=== PATIENT | female | born 1960 | race Caucasian/White ===

== ENCOUNTER 2020-09-08 10:00 | Outpatient (REF) | payer OTHER, SELFPAY ==
[2020-09-08 11:00] LABS: MANUAL DIFF FLAG NO
[2020-09-08 11:03] LABS: Basophils Absolute Auto 0.1 X10*3/uL (0.0-0.2); Basophils Percent Auto 1.3 % (0-2); Eosinophils Absolute Auto 0.6 X10*3/uL (0.0-0.4); Eosinophils Percent Auto 11.8 % (0-4); Hematocrit 38.9 % (37-47); Hemoglobin 12.1 g/dl (12.0-16.0); Imm Gran Abs Auto 0.04 X10*3/uL (0.00-0.03); Imm Gran Pct Auto 0.7 % (0.0-0.4); Lymphocytes Absolute Auto 1.2 X10*3/uL (1.2-4.9); Lymphocytes Percent Auto 22.1 % (20-40); Mean Corpuscular HGB Conc 31.1 g/dl (31.0-35.0); Mean Corpuscular Hemoglobin 29.2 pg (27.0-33.0); Mean Corpuscular Volume 93.7 fL (80-98); Mean Platelet Volume 9.7 fL (9.4-12.3); Monocytes Absolute Auto 0.4 X10*3/uL (0.1-1.2); Monocytes Percent Auto 7.7 % (2-11); Neutrophils Absolute Auto 3.1 X10*3/uL (2.0-8.3); Neutrophils Percent Auto 56.4 % (45-73); Platelet Count 312 X10*3/uL (160-400); Red Blood Count 4.15 X10*6/uL (4.20-5.50); Red Cell Distribution Width 14.2 % (11.0-16.0); White Blood Count 5.4 X10*3/uL (4.8-10.8)
[2020-09-08 11:34] LABS: Alanine Aminotransferase 19 U/L (0-31); Albumin Level 3.9 g/dL (3.5-5.0); Alkaline Phosphatase 103 U/L (39-117); Anion Gap 14 (12-20); Aspartate Amino Transferase 22 U/L (5-31); Bilirubin Total 0.3 mg/dL (0.0-1.0); Blood Urea Nitrogen 9 mg/dL (9-16); Calcium 9.2 mg/dL (8.4-10.2); Carbon Dioxide 28 mmol/L (22-29); Chloride 104 mmol/L (96-108); Cholesterol 198 mg/dL; Estimated Glomerular Filt Rate > 60; Glucose Fasting 119 mg/dL (60-99); HDL Cholesterol 44 mg/dL; LDL Cholesterol Calculated 127 mg/dl; Potassium 4.6 mmol/l (3.3-5.1); Sodium 141 mmol/L (135-145); Total Protein 6.5 g/dL (6.5-8.0); Triglycerides 135 mg/dL
[2020-09-08 12:29] LABS: TSH reflex Free T4 0.95 mIU/mL (0.32-4.0)
== END 2020-09-08 10:01 | disposition home or self-care (01) ==
LOC: HO.LAB 10:00
PROVIDERS: PCP Internal Medicine; Visit Provider Internal Medicine
DX: J44.9 Chronic obstructive pulmonary disease, unspecified (principal); E03.9 Hypothyroidism, unspecified; E66.9 Obesity, unspecified
CPT/HCPCS: 36415; 80053; 80061; 84443; 85025

== ENCOUNTER 2020-09-17 10:27 | Emergency (ER) | payer OTHER, SELFPAY ==
--- NOTE | 2020-09-17 10:38 | XR_ITS ---
EXAMINATION: XR CHEST CLINICAL INFORMATION: Dyspnea COMPARISON: Chest radiographs from 07/13/2019 through 04/01/2020. TECHNIQUE: Frontal view of the chest was obtained. FINDINGS: Exam limited due to body habitus and technique. View of the chest is slightly lordotic. The heart is top normal in size. The cardiomediastinal and hilar contours are within normal limits. There is no lobar consolidation. No large pneumothorax or pleural effusion. There is is subtly increased bandlike opacity over the right midlung and a subtle opacity at the base of the left lower lobe, possibly infiltrate. XR/XR chest 1V IMPRESSION: Limited examination due to body habitus and technique. Subtle opacities involving the mid right lung and base of the left lobe could potentially represent infection or inflammation in the appropriate clinical setting. No large effusion or pneumothorax.
--- NOTE | 2020-09-17 10:39 | ED.SOB ---
HPI - SOB/Dyspnea General Chief Complaint: Dyspnea Stated Complaint: flu like symptoms Time Seen by Provider: 09/17/20 10:37 Source: patient, EMS and chiropractic doctor Mode of arrival: EMS Limitations: no limitations History of Present Illness MD elicited complaint: shortness of breath and cough Pertinent past history: COPD and asthma Onset (ago): day(s) (yesterday) Timing: constant Severity: moderate Exacerbating factors: exertion and coughing Relieving factors: rest and bronchodilators Known history of: COPD and asthma Associated symptoms: cough, wheezing and other (body aches) Treatment prior to arrival: oxygen Related Data Home oxygen amount: 2 liters Home Medications Medication Instructions Recorded Confirmed ipratropium 0.5 mg-albuterol 3 mg 3 ml INHALATION Q4-6H PRN 08/24/20 08/24/20 (2.5 mg base)/3 mL nebulization soln oxygen-air delivery systems #1 08/24/20 08/24/20 Previous Rx's Medication Instructions Recorded propylene glycol 0.6 % eye drops 1 drp OPHTHALMIC (EYE) BID PRN 30 08/24/20 Days #5 ml Synthroid 50 mcg tablet 50 mcg PO DAILY 90 Days #90 tab NS 08/25/20 albuterol sulfate 90 mcg/actuation 2 puff INHALATION Q4-6H PRN 30 08/25/20 aerosol inhaler Days #6.7 g amitriptyline 50 mg tablet 50 mg PO BID 90 Days #180 tab 08/25/20 budesonide 0.5 mg/2 mL suspension 0.5 mg INHALATION DAILY 30 Days 08/25/20 for nebulization #60 ml fluticasone furoate 200 1 inh INHALATION DAILY 30 Days #28 08/25/20 mcg-vilanterol 25 mcg/dose ea inhalation powder montelukast 10 mg tablet 10 mg PO DAILY 90 Days #90 tab 08/25/20 clonazepam 2 mg tablet 2 mg PO DAILY 30 Days #30 tab 08/26/20 lamotrigine 200 mg tablet 200 mg PO BID 30 Days #60 tab 08/26/20 pantoprazole 40 mg tablet,delayed 40 mg PO BID 90 Days #180 tab 08/26/20 release zolpidem 10 mg tablet 10 mg PO BEDTIME PRN 30 Days #30 08/26/20 tab cefuroxime axetil 500 mg PO BID 7 Days #14 tab 09/17/20 doxycycline hyclate 100 mg PO BID 7 Days #14 cap 09/17/20 prednisone 40 mg PO DAILY 5 Days #10 tab 09/17/20 Allergies Allergy/AdvReac Type Severity Reaction Status Date / Time No Known Allergies Allergy Unverified 07/16/20 19:43 [No Known Allergies*] unknown analgesia given Allergy Unknown rash Uncoded 08/24/20 15:25 antihi Review of Systems Review of Systems: Constitutional : No Fever, pos Chills ENT/Mouth : No sore throat, No Rhinorrhea, No Swallowing Difficulty Eyes: No Eye Pain, No Swelling, No Redness Cardiovascular : No Chest Pain, positive SOB, No Orthopnea, no Edema Respiratory : pos Cough, No Sputum, pos Wheezing, positive dyspnea Gastrointestinal : No Nausea, No Vomiting, No Diarrhea, No abdominal Pain, No Hematochezia, No Melena Genitourinary : No Dysuria, No Urinary Frequency, No Hematuria Musculoskeletal : No joint pain, No Myalgias Skin : No Skin Lesions, No rash Neuro : No Weakness, No Numbness, No Dizziness, No Headache Psych : No Anxiety/Panic, No Depression Heme/Lymph: No Bruising, No Lymphadenopathy Endocrine : No Polyuria, No Polydipsia All other systems reviewed and are negative PMFSH Past Medical History Attestation statement: The following information was validated with the patient. Medical History Bipolar 1 disorder COPD (chronic obstructive pulmonary disease) Depression with anxiety GERD (gastroesophageal reflux disease) Hemangioma Hypothyroidism Hypovitaminosis D Insomnia Lumbar degenerative disc disease Obesity Oxygen dependent Surgical History History of carpal tunnel release History of section History of colonoscopy History of cystocele History of hysterectomy History of shoulder surgery History of tonsillectomy Family History Family History (Updated 08/24/20 @ 09:32 by ADRIANA Sanches) Father No problems noted. Mother No problems noted. Sister Nasopharyngeal cancer Social History Social History Smoking Status: Former smoker Tobacco Type: Cigarette Advance Directives: No Advance Directives Information Provided: Yes Physical Exam Vital Signs: Vital Signs: Last Vital Signs Temp 98.6 F 09/17/20 10:41 Pulse 106 H 09/17/20 10:58 Resp 18 09/17/20 10:41 BP 111/71 09/17/20 10:41 Pulse Ox 100 09/17/20 10:41 Body Mass Index 46.6 Appearance: Alert. Oriented X3. No acute distress. Eyes: Pupils equal, round and reactive to light. ENT: Pharynx normal. Neck: Normal inspection. Neck supple. CVS: Normal heart rate and rhythm. Pulses normal. Respiratory: No respiratory distress. Breath sounds diminished Abdomen: Soft and nontender. Skin: Skin warm and dry. Normal skin color. Normal skin turgor. Extremities: No lower extremity edema. No calf ttp Neuro: Oriented X 3. No motor deficit. No sensory deficit. Course Course Course Narrative: no hypoxia, negative lactic acid, no resp distress, start on antibiotics and DC home with steroids MDM - SOB/Dyspnea MDM Narrative Medical decision making narrative: 60 yo female with hx of COPD on home O2 100% on baseline O2 - here with cough, body aches, not feeling well x 1 day at this time will need labs, steroids, neb, CXR, COVID swab, dispo per results and findings, no resp distress, no increaed O2 requirement. Lab Data Result diagrams: 09/17/20 11:49 09/17/20 11:49 Labs: Lab Results 09/17/20 09/17/20 09/17/20 Range/Units 11:40 11:48 11:48 WBC (4.8-10.8) X10*3/uL RBC (4.20-5.50) X10*6/uL Hgb (12.0-16.0) g/dl Hct (37-47) % MCV (80-98) fL MCH (27.0-33.0) pg MCHC (31.0-35.0) g/dl RDW (11.0-16.0) % Plt Count (160-400) X10*3/uL MPV (9.4-12.3) fL Immature Gran % (Auto) (0.0-0.4) % Neut % (Auto) (45-73) % Lymph % (Auto) (20-40) % [place] % (Auto) (2-11) % Eos % (Auto) (0-4) % Baso % (Auto) (0-2) % Lymph # (Auto) (1.2-4.9) X10*3/uL [place] # (Auto) (0.1-1.2) X10*3/uL Eos # (Auto) (0.0-0.4) X10*3/uL Baso # (Auto) (0.0-0.2) X10*3/uL Abs Immat Gran (auto) (0.00-0.03) X10*3/uL Absolute Neuts (auto) (2.0-8.3) X10*3/uL Absolute Nucleated RBC (0.0-0.012) X10*3/uL Nucleated RBC % (auto) (0.0-0.2) /100WBC Hold Blue Top SEE NOTE Sodium (135-145) mmol/L Potassium (3.3-5.1) mmol/l Chloride (96-108) mmol/L Carbon Dioxide (22-29) mmol/L Anion Gap (12-20) BUN (9-16) mg/dL Creatinine (0.5-1.4) mg/dL Estim Creat Clear Calc Estimated GFR Random Glucose (60-115) mg/dL Lactic Acid (0.5-2.0) mmol/L Calcium (8.4-10.2) mg/dL Magnesium 2.0 (1.6-2.6) mg/dL Total Bilirubin < 0.2 (0.0-1.0) mg/dL Direct Bilirubin < 0.2 (0.0-0.5) mg/dL AST 16 (5-31) U/L ALT 16 (0-31) U/L Alkaline Phosphatase 104 (39-117) U/L Troponin I High Sens (<3.5-17.0) ng/L Total Protein 6.5 (6.5-8.0) g/dL Albumin 3.9 (3.5-5.0) g/dL Lipase 25 (8-78) U/L Coronavirus (PCR) NEGATIVE (Negative) Influenza Type A (PCR) NEGATIVE (Negative) Influenza Type B (PCR) NEGATIVE (Negative) RSV RNA Qual (PCR) NEGATIVE (Negative) 09/17/20 09/17/20 09/17/20 Range/Units 11:48 11:48 11:49 WBC 6.1 (4.8-10.8) X10*3/uL RBC 4.20 (4.20-5.50) X10*6/uL Hgb 12.1 (12.0-16.0) g/dl Hct 39.8 (37-47) % MCV 94.8 (80-98) fL MCH 28.8 (27.0-33.0) pg MCHC 30.4 L (31.0-35.0) g/dl RDW 14.3 (11.0-16.0) % Plt Count 287 (160-400) X10*3/uL MPV 9.4 (9.4-12.3) fL Immature Gran % (Auto) 0.7 H (0.0-0.4) % Neut % (Auto) 58.4 (45-73) % Lymph % (Auto) 22.8 (20-40) % [place] % (Auto) 6.7 (2-11) % Eos % (Auto) 10.3 H (0-4) % Baso % (Auto) 1.1 (0-2) % Lymph # (Auto) 1.4 (1.2-4.9) X10*3/uL [place] # (Auto) 0.4 (0.1-1.2) X10*3/uL Eos # (Auto) 0.6 H (0.0-0.4) X10*3/uL Baso # (Auto) 0.1 (0.0-0.2) X10*3/uL Abs Immat Gran (auto) 0.04 H (0.00-0.03) X10*3/uL Absolute Neuts (auto) 3.6 (2.0-8.3) X10*3/uL Absolute Nucleated RBC 0.000 (0.0-0.012) X10*3/uL Nucleated RBC % (auto) 0.0 (0.0-0.2) /100WBC Hold Blue Top Sodium (135-145) mmol/L Potassium (3.3-5.1) mmol/l Chloride (96-108) mmol/L Carbon Dioxide (22-29) mmol/L Anion Gap (12-20) BUN (9-16) mg/dL Creatinine (0.5-1.4) mg/dL Estim Creat Clear Calc Estimated GFR Random Glucose (60-115) mg/dL Lactic Acid 2.0 (0.5-2.0) mmol/L Calcium (8.4-10.2) mg/dL Magnesium (1.6-2.6) mg/dL Total Bilirubin (0.0-1.0) mg/dL Direct Bilirubin (0.0-0.5) mg/dL AST (5-31) U/L ALT (0-31) U/L Alkaline Phosphatase (39-117) U/L Troponin I High Sens < 3.5 (<3.5-17.0) ng/L Total Protein (6.5-8.0) g/dL Albumin (3.5-5.0) g/dL Lipase (8-78) U/L Coronavirus (PCR) (Negative) Influenza Type A (PCR) (Negative) Influenza Type B (PCR) (Negative) RSV RNA Qual (PCR) (Negative) 09/17/20 Range/Units 11:49 WBC (4.8-10.8) X10*3/uL RBC (4.20-5.50) X10*6/uL Hgb (12.0-16.0) g/dl Hct (37-47) % MCV (80-98) fL MCH (27.0-33.0) pg MCHC (31.0-35.0) g/dl RDW (11.0-16.0) % Plt Count (160-400) X10*3/uL MPV (9.4-12.3) fL Immature Gran % (Auto) (0.0-0.4) % Neut % (Auto) (45-73) % Lymph % (Auto) (20-40) % [place] % (Auto) (2-11) % Eos % (Auto) (0-4) % Baso % (Auto) (0-2) % Lymph # (Auto) (1.2-4.9) X10*3/uL [place] # (Auto) (0.1-1.2) X10*3/uL Eos # (Auto) (0.0-0.4) X10*3/uL Baso # (Auto) (0.0-0.2) X10*3/uL Abs Immat Gran (auto) (0.00-0.03) X10*3/uL Absolute Neuts (auto) (2.0-8.3) X10*3/uL Absolute Nucleated RBC (0.0-0.012) X10*3/uL Nucleated RBC % (auto) (0.0-0.2) /100WBC Hold Blue Top Sodium 142 (135-145) mmol/L Potassium 4.5 (3.3-5.1) mmol/l Chloride 106 (96-108) mmol/L Carbon Dioxide 30 H (22-29) mmol/L Anion Gap 11 L (12-20) BUN 12 (9-16) mg/dL Creatinine 0.90 (0.5-1.4) mg/dL Estim Creat Clear Calc 75.1 Estimated GFR > 60 Random Glucose 120 H (60-115) mg/dL Lactic Acid (0.5-2.0) mmol/L Calcium 9.0 (8.4-10.2) mg/dL Magnesium (1.6-2.6) mg/dL Total Bilirubin (0.0-1.0) mg/dL Direct Bilirubin (0.0-0.5) mg/dL AST (5-31) U/L ALT (0-31) U/L Alkaline Phosphatase (39-117) U/L Troponin I High Sens (<3.5-17.0) ng/L Total Protein (6.5-8.0) g/dL Albumin (3.5-5.0) g/dL Lipase (8-78) U/L Coronavirus (PCR) (Negative) Influenza Type A (PCR) (Negative) Influenza Type B (PCR) (Negative) RSV RNA Qual (PCR) (Negative) Discharge Plan Discharge Clinical Impression: COPD (chronic obstructive pulmonary disease) Qualifiers: COPD type: COPD with acute exacerbation Qualified Code(s): J44.1 - Chronic obstructive pulmonary disease with (acute) exacerbation Pneumonia Qualifiers: Pneumonia type: due to unspecified organism Laterality: unspecified laterality Lung location: unspecified part of lung Qualified Code(s): J18.9 - Pneumonia, unspecified organism Patient Disposition: Home, Self-Care Instructions: COPD (Chronic Obstructive Pulmonary Disease) (ED), Bacterial Pneumonia (ED) Additional Instructions: return to ED for any worsening symptoms or concerns COVID test was NEGATIVE Prescriptions: New prednisone 20 mg tablet 40 mg PO DAILY 5 Days Qty: 10 RF: 0 doxycycline hyclate 100 mg capsule 100 mg PO BID 7 Days Qty: 14 RF: 0 cefuroxime axetil 500 mg tablet 500 mg PO BID 7 Days Qty: 14 RF: 0 No Action albuterol sulfate 90 mcg/actuation HFA aerosol inhaler 2 puff inhalation Q4-6H PRN (Reason: bronchospasm) 30 Days Qty: 6.7 RF: 11 amitriptyline 50 mg tablet 50 mg PO BID 90 Days Qty: 180 RF: 3 budesonide [Pulmicort] 0.5 mg/2 mL suspension for nebulization 0.5 mg inhalation DAILY 30 Days Qty: 60 RF: 11 Breo Ellipta 200-25 mcg/dose blister with device 1 inh inhalation DAILY 30 Days Qty: 28 RF: 11 montelukast [Singulair] 10 mg tablet 10 mg PO DAILY 90 Days Qty: 90 RF: 3 levothyroxine [Synthroid] 50 mcg tablet 50 mcg PO DAILY 90 Days Qty: 90 RF: 1 zolpidem [Ambien] 10 mg tablet 10 mg PO BEDTIME PRN (Reason: sleep) 30 Days Qty: 30 RF: 0 lamotrigine [Lamictal] 200 mg tablet 200 mg PO BID 30 Days Qty: 60 RF: 11 clonazepam 2 mg tablet 2 mg PO DAILY 30 Days Qty: 30 RF: 0 pantoprazole [Protonix] 40 mg tablet,delayed release (DR/EC) 40 mg PO BID 90 Days Qty: 180 RF: 3 (DME) oxygen-air delivery systems Device See Rx Instructions .ROUTE .MEDSUPPLY Qty: 1 RF: 0 ipratropium-albuterol 0.5 mg-3 mg(2.5 mg base)/3 mL solution for nebulization 3 ml inhalation Q4-6H PRNRF: 0 Systane Complete 0.6 % drops 1 drp ophthalmic (eye) BID PRN (Reason: dry eye(s)) 30 Days Qty: 5 RF: 11 Referrals: Physician,Unknown [Primary Care Provider] - 2 days (if not better) Print Language: Upper Sorbian
[2020-09-17 10:41] VITALS: BP 111/71; BP 122/80; PULSE 97; RESP 18; TEMP 37; O2SAT 100; O2SAT 98; BMI 46.6
[2020-09-17] MEDS: Albuterol Sulfate (0.083%) 2.5 MG/3 ML VIAL.NEB 5 MG INHALE (10:57)
[2020-09-17 10:58] VITALS: PULSE 106; O2SAT 100
[2020-09-17 11:57] LABS: MANUAL DIFF FLAG NO
[2020-09-17 12:00] LABS: Basophils Absolute Auto 0.1 X10*3/uL (0.0-0.2); Basophils Percent Auto 1.1 % (0-2); Eosinophils Absolute Auto 0.6 X10*3/uL (0.0-0.4); Eosinophils Percent Auto 10.3 % (0-4); Hematocrit 39.8 % (37-47); Hemoglobin 12.1 g/dl (12.0-16.0); Imm Gran Abs Auto 0.04 X10*3/uL (0.00-0.03); Imm Gran Pct Auto 0.7 % (0.0-0.4); Lymphocytes Absolute Auto 1.4 X10*3/uL (1.2-4.9); Lymphocytes Percent Auto 22.8 % (20-40); Mean Corpuscular HGB Conc 30.4 g/dl (31.0-35.0); Mean Corpuscular Hemoglobin 28.8 pg (27.0-33.0); Mean Corpuscular Volume 94.8 fL (80-98); Mean Platelet Volume 9.4 fL (9.4-12.3); Monocytes Absolute Auto 0.4 X10*3/uL (0.1-1.2); Monocytes Percent Auto 6.7 % (2-11); Neutrophils Absolute Auto 3.6 X10*3/uL (2.0-8.3); Neutrophils Percent Auto 58.4 % (45-73); Platelet Count 287 X10*3/uL (160-400); Red Cell Distribution Width 14.3 % (11.0-16.0); White Blood Count 6.1 X10*3/uL (4.8-10.8)
[2020-09-17 12:26] LABS: Anion Gap 11 (12-20); Blood Urea Nitrogen 12 mg/dL (9-16); Carbon Dioxide 30 mmol/L (22-29); Chloride 106 mmol/L (96-108); Creatinine Clr Calc Pharmacy 75.1; Estimated Glomerular Filt Rate > 60; Glucose Random 120 mg/dL (60-115); Potassium 4.5 mmol/l (3.3-5.1); Sodium 142 mmol/L (135-145)
[2020-09-17 12:29] LABS: Alanine Aminotransferase 16 U/L (0-31); Albumin Level 3.9 g/dL (3.5-5.0); Alkaline Phosphatase 104 U/L (39-117); Aspartate Amino Transferase 16 U/L (5-31); Bilirubin Direct < 0.2 mg/dL (0.0-0.5); Bilirubin Total < 0.2 mg/dL (0.0-1.0); Lipase 25 U/L (8-78); Total Protein 6.5 g/dL (6.5-8.0)
[2020-09-17 12:31] LABS: Troponin-I High Sensitivity < 3.5 ng/L (<3.5-17.0)
[2020-09-17 12:40] LABS: Influenza A PCR NEGATIVE (Negative); Influenza B PCR NEGATIVE (Negative); Resp Syncy Virus RNA Qual PCR NEGATIVE (Negative); SARS COV2 PCR INHOUSE NEGATIVE (Negative)
[2020-09-17 13:50] VITALS: BP 122/88; PULSE 99; RESP 18; TEMP 37
--- NOTE | 2020-09-17 13:50 | PC.NURSE ---
per md, ok to discharge patient without administering meds. no IV access, tough stick.
[2020-09-17 14:35] LABS: B Type Natriuretic Peptide < 10 pg/mL (<100)
== END 2020-09-17 13:52 | disposition home or self-care (01) ==
PROVIDERS: Emergency Provider Emergency Medicine
DX: J18.9 Pneumonia, unspecified organism (principal); J44.1 Chronic obstructive pulmonary disease with (acute) exacerbation; R06.00 Dyspnea, unspecified; Z79.899 Other long term (current) drug therapy; Z20.828 Contact with and (suspected) exposure to other viral communicable diseases; Z87.891 Personal history of nicotine dependence
CPT/HCPCS: 0241U; 36415; 71045; 80048; 80076; 83605; 83690; 83735; 83880; 84484; 85025; 87040; 94640; 96365; 96375; 99284

== ENCOUNTER 2020-09-29 09:51 | Outpatient (REF) | payer OTHER, SELFPAY ==
--- NOTE | 2020-09-29 10:32 | XR_ITS ---
EXAMINATION: XR CHEST CLINICAL INFORMATION: Pneumonia. COMPARISON: Chest 09/17/2020 TECHNIQUE: 2 views of the chest were obtained. FINDINGS: No significant abnormality is noted involving the heart, lungs, mediastinum, bony thorax or soft tissues. XR/XR chest 2V IMPRESSION: Unremarkable chest examination.
[2020-09-29 11:20] LABS: Alanine Aminotransferase 20 U/L (0-31); Albumin Level 3.9 g/dL (3.5-5.0); Alkaline Phosphatase 101 U/L (39-117); Anion Gap 12 (12-20); Aspartate Amino Transferase 20 U/L (5-31); Bilirubin Total 0.4 mg/dL (0.0-1.0); Blood Urea Nitrogen 8 mg/dL (9-16); Calcium 9.3 mg/dL (8.4-10.2); Carbon Dioxide 30 mmol/L (22-29); Chloride 103 mmol/L (96-108); Cholesterol 192 mg/dL; Estimated Glomerular Filt Rate 55; Glucose Fasting 85 mg/dL (60-99); HDL Cholesterol 51 mg/dL; LDL Cholesterol Calculated 111 mg/dl; Potassium 4.6 mmol/l (3.3-5.1); Sodium 140 mmol/L (135-145); Total Protein 6.5 g/dL (6.5-8.0); Triglycerides 154 mg/dL
[2020-09-29 11:40] LABS: TSH reflex Free T4 0.87 mIU/mL (0.32-4.0)
[2020-10-03 14:07] LABS: Vitamin D 25-OH, D2 <4 ng/mL; Vitamin D 25-OH, D3 22 ng/mL; Vitamin D 25-OH, Total 22 ng/mL (30-100)
== END 2020-09-29 09:52 | disposition home or self-care (01) ==
LOC: HO.LAB 09:51
PROVIDERS: PCP Internal Medicine; Visit Provider Internal Medicine
DX: E03.9 Hypothyroidism, unspecified (principal); E66.9 Obesity, unspecified; E55.9 Vitamin D deficiency, unspecified; J18.9 Pneumonia, unspecified organism
CPT/HCPCS: 71046; 80053; 80061; 82306; 84443

== ENCOUNTER → 2020-10-12 13:29 | Outpatient (BNVA) | payer OTHER, SELFPAY | PROVIDERS: PCP Internal Medicine; Visit Provider Hospitalist | DX: J44.9 Chronic obstructive pulmonary disease, unspecified (principal); J45.909 Unspecified asthma, uncomplicated; D72.19 Other eosinophilia; Z99.81 Dependence on supplemental oxygen | CPT/HCPCS: 99212 ==

== ENCOUNTER → 2020-10-21 14:36 | Outpatient (REF) | payer OTHER, SELFPAY ==
--- NOTE | 2020-10-21 14:05 | ECG_ITS ---
Hook-up date: 2020-10-21 14:53:00 Duration: 47:59:00 Test Indications: TACHYCARDIA Medications: [id number] QRS complexes * Ventricular ectopics which represent % of total QRS comp. 8 Supraventricular ectopics which represent <1 % of total QRS comp. * Paced QRS complexs which represent % of total QRS comp. VENTRICULAR ECTOPY * Isolated * Bigeminal Cycles * Couplets * Runs * Beats in Runs * Beats LONGEST at * BPM at :: -- * Beats FASTEST at * BPM at :: -- SUPRAVENTRICULAR ECTOPY 8 Isolated 0 Couplets 0 Runs 0 Beats in Runs * Beats LONGEST at * BPM at :: -- * Beats FASTEST at * BPM at :: -- HEART RATES 94 MIN at 09:02:13 2020-10-23 107 AVG 134 MAX at 16:54:21 2020-10-22 LONGEST RR 0.6400 secs at 11:37:14 2020-10-23 S-T LEVELS Channel 1 - 128 mm at 14:53:00 2020-10-21 - 128 mm at 14:53:00 2020-10-21 Channel 2 - 128 mm at 14:53:00 2020-10-21 - 128 mm at 14:53:00 2020-10-21 Channel 3 - 128 mm at 03:41:21 -- - 128 mm at 03:41:21 Underlying rhythm is sinus; Average ventricular rate 107/min; range 94-134/min; About 87% of the time, ventricular rate >100/min; No significant ectopy, tachy or roger arrhythmias; Patient did not report any symptoms in the diary Referred By: Farideh Marquez Overread By: MONIK JUAREZ
== END ==
LOC: HO.CARD 14:36
PROVIDERS: PCP Internal Medicine; Visit Provider Internal Medicine
DX: R00.0 Tachycardia, unspecified (principal)
CPT/HCPCS: 93225; 93226

== ENCOUNTER 2020-11-05 18:39 | Outpatient (REF) | payer OTHER, SELFPAY ==
[2020-11-05 18:54] LABS: Glucose Urine UA NEG (NEG); Leukocyte Esterase Urine 1+ (NEG); Nitrite Urine NEG (NEG); PH 5.5 (5.0-8.0); Urine Blood 1+ (NEG); Urine Ketones NEG (NEG); Urine Protein NEG (NEG-TRACE)
[2020-11-05 18:58] LABS: Appearance Urine CLEAR; Color Urine YELLOW
[2020-11-05 19:13] LABS: Bacteria Urine TRACE /LPF; RBC Urine 0 /HPF (0); Squamous Epithelial Cell Urine 1+ /LPF
== END 2020-11-05 18:40 | disposition home or self-care (01) ==
LOC: HO.LNP 18:39
PROVIDERS: Visit Provider Internal Medicine
DX: R30.0 Dysuria (principal)
CPT/HCPCS: 81001; 87086

== ENCOUNTER → 2020-11-13 10:19 | Outpatient (BNVA) | payer OTHER, SELFPAY | PROVIDERS: PCP Internal Medicine; Visit Provider Urology | DX: N39.0 Urinary tract infection, site not specified (principal) | CPT/HCPCS: 81002; Q3014 ==

== ENCOUNTER 2020-11-16 14:16 | Outpatient (REF) | payer OTHER, SELFPAY ==
--- NOTE | 2020-11-16 14:24 | XR_ITS ---
EXAMINATION: XR CHEST CLINICAL INFORMATION: Shortness of breath COMPARISON: Previous chest x-ray September 2020 TECHNIQUE: 2 views of the chest were obtained. FINDINGS: The cardiac and mediastinal contours are stable. There is linear scarring or chronic subsegmental atelectasis at the left lung base that is stable. The lungs are otherwise clear. There is no pleural effusion or pneumothorax. There are degenerative changes of the spine. There is soft tissue calcification adjacent to the right humeral greater tuberosity. There are postsurgical changes left shoulder. XR/XR chest 2V IMPRESSION: No evidence for acute disease in the chest. Linear scarring or chronic subsegmental atelectasis at the left lung base similar to previous exam.
--- NOTE | 2020-11-16 14:24 | US_ITS ---
EXAMINATION: ULTRASOUND SOFT TISSUE HEAD AND NECK CLINICAL INFORMATION: Localized swelling, mass or lump COMPARISON: None TECHNIQUE: Grayscale and color imaging of the soft tissues of the neck in the submental region using a linear transducer FINDINGS: No lymphadenopathy or solid or cystic mass is appreciated. US/US soft tiss head and/or neck IMPRESSION: No abnormality appreciated by ultrasound
== END 2020-11-16 14:17 | disposition home or self-care (01) ==
LOC: HO.US 14:16
PROVIDERS: Visit Provider Internal Medicine
DX: R22.1 Localized swelling, mass and lump, neck (principal); R06.02 Shortness of breath
CPT/HCPCS: 71046; 76536

== ENCOUNTER 2020-11-17 09:36 | Outpatient (REF) | payer OTHER, SELFPAY ==
--- NOTE | 2020-11-17 | MM_ITS ---
EXAMINATION: MM SCREENING DIGITAL MAMMOGRAPHY, BILATERAL CLINICAL INFORMATION: Screening. Asymptomatic. The lifetime risk of breast cancer based on the Tyrer-Cuzick Model is 5.1%. COMPARISON: Mammography: November 12, 2019 TECHNIQUE: Digital mammography is performed in craniocaudal and mediolateral oblique views along with computer-aided detection (CAD). FINDINGS: The breasts are almost entirely fatty (ACR BI-RADS breast composition Category a). There are no significant masses, abnormal calcifications, or other abnormalities. MM/MM screening mammo BI IMPRESSION: There are no significant changes from prior study. ASSESSMENT: BI-RADS 1: Negative RECOMMENDATION: Routine annual mammography screening. This patient's information was entered into a reminder system with a target due date for their next mammogram.
== END 2020-11-17 09:37 | disposition home or self-care (01) ==
LOC: HO.MAMMO 09:36
PROVIDERS: Visit Provider Hospitalist
DX: Z12.31 Encounter for screening mammogram for malignant neoplasm of breast (principal)
CPT/HCPCS: 77067

== ENCOUNTER 2020-11-20 11:07 | Outpatient (REF) | payer OTHER, SELFPAY | END 2020-11-20 11:08 | disposition home or self-care (01) | LOC: HO.MDS 11:07 | PROVIDERS: PCP Internal Medicine; Visit Provider Hospitalist | DX: J45.50 Severe persistent asthma, uncomplicated (principal) | CPT/HCPCS: 96372; J0517 ==

== ENCOUNTER → 2020-11-24 09:57 | Outpatient (BNVA) | payer OTHER, SELFPAY | PROVIDERS: PCP Internal Medicine; Visit Provider Orthopaedic Surgery | DX: R10.13 Epigastric pain (principal); K59.01 Slow transit constipation; M65.331 Trigger finger, right middle finger; R20.0 Anesthesia of skin; R20.2 Paresthesia of skin | CPT/HCPCS: 20550; 99202; J1100; Q3014 ==

== ENCOUNTER 2020-12-08 10:07 | Outpatient (REF) | payer OTHER, SELFPAY ==
--- NOTE | ~2020-12-08 | XR_ITS ---
EXAMINATION: BILATERAL KNEES STANDING. THE RIGHT KNEE. LEFT SHOULDER. CLINICAL INFORMATION: Pain right knee and left shoulder. COMPARISON: None TECHNIQUE: AP bilateral knee 1 view. Right knee 2 views. Left shoulder 3 views. FINDINGS: On AP bilateral knee exam there is mild reduction in the medial and lateral compartment joint space both knees. No bony erosive changes seen. There is mild periapical spurring in the medial compartments. There is a dense bone islands in right proximal fibula. 2 views of the right knee there is loss in both patellofemoral compartment joint space with periarticular spurring. There is dense calcification in the infrapatellar soft tissue bursa. No abnormal joint effusion seen. No visible fracture seen. Left shoulder: There is moderate loss of lateral joint space with inferior moderate periapical spurring. Mild spurring of the left AC joint is noted. There is mild acromial inferior spurring as well. Postsurgical changes are seen along the left head of the humerus. The soft tissues are normal. XR/XR shoulder LT min 2V IMPRESSION: Mild degenerative arthritic changes in medial and lateral compartments with moderate periapical spurring in medial compartment. No abnormal joint effusion. Mild degenerative changes in the patellofemoral compartment right knee without loose bodies or joint effusion. There is infrapatellar superficial calcification likely calcific bursitis. Moderate degenerative changes left glenohumeral joint space and mild degenerative spurring left AC joint. No visible acute fracture seen.
--- NOTE | ~2020-12-08 | XR_ITS ---
EXAMINATION: BILATERAL KNEES STANDING. THE RIGHT KNEE. LEFT SHOULDER. CLINICAL INFORMATION: Pain right knee and left shoulder. COMPARISON: None TECHNIQUE: AP bilateral knee 1 view. Right knee 2 views. Left shoulder 3 views. FINDINGS: On AP bilateral knee exam there is mild reduction in the medial and lateral compartment joint space both knees. No bony erosive changes seen. There is mild periapical spurring in the medial compartments. There is a dense bone islands in right proximal fibula. 2 views of the right knee there is loss in both patellofemoral compartment joint space with periarticular spurring. There is dense calcification in the infrapatellar soft tissue bursa. No abnormal joint effusion seen. No visible fracture seen. Left shoulder: There is moderate loss of lateral joint space with inferior moderate periapical spurring. Mild spurring of the left AC joint is noted. There is mild acromial inferior spurring as well. Postsurgical changes are seen along the left head of the humerus. The soft tissues are normal. XR/XR knee RT 2V IMPRESSION: Mild degenerative arthritic changes in medial and lateral compartments with moderate periapical spurring in medial compartment. No abnormal joint effusion. Mild degenerative changes in the patellofemoral compartment right knee without loose bodies or joint effusion. There is infrapatellar superficial calcification likely calcific bursitis. Moderate degenerative changes left glenohumeral joint space and mild degenerative spurring left AC joint. No visible acute fracture seen.
--- NOTE | ~2020-12-08 | XR_ITS ---
EXAMINATION: BILATERAL KNEES STANDING. THE RIGHT KNEE. LEFT SHOULDER. CLINICAL INFORMATION: Pain right knee and left shoulder. COMPARISON: None TECHNIQUE: AP bilateral knee 1 view. Right knee 2 views. Left shoulder 3 views. FINDINGS: On AP bilateral knee exam there is mild reduction in the medial and lateral compartment joint space both knees. No bony erosive changes seen. There is mild periapical spurring in the medial compartments. There is a dense bone islands in right proximal fibula. 2 views of the right knee there is loss in both patellofemoral compartment joint space with periarticular spurring. There is dense calcification in the infrapatellar soft tissue bursa. No abnormal joint effusion seen. No visible fracture seen. Left shoulder: There is moderate loss of lateral joint space with inferior moderate periapical spurring. Mild spurring of the left AC joint is noted. There is mild acromial inferior spurring as well. Postsurgical changes are seen along the left head of the humerus. The soft tissues are normal. XR/XR knee standing BI IMPRESSION: Mild degenerative arthritic changes in medial and lateral compartments with moderate periapical spurring in medial compartment. No abnormal joint effusion. Mild degenerative changes in the patellofemoral compartment right knee without loose bodies or joint effusion. There is infrapatellar superficial calcification likely calcific bursitis. Moderate degenerative changes left glenohumeral joint space and mild degenerative spurring left AC joint. No visible acute fracture seen.
== END 2020-12-08 10:08 | disposition home or self-care (01) ==
LOC: HO.HOSX 10:07
PROVIDERS: Visit Provider Orthopaedic Surgery
DX: M25.561 Pain in right knee (principal); M25.562 Pain in left knee; M25.512 Pain in left shoulder
CPT/HCPCS: 73030; 73560; 73565

== ENCOUNTER → 2020-12-09 10:45 | Outpatient (BNVA) | payer OTHER, SELFPAY | PROVIDERS: PCP Internal Medicine; Visit Provider Orthopaedic Surgery | DX: M17.11 Unilateral primary osteoarthritis, right knee (principal); M19.012 Primary osteoarthritis, left shoulder | CPT/HCPCS: 20610; 99202; J1040 ==

== ENCOUNTER → 2020-12-17 14:12 | Outpatient (BNVA) | payer OTHER, SELFPAY | PROVIDERS: PCP Internal Medicine; Visit Provider Hospitalist | DX: Z76.89 Persons encountering health services in other specified circumstances (principal) | CPT/HCPCS: Q3014 ==

== ENCOUNTER 2020-12-21 12:22 | Outpatient (REF) | payer OTHER, SELFPAY | END 2020-12-21 12:23 | disposition home or self-care (01) | LOC: HO.MDS 12:22 | PROVIDERS: PCP Internal Medicine; Visit Provider Hospitalist | DX: J45.50 Severe persistent asthma, uncomplicated (principal) | CPT/HCPCS: 96372; J0517 ==

== ENCOUNTER 2020-12-25 13:48 | Outpatient (REF) | payer OTHER, SELFPAY ==
--- NOTE | ~2020-12-25 | XR_ITS ---
EXAMINATION: XR CHEST CLINICAL INFORMATION: Shortness of breath with cough COMPARISON: November 16, 2020, September 29, 2020, and April 01, 2020. TECHNIQUE: 2 views of the chest were obtained. FINDINGS: There is linear scarring seen about the left base. No acute parenchymal disease, pneumothorax, or pleural effusion. Heart normal size. No evidence of pulmonary edema. Calcific tendinitis of the right shoulder is noted. Patient status post previous left shoulder pain with metallic anchor identified. XR/XR chest 2V IMPRESSION: No acute disease.
== END 2020-12-25 13:49 | disposition home or self-care (01) ==
LOC: HO.HMGCX 13:48
PROVIDERS: PCP Internal Medicine; Visit Provider Hospitalist
DX: R06.02 Shortness of breath (principal); R05 Cough
CPT/HCPCS: 71046

== ENCOUNTER → 2021-01-04 08:17 | Outpatient (REF) | payer OTHER, SELFPAY ==
--- NOTE | ~2021-01-04 | NM_ITS ---
PROCEDURE: [place] RADIONUCLIDE SOLID FOOD GASTRIC EMPTYING 4-HOUR STUDY CLINICAL INFORMATION: Early satiety. COMPARISON: None TECHNIQUE: A standard meal consisting of 4 oz of Egg Beaters brand tagged with 1 mCi Tc-99m Sulfur Colloid, 8 oz water and 2 slices of toast with jelly was administered orally to the patient. Images were obtained using a dual head gamma camera in the anterior and posterior projections over of the stomach immediately postingestion and at hourly intervals up to 4 hours post ingestion. The anterior and posterior counts at each time interval were averaged using the geometric mean and expressed as percentage of the immediate postingestion counts. FINDINGS: There is good visualization of activity in the stomach immediately postingestion. As the study progresses, there is good clearance of activity from the stomach and visualization of progressively increasing small bowel activity. By the end of the study, there is almost no retention noted in the stomach. Retention in the stomach at each time interval was: 1 hour 100% (normal 37%-90%) 2 hours 67% (normal 30%-60%) 3 hours 47% 4 hours 40% (normal 0%-10%) [place] gastric emptying study IMPRESSION: Abnormal solid food gastric emptying study.
== END ==
LOC: HO.NUCMED 08:17
PROVIDERS: Visit Provider Internal Medicine Gastroenterology
DX: R68.81 Early satiety (principal)
CPT/HCPCS: 78264; A9541

== ENCOUNTER 2021-01-07 17:01 | Emergency (ER) | payer OTHER, SELFPAY ==
--- NOTE | ~2021-01-07 | CT_ITS ---
EXAMINATION: CTA CHEST PE STUDY CLINICAL INFORMATION: covid + and tachy COMPARISON: No pertinent prior studies are available for comparison. TECHNIQUE: Prior to contrast administration, noncontrast localization images were obtained. After the administration of 70 mL of Omnipaque 350 IV contrast, contiguous thin slice helical images were obtained through the thorax. Reformatted MIP images in the coronal and sagittal planes were obtained at the acquisition workstation. This CT examination was performed using dose optimization techniques as appropriate, variously including the following: *Automated exposure control *Adjustment of mA and/or kV according to patient size (this includes techniques or standardized protocols for targeted exams where dose is matched to indication/reason for exam; i.e. extremities or head) *Use of iterative reconstruction technique DLP: 483 mGy-cm. FINDINGS: The bolus timing on this study was acceptable for visualization of the pulmonary arterial tree. There are no intraluminal pulmonary arterial filling defects present to suggest pulmonary embolism. Patchy bilateral airspace disease is seen consistent with underlying viral or atypical infectious etiology. Calcified granuloma noted at the right lung base.. No abnormal pulmonary nodules or masses are appreciated. No significant hilar or mediastinal adenopathy. There is no evidence of pleural effusion or pneumothorax. The heart is normal in size. No evidence of ventricular septal bowing or right heart strain. Great vessels are normal. Otherwise the mediastinum is unremarkable. There is no pericardial effusion or pericardial thickening. Limited evaluation of the upper abdominal viscera demonstrates fatty infiltration of the liver.. CT/CT angio chest PE protocol IMPRESSION: No evidence for pulmonary . Patchy bilateral airspace disease with groundglass peripheral predominance suggesting underlying viral or atypical infection. VTE: Negative
--- NOTE | ~2021-01-07 | XR_ITS ---
EXAMINATION: PORTABLE CHEST 1 VIEW CLINICAL INFORMATION: sob, cough . COMPARISON: 12/25/2020. TECHNIQUE: Portable frontal view of the chest was obtained. FINDINGS: Lungs mildly hypoexpanded with patchy bilateral airspace disease seen more so in the left upper lobe. Early infectious etiology would be suspected in the acute setting. No significant effusion, edema, or pneumothorax. Cardiac and mediastinal silhouettes within normal limits for size. Metallic hardware overlying the left humeral head again noted. XR/XR chest 1V IMPRESSION: Hypoexpanded lungs with patchy bilateral airspace disease seen more so in the left upper lobe. This is more than I would expect for atelectasis alone. Early infectious etiology would be suspected. Clinical correlation and follow-up chest x-ray may be helpful.
[2021-01-07 17:17] VITALS: BP 135/71; BP 136/75; PULSE 113; PULSE 120; RESP 20; TEMP 36.8; O2SAT 97; BMI 37.8
[2021-01-07 17:54] LABS: MANUAL DIFF FLAG NO
[2021-01-07 17:58] LABS: COVID-19 Test Positive (Negative)
[2021-01-07 18:17] LABS: Alanine Aminotransferase 20 U/L (0-31); Albumin Level 3.7 g/dL (3.5-5.0); Alkaline Phosphatase 100 U/L (39-117); Anion Gap 11 (12-20); Aspartate Amino Transferase 27 U/L (5-31); Bilirubin Total 0.3 mg/dL (0.0-1.0); Blood Urea Nitrogen 10 mg/dL (9-16); Carbon Dioxide 27 mmol/L (22-29); Chloride 104 mmol/L (96-108); Creatinine Clr Calc Pharmacy 73.8; Estimated Glomerular Filt Rate > 60; Glucose Random 113 mg/dL (60-115); Sodium 138 mmol/L (135-145); Total Protein 6.2 g/dL (6.5-8.0)
[2021-01-07 18:18] LABS: Basophils Percent Auto 0.2 % (0-2); Hematocrit 35.9 % (37-47); Hemoglobin 11.5 g/dl (12.0-16.0); Imm Gran Abs Auto 0.02 X10*3/uL (0.00-0.03); Imm Gran Pct Auto 0.3 % (0.0-0.4); Lymphocytes Absolute Auto 0.8 X10*3/uL (1.2-4.9); Mean Corpuscular Hemoglobin 29.2 pg (27.0-33.0); Mean Corpuscular Volume 91.1 fL (80-98); Mean Platelet Volume 9.5 fL (9.4-12.3); Monocytes Absolute Auto 0.3 X10*3/uL (0.1-1.2); Monocytes Percent Auto 4.2 % (2-11); Neutrophils Absolute Auto 5.3 X10*3/uL (2.0-8.3); Neutrophils Percent Auto 82.3 % (45-73); Platelet Count 238 X10*3/uL (160-400); Red Blood Count 3.94 X10*6/uL (4.20-5.50); Red Cell Distribution Width 14.6 % (11.0-16.0); White Blood Count 6.4 X10*3/uL (4.8-10.8)
[2021-01-07 18:44] VITALS: BP 145/109; PULSE 113; RESP 22; TEMP 37.8; O2SAT 100
--- NOTE | 2021-01-07 19:02 | ED.SOB ---
HPI - SOB/Dyspnea General Chief Complaint: Dyspnea Stated Complaint: COPD EXACERBATION Time Seen by Provider: 01/07/21 18:49 Source: patient Limitations: language barrier History of Present Illness HPI Narrative: Patient is a 60-year-old Nepali-speaking female with a past medical history of COPD on 2-3 L of oxygen at home, diabetes, lupus, tachycardia, obesity, GERD, hypothyroidism, depression, anxiety and that a degenerative disc disease presents with 2 weeks of shortness of breath and cough. Patient states 2 weeks ago she was diagnosed with bronchitis and given steroids and antibiotics. She states she took both medications in full but feels her shortness of breath is worsening. She denies fever, chills, nausea, vomiting, diarrhea, loss of sense of taste or loss of sense of smell. Patient states she checks her blood pressure and her oxygen and heart rate every day and when she has tachycardia, she takes metoprolol. Related Data Home Medications Medication Instructions Recorded Confirmed ipratropium 0.5 mg-albuterol 3 mg 3 ml INHALATION Q4-6H PRN 08/24/20 12/17/20 (2.5 mg base)/3 mL nebulization soln oxygen-air delivery systems #1 08/24/20 12/17/20 amitriptyline 100 mg tablet 100 mg PO BEDTIME 12/17/20 12/17/20 linaclotide 145 mcg capsule 145 mcg PO QAM 12/17/20 12/17/20 liraglutide 0.6 mg/0.1 mL (18 mg/3 mg SUBCUT 12/17/20 12/17/20 mL) subcutaneous pen injector doxycycline hyclate 100 mg tablet 100 mg PO BID 12/31/20 prednisone 20 mg tablet 20 mg PO BID 12/31/20 Previous Rx's Medication Instructions Recorded propylene glycol 0.6 % eye drops 1 drp OPHTHALMIC (EYE) BID PRN 30 08/24/20 Days #5 ml Synthroid 50 mcg tablet 50 mcg PO DAILY 90 Days #90 tab NS 08/25/20 amitriptyline 50 mg tablet 50 mg PO BID 90 Days #180 tab 08/25/20 budesonide 0.5 mg/2 mL suspension 0.5 mg INHALATION DAILY 30 Days 08/25/20 for nebulization #60 ml montelukast 10 mg tablet 10 mg PO DAILY 90 Days #90 tab 10/27/20 lamotrigine 200 mg tablet 200 mg PO BID 30 Days #60 tab 08/26/20 pantoprazole 40 mg tablet,delayed 40 mg PO BID 90 Days #180 tab 08/26/20 release blood-glucose meter #1 ea 09/22/20 bupropion HCl 300 mg 24 hr tablet, 300 mg PO QAM 90 Days #90 tab 09/22/20 extended release benralizumab 30 mg/mL subcutaneous See Rx Instructions SUBCUT 10/21/20 syringe .COMPLEX #1 syringe albuterol sulfate 90 mcg/actuation 2 puff INHALATION Q4-6H PRN 30 10/26/20 aerosol inhaler Days #6.7 g fluticasone furoate 200 1 inh INHALATION DAILY 30 Days #28 10/27/20 mcg-vilanterol 25 mcg/dose ea inhalation powder ciprofloxacin HCl 250 mg tablet 250 mg PO Q12H 7 Days #14 tab 11/05/20 ascorbic acid (vitamin C) 500 mg 0.5 g PO DAILY 90 Days #90 tab 11/13/20 tablet shower seat #1 ea 11/23/20 wheelchair #1 ea 11/23/20 cephalexin 750 mg capsule 750 mg PO BID 14 Days #28 cap 11/24/20 clonazepam 2 mg tablet 2 mg PO BEDTIME PRN 30 Days #30 tab 11/26/20 gabapentin 400 mg capsule 400 mg PO BID 30 Days #60 cap 11/26/20 zolpidem 10 mg tablet 10 mg PO BEDTIME PRN 30 Days #30 11/26/20 tab cephalexin 500 mg capsule 500 mg PO TID 14 Days #42 cap 11/27/20 miscellaneous medical supply #1 ea 12/22/20 acetaminophen 650 mg 650 mg PO Q12H PRN 10 Days #20 tab 12/31/20 tablet,extended release dextromethorphan-guaifenesin 30 1 tab PO Q12H PRN 10 Days #20 tab 12/31/20 mg-600 mg tablet extended [id number] hr lubiprostone 24 mcg capsule 24 mcg PO BID #60 cap 12/31/20 metaxalone 400 mg tablet 800 mg PO TID PRN 10 Days #30 tab 12/31/20 Allergies Allergy/AdvReac Type Severity Reaction Status Date / Time unknown analgesia given Allergy Severe rash Uncoded 12/17/20 14:18 antihi Review of Systems Review of Systems: Yes all other systems are reviewed and are negative [facility] Past Medical History Medical History Asthma-COPD overlap syndrome Bipolar 1 disorder COPD (chronic obstructive pulmonary disease) Depression with anxiety Diabetes Eosinophilia GERD (gastroesophageal reflux disease) Hemangioma Hypothyroidism Hypovitaminosis D Insomnia Lumbar degenerative disc disease Lupus Lupus (systemic lupus erythematosus) Neck mass Obesity Oxygen dependent Polyarthralgia Recurrent UTI Severe asthma Tachycardia Trigger finger of right hand Surgical History History of carpal tunnel release History of section History of colonoscopy History of cystocele History of hysterectomy History of shoulder surgery History of tonsillectomy Family History Family History Father No problems noted. Mother No problems noted. Sister Nasopharyngeal cancer Social History Social History Household Members: None Alcohol intake: never Smoking Status: Former smoker Tobacco Type: Cigarette Advance Directives: No Advance Directives Information Provided: Yes Current occupational status: disabled Current occupation: right and left handed--- HAS [employer] Physical Exam Vital Signs: Vital Signs: Last Vital Signs Temp 100.1 F 01/07/21 18:44 Pulse 113 H 01/07/21 18:44 Resp 22 H 01/07/21 18:44 BP 145/109 H 01/07/21 18:44 Pulse Ox 100 01/07/21 18:44 Body Mass Index 37.8 Const: General: cooperative, healthy appearing, comfortable, no acute distress and well developed Orientation/consciousness: patient oriented x3 Limitations: no limitations HENMT: Head: Yes normal to inspection Eyes: General: appearance normal, both eyes and all related structures Neck: Neck: Yes normal visual inspection and Yes full ROM Resp: Effort & Inspection: normal respiratory effort and able to speak in complete sentences Auscultation: clear to auscultation bilaterally Cardio: Rate: regular rate Rhythm: regular rhythm Heart sounds: normal S1 and S2 GI: Inspection: Yes normal to inspection Palpation (GI): Soft to palpation and nontender Skin: General skin exam: no rashes or lesions noted Neuro: General: patient oriented x3 Extrem: General: Yes normal to inspection Course Course Course Narrative: Patient is a 60-year-old Nepali-speaking female with a past medical history of COPD on 2-3 L of oxygen at home, diabetes, lupus, tachycardia, obesity, GERD, hypothyroidism, depression, anxiety and that a degenerative disc disease presents with 2 weeks of shortness of breath and cough. Patient is tachycardic at 01:13, is satting 100% on 2 L nasal cannula and has a slightly elevated respiratory rate at 22, blood pressure 145/109. Patient is nontoxic appearing and speaks easily with the advertising analyst and myself. Patient states her baseline is being slightly tachycardic between 101 20, despite this since she did test positive for COVID today I will do a CTA to rule out a PE. Patient has been eating and drinking and appears well hydrated, as long as everything is negative in the labs look good, are likely discharge home. Reevaluation(s) Reevaluation #1: CTA negative for PE. Labs at patients baseline, will discharge home. Pt needs ambulance ordered. Time: 20:47 MDM - SOB/Dyspnea Medical Records Attestation: I reviewed the patient's medical records. Lab Data Attestation: I reviewed the patient's lab results. Result diagrams: 01/07/21 17:48 01/07/21 17:48 Labs: Lab Results 01/07/21 01/07/21 01/07/21 Range/Units 17:31 17:48 17:48 WBC 6.4 (4.8-10.8) X10*3/uL RBC 3.94 L (4.20-5.50) X10*6/uL Hgb 11.5 L (12.0-16.0) g/dl Hct 35.9 L (37-47) % MCV 91.1 (80-98) fL MCH 29.2 (27.0-33.0) pg MCHC 32.0 (31.0-35.0) g/dl RDW 14.6 (11.0-16.0) % Plt Count 238 (160-400) X10*3/uL MPV 9.5 (9.4-12.3) fL Immature Gran % (Auto) 0.3 (0.0-0.4) % Neut % (Auto) 82.3 H (45-73) % Lymph % (Auto) 13.0 L (20-40) % [place] % (Auto) 4.2 (2-11) % Eos % (Auto) 0.0 (0-4) % Baso % (Auto) 0.2 (0-2) % Lymph # (Auto) 0.8 L (1.2-4.9) X10*3/uL [place] # (Auto) 0.3 (0.1-1.2) X10*3/uL Eos # (Auto) 0.0 (0.0-0.4) X10*3/uL Baso # (Auto) 0.0 (0.0-0.2) X10*3/uL Abs Immat Gran (auto) 0.02 (0.00-0.03) X10*3/uL Absolute Neuts (auto) 5.3 (2.0-8.3) X10*3/uL Absolute Nucleated RBC 0.000 (0.0-0.012) X10*3/uL Nucleated RBC % (auto) 0.0 (0.0-0.2) /100WBC Hold Purple Top SEE NOTE Hold Blue Top Sodium (135-145) mmol/L Potassium (3.3-5.1) mmol/L Chloride (96-108) mmol/L Carbon Dioxide (22-29) mmol/L Anion Gap (12-20) BUN (9-16) mg/dL Creatinine (0.5-1.4) mg/dL Estim Creat Clear Calc Estimated GFR Random Glucose (60-115) mg/dL Calcium (8.4-10.2) mg/dL Total Bilirubin (0.0-1.0) mg/dL AST (5-31) U/L ALT (0-31) U/L Alkaline Phosphatase (39-117) U/L Total Protein (6.5-8.0) g/dL Albumin (3.5-5.0) g/dL COVID-19 (ABBIE) Positive A (Negative) COVID-19 Clin Com See Note 01/07/21 01/07/21 Range/Units 17:48 17:48 WBC (4.8-10.8) X10*3/uL RBC (4.20-5.50) X10*6/uL Hgb (12.0-16.0) g/dl Hct (37-47) % MCV (80-98) fL MCH (27.0-33.0) pg MCHC (31.0-35.0) g/dl RDW (11.0-16.0) % Plt Count (160-400) X10*3/uL MPV (9.4-12.3) fL Immature Gran % (Auto) (0.0-0.4) % Neut % (Auto) (45-73) % Lymph % (Auto) (20-40) % [place] % (Auto) (2-11) % Eos % (Auto) (0-4) % Baso % (Auto) (0-2) % Lymph # (Auto) (1.2-4.9) X10*3/uL [place] # (Auto) (0.1-1.2) X10*3/uL Eos # (Auto) (0.0-0.4) X10*3/uL Baso # (Auto) (0.0-0.2) X10*3/uL Abs Immat Gran (auto) (0.00-0.03) X10*3/uL Absolute Neuts (auto) (2.0-8.3) X10*3/uL Absolute Nucleated RBC (0.0-0.012) X10*3/uL Nucleated RBC % (auto) (0.0-0.2) /100WBC Hold Purple Top Hold Blue Top SEE NOTE Sodium 138 (135-145) mmol/L Potassium 4.0 (3.3-5.1) mmol/L Chloride 104 (96-108) mmol/L Carbon Dioxide 27 (22-29) mmol/L Anion Gap 11 L (12-20) BUN 10 (9-16) mg/dL Creatinine 0.81 (0.5-1.4) mg/dL Estim Creat Clear Calc 73.8 Estimated GFR > 60 Random Glucose 113 (60-115) mg/dL Calcium 8.0 L D (8.4-10.2) mg/dL Total Bilirubin 0.3 (0.0-1.0) mg/dL AST 27 (5-31) U/L ALT 20 (0-31) U/L Alkaline Phosphatase 100 (39-117) U/L Total Protein 6.2 L (6.5-8.0) g/dL Albumin 3.7 (3.5-5.0) g/dL COVID-19 (ABBIE) (Negative) COVID-19 Clin Com Imaging Data CT scan - chest: Attestation: I personally reviewed and interpreted this imaging study as follows: My impression: no acute pathology no PE Radiologist's impression: [facility] [place] [id number] Scan ReportSigned Patient: Aston Silva#: [id number]: [id number]:[id number]/Sex: 60 / FADM Date: 01/07/21Loc: HO.EDAttending Dr: Ordering Physician: Zeinab Barr PA-C Date of Service: 01/07/21 Procedure(s): CT angio chest PE protocol Accession Number(s): [id number] cc: Zeinab Barr PA-C~ EXAMINATION: CTA CHEST PE STUDY CLINICAL INFORMATION: covid + and tachy COMPARISON: No pertinent prior studies are available for comparison. TECHNIQUE: Prior to contrast administration, noncontrast localization images were obtained. After the administration of 70 mL of Omnipaque 350 IV contrast, contiguous thin slice helical images were obtained through the thorax. Reformatted MIP images in the coronal and sagittal planes were obtained at the acquisition workstation. This CT examination was performed using dose optimization techniques as appropriate, variously including the following: *Automated exposure control *Adjustment of mA and/or kV according to patient size (this includes techniques or standardized protocols for targeted exams where dose is matched to indication/reason for exam; i.e. extremities or head) *Use of iterative reconstruction technique DLP: 483 mGy-cm. FINDINGS: The bolus timing on this study was acceptable for visualization of the pulmonary arterial tree. There are no intraluminal pulmonary arterial filling defects present to suggest pulmonary embolism. Patchy bilateral airspace disease is seen consistent with underlying viral or atypical infectious etiology. Calcified granuloma noted at the right lung base.. No abnormal pulmonary nodules or masses are appreciated. No significant hilar or mediastinal adenopathy. There is no evidence of pleural effusion or pneumothorax. The heart is normal in size. No evidence of ventricular septal bowing or right heart strain. Great vessels are normal. Otherwise the mediastinum is unremarkable. There is no pericardial effusion or pericardial thickening. Limited evaluation of the upper abdominal viscera demonstrates fatty infiltration of the liver.. CT/CT angio chest PE protocol IMPRESSION: No evidence for pulmonary . Patchy bilateral airspace disease with groundglass peripheral predominance suggesting underlying viral or atypical infection. 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: [place] Discharge Plan Discharge Prescriptions: No Action amitriptyline 50 mg tablet 50 mg PO BID 90 Days Qty: 180 RF: 3 budesonide [Pulmicort] 0.5 mg/2 mL suspension for nebulization 0.5 mg inhalation DAILY 30 Days Qty: 60 RF: 11 montelukast [Singulair] 10 mg tablet 10 mg PO DAILY 90 Days Qty: 90 RF: 3 levothyroxine [Synthroid] 50 mcg tablet 50 mcg PO DAILY 90 Days Qty: 90 RF: 1 lamotrigine [Lamictal] 200 mg tablet 200 mg PO BID 30 Days Qty: 60 RF: 11 pantoprazole [Protonix] 40 mg tablet,delayed release (DR/EC) 40 mg PO BID 90 Days Qty: 180 RF: 3 Fasenra 30 mg/mL syringe See Rx Instructions subcut .COMPLEX Qty: 1 RF: 12 albuterol sulfate 90 mcg/actuation HFA aerosol inhaler 2 puff inhalation Q4-6H PRN (Reason: bronchospasm) 30 Days Qty: 6.7 RF: 11 Breo Ellipta 200-25 mcg/dose blister with device 1 inh inhalation DAILY 30 Days Qty: 28 RF: 11 (DME) wheelchair See Rx Instructions .Route .MEDSUPPLY Qty: 1 RF: 0 (DME) shower seat See Rx Instructions .Route .MEDSUPPLY Qty: 1 RF: 0 clonazepam 2 mg tablet 2 mg PO BEDTIME PRN (Reason: anxiety) 30 Days Qty: 30 RF: 0 gabapentin 400 mg capsule 400 mg PO BID 30 Days Qty: 60 RF: 3 zolpidem 10 mg tablet 10 mg PO BEDTIME PRN (Reason: sleep) 30 Days Qty: 30 RF: 0 cephalexin 500 mg capsule 500 mg PO TID 14 Days Qty: 42 RF: 0 (DME) miscellaneous medical supply Misc See Rx Instructions .ROUTE .MEDSUPPLY Qty: 1 RF: 0 lubiprostone 24 mcg capsule 24 mcg PO BID Qty: 60 RF: 2 (DME) oxygen-air delivery systems Device See Rx Instructions .ROUTE .MEDSUPPLY Qty: 1 RF: 0 ipratropium-albuterol 0.5 mg-3 mg(2.5 mg base)/3 mL solution for nebulization 3 ml inhalation Q4-6H PRNRF: 0 Systane Complete 0.6 % drops 1 drp ophthalmic (eye) BID PRN (Reason: dry eye(s)) 30 Days Qty: 5 RF: 11 metaxalone 400 mg tablet 800 mg PO TID PRN (Reason: muscle pain) 10 Days Qty: 30 RF: 0 acetaminophen [Tylenol Arthritis Pain] 650 mg tablet extended release 650 mg PO Q12H PRN (Reason: pain) 10 Days Qty: 20 RF: 0 Mucinex DM 30-600 mg tablet extended release 12 hr 1 tab PO Q12H PRN (Reason: cough) 10 Days Qty: 20 RF: 0 (DME) blood-glucose meter [Footfall[employer]yle [place] Lite] Kit See Rx Instructions .ROUTE .MEDSUPPLY Qty: 1 RF: 0 bupropion HCl 300 mg tablet extended release 24 hr 300 mg PO QAM 90 Days Qty: 90 RF: 3 ciprofloxacin HCl [Cipro] 250 mg tablet 250 mg PO Q12H 7 Days Qty: 14 RF: 0 cephalexin 750 mg capsule 750 mg PO BID 14 Days Qty: 28 RF: 0 ascorbic acid (vitamin C) 500 mg tablet 0.5 g PO DAILY 90 Days Qty: 90 RF: 1 amitriptyline 100 mg tablet 100 mg PO BEDTIME RF: 0 Victoza 2-Scott 0.6 mg/0.1 mL (18 mg/3 mL) pen injector subcut RF: 0 Linzess 145 mcg capsule 145 mcg PO QAM RF: 0
[2021-01-07 20:00] VITALS: BP 148/102; PULSE 113; RESP 22; TEMP 37.8; O2SAT 100
[2021-01-07] MEDS: Acetaminophen 325 MG TABLET 650 MG PO (22:29)
== END 2021-01-07 22:29 | disposition home or self-care (01) ==
PROVIDERS: Emergency Provider Emergency Medicine
DX: U07.1 COVID-19 (principal); J44.9 Chronic obstructive pulmonary disease, unspecified; R00.0 Tachycardia, unspecified; Z87.891 Personal history of nicotine dependence; Z99.81 Dependence on supplemental oxygen; Z79.899 Other long term (current) drug therapy; Z79.51 Long term (current) use of inhaled steroids
CPT/HCPCS: 36415; 71045; 71275; 80053; 85025; 87635; 96360; 99284; Q9967

== ENCOUNTER 2021-01-08 12:01 | Emergency (ER) | payer OTHER, SELFPAY ==
[2021-01-08] VITALS (8 sets, daily range): BP systolic 95–123; BP diastolic 52–57; PULSE 88–104; RESP 16–26; TEMP 37.7–39; O2SAT 95–100; BMI 46.3
--- NOTE | ~2021-01-08 | XR_ITS ---
EXAMINATION: XR CHEST CLINICAL INFORMATION: Covid worsening shortness of breath COMPARISON: Prior chest x-ray January 07, 2021. The chest January 07, 2021 TECHNIQUE: Frontal AP portable upright view of the chest was obtained. FINDINGS: There is persistent patchy bilateral airspace disease greater on the left than right unchanged. Cardiac silhouette mediastinum pulmonary vascularity unremarkable. XR/XR chest 1V IMPRESSION: Bilateral airspace disease left greater than right unchanged consistent with bilateral pneumonia
--- NOTE | 2021-01-08 12:25 | ED.URI ---
HPI - URI/Sore Throat General Chief Complaint: Upper Respiratory Symptoms Stated Complaint: +covid Time Seen by Provider: 01/08/21 12:21 Source: patient Mode of arrival: EMS Limitations: no limitations Related Data Home Medications Medication Instructions Recorded Confirmed ipratropium 0.5 mg-albuterol 3 mg 3 ml INHALATION Q4-6H PRN 08/24/20 12/17/20 (2.5 mg base)/3 mL nebulization soln oxygen-air delivery systems #1 08/24/20 12/17/20 amitriptyline 100 mg tablet 100 mg PO BEDTIME 12/17/20 12/17/20 linaclotide 145 mcg capsule 145 mcg PO QAM 12/17/20 12/17/20 liraglutide 0.6 mg/0.1 mL (18 mg/3 mg SUBCUT 12/17/20 12/17/20 mL) subcutaneous pen injector doxycycline hyclate 100 mg tablet 100 mg PO BID 12/31/20 prednisone 20 mg tablet 20 mg PO BID 12/31/20 Previous Rx's Medication Instructions Recorded propylene glycol 0.6 % eye drops 1 drp OPHTHALMIC (EYE) BID PRN 30 08/24/20 Days #5 ml Synthroid 50 mcg tablet 50 mcg PO DAILY 90 Days #90 tab NS 08/25/20 amitriptyline 50 mg tablet 50 mg PO BID 90 Days #180 tab 08/25/20 budesonide 0.5 mg/2 mL suspension 0.5 mg INHALATION DAILY 30 Days 08/25/20 for nebulization #60 ml montelukast 10 mg tablet 10 mg PO DAILY 90 Days #90 tab 08/25/20 lamotrigine 200 mg tablet 200 mg PO BID 30 Days #60 tab 08/26/20 pantoprazole 40 mg tablet,delayed 40 mg PO BID 90 Days #180 tab 08/26/20 release blood-glucose meter #1 ea 09/22/20 bupropion HCl 300 mg 24 hr tablet, 300 mg PO QAM 90 Days #90 tab 09/22/20 extended release benralizumab 30 mg/mL subcutaneous See Rx Instructions SUBCUT 10/21/20 syringe .COMPLEX #1 syringe albuterol sulfate 90 mcg/actuation 2 puff INHALATION Q4-6H PRN 30 10/26/20 aerosol inhaler Days #6.7 g fluticasone furoate 200 1 inh INHALATION DAILY 30 Days #28 12/29/20 mcg-vilanterol 25 mcg/dose ea inhalation powder ciprofloxacin HCl 250 mg tablet 250 mg PO Q12H 7 Days #14 tab 11/05/20 ascorbic acid (vitamin C) 500 mg 0.5 g PO DAILY 90 Days #90 tab 11/13/20 tablet shower seat #1 ea 11/23/20 wheelchair #1 ea 11/23/20 cephalexin 750 mg capsule 750 mg PO BID 14 Days #28 cap 11/24/20 clonazepam 2 mg tablet 2 mg PO BEDTIME PRN 30 Days #30 tab 11/26/20 gabapentin 400 mg capsule 400 mg PO BID 30 Days #60 cap 11/26/20 zolpidem 10 mg tablet 10 mg PO BEDTIME PRN 30 Days #30 11/26/20 tab cephalexin 500 mg capsule 500 mg PO TID 14 Days #42 cap 11/27/20 miscellaneous medical supply #1 ea 12/22/20 acetaminophen 650 mg 650 mg PO Q12H PRN 10 Days #20 tab 12/31/20 tablet,extended release dextromethorphan-guaifenesin 30 1 tab PO Q12H PRN 10 Days #20 tab 12/31/20 mg-600 mg tablet extended hr lubiprostone 24 mcg capsule 24 mcg PO BID #60 cap 12/31/20 metaxalone 400 mg tablet 800 mg PO TID PRN 10 Days #30 tab 12/31/20 Allergies Allergy/AdvReac Type Severity Reaction Status Date / Time unknown analgesia given Allergy Severe rash Uncoded 12/17/20 14:18 antihi PMFSH Past Medical History Medical History Asthma-COPD overlap syndrome Bipolar 1 disorder COPD (chronic obstructive pulmonary disease) Depression with anxiety Diabetes Eosinophilia GERD (gastroesophageal reflux disease) Hemangioma Hypothyroidism Hypovitaminosis D Insomnia Lumbar degenerative disc disease Lupus Lupus (systemic lupus erythematosus) Neck mass Obesity Oxygen dependent Polyarthralgia Recurrent UTI Severe asthma Tachycardia Trigger finger of right hand Surgical History History of carpal tunnel release History of section History of colonoscopy History of cystocele History of hysterectomy History of shoulder surgery History of tonsillectomy Family History Family History Father No problems noted. Mother No problems noted. Sister Nasopharyngeal cancer Social History Social History Household Members: None Alcohol intake: never Smoking Status: Former smoker Tobacco Type: Cigarette Current occupational status: disabled Current occupation: right and left handed--- HAS [employer] Physical Exam Vital Signs: Vital Signs: Last Vital Signs Temp 102.2 F H 01/08/21 12:16 Pulse 100 01/08/21 12:16 Resp 26 H 01/08/21 12:16 BP 123/57 L 01/08/21 12:16 Pulse Ox 100 01/08/21 12:16 Body Mass Index 46.3 Discharge Plan Discharge Prescriptions: No Action amitriptyline 50 mg tablet 50 mg PO BID 90 Days Qty: 180 RF: 3 budesonide [Pulmicort] 0.5 mg/2 mL suspension for nebulization 0.5 mg inhalation DAILY 30 Days Qty: 60 RF: 11 montelukast [Singulair] 10 mg tablet 10 mg PO DAILY 90 Days Qty: 90 RF: 3 levothyroxine [Synthroid] 50 mcg tablet 50 mcg PO DAILY 90 Days Qty: 90 RF: 1 lamotrigine [Lamictal] 200 mg tablet 200 mg PO BID 30 Days Qty: 60 RF: 11 pantoprazole [Protonix] 40 mg tablet,delayed release (DR/EC) 40 mg PO BID 90 Days Qty: 180 RF: 3 Fasenra 30 mg/mL syringe See Rx Instructions subcut .COMPLEX Qty: 1 RF: 12 albuterol sulfate 90 mcg/actuation HFA aerosol inhaler 2 puff inhalation Q4-6H PRN (Reason: bronchospasm) 30 Days Qty: 6.7 RF: 11 Breo Ellipta 200-25 mcg/dose blister with device 1 inh inhalation DAILY 30 Days Qty: 28 RF: 11 (DME) wheelchair See Rx Instructions .Route .MEDSUPPLY Qty: 1 RF: 0 (DME) shower seat See Rx Instructions .Route .MEDSUPPLY Qty: 1 RF: 0 clonazepam 2 mg tablet 2 mg PO BEDTIME PRN (Reason: anxiety) 30 Days Qty: 30 RF: 0 gabapentin 400 mg capsule 400 mg PO BID 30 Days Qty: 60 RF: 3 zolpidem 10 mg tablet 10 mg PO BEDTIME PRN (Reason: sleep) 30 Days Qty: 30 RF: 0 cephalexin 500 mg capsule 500 mg PO TID 14 Days Qty: 42 RF: 0 (DME) miscellaneous medical supply Misc See Rx Instructions .ROUTE .MEDSUPPLY Qty: 1 RF: 0 lubiprostone 24 mcg capsule 24 mcg PO BID Qty: 60 RF: 2 (DME) oxygen-air delivery systems Device See Rx Instructions .ROUTE .MEDSUPPLY Qty: 1 RF: 0 ipratropium-albuterol 0.5 mg-3 mg(2.5 mg base)/3 mL solution for nebulization 3 ml inhalation Q4-6H PRNRF: 0 Systane Complete 0.6 % drops 1 drp ophthalmic (eye) BID PRN (Reason: dry eye(s)) 30 Days Qty: 5 RF: 11 metaxalone 400 mg tablet 800 mg PO TID PRN (Reason: muscle pain) 10 Days Qty: 30 RF: 0 acetaminophen [Tylenol Arthritis Pain] 650 mg tablet extended release 650 mg PO Q12H PRN (Reason: pain) 10 Days Qty: 20 RF: 0 Mucinex DM 30-600 mg tablet extended release 12 hr 1 tab PO Q12H PRN (Reason: cough) 10 Days Qty: 20 RF: 0 (DME) blood-glucose meter [FreeStyle [place] Lite] Kit See Rx Instructions .ROUTE .MEDSUPPLY Qty: 1 RF: 0 bupropion HCl 300 mg tablet extended release 24 hr 300 mg PO QAM 90 Days Qty: 90 RF: 3 ciprofloxacin HCl [Cipro] 250 mg tablet 250 mg PO Q12H 7 Days Qty: 14 RF: 0 cephalexin 750 mg capsule 750 mg PO BID 14 Days Qty: 28 RF: 0 ascorbic acid (vitamin C) 500 mg tablet 0.5 g PO DAILY 90 Days Qty: 90 RF: 1 amitriptyline 100 mg tablet 100 mg PO BEDTIME RF: 0 Victoza 2-Scott 0.6 mg/0.1 mL (18 mg/3 mL) pen injector subcut RF: 0 Linzess 145 mcg capsule 145 mcg PO QAM RF: 0
--- NOTE | 2021-01-08 12:38 | ED_ITS ---
HPI - URI/Sore Throat General Chief Complaint: Upper Respiratory Symptoms Stated Complaint: +covid Time Seen by Provider: 01/08/21 12:21 Source: patient Mode of arrival: EMS Limitations: no limitations History of Present Illness HPI Narrative: Patient is a 60-year-old [place]ian-speaking female with a past medical history of COPD on 2-3 L of oxygen at home, diabetes, lupus, tachycardia, obesity, GERD, hypothyroidism, depression, anxiety and that a degenerative disc disease presents with 2 weeks of shortness of breath and cough. Patient states 2 weeks ago she was diagnosed with bronchitis and given steroids and antibiotics. Last evening, I saw this patient in the emergency department, she tested positive for COVID. She states she went home where she lives alone but has a CASING WRINGER OPERATOR and when she was getting up to go to the bathroom, she fell and was on the floor for at least an hour. She was finally able to call someone to help her get up. Her CASING WRINGER OPERATOR reportedly told her to come to the ED. she reports worsening shortness of breath, fever and body aches. She denies chills, nausea vomiting diarrhea, loss of sense of taste or loss of sense of smell. She states she did not eat breakfast today but is able to keep down sips of marissa rale. Related Data Home Medications Medication Instructions Recorded Confirmed ipratropium 0.5 mg-albuterol 3 mg 3 ml INHALATION Q4-6H PRN 08/24/20 12/17/20 (2.5 mg base)/3 mL nebulization soln oxygen-air delivery systems #1 08/24/20 12/17/20 amitriptyline 100 mg tablet 100 mg PO BEDTIME 12/17/20 12/17/20 linaclotide 145 mcg capsule 145 mcg PO QAM 12/17/20 12/17/20 liraglutide 0.6 mg/0.1 mL (18 mg/3 mg SUBCUT 12/17/20 12/17/20 mL) subcutaneous pen injector doxycycline hyclate 100 mg tablet 100 mg PO BID 12/31/20 prednisone 20 mg tablet 20 mg PO BID 12/31/20 Previous Rx's Medication Instructions Recorded propylene glycol 0.6 % eye drops 1 drp OPHTHALMIC (EYE) BID PRN 30 08/24/20 Days #5 ml Synthroid 50 mcg tablet 50 mcg PO DAILY 90 Days #90 tab NS 08/25/20 amitriptyline 50 mg tablet 50 mg PO BID 90 Days #180 tab 08/25/20 budesonide 0.5 mg/2 mL suspension 0.5 mg INHALATION DAILY 30 Days 08/25/20 for nebulization #60 ml montelukast 10 mg tablet 10 mg PO DAILY 90 Days #90 tab 08/25/20 lamotrigine 200 mg tablet 200 mg PO BID 30 Days #60 tab 08/26/20 pantoprazole 40 mg tablet,delayed 40 mg PO BID 90 Days #180 tab 08/26/20 release blood-glucose meter #1 ea 09/22/20 bupropion HCl 300 mg 24 hr tablet, 300 mg PO QAM 90 Days #90 tab 09/22/20 extended release benralizumab 30 mg/mL subcutaneous See Rx Instructions SUBCUT 10/21/20 syringe .COMPLEX #1 syringe albuterol sulfate 90 mcg/actuation 2 puff INHALATION Q4-6H PRN 30 10/26/20 aerosol inhaler Days #6.7 g fluticasone furoate 200 1 inh INHALATION DAILY 30 Days #28 10/27/20 mcg-vilanterol 25 mcg/dose ea inhalation powder ciprofloxacin HCl 250 mg tablet 250 mg PO Q12H 7 Days #14 tab 11/05/20 ascorbic acid (vitamin C) 500 mg 0.5 g PO DAILY 90 Days #90 tab 11/13/20 tablet shower seat #1 ea 11/23/20 wheelchair #1 ea 11/23/20 cephalexin 750 mg capsule 750 mg PO BID 14 Days #28 cap 11/24/20 clonazepam 2 mg tablet 2 mg PO BEDTIME PRN 30 Days #30 tab 11/26/20 gabapentin 400 mg capsule 400 mg PO BID 30 Days #60 cap 11/26/20 zolpidem 10 mg tablet 10 mg PO BEDTIME PRN 30 Days #30 11/26/20 tab cephalexin 500 mg capsule 500 mg PO TID 14 Days #42 cap 11/27/20 miscellaneous medical supply #1 ea 12/22/20 acetaminophen 650 mg 650 mg PO Q12H PRN 10 Days #20 tab 12/31/20 tablet,extended release dextromethorphan-guaifenesin 30 1 tab PO Q12H PRN 10 Days #20 tab 12/31/20 mg-600 mg tablet extended [id number] hr lubiprostone 24 mcg capsule 24 mcg PO BID #60 cap 12/31/20 metaxalone 400 mg tablet 800 mg PO TID PRN 10 Days #30 tab 12/31/20 azithromycin See Rx Instructions .ROUTE 01/08/21 .COMPLEX #6 tab prednisone 40 mg PO DAILY #4 tab 01/08/21 Allergies Allergy/AdvReac Type Severity Reaction Status Date / Time unknown analgesia given Allergy Severe rash Uncoded 12/17/20 14:18 antihi Review of Systems Review of Systems: Yes all other systems are reviewed and are negative [facility] Past Medical History Medical History Asthma-COPD overlap syndrome Bipolar 1 disorder COPD (chronic obstructive pulmonary disease) Depression with anxiety Diabetes Eosinophilia GERD (gastroesophageal reflux disease) Hemangioma Hypothyroidism Hypovitaminosis D Insomnia Lumbar degenerative disc disease Lupus Lupus (systemic lupus erythematosus) Neck mass Obesity Oxygen dependent Polyarthralgia Recurrent UTI Severe asthma Tachycardia Trigger finger of right hand Surgical History History of carpal tunnel release History of section History of colonoscopy History of cystocele History of hysterectomy History of shoulder surgery History of tonsillectomy Family History Family History Father No problems noted. Mother No problems noted. Sister Nasopharyngeal cancer Social History Social History Household Members: None Alcohol intake: never Smoking Status: Former smoker Tobacco Type: Cigarette Advance Directives: No Advance Directives Information Provided: No Current occupational status: disabled Current occupation: right and left handed--- HAS [employer] Physical Exam Vital Signs: Vital Signs: Last Vital Signs Temp 100 F 01/08/21 16:17 Pulse 88 01/08/21 16:23 Resp 22 H 01/08/21 13:31 BP 123/57 L 01/08/21 12:16 Pulse Ox 99 01/08/21 16:17 Body Mass Index 46.3 Const: General: cooperative, healthy appearing, comfortable, no acute distress and well developed Orientation/consciousness: patient oriented x3 Limitations: no limitations HENMT: Head: Yes normal to inspection Eyes: General: appearance normal, both eyes and all related structures Neck: Neck: Yes normal visual inspection and Yes full ROM Resp: Effort & Inspection: normal respiratory effort and able to speak in complete sentences Auscultation: clear to auscultation bilaterally and wheezes scattered wheezes and throughout Cardio: Rate: regular rate Rhythm: regular rhythm Heart sounds: normal S1 and S2 GI: Inspection: Yes obesity Skin: Other: Slightly diaphoretic on forehead General skin exam: no rashes or lesions noted Neuro: General: patient oriented x3 Extrem: General: Yes normal to inspection Course Course Course Narrative: Patient is a 60-year-old [place]ian-speaking female with a past medical history of COPD on 2-3 L of oxygen at home, diabetes, lupus, tachycardia, obesity, GERD, hypothyroidism, depression, anxiety and that a degenerative disc disease presents with 2 weeks of shortness of breath and cough. Patient states 2 weeks ago she was diagnosed with bronchitis and given steroids and antibiotics. Last night, I saw this patient in the emergency department, she tested positive for COVID. Her presentation today is almost id entical to her presentation last evening the exception of her heart rate is lower at 100 BPM and her temp is higher at 102F and her lungs are slightly wheezing. Will repeat basic labs, get a D-dimer, CPK, give the patient a breathing treatment, Tylenol and reassess. CTA was negative last evening. Reevaluation(s) Reevaluation #1: CPK elevated at 177, will give 1 L LR. Remainder of chemistry WNL, trop negative, CBC not resulted yet, lab working on it. Time: 14:03 Reevaluation #2: Patient states she is feeling better, currently afebrile, IVF almost finished. We will attempt to walk patient to see if she desats. If she stays over 89%, will discharge home on Z-Scott and steroids. Time: 15:37 Reevaluation #3: Per RN, patient did not desat below 95% while ambulatory. Will discharge patient. Will also call CASING WRINGER OPERATOR to explain to the CASING WRINGER OPERATOR indications on when to have the patient return to the emergency department as she was clearly confused as to what happened last night in the ED and patient is COVID status. Time: 16:42 Additional Reevaluation(s): Patient's CASING WRINGER OPERATOR states she cannot care for the patient because her has cancer and she cannot be exposed to COVID, even though she already has been exposed to COVID from this patient. The family is not local and has known also can care for the patient's so we will try to locate SNF to transfer the patient to. MDM - URI/Sore Throat Medical Records Attestation: I reviewed the patient's medical records. Lab Data Attestation: I reviewed the patient's lab results. Result diagrams: 01/08/21 12:54 01/08/21 12:54 Labs: Lab Results 01/08/21 01/08/21 01/08/21 Range/Units 12:54 12:54 12:54 WBC 5.9 (4.8-10.8) X10*3/uL RBC 3.93 L (4.20-5.50) X10*6/uL Hgb 11.3 L (12.0-16.0) g/dl Hct 35.9 L (37-47) % MCV 91.3 (80-98) fL MCH 28.8 (27.0-33.0) pg MCHC 31.5 (31.0-35.0) g/dl RDW 14.6 (11.0-16.0) % Plt Count 237 (160-400) X10*3/uL MPV 9.5 (9.4-12.3) fL Immature Gran % (Auto) 0.7 H (0.0-0.4) % Neut % (Auto) 84.0 H (45-73) % Lymph % (Auto) 11.6 L (20-40) % Miller % (Auto) 3.7 (2-11) % Eos % (Auto) 0.0 (0-4) % Baso % (Auto) 0.0 (0-2) % Lymph # (Auto) 0.7 L (1.2-4.9) X10*3/uL Miller # (Auto) 0.2 (0.1-1.2) X10*3/uL Eos # (Auto) 0.0 (0.0-0.4) X10*3/uL Baso # (Auto) 0.0 (0.0-0.2) X10*3/uL Abs Immat Gran (auto) 0.04 H (0.00-0.03) X10*3/uL Absolute Neuts (auto) 5.0 (2.0-8.3) X10*3/uL Absolute Nucleated RBC 0.000 (0.0-0.012) X10*3/uL Nucleated RBC % (auto) 0.0 (0.0-0.2) /100WBC Smear Tech's Comments VERIFIED PT 13.7 H (10.8-13.0) SEC INR 1.2 H (0.9-1.1) APTT 31.2 (24.1-38.0) SEC D-Dimer 643 NG/ML Sodium 135 (135-145) mmol/L Potassium 4.2 (3.3-5.1) mmol/L Chloride 98 (96-108) mmol/L Carbon Dioxide 28 (22-29) mmol/L Anion Gap 13 (12-20) BUN 11 (9-16) mg/dL Creatinine 1.02 (0.5-1.4) mg/dL Estim Creat Clear Calc 66.0 Estimated GFR 55 POC Glucose (60-115) mg/dL Random Glucose 125 H (60-115) mg/dL Calcium 8.1 L (8.4-10.2) mg/dL Total Creatine Kinase 177 H (26-140) U/L Troponin I High Sens (<3.5-17.0) ng/L 01/08/21 01/08/21 Range/Units 12:54 14:12 WBC (4.8-10.8) X10*3/uL RBC (4.20-5.50) X10*6/uL Hgb (12.0-16.0) g/dl Hct (37-47) % MCV (80-98) fL MCH (27.0-33.0) pg MCHC (31.0-35.0) g/dl RDW (11.0-16.0) % Plt Count (160-400) X10*3/uL MPV (9.4-12.3) fL Immature Gran % (Auto) (0.0-0.4) % Neut % (Auto) (45-73) % Lymph % (Auto) (20-40) % Miller % (Auto) (2-11) % Eos % (Auto) (0-4) % Baso % (Auto) (0-2) % Lymph # (Auto) (1.2-4.9) X10*3/uL Miller # (Auto) (0.1-1.2) X10*3/uL Eos # (Auto) (0.0-0.4) X10*3/uL Baso # (Auto) (0.0-0.2) X10*3/uL Abs Immat Gran (auto) (0.00-0.03) X10*3/uL Absolute Neuts (auto) (2.0-8.3) X10*3/uL Absolute Nucleated RBC (0.0-0.012) X10*3/uL Nucleated RBC % (auto) (0.0-0.2) /100WBC Smear Tech's Comments PT (10.8-13.0) SEC INR (0.9-1.1) APTT (24.1-38.0) SEC D-Dimer NG/ML Sodium (135-145) mmol/L Potassium (3.3-5.1) mmol/L Chloride (96-108) mmol/L Carbon Dioxide (22-29) mmol/L Anion Gap (12-20) BUN (9-16) mg/dL Creatinine (0.5-1.4) mg/dL Estim Creat Clear Calc Estimated GFR POC Glucose 118 H (60-115) mg/dL Random Glucose (60-115) mg/dL Calcium (8.4-10.2) mg/dL Total Creatine Kinase (26-140) U/L Troponin I High Sens 5.0 (<3.5-17.0) ng/L Imaging Data Chest x-ray: Attestation: I personally reviewed and interpreted this imaging study as follows: My impression: bilateral pna Radiologist's impression: [address] [id number] ReportSigned Patient: Mundo SilvaR#: [id number]: 8Acct:[id number]/Sex: 60 / FADM Date: 01/08/21Loc: [address]: Ordering Physician: Zeinab Barr PA-C Date of Service: 01/08/21 Procedure(s): XR chest 1V Accession Number(s): [id number] cc: Zeinab Barr PA-C~ EXAMINATION: XR CHEST CLINICAL INFORMATION: Covid worsening shortness of breath COMPARISON: Prior chest x-ray January 07, 2021. The chest January 07, 2021 TECHNIQUE: Frontal AP portable upright view of the chest was obtained. FINDINGS: There is persistent patchy bilateral airspace disease greater on the left than right unchanged. Cardiac silhouette mediastinum pulmonary vascularity unremarkable. XR/XR chest 1V IMPRESSION: Bilateral airspace disease left greater than right unchanged consistent with bilateral pneumonia Dictated By:ROCIO MITCHELL MDSigned By:<Electronically signed by ROCIO MITCHELL MD in OV>01/08/21 1334 DD/ 1244TD/TT: Loin Puller: PREETI Discharge Plan Discharge Clinical Impression: Pneumonia due to COVID-19 virus Patient Disposition: Home, Self-Care Instructions: COVID-19 (Coronavirus Disease 2019) (ED) Prescriptions: New azithromycin 500 mg tablet See Rx Instructions .ROUTE .COMPLEX Qty: 6 RF: 0 prednisone 10 mg tablet 40 mg PO DAILY Qty: 4 RF: 0 No Action amitriptyline 50 mg tablet 50 mg PO BID 90 Days Qty: 180 RF: 3 budesonide [Pulmicort] 0.5 mg/2 mL suspension for nebulization 0.5 mg inhalation DAILY 30 Days Qty: 60 RF: 11 montelukast [Singulair] 10 mg tablet 10 mg PO DAILY 90 Days Qty: 90 RF: 3 levothyroxine [Synthroid] 50 mcg tablet 50 mcg PO DAILY 90 Days Qty: 90 RF: 1 lamotrigine [Lamictal] 200 mg tablet 200 mg PO BID 30 Days Qty: 60 RF: 11 pantoprazole [Protonix] 40 mg tablet,delayed release (DR/EC) 40 mg PO BID 90 Days Qty: 180 RF: 3 Fasenra 30 mg/mL syringe See Rx Instructions subcut .COMPLEX Qty: 1 RF: 12 albuterol sulfate 90 mcg/actuation HFA aerosol inhaler 2 puff inhalation Q4-6H PRN (Reason: bronchospasm) 30 Days Qty: 6.7 RF: 11 Breo Ellipta 200-25 mcg/dose blister with device 1 inh inhalation DAILY 30 Days Qty: 28 RF: 11 (DME) wheelchair See Rx Instructions .Route .MEDSUPPLY Qty: 1 RF: 0 (DME) shower seat See Rx Instructions .Route .MEDSUPPLY Qty: 1 RF: 0 clonazepam 2 mg tablet 2 mg PO BEDTIME PRN (Reason: anxiety) 30 Days Qty: 30 RF: 0 gabapentin 400 mg capsule 400 mg PO BID 30 Days Qty: 60 RF: 3 zolpidem 10 mg tablet 10 mg PO BEDTIME PRN (Reason: sleep) 30 Days Qty: 30 RF: 0 cephalexin 500 mg capsule 500 mg PO TID 14 Days Qty: 42 RF: 0 (DME) miscellaneous medical supply Misc See Rx Instructions .ROUTE .MEDSUPPLY Qty: 1 RF: 0 lubiprostone 24 mcg capsule 24 mcg PO BID Qty: 60 RF: 2 (DME) oxygen-air delivery systems Device See Rx Instructions .ROUTE .MEDSUPPLY Qty: 1 RF: 0 ipratropium-albuterol 0.5 mg-3 mg(2.5 mg base)/3 mL solution for nebulization 3 ml inhalation Q4-6H PRNRF: 0 Systane Complete 0.6 % drops 1 drp ophthalmic (eye) BID PRN (Reason: dry eye(s)) 30 Days Qty: 5 RF: 11 metaxalone 400 mg tablet 800 mg PO TID PRN (Reason: muscle pain) 10 Days Qty: 30 RF: 0 acetaminophen [Tylenol Arthritis Pain] 650 mg tablet extended release 650 mg PO Q12H PRN (Reason: pain) 10 Days Qty: 20 RF: 0 Mucinex DM 30-600 mg tablet extended release 12 hr 1 tab PO Q12H PRN (Reason: cough) 10 Days Qty: 20 RF: 0 (DME) blood-glucose meter [FreeStyle [place] Lite] Kit See Rx Instructions .ROUTE .MEDSUPPLY Qty: 1 RF: 0 bupropion HCl 300 mg tablet extended release 24 hr 300 mg PO QAM 90 Days Qty: 90 RF: 3 ciprofloxacin HCl [Cipro] 250 mg tablet 250 mg PO Q12H 7 Days Qty: 14 RF: 0 cephalexin 750 mg capsule 750 mg PO BID 14 Days Qty: 28 RF: 0 ascorbic acid (vitamin C) 500 mg tablet 0.5 g PO DAILY 90 Days Qty: 90 RF: 1 amitriptyline 100 mg tablet 100 mg PO BEDTIME RF: 0 Victoza 2-Scott 0.6 mg/0.1 mL (18 mg/3 mL) pen injector subcut RF: 0 Linzess 145 mcg capsule 145 mcg PO QAM RF: 0 Print Language: [place]itanian
[2021-01-08] MEDS: Acetaminophen 325 MG TABLET 650 MG PO (13:03)
[2021-01-08] MEDS: Ketorolac Tromethamine 15 MG/ML VIAL IVPUSH (13:03)
[2021-01-08 13:07] LABS: Hematocrit 35.9 % (37-47); Hemoglobin 11.3 g/dl (12.0-16.0); Imm Gran Abs Auto 0.04 X10*3/uL (0.00-0.03); Imm Gran Pct Auto 0.7 % (0.0-0.4); Lymphocytes Absolute Auto 0.7 X10*3/uL (1.2-4.9); Lymphocytes Percent Auto 11.6 % (20-40); MANUAL DIFF FLAG SCAN; Mean Corpuscular HGB Conc 31.5 g/dl (31.0-35.0); Mean Corpuscular Hemoglobin 28.8 pg (27.0-33.0); Mean Corpuscular Volume 91.3 fL (80-98); Mean Platelet Volume 9.5 fL (9.4-12.3); Monocytes Absolute Auto 0.2 X10*3/uL (0.1-1.2); Monocytes Percent Auto 3.7 % (2-11); Platelet Count 237 X10*3/uL (160-400); Red Blood Count 3.93 X10*6/uL (4.20-5.50); Red Cell Distribution Width 14.6 % (11.0-16.0); SCAN SMEAR FLAG 1; White Blood Count 5.9 X10*3/uL (4.8-10.8)
[2021-01-08 13:31] LABS: INTERNATIONAL NORM RATIO 1.2 (0.9-1.1); Prothrombin Time 13.7 SEC (10.8-13.0)
[2021-01-08 13:32] LABS: Anion Gap 13 (12-20); Blood Urea Nitrogen 11 mg/dL (9-16); Calcium 8.1 mg/dL (8.4-10.2); Carbon Dioxide 28 mmol/L (22-29); Chloride 98 mmol/L (96-108); Estimated Glomerular Filt Rate 55; Glucose Random 125 mg/dL (60-115); Potassium 4.2 mmol/L (3.3-5.1); Sodium 135 mmol/L (135-145)
[2021-01-08 13:34] LABS: D Dimer 643 NG/ML; Partial Thromboplastin Time 31.2 SEC (24.1-38.0)
--- NOTE | 2021-01-08 14:07 | ECG_ITS ---
Test Reason : SOB Blood Pressure : / mmHG Vent. Rate : 096 BPM Atrial Rate : 096 BPM P-R Int : 154 ms QRS Dur : 086 ms QT Int : 340 ms P-R-T Axes : 029 012 016 degrees QTc Int : 429 ms Normal sinus rhythm Normal ECG When compared to the previous EKG of No significant changes seen Referred By: Zeinab Barr Electronically Signed By:Grady Thakkar
[2021-01-08 14:09] LABS: SLIDE REVIEW VERIFIED
[2021-01-08 14:16] LABS: Glucose, Whole Blood 118 mg/dL (60-115)
[2021-01-08] MEDS: Lactated Ringers 500 ML 999 ML IV (14:37)
--- NOTE | 2021-01-08 16:21 | PC.NURSE ---
[facility] )
[2021-01-08] MEDS: Albuterol Sulfate (0.083%) 2.5 MG/3 ML VIAL.NEB INHALE (16:22)
--- NOTE | 2021-01-08 16:51 | PC.NURSE ---
spoke with health care proxy, family member, and case management. [facility] is unable to treat patient while they are covid +. Family unable to find [facility] in time for care tonight and tomorrow. Case management made aware. Provider aware.
[2021-01-08] MEDS: predniSONE 20 MG TABLET 40 MG PO (17:07)
--- NOTE | 2021-01-08 17:22 | PC.NURSE ---
case managment and amphibious operations officer at bedside. patient will be staying the night in the ER with PT eval in the morning for residential care at facility.
--- NOTE | 2021-01-08 17:45 | MHC.CM.ED ---
Cm met with patient via contractor buyer. Zimbabwean speaking only. Covid positive. PT evaluation pending in the am. Will stay overnight. Pt normally has NIGHT GUARD hired by family through [facility]. [facility] is interim agency ([phone]). Per Demetria Nagel, nephews ([phone]), NIGHT GUARD is now in quarantine secondary to Covid diagnosis of pt and cannot care for pt for 14 days. Demetria expects NIGHT GUARD to resume care and does not have another person to care for pt. Family is responsible to hire NIGHT GUARD and [facility] is the payor. PT evaluation is pending in the am. Will refer locally to SNF for STR vs [facility] care, although expect pt may need PT. Pt is agreeable and has no preference. Pt is aware that she will be informed of choices available and will choose when beds are offered. Would like a place locally. Fell today. O2 dependent at home. No HCP on file. Demetria Nagel states she is the HCP and it is on file at [facility]. [facility] is closed-open M-F 8-4:30. Spoke with pt and she is agreeable to complete a HCP. Requests Demetria Nagel to be HCP and her son, John Mar to be the alternate ([phone]). Demetria lives in [place] and John lives in [place].. CM will follow for d/c needs.
[2021-01-09 00:56] VITALS: O2SAT 99
[2021-01-09 07:15] LABS: B Type Natriuretic Peptide 14 pg/mL (<100)
--- NOTE | 2021-01-09 07:20 | PC.NURSE ---
PT SITTING ON THE EDGE OF HER STRETCHER, HAVING A DRY COUGHING SPELL, RESPIRATIONS EVEN AND UNLABORED, LS DIMINISHED ON THE BASES, SATING AT 96% ON 2L, PT REPORTS HAVING DIARRHEA, AND LEFT SIDED/ABD PAIN ABOUT 8/10. SINUS TACH ON THE MONITOR. PT SET UP WITH BREAKFAST LITZY, DOES NOT WANT TO EAT THE EGGS DUE TO HER DIARRHEA PLAN FOR PT TO SEE PT, AND SNIFF PLACEMENT DUE TO PCT NOT ABLE TO COME TO HOUSE BECAUSE PT HAS COVID
[2021-01-09 07:25] VITALS: BP 131/83; PULSE 100; RESP 20; TEMP 36.9; O2SAT 96
[2021-01-09] MEDS: Loperamide HCl 2 MG CAPSULE PO (09:31)
[2021-01-09 12:39] VITALS: BP 102/64; PULSE 121; RESP 18; TEMP 36.8; O2SAT 98
--- NOTE | 2021-01-09 12:40 | PC.NURSE ---
patient a&ox3, desk monitor sinus tach 115-120, vitals otherwise stable, pt requested water and is currently watching tv, pt states she has 6/10 chest discomfort, will continue to monitor.
--- NOTE | 2021-01-09 13:48 | MHC.CM.ED ---
Addendum entered by Nitza Gay 01/09/21 14:35: Patient has been accepted to [facility]. Transportation has been set up for 3;30 pm today via BLS transport Original Note: CM met with patient with a bilingual interpreter re: discharge plan since PT is recommending STR. Instructed patient there are only 3 rehab facilities that are taking COVID+ patients. patient agrees to referrals to [facility]. Referrals made via allscripts. CM will continue to follow patient for discharge needs.
--- NOTE | 2021-01-09 16:48 | PC.NURSE ---
obtained scripts and gave report to jess valero
--- NOTE | 2021-01-09 16:50 | PC.NURSE ---
ambulance at bedside
== END 2021-01-09 16:50 | disposition skilled nursing facility (03) ==
PROVIDERS: Physician Assistant; Emergency Provider Emergency Medicine Emergency Medical Services; PCP Internal Medicine
DX: U07.1 COVID-19 (principal); J12.82 Pneumonia due to coronavirus disease 2019; R50.9 Fever, unspecified; R00.0 Tachycardia, unspecified; J44.9 Chronic obstructive pulmonary disease, unspecified; Z99.81 Dependence on supplemental oxygen; E11.9 Type 2 diabetes mellitus without complications; M32.9 Systemic lupus erythematosus, unspecified; F41.9 Anxiety disorder, unspecified; Z87.891 Personal history of nicotine dependence; Z79.899 Other long term (current) drug therapy; Z87.440 Personal history of urinary (tract) infections
CPT/HCPCS: 11104; 36415; 71045; 80048; 82550; 82947; 83880; 84484; 85025; 85379; 85610; 85730; 93005; 94640; 96361; 96374; 97162; 99285; J1885

== ENCOUNTER 2021-01-14 16:34 | Inpatient (IN) | payer OTHER, SELFPAY ==
[2021-01-14] VITALS (7 sets, daily range): BP systolic 103–133; BP diastolic 55–83; PULSE 86–112; RESP 20–28; TEMP 36.6–37.2; O2SAT 91–98; BMI 47.7
--- NOTE | ~2021-01-14 | XR_ITS ---
EXAMINATION: XR CHEST CLINICAL INFORMATION: Shortness of breath COMPARISON: 01/08/2021 TECHNIQUE: Frontal view of the chest was obtained. FINDINGS: Worsening bilateral patchy airspace opacities. Normal heart size. Pulmonary venous congestion. No pleural effusion or pneumothorax. No acute or suspicious osseous abnormalities. XR/XR chest 1V IMPRESSION: Worsening bilateral patchy airspace opacities.
--- NOTE | 2021-01-14 17:13 | ECG_ITS ---
Test Reason : SOB Blood Pressure : / mmHG Vent. Rate : 100 BPM Atrial Rate : 100 BPM P-R Int : 150 ms QRS Dur : 092 ms QT Int : 346 ms P-R-T Axes : 048 015 017 degrees QTc Int : 446 ms Normal sinus rhythm Normal ECG When compared to the previous EKG of No significant changes seen Referred By: Zuleika Rausch Electronically Signed By:JOAQUIN RODRIGUEZ MD
--- NOTE | 2021-01-14 17:14 | ED.GENADULT ---
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 Patient found to have O2 sat of 77% with difficulty breathing, patient was put on non-rebreather and transported to the hospital on non-rebreather 12 L of oxygen patient was satting 90-91% then. Patient to the was started on high-flow oxygen of 4 L in the hospital patient is tolerating the high-flow oxygen and her O2 sat now is 99%. Patient declined any shoulder pain or wrist pain, no hip pain, no knee pain. Patient recently was diagnosed positive for COVID-19. Related Data Home Medications Medication Instructions Recorded Confirmed ipratropium 0.5 mg-albuterol 3 mg 3 ml INHALATION Q4-6H PRN 08/24/20 12/17/20 (2.5 mg base)/3 mL nebulization soln oxygen-air delivery systems #1 08/24/20 12/17/20 linaclotide 145 mcg capsule 145 mcg PO DAILY 12/17/20 01/14/21 liraglutide 0.6 mg/0.1 mL (18 mg/3 mg SUBCUT 12/17/20 12/17/20 mL) subcutaneous pen injector amitriptyline 1 tab PO BID 01/09/21 01/09/21 amitriptyline 100 mg PO BEDTIME 01/09/21 01/14/21 fluticasone furoate-vilanterol 1 puff INHALATION DAILY 01/09/21 01/14/21 [Breo Ellipta] lubiprostone [Amitiza] 24 mcg PO BID 01/09/21 01/14/21 albuterol sulfate 2 puff INHALATION Q4H PRN 01/14/21 01/14/21 ascorbic acid (vitamin C) 250 mg PO DAILY 01/14/21 01/14/21 azithromycin 250 mg PO DAILY 01/14/21 01/14/21 bisacodyl 10 mg AR DAILY PRN 01/14/21 01/14/21 bupropion HCl 300 mg PO DAILY 01/14/21 01/14/21 clonazepam 2 mg PO BEDTIME 01/14/21 01/14/21 levothyroxine 50 mcg PO DAILY@0630 01/14/21 01/14/21 magnesium hydroxide [Milk of 30 ml PO BEDTIME PRN 01/14/21 01/14/21 Magnesia] zolpidem 5 mg PO BEDTIME PRN 01/14/21 01/14/21 Previous Rx's Medication Instructions Recorded propylene glycol 0.6 % eye drops 1 drp OPHTHALMIC (EYE) BID PRN 30 08/24/20 Days #5 ml Synthroid 50 mcg tablet 50 mcg PO DAILY 90 Days #90 tab NS 08/25/20 budesonide 0.5 mg/2 mL suspension 0.5 mg INHALATION DAILY 30 Days 08/25/20 for nebulization #60 ml montelukast 10 mg tablet 10 mg PO DAILY 90 Days #90 tab 08/25/20 lamotrigine 200 mg tablet 200 mg PO BID 30 Days #60 tab 08/26/20 pantoprazole 40 mg tablet,delayed 40 mg PO BID 90 Days #180 tab 08/26/20 release blood-glucose meter #1 ea 09/22/20 benralizumab 30 mg/mL subcutaneous See Rx Instructions SUBCUT 10/21/20 syringe .COMPLEX #1 syringe shower seat #1 ea 11/23/20 wheelchair #1 ea 11/23/20 clonazepam 2 mg tablet 2 mg PO BEDTIME PRN 30 Days #30 tab 11/26/20 gabapentin 400 mg capsule 400 mg PO BID 30 Days #60 cap 11/26/20 zolpidem 10 mg tablet 10 mg PO BEDTIME PRN 30 Days #30 11/26/20 tab miscellaneous medical supply #1 ea 12/22/20 acetaminophen 650 mg 650 mg PO Q12H PRN 10 Days #20 tab 12/31/20 tablet,extended release dextromethorphan-guaifenesin 30 1 tab PO Q12H PRN 10 Days #20 tab 12/31/20 mg-600 mg tablet extended [id number] hr metaxalone 400 mg tablet 800 mg PO TID PRN 10 Days #30 tab 12/31/20 prednisone 40 mg PO DAILY #4 tab 01/08/21 zolpidem 10 mg PO BEDTIME PRN #30 tab 01/09/21 Allergies Allergy/AdvReac Type Severity Reaction Status Date / Time unknown analgesia given Allergy Severe rash Uncoded 12/17/20 14:18 antihi Review of Systems Review of Systems: All other systems are reviewed and are negative Constitutional: Reports as per HPI and Reports no additional constitutional complaints Eyes: Reports as per HPI and Reports no additional eye complaints Reports system reviewed and no additional complaints, except as documented Cardiovascular: Reports as per HPI and Reports no additional cardiovascular complaints Respiratory: Reports as per HPI and Reports no additional respiratory complaints Gastrointestinal: Reports as per HPI and Reports no additional gastrointestinal complaints Genitourinary: Reports no additional female genitourinary complaints Musculoskeletal: Reports no additional musculoskeletal complaints Skin/Breast: Reports system reviewed and no additional complaints, except as docu Psychiatric: Reports no additional psychiatric complaints Endocrine: Reports no additional endocrine complaints Hematologic/Lymphatic: Reports no additional hematologic/lymphatic complaints Allergic/Immunologic: Reports no additional allergic/immunologic complaints Reports system reviewed and no additional complaints, except as documented and Reports Abnormal speech present [facility] Past Medical History Medical History Asthma-COPD overlap syndrome Bipolar 1 disorder COPD (chronic obstructive pulmonary disease) Depression with anxiety Diabetes Eosinophilia GERD (gastroesophageal reflux disease) Hemangioma Hypothyroidism Hypovitaminosis D Insomnia Lumbar degenerative disc disease Lupus Lupus (systemic lupus erythematosus) Neck mass Obesity Oxygen dependent Polyarthralgia Recurrent UTI Severe asthma Tachycardia Trigger finger of right hand Surgical History History of carpal tunnel release History of section History of colonoscopy History of cystocele History of hysterectomy History of shoulder surgery History of tonsillectomy Family History Family History Father No problems noted. Mother No problems noted. Sister Nasopharyngeal cancer Social History Social History Household Members: None Alcohol intake: never Smoking Status: Former smoker Tobacco Type: Cigarette Use of substances other than those prescribed or required for medical reasons: No Advance Directives: No Advance Directives Information Provided: Yes Current occupational status: disabled Current occupation: right and left handed--- HAS [employer] Physical Exam Vital Signs: Vital Signs: Last Vital Signs Temp 97.8 F 01/14/21 16:50 Pulse 105 H 01/14/21 16:50 Resp 28 H 01/14/21 17:14 BP 122/83 01/14/21 16:50 Pulse Ox 97 01/14/21 16:50 Body Mass Index 47.7 Vital signs have been reviewed as appeared to be correct. Blood pressure normal. Heart rate: Tachycardic. Respiration rate normal. Temperature normal. Oxygen saturation normal. Appearance: Alert. Oriented X3. No acute distress. Head: Normal external exam. Normocephalic. Atraumatic. No Escobedo signs noted. No raccoon eyes noted Eyes: PERRLA. EOMI. Conjunctiva and sclera normal. Eyelids normal. ENT: TM's Normal. Pharynx normal. Uvula midline. Moist mucous membranes. No trismus noted. No drooling noted. No muffled voice noted. Neck: Normal inspection. Neck supple. FROM. No adenopathy. Thyroid Normal. No meningeal signs. No neck mass noted. CVS: Normal heart rate and rhythm. Heart sound normal. No murmurs noted. Pulses normal throughout. Respiratory: No respiratory distress. Painless inspiration. Breath sounds normal. No wheezes/rales/rhonchi noted. Chest nontender. No accessory muscle usage noted or decreased air movement noted. Abdomen: Soft and nontender. Bowel sounds normal in all 4 quadrants. No distention noted. No organomegaly noted. No visible injury noted. Back: No CVA tenderness. Full range of motion noted. Skin: Skin warm and dry. Normal skin color. Normal skin turgor. No rashes/lesions/lacerations noted. Extremities: No lower extremity edema. Extremities exhibit normal range of motion. Extremities nontender. Neuro: Oriented X 3. No motor deficit. No sensory deficit. Reflexes normal. Course Course Course Narrative: Assessment and plan. 60-year-old female history of COPD and former smoker recently diagnosed with COVID-19, patient came to the emergency department for hypoxia at the skilled nursing patient is improving with high-flow oxygen in the emergency department. Otherwise labs and chest x-ray are unremarkable. Medical Decision Making Lab Data Lab results reviewed: Yes I reviewed the patient's lab results. Result diagrams: 01/14/21 17:27 01/14/21 17:27 Labs: Lab Results 01/14/21 01/14/21 01/14/21 Range/Units 17:27 17:27 17:27 WBC 7.4 (4.8-10.8) X10*3/uL RBC 3.93 L (4.20-5.50) X10*6/uL Hgb 11.2 L (12.0-16.0) g/dl Hct 35.6 L (37-47) % MCV 90.6 (80-98) fL MCH 28.5 (27.0-33.0) pg MCHC 31.5 (31.0-35.0) g/dl RDW 14.7 (11.0-16.0) % Plt Count 349 D (160-400) X10*3/uL MPV 10.0 (9.4-12.3) fL Immature Gran % (Auto) Cancelled Neut % (Auto) Cancelled Lymph % (Auto) Cancelled [place] % (Auto) Cancelled Eos % (Auto) Cancelled Baso % (Auto) Cancelled Lymph # (Auto) Cancelled [place] # (Auto) Cancelled Eos # (Auto) Cancelled Baso # (Auto) Cancelled Abs Immat Gran (auto) Cancelled Absolute Neuts (auto) Cancelled Absolute Nucleated RBC 0.020 H (0.0-0.012) X10*3/uL Nucleated RBC % (auto) 0.3 H (0.0-0.2) /100WBC Neutrophils % (Manual) 90 H (45-73) % Lymphocytes % (Manual) 7 L (20-40) % Monocytes % (Manual) 3 (2-11) % Abs Neuts (Manual) 6.7 (2.2-7.9) X10*3/uL Lymphocytes # (Manual) 0.5 L (0.6-4.8) X10*3/uL Monocytes # (Manual) 0.2 (0.0-1.2) X10*3/uL Platelet Estimate NORMAL (NORMAL) Plt Morphology Comment NORMAL RBC Morphology NORMAL Hold Blue Top Sodium 138 (135-145) mmol/L Potassium 4.3 (3.3-5.1) mmol/L Chloride 99 (96-108) mmol/L Carbon Dioxide 30 H (22-29) mmol/L Anion Gap 13 (12-20) BUN 25 H D (9-16) mg/dL Creatinine 1.05 (0.5-1.4) mg/dL Estim Creat Clear Calc 65.3 Estimated GFR 53 Random Glucose 125 H (60-115) mg/dL Lactic Acid 1.4 (0.5-2.0) mmol/L Calcium 8.5 (8.4-10.2) mg/dL Total Bilirubin 0.6 (0.0-1.0) mg/dL Direct Bilirubin 0.3 (0.0-0.5) mg/dL AST 118 H (5-31) U/L ALT 74 H (0-31) U/L Alkaline Phosphatase 76 D (39-117) U/L B-Natriuretic Peptide (<100) pg/mL Total Protein 6.2 L (6.5-8.0) g/dL Albumin 3.5 (3.5-5.0) g/dL Lipase 8 (8-78) U/L Hold Yellow Top 01/14/21 01/14/21 01/14/21 Range/Units 17:27 17:29 17:29 WBC (4.8-10.8) X10*3/uL RBC (4.20-5.50) X10*6/uL Hgb (12.0-16.0) g/dl Hct (37-47) % MCV (80-98) fL MCH (27.0-33.0) pg MCHC (31.0-35.0) g/dl RDW (11.0-16.0) % Plt Count (160-400) X10*3/uL MPV (9.4-12.3) fL Immature Gran % (Auto) Neut % (Auto) Lymph % (Auto) [place] % (Auto) Eos % (Auto) Baso % (Auto) Lymph # (Auto) [place] # (Auto) Eos # (Auto) Baso # (Auto) Abs Immat Gran (auto) Absolute Neuts (auto) Absolute Nucleated RBC (0.0-0.012) X10*3/uL Nucleated RBC % (auto) (0.0-0.2) /100WBC Neutrophils % (Manual) (45-73) % Lymphocytes % (Manual) (20-40) % Monocytes % (Manual) (2-11) % Abs Neuts (Manual) (2.2-7.9) X10*3/uL Lymphocytes # (Manual) (0.6-4.8) X10*3/uL Monocytes # (Manual) (0.0-1.2) X10*3/uL Platelet Estimate (NORMAL) Plt Morphology Comment RBC Morphology Hold Blue Top SEE NOTE Sodium (135-145) mmol/L Potassium (3.3-5.1) mmol/L Chloride (96-108) mmol/L Carbon Dioxide (22-29) mmol/L Anion Gap (12-20) BUN (9-16) mg/dL Creatinine (0.5-1.4) mg/dL Estim Creat Clear Calc Estimated GFR Random Glucose (60-115) mg/dL Lactic Acid (0.5-2.0) mmol/L Calcium (8.4-10.2) mg/dL Total Bilirubin (0.0-1.0) mg/dL Direct Bilirubin (0.0-0.5) mg/dL AST (5-31) U/L ALT (0-31) U/L Alkaline Phosphatase (39-117) U/L B-Natriuretic Peptide 31 (<100) pg/mL Total Protein (6.5-8.0) g/dL Albumin (3.5-5.0) g/dL Lipase (8-78) U/L Hold Yellow Top See Note Imaging Data Chest x-ray: Radiologist's impression: Worsening bilateral patchy airspace opacities. Normal heart size. Pulmonary venous congestion. No pleural effusion or pneumothorax. No acute or suspicious osseous abnormalities. ECG Data Interpretation: Normal sinus rhythm at 100 beats per minutes, normal intervals, no ST-T changes. Discharge Plan Discharge Clinical Impression: COPD (chronic obstructive pulmonary disease), Pneumonia due to COVID-19 virus Patient Disposition: Admitted As Inpatient Prescriptions: No Action budesonide [Pulmicort] 0.5 mg/2 mL suspension for nebulization 0.5 mg inhalation DAILY 30 Days Qty: 60 RF: 11 montelukast [Singulair] 10 mg tablet 10 mg PO DAILY 90 Days Qty: 90 RF: 3 levothyroxine [Synthroid] 50 mcg tablet 50 mcg PO DAILY 90 Days Qty: 90 RF: 1 lamotrigine [Lamictal] 200 mg tablet 200 mg PO BID 30 Days Qty: 60 RF: 11 pantoprazole [Protonix] 40 mg tablet,delayed release (DR/EC) 40 mg PO BID 90 Days Qty: 180 RF: 3 Fasenra 30 mg/mL syringe See Rx Instructions subcut .COMPLEX Qty: 1 RF: 12 (DME) wheelchair See Rx Instructions .Route .MEDSUPPLY Qty: 1 RF: 0 (DME) shower seat See Rx Instructions .Route .MEDSUPPLY Qty: 1 RF: 0 clonazepam 2 mg tablet 2 mg PO BEDTIME PRN (Reason: anxiety) 30 Days Qty: 30 RF: 0 gabapentin 400 mg capsule 400 mg PO BID 30 Days Qty: 60 RF: 3 zolpidem 10 mg tablet 10 mg PO BEDTIME PRN (Reason: sleep) 30 Days Qty: 30 RF: 0 (DME) miscellaneous medical supply Misc See Rx Instructions .ROUTE .MEDSUPPLY Qty: 1 RF: 0 albuterol sulfate 90 mcg/actuation HFA aerosol inhaler 2 puff inhalation Q4H PRN (Reason: bronchospasm) RF: 0 zolpidem 5 mg Tablet 5 mg PO BEDTIME PRN (Reason: Sleep) RF: 0 ascorbic acid (vitamin C) 250 mg Tablet 250 mg PO DAILY RF: 0 azithromycin 250 mg Tablet 250 mg PO DAILY RF: 0 bisacodyl 10 mg Suppository 10 mg AR DAILY PRN (Reason: Constipation) RF: 0 bupropion HCl 300 mg tablet extended release 24 hr 300 mg PO DAILY RF: 0 clonazepam 2 mg tablet 2 mg PO BEDTIME RF: 0 levothyroxine 50 mcg Tablet 50 mcg PO DAILY@0630 RF: 0 magnesium hydroxide [Milk of Magnesia] 400 mg/5 mL Suspension 30 ml PO BEDTIME PRN (Reason: Constipation) RF: 0 prednisone 10 mg tablet 40 mg PO DAILY Qty: 4 RF: 0 amitriptyline 100 mg tablet 100 mg PO BEDTIME RF: 0 amitriptyline 50 mg tablet 1 tab PO BID RF: 0 lubiprostone [Amitiza] 24 mcg capsule 24 mcg PO BID RF: 0 Breo Ellipta 200-25 mcg/dose blister with device 1 puff inhalation DAILY RF: 0 zolpidem 10 mg tablet 10 mg PO BEDTIME PRN (Reason: insomnia) Qty: 30 RF: 0 (DME) oxygen-air delivery systems Device See Rx Instructions .ROUTE .MEDSUPPLY Qty: 1 RF: 0 ipratropium-albuterol 0.5 mg-3 mg(2.5 mg base)/3 mL solution for nebulization 3 ml inhalation Q4-6H PRNRF: 0 Systane Complete 0.6 % drops 1 drp ophthalmic (eye) BID PRN (Reason: dry eye(s)) 30 Days Qty: 5 RF: 11 metaxalone 400 mg tablet 800 mg PO TID PRN (Reason: muscle pain) 10 Days Qty: 30 RF: 0 acetaminophen [Tylenol Arthritis Pain] 650 mg tablet extended release 650 mg PO Q12H PRN (Reason: pain) 10 Days Qty: 20 RF: 0 Mucinex DM 30-600 mg tablet extended release 12 hr 1 tab PO Q12H PRN (Reason: cough) 10 Days Qty: 20 RF: 0 (DME) blood-glucose meter [FreeStyle [place] Lite] Kit See Rx Instructions .ROUTE .MEDSUPPLY Qty: 1 RF: 0 Victoza 2-Scott 0.6 mg/0.1 mL (18 mg/3 mL) pen injector subcut RF: 0 Linzess 145 mcg capsule 145 mcg PO DAILY RF: 0
--- NOTE | 2021-01-14 17:22 | PC.NURSE ---
Upon arrival pt sat 91% on NRB, placed on High flow by RT with settings of 40L at 90% initially which has since been titrated down to 85%fi02, pt tolerating well, sat up to 97%. work of breathing appears non labored. Resp rate 20-22 at this time.
[2021-01-14 17:35] LABS: Hematocrit 35.6 % (37-47); Hemoglobin 11.2 g/dl (12.0-16.0); Mean Corpuscular HGB Conc 31.5 g/dl (31.0-35.0); Mean Corpuscular Hemoglobin 28.5 pg (27.0-33.0); Mean Corpuscular Volume 90.6 fL (80-98); NRBC Pct Auto 0.3 /100WBC (0.0-0.2); Platelet Count 349 X10*3/uL (160-400); Red Blood Count 3.93 X10*6/uL (4.20-5.50); Red Cell Distribution Width 14.7 % (11.0-16.0); White Blood Count 7.4 X10*3/uL (4.8-10.8)
[2021-01-14 17:53] LABS: Lactic Acid 1.4 mmol/L (0.5-2.0)
[2021-01-14 17:58] LABS: Lymphocytes Absolute Manual 0.5 X10*3/uL (0.6-4.8); Lymphocytes Percent Manual 7 % (20-40); Monocytes Absolute Manual 0.2 X10*3/uL (0.0-1.2); Monocytes Percent Manual 3 % (2-11); Neutrophils Percent Manual 90 % (45-73); Platelet Estimate NORMAL (NORMAL); Platelet Morphology Comment NORMAL; RBC Morphology NORMAL
[2021-01-14 18:00] LABS: Neutrophils Absolute Manual 6.7 X10*3/uL (2.2-7.9)
[2021-01-14 18:03] LABS: Alanine Aminotransferase 74 U/L (0-31); Albumin Level 3.5 g/dL (3.5-5.0); Alkaline Phosphatase 76 U/L (39-117); Anion Gap 13 (12-20); Aspartate Amino Transferase 118 U/L (5-31); B Type Natriuretic Peptide 31 pg/mL (<100); Bilirubin Direct 0.3 mg/dL (0.0-0.5); Bilirubin Total 0.6 mg/dL (0.0-1.0); Blood Urea Nitrogen 25 mg/dL (9-16); Calcium 8.5 mg/dL (8.4-10.2); Carbon Dioxide 30 mmol/L (22-29); Chloride 99 mmol/L (96-108); Creatinine Clr Calc Pharmacy 65.3; Estimated Glomerular Filt Rate 53; Glucose Random 125 mg/dL (60-115); Lipase 8 U/L (8-78); Potassium 4.3 mmol/L (3.3-5.1); Sodium 138 mmol/L (135-145); Total Protein 6.2 g/dL (6.5-8.0)
--- NOTE | 2021-01-14 18:38 | PM.IMHP ---
History of Present Illness Date of Service: 01/14/21 Chief Complaint: fall, hypoxia 60-year-old female was sent in from care home facility for acute on chronic respiratory failure with hypoxia. On 01/08/2021 patient was in the ED and tested positive with COVID, , at that time she was not hypoxic and was discharged to care home facility. On day of admission patient was at care home facility and had a mechanical fall. Staff there noted that patient was hypoxic to 77%. She was therefore brought to the ED. patient states that she is here because of her mechanical fall and back pain associated with it. She denies shortness of breath. She states that she feels like she is better from her COVID. However, patient is poor historian. She also mentioned that the care home facility staff had to increase her chronic home O2 from 3 L to 7 L recently. And that her back pain was present before her fall. Patient denies any chest pain, fevers. In ED noted to be hypoxic to 89% while on 100% non-rebreather. Therefore she was started on high-flow oxygen. At this time patient is in no acute distress and saturating 100% on 80% high-flow at 40 liters/minute. Chest x-ray showed bilateral opacities consistent with COVID. Review of Systems Review of Systems: Constitutional: Denies fever, denies Chills Eyes: denies blurry vision ENT: denies sore throat CVS: denies chest pain Respiratory: dyspnea GI: no abdominal pain : denies dysuria MSK: neck pain Skin: denies rash Neuro: denies specific motor weakness Psych: denies suicidal ideation Endocrine: denies heat/cold intoleratnce Hematologic: denies easy bleeding Allergy: denies hives [facility] Medical History Asthma-COPD overlap syndrome Bipolar 1 disorder COPD (chronic obstructive pulmonary disease) Depression with anxiety Diabetes Eosinophilia GERD (gastroesophageal reflux disease) Hemangioma Hypothyroidism Hypovitaminosis D Insomnia Lumbar degenerative disc disease Lupus Lupus (systemic lupus erythematosus) Neck mass Obesity Oxygen dependent Polyarthralgia Recurrent UTI Severe asthma Tachycardia Trigger finger of right hand Family History Father No problems noted. Mother No problems noted. Sister Nasopharyngeal cancer Family history: reviewed and not pertinent Surgical History History of carpal tunnel release History of section History of colonoscopy History of cystocele History of hysterectomy History of shoulder surgery History of tonsillectomy Social History Household Members: None Alcohol intake: never Smoking Status: Former smoker Tobacco Type: Cigarette Use of substances other than those prescribed or required for medical reasons: No Advance Directives: No Advance Directives Information Provided: Yes Current occupational status: disabled Current occupation: right and left handed--- HAS [employer] Meds Allergies Allergy/AdvReac Type Severity Reaction Status Date / Time unknown analgesia given Allergy Severe rash Uncoded 12/17/20 14:18 antihi Active Medications: Current Medications Generic Name Dose Route Start Last Admin Trade Name Freq PRN Reason Stop Dose Admin Pharmacy Consult 1 each 01/14/21 17:12 Consult Rx Perform Med Rec MISCELLANE ONCE PRN Consult order Home Medications Medication Instructions Recorded Confirmed Last Taken Type ipratropium 0.5 mg-albuterol 3 mg 3 ml INHALATION Q4-6H PRN 08/24/20 12/17/20 Unknown History (2.5 mg base)/3 mL nebulization soln oxygen-air delivery systems #1 08/24/20 12/17/20 Unknown History linaclotide 145 mcg capsule 145 mcg PO DAILY 12/17/20 01/14/21 Unknown History liraglutide 0.6 mg/0.1 mL (18 mg/3 0.6 mg SUBCUT DAILY 12/17/20 01/14/21 Unknown History mL) subcutaneous pen injector amitriptyline 1 tab PO BID 01/09/21 01/09/21 Unknown History amitriptyline 100 mg PO BEDTIME 01/09/21 01/14/21 Unknown History fluticasone furoate-vilanterol 1 puff INHALATION DAILY 01/09/21 01/14/21 Unknown History [Breo Ellipta] lubiprostone [Amitiza] 24 mcg PO BID 01/09/21 01/14/21 Unknown History albuterol sulfate 2 puff INHALATION Q4H PRN 01/14/21 01/14/21 Unknown History ascorbic acid (vitamin C) 250 mg PO DAILY 01/14/21 01/14/21 Unknown History azithromycin 250 mg PO DAILY 01/14/21 01/14/21 Unknown History bisacodyl 10 mg [place] DAILY PRN 01/14/21 01/14/21 Unknown History bupropion HCl 300 mg PO DAILY 01/14/21 01/14/21 Unknown History cholecalciferol (vitamin D3) 25 mcg PO DAILY 01/14/21 01/14/21 Unknown History [Vitamin D3] clonazepam 2 mg PO BEDTIME 01/14/21 01/14/21 Unknown History dextromethorphan-guaifenesin 1 tab PO Q12H 01/14/21 01/14/21 Unknown History [Mucinex DM] levothyroxine 50 mcg PO DAILY@0630 01/14/21 01/14/21 Unknown History magnesium hydroxide [Milk of 30 ml PO BEDTIME PRN 01/14/21 01/14/21 Unknown History Magnesia] montelukast [Singulair] 10 mg PO BEDTIME 01/14/21 01/14/21 Unknown History naloxone 4 mg INTRANASAL Q3M PRN 01/14/21 01/14/21 Unknown History tramadol 25 mg PO Q2D PRN 01/14/21 01/14/21 Unknown History tramadol 50 mg PO Q2D PRN 01/14/21 01/14/21 Unknown History zolpidem 5 mg PO BEDTIME PRN 01/14/21 01/14/21 Unknown History Physical Exam Vital Signs and Narrative: Vital Signs: Last Vital Signs Temp 99.0 F 01/14/21 18:18 Pulse 105 H 01/14/21 16:50 Resp 28 H 01/14/21 17:14 BP 122/83 01/14/21 16:50 Pulse Ox 97 01/14/21 16:50 Body Mass Index 47.7 General: no acute distress HEENT: atraumatic Neck: normal to visual inspection CVS: S1, S2, RRR Resp: diminished Chest: non tender GI: soft, non tender, non distended : no CVA tenderness Skin: no rashes Extremities: no edema Neuro: Oriented X3, grossly intact Psych: cooperative Results Labs CBC and Chem 7: 01/14/21 17:27 01/14/21 17:27 Labs: Laboratory Results - last 24 hr 01/14/21 01/14/21 01/14/21 17:27 17:27 17:27 MCV 90.6 MCH 28.5 MCHC 31.5 RDW 14.7 Plt Count 349 D MPV 10.0 Immature Gran % (Auto) Cancelled Neut % (Auto) Cancelled Lymph % (Auto) Cancelled [place] % (Auto) Cancelled Eos % (Auto) Cancelled Baso % (Auto) Cancelled Lymph # (Auto) Cancelled [place] # (Auto) Cancelled Eos # (Auto) Cancelled Baso # (Auto) Cancelled Abs Immat Gran (auto) Cancelled Absolute Neuts (auto) Cancelled Absolute Nucleated RBC 0.020 H Nucleated RBC % (auto) 0.3 H Neutrophils % (Manual) 90 H Lymphocytes % (Manual) 7 L Monocytes % (Manual) 3 Abs Neuts (Manual) 6.7 Lymphocytes # (Manual) 0.5 L Monocytes # (Manual) 0.2 Platelet Estimate NORMAL Plt Morphology Comment NORMAL RBC Morphology NORMAL Hold Blue Top Anion Gap 13 Estim Creat Clear Calc 65.3 Estimated GFR 53 Random Glucose 125 H Lactic Acid 1.4 Calcium 8.5 Total Bilirubin 0.6 Direct Bilirubin 0.3 AST 118 H ALT 74 H Alkaline Phosphatase 76 D B-Natriuretic Peptide Total Protein 6.2 L Albumin 3.5 Lipase 8 Hold Yellow Top 01/14/21 01/14/21 01/14/21 17:27 17:29 17:29 MCV MCH MCHC RDW Plt Count MPV Immature Gran % (Auto) Neut % (Auto) Lymph % (Auto) [place] % (Auto) Eos % (Auto) Baso % (Auto) Lymph # (Auto) [place] # (Auto) Eos # (Auto) Baso # (Auto) Abs Immat Gran (auto) Absolute Neuts (auto) Absolute Nucleated RBC Nucleated RBC % (auto) Neutrophils % (Manual) Lymphocytes % (Manual) Monocytes % (Manual) Abs Neuts (Manual) Lymphocytes # (Manual) Monocytes # (Manual) Platelet Estimate Plt Morphology Comment RBC Morphology Hold Blue Top SEE NOTE Anion Gap Estim Creat Clear Calc Estimated GFR Random Glucose Lactic Acid Calcium Total Bilirubin Direct Bilirubin AST ALT Alkaline Phosphatase B-Natriuretic Peptide 31 Total Protein Albumin Lipase Hold Yellow Top See Note Imaging Radiologist's Impressions: Impressions Chest X-Ray 01/14/21 17:30 IMPRESSION: Worsening bilateral patchy airspace opacities. Assessment and Plan (1) COVID-19: Status: Acute 60-year-old female presented with hypoxia Acute on chronic hypoxic respiratory failure secondary to COVID pneumonia and asthma/COPD exacerbation Decadron Pulmonary eval High risk due to morbid obesity Weight loss encouraged Bipolar Continue mood stabilizers Diabetes Insulin hypothyroid synthroid
--- NOTE | 2021-01-14 18:45 | PC.NURSE ---
Seen by Dr Flores for admission. Plan to titrate pt off high flow on cannula. Plan for admission. Pt sleepy but awakes easily. Sinus tach on tele, rate 100. Po fluids given and tolerated well.
--- NOTE | 2021-01-14 19:15 | PC.NURSE ---
PT RESTING IN STRETCHER AWAITING ROOM ASSIGNMENT. PT ALERT, RESPIRATIONS EASY, N/L. SKIN W/D. WILL CONTINUE TO MONITOR.
--- NOTE | 2021-01-14 20:30 | PC.NURSE ---
PT RESTING IN STRETCHER, RESPIRATIONS N/L. PT AWAITING FOR ROOM ASSIGNMENT.,
--- NOTE | 2021-01-14 23:05 | PC.NURSE ---
PT RESTING IN STRETCHER, PT WAS DESATING TO 77% PT PLACED ON NRB WITH PO 95%. RESPIRATORY IN ROOM FOR RE-EVAL. PT DENIES ANY COMPLAINTS AT THIS TIME. PT AWAITING FOR ROOM ASSIGNMENT
[2021-01-15] VITALS (9 sets, daily range): BP systolic 108–126; BP diastolic 63–78; PULSE 89–101; RESP 16–30; TEMP 36.2–36.6; O2SAT 85–99
--- NOTE | 2021-01-15 02:15 | PC.NURSE ---
PT DENIES ANY COMPLAINTS. PT WAKES TO VOICE. PT AWAITING FOR ROOM ASSIGNMENT. VS OBTAINED. PT AWAITING FOR ROOM ASSIGNMENT.
--- NOTE | 2021-01-15 03:40 | PC.NURSE ---
VS OBTAINED. PT AWAITING FOR ROOM ASSIGNMENT. PT HAS ROOM ASSIGNMENT AT 0700. UNABLE TO GIVE REPORT AT THIS TIME.
--- NOTE | 2021-01-15 05:48 | PC.NURSE ---
REPLACED PT WITH A VENTI-MASK AND PT DESATS TO 77%. PT PUT BACK ON NRB WITH A PO OF 96%. PT AWAKES TO VERBAL STIMULI, RESPIRATIONS N/L. SKIN WARM, DRY. PT DENIES ANY PAIN AT THIS TIME. PT BOOSTED UP IN BED FOR BETTER BREATHING. PT REMAINS ON MONITOR WITH HR 97. VS OBTAINED.
--- NOTE | 2021-01-15 07:00 | PC.NURSE ---
REPORT TAKEN FROM WENDY PRADO. PATIENT HAS BED ASSIGNMENT, 475, CALLED FOR REPORT, WAITING FOR FLOOR RN TO CALL BACK AND TKE REPORT.
--- NOTE | 2021-01-15 07:04 | PC.NURSE ---
PATIENT RESTING/SLEEPING ON STRETCHER. NO DISTRESS. VITALS UPDATED.
[2021-01-15 08:10] LABS: Glucose, Whole Blood 84 mg/dL (60-115)
--- NOTE | 2021-01-15 08:24 | MHC.CM.PN ---
pt is from [facility]. , ma plan is to return there when medically stable. ref. to this facility has been made. hcp is christine drake, ph: [phone]. cm to cont. to follow.
[2021-01-15] MEDS: lamoTRIgine 100 MG TABLET 200 MG PO ×2 (09:00→20:34)
[2021-01-15] MEDS: Gabapentin 400 MG CAPSULE PO ×2 (09:00→20:34)
[2021-01-15] MEDS: buPROPion HCl XL 300 MG TAB.ER.24H PO (09:00)
[2021-01-15] MEDS: Levothyroxine Sodium 50 MCG TABLET PO (09:01)
[2021-01-15] MEDS: 0.9 % Sodium Chloride Flush 3 ML SYRINGE IVFLUSH ×3 (09:02→20:35)
[2021-01-15] MEDS: Enoxaparin Sodium 40 MG/0.4 ML SYRINGE SUBCUT (09:02)
[2021-01-15] MEDS: dexAMETHasone sod phosphate 4 MG/ML VIAL 6 MG IVPUSH (09:03)
[2021-01-15] MEDS: Omeprazole 20 MG CAPSULE.DR PO ×2 (09:03→20:34)
[2021-01-15 11:19] LABS: Glucose, Whole Blood 108 mg/dL (60-115)
--- NOTE | 2021-01-15 11:54 | P.PNIM_ITS ---
Subjective Subjective Date of Service: 01/15/21 Interval History: body aches Cardiovascular Cardiovascular: Reports no additional cardiovascular complaints Gastrointestinal Gastrointestinal: Reports no additional gastrointestinal complaints Physical Exam Vital Signs: Vital Signs: Last Vital Signs Temp 97.8 F 01/15/21 11:21 Pulse 101 H 01/15/21 11:21 Resp 30 H 01/15/21 11:21 BP 126/63 01/15/21 11:21 Pulse Ox 92 01/15/21 11:21 Body Mass Index 47.7 General: AO X 3, no acute distress Resp: diminished CVS: S1,S2,RRR GI: soft, non tender, non distended Neuro: motor grossly intact Psych: appropriate affect Objective Data Current Medications Generic Name Dose Route Start Last Admin Trade Name Freq PRN Reason Stop Dose Admin Amitriptyline HCl 100 mg 01/15/21 07:30 01/15/21 09:02 Amitriptyline Hcl 50 Mg Tablet PO Not Given BEDTIME YOBANI Bupropion HCl 300 mg 01/15/21 09:00 01/15/21 09:00 Bupropion Hcl Xl 300 Mg Tab.Er.24h PO 300 mg DAILY YOBANI Administration Clonazepam 2 mg 01/15/21 21:00 Clonazepam 1 Mg Tablet PO BEDTIME [facility] Dexamethasone Sodium Phosphate 6 mg 01/15/21 07:30 01/15/21 09:06 Dexamethasone Sod Phosphate 4 Mg/Ml Vial IVPUSH Not Given DAILY [facility] Enoxaparin Sodium 40 mg 01/15/21 08:00 01/15/21 09:02 Enoxaparin Sodium 40 Mg/0.4 Ml Syringe SUBCUT 40 mg Q24H YOBANI Administration Fluticasone/Vilanterol 1 puff 01/15/21 09:00 01/15/21 11:27 Fluticasone/Vilanterol 200/25 Blst.W.Dev INHALE Not Given DAILY [facility] Gabapentin 400 mg 01/15/21 07:30 01/15/21 09:05 Gabapentin 400 Mg Capsule PO Not Given BID [facility] Insulin Human Lispro 0 unit 01/15/21 07:30 01/15/21 11:45 Insulin Lispro 100 Unit/Ml 3 Ml Vial SUBCUT Not Given QIDACHS [facility] Protocol Lamotrigine 200 mg 01/15/21 07:30 01/15/21 09:06 Lamotrigine 100 Mg Tablet PO Not Given BID [facility] Levothyroxine Sodium 50 mcg 01/15/21 07:30 01/15/21 09:01 Levothyroxine Sodium 50 Mcg Tablet PO 50 mcg DAILY@0630 [facility] Administration Montelukast Sodium 10 mg 01/15/21 07:30 01/15/21 09:01 Montelukast Sodium 10 Mg Tablet PO Not Given BEDTIME YOBANI Omeprazole 20 mg 01/15/21 09:00 01/15/21 09:03 Omeprazole 20 Mg Capsule. PO 20 mg BID [facility] Administration Pharmacy Consult 1 each 01/14/21 17:12 Consult Rx Perform Med Rec MISCELLANE ONCE PRN Consult order Sodium Chloride 3 ml 01/15/21 07:30 01/15/21 09:05 0.9 % Sodium Chloride Flush 3 Ml Syringe IVFLUSH Not Given QSHIFT [facility] Labs CBC & Chem 7: 01/14/21 17:27 01/14/21 17:27 Assessment and Plan (1) COVID-19: Status: Acute Assessment and Plan: 60-year-old female presented with hypoxia Acute on chronic hypoxic respiratory failure secondary to COVID pneumonia and asthma/COPD exacerbation Decadron day 12/09 High risk due to morbid obesity Weight loss encouraged goal sao2 91-94% Bipolar Continue mood stabilizers Diabetes Insulin hypothyroid synthroid
[2021-01-15 16:41] LABS: Glucose, Whole Blood 145 mg/dL (60-115)
[2021-01-15 17:12] LABS: Glucose Urine UA NEG (NEG); Leukocyte Esterase Urine NEG (NEG); Nitrite Urine NEG (NEG); Urine Blood NEG (NEG); Urine Ketones NEG (NEG); Urine Protein NEG (NEG-TRACE)
[2021-01-15 17:13] LABS: Appearance Urine HAZY; Color Urine YELLOW
[2021-01-15 20:05] LABS: Glucose, Whole Blood 158 mg/dL (60-115)
[2021-01-15] MEDS: Montelukast Sodium 10 MG TABLET PO (20:34)
[2021-01-15] MEDS: clonazePAM 1 MG TABLET 2 MG PO (20:34)
[2021-01-15] MEDS: Amitriptyline HCl 50 MG TABLET 100 MG PO (20:35)
[2021-01-15] MEDS: Insulin Lispro 100 UNIT/ML 3 ML VIAL SUBCUT (20:35)
[2021-01-16] VITALS (7 sets, daily range): BP systolic 102–130; BP diastolic 53–82; PULSE 67–98; RESP 18–20; TEMP 36–36.7; O2SAT 92–99
[2021-01-16 00:06] LABS: Glucose, Whole Blood 109 mg/dL (60-115)
[2021-01-16] MEDS: Levothyroxine Sodium 50 MCG TABLET PO (05:57)
--- NOTE | 2021-01-16 06:41 | PC.NURSE ---
patient was bladder scanned at midnight for 249ml up to commode 6am no void, bladder scanned for 228ml .
[2021-01-16 06:58] LABS: Hematocrit 34.9 % (37-47); Hemoglobin 10.7 g/dl (12.0-16.0); Mean Corpuscular HGB Conc 30.7 g/dl (31.0-35.0); Mean Corpuscular Hemoglobin 28.5 pg (27.0-33.0); Mean Corpuscular Volume 92.8 fL (80-98); Mean Platelet Volume 10.2 fL (9.4-12.3); NRBC Pct Auto 0.4 /100WBC (0.0-0.2); Platelet Count 381 X10*3/uL (160-400); Red Blood Count 3.76 X10*6/uL (4.20-5.50); Red Cell Distribution Width 15.1 % (11.0-16.0); White Blood Count 7.1 X10*3/uL (4.8-10.8)
[2021-01-16 07:18] LABS: Anion Gap 13 (12-20); Blood Urea Nitrogen 21 mg/dL (9-16); Calcium 8.4 mg/dL (8.4-10.2); Carbon Dioxide 33 mmol/L (22-29); Chloride 101 mmol/L (96-108); Creatinine Clr Calc Pharmacy 84.7; Estimated Glomerular Filt Rate > 60; Glucose Random 86 mg/dL (60-115); Potassium 4.3 mmol/L (3.3-5.1); Sodium 143 mmol/L (135-145)
[2021-01-16 07:32] LABS: Band Neutrophils Percent 7 % (3-5); Lymphocytes Absolute Manual 0.6 X10*3/uL (0.6-4.8); Lymphocytes Percent Manual 9 % (20-40); Metamyelocytes Absolute 0.4 X10*3/uL; Metamyelocytes Percent 5 %; Monocytes Absolute Manual 0.1 X10*3/uL (0.0-1.2); Monocytes Percent Manual 2 % (2-11); Myelocytes Absolute 0.1 X10*/uL; Myelocytes Percent 1 %; Neutrophils Absolute Manual 5.9 X10*3/uL (2.2-7.9); Neutrophils Percent Manual 76 % (45-73)
[2021-01-16 07:33] LABS: Large Platelet PRESENT; Platelet Estimate NORMAL (NORMAL); Platelet Morphology Comment NOTED
[2021-01-16 07:35] LABS: Macrocytosis 1+ (5-14) /OIF; RBC Morphology NOTED
[2021-01-16 07:36] LABS: Polychromasia 1+ (0-2) /OIF
[2021-01-16 07:58] LABS: Glucose, Whole Blood 70 mg/dL (60-115)
[2021-01-16] MEDS: Fluticasone/Vilanterol 200/25 BLST.W.DEV 1 PUFF INHALE ×2 (08:25→08:30)
[2021-01-16] MEDS: Omeprazole 20 MG CAPSULE.DR PO ×2 (09:09→20:54)
[2021-01-16] MEDS: dexAMETHasone sod phosphate 4 MG/ML VIAL 6 MG IVPUSH (09:09)
[2021-01-16] MEDS: lamoTRIgine 100 MG TABLET 200 MG PO ×2 (09:09→20:54)
[2021-01-16] MEDS: buPROPion HCl XL 300 MG TAB.ER.24H PO (09:09)
[2021-01-16] MEDS: 0.9 % Sodium Chloride Flush 3 ML SYRINGE IVFLUSH ×2 (09:09→16:51)
[2021-01-16] MEDS: Gabapentin 400 MG CAPSULE PO ×2 (09:09→20:54)
[2021-01-16] MEDS: Enoxaparin Sodium 40 MG/0.4 ML SYRINGE SUBCUT (09:09)
[2021-01-16 10:41] LABS: VBG Base Excess 8.5 mmol/L; VBG HCO3 34 mmol/L (22-26); VBG pCO2 51 mmHg; VBG pH 7.43 (7.32-7.43); VBG pO2 29 mmHg
[2021-01-16 11:03] LABS: Venous Blood Gas Refer to POC result
[2021-01-16 11:16] LABS: Glucose, Whole Blood 66 mg/dL (60-115)
--- NOTE | 2021-01-16 11:17 | HO.PM.IMPN ---
Subjective Subjective Date of Service: 01/16/21 Interval History: body aches Cardiovascular Cardiovascular: Reports no additional cardiovascular complaints Gastrointestinal Gastrointestinal: Reports no additional gastrointestinal complaints Physical Exam Vital Signs: Vital Signs: Last Vital Signs Temp 97.3 F 01/16/21 07:34 Pulse 94 01/16/21 07:34 Resp 20 01/16/21 07:34 BP 126/79 01/16/21 07:34 Pulse Ox 95 01/16/21 07:34 Body Mass Index 47.7 General: AO X 3, no acute distress Resp: CTA bilateral CVS: S1,S2,RRR GI: soft, non tender, non distended Neuro: motor grossly intact Psych: appropriate affect Objective Data Current Medications Generic Name Dose Route Start Last Admin Trade Name Freq PRN Reason Stop Dose Admin Amitriptyline HCl 100 mg 01/15/21 07:30 01/15/21 20:35 Amitriptyline Hcl 50 Mg Tablet PO 100 mg BEDTIME YOBANI Administration Bupropion HCl 300 mg 01/15/21 09:00 01/16/21 09:09 Bupropion Hcl Xl 300 Mg Tab.Er.24h PO 300 mg DAILY [facility] Administration Clonazepam 2 mg 01/15/21 21:00 01/15/21 20:34 Clonazepam 1 Mg Tablet PO 2 mg BEDTIME [facility] Administration Dexamethasone Sodium Phosphate 6 mg 01/15/21 07:30 01/16/21 09:09 Dexamethasone Sod Phosphate 4 Mg/Ml Vial IVPUSH 6 mg DAILY [facility] Administration Enoxaparin Sodium 40 mg 01/15/21 08:00 01/16/21 09:09 Enoxaparin Sodium 40 Mg/0.4 Ml Syringe SUBCUT 40 mg Q24H [facility] Administration Fluticasone/Vilanterol 1 puff 01/15/21 09:00 01/16/21 08:30 Fluticasone/Vilanterol 200/25 Blst.W.Dev INHALE 1 puff DAILY [facility] Administration Gabapentin 400 mg 01/15/21 07:30 01/16/21 09:09 Gabapentin 400 Mg Capsule PO 400 mg BID [facility] Administration Insulin Human Lispro 0 unit 01/15/21 07:30 01/16/21 07:30 Insulin Lispro 100 Unit/Ml 3 Ml Vial SUBCUT Not Given QIDACHS [facility] Protocol Lamotrigine 200 mg 01/15/21 07:30 01/16/21 09:09 Lamotrigine 100 Mg Tablet PO 200 mg BID [facility] Administration Levothyroxine Sodium 50 mcg 01/15/21 07:30 01/16/21 05:57 Levothyroxine Sodium 50 Mcg Tablet PO 50 mcg DAILY@0630 [facility] Administration Montelukast Sodium 10 mg 01/15/21 07:30 01/15/21 20:34 Montelukast Sodium 10 Mg Tablet PO 10 mg BEDTIME [facility] Administration Omeprazole 20 mg 01/15/21 09:00 01/16/21 09:09 Omeprazole 20 Mg Capsule. PO 20 mg BID YOBANI Administration Pharmacy Consult 1 each 01/14/21 17:12 Consult Rx Perform Med Rec MISCELLANE ONCE PRN Consult order Sodium Chloride 3 ml 01/15/21 07:30 01/16/21 09:09 0.9 % Sodium Chloride Flush 3 Ml Syringe IVFLUSH 3 ml QSHIFT [facility]OBANI Administration Labs CBC & Chem 7: 01/16/21 05:57 01/16/21 05:57 Microbiology Microbiology Results: Microbiology 01/14/21 17:27 Blood - Venous Blood Culture - Preliminary No growth after 24 hours. 01/14/21 17:20 Blood - Venous Blood Culture - Preliminary No growth after 24 hours. Assessment and Plan (1) COVID-19: Status: Acute Assessment and Plan: 60-year-old female presented with hypoxia Acute on chronic hypoxic respiratory failure secondary to COVID pneumonia and asthma/COPD exacerbation Decadron day 01/06 High risk due to morbid obesity Weight loss encouraged goal sao2 91-94% Bipolar Continue mood stabilizers Diabetes Insulin hypothyroid synthroid
[2021-01-16 16:02] LABS: Glucose, Whole Blood 180 mg/dL (60-115)
--- NOTE | 2021-01-16 16:15 | PC.NURSE ---
patient not able to void.bladder scanned for 413 ml.st cath for 600,Dr Flores notified via [employer].
[2021-01-16] MEDS: Insulin Lispro 100 UNIT/ML 3 ML VIAL SUBCUT (16:51)
[2021-01-16 20:15] LABS: Glucose, Whole Blood 121 mg/dL (60-115)
[2021-01-16] MEDS: clonazePAM 1 MG TABLET 2 MG PO (20:53)
[2021-01-16] MEDS: Amitriptyline HCl 50 MG TABLET 100 MG PO (20:54)
[2021-01-16] MEDS: Montelukast Sodium 10 MG TABLET PO (20:54)
[2021-01-17] VITALS (7 sets, daily range): BP systolic 104–125; BP diastolic 61–71; PULSE 85–98; RESP 17–20; TEMP 36.1–37.2; O2SAT 92–97
[2021-01-17] MEDS: 0.9 % Sodium Chloride Flush 3 ML SYRINGE IVFLUSH ×3 (00:17→15:03)
--- NOTE | 2021-01-17 05:30 | MHC.PIE ---
P - no void I - Patient unable to void, pt scanned for 558ml, Doctor Jonathan notified, states ok to straight cath. Patient straight cathed for 1000cc wilver urine. Patient tolerated procedure well. E - MD states will update am team.
--- NOTE | 2021-01-17 06:07 | PM.EVENT ---
Event Note Date of Service: 01/17/21 Event Note: Urinary retention: Patient had retention of 2000 cc. Placed a [place] catheter. Urology consulted.
[2021-01-17] MEDS: Levothyroxine Sodium 50 MCG TABLET PO (06:12)
[2021-01-17 07:19] LABS: Glucose, Whole Blood 87 mg/dL (60-115)
[2021-01-17] MEDS: Fluticasone/Vilanterol 200/25 BLST.W.DEV 1 PUFF INHALE (08:28)
[2021-01-17] MEDS: Enoxaparin Sodium 40 MG/0.4 ML SYRINGE SUBCUT (09:09)
[2021-01-17] MEDS: Gabapentin 400 MG CAPSULE PO ×2 (09:10→20:14)
[2021-01-17] MEDS: buPROPion HCl XL 300 MG TAB.ER.24H PO (09:10)
[2021-01-17] MEDS: Omeprazole 20 MG CAPSULE.DR PO ×2 (09:10→20:14)
[2021-01-17] MEDS: dexAMETHasone sod phosphate 4 MG/ML VIAL 6 MG IVPUSH (09:10)
[2021-01-17] MEDS: lamoTRIgine 100 MG TABLET 200 MG PO ×2 (09:10→20:14)
--- NOTE | 2021-01-17 10:01 | P.PNIM_ITS ---
Subjective Subjective Date of Service: 01/17/21 Interval History: feeling better, urinary retentnion Cardiovascular Cardiovascular: Reports no additional cardiovascular complaints Respiratory Respiratory: Reports no additional respiratory complaints Physical Exam Vital Signs: Vital Signs: Last Vital Signs Temp 97 F 01/17/21 07:34 Pulse 85 01/17/21 07:34 Resp 17 01/17/21 07:34 BP 125/69 01/17/21 07:34 Pulse Ox 95 01/17/21 07:34 Body Mass Index 47.7 General: AO X 3, no acute distress Resp: CTA bilateral CVS: S1,S2,RRR GI: soft, non tender, non distended Neuro: motor grossly intact Psych: appropriate affect Objective Data Current Medications Generic Name Dose Route Start Last Admin Trade Name Freq PRN Reason Stop Dose Admin Amitriptyline HCl 100 mg 01/15/21 07:30 01/16/21 20:54 Amitriptyline Hcl 50 Mg Tablet PO 100 mg BEDTIME YOBANI Administration Bupropion HCl 300 mg 01/15/21 09:00 01/17/21 09:10 Bupropion Hcl Xl 300 Mg Tab.Er.24h PO 300 mg DAILY [facility]ANI Administration Clonazepam 2 mg 01/15/21 21:00 01/16/21 20:53 Clonazepam 1 Mg Tablet PO 2 mg BEDTIME Y[facility] Administration Dexamethasone Sodium Phosphate 6 mg 01/15/21 07:30 01/17/21 09:10 Dexamethasone Sod Phosphate 4 Mg/Ml Vial IVPUSH 6 mg DAILY [facility]ANI Administration Enoxaparin Sodium 40 mg 01/15/21 08:00 01/17/21 09:09 Enoxaparin Sodium 40 Mg/0.4 Ml Syringe SUBCUT 40 mg Q24H YOBANI Administration Fluticasone/Vilanterol 1 puff 01/15/21 09:00 01/17/21 08:28 Fluticasone/Vilanterol 200/25 Blst.W.Dev INHALE 1 puff DAILY [facility]ANI Administration Gabapentin 400 mg 01/15/21 07:30 01/17/21 09:10 Gabapentin 400 Mg Capsule PO 400 mg BID YOBANI Administration Insulin Human Lispro 0 unit 01/15/21 07:30 01/17/21 07:29 Insulin Lispro 100 Unit/Ml 3 Ml Vial SUBCUT Not Given QIDACHS [facility] Protocol Lamotrigine 200 mg 01/15/21 07:30 01/17/21 09:10 Lamotrigine 100 Mg Tablet PO 200 mg BID YOBANI Administration Levothyroxine Sodium 50 mcg 01/15/21 07:30 01/17/21 06:12 Levothyroxine Sodium 50 Mcg Tablet PO 50 mcg DAILY@0630 [facility] Administration Montelukast Sodium 10 mg 01/15/21 07:30 01/16/21 20:54 Montelukast Sodium 10 Mg Tablet PO 10 mg BEDTIME [facility] Administration Omeprazole 20 mg 01/15/21 09:00 01/17/21 09:10 Omeprazole 20 Mg Capsule. PO 20 mg BID YOBANI Administration Pharmacy Consult 1 each 01/14/21 17:12 Consult Rx Perform Med Rec MISCELLANE ONCE PRN Consult order Sodium Chloride 3 ml 01/15/21 07:30 01/17/21 09:10 0.9 % Sodium Chloride Flush 3 Ml Syringe IVFLUSH 3 ml QSHIFT [facility] Administration Labs CBC & Chem 7: 01/16/21 05:57 01/16/21 05:57 Microbiology Microbiology Results: Microbiology 01/14/21 17:27 Blood - Venous Blood Culture - Preliminary No growth after 48 hours. 01/14/21 17:20 Blood - Venous Blood Culture - Preliminary No growth after 48 hours. Assessment and Plan (1) COVID-19: Status: Acute Assessment and Plan: 60-year-old female presented with hypoxia Acute on chronic hypoxic respiratory failure secondary to COVID pneumonia and asthma/COPD exacerbation Decadron day 02/06 High risk due to morbid obesity Weight loss encouraged goal sao2 91-94% continue to wean, once down to about 5L will dc back to SNF urinary retention needed ru[facility], outpaitent voiding trial once ambulating better Bipolar Continue mood stabilizers Diabetes Insulin hypothyroid synthroid
[2021-01-17 11:22] LABS: Glucose, Whole Blood 100 mg/dL (60-115)
[2021-01-17 16:20] LABS: Glucose, Whole Blood 134 mg/dL (60-115)
[2021-01-17] MEDS: Amitriptyline HCl 50 MG TABLET 100 MG PO (20:13)
[2021-01-17] MEDS: clonazePAM 1 MG TABLET 2 MG PO (20:14)
[2021-01-17] MEDS: Montelukast Sodium 10 MG TABLET PO (20:14)
[2021-01-17 20:36] LABS: Glucose, Whole Blood 166 mg/dL (60-115)
[2021-01-17] MEDS: Insulin Lispro 100 UNIT/ML 3 ML VIAL SUBCUT (21:00)
[2021-01-18] VITALS (7 sets, daily range): BP systolic 100–123; BP diastolic 56–76; PULSE 87–94; RESP 18–22; TEMP 36.1–36.8; O2SAT 91–96; BMI 47.7
[2021-01-18] MEDS: 0.9 % Sodium Chloride Flush 3 ML SYRINGE IVFLUSH ×4 (00:04→21:01)
[2021-01-18] MEDS: Levothyroxine Sodium 50 MCG TABLET PO (06:19)
[2021-01-18 07:57] LABS: Glucose, Whole Blood 96 mg/dL (60-115)
[2021-01-18] MEDS: Fluticasone/Vilanterol 200/25 BLST.W.DEV 1 PUFF INHALE (08:18)
[2021-01-18] MEDS: dexAMETHasone sod phosphate 4 MG/ML VIAL 6 MG IVPUSH (09:22)
[2021-01-18] MEDS: Enoxaparin Sodium 40 MG/0.4 ML SYRINGE SUBCUT (09:22)
[2021-01-18] MEDS: lamoTRIgine 100 MG TABLET 200 MG PO ×2 (09:23→20:56)
[2021-01-18] MEDS: Gabapentin 400 MG CAPSULE PO ×2 (09:23→20:56)
[2021-01-18] MEDS: buPROPion HCl XL 300 MG TAB.ER.24H PO (09:23)
[2021-01-18] MEDS: Omeprazole 20 MG CAPSULE.DR PO ×2 (09:23→20:56)
--- NOTE | 2021-01-18 09:50 | HO.PM.IMPN ---
Subjective Subjective Date of Service: 01/18/21 Interval History: feeling better Cardiovascular Cardiovascular: Reports no additional cardiovascular complaints Gastrointestinal Gastrointestinal: Reports no additional gastrointestinal complaints Physical Exam Vital Signs: Vital Signs: Last Vital Signs Temp 97.0 F 01/18/21 08:00 Pulse 90 01/18/21 08:00 Resp 22 H 01/18/21 08:00 BP 108/68 01/18/21 08:00 Pulse Ox 91 L 01/18/21 08:00 Body Mass Index 47.7 General: AO X 3, no acute distress Resp: CTA bilateral CVS: S1,S2,RRR GI: soft, non tender, non distended Neuro: motor grossly intact Psych: appropriate affect Objective Data Current Medications Generic Name Dose Route Start Last Admin Trade Name Freq PRN Reason Stop Dose Admin Albuterol Sulfate 4 puff 01/17/21 19:36 Albuterol Sulfate 90 Mcg 8 Gm Inhaler INHALE Q2H PRN Shortness of Breath/Wheezing Amitriptyline HCl 100 mg 01/15/21 07:30 01/17/21 20:13 Amitriptyline Hcl 50 Mg Tablet PO 100 mg BEDTIME YOBANI Administration Bupropion HCl 300 mg 01/15/21 09:00 01/18/21 09:23 Bupropion Hcl Xl 300 Mg Tab.Er.24h PO 300 mg DAILY YOBANI Administration Clonazepam 2 mg 01/15/21 21:00 01/17/21 20:14 Clonazepam 1 Mg Tablet PO 2 mg BEDTIME YOBANI Administration Dexamethasone Sodium Phosphate 6 mg 01/15/21 07:30 01/18/21 09:22 Dexamethasone Sod Phosphate 4 Mg/Ml Vial IVPUSH 6 mg DAILY YOBANI Administration Enoxaparin Sodium 40 mg 01/15/21 08:00 01/18/21 09:22 Enoxaparin Sodium 40 Mg/0.4 Ml Syringe SUBCUT 40 mg Q24H YOBANI Administration Fluticasone/Vilanterol 1 puff 01/15/21 09:00 01/18/21 08:18 Fluticasone/Vilanterol 200/25 Blst.W.Dev INHALE 1 puff DAILY YOBANI Administration Gabapentin 400 mg 01/15/21 07:30 01/18/21 09:23 Gabapentin 400 Mg Capsule PO 400 mg BID YOBANI Administration Insulin Human Lispro 0 unit 01/15/21 07:30 01/18/21 08:49 Insulin Lispro 100 Unit/Ml 3 Ml Vial SUBCUT Not Given QIDACHS [facility] Protocol Lamotrigine 200 mg 01/15/21 07:30 01/18/21 09:23 Lamotrigine 100 Mg Tablet PO 200 mg BID YBOANI Administration Levothyroxine Sodium 50 mcg 01/15/21 07:30 01/18/21 06:19 Levothyroxine Sodium 50 Mcg Tablet PO 50 mcg DAILY@0630 YOBANI Administration Montelukast Sodium 10 mg 01/15/21 07:30 01/17/21 20:14 Montelukast Sodium 10 Mg Tablet PO 10 mg BEDTIME YOBANI Administration Omeprazole 20 mg 01/15/21 09:00 01/18/21 09:23 Omeprazole 20 Mg Capsule. PO 20 mg BID [facility] Administration Pharmacy Consult 1 each 01/14/21 17:12 Consult Rx Perform Med Rec MISCELLANE ONCE PRN Consult order Sodium Chloride 3 ml 01/15/21 07:30 01/18/21 09:23 0.9 % Sodium Chloride Flush 3 Ml Syringe IVFLUSH 3 ml QSHIFT [facility] Administration Labs CBC & Chem 7: 01/16/21 05:57 01/16/21 05:57 Microbiology Microbiology Results: Microbiology 01/14/21 17:27 Blood - Venous Blood Culture - Preliminary No growth after 48 hours. 01/14/21 17:20 Blood - Venous Blood Culture - Preliminary No growth after 48 hours. Assessment and Plan (1) COVID-19: Status: Acute Assessment and Plan: 60-year-old female presented with hypoxia Acute on chronic hypoxic respiratory failure secondary to COVID pneumonia and asthma/COPD exacerbation Decadron day 03/08 High risk due to morbid obesity Weight loss encouraged goal sao2 91-94% continue to wean, once down to about 5L will dc back to SNF, was still hypoxic on 5L today in the mid 80s urinary retention needed ruiz place, outpatient voiding trial once ambulating better Bipolar Continue mood stabilizers Diabetes Insulin hypothyroid synthroid
--- NOTE | 2021-01-18 10:55 | MHC.CM.PN ---
Patient is on 5 liters O2 via NC and day 02/06 of IV Dexamethasone for COVID+ on 01/08. Patient also need urology cons for urinary retention. Discharge plan is to return to [facility], will need S transport. CM will continue to follow for discharge plan.
[2021-01-18 11:50] LABS: Glucose, Whole Blood 79 mg/dL (60-115)
[2021-01-18 16:19] LABS: Glucose, Whole Blood 143 mg/dL (60-115)
[2021-01-18] MEDS: polyethylene glycoL 3350 17 GM POWD.PACK PO (16:51)
--- NOTE | 2021-01-18 18:42 | PC.NURSE ---
Patient OOB to recliner for a brief period of time. Patient weaned from 5 L to 4 L of O2 , maintaining O2 SAT in the low 90s. Patient slightly confused today, keeps saying that she needs to fast for a procedure, which is not why she is here. F/C draining wilver urine, Urology consult pending for urinary retention. One time dose of Miralax ordered for difficulty having BM.
[2021-01-18 20:10] LABS: Glucose, Whole Blood 154 mg/dL (60-115)
[2021-01-18] MEDS: Insulin Lispro 100 UNIT/ML 3 ML VIAL SUBCUT (20:55)
[2021-01-18] MEDS: clonazePAM 1 MG TABLET 2 MG PO (20:55)
[2021-01-18] MEDS: Amitriptyline HCl 50 MG TABLET 100 MG PO (20:56)
[2021-01-18] MEDS: Montelukast Sodium 10 MG TABLET PO (20:56)
[2021-01-19 03:53] VITALS: BP 113/70; PULSE 90; RESP 18; TEMP 36.9; O2SAT 93
[2021-01-19] MEDS: Levothyroxine Sodium 50 MCG TABLET PO (05:42)
[2021-01-19 06:45] LABS: Hematocrit 35.3 % (37-47); Hemoglobin 10.9 g/dl (12.0-16.0); Mean Corpuscular HGB Conc 30.9 g/dl (31.0-35.0); Mean Corpuscular Hemoglobin 28.7 pg (27.0-33.0); Mean Corpuscular Volume 92.9 fL (80-98); Mean Platelet Volume 10.1 fL (9.4-12.3); Platelet Count 436 X10*3/uL (160-400); Red Cell Distribution Width 15.5 % (11.0-16.0); White Blood Count 7.3 X10*3/uL (4.8-10.8)
[2021-01-19 06:55] LABS: Anion Gap 15 (12-20); Blood Urea Nitrogen 19 mg/dL (9-16); Calcium 8.5 mg/dL (8.4-10.2); Carbon Dioxide 30 mmol/L (22-29); Chloride 103 mmol/L (96-108); Creatinine Clr Calc Pharmacy 83.6; Estimated Glomerular Filt Rate > 60; Glucose Fasting 123 mg/dL (60-99); Potassium 4.5 mmol/L (3.3-5.1); Sodium 143 mmol/L (135-145)
[2021-01-19 07:14] LABS: Glucose, Whole Blood 105 mg/dL (60-115)
[2021-01-19 07:37] LABS: Band Neutrophils Percent 9 % (3-5); Lymphocytes Absolute Manual 0.9 X10*3/uL (0.6-4.8); Lymphocytes Percent Manual 12 % (20-40); Metamyelocytes Absolute 0.2 X10*3/uL; Metamyelocytes Percent 3 %; Monocytes Absolute Manual 0.1 X10*3/uL (0.0-1.2); Monocytes Percent Manual 2 % (2-11); Neutrophils Absolute Manual 6.1 X10*3/uL (2.2-7.9); Neutrophils Percent Manual 74 % (45-73)
[2021-01-19 07:38] LABS: Platelet Estimate INCREASED (NORMAL); Platelet Morphology Comment NORMAL
[2021-01-19 07:40] LABS: Acanthocytes 1+ (0-2) /OIF; Ovalocytes 1+ (5-14) /OIF; Polychromasia 1+ (0-2) /OIF; RBC Morphology NOTED
[2021-01-19 07:42] VITALS: BP 112/70; PULSE 88; RESP 19; TEMP 36.4; O2SAT 97
[2021-01-19] MEDS: 0.9 % Sodium Chloride Flush 3 ML SYRINGE IVFLUSH (08:59)
[2021-01-19] MEDS: lamoTRIgine 100 MG TABLET 200 MG PO (08:59)
[2021-01-19] MEDS: Enoxaparin Sodium 40 MG/0.4 ML SYRINGE SUBCUT (08:59)
[2021-01-19] MEDS: dexAMETHasone sod phosphate 4 MG/ML VIAL 6 MG IVPUSH (08:59)
[2021-01-19] MEDS: buPROPion HCl XL 300 MG TAB.ER.24H PO (09:00)
[2021-01-19] MEDS: Gabapentin 400 MG CAPSULE PO (09:00)
[2021-01-19] MEDS: Omeprazole 20 MG CAPSULE.DR PO (09:00)
[2021-01-19 11:09] LABS: Glucose, Whole Blood 137 mg/dL (60-115)
[2021-01-19 11:35] VITALS: BP 117/72; PULSE 76; RESP 18; TEMP 36.6; O2SAT 95
--- NOTE | 2021-01-19 14:16 | MHC.CM.PN ---
Patient is being discharged back to [facility] today at 4pm via BLS transport. Nurse and patient made aware.
--- NOTE | 2021-01-19 14:25 | PM.DS ---
DS: Providers Provider Date of Service: 01/19/21 Date of admission: 01/14/21 18:51 Primary care physician: Farideh Marquez MD Consults: 01/17/21 06:06 Consult to Urology Routine Consulting Provider: Ben Wright Reason for consultation: urinary retension DS: Diagnosis Discharge Diagnosis (1) COVID-19: Status: Acute (2) Asthma-COPD overlap syndrome: Status: Acute (3) Acute and chronic respiratory failure with hypoxia: Status: Acute (4) Urinary retention: Status: Acute DS: Medications Discharge Medications Home Medications: Home Medications Medication Instructions Recorded Confirmed oxygen-air delivery systems #1 08/24/20 01/16/21 linaclotide 145 mcg capsule 145 mcg PO DAILY 12/17/20 01/14/21 liraglutide 0.6 mg/0.1 mL (18 mg/3 0.6 mg SUBCUT DAILY 12/17/20 01/14/21 mL) subcutaneous pen injector Breo Ellipta 1 puff INHALATION DAILY 01/09/21 01/14/21 amitriptyline 100 mg PO BEDTIME 01/09/21 01/14/21 lubiprostone [Amitiza] 24 mcg PO BID 01/09/21 01/14/21 Mucinex DM 1 tab PO Q12H 01/14/21 01/14/21 albuterol sulfate 2 puff INHALATION Q4H PRN 01/14/21 01/14/21 ascorbic acid (vitamin C) 250 mg PO DAILY 01/14/21 01/14/21 bisacodyl 10 mg MD DAILY PRN 01/14/21 01/14/21 bupropion HCl 300 mg PO DAILY 01/14/21 01/14/21 cholecalciferol (vitamin D3) 25 mcg PO DAILY 01/14/21 01/14/21 [Vitamin D3] clonazepam 2 mg PO BEDTIME 01/14/21 01/14/21 levothyroxine 50 mcg PO DAILY@0630 01/14/21 01/14/21 magnesium hydroxide [Milk of 30 ml PO BEDTIME PRN 01/14/21 01/14/21 Magnesia] montelukast [Singulair] 10 mg PO BEDTIME 01/14/21 01/14/21 naloxone 4 mg INTRANASAL Q3M PRN 01/14/21 01/14/21 ondansetron 4 mg PO Q6H PRN 01/14/21 01/14/21 tramadol 25 mg PO Q6H PRN 01/14/21 01/14/21 zolpidem 5 mg PO BEDTIME PRN 01/14/21 01/14/21 Previous Rx's Medication Instructions Recorded propylene glycol 0.6 % eye drops 1 drp OPHTHALMIC (EYE) BID PRN 30 08/24/20 Days #5 ml budesonide 0.5 mg/2 mL suspension 0.5 mg INHALATION DAILY 30 Days 08/25/20 for nebulization #60 ml lamotrigine 200 mg tablet 200 mg PO BID 30 Days #60 tab 08/26/20 pantoprazole 40 mg tablet,delayed 40 mg PO BID 90 Days #180 tab 08/26/20 release blood-glucose meter #1 ea 09/22/20 shower seat #1 ea 11/23/20 wheelchair #1 ea 11/23/20 gabapentin 400 mg capsule 400 mg PO BID 30 Days #60 cap 11/26/20 miscellaneous medical supply #1 ea 12/22/20 metaxalone 400 mg tablet 800 mg PO TID PRN 10 Days #30 tab 12/31/20 dexamethasone [Decadron] 6 mg PO DAILY #5 tab 01/19/21 DS: Summary Hospital Course Hospital Course: Patient was admitted for acute on chronic hypoxic respiratory failure secondary to COVID pneumonia. She was treated with IV Decadron. Her symptoms slowly improved and she was able to be weaned down to lower oxygen. At baseline she is on 2-3 L, and now she is saturating okay with minimal symptoms on a 4-5 L. occasionally she needs 5-7 L at night. Patient subjectively is feeling much better since she will be discharged back to her intermediate facility. Course was also complicated by urinary retention. Patient had a Valencia catheter placed. Trial of voiding should be performed as soon as patient is more ambulatory. Patient will have 5 more days of p.o. Decadron on discharge. Time Spent with Patient Time attestation: Total time spent providing and/or coordinating discharge services: Discharge coordination time: Greater than 30 minutes Physical Exam Vital Signs: Vital Signs: Last Vital Signs Temp 97.8 F 01/19/21 11:35 Pulse 76 01/19/21 11:35 Resp 18 01/19/21 11:35 BP 117/72 01/19/21 11:35 Pulse Ox 95 01/19/21 11:35 Body Mass Index 47.7 General: AO X 3, no acute distress Resp: CTA bilateral CVS: S1,S2,RRR GI: soft, non tender, non distended Neuro: motor grossly intact Psych: appropriate affect DS: Data Data Completed and Pending Labs on day of discharge: Laboratory Results - last 24 hr 01/18/21 01/18/21 01/19/21 16:10 20:05 05:34 WBC 7.3 RBC 3.80 L Hgb 10.9 L Hct 35.3 L MCV 92.9 MCH 28.7 MCHC 30.9 L RDW 15.5 Plt Count 436 H MPV 10.1 Immature Gran % (Auto) Cancelled Neut % (Auto) Cancelled Lymph % (Auto) Cancelled [facility] % (Auto) Cancelled Eos % (Auto) Cancelled Baso % (Auto) Cancelled Lymph # (Auto) Cancelled [facility] # (Auto) Cancelled Eos # (Auto) Cancelled Baso # (Auto) Cancelled Abs Immat Gran (auto) Cancelled Absolute Neuts (auto) Cancelled Absolute Nucleated RBC 0.000 Nucleated RBC % (auto) 0.0 Neutrophils % (Manual) 74 H Band Neutrophils % 9 H Lymphocytes % (Manual) 12 L Monocytes % (Manual) 2 Metamyelocytes % 3 Abs Neuts (Manual) 6.1 Lymphocytes # (Manual) 0.9 Monocytes # (Manual) 0.1 Metamyelocytes # 0.2 Platelet Estimate INCREASED Plt Morphology Comment NORMAL RBC Morphology NOTED Polychromasia 1+ (0-2) Ovalocytes 1+ (5-14) Acanthocytes (Spur) 1+ (0-2) Sodium Potassium Chloride Carbon Dioxide Anion Gap BUN Creatinine Estim Creat Clear Calc Estimated GFR POC Glucose 143 H 154 H Fasting Glucose Calcium 01/19/21 01/19/21 01/19/21 05:34 07:10 11:02 WBC RBC Hgb Hct MCV MCH MCHC RDW Plt Count MPV Immature Gran % (Auto) Neut % (Auto) Lymph % (Auto) [facility] % (Auto) Eos % (Auto) Baso % (Auto) Lymph # (Auto) [facility] # (Auto) Eos # (Auto) Baso # (Auto) Abs Immat Gran (auto) Absolute Neuts (auto) Absolute Nucleated RBC Nucleated RBC % (auto) Neutrophils % (Manual) Band Neutrophils % Lymphocytes % (Manual) Monocytes % (Manual) Metamyelocytes % Abs Neuts (Manual) Lymphocytes # (Manual) Monocytes # (Manual) Metamyelocytes # Platelet Estimate Plt Morphology Comment RBC Morphology Polychromasia Ovalocytes Acanthocytes (Spur) Sodium 143 Potassium 4.5 Chloride 103 Carbon Dioxide 30 H Anion Gap 15 BUN 19 H Creatinine 0.82 Estim Creat Clear Calc 83.6 Estimated GFR > 60 POC Glucose 105 137 H Fasting Glucose 123 H D Calcium 8.5 Preliminary micro results at discharge 01/14/21 17:27 Blood Culture - Preliminary Blood - Venous No growth after 48 hours. 01/14/21 17:20 Blood Culture - Preliminary Blood - Venous No growth after 48 hours. Discharge Plan Discharge Patient Disposition: [facility] [place] [facility]] Farideh Starr MD [Primary Care Provider] - Discharge Medications: New dexamethasone [Decadron] 6 mg tablet 6 mg PO DAILY Qty: 5 RF: 0 Continued budesonide [Pulmicort] 0.5 mg/2 mL suspension for nebulization 0.5 mg inhalation DAILY 30 Days Qty: 60 RF: 11 lamotrigine [Lamictal] 200 mg tablet 200 mg PO BID 30 Days Qty: 60 RF: 11 pantoprazole [Protonix] 40 mg tablet,delayed release (DR/EC) 40 mg PO BID 90 Days Qty: 180 RF: 3 (DME) wheelchair See Rx Instructions .Route .MEDSUPPLY Qty: 1 RF: 0 (DME) shower seat See Rx Instructions .Route .MEDSUPPLY Qty: 1 RF: 0 gabapentin 400 mg capsule 400 mg PO BID 30 Days Qty: 60 RF: 3 (DME) miscellaneous medical supply Misc See Rx Instructions .ROUTE .MEDSUPPLY Qty: 1 RF: 0 albuterol sulfate 90 mcg/actuation HFA aerosol inhaler 2 puff inhalation Q4H PRN (Reason: bronchospasm) RF: 0 zolpidem 5 mg Tablet 5 mg PO BEDTIME PRN (Reason: Sleep) RF: 0 ascorbic acid (vitamin C) 250 mg Tablet 250 mg PO DAILY RF: 0 bisacodyl 10 mg Suppository 10 mg MD DAILY PRN (Reason: Constipation) RF: 0 bupropion HCl 300 mg tablet extended release 24 hr 300 mg PO DAILY RF: 0 clonazepam 2 mg tablet 2 mg PO BEDTIME RF: 0 levothyroxine 50 mcg Tablet 50 mcg PO DAILY@0630 RF: 0 magnesium hydroxide [Milk of Magnesia] 400 mg/5 mL Suspension 30 ml PO BEDTIME PRN (Reason: Constipation) RF: 0 Mucinex DM 30-600 mg tablet extended release 12 hr 1 tab PO Q12H RF: 0 naloxone 4 mg/actuation [place],Non-Aerosol 4 mg INTRANASAL Q3M PRN (Reason: UNRESPONSIVE) RF: 0 montelukast [Singulair] 10 mg tablet 10 mg PO BEDTIME RF: 0 tramadol 50 mg Tablet 25 mg PO Q6H PRN (Reason: Pain (Scale Score 1-3)) RF: 0 cholecalciferol (vitamin D3) [Vitamin D3] 25 mcg (1,000 unit) Capsule 25 mcg PO DAILY RF: 0 ondansetron 4 mg Tablet,Disintegrating 4 mg PO Q6H PRN (Reason: Nausea And Vomiting) RF: 0 amitriptyline 100 mg tablet 100 mg PO BEDTIME RF: 0 lubiprostone [Amitiza] 24 mcg capsule 24 mcg PO BID RF: 0 Breo Ellipta 200-25 mcg/dose blister with device 1 puff inhalation DAILY RF: 0 (DME) oxygen-air delivery systems Device See Rx Instructions .ROUTE .MEDSUPPLY Qty: 1 RF: 0 Systane Complete 0.6 % drops 1 drp ophthalmic (eye) BID PRN (Reason: dry eye(s)) 30 Days Qty: 5 RF: 11 metaxalone 400 mg tablet 800 mg PO TID PRN (Reason: muscle pain) 10 Days Qty: 30 RF: 0 (DME) blood-glucose meter [FreeStyle [place] Lite] Kit See Rx Instructions .ROUTE .MEDSUPPLY Qty: 1 RF: 0 liraglutide 0.6 mg/0.1 mL (18 mg/3 mL) pen injector 0.6 mg subcut DAILY RF: 0 linaclotide 145 mcg capsule 145 mcg PO DAILY RF: 0 Discontinued azithromycin 250 mg Tablet 250 mg PO DAILY RF: 0 prednisone 10 mg tablet 40 mg PO DAILY Qty: 4 RF: 0 Discharge Orders: Discharge Order (Routine); Ordered 01/19/21 Ordered By: Lee Flores Activity on Discharge: As tolerated Stand Alone Forms: Patient Portal Discharge page Care Plan Goals: Recovery Health Concerns: Recent COVID Plan of Treatment: finish deacdron course, can uptitrate o2 at night as needed, goal sao2 91-94%
== END 2021-01-19 16:10 | disposition skilled nursing facility (03) | DRG 177 ==
LOC: HO.ED 18:12 → HO.EDOVER 22:41 → HO.IMC 01-15 06:47
PROVIDERS: Admitting Provider Internal Medicine; Emergency Provider Emergency Medicine; PCP Internal Medicine; Visit Provider Internal Medicine
DX: U07.1 COVID-19 (principal); J12.82 Pneumonia due to coronavirus disease 2019; J96.21 Acute and chronic respiratory failure with hypoxia; J44.1 Chronic obstructive pulmonary disease with (acute) exacerbation; Z68.42 Body mass index [BMI] 45.0-49.9, adult; E11.9 Type 2 diabetes mellitus without complications; R33.9 Retention of urine, unspecified; F31.9 Bipolar disorder, unspecified; E66.01 Morbid (severe) obesity due to excess calories; Z79.890 Hormone replacement therapy; Z79.899 Other long term (current) drug therapy
CPT/HCPCS: 36415; 71045; 80048; 80076; 81003; 82947; 83605; 83690; 83880; 85007; 85025; 85027; 87040; 93005; 99285; C1758; J1100; J1650

== ENCOUNTER 2021-01-21 09:38 | Inpatient (IN) | payer OTHER, SELFPAY ==
[2021-01-21] VITALS (8 sets, daily range): BP systolic 93–108; BP diastolic 56–70; PULSE 87–104; RESP 14–18; TEMP 36.6–37.5; O2SAT 91–97; BMI 46.8
--- NOTE | ~2021-01-21 | XR_ITS ---
EXAMINATION: XR CHEST CLINICAL INFORMATION: Altered mental status COMPARISON: None TECHNIQUE: Frontal view of the chest was obtained. FINDINGS: The lungs are well-expanded with diffuse patchy airspace opacities in both lungs most predominant in the left lower lobe and left midlung consistent with infiltrates. Heart size and pulmonary vascularity is normal. No gross bony abnormality seen. XR/XR chest 1V IMPRESSION: Diffuse bilateral infiltrates. The left lung infiltrate appears slightly worse from 01/14/2021.
--- NOTE | ~2021-01-21 | CT_ITS ---
EXAMINATION: CT HEAD WITHOUT CONTRAST CLINICAL INFORMATION: Altered mental status COMPARISON: None TECHNIQUE: Contiguous axial imaging was performed from the skull base to vertex without intravenous administration of contrast. This CT examination was performed using dose optimization techniques as appropriate, variously including the following: *Automated exposure control *Adjustment of mA and/or kV according to patient size (this includes techniques or standardized protocols for targeted exams where dose is matched to indication/reason for exam; i.e. extremities or head) *Use of iterative reconstruction technique DLP: 799 mGy-cm FINDINGS: There is no evidence of acute intracranial hemorrhage or territorial infarction. No abnormal mass effect or midline shift is seen. [place] to white matter differentiation is well preserved. No extra-axial fluid collections are identified. The ventricles are normal in size. There is no abnormal attenuation within the brain parenchyma. The osseous structures and soft tissues are normal. There is minimal mucoperiosteal thickening bilateral maxillary sinuses. Rest of the paranasal sinuses are well-aerated and clear. The mastoid sinuses are clear. CT/CT head/brain wo con IMPRESSION: No acute intracranial process seen. Minimal inflammatory changes bilateral maxillary sinuses aerated
--- NOTE | 2021-01-21 10:01 | ECG_ITS ---
Test Reason : AMS Blood Pressure : / mmHG Vent. Rate : 095 BPM Atrial Rate : 095 BPM P-R Int : 156 ms QRS Dur : 090 ms QT Int : 352 ms P-R-T Axes : 014 015 012 degrees QTc Int : 442 ms Normal sinus rhythm Nonspecific ST and T wave abnormality Borderline ECG When compared with ECG of 14-JAN-2021 17:49, No significant change was found Referred By: Zuleika Rausch Electronically Signed By:MONIK JUAREZ
--- NOTE | 2021-01-21 10:05 | ED_ITS ---
HPI - Altered Mental Status General Chief Complaint: Altered Mental Status Stated Complaint: ams,falls Time Seen by Provider: 01/21/21 09:47 Source: patient, EMS and general worker Mode of arrival: EMS Limitations: altered mental status History of Present Illness HPI narrative: 60-year-old female came in by EMS from [facility] for change mental status and recurrent falls, patient had multiple ED visit in the last week for COPD exacerbation and falls, patient presented today for evaluation of mental status change. Patient normally with history of COPD normally on 2-3 L of oxygen via nasal cannula (known history of chronic respiratory failure with hypoxia), patient also reportedly had multiple falls, patient during the exam is awake but sleepy, able to answer question in regard examiner having hard time opening her eyes and keeps talking. [employer] was used during the interview as reportedly from the general worker patient is not giving meaningful conversation. Related Data Home Medications Medication Instructions Recorded Confirmed oxygen-air delivery systems #1 08/24/20 01/16/21 linaclotide 145 mcg capsule 145 mcg PO DAILY 12/17/20 01/21/21 liraglutide 0.6 mg/0.1 mL (18 mg/3 0.6 mg SUBCUT DAILY 12/17/20 01/21/21 mL) subcutaneous pen injector Breo Ellipta 1 puff INHALATION DAILY 01/09/21 01/21/21 amitriptyline 100 mg PO BEDTIME 01/09/21 01/21/21 lubiprostone [Amitiza] 24 mcg PO BID 01/09/21 01/21/21 albuterol sulfate 2 puff INHALATION Q4H PRN 01/14/21 01/21/21 ascorbic acid (vitamin C) 250 mg PO DAILY 01/14/21 01/21/21 bisacodyl 10 mg TX DAILY PRN 01/14/21 01/21/21 bupropion HCl 300 mg PO DAILY 01/14/21 01/21/21 cholecalciferol (vitamin D3) 25 mcg PO DAILY 01/14/21 01/21/21 [Vitamin D3] clonazepam 2 mg PO BEDTIME 01/14/21 01/21/21 levothyroxine 50 mcg PO DAILY@0630 01/14/21 01/21/21 montelukast [Singulair] 10 mg PO BEDTIME 01/14/21 01/21/21 naloxone 4 mg INTRANASAL Q3M PRN 01/14/21 01/21/21 ondansetron 4 mg PO Q6H PRN 01/14/21 01/21/21 tramadol 25 mg PO Q6H PRN 01/14/21 01/21/21 zolpidem 5 mg PO BEDTIME PRN 01/14/21 01/21/21 Systane Complete 1 drp OPHTHALMIC (EYE) Q4H PRN 01/21/21 01/21/21 amitriptyline 1 tab PO BID 01/21/21 01/21/21 dextromethorphan-guaifenesin 1 tab PO Q12H 01/21/21 01/21/21 [Mucinex DM] metaxalone 800 mg PO TID PRN 01/21/21 01/21/21 Previous Rx's Medication Instructions Recorded budesonide 0.5 mg/2 mL suspension 0.5 mg INHALATION DAILY 30 Days 08/25/20 for nebulization #60 ml lamotrigine 200 mg tablet 200 mg PO BID 30 Days #60 tab 08/26/20 pantoprazole 40 mg tablet,delayed 40 mg PO BID 90 Days #180 tab 08/26/20 release blood-glucose meter #1 ea 09/22/20 shower seat #1 ea 11/23/20 wheelchair #1 ea 11/23/20 gabapentin 400 mg capsule 400 mg PO BID 30 Days #60 cap 11/26/20 miscellaneous medical supply #1 ea 12/22/20 dexamethasone [Decadron] 6 mg PO DAILY #5 tab 01/19/21 Allergies Allergy/AdvReac Type Severity Reaction Status Date / Time unknown analgesia given Allergy Severe rash Uncoded 12/17/20 14:18 antihi Review of Systems Review of Systems: Yes Unobtainable due to mental condition PMFSH Past Medical History Medical History Acute and chronic respiratory failure with hypoxia Asthma-COPD overlap syndrome Bipolar 1 disorder COPD (chronic obstructive pulmonary disease) Depression with anxiety Diabetes Eosinophilia GERD (gastroesophageal reflux disease) Hemangioma Hypothyroidism Hypovitaminosis D Insomnia Lumbar degenerative disc disease Lupus Lupus (systemic lupus erythematosus) Neck mass Obesity Oxygen dependent Polyarthralgia Recurrent UTI Severe asthma Tachycardia Trigger finger of right hand Urinary retention Surgical History History of carpal tunnel release History of section History of colonoscopy History of cystocele History of hysterectomy History of shoulder surgery History of tonsillectomy Family History Family History Father No problems noted. Mother No problems noted. Sister Nasopharyngeal cancer Social History Social History Household Members: None Housing: Apartment Alcohol intake: never Smoking Status: Never smoker Tobacco Type: Cigarette Use of substances other than those prescribed or required for medical reasons: No Advance Directives: Yes Advance Directives on File: Yes Advance Directives Date on File: 01/08/21 service: No Current occupational status: disabled Current occupation: right and left handed--- [employer] Physical Exam Vital Signs: Vital Signs: Last Vital Signs Temp 97.9 F 01/21/21 09:51 Pulse 87 01/21/21 15:06 Resp 18 01/21/21 15:06 BP 106/58 L 01/21/21 15:06 Pulse Ox 97 01/21/21 15:06 Body Mass Index 46.8 Vital signs have been reviewed as appeared to be correct. Blood pressure normal. Heart rate normal. Respiration rate normal. Temperature normal. Oxygen saturation normal. Appearance: Alert. And awake, disoriented to time and person No acute distress. Head: Normal external exam. Normocephalic. Atraumatic. No Escobedo signs noted. No raccoon eyes noted Eyes: PERRLA. EOMI. Conjunctiva and sclera normal. Eyelids normal. ENT: TM's Normal. Pharynx normal. Uvula midline. Moist mucous membranes. No trismus noted. No drooling noted. No muffled voice noted. Neck: Normal inspection. Neck supple. FROM. No adenopathy. Thyroid Normal. No meningeal signs. No neck mass noted. CVS: Normal heart rate and rhythm. Heart sound normal. No murmurs noted. Pulses normal throughout. Respiratory: No respiratory distress. Painless inspiration. Breath sounds normal. No wheezes/rales/rhonchi noted. Chest nontender. No accessory muscle usage noted or decreased air movement noted. Abdomen: Soft and nontender. Bowel sounds normal in all 4 quadrants. No distention noted. No organomegaly noted. No visible injury noted. Back: No CVA tenderness. Full range of motion noted. Skin: Skin warm and dry. Normal skin color. Normal skin turgor. No rashes/lesions/lacerations noted. Extremities: No lower extremity edema. Extremities exhibit normal range of motion. Extremities nontender. Neuro: No motor deficit. No sensory deficit. Reflexes normal. Course Course Course Narrative: 60-year-old female came in from [facility] for evaluation of delirium and confusion. Patient is acting delirious in the emergency department could be secondary to the UTI or medication related. CVA is not likely in this situation patient is able to move all 4 extremities no weakness or loss of sensation. Patient is known to have COPD with respiratory failure and hypoxia ABG/patient has been monitored for hours in the emergency room not showing hypoxia or hypercarbia. Chest x-ray/head CT/labs are unremarkable except for UTI patient do not meet criteria for SIRS, will cover with Rocephin IV fluids will admit the patient. MDM - Altered Mental Status Lab Data Attestation: I reviewed the patient's lab results. Result diagrams: 01/21/21 10:44 01/21/21 10:44 Labs: Lab Results 01/21/21 01/21/21 01/21/21 Range/Units 10:44 10:44 10:44 WBC 10.6 (4.8-10.8) X10*3/uL RBC 4.25 (4.20-5.50) X10*6/uL Hgb 11.8 L (12.0-16.0) g/dl Hct 39.7 (37-47) % MCV 93.4 (80-98) fL MCH 27.8 (27.0-33.0) pg MCHC 29.7 L (31.0-35.0) g/dl RDW 15.9 (11.0-16.0) % Plt Count 471 H (160-400) X10*3/uL MPV 9.7 (9.4-12.3) fL Immature Gran % (Auto) Cancelled Neut % (Auto) Cancelled Lymph % (Auto) Cancelled [place] % (Auto) Cancelled Eos % (Auto) Cancelled Baso % (Auto) Cancelled Lymph # (Auto) Cancelled [place] # (Auto) Cancelled Eos # (Auto) Cancelled Baso # (Auto) Cancelled Abs Immat Gran (auto) Cancelled Absolute Neuts (auto) Cancelled Absolute Nucleated RBC 0.000 (0.0-0.012) X10*3/uL Nucleated RBC % (auto) 0.0 (0.0-0.2) /100WBC Neutrophils % (Manual) 82 H (45-73) % Band Neutrophils % 7 H (3-5) % Lymphocytes % (Manual) 5 L (20-40) % Monocytes % (Manual) 2 (2-11) % Metamyelocytes % 2 % Myelocytes % 2 % Abs Neuts (Manual) 9.4 H (2.2-7.9) X10*3/uL Lymphocytes # (Manual) 0.5 L (0.6-4.8) X10*3/uL Monocytes # (Manual) 0.2 (0.0-1.2) X10*3/uL Metamyelocytes # 0.2 X10*3/uL Myelocytes # 0.2 X10*/uL Platelet Estimate INCREASED (NORMAL) Plt Morphology Comment NORMAL RBC Morphology NOTED Hypochromasia 1+ (5-14) /OIF O2 Saturation % ABG pH at Pt Temp (7.35-7.45) ABG pH (Temp Correct) (7.35-7.45) ABG pCO2 at Pt Temp (32-45) mmHg ABG pCO2 (Temp Corrct (32-45) mmHg ABG pO2 at Pt Temp (83-108) mmHg ABG pO2 (Temp Correct (83-108) ABG HCO3 (22-26) mmol/L ABG Base Excess (Actual) mmol/L Sodium 141 (135-145) mmol/L Potassium 4.1 (3.3-5.1) mmol/L Chloride 101 (96-108) mmol/L Carbon Dioxide 27 (22-29) mmol/L Anion Gap 17 (12-20) BUN 21 H (9-16) mg/dL Creatinine 0.97 (0.5-1.4) mg/dL Estim Creat Clear Calc 69.9 Estimated GFR 58 Random Glucose 73 (60-115) mg/dL Lactic Acid 1.7 (0.5-2.0) mmol/L Calcium 8.9 (8.4-10.2) mg/dL Total Bilirubin 0.4 (0.0-1.0) mg/dL Direct Bilirubin 0.2 (0.0-0.5) mg/dL AST 38 H D (5-31) U/L ALT 47 H (0-31) U/L Alkaline Phosphatase 83 (39-117) U/L Troponin I High Sens (<3.5-17.0) ng/L B-Natriuretic Peptide (<100) pg/mL Total Protein 7.0 (6.5-8.0) g/dL Albumin 3.9 (3.5-5.0) g/dL Lipase 19 (8-78) U/L Urine Color Urine Appearance Urine pH (5.0-8.0) Ur Specific [place] (1.005-1.025) Urine Protein (NEG-TRACE) MG/DL Urine Glucose (UA) (NEG) MG/DL Urine Ketones (NEG) MG/DL Urine Blood (NEG) Urine Nitrite (NEG) Ur Leukocyte Esterase (NEG) Urine RBC (0) /HPF Urine WBC (0-4) /HPF Ur Squamous Epith Cells /LPF Urine Bacteria /LPF Urine Mucus /LPF 01/21/21 01/21/21 01/21/21 Range/Units 10:44 10:44 10:51 WBC (4.8-10.8) X10*3/uL RBC (4.20-5.50) X10*6/uL Hgb (12.0-16.0) g/dl Hct (37-47) % MCV (80-98) fL MCH (27.0-33.0) pg MCHC (31.0-35.0) g/dl RDW (11.0-16.0) % Plt Count (160-400) X10*3/uL MPV (9.4-12.3) fL Immature Gran % (Auto) Neut % (Auto) Lymph % (Auto) [place] % (Auto) Eos % (Auto) Baso % (Auto) Lymph # (Auto) [place] # (Auto) Eos # (Auto) Baso # (Auto) Abs Immat Gran (auto) Absolute Neuts (auto) Absolute Nucleated RBC (0.0-0.012) X10*3/uL Nucleated RBC % (auto) (0.0-0.2) /100WBC Neutrophils % (Manual) (45-73) % Band Neutrophils % (3-5) % Lymphocytes % (Manual) (20-40) % Monocytes % (Manual) (2-11) % Metamyelocytes % % Myelocytes % % Abs Neuts (Manual) (2.2-7.9) X10*3/uL Lymphocytes # (Manual) (0.6-4.8) X10*3/uL Monocytes # (Manual) (0.0-1.2) X10*3/uL Metamyelocytes # X10*3/uL Myelocytes # X10*/uL Platelet Estimate (NORMAL) Plt Morphology Comment RBC Morphology Hypochromasia /OIF O2 Saturation 96.0 % ABG pH at Pt Temp 7.43 (7.35-7.45) ABG pH (Temp Correct) 7.44 (7.35-7.45) ABG pCO2 at Pt Temp 46 H (32-45) mmHg ABG pCO2 (Temp Corrct 45 (32-45) mmHg ABG pO2 at Pt Temp 88 (83-108) mmHg ABG pO2 (Temp Correct 87 (83-108) ABG HCO3 31 H (22-26) mmol/L ABG Base Excess (Actual) 6.3 mmol/L Sodium (135-145) mmol/L Potassium (3.3-5.1) mmol/L Chloride (96-108) mmol/L Carbon Dioxide (22-29) mmol/L Anion Gap (12-20) BUN (9-16) mg/dL Creatinine (0.5-1.4) mg/dL Estim Creat Clear Calc Estimated GFR Random Glucose (60-115) mg/dL Lactic Acid (0.5-2.0) mmol/L Calcium (8.4-10.2) mg/dL Total Bilirubin (0.0-1.0) mg/dL Direct Bilirubin (0.0-0.5) mg/dL AST (5-31) U/L ALT (0-31) U/L Alkaline Phosphatase (39-117) U/L Troponin I High Sens < 3.5 (<3.5-17.0) ng/L B-Natriuretic Peptide < 10 (<100) pg/mL Total Protein (6.5-8.0) g/dL Albumin (3.5-5.0) g/dL Lipase (8-78) U/L Urine Color YELLOW Urine Appearance CLOUDY Urine pH 6.0 (5.0-8.0) Ur Specific [place] >= 1.030 H (1.005-1.025) Urine Protein TRACE (NEG-TRACE) MG/DL Urine Glucose (UA) NEG (NEG) MG/DL Urine Ketones NEG (NEG) MG/DL Urine Blood 2+ H (NEG) Urine Nitrite POS H (NEG) Ur Leukocyte Esterase 1+ H (NEG) Urine RBC 15-29 H (0) /HPF Urine WBC 15-29 H (0-4) /HPF Ur Squamous Epith Cells TRACE /LPF Urine Bacteria 3+ /LPF Urine Mucus 2+ /LPF Imaging Data Chest x-ray: Radiologist's impression: Diffuse bilateral infiltrates. The left lung infiltrate appears slightly worse from 01/14/2021. CT scan - head: Radiologist's impression: No acute intracranial process seen. Minimal inflammatory changes bilateral maxillary sinuses aerated Discharge Plan Discharge Clinical Impression: Acute alteration in mental status, Delirium due to general medical condition, UTI (urinary tract infection) Patient Disposition: Admitted As Inpatient Prescriptions: No Action budesonide [Pulmicort] 0.5 mg/2 mL suspension for nebulization 0.5 mg inhalation DAILY 30 Days Qty: 60 RF: 11 lamotrigine [Lamictal] 200 mg tablet 200 mg PO BID 30 Days Qty: 60 RF: 11 pantoprazole [Protonix] 40 mg tablet,delayed release (DR/EC) 40 mg PO BID 90 Days Qty: 180 RF: 3 (DME) wheelchair See Rx Instructions .Route .MEDSUPPLY Qty: 1 RF: 0 (DME) shower seat See Rx Instructions .Route .MEDSUPPLY Qty: 1 RF: 0 gabapentin 400 mg capsule 400 mg PO BID 30 Days Qty: 60 RF: 3 (DME) miscellaneous medical supply Misc See Rx Instructions .ROUTE .MEDSUPPLY Qty: 1 RF: 0 albuterol sulfate 90 mcg/actuation HFA aerosol inhaler 2 puff inhalation Q4H PRN (Reason: Wheezing) RF: 0 zolpidem 5 mg Tablet 5 mg PO BEDTIME PRN (Reason: Sleep) RF: 0 ascorbic acid (vitamin C) 250 mg Tablet 250 mg PO DAILY RF: 0 bisacodyl 10 mg Suppository 10 mg TX DAILY PRN (Reason: Constipation) RF: 0 bupropion HCl 300 mg tablet extended release 24 hr 300 mg PO DAILY RF: 0 clonazepam 2 mg tablet 2 mg PO BEDTIME RF: 0 levothyroxine 50 mcg Tablet 50 mcg PO DAILY@0630 RF: 0 naloxone 4 mg/actuation [place],Non-Aerosol 4 mg INTRANASAL Q3M PRN (Reason: UNRESPONSIVE) RF: 0 montelukast [Singulair] 10 mg tablet 10 mg PO BEDTIME RF: 0 tramadol 50 mg Tablet 25 mg PO Q6H PRN (Reason: Moderate Pain (Scale Score 5-6)) RF: 0 cholecalciferol (vitamin D3) [Vitamin D3] 25 mcg (1,000 unit) Capsule 25 mcg PO DAILY RF: 0 ondansetron 4 mg Tablet,Disintegrating 4 mg PO Q6H PRN (Reason: Nausea And Vomiting) RF: 0 dexamethasone [Decadron] 6 mg tablet 6 mg PO DAILY Qty: 5 RF: 0 amitriptyline 100 mg tablet 100 mg PO BEDTIME RF: 0 lubiprostone [Amitiza] 24 mcg capsule 24 mcg PO BID RF: 0 Breo Ellipta 200-25 mcg/dose blister with device 1 puff inhalation DAILY RF: 0 amitriptyline 50 mg tablet 1 tab PO BID RF: 0 Mucinex DM 30-600 mg Tablet Extended Release 12 Hr 1 tab PO Q12H RF: 0 metaxalone 800 mg Tablet 800 mg PO TID PRN (Reason: Muscle Pain) RF: 0 Systane Complete 0.6 % drops 1 drp ophthalmic (eye) Q4H PRN (Reason: dry eye(s)) RF: 0 (DME) oxygen-air delivery systems Device See Rx Instructions .ROUTE .MEDSUPPLY Qty: 1 RF: 0 (DME) blood-glucose meter [FreeStyle [place] Lite] Kit See Rx Instructions .ROUTE .MEDSUPPLY Qty: 1 RF: 0 liraglutide 0.6 mg/0.1 mL (18 mg/3 mL) pen injector 0.6 mg subcut DAILY RF: 0 linaclotide 145 mcg capsule 145 mcg PO DAILY RF: 0
[2021-01-21] MEDS: 0.9 % Sodium Chloride 1,000 ML 999 ML IVCONT ×2 (10:44→15:39)
[2021-01-21 10:53] LABS: Hematocrit 39.7 % (37-47); Hemoglobin 11.8 g/dl (12.0-16.0); Mean Corpuscular HGB Conc 29.7 g/dl (31.0-35.0); Mean Corpuscular Hemoglobin 27.8 pg (27.0-33.0); Mean Corpuscular Volume 93.4 fL (80-98); Mean Platelet Volume 9.7 fL (9.4-12.3); Platelet Count 471 X10*3/uL (160-400); Red Blood Count 4.25 X10*6/uL (4.20-5.50); Red Cell Distribution Width 15.9 % (11.0-16.0); White Blood Count 10.6 X10*3/uL (4.8-10.8)
[2021-01-21 10:58] LABS: ABG Refer to POC result
[2021-01-21 10:59] LABS: ABG Base Excess 6.3 mmol/L; ABG HCO3 31 mmol/L (22-26); ABG pCO2 46 mmHg (32-45); ABG pCO2 TC 45 mmHg (32-45); ABG pH 7.43 (7.35-7.45); ABG pH TC 7.44 (7.35-7.45); ABG pO2 88 mmHg (83-108); ABG pO2 TC 87 (83-108)
[2021-01-21 11:10] LABS: Lactic Acid 1.7 mmol/L (0.5-2.0)
[2021-01-21 11:11] LABS: Glucose Urine UA NEG (NEG); Leukocyte Esterase Urine 1+ (NEG); Nitrite Urine POS (NEG); Specific Gravity - Urine >= 1.030 (1.005-1.025); UACC Culture Trigger YES; Urine Blood 2+ (NEG); Urine Ketones NEG (NEG); Urine Protein TRACE MG/DL (NEG-TRACE)
[2021-01-21 11:14] LABS: Appearance Urine CLOUDY; Color Urine YELLOW
[2021-01-21 11:16] LABS: Alanine Aminotransferase 47 U/L (0-31); Albumin Level 3.9 g/dL (3.5-5.0); Alkaline Phosphatase 83 U/L (39-117); Anion Gap 17 (12-20); Aspartate Amino Transferase 38 U/L (5-31); Bilirubin Direct 0.2 mg/dL (0.0-0.5); Bilirubin Total 0.4 mg/dL (0.0-1.0); Blood Urea Nitrogen 21 mg/dL (9-16); Calcium 8.9 mg/dL (8.4-10.2); Carbon Dioxide 27 mmol/L (22-29); Chloride 101 mmol/L (96-108); Creatinine Clr Calc Pharmacy 69.9; Estimated Glomerular Filt Rate 58; Glucose Random 73 mg/dL (60-115); Lipase 19 U/L (8-78); Potassium 4.1 mmol/L (3.3-5.1); Sodium 141 mmol/L (135-145)
[2021-01-21 11:19] LABS: B Type Natriuretic Peptide < 10 pg/mL (<100); Troponin-I High Sensitivity < 3.5 ng/L (<3.5-17.0)
[2021-01-21 11:23] LABS: Bacteria Urine 3+ /LPF; Mucus Urine 2+ /LPF; Squamous Epithelial Cell Urine TRACE /LPF
[2021-01-21 11:28] LABS: Band Neutrophils Percent 7 % (3-5); Lymphocytes Absolute Manual 0.5 X10*3/uL (0.6-4.8); Lymphocytes Percent Manual 5 % (20-40); Metamyelocytes Absolute 0.2 X10*3/uL; Metamyelocytes Percent 2 %; Monocytes Absolute Manual 0.2 X10*3/uL (0.0-1.2); Monocytes Percent Manual 2 % (2-11); Myelocytes Absolute 0.2 X10*/uL; Myelocytes Percent 2 %; Neutrophils Absolute Manual 9.4 X10*3/uL (2.2-7.9); Neutrophils Percent Manual 82 % (45-73)
[2021-01-21 11:29] LABS: Hypochromasia 1+ (5-14) /OIF; Platelet Estimate INCREASED (NORMAL); Platelet Morphology Comment NORMAL; RBC Morphology NOTED
[2021-01-21] MEDS: cefTRIAXone sodium 1 GM in 0.9 % Sodium Chloride 50 ML IV (11:44)
--- NOTE | 2021-01-21 15:07 | PC.NURSE ---
PT REEVALLED BY AND INTERPRETTER. PT HAVING CONVERSATION W PROVIDER, MUCH MORE ALERT AND PARTICIPATORY AT THIS TIME.
--- NOTE | 2021-01-21 20:44 | PC.NURSE ---
REPORT TAKEN FROM JAVIER RN, FIRST CONTACT WITH PT. SITTING UP IN BED EATING SNACK AND DRINKING PO FLUIDS, HOLDING CONVERSATION WITH THIS RN IN [place],PLEASANTLY CONFUSED AT TIMES. SEEN BY HOSPITALIST, AWAITING BED ASSIGNMENT FOR ADMISSION. AWARE OF PLAN OF CARE.
[2021-01-21 23:10] LABS: COVID-19 Test Negative (Negative); IDNOW Serial# 9DD0AD1C
[2021-01-22] VITALS (7 sets, daily range): BP systolic 80–130; BP diastolic 52–71; PULSE 94–107; RESP 18–20; TEMP 36–37.2; O2SAT 94–98
--- NOTE | 2021-01-22 00:02 | PC.NURSE ---
REPORT GIVEN TO FLOOR, PT AWAITING TRANSPORT.
[2021-01-22 01:38] LABS: Glucose, Whole Blood 386 mg/dL (60-115)
[2021-01-22] MEDS: lamoTRIgine 100 MG TABLET 200 MG PO ×3 (02:30→20:55)
[2021-01-22] MEDS: Amitriptyline HCl 50 MG TABLET PO (02:30)
[2021-01-22] MEDS: Gabapentin 400 MG CAPSULE PO ×3 (02:30→20:55)
[2021-01-22] MEDS: guaiFENesin DM 600/30 1 TAB TAB.ER.12H PO ×3 (02:30→23:35)
[2021-01-22] MEDS: Heparin Sodium,Porcine 5,000 UNIT/ML VIAL 5000 UNIT SUBCUT ×3 (02:30→20:55)
[2021-01-22] MEDS: Amitriptyline HCl 50 MG TABLET 100 MG PO ×2 (02:30→20:55)
[2021-01-22] MEDS: 0.9 % Sodium Chloride Flush 3 ML SYRINGE IVFLUSH ×4 (02:31→23:33)
[2021-01-22] MEDS: Insulin Lispro 100 UNIT/ML 3 ML VIAL SUBCUT (02:33)
--- NOTE | 2021-01-22 04:42 | PM.IMHP ---
History of Present Illness Date of Service: 01/21/21 Chief Complaint: Altered mental status 60-year-old female with past medical history of acute on chronic respiratory failure with a baseline of 3 L of oxygen, asthma/COPD, bipolar, depression, diabetes, hypothyroidism, lupus, who was recently discharged from the hospital on 01/19 to halfway after being managed for acute on chronic hypoxic respiratory failure secondary to COVID-19 pneumonia. She was treated with IV Decadron. With improvement of symptoms. She was able to be weaned down oxygen, to 4-5 L of O2 with minimal symptoms. At that hospital admission patient had urinary retention and was discharged with Valencia catheter. With a plan for a void trial as soon as patient more ambulatory. She is sent back from halfway today for change in mental status and recurrent falls. Patient herself is alert and oriented, but at times confused, she reports shortness of breath and cough, but tells me that she uses about 3 L of oxygen at home. She has no fever or chills, she denies any abdominal pain nausea or vomiting, denies falling, keeps talking about her sister, and wanting to see her sister otherwise she will leave, keeps asking for coffee. She otherwise denies any urinary symptoms since he has a Valencia catheter in place, no lower extremity edema. On arrival to the ED patient has a temp of 97.9?, heart rate of 95, respiratory rate of 15, blood pressure 98/59, satting 94% on 4 L Labs are significant for WBC count of 10.6, hemoglobin of 11.8, ABG that showed pH of 7.43, CO2 of 46, sodium 141, potassium 4.1, BUN of 21, creatinine of 0.97, AST 38, ALT 47, UA that is positive for nitrites, leukocyte Estrace, WBC, bacteria, Head CT shows no acute intracranial process, minimal inflammatory changes Past medical history as below Review of Systems Review of Systems: Yes all other systems are reviewed and are negative [facility] Medical History Acute and chronic respiratory failure with hypoxia Asthma-COPD overlap syndrome Bipolar 1 disorder COPD (chronic obstructive pulmonary disease) Depression with anxiety Diabetes Eosinophilia GERD (gastroesophageal reflux disease) Hemangioma Hypothyroidism Hypovitaminosis D Insomnia Lumbar degenerative disc disease Lupus Lupus (systemic lupus erythematosus) Neck mass Obesity Oxygen dependent Polyarthralgia Recurrent UTI Severe asthma Tachycardia Trigger finger of right hand Urinary retention Family History Father No problems noted. Mother No problems noted. Sister Nasopharyngeal cancer Surgical History History of carpal tunnel release History of section History of colonoscopy History of cystocele History of hysterectomy History of shoulder surgery History of tonsillectomy Social History Household Members: None Household Members Other:: per patient, from home but was at SNF for rehab Housing: Custodial Do you presently have visiting nurse or other home services: Yes ([employer] at home) Alcohol intake: never Smoking Status: Never smoker Tobacco Type: Cigarette Use of substances other than those prescribed or required for medical reasons: No Have you been hit, kicked, punched, or otherwise hurt by someone within the past year? If so, by whom?: No Do you feel safe in your current relationship?: No Current Relationship Is there a partner from a previous relationship who is making you feel unsafe now?: No Are you made to feel afraid or neglected: No Advance Directives: Yes Advance Directives on File: Yes Advance Directives Date on File: 01/08/21 Do you have thoughts of harming others: None Do you have a plan to hurt others: No Plan Recently lost weight without trying: Unsure service: No Current occupational status: disabled Current occupation: right and left handed--- HAS [employer] Meds Allergies Allergy/AdvReac Type Severity Reaction Status Date / Time unknown analgesia given Allergy Severe rash Uncoded 12/17/20 14:18 antihi Active Medications: Current Medications Generic Name Dose Route Start Last Admin Trade Name Freq PRN Reason Stop Dose Admin Acetaminophen 650 mg 01/22/21 00:22 Acetaminophen 325 Mg Tablet PO Q6H PRN Pain, Mild (Pain Scale 1-3) Amitriptyline HCl 50 mg 01/22/21 00:22 01/22/21 02:30 Amitriptyline Hcl 50 Mg Tablet PO 50 mg BID YOBANI Administration Amitriptyline HCl 100 mg 01/22/21 00:22 01/22/21 02:30 Amitriptyline Hcl 50 Mg Tablet PO 100 mg BEDTIME YOBANI Administration Ascorbic Acid 250 mg 01/22/21 09:00 Ascorbic Acid 250 Mg Tablet PO DAILY YOBANI Bisacodyl 10 mg 01/22/21 00:22 Bisacodyl 10 Mg Supp.Rect MA DAILY PRN Constipation Bupropion HCl 300 mg 01/22/21 09:00 Bupropion Hcl Xl 300 Mg Tab.Er.24h PO DAILY [facility] Docusate Sodium 100 mg 01/22/21 00:22 Docusate Sodium 100 Mg Capsule PO DAILY PRN Constipation Gabapentin 400 mg 01/22/21 00:22 01/22/21 02:30 Gabapentin 400 Mg Capsule PO 400 mg BID [facility] Administration Guaifenesin/Dextromethorphan 1 tab 01/22/21 00:22 01/22/21 02:30 Guaifenesin Dm 600/30 1 Tab Tab.Er.12h PO 1 tab Q12H YOBANI Administration Heparin Sodium (Porcine) 5,000 unit 01/22/21 00:22 01/22/21 02:30 Heparin Sodium,Porcine 5,000 Unit/Ml Vial SUBCUT 5,000 unit BID [facility] Administration Ceftriaxone Sodium 1 gm/ 50 mls @ 100 mls/hr 01/22/21 11:00 Sodium Chloride IV Q24H [facility] Insulin Human Lispro 0 unit 01/22/21 02:20 01/22/21 02:33 Insulin Lispro 100 Unit/Ml 3 Ml Vial SUBCUT 10 unit QIDACHS [facility] Administration Protocol Lamotrigine 200 mg 01/22/21 00:22 01/22/21 02:30 Lamotrigine 100 Mg Tablet PO 200 mg BID [facility] Administration Levothyroxine Sodium 50 mcg 01/22/21 06:30 Levothyroxine Sodium 50 Mcg Tablet PO DAILY@0630 [facility] Montelukast Sodium 10 mg 01/22/21 21:00 Montelukast Sodium 10 Mg Tablet PO BEDTIME [facility] Naloxone HCl 4 mg 01/22/21 00:22 Naloxone Hcl Nasal 4 Mg [place] NOSTRILALT Q3M PRN UNRESPONSIVE Non-Formulary Medication 145 mcg 01/22/21 09:00 Linaclotide PO DAILY [facility] Non-Formulary Medication 1 drop 01/22/21 00:22 Propylene Glycol [Systane Complete] EYE-BOTH Q4H PRN dry eye(s) Omeprazole 20 mg 01/22/21 00:22 01/22/21 02:32 Omeprazole 20 Mg Capsule. PO Not Given BID@0601,3095 [facility] Ondansetron HCl 4 mg 01/22/21 00:22 Ondansetron Hcl 4 Mg/2 Ml Vial IVPUSH Q8H PRN Nausea and Vomiting Pharmacy Consult 1 each 01/21/21 09:59 Consult Rx Perform Med Rec MISCELLANE ONCE PRN Consult order Sodium Chloride 3 ml 01/22/21 00:22 01/22/21 02:31 0.9 % Sodium Chloride Flush 3 Ml Syringe IVFLUSH 3 ml QSHIFT [facility] Administration Tramadol HCl 25 mg 01/22/21 00:22 Tramadol Hcl 50 Mg Tablet PO Q6H PRN Moderate Pain (Scale Score 5-6) Vitamin D 25 mcg 01/22/21 09:00 Cholecalciferol (Vitamin D3) 25 Mcg Tablet PO DAILY [facility] Zolpidem Tartrate 5 mg 01/22/21 00:22 Zolpidem Tartrate 5 Mg Tablet PO BEDTIME PRN Sleep Home Medications Medication Instructions Recorded Confirmed Last Taken Type oxygen-air delivery systems #1 08/24/20 01/16/21 Unknown History linaclotide 145 mcg capsule 145 mcg PO DAILY 12/17/20 01/21/21 Unknown History liraglutide 0.6 mg/0.1 mL (18 mg/3 0.6 mg SUBCUT DAILY 12/17/20 01/21/21 Unknown History mL) subcutaneous pen injector Saba Kruegerta 1 puff INHALATION DAILY 01/09/21 01/21/21 Unknown History amitriptyline 100 mg PO BEDTIME 01/09/21 01/21/21 Unknown History lubiprostone [Amitiza] 24 mcg PO BID 01/09/21 01/21/21 Unknown History albuterol sulfate 2 puff INHALATION Q4H PRN 01/14/21 01/21/21 Unknown History ascorbic acid (vitamin C) 250 mg PO DAILY 01/14/21 01/21/21 Unknown History bisacodyl 10 mg MA DAILY PRN 01/14/21 01/21/21 Unknown History bupropion HCl 300 mg PO DAILY 01/14/21 01/21/21 Unknown History cholecalciferol (vitamin D3) 25 mcg PO DAILY 01/14/21 01/21/21 Unknown History [Vitamin D3] clonazepam 2 mg PO BEDTIME 01/14/21 01/21/21 Unknown History levothyroxine 50 mcg PO DAILY@0630 01/14/21 01/21/21 Unknown History montelukast [Singulair] 10 mg PO BEDTIME 01/14/21 01/21/21 Unknown History naloxone 4 mg INTRANASAL Q3M PRN 01/14/21 01/21/21 Unknown History ondansetron 4 mg PO Q6H PRN 01/14/21 01/21/21 Unknown History tramadol 25 mg PO Q6H PRN 01/14/21 01/21/21 Unknown History zolpidem 5 mg PO BEDTIME PRN 01/14/21 01/21/21 Unknown History Systane Complete 1 drp OPHTHALMIC (EYE) Q4H PRN 01/21/21 01/21/21 Unknown History amitriptyline 1 tab PO BID 01/21/21 01/21/21 Unknown History dextromethorphan-guaifenesin 1 tab PO Q12H 01/21/21 01/21/21 Unknown History [Mucinex DM] metaxalone 800 mg PO TID PRN 01/21/21 01/21/21 Unknown History Physical Exam Vital Signs and Narrative: Vital Signs: Last Vital Signs Temp 97.0 F 01/22/21 03:27 Pulse 101 H 01/22/21 03:27 Resp 18 01/22/21 03:27 BP 104/71 01/22/21 03:27 Pulse Ox 95 01/22/21 03:27 Body Mass Index 46.8 Const: Other: Although she is A&O x3 she does get confused sometimes and veers off topic General: cooperative and no acute distress Orientation/consciousness: patient oriented x3 Eyes: General: appearance normal, both eyes and all related structures Resp: Effort & Inspection: normal respiratory effort and able to speak in complete sentences Cardio: Rate: regular rate Rhythm: regular rhythm GI: Palpation (GI): Soft to palpation Auscultation: normal bowel sounds Skin: General skin exam: no rashes or lesions noted Neuro: General: patient oriented x3 Cognition (Neuro): normal cognition Extrem: General: Yes normal to inspection and Yes no pedal edema Results Labs CBC and Chem 7: 01/21/21 10:44 01/21/21 10:44 Labs: Laboratory Results - last 24 hr 01/21/21 01/21/21 01/21/21 10:44 10:44 10:44 MCV 93.4 MCH 27.8 MCHC 29.7 L RDW 15.9 Plt Count 471 H MPV 9.7 Immature Gran % (Auto) Cancelled Neut % (Auto) Cancelled Lymph % (Auto) Cancelled Woodruff % (Auto) Cancelled Eos % (Auto) Cancelled Baso % (Auto) Cancelled Lymph # (Auto) Cancelled Woodruff # (Auto) Cancelled Eos # (Auto) Cancelled Baso # (Auto) Cancelled Abs Immat Gran (auto) Cancelled Absolute Neuts (auto) Cancelled Absolute Nucleated RBC 0.000 Nucleated RBC % (auto) 0.0 Neutrophils % (Manual) 82 H Band Neutrophils % 7 H Lymphocytes % (Manual) 5 L Monocytes % (Manual) 2 Metamyelocytes % 2 Myelocytes % 2 Abs Neuts (Manual) 9.4 H Lymphocytes # (Manual) 0.5 L Monocytes # (Manual) 0.2 Metamyelocytes # 0.2 Myelocytes # 0.2 Platelet Estimate INCREASED Plt Morphology Comment NORMAL RBC Morphology NOTED Hypochromasia 1+ (5-14) O2 Saturation ABG pH at Pt Temp ABG pH (Temp Correct) ABG pCO2 at Pt Temp ABG pCO2 (Temp Corrct ABG pO2 at Pt Temp ABG pO2 (Temp Correct ABG HCO3 ABG Base Excess (Actual) Anion Gap 17 Estim Creat Clear Calc 69.9 Estimated GFR 58 POC Glucose Random Glucose 73 Lactic Acid 1.7 Calcium 8.9 Total Bilirubin 0.4 Direct Bilirubin 0.2 AST 38 H D ALT 47 H Alkaline Phosphatase 83 Troponin I High Sens B-Natriuretic Peptide Total Protein 7.0 Albumin 3.9 Lipase 19 Urine Color Urine Appearance Urine pH Ur Specific [place] Urine Protein Urine Glucose (UA) Urine Ketones Urine Blood Urine Nitrite Ur Leukocyte Esterase Urine RBC Urine WBC Ur Squamous Epith Cells Urine Bacteria Urine Mucus COVID-19 (ABBIE) COVID-19 Clin Com 01/21/21 01/21/21 01/21/21 10:44 10:44 10:51 MCV MCH MCHC RDW Plt Count MPV Immature Gran % (Auto) Neut % (Auto) Lymph % (Auto) Woodruff % (Auto) Eos % (Auto) Baso % (Auto) Lymph # (Auto) Woodruff # (Auto) Eos # (Auto) Baso # (Auto) Abs Immat Gran (auto) Absolute Neuts (auto) Absolute Nucleated RBC Nucleated RBC % (auto) Neutrophils % (Manual) Band Neutrophils % Lymphocytes % (Manual) Monocytes % (Manual) Metamyelocytes % Myelocytes % Abs Neuts (Manual) Lymphocytes # (Manual) Monocytes # (Manual) Metamyelocytes # Myelocytes # Platelet Estimate Plt Morphology Comment RBC Morphology Hypochromasia O2 Saturation 96.0 ABG pH at Pt Temp 7.43 ABG pH (Temp Correct) 7.44 ABG pCO2 at Pt Temp 46 H ABG pCO2 (Temp Corrct 45 ABG pO2 at Pt Temp 88 ABG pO2 (Temp Correct 87 ABG HCO3 31 H ABG Base Excess (Actual) 6.3 Anion Gap Estim Creat Clear Calc Estimated GFR POC Glucose Random Glucose Lactic Acid Calcium Total Bilirubin Direct Bilirubin AST ALT Alkaline Phosphatase Troponin I High Sens < 3.5 B-Natriuretic Peptide < 10 Total Protein Albumin Lipase Urine Color YELLOW Urine Appearance CLOUDY Urine pH 6.0 Ur Specific [place] >= 1.030 H Urine Protein TRACE Urine Glucose (UA) NEG Urine Ketones NEG Urine Blood 2+ H Urine Nitrite POS H Ur Leukocyte Esterase 1+ H Urine RBC 15-29 H Urine WBC 15-29 H Ur Squamous Epith Cells TRACE Urine Bacteria 3+ Urine Mucus 2+ COVID-19 (ABBIE) COVID-19 Clin Com 01/21/21 01/22/21 22:48 01:33 MCV MCH MCHC RDW Plt Count MPV Immature Gran % (Auto) Neut % (Auto) Lymph % (Auto) Woodruff % (Auto) Eos % (Auto) Baso % (Auto) Lymph # (Auto) [place] # (Auto) Eos # (Auto) Baso # (Auto) Abs Immat Gran (auto) Absolute Neuts (auto) Absolute Nucleated RBC Nucleated RBC % (auto) Neutrophils % (Manual) Band Neutrophils % Lymphocytes % (Manual) Monocytes % (Manual) Metamyelocytes % Myelocytes % Abs Neuts (Manual) Lymphocytes # (Manual) Monocytes # (Manual) Metamyelocytes # Myelocytes # Platelet Estimate Plt Morphology Comment RBC Morphology Hypochromasia O2 Saturation ABG pH at Pt Temp ABG pH (Temp Correct) ABG pCO2 at Pt Temp ABG pCO2 (Temp Corrct ABG pO2 at Pt Temp ABG pO2 (Temp Correct ABG HCO3 ABG Base Excess (Actual) Anion Gap Estim Creat Clear Calc Estimated GFR POC Glucose 386 H* Random Glucose Lactic Acid Calcium Total Bilirubin Direct Bilirubin AST ALT Alkaline Phosphatase Troponin I High Sens B-Natriuretic Peptide Total Protein Albumin Lipase Urine Color Urine Appearance Urine pH Ur Specific [place] Urine Protein Urine Glucose (UA) Urine Ketones Urine Blood Urine Nitrite Ur Leukocyte Esterase Urine RBC Urine WBC Ur Squamous Epith Cells Urine Bacteria Urine Mucus COVID-19 (ABBIE) Negative COVID-19 Clin Com See Note Imaging Radiologist's Impressions: Impressions Chest X-Ray 01/21/21 09:59 IMPRESSION: Diffuse bilateral infiltrates. The left lung infiltrate appears slightly worse from 01/14/2021. Head CT 01/21/21 10:04 IMPRESSION: No acute intracranial process seen. Minimal inflammatory changes bilateral maxillary sinuses aerated Assessment and Plan (1) Delirium due to general medical condition: Status: Acute (2) UTI (urinary tract infection): Status: Acute (3) Encephalopathy: Status: Acute (4) Urinary retention: Status: Acute (5) Acute and chronic respiratory failure with hypoxia: Status: Acute (6) COVID-19: Status: Acute This is a 60-year-old female with recently diagnosed COVID-19, admitted and managed and discharged on the , after being managed for hypoxic respiratory failure secondary to COVID-19 pneumonia, returns today with increased altered mental status. # encephalopathy/delirium - possibly multifactorial secondary to acute UTI as well as polypharmacy - patient on multiple sedating medications including benzos, antidepressants, muscle relaxant - UA is positive for infection Plan: - will start on IV antibiotics - Hold some of her sedative meds including benzo - follow cultures # UTI - most likely secondary to Valencia catheter - Valencia catheter was placed on previous admission due to urinary retention - at this time will start patient on antibiotics - follow cultures # urinary retention - possibly due to acute do the hospitalization - will need voiding trial once ambulatory # acute on chronic respiratory failure with hypoxia - no acute changes to her respiratory status - currently on 4 L that she was discharged with - completed Decadron - monitor respiratory status - continue oxygen (on baseline 2-3 L daily) # bipolar disorder - continue mood stabilizers # diabetes mellitus - will hold oral antihyperglycemics - start low-dose sliding scale - diabetic diet DVT prophylaxis:heparin
[2021-01-22 05:09] LABS: Hematocrit 32.6 % (37-47); Hemoglobin 9.9 g/dl (12.0-16.0); Mean Corpuscular HGB Conc 30.4 g/dl (31.0-35.0); Mean Corpuscular Hemoglobin 28.1 pg (27.0-33.0); Mean Corpuscular Volume 92.6 fL (80-98); Mean Platelet Volume 9.6 fL (9.4-12.3); Platelet Count 381 X10*3/uL (160-400); Red Blood Count 3.52 X10*6/uL (4.20-5.50); Red Cell Distribution Width 15.6 % (11.0-16.0); White Blood Count 8.1 X10*3/uL (4.8-10.8)
[2021-01-22 05:36] LABS: Anion Gap 12 (12-20); Blood Urea Nitrogen 17 mg/dL (9-16); Calcium 7.9 mg/dL (8.4-10.2); Carbon Dioxide 26 mmol/L (22-29); Chloride 106 mmol/L (96-108); Creatinine Clr Calc Pharmacy 84.7; Estimated Glomerular Filt Rate > 60; Glucose Random 76 mg/dL (60-115); Potassium 4.2 mmol/L (3.3-5.1); Sodium 140 mmol/L (135-145)
[2021-01-22] MEDS: Omeprazole 20 MG CAPSULE.DR PO ×2 (05:36→16:38)
[2021-01-22] MEDS: Levothyroxine Sodium 50 MCG TABLET PO (05:36)
[2021-01-22 05:40] LABS: Band Neutrophils Percent 2 % (3-5); Lymphocytes Absolute Manual 0.6 X10*3/uL (0.6-4.8); Lymphocytes Percent Manual 7 % (20-40); Metamyelocytes Absolute 0.1 X10*3/uL; Metamyelocytes Percent 1 %; Monocytes Absolute Manual 0.6 X10*3/uL (0.0-1.2); Monocytes Percent Manual 7 % (2-11); Myelocytes Absolute 0.1 X10*/uL; Myelocytes Percent 1 %; Neutrophils Absolute Manual 6.8 X10*3/uL (2.2-7.9); Neutrophils Percent Manual 82 % (45-73); Nucleated Red Blood Cells 1 /100WBC (0-0); RBC Morphology NOTED
[2021-01-22 05:41] LABS: Platelet Estimate NORMAL (NORMAL); Platelet Morphology Comment NORMAL
[2021-01-22 05:42] LABS: Polychromasia 1+ (0-2) /OIF
[2021-01-22 05:43] LABS: Ovalocytes 1+ (5-14) /OIF
--- NOTE | 2021-01-22 05:54 | PC.NURSE ---
0133; New admission, patient is a diabetic, blood sugar checked, poc 386. No sliding scale ordered. Dr. Joya notified via [employer], sliding scale ordered, per sliding scale 10 units humalog administered.
[2021-01-22 07:44] LABS: Glucose, Whole Blood 89 mg/dL (60-115)
[2021-01-22] MEDS: 0.9 % Sodium Chloride 500 ML IVCONT (07:50)
--- NOTE | 2021-01-22 09:08 | MHC.CM.PN ---
Patient is here with AMS; CM spoke with both HCPs- Demetria @ [phone] and Son/John in [place] @ [phone]. [place] [facility] [facility], where she was receiving STR after having Covid (and therefor could not return home to resume her [employer] services).Patient lives alone in an apartment and has [employer]/47 hours/week and home O2. The goal for dc is to return home and resume services VS return to STR at [facility], pending PT eval. CM has initiated and will follow for dc planning. IMM addressed with Demetria and original will be mailed out certified letter and a copy has been placed on the chart. PCP is Dr. Farideh Blackburn and HCP is on file.
[2021-01-22] MEDS: buPROPion HCl XL 300 MG TAB.ER.24H PO (09:25)
[2021-01-22] MEDS: Ascorbic Acid 250 MG TABLET PO (09:25)
[2021-01-22] MEDS: Cholecalciferol (Vitamin D3) 25 MCG TABLET PO (09:25)
--- NOTE | 2021-01-22 10:20 | P.CDIC_ITS ---
CDI Concurrent Query Service Date: 01/22/21 Documentation Clarification: Please clarify if you are treating a proba ble/suspected/likely or confirmed: Specifics: Toxic/metabolic encephalopathy Please specify if known or other Provider Response: Other Other Diagnosis: see note PLEASE DO NOT DELETE/MODIFY EXISTING CONTENT Additional information is needed in order to code to the highest accuracy and ap propriate Severity of Illness (SOI). Please clarify the information noted below in your progress notes and discharge summary. Risk Factors/Clinical Indicators/Treatments H&P: encephalopathy/delirium multifactorial 2nd to UTI as well as polypharmacy multiple sedation meds, benzo, antidepressants, muscle relaxants. hold some sedative meds for now. CDS: Ellie Flores CCS, CDIS Contact Number: [phone]. [phone] Please Review the information above and exercise your independent professional judgment in responding to the query. If you concur, pleas document in the PROGRESS NOTES and DISCHARGE SUMMARY. If you do not agree with the query, please document in the query above. THIS QUERY IS PART OF THE PERMANENT MEDICAL RECORD
--- NOTE | 2021-01-22 10:27 | PC.NURSE ---
AT 0730 BP 80/52 VERIFIED BY RN MANUALLY NS 500ML BOLUS UP PER DR WINSLOW. REPEAT BP WAS 94/52. BOLUS ORDER ENTERED BY DR IYER. UNABLE TO SIGN OUT DUE TO PHARMACY GLITCH.
[2021-01-22 11:18] LABS: Glucose, Whole Blood 116 mg/dL (60-115)
[2021-01-22] MEDS: cefTRIAXone sodium 1 GM in 0.9 % Sodium Chloride 50 ML IV (12:44)
--- NOTE | 2021-01-22 16:09 | P.PNIM_ITS ---
Subjective Subjective Date of Service: 01/22/21 Interval History: patient somnolent this morning, arousable but unable to provide meaningful full history despite use of historic interpreter, patient was sent from rehab facility due to change in mental status and recurrent falls in the ED complain of shortness of breath and cough and admitted that she is on 3 L of home oxygen, patient denies urinary symptoms of urgency frequency. ROS Unable to obtain review of system due to somnolence and confusion Physical Exam Vital Signs: Vital Signs: Last Vital Signs Temp 96.8 F 01/22/21 16:00 Pulse 96 01/22/21 16:00 Resp 18 01/22/21 16:00 BP 86/59 L 01/22/21 16:00 Pulse Ox 98 01/22/21 16:00 Body Mass Index 46.8 General somnolent easily arousable, no acute distress. Neck supple, no JVD. CVS regular rate rhythm, Respiratory lungs clear to auscultation, no respiratory distress, no wheeze, no rhonchi. Gastrointestinal abdomen soft, nontender, bowel sounds audible, no guarding , no rigidity. Extremities no clubbing cyanosis or edema. Neuro nonfocal , moving all 4 extremity. Skin no rash Objective Data Current Medications Generic Name Dose Route Start Last Admin Trade Name Freq PRN Reason Stop Dose Admin Acetaminophen 650 mg 01/22/21 00:22 Acetaminophen 325 Mg Tablet PO Q6H PRN Pain, Mild (Pain Scale 1-3) Albuterol Sulfate 2 puff 01/22/21 05:06 Albuterol Sulfate 90 Mcg 8 Gm Inhaler INHALE Q4H PRN Wheezing Amitriptyline HCl 100 mg 01/22/21 00:22 01/22/21 02:30 Amitriptyline Hcl 50 Mg Tablet PO 100 mg BEDTIME YOBANI Administration Ascorbic Acid 250 mg 01/22/21 09:00 01/22/21 09:25 Ascorbic Acid 250 Mg Tablet PO 250 mg DAILY [facility] Administration Bisacodyl 10 mg 01/22/21 00:22 Bisacodyl 10 Mg Supp.Rect [place] DAILY PRN Constipation Bupropion HCl 300 mg 01/22/21 09:00 01/22/21 09:25 Bupropion Hcl Xl 300 Mg Tab.Er.24h PO 300 mg DAILY [facility] Administration Docusate Sodium 100 mg 01/22/21 00:22 Docusate Sodium 100 Mg Capsule PO DAILY PRN Constipation Gabapentin 400 mg 01/22/21 00:22 01/22/21 09:25 Gabapentin 400 Mg Capsule PO 400 mg BID [facility] Administration Guaifenesin/Dextromethorphan 1 tab 01/22/21 00:22 01/22/21 12:44 Guaifenesin Dm 600/30 1 Tab Tab.Er.12h PO 1 tab Q12H [facility] Administration Heparin Sodium (Porcine) 5,000 unit 01/22/21 00:22 01/22/21 09:25 Heparin Sodium,Porcine 5,000 Unit/Ml Vial SUBCUT 5,000 unit BID [facility] Administration Ceftriaxone Sodium 1 gm/ 50 mls @ 100 mls/hr 01/22/21 11:00 01/22/21 13:36 Sodium Chloride IV Infused Q24H [facility] Infusion Insulin Human Lispro 0 unit 01/22/21 02:20 01/22/21 11:23 Insulin Lispro 100 Unit/Ml 3 Ml Vial SUBCUT Not Given QIDACHS [facility] Protocol Lamotrigine 200 mg 01/22/21 00:22 01/22/21 09:25 Lamotrigine 100 Mg Tablet PO 200 mg BID [facility] Administration Levothyroxine Sodium 50 mcg 01/22/21 06:30 01/22/21 05:36 Levothyroxine Sodium 50 Mcg Tablet PO 50 mcg DAILY@0630 [facility] Administration Montelukast Sodium 10 mg 01/22/21 21:00 Montelukast Sodium 10 Mg Tablet PO BEDTIME [facility] Naloxone HCl 4 mg 01/22/21 00:22 Naloxone Hcl Nasal 4 Mg [place] NOSTRILALT Q3M PRN UNRESPONSIVE Non-Formulary Medication 145 mcg 01/22/21 09:00 Linaclotide PO DAILY [facility] Non-Formulary Medication 1 drop 01/22/21 00:22 Propylene Glycol [Systane Complete] EYE-BOTH Q4H PRN dry eye(s) Non-Formulary Medication 0.5 mg 01/22/21 09:00 Budesonide [Pulmicort] INHALE DAILY [facility] Omeprazole 20 mg 01/22/21 00:22 01/22/21 05:36 Omeprazole 20 Mg Capsule. PO 20 mg BID@0630,1630 [facility] Administration Ondansetron HCl 4 mg 01/22/21 00:22 Ondansetron Hcl 4 Mg/2 Ml Vial IVPUSH Q8H PRN Nausea and Vomiting Pharmacy Consult 1 each 01/21/21 09:59 Consult Rx Perform Med Rec MISCELLANE ONCE PRN Consult order Sodium Chloride 3 ml 01/22/21 00:22 01/22/21 09:23 0.9 % Sodium Chloride Flush 3 Ml Syringe IVFLUSH 3 ml QSHIFT [facility] Administration Tramadol HCl 25 mg 01/22/21 00:22 Tramadol Hcl 50 Mg Tablet PO Q6H PRN Moderate Pain (Scale Score 5-6) Vitamin D 25 mcg 01/22/21 09:00 01/22/21 09:25 Cholecalciferol (Vitamin D3) 25 Mcg Tablet PO 25 mcg DAILY [facility] Administration Zolpidem Tartrate 5 mg 01/22/21 00:22 Zolpidem Tartrate 5 Mg Tablet PO BEDTIME PRN Sleep Labs CBC & Chem 7: 01/22/21 04:59 01/22/21 04:59 Microbiology Microbiology Results: Microbiology 01/21/21 10:51 Blood - Venous Blood Culture - Preliminary No growth after 24 hours. 01/21/21 10:43 Blood - Venous Blood Culture - Preliminary No growth after 24 hours. 01/21/21 10:04 Urine clean catch - Clean Catch Midstream Urine Culture - Preliminary Gram negative camilo Assessment and Plan (1) Encephalopathy: Status: Acute (2) UTI (urinary tract infection): Status: Acute (3) Urinary retention: Status: Acute (4) Acute and chronic respiratory failure with hypoxia: Status: Acute (5) Diabetes: Status: Acute Assessment and Plan: 60-year-old female with recently diagnosed COVID-19, admitted and managed and discharged on the , after being managed for hypoxic respiratory failure secondary to COVID-19 pneumonia, returns today with increased altered mental status. # toxic/metabolic encephalopathy - possibly multifactorial secondary to acute UTI as well as polypharmacy - patient on multiple sedating medications including benzos, antidepressants, on gabapentin - UA is positive for infection, urine culture growing Gram-negative rods Will continue IV ceftriaxone day 2 follow final urine culture report, hold be nzo, will place patient on IV fluid due to decreased by mouth intake Will add TSH to morning labs # UTI most likely secondary to [place] catheter, placed recently during previous hospitalization due to urinary retention Continue IV antibiotic as above and follow urine cultures and blood culture # urinary retention diagnosed during recent hospitalization with COVID-19 infection, will need voiding trial once more awake and ambulatory # acute on chronic respiratory failure with hypoxia no acute changes to her respiratory status, currently on 3 L of oxygen with stable finger oximetry , patient recently diagnosed to have COVID-19 as finished a course of Decadron on baseline 2-3 L of oxygen # bipolar disorder continue mood stabilizers, hold benzo # diabetes mellitus blood sugars stable continue insulin sliding scale and diabetic diet DVT prophylaxis:heparin bid
[2021-01-22 16:24] LABS: Glucose, Whole Blood 106 mg/dL (60-115)
[2021-01-22] MEDS: 0.9 % Sodium Chloride 1,000 ML 80 ML IVCONT (18:20)
[2021-01-22 20:23] LABS: Glucose, Whole Blood 145 mg/dL (60-115)
[2021-01-22] MEDS: Montelukast Sodium 10 MG TABLET PO (20:55)
[2021-01-22] MEDS: Zolpidem Tartrate 5 MG TABLET PO (20:55)
[2021-01-23 00:10] VITALS: BP 106/63; PULSE 105; RESP 18; TEMP 37; O2SAT 92
[2021-01-23 04:00] VITALS: BP 112/62; PULSE 94; RESP 20; TEMP 37; O2SAT 95
[2021-01-23] MEDS: 0.9 % Sodium Chloride 1,000 ML 80 ML IVCONT ×2 (05:18→21:17)
[2021-01-23] MEDS: Levothyroxine Sodium 50 MCG TABLET PO (05:18)
[2021-01-23] MEDS: Omeprazole 20 MG CAPSULE.DR PO ×2 (05:18→16:11)
[2021-01-23 06:29] LABS: MANUAL DIFF FLAG NO
[2021-01-23 06:53] LABS: Basophils Percent Auto 0.1 % (0-2); Hematocrit 31.8 % (37-47); Hemoglobin 9.5 g/dl (12.0-16.0); Imm Gran Abs Auto 0.34 X10*3/uL (0.00-0.03); Imm Gran Pct Auto 4.8 % (0.0-0.4); Lymphocytes Absolute Auto 0.7 X10*3/uL (1.2-4.9); Lymphocytes Percent Auto 10.4 % (20-40); Mean Corpuscular HGB Conc 29.9 g/dl (31.0-35.0); Mean Corpuscular Hemoglobin 28.3 pg (27.0-33.0); Mean Corpuscular Volume 94.6 fL (80-98); Mean Platelet Volume 10.2 fL (9.4-12.3); Monocytes Absolute Auto 0.5 X10*3/uL (0.1-1.2); Monocytes Percent Auto 7.3 % (2-11); Neutrophils Absolute Auto 5.4 X10*3/uL (2.0-8.3); Neutrophils Percent Auto 77.4 % (45-73); Platelet Count 368 X10*3/uL (160-400); Red Blood Count 3.36 X10*6/uL (4.20-5.50); Red Cell Distribution Width 15.7 % (11.0-16.0)
[2021-01-23 06:55] LABS: Anion Gap 12 (12-20); Blood Urea Nitrogen 12 mg/dL (9-16); Calcium 8.2 mg/dL (8.4-10.2); Carbon Dioxide 24 mmol/L (22-29); Chloride 109 mmol/L (96-108); Estimated Glomerular Filt Rate > 60; Glucose Random 140 mg/dL (60-115); Potassium 4.5 mmol/L (3.3-5.1); Sodium 140 mmol/L (135-145)
[2021-01-23 07:18] LABS: Thyroid Stimulating Hormone 0.97 uIU/mL (0.32-4.0)
[2021-01-23 07:38] LABS: Glucose, Whole Blood 125 mg/dL (60-115)
[2021-01-23 08:00] VITALS: BP 91/46; PULSE 95; RESP 20; TEMP 36.7; O2SAT 97
[2021-01-23] MEDS: buPROPion HCl XL 300 MG TAB.ER.24H PO (08:32)
[2021-01-23] MEDS: Cholecalciferol (Vitamin D3) 25 MCG TABLET PO (08:32)
[2021-01-23] MEDS: lamoTRIgine 100 MG TABLET 200 MG PO ×2 (08:32→21:17)
[2021-01-23] MEDS: Heparin Sodium,Porcine 5,000 UNIT/ML VIAL 5000 UNIT SUBCUT ×2 (08:33→21:18)
[2021-01-23] MEDS: Ascorbic Acid 250 MG TABLET PO (08:33)
[2021-01-23] MEDS: Gabapentin 400 MG CAPSULE PO ×2 (08:33→21:18)
[2021-01-23] MEDS: Docusate Sodium 100 MG CAPSULE PO (08:36)
--- NOTE | 2021-01-23 08:53 | HO.PM.IMPN ---
Subjective Subjective Date of Service: 01/23/21 Interval History: Patient seen and examined at bedside, sitting in chair, appears comfortable, she is fully alert and awake. she is oriented to self and place but not to time. She still has flight of ideas, she speaks about different topics when asked about 1 question, complain constipation for the past 15 days. no abdominal pain, no nausea or vomiting. She is complaining of shortness of breath that is the same with no increase symptoms. No headache, no chest pain, no abdominal pain. Physical Exam Vital Signs: Vital Signs: Last Vital Signs Temp 98.6 F 01/23/21 04:00 Pulse 94 01/23/21 04:00 Resp 20 01/23/21 04:00 BP 112/62 01/23/21 04:00 Pulse Ox 95 01/23/21 04:00 Body Mass Index 46.8 Const: Other: Oriented to self and place General: cooperative and no acute distress Eyes: General: appearance normal, both eyes and all related structures Resp: Other: On 3 L of O2 satting 95% Effort & Inspection: normal respiratory effort and able to speak in complete sentences Cardio: Rate: regular rate Rhythm: regular rhythm GI: Palpation (GI): Soft to palpation Auscultation: normal bowel sounds Skin: General skin exam: no rashes or lesions noted Neuro: Cognition (Neuro): normal cognition Extrem: General: Yes normal to inspection and Yes no pedal edema Objective Data Current Medications Generic Name Dose Route Start Last Admin Trade Name Freq PRN Reason Stop Dose Admin Acetaminophen 650 mg 01/22/21 00:22 Acetaminophen 325 Mg Tablet PO Q6H PRN Pain, Mild (Pain Scale 1-3) Albuterol Sulfate 2 puff 01/22/21 05:06 Albuterol Sulfate 90 Mcg 8 Gm Inhaler INHALE Q4H PRN Wheezing Amitriptyline HCl 100 mg 01/22/21 00:22 01/22/21 20:55 Amitriptyline Hcl 50 Mg Tablet PO 100 mg BEDTIME YOBANI Administration Ascorbic Acid 250 mg 01/22/21 09:00 01/22/21 09:25 Ascorbic Acid 250 Mg Tablet PO 250 mg DAILY [facility] Administration Bisacodyl 10 mg 01/22/21 00:22 Bisacodyl 10 Mg Supp.Rect [place] DAILY PRN Constipation Bupropion HCl 300 mg 01/22/21 09:00 01/22/21 09:25 Bupropion Hcl Xl 300 Mg Tab.Er.24h PO 300 mg DAILY [facility] Administration Docusate Sodium 100 mg 01/22/21 00:22 Docusate Sodium 100 Mg Capsule PO DAILY PRN Constipation Gabapentin 400 mg 01/22/21 00:22 01/22/21 20:55 Gabapentin 400 Mg Capsule PO 400 mg BID [facility] Administration Guaifenesin/Dextromethorphan 1 tab 01/22/21 00:22 01/22/21 23:35 Guaifenesin Dm 600/30 1 Tab Tab.Er.12h PO 1 tab Q12H [facility] Administration Heparin Sodium (Porcine) 5,000 unit 01/22/21 00:22 01/22/21 20:55 Heparin Sodium,Porcine 5,000 Unit/Ml Vial SUBCUT 5,000 unit BID [facility] Administration Ceftriaxone Sodium 1 gm/ 50 mls @ 100 mls/hr 01/22/21 11:00 01/22/21 13:36 Sodium Chloride IV Infused Q24H [facility] Infusion Sodium Chloride 1,000 mls @ 80 mls/hr 01/22/21 17:15 01/23/21 05:18 Ns IVCONT 80 mls/hr .[id number] YOBANI Administration Insulin Human Lispro 0 unit 01/22/21 02:20 01/23/21 08:04 Insulin Lispro 100 Unit/Ml 3 Ml Vial SUBCUT Not Given QIDACHS [facility] Protocol Lamotrigine 200 mg 01/22/21 00:22 01/22/21 20:55 Lamotrigine 100 Mg Tablet PO 200 mg BID [facility] Administration Levothyroxine Sodium 50 mcg 01/22/21 06:30 01/23/21 05:18 Levothyroxine Sodium 50 Mcg Tablet PO 50 mcg DAILY@0630 [facility] Administration Montelukast Sodium 10 mg 01/22/21 21:00 01/22/21 20:55 Montelukast Sodium 10 Mg Tablet PO 10 mg BEDTIME [facility] Administration Naloxone HCl 4 mg 01/22/21 00:22 Naloxone Hcl Nasal 4 Mg [place] NOSTRILALT Q3M PRN UNRESPONSIVE Non-Formulary Medication 145 mcg 01/22/21 09:00 Linaclotide PO DAILY [facility] Non-Formulary Medication 1 drop 01/22/21 00:22 Propylene Glycol [Systane Complete] EYE-BOTH Q4H PRN dry eye(s) Non-Formulary Medication 0.5 mg 01/22/21 09:00 Budesonide [Pulmicort] INHALE DAILY [facility] Omeprazole 20 mg 01/22/21 00:22 01/23/21 05:18 Omeprazole 20 Mg Capsule. PO 20 mg BID@0630,3960 [facility] Administration Ondansetron HCl 4 mg 01/22/21 00:22 Ondansetron Hcl 4 Mg/2 Ml Vial IVPUSH Q8H PRN Nausea and Vomiting Pharmacy Consult 1 each 01/21/21 09:59 Consult Rx Perform Med Rec MISCELLANE ONCE PRN Consult order Sodium Chloride 3 ml 01/22/21 00:22 01/23/21 08:05 0.9 % Sodium Chloride Flush 3 Ml Syringe IVFLUSH Not Given QSHIFT [facility] Tramadol HCl 25 mg 01/22/21 00:22 Tramadol Hcl 50 Mg Tablet PO Q6H PRN Moderate Pain (Scale Score 5-6) Vitamin D 25 mcg 01/22/21 09:00 01/22/21 09:25 Cholecalciferol (Vitamin D3) 25 Mcg Tablet PO 25 mcg DAILY [facility] Administration Zolpidem Tartrate 5 mg 01/22/21 00:22 01/22/21 20:55 Zolpidem Tartrate 5 Mg Tablet PO 5 mg BEDTIME PRN Administration Sleep Labs CBC & Chem 7: 01/23/21 06:03 01/23/21 06:03 Microbiology Microbiology Results: Microbiology 01/21/21 10:04 Urine clean catch - Clean Catch Midstream Urine Culture - Preliminary Klebsiella pneumoniae 01/21/21 10:51 Blood - Venous Blood Culture - Preliminary No growth after 24 hours. 01/21/21 10:43 Blood - Venous Blood Culture - Preliminary No growth after 24 hours. Assessment and Plan (1) Encephalopathy: Status: Acute (2) Delirium due to general medical condition: Status: Acute (3) UTI (urinary tract infection): Status: Acute (4) Urinary retention: Status: Acute Assessment and Plan: 60-year-old female with recently admitted and discharged on the , after being managed for hypoxic respiratory failure secondary to COVID-19 pneumonia, returns on this admission with increased altered mental status. # toxic/metabolic encephalopathy - possibly multifactorial secondary to acute UTI as well as polypharmacy with underlying bipolar disease - patient on multiple sedating medications including benzos, antidepressants, and gabapentin - UA is positive for infection, urine culture growing Klebsiella pneumoniae - still encephalopathic but mildly improving - Will continue IV ceftriaxone day 3 follow final urine culture report, hold benzo, - patient is alert, oriented to self and place, will stop IV fluids as she now is eating and drinking well - TSH within normal range of 0.97 # UTI - most likely secondary to [place] catheter, placed recently during previous hospitalization due to urinary retention - Continue IV antibiotic as above - culture growing Klebsiella pneumoniae - once mentation improves we can discharge on p.o. antibiotics back to half-way # urinary retention - diagnosed during recent hospitalization with COVID-19 infection, will need voiding trial once more awake and ambulatory # constipation - will add MiraLax daily # acute on chronic respiratory failure with hypoxia - no acute changes to her respiratory status, - currently on 3 L of oxygen with stable finger oximetry , - patient recently diagnosed to have COVID-19 as finished a course of Decadron - currently on baseline 2-3 L of oxygen # bipolar disorder - continue mood stabilizers, hold benzo # diabetes mellitus blood sugars stable continue insulin sliding scale and diabetic diet DVT prophylaxis:heparin bid Disposition: Discharge possibly 01/24 back to half-way
[2021-01-23] MEDS: polyethylene glycoL 3350 17 GM POWD.PACK PO (09:06)
[2021-01-23 11:20] LABS: Glucose, Whole Blood 146 mg/dL (60-115)
[2021-01-23 11:42] VITALS: BP 112/55; PULSE 105; RESP 21; TEMP 37; O2SAT 96
[2021-01-23] MEDS: cefTRIAXone sodium 1 GM in 0.9 % Sodium Chloride 50 ML IV (12:11)
[2021-01-23] MEDS: guaiFENesin DM 600/30 1 TAB TAB.ER.12H PO ×2 (12:12→23:39)
[2021-01-23 15:48] VITALS: BP 120/70; PULSE 100; RESP 16; TEMP 36.9; O2SAT 95
[2021-01-23 16:44] LABS: Glucose, Whole Blood 84 mg/dL (60-115)
[2021-01-23 19:20] VITALS: BP 106/68; PULSE 100; RESP 16; TEMP 36.7; O2SAT 97
[2021-01-23 19:58] LABS: Glucose, Whole Blood 74 mg/dL (60-115)
[2021-01-23] MEDS: Montelukast Sodium 10 MG TABLET PO (21:17)
[2021-01-23] MEDS: Amitriptyline HCl 50 MG TABLET 100 MG PO (21:17)
[2021-01-23] MEDS: Zolpidem Tartrate 5 MG TABLET PO (21:27)
[2021-01-23] MEDS: 0.9 % Sodium Chloride Flush 3 ML SYRINGE IVFLUSH (23:39)
[2021-01-24] VITALS (7 sets, daily range): BP systolic 93–120; BP diastolic 51–73; PULSE 91–110; RESP 14–20; TEMP 36.2–36.9; O2SAT 93–100
[2021-01-24] MEDS: 0.9 % Sodium Chloride 1,000 ML 80 ML IVCONT (05:36)
[2021-01-24] MEDS: Omeprazole 20 MG CAPSULE.DR PO ×2 (05:38→16:34)
[2021-01-24] MEDS: Levothyroxine Sodium 50 MCG TABLET PO (05:38)
[2021-01-24 07:32] LABS: Glucose, Whole Blood 114 mg/dL (60-115)
[2021-01-24] MEDS: Heparin Sodium,Porcine 5,000 UNIT/ML VIAL 5000 UNIT SUBCUT ×2 (08:36→20:15)
[2021-01-24] MEDS: buPROPion HCl XL 300 MG TAB.ER.24H PO (08:36)
[2021-01-24] MEDS: Ascorbic Acid 250 MG TABLET PO (08:36)
[2021-01-24] MEDS: Gabapentin 400 MG CAPSULE PO ×2 (08:36→20:15)
[2021-01-24] MEDS: Cholecalciferol (Vitamin D3) 25 MCG TABLET PO (08:36)
[2021-01-24] MEDS: lamoTRIgine 100 MG TABLET 200 MG PO ×2 (08:36→20:15)
[2021-01-24] MEDS: polyethylene glycoL 3350 17 GM POWD.PACK PO (08:37)
[2021-01-24 11:30] LABS: Glucose, Whole Blood 129 mg/dL (60-115)
[2021-01-24] MEDS: guaiFENesin DM 600/30 1 TAB TAB.ER.12H PO (12:40)
[2021-01-24] MEDS: cefTRIAXone sodium 1 GM in 0.9 % Sodium Chloride 50 ML IV (12:41)
--- NOTE | 2021-01-24 13:22 | HO.PM.IMPN ---
Subjective Subjective Date of Service: 01/24/21 Interval History: Patient more awake alert, history obtained via interpreter but she remains pleasantly confused, unable to provide any meaningful history, able to recall some events from last admission. Unable to obtain review of system due to confusion Physical Exam Vital Signs: Vital Signs: Last Vital Signs Temp 98.5 F 01/24/21 12:00 Pulse 92 01/24/21 12:00 Resp 20 01/24/21 12:00 BP 116/59 L 01/24/21 12:00 Pulse Ox 97 01/24/21 12:00 Body Mass Index 46.8 General awake,alert remains pleasantly confused, no acute distress. Neck supple, no JVD. CVS regular rate rhythm, Respiratory lungs clear to auscultation, no respiratory distress, no wheeze, no rhonchi. Gastrointestinal abdomen soft, nontender, bowel sounds audible, no guarding , no rigidity. Extremities no edema. Neuro nonfocal , moving all 4 extremity. Skin no rash Objective Data Current Medications Generic Name Dose Route Start Last Admin Trade Name Freq PRN Reason Stop Dose Admin Acetaminophen 650 mg 01/22/21 00:22 Acetaminophen 325 Mg Tablet PO Q6H PRN Pain, Mild (Pain Scale 1-3) Albuterol Sulfate 2 puff 01/22/21 05:06 Albuterol Sulfate 90 Mcg 8 Gm Inhaler INHALE Q4H PRN Wheezing Amitriptyline HCl 100 mg 01/22/21 00:22 01/23/21 21:17 Amitriptyline Hcl 50 Mg Tablet PO 100 mg BEDTIME YOBANI Administration Ascorbic Acid 250 mg 01/22/21 09:00 01/24/21 08:36 Ascorbic Acid 250 Mg Tablet PO 250 mg DAILY YOB[facility] Administration Bisacodyl 10 mg 01/22/21 00:22 Bisacodyl 10 Mg Supp.Rect [place] DAILY PRN Constipation Bupropion HCl 300 mg 01/22/21 09:00 01/24/21 08:36 Bupropion Hcl Xl 300 Mg Tab.Er.24h PO 300 mg DAILY [facility] Administration Docusate Sodium 100 mg 01/22/21 00:22 01/23/21 08:36 Docusate Sodium 100 Mg Capsule PO 100 mg DAILY PRN Administration Constipation Gabapentin 400 mg 01/22/21 00:22 01/24/21 08:36 Gabapentin 400 Mg Capsule PO 400 mg BID [facility] Administration Guaifenesin/Dextromethorphan 1 tab 01/22/21 00:22 01/24/21 12:40 Guaifenesin Dm 600/30 1 Tab Tab.Er.12h PO 1 tab Q12H [facility] Administration Heparin Sodium (Porcine) 5,000 unit 01/22/21 00:22 01/24/21 08:36 Heparin Sodium,Porcine 5,000 Unit/Ml Vial SUBCUT 5,000 unit BID [facility] Administration Ertapenem 1 gm/ Sodium 50 mls @ 100 mls/hr 01/24/21 13:12 Chloride IV 01/24/21 13:41 ONCE ONE Insulin Human Lispro 0 unit 01/22/21 02:20 01/24/21 12:27 Insulin Lispro 100 Unit/Ml 3 Ml Vial SUBCUT Not Given QIDACHS [facility] Protocol Lactulose 15 gm 01/24/21 13:10 Lactulose 20 Gm/30 Ml Solution PO DAILY PRN constipation Lamotrigine 200 mg 01/22/21 00:22 01/24/21 08:36 Lamotrigine 100 Mg Tablet PO 200 mg BID [facility] Administration Levothyroxine Sodium 50 mcg 01/22/21 06:30 01/24/21 05:38 Levothyroxine Sodium 50 Mcg Tablet PO 50 mcg DAILY@0630 [facility] Administration Montelukast Sodium 10 mg 01/22/21 21:00 01/23/21 21:17 Montelukast Sodium 10 Mg Tablet PO 10 mg BEDTIME [facility] Administration Naloxone HCl 4 mg 01/22/21 00:22 Naloxone Hcl Nasal 4 Mg [place] NOSTRILALT Q3M PRN UNRESPONSIVE Non-Formulary Medication 145 mcg 01/22/21 09:00 Linaclotide PO DAILY [facility] Non-Formulary Medication 1 drop 01/22/21 00:22 Propylene Glycol [Systane Complete] EYE-BOTH Q4H PRN dry eye(s) Non-Formulary Medication 0.5 mg 01/22/21 09:00 Budesonide [Pulmicort] INHALE DAILY [facility] Omeprazole 20 mg 01/22/21 00:22 01/24/21 05:38 Omeprazole 20 Mg Capsule. PO 20 mg BID@0630,1630 [facility] Administration Ondansetron HCl 4 mg 01/22/21 00:22 Ondansetron Hcl 4 Mg/2 Ml Vial IVPUSH Q8H PRN Nausea and Vomiting Pharmacy Consult 1 each 01/21/21 09:59 Consult Rx Perform Med Rec MISCELLANE ONCE PRN Consult order Polyethylene Glycol 17 gm 01/23/21 08:55 01/24/21 08:37 Polyethylene Glycol 3350 17 Gm Powd.Pack PO 17 gm DAILY [facility] Administration Sodium Chloride 3 ml 01/22/21 00:22 01/24/21 08:37 0.9 % Sodium Chloride Flush 3 Ml Syringe IVFLUSH Not Given QSHIFT [facility] Tramadol HCl 25 mg 01/22/21 00:22 Tramadol Hcl 50 Mg Tablet PO Q6H PRN Moderate Pain (Scale Score 5-6) Vitamin D 25 mcg 01/22/21 09:00 01/24/21 08:36 Cholecalciferol (Vitamin D3) 25 Mcg Tablet PO 25 mcg DAILY [facility] Administration Zolpidem Tartrate 5 mg 01/22/21 00:22 01/23/21 21:27 Zolpidem Tartrate 5 Mg Tablet PO 5 mg BEDTIME PRN Administration Sleep Labs CBC & Chem 7: 01/23/21 06:03 01/23/21 06:03 Microbiology Microbiology Results: Microbiology 01/21/21 10:04 Urine clean catch - Clean Catch Midstream Urine Culture - Final Klebsiella pneumoniae 01/21/21 10:51 Blood - Venous Blood Culture - Preliminary No growth after 48 hours. 01/21/21 10:43 Blood - Venous Blood Culture - Preliminary No growth after 48 hours. Assessment and Plan (1) Encephalopathy: Status: Acute (2) UTI (urinary tract infection): Status: Acute (3) Urinary retention: Status: Acute (4) Diabetes: Status: Acute Assessment and Plan: 60-year-old female with recently admitted and discharged on the , after being managed for hypoxic respiratory failure secondary to COVID-19 pneumonia, returns on this admission with increased altered mental status. # toxic/metabolic encephalopathy - possibly multifactorial secondary to acute UTI as well as polypharmacy with underlying bipolar disease - patient on multiple sedating medications including benzos, antidepressants, and gabapentin, TSH 0.97 - UA is positive for infection, urine culture growing Klebsiella pneumoniae esbl pos. sens only to ertapenem - still encephalopathic but improving - Will dc IV ceftriaxone day 3 and start iv ertapenem will consult ID , hold benzo, # UTI - most likely secondary to [place] catheter, placed recently during previous hospitalization due to urinary retention, urine culture grew Klebsiella pneumonia ESBL positive Antibiotic changed to IV ertapenem as above , id consult obtained # urinary retention - diagnosed during recent hospitalization with COVID-19 infection, will need voiding trial once more awake and ambulatory # constipation - on MiraLax daily, with no resolved will place patient on as needed lactulose # acute on chronic respiratory failure with hypoxia - no acute changes to her respiratory status, - currently on 3 L of oxygen with stable finger oximetry , - patient recently diagnosed to have COVID-19 as finished a course of Decadron, currently on baseline 2-3 L of oxygen # bipolar disorder - continue mood stabilizers, hold benzo # diabetes mellitus blood sugars stable continue insulin sliding scale and diabetic diet DVT prophylaxis:heparin bid Disposition: Discharge possibly back to custodial once medically stable
[2021-01-24] MEDS: Ertapenem Sodium 1 GM in 0.9 % Sodium Chloride 50 ML IV (14:37)
[2021-01-24 16:31] LABS: Glucose, Whole Blood 67 mg/dL (60-115)
[2021-01-24] MEDS: 0.9 % Sodium Chloride Flush 3 ML SYRINGE IVFLUSH ×2 (16:34→23:23)
[2021-01-24] MEDS: Lactulose 20 GM/30 ML SOLUTION 15 GM PO (19:52)
[2021-01-24 20:14] LABS: Glucose, Whole Blood 104 mg/dL (60-115)
[2021-01-24] MEDS: Montelukast Sodium 10 MG TABLET PO (20:15)
[2021-01-24] MEDS: Amitriptyline HCl 50 MG TABLET 100 MG PO (20:15)
[2021-01-24] MEDS: Zolpidem Tartrate 5 MG TABLET PO (20:20)
[2021-01-25 03:14] VITALS: BP 110/58; PULSE 108; RESP 20; TEMP 36.1; O2SAT 93
[2021-01-25] MEDS: Levothyroxine Sodium 50 MCG TABLET PO (05:58)
[2021-01-25] MEDS: Omeprazole 20 MG CAPSULE.DR PO ×2 (05:58→16:58)
[2021-01-25 07:11] VITALS: BP 105/61; PULSE 97; RESP 18; TEMP 36.2; O2SAT 93
[2021-01-25 07:22] LABS: Glucose, Whole Blood 103 mg/dL (60-115)
[2021-01-25] MEDS: 0.9 % Sodium Chloride Flush 3 ML SYRINGE IVFLUSH ×2 (08:57→17:02)
[2021-01-25] MEDS: Ascorbic Acid 250 MG TABLET PO (08:58)
[2021-01-25] MEDS: buPROPion HCl XL 300 MG TAB.ER.24H PO (08:58)
[2021-01-25] MEDS: polyethylene glycoL 3350 17 GM POWD.PACK PO (08:58)
[2021-01-25] MEDS: Gabapentin 400 MG CAPSULE PO ×2 (08:58→21:30)
[2021-01-25] MEDS: Cholecalciferol (Vitamin D3) 25 MCG TABLET PO (08:58)
[2021-01-25] MEDS: Heparin Sodium,Porcine 5,000 UNIT/ML VIAL 5000 UNIT SUBCUT ×2 (08:58→21:29)
[2021-01-25] MEDS: lamoTRIgine 100 MG TABLET 200 MG PO ×2 (08:59→21:30)
[2021-01-25 11:24] VITALS: BP 116/71; PULSE 89; RESP 20; TEMP 36.5; O2SAT 93
[2021-01-25 11:25] LABS: Glucose, Whole Blood 78 mg/dL (60-115)
--- NOTE | 2021-01-25 12:31 | MHC.CM.PN ---
per rounds pt expected dc tomorrow jess galan hadely notified of dc
[2021-01-25] MEDS: guaiFENesin DM 600/30 1 TAB TAB.ER.12H PO (13:19)
[2021-01-25] MEDS: Lactulose 20 GM/30 ML SOLUTION 15 GM PO (13:20)
[2021-01-25 15:23] VITALS: BP 122/59; PULSE 97; RESP 20; TEMP 36.6; O2SAT 98
[2021-01-25 16:21] LABS: Glucose, Whole Blood 66 mg/dL (60-115)
--- NOTE | 2021-01-25 16:48 | HO.PM.IMPN ---
Subjective Subjective Date of Service: 01/25/21 Interval History: Patient complaining of constipation and mild abdominal discomfort, complaining of cough mostly dry denies urinary symptoms but requesting for Valencia catheter to be removed, denies nausea vomiting no fever chills no other acute issues overnight. ROS General no headache, no dizziness, no fever chills. CVS no chest pain, no palpitation. Respiratory no cough, no sob Gastrointestinal no nausea, no vomiting, abdominal discomfort, constipation Physical Exam Vital Signs: Vital Signs: Last Vital Signs Temp 97.8 F 01/25/21 15:23 Pulse 97 01/25/21 15:23 Resp 20 01/25/21 15:23 BP 122/59 L 01/25/21 15:23 Pulse Ox 98 01/25/21 15:23 Body Mass Index 46.8 General awake,alert, no acute distress, no confusion. Neck supple, no JVD. CVS regular rate rhythm, Respiratory lungs clear to auscultation, no respiratory distress, no wheeze, no rhonchi. Gastrointestinal abdomen soft, nontender, bowel sounds audible, no guarding , no rigidity. Extremities no edema. Valencia draining clear urine Neuro nonfocal , moving all 4 extremity. Skin no rash Objective Data Current Medications Generic Name Dose Route Start Last Admin Trade Name Freq PRN Reason Stop Dose Admin Acetaminophen 650 mg 01/22/21 00:22 Acetaminophen 325 Mg Tablet PO Q6H PRN Pain, Mild (Pain Scale 1-3) Albuterol Sulfate 2 puff 01/22/21 05:06 Albuterol Sulfate 90 Mcg 8 Gm Inhaler INHALE Q4H PRN Wheezing Amitriptyline HCl 100 mg 01/22/21 00:22 01/24/21 20:15 Amitriptyline Hcl 50 Mg Tablet PO 100 mg BEDTIME YOBANI Administration Ascorbic Acid 250 mg 01/22/21 09:00 01/25/21 08:58 Ascorbic Acid 250 Mg Tablet PO 250 mg DAILY YOBANI Administration Bisacodyl 10 mg 01/22/21 00:22 Bisacodyl 10 Mg Supp.Rect [place] DAILY PRN Constipation Bupropion HCl 300 mg 01/22/21 09:00 01/25/21 08:58 Bupropion Hcl Xl 300 Mg Tab.Er.24h PO 300 mg DAILY YOBANI Administration Docusate Sodium 100 mg 01/22/21 00:22 01/23/21 08:36 Docusate Sodium 100 Mg Capsule PO 100 mg DAILY PRN Administration Constipation Gabapentin 400 mg 01/22/21 00:22 01/25/21 08:58 Gabapentin 400 Mg Capsule PO 400 mg BID YOBANI Administration Guaifenesin/Dextromethorphan 1 tab 01/22/21 00:22 01/25/21 13:19 Guaifenesin Dm 600/30 1 Tab Tab.Er.12h PO 1 tab Q12H YOBANI Administration Heparin Sodium (Porcine) 5,000 unit 01/22/21 00:22 01/25/21 08:58 Heparin Sodium,Porcine 5,000 Unit/Ml Vial SUBCUT 5,000 unit BID YOBANI Administration Ertapenem 1 gm/ Sodium 50 mls @ 100 mls/hr 01/25/21 16:45 Chloride IV DAILY [facility] Insulin Human Lispro 0 unit 01/22/21 02:20 01/25/21 12:35 Insulin Lispro 100 Unit/Ml 3 Ml Vial SUBCUT Not Given QIDACHS [facility] Protocol Lactulose 15 gm 01/24/21 13:10 01/25/21 13:20 Lactulose 20 Gm/30 Ml Solution PO 15 gm DAILY PRN Administration constipation Lamotrigine 200 mg 01/22/21 00:22 01/25/21 08:59 Lamotrigine 100 Mg Tablet PO 200 mg BID [facility] Administration Levothyroxine Sodium 50 mcg 01/22/21 06:30 01/25/21 05:58 Levothyroxine Sodium 50 Mcg Tablet PO 50 mcg DAILY@0630 YOBANI Administration Montelukast Sodium 10 mg 01/22/21 21:00 01/24/21 20:15 Montelukast Sodium 10 Mg Tablet PO 10 mg BEDTIME YOBANI Administration Naloxone HCl 4 mg 01/22/21 00:22 Naloxone Hcl Nasal 4 Mg [place] NOSTRILALT Q3M PRN UNRESPONSIVE Non-Formulary Medication 145 mcg 01/22/21 09:00 Linaclotide PO DAILY [facility] Non-Formulary Medication 1 drop 01/22/21 00:22 Propylene Glycol [Systane Complete] EYE-BOTH Q4H PRN dry eye(s) Non-Formulary Medication 0.5 mg 01/22/21 09:00 Budesonide [Pulmicort] INHALE DAILY [facility] Omeprazole 20 mg 01/22/21 00:22 01/25/21 05:58 Omeprazole 20 Mg Capsule.Dr PO 20 mg BID@6978,2000 YOBANI Administration Ondansetron HCl 4 mg 01/22/21 00:22 Ondansetron Hcl 4 Mg/2 Ml Vial IVPUSH Q8H PRN Nausea and Vomiting Pharmacy Consult 1 each 01/21/21 09:59 Consult Rx Perform Med Rec MISCELLANE ONCE PRN Consult order Polyethylene Glycol 17 gm 01/23/21 08:55 01/25/21 08:58 Polyethylene Glycol 3350 17 Gm Powd.Pack PO 17 gm DAILY YOBANI Administration Sodium Chloride 3 ml 01/22/21 00:22 01/25/21 08:57 0.9 % Sodium Chloride Flush 3 Ml Syringe IVFLUSH 3 ml QSHIFT YOBANI Administration Tramadol HCl 25 mg 01/22/21 00:22 Tramadol Hcl 50 Mg Tablet PO Q6H PRN Moderate Pain (Scale Score 5-6) Vitamin D 25 mcg 01/22/21 09:00 01/25/21 08:58 Cholecalciferol (Vitamin D3) 25 Mcg Tablet PO 25 mcg DAILY YOBANI Administration Zolpidem Tartrate 5 mg 01/22/21 00:22 01/24/21 20:20 Zolpidem Tartrate 5 Mg Tablet PO 5 mg BEDTIME PRN Administration Sleep Labs CBC & Chem 7: 01/23/21 06:03 01/23/21 06:03 Microbiology Microbiology Results: Microbiology 01/21/21 10:04 Urine clean catch - Clean Catch Midstream Urine Culture - Final Klebsiella pneumoniae 01/21/21 10:51 Blood - Venous Blood Culture - Preliminary No growth after 48 hours. 01/21/21 10:43 Blood - Venous Blood Culture - Preliminary No growth after 48 hours. Assessment and Plan (1) Encephalopathy: Status: Acute (2) Acute alteration in mental status: Status: Acute (3) UTI (urinary tract infection): Status: Acute (4) Urinary retention: Status: Acute (5) Constipation: Status: Acute Assessment and Plan: 60-year-old female with recently admitted and discharged on the , after being managed for hypoxic respiratory failure secondary to COVID-19 pneumonia, returns on this admission with increased altered mental status. # toxic/metabolic encephalopathy - resolved was possibly multifactorial secondary to acute UTI as well as polypharmacy with underlying bipolar disease - patient on multiple sedating medications including benzos, antidepressants, and gabapentin, TSH 0.97 - UA is positive for infection, urine culture growing Klebsiella pneumoniae esbl pos. sens only to ertapenem Will continue iv ertapenem day 2 / hold benzo, await ID eval # UTI - most likely secondary to Valencia catheter, placed recently during previous hospitalization due to urinary retention, urine culture grew Klebsiella pneumonia ESBL positive Antibiotic changed to IV ertapenem as above , id consult pending, will remove Valencia and give voiding trial # urinary retention - diagnosed during recent hospitalization with COVID-19 infection, will give voiding trial # constipation - persistent constipation will give lactulose and continue on MiraLax daily # acute on chronic respiratory failure with hypoxia - resolved, patient recently diagnosed to have COVID-19 and finished a course of Decadron, currently on baseline 2-3 L of oxygen # bipolar disorder - continue mood stabilizers, hold benzo # diabetes mellitus blood sugars stable continue insulin sliding scale and diabetic diet DVT prophylaxis:heparin bid. Disposition: Discharge possibly back to residential once medically stable
--- NOTE | 2021-01-25 16:50 | PC.NURSE ---
At 1650 responded to this patient's room at [employer] request for assistance. Pt sitting on the floor. Had attempted to transfer to commode independently. [employer]SM[employer] TE[employer] unable o support patient, so she sat on the floor. No injuries. 4 max assist back to bed. Chair alarm was in place and call salvador was in reach. Assisted back to bed, bed alarm activated and [facility] monitor continues to be in use. Dr. Salomon notified.
[2021-01-25 19:35] VITALS: BP 115/61; PULSE 102; RESP 20; TEMP 37.1; O2SAT 97
[2021-01-25 20:21] LABS: Glucose, Whole Blood 73 mg/dL (60-115)
[2021-01-25 20:34] LABS: Glucose, Whole Blood 151 mg/dL (60-115)
--- NOTE | 2021-01-25 21:23 | P.CNID_ITS ---
History of Present Illness Data of Consult Service Date: 01/25/21 Requesting physician: Radha Salomon Primary Care Provider: Farideh Marquez MD HPI Reason for consult: urinary infection She presents to hospital with confusion and mental status changes She has no dysuria She has ESBL UTI Klebsiella pneumonia Review of Systems Review of Systems: Yes all other systems are reviewed and are negative PMFSH Past Medical History Medical History Acute and chronic respiratory failure with hypoxia Asthma-COPD overlap syndrome Bipolar 1 disorder COPD (chronic obstructive pulmonary disease) Depression with anxiety Diabetes Eosinophilia GERD (gastroesophageal reflux disease) Hemangioma Hypothyroidism Hypovitaminosis D Insomnia Lumbar degenerative disc disease Lupus Lupus (systemic lupus erythematosus) Neck mass Obesity Oxygen dependent Polyarthralgia Recurrent UTI Severe asthma Tachycardia Trigger finger of right hand Urinary retention Family History Family History Father No problems noted. Mother No problems noted. Sister Nasopharyngeal cancer Family history: reviewed and not pertinent Surgical History Surgical History History of carpal tunnel release History of section History of colonoscopy History of cystocele History of hysterectomy History of shoulder surgery History of tonsillectomy Social History Social History Household Members: None Household Members Other:: per patient, from home but was at SNF for rehab Housing: Half-Way Do you presently have visiting nurse or other home services: Yes ([employer] at home) Alcohol intake: never Smoking Status: Never smoker Tobacco Type: Cigarette Use of substances other than those prescribed or required for medical reasons: No Currently Displaying Signs/Symptoms of Drug Intoxication Withdrawal: No Have you been hit, kicked, punched, or otherwise hurt by someone within the past year? If so, by whom?: No Do you feel safe in your current relationship?: No Current Relationship Is there a partner from a previous relationship who is making you feel unsafe now?: No Are you made to feel afraid or neglected: No Advance Directives: Yes Advance Directives on File: Yes Advance Directives Date on File: 01/08/21 Do you have thoughts of harming others: None Do you have a plan to hurt others: No Plan Recently lost weight without trying: Unsure service: No Current occupational status: disabled Current occupation: right and left handed--- HAS [employer] SERVICES Meds Allergies Allergy/AdvReac Type Severity Reaction Status Date / Time unknown analgesia given Allergy Severe rash Uncoded 12/17/20 14:18 antihi Active Medications: Current Medications Generic Name Dose Route Start Last Admin Trade Name Freq PRN Reason Stop Dose Admin Acetaminophen 650 mg 01/22/21 00:22 Acetaminophen 325 Mg Tablet PO Q6H PRN Pain, Mild (Pain Scale 1-3) Albuterol Sulfate 2 puff 01/22/21 05:06 Albuterol Sulfate 90 Mcg 8 Gm Inhaler INHALE Q4H PRN Wheezing Amitriptyline HCl 100 mg 01/22/21 00:22 01/24/21 20:15 Amitriptyline Hcl 50 Mg Tablet PO 100 mg BEDTIME YOBANI Administration Ascorbic Acid 250 mg 01/22/21 09:00 01/25/21 08:58 Ascorbic Acid 250 Mg Tablet PO 250 mg DAILY YOBANI Administration Bisacodyl 10 mg 01/22/21 00:22 Bisacodyl 10 Mg Supp.Rect [place] DAILY PRN Constipation Bupropion HCl 300 mg 01/22/21 09:00 01/25/21 08:58 Bupropion Hcl Xl 300 Mg Tab.Er.24h PO 300 mg DAILY YOBANI Administration Docusate Sodium 100 mg 01/22/21 00:22 01/23/21 08:36 Docusate Sodium 100 Mg Capsule PO 100 mg DAILY PRN Administration Constipation Docusate Sodium 100 mg 01/25/21 21:00 Docusate Sodium 100 Mg Capsule PO BID YOBANI Gabapentin 400 mg 01/22/21 00:22 01/25/21 08:58 Gabapentin 400 Mg Capsule PO 400 mg BID YOBANI Administration Guaifenesin/Dextromethorphan 10 ml 01/25/21 17:00 01/25/21 21:14 Guaifenesin Dm 200/20/10 Ml 10 Ml Syrup PO Not Given Q6H [facility] Heparin Sodium (Porcine) 5,000 unit 01/22/21 00:22 01/25/21 08:58 Heparin Sodium,Porcine 5,000 Unit/Ml Vial SUBCUT 5,000 unit BID YOBANI Administration Meropenem 1 gm/ Sodium 100 mls @ 100 mls/hr 01/25/21 18:00 Chloride IV Q8H [facility] Insulin Human Lispro 0 unit 01/22/21 02:20 01/25/21 21:15 Insulin Lispro 100 Unit/Ml 3 Ml Vial SUBCUT Not Given QIDACHS [facility] Protocol Lactulose 15 gm 01/24/21 13:10 01/25/21 13:20 Lactulose 20 Gm/30 Ml Solution PO 15 gm DAILY PRN Administration constipation Lamotrigine 200 mg 01/22/21 00:22 01/25/21 08:59 Lamotrigine 100 Mg Tablet PO 200 mg BID YOBANI Administration Levothyroxine Sodium 50 mcg 01/22/21 06:30 01/25/21 05:58 Levothyroxine Sodium 50 Mcg Tablet PO 50 mcg DAILY@0630 [facility] Administration Montelukast Sodium 10 mg 01/22/21 21:00 01/24/21 20:15 Montelukast Sodium 10 Mg Tablet PO 10 mg BEDTIME [facility] Administration Naloxone HCl 4 mg 01/22/21 00:22 Naloxone Hcl Nasal 4 Mg [place] NOSTRILALT Q3M PRN UNRESPONSIVE Non-Formulary Medication 145 mcg 01/22/21 09:00 Linaclotide PO DAILY [facility] Non-Formulary Medication 1 drop 01/22/21 00:22 Propylene Glycol [Systane Complete] EYE-BOTH Q4H PRN dry eye(s) Non-Formulary Medication 0.5 mg 01/22/21 09:00 Budesonide [Pulmicort] INHALE DAILY [facility] Omeprazole 20 mg 01/22/21 00:22 01/25/21 16:58 Omeprazole 20 Mg Capsule. PO 20 mg BID@0630,1630 [facility] Administration Ondansetron HCl 4 mg 01/22/21 00:22 Ondansetron Hcl 4 Mg/2 Ml Vial IVPUSH Q8H PRN Nausea and Vomiting Pharmacy Consult 1 each 01/21/21 09:59 Consult Rx Perform Med Rec MISCELLANE ONCE PRN Consult order Polyethylene Glycol 17 gm 01/23/21 08:55 01/25/21 08:58 Polyethylene Glycol 3350 17 Gm Powd.Pack PO 17 gm DAILY [facility] Administration Sodium Chloride 3 ml 01/22/21 00:22 01/25/21 17:02 0.9 % Sodium Chloride Flush 3 Ml Syringe IVFLUSH 3 ml QSHIFT [facility] Administration Tramadol HCl 25 mg 03/26/21 00:22 Tramadol Hcl 50 Mg Tablet PO Q6H PRN Moderate Pain (Scale Score 5-6) Vitamin D 25 mcg 01/22/21 09:00 01/25/21 08:58 Cholecalciferol (Vitamin D3) 25 Mcg Tablet PO 25 mcg DAILY YOBANI Administration Zolpidem Tartrate 5 mg 01/22/21 00:22 01/24/21 20:20 Zolpidem Tartrate 5 Mg Tablet PO 5 mg BEDTIME PRN Administration Sleep Home Medications Medication Instructions Recorded Confirmed Last Taken Type oxygen-air delivery systems #1 08/24/20 01/16/21 Unknown History linaclotide 145 mcg capsule 145 mcg PO DAILY 12/17/20 01/21/21 Unknown History liraglutide 0.6 mg/0.1 mL (18 mg/3 0.6 mg SUBCUT DAILY 12/17/20 01/21/21 Unknown History mL) subcutaneous pen injector Breo Ellipta 1 puff INHALATION DAILY 01/09/21 01/21/21 Unknown History amitriptyline 100 mg PO BEDTIME 01/09/21 01/21/21 Unknown History lubiprostone [Amitiza] 24 mcg PO BID 01/09/21 01/21/21 Unknown History albuterol sulfate 2 puff INHALATION Q4H PRN 01/14/21 01/21/21 Unknown History ascorbic acid (vitamin C) 250 mg PO DAILY 01/14/21 01/21/21 Unknown History bisacodyl 10 mg [place] DAILY PRN 01/14/21 01/21/21 Unknown History bupropion HCl 300 mg PO DAILY 01/14/21 01/21/21 Unknown History cholecalciferol (vitamin D3) 25 mcg PO DAILY 01/14/21 01/21/21 Unknown History [Vitamin D3] clonazepam 2 mg PO BEDTIME 01/14/21 01/21/21 Unknown History levothyroxine 50 mcg PO DAILY@0630 01/14/21 01/21/21 Unknown History montelukast [Singulair] 10 mg PO BEDTIME 01/14/21 01/21/21 Unknown History naloxone 4 mg INTRANASAL Q3M PRN 01/14/21 01/21/21 Unknown History ondansetron 4 mg PO Q6H PRN 01/14/21 01/21/21 Unknown History tramadol 25 mg PO Q6H PRN 01/14/21 01/21/21 Unknown History zolpidem 5 mg PO BEDTIME PRN 01/14/21 01/21/21 Unknown History Systane Complete 1 drp OPHTHALMIC (EYE) Q4H PRN 01/21/21 01/21/21 Unknown History dextromethorphan-guaifenesin 1 tab PO Q12H 01/21/21 01/21/21 Unknown History [Mucinex DM] metaxalone 800 mg PO TID PRN 01/21/21 01/21/21 Unknown History Physical Exam Vital Signs: Vital Signs: Last Vital Signs Temp 98.7 F 01/25/21 19:35 Pulse 102 H 01/25/21 19:35 Resp 20 01/25/21 19:35 BP 115/61 01/25/21 19:35 Pulse Ox 97 01/25/21 19:35 Body Mass Index 46.8 Const: General: cooperative HENMT: Head: Yes normal to inspection Mouth: Normal oral and palatal mucosa present Resp: Effort & Inspection: normal respiratory effort Cardio: Rate: regular rate Rhythm: regular rhythm GI: Palpation (GI): Soft to palpation and nontender : General: Yes no CVA tenderness Back/Spine/Pelvis: Back: no CVA tenderness Skin: General skin exam: no rashes or lesions noted Results Labs CBC & Chem 7: 01/23/21 06:03 01/23/21 06:03 Microbiology Microbiology Results: Microbiology 01/21/21 10:04 Urine clean catch - Clean Catch Midstream Urine Culture - F inal Klebsiella pneumoniae 01/21/21 10:51 Blood - Venous Blood Culture - Preliminary No growth after 48 hours. 01/21/21 10:43 Blood - Venous Blood Culture - Preliminary No growth after 48 hours. Assessment and Plan (1) Encephalopathy: Problem details: This is likely related to ESBL urinary infection There are no other infections seen Status: Acute Would give Merem Would switch to IV Ertapenem for 14 d total antibiotics on discharge (2) Acute alteration in mental status: Status: Acute
[2021-01-25] MEDS: Montelukast Sodium 10 MG TABLET PO (21:30)
[2021-01-25] MEDS: Docusate Sodium 100 MG CAPSULE PO (21:30)
[2021-01-25] MEDS: Amitriptyline HCl 50 MG TABLET 100 MG PO (21:30)
[2021-01-25] MEDS: Zolpidem Tartrate 5 MG TABLET PO (21:36)
[2021-01-25] MEDS: guaiFENesin DM 200/20/10 ML 10 ML SYRUP PO (22:54)
[2021-01-25 23:44] VITALS: BP 101/56; PULSE 104; RESP 18; TEMP 36.7; O2SAT 94
[2021-01-26] MEDS: 0.9 % Sodium Chloride Flush 3 ML SYRINGE IVFLUSH ×4 (01:32→21:57)
[2021-01-26 03:50] VITALS: BP 100/55; PULSE 101; RESP 18; TEMP 36.9; O2SAT 98
[2021-01-26] MEDS: Omeprazole 20 MG CAPSULE.DR PO ×2 (06:35→17:25)
[2021-01-26] MEDS: Levothyroxine Sodium 50 MCG TABLET PO (06:35)
[2021-01-26] MEDS: guaiFENesin DM 200/20/10 ML 10 ML SYRUP PO ×4 (06:35→21:53)
[2021-01-26 07:56] LABS: Glucose, Whole Blood 103 mg/dL (60-115)
[2021-01-26 08:00] VITALS: BP 108/59; PULSE 97; RESP 18; TEMP 36.6; O2SAT 97
[2021-01-26] MEDS: lamoTRIgine 100 MG TABLET 200 MG PO ×2 (08:33→21:53)
[2021-01-26] MEDS: Cholecalciferol (Vitamin D3) 25 MCG TABLET PO (08:33)
[2021-01-26] MEDS: Ascorbic Acid 250 MG TABLET PO (08:34)
[2021-01-26] MEDS: polyethylene glycoL 3350 17 GM POWD.PACK PO (08:34)
[2021-01-26] MEDS: Gabapentin 400 MG CAPSULE PO ×2 (08:34→21:53)
[2021-01-26] MEDS: buPROPion HCl XL 300 MG TAB.ER.24H PO (08:34)
[2021-01-26] MEDS: Docusate Sodium 100 MG CAPSULE PO (08:34)
[2021-01-26] MEDS: Heparin Sodium,Porcine 5,000 UNIT/ML VIAL 5000 UNIT SUBCUT ×2 (08:38→21:55)
[2021-01-26 11:36] VITALS: BP 122/73; PULSE 94; RESP 18; TEMP 36.3; O2SAT 97
[2021-01-26 11:53] LABS: Glucose, Whole Blood 100 mg/dL (60-115)
--- NOTE | 2021-01-26 15:24 | P.PNIM_ITS ---
Subjective Subjective Date of Service: 01/26/21 Interval History: History obtained via patient's niece at bedside, she noted patient to remain confused this a.m., Valencia catheter removed yesterday patient voided, had a bowel movement. Patient offers no acute complaints. ROS General no headache, no dizziness, no fever chills. CVS no chest pain, no palpitation. Respiratory no cough, no sob Gastrointestinal no nausea, no vomiting, abdominal discomfort Physical Exam Vital Signs: Vital Signs: Last Vital Signs Temp 97.3 F 01/26/21 11:36 Pulse 94 01/26/21 11:36 Resp 18 01/26/21 11:36 BP 122/73 01/26/21 11:36 Pulse Ox 97 01/26/21 11:36 Body Mass Index 46.8 General awake, alert, no acute distress, speaking in full sentences,making some sense. Neck supple, no JVD. CVS regular rate rhythm, Respiratory lungs clear to auscultation, no respiratory distress, no wheeze, no rhonchi. Gastrointestinal abdomen soft, nontender, bowel sounds audible, no guarding , no rigidity. Extremities no edema. Neuro nonfocal , moving all 4 extremity. Skin no rash Objective Data Current Medications Generic Name Dose Route Start Last Admin Trade Name Freq PRN Reason Stop Dose Admin Acetaminophen 650 mg 01/22/21 00:22 Acetaminophen 325 Mg Tablet PO Q6H PRN Pain, Mild (Pain Scale 1-3) Albuterol Sulfate 2 puff 01/22/21 05:06 Albuterol Sulfate 90 Mcg 8 Gm Inhaler INHALE Q4H PRN Wheezing Amitriptyline HCl 100 mg 01/22/21 00:22 01/25/21 21:30 Amitriptyline Hcl 50 Mg Tablet PO 100 mg BEDTIME YOBANI Administration Ascorbic Acid 250 mg 01/22/21 09:00 01/26/21 08:34 Ascorbic Acid 250 Mg Tablet PO 250 mg DAILY YOBANI Administration Bisacodyl 10 mg 01/22/21 00:22 Bisacodyl 10 Mg Supp.Rect [place] DAILY PRN Constipation Bupropion HCl 300 mg 01/22/21 09:00 01/26/21 08:34 Bupropion Hcl Xl 300 Mg Tab.Er.24h PO 300 mg DAILY YOBANI Administration Docusate Sodium 100 mg 01/22/21 00:22 01/23/21 08:36 Docusate Sodium 100 Mg Capsule PO 100 mg DAILY PRN Administration Constipation Docusate Sodium 100 mg 01/25/21 21:00 01/26/21 08:34 Docusate Sodium 100 Mg Capsule PO 100 mg BID YOBANI Administration Gabapentin 400 mg 01/22/21 00:22 01/26/21 08:34 Gabapentin 400 Mg Capsule PO 400 mg BID YOBANI Administration Guaifenesin/Dextromethorphan 10 ml 01/25/21 17:00 01/26/21 11:30 Guaifenesin Dm 200/20/10 Ml 10 Ml Syrup PO 10 ml Q6H YOBANI Administration Heparin Sodium (Porcine) 5,000 unit 01/22/21 00:22 01/26/21 08:38 Heparin Sodium,Porcine 5,000 Unit/Ml Vial SUBCUT 5,000 unit BID [facility] Administration Meropenem 1 gm/ Sodium 100 mls @ 100 mls/hr 01/25/21 18:00 01/26/21 13:49 Chloride IV Infused Q8H [facility] Infusion Insulin Human Lispro 0 unit 01/22/21 02:20 01/26/21 11:36 Insulin Lispro 100 Unit/Ml 3 Ml Vial SUBCUT Not Given QIDACHS [facility] Protocol Lactulose 15 gm 01/24/21 13:10 01/25/21 13:20 Lactulose 20 Gm/30 Ml Solution PO 15 gm DAILY PRN Administration constipation Lamotrigine 200 mg 01/22/21 00:22 01/26/21 08:33 Lamotrigine 100 Mg Tablet PO 200 mg BID YOBANI Administration Levothyroxine Sodium 50 mcg 01/22/21 06:30 01/26/21 06:35 Levothyroxine Sodium 50 Mcg Tablet PO 50 mcg DAILY@0630 YOBANI Administration Montelukast Sodium 10 mg 01/22/21 21:00 01/25/21 21:30 Montelukast Sodium 10 Mg Tablet PO 10 mg BEDTIME YOBANI Administration Naloxone HCl 4 mg 01/22/21 00:22 Naloxone Hcl Nasal 4 Mg [place] NOSTRILALT Q3M PRN UNRESPONSIVE Non-Formulary Medication 145 mcg 01/22/21 09:00 Linaclotide PO DAILY YOBANI Non-Formulary Medication 1 drop 01/22/21 00:22 Propylene Glycol [Systane Complete] EYE-BOTH Q4H PRN dry eye(s) Non-Formulary Medication 0.5 mg 01/22/21 09:00 Budesonide [Pulmicort] INHALE DAILY [facility] Omeprazole 20 mg 01/22/21 00:22 01/26/21 06:35 Omeprazole 20 Mg Capsule. PO 20 mg BID@9080,1643 YOBANI Administration Ondansetron HCl 4 mg 01/22/21 00:22 Ondansetron Hcl 4 Mg/2 Ml Vial IVPUSH Q8H PRN Nausea and Vomiting Pharmacy Consult 1 each 01/21/21 09:59 Consult Rx Perform Med Rec MISCELLANE ONCE PRN Consult order Polyethylene Glycol 17 gm 01/23/21 08:55 01/26/21 08:34 Polyethylene Glycol 3350 17 Gm Powd.Pack PO 17 gm DAILY YOBANI Administration Sodium Chloride 3 ml 01/22/21 00:22 01/26/21 08:33 0.9 % Sodium Chloride Flush 3 Ml Syringe IVFLUSH 3 ml QSHIFT YOBANI Administration Tramadol HCl 25 mg 01/22/21 00:22 Tramadol Hcl 50 Mg Tablet PO Q6H PRN Moderate Pain (Scale Score 5-6) Vitamin D 25 mcg 01/22/21 09:00 01/26/21 08:33 Cholecalciferol (Vitamin D3) 25 Mcg Tablet PO 25 mcg DAILY YOBANI Administration Zolpidem Tartrate 5 mg 01/22/21 00:22 01/25/21 21:36 Zolpidem Tartrate 5 Mg Tablet PO 5 mg BEDTIME PRN Administration Sleep Labs CBC & Chem 7: 01/23/21 06:03 01/23/21 06:03 Microbiology Microbiology Results: Microbiology 01/21/21 10:51 Blood - Venous Blood Culture - Final No growth after 5 days. 01/21/21 10:43 Blood - Venous Blood Culture - Final No growth after 5 days. 01/21/21 10:04 Urine clean catch - Clean Catch Midstream Urine Culture - Final Klebsiella pneumoniae Assessment and Plan (1) Encephalopathy: Problem details: This is likely related to ESBL urinary infection There are no other infections seen Status: Acute (2) Acute alteration in mental status: Status: Acute (3) UTI (urinary tract infection): Status: Acute (4) Urinary retention: Status: Acute (5) Acute and chronic respiratory failure with hypoxia: Status: Acute (6) Bipolar 1 disorder: Status: Acute (7) Diabetes: Status: Acute Assessment and Plan: 60-year-old female with recently admitted and discharged on the , after being managed for hypoxic respiratory failure secondary to COVID-19 pneumonia, returns on this admission with increased altered mental status. # toxic/metabolic encephalopathy - patient noted to be mildly confused this a.m., question baseline likely due to UTI as well as polypharmacy with underlying bipolar disease - patient on multiple sedating medications including benzos, antidepressants, and gabapentin, TSH 0.97 - UA is positive for infection, urine culture growing Klebsiella pneumoniae esbl pos. sens only to ertapenem, continue IV meropenem day 3, case discussed with ID she recommend total 14 days of IV antibiotic, will place midline and discharge patient to rehab on IV ertapenem Verified medications with pharmacy patient was taking all current medications at rehab. # UTI - most likely secondary to Valencia catheter, placed recently during previous hospitalization due to urinary retention, urine culture grew Klebsiella pneumonia ESBL positive Antibiotic changed to IV ertapenem as above , Valencia removed patient voiding with no difficulty # urinary retention - diagnosed during recent hospitalization with COVID-19 infection, Valencia removed # constipation - resolved continue stool softener. # acute on chronic respiratory failure with hypoxia - resolved, patient recently diagnosed to have COVID-19 and finished a course of Decadron, currently on baseline 2-3 L of oxygen # bipolar disorder - continue mood stabilizers, hold benzo # diabetes mellitus blood sugars stable continue insulin sliding scale and diabetic diet DVT prophylaxis:heparin bid. Disposition: Discharge possibly back to shelter once medically stable
[2021-01-26 15:54] LABS: Glucose, Whole Blood 78 mg/dL (60-115)
[2021-01-26 16:00] VITALS: BP 117/59; PULSE 101; RESP 20; TEMP 35.7; O2SAT 96
[2021-01-26 19:31] VITALS: BP 106/60; PULSE 98; RESP 20; TEMP 36.3; O2SAT 97
[2021-01-26 20:06] LABS: Glucose, Whole Blood 60 mg/dL (60-115)
[2021-01-26] MEDS: Amitriptyline HCl 50 MG TABLET 100 MG PO (21:52)
[2021-01-26] MEDS: Montelukast Sodium 10 MG TABLET PO (21:53)
[2021-01-26] MEDS: Zolpidem Tartrate 5 MG TABLET PO (22:00)
[2021-01-26 23:58] VITALS: BP 104/61; PULSE 97; RESP 18; TEMP 36.6; O2SAT 98
[2021-01-27 04:00] VITALS: PULSE 94; RESP 14
[2021-01-27] MEDS: Omeprazole 20 MG CAPSULE.DR PO ×2 (05:02→17:43)
[2021-01-27] MEDS: Levothyroxine Sodium 50 MCG TABLET PO (05:03)
[2021-01-27] MEDS: guaiFENesin DM 200/20/10 ML 10 ML SYRUP PO ×4 (05:03→22:36)
[2021-01-27 07:53] LABS: Glucose, Whole Blood 113 mg/dL (60-115)
[2021-01-27 08:00] VITALS: TEMP 36.1
[2021-01-27] MEDS: 0.9 % Sodium Chloride Flush 3 ML SYRINGE IVFLUSH ×2 (09:14→15:54)
[2021-01-27] MEDS: Docusate Sodium 100 MG CAPSULE PO ×2 (09:14→22:37)
[2021-01-27] MEDS: lamoTRIgine 100 MG TABLET 200 MG PO ×2 (09:14→22:36)
[2021-01-27] MEDS: Ascorbic Acid 250 MG TABLET PO (09:14)
[2021-01-27] MEDS: Heparin Sodium,Porcine 5,000 UNIT/ML VIAL 5000 UNIT SUBCUT ×2 (09:14→22:36)
[2021-01-27] MEDS: Gabapentin 400 MG CAPSULE PO ×2 (09:16→22:37)
[2021-01-27] MEDS: Cholecalciferol (Vitamin D3) 25 MCG TABLET PO (09:16)
[2021-01-27] MEDS: polyethylene glycoL 3350 17 GM POWD.PACK PO (09:16)
[2021-01-27] MEDS: buPROPion HCl XL 300 MG TAB.ER.24H PO (09:16)
[2021-01-27 10:51] VITALS: BP 92/55; PULSE 97; RESP 20; TEMP 36; O2SAT 100
[2021-01-27 11:10] LABS: Glucose, Whole Blood 134 mg/dL (60-115)
--- NOTE | 2021-01-27 13:26 | PM.DS ---
DS: Providers Provider Date of Service: 01/27/21 Date of admission: 01/21/21 22:36 Primary care physician: Farideh Marquez MD Consults: 01/24/21 13:12 Consult to Infectious Diseases Routine Consulting Provider: Desire Salinas Reason for consultation: esbl pos uti 01/24/21 13:13 Consult to Infectious Diseases Routine Consulting Provider: Desire Salinas Reason for consultation: uti 01/25/21 16:43 Consult to Infectious Diseases Routine Consulting Provider: Desire Salinas Reason for consultation: uti DS: Diagnosis Discharge Diagnosis (1) Encephalopathy: Status: Acute (2) Acute alteration in mental status: Status: Acute DS: Medications Discharge Medications Home Medications: Home Medications Medication Instructions Recorded Confirmed oxygen-air delivery systems #1 08/24/20 01/16/21 linaclotide 145 mcg capsule 145 mcg PO DAILY 12/17/20 01/21/21 liraglutide 0.6 mg/0.1 mL (18 mg/3 0.6 mg SUBCUT DAILY 12/17/20 01/21/21 mL) subcutaneous pen injector Saba Kruegerta 1 puff INHALATION DAILY 01/09/21 01/21/21 amitriptyline 100 mg PO BEDTIME 01/09/21 01/21/21 lubiprostone [Amitiza] 24 mcg PO BID 01/09/21 01/21/21 albuterol sulfate 2 puff INHALATION Q4H PRN 01/14/21 01/21/21 ascorbic acid (vitamin C) 250 mg PO DAILY 01/14/21 01/21/21 bisacodyl 10 mg OR DAILY PRN 01/14/21 01/21/21 bupropion HCl 300 mg PO DAILY 01/14/21 01/21/21 cholecalciferol (vitamin D3) 25 mcg PO DAILY 01/14/21 01/21/21 [Vitamin D3] levothyroxine 50 mcg PO DAILY@0630 01/14/21 01/21/21 montelukast [Singulair] 10 mg PO BEDTIME 01/14/21 01/21/21 naloxone 4 mg INTRANASAL Q3M PRN 01/14/21 01/21/21 ondansetron 4 mg PO Q6H PRN 01/14/21 01/21/21 tramadol 25 mg PO Q6H PRN 01/14/21 01/21/21 zolpidem 5 mg PO BEDTIME PRN 01/14/21 01/21/21 Systane Complete 1 drp OPHTHALMIC (EYE) Q4H PRN 01/21/21 01/21/21 metaxalone 800 mg PO TID PRN 01/21/21 01/21/21 Previous Rx's Medication Instructions Recorded budesonide 0.5 mg/2 mL suspension 0.5 mg INHALATION DAILY 30 Days 08/25/20 for nebulization #60 ml lamotrigine 200 mg tablet 200 mg PO BID 30 Days #60 tab 08/26/20 pantoprazole 40 mg tablet,delayed 40 mg PO BID 90 Days #180 tab 08/26/20 release blood-glucose meter #1 ea 09/22/20 shower seat #1 ea 11/23/20 wheelchair #1 ea 11/23/20 gabapentin 400 mg capsule 400 mg PO BID 30 Days #60 cap 11/26/20 miscellaneous medical supply #1 ea 12/22/20 dextromethorphan-guaifenesin 10 ml PO Q6H #237 ml 01/27/21 ertapenem 1 g IV DAILY #10 ea 01/27/21 DS: Summary Hospital Course Hospital Course: History of presenting illness Chief Complaint: Altered mental status 60-year-old female with past medical history of acute on chronic respiratory failure with a baseline of 3 L of oxygen, asthma/COPD, bipolar, depression, diabetes, hypothyroidism, lupus, who was recently discharged from the [facility] on [facility]/19 to [facility] after being managed for acute on chronic hypoxic respiratory failure secondary to COVID-19 pneumonia. She was treated with IV Decadron. With improvement of symptoms. She was able to be weaned down oxygen, to 4-5 L of O2 with minimal symptoms. At that hospital admission patient had urinary retention and was discharged with East catheter. With a plan for a void trial as soon as patient more ambulatory. She is sent back from [facility] today for change in mental status and recurrent falls. Patient herself is alert and oriented, but at times confused, she reports shortness of breath and cough, but tells me that she uses about 3 L of oxygen at home. She has no fever or chills, she denies any abdominal pain nausea or vomiting, denies falling, keeps talking about her sister, and wanting to see her sister otherwise she will leave, keeps asking for coffee. She otherwise denies any urinary symptoms since he has a East catheter in place, no lower extremity edema. On arrival to the ED patient has a temp of 97.9?, heart rate of 95, respiratory rate of 15, blood pressure 98/59, satting 94% on 4 L Labs are significant for WBC count of 10.6, hemoglobin of 11.8, ABG that showed pH of 7.43, CO2 of 46, sodium 141, potassium 4.1, BUN of 21, creatinine of 0.97, AST 38, ALT 47, UA that is positive for nitrites, leukocyte Estrace, WBC, bacteria, Head CT shows no acute intracranial process, minimal inflammatory changes Hospital course 60-year-old female with recently admitted and discharged on the , after being managed for hypoxic respiratory failure secondary to COVID-19 pneumonia, returns on this admission with increased altered mental status. # toxic/metabolic encephalopathy patient diagnosed to have Klebsiella pneumonia UTI ESBL positive therefore patient placed on IV ertapenem and is being discharged to rehab facility To finish the course of antibiotic will need 10 more days of IV ertapenem ending on 02/06/21, since patient was on multiple psychiatric medication Klonopin has also been discontinued Since it was also felt to be contributing to confusion. # urinary retention, diagnosed during recent hospitalization with COVID-19 infection, East removed and patient voiding with no difficulty. # constipation resolved continue stool softener. # acute on chronic respiratory failure with hypoxia, resolved, patient recently diagnosed to have COVID-19 and finished a course of Decadron, chest x-rays shows persistent bilateral infiltrate, Likely related to recent COVID-19 infection, continue cough medication, currently on baseline 2-3 L of oxygen, recommend out of bed to chair and incentive spirometery # bipolar disorder continue mood stabilizers, hold benzo # diabetes mellitus blood sugars stable continue home medication and diabetic diet # patient being discharged to rehab for less than 30 days. Time Spent with Patient Time attestation: Total time spent providing and/or coordinating discharge services: Discharge coordination time: Greater than 30 minutes Physical Exam Vital Signs: Vital Signs: Last Vital Signs Temp 96.8 F 01/27/21 10:51 Pulse 97 01/27/21 10:51 Resp 20 01/27/21 10:51 BP 92/55 L 01/27/21 10:51 Pulse Ox 100 01/27/21 10:51 Body Mass Index 46.8 General awake, alert, no acute distress, speaking in full sentences,making sense. Neck supple, no JVD. CVS regular rate rhythm, Respiratory lungs coarse breath sounds, no respiratory distress, no wheeze, no rhonchi. Gastrointestinal abdomen soft, nontender, bowel sounds audible, no guarding , no rigidity. Extremities no edema. Neuro nonfocal , moving all 4 extremity. Skin no rash DS: Data Data Completed and Pending Labs on day of discharge: Laboratory Results - last 24 hr 01/26/21 01/26/21 01/27/21 15:45 20:02 07:50 POC Glucose 78 60 113 COVID-19 (ABBIE) COVID-19 Clin Com 01/27/21 01/27/21 10:53 11:45 POC Glucose 134 H COVID-19 (ABBIE) Cancelled COVID-19 Clin Com Cancelled Discharge Plan Discharge Patient Disposition: Xfer SNF [facility] [Outside] Farideh Starr MD [Primary Care Provider] - (SNF-) Discharge Medications: New ertapenem 1 gram recon soln 1 g IV DAILY Qty: 10 RF: 0 dextromethorphan-guaifenesin 10-100 mg/5 mL Syrup 10 ml PO Q6H Qty: 237 RF: 0 Continued budesonide [Pulmicort] 0.5 mg/2 mL suspension for nebulization 0.5 mg inhalation DAILY 30 Days Qty: 60 RF: 11 lamotrigine [Lamictal] 200 mg tablet 200 mg PO BID 30 Days Qty: 60 RF: 11 pantoprazole [Protonix] 40 mg tablet,delayed release (DR/EC) 40 mg PO BID 90 Days Qty: 180 RF: 3 gabapentin 400 mg capsule 400 mg PO BID 30 Days Qty: 60 RF: 3 albuterol sulfate 90 mcg/actuation HFA aerosol inhaler 2 puff inhalation Q4H PRN (Reason: Wheezing) RF: 0 zolpidem 5 mg Tablet 5 mg PO BEDTIME PRN (Reason: Sleep) RF: 0 ascorbic acid (vitamin C) 250 mg Tablet 250 mg PO DAILY RF: 0 bisacodyl 10 mg Suppository 10 mg OR DAILY PRN (Reason: Constipation) RF: 0 bupropion HCl 300 mg tablet extended release 24 hr 300 mg PO DAILY RF: 0 levothyroxine 50 mcg Tablet 50 mcg PO DAILY@0630 RF: 0 naloxone 4 mg/actuation [place],Non-Aerosol 4 mg INTRANASAL Q3M PRN (Reason: UNRESPONSIVE) RF: 0 montelukast [Singulair] 10 mg tablet 10 mg PO BEDTIME RF: 0 tramadol 50 mg Tablet 25 mg PO Q6H PRN (Reason: Moderate Pain (Scale Score 5-6)) RF: 0 cholecalciferol (vitamin D3) [Vitamin D3] 25 mcg (1,000 unit) Capsule 25 mcg PO DAILY RF: 0 ondansetron 4 mg Tablet,Disintegrating 4 mg PO Q6H PRN (Reason: Nausea And Vomiting) RF: 0 amitriptyline 100 mg tablet 100 mg PO BEDTIME RF: 0 lubiprostone [Amitiza] 24 mcg capsule 24 mcg PO BID RF: 0 Breo Ellipta 200-25 mcg/dose blister with device 1 puff inhalation DAILY RF: 0 metaxalone 800 mg Tablet 800 mg PO TID PRN (Reason: Muscle Pain) RF: 0 Systane Complete 0.6 % drops 1 drp ophthalmic (eye) Q4H PRN (Reason: dry eye(s)) RF: 0 liraglutide 0.6 mg/0.1 mL (18 mg/3 mL) pen injector 0.6 mg subcut DAILY RF: 0 linaclotide 145 mcg capsule 145 mcg PO DAILY RF: 0 Discontinued clonazepam 2 mg tablet 2 mg PO BEDTIME RF: 0 dexamethasone [Decadron] 6 mg tablet 6 mg PO DAILY Qty: 5 RF: 0 Mucinex DM 30-600 mg Tablet Extended Release 12 Hr 1 tab PO Q12H RF: 0 No Action (DME) wheelchair See Rx Instructions .Route .MEDSUPPLY Qty: 1 RF: 0 (DME) shower seat See Rx Instructions .Route .MEDSUPPLY Qty: 1 RF: 0 (DME) miscellaneous medical supply Misc See Rx Instructions .ROUTE .MEDSUPPLY Qty: 1 RF: 0 (DME) oxygen-air delivery systems Device See Rx Instructions .ROUTE .MEDSUPPLY Qty: 1 RF: 0 (DME) blood-glucose meter [[employer] [place] Lite] Kit See Rx Instructions .ROUTE .MEDSUPPLY Qty: 1 RF: 0 Discharge Orders: Discharge Order (Routine); Ordered 01/27/21 Ordered By: Radha Salomon Diet: diabetic diet Activity on Discharge: As tolerated Stand Alone Forms: Patient Portal Discharge page Care Plan Goals: KLONOPIN DISCONTINUED PATIENT NOTED TO HAVE NO ANXIETY. Health Concerns: ENCEPHALOPATHY/UTI, CONFUSION RESOLVED, EAST CATHETER REMOVED PATIENT VOIDING WITH NO DIFFICULTY Plan of Treatment: PATIENT FOLLOW-UP WITH PRIMARY CARE PHYSICIAN
[2021-01-27 13:46] LABS: COVID-19 Test Negative (Negative); IDNOW Serial# 9DD0AD1C
--- NOTE | 2021-01-27 14:01 | MHC.CM.PN ---
Patient has been medically cleared for dc to SNF today. Patient will return to [facility] today at 6 PM, [facility]. Patient is aware of and in agreement with the dc plan and CM addressed second IMM with her today(original to her and a copy on the chart). Per Patient's request, CM has informed Patient's Sister/Gloria @ [phone] of the dc plan.
--- NOTE | 2021-01-27 15:24 | P.PNIM_ITS ---
Subjective Subjective Date of Service: 01/28/21 Interval History: pt awake alert complaining of cough, much more awake alert answering questions appropriately, voiding since Valencia catheter removed. ROS General no headache, no dizziness, no fever chills. CVS no chest pain, no palpitation. Respiratory cough mostly dry, no sob Gastrointestinal no nausea, no vomiting, abdominal discomfort Physical Exam Vital Signs: Vital Signs: Last Vital Signs Temp 96.8 F 01/27/21 10:51 Pulse 97 01/27/21 10:51 Resp 20 01/27/21 10:51 BP 92/55 L 01/27/21 10:51 Pulse Ox 100 01/27/21 10:51 Body Mass Index 46.8 General awake, alert, no acute distress, speaking in full sentences,making sense. Neck supple, no JVD. CVS regular rate rhythm, Respiratory lungs clear to auscultation, no respiratory distress, no wheeze, no rhonchi. Gastrointestinal abdomen soft, nontender, bowel sounds audible, no guarding , no rigidity. Extremities no edema. Neuro nonfocal , moving all 4 extremity, no confusion, alert oriented times 3. Skin no rash Objective Data Current Medications Generic Name Dose Route Start Last Admin Trade Name Freq PRN Reason Stop Dose Admin Acetaminophen 650 mg 01/22/21 00:22 Acetaminophen 325 Mg Tablet PO Q6H PRN Pain, Mild (Pain Scale 1-3) Albuterol Sulfate 2 puff 01/22/21 05:06 Albuterol Sulfate 90 Mcg 8 Gm Inhaler INHALE Q4H PRN Wheezing Amitriptyline HCl 100 mg 01/22/21 00:22 01/26/21 21:52 Amitriptyline Hcl 50 Mg Tablet PO 100 mg BEDTIME YOBANI Administration Ascorbic Acid 250 mg 01/22/21 09:00 01/27/21 09:14 Ascorbic Acid 250 Mg Tablet PO 250 mg DAILY YOBANI Administration Bisacodyl 10 mg 01/22/21 00:22 Bisacodyl 10 Mg Supp.Rect ID DAILY PRN Constipation Bupropion HCl 300 mg 01/22/21 09:00 01/27/21 09:16 Bupropion Hcl Xl 300 Mg Tab.Er.24h PO 300 mg DAILY YOBANI Administration Docusate Sodium 100 mg 01/22/21 00:22 01/23/21 08:36 Docusate Sodium 100 Mg Capsule PO 100 mg DAILY PRN Administration Constipation Docusate Sodium 100 mg 01/25/21 21:00 01/27/21 09:14 Docusate Sodium 100 Mg Capsule PO 100 mg BID [facility] Administration Gabapentin 400 mg 01/22/21 00:22 01/27/21 09:16 Gabapentin 400 Mg Capsule PO 400 mg BID [facility] Administration Guaifenesin/Dextromethorphan 10 ml 01/25/21 17:00 01/27/21 10:17 Guaifenesin Dm 200/20/10 Ml 10 Ml Syrup PO 10 ml Q6H [facility] Administration Heparin Sodium (Porcine) 5,000 unit 01/22/21 00:22 01/27/21 09:14 Heparin Sodium,Porcine 5,000 Unit/Ml Vial SUBCUT 5,000 unit BID [facility] Administration Meropenem 1 gm/ Sodium 100 mls @ 100 mls/hr 01/25/21 18:00 01/27/21 11:22 Chloride IV Infused Q8H [facility] Infusion Insulin Human Lispro 0 unit 01/22/21 02:20 01/27/21 11:21 Insulin Lispro 100 Unit/Ml 3 Ml Vial SUBCUT Not Given QIDACHS [facility] Protocol Lactulose 15 gm 01/24/21 13:10 01/25/21 13:20 Lactulose 20 Gm/30 Ml Solution PO 15 gm DAILY PRN Administration constipation Lamotrigine 200 mg 01/22/21 00:22 01/27/21 09:14 Lamotrigine 100 Mg Tablet PO 200 mg BID [facility] Administration Levothyroxine Sodium 50 mcg 01/22/21 06:30 01/27/21 05:03 Levothyroxine Sodium 50 Mcg Tablet PO 50 mcg DAILY@0630 [facility] Administration Montelukast Sodium 10 mg 01/22/21 21:00 01/26/21 21:53 Montelukast Sodium 10 Mg Tablet PO 10 mg BEDTIME [facility] Administration Naloxone HCl 4 mg 01/22/21 00:22 Naloxone Hcl Nasal 4 Mg [place] NOSTRILALT Q3M PRN UNRESPONSIVE Non-Formulary Medication 145 mcg 01/22/21 09:00 Linaclotide PO DAILY YOBANI Non-Formulary Medication 1 drop 01/22/21 00:22 Propylene Glycol [Systane Complete] EYE-BOTH Q4H PRN dry eye(s) Non-Formulary Medication 0.5 mg 01/22/21 09:00 Budesonide [Pulmicort] INHALE DAILY YOBANI Omeprazole 20 mg 01/22/21 00:22 01/27/21 05:02 Omeprazole 20 Mg Capsule. PO 20 mg BID@0622,9496 YOBANI Administration Ondansetron HCl 4 mg 01/22/21 00:22 Ondansetron Hcl 4 Mg/2 Ml Vial IVPUSH Q8H PRN Nausea and Vomiting Pharmacy Consult 1 each 01/21/21 09:59 Consult Rx Perform Med Rec MISCELLANE ONCE PRN Consult order Polyethylene Glycol 17 gm 01/23/21 08:55 01/27/21 09:16 Polyethylene Glycol 3350 17 Gm Powd.Pack PO 17 gm DAILY YOBANI Administration Sodium Chloride 3 ml 01/22/21 00:22 01/27/21 09:14 0.9 % Sodium Chloride Flush 3 Ml Syringe IVFLUSH 3 ml QSHIFT YOBANI Administration Vitamin D 25 mcg 01/22/21 09:00 01/27/21 09:16 Cholecalciferol (Vitamin D3) 25 Mcg Tablet PO 25 mcg DAILY YOBANI Administration Labs CBC & Chem 7: 01/23/21 06:03 01/23/21 06:03 Microbiology Microbiology Results: Microbiology 01/21/21 10:51 Blood - Venous Blood Culture - Final No growth after 5 days. 01/21/21 10:43 Blood - Venous Blood Culture - Final No growth after 5 days. 01/21/21 10:04 Urine clean catch - Clean Catch Midstream Urine Culture - Final Klebsiella pneumoniae Assessment and Plan (1) Encephalopathy: Status: Acute (2) UTI (urinary tract infection): Status: Acute (3) Urinary retention: Status: Acute (4) Acute and chronic respiratory failure with hypoxia: Status: Acute (5) Diabetes: Status: Acute (6) Bipolar 1 disorder: Status: Acute Assessment and Plan: 60-year-old female with recently admitted and discharged on the , after being managed for hypoxic respiratory failure secondary to COVID-19 pneumonia, returns on this admission with increased altered mental status. # toxic/metabolic encephalopathy patient diagnosed to have Klebsiella pneumonia UTI ESBL positive on IV meropenem will be discharged to rehab facility on IV ertapenem to finish the course of antibiotic for 10 more days ending on 02/06/21, since patient was on multiple psychiatric medication it was felt that confusion is contributed by polypharmacy Klonopin has also been discontinued, may resume Klonopin low-dose if noted to have anxiety or restlessness # urinary retention, diagnosed during recent hospitalization with COVID-19 infection, Valencia removed and patient voiding with no difficulty. # constipation resolved continue stool softener. # acute on chronic respiratory failure with hypoxia, resolved, patient recently diagnosed to have COVID-19 and finished a course of Decadron, chest x-rays shows persistent bilateral infiltrate, Likely related to recent COVID-19 infection, continue cough medication, currently on baseline 2-3 L of oxygen, recommend out of bed to chair and incentive spirometery, continue home inhalers # bipolar disorder continue mood stabilizers, hold benzo # diabetes mellitus blood sugars stable continue home medication and diabetic diet # disposition to rehab after mid line placed for IV antibiotic.
--- NOTE | 2021-01-27 15:27 | MHC.CM.PN ---
Scheduled dc for today will be delayed until tomorrow; Patient has not yet gotten her midline (needed for LTC IV ABT at SNF). CM will follow up tomorrow.
[2021-01-27 15:49] VITALS: BP 107/67; PULSE 98; RESP 16; TEMP 36; O2SAT 99
[2021-01-27 16:25] LABS: Glucose, Whole Blood 81 mg/dL (60-115)
[2021-01-27 19:52] VITALS: BP 120/70; PULSE 100; RESP 16; TEMP 36.3; O2SAT 95
[2021-01-27 21:19] LABS: Glucose, Whole Blood 78 mg/dL (60-115)
[2021-01-27] MEDS: Amitriptyline HCl 50 MG TABLET 100 MG PO (22:36)
[2021-01-27] MEDS: Montelukast Sodium 10 MG TABLET PO (22:36)
[2021-01-28] VITALS: BP 110/63; PULSE 96; RESP 18; TEMP 36.8; O2SAT 96
[2021-01-28 03:48] VITALS: BP 110/52; PULSE 76; RESP 18; TEMP 36.6; O2SAT 96
[2021-01-28] MEDS: guaiFENesin DM 200/20/10 ML 10 ML SYRUP PO ×2 (06:23→09:57)
[2021-01-28] MEDS: Levothyroxine Sodium 50 MCG TABLET PO (06:23)
[2021-01-28] MEDS: Omeprazole 20 MG CAPSULE.DR PO (06:23)
[2021-01-28 07:04] VITALS: BP 103/63; PULSE 95; RESP 18; TEMP 36; O2SAT 94
[2021-01-28 07:18] LABS: Glucose, Whole Blood 119 mg/dL (60-115)
[2021-01-28] MEDS: lamoTRIgine 100 MG TABLET 200 MG PO (08:34)
[2021-01-28] MEDS: polyethylene glycoL 3350 17 GM POWD.PACK PO (08:34)
[2021-01-28] MEDS: Gabapentin 400 MG CAPSULE PO (08:34)
[2021-01-28] MEDS: Heparin Sodium,Porcine 5,000 UNIT/ML VIAL 5000 UNIT SUBCUT (08:34)
[2021-01-28] MEDS: Cholecalciferol (Vitamin D3) 25 MCG TABLET PO (08:35)
[2021-01-28] MEDS: Docusate Sodium 100 MG CAPSULE PO (08:35)
[2021-01-28] MEDS: Ascorbic Acid 250 MG TABLET PO (08:35)
[2021-01-28] MEDS: buPROPion HCl XL 300 MG TAB.ER.24H PO (08:35)
[2021-01-28] MEDS: 0.9 % Sodium Chloride Flush 3 ML SYRINGE IVFLUSH (08:35)
--- NOTE | 2021-01-28 09:23 | MHC.CM.PN ---
Patient is receiving her midline.Patient will dc to [facility] today at 2 PM, [facility].Patient aware and in agreement with the dc plan.
--- NOTE | 2021-01-28 10:11 | HO.MIDLINE_ITS ---
PICC Line Insertion MIDLINE INSERTION Diagnosis: UTI Indication: PHOTO TECHNOLOGIST IV ANTIBIOTICS Pertinent Labs: REVIEWED Technique: Using sterile technique including cap and mask, sterile gown, glove and drape, the RIGHT arm was prepped and draped in the usual sterile fashion of full barrier technique with CHG. Using ultrasound guidance, CEPHALIC vein access was obtained IN SINGLE ATTEMPT BY THIS RN; PRIOR TO INSERTION THERE WAS SMALL AREA OF BRUISING TO RUE FROM PRIOR IV ACCESS ATTEMPTS PER PT. A SINGLE LUMEN, NON-PASV, (20G x 8 CM) MIDLINE was positioned. The procedure was performed in 272. Ultrasound was used to document vein patency and for needle entry. A formal ultrasound picture was recorded. Vascular Orthopedic Technician has released the line for use and it is currently dressed with a StatLock, Tegaderm, and CHG disc. Verification has been performed for blood return and line patency. Arm Circumference: 47 CM Equipment: [employer] POWERGLIDE PRO MIDLINE Catheter Type: SINGLE LUMEN, NON-PASV, [id number] Lot #: [id number]
[2021-01-28 10:56] VITALS: BP 104/60; PULSE 101; RESP 20; TEMP 36; O2SAT 97
[2021-01-28 11:05] LABS: Glucose, Whole Blood 144 mg/dL (60-115)
--- NOTE | 2021-01-28 11:45 | P.DS_ITS ---
DS: Providers Provider Date of Service: 01/28/21 Date of admission: 01/21/21 22:36 Primary care physician: Farideh Marquez MD Consults: 01/24/21 13:12 Consult to Infectious Diseases Routine Consulting Provider: Desire Salinas Reason for consultation: esbl pos uti 01/24/21 13:13 Consult to Infectious Diseases Routine Consulting Provider: Desire Salinas Reason for consultation: uti 01/25/21 16:43 Consult to Infectious Diseases Routine Consulting Provider: Desire Salinas Reason for consultation: uti DS: Diagnosis Discharge Diagnosis (1) Encephalopathy: Status: Acute (2) UTI (urinary tract infection): Status: Acute (3) Urinary retention: Status: Acute (4) Acute and chronic respiratory failure with hypoxia: Status: Acute (5) Diabetes: Status: Acute (6) Bipolar 1 disorder: Status: Acute DS: Medications Discharge Medications Home Medications: Home Medications Medication Instructions Recorded Confirmed oxygen-air delivery systems #1 08/24/20 01/16/21 linaclotide 145 mcg capsule 145 mcg PO DAILY 12/17/20 01/21/21 liraglutide 0.6 mg/0.1 mL (18 mg/3 0.6 mg SUBCUT DAILY 12/17/20 01/21/21 mL) subcutaneous pen injector Breo Ellipta 1 puff INHALATION DAILY 01/09/21 01/21/21 amitriptyline 100 mg PO BEDTIME 01/09/21 01/21/21 lubiprostone [Amitiza] 24 mcg PO BID 01/09/21 01/21/21 albuterol sulfate 2 puff INHALATION Q4H PRN 01/14/21 01/21/21 ascorbic acid (vitamin C) 250 mg PO DAILY 01/14/21 01/21/21 bisacodyl 10 mg LA DAILY PRN 01/14/21 01/21/21 bupropion HCl 300 mg PO DAILY 01/14/21 01/21/21 cholecalciferol (vitamin D3) 25 mcg PO DAILY 01/14/21 01/21/21 [Vitamin D3] levothyroxine 50 mcg PO DAILY@0630 01/14/21 01/21/21 montelukast [Singulair] 10 mg PO BEDTIME 01/14/21 01/21/21 naloxone 4 mg INTRANASAL Q3M PRN 01/14/21 01/21/21 ondansetron 4 mg PO Q6H PRN 01/14/21 01/21/21 tramadol 25 mg PO Q6H PRN 01/14/21 01/21/21 zolpidem 5 mg PO BEDTIME PRN 01/14/21 01/21/21 Systane Complete 1 drp OPHTHALMIC (EYE) Q4H PRN 01/21/21 01/21/21 metaxalone 800 mg PO TID PRN 01/21/21 01/21/21 Previous Rx's Medication Instructions Recorded budesonide 0.5 mg/2 mL suspension 0.5 mg INHALATION DAILY 30 Days 08/25/20 for nebulization #60 ml lamotrigine 200 mg tablet 200 mg PO BID 30 Days #60 tab 08/26/20 pantoprazole 40 mg tablet,delayed 40 mg PO BID 90 Days #180 tab 08/26/20 release blood-glucose meter #1 ea 09/22/20 shower seat #1 ea 11/23/20 wheelchair #1 ea 11/23/20 gabapentin 400 mg capsule 400 mg PO BID 30 Days #60 cap 11/26/20 miscellaneous medical supply #1 ea 12/22/20 dextromethorphan-guaifenesin 10 ml PO Q6H #237 ml 01/27/21 ertapenem 1 g IV DAILY #10 ea 01/27/21 clonazepam [Klonopin] 1 mg PO BEDTIME #10 tab 01/28/21 DS: Summary Hospital Course Hospital Course: History of presenting illness Chief Complaint: Altered mental status 60-year-old female with past medical history of acute on chronic respiratory failure with a baseline of 3 L of oxygen, asthma/COPD, bipolar, depression, diabetes, hypothyroidism, lupus, who was recently discharged from the hospital on 01/19 to [facility] after being managed for acute on chronic hypoxic respiratory failure secondary to COVID-19 pneumonia. She was treated with IV Decadron. With improvement of symptoms. She was able to be weaned down oxygen, to 4-5 L of O2 with minimal symptoms. At that hospital admission patient had urinary retention and was discharged with East catheter. With a plan for a void trial as soon as patient more ambulatory. She is sent back from [facility] today for change in mental status and recurrent falls. Patient herself is alert and oriented, but at times confused, she reports shortness of breath and cough, but tells me that she uses about 3 L of oxygen at home. She has no fever or chills, she denies any abdominal pain nausea or vomiting, denies falling, keeps talking about her sister, and wanting to see her sister otherwise she will leave, keeps asking for coffee. She otherwise denies any urinary symptoms since he has a East catheter in place, no lower extremity edema. On arrival to the ED patient has a temp of 97.9?, heart rate of 95, respiratory rate of 15, blood pressure 98/59, satting 94% on 4 L Labs are significant for WBC count of 10.6, hemoglobin of 11.8, ABG that showed pH of 7.43, CO2 of 46, sodium 141, potassium 4.1, BUN of 21, creatinine of 0.97, AST 38, ALT 47, UA that is positive for nitrites, leukocyte Estrace, WBC, bacteria, Head CT shows no acute intracranial process, minimal inflammatory changes Hospital course 60-year-old female with recently admitted and discharged on the , after being managed for hypoxic respiratory failure secondary to COVID-19 pneumonia, returns on this admission with increased altered mental status. # toxic/metabolic encephalopathy patient diagnosed to have Klebsiella pneumonia UTI ESBL positive therefore patient placed on IV ertapenem and is being discharged to rehab facility To finish the course of antibiotic will need 10 more days of IV ertapenem ending on 02/06/21, since patient was on multiple psychiatric medication Klonopin was discontinued Since it was also felt to be contributing to confusion, now patient has been started on low-dose Klonopin 1 mg by mouth daily at bedtime, previously was on Klonopin 2 mg at bedtime. # urinary retention, diagnosed during recent hospitalization with COVID-19 infection, East removed and patient voiding with no difficulty. # constipation resolved continue stool softener. # acute on chronic respiratory failure with hypoxia, resolved, patient recently diagnosed to have COVID-19 and finished a course of Decadron, chest x-rays shows persistent bilateral infiltrate, Likely related to recent COVID-19 infection, continue cough medication, currently on baseline 2-3 L of oxygen, recommend out of bed to chair and incentive spirometery # bipolar disorder continue mood stabilizers, initially Klonopin was discontinued due to confusion and lethargy but upon discharge placed on low-dose klonopin 1 mg at bedtime. # diabetes mellitus blood sugars stable continue home medication and diabetic diet. # patient being discharged to rehab for less than 30 days. Time Spent with Patient Time attestation: Total time spent providing and/or coordinating discharge services: Discharge coordination time: Greater than 30 minutes Physical Exam Vital Signs: Vital Signs: Last Vital Signs Temp 96.8 F 01/28/21 10:56 Pulse 101 H 01/28/21 10:56 Resp 20 01/28/21 10:56 BP 104/60 01/28/21 10:56 Pulse Ox 97 01/28/21 10:56 Body Mass Index 46.8 DS: Data Data Completed and Pending Labs on day of discharge: Laboratory Results - last 24 hr 01/27/21 01/27/21 01/27/21 11:45 13:00 16:21 POC Glucose 81 COVID-19 ([facility]) Cancelled Negative COVID-19 Clin Com Cancelled See Note 01/27/21 01/28/21 01/28/21 20:58 07:03 10:56 POC Glucose 78 119 H 144 H COVID-19 ([facility]) COVID-19 Clin Com Discharge Plan Discharge Patient Disposition: Xfer SNF Referrals: [facility] [Outside] Farideh Starr MD [Primary Care Provider] - (SNF-) Discharge Medications: New ertapenem 1 gram recon soln 1 g IV DAILY Qty: 10 RF: 0 dextromethorphan-guaifenesin 10-100 mg/5 mL Syrup 10 ml PO Q6H Qty: 237 RF: 0 clonazepam [Klonopin] 1 mg tablet 1 mg PO BEDTIME Qty: 10 RF: 0 Continued budesonide [Pulmicort] 0.5 mg/2 mL suspension for nebulization 0.5 mg inhalation DAILY 30 Days Qty: 60 RF: 11 lamotrigine [Lamictal] 200 mg tablet 200 mg PO BID 30 Days Qty: 60 RF: 11 pantoprazole [Protonix] 40 mg tablet,delayed release (DR/EC) 40 mg PO BID 90 Days Qty: 180 RF: 3 gabapentin 400 mg capsule 400 mg PO BID 30 Days Qty: 60 RF: 3 albuterol sulfate 90 mcg/actuation HFA aerosol inhaler 2 puff inhalation Q4H PRN (Reason: Wheezing) RF: 0 zolpidem 5 mg Tablet 5 mg PO BEDTIME PRN (Reason: Sleep) RF: 0 ascorbic acid (vitamin C) 250 mg Tablet 250 mg PO DAILY RF: 0 bisacodyl 10 mg Suppository 10 mg LA DAILY PRN (Reason: Constipation) RF: 0 bupropion HCl 300 mg tablet extended release 24 hr 300 mg PO DAILY RF: 0 levothyroxine 50 mcg Tablet 50 mcg PO DAILY@0630 RF: 0 naloxone 4 mg/actuation [facility],Non-Aerosol 4 mg INTRANASAL Q3M PRN (Reason: UNRESPONSIVE) RF: 0 montelukast [Singulair] 10 mg tablet 10 mg PO BEDTIME RF: 0 tramadol 50 mg Tablet 25 mg PO Q6H PRN (Reason: Moderate Pain (Scale Score 5-6)) RF: 0 cholecalciferol (vitamin D3) [Vitamin D3] 25 mcg (1,000 unit) Capsule 25 mcg PO DAILY RF: 0 ondansetron 4 mg Tablet,Disintegrating 4 mg PO Q6H PRN (Reason: Nausea And Vomiting) RF: 0 amitriptyline 100 mg tablet 100 mg PO BEDTIME RF: 0 lubiprostone [Amitiza] 24 mcg capsule 24 mcg PO BID RF: 0 Breo Ellipta 200-25 mcg/dose blister with device 1 puff inhalation DAILY RF: 0 metaxalone 800 mg Tablet 800 mg PO TID PRN (Reason: Muscle Pain) RF: 0 Systane Complete 0.6 % drops 1 drp ophthalmic (eye) Q4H PRN (Reason: dry eye(s)) RF: 0 liraglutide 0.6 mg/0.1 mL (18 mg/3 mL) pen injector 0.6 mg subcut DAILY RF: 0 linaclotide 145 mcg capsule 145 mcg PO DAILY RF: 0 Discontinued clonazepam 2 mg tablet 2 mg PO BEDTIME RF: 0 dexamethasone [Decadron] 6 mg tablet 6 mg PO DAILY Qty: 5 RF: 0 Mucinex DM 30-600 mg Tablet Extended Release 12 Hr 1 tab PO Q12H RF: 0 No Action (DME) wheelchair See Rx Instructions .Route .MEDSUPPLY Qty: 1 RF: 0 (DME) shower seat See Rx Instructions .Route .MEDSUPPLY Qty: 1 RF: 0 (DME) miscellaneous medical supply Misc See Rx Instructions .ROUTE .MEDSUPPLY Qty: 1 RF: 0 (DME) oxygen-air delivery systems Device See Rx Instructions .ROUTE .MEDSUPPLY Qty: 1 RF: 0 (DME) blood-glucose meter [FreeStyle [place] Lite] Kit See Rx Instructions .ROUTE .MEDSUPPLY Qty: 1 RF: 0 Discharge Orders: Discharge Order (Routine); Ordered 01/27/21 Ordered By: Radha Salomon Diet: diabetic diet Activity on Discharge: As tolerated Stand Alone Forms: Patient Portal Discharge page Care Plan Goals: KLONOPIN initially DISCONTINUED PATIENT NOTED TO HAVE NO ANXIETY, being discharged on Klonopin 1 mg by mouth daily to avoid withdrawal symptoms Patient has a midline will require heparin flushes as per protocol. Health Concerns: ENCEPHALOPATHY/UTI, CONFUSION RESOLVED, EAST CATHETER REMOVED PATIENT VOIDING WITH NO DIFFICULTY Plan of Treatment: PATIENT FOLLOW-UP WITH PRIMARY CARE PHYSICIAN
== END 2021-01-28 14:21 | disposition skilled nursing facility (03) | DRG 698 ==
LOC: HO.ED 20:11 → HO.EDOVER 22:41 → HO.IMC 23:43
PROVIDERS: Admitting Provider Internal Medicine; Emergency Provider Emergency Medicine; PCP Internal Medicine; Visit Provider Hospitalist
DX: T83.511A Infection and inflammatory reaction due to indwelling urethral catheter, initial encounter (principal); G92 Toxic encephalopathy; J96.21 Acute and chronic respiratory failure with hypoxia; F05 Delirium due to known physiological condition; Z16.12 Extended spectrum beta lactamase (ESBL) resistance; N39.0 Urinary tract infection, site not specified; K59.00 Constipation, unspecified; Z20.822 Contact with and (suspected) exposure to COVID-19; Z99.81 Dependence on supplemental oxygen; B96.1 Klebsiella pneumoniae [K. pneumoniae] as the cause of diseases classified elsewhere; F31.9 Bipolar disorder, unspecified; R33.9 Retention of urine, unspecified; E03.9 Hypothyroidism, unspecified; E11.9 Type 2 diabetes mellitus without complications; Z86.16 Personal history of COVID-19; Z79.891 Long term (current) use of opiate analgesic; Z79.899 Other long term (current) drug therapy
CPT/HCPCS: 36410; 36415; 70450; 71045; 80048; 80076; 81001; 81003; 82947; 83605; 83690; 83880; 84443; 84484; 85007; 85025; 85027; 87040; 87086; 87088; 87186; 87635; 93005; 96365; 96367; 97162; 99285; J0696; J1335; J2185

== ENCOUNTER 2021-02-08 20:52 | Emergency (ER) | payer OTHER, SELFPAY ==
--- NOTE | ~2021-02-08 | CT_ITS ---
EXAMINATION: CT HEAD WITHOUT CONTRAST CLINICAL INFORMATION: Headache status post fall. Rule out intracranial abnormality. COMPARISON: 01/21/[address] scan. TECHNIQUE: Contiguous axial imaging was performed from the skull base to vertex without intravenous administration of contrast. Coronal and sagittal reformatted images were obtained. This CT examination was performed using dose optimization techniques as appropriate, variously including the following: *Automated exposure control *Adjustment of mA and/or kV according to patient size (this includes techniques or standardized protocols for targeted exams where dose is matched to indication/reason for exam; i.e. extremities or head) *Use of iterative reconstruction technique DLP: 836 mGy-cm FINDINGS: There is no evidence of acute intracranial hemorrhage or territorial infarction. No abnormal mass effect or midline shift is seen. Romero to white matter differentiation is well preserved. No extra-axial fluid collections are identified. The ventricles are normal in size. There is no abnormal attenuation within the brain parenchyma. The osseous structures and soft tissues are normal. The mastoid air cells and visualized portions of the paranasal sinuses are well aerated. CT/CT head/brain wo con IMPRESSION: No acute intracranial pathology.
--- NOTE | ~2021-02-08 | XR_ITS ---
EXAMINATION: XR HIP, LEFT CLINICAL INFORMATION: Fall COMPARISON: 05/07/2020 TECHNIQUE: Frontal view of the pelvis with coned frontal and frog-leg lateral views of the left hip. FINDINGS: Both femoral heads are well-seated within their respected acetabula. I do not appreciate any cortical disruption or trabecular irregularity to suggest acute fracture or dislocation. Mild degenerative changes in the hips and pubic symphysis. Degenerative changes in the visualized lower lumbar spine. Bowel gas pattern unremarkable. XR/XR hip LT w PEL1V IMPRESSION: No acute fracture or dislocation seen. Degenerative changes noted.
--- NOTE | ~2021-02-08 | XR_ITS ---
EXAMINATION: PORTABLE CHEST 1 VIEW CLINICAL INFORMATION: Cough . COMPARISON: 01/21/2021. TECHNIQUE: Portable frontal view of the chest was obtained. FINDINGS: Lungs well-expanded with persistent patchy bilateral airspace disease seen left more so than right. This has shown some improvement from the prior study. No significant effusion, edema, or pneumothorax. Cardiothymic silhouette within normal limits for this degree of hypoexpansion. Degenerative changes in the spine and shoulders. XR/XR chest 1V IMPRESSION: Persistent but improving patchy bilateral left greater than right airspace disease again noted.
[2021-02-08 21:03] VITALS: BP 133/88; PULSE 100; O2SAT 98
[2021-02-08 21:04] VITALS: BP 111/75; PULSE 97; RESP 18; TEMP 36.4; O2SAT 99
[2021-02-08 21:50] VITALS: BMI 45.3
--- NOTE | 2021-02-08 22:18 | ED_ITS ---
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 The patient is alert to person and place as well as situation but states that the date is 1959. Although she has multiple complaints which spanned arm pain, abdominal discomfort, pelvis pain the details of these complaints change on asking a question in a different way. A mexican food maker was utilized in an attempt to evaluate the patient. As per collateral information provided by that family member there are concerns that the patient has been having memory problems for over the past month. Related Data Home Medications Medication Instructions Recorded Confirmed oxygen-air delivery systems #1 08/24/20 01/16/21 linaclotide 145 mcg capsule 145 mcg PO DAILY 12/17/20 01/21/21 liraglutide 0.6 mg/0.1 mL (18 mg/3 0.6 mg SUBCUT DAILY 12/17/20 01/21/21 mL) subcutaneous pen injector Breo Ellipta 1 puff INHALATION DAILY 01/09/21 01/21/21 amitriptyline 100 mg PO BEDTIME 01/09/21 01/21/21 lubiprostone [Amitiza] 24 mcg PO BID 01/09/21 01/21/21 albuterol sulfate 2 puff INHALATION Q4H PRN 01/14/21 01/21/21 ascorbic acid (vitamin C) 250 mg PO DAILY 01/14/21 01/21/21 bisacodyl 10 mg MT DAILY PRN 01/14/21 01/21/21 bupropion HCl 300 mg PO DAILY 01/14/21 01/21/21 cholecalciferol (vitamin D3) 25 mcg PO DAILY 01/14/21 01/21/21 [Vitamin D3] levothyroxine 50 mcg PO DAILY@0630 01/14/21 01/21/21 montelukast [Singulair] 10 mg PO BEDTIME 01/14/21 01/21/21 naloxone 4 mg INTRANASAL Q3M PRN 01/14/21 01/21/21 ondansetron 4 mg PO Q6H PRN 01/14/21 01/21/21 tramadol 25 mg PO Q6H PRN 01/14/21 01/21/21 zolpidem 5 mg PO BEDTIME PRN 01/14/21 01/21/21 Systane Complete 1 drp OPHTHALMIC (EYE) Q4H PRN 01/21/21 01/21/21 metaxalone 800 mg PO TID PRN 01/21/21 01/21/21 Previous Rx's Medication Instructions Recorded budesonide 0.5 mg/2 mL suspension 0.5 mg INHALATION DAILY 30 Days 08/25/20 for nebulization #60 ml lamotrigine 200 mg tablet 200 mg PO BID 30 Days #60 tab 08/26/20 pantoprazole 40 mg tablet,delayed 40 mg PO BID 90 Days #180 tab 08/26/20 release blood-glucose meter #1 ea 09/22/20 shower seat #1 ea 11/23/20 wheelchair #1 ea 11/23/20 gabapentin 400 mg capsule 400 mg PO BID 30 Days #60 cap 11/26/20 miscellaneous medical supply #1 ea 12/22/20 dextromethorphan-guaifenesin 10 ml PO Q6H #237 ml 01/27/21 ertapenem 1 g IV DAILY #10 ea 01/27/21 clonazepam [Klonopin] 1 mg PO BEDTIME #10 tab 01/28/21 Allergies Allergy/AdvReac Type Severity Reaction Status Date / Time unknown analgesia given Allergy Severe rash Uncoded 12/17/20 14:18 antihi Review of Systems Review of Systems: Pertinent positives and negatives as stated in HPI 10 point review of systems otherwise negative. [facility] Past Medical History Source: nursing notes reviewed Medical History Acute and chronic respiratory failure with hypoxia Asthma-COPD overlap syndrome Bipolar 1 disorder COPD (chronic obstructive pulmonary disease) COVID-19 Depression with anxiety Diabetes Eosinophilia GERD (gastroesophageal reflux disease) Hemangioma Hypothyroidism Hypovitaminosis D Insomnia Lumbar degenerative disc disease Lupus Lupus (systemic lupus erythematosus) Neck mass Obesity Oxygen dependent Polyarthralgia Recurrent UTI Severe asthma Tachycardia Trigger finger of right hand Urinary retention Surgical History History of carpal tunnel release History of section History of colonoscopy History of cystocele History of hysterectomy History of shoulder surgery History of tonsillectomy Family History Family History Father No problems noted. Mother No problems noted. 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 GENERAL: Well developed, well nourished, in no acute distress. HEAD: Normocephalic/atraumatic, EYES: PERRLA, EOMI OROPHARYNX: no oral lesions noted, posterior pharynx clear NECK: Supple, no adenopathy LUNGS: Normal breath sounds. SpO2<99> CARDIOVASCULAR: Regular rate and rhythm without noted murmurs ABDOMEN: Soft, non-tender, non-distended with bowel sounds. NEUROLOGIC: Alert and oriented x 2. Strength and sensation to light touch were grossly intact x 4. Course Course Course Narrative: 60-year-old female with history and clinical presentation suspicious for progressive dementia but will rule out delirium although patient is noted to be AVSS. Review of all investigations is negative for any acute findings to suggest infection, anemia, arrhythmia, hypercapnia that would further explain patient's forgetfulness. This all points towards likely dementia as patient thinks that the year is 1960 which is the year that she was born. Patient is otherwise medically stable for further evaluation of her dementia as there have been no underlying causes of a delirium noted. There are no focal deficits and CT of the head is without acute findings. Medical Decision Making Lab Data Result diagrams: 02/08/21 22:34 02/08/21 22:34 Labs: Lab Results 04/10/1902/08/21 02/08/21 Range/Units 22:34 22:34 22:34 WBC 5.4 (4.8-10.8) X10*3/uL RBC 4.12 L D (4.20-5.50) X10*6/uL Hgb 11.8 L D (12.0-16.0) g/dl Hct 38.8 D (37-47) % MCV 94.2 (80-98) fL MCH 28.6 (27.0-33.0) pg MCHC 30.4 L (31.0-35.0) g/dl RDW 16.9 H (11.0-16.0) % Plt Count 421 H (160-400) X10*3/uL MPV 9.3 L (9.4-12.3) fL Immature Gran % (Auto) 1.7 H (0.0-0.4) % Neut % (Auto) 65.0 (45-73) % Lymph % (Auto) 22.1 (20-40) % [place] % (Auto) 11.0 (2-11) % Eos % (Auto) 0.0 (0-4) % Baso % (Auto) 0.2 (0-2) % Lymph # (Auto) 1.2 (1.2-4.9) X10*3/uL [place] # (Auto) 0.6 (0.1-1.2) X10*3/uL Eos # (Auto) 0.0 (0.0-0.4) X10*3/uL Baso # (Auto) 0.0 (0.0-0.2) X10*3/uL Abs Immat Gran (auto) 0.09 H (0.00-0.03) X10*3/uL Absolute Neuts (auto) 3.5 (2.0-8.3) X10*3/uL Absolute Nucleated RBC 0.000 (0.0-0.012) X10*3/uL Nucleated RBC % (auto) 0.0 (0.0-0.2) /100WBC VBG pH (7.32-7.43) VBG pCO2 mmHg VBG pO2 mmHg VBG HCO3 (22-26) mmol/L VBG O2 Saturation % VBG Base Excess mmol/L Sodium Cancelled Potassium Cancelled Chloride Cancelled Carbon Dioxide Cancelled Anion Gap Cancelled BUN Cancelled Creatinine Cancelled Estim Creat Clear Calc Cancelled Estimated GFR Cancelled Random Glucose Cancelled Calcium Cancelled Magnesium (1.6-2.6) mg/dL Total Bilirubin Cancelled AST Cancelled ALT Cancelled Alkaline Phosphatase Cancelled B-Natriuretic Peptide (<100) pg/mL Total Protein Cancelled Albumin Cancelled TSH Cancelled Urine Color Urine Appearance Urine pH (5.0-8.0) Ur Specific [place] (1.005-1.025) Urine Protein (NEG-TRACE) MG/DL Urine Glucose (UA) (NEG) MG/DL Urine Ketones (NEG) MG/DL Urine Blood (NEG) Urine Nitrite (NEG) Ur Leukocyte Esterase (NEG) Urine RBC (0) /HPF Urine WBC (0-4) /HPF Ur Squamous Epith Cells /LPF Ur Renal Epithelial Cell /LPF Urine Bacteria /LPF Urine Mucus /LPF Urine Yeast /HPF COVID-19 (ABBIE) Negative (Negative) COVID-19 Clin Com See Note 02/08/21 02/08/21 02/08/21 Range/Units 22:34 22:34 22:40 WBC (4.8-10.8) X10*3/uL RBC (4.20-5.50) X10*6/uL Hgb (12.0-16.0) g/dl Hct (37-47) % MCV (80-98) fL MCH (27.0-33.0) pg MCHC (31.0-35.0) g/dl RDW (11.0-16.0) % Plt Count (160-400) X10*3/uL MPV (9.4-12.3) fL Immature Gran % (Auto) (0.0-0.4) % Neut % (Auto) (45-73) % Lymph % (Auto) (20-40) % [place] % (Auto) (2-11) % Eos % (Auto) (0-4) % Baso % (Auto) (0-2) % Lymph # (Auto) (1.2-4.9) X10*3/uL [place] # (Auto) (0.1-1.2) X10*3/uL Eos # (Auto) (0.0-0.4) X10*3/uL Baso # (Auto) (0.0-0.2) X10*3/uL Abs Immat Gran (auto) (0.00-0.03) X10*3/uL Absolute Neuts (auto) (2.0-8.3) X10*3/uL Absolute Nucleated RBC (0.0-0.012) X10*3/uL Nucleated RBC % (auto) (0.0-0.2) /100WBC VBG pH 7.46 H (7.32-7.43) VBG pCO2 37 mmHg VBG pO2 89 mmHg VBG HCO3 26 (22-26) mmol/L VBG O2 Saturation 98.0 % VBG Base Excess 3.1 mmol/L Sodium 140 Potassium 4.4 Chloride 104 Carbon Dioxide 22 Anion Gap 18 BUN 6 L Creatinine 0.87 Estim Creat Clear Calc 76.4 Estimated GFR > 60 Random Glucose 93 Calcium 9.1 D Magnesium 2.1 (1.6-2.6) mg/dL Total Bilirubin 0.3 AST 36 H ALT 21 Alkaline Phosphatase 100 D B-Natriuretic Peptide < 10 (<100) pg/mL Total Protein 7.3 Albumin 3.6 TSH Urine Color Urine Appearance Urine pH (5.0-8.0) Ur Specific [place] (1.005-1.025) Urine Protein (NEG-TRACE) MG/DL Urine Glucose (UA) (NEG) MG/DL Urine Ketones (NEG) MG/DL Urine Blood (NEG) Urine Nitrite (NEG) Ur Leukocyte Esterase (NEG) Urine RBC (0) /HPF Urine WBC (0-4) /HPF Ur Squamous Epith Cells /LPF Ur Renal Epithelial Cell /LPF Urine Bacteria /LPF Urine Mucus /LPF Urine Yeast /HPF COVID-19 (ABBIE) (Negative) COVID-19 Clin Com 02/09/21 Range/Units 00:29 WBC (4.8-10.8) X10*3/uL RBC (4.20-5.50) X10*6/uL Hgb (12.0-16.0) g/dl Hct (37-47) % MCV (80-98) fL MCH (27.0-33.0) pg MCHC (31.0-35.0) g/dl RDW (11.0-16.0) % Plt Count (160-400) X10*3/uL MPV (9.4-12.3) fL Immature Gran % (Auto) (0.0-0.4) % Neut % (Auto) (45-73) % Lymph % (Auto) (20-40) % [place] % (Auto) (2-11) % Eos % (Auto) (0-4) % Baso % (Auto) (0-2) % Lymph # (Auto) (1.2-4.9) X10*3/uL [place] # (Auto) (0.1-1.2) X10*3/uL Eos # (Auto) (0.0-0.4) X10*3/uL Baso # (Auto) (0.0-0.2) X10*3/uL Abs Immat Gran (auto) (0.00-0.03) X10*3/uL Absolute Neuts (auto) (2.0-8.3) X10*3/uL Absolute Nucleated RBC (0.0-0.012) X10*3/uL Nucleated RBC % (auto) (0.0-0.2) /100WBC VBG pH (7.32-7.43) VBG pCO2 mmHg VBG pO2 mmHg VBG HCO3 (22-26) mmol/L VBG O2 Saturation % VBG Base Excess mmol/L Sodium Potassium Chloride Carbon Dioxide Anion Gap BUN Creatinine Estim Creat Clear Calc Estimated GFR Random Glucose Calcium Magnesium (1.6-2.6) mg/dL Total Bilirubin AST ALT Alkaline Phosphatase B-Natriuretic Peptide (<100) pg/mL Total Protein Albumin TSH Urine Color YELLOW Urine Appearance HAZY Urine pH 6.5 (5.0-8.0) Ur Specific [place] 1.010 (1.005-1.025) Urine Protein NEG (NEG-TRACE) MG/DL Urine Glucose (UA) NEG (NEG) MG/DL Urine Ketones NEG (NEG) MG/DL Urine Blood NEG (NEG) Urine Nitrite NEG (NEG) Ur Leukocyte Esterase 2+ H (NEG) Urine RBC 1-4 (0) /HPF Urine WBC 15-29 H (0-4) /HPF Ur Squamous Epith Cells 3+ /LPF Ur Renal Epithelial Cell TRACE /LPF Urine Bacteria 1+ /LPF Urine Mucus TRACE /LPF Urine Yeast TRACE /HPF COVID-19 (ABBIE) (Negative) COVID-19 Clin Com ECG Data Attestation: I personally reviewed and interpreted this ECG as follows: Prior ECG tracings: available for review (01/21/21 no acute changes on comparison) Interpretation: Sinus tachycardia, HR -101, no evidence of acute ischemia, MT/QRS/QTC are within normal limits. Discharge Plan Discharge Clinical Impression: Dementia Qualifiers: Dementia type: unspecified type Dementia behavioral disturbance: with behavioral disturbance Qualified Code(s): F03.91 - Unspecified dementia with behavioral disturbance Patient Disposition: Xfer SNF Instructions: Dementia (ED) Additional Instructions: 1. Resume all home medications as prescribed. 2. Patient will likely need further evaluation for dementia as an outpatient. Do not hesitate to return to the emergency department should you experience any acute worsening of symptoms. Prescriptions: No Action budesonide [Pulmicort] 0.5 mg/2 mL suspension for nebulization 0.5 mg inhalation DAILY 30 Days Qty: 60 RF: 11 lamotrigine [Lamictal] 200 mg tablet 200 mg PO BID 30 Days Qty: 60 RF: 11 pantoprazole [Protonix] 40 mg tablet,delayed release (DR/EC) 40 mg PO BID 90 Days Qty: 180 RF: 3 (DME) wheelchair See Rx Instructions .Route .MEDSUPPLY Qty: 1 RF: 0 (DME) shower seat See Rx Instructions .Route .MEDSUPPLY Qty: 1 RF: 0 gabapentin 400 mg capsule 400 mg PO BID 30 Days Qty: 60 RF: 3 (DME) miscellaneous medical supply Misc See Rx Instructions .ROUTE .MEDSUPPLY Qty: 1 RF: 0 albuterol sulfate 90 mcg/actuation HFA aerosol inhaler 2 puff inhalation Q4H PRN (Reason: Wheezing) RF: 0 zolpidem 5 mg Tablet 5 mg PO BEDTIME PRN (Reason: Sleep) RF: 0 ascorbic acid (vitamin C) 250 mg Tablet 250 mg PO DAILY RF: 0 bisacodyl 10 mg Suppository 10 mg MT DAILY PRN (Reason: Constipation) RF: 0 bupropion HCl 300 mg tablet extended release 24 hr 300 mg PO DAILY RF: 0 levothyroxine 50 mcg Tablet 50 mcg PO DAILY@0630 RF: 0 naloxone 4 mg/actuation [place],Non-Aerosol 4 mg INTRANASAL Q3M PRN (Reason: UNRESPONSIVE) RF: 0 montelukast [Singulair] 10 mg tablet 10 mg PO BEDTIME RF: 0 tramadol 50 mg Tablet 25 mg PO Q6H PRN (Reason: Moderate Pain (Scale Score 5-6)) RF: 0 cholecalciferol (vitamin D3) [Vitamin D3] 25 mcg (1,000 unit) Capsule 25 mcg PO DAILY RF: 0 ondansetron 4 mg Tablet,Disintegrating 4 mg PO Q6H PRN (Reason: Nausea And Vomiting) RF: 0 amitriptyline 100 mg tablet 100 mg PO BEDTIME RF: 0 lubiprostone [Amitiza] 24 mcg capsule 24 mcg PO BID RF: 0 Breo Ellipta 200-25 mcg/dose blister with device 1 puff inhalation DAILY RF: 0 metaxalone 800 mg Tablet 800 mg PO TID PRN (Reason: Muscle Pain) RF: 0 Systane Complete 0.6 % drops 1 drp ophthalmic (eye) Q4H PRN (Reason: dry eye(s)) RF: 0 ertapenem 1 gram recon soln 1 g IV DAILY Qty: 10 RF: 0 dextromethorphan-guaifenesin 10-100 mg/5 mL Syrup 10 ml PO Q6H Qty: 237 RF: 0 clonazepam [Klonopin] 1 mg tablet 1 mg PO BEDTIME Qty: 10 RF: 0 (DME) oxygen-air delivery systems Device See Rx Instructions .ROUTE .MEDSUPPLY Qty: 1 RF: 0 (DME) blood-glucose meter [FreeStyle [place] Lite] Kit See Rx Instructions .ROUTE .MEDSUPPLY Qty: 1 RF: 0 liraglutide 0.6 mg/0.1 mL (18 mg/3 mL) pen injector 0.6 mg subcut DAILY RF: 0 linaclotide 145 mcg capsule 145 mcg PO DAILY RF: 0 Referrals: Physician,Unknown [Primary Care Provider] - 2 days Print Language: Romanian
--- NOTE | 2021-02-08 22:19 | ECG_ITS ---
Test Reason : AMS Blood Pressure : / mmHG Vent. Rate : 101 BPM Atrial Rate : 101 BPM P-R Int : 168 ms QRS Dur : 096 ms QT Int : 370 ms P-R-T Axes : 032 010 023 degrees QTc Int : 479 ms Sinus tachycardia Incomplete right bundle branch block Abnormal EKG No significant changes when compared with the previous EKG of 21 january 2021 Referred By: Kadie Marks Electronically Signed By:MONIK JUAREZ
[2021-02-08 22:43] LABS: MANUAL DIFF FLAG NO
[2021-02-08 22:44] LABS: Basophils Percent Auto 0.2 % (0-2); Hematocrit 38.8 % (37-47); Hemoglobin 11.8 g/dl (12.0-16.0); Imm Gran Abs Auto 0.09 X10*3/uL (0.00-0.03); Imm Gran Pct Auto 1.7 % (0.0-0.4); Lymphocytes Absolute Auto 1.2 X10*3/uL (1.2-4.9); Lymphocytes Percent Auto 22.1 % (20-40); Mean Corpuscular HGB Conc 30.4 g/dl (31.0-35.0); Mean Corpuscular Hemoglobin 28.6 pg (27.0-33.0); Mean Corpuscular Volume 94.2 fL (80-98); Mean Platelet Volume 9.3 fL (9.4-12.3); Monocytes Absolute Auto 0.6 X10*3/uL (0.1-1.2); Neutrophils Absolute Auto 3.5 X10*3/uL (2.0-8.3); Platelet Count 421 X10*3/uL (160-400); Red Blood Count 4.12 X10*6/uL (4.20-5.50); Red Cell Distribution Width 16.9 % (11.0-16.0); White Blood Count 5.4 X10*3/uL (4.8-10.8)
[2021-02-08 22:47] LABS: VBG Base Excess 3.1 mmol/L; VBG HCO3 26 mmol/L (22-26); VBG pCO2 37 mmHg; VBG pH 7.46 (7.32-7.43); VBG pO2 89 mmHg
[2021-02-08 22:48] LABS: Venous Blood Gas Refer to POC result
[2021-02-08 23:09] VITALS: BP 113/75; PULSE 100; RESP 18; TEMP 36.4; O2SAT 99
[2021-02-08 23:32] LABS: COVID-19 Test Negative (Negative)
[2021-02-08 23:56] LABS: Magnesium 2.1 mg/dL (1.6-2.6)
[2021-02-08 23:59] LABS: B Type Natriuretic Peptide < 10 pg/mL (<100)
[2021-02-09 00:14] LABS: Alanine Aminotransferase 21 U/L (0-31); Albumin Level 3.6 g/dL (3.5-5.0); Alkaline Phosphatase 100 U/L (39-117); Anion Gap 18 (12-20); Aspartate Amino Transferase 36 U/L (5-31); Bilirubin Total 0.3 mg/dL (0.0-1.0); Blood Urea Nitrogen 6 mg/dL (9-16); Calcium 9.1 mg/dL (8.4-10.2); Carbon Dioxide 22 mmol/L (22-29); Chloride 104 mmol/L (96-108); Creatinine Clr Calc Pharmacy 76.4; Estimated Glomerular Filt Rate > 60; Glucose Random 93 mg/dL (60-115); Potassium 4.4 mmol/L (3.3-5.1); Sodium 140 mmol/L (135-145); Total Protein 7.3 g/dL (6.5-8.0)
[2021-02-09 00:36] LABS: Glucose Urine UA NEG (NEG); Leukocyte Esterase Urine 2+ (NEG); Nitrite Urine NEG (NEG); PH 6.5 (5.0-8.0); UACC Culture Trigger YES; Urine Blood NEG (NEG); Urine Ketones NEG (NEG); Urine Protein NEG (NEG-TRACE)
[2021-02-09 00:37] LABS: Appearance Urine HAZY; Color Urine YELLOW
[2021-02-09 00:50] LABS: Squamous Epithelial Cell Urine 3+ /LPF
[2021-02-09 00:51] LABS: Bacteria Urine 1+ /LPF; Mucus Urine TRACE /LPF; Renal Epithelial Cells Urine TRACE /LPF
[2021-02-09 02:00] VITALS: BP 114/72; PULSE 95; RESP 15; O2SAT 98
--- NOTE | 2021-02-09 03:00 | PC.NURSE ---
[facility] was called, report was given, awaiting EMS to transport home
== END 2021-02-09 03:56 | disposition skilled nursing facility (03) ==
PROVIDERS: Emergency Provider Student in an Organized Health Care Education/Training Program
DX: F03.91 Unspecified dementia, unspecified severity, with behavioral disturbance (principal); R00.0 Tachycardia, unspecified; Z20.822 Contact with and (suspected) exposure to COVID-19; E11.9 Type 2 diabetes mellitus without complications; K21.9 Gastro-esophageal reflux disease without esophagitis; J44.9 Chronic obstructive pulmonary disease, unspecified; L93.0 Discoid lupus erythematosus; Z99.81 Dependence on supplemental oxygen; Z87.440 Personal history of urinary (tract) infections; F17.210 Nicotine dependence, cigarettes, uncomplicated
CPT/HCPCS: 36415; 51701; 70450; 71045; 73502; 80053; 81001; 81003; 83735; 83880; 84443; 85025; 87086; 87635; 93005; 99284

== ENCOUNTER 2021-02-09 18:08 | Emergency (ER) | payer OTHER, SELFPAY ==
--- NOTE | ~2021-02-09 | XR_ITS ---
EXAMINATION: XR KNEE, RIGHT CLINICAL INFORMATION: Injury, pain COMPARISON: None TECHNIQUE: Four views of the right knee. FINDINGS: No fracture or dislocation seen. Moderate medial compartment joint space narrowing. There is tibial spine hypertrophy. No joint effusion. Nonspecific dermal calcifications. XR/XR knee RT 3V IMPRESSION: No acute osseous abnormality of the right knee. Degenerative changes.
--- NOTE | ~2021-02-09 | MR_ITS ---
MRI OF THE BRAIN WITHOUT IV CONTRAST INDICATION: Agitation/AMS/confusion COMPARISON: None. TECHNIQUE: Multiplanar multisequence MR imaging of the brain was obtained without IV contrast. FINDINGS: Study is limited by artifact from the patient's dental hardware. There is no hydrocephalus, extra-axial surface collection, or herniation. There is mild chronic microangiopathy. The major flow voids at the skull base are preserved. There is no acute infarct on diffusion-weighted imaging. There is no intracranial hemorrhage on the gradient recalled echo acquisition. The midline structures are normal. The cerebellar tonsils are normally positioned. The cerebellum and brainstem are normal. The craniocervical junction is normal. Osseous marrow signal intensity is homogenous. The visualized soft tissues are unremarkable. MR/MR head/brain wo con IMPRESSION: - No acute intracranial findings. Study is degraded by artifact from the patient's dental hardware. - There is mild chronic microangiopathy.
--- NOTE | ~2021-02-09 | CT_ITS ---
EXAMINATION: CT HEAD WITHOUT CONTRAST CLINICAL INFORMATION: Fall COMPARISON: MRI 02/16/2021. Head CT 02/08/2021. TECHNIQUE: Contiguous axial imaging was performed from the skull base to vertex without intravenous contrast. This CT examination was performed using dose optimization techniques as appropriate, variously including the following: * Automated exposure control * Adjustment of mA and/or kV according to patient size (this includes techniques or standardized protocols for targeted exams where dose is matched to indication/reason for exam; i.e. extremities or head) Use of iterative reconstruction technique DLP: 701 mGy-cm. FINDINGS: There is no evidence of acute intracranial hemorrhage or territorial infarction. No abnormal mass effect or midline shift is seen. Romero to white matter differentiation is well preserved. No extra-axial fluid collections are identified. No hydrocephalus. Proportional prominence of the ventricles and sulcal spaces is consistent with mild volume loss. Patchy periventricular and deep white matter hypoattenuation is consistent with mild small vessel ischemic changes. The osseous structures and soft tissues are normal. The mastoid air cells and visualized portions of the paranasal sinuses are well aerated. CT/CT head/brain wo con IMPRESSION: No acute intracranial pathology.
--- NOTE | 2021-02-09 18:40 | PC.NURSE ---
per rn, akhil states that patient is combative, using wc to strike patients, high falls risk, striking at staff. makes no sense . is there for rehab after covid and a uti.
[2021-02-09 18:41] VITALS: BP 103/68; BP 125/80; PULSE 105; PULSE 111; RESP 18; TEMP 37; O2SAT 95; BMI 27.3
--- NOTE | 2021-02-09 19:31 | PC.NURSE ---
pt aTTEMPTINT TO GET OUTOF BED. COMBATIVE AND SWATTING AT STAFF. REDIRECTED. CALMING
--- NOTE | 2021-02-09 19:33 | PC.NURSE ---
PT IS ORIENTED TO PERSON AND TIME ONLY.
[2021-02-09 20:17] LABS: Appearance Urine CLEAR; Color Urine YELLOW; Glucose Urine UA NEG (NEG); Leukocyte Esterase Urine 1+ (NEG); Nitrite Urine NEG (NEG); Specific Gravity - Urine <= 1.005 (1.005-1.025); UACC Culture Trigger YES; Urine Blood NEG (NEG); Urine Ketones NEG (NEG); Urine Protein NEG (NEG-TRACE)
[2021-02-09 20:23] LABS: Bacteria Urine 2+ /LPF; RBC Urine 0 /HPF (0); WBC Urine 0-2 /HPF (0-4)
--- NOTE | 2021-02-09 22:39 | PC.NURSE ---
resting quietly in last few hours. no need for redirection.
--- NOTE | 2021-02-09 22:56 | ED_ITS ---
HPI - Altered Mental Status General Chief Complaint: Altered Mental Status Stated Complaint: AMS,COMBATIVE Time Seen by Provider: 02/09/21 20:29 Source: EMS Mode of arrival: EMS Limitations: altered mental status History of Present Illness HPI narrative: Patient is brought to the emergency room by EMS. Patient is c alissa from a short-term rehab ([facility]). Initially, patient was diagnosed with COVID-19, was sent to short-term rehab. For short-term rehab staff, the patient was recently diagnosed with a UTI, she was given antibiotic, finished a course of antibiotic. The staff has noted that over the last couple of days, the patient seems more confused, increasingly combative, trying to run over people with her wheelchair, staff reports that the patient has poor muscle coordination . Patient is unable to give any history, states that she feels well and goint to get in her car and drive herself home. Related Data Home Medications Medication Instructions Recorded Confirmed oxygen-air delivery systems #1 08/24/20 01/16/21 linaclotide 145 mcg capsule 145 mcg PO DAILY 12/17/20 01/21/21 liraglutide 0.6 mg/0.1 mL (18 mg/3 0.6 mg SUBCUT DAILY 12/17/20 01/21/21 mL) subcutaneous pen injector Breo Ellipta 1 puff INHALATION DAILY 01/09/21 01/21/21 amitriptyline 100 mg PO BEDTIME 01/09/21 01/21/21 lubiprostone [Amitiza] 24 mcg PO BID 01/09/21 01/21/21 albuterol sulfate 2 puff INHALATION Q4H PRN 01/14/21 01/21/21 ascorbic acid (vitamin C) 250 mg PO DAILY 01/14/21 01/21/21 bisacodyl 10 mg PA DAILY PRN 01/14/21 01/21/21 bupropion HCl 300 mg PO DAILY 01/14/21 01/21/21 cholecalciferol (vitamin D3) 25 mcg PO DAILY 01/14/21 01/21/21 [Vitamin D3] levothyroxine 50 mcg PO DAILY@0630 01/14/21 01/21/21 montelukast [Singulair] 10 mg PO BEDTIME 01/14/21 01/21/21 naloxone 4 mg INTRANASAL Q3M PRN 01/14/21 01/21/21 ondansetron 4 mg PO Q6H PRN 01/14/21 01/21/21 tramadol 25 mg PO Q6H PRN 01/14/21 01/21/21 zolpidem 5 mg PO BEDTIME PRN 01/14/21 01/21/21 Systane Complete 1 drp OPHTHALMIC (EYE) Q4H PRN 01/21/21 01/21/21 metaxalone 800 mg PO TID PRN 01/21/21 01/21/21 Previous Rx's Medication Instructions Recorded budesonide 0.5 mg/2 mL suspension 0.5 mg INHALATION DAILY 30 Days 08/25/20 for nebulization #60 ml lamotrigine 200 mg tablet 200 mg PO BID 30 Days #60 tab 08/26/20 pantoprazole 40 mg tablet,delayed 40 mg PO BID 90 Days #180 tab 08/26/20 release blood-glucose meter #1 ea 09/22/20 shower seat #1 ea 11/23/20 wheelchair #1 ea 11/23/20 gabapentin 400 mg capsule 400 mg PO BID 30 Days #60 cap 11/26/20 miscellaneous medical supply #1 ea 12/22/20 dextromethorphan-guaifenesin 10 ml PO Q6H #237 ml 01/27/21 ertapenem 1 g IV DAILY #10 ea 01/27/21 clonazepam [Klonopin] 1 mg PO BEDTIME #10 tab 01/28/21 Allergies Allergy/AdvReac Type Severity Reaction Status Date / Time unknown analgesia given Allergy Severe rash Uncoded 12/17/20 14:18 antihi Review of Systems Review of Systems: Unreliable history, patient states she feels well and is ready to go home Yes Unobtainable due to mental status PMFSH Past Medical History Medical History Acute and chronic respiratory failure with hypoxia Asthma-COPD overlap syndrome Bipolar 1 disorder COPD (chronic obstructive pulmonary disease) COVID-19 Depression with anxiety Diabetes Eosinophilia GERD (gastroesophageal reflux disease) Hemangioma Hypothyroidism Hypovitaminosis D Insomnia Lumbar degenerative disc disease Lupus Lupus (systemic lupus erythematosus) Neck mass Obesity Oxygen dependent Polyarthralgia Recurrent UTI Severe asthma Tachycardia Trigger finger of right hand Urinary retention Surgical History History of carpal tunnel release History of section History of colonoscopy History of cystocele History of hysterectomy History of shoulder surgery History of tonsillectomy Family History Family History Father No problems noted. Mother No problems noted. 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 Oriented X1. No acute distress. Angry, wants to be discharged Eyes: Pupils equal, round and reactive to light. ENT: Pharynx normal. Neck: Normal inspection. Neck supple. No lymph nodes noted. No crepitus CVS: Normal heart rate and rhythm. Pulses normal. Normal S1 and S2 Respiratory: No respiratory distress. Breath sounds normal. No Wheezing. No rales Abdomen: Soft and nontender. No rigidity. No distention. good BS x4 Skin: Skin warm and dry. Normal skin color. Normal skin turgor. Extremities: No lower extremity edema. Moving all extremities Neuro: No motor deficit. No sensory deficit. Moving all extermities. No slurred speech. Course Course Course Narrative: First urine obtained at 20:00 on February 09, was not a clean catch, the urine was collected from the hat. That urinalysis was borderline positive. A 2nd urinalysis was obtained, this time straight cath, this time negative. [facility] consult pending. Patient may also need physical therapy evaluation. Sepsis not suspected. While patient has been in the emergency room, she keeps trying to get out of bed, occasionally trying to punch our staff, redirectable. Physician of sedation was started at 01:45, patient is awake, alert x1, redirectable, vitals stable, waiting to be seen by [facility] and physical therapy in the morning. [facility] and PT consult pending. It is likely that the patient will return to [facility]. This time, patient is on physician observation. Sign-out given to Dr. Marks [facility] - Altered Mental Status Lab Data Result diagrams: 02/10/21 00:54 02/10/21 00:54 Labs: Lab Results 02/09/21 02/10/21 02/10/21 Range/Units 20:10 00:54 00:54 WBC 4.3 L (4.8-10.8) X10*3/uL RBC 4.23 (4.20-5.50) X10*6/uL Hgb 12.0 (12.0-16.0) g/dl Hct 39.6 (37-47) % MCV 93.6 (80-98) fL MCH 28.4 (27.0-33.0) pg MCHC 30.3 L (31.0-35.0) g/dl RDW 17.0 H (11.0-16.0) % Plt Count 453 H (160-400) X10*3/uL MPV 9.1 L (9.4-12.3) fL Immature Gran % (Auto) 1.6 H (0.0-0.4) % Neut % (Auto) 56.8 (45-73) % Lymph % (Auto) 28.3 (20-40) % Riley % (Auto) 13.1 H (2-11) % Eos % (Auto) 0.0 (0-4) % Baso % (Auto) 0.2 (0-2) % Lymph # (Auto) 1.2 (1.2-4.9) X10*3/uL Riley # (Auto) 0.6 (0.1-1.2) X10*3/uL Eos # (Auto) 0.0 (0.0-0.4) X10*3/uL Baso # (Auto) 0.0 (0.0-0.2) X10*3/uL Abs Immat Gran (auto) 0.07 H (0.00-0.03) X10*3/uL Absolute Neuts (auto) 2.4 (2.0-8.3) X10*3/uL Absolute Nucleated RBC 0.000 (0.0-0.012) X10*3/uL Nucleated RBC % (auto) 0.0 (0.0-0.2) /100WBC Sodium 142 (135-145) mmol/L Potassium 4.0 (3.3-5.1) mmol/L Chloride 106 (96-108) mmol/L Carbon Dioxide 28 (22-29) mmol/L Anion Gap 12 (12-20) BUN 6 L (9-16) mg/dL Creatinine 0.84 (0.5-1.4) mg/dL Estim Creat Clear Calc 57.7 Estimated GFR > 60 Random Glucose 83 (60-115) mg/dL Lactic Acid (0.5-2.0) mmol/L Calcium 9.8 D (8.4-10.2) mg/dL Urine Color YELLOW Urine Appearance CLEAR Urine pH 6.0 (5.0-8.0) Ur Specific Woodworth <= 1.005 (1.005-1.025) Urine Protein NEG (NEG-TRACE) MG/DL Urine Glucose (UA) NEG (NEG) MG/DL Urine Ketones NEG (NEG) MG/DL Urine Blood NEG (NEG) Urine Nitrite NEG (NEG) Ur Leukocyte Esterase 1+ H (NEG) Urine RBC 0 (0) /HPF Urine WBC 0-2 (0-4) /HPF Ur Squamous Epith Cells NONE /LPF Urine Bacteria 2+ /LPF 02/10/21 02/10/21 Range/Units 00:54 01:15 WBC (4.8-10.8) X10*3/uL RBC (4.20-5.50) X10*6/uL Hgb (12.0-16.0) g/dl Hct (37-47) % MCV (80-98) fL MCH (27.0-33.0) pg MCHC (31.0-35.0) g/dl RDW (11.0-16.0) % Plt Count (160-400) X10*3/uL MPV (9.4-12.3) fL Immature Gran % (Auto) (0.0-0.4) % Neut % (Auto) (45-73) % Lymph % (Auto) (20-40) % Riley % (Auto) (2-11) % Eos % (Auto) (0-4) % Baso % (Auto) (0-2) % Lymph # (Auto) (1.2-4.9) X10*3/uL Riley # (Auto) (0.1-1.2) X10*3/uL Eos # (Auto) (0.0-0.4) X10*3/uL Baso # (Auto) (0.0-0.2) X10*3/uL Abs Immat Gran (auto) (0.00-0.03) X10*3/uL Absolute Neuts (auto) (2.0-8.3) X10*3/uL Absolute Nucleated RBC (0.0-0.012) X10*3/uL Nucleated RBC % (auto) (0.0-0.2) /100WBC Sodium (135-145) mmol/L Potassium (3.3-5.1) mmol/L Chloride (96-108) mmol/L Carbon Dioxide (22-29) mmol/L Anion Gap (12-20) BUN (9-16) mg/dL Creatinine (0.5-1.4) mg/dL Estim Creat Clear Calc Estimated GFR Random Glucose (60-115) mg/dL Lactic Acid 1.1 (0.5-2.0) mmol/L Calcium (8.4-10.2) mg/dL Urine Color YELLOW Urine Appearance CLEAR Urine pH 7.0 (5.0-8.0) Ur Specific Woodworth 1.015 (1.005-1.025) Urine Protein NEG (NEG-TRACE) MG/DL Urine Glucose (UA) NEG (NEG) MG/DL Urine Ketones NEG (NEG) MG/DL Urine Blood NEG (NEG) Urine Nitrite NEG (NEG) Ur Leukocyte Esterase NEG (NEG) Urine RBC 0-2 (0) /HPF Urine WBC 0-2 (0-4) /HPF Ur Squamous Epith Cells 1+ /LPF Urine Bacteria 3+ /LPF Discharge Plan Discharge Clinical Impression: Altered mental status Qualifiers: Altered mental status type: unspecified Qualified Code(s): R41.82 - Altered mental status, unspecified Prescriptions: No Action budesonide [Pulmicort] 0.5 mg/2 mL suspension for nebulization 0.5 mg inhalation DAILY 30 Days Qty: 60 RF: 11 lamotrigine [Lamictal] 200 mg tablet 200 mg PO BID 30 Days Qty: 60 RF: 11 pantoprazole [Protonix] 40 mg tablet,delayed release (DR/EC) 40 mg PO BID 90 Days Qty: 180 RF: 3 (DME) wheelchair See Rx Instructions .Route .MEDSUPPLY Qty: 1 RF: 0 (DME) shower seat See Rx Instructions .Route .MEDSUPPLY Qty: 1 RF: 0 gabapentin 400 mg capsule 400 mg PO BID 30 Days Qty: 60 RF: 3 (DME) miscellaneous medical supply Misc See Rx Instructions .ROUTE .MEDSUPPLY Qty: 1 RF: 0 albuterol sulfate 90 mcg/actuation HFA aerosol inhaler 2 puff inhalation Q4H PRN (Reason: Wheezing) RF: 0 zolpidem 5 mg Tablet 5 mg PO BEDTIME PRN (Reason: Sleep) RF: 0 ascorbic acid (vitamin C) 250 mg Tablet 250 mg PO DAILY RF: 0 bisacodyl 10 mg Suppository 10 mg PA DAILY PRN (Reason: Constipation) RF: 0 bupropion HCl 300 mg tablet extended release 24 hr 300 mg PO DAILY RF: 0 levothyroxine 50 mcg Tablet 50 mcg PO DAILY@0630 RF: 0 naloxone 4 mg/actuation [place],Non-Aerosol 4 mg INTRANASAL Q3M PRN (Reason: UNRESPONSIVE) RF: 0 montelukast [Singulair] 10 mg tablet 10 mg PO BEDTIME RF: 0 tramadol 50 mg Tablet 25 mg PO Q6H PRN (Reason: Moderate Pain (Scale Score 5-6)) RF: 0 cholecalciferol (vitamin D3) [Vitamin D3] 25 mcg (1,000 unit) Capsule 25 mcg PO DAILY RF: 0 ondansetron 4 mg Tablet,Disintegrating 4 mg PO Q6H PRN (Reason: Nausea And Vomiting) RF: 0 amitriptyline 100 mg tablet 100 mg PO BEDTIME RF: 0 lubiprostone [Amitiza] 24 mcg capsule 24 mcg PO BID RF: 0 Breo Ellipta 200-25 mcg/dose blister with device 1 puff inhalation DAILY RF: 0 metaxalone 800 mg Tablet 800 mg PO TID PRN (Reason: Muscle Pain) RF: 0 Systane Complete 0.6 % drops 1 drp ophthalmic (eye) Q4H PRN (Reason: dry eye(s)) RF: 0 ertapenem 1 gram recon soln 1 g IV DAILY Qty: 10 RF: 0 dextromethorphan-guaifenesin 10-100 mg/5 mL Syrup 10 ml PO Q6H Qty: 237 RF: 0 clonazepam [Klonopin] 1 mg tablet 1 mg PO BEDTIME Qty: 10 RF: 0 (DME) oxygen-air delivery systems Device See Rx Instructions .ROUTE .MEDSUPPLY Qty: 1 RF: 0 (DME) blood-glucose meter [FreeStyle Morganza Lite] Kit See Rx Instructions .ROUTE .MEDSUPPLY Qty: 1 RF: 0 liraglutide 0.6 mg/0.1 mL (18 mg/3 mL) pen injector 0.6 mg subcut DAILY RF: 0 linaclotide 145 mcg capsule 145 mcg PO DAILY RF: 0
--- NOTE | 2021-02-09 23:16 | PC.NURSE ---
PT REFUSING VS, REMAINS DISORIENTED TO TIME HERE, STATING THAT SHE'S B EEN HERE SINCE 4AM. SWATTING AND PINCHING STAFF WE TRY TO REPOSITION HER AND AVOID HAVING HER SLID FROM END OF BED.
--- NOTE | 2021-02-09 23:17 | PC.NURSE ---
PT HAS BEEN OFFERED FOOD AND DRINK BUT NO RESPONSE.
[2021-02-10] VITALS (14 sets, daily range): BP systolic 98–114; BP diastolic 52–62; PULSE 113–118; RESP 16–24; TEMP 36.8–37.1; O2SAT 91–93
--- NOTE | 2021-02-10 00:43 | PC.NURSE ---
0030 REPORT TO ERIN PRADO
[2021-02-10 01:02] LABS: MANUAL DIFF FLAG NO
[2021-02-10 01:11] LABS: Basophils Percent Auto 0.2 % (0-2); Hematocrit 39.6 % (37-47); Imm Gran Abs Auto 0.07 X10*3/uL (0.00-0.03); Imm Gran Pct Auto 1.6 % (0.0-0.4); Lymphocytes Absolute Auto 1.2 X10*3/uL (1.2-4.9); Lymphocytes Percent Auto 28.3 % (20-40); Mean Corpuscular HGB Conc 30.3 g/dl (31.0-35.0); Mean Corpuscular Hemoglobin 28.4 pg (27.0-33.0); Mean Corpuscular Volume 93.6 fL (80-98); Mean Platelet Volume 9.1 fL (9.4-12.3); Monocytes Absolute Auto 0.6 X10*3/uL (0.1-1.2); Monocytes Percent Auto 13.1 % (2-11); Neutrophils Absolute Auto 2.4 X10*3/uL (2.0-8.3); Neutrophils Percent Auto 56.8 % (45-73); Platelet Count 453 X10*3/uL (160-400); Red Blood Count 4.23 X10*6/uL (4.20-5.50); White Blood Count 4.3 X10*3/uL (4.8-10.8)
[2021-02-10 01:21] LABS: Glucose Urine UA NEG (NEG); Leukocyte Esterase Urine NEG (NEG); Nitrite Urine NEG (NEG); Specific Gravity - Urine 1.015 (1.005-1.025); Urine Blood NEG (NEG); Urine Ketones NEG (NEG); Urine Protein NEG (NEG-TRACE)
[2021-02-10 01:22] LABS: Appearance Urine CLEAR; Color Urine YELLOW
[2021-02-10 01:29] LABS: WBC Urine 0-2 /HPF (0-4)
[2021-02-10 01:30] LABS: Bacteria Urine 3+ /LPF; RBC Urine 0-2 /HPF (0); Squamous Epithelial Cell Urine 1+ /LPF
[2021-02-10 01:31] LABS: Lactic Acid 1.1 mmol/L (0.5-2.0)
[2021-02-10 01:34] LABS: Anion Gap 12 (12-20); Blood Urea Nitrogen 6 mg/dL (9-16); Calcium 9.8 mg/dL (8.4-10.2); Carbon Dioxide 28 mmol/L (22-29); Chloride 106 mmol/L (96-108); Creatinine Clr Calc Pharmacy 57.7; Estimated Glomerular Filt Rate > 60; Glucose Random 83 mg/dL (60-115); Sodium 142 mmol/L (135-145)
--- NOTE | 2021-02-10 02:45 | PC.NURSE ---
pt is now hallucinating that she is seeing a person named Saurabh. dr nielson made aware and medication is being ordered. pt tried to leave by exiting the bottom of the bed with both side rales up and locked. no injury, provider present. pt has done this in the past she gets oob and then takes her blanket and lays on the floor in her angry state of mind.
[2021-02-10] MEDS: OLANZapine 10 MG VIAL 5 MG IM ×2 (03:02→15:10)
--- NOTE | 2021-02-10 03:40 | PC.NURSE ---
pt resting comfortably, visable to staff. in hospital bed for comfort. pt no longer yelling out.
[2021-02-10] MEDS: diphenhydrAMINE HCL 50 MG/ML VIAL 25 MG IM (05:14)
[2021-02-10] MEDS: LORazepam 2 MG/ML VIAL 1 MG IM (05:14)
--- NOTE | 2021-02-10 09:03 | PC.NURSE ---
called the care team to see if they can come down and see the pt, spoke with Carlos
--- NOTE | 2021-02-10 10:02 | PC.NURSE ---
pt is calmer not moving around the bed every few seconds, pt eating breakfast at this time
--- NOTE | 2021-02-10 12:00 | PC.NURSE ---
pt sleeping at this time
--- NOTE | 2021-02-10 12:46 | PC.NURSE ---
venkata dan would like to speak with case mgmt, - will notify them as well
--- NOTE | 2021-02-10 14:03 | PC.NURSE ---
patient currently eating lunch
--- NOTE | 2021-02-10 15:33 | PC.NURSE ---
patrick from [facility] is her to evaluate patient.
--- NOTE | 2021-02-10 15:34 | PC.NURSE ---
patient incontinent of large amount of stool, complete bed change performed
[2021-02-10] MEDS: OLANZapine 10 MG VIAL IM (17:37)
--- NOTE | 2021-02-10 17:38 | PC.NURSE ---
security and provider at bedside, pt medicated per order, unable to obtain vitals signs at this time, pt combative, kicking, punching at attempted to bite this nurse as medication was administered
--- NOTE | 2021-02-10 18:07 | PC.NURSE ---
patient continues to be combative and agitated, rr 24, provider notified, will continue to monitor.
--- NOTE | 2021-02-10 19:05 | PC.NURSE ---
patient continues to be combative, provider aware, pt re-adjusted in bed, still unable to obtain vitals, rr has been documented.
[2021-02-11] VITALS (10 sets, daily range): BP systolic 104; BP diastolic 64; PULSE 118; RESP 16–20; TEMP 37.1; O2SAT 92
--- NOTE | 2021-02-11 00:42 | PC.NURSE ---
pt refusing all food and oral fluids. when asked if she would like to be repositioned or boosted up in bed she adamantly refuses. she punches and grabs staff at times when trying to assess her and take vitals. pt speaking out as if having a conversation with people who are not there. pt also yells out and thrashes around in bed as if trying to get out of bed. md aware of poor PO intake and non-compliance with care.
[2021-02-11] MEDS: LORazepam 2 MG/ML VIAL IM ×3 (01:44→21:08)
--- NOTE | 2021-02-11 01:47 | PC.NURSE ---
Pt medicated with Ativan IM per MD order as IV access was unavailable at this time. Pt medicated with Ativan to facilitate compliance and cooperation with care. Pt repositioned in bed into POC, provided with warm blankets. Refusing VS at this time, continue to monitor.
--- NOTE | 2021-02-11 07:58 | PC.NURSE ---
Call to TRINO. Pt an inpt bedsearch
--- NOTE | 2021-02-11 11:46 | PC.NURSE ---
patient awake/alert/confused, rolling around in bed, pt refusing to allow vitals- attempted to hit this nurse, rr 18, will continue to monitor.
--- NOTE | 2021-02-11 13:07 | PC.NURSE ---
patient boosted in bed/sat up to eat lunch.
--- NOTE | 2021-02-11 13:17 | PM.PSYCN ---
History of Present Illness Date of Service: 02/11/21 Chief Complaint: AMS,COMBATIVE Reason for Consult: medication recommendation for agitation Requesting physician: Mitzi Faulkner Discussed with referring provider: Yes Sources of Information: chart reviewed HPI Narrative: pt writhing on bed upon as approached and not interviewed [facility] Medical History Acute and chronic respiratory failure with hypoxia Asthma-COPD overlap syndrome Bipolar 1 disorder COPD (chronic obstructive pulmonary disease) COVID-19 Depression with anxiety Diabetes Eosinophilia GERD (gastroesophageal reflux disease) Hemangioma Hypothyroidism Hypovitaminosis D Insomnia Lumbar degenerative disc disease Lupus Lupus (systemic lupus erythematosus) Neck mass Obesity Oxygen dependent Polyarthralgia Recurrent UTI Severe asthma Tachycardia Trigger finger of right hand Urinary retention Surgical History History of carpal tunnel release History of section History of colonoscopy History of cystocele History of hysterectomy History of shoulder surgery History of tonsillectomy Diagnostics Vital Signs (24Hr): Vital Signs - 24 hr 02/10/21 14:31 02/10/21 16:23 02/10/21 17:37 Temperature 98.2 F Pulse Rate 113 H Respiratory Rate 18 20 22 H Blood Pressure 114/62 Pulse Oximetry 93 02/10/21 17:52 02/10/21 18:07 02/10/21 18:08 Temperature Pulse Rate Respiratory Rate 24 H 24 H 24 H Blood Pressure Pulse Oximetry 02/10/21 18:22 02/10/21 18:37 02/10/21 18:52 Temperature Pulse Rate Respiratory Rate 22 H 22 H 22 H Blood Pressure Pulse Oximetry 02/10/21 19:07 02/10/21 22:05 02/11/21 01:47 Temperature 98.7 F Pulse Rate 118 H Respiratory Rate 22 H 18 20 Blood Pressure 98/52 L Pulse Oximetry 91 L 02/11/21 02:35 02/11/21 03:48 02/11/21 06:00 Temperature Pulse Rate Respiratory Rate 16 16 16 Blood Pressure Pulse Oximetry 02/11/21 11:46 Temperature Pulse Rate Respiratory Rate 18 Blood Pressure Pulse Oximetry Body Mass Index 27.3 Labs Results: 02/10/21 00:54 02/10/21 00:54 Labs: Laboratory Results - last 48 hr 02/09/21 02/10/21 02/10/21 20:10 00:54 00:54 WBC 4.3 L RBC 4.23 Hgb 12.0 Hct 39.6 MCV 93.6 MCH 28.4 MCHC 30.3 L RDW 17.0 H Plt Count 453 H MPV 9.1 L Immature Gran % (Auto) 1.6 H Neut % (Auto) 56.8 Lymph % (Auto) 28.3 [place] % (Auto) 13.1 H Eos % (Auto) 0.0 Baso % (Auto) 0.2 Lymph # (Auto) 1.2 [place] # (Auto) 0.6 Eos # (Auto) 0.0 Baso # (Auto) 0.0 Abs Immat Gran (auto) 0.07 H Absolute Neuts (auto) 2.4 Absolute Nucleated RBC 0.000 Nucleated RBC % (auto) 0.0 Sodium 142 Potassium 4.0 Chloride 106 Carbon Dioxide 28 Anion Gap 12 BUN 6 L Creatinine 0.84 Estim Creat Clear Calc 57.7 Estimated GFR > 60 Random Glucose 83 Lactic Acid Calcium 9.8 D Urine Color YELLOW Urine Appearance CLEAR Urine pH 6.0 Ur Specific [place] <= 1.005 Urine Protein NEG Urine Glucose (UA) NEG Urine Ketones NEG Urine Blood NEG Urine Nitrite NEG Ur Leukocyte Esterase 1+ H Urine RBC 0 Urine WBC 0-2 Ur Squamous Epith Cells NONE Urine Bacteria 2+ 02/10/21 02/10/21 00:54 01:15 WBC RBC Hgb Hct MCV MCH MCHC RDW Plt Count MPV Immature Gran % (Auto) Neut % (Auto) Lymph % (Auto) [place] % (Auto) Eos % (Auto) Baso % (Auto) Lymph # (Auto) [place] # (Auto) Eos # (Auto) Baso # (Auto) Abs Immat Gran (auto) Absolute Neuts (auto) Absolute Nucleated RBC Nucleated RBC % (auto) Sodium Potassium Chloride Carbon Dioxide Anion Gap BUN Creatinine Estim Creat Clear Calc Estimated GFR Random Glucose Lactic Acid 1.1 Calcium Urine Color YELLOW Urine Appearance CLEAR Urine pH 7.0 Ur Specific [place] 1.015 Urine Protein NEG Urine Glucose (UA) NEG Urine Ketones NEG Urine Blood NEG Urine Nitrite NEG Ur Leukocyte Esterase NEG Urine RBC 0-2 Urine WBC 0-2 Ur Squamous Epith Cells 1+ Urine Bacteria 3+ Medications Allergies Allergies Allergy/AdvReac Type Severity Reaction Status Date / Time unknown analgesia given Allergy Severe rash Uncoded 12/17/20 14:18 antihi Assessment & Plan IMPRESSION: Pt currently delirious. Recent hx not fully clear. It seems that pt came to ED about 2+ weeks ago, dx with covid, encephalopathy, pneumonia and UTI; pt was treated and then discharged to Rehab facility. After a few days there, she reportedly became aggressive, trying to assault staff and was sent to ED for workup. Current cause of delirium not clear. However, given patients recent bout with covid, encephalopathy, and hx of spending time in Rehab facility while immunocomprimised (recovering from covid and other infectious processes), recommend a Neurology consult for full work up and to r/o post-covid encephalopathy. Regarding dealing with patients current agitation, recommend discontinue using Zyprexa and benzo's since both are sedating and risk worsening delirium. Instead, recommend using Haldol IV instead (see below for details) which is less sedating. Therapist Physical is not sure if plan is to discharge/transfer to [facility], but strongly recommend that transfer be held until cleared by neurology workup and cause of delirium identified. Pt does not seem to meet criteria for SIRS but recommend full set of vitals be obtained more regularly to ensure. Of note, respiratory rate may have been lowered post zyprexa/ativan administration otherwise: Head CT: neg UA unremarkable EKG: qtc WNL labs grossly WNL but will order tsh and ammonia DX: Delirium charted hx of bipolar disorder Hypothyroid RECOMMENDATION: For agitation: -Currently, pt not able to take PO (otherwise, would consider Risperdal). -Thus recommend Haldol 2mg IV (IV has a lower risk of EPS than IM; conversely, IM has lower risk of QTc prolongation but patients Qtc is WNL and antipsychotic induced arrhythmias are rare). -If she's not more calm in ~ 20-30 minutes, give another Haldol 2mg IV and wait another 30minutes; may give another 2mg IV for continued agitation, -however if still not calm after 8mg of Haldol, it's likely that this med is not effective and will need to reconsider meds for agitation For AMS recommend Neurology consult (pt is post-Covid with recent history of encephalopathy) consider MRI consider LP get ammonia level (low concern given AST/ALT wnl, however since pt was on Naltrexone worth ruling out) get TSH with reflex T4 since pt has hx of hypothyroid consider Lamictal level: pt has been off Lamictal for 2 days so unlikely that Lamcital level will be revealing, but Lamictal toxicity is a differential consider getting full set of vitals q1hs for next 24 hours Greater than 50% of the session was spent on counseling and/or coordination of care
--- NOTE | 2021-02-11 13:55 | PC.NURSE ---
patient currently calm, eating lunch, attempted vitals-pt wouldnt allow, rr documented, will attempt lab draw after patient finishes eating
[2021-02-11 15:26] LABS: Ammonia 40 umol/L (13-55)
[2021-02-11 15:54] LABS: TSH reflex Free T4 2.65 uIU/mL (0.32-4.0)
--- NOTE | 2021-02-11 16:37 | PC.NURSE ---
patient currently calm in room, will continue to monitor.
--- NOTE | 2021-02-11 19:28 | PC.NURSE ---
patient repositioned with 4 assist in bed to sit up for dinner, pt refused vitals and was combative with staff assisting, pt currently eating dinner
--- NOTE | 2021-02-11 20:27 | PC.NURSE ---
patient awake/alert- pt continues to refuse vitals, pt currently restless, rolling around in bed, when staff attempts to situate patient she kicks and punches, rr currently 18, will have tech attempt vitals again shortly and continue to monitor.
--- NOTE | 2021-02-11 20:59 | PC.NURSE ---
patient medicated with IM ativan to enable patient to better participate in their care, pt previously rolling around in bed with inability to follow direction.
--- NOTE | 2021-02-11 22:00 | PC.NURSE ---
patient awake/alert, patient no longer rolling around in bed and is allowing this nurse to cover her with a blanket, patient currently following some direction although continues to not allow vitals signs, rr 18 at this time, will continue to monitor
[2021-02-12 06:44] VITALS: BP 112/83; PULSE 97; RESP 18; TEMP 36.6; O2SAT 95
[2021-02-12] MEDS: Haloperidol Lactate 5 MG/ML VIAL 2 MG IM (09:28)
--- NOTE | 2021-02-12 10:05 | PC.NURSE ---
pt has been restless and agitated despite medication for symptoms. She has made multiple attempts to throw her legs over the rails of bed and put herself on floor, has been intercepted by staff and repositioned in bed. Pt continues to throw legs over rails. margin clerk aware, provider aware, rigging supervisor aware. No sitter to bedside at this time. Will continue to monitor and reposition for safety
--- NOTE | 2021-02-12 11:20 | PC.NURSE ---
PT SLEEPING IN HOSPITAL BED AT THIS TIME. RESP EVEN, NONLABOURED. RECEIVED REPORT FROM JUANY PRADO, PT CURRENTLY [facility]
[2021-02-12 11:22] VITALS: BP 103/63; PULSE 115; RESP 16; O2SAT 96
--- NOTE | 2021-02-12 13:33 | PC.NURSE ---
PT IS AWAKE, ALERT. SMILING, CONVERSING INCOMPREHENSIBLY AT TIMES. GIVEN DIET ABDIRAHMAN BENJA TO RELIEF C/O DRY, SORE THROAT.
--- NOTE | 2021-02-12 14:06 | PC.NURSE ---
REC'D CALL FROM MARIELA JAMESON, [facility] NEEDED, ORDER ENTERED. NOTES AND LAB RESULTS TO BE FAXED TO [facility] [phone] ONCE COVID TEST RESULTED.
[2021-02-12 15:21] LABS: COVID-19 Test Negative (Negative); IDNOW Serial# 9DD0AD1C
[2021-02-12 16:00] VITALS: BP 119/95; PULSE 118; RESP 16; TEMP 36.4; O2SAT 94
[2021-02-12] MEDS: Cholecalciferol (Vitamin D3) 25 MCG TABLET PO (16:17)
[2021-02-12] MEDS: Nystatin Powder 15 GM BOTTLE 1 APPL TOPICAL ×2 (16:17→22:14)
[2021-02-12] MEDS: Gabapentin 400 MG CAPSULE PO ×2 (16:17→22:12)
--- NOTE | 2021-02-12 16:17 | PC.NURSE ---
EVE KEATING IS AWARE OF PATIENT HIGH HEART RATE .
[2021-02-12] MEDS: buPROPion HCl XL 300 MG TAB.ER.24H PO (16:18)
[2021-02-12] MEDS: Omeprazole 40 MG CAPSULE.DR PO (16:18)
--- NOTE | 2021-02-12 16:18 | PC.NURSE ---
MY SELF AND RN ZURI GIVE PATIENT A BED BATH ,PATIENT WAS HAPPY ,LAUGHING ,AND COOPERATIVE WITH CARE .
[2021-02-12] MEDS: Enoxaparin Sodium 40 MG/0.4 ML SYRINGE SUBCUT (16:19)
[2021-02-12] MEDS: Budesonide 180 MCG AER.POW.BA 2 PUFF INHALE ×2 (16:20→22:15)
[2021-02-12] MEDS: lamoTRIgine 100 MG TABLET 200 MG PO ×2 (16:20→22:14)
[2021-02-12] MEDS: Fluticasone/Vilanterol 200/25 BLST.W.DEV 1 PUFF INHALE (16:20)
[2021-02-12] MEDS: guaiFENesin DM 100/10/5 ML 5 ML SYRUP 10 ML PO ×2 (16:21→22:13)
[2021-02-12] MEDS: Levothyroxine Sodium 50 MCG TABLET PO (18:25)
[2021-02-12] MEDS: Ascorbic Acid 250 MG TABLET PO (18:25)
[2021-02-12 19:33] VITALS: BP 122/84; PULSE 109; RESP 16; TEMP 36.4; O2SAT 95
[2021-02-12 22:09] VITALS: BP 116/46; PULSE 113; RESP 14; TEMP 36.5; O2SAT 95
[2021-02-12] MEDS: Amitriptyline HCl 50 MG TABLET 100 MG PO (22:12)
[2021-02-12] MEDS: Montelukast Sodium 10 MG TABLET PO (22:13)
--- NOTE | 2021-02-12 23:49 | PC.NURSE ---
pt is sleeping, not restless, bp on the low side but stable. Will continue to monitor. provider aware.
[2021-02-13] VITALS (13 sets, daily range): BP systolic 100–130; BP diastolic 51–85; PULSE 95–119; RESP 15–223; TEMP 36.3–36.6; O2SAT 89–100
--- NOTE | 2021-02-13 00:08 | PC.NURSE ---
THIS PCT REPORT TO EVE ASHFORD OF PATIENT LOW 02 SAT ,EVE ASHFORD SAID TO PUT PATIENT ON 2 L 02
--- NOTE | 2021-02-13 00:10 | PC.NURSE ---
PATIENT WAS INCONT OF URINE ,SYLVIE CARE WAS DONE BY THIS PCT AND PCT ANILA ,PATIENT WAS ALSO REPOSITION AT THIS TIME
[2021-02-13] MEDS: 0.9 % Sodium Chloride 1,000 ML 999 ML IVCONT (00:36)
--- NOTE | 2021-02-13 05:52 | PC.NURSE ---
patient medicated with im lina per naga josé. patient waking up and unable to verbalize her needs or participate in her care. medicated to better enable patient to participate in her care here in the ed. staff reporting that when she is medicated she is not acting ot and can sit and have a conversation with staff that is appropriate. patient repositionined in bed.
--- NOTE | 2021-02-13 06:59 | PC.NURSE ---
patient still wiggling to the end of the bed, no longer combative crying at times talking about her son. more calm and able to verbalized needs better.
[2021-02-13] MEDS: Haloperidol Lactate 5 MG/ML VIAL 2 MG IM ×2 (07:20→13:45)
--- NOTE | 2021-02-13 07:40 | PC.NURSE ---
patient aggitated, combative, trying to hit this nurse and sitter. patient not redirecting at this time. provided water, dim lights.
[2021-02-13] MEDS: guaiFENesin DM 100/10/5 ML 5 ML SYRUP 10 ML PO ×2 (08:26→22:36)
[2021-02-13] MEDS: Fluticasone/Vilanterol 200/25 BLST.W.DEV 1 PUFF INHALE (08:26)
[2021-02-13] MEDS: lamoTRIgine 100 MG TABLET 200 MG PO ×2 (08:26→22:36)
[2021-02-13] MEDS: Cholecalciferol (Vitamin D3) 25 MCG TABLET PO (08:26)
[2021-02-13] MEDS: Budesonide 180 MCG AER.POW.BA 2 PUFF INHALE ×2 (08:26→22:37)
[2021-02-13] MEDS: Nystatin Powder 15 GM BOTTLE 1 APPL TOPICAL ×2 (08:26→22:36)
[2021-02-13] MEDS: buPROPion HCl XL 300 MG TAB.ER.24H PO (08:26)
--- NOTE | 2021-02-13 14:10 | PC.NURSE ---
LATE ENTRY 1345 MEDICATED WITH HALDOL 2MG. ORDER IS ONE TIME DOSE RECCOMMENDED BY PSYCHIATRIST. PROVDER STATES THAT THERE ARE STEP UP ORDERS FOR INCREASED HALDOL IM IF THIS DOSE IS INEFFECTIVE. PT WAS AGGITATED AND HIGH RISK FOR FALLS AT TIME MED GIVEN.
--- NOTE | 2021-02-13 18:20 | PC.NURSE ---
patient started the day combatitive. given medication per per emar. through the day patient started to be alert and oriented to place and time. patient given food to eat. sitter at bedside. will continue to monitor.
[2021-02-13] MEDS: Gabapentin 400 MG CAPSULE PO (22:35)
[2021-02-13] MEDS: Amitriptyline HCl 50 MG TABLET 100 MG PO (22:36)
[2021-02-13] MEDS: Montelukast Sodium 10 MG TABLET PO (22:36)
[2021-02-14 08:00] VITALS: PULSE 90; RESP 16; O2SAT 98
--- NOTE | 2021-02-14 09:40 | PC.NURSE ---
Pt sleeping at this time unlabored breathing. attempted to give meds earlier and pt refused
[2021-02-14 09:45] VITALS: BP 133/76; PULSE 105; RESP 15; O2SAT 97
[2021-02-14] MEDS: Ascorbic Acid 250 MG TABLET PO (11:34)
[2021-02-14] MEDS: Nystatin Powder 15 GM BOTTLE 1 APPL TOPICAL ×2 (11:35→21:40)
[2021-02-14] MEDS: Omeprazole 40 MG CAPSULE.DR PO (17:33)
[2021-02-14] MEDS: guaiFENesin DM 100/10/5 ML 5 ML SYRUP 10 ML PO ×2 (17:33→21:40)
--- NOTE | 2021-02-14 19:02 | PC.NURSE ---
Pt is calm,cooperative, and pleasant with this rn and language interpreter. Pt requested and given clean clothing, MHA to assist in changing. Pt denies complaints or needs at this time.
[2021-02-14 19:29] VITALS: BP 105/57; PULSE 112; RESP 18; O2SAT 92
[2021-02-14] MEDS: Amitriptyline HCl 50 MG TABLET 100 MG PO (21:40)
[2021-02-14] MEDS: Montelukast Sodium 10 MG TABLET PO (21:40)
[2021-02-14] MEDS: Gabapentin 400 MG CAPSULE PO (21:40)
[2021-02-14] MEDS: lamoTRIgine 100 MG TABLET 200 MG PO (21:40)
[2021-02-14] MEDS: Budesonide 180 MCG AER.POW.BA 2 PUFF INHALE (21:41)
[2021-02-14 22:50] VITALS: BP 134/89; PULSE 87; RESP 15; TEMP 37.2; O2SAT 98
--- NOTE | 2021-02-15 02:00 | PC.NURSE ---
patient is sleeping at this time, respirations even, non labored.
--- NOTE | 2021-02-15 07:32 | PC.NURSE ---
Pt is sleeping at this time, appears comfortable. Will defer meds until awake. Pt observer at bedside for safety
--- NOTE | 2021-02-15 09:26 | PC.NURSE ---
Mitzi GILL aware of 0630 meds held/ pt remains asleep at this time
[2021-02-15] MEDS: Cholecalciferol (Vitamin D3) 25 MCG TABLET PO (11:13)
[2021-02-15] MEDS: Gabapentin 400 MG CAPSULE PO ×2 (11:13→21:26)
[2021-02-15] MEDS: buPROPion HCl XL 300 MG TAB.ER.24H PO (11:14)
[2021-02-15] MEDS: lamoTRIgine 100 MG TABLET 200 MG PO ×2 (11:14→21:25)
[2021-02-15] MEDS: Enoxaparin Sodium 40 MG/0.4 ML SYRINGE SUBCUT (11:15)
--- NOTE | 2021-02-15 11:15 | P.CNNE_ITS ---
History of Present Illness Data of Consult Service Date: 02/15/21 Primary Care Provider: Unknown Physician 60 years old woman with complicated underlying history of asthma/COPD, bipolar disorder anxiety and depression who suffered from probably COVID related pneumonia in December resulting in hypoxemia. Now that was better but her mental status was fluctuating. At time she was angry and agitated and required treatment with Haldol. This consultation was requested to comment on possibili ty of COVID related encephalopathy. There was no indication of any seizure disorder or any focal weakness suggestive of stroke. Review of Systems Review of Systems: No recent cold or flu-like illness during last few days. No fall or convulsion or focal weakness. [facility] Past Medical History Medical History Acute and chronic respiratory failure with hypoxia Asthma-COPD overlap syndrome Bipolar 1 disorder COPD (chronic obstructive pulmonary disease) COVID-19 Depression with anxiety Diabetes Eosinophilia GERD (gastroesophageal reflux disease) Hemangioma Hypothyroidism Hypovitaminosis D Insomnia Lumbar degenerative disc disease Lupus Lupus (systemic lupus erythematosus) Neck mass Obesity Oxygen dependent Polyarthralgia Recurrent UTI Severe asthma Tachycardia Trigger finger of right hand Urinary retention Family History Family History Father No problems noted. Mother No problems noted. Sister Nasopharyngeal cancer Surgical History Surgical History History of carpal tunnel release History of section History of colonoscopy History of cystocele History of hysterectomy History of shoulder surgery History of tonsillectomy Social History Social History Household Members: None Housing: Longterm Alcohol intake: never Smoking Status: Never smoker Tobacco Type: Cigarette Advance Directives: Yes Advance Directives on File: Yes Advance Directives Date on File: 01/08/21 service: No Current occupational status: disabled Current occupation: right and left handed--- HAS [employer] Meds Allergies Allergy/AdvReac Type Severity Reaction Status Date / Time unknown analgesia given Allergy Severe rash Uncoded 12/17/20 14:18 antihi Active Medications: Current Medications Generic Name Dose Route Start Last Admin Trade Name Freq PRN Reason Stop Dose Admin Acetaminophen 650 mg 02/12/21 14:11 Acetaminophen 325 Mg Tablet PO Q4H PRN Pain Albuterol Sulfate 2 puff 02/12/21 14:11 Albuterol Sulfate 90 Mcg 8 Gm Inhaler INHALE Q4H PRN Wheezing Amitriptyline HCl 100 mg 02/12/21 21:00 02/14/21 21:40 Amitriptyline Hcl 50 Mg Tablet PO 100 mg BEDTIME YOBANI Administration Ascorbic Acid 250 mg 02/12/21 14:15 02/14/21 11:34 Ascorbic Acid 250 Mg Tablet PO 250 mg DAILY YOBANI Administration Budesonide 2 puff 02/12/21 14:15 02/14/21 21:41 Budesonide 180 Mcg Aer.Pow.Ba INHALE 2 puff BID [facility] Administration Bupropion HCl 300 mg 02/12/21 14:15 02/14/21 09:38 Bupropion Hcl Xl 300 Mg Tab.Er.24h PO Not Given DAILY [facility] Diphenhydramine HCl 25 mg 02/12/21 14:11 Diphenhydramine Hcl 25 Mg Tablet PO TID PRN Rash Enoxaparin Sodium 40 mg 02/12/21 14:15 02/14/21 09:38 Enoxaparin Sodium 40 Mg/0.4 Ml Syringe SUBCUT Not Given DAILY [facility] Fluticasone/Vilanterol 1 puff 02/12/21 14:15 02/14/21 09:38 Fluticasone/Vilanterol 200/25 Blst.W.Dev INHALE Not Given DAILY [facility] Gabapentin 400 mg 02/12/21 14:15 02/14/21 21:40 Gabapentin 400 Mg Capsule PO 400 mg BID [facility] Administration Guaifenesin/Dextromethorphan 10 ml 02/12/21 15:00 02/15/21 04:28 Guaifenesin Dm 100/10/5 Ml 5 Ml Syrup PO Not Given Q6H [facility] Lamotrigine 200 mg 02/12/21 14:15 02/14/21 21:40 Lamotrigine 100 Mg Tablet PO 200 mg BID [facility] Administration Levothyroxine Sodium 50 mcg 02/12/21 14:15 02/14/21 09:39 Levothyroxine Sodium 50 Mcg Tablet PO Not Given DAILY@0630 YOBANI Magnesium Hydroxide 30 ml 02/12/21 14:11 Milk Of Magnesia 30 Ml Oral.Susp PO Q8H PRN Constipation Montelukast Sodium 10 mg 02/12/21 21:00 02/14/21 21:40 Montelukast Sodium 10 Mg Tablet PO 10 mg BEDTIME YOBANI Administration Non-Formulary Medication 145 mcg 02/12/21 14:15 Linaclotide PO DAILY YOBANI Non-Formulary Medication 0.6 mg 02/12/21 14:15 Liraglutide SUBCUT DAILY YOABNI Non-Formulary Medication 24 mcg 02/12/21 14:15 Lubiprostone [Amitiza] PO BID YOBANI Non-Formulary Medication 800 mg 02/12/21 14:11 Metaxalone PO TID PRN Muscle Pain Non-Formulary Medication 1 drop 02/12/21 14:11 Propylene Glycol [Systane Complete] EYE-BOTH Q4H PRN dry eye(s) Nystatin 1 appl 02/12/21 14:15 02/14/21 21:40 Nystatin Powder 15 Gm Bottle TOPICAL 1 appl BID YOBANI Administration Protocol Omeprazole 40 mg 02/12/21 16:30 02/14/21 17:33 Omeprazole 40 Mg Capsule.Dr PO 40 mg BID@0630,1630 [facility] Administration Ondansetron HCl 4 mg 02/12/21 14:11 Ondansetron Odt 4 Mg Tab.Rapdis TRANSLINGU Q6H PRN Nausea And Vomiting Pharmacy Consult 1 each 02/11/21 14:09 Consult Rx Perform Med Rec MISCELLANE ONCE PRN Consult order Sodium Chloride 2 spray 02/12/21 14:11 Sodium Chloride 0.65 % Nasal 44 Ml Sprbtl NOSTRIL-B Q4H PRN Nasal Congestion Tramadol HCl 25 mg 02/12/21 14:11 Tramadol Hcl 50 Mg Tablet PO Q6H PRN Moderate Pain (Scale Score 5-6) Vitamin D 25 mcg 02/12/21 14:15 02/14/21 09:38 Cholecalciferol (Vitamin D3) 25 Mcg Tablet PO Not Given DAILY [facility] Home Medications Medication Instructions Recorded Confirmed Last Taken Type oxygen-air delivery systems #1 08/24/20 01/16/21 Unknown History linaclotide 145 mcg capsule 145 mcg PO DAILY 12/17/20 02/11/21 Unknown History liraglutide 0.6 mg/0.1 mL (18 mg/3 0.6 mg SUBCUT DAILY 12/17/20 02/11/21 Unknown History mL) subcutaneous pen injector Saba Craft 1 puff INHALATION DAILY 01/09/21 02/11/21 Unknown History amitriptyline 100 mg PO BEDTIME 01/09/21 02/11/21 Unknown History lubiprostone [Amitiza] 24 mcg PO BID 01/09/21 02/11/21 Unknown History albuterol sulfate 2 puff INHALATION Q4H PRN 01/14/21 02/11/21 Unknown History bupropion HCl 300 mg PO DAILY 01/14/21 02/11/21 Unknown History cholecalciferol (vitamin D3) 25 mcg PO DAILY 01/14/21 02/11/21 Unknown History [Vitamin D3] levothyroxine 50 mcg PO DAILY@0630 01/14/21 02/11/21 Unknown History montelukast [Singulair] 10 mg PO BEDTIME 01/14/21 02/11/21 Unknown History naloxone 4 mg INTRANASAL Q3M PRN 01/14/21 02/11/21 Unknown History ondansetron 4 mg PO Q6H PRN 01/14/21 02/11/21 Unknown History tramadol 25 mg PO Q6H PRN 01/14/21 02/11/21 Unknown History Systane Complete 1 drp OPHTHALMIC (EYE) Q4H PRN 01/21/21 02/11/21 Unknown History metaxalone 800 mg PO TID PRN 01/21/21 02/11/21 Unknown History acetaminophen 650 mg PO Q4H PRN 02/11/21 02/11/21 Unknown History ascorbic acid (vitamin C) 250 mg PO DAILY 02/11/21 02/11/21 Unknown History budesonide [Pulmicort Flexhaler] 2 inh INHALATION BID 02/11/21 02/11/21 Unknown History diphenhydramine HCl 25 mg PO TID PRN 02/11/21 02/11/21 Unknown History enoxaparin 40 mg SUBCUT DAILY 02/11/21 02/11/21 Unknown History magnesium hydroxide [Milk of 30 ml PO Q8H PRN 02/11/21 02/11/21 Unknown History Magnesia] nystatin [Nyamyc] 1 appl TOPICAL BID 02/11/21 02/11/21 Unknown History sodium chloride [Saline Nasal] 2 spray INTRANASAL Q4H PRN 02/11/21 02/11/21 Unknown History Physical Exam Vital Signs: Vital Signs: Last Vital Signs Temp 98.9 F 02/14/21 22:50 Pulse 87 02/14/21 22:50 Resp 15 02/14/21 22:50 BP 134/89 02/14/21 22:50 Pulse Ox 98 02/14/21 22:50 Body Mass Index 27.3 She was alert and awake and her into was performed with the help of an vice president planning. Spontaneity and fluency of speech were intact. She was able to provide her history stating that she changed and became depressed after her child diet. She was following simple commands. She knew where she was. Pupils were equal and reactive to light and extraocular muscles were intact. Visual miller are full to confrontation. Face was symmetrical. She was significantly obese. Deep tendon reflexes were absent with flexor plantars. Results Labs CBC & Chem 7: 02/10/21 00:54 02/10/21 00:54 Microbiology Microbiology Results: Microbiology 02/10/21 00:54 Blood - Venous Blood Culture - Final No growth after 5 days. 02/10/21 00:54 Blood - Venous Blood Culture - Final No growth after 5 days. Her noncontrast head CT revealed minimal atrophy and mild microvascular ischemic type of changes. Chest x-ray still revealed recovering airway disease bilaterally. Assessment and Plan (1) Encephalopathy: Problem details: 60 years old woman with multifactorial encephalopathy. Main risk factors included underlying history of psychiatric illness, lupus, and then COVID disease resulting in pneumonia and hypoxemia. At this time she had fluctuating mental status. There is a possibility that COVID related microvascular ischemic disease might be contributing to her illness. This type of illness has no known treatment. Treatment is symptomatic. Further testing including MRI may provide some findings suggesting either COVID related microvascular disease or lupus related. I do not see any obvious indication for lumbar puncture. As she continues to require p.r.n. psychotropic medications, I would recommend obtaining an MRI of brain to see if we could find more clues about her illness. Status: Acute
[2021-02-15] MEDS: Ascorbic Acid 250 MG TABLET PO (11:27)
[2021-02-15] MEDS: Levothyroxine Sodium 50 MCG TABLET PO (11:28)
[2021-02-15] MEDS: Fluticasone/Vilanterol 200/25 BLST.W.DEV 1 PUFF INHALE (11:28)
[2021-02-15] MEDS: Nystatin Powder 15 GM BOTTLE 1 APPL TOPICAL ×2 (11:28→21:26)
[2021-02-15] MEDS: Budesonide 180 MCG AER.POW.BA 2 PUFF INHALE ×2 (11:28→21:26)
[2021-02-15 11:29] VITALS: BP 121/55; PULSE 100; RESP 18; O2SAT 95
--- NOTE | 2021-02-15 11:31 | PC.NURSE ---
Neuro to bedside for evaluation, pt awoke. At this time pt is alert/oriented x 3. Able to follow commands, speech is clear. accepted AM meds. Stand/pivot to bedside commode to void and have small stool. Am care provided and nystatin applied per order. Drinking coffee and awaiting lunch. VSS No new orders at this time from neuro
--- NOTE | 2021-02-15 11:43 | PC.NURSE ---
New order for routine MRI
--- NOTE | 2021-02-15 12:12 | PC.NURSE ---
mri screening form completed by this rn w/ help from specialist field engineer, and faxed.
--- NOTE | 2021-02-15 13:22 | PC.NURSE ---
Pt eating lunch independently. Awaiting MRI, Continues to be alert/oriented. Able to make needs known, danish speaking.
[2021-02-15] MEDS: Omeprazole 40 MG CAPSULE.DR PO (15:37)
--- NOTE | 2021-02-15 15:48 | PC.NURSE ---
ANTHONYN seen pt for MSU, states pt continues to be a [facility]. BHN made aware of pts mental status today while in ED. Pt able to make needs known, follows all commands oriented x 3. No behaviors, med compliant. VSS.
--- NOTE | 2021-02-15 17:51 | PC.NURSE ---
pt on cell phone, NAD. Awaiting dinner
[2021-02-15 19:38] VITALS: BP 114/88; PULSE 107; RESP 20; TEMP 37.1; O2SAT 97
--- NOTE | 2021-02-15 19:54 | PC.NURSE ---
With the help of the interpreter for the deaf this RN went in to assess the patients neurological function and to see if the patient was able to answer questions appropriately. Upon assessment the patient is alert and oriented X4, able to answer questions appropriately and ask questions appropriately. Patient does complain of some midsternal chest pain from coughing but denies being able to cough anything up. Pain stated was 9/10.
[2021-02-15] MEDS: Amitriptyline HCl 50 MG TABLET 100 MG PO (21:25)
[2021-02-15] MEDS: Montelukast Sodium 10 MG TABLET PO (21:26)
[2021-02-15] MEDS: guaiFENesin DM 100/10/5 ML 5 ML SYRUP 10 ML PO (21:26)
[2021-02-15 21:48] VITALS: BP 118/74; PULSE 107; RESP 20; TEMP 36.4; O2SAT 93
--- NOTE | 2021-02-16 01:16 | PC.NURSE ---
Pt resting on HB in NAD, breathing with ease on RA. Pt offers no complaints of pain/discomfort. Pt mentating appropriately, calm cooperative with pt care. Pt bed is in lowest locked position, rails raised, call salvador within reach.
[2021-02-16 03:11] VITALS: BP 117/74; PULSE 104; RESP 18; TEMP 36.4; O2SAT 94
[2021-02-16] MEDS: diphenhydrAMINE HCL 25 MG TABLET PO (03:14)
[2021-02-16] MEDS: guaiFENesin DM 100/10/5 ML 5 ML SYRUP 10 ML PO ×4 (03:14→22:05)
--- NOTE | 2021-02-16 03:16 | PC.NURSE ---
Pt requesting benadryl for itching. Pt medicated per DEC. Pt remains calm and cooperative with pt care. bed in lowest locked position, rails raised, call salvador within reach, bed alarm active and audible.
[2021-02-16] MEDS: Levothyroxine Sodium 50 MCG TABLET PO (06:01)
[2021-02-16] MEDS: Omeprazole 40 MG CAPSULE.DR PO ×2 (06:01→15:38)
[2021-02-16 09:54] VITALS: BP 130/67; PULSE 104; RESP 17; TEMP 36.6; O2SAT 94
[2021-02-16] MEDS: Enoxaparin Sodium 40 MG/0.4 ML SYRINGE SUBCUT (09:57)
[2021-02-16] MEDS: Gabapentin 400 MG CAPSULE PO ×2 (09:57→22:05)
[2021-02-16] MEDS: Cholecalciferol (Vitamin D3) 25 MCG TABLET PO (09:57)
[2021-02-16] MEDS: buPROPion HCl XL 300 MG TAB.ER.24H PO (09:57)
[2021-02-16] MEDS: lamoTRIgine 100 MG TABLET 200 MG PO ×2 (09:57→22:05)
[2021-02-16] MEDS: Fluticasone/Vilanterol 200/25 BLST.W.DEV 1 PUFF INHALE (09:58)
[2021-02-16] MEDS: Nystatin Powder 15 GM BOTTLE 1 APPL TOPICAL ×2 (10:04→22:07)
[2021-02-16] MEDS: Ascorbic Acid 250 MG TABLET PO (10:27)
[2021-02-16] MEDS: Budesonide 180 MCG AER.POW.BA 2 PUFF INHALE ×2 (10:28→22:07)
[2021-02-16 13:48] VITALS: BP 108/60; PULSE 104; RESP 17; TEMP 36.9; O2SAT 93
--- NOTE | 2021-02-16 17:54 | PC.NURSE ---
Pt tolieted with bedside commode affect is good. pt animatedly talking and signing to this loan underwriter. Pt consumed all of luch.
--- NOTE | 2021-02-16 21:00 | PC.NURSE ---
pt ate 75% of dinner. pt observed using cell phone and ipad. eye contact and verbal response is appropriate at this time, pt was calm and cooperative and took meds without issue. respirations are even and unlabored. no signs of distress at this time. call salvador in reach.
[2021-02-16] MEDS: Amitriptyline HCl 50 MG TABLET 100 MG PO (22:05)
[2021-02-16] MEDS: Montelukast Sodium 10 MG TABLET PO (22:05)
[2021-02-17 03:24] VITALS: RESP 16
[2021-02-17 07:09] VITALS: BP 114/65; PULSE 107; RESP 18; O2SAT 93
[2021-02-17] MEDS: guaiFENesin DM 100/10/5 ML 5 ML SYRUP 10 ML PO ×2 (07:27→22:17)
[2021-02-17] MEDS: lamoTRIgine 100 MG TABLET 200 MG PO ×2 (07:27→22:17)
[2021-02-17] MEDS: Enoxaparin Sodium 40 MG/0.4 ML SYRINGE SUBCUT (07:27)
[2021-02-17] MEDS: Levothyroxine Sodium 50 MCG TABLET PO (07:27)
[2021-02-17] MEDS: Nystatin Powder 15 GM BOTTLE 1 APPL TOPICAL ×2 (07:28→22:20)
[2021-02-17] MEDS: Ascorbic Acid 250 MG TABLET PO (07:28)
[2021-02-17] MEDS: Fluticasone/Vilanterol 200/25 BLST.W.DEV 1 PUFF INHALE (07:28)
[2021-02-17] MEDS: Cholecalciferol (Vitamin D3) 25 MCG TABLET PO (07:28)
[2021-02-17] MEDS: Gabapentin 400 MG CAPSULE PO ×2 (07:28→22:17)
[2021-02-17] MEDS: Omeprazole 40 MG CAPSULE.DR PO (07:28)
[2021-02-17] MEDS: buPROPion HCl XL 300 MG TAB.ER.24H PO (07:59)
[2021-02-17] MEDS: Budesonide 180 MCG AER.POW.BA 2 PUFF INHALE ×2 (08:01→22:20)
[2021-02-17 09:21] VITALS: BP 105/56; RESP 18; O2SAT 94
[2021-02-17 11:46] VITALS: BP 97/58; PULSE 99; RESP 16; O2SAT 96
--- NOTE | 2021-02-17 11:57 | PC.NURSE ---
PT IS CALM COOPERATIVE, INTERACTIVE WITH STAFF. SMILING EATING MEALS AND TAKING MEDICATIONS. PT NEEDS BEING MET.
[2021-02-17 14:20] VITALS: BP 100/57; PULSE 18; RESP 108; O2SAT 92
[2021-02-17 16:27] VITALS: BP 106/60; PULSE 104; RESP 16; TEMP 36.7; O2SAT 94
--- NOTE | 2021-02-17 19:29 | PC.NURSE ---
Report received. PT is resting quietly in bed, Calm and cooperative. PT is waiting to find placement.
[2021-02-17] MEDS: Montelukast Sodium 10 MG TABLET PO (22:17)
[2021-02-17] MEDS: diphenhydrAMINE HCL 25 MG TABLET PO (22:17)
[2021-02-17] MEDS: Amitriptyline HCl 50 MG TABLET 100 MG PO (22:17)
[2021-02-18 00:25] VITALS: RESP 16
[2021-02-18 05:05] VITALS: BP 110/70; PULSE 99; RESP 16; TEMP 36.8; O2SAT 96
--- NOTE | 2021-02-18 08:01 | PC.NURSE ---
[facility] called asking for transfer documents, sent via fax to [facility]
[2021-02-18] MEDS: Enoxaparin Sodium 40 MG/0.4 ML SYRINGE SUBCUT (09:26)
[2021-02-18] MEDS: Nystatin Powder 15 GM BOTTLE 1 APPL TOPICAL ×2 (09:26→23:47)
[2021-02-18] MEDS: Gabapentin 400 MG CAPSULE PO ×2 (09:26→23:46)
[2021-02-18] MEDS: Omeprazole 40 MG CAPSULE.DR PO ×2 (09:27→18:39)
[2021-02-18] MEDS: Cholecalciferol (Vitamin D3) 25 MCG TABLET PO (09:27)
[2021-02-18] MEDS: buPROPion HCl XL 300 MG TAB.ER.24H PO (09:27)
[2021-02-18] MEDS: lamoTRIgine 100 MG TABLET 200 MG PO ×2 (09:27→23:46)
[2021-02-18] MEDS: Fluticasone/Vilanterol 200/25 BLST.W.DEV 1 PUFF INHALE (09:27)
[2021-02-18] MEDS: Budesonide 180 MCG AER.POW.BA 2 PUFF INHALE ×2 (09:48→23:47)
[2021-02-18] MEDS: Ascorbic Acid 250 MG TABLET PO (09:48)
[2021-02-18] MEDS: Levothyroxine Sodium 50 MCG TABLET PO (10:52)
[2021-02-18 11:16] VITALS: BP 107/65; PULSE 105; RESP 18; O2SAT 92
[2021-02-18 14:23] VITALS: BP 110/60; PULSE 100; RESP 16; O2SAT 98
[2021-02-18 17:21] LABS: Glucose, Whole Blood 117 mg/dL (60-115)
--- NOTE | 2021-02-18 17:22 | PC.NURSE ---
pt states she feels shakey, checked blood sugar, normal value obtained. Pt awaits dinner
--- NOTE | 2021-02-18 21:06 | PC.NURSE ---
PT OOB to bedside commode. In good mood speaking in maori. Ate sandwich and fluids at side of bed tonight. Currently resting comfortably in bed.
[2021-02-18] MEDS: Montelukast Sodium 10 MG TABLET PO (23:46)
[2021-02-18] MEDS: Amitriptyline HCl 50 MG TABLET 100 MG PO (23:46)
[2021-02-18] MEDS: guaiFENesin DM 100/10/5 ML 5 ML SYRUP 10 ML PO (23:47)
[2021-02-19 00:04] VITALS: BP 135/84; PULSE 101; RESP 17; TEMP 37.1; O2SAT 95
[2021-02-19 05:10] VITALS: BP 103/57; PULSE 100; RESP 18; O2SAT 92
[2021-02-19 09:00] VITALS: RESP 18
[2021-02-19] MEDS: Gabapentin 400 MG CAPSULE PO ×2 (09:56→21:08)
[2021-02-19] MEDS: Omeprazole 40 MG CAPSULE.DR PO ×3 (09:56→17:31)
[2021-02-19] MEDS: Ascorbic Acid 250 MG TABLET PO (09:56)
[2021-02-19] MEDS: Cholecalciferol (Vitamin D3) 25 MCG TABLET PO (09:56)
[2021-02-19] MEDS: buPROPion HCl XL 300 MG TAB.ER.24H PO (09:56)
[2021-02-19] MEDS: lamoTRIgine 100 MG TABLET 200 MG PO ×2 (09:56→21:08)
[2021-02-19] MEDS: Levothyroxine Sodium 50 MCG TABLET PO (09:57)
[2021-02-19] MEDS: Fluticasone/Vilanterol 200/25 BLST.W.DEV 1 PUFF INHALE (09:57)
[2021-02-19] MEDS: Budesonide 180 MCG AER.POW.BA 2 PUFF INHALE ×2 (09:57→21:08)
[2021-02-19] MEDS: Enoxaparin Sodium 40 MG/0.4 ML SYRINGE SUBCUT (09:57)
[2021-02-19] MEDS: Nystatin Powder 15 GM BOTTLE 1 APPL TOPICAL ×2 (09:57→21:08)
--- NOTE | 2021-02-19 11:49 | PC.NURSE ---
Pt denies complaints, requested and given coffee, lunch tray ordered. Pt resting in bed, bed alarm for pt safety.
--- NOTE | 2021-02-19 15:38 | PC.NURSE ---
Pt sleeping on and off throughout the shift, easily awakes to verbal stimuli.
--- NOTE | 2021-02-19 17:04 | PC.NURSE ---
Pt asssited to commode, washed self w/ wash clothes, given new gown, sheets changed. Medicated. per dec. Pleasant, calm and cooperative.
[2021-02-19] MEDS: guaiFENesin DM 100/10/5 ML 5 ML SYRUP 10 ML PO (17:31)
[2021-02-19 21:07] VITALS: BP 106/70; PULSE 98; RESP 16; TEMP 36.6; O2SAT 98
[2021-02-19] MEDS: Montelukast Sodium 10 MG TABLET PO (21:07)
[2021-02-19] MEDS: Amitriptyline HCl 50 MG TABLET 100 MG PO (21:08)
--- NOTE | 2021-02-19 21:17 | PC.NURSE ---
Pt had large loose BM. Requested and given water pitcher. Medicated per emar.
--- NOTE | 2021-02-20 01:46 | PC.NURSE ---
THIS RN CALLED TO BEDSIDE BY STUCCO MASON AND WITNESSED PT TO BE SUPINE ON THE FLOOR AFTER HAVING AN UNWITNESSED FALL. PT A/O X3, ANSWERING QUESTIONS, FOLLOWING COMMANDS. NO INJURY TO BE NOTED. PT ASSISTED TO SITTING POSITION, ASSISTED TO STANDING, AND TRANSFERED TO BED BY THIS RN, PCT, AND SECURITY. MD AT BEDSIDE. NURSING FOOD PRODUCTION MACHINE OPERATOR MADE AWARE, INCIDENT REPORT COMPLETED.
--- NOTE | 2021-02-20 01:55 | PC.NURSE ---
pt of to CT ADEN, pt is alert and oriented, pt follows commands and able to move all extremities voluntarily. pt speaking in full sentences, no slurred speech noted. pt complaining of headache, pt to be medicated with Tylenol
[2021-02-20] MEDS: Acetaminophen 325 MG TABLET 650 MG PO ×2 (02:26→22:17)
[2021-02-20 05:34] VITALS: RESP 16
[2021-02-20] MEDS: Levothyroxine Sodium 50 MCG TABLET PO (07:43)
[2021-02-20] MEDS: Omeprazole 40 MG CAPSULE.DR PO ×2 (07:43→17:48)
[2021-02-20] MEDS: guaiFENesin DM 100/10/5 ML 5 ML SYRUP 10 ML PO ×3 (07:43→17:48)
[2021-02-20] MEDS: Enoxaparin Sodium 40 MG/0.4 ML SYRINGE SUBCUT (08:02)
[2021-02-20] MEDS: Cholecalciferol (Vitamin D3) 25 MCG TABLET PO (08:02)
[2021-02-20] MEDS: buPROPion HCl XL 300 MG TAB.ER.24H PO (08:02)
[2021-02-20] MEDS: Gabapentin 400 MG CAPSULE PO ×2 (08:02→22:15)
[2021-02-20] MEDS: lamoTRIgine 100 MG TABLET 200 MG PO ×2 (08:02→22:16)
[2021-02-20] MEDS: Budesonide 180 MCG AER.POW.BA 2 PUFF INHALE (08:03)
[2021-02-20] MEDS: Nystatin Powder 15 GM BOTTLE 1 APPL TOPICAL ×2 (08:03→22:16)
[2021-02-20] MEDS: Fluticasone/Vilanterol 200/25 BLST.W.DEV 1 PUFF INHALE (08:03)
[2021-02-20] MEDS: Ascorbic Acid 250 MG TABLET PO (08:40)
--- NOTE | 2021-02-20 15:12 | PC.NURSE ---
PT SLEEPING IN HOSPITAL BED AT THIS TIME, RESP EVEN, NONLABOURED.
[2021-02-20 16:32] VITALS: BP 94/56; PULSE 104; RESP 15; O2SAT 94
[2021-02-20] MEDS: Amitriptyline HCl 50 MG TABLET 100 MG PO (22:16)
[2021-02-20] MEDS: Montelukast Sodium 10 MG TABLET PO (22:16)
--- NOTE | 2021-02-20 23:06 | PC.NURSE ---
Report taken from María, this RN resuming care. Pt remains a mohinder-psych bed search at this time. ED techs at bedside providing juan care and a complete bed change. Continue to monitor.
--- NOTE | 2021-02-20 23:11 | PC.NURSE ---
PATIENT GOT UP TO USE THE BED SIDE COMMODE WITH 2 ASSIST ,PATIENT IS IN GOOD SPIRITS VOID LARGE AMOUNT ON COMMODE .
[2021-02-20 23:12] VITALS: BP 92/69; PULSE 95; RESP 17; TEMP 36.6; O2SAT 96
[2021-02-21 01:00] VITALS: RESP 16
[2021-02-21 02:00] VITALS: RESP 16
[2021-02-21] MEDS: Omeprazole 40 MG CAPSULE.DR PO ×2 (05:59→17:04)
[2021-02-21] MEDS: guaiFENesin DM 100/10/5 ML 5 ML SYRUP 10 ML PO (05:59)
[2021-02-21] MEDS: Levothyroxine Sodium 50 MCG TABLET PO (05:59)
[2021-02-21 06:02] VITALS: BP 112/63; PULSE 95; RESP 20
--- NOTE | 2021-02-21 06:03 | PC.NURSE ---
Pt sleeping throughout the night without difficulty. Pt medicated with morning meds. VSS. Awaiting breakfast.
--- NOTE | 2021-02-21 06:52 | PC.NURSE ---
REPORT TAKEN FROM GIOVANY PRADO. PATIENT SLEEPING AT THIS TIME, WILL ALLOW TO SLEEP. BREAKFAST AT BEDSIDE. STAFF ABLE TO TO VIEW PATIENT AT ALL TIMES.
[2021-02-21 08:46] VITALS: BP 94/53; PULSE 94; RESP 18; O2SAT 95
[2021-02-21] MEDS: buPROPion HCl XL 300 MG TAB.ER.24H PO (08:50)
[2021-02-21] MEDS: Cholecalciferol (Vitamin D3) 25 MCG TABLET PO (08:50)
[2021-02-21] MEDS: Enoxaparin Sodium 40 MG/0.4 ML SYRINGE SUBCUT (08:50)
[2021-02-21] MEDS: lamoTRIgine 100 MG TABLET 200 MG PO ×2 (08:50→21:18)
[2021-02-21] MEDS: Gabapentin 400 MG CAPSULE PO ×2 (08:50→21:18)
[2021-02-21] MEDS: Ascorbic Acid 250 MG TABLET PO (08:50)
[2021-02-21] MEDS: Nystatin Powder 15 GM BOTTLE 1 APPL TOPICAL (08:51)
[2021-02-21 16:00] VITALS: BP 91/51; PULSE 99; RESP 15; TEMP 36.6
--- NOTE | 2021-02-21 16:17 | PC.NURSE ---
PATIENT WAS IN GOOD SPRITS ,PATIENT WAS ASSISTED WITH A BATH ,PATIENT DID MOST OF HER CARE .
[2021-02-21 21:00] VITALS: BP 110/70; PULSE 80; RESP 15; O2SAT 96
[2021-02-21] MEDS: Acetaminophen 325 MG TABLET 650 MG PO (21:18)
[2021-02-21] MEDS: Amitriptyline HCl 50 MG TABLET 100 MG PO (21:19)
[2021-02-21] MEDS: Montelukast Sodium 10 MG TABLET PO (21:19)
--- NOTE | 2021-02-22 08:33 | MHC.CM.ED ---
Patient remains in ER. Has been cleared by [facility]. T/W is attempting to obtain a copy of [facility] evemmett. Patient is from [facility]. Clinical updates sent via [employer]. Continue to monitor for d/c needs.
[2021-02-22] MEDS: Ascorbic Acid 250 MG TABLET PO (08:46)
[2021-02-22] MEDS: Enoxaparin Sodium 40 MG/0.4 ML SYRINGE SUBCUT (08:46)
[2021-02-22] MEDS: Levothyroxine Sodium 50 MCG TABLET PO (08:46)
[2021-02-22] MEDS: buPROPion HCl XL 300 MG TAB.ER.24H PO (08:46)
[2021-02-22] MEDS: lamoTRIgine 100 MG TABLET 200 MG PO ×2 (08:46→20:53)
[2021-02-22] MEDS: Cholecalciferol (Vitamin D3) 25 MCG TABLET PO (08:46)
[2021-02-22] MEDS: Gabapentin 400 MG CAPSULE PO ×2 (08:46→20:53)
[2021-02-22] MEDS: Omeprazole 40 MG CAPSULE.DR PO (08:46)
[2021-02-22] MEDS: guaiFENesin DM 100/10/5 ML 5 ML SYRUP 10 ML PO ×3 (08:47→20:54)
--- NOTE | 2021-02-22 10:08 | PC.NURSE ---
pt sitting up in bed, eating. awaiting transfer to [facility].
[2021-02-22 11:41] VITALS: PULSE 111; O2SAT 95
[2021-02-22] MEDS: Fluticasone/Vilanterol 200/25 BLST.W.DEV 1 PUFF INHALE (11:41)
[2021-02-22] MEDS: Budesonide 180 MCG AER.POW.BA 2 PUFF INHALE (11:41)
--- NOTE | 2021-02-22 12:42 | MHC.CM.ED ---
Copy of [facility] hyman obtained. Clinical updates sent to Gina garcía [facility] via [employer]. They are willing to accept patient once insurance auth has been obtained from [facility]. Continue to monitor for d/c needs.
[2021-02-22 13:15] VITALS: BP 120/77; PULSE 104; RESP 18; O2SAT 98
--- NOTE | 2021-02-22 15:38 | MHC.CM.ED ---
Gina garcía [facility] has obtained insurance auth. Patient can leave at 430pm. [facility] booked. Med nec with chart. Patient, son John, Dr Craven and Hannah PRADO aware. Continue to monitor for d/c needs.
--- NOTE | 2021-02-22 17:05 | PC.NURSE ---
pt loaded on to ems stretcher. pt go to exit and was trying to get off stretcher. pt brought back to room. pt refusing to leave stating she wants to shower. staff attempting to assist pt to feel more comfortable.
--- NOTE | 2021-02-22 17:22 | PC.NURSE ---
DINNER ORDERED. PT CLEANING UP WITH PCT. WILL ATTEMPT TRANSFER LATER.
--- NOTE | 2021-02-22 17:23 | PC.NURSE ---
LATE ENTRY ATTEMPT TO DOCUMENT REFUSAL OF COUGH MEDICATION AT 1200 UNABLE TO DOCUMENT
--- NOTE | 2021-02-22 18:02 | MHC.CM.ED ---
At 1700, ambulance here to transport pt to [facility], pt refusing to go now. States she wants a shower and needs to eat. States she has been waiting all day. Many staff tried to convince her to go, but pt refused. Pt brought back to her bed. CM spoke with pt via asl interpreter. Pt states she has been waiting all day and she will go tomorrow. States she needs to shower. Explained that we do not have a shower in the ED. Pt will to wash in the bathroom with a sink. SULEMAN Varner assisted pt with bathing at sink. Pt returned and was very happy and stated she is clean and does not smell. Pt continues to tell CM that she will leave in the morning, but not tonight. Requesting dinner. Dinner ordered. Pay Agent remains at bedside. Pt is calm and cooperative. Pt states she was supposed to get an X-ray of her R knee, s/p fall from yesterday. CM spoke with Devora GILL to facilitate this. Pt very pleased and assures CM that she will leave in the am. GREG spoke with nathaly Ramirez at [facility]. Updated on need for x-ray and pt request to eat and go in the am. Liaison agreeable to plan. Will book ambulance for 9am at [facility] request for staff convenience at [facility]. Charge nurse and RN aware. Devora GILL aware.
--- NOTE | 2021-02-22 18:33 | MHC.CM.ED ---
CM booked [facility] for transportation to [facility] of tomorrow @9am. Pt aware and willing to go to [facility] then. CM will continue to follow for d/c needs
[2021-02-22 18:57] VITALS: RESP 20; O2SAT 95
[2021-02-22] MEDS: Montelukast Sodium 10 MG TABLET PO (20:53)
[2021-02-22] MEDS: Amitriptyline HCl 50 MG TABLET 100 MG PO (20:54)
[2021-02-22 21:00] VITALS: BP 111/69; PULSE 110; RESP 18; TEMP 36.6; O2SAT 92
--- NOTE | 2021-02-22 21:20 | MHC.CM.ED ---
Addendum entered by Ellie Babb 02/22/21 21:22: Knee x-ray with degenerative changes only. No fx or dislocation. Original Note: Pt is very pleasant and cooperative. Ate 100% of dinner. Agreeable to plan of discharge tomorrow at 9am to [facility] . CM to follow for d/c needs.
[2021-02-23] MEDS: diphenhydrAMINE HCL 25 MG TABLET PO (00:36)
[2021-02-23] MEDS: guaiFENesin DM 100/10/5 ML 5 ML SYRUP 10 ML PO ×2 (00:36→06:24)
[2021-02-23 03:50] VITALS: PULSE 79; RESP 18
--- NOTE | 2021-02-23 03:57 | PC.NURSE ---
pt has periods of calmness and then abrupty gets aggressive and pulls all equiptment off of her. pt is having visual hallucinations, she thinks she is petting a cat that is not in the room. pt calling the cat with cat calls.
--- NOTE | 2021-02-23 04:28 | PC.NURSE ---
pt has been pleasant thur the night resting comfortably, taking meds with no difficutly. pt visable to staff and has been calm and cooperative.
[2021-02-23] MEDS: Omeprazole 40 MG CAPSULE.DR PO (06:24)
[2021-02-23] MEDS: Levothyroxine Sodium 50 MCG TABLET PO (06:24)
[2021-02-23 06:28] VITALS: BP 103/79; PULSE 108; RESP 18; O2SAT 95
[2021-02-23 06:34] VITALS: RESP 18
--- NOTE | 2021-02-23 06:36 | PC.NURSE ---
nystatin powder was not doc by prev shift. if not documented it was not given.
--- NOTE | 2021-02-23 09:11 | MHC.CM.ED ---
[facility] arrived to transport patient to [facility]. Patient discharged.
== END 2021-02-23 10:20 | disposition skilled nursing facility (03) ==
PROVIDERS: Physician Assistant; Psychiatry & Neurology Psychiatry; Emergency Provider Emergency Medicine
DX: R41.82 Altered mental status, unspecified (principal); G93.40 Encephalopathy, unspecified; R44.1 Visual hallucinations; R45.1 Restlessness and agitation; R00.0 Tachycardia, unspecified; M25.561 Pain in right knee; L29.9 Pruritus, unspecified; R29.6 Repeated falls; E11.9 Type 2 diabetes mellitus without complications; J44.9 Chronic obstructive pulmonary disease, unspecified; K21.9 Gastro-esophageal reflux disease without esophagitis; M32.9 Systemic lupus erythematosus, unspecified; Z86.16 Personal history of COVID-19; Z99.81 Dependence on supplemental oxygen; Z79.899 Other long term (current) drug therapy
CPT/HCPCS: 36415; 51701; 70450; 70551; 73562; 80048; 80175; 81001; 81003; 82140; 82947; 83605; 84443; 85025; 87040; 87635; 94640; 96360; 96372; 97162; 99285; J1200; J1650; J2060; Q0163

== ENCOUNTER 2021-08-06 11:03 | Emergency (ER) | payer OTHER, SELFPAY ==
--- NOTE | ~2021-08-06 | XR_ITS ---
EXAMINATION: XR CHEST CLINICAL INFORMATION: Chest pain COMPARISON: Chest radiographs 02/08/2021, 01/21/2021, 01/14/2021, 01/08/2021 TECHNIQUE: Portable upright AP view of the chest was obtained. FINDINGS: There is no pneumothorax or pneumomediastinum. No pleural reaction or effusion. The heart is normal in size and the hilar and mediastinal contours are stable. Scattered airspace opacities are improved from most recent exam 02/08/2021. There is some residual coarsening of the bronchovascular markings right infrahilar region and right lateral base, and left infrahilar region and left base. Linear scarring versus disc atelectasis again noted lower left lung field. There are no air bronchograms. No acute bony abnormality. Orthopedic anchors again seen overlying left humerus and bulky calcific tendinosis overlying right humerus. XR/XR chest 1V IMPRESSION: 1. Patchy bilateral airspace opacities decreased since prior exam 02/08/2021. 2. No pneumothorax, pneumomediastinum, or effusion.
[2021-08-06 11:19] VITALS: BP 110/60; BP 155/86; PULSE 98; RESP 18; TEMP 36.9; O2SAT 100; O2SAT 98; BMI 42.5
--- NOTE | 2021-08-06 11:28 | ED.GENADULT ---
HPI - General Adult General Chief complaint: General Medical Stated complaint: cp Time Seen by Provider: 08/06/21 11:26 Source: patient Limitations: language barrier (Battery Tester And Repairer used) History of Present Illness HPI narrative: This is a 61-year-old female with history of COPD, encephalopathy, UTI, COVID, systemic lupus erythematosus, polyarthralgia tachycardia, obesity, GERD, depression anxiety, and hypothyroidism, who became dizzy this morning. The patient felt like she needed to urinate and she tried to go the bathroom but felt like her heart was going fast and that she was lightheaded. She also developed a burning feeling in her chest and some shortness of breath. The chest pain and burning feeling mostly resolved now. She denies any abdominal pain, nausea or vomiting. She has noted a strong odor to her urine for about a month as well as urinary dysuria, and notes that she has been on 4 different antibiotics. She has not used any nebulizer or inhaler this morning. She denies any swelling in her extremities. She denies any usual nausea or sweats. Related Data Home Medications Medication Instructions Recorded Confirmed oxygen-air delivery systems #1 08/24/20 07/06/21 amitriptyline 100 mg tablet 100 mg PO BEDTIME 01/09/21 08/06/21 fluticasone furoate 200 1 puff INHALATION DAILY 01/09/21 08/06/21 mcg-vilanterol 25 mcg/dose inhalation powder (Breo Ellipta) albuterol sulfate 90 mcg/actuation 2 puff INHALATION Q4H PRN 01/14/21 08/06/21 aerosol inhaler bupropion HCl 300 mg 24 hr tablet, 300 mg PO DAILY 01/14/21 08/06/21 extended release cholecalciferol (vitamin D3) 25 25 mcg PO DAILY 01/14/21 08/06/21 mcg (1,000 unit) capsule (Vitamin D3) levothyroxine 50 mcg tablet 50 mcg PO DAILY@0630 01/14/21 08/06/21 montelukast 10 mg tablet 10 mg PO BEDTIME 01/14/21 08/06/21 (Singulair) naloxone 4 mg/actuation nasal spray 4 mg INTRANASAL Q3M PRN 01/14/21 08/06/21 metaxalone 800 mg tablet 800 mg PO Q8H PRN 01/21/21 08/06/21 budesonide 180 mcg/actuation 2 inh INHALATION BID 02/11/21 08/06/21 breath activated powder inhaler (Pulmicort Flexhaler) sodium chloride 0.65 % nasal spray 2 spray INTRANASAL Q4H PRN 02/11/21 08/06/21 aerosol (Saline Nasal) acetaminophen 325 mg tablet 650 mg PO Q4H PRN 07/06/21 08/06/21 gabapentin 300 mg capsule 600 mg PO BID 08/06/21 08/06/21 ketorolac 0.5 % eye drops 1 drp OPHTHALMIC (EYE) Q6H PRN 08/06/21 08/06/21 liraglutide 0.6 mg/0.1 mL (18 mg/3 0.6 mg SUBCUT DAILY 08/06/21 08/06/21 mL) subcutaneous pen injector (Victoza 2-Scott) loratadine 10 mg tablet 10 mg PO DAILY 08/06/21 08/06/21 sumatriptan succinate 25 mg tablet 25 mg PO Q8H PRN 08/06/21 08/06/21 trazodone 50 mg tablet 1 tab PO BEDTIME 08/06/21 08/06/21 Previous Rx's Medication Instructions Recorded pantoprazole 40 mg tablet,delayed 40 mg PO BID 90 Days #180 tab 08/26/20 release (Protonix) shower seat #1 ea 11/23/20 wheelchair #1 ea 11/23/20 miscellaneous medical supply #1 ea 12/22/20 lubiprostone 24 mcg capsule 24 mcg PO BID 90 Days #180 cap 07/06/21 (Amitiza) lamotrigine 200 mg tablet 200 mg PO BID 30 Days #60 tab 07/08/21 (Lamictal) levofloxacin 500 mg tablet 500 mg PO DAILY #6 tab 08/06/21 phenazopyridine 200 mg tablet 200 mg PO TID #6 tab 08/06/21 (Pyridium) Allergies Allergy/AdvReac Type Severity Reaction Status Date / Time unknown analgesia given Allergy Severe rash Uncoded 07/06/21 08:30 antihi Review of Systems Review of Systems: Yes all other systems are reviewed and are negative Constitutional: Constitutional: Reports as per HPI and Denies fever(s) Eyes: Eyes: Reports as per HPI and Reports no additional eye complaints ENT: Reports system reviewed and no additional complaints, except as documented, Reports as per HPI, Reports dizziness, Denies nasal congestion, Denies nasal discharge and Denies sore throat Cardiovascular: Cardiovascular: Reports as per HPI, Reports chest pain and Reports dyspnea Respiratory: Respiratory: Reports as per HPI, Denies cough and Reports dyspnea Gastrointestinal: Gastrointestinal: Reports as per HPI, Denies abdominal pain, Denies diarrhea and Denies vomiting Genitourinary: Genitourinary: Reports as per HPI, Denies hematuria, Denies urinary frequency and Reports dysuria Musculoskeletal: Musculoskeletal: Reports no additional musculoskeletal complaints and Denies numbness Integumentary/Breasts: Skin/Breast: Reports as per HPI and Denies rash Neurologic: Reports as per HPI, Reports dizziness, Denies focal weakness, Denies numbness and Denies Sensory deficit (Neuro) Psychiatric: Psychiatric: Reports no additional psychiatric complaints and Reports as per HPI Endocrine: Endocrine: Reports no additional endocrine complaints and Reports as per HPI Hematologic/Lymphatic: Hematologic/Lymphatic: Reports no additional hematologic/lymphatic complaints, Reports as per HPI and Reports other (No peripheral edema) [facility] Past Medical History Medical History (Updated 08/06/21 @ 13:50 by Richard Draper MD) Acute and chronic respiratory failure with hypoxia Asthma-COPD overlap syndrome Bipolar 1 disorder COPD (chronic obstructive pulmonary disease) COVID-19 Depression with anxiety Diabetes Eosinophilia GERD (gastroesophageal reflux disease) Hemangioma Hypothyroidism Hypovitaminosis D Insomnia Lumbar degenerative disc disease Lupus Lupus (systemic lupus erythematosus) Moderate recurrent major depression Morbid obesity with BMI of 40.0-44.9, adult Neck mass Obesity Oxygen dependent Polyarthralgia Recurrent UTI Severe asthma Tachycardia Trigger finger Trigger finger of right hand Urinary retention Surgical History History of carpal tunnel release History of section History of colonoscopy History of cystocele History of hysterectomy History of shoulder surgery History of tonsillectomy Family History Family History Father No problems noted. Mother No problems noted. Sister Nasopharyngeal cancer Social History Social History Household Members: None Household Members Other:: per patient, from home but was at SNF for rehab Housing: Longterm Do you presently have visiting nurse or other home services: Yes (COMMERCIAL SALES CONSULTANT at home) Alcohol intake: never Patient Tobacco Use Status: Former Tobacco user Tobacco use type: Cigarette e-Cigarette/Vaping Use: Never Used Second Hand Smoke Exposure: No Use of substances other than those prescribed or required for medical reasons: No Advance Directives: Yes Advance Directives on File: Yes Advance Directives Date on File: 01/08/21 service: No Current occupational status: disabled Current occupation: right and left handed--- 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 Physical Exam Vital Signs: Vital Signs: Last Vital Signs Temp 97.9 F 08/06/21 14:41 Pulse 96 08/06/21 14:41 Resp 12 08/06/21 14:41 BP 127/75 08/06/21 14:41 Pulse Ox 100 08/06/21 14:41 Oxygen Flow Rate 2 08/06/21 11:19 Body Mass Index 42.5 Const: Other: Patient is somewhat depressed and anxious appearing General: cooperative, no acute distress and alert Orientation/consciousness: patient oriented x3 HENMT: Head: Yes normal to inspection Eyes: General: appearance normal, both eyes and all related structures Eyelids: Yes eyelids normal Conjunctivae: conjunctivae normal Pupils: Equal, round and reactive pupils present Neck: Neck: Yes normal visual inspection and Yes supple Chest: Chest palpation & inspection: normal inspection of the chest Resp: Effort & Inspection: normal respiratory effort Auscultation: clear to auscultation bilaterally Cardio: Rate: regular rate Rhythm: regular rhythm Heart sounds: S1 normal heart sound present, S2 normal heart sound present, no gallops, no murmurs and no rubs GI: Other: Moderately obese Palpation (GI): Soft to palpation, Tenderness to palpation present (GI) (Mild diffuse) and Other GI palpation findings present (Non-distended) Auscultation: normal bowel sounds Skin: General skin exam: no rashes or lesions noted Neuro: General: patient oriented x3, no focal motor deficits and CN's II-XI intact bilaterally Cranial nerves: Yes Equal, round and reactive pupils present Cognition (Neuro): normal cognition Motor exam (neuro): 5/5 motor strength present throughout Sensory Exam: No Sensory deficit (Neuro) Extrem: General: Yes normal to inspection and Yes no pedal edema Psych: Appearance: grossly normal Affect: normal affect Medical Decision Making MDM Narrative Medical decision making narrative: Upon re-evaluation at 13:48, the patient is asleep. Heart rate is improved. Urinalysis does show evidence of UTI. Will start the patient on Levaquin, urine culture sent. She chest x-ray, EKG, labs otherwise unremarkable. Patient is safe for outpatient follow-up. Patient has had tachycardia in the past. No clinical suspicion for pulmonary embolism. Patient not anemic. Lab Data Lab results reviewed: Yes I reviewed the patient's lab results. Result diagrams: 08/06/21 11:35 08/06/21 11:35 Labs: Lab Results 08/06/21 08/06/21 08/06/21 Range/Units 11:35 11:35 11:35 WBC 6.4 (4.8-10.8) X10*3/uL RBC 3.99 L (4.20-5.50) X10*6/uL Hgb 11.7 L (12.0-16.0) g/dl Hct 37.3 (37-47) % MCV 93.5 (80-98) fL MCH 29.3 (27.0-33.0) pg MCHC 31.4 (31.0-35.0) g/dl RDW 14.3 (11.0-16.0) % Plt Count 300 D (160-400) X10*3/uL MPV 9.3 L (9.4-12.3) fL Immature Gran % (Auto) 0.5 H (0.0-0.4) % Neut % (Auto) 63.4 (45-73) % Lymph % (Auto) 18.8 L (20-40) % [place] % (Auto) 7.5 (2-11) % Eos % (Auto) 9.2 H (0-4) % Baso % (Auto) 0.6 (0-2) % Lymph # (Auto) 1.2 (1.2-4.9) X10*3/uL [place] # (Auto) 0.5 (0.1-1.2) X10*3/uL Eos # (Auto) 0.6 H (0.0-0.4) X10*3/uL Baso # (Auto) 0.0 (0.0-0.2) X10*3/uL Abs Immat Gran (auto) 0.03 (0.00-0.03) X10*3/uL Absolute Neuts (auto) 4.1 (2.0-8.3) X10*3/uL Absolute Nucleated RBC 0.000 (0.0-0.012) X10*3/uL Nucleated RBC % (auto) 0.0 (0.0-0.2) /100WBC Sodium 144 (135-145) mmol/L Potassium 4.7 (3.3-5.1) mmol/L Chloride 109 H (96-108) mmol/L Carbon Dioxide 29 (22-29) mmol/L Anion Gap 11 L (12-20) BUN 9 (9-16) mg/dL Creatinine 0.89 (0.5-1.4) mg/dL Estim Creat Clear Calc 79.4 Estimated GFR > 60 Random Glucose 101 (60-115) mg/dL Calcium 9.2 D (8.4-10.2) mg/dL Total Bilirubin 0.2 (0.0-1.0) mg/dL AST 16 D (5-31) U/L ALT 11 (0-31) U/L Alkaline Phosphatase 102 (39-117) U/L Troponin I High Sens < 3.5 (<3.5-17.0) ng/L Total Protein 6.2 L (6.5-8.0) g/dL Albumin 3.8 (3.5-5.0) g/dL Urine Color Urine Appearance Urine pH (5.0-8.0) Ur Specific [place] (1.005-1.025) Urine Protein (NEG-TRACE) MG/DL Urine Glucose (UA) (NEG) MG/DL Urine Ketones (NEG) MG/DL Urine Blood (NEG) Urine Nitrite (NEG) Ur Leukocyte Esterase (NEG) Urine RBC (0) /HPF Urine WBC (0-4) /HPF Ur Squamous Epith Cells /LPF Urine Bacteria /LPF Urine Mucus /LPF 08/06/21 Range/Units 12:42 WBC (4.8-10.8) X10*3/uL RBC (4.20-5.50) X10*6/uL Hgb (12.0-16.0) g/dl Hct (37-47) % MCV (80-98) fL MCH (27.0-33.0) pg MCHC (31.0-35.0) g/dl RDW (11.0-16.0) % Plt Count (160-400) X10*3/uL MPV (9.4-12.3) fL Immature Gran % (Auto) (0.0-0.4) % Neut % (Auto) (45-73) % Lymph % (Auto) (20-40) % [place] % (Auto) (2-11) % Eos % (Auto) (0-4) % Baso % (Auto) (0-2) % Lymph # (Auto) (1.2-4.9) X10*3/uL [place] # (Auto) (0.1-1.2) X10*3/uL Eos # (Auto) (0.0-0.4) X10*3/uL Baso # (Auto) (0.0-0.2) X10*3/uL Abs Immat Gran (auto) (0.00-0.03) X10*3/uL Absolute Neuts (auto) (2.0-8.3) X10*3/uL Absolute Nucleated RBC (0.0-0.012) X10*3/uL Nucleated RBC % (auto) (0.0-0.2) /100WBC Sodium (135-145) mmol/L Potassium (3.3-5.1) mmol/L Chloride (96-108) mmol/L Carbon Dioxide (22-29) mmol/L Anion Gap (12-20) BUN (9-16) mg/dL Creatinine (0.5-1.4) mg/dL Estim Creat Clear Calc Estimated GFR Random Glucose (60-115) mg/dL Calcium (8.4-10.2) mg/dL Total Bilirubin (0.0-1.0) mg/dL AST (5-31) U/L ALT (0-31) U/L Alkaline Phosphatase (39-117) U/L Troponin I High Sens (<3.5-17.0) ng/L Total Protein (6.5-8.0) g/dL Albumin (3.5-5.0) g/dL Urine Color YELLOW Urine Appearance HAZY Urine pH 7.5 (5.0-8.0) Ur Specific [place] 1.010 (1.005-1.025) Urine Protein NEG (NEG-TRACE) MG/DL Urine Glucose (UA) NEG (NEG) MG/DL Urine Ketones NEG (NEG) MG/DL Urine Blood NEG (NEG) Urine Nitrite POS H (NEG) Ur Leukocyte Esterase 3+ H (NEG) Urine RBC 1-4 (0) /HPF Urine WBC 30-49 H (0-4) /HPF Ur Squamous Epith Cells 1+ /LPF Urine Bacteria 2+ /LPF Urine Mucus 1+ /LPF Imaging Data Chest x-ray: Radiologist's impression: IMPRESSION: ? 1. Patchy bilateral airspace opacities decreased since prior exam 02/08/2021. 2. No pneumothorax, pneumomediastinum, or effusion. ECG Data Attestation: I personally reviewed and interpreted this ECG as follows: Interpretation: Sinus rhythm with a rate of 98. RSR pattern in lead V1 and V2. Otherwise normal EKG Discharge Plan Discharge Clinical Impression: Recurrent UTI, Dizziness Patient Disposition: Home, Self-Care Instructions: Lightheadedness (ED), Urinary Tract Infection in Older Adults (ED) Additional Instructions: Drink plenty of water. Use the Levaquin and Pyridium as prescribed. Follow up with her primary care physician. Return for any new or worsened symptoms, such as fever, vomiting Prescriptions: New levofloxacin 500 mg tablet 500 mg PO DAILY Qty: 6 RF: 0 phenazopyridine [Pyridium] 200 mg tablet 200 mg PO TID Qty: 6 RF: 0 No Action pantoprazole [Protonix] 40 mg tablet,delayed release (DR/EC) 40 mg PO BID 90 Days Qty: 180 RF: 3 (DME) wheelchair See Rx Instructions .Route .MEDSUPPLY Qty: 1 RF: 0 (DME) shower seat See Rx Instructions .Route .MEDSUPPLY Qty: 1 RF: 0 (DME) miscellaneous medical supply Misc See Rx Instructions .ROUTE .MEDSUPPLY Qty: 1 RF: 0 lamotrigine [Lamictal] 200 mg tablet 200 mg PO BID 30 Days Qty: 60 RF: 11 albuterol sulfate 90 mcg/actuation HFA aerosol inhaler 2 puff inhalation Q4H PRN (Reason: Wheezing) RF: 0 bupropion HCl 300 mg tablet extended release 24 hr 300 mg PO DAILY RF: 0 levothyroxine 50 mcg Tablet 50 mcg PO DAILY@0630 RF: 0 naloxone 4 mg/actuation [place],Non-Aerosol 4 mg INTRANASAL Q3M PRN (Reason: UNRESPONSIVE) RF: 0 montelukast [Singulair] 10 mg tablet 10 mg PO BEDTIME RF: 0 cholecalciferol (vitamin D3) [Vitamin D3] 25 mcg (1,000 unit) Capsule 25 mcg PO DAILY RF: 0 amitriptyline 100 mg tablet 100 mg PO BEDTIME RF: 0 Breo Ellipta 200-25 mcg/dose blister with device 1 puff inhalation DAILY RF: 0 metaxalone 800 mg Tablet 800 mg PO Q8H PRN (Reason: Muscle Pain) RF: 0 sodium chloride [Saline Nasal] 0.65 % Aerosol,[place] 2 spray INTRANASAL Q4H PRN (Reason: Nasal Congestion) RF: 0 Pulmicort Flexhaler 180 mcg/actuation Aerosol Powdr Breath Activated 2 inh INHALATION BID RF: 0 trazodone 50 mg tablet 1 tab PO BEDTIME RF: 0 ketorolac 0.5 % drops 1 drp ophthalmic (eye) Q6H PRN (Reason: ITCHY EYES) RF: 0 sumatriptan succinate 25 mg tablet 25 mg PO Q8H PRN (Reason: Migraine Headache) RF: 0 gabapentin 300 mg capsule 600 mg PO BID RF: 0 Victoza 2-Scott 0.6 mg/0.1 mL (18 mg/3 mL) pen injector 0.6 mg subcut DAILY RF: 0 loratadine 10 mg Tablet 10 mg PO DAILY RF: 0 (DME) oxygen-air delivery systems Device See Rx Instructions .ROUTE .MEDSUPPLY Qty: 1 RF: 0 acetaminophen 325 mg tablet 650 mg PO Q4H PRN (Reason: PAIN/FEVER) RF: 0 lubiprostone [Amitiza] 24 mcg capsule 24 mcg PO BID 90 Days Qty: 180 RF: 3
[2021-08-06 11:40] LABS: MANUAL DIFF FLAG NO
[2021-08-06 11:41] LABS: Basophils Percent Auto 0.6 % (0-2); Eosinophils Absolute Auto 0.6 X10*3/uL (0.0-0.4); Eosinophils Percent Auto 9.2 % (0-4); Hematocrit 37.3 % (37-47); Hemoglobin 11.7 g/dl (12.0-16.0); Imm Gran Abs Auto 0.03 X10*3/uL (0.00-0.03); Imm Gran Pct Auto 0.5 % (0.0-0.4); Lymphocytes Absolute Auto 1.2 X10*3/uL (1.2-4.9); Lymphocytes Percent Auto 18.8 % (20-40); Mean Corpuscular HGB Conc 31.4 g/dl (31.0-35.0); Mean Corpuscular Hemoglobin 29.3 pg (27.0-33.0); Mean Corpuscular Volume 93.5 fL (80-98); Mean Platelet Volume 9.3 fL (9.4-12.3); Monocytes Absolute Auto 0.5 X10*3/uL (0.1-1.2); Monocytes Percent Auto 7.5 % (2-11); Neutrophils Absolute Auto 4.1 X10*3/uL (2.0-8.3); Neutrophils Percent Auto 63.4 % (45-73); Platelet Count 300 X10*3/uL (160-400); Red Blood Count 3.99 X10*6/uL (4.20-5.50); Red Cell Distribution Width 14.3 % (11.0-16.0); White Blood Count 6.4 X10*3/uL (4.8-10.8)
--- NOTE | 2021-08-06 11:44 | ECG_ITS ---
Test Reason : CHEST PAIN Blood Pressure : / mmHG Vent. Rate : 098 BPM Atrial Rate : 098 BPM P-R Int : 174 ms QRS Dur : 090 ms QT Int : 344 ms P-R-T Axes : 023 012 023 degrees QTc Int : 439 ms Normal sinus rhythm RSR' or QR pattern in V1 suggests right ventricular conduction delay No significant changes seen Referred By: Richard Draper Electronically Signed By:RENATA DURAN MD
[2021-08-06 11:57] LABS: Alanine Aminotransferase 11 U/L (0-31); Albumin Level 3.8 g/dL (3.5-5.0); Alkaline Phosphatase 102 U/L (39-117); Anion Gap 11 (12-20); Aspartate Amino Transferase 16 U/L (5-31); Bilirubin Total 0.2 mg/dL (0.0-1.0); Blood Urea Nitrogen 9 mg/dL (9-16); Calcium 9.2 mg/dL (8.4-10.2); Carbon Dioxide 29 mmol/L (22-29); Chloride 109 mmol/L (96-108); Creatinine Clr Calc Pharmacy 79.4; Estimated Glomerular Filt Rate > 60; Glucose Random 101 mg/dL (60-115); Potassium 4.7 mmol/L (3.3-5.1); Sodium 144 mmol/L (135-145); Total Protein 6.2 g/dL (6.5-8.0)
[2021-08-06 11:59] LABS: Troponin-I High Sensitivity < 3.5 ng/L (<3.5-17.0)
[2021-08-06 12:24] VITALS: BP 134/86; PULSE 95; RESP 13; TEMP 36.7; O2SAT 100
[2021-08-06 12:51] LABS: Appearance Urine HAZY; Color Urine YELLOW; Glucose Urine UA NEG (NEG); Leukocyte Esterase Urine 3+ (NEG); Nitrite Urine POS (NEG); PH 7.5 (5.0-8.0); UACC Culture Trigger YES; Urine Blood NEG (NEG); Urine Ketones NEG (NEG); Urine Protein NEG (NEG-TRACE)
[2021-08-06 12:59] LABS: WBC Urine 30-49 /HPF (0-4)
[2021-08-06 13:00] LABS: Bacteria Urine 2+ /LPF; Mucus Urine 1+ /LPF; Squamous Epithelial Cell Urine 1+ /LPF
--- NOTE | 2021-08-06 13:08 | PHA.MEDREC ---
Pharmacy Consult ? Medication Reconciliation Pharmacy has completed the medication reconciliation. There are no remarkable issues for provider's attention. Patient came from [facility] with a medication list. Roxane Taylor, KekeD
[2021-08-06] MEDS: LORazepam 2 MG/ML VIAL 1 MG IVPUSH (13:20)
[2021-08-06 14:41] VITALS: BP 127/75; PULSE 96; RESP 12; TEMP 36.6; O2SAT 100
[2021-08-06] MEDS: levoFLOXacin 500 MG TABLET PO (14:43)
--- NOTE | 2021-08-06 15:26 | PC.NURSE ---
nurse to nurse given to oz grimm (rn) at [facility] ([phone]). pt aware of plan of care for transfer to facility
== END 2021-08-06 17:22 | disposition home or self-care (01) ==
PROVIDERS: Emergency Provider Emergency Medicine
DX: N39.0 Urinary tract infection, site not specified (principal); E11.9 Type 2 diabetes mellitus without complications; F41.9 Anxiety disorder, unspecified; F32.9 Major depressive disorder, single episode, unspecified; M32.9 Systemic lupus erythematosus, unspecified; J44.9 Chronic obstructive pulmonary disease, unspecified; Z99.81 Dependence on supplemental oxygen
CPT/HCPCS: 36415; 71045; 80053; 81001; 84484; 85025; 87086; 87088; 87186; 93005; 99284; J2060

== ENCOUNTER → 2021-08-17 10:34 | Outpatient (BNVA) | payer OTHER, SELFPAY | PROVIDERS: Visit Provider Orthopaedic Surgery | DX: M65.331 Trigger finger, right middle finger (principal); R20.0 Anesthesia of skin; R20.2 Paresthesia of skin | CPT/HCPCS: 99212 ==

== ENCOUNTER 2021-08-27 09:51 | Emergency (ER) | payer OTHER, SELFPAY ==
--- NOTE | ~2021-08-27 | CT_ITS ---
EXAMINATION: CT HEAD WITHOUT CONTRAST CLINICAL INFORMATION: Fall, trauma COMPARISON: Noncontrast CT head 02/20/2021 TECHNIQUE: Contiguous axial imaging was performed from the skull base to vertex without intravenous administration of contrast. Additional 2-D coronal and sagittal reformatted images are generated on the CT workstation and uploaded to PACS. This CT examination was performed using dose optimization techniques as appropriate, variously including the following: *Automated exposure control *Adjustment of mA and/or kV according to patient size (this includes techniques or standardized protocols for targeted exams where dose is matched to indication/reason for exam; i.e. extremities or head) *Use of iterative reconstruction technique DLP: 777 mGy-cm FINDINGS: There is no intracranial hemorrhage, hematoma, or extra-axial fluid collection. The ventricles are normal in size. There is no hydrocephalus, edema, or mass effect. The yuan-white matter differentiation is similar to prior study. There is no visible acute territorial infarct or mass lesion. The calvarium appears intact. There is no pneumocephalus or orbital emphysema. The visualized sinuses and middle ears and mastoid air cells show no significant mucosal thickening. There are no air-fluid levels. CT/CT head/brain wo con IMPRESSION: No acute intracranial abnormality.
--- NOTE | ~2021-08-27 | XR_ITS ---
EXAMINATION: XR KNEE, RIGHT CLINICAL INFORMATION: Fall with pain COMPARISON: February 22, 2021 and December 09, 2020 TECHNIQUE: Four views of the right knee. FINDINGS: There is no evidence of acute fracture or dislocation of the right knee. There is moderate narrowing of the medial joint space compartment with some increased sclerosis and mild spurring. The lateral joint space compartment and patellofemoral joint appear unremarkable. No effusion is seen. Dermal calcifications are present. XR/XR knee RT 4V IMPRESSION: No acute fracture or dislocation of the right knee. Moderate medial joint space compartment degenerative change.
--- NOTE | ~2021-08-27 | CT_ITS ---
EXAMINATION: CT CERVICAL SPINE WITHOUT CONTRAST CLINICAL INFORMATION: Fall COMPARISON: None TECHNIQUE: Axial images through the cervical spine without contrast. Sagittal and coronal instructions on the technologist workstation were performed. This CT examination was performed using dose optimization techniques as appropriate, variously including the following: *Automated exposure control *Adjustment of mA and/or kV according to patient size (this includes techniques or standardized protocols for targeted exams where dose is matched to indication/reason for exam; i.e. extremities or head) *Use of iterative reconstruction technique DLP: 777 mGy-cm FINDINGS: Bone alignment is normal. No fracture or dislocation is seen. There is degenerative spondylosis and degenerative disc disease at C4-C5 C5-C6 and C6-C7. Prevertebral soft tissues are normal. Visualized lung apices are clear. CT/CT cervical spine wo con IMPRESSION: Degenerative changes. No fracture or dislocation seen.
[2021-08-27 10:02] VITALS: BP 102/54; BP 114/70; PULSE 90; PULSE 94; RESP 16; TEMP 37.2; O2SAT 98; O2SAT 99; BMI 41.5
--- NOTE | 2021-08-27 10:12 | PC.NURSE ---
Pt reports fall last night while attempting to get sandal and lost balance. C/O of all body discomfort but mostly to right knee and soreness to b/l shoulders. Collar intact. Speech clear, intact neruos. Plan for imaging
--- NOTE | 2021-08-27 10:25 | ED.FALL ---
HPI - Fall General Chief Complaint: Fall Stated Complaint: fall from standing Time Seen by Provider: 08/27/21 10:02 Source: patient and EMS Mode of arrival: EMS Limitations: no limitations History of Present Illness HPI Narrative: Patient is coming from [facility]. Per EMS, the staff reported that yesterday the patient had a fall from standing position. Patient states that last night she really had to go use the restroom, she stood up and was looking for her flip-flops, confined, tripped and fell backwards from standing position. Afterwards patient was doing well, went to bed. This morning patient started complaining of neck pain and right knee pain. Patient denies chest pain, no shortness of breath. Today, patient is complaining of Related Data Home Medications Medication Instructions Recorded Confirmed oxygen-air delivery systems #1 08/24/20 07/06/21 amitriptyline 100 mg tablet 100 mg PO BEDTIME 01/09/21 08/06/21 fluticasone furoate 200 1 puff INHALATION DAILY 01/09/21 08/06/21 mcg-vilanterol 25 mcg/dose inhalation powder (Breo Ellipta) albuterol sulfate 90 mcg/actuation 2 puff INHALATION Q4H PRN 01/14/21 08/06/21 aerosol inhaler bupropion HCl 300 mg 24 hr tablet, 300 mg PO DAILY 01/14/21 08/06/21 extended release cholecalciferol (vitamin D3) 25 25 mcg PO DAILY 01/14/21 08/06/21 mcg (1,000 unit) capsule (Vitamin D3) levothyroxine 50 mcg tablet 50 mcg PO DAILY@0630 01/14/21 08/06/21 montelukast 10 mg tablet 10 mg PO BEDTIME 01/14/21 08/06/21 (Singulair) naloxone 4 mg/actuation nasal spray 4 mg INTRANASAL Q3M PRN 01/14/21 08/06/21 metaxalone 800 mg tablet 800 mg PO Q8H PRN 01/21/21 08/06/21 budesonide 180 mcg/actuation 2 inh INHALATION BID 02/11/21 08/06/21 breath activated powder inhaler (Pulmicort Flexhaler) sodium chloride 0.65 % nasal spray 2 spray INTRANASAL Q4H PRN 02/11/21 08/06/21 aerosol (Saline Nasal) acetaminophen 325 mg tablet 650 mg PO Q4H PRN 07/06/21 08/06/21 gabapentin 300 mg capsule 600 mg PO BID 08/06/21 08/06/21 ketorolac 0.5 % eye drops 1 drp OPHTHALMIC (EYE) Q6H PRN 08/06/21 08/06/21 liraglutide 0.6 mg/0.1 mL (18 mg/3 0.6 mg SUBCUT DAILY 08/06/21 08/06/21 mL) subcutaneous pen injector (Victoza 2-Scott) loratadine 10 mg tablet 10 mg PO DAILY 08/06/21 08/06/21 sumatriptan succinate 25 mg tablet 25 mg PO Q8H PRN 08/06/21 08/06/21 trazodone 50 mg tablet 1 tab PO BEDTIME 08/06/21 08/06/21 Previous Rx's Medication Instructions Recorded pantoprazole 40 mg tablet,delayed 40 mg PO BID 90 Days #180 tab 08/26/20 release (Protonix) shower seat #1 ea 11/23/20 wheelchair #1 ea 11/23/20 miscellaneous medical supply #1 ea 12/22/20 lubiprostone 24 mcg capsule 24 mcg PO BID 90 Days #180 cap 07/06/21 (Amitiza) lamotrigine 200 mg tablet 200 mg PO BID 30 Days #60 tab 07/08/21 (Lamictal) levofloxacin 500 mg tablet 500 mg PO DAILY #6 tab 08/06/21 phenazopyridine 200 mg tablet 200 mg PO TID #6 tab 08/06/21 (Pyridium) Allergies Allergy/AdvReac Type Severity Reaction Status Date / Time unknown analgesia given Allergy Severe rash Uncoded 07/06/21 08:30 antihi PMFSH Past Medical History Medical History (Updated 08/27/21 @ 12:00 by Soledad Hong MD) Acute and chronic respiratory failure with hypoxia Asthma-COPD overlap syndrome Bipolar 1 disorder COPD (chronic obstructive pulmonary disease) COVID-19 Depression with anxiety Diabetes Eosinophilia GERD (gastroesophageal reflux disease) Hemangioma Hypothyroidism Hypovitaminosis D Insomnia Lumbar degenerative disc disease Lupus Lupus (systemic lupus erythematosus) Moderate recurrent major depression Morbid obesity with BMI of 40.0-44.9, adult Neck mass Obesity Oxygen dependent Polyarthralgia Recurrent UTI Severe asthma Tachycardia Trigger finger Trigger finger of right hand Urinary retention Surgical History History of carpal tunnel release History of section History of colonoscopy History of cystocele History of hysterectomy History of shoulder surgery History of tonsillectomy Family History Family History Father No problems noted. Mother No problems noted. 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) Alcohol intake: never Patient Tobacco Use Status: Former Tobacco user Tobacco use type: Cigarette e-Cigarette/Vaping Use: Never Used Second Hand Smoke Exposure: No Use of substances other than those prescribed or required for medical reasons: No Advance Directives: Yes Advance Directives on File: Yes Advance Directives Date on File: 01/08/21 Patient : No service: No Current occupational status: disabled 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 Patient ready to be discharge MDM - Fall Imaging Data Knee x-ray: Radiologist's impression: There is no evidence of acute fracture or dislocation of the right knee. There is moderate narrowing of the medial joint space compartment with some increased sclerosis and mild spurring. The lateral joint space compartment and patellofemoral joint appear unremarkable. No effusion is seen. Dermal calcifications are present.? XR/XR knee RT 4V IMPRESSION: No acute fracture or dislocation of the right knee. ? Moderate medial joint space compartment degenerative change. ? CT scan - head: Radiologist's impression: FINDINGS: There is no intracranial hemorrhage, hematoma, or extra-axial fluid collection.? The ventricles are normal in size. There is no hydrocephalus, edema, or mass effect.? The yuan-white matter differentiation is similar to prior study.? There is no visible acute territorial infarct or mass lesion. The calvarium appears intact. There is no pneumocephalus or orbital emphysema.? The visualized sinuses and middle ears and mastoid air cells show no significant mucosal thickening. There are no air-fluid levels. Cervical spines CT: Radiologist's impression: Bone alignment is normal. No fracture or dislocation is seen. There is degenerative spondylosis and degenerative disc disease at C4-C5 C5-C6 and C6-C7. Prevertebral soft tissues are normal. Visualized lung apices are clear. Discharge Plan Discharge Clinical Impression: Fall, Contusion Patient Disposition: Home, Self-Care Instructions: Fall Prevention for Older Adults (ED) Additional Instructions: Please follow-up with your primary care physician tomorrow. If you have any worsening or new symptoms, please return to the emergency room or call 911 Prescriptions: No Action pantoprazole [Protonix] 40 mg tablet,delayed release (DR/EC) 40 mg PO BID 90 Days Qty: 180 RF: 3 (DME) wheelchair See Rx Instructions .Route .MEDSUPPLY Qty: 1 RF: 0 (DME) shower seat See Rx Instructions .Route .MEDSUPPLY Qty: 1 RF: 0 (DME) miscellaneous medical supply Misc See Rx Instructions .ROUTE .MEDSUPPLY Qty: 1 RF: 0 lamotrigine [Lamictal] 200 mg tablet 200 mg PO BID 30 Days Qty: 60 RF: 11 albuterol sulfate 90 mcg/actuation HFA aerosol inhaler 2 puff inhalation Q4H PRN (Reason: Wheezing) RF: 0 bupropion HCl 300 mg tablet extended release 24 hr 300 mg PO DAILY RF: 0 levothyroxine 50 mcg Tablet 50 mcg PO DAILY@0630 RF: 0 naloxone 4 mg/actuation [place],Non-Aerosol 4 mg INTRANASAL Q3M PRN (Reason: UNRESPONSIVE) RF: 0 montelukast [Singulair] 10 mg tablet 10 mg PO BEDTIME RF: 0 cholecalciferol (vitamin D3) [Vitamin D3] 25 mcg (1,000 unit) Capsule 25 mcg PO DAILY RF: 0 amitriptyline 100 mg tablet 100 mg PO BEDTIME RF: 0 Breo Ellipta 200-25 mcg/dose blister with device 1 puff inhalation DAILY RF: 0 metaxalone 800 mg Tablet 800 mg PO Q8H PRN (Reason: Muscle Pain) RF: 0 sodium chloride [Saline Nasal] 0.65 % Aerosol,[place] 2 spray INTRANASAL Q4H PRN (Reason: Nasal Congestion) RF: 0 Pulmicort Flexhaler 180 mcg/actuation Aerosol Powdr Breath Activated 2 inh INHALATION BID RF: 0 trazodone 50 mg tablet 1 tab PO BEDTIME RF: 0 ketorolac 0.5 % drops 1 drp ophthalmic (eye) Q6H PRN (Reason: ITCHY EYES) RF: 0 sumatriptan succinate 25 mg tablet 25 mg PO Q8H PRN (Reason: Migraine Headache) RF: 0 gabapentin 300 mg capsule 600 mg PO BID RF: 0 Victoza 2-Scott 0.6 mg/0.1 mL (18 mg/3 mL) pen injector 0.6 mg subcut DAILY RF: 0 loratadine 10 mg Tablet 10 mg PO DAILY RF: 0 levofloxacin 500 mg tablet 500 mg PO DAILY Qty: 6 RF: 0 phenazopyridine [Pyridium] 200 mg tablet 200 mg PO TID Qty: 6 RF: 0 (DME) oxygen-air delivery systems Device See Rx Instructions .ROUTE .MEDSUPPLY Qty: 1 RF: 0 acetaminophen 325 mg tablet 650 mg PO Q4H PRN (Reason: PAIN/FEVER) RF: 0 lubiprostone [Amitiza] 24 mcg capsule 24 mcg PO BID 90 Days Qty: 180 RF: 3
[2021-08-27 12:31] VITALS: BP 109/54; BP 109/65; PULSE 94; RESP 18; O2SAT 99
[2021-08-27 12:32] VITALS: BP 93/47; PULSE 99
[2021-08-27 12:33] VITALS: BP 93/33; PULSE 102
--- NOTE | 2021-08-27 13:45 | PC.NURSE ---
Attempted to call report to Gina Obando, on hold x 4 min with no answer after speaking with medical assistant secretary
== END 2021-08-27 13:46 | disposition home or self-care (01) ==
PROVIDERS: Emergency Provider Emergency Medicine; PCP Internal Medicine
DX: T14.8XXA Other injury of unspecified body region, initial encounter (principal); M54.2 Cervicalgia; M25.561 Pain in right knee; E11.9 Type 2 diabetes mellitus without complications; J44.9 Chronic obstructive pulmonary disease, unspecified; M32.9 Systemic lupus erythematosus, unspecified; W01.0XXA Fall on same level from slipping, tripping and stumbling without subsequent striking against object, initial encounter; Y93.9 Activity, unspecified; Y92.009 Unspecified place in unspecified non-institutional (private) residence as the place of occurrence of the external cause; Y99.9 Unspecified external cause status; Z99.81 Dependence on supplemental oxygen
CPT/HCPCS: 70450; 72125; 73564; 99284

== ENCOUNTER → 2021-09-08 11:29 | Outpatient (BNVA) | payer OTHER, SELFPAY | PROVIDERS: PCP Internal Medicine; Visit Provider Hospitalist | DX: J44.9 Chronic obstructive pulmonary disease, unspecified (principal); J45.50 Severe persistent asthma, uncomplicated; D72.19 Other eosinophilia; K21.9 Gastro-esophageal reflux disease without esophagitis; Z99.81 Dependence on supplemental oxygen | CPT/HCPCS: 99212 ==

== ENCOUNTER 2021-10-11 08:24 | Outpatient (REF) | payer OTHER, SELFPAY ==
--- NOTE | ~2021-10-11 | FL_ITS ---
EXAMINATION: FL BARIUM SWALLOW CLINICAL INFORMATION: Gastroesophageal reflux disease without esophagitis. COMPARISON: None TECHNIQUE: Barium swallow examination is performed using fluoroscopic evaluation in addition to multiple fluoroscopic spot views. The patient is imaged both upright and prone and using both thick and thin sulfate along with effervescent granules. Fluoroscopy time: 1.8 minutes DAP: 20.718 Gy-cm2 Images: 63 FINDINGS: Following oral administration of thick barium and barium-coated turkey, there is normal propagation of bolus from the oral cavity through the pharynx, esophagus into stomach without any evidence of obstruction, narrowing or stricture. On administration of turkey, there is diminished peristalsis with significant secondary and tertiary peristalsis. There is no obstruction whatsoever. On placing patient prone and supine lying, there is slow propagation of barium through the esophagus. No intrinsic or extrinsic filling defects seen. The soft tissues are normal. FL/FL barium swallow IMPRESSION: There is diminished peristalsis with the presence of secondary and tertiary peristalsis likely age-related. No intraluminal filling defect, narrowing or stricture. No gastroesophageal reflux or hiatal hernia seen.
== END 2021-10-11 08:25 | disposition home or self-care (01) ==
LOC: HO.XRAY 08:24
PROVIDERS: PCP Internal Medicine; Visit Provider Hospitalist
DX: K21.9 Gastro-esophageal reflux disease without esophagitis (principal)
CPT/HCPCS: 74220

== ENCOUNTER 2021-10-27 09:24 | Outpatient (REF) | payer OTHER, SELFPAY ==
--- NOTE | 2021-10-27 09:27 | EMG_ITS ---
This is a 61-year-old woman with history of bilateral hand numbness. She has had carpal tunnel released in the left side, has trigger finger release on the right and also has some trigger finger symptoms on the left. PHYSICAL EXAMINATION: On examination, she is alert, oriented with normal intellectual functions. No Tinel or Phalen sign. IMPRESSION: Rule out carpal tunnel syndrome. Nerve conduction EMG study: Normal electrodiagnostic study of both upper extremity with no evidence of carpal tunnel syndrome or nerve entrapment. Normal EMG of the left C5-T1 innervated muscles. MD SUKHJINDER Daugherty/RACHEL / [id number]
== END 2021-10-27 09:25 | disposition home or self-care (01) ==
LOC: HO.NEURO 09:24
PROVIDERS: Visit Provider Orthopaedic Surgery
DX: R20.0 Anesthesia of skin (principal); R20.2 Paresthesia of skin
CPT/HCPCS: 95885; 95913

== ENCOUNTER → 2021-11-10 09:31 | Outpatient (BNVA) | payer OTHER, SELFPAY | PROVIDERS: PCP Internal Medicine; Visit Provider Orthopaedic Surgery | DX: M65.342 Trigger finger, left ring finger (principal); M65.331 Trigger finger, right middle finger; R20.0 Anesthesia of skin; R20.2 Paresthesia of skin; E11.9 Type 2 diabetes mellitus without complications; J44.9 Chronic obstructive pulmonary disease, unspecified; Z99.81 Dependence on supplemental oxygen | CPT/HCPCS: 99212 ==

== ENCOUNTER 2021-11-18 10:41 | Outpatient (REF) | payer OTHER, SELFPAY ==
--- NOTE | ~2021-11-18 | XR_ITS ---
EXAMINATION: XR knee RT 1V, XR knee standing BI, XR knee LT 2V CLINICAL INFORMATION: Reason for Exam pain in unspecified knee COMPARISON: None. TECHNIQUE: Weightbearing AP view of both knees lateral and sunrise views of each knee FINDINGS: No acute fracture or dislocation. Mild right medial tibiofemoral compartment joint space narrowing. Small moderate marginal osteophytes present along the medial tibiofemoral compartments bilaterally. Tiny marginal osteophytes present lateral tibiofemoral and patellofemoral compartments bilaterally. No joint effusion. No erosive changes. Soft tissues unremarkable. XR/XR knee RT 1V IMPRESSION: No acute findings. Degenerative changes as described
--- NOTE | ~2021-11-18 | XR_ITS ---
EXAMINATION: XR knee RT 1V, XR knee standing BI, XR knee LT 2V CLINICAL INFORMATION: Reason for Exam pain in unspecified knee COMPARISON: None. TECHNIQUE: Weightbearing AP view of both knees lateral and sunrise views of each knee FINDINGS: No acute fracture or dislocation. Mild right medial tibiofemoral compartment joint space narrowing. Small moderate marginal osteophytes present along the medial tibiofemoral compartments bilaterally. Tiny marginal osteophytes present lateral tibiofemoral and patellofemoral compartments bilaterally. No joint effusion. No erosive changes. Soft tissues unremarkable. XR/XR knee LT 2V IMPRESSION: No acute findings. Degenerative changes as described
--- NOTE | ~2021-11-18 | XR_ITS ---
EXAMINATION: XR knee RT 1V, XR knee standing BI, XR knee LT 2V CLINICAL INFORMATION: Reason for Exam pain in unspecified knee COMPARISON: None. TECHNIQUE: Weightbearing AP view of both knees lateral and sunrise views of each knee FINDINGS: No acute fracture or dislocation. Mild right medial tibiofemoral compartment joint space narrowing. Small moderate marginal osteophytes present along the medial tibiofemoral compartments bilaterally. Tiny marginal osteophytes present lateral tibiofemoral and patellofemoral compartments bilaterally. No joint effusion. No erosive changes. Soft tissues unremarkable. XR/XR knee standing BI IMPRESSION: No acute findings. Degenerative changes as described
== END 2021-11-18 10:42 | disposition home or self-care (01) ==
LOC: HO.HOSX 10:41
PROVIDERS: Visit Provider Physician Assistant
DX: M17.0 Bilateral primary osteoarthritis of knee (principal); M79.7 Fibromyalgia; E66.01 Morbid (severe) obesity due to excess calories; Z68.41 Body mass index [BMI] 40.0-44.9, adult
CPT/HCPCS: 20610; 73560; 73565; 99212; J1020

== ENCOUNTER 2021-12-06 13:12 | Outpatient (REF) | payer OTHER, SELFPAY ==
[2021-12-06 15:25] LABS: Syphilis Screen Nonreactive (Nonreactive)
[2021-12-07 09:05] LABS: BV Int Neg Control Negative (Negative); BV Int Pos Control Positive (Positive)
[2021-12-07 09:31] LABS: HIV AB/AG Nonreactive (Nonreactive); HIV Num 1 0.08 S/CO (0.00-0.99)
[2021-12-07 09:36] LABS: HBsAGNum1 0.19 S/CO (0.00-0.99); Hepatitis B Surface Antigen Negative (Negative); ~HepC Num1 0.09 S/CO (0.00-0.79); ~Hepatitis C Antibody Nonreactive (Nonreactive)
== END 2021-12-06 13:13 | disposition home or self-care (01) ==
LOC: HO.LAB 13:12
PROVIDERS: PCP Internal Medicine; Visit Provider Obstetrics & Gynecology
DX: Z01.411 Encounter for gynecological examination (general) (routine) with abnormal findings (principal); Z11.4 Encounter for screening for human immunodeficiency virus [HIV]; B96.89 Other specified bacterial agents as the cause of diseases classified elsewhere; N76.0 Acute vaginitis
CPT/HCPCS: 36415; 86780; 86803; 87340; 87389; 87480; 87510; 87660

== ENCOUNTER → 2021-12-09 11:00 | Outpatient (BNVA) | payer OTHER, SELFPAY | PROVIDERS: PCP Internal Medicine; Visit Provider Hospitalist | DX: J44.9 Chronic obstructive pulmonary disease, unspecified (principal); K21.9 Gastro-esophageal reflux disease without esophagitis; J45.50 Severe persistent asthma, uncomplicated; D72.19 Other eosinophilia; Z99.81 Dependence on supplemental oxygen | CPT/HCPCS: 99212 ==

== ENCOUNTER 2022-01-10 10:47 | Outpatient (REF) | payer OTHER, SELFPAY ==
--- NOTE | 2022-01-10 | PFT_ITS ---
INDICATION: COPD. SPIROMETRY: FEV1 to FVC 92% with an FEV1 of 1.81 L, which is 82% predicted and FVC of 1.96 L, which is 70% predicted. No significant response to bronchodilators noted. Maximum voluntary ventilation 38% predicted. LUNG VOLUMES: Total lung capacity 71% predicted with an expiratory reserve volume of only 5% predicted. DIFFUSION CAPACITY: DLCO 54% predicted. COMPARISONS: PFTs from 2020. INTERPRETATION: No obstructive ventilatory defect and no significant response to bronchodilators noted. There is a severe decrease in maximum voluntary ventilation, which could be due to deconditioning, although cannot rule out neuromuscular disease. The patient does have a restrictive ventilatory defect consistent with mild restrictive lung disease. In addition to that, there is a severely decreased expiratory reserve volume secondary to an elevated BMI. There is a moderate diffusion impairment. When compared to 2019, there is a trend increase of the FVC, trend increase in the FEV1, but no significant change in the total lung capacity and a significant decrease in the diffusion capacity. Clinical correlation warranted. MD IVETT Rodrigez/RACHEL / [id number]
== END 2022-01-10 10:48 | disposition home or self-care (01) ==
LOC: HO.RESP 10:47
PROVIDERS: PCP Internal Medicine; Visit Provider Hospitalist
DX: J44.9 Chronic obstructive pulmonary disease, unspecified (principal)
CPT/HCPCS: 94060; 94727; 94729

== ENCOUNTER 2022-01-29 14:27 | Inpatient (IN) | payer OTHER, SELFPAY ==
--- NOTE | ~2022-01-29 | XR_ITS ---
EXAMINATION: XR CHEST CLINICAL INFORMATION: Palpitations COMPARISON: Chest x-ray 08/06/2021 TECHNIQUE: 2 views of the chest were obtained. FINDINGS: Cardiac silhouette is normal in size. The lungs are well aerated. There is no lobar consolidation. No pleural effusion or pneumothorax. Mild degenerative changes of the spine. Postsurgical changes of the left shoulder. XR/XR chest 2V IMPRESSION: No acute pulmonary pathology.
--- NOTE | ~2022-01-29 | CT_ITS ---
EXAMINATION: CT HEAD WITHOUT CONTRAST CLINICAL INFORMATION: Weakness COMPARISON: CT brain 08/27/2021 TECHNIQUE: Contiguous axial imaging was performed from the skull base to vertex without intravenous administration of contrast. This CT examination was performed using dose optimization techniques as appropriate, variously including the following: *Automated exposure control *Adjustment of mA and/or kV according to patient size (this includes techniques or standardized protocols for targeted exams where dose is matched to indication/reason for exam; i.e. extremities or head) *Use of iterative reconstruction technique DLP: 676 mGy-cm FINDINGS: There is no evidence of acute intracranial hemorrhage or territorial infarction. No abnormal mass effect or midline shift is seen. Romero to white matter differentiation is well preserved. No extra-axial fluid collections are identified. The ventricles are normal in size. There is no abnormal attenuation within the brain parenchyma. The osseous structures and soft tissues are normal. There is air-fluid level seen in bilateral maxillary sinuses. Rest of the paranasal sinuses and mastoid air cells are well-aerated. CT/CT head/brain wo con IMPRESSION: No acute intracranial process seen. Bilateral acute maxillary sinusitis.
[2022-01-29 14:38] VITALS: BP 126/76; BP 149/92; PULSE 100; RESP 15; TEMP 36.9; O2SAT 97; O2SAT 98; BMI 44.5
--- NOTE | 2022-01-29 14:41 | ED.GENADULT ---
HPI - General Adult General Chief complaint: Arrhythmia/Palpitations Stated complaint: palpitations Time Seen by Provider: 01/29/22 14:41 Source: patient, old records reviewed and interpreter and translator Mode of arrival: EMS Limitations: other (very vague historian) Related Data Home Medications Medication Instructions Recorded Confirmed oxygen-air delivery systems #1 08/24/20 12/09/21 benralizumab 30 mg/mL subcutaneous 30 mg SUBCUT Q8W 12/25/20 12/09/21 syringe lamotrigine 200 mg tablet 200 mg PO BID 12/25/20 12/09/21 cholecalciferol (vitamin D3) 25 25 mcg PO DAILY 01/14/21 12/09/21 mcg (1,000 unit) capsule (Vitamin D3) naloxone 4 mg/actuation nasal spray 4 mg INTRANASAL Q3M PRN 01/14/21 12/09/21 sodium chloride 0.65 % nasal spray 2 spray INTRANASAL Q4H PRN 02/11/21 12/09/21 aerosol (Saline Nasal) acetaminophen 325 mg tablet 650 mg PO Q4H PRN 07/06/21 12/09/21 sumatriptan succinate 25 mg tablet 25 mg PO Q8H PRN 08/06/21 12/09/21 trazodone 50 mg tablet 1 tab PO BEDTIME 08/06/21 12/09/21 liraglutide 0.6 mg/0.1 mL (18 mg/3 0.6 mg SUBCUT DAILY 09/08/21 12/09/21 mL) subcutaneous pen injector (Victoza 2-Scott) bisacodyl 10 mg rectal suppository 10 mg MA DAILY PRN 10/13/21 12/09/21 gabapentin 300 mg capsule 300 mg PO BID cap 10/13/21 12/09/21 metaxalone 800 mg tablet 800 mg PO TID-QID PRN 10/13/21 12/09/21 clonazepam 1 mg tablet 1 mg PO DAILY tab 12/09/21 12/09/21 zolpidem 10 mg tablet 10 mg PO BEDTIME PRN 12/09/21 12/09/21 Previous Rx's Medication Instructions Recorded shower seat #1 ea 11/23/20 wheelchair #1 ea 11/23/20 miscellaneous medical supply #1 ea 12/22/20 lubiprostone 24 mcg capsule 24 mcg PO BID 90 Days #180 cap 07/06/21 (Amitiza) linaclotide 145 mcg capsule 145 mcg PO DAILY #30 cap 10/13/21 (Linzess) naproxen 500 mg tablet 500 mg PO BID PRN #20 tab 10/13/21 amitriptyline 100 mg tablet 100 mg PO BEDTIME 90 Days #90 tab 10/21/21 bupropion HCl 300 mg 24 hr tablet, 300 mg PO DAILY 90 Days #90 tab 10/21/21 extended release lamotrigine 200 mg tablet 200 mg PO BID 30 Days #60 tab 10/21/21 (Lamictal) pantoprazole 40 mg tablet,delayed 40 mg PO BID 90 Days #180 tab 10/21/21 release (Protonix) metronidazole 500 mg tablet 500 mg PO BID 7 Days #14 tab 12/06/21 albuterol sulfate 90 mcg/actuation 2 puff INHALATION Q4H PRN #8.5 g 12/09/21 aerosol inhaler diphenhydramine HCl 25 mg tablet 25 mg PO BEDTIME PRN #30 tab 12/09/21 (Benadryl Allergy) fluticasone fur. 200 mcg-umeclid 1 inh INHALATION DAILY 30 Days #60 12/09/21 62.5 mcg-vilant 25 mcg ea inhalat.powder (Trelegy Ellipta) ketorolac 0.5 % eye drops 1 drp OPHTHALMIC (EYE) Q6H PRN #5 12/09/21 ml levothyroxine 50 mcg tablet 50 mcg PO DAILY@0630 #90 tab 12/09/21 loratadine 10 mg tablet 10 mg PO DAILY 30 Days #30 tab 12/09/21 montelukast 10 mg tablet 10 mg PO BEDTIME 30 Days #30 tab 12/09/21 (Singulair) diphenhydramine HCl 25 mg capsule 25 mg PO DAILY PRN #30 cap 01/10/22 (Benadryl) Allergies Allergy/AdvReac Type Severity Reaction Status Date / Time unknown analgesia given Allergy Severe rash Uncoded 12/09/21 13:37 antihi Review of Systems Review of Systems: Constitutional : No Weight loss, No Fever, No Chills, No Fatigue, pos Malaise ENT/Mouth : No sore throat, No Rhinorrhea Eyes: No Eye Pain, No Swelling, No Redness Cardiovascular : No Chest Pain, No SOB, No Dyspnea on Exertion, No Orthopnea, No Edema, pos Palpitations Respiratory : No Cough, No Sputum, No Wheezing Gastrointestinal : pos Nausea, No Vomiting, No Diarrhea, No Constipation, No abdominal Pain, No Hematochezia, No Melena Genitourinary : No Dysuria, No Urinary Frequency, No Hematuria, Musculoskeletal : No joint pain, No Myalgias, No Joint Swelling Skin : No Skin Lesions, No rash Neuro : No Weakness, No Numbness, No Dizziness, No Headache Psych : No Anxiety/Panic, No Depression Heme/Lymph: No Bruising, No Bleeding,No Lymphadenopathy Endocrine : No Polyuria, No Polydipsia All other systems reviewed and are negative [facility] Past Medical History Attestation statement: The following information was validated with the patient. Source: old records reviewed Medical History Acute and chronic respiratory failure with hypoxia Asthma-COPD overlap syndrome Bipolar 1 disorder COPD (chronic obstructive pulmonary disease) COVID-19 Depression with anxiety Diabetes Eosinophilia GERD (gastroesophageal reflux disease) Hemangioma Hypothyroidism Hypovitaminosis D Insomnia Lumbar degenerative disc disease Lupus (systemic lupus erythematosus) Moderate recurrent major depression Morbid obesity with BMI of 40.0-44.9, adult Neck mass Obesity Obstructive sleep apnea Oxygen dependent Polyarthralgia Recurrent UTI Severe asthma Tachycardia Trigger finger Trigger finger of right hand Urinary retention Surgical History History of carpal tunnel release History of section History of colonoscopy History of cystocele History of hysterectomy History of shoulder surgery History of tonsillectomy Family History Family History Father No problems noted. Mother No problems noted. 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) Alcohol intake: never Patient Tobacco Use Status: Former Tobacco user Tobacco use type: Cigarette e-Cigarette/Vaping Use: Never Used Second Hand Smoke Exposure: No Advance Directives: Yes Advance Directives on File: Yes Advance Directives Date on File: 01/08/21 Patient : No service: No Current occupational status: disabled Current occupation: right and left handed--- 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 Oriented X3. No acute distress. Initially awake and pleasant during interview and as the interview progressed her eyes closed more and more and she just stated I don't feel well Eyes: Pupils equal, round and reactive to light. ENT: Pharynx normal. Neck: Normal inspection. Neck supple. CVS: Normal heart rate and rhythm. Pulses normal. Respiratory: No respiratory distress. Breath sounds normal. 2L home O2 Abdomen: Soft and non-tender. Skin: Skin warm and dry. Normal skin color. Normal skin turgor. Extremities: No lower extremity edema. No calf ttp Neuro: Oriented X 3. No motor deficit. No sensory deficit. gait normal, no drift Medical Decision Making MDM Narrative Medical decision making narrative: 61 yo female with hx of lupus, COPD on 2L [place] home O2, tachycardia, hypothyroidism, UTI currently dx with UTI started first dose of amoxicillin today. Notes she has felt nauseated x 2 days. Today ? a few hours prior to arrival c/o feeling palpitations and hot/cold she noted her watch showed a HR of 136 and her BP was 120s/70s. At this time she states she just feels sick. Her symptoms are very vague initially she walked off EMS stretcher and was animated. Now as the interview progresses she closes her eyes more. Her BS is stable, she has a nonfocal neuro exam. Will obtain labs, CT head, UA, venous blood gas. Dispo per results and findings. HR 100 and below here will keep on tele has no CP/SOB. Lab Data Labs: Lab Results 01/29/22 Range/Units 14:44 POC Glucose 93 (60-115) mg/dL ECG Data Attestation: I personally reviewed and interpreted this ECG as follows: Interpretation: Rate: 100 Rhythm: NSR [place]: left Normal P waves. Normal KVNG. Normal QRS complex. ST T wave : normal no MARIO qTC: normal prior studies: no change Jul 2021 The study has been interpreted contemporaneously by me. . Discharge Plan Discharge Prescriptions: No Action (DME) wheelchair See Rx Instructions .Route .MEDSUPPLY Qty: 1 0RF Rx Instructions: As directed (DME) shower seat See Rx Instructions .Route .MEDSUPPLY Qty: 1 0RF Rx Instructions: As directed (DME) miscellaneous medical supply Misc See Rx Instructions .ROUTE .MEDSUPPLY Qty: 1 0RF Rx Instructions: OVERBED TABLE amitriptyline 100 mg tablet 100 mg PO BEDTIME 90 Days Qty: 90 1RF bupropion HCl 300 mg tablet extended release 24 hr 300 mg PO DAILY 90 Days Qty: 90 1RF lamotrigine [Lamictal] 200 mg tablet 200 mg PO BID 30 Days Qty: 60 11RF pantoprazole [Protonix] 40 mg tablet,delayed release (DR/EC) 40 mg PO BID 90 Days Qty: 180 3RF diphenhydramine HCl [Benadryl] 25 mg capsule 25 mg PO DAILY PRN (Reason: itching) Qty: 30 5RF naloxone 4 mg/actuation [place],Non-Aerosol 4 mg INTRANASAL Q3M PRN (Reason: UNRESPONSIVE) 0RF cholecalciferol (vitamin D3) [Vitamin D3] 25 mcg (1,000 unit) Capsule 25 mcg PO DAILY 0RF sodium chloride [Saline Nasal] 0.65 % Aerosol,[place] 2 spray INTRANASAL Q4H PRN (Reason: Nasal Congestion) 0RF trazodone 50 mg tablet 1 tab PO BEDTIME 0RF sumatriptan succinate 25 mg tablet 25 mg PO Q8H PRN (Reason: Migraine Headache) 0RF Victoza 2-Scott 0.6 mg/0.1 mL (18 mg/3 mL) pen injector 0.6 mg subcut DAILY 0RF (DME) oxygen-air delivery systems Device See Rx Instructions .ROUTE .MEDSUPPLY Qty: 1 0RF Rx Instructions: As directed benralizumab 30 mg/mL syringe 30 mg subcut Q8W 0RF lamotrigine 200 mg tablet 200 mg PO BID 0RF acetaminophen 325 mg tablet 650 mg PO Q4H PRN (Reason: PAIN/FEVER) 0RF lubiprostone [Amitiza] 24 mcg capsule 24 mcg PO BID 90 Days Qty: 180 3RF diphenhydramine HCl [Benadryl Allergy] 25 mg tablet 25 mg PO BEDTIME PRN (Reason: sleep) Qty: 30 0RF ketorolac 0.5 % drops 1 drp ophthalmic (eye) Q6H PRN (Reason: ITCHY EYES) Qty: 5 0RF levothyroxine 50 mcg tablet 50 mcg PO DAILY@0630 Qty: 90 0RF bisacodyl 10 mg suppository 10 mg MA DAILY PRN0RF gabapentin 300 mg capsule 300 mg PO BID 0RF Label Comments: pt was previously on 600 mg BID metaxalone 800 mg tablet 800 mg PO TID-QID PRN0RF Label Comments: from another provider ([facility]) Linzess 145 mcg capsule 145 mcg PO DAILY Qty: 30 0RF naproxen 500 mg tablet 500 mg PO BID PRN (Reason: pain) Qty: 20 0RF zolpidem 10 mg tablet 10 mg PO BEDTIME PRN0RF clonazepam 1 mg tablet 1 mg PO DAILY 0RF albuterol sulfate 90 mcg/actuation HFA aerosol inhaler 2 puff inhalation Q4H PRN (Reason: Wheezing) Qty: 8.5 11RF Trelegy Ellipta 200-62.5-25 mcg blister with device 1 inh inhalation DAILY 30 Days Qty: 60 12RF loratadine 10 mg tablet 10 mg PO DAILY 30 Days Qty: 30 11RF montelukast [Singulair] 10 mg tablet 10 mg PO BEDTIME 30 Days Qty: 30 11RF metronidazole 500 mg tablet 500 mg PO BID 7 Days Qty: 14 0RF
--- NOTE | 2022-01-29 14:42 | ECG_ITS ---
Test Reason : PALPITATIONS Blood Pressure : / mmHG Vent. Rate : 100 BPM Atrial Rate : 100 BPM P-R Int : 158 ms QRS Dur : 088 ms QT Int : 336 ms P-R-T Axes : 041 011 026 degrees QTc Int : 433 ms Normal sinus rhythm RSR' or QR pattern in V1 suggests right ventricular conduction delay Otherwise normal EKG When compared with ECG of 06-AUG-2021 11:21, No significant change was found Referred By: Radha Corcoran Electronically Signed By:MONIK JUAREZ
[2022-01-29 14:48] LABS: Glucose, Whole Blood 93 mg/dL (60-115)
--- NOTE | 2022-01-29 15:10 | ED_ITS ---
HPI - Arrhythmia/Palpitations General Chief Complaint: Arrhythmia/Palpitations Stated Complaint: palpitations Time Seen by Provider: 01/29/22 14:41 Source: patient, EMS, old records reviewed and pollution control technician Mode of arrival: EMS Limitations: other (vague historian ) History of Present Illness HPI narrative: 61 yo female with hx of COPD on 2L [place], lupus, UTI ESBL +, pneumonia, resipratory failure, bipolar disorder - noted she was sitting down doing paperwork she she felt hot and cold and noted her wristwatch showed a HR of 117, she checked her BP and it was 120/70s, she also ate some peanut butter. She notes she was dx with a UTI and someone put her on amoxicillin she took the first dose today. Review of records show 01/2021 admission for encephalopathy related to Klebsiella UTI ESBL+. 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 the pollution control technician notes more than once that the patient wasn't answering questions correctly and she had to repeat them. The patient giggled at one point as well, nothing funny was happening. MD complaint: palpitations ( I don't feel well. ) Onset (ago): hour(s) (? few hours ago patient unsure) Duration: intermittent Severity: moderate Context: occurred during rest Arrhythmia history: other (tachycardia) Associated symptoms: nausea Related Data Home Medications Medication Instructions Recorded Confirmed oxygen-air delivery systems #1 08/24/20 12/09/21 benralizumab 30 mg/mL subcutaneous 30 mg SUBCUT Q8W 12/25/20 12/09/21 syringe lamotrigine 200 mg tablet 200 mg PO BID 12/25/20 12/09/21 cholecalciferol (vitamin D3) 25 25 mcg PO DAILY 01/14/21 12/09/21 mcg (1,000 unit) capsule (Vitamin D3) naloxone 4 mg/actuation nasal spray 4 mg INTRANASAL Q3M PRN 01/14/21 12/09/21 sodium chloride 0.65 % nasal spray 2 spray INTRANASAL Q4H PRN 02/11/21 12/09/21 aerosol (Saline Nasal) acetaminophen 325 mg tablet 650 mg PO Q4H PRN 07/06/21 12/09/21 sumatriptan succinate 25 mg tablet 25 mg PO Q8H PRN 08/06/21 12/09/21 trazodone 50 mg tablet 1 tab PO BEDTIME 08/06/21 12/09/21 liraglutide 0.6 mg/0.1 mL (18 mg/3 0.6 mg SUBCUT DAILY 09/08/21 12/09/21 mL) subcutaneous pen injector (Victoza 2-Scott) bisacodyl 10 mg rectal suppository 10 mg AR DAILY PRN 10/13/21 12/09/21 gabapentin 300 mg capsule 300 mg PO BID cap 10/13/21 12/09/21 metaxalone 800 mg tablet 800 mg PO TID-QID PRN 10/13/21 12/09/21 clonazepam 1 mg tablet 1 mg PO DAILY tab 12/09/21 12/09/21 zolpidem 10 mg tablet 10 mg PO BEDTIME PRN 12/09/21 12/09/21 Previous Rx's Medication Instructions Recorded shower seat #1 ea 11/23/20 wheelchair #1 ea 11/23/20 miscellaneous medical supply #1 ea 12/22/20 lubiprostone 24 mcg capsule 24 mcg PO BID 90 Days #180 cap 07/06/21 (Amitiza) linaclotide 145 mcg capsule 145 mcg PO DAILY #30 cap 10/13/21 (Linzess) naproxen 500 mg tablet 500 mg PO BID PRN #20 tab 10/13/21 amitriptyline 100 mg tablet 100 mg PO BEDTIME 90 Days #90 tab 10/21/21 bupropion HCl 300 mg 24 hr tablet, 300 mg PO DAILY 90 Days #90 tab 10/21/21 extended release lamotrigine 200 mg tablet 200 mg PO BID 30 Days #60 tab 10/21/21 (Lamictal) pantoprazole 40 mg tablet,delayed 40 mg PO BID 90 Days #180 tab 10/21/21 release (Protonix) metronidazole 500 mg tablet 500 mg PO BID 7 Days #14 tab 12/06/21 albuterol sulfate 90 mcg/actuation 2 puff INHALATION Q4H PRN #8.5 g 12/09/21 aerosol inhaler diphenhydramine HCl 25 mg tablet 25 mg PO BEDTIME PRN #30 tab 12/09/21 (Benadryl Allergy) fluticasone fur. 200 mcg-umeclid 1 inh INHALATION DAILY 30 Days #60 12/09/21 62.5 mcg-vilant 25 mcg ea inhalat.powder (Trelegy Ellipta) ketorolac 0.5 % eye drops 1 drp OPHTHALMIC (EYE) Q6H PRN #5 12/09/21 ml levothyroxine 50 mcg tablet 50 mcg PO DAILY@0630 #90 tab 12/09/21 loratadine 10 mg tablet 10 mg PO DAILY 30 Days #30 tab 12/09/21 montelukast 10 mg tablet 10 mg PO BEDTIME 30 Days #30 tab 12/09/21 (Singulair) diphenhydramine HCl 25 mg capsule 25 mg PO DAILY PRN #30 cap 01/10/22 (Benadryl) Allergies Allergy/AdvReac Type Severity Reaction Status Date / Time unknown analgesia given Allergy Severe rash Uncoded 12/09/21 13:37 antihi Review of Systems Review of Systems: Constitutional : No Weight loss, No Fever, pos Chills, pos Fatigue, pos Malaise ENT/Mouth : No sore throat, No Rhinorrhea Eyes: No Eye Pain, No Swelling, No Redness Cardiovascular : No Chest Pain, No SOB, No Dyspnea on Exertion, No Orthopnea, No Edema, pos Palpitations Respiratory : No Cough, No Sputum, No Wheezing Gastrointestinal : No Nausea, No Vomiting, No Diarrhea, No Constipation, No abdominal Pain, No Hematochezia, No Melena Genitourinary : No Dysuria, No Urinary Frequency, No Hematuria, Musculoskeletal : No joint pain, No Myalgias, No Joint Swelling Skin : No Skin Lesions, No rash Neuro : pos Weakness, No Numbness, No Dizziness, No Headache Psych : No Anxiety/Panic, No Depression Heme/Lymph: No Bruising, No Bleeding,No Lymphadenopathy Endocrine : No Polyuria, No Polydipsia All other systems reviewed and are negative [facility] Past Medical History Attestation statement: The following information was validated with the patient. Medical History Acute and chronic respiratory failure with hypoxia Asthma-COPD overlap syndrome Bipolar 1 disorder COPD (chronic obstructive pulmonary disease) COVID-19 Depression with anxiety Diabetes Eosinophilia GERD (gastroesophageal reflux disease) Hemangioma Hypothyroidism Hypovitaminosis D Insomnia Lumbar degenerative disc disease Lupus (systemic lupus erythematosus) Moderate recurrent major depression Morbid obesity with BMI of 40.0-44.9, adult Neck mass Obesity Obstructive sleep apnea Oxygen dependent Polyarthralgia Recurrent UTI Severe asthma Tachycardia Trigger finger Trigger finger of right hand Urinary retention Surgical History History of carpal tunnel release History of section History of colonoscopy History of cystocele History of hysterectomy History of shoulder surgery History of tonsillectomy Family History Family History Father No problems noted. Mother No problems noted. 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 Oriented X2. No acute distress. Waxing and waning at times - giggles when she couldn't. Development Spec notes she starts trailing off at times and needs frequent direction Eyes: Pupils equal, round and reactive to light. ENT: Pharynx normal. Neck: Normal inspection. Neck supple. CVS: Normal heart rate and rhythm. Pulses normal. Respiratory: No respiratory distress. Breath sounds normal. Abdomen: Soft and non-tender. Skin: Skin warm and dry. Normal skin color. Extremities: No lower extremity edema. No calf ttp Neuro: Oriented X 2 (thinks Phillip is still president). No motor deficit. No sensory deficit. Course Course Course Narrative: patient signed out to [employer] pending workup plan will be to check urine start on meropenem given prior UTIs MDM - Arrhythmia/Palpitations MDM Narrative Medical decision making narrative: 61 yo female with hx of COPD on 2L NC, lupus, UTI ESBL +, pneumonia, resipratory failure, bipolar disorder here with reports of feeling hot and cold, palpitations, she is confused - will need CT head for ICH, labs, cultures, venous blood gas, UA - she notes she was started on amoxicillin and had a first dose today. If she is in fact infected she will need meropenem given her history of ESBL+ Klebsiella. She has similar presentation back in January 2021. Dispo per results and findings. Lab Data Labs: Lab Results 01/29/22 Range/Units 14:44 POC Glucose 93 (60-115) mg/dL Discharge Plan Discharge Clinical Impression: Encephalopathy acute Patient Disposition: Still a Patient Prescriptions: No Action (DME) wheelchair See Rx Instructions .Route .MEDSUPPLY Qty: 1 0RF Rx Instructions: As directed (DME) shower seat See Rx Instructions .Route .MEDSUPPLY Qty: 1 0RF Rx Instructions: As directed (DME) miscellaneous medical supply Misc See Rx Instructions .ROUTE .MEDSUPPLY Qty: 1 0RF Rx Instructions: OVERBED TABLE amitriptyline 100 mg tablet 100 mg PO BEDTIME 90 Days Qty: 90 1RF bupropion HCl 300 mg tablet extended release 24 hr 300 mg PO DAILY 90 Days Qty: 90 1RF lamotrigine [Lamictal] 200 mg tablet 200 mg PO BID 30 Days Qty: 60 11RF pantoprazole [Protonix] 40 mg tablet,delayed release (DR/EC) 40 mg PO BID 90 Days Qty: 180 3RF diphenhydramine HCl [Benadryl] 25 mg capsule 25 mg PO DAILY PRN (Reason: itching) Qty: 30 5RF naloxone 4 mg/actuation [place],Non-Aerosol 4 mg INTRANASAL Q3M PRN (Reason: UNRESPONSIVE) 0RF cholecalciferol (vitamin D3) [Vitamin D3] 25 mcg (1,000 unit) Capsule 25 mcg PO DAILY 0RF sodium chloride [Saline Nasal] 0.65 % Aerosol,[place] 2 spray INTRANASAL Q4H PRN (Reason: Nasal Congestion) 0RF trazodone 50 mg tablet 1 tab PO BEDTIME 0RF sumatriptan succinate 25 mg tablet 25 mg PO Q8H PRN (Reason: Migraine Headache) 0RF Victoza 2-Scott 0.6 mg/0.1 mL (18 mg/3 mL) pen injector 0.6 mg subcut DAILY 0RF (DME) oxygen-air delivery systems Device See Rx Instructions .ROUTE .MEDSUPPLY Qty: 1 0RF Rx Instructions: As directed benralizumab 30 mg/mL syringe 30 mg subcut Q8W 0RF lamotrigine 200 mg tablet 200 mg PO BID 0RF acetaminophen 325 mg tablet 650 mg PO Q4H PRN (Reason: PAIN/FEVER) 0RF lubiprostone [Amitiza] 24 mcg capsule 24 mcg PO BID 90 Days Qty: 180 3RF diphenhydramine HCl [Benadryl Allergy] 25 mg tablet 25 mg PO BEDTIME PRN (Reason: sleep) Qty: 30 0RF ketorolac 0.5 % drops 1 drp ophthalmic (eye) Q6H PRN (Reason: ITCHY EYES) Qty: 5 0RF levothyroxine 50 mcg tablet 50 mcg PO DAILY@0630 Qty: 90 0RF bisacodyl 10 mg suppository 10 mg AR DAILY PRN0RF gabapentin 300 mg capsule 300 mg PO BID 0RF Label Comments: pt was previously on 600 mg BID metaxalone 800 mg tablet 800 mg PO TID-QID PRN0RF Label Comments: from another provider ([facility]) Linzess 145 mcg capsule 145 mcg PO DAILY Qty: 30 0RF naproxen 500 mg tablet 500 mg PO BID PRN (Reason: pain) Qty: 20 0RF zolpidem 10 mg tablet 10 mg PO BEDTIME PRN0RF clonazepam 1 mg tablet 1 mg PO DAILY 0RF albuterol sulfate 90 mcg/actuation HFA aerosol inhaler 2 puff inhalation Q4H PRN (Reason: Wheezing) Qty: 8.5 11RF Trelegy Ellipta 200-62.5-25 mcg blister with device 1 inh inhalation DAILY 30 Days Qty: 60 12RF loratadine 10 mg tablet 10 mg PO DAILY 30 Days Qty: 30 11RF montelukast [Singulair] 10 mg tablet 10 mg PO BEDTIME 30 Days Qty: 30 11RF metronidazole 500 mg tablet 500 mg PO BID 7 Days Qty: 14 0RF
[2022-01-29 16:04] LABS: MANUAL DIFF FLAG NO
[2022-01-29 16:08] LABS: Basophils Absolute Auto 0.1 X10*3/uL (0.0-0.2); Basophils Percent Auto 0.9 % (0-2); Eosinophils Absolute Auto 0.5 X10*3/uL (0.0-0.4); Eosinophils Percent Auto 4.9 % (0-4); Hematocrit 39.2 % (37.0-47.0); Hemoglobin 12.2 g/dl (12.0-16.0); Imm Gran Abs Auto 0.08 X10*3/uL (0.00-0.03); Imm Gran Pct Auto 0.8 % (0.0-0.4); Lymphocytes Absolute Auto 1.8 X10*3/uL (1.2-4.9); Lymphocytes Percent Auto 17.4 % (20-40); Mean Corpuscular HGB Conc 31.1 g/dl (31.0-35.0); Mean Corpuscular Hemoglobin 28.2 pg (27.0-33.0); Mean Corpuscular Volume 90.7 fL (80.0-98.0); Monocytes Absolute Auto 0.5 X10*3/uL (0.1-1.2); Monocytes Percent Auto 5.2 % (2-11); Neutrophils Absolute Auto 7.1 x10*3/uL (2.0-8.3); Neutrophils Percent Auto 70.8 % (45-73); Platelet Count 421 X10*3/uL (160-400); Red Blood Count 4.32 X10*6/uL (4.20-5.50); Red Cell Distribution Width 14.6 % (11.0-16.0); White Blood Count 10.1 X10*3/uL (4.8-10.8)
[2022-01-29 16:12] LABS: Venous Blood Gas Refer to POC result
[2022-01-29 16:12] LABS: VBG Base Excess 2.8 mmol/L; VBG HCO3 28 mmol/L (22-26); VBG pCO2 46 mmHg; VBG pH 7.39 (7.32-7.43); VBG pO2 53 mmHg
[2022-01-29 16:17] LABS: Lactic Acid 0.9 mmol/L (0.5-2.0)
[2022-01-29 16:19] LABS: D Dimer High Sensitivity 352 NG/ML
[2022-01-29 16:24] LABS: Appearance Urine HAZY; Color Urine YELLOW; Glucose Urine UA NEG (NEG); Leukocyte Esterase Urine 3+ (NEG); Nitrite Urine NEG (NEG); Specific Gravity - Urine <= 1.005 (1.005-1.025); UACC Culture Trigger YES; Urine Blood TRACE (NEG); Urine Ketones NEG (NEG); Urine Protein NEG (NEG-TRACE)
[2022-01-29 16:26] LABS: Troponin-I High Sensitivity < 3.5 ng/L (<3.5-17.0)
[2022-01-29 16:28] VITALS: BP 129/97; PULSE 94; RESP 20; TEMP 36.8; O2SAT 100
[2022-01-29 16:35] LABS: Mucus Urine TRACE /LPF; RBC Urine 0-2 /HPF (0); Squamous Epithelial Cell Urine TRACE /LPF
[2022-01-29 16:35] LABS: Alanine Aminotransferase 15 U/L (0-31); Albumin Level 4.2 g/dL (3.5-5.0); Alkaline Phosphatase 115 U/L (39-117); Anion Gap 13 (12-20); Aspartate Amino Transferase 20 U/L (5-31); Bilirubin Total 0.2 mg/dL (0.0-1.0); Blood Urea Nitrogen 12 mg/dL (9-16); Calcium 9.7 mg/dL (8.4-10.2); Carbon Dioxide 27 mmol/L (22-29); Chloride 105 mmol/L (96-108); Creatinine Clr Calc Pharmacy 71.4; Estimated Glomerular Filt Rate > 60; Glucose Random 86 mg/dL (60-115); Magnesium 2.4 mg/dL (1.6-2.6); Potassium 4.3 mmol/L (3.3-5.1); Sodium 141 mmol/L (135-145); Total Protein 7.2 g/dL (6.5-8.0)
[2022-01-29 16:43] LABS: TSH reflex Free T4 1.15 uIU/mL (0.32-4.0)
--- NOTE | 2022-01-29 17:04 | PM.IMHP ---
History of Present Illness Date of Service: 01/29/22 <Emiliana Faria NP - Last Filed: 01/31/22 09:29> Chief Complaint: Fever and chills <Emiliana Faria NP - Last Filed: 01/31/22 09:29> 61-year-old [place]-speaking woman presenting to the ER with hot and cold flashes. She has a history of tachycardia noticed her heart rate was 117. She reported that she had felt unwell over the last several days and her Her voice felt rough like she couldnt talk, she thought she had bronchitis. She does have a history of chronic urinary tract infections with most recent being Klebsiella ESBL positive. She denied recent illness, recent travel, chest pain, shortness breath, nausea, vomiting, diarrhea. She does live alone but is fairly independent. Urinalysis shows 3+ leukocytes, no nitrates or bacteria. No fever leukocytosis noted. Blood pressure She was given 1 dose of meropenem in the ER. She will be admitted for further management and treatment of possible ESBL UTI. <Emiliana Faria NP - Last Filed: 01/31/22 09:29> Review of Systems Review of Systems: Denies any recent fever chills or decrease in appetite respiratory denies any shortness of breath coverage production cardiovascular Denied chest pain gastrointestinal denies any dysphagia abdominal pain nausea vomiting or diarrhea genitourinary denies any dysuria frequency or hematuria musculoskeletal denies any joint pain or swelling neuropsych denies any weakness or seizures all other systems reviewed are negative <Emiliana Faria NP - Last Filed: 01/31/22 09:29> [facility] Medical History: Medical History (Updated 01/30/22 @ 11:35 by Nabila Meng MD) Acute and chronic respiratory failure with hypoxia Asthma-COPD overlap syndrome Bipolar 1 disorder COPD (chronic obstructive pulmonary disease) COVID-19 Depression with anxiety Diabetes Eosinophilia GERD (gastroesophageal reflux disease) Hemangioma Hypothyroidism Hypovitaminosis D Insomnia Lumbar degenerative disc disease Lupus (systemic lupus erythematosus) Moderate recurrent major depression Morbid obesity with BMI of 40.0-44.9, adult Neck mass Obesity Obstructive sleep apnea Oxygen dependent Polyarthralgia Recurrent UTI Severe asthma Tachycardia Trigger finger of right hand Urinary retention <Emiliana Faria NP - Last Filed: 01/31/22 09:29> Family History: Family History Father No problems noted. Mother No problems noted. Sister Nasopharyngeal cancer <Emiliana Faria NP - Last Filed: 01/31/22 09:29> Surgical History: Surgical History History of carpal tunnel release History of section History of colonoscopy History of cystocele History of hysterectomy History of shoulder surgery History of tonsillectomy <Emiliana Faria NP - Last Filed: 01/31/22 09:29> Social History: Social History Household Members: None Household Members Other:: 1 Housing: Apartment Do you presently have visiting nurse or other home services: Yes (Has DUMP ATTENDANT) Alcohol intake: never Patient Tobacco Use Status: Former Tobacco user Tobacco use type: Cigarette e-Cigarette/Vaping Use: Never Used Second Hand Smoke Exposure: No Advance Directives Date on File: 01/08/21 service: No Current occupational status: disabled Current occupation: right and left handed--- HAS DUMP ATTENDANT SERVICES <Emiliana Faria NP - Last Filed: 01/31/22 09:29> Meds Allergies/Adverse reactions: Allergies Allergy/AdvReac Type Severity Reaction Status Date / Time unknown analgesia given Allergy Severe rash Uncoded 12/09/21 13:37 antihi <Emiliana Faria NP - Last Filed: 01/31/22 09:29> Active Medications: Current Medications Pharmacy Consult (Consult Rx Perform Med Rec) 1 each MISCELLANE ONCE STA Stop: 01/29/22 16:56 <Emiliana Faria NP - Last Filed: 01/31/22 09:29> Home medications: Home Medications Medication Instructions Recorded Confirmed Last Taken Type oxygen-air delivery systems #1 08/24/20 01/29/22 Unknown History benralizumab 30 mg/mL subcutaneous 30 mg SUBCUT Q8W 12/25/20 12/09/21 Unknown History syringe cholecalciferol (vitamin D3) 25 25 mcg PO DAILY 01/14/21 01/29/22 Unknown History mcg (1,000 unit) capsule (Vitamin D3) sumatriptan succinate 25 mg tablet 25 mg PO Q8H PRN 08/06/21 01/29/22 Unknown History trazodone 50 mg tablet 1 tab PO BEDTIME 08/06/21 01/29/22 Unknown History liraglutide 0.6 mg/0.1 mL (18 mg/3 0.6 mg SUBCUT DAILY 09/08/21 12/09/21 Unknown History mL) subcutaneous pen injector (Victoza 2-Scott) gabapentin 300 mg capsule 300 mg PO BID cap 10/13/21 01/29/22 Unknown History metaxalone 800 mg tablet 800 mg PO TID-QID PRN 10/13/21 01/29/22 Unknown History clonazepam 1 mg tablet 1 mg PO DAILY PRN tab 12/09/21 01/29/22 Unknown History zolpidem 10 mg tablet 10 mg PO BEDTIME PRN 12/09/21 01/29/22 Unknown History methenamine hippurate 1 gram tablet 1 tab PO BID 01/29/22 01/29/22 Unknown History <Eimliana Faria NP - Last Filed: 01/31/22 09:29> Physical Exam Vital Signs and Narrative: Vital Signs: Last Vital Signs Temp 98.2 F 01/29/22 16:28 Pulse 94 01/29/22 16:28 Resp 20 01/29/22 16:28 BP 129/97 H 01/29/22 16:28 Pulse Ox 100 01/29/22 16:28 Oxygen Flow Rate 2 01/29/22 14:38 BMI result Body Mass Index 44.5 <Emiliana Faria NP - Last Filed: 01/31/22 09:29> Appearing in no acute distress head is normocephalic atraumatic eyes pupils are PERRLA sclera is anicteric mouth throat mucous membranes are intact and moist neck is supple no lymphadenopathy, no JVD noted lung sounds are clear to auscultation heart regular rate rhythm, clear S1, S2 positive bowel sounds, abdomen is soft, nontender neuro patient is alert x3, no focal deficits <Emiliana Faria NP - Last Filed: 01/31/22 09:29> Results Labs CBC and Chem 7: : 01/30/22 06:58 01/31/22 05:27 <Emiliana Faria NP - Last Filed: 01/31/22 09:29> Labs: Laboratory Results - last 24 hr 01/29/22 01/29/22 01/29/22 14:44 15:57 15:59 MCV 90.7 MCH 28.2 MCHC 31.1 RDW 14.6 Plt Count 421 H MPV 9.0 L Immature Gran % (Auto) 0.8 H Neut % (Auto) 70.8 Lymph % (Auto) 17.4 L [place] % (Auto) 5.2 Eos % (Auto) 4.9 H Baso % (Auto) 0.9 Lymph # (Auto) 1.8 [place] # (Auto) 0.5 Eos # (Auto) 0.5 H Baso # (Auto) 0.1 Abs Immat Gran (auto) 0.08 H Absolute Neuts (auto) 7.1 Absolute Nucleated RBC 0.000 Nucleated RBC % (auto) 0.0 D-Dimer High Sensitivty VBG pH VBG pCO2 VBG pO2 VBG HCO3 VBG O2 Saturation VBG Base Excess Anion Gap Estim Creat Clear Calc Estimated GFR POC Glucose 93 Random Glucose Lactic Acid 0.9 Calcium Magnesium Total Bilirubin AST ALT Alkaline Phosphatase Troponin I High Sens Total Protein Albumin TSH Urine Color Urine Appearance Urine pH Ur Specific [place] Urine Protein Urine Glucose (UA) Urine Ketones Urine Blood Urine Nitrite Ur Leukocyte Esterase Urine RBC Urine WBC Ur Squamous Epith Cells Urine Bacteria Urine Mucus 01/29/22 01/29/22 01/29/22 15:59 15:59 15:59 MCV MCH MCHC RDW Plt Count MPV Immature Gran % (Auto) Neut % (Auto) Lymph % (Auto) [place] % (Auto) Eos % (Auto) Baso % (Auto) Lymph # (Auto) [place] # (Auto) Eos # (Auto) Baso # (Auto) Abs Immat Gran (auto) Absolute Neuts (auto) Absolute Nucleated RBC Nucleated RBC % (auto) D-Dimer High Sensitivty 352 VBG pH VBG pCO2 VBG pO2 VBG HCO3 VBG O2 Saturation VBG Base Excess Anion Gap 13 Estim Creat Clear Calc 71.4 Estimated GFR > 60 POC Glucose Random Glucose 86 Lactic Acid Calcium 9.7 Magnesium 2.4 Total Bilirubin 0.2 AST 20 ALT 15 Alkaline Phosphatase 115 Troponin I High Sens < 3.5 Total Protein 7.2 Albumin 4.2 TSH Urine Color Urine Appearance Urine pH Ur Specific [place] Urine Protein Urine Glucose (UA) Urine Ketones Urine Blood Urine Nitrite Ur Leukocyte Esterase Urine RBC Urine WBC Ur Squamous Epith Cells Urine Bacteria Urine Mucus 01/29/22 01/29/22 01/29/22 15:59 16:01 16:16 MCV MCH MCHC RDW Plt Count MPV Immature Gran % (Auto) Neut % (Auto) Lymph % (Auto) [place] % (Auto) Eos % (Auto) Baso % (Auto) Lymph # (Auto) [place] # (Auto) Eos # (Auto) Baso # (Auto) Abs Immat Gran (auto) Absolute Neuts (auto) Absolute Nucleated RBC Nucleated RBC % (auto) D-Dimer High Sensitivty VBG pH 7.39 VBG pCO2 46 VBG pO2 53 VBG HCO3 28 H VBG O2 Saturation 81.0 VBG Base Excess 2.8 Anion Gap Estim Creat Clear Calc Estimated GFR POC Glucose Random Glucose Lactic Acid Calcium Magnesium Total Bilirubin AST ALT Alkaline Phosphatase Troponin I High Sens Total Protein Albumin TSH 1.15 Urine Color YELLOW Urine Appearance HAZY Urine pH 6.0 Ur Specific [place] <= 1.005 Urine Protein NEG Urine Glucose (UA) NEG Urine Ketones NEG Urine Blood TRACE Urine Nitrite NEG Ur Leukocyte Esterase 3+ H Urine RBC 0-2 Urine WBC 10-14 H Ur Squamous Epith Cells TRACE Urine Bacteria NONE Urine Mucus TRACE <Emiliana Faria NP - Last Filed: 01/31/22 09:29> Imaging Radiologist's Impressions: Impressions Chest X-Ray 01/29/22 15:45 IMPRESSION: No acute pulmonary pathology. Head CT 01/29/22 15:47 IMPRESSION: No acute intracranial process seen. Bilateral acute maxillary sinusitis. <Emiliana Faria NP - Last Filed: 01/31/22 09:29> Assessment and Plan (1) Urinary tract infection: Status: Acute <Emiliana Faria NP - Last Filed: 01/31/22 09:29> Plan 61-year-old woman admitted with UTI, possible ESBL positive as she has had history of this in the past. UTI . History of Klebsiella ESBL positive UTI. Will start meropenem Id consult Follow urine culture COPD. No exacerbation Albuterol as needed Mental health Continue home medications hypothyroidism Continue levothyroxine Elevated blood sugar readings in the past Will check sliding scale Morbid obesity. BMI 44.6 Discussed the importance of weight reduction as this may be contributing to worsening of other comorbidities DVT prophylaxis with Lovenox Attending Dr. Yusra WHEELER Patient likely requires 2 midnights in the hospital due to Following blood cultures for possible ESBL UTI which can take up to 48 hours, in the meantime patient will be treated with meropenem and ID consult is pending <Emiliana Faria NP - Last Filed: 01/31/22 09:29> 61-year-old woman admitted with UTI, possible ESBL positive as she has had history of this in the past. UTI . History of Klebsiella ESBL positive UTI. Will start meropenem Id consult Follow urine culture COPD. No exacerbation Albuterol as needed Mental health Continue home medications hypothyroidism Continue levothyroxine Elevated blood sugar readings in the past Will check sliding scale Morbid obesity. BMI 44.6 Discussed the importance of weight reduction as this may be contributing to worsening of other comorbidities DVT prophylaxis with Lovenox Attending Dr. Meng DNI Patient likely requires 2 midnights in the hospital due to Following blood cultures for possible ESBL UTI which can take up to 48 hours, in the meantime patient will be treated with meropenem and ID consult is pending 61-year-old [place]-speaking woman presenting to the ER with hot and cold flashes. She has a history of tachycardia noticed her heart rate was 117. She reported that she had felt unwell over the last several days and her Her voice felt rough like she couldnt talk, she thought she had bronchitis. She does have a history of chronic urinary tract infections with most recent being Klebsiella ESBL positive. She denied recent illness, recent travel, chest pain, shortness breath, nausea, vomiting, diarrhea. She does live alone but is fairly independent. Urinalysis shows 3+ leukocytes, no nitrates or bacteria. No fever leukocytosis noted. Blood pressure She was given 1 dose of meropenem in the ER. She will be admitted for further management and treatment of possible ESBL UTI. Addendum to history and physical by mid-level provider MADELINE Faria I interviewed and examined the patient. I discussed their presentation and management with the mid-level provider. I reviewed the history and physical and agree with the documentation, with the following additions and corrections: 61yo F with hx of chronic/recurrent UTI, most recently ESBL Klebsiella, presenting with flank pain and dysuria and noted to have pyuria. On exam, somewhat inappropriate/grandiose though has a hx of bipolar disorder. Plan admission to [facility] for ESBL UTI with IV meropenem and ID consult. <Nabila Meng MD - Last Filed: 01/30/22 11:36> Quality Stroke Does the patient have a stroke diagnosis?: No <Nabila Meng MD - Last Filed: 01/30/22 11:36> VTE Prior VTE?: No <Nabila Meng MD - Last Filed: 01/30/22 11:36> VTE Risk Level:: Medical - moderate - high <Nabila Meng MD - Last Filed: 01/30/22 11:36> VTE Device Contraindication: N/A - Device Ordered <Nabila Meng MD - Last Filed: 01/30/22 11:36> VTE Drug Contraindication: N/A - Med Ordered <Nabila Meng MD - Last Filed: 01/30/22 11:36>
[2022-01-29] MEDS: Enoxaparin Sodium 40 MG/0.4 ML SYRINGE SUBCUT (18:27)
[2022-01-29] MEDS: SUMAtriptan succinate 25 MG TABLET PO (18:48)
[2022-01-29 19:35] VITALS: BP 147/92; PULSE 92; RESP 17; O2SAT 100
[2022-01-29] MEDS: Gabapentin 300 MG CAPSULE PO (21:28)
[2022-01-29] MEDS: lamoTRIgine 100 MG TABLET 200 MG PO (21:29)
[2022-01-29] MEDS: Montelukast Sodium 10 MG TABLET PO (21:29)
[2022-01-29] MEDS: traZODone HCL 50 MG TABLET PO (21:34)
[2022-01-29] MEDS: Amitriptyline HCl 50 MG TABLET 100 MG PO (22:23)
[2022-01-29 22:26] VITALS: BP 121/77; PULSE 92; RESP 14; O2SAT 100
[2022-01-29 23:37] VITALS: BP 113/73; PULSE 86; RESP 14; O2SAT 99
[2022-01-30] VITALS (8 sets, daily range): BP systolic 95–136; BP diastolic 56–94; PULSE 85–96; RESP 13–18; TEMP 36.1–37.1; O2SAT 96–100
[2022-01-30 00:14] LABS: COVID-19 Test Negative (Negative)
[2022-01-30] MEDS: 0.9 % Sodium Chloride Flush 3 ML SYRINGE IVFLUSH ×2 (00:22→19:54)
[2022-01-30] MEDS: Omeprazole 20 MG CAPSULE.DR PO ×2 (06:35→19:51)
[2022-01-30] MEDS: Levothyroxine Sodium 50 MCG TABLET PO (06:35)
[2022-01-30 07:19] LABS: MANUAL DIFF FLAG NO
[2022-01-30 07:26] LABS: Basophils Absolute Auto 0.1 X10*3/uL (0.0-0.2); Basophils Percent Auto 0.8 % (0-2); Eosinophils Absolute Auto 0.5 X10*3/uL (0.0-0.4); Eosinophils Percent Auto 7.8 % (0-4); Hematocrit 37.2 % (37.0-47.0); Hemoglobin 11.4 g/dl (12.0-16.0); Imm Gran Abs Auto 0.05 X10*3/uL (0.00-0.03); Imm Gran Pct Auto 0.8 % (0.0-0.4); Lymphocytes Absolute Auto 1.4 X10*3/uL (1.2-4.9); Lymphocytes Percent Auto 23.6 % (20-40); Mean Corpuscular HGB Conc 30.6 g/dl (31.0-35.0); Mean Corpuscular Hemoglobin 28.5 pg (27.0-33.0); Mean Platelet Volume 9.1 fL (9.4-12.3); Monocytes Absolute Auto 0.5 X10*3/uL (0.1-1.2); Monocytes Percent Auto 7.6 % (2-11); Neutrophils Absolute Auto 3.6 x10*3/uL (2.0-8.3); Neutrophils Percent Auto 59.4 % (45-73); Platelet Count 357 X10*3/uL (160-400); Red Cell Distribution Width 14.6 % (11.0-16.0)
[2022-01-30 07:43] LABS: Anion Gap 11 (12-20); Blood Urea Nitrogen 12 mg/dL (9-16); Calcium 9.5 mg/dL (8.4-10.2); Carbon Dioxide 30 mmol/L (22-29); Chloride 106 mmol/L (96-108); Creatinine Clr Calc Pharmacy 73.8; Estimated Glomerular Filt Rate > 60; Glucose Random 104 mg/dL (60-115); Potassium 4.5 mmol/L (3.3-5.1); Sodium 142 mmol/L (135-145)
[2022-01-30] MEDS: buPROPion HCl XL 300 MG TAB.ER.24H PO (08:54)
[2022-01-30] MEDS: Cholecalciferol (Vitamin D3) 25 MCG TABLET PO (08:54)
[2022-01-30] MEDS: Gabapentin 300 MG CAPSULE PO ×2 (08:54→21:44)
[2022-01-30] MEDS: Loratadine 10 MG TABLET PO (08:54)
[2022-01-30] MEDS: lamoTRIgine 100 MG TABLET 200 MG PO ×2 (08:54→21:46)
--- NOTE | 2022-01-30 11:43 | P.PNIM_ITS ---
Subjective Subjective Date of Service: 01/30/22 Review of Systems Follow up UTI feeling fine but having headache Physical Exam Vital Signs: Vital Signs: Last Vital Signs Temp 98.2 F 01/29/22 16:28 Pulse 90 01/30/22 09:02 Resp 13 01/30/22 09:02 BP 114/70 01/30/22 09:02 Pulse Ox 98 01/30/22 09:02 Oxygen Flow Rate 2 01/29/22 14:38 BMI result Body Mass Index 44.5 Appearing in no acute distress lung sounds are clear to auscultation heart regular rate rhythm, clear S1, S2 positive bowel sounds, abdomen is soft, nontender neuro patient is alert x3, no focal deficits Objective Data Active Medications Acetaminophen (Acetaminophen 325 Mg Tablet) 650 mg PO Q6H PRN PRN Reason: Pain, Mild (Pain Scale 1-3) Albuterol Sulfate (Albuterol Sulfate 90 Mcg 8 Gm Inhaler) 2 puff INHALE Q4H PRN PRN Reason: Wheezing Amitriptyline HCl (Amitriptyline Hcl 50 Mg Tablet) 100 mg PO BEDTIME [facility] Last Admin: 01/29/22 22:23 Dose: 100 mg Documented by: BAKARI Bupropion HCl (Bupropion Hcl Xl 300 Mg Tab.Er.24h) 300 mg PO DAILY [facility] Last Admin: 01/30/22 08:54 Dose: 300 mg Documented by: MCKAY Clonazepam (Clonazepam 1 Mg Tablet) 1 mg PO DAILY PRN PRN Reason: Anxiety Enoxaparin Sodium (Enoxaparin Sodium 40 Mg/0.4 Ml Syringe) 40 mg SUBCUT Q24H [facility] Last Admin: 01/29/22 18:27 Dose: 40 mg Documented by: RM Gabapentin (Gabapentin 300 Mg Capsule) 300 mg PO BID [facility] Last Admin: 01/30/22 08:54 Dose: 300 mg Documented by: MCKAY Meropenem 1 gm/ Sodium (Chloride) 100 mls @ 200 mls/hr IV Q8H [facility] Last Infusion: 01/30/22 10:13 Dose: 0 mls/hr Documented by: MCKAY Lamotrigine (Lamotrigine 100 Mg Tablet) 200 mg PO BID [facility] Last Admin: 01/30/22 08:54 Dose: 200 mg Documented by: MCKAY Levothyroxine Sodium (Levothyroxine Sodium 50 Mcg Tablet) 50 mcg PO DAILY@0630 [facility] Last Admin: 01/30/22 06:35 Dose: 50 mcg Documented by: BAKARI Loratadine (Loratadine 10 Mg Tablet) 10 mg PO DAILY [facility] Last Admin: 01/30/22 08:54 Dose: 10 mg Documented by: MCKAY Montelukast Sodium (Montelukast Sodium 10 Mg Tablet) 10 mg PO BEDTIME [facility] Last Admin: 01/29/22 21:29 Dose: 10 mg Documented by: BAKARI Non-Formulary Medication (Abvftjtwnew-Sgpxeqepk-Ztyrgwwc [Trelegy Ellipta]) 1 inhalation INHALE DAILY [facility] Non-Formulary Medication (Linaclotide [Linzess]) 145 mcg PO DAILY [facility] Non-Formulary Medication (Lubiprostone [Amitiza]) 24 mcg PO BID [facility] Non-Formulary Medication (Methenamine Hippurate) 1 tab PO BID [facility] Omeprazole (Omeprazole 20 Mg Capsule.Dr) 20 mg PO BID@0630,1630 [facility] Last Admin: 01/30/22 06:35 Dose: 20 mg Documented by: BAKARI Ondansetron HCl (Ondansetron Hcl 4 Mg/2 Ml Vial) 4 mg IVPUSH Q8H PRN PRN Reason: Nausea and Vomiting Sodium Chloride (0.9 % Sodium Chloride Flush 3 Ml Syringe) 3 ml IVFLUSH QSHIFT [facility] Last Admin: 01/30/22 07:24 Dose: Not Given Documented by: MCKAY Non-Admin Reason: IV Running Sumatriptan Succinate (Sumatriptan Succinate 25 Mg Tablet) 25 mg PO Q8H PRN PRN Reason: Migraine Headache Last Admin: 01/29/22 18:48 Dose: 25 mg Documented by: RM Trazodone HCl (Trazodone Hcl 50 Mg Tablet) 50 mg PO BEDTIME [facility] Last Admin: 01/29/22 21:34 Dose: 50 mg Documented by: BAKARI Vitamin D (Cholecalciferol (Vitamin D3) 25 Mcg Tablet) 25 mcg PO DAILY [facility] Last Admin: 01/30/22 08:54 Dose: 25 mcg Documented by: MCKAY Zolpidem Tartrate (Zolpidem Tartrate 5 Mg Tablet) 5 mg PO BEDTIME PRN PRN Reason: Insomnia Labs CBC & Chem 7: 01/30/22 06:58 01/30/22 06:58 Labs: Laboratory Results - last 24 hr 01/29/22 01/29/22 01/29/22 14:44 15:57 15:59 MCV 90.7 MCH 28.2 MCHC 31.1 RDW 14.6 Plt Count 421 H MPV 9.0 L Immature Gran % (Auto) 0.8 H Neut % (Auto) 70.8 Lymph % (Auto) 17.4 L [place] % (Auto) 5.2 Eos % (Auto) 4.9 H Baso % (Auto) 0.9 Lymph # (Auto) 1.8 [place] # (Auto) 0.5 Eos # (Auto) 0.5 H Baso # (Auto) 0.1 Abs Immat Gran (auto) 0.08 H Absolute Neuts (auto) 7.1 Absolute Nucleated RBC 0.000 Nucleated RBC % (auto) 0.0 D-Dimer High Sensitivty VBG pH VBG pCO2 VBG pO2 VBG HCO3 VBG O2 Saturation VBG Base Excess Anion Gap Estim Creat Clear Calc Estimated GFR POC Glucose 93 Random Glucose Lactic Acid 0.9 Calcium Magnesium Total Bilirubin AST ALT Alkaline Phosphatase Troponin I High Sens Total Protein Albumin TSH Urine Color Urine Appearance Urine pH Ur Specific [place] Urine Protein Urine Glucose (UA) Urine Ketones Urine Blood Urine Nitrite Ur Leukocyte Esterase Urine RBC Urine WBC Ur Squamous Epith Cells Urine Bacteria Urine Mucus COVID-19 (ABBIE) COVID-19 Clin Com 01/29/22 01/29/22 01/29/22 15:59 15:59 15:59 MCV MCH MCHC RDW Plt Count MPV Immature Gran % (Auto) Neut % (Auto) Lymph % (Auto) [place] % (Auto) Eos % (Auto) Baso % (Auto) Lymph # (Auto) [place] # (Auto) Eos # (Auto) Baso # (Auto) Abs Immat Gran (auto) Absolute Neuts (auto) Absolute Nucleated RBC Nucleated RBC % (auto) D-Dimer High Sensitivty 352 VBG pH VBG pCO2 VBG pO2 VBG HCO3 VBG O2 Saturation VBG Base Excess Anion Gap 13 Estim Creat Clear Calc 71.4 Estimated GFR > 60 POC Glucose Random Glucose 86 Lactic Acid Calcium 9.7 Magnesium 2.4 Total Bilirubin 0.2 AST 20 ALT 15 Alkaline Phosphatase 115 Troponin I High Sens < 3.5 Total Protein 7.2 Albumin 4.2 TSH Urine Color Urine Appearance Urine pH Ur Specific [place] Urine Protein Urine Glucose (UA) Urine Ketones Urine Blood Urine Nitrite Ur Leukocyte Esterase Urine RBC Urine WBC Ur Squamous Epith Cells Urine Bacteria Urine Mucus COVID-19 (ABBIE) COVID-19 Clin Com 01/29/22 01/29/22 01/29/22 15:59 16:01 16:16 MCV MCH MCHC RDW Plt Count MPV Immature Gran % (Auto) Neut % (Auto) Lymph % (Auto) [place] % (Auto) Eos % (Auto) Baso % (Auto) Lymph # (Auto) [place] # (Auto) Eos # (Auto) Baso # (Auto) Abs Immat Gran (auto) Absolute Neuts (auto) Absolute Nucleated RBC Nucleated RBC % (auto) D-Dimer High Sensitivty VBG pH 7.39 VBG pCO2 46 VBG pO2 53 VBG HCO3 28 H VBG O2 Saturation 81.0 VBG Base Excess 2.8 Anion Gap Estim Creat Clear Calc Estimated GFR POC Glucose Random Glucose Lactic Acid Calcium Magnesium Total Bilirubin AST ALT Alkaline Phosphatase Troponin I High Sens Total Protein Albumin TSH 1.15 Urine Color YELLOW Urine Appearance HAZY Urine pH 6.0 Ur Specific [place] <= 1.005 Urine Protein NEG Urine Glucose (UA) NEG Urine Ketones NEG Urine Blood TRACE Urine Nitrite NEG Ur Leukocyte Esterase 3+ H Urine RBC 0-2 Urine WBC 10-14 H Ur Squamous Epith Cells TRACE Urine Bacteria NONE Urine Mucus TRACE COVID-19 (ABBIE) COVID-19 [employer] Com 01/29/22 01/30/22 01/30/22 23:47 06:58 06:58 MCV 93.0 MCH 28.5 MCHC 30.6 L RDW 14.6 Plt Count 357 MPV 9.1 L Immature Gran % (Auto) 0.8 H Neut % (Auto) 59.4 Lymph % (Auto) 23.6 [place] % (Auto) 7.6 Eos % (Auto) 7.8 H Baso % (Auto) 0.8 Lymph # (Auto) 1.4 [place] # (Auto) 0.5 Eos # (Auto) 0.5 H Baso # (Auto) 0.1 Abs Immat Gran (auto) 0.05 H Absolute Neuts (auto) 3.6 Absolute Nucleated RBC 0.000 Nucleated RBC % (auto) 0.0 D-Dimer High Sensitivty VBG pH VBG pCO2 VBG pO2 VBG HCO3 VBG O2 Saturation VBG Base Excess Anion Gap 11 L Estim Creat Clear Calc 73.8 Estimated GFR > 60 POC Glucose Random Glucose 104 Lactic Acid Calcium 9.5 Magnesium Total Bilirubin AST ALT Alkaline Phosphatase Troponin I High Sens Total Protein Albumin TSH Urine Color Urine Appearance Urine pH Ur Specific [place] Urine Protein Urine Glucose (UA) Urine Ketones Urine Blood Urine Nitrite Ur Leukocyte Esterase Urine RBC Urine WBC Ur Squamous Epith Cells Urine Bacteria Urine Mucus COVID-19 (ABBIE) Negative COVID-19 Clin Com See Note Microbiology Microbiology Results: Microbiology 01/29/22 16:25 Urine Culture - Preliminary Urine clean catch - Clean Catch Midstream No growth to date. Assessment and Plan (1) Urinary tract infection: Status: Acute Plan 61-year-old woman admitted with UTI, possible ESBL positive as she has had history of this in the past. UTI .? History of Klebsiella ESBL positive UTI. Will start meropenem Id consult Follow urine culture COPD.? No exacerbation Albuterol as needed Mental health Continue home medications hypothyroidism Continue levothyroxine Elevated blood sugar readings in the past Will check sliding scale Morbid obesity. BMI 44.6 Discussed the importance of weight reduction as this may be contributing to worsening of other comorbidities DVT prophylaxis with Lovenox Attending Dr. Yusra WHEELER Patient requires continued hospitalization for treatment of ESBL UTI, final cx are still pending to assess Appropriate antibiotics for further treatment. Quality Stroke Does the patient have a stroke diagnosis?: No VTE Prior VTE?: No VTE Risk Level:: Medical - moderate - high VTE Device Contraindication: N/A - Device Ordered VTE Drug Contraindication: N/A - Med Ordered
[2022-01-30] MEDS: SUMAtriptan succinate 25 MG TABLET PO (13:02)
--- NOTE | 2022-01-30 14:49 | MHC.CM.PN ---
Met with patient and park interpreter. Patient lives alone, ambulates with a walker and has LARYNGOLOGIST hours through [facility]. PCP verified. Patient received 2 Vaccines but isn't boosted. Patient had Covid in December 2020. Copy of HCP verified to be on file. IMM explained and signed. Patient will need transportation arranged when medically stable but feels she can safely return home. Continue to monitor for d/c needs.
[2022-01-30] MEDS: Enoxaparin Sodium 40 MG/0.4 ML SYRINGE SUBCUT (19:51)
[2022-01-30] MEDS: Montelukast Sodium 10 MG TABLET PO (21:44)
[2022-01-30] MEDS: Amitriptyline HCl 50 MG TABLET 100 MG PO (21:44)
[2022-01-30] MEDS: traZODone HCL 50 MG TABLET PO (21:44)
[2022-01-31] MEDS: 0.9 % Sodium Chloride Flush 3 ML SYRINGE IVFLUSH ×2 (00:24→09:18)
[2022-01-31 03:15] VITALS: BP 99/63; PULSE 87; RESP 20; TEMP 36.4; O2SAT 96
[2022-01-31] MEDS: Acetaminophen 325 MG TABLET 650 MG PO (03:40)
[2022-01-31] MEDS: Omeprazole 20 MG CAPSULE.DR PO (05:41)
[2022-01-31] MEDS: Levothyroxine Sodium 50 MCG TABLET PO (05:41)
[2022-01-31 06:17] LABS: Anion Gap 12 (12-20); Blood Urea Nitrogen 14 mg/dL (9-16); Calcium 9.9 mg/dL (8.4-10.2); Carbon Dioxide 29 mmol/L (22-29); Chloride 104 mmol/L (96-108); Creatinine Clr Calc Pharmacy 79.2; Estimated Glomerular Filt Rate > 60; Glucose Random 107 mg/dL (60-115); Potassium 4.3 mmol/L (3.3-5.1); Sodium 141 mmol/L (135-145)
[2022-01-31 07:37] VITALS: BP 117/60; PULSE 78; RESP 20; TEMP 37.4; O2SAT 99
[2022-01-31] MEDS: Cholecalciferol (Vitamin D3) 25 MCG TABLET PO (09:17)
[2022-01-31] MEDS: Butalb/Acetamin/Caff 50/325/40 TABLET 1 TAB PO (09:17)
[2022-01-31] MEDS: buPROPion HCl XL 300 MG TAB.ER.24H PO (09:17)
[2022-01-31] MEDS: Loratadine 10 MG TABLET PO (09:18)
[2022-01-31] MEDS: lamoTRIgine 100 MG TABLET 200 MG PO (09:18)
[2022-01-31] MEDS: Gabapentin 300 MG CAPSULE PO (09:18)
--- NOTE | 2022-01-31 09:29 | PM.DS ---
DS: Providers Provider Date of Service: 01/31/22 Date of admission: 01/29/22 17:23 Primary care physician: Farideh Marquez MD Consults: 01/29/22 17:05 Consult to Infectious Diseases Routine Consulting Provider: Desire Salinas Reason for consultation: esbl hx Attending physician on discharge: Arnie Lunsford Discharging clinician: Emiliana Faria DS: Diagnosis Discharge Diagnosis (1) Urinary tract infection: Status: Acute DS: Summary Hospital Course Hospital Course: 61-year-old Dutch-speaking woman presenting to the ER with hot and cold flashes.? She has a history of tachycardia noticed her heart rate was 117.? She reported that she had felt unwell over the last several days and her Her voice felt rough like she couldnt talk, she thought she had bronchitis.? She does have a history of chronic urinary tract infections with most recent being Klebsiella ESBL positive.? She denied recent illness, recent travel, chest pain, shortness breath, nausea, vomiting, diarrhea.? She does live alone but is fairly independent.? Urinalysis shows 3+ leukocytes, no nitrates or bacteria.? No fever leukocytosis noted.? Blood pressure? She was given 1 dose of meropenem in the ER.? She will be admitted for further management and treatment of possible ESBL UTI. UTI .? History of Klebsiella ESBL positive UTI. Started meropenem, urine cx neg, Will continue 3 more days of ceftin. COPD.? No exacerbation Albuterol as needed Mental health Continue home medications hypothyroidism Continue levothyroxine Elevated blood sugar readings in the past normal range for blood sugars while inpatient Morbid obesity. BMI 44.6 Discussed the importance of weight reduction as this may be contributing to worsening of other comorbidities Time Spent with Patient Time attestation: Total time spent providing and/or coordinating discharge services: Discharge coordination time: Greater than 30 minutes Quality: Safe Use of Opioids Does Pt have an Active Cancer Diagnosis on the Problem List?: No Quality: Stroke Does the patient have a stroke diagnosis?: No Physical Exam Vital Signs: Vital Signs: Last Vital Signs Temp 99.4 F 01/31/22 07:37 Pulse 78 01/31/22 07:37 Resp 20 01/31/22 07:37 BP 117/60 01/31/22 07:37 Pulse Ox 99 01/31/22 07:37 Oxygen Flow Rate 2 01/29/22 14:38 BMI result Body Mass Index 44.5 Appearing in no acute distress head is normocephalic atraumatic eyes pupils are PERRLA sclera is anicteric mouth throat mucous membranes are intact and moist neck is supple no lymphadenopathy, no JVD noted lung sounds are clear to auscultation heart regular rate rhythm, clear S1, S2 positive bowel sounds, abdomen is soft, nontender neuro patient is alert x3, no focal deficits DS: Data Data Completed and Pending Completed studies during hospitalization [Text1]: Procedures Insertion of Infusion Device into Right Cephalic Vein, Percutaneous Approach (01/21/21) Labs on day of discharge: Laboratory Results - last 24 hr 01/31/22 05:27 Sodium 141 Potassium 4.3 Chloride 104 Carbon Dioxide 29 Anion Gap 12 BUN 14 Creatinine 0.82 Estim Creat Clear Calc 79.2 Estimated GFR > 60 Random Glucose 107 Calcium 9.9 Preliminary micro results at discharge 01/29/22 15:57 Blood Culture - Preliminary Blood - Venous No growth after 24 hours. 01/29/22 15:58 Blood Culture - Preliminary Blood - Venous No growth after 24 hours. 01/29/22 16:25 Urine Culture - Preliminary Urine clean catch - Clean Catch Midstream No growth to date. Discharge Plan Discharge Anticipated Discharge Date/Time: 01/31/22 09:23 Patient Disposition: Home, Self-Care Discharge Diagnosis: UTI Referrals: Farideh Starr MD [Primary Care Provider] - 1 Week Discharge Medications: New cefuroxime axetil 250 mg tablet 250 mg PO BID Qty: 6 0RF Continued (DME) wheelchair See Rx Instructions .Route .MEDSUPPLY Qty: 1 0RF Rx Instructions: As directed (DME) shower seat See Rx Instructions .Route .MEDSUPPLY Qty: 1 0RF Rx Instructions: As directed (DME) miscellaneous medical supply Misc See Rx Instructions .ROUTE .MEDSUPPLY Qty: 1 0RF Rx Instructions: OVERBED TABLE amitriptyline 100 mg tablet 100 mg PO BEDTIME 90 Days Qty: 90 1RF bupropion HCl 300 mg tablet extended release 24 hr 300 mg PO DAILY 90 Days Qty: 90 1RF lamotrigine [Lamictal] 200 mg tablet 200 mg PO BID 30 Days Qty: 60 11RF pantoprazole [Protonix] 40 mg tablet,delayed release (DR/EC) 40 mg PO BID 90 Days Qty: 180 3RF cholecalciferol (vitamin D3) [Vitamin D3] 25 mcg (1,000 unit) Capsule 25 mcg PO DAILY 0RF methenamine hippurate 1 gram tablet 1 tab PO BID 0RF trazodone 50 mg tablet 1 tab PO BEDTIME 0RF sumatriptan succinate 25 mg tablet 25 mg PO Q8H PRN (Reason: Migraine Headache) 0RF Victoza 2-Scott 0.6 mg/0.1 mL (18 mg/3 mL) pen injector 0.6 mg subcut DAILY 0RF (DME) oxygen-air delivery systems Device See Rx Instructions .ROUTE .MEDSUPPLY Qty: 1 0RF Rx Instructions: As directed benralizumab 30 mg/mL syringe 30 mg subcut Q8W 0RF lubiprostone [Amitiza] 24 mcg capsule 24 mcg PO BID 90 Days Qty: 180 3RF levothyroxine 50 mcg tablet 50 mcg PO DAILY@0630 Qty: 90 0RF gabapentin 300 mg capsule 300 mg PO BID 0RF Label Comments: pt was previously on 600 mg BID metaxalone 800 mg tablet 800 mg PO TID-QID PRN (Reason: Spasms) 0RF Label Comments: from another provider ([facility]) Linzess 145 mcg capsule 145 mcg PO DAILY Qty: 30 0RF zolpidem 10 mg tablet 10 mg PO BEDTIME PRN (Reason: Insomnia) 0RF clonazepam 1 mg tablet 1 mg PO DAILY PRN (Reason: Anxiety) 0RF albuterol sulfate 90 mcg/actuation HFA aerosol inhaler 2 puff inhalation Q4H PRN (Reason: Wheezing) Qty: 8.5 11RF Trelegy Ellipta 200-62.5-25 mcg blister with device 1 inh inhalation DAILY 30 Days Qty: 60 12RF loratadine 10 mg tablet 10 mg PO DAILY 30 Days Qty: 30 11RF montelukast [Singulair] 10 mg tablet 10 mg PO BEDTIME 30 Days Qty: 30 11RF Discontinued amoxicillin-pot clavulanate 875-125 mg tablet 1 tab PO BID 0RF Discharge Orders: Discharge Order (Routine); Ordered 01/31/22 Ordered By: Emiliana Faria Diet: advance to usual diet Activity on Discharge: As tolerated Stand Alone Forms: Patient Portal Discharge page Care Plan Goals: resolution of symptoms Health Concerns: UTI Plan of Treatment: Follow-up your primary care provider as needed Take all medications as prescribed Assessment: See discharge summary
--- NOTE | 2022-01-31 09:42 | MHC.CM.PN ---
Addendum entered by Mary Ross 01/31/22 14:39: PT WILL DC HOME VIA [facility] Original Note: DC HOME, [employer]
[2022-01-31 11:58] VITALS: BP 116/64; PULSE 75; RESP 20; TEMP 36.3; O2SAT 97
--- NOTE | 2022-01-31 14:09 | W.PM.IDCN ---
History of Present Illness Data of Consult Service Date: 01/31/22 Requesting physician: Emiliana Faria Primary Care Provider: Farideh Marquez MD HPI Reason for consult: encephalopathy,possible ESBL UTI She presented with confusion and fatigue. She had no specific urinary symptoms She had ESBL Klebsiella on 02/17. She has unremarkable urine and blood cultures and is afebrile. Review of Systems Review of Systems: Yes all other systems are reviewed and are negative PMFSH Past Medical History Medical History Acute and chronic respiratory failure with hypoxia Asthma-COPD overlap syndrome Bipolar 1 disorder COPD (chronic obstructive pulmonary disease) COVID-19 Depression with anxiety Diabetes Eosinophilia GERD (gastroesophageal reflux disease) Hemangioma Hypothyroidism Hypovitaminosis D Insomnia Lumbar degenerative disc disease Lupus (systemic lupus erythematosus) Moderate recurrent major depression Morbid obesity with BMI of 40.0-44.9, adult Neck mass Obesity Obstructive sleep apnea Oxygen dependent Polyarthralgia Recurrent UTI Severe asthma Tachycardia Trigger finger of right hand Urinary retention Family History Family History Father No problems noted. Mother No problems noted. Sister Nasopharyngeal cancer Family history: reviewed and not pertinent Surgical History Surgical History History of carpal tunnel release History of section History of colonoscopy History of cystocele History of hysterectomy History of shoulder surgery History of tonsillectomy Social History Social History Household Members: None Household Members Other:: 1 Housing: Apartment Do you presently have visiting nurse or other home services: Yes (Has [employer]) Alcohol intake: never Patient Tobacco Use Status: Former Tobacco user Tobacco use type: Cigarette e-Cigarette/Vaping Use: Never Used Second Hand Smoke Exposure: No Advance Directives Date on File: 01/08/21 service: No Current occupational status: disabled Current occupation: right and left handed--- HAS [employer]ATION[employer] SERVICES Meds Allergies Allergy/AdvReac Type Severity Reaction Status Date / Time unknown analgesia given Allergy Severe rash Uncoded 12/09/21 13:37 antihi Active Medications: Current Medications Acetaminophen (Acetaminophen 325 Mg Tablet) 650 mg PO Q6H PRN PRN Reason: Pain, Mild (Pain Scale 1-3) Last Admin: 01/31/22 03:40 Dose: 650 mg Documented by: Albuterol Sulfate (Albuterol Sulfate 90 Mcg 8 Gm Inhaler) 2 puff INHALE Q4H PRN PRN Reason: Wheezing Amitriptyline HCl (Amitriptyline Hcl 50 Mg Tablet) 100 mg PO BEDTIME [facility] Last Admin: 01/30/22 21:44 Dose: 100 mg Documented by: Bupropion HCl (Bupropion Hcl Xl 300 Mg Tab.Er.24h) 300 mg PO DAILY [facility] Last Admin: 01/31/22 09:17 Dose: 300 mg Documented by: Clonazepam (Clonazepam 1 Mg Tablet) 1 mg PO DAILY PRN PRN Reason: Anxiety Enoxaparin Sodium (Enoxaparin Sodium 40 Mg/0.4 Ml Syringe) 40 mg SUBCUT Q24H [facility] Last Admin: 01/30/22 19:51 Dose: 40 mg Documented by: Gabapentin (Gabapentin 300 Mg Capsule) 300 mg PO BID [facility] Last Admin: 01/31/22 09:18 Dose: 300 mg Documented by: Meropenem 1 gm/ Sodium (Chloride) 100 mls @ 200 mls/hr IV Q8H [facility] Last Admin: 01/31/22 09:53 Dose: Not Given Documented by: Lamotrigine (Lamotrigine 100 Mg Tablet) 200 mg PO BID [facility] Last Admin: 01/31/22 09:18 Dose: 200 mg Documented by: Levothyroxine Sodium (Levothyroxine Sodium 50 Mcg Tablet) 50 mcg PO DAILY@0630 [facility] Last Admin: 01/31/22 05:41 Dose: 50 mcg Documented by: Loratadine (Loratadine 10 Mg Tablet) 10 mg PO DAILY [facility] Last Admin: 01/31/22 09:18 Dose: 10 mg Documented by: Montelukast Sodium (Montelukast Sodium 10 Mg Tablet) 10 mg PO BEDTIME [facility] Last Admin: 01/30/22 21:44 Dose: 10 mg Documented by: Patient Own Medication (Trelegy Ellipta) 1 each INHALE DAILY [facility] Last Admin: 01/31/22 07:30 Dose: Not Given Documented by: Non-Formulary Medication (Linaclotide [Linzess]) 145 mcg PO DAILY [facility] Non-Formulary Medication (Lubiprostone [Amitiza]) 24 mcg PO BID [facility] Non-Formulary Medication (Methenamine Hippurate) 1 tab PO BID [facility] Omeprazole (Omeprazole 20 Mg Capsule.Dr) 20 mg PO BID@0630,1630 [facility] Last Admin: 01/31/22 05:41 Dose: 20 mg Documented by: Ondansetron HCl (Ondansetron Hcl 4 Mg/2 Ml Vial) 4 mg IVPUSH Q8H PRN PRN Reason: Nausea and Vomiting Sodium Chloride (0.9 % Sodium Chloride Flush 3 Ml Syringe) 3 ml IVFLUSH QSHIFT [facility] Last Admin: 01/31/22 09:18 Dose: 3 ml Documented by: Sumatriptan Succinate (Sumatriptan Succinate 25 Mg Tablet) 25 mg PO Q8H PRN PRN Reason: Migraine Headache Last Admin: 01/30/22 13:02 Dose: 25 mg Documented by: Trazodone HCl (Trazodone Hcl 50 Mg Tablet) 50 mg PO BEDTIME [facility] Last Admin: 01/30/22 21:44 Dose: 50 mg Documented by: Vitamin D (Cholecalciferol (Vitamin D3) 25 Mcg Tablet) 25 mcg PO DAILY [facility] Last Admin: 01/31/22 09:17 Dose: 25 mcg Documented by: Zolpidem Tartrate (Zolpidem Tartrate 5 Mg Tablet) 5 mg PO BEDTIME PRN PRN Reason: Insomnia Home Medications Medication Instructions Recorded Confirmed Last Taken Type oxygen-air delivery systems #1 08/24/20 01/29/22 Unknown History benralizumab 30 mg/mL subcutaneous 30 mg SUBCUT Q8W 12/25/20 12/09/21 Unknown History syringe cholecalciferol (vitamin D3) 25 25 mcg PO DAILY 01/14/21 01/29/22 Unknown History mcg (1,000 unit) capsule (Vitamin D3) sumatriptan succinate 25 mg tablet 25 mg PO Q8H PRN 08/06/21 01/29/22 Unknown History trazodone 50 mg tablet 1 tab PO BEDTIME 08/06/21 01/29/22 Unknown History liraglutide 0.6 mg/0.1 mL (18 mg/3 0.6 mg SUBCUT DAILY 09/08/21 12/09/21 Unknown History mL) subcutaneous pen injector (Victoza 2-Scott) gabapentin 300 mg capsule 300 mg PO BID cap 10/13/21 01/29/22 Unknown History metaxalone 800 mg tablet 800 mg PO TID-QID PRN 10/13/21 01/29/22 Unknown History clonazepam 1 mg tablet 1 mg PO DAILY PRN tab 12/09/21 01/29/22 Unknown History zolpidem 10 mg tablet 10 mg PO BEDTIME PRN 12/09/21 01/29/22 Unknown History methenamine hippurate 1 gram tablet 1 tab PO BID 01/29/22 01/29/22 Unknown History Physical Exam Vital Signs: Vital Signs: Last Vital Signs Temp 97.3 F 01/31/22 11:58 Pulse 75 01/31/22 11:58 Resp 20 01/31/22 11:58 BP 116/64 01/31/22 11:58 Pulse Ox 97 01/31/22 11:58 Oxygen Flow Rate 2 01/29/22 14:38 BMI result Body Mass Index 44.5 Const: General: cooperative HEENT: Head: Yes normal to inspection Mouth: Normal oral and palatal mucosa present Resp: Effort & Inspection: normal respiratory effort Cardio: Rate: regular rate Rhythm: regular rhythm GI: Palpation (GI): Soft to palpation and nontender Skin: General skin exam: no rashes or lesions noted Results Labs CBC & Chem 7: 01/30/22 06:58 01/31/22 05:27 Labs: BMP 01/31/22 05:27 Sodium 141 Potassium 4.3 Chloride 104 Carbon Dioxide 29 BUN 14 Creatinine 0.82 Calcium 9.9 Microbiology Microbiology Results: Microbiology 01/29/22 16:25 Urine clean catch - Clean Catch Midstream Urine Culture - Final 01/29/22 15:57 Blood - Venous Blood Culture - Preliminary No growth after 24 hours. 01/29/22 15:58 Blood - Venous Blood Culture - Preliminary No growth after 24 hours. Assessment and Plan (1) Urinary tract infection: Status: Acute There is unremarkable urine and patient is afebrile and has no elevated WBC. She is feeling improved and may have some improving early UTI as cultures negative Plan May give po Ceftin as outpatient for 5-7 days
== END 2022-01-31 15:45 | disposition home or self-care (01) | DRG 690 ==
LOC: HO.ED 17:02 → HO.EDOVER 17:39 → HO.S3 01-30 16:25
PROVIDERS: Physician Assistant Medical; Student in an Organized Health Care Education/Training Program; Admitting Provider Nurse Practitioner Acute Care; Emergency Provider Emergency Medicine; PCP Internal Medicine; Visit Provider Nurse Practitioner Acute Care
DX: N39.0 Urinary tract infection, site not specified (principal); Z68.41 Body mass index [BMI] 40.0-44.9, adult; M32.9 Systemic lupus erythematosus, unspecified; J44.9 Chronic obstructive pulmonary disease, unspecified; F31.9 Bipolar disorder, unspecified; E03.9 Hypothyroidism, unspecified; E66.01 Morbid (severe) obesity due to excess calories; Z87.440 Personal history of urinary (tract) infections; Z87.891 Personal history of nicotine dependence; Z20.822 Contact with and (suspected) exposure to COVID-19; Z79.51 Long term (current) use of inhaled steroids; Z79.890 Hormone replacement therapy; Z79.899 Other long term (current) drug therapy
CPT/HCPCS: 36415; 70450; 71046; 80048; 80053; 81001; 82803; 82947; 83605; 83735; 84443; 84484; 85025; 85379; 87040; 87086; 87635; 93005; 99218; 99285; J1650; J2185

== ENCOUNTER 2022-02-04 00:33 | Emergency (ER) | payer OTHER, SELFPAY ==
[2022-02-04] VITALS (7 sets, daily range): BP systolic 95–130; BP diastolic 43–82; PULSE 63–91; RESP 12–22; TEMP 37.2; O2SAT 97–100; BMI 42.0
--- NOTE | ~2022-02-04 | US_ITS ---
EXAMINATION: US VENOUS ULTRASOUND WITH DOPPLER LOWER EXTREMITY, LEFT CLINICAL INFORMATION: Swelling behind knee COMPARISON: 12/06/2019 TECHNIQUE: Ultrasound of the deep veins is performed from the hip to the calf with compression sonography and color and pulse Doppler assessment. Spectral analysis with color-flow imaging is performed. FINDINGS: There is normal venous compression and respiratory variation and augmented flow. The visualized common femoral vein, superficial femoral vein, profunda femoral vein, popliteal vein, and the trifurcation region shows no evidence of deep venous thrombosis. There is no significant popliteal fossa cyst. If the patient's symptoms persist, followup ultrasound in 5 days 7 days might be of value to exclude proximal propagation from a non-visualized calf vein. US/US venous duplex LE LT IMPRESSION: No DVT demonstrated in the left lower extremity.
--- NOTE | ~2022-02-04 | CT_ITS ---
EXAMINATION: CT ABDOMEN AND PELVIS WITHOUT CONTRAST CLINICAL INFORMATION: Lower abdominal pain at the injection sites COMPARISON: 06/04/2019 TECHNIQUE: Multidetector volumetric imaging was performed from the superior aspect of the liver through the pubic symphysis. Sagittal and coronal reformatted images were obtained on the technologist's workstation. This CT examination was performed using dose optimization techniques as appropriate, variously including the following: *Automated exposure control *Adjustment of mA and/or kV according to patient size (this includes techniques or standardized protocols for targeted exams where dose is matched to indication/reason for exam; i.e. extremities or head) *Use of iterative reconstruction technique DLP: 952 mGy-cm FINDINGS: LUNG BASES: Bibasilar atelectasis noted. LIVER, GALLBLADDER, AND BILIARY TREE: The liver is normal in size, shape, and attenuation. No focal hepatic lesion or biliary ductal dilatation is present. The gallbladder is unremarkable with no evidence of radiopaque gallstones, gallbladder wall thickening, or obvious pericholecystic inflammatory changes. PANCREAS: Unremarkable. SPLEEN: Unremarkable. ADRENAL GLANDS: Unremarkable. KIDNEYS AND URETERS: The kidneys are normal in size, shape, and attenuation. No hydronephrosis, hydroureter, or calculi seen. BLADDER: Unremarkable. GASTROINTESTINAL TRACT: No evidence of bowel obstruction. No significant bowel wall thickening seen. There is moderate stool throughout the colon. The appendix is unremarkable. No free fluid or free air is seen. ABDOMINAL WALL: No significant hernia is appreciated. LYMPH NODES: Normal. VASCULAR: Scattered atherosclerotic calcifications are noted. PELVIC VISCERA: Patient appears to be status post hysterectomy. OSSEOUS STRUCTURES: Degenerative changes are noted in the spine. CT/CT abdomen pelvis wo con IMPRESSION: No acute findings identified in the abdomen/pelvis. Moderate stool throughout the colon. Fleischner guidelines were followed.
--- NOTE | 2022-02-04 00:48 | ECG_ITS ---
Test Reason : SOB Blood Pressure : / mmHG Vent. Rate : 079 BPM Atrial Rate : 079 BPM P-R Int : 166 ms QRS Dur : 088 ms QT Int : 378 ms P-R-T Axes : 021 014 024 degrees QTc Int : 433 ms Normal sinus rhythm Normal ECG When compared with ECG of 29-JAN-2022 14:49, No significant change was found Referred By: Generic ED Physician Electronically Signed By:JOAQUIN RODRIGUEZ MD
--- NOTE | 2022-02-04 02:42 | ED.WEAKNESS ---
HPI - Weakness General Chief complaint: Dizziness Stated complaint: DIZZINESS AND WEAKNESS Time Seen by Provider: 02/04/22 02:14 Source: patient and old records reviewed Mode of arrival: EMS Limitations: no limitations History of Present Illness HPI Narrative: just DC from inpatient 01/31 for UTI on ceftin cultures negative admitted for encephalopathy MD Complaint: generalized weakness (feels dizzy, knot behind L knee, had hot flashes, chest pain) Onset (ago): hour(s) (started yesterday 02/03 at 4pm) Duration: constant Location: generalized Migration: none Severity: moderate Quality: aching Relieving factors: none Exacerbating factors: none Context: recent illness Associated symptoms: chest pain, loss of appetite and myalgias Related Data Home Medications Medication Instructions Recorded Confirmed oxygen-air delivery systems #1 08/24/20 01/29/22 benralizumab 30 mg/mL subcutaneous 30 mg SUBCUT Q8W 12/25/20 12/09/21 syringe cholecalciferol (vitamin D3) 25 25 mcg PO DAILY 01/14/21 01/29/22 mcg (1,000 unit) capsule (Vitamin D3) sumatriptan succinate 25 mg tablet 25 mg PO Q8H PRN 08/06/21 01/29/22 trazodone 50 mg tablet 1 tab PO BEDTIME 08/06/21 01/29/22 liraglutide 0.6 mg/0.1 mL (18 mg/3 0.6 mg SUBCUT DAILY 09/08/21 12/09/21 mL) subcutaneous pen injector (Victoza 2-Scott) gabapentin 300 mg capsule 300 mg PO BID cap 10/13/21 01/29/22 metaxalone 800 mg tablet 800 mg PO TID-QID PRN 10/13/21 01/29/22 clonazepam 1 mg tablet 1 mg PO DAILY PRN tab 12/09/21 01/29/22 zolpidem 10 mg tablet 10 mg PO BEDTIME PRN 12/09/21 01/29/22 methenamine hippurate 1 gram tablet 1 tab PO BID 01/29/22 01/29/22 Previous Rx's Medication Instructions Recorded shower seat #1 ea 11/23/20 wheelchair #1 ea 11/23/20 miscellaneous medical supply #1 ea 12/22/20 lubiprostone 24 mcg capsule 24 mcg PO BID 90 Days #180 cap 07/06/21 (Amitiza) linaclotide 145 mcg capsule 145 mcg PO DAILY #30 cap 10/13/21 (Linzess) amitriptyline 100 mg tablet 100 mg PO BEDTIME 90 Days #90 tab 10/21/21 bupropion HCl 300 mg 24 hr tablet, 300 mg PO DAILY 90 Days #90 tab 10/21/21 extended release lamotrigine 200 mg tablet 200 mg PO BID 30 Days #60 tab 10/21/21 (Lamictal) pantoprazole 40 mg tablet,delayed 40 mg PO BID 90 Days #180 tab 10/21/21 release (Protonix) albuterol sulfate 90 mcg/actuation 2 puff INHALATION Q4H PRN #8.5 g 12/09/21 aerosol inhaler fluticasone fur. 200 mcg-umeclid 1 inh INHALATION DAILY 30 Days #60 12/09/21 62.5 mcg-vilant 25 mcg ea inhalat.powder (Trelegy Ellipta) levothyroxine 50 mcg tablet 50 mcg PO DAILY@0630 #90 tab 12/09/21 loratadine 10 mg tablet 10 mg PO DAILY 30 Days #30 tab 12/09/21 montelukast 10 mg tablet 10 mg PO BEDTIME 30 Days #30 tab 12/09/21 (Singulair) qlfsmlqjfj-ljbivtpofafdb-wealcyzk 1 cap PO Q8H PRN #24 cap 01/31/22 50 mg-300 mg-40 mg capsule (Fioricet) cefuroxime axetil 250 mg tablet 250 mg PO BID #6 tab 01/31/22 Allergies Allergy/AdvReac Type Severity Reaction Status Date / Time unknown analgesia given Allergy Severe rash Uncoded 12/09/21 13:37 antihi Review of Systems Review of Systems: Constitutional : No Weight loss, No Fever, No Chills ENT/Mouth : No sore throat, No Rhinorrhea Eyes: No Swelling, No Redness Cardiovascular : pos Chest Pain, No SOB, NoEdema, pos calf pain Respiratory : No Cough, No Sputum, No Wheezing Gastrointestinal :no Nausea, Positive Vomiting, no Diarrhea, positive abdominal Pain at injection sites, No Hematochezia, No Melena Genitourinary : No Dysuria, No Urinary Frequency, No Hematuria, No Urgency Musculoskeletal : No joint pain, No Myalgias, No Joint Swelling Skin : No Skin Lesions, No rash Neuro : pos Weakness, No Numbness, pos Dizziness, No Headache Psych : No Anxiety/Panic, No Depression Heme/Lymph: No Bruising, No Lymphadenopathy Endocrine : No Polyuria, No Polydipsia All other systems reviewed and are negative. [facility] Past Medical History Attestation statement: The following information was validated with the patient. Medical History Acute and chronic respiratory failure with hypoxia Asthma-COPD overlap syndrome Bipolar 1 disorder COPD (chronic obstructive pulmonary disease) COVID-19 Depression with anxiety Diabetes Eosinophilia GERD (gastroesophageal reflux disease) Hemangioma Hypothyroidism Hypovitaminosis D Insomnia Lumbar degenerative disc disease Lupus (systemic lupus erythematosus) Moderate recurrent major depression Morbid obesity with BMI of 40.0-44.9, adult Neck mass Obesity Obstructive sleep apnea Oxygen dependent Polyarthralgia Recurrent UTI Severe asthma Tachycardia Trigger finger of right hand Urinary retention Surgical History History of carpal tunnel release History of section History of colonoscopy History of cystocele History of hysterectomy History of shoulder surgery History of tonsillectomy Family History Family History Father No problems noted. Mother No problems noted. Sister Nasopharyngeal cancer Social History Social History Household Members: None Household Members Other:: 1 Housing: Apartment Do you presently have visiting nurse or other home services: Yes (Has [employer]) Alcohol intake: never Patient Tobacco Use Status: Former Tobacco user Tobacco use type: Cigarette e-Cigarette/Vaping Use: Never Used Second Hand Smoke Exposure: No Advance Directives: Yes Advance Directives on File: Yes Advance Directives Date on File: 01/08/21 service: No Current occupational status: disabled Current occupation: right and left handed--- HAS [employer] SERVICES Physical Exam Vital Signs: Vital Signs: Last Vital Signs Temp 99 F 02/04/22 00:46 Pulse 87 02/04/22 04:55 Resp 20 02/04/22 04:55 BP 130/69 02/04/22 04:55 Pulse Ox 99 02/04/22 02:42 BMI result Body Mass Index 42.0 Appearance: Alert. Oriented X3. No acute distress. Eyes: Pupils equal, round and reactive to light. ENT: Pharynx normal. Neck: Normal inspection. Neck supple. CVS: Normal heart rate and rhythm. Pulses normal. Respiratory: No respiratory distress. Breath sounds normal. Abdomen: Soft and mild ttp in RLQ and near umbliicus at ?SQ injection site no large hematoma noted on exam. Skin: Skin warm and dry. Normal skin color. Normal skin turgor. Extremities: No lower extremity edema. No calf ttp reports pain behind l knee in pop fossa Neuro: Oriented X 3. No motor deficit. No sensory deficit. Course Course Course Narrative: patient laying on side so not accurate asked to recheck BP - 1L of IVF ordered readjusted cuff - was not fitting correctly the BP is no longer hypotensive - suspect error negative workup when speaking to her she notes her biggest concern was her insurance company called her to check on her and she told them about the cramp behind her L knee and they told her to get tested for a DVT so that's really why she came in. At this time she is stable for DC MDM - Weakness MDM Narrative Medical decision making narrative: 61 yo female with multiple medical problems just DC on 01/31 for encephalopathy and presumed UTI though culture negative sent home on ceftin - here with multiple complaints - dizziness, vague chest pain, felt dizzy, felt hot, pain at injection sites, pain behind left knee - at this time will obtain basic labs, hydrate, DVT study of L knee, observe patient - chest pain present since yesterday EKG and one troponin ordered very atypical. Lab Data Result diagrams: 02/04/22 04:46 02/04/22 04:46 Labs: Lab Results 02/04/22 02/04/22 02/04/22 Range/Units 04:46 04:46 04:46 WBC 7.6 (4.8-10.8) X10*3/uL RBC 4.03 L (4.20-5.50) X10*6/uL Hgb 11.5 L (12.0-16.0) g/dl Hct 36.8 L (37.0-47.0) % MCV 91.3 (80.0-98.0) fL MCH 28.5 (27.0-33.0) pg MCHC 31.3 (31.0-35.0) g/dl RDW 14.8 (11.0-16.0) % Plt Count 355 (160-400) X10*3/uL MPV 9.1 L (9.4-12.3) fL Immature Gran % (Auto) 0.7 H (0.0-0.4) % Neut % (Auto) 58.9 (45-73) % Lymph % (Auto) 25.6 (20-40) % [place] % (Auto) 5.5 (2-11) % Eos % (Auto) 8.5 H (0-4) % Baso % (Auto) 0.8 (0-2) % Lymph # (Auto) 1.9 (1.2-4.9) X10*3/uL [place] # (Auto) 0.4 (0.1-1.2) X10*3/uL Eos # (Auto) 0.6 H (0.0-0.4) X10*3/uL Baso # (Auto) 0.1 (0.0-0.2) X10*3/uL Abs Immat Gran (auto) 0.05 H (0.00-0.03) X10*3/uL Absolute Neuts (auto) 4.5 (2.0-8.3) x10*3/uL Absolute Nucleated RBC 0.000 (0.0-0.012) X10*3/uL Nucleated RBC % (auto) 0.0 (0.0-0.2) /100WBC PT 11.3 (9.9-13.0) SEC INR 1.0 (0.9-1.1) APTT 35.0 (24.1-38.0) SEC Sodium 139 (135-145) mmol/L Potassium 4.3 (3.3-5.1) mmol/L Chloride 105 (96-108) mmol/L Carbon Dioxide 27 (22-29) mmol/L Anion Gap 11 L (12-20) BUN 13 (9-16) mg/dL Creatinine 0.83 (0.5-1.4) mg/dL Estim Creat Clear Calc 78.6 Estimated GFR > 60 Random Glucose 105 (60-115) mg/dL Calcium 9.5 (8.4-10.2) mg/dL Magnesium 2.2 (1.6-2.6) mg/dL Total Bilirubin 0.3 (0.0-1.0) mg/dL Direct Bilirubin < 0.2 (0.0-0.5) mg/dL AST 23 (5-31) U/L ALT 16 (0-31) U/L Alkaline Phosphatase 99 (39-117) U/L Troponin I High Sens (<3.5-17.0) ng/L Total Protein 6.6 (6.5-8.0) g/dL Albumin 3.9 (3.5-5.0) g/dL Lipase 24 (8-78) U/L 02/04/22 Range/Units 04:46 WBC (4.8-10.8) X10*3/uL RBC (4.20-5.50) X10*6/uL Hgb (12.0-16.0) g/dl Hct (37.0-47.0) % MCV (80.0-98.0) fL MCH (27.0-33.0) pg MCHC (31.0-35.0) g/dl RDW (11.0-16.0) % Plt Count (160-400) X10*3/uL MPV (9.4-12.3) fL Immature Gran % (Auto) (0.0-0.4) % Neut % (Auto) (45-73) % Lymph % (Auto) (20-40) % [place] % (Auto) (2-11) % Eos % (Auto) (0-4) % Baso % (Auto) (0-2) % Lymph # (Auto) (1.2-4.9) X10*3/uL [place] # (Auto) (0.1-1.2) X10*3/uL Eos # (Auto) (0.0-0.4) X10*3/uL Baso # (Auto) (0.0-0.2) X10*3/uL Abs Immat Gran (auto) (0.00-0.03) X10*3/uL Absolute Neuts (auto) (2.0-8.3) x10*3/uL Absolute Nucleated RBC (0.0-0.012) X10*3/uL Nucleated RBC % (auto) (0.0-0.2) /100WBC PT (9.9-13.0) SEC INR (0.9-1.1) APTT (24.1-38.0) SEC Sodium (135-145) mmol/L Potassium (3.3-5.1) mmol/L Chloride (96-108) mmol/L Carbon Dioxide (22-29) mmol/L Anion Gap (12-20) BUN (9-16) mg/dL Creatinine (0.5-1.4) mg/dL Estim Creat Clear Calc Estimated GFR Random Glucose (60-115) mg/dL Calcium (8.4-10.2) mg/dL Magnesium (1.6-2.6) mg/dL Total Bilirubin (0.0-1.0) mg/dL Direct Bilirubin (0.0-0.5) mg/dL AST (5-31) U/L ALT (0-31) U/L Alkaline Phosphatase (39-117) U/L Troponin I High Sens < 3.5 (<3.5-17.0) ng/L Total Protein (6.5-8.0) g/dL Albumin (3.5-5.0) g/dL Lipase (8-78) U/L ECG Data Attestation: I personally reviewed and interpreted this ECG as follows: ECG interpretation date: 02/04/22 ECG interpretation time: 03:30 Interpretation: Rate: 79 Rhythm: NSR Sully: normal Normal P waves. Normal KVNG. Normal QRS complex. ST T wave : normal, no MARIO qTC: normal prior studies: no acute ischemia The study has been interpreted contemporaneously by me. Discharge Plan Discharge Clinical Impression: Weakness Acute leg pain Qualifiers: Laterality: left Qualified Code(s): M79.605 - Pain in left leg Patient Disposition: Home, Self-Care Instructions: Leg Pain (ED), Weakness (ED) Additional Instructions: return to ED for any worsening symptoms or concerns CT scan negative, DVT study of leg is negative Prescriptions: No Action (DME) wheelchair See Rx Instructions .Route .MEDSUPPLY Qty: 1 0RF Rx Instructions: As directed (DME) shower seat See Rx Instructions .Route .MEDSUPPLY Qty: 1 0RF Rx Instructions: As directed (DME) miscellaneous medical supply Misc See Rx Instructions .ROUTE .MEDSUPPLY Qty: 1 0RF Rx Instructions: OVERBED TABLE amitriptyline 100 mg tablet 100 mg PO BEDTIME 90 Days Qty: 90 1RF bupropion HCl 300 mg tablet extended release 24 hr 300 mg PO DAILY 90 Days Qty: 90 1RF lamotrigine [Lamictal] 200 mg tablet 200 mg PO BID 30 Days Qty: 60 11RF pantoprazole [Protonix] 40 mg tablet,delayed release (DR/EC) 40 mg PO BID 90 Days Qty: 180 3RF cholecalciferol (vitamin D3) [Vitamin D3] 25 mcg (1,000 unit) Capsule 25 mcg PO DAILY 0RF methenamine hippurate 1 gram tablet 1 tab PO BID 0RF cefuroxime axetil 250 mg tablet 250 mg PO BID Qty: 6 0RF otuftwlyhf-gyfanqujczdtt-jkew [Fioricet] 50-300-40 mg capsule 1 cap PO Q8H PRN (Reason: pain) Qty: 24 0RF trazodone 50 mg tablet 1 tab PO BEDTIME 0RF sumatriptan succinate 25 mg tablet 25 mg PO Q8H PRN (Reason: Migraine Headache) 0RF Victoza 2-Scott 0.6 mg/0.1 mL (18 mg/3 mL) pen injector 0.6 mg subcut DAILY 0RF (DME) oxygen-air delivery systems Device See Rx Instructions .ROUTE .MEDSUPPLY Qty: 1 0RF Rx Instructions: As directed benralizumab 30 mg/mL syringe 30 mg subcut Q8W 0RF lubiprostone [Amitiza] 24 mcg capsule 24 mcg PO BID 90 Days Qty: 180 3RF levothyroxine 50 mcg tablet 50 mcg PO DAILY@0630 Qty: 90 0RF gabapentin 300 mg capsule 300 mg PO BID 0RF Label Comments: pt was previously on 600 mg BID metaxalone 800 mg tablet 800 mg PO TID-QID PRN (Reason: Spasms) 0RF Label Comments: from another provider ([facility]) Linzess 145 mcg capsule 145 mcg PO DAILY Qty: 30 0RF zolpidem 10 mg tablet 10 mg PO BEDTIME PRN (Reason: Insomnia) 0RF clonazepam 1 mg tablet 1 mg PO DAILY PRN (Reason: Anxiety) 0RF albuterol sulfate 90 mcg/actuation HFA aerosol inhaler 2 puff inhalation Q4H PRN (Reason: Wheezing) Qty: 8.5 11RF Trelegy Ellipta 200-62.5-25 mcg blister with device 1 inh inhalation DAILY 30 Days Qty: 60 12RF loratadine 10 mg tablet 10 mg PO DAILY 30 Days Qty: 30 11RF montelukast [Singulair] 10 mg tablet 10 mg PO BEDTIME 30 Days Qty: 30 11RF Referrals: Physician,Unknown J [Primary Care Provider] - 1 day (talk to your doctor today please be seen next week)
--- NOTE | 2022-02-04 03:02 | PC.NURSE ---
pt a&o, 22 placed in R hand. Will medicate per dec. Reported to RN.
[2022-02-04 04:52] LABS: Basophils Absolute Auto 0.1 X10*3/uL (0.0-0.2); Basophils Percent Auto 0.8 % (0-2); Eosinophils Absolute Auto 0.6 X10*3/uL (0.0-0.4); Eosinophils Percent Auto 8.5 % (0-4); Hematocrit 36.8 % (37.0-47.0); Hemoglobin 11.5 g/dl (12.0-16.0); Imm Gran Abs Auto 0.05 X10*3/uL (0.00-0.03); Imm Gran Pct Auto 0.7 % (0.0-0.4); Lymphocytes Absolute Auto 1.9 X10*3/uL (1.2-4.9); Lymphocytes Percent Auto 25.6 % (20-40); MANUAL DIFF FLAG NO; Mean Corpuscular HGB Conc 31.3 g/dl (31.0-35.0); Mean Corpuscular Hemoglobin 28.5 pg (27.0-33.0); Mean Corpuscular Volume 91.3 fL (80.0-98.0); Mean Platelet Volume 9.1 fL (9.4-12.3); Monocytes Absolute Auto 0.4 X10*3/uL (0.1-1.2); Monocytes Percent Auto 5.5 % (2-11); Neutrophils Absolute Auto 4.5 x10*3/uL (2.0-8.3); Neutrophils Percent Auto 58.9 % (45-73); Platelet Count 355 X10*3/uL (160-400); Red Blood Count 4.03 X10*6/uL (4.20-5.50); Red Cell Distribution Width 14.8 % (11.0-16.0); White Blood Count 7.6 X10*3/uL (4.8-10.8)
[2022-02-04] MEDS: 0.9 % Sodium Chloride 1,000 ML 999 ML IVCONT (04:52)
--- NOTE | 2022-02-04 04:54 | PC.NURSE ---
medicated per mar. delay due to replacement of IV
[2022-02-04 04:57] LABS: Prothrombin Time 11.3 SEC (9.9-13.0)
[2022-02-04 05:11] LABS: Alanine Aminotransferase 16 U/L (0-31); Albumin Level 3.9 g/dL (3.5-5.0); Alkaline Phosphatase 99 U/L (39-117); Anion Gap 11 (12-20); Aspartate Amino Transferase 23 U/L (5-31); Bilirubin Direct < 0.2 mg/dL (0.0-0.5); Bilirubin Total 0.3 mg/dL (0.0-1.0); Blood Urea Nitrogen 13 mg/dL (9-16); Calcium 9.5 mg/dL (8.4-10.2); Carbon Dioxide 27 mmol/L (22-29); Chloride 105 mmol/L (96-108); Creatinine Clr Calc Pharmacy 78.6; Estimated Glomerular Filt Rate > 60; Glucose Random 105 mg/dL (60-115); Lipase 24 U/L (8-78); Magnesium 2.2 mg/dL (1.6-2.6); Potassium 4.3 mmol/L (3.3-5.1); Sodium 139 mmol/L (135-145); Total Protein 6.6 g/dL (6.5-8.0)
[2022-02-04 05:15] LABS: Troponin-I High Sensitivity < 3.5 ng/L (<3.5-17.0)
--- NOTE | 2022-02-04 06:28 | PC.NURSE ---
Iv removed, reviewed discharge instructions with patient. Pt verbalized understanding. Discharged with EMS home.
== END 2022-02-04 06:27 | disposition home or self-care (01) ==
PROVIDERS: Emergency Provider Emergency Medicine
DX: R42 Dizziness and giddiness (principal); M79.605 Pain in left leg; R07.89 Other chest pain; Z79.899 Other long term (current) drug therapy; Z87.891 Personal history of nicotine dependence
CPT/HCPCS: 36415; 74176; 80048; 80076; 83690; 83735; 84484; 85025; 85610; 85730; 93005; 93971; 96360; 99284

== ENCOUNTER → 2022-03-08 13:28 | Outpatient (BNVA) | payer OTHER, SELFPAY | PROVIDERS: PCP Internal Medicine; Visit Provider Physician Assistant | DX: M17.0 Bilateral primary osteoarthritis of knee (principal) | CPT/HCPCS: 20610; 99212; J1020 ==

== ENCOUNTER → 2022-03-14 11:08 | Outpatient (BNVA) | payer OTHER, SELFPAY | PROVIDERS: PCP Internal Medicine; Visit Provider Internal Medicine Gastroenterology | DX: K59.01 Slow transit constipation (principal); K31.84 Gastroparesis | CPT/HCPCS: 99212 ==

== ENCOUNTER 2022-03-17 11:12 | Day surgery (SDC) | payer OTHER, SELFPAY ==
--- NOTE | 2022-03-17 08:57 | W.PM.OPN ---
Operative Note Operative Note Date of Service: 03/17/22 Narrative: Operative Note Preop diagnosis: 1. Right middle finger Trigger finger Postop diagnosis: 1. Right middle finger Trigger finger Procedure: 1. Right middle finger A1 sudhakar release Surgeon: Leyda Garcia MD Anesthesia: local block using 1% lidocaine with epinephrine Findings: No locking or catching after A1 sudhakar release EBL: Less than 5 mL Tourniquet time: None Specimens: None Complications: None Disposition: Brought to recovery room in stable condition Plan: Follow-up for 10-14 days for wound check and suture removal Indications: The patient is 62 years old, with a right middle finger trigger finger that has been unresponsive to nonoperative management. The risks and benefits of operative treatment including but not limited to risk of damage to blood vessels, nerves, tendons, infection, persistent pain, persistent symptoms, recurrence or possible need for additional surgery were discussed with the patient and the patient wishes to proceed with surgery. Procedure: Once consent was obtained a local block was performed in the preop area using a combination of 1% lidocaine with epinephrine. The patient was then brought back to the operating suite and placed on the operative table in supine position. A tourniquet was applied to the proximal aspect of the right upper extremity and the limb was prepped and draped in a standard surgical fashion. Once assured that we had a good block, a 1.5 cm oblique incision was made centered over the A1 sudhakar of the right middle finger . The incision was made through the skin to the subcutaneous tissues using a #15 blade. Careful dissection was made down to the level of the A1 sudhakar using tenotomy scissors, with care being taken to protect the nearby neurovascular structures. A longitudinal incision was made in the A1 sudhakar 1st using a #15 blade, then using tenotomy scissors under direct visualization. The A1 sudhakar was noted to be thickened. Following our A1 sudhakar release, we no longer saw any locking or catching of the digit with flexion and extension. Once satisfied with our A1 sudhakar release the wound was copiously irrigated with normal saline and hemostasis was obtained with a brief period of local pressure. The skin edges were reapproximated with some 5.0 nylon suture material and a sterile dressing was applied. The patient appears to have tolerated the procedure well and with no complications. All digits were well vascularized at the conclusion of the case.
[2022-03-17 11:39] VITALS: BP 133/85; PULSE 103; RESP 18; TEMP 36.3; O2SAT 98; BMI 41.9
[2022-03-17 15:50] VITALS: BP 120/78; PULSE 97; RESP 16; TEMP 36.3; O2SAT 99
== END 2022-03-17 16:12 | disposition home or self-care (01) ==
PROVIDERS: PCP Internal Medicine; Visit Provider Orthopaedic Surgery
PROC: (CPT 26055; principal; 2022-03-17 12:00)
DX: M65.331 Trigger finger, right middle finger (principal); R20.0 Anesthesia of skin; J96.21 Acute and chronic respiratory failure with hypoxia; J44.9 Chronic obstructive pulmonary disease, unspecified; Z99.81 Dependence on supplemental oxygen; E11.9 Type 2 diabetes mellitus without complications; G47.33 Obstructive sleep apnea (adult) (pediatric); M32.9 Systemic lupus erythematosus, unspecified; E66.01 Morbid (severe) obesity due to excess calories; Z68.41 Body mass index [BMI] 40.0-44.9, adult; F41.8 Other specified anxiety disorders; Z79.4 Long term (current) use of insulin; Z87.891 Personal history of nicotine dependence; Z86.16 Personal history of COVID-19
CPT/HCPCS: 26055; J0171

== ENCOUNTER → 2022-03-30 11:14 | Outpatient (BNVA) | payer OTHER, SELFPAY | PROVIDERS: PCP Internal Medicine; Referring Provider Internal Medicine; Visit Provider Internal Medicine Cardiovascular Disease | DX: Z47.89 Encounter for other orthopedic aftercare (principal); M65.342 Trigger finger, left ring finger; Z87.39 Personal history of other diseases of the musculoskeletal system and connective tissue; R00.2 Palpitations | CPT/HCPCS: 93005; 99212 ==

== ENCOUNTER 2022-04-01 07:16 | Outpatient (REF) | payer OTHER, SELFPAY | END 2022-04-01 07:17 | disposition home or self-care (01) | LOC: HO.HOSX 07:16 | PROVIDERS: Visit Provider Physician Assistant | DX: Z13.89 Encounter for screening for other disorder (principal) ==

== ENCOUNTER 2022-05-09 09:58 | Day surgery (SDC) | payer OTHER, SELFPAY ==
[2022-05-09 10:27] VITALS: BP 96/58; PULSE 97; RESP 16; TEMP 36.4; O2SAT 98
--- NOTE | 2022-05-09 13:02 | P.OP_ITS ---
Operative Note Operative Note Date of Service: 05/09/22 Narrative: Operative Note Preop diagnosis: 1. left ring finger Trigger finger Postop diagnosis: 1. left ring finger Trigger finger Procedure: 1. left ring finger A1 sudhakar release Surgeon: Leyda Garcia MD Anesthesia: local block using 1% lidocaine with epinephrine Findings: No locking or catching after A1 sudhakar release EBL: Less than 5 mL Tourniquet time: None Specimens: None Complications: None Disposition: Brought to recovery room in stable condition Plan: Follow-up for 10-14 days for wound check and suture removal Indications: The patient is 62 years old, with a left ring finger trigger finger that has been unresponsive to nonoperative management. The risks and benefits of operative treatment including but not limited to risk of damage to blood vessels, nerves, tendons, infection, persistent pain, persistent symptoms, recurrence or possible need for additional surgery were discussed with the patient and the patient wishes to proceed with surgery. Procedure: Once consent was obtained a local block was performed in the preop area using a combination of 1% lidocaine with epinephrine. The patient was then brought back to the operating suite and placed on the operative table in supine position. A tourniquet was applied to the proximal aspect of the left upper extremity and the limb was prepped and draped in a standard surgical fashion. Once assured that we had a good block, a 1.5 cm oblique incision was made centered over the A1 sudhakar of the left ring finger . The incision was made through the skin to the subcutaneous tissues using a #15 blade. Careful dissection was made down to the level of the A1 sudhakar using tenotomy scissors, with care being taken to protect the nearby neurovascular structures. A longitudinal incision was made in the A1 sudhakar 1st using a #15 blade, then using tenotomy scissors under direct visualization. The A1 sudhakar was noted to be thickened. Following our A1 sudhakar release, we no longer saw any locking or catching of the digit with flexion and extension. Once satisfied with our A1 sudhakar release the wound was copiously irrigated with normal saline and hemostasis was obtained with a brief period of local pressure. The skin edges were reapproximated with some 5.0 nylon suture material and a sterile dressing was applied. The patient appears to have tolerated the procedure well and with no complica tions. All digits were well vascularized at the conclusion of the case.
--- NOTE | 2022-05-09 13:02 | MHC.SHP ---
Pre-Procedural Eval Section A Date of Service: 05/09/22 The patient is an INPATIENT: No Changes since office visit: No Cold of Flu in the past 2 weeks, No New Medical Problems, No Changes in Medication and No Patient answered all questions The History & Physical has been completed within 30 days and I have reviewed it.: Yes Section B Chief Complaint: Trigger finger, left ring finger Allergies: Allergies Allergy/AdvReac Type Severity Reaction Status Date / Time No Known Allergies Allergy Verified 05/09/22 08:05 Plan I have reviewed the history and physical and performed a pertinent physical examination on my patient. No changes have occurred unless specified.
== END 2022-05-09 13:59 | disposition home or self-care (01) ==
PROVIDERS: PCP Internal Medicine; Visit Provider Orthopaedic Surgery
PROC: (CPT 26055; principal; 2022-05-09 11:10)
DX: M65.342 Trigger finger, left ring finger (principal); R20.0 Anesthesia of skin; J96.21 Acute and chronic respiratory failure with hypoxia; J44.9 Chronic obstructive pulmonary disease, unspecified; F31.9 Bipolar disorder, unspecified; M32.9 Systemic lupus erythematosus, unspecified; M79.7 Fibromyalgia; M17.0 Bilateral primary osteoarthritis of knee; M19.012 Primary osteoarthritis, left shoulder; M19.011 Primary osteoarthritis, right shoulder; M19.049 Primary osteoarthritis, unspecified hand; G47.33 Obstructive sleep apnea (adult) (pediatric); E11.9 Type 2 diabetes mellitus without complications; E66.01 Morbid (severe) obesity due to excess calories; Z68.41 Body mass index [BMI] 40.0-44.9, adult; Z99.81 Dependence on supplemental oxygen; Z79.51 Long term (current) use of inhaled steroids; Z79.899 Other long term (current) drug therapy; Z87.891 Personal history of nicotine dependence; Z86.16 Personal history of COVID-19
CPT/HCPCS: 26055; 99202; J0171

== ENCOUNTER → 2022-05-24 12:51 | Outpatient (BNVA) | payer OTHER, SELFPAY | PROVIDERS: PCP Internal Medicine; Visit Provider Orthopaedic Surgery | DX: M19.049 Primary osteoarthritis, unspecified hand (principal); M65.342 Trigger finger, left ring finger | CPT/HCPCS: 99212 ==

== ENCOUNTER → 2022-06-07 13:03 | Outpatient (REF) | payer OTHER, SELFPAY ==
--- NOTE | ~2022-06-07 | XR_ITS ---
EXAMINATION: XR SHOULDER, RIGHT XR SHOULDER, LEFT CLINICAL INFORMATION: Shoulder pain. Osteoarthritis. COMPARISON: Radiographs left shoulder 12/09/2020, radiographs right shoulder 07/29/2019. TECHNIQUE: Digital shoulder is imaged in 4 views. There are total of 8 views. FINDINGS: Right: No fracture, dislocation, destructive process. There are osteoarthritic changes glenohumeral joint with joint narrowing and spurring from the inferior medial humeral head. There is punctate calcific tendinosis adjacent to the greater tuberosity. Bulky calcification on prior study in region of infraspinatus not visible on current exam. The acromioclavicular alignment is normal. There is some widening of the acromioclavicular joint without erosion or subchondral sclerosis. Left: No fracture or dislocation or destructive process. There are osteoarthritic changes glenohumeral joint with joint narrowing and spurring from the inferomedial and superolateral humeral head. No erosive change. Orthopedic anchor overlies the humeral head. There is also electronic device overlying the upper left chest. There are degenerative changes acromioclavicular joint with superior and inferior spurring and inferior spurring acromium. No visible rotator cuff calcifications. No significant changes from prior radiographs 12/09/2020. XR/XR shoulder RT min 2V IMPRESSION: -Bilateral osteoarthritis glenohumeral joints. -Degenerative changes acromioclavicular joint, greater on left with inferior spurring acromium.
--- NOTE | ~2022-06-07 | XR_ITS ---
EXAMINATION: XR SHOULDER, RIGHT XR SHOULDER, LEFT CLINICAL INFORMATION: Shoulder pain. Osteoarthritis. COMPARISON: Radiographs left shoulder 12/09/2020, radiographs right shoulder 07/29/2019. TECHNIQUE: Digital shoulder is imaged in 4 views. There are total of 8 views. FINDINGS: Right: No fracture, dislocation, destructive process. There are osteoarthritic changes glenohumeral joint with joint narrowing and spurring from the inferior medial humeral head. There is punctate calcific tendinosis adjacent to the greater tuberosity. Bulky calcification on prior study in region of infraspinatus not visible on current exam. The acromioclavicular alignment is normal. There is some widening of the acromioclavicular joint without erosion or subchondral sclerosis. Left: No fracture or dislocation or destructive process. There are osteoarthritic changes glenohumeral joint with joint narrowing and spurring from the inferomedial and superolateral humeral head. No erosive change. Orthopedic anchor overlies the humeral head. There is also electronic device overlying the upper left chest. There are degenerative changes acromioclavicular joint with superior and inferior spurring and inferior spurring acromium. No visible rotator cuff calcifications. No significant changes from prior radiographs 12/09/2020. XR/XR shoulder LT min 2V IMPRESSION: -Bilateral osteoarthritis glenohumeral joints. -Degenerative changes acromioclavicular joint, greater on left with inferior spurring acromium.
--- NOTE | 2022-06-07 13:07 | CA_ITS ---
Transthoracic Echocardiogram Patient (Last, First, Middle): Gracy Silva, Gender: Female Date of : 1960 Age: 62 Procedure Date: 06/07/2022 Procedure Type: Transthoracic Echocardiogram Location: OP Height: 154.94 cm Weight: 100.25 kg BSA: 1.97 m2 Heart Rate: bpm BP: 115 / 75 mmHg Station Examiner: YANET Referring MD: Grady Thakkar MD Symptoms: R00.2 - Palpitations Study Quality: Technically Difficult/contrast ECG Rhythm: Sinus Conclusions: - The left ventricular systolic function is mildly decreased. The visually estimated ejection fraction is between 45-50%. - There is mild calcification of the aortic valve. - No obvious valvular pathology seen on this study. Findings Procedure Information Contrast agent, definity, is being given per protocol without apparent complications. Left Ventricle Normal left ventricular cavity size. The left ventricular systolic function is mildly decreased. The visually estimated ejection fraction is between 45 50%. There is no evidence of regional wall motion abnormalities. Diastolic function is normal for age. There is mild septal asymmetric hypertrophy. Right Ventricle Normal right ventricular cavity size and systolic function. Atria Both atria are normal in size. Aortic Valve The aortic valve was not well visualized. There is mild calcification of the aortic valve. There is no aortic valve stenosis. There is no aortic valve regurgitation. Mitral Valve The mitral valve appears normal. There is trace mitral valve regurgitation. There is no mitral valve stenosis. Pulmonic Valve The pulmonic valve is likely normal. Tricuspid Valve There is no tricuspid valve regurgitation. Tricuspid regurgitation envelope is inadequate for calculation of right ventricular systolic pressure. Great Vessels The asc aorta is normal in size. Venous The inferior vena cava is normal in size and collapses greater than 50% with inspiration. Pericardium/Pleural There is no evidence of pericardial effusion. Prior Study Comparison No significant change compared to prior study dated: 03/03/2020. Recommendations, Care & Conclusions No obvious valvular pathology seen on this study. Measurements 2D Linear Measurements IVSd: 1.07 0.6-0.9/0.6-1.0 cm LVIDd: 4.53 3.9-5.3/4.2-5.9 cm LVIDd Index: 2.30 2.4-3.2/2.2-3.1 cm/m2 LVIDs: 3.26 2.0-3.6 cm LVPWd: 0.82 0.7-1.1 cm LA Diam: 2.70 2.7-3.8/3.0-4.0 cm LAIDs Index: 1.37 1.5-2.3 cm/m2 LV Mass: 178.00 67-162/88-224 g LV Mass Index: 90.36 43-95/49-115 g/m2 LVOT Diam: 2.00 3.0+(-)1.3 cm 2D Systolic Function EF 4C: 55.80 >55% EF 2C: 50.00 >55% EF BiP: 55.50 >55% Mitral Valve MV Pk E: 0.41 MV PK A: 0.79 MV Decel Time: 181.00 E/A: 0.50 E'Lateral: 6.64 E'Medial: 4.46 E/E' Med: 9.20 E/E' Lat: 6.20 PHT: 53.00 MVA PHT: 4.15 Decel Cherry: 2.28 Aortic Valve AoV Pk Tommy: 1.44 AoV Mn Tommy: 0.97 AoV VTI: 0.27 AoV Pk Grad: 8.00 Aov Mn Grad: 4.00 MATT Cont.VTI: 1.93 LVOT LVOT Pk Tommy: 0.79 LVOT Mn Tommy: 0.52 LVOT VTI: 0.16 LVOT Pk Grad: 2.00 LVOT Mn Grad: 1.00 LVOT Diam: 2.00 LVOT Area: 3.14 Diastolic Function MV Pk E: 0.41 MV Pk A: 0.79 E/A: 0.50 E'Medial: 4.46 E/E' Med: 9.20 E' Laterial: 6.64 E/E' Lat: 6.20 Right Ventricle TAPSE (mm): 19.40 TVS' Tommy: 9.14 Tricuspid Valve RA Press: 3.00 Great Vessels Aorta Sinus of Valsalva: 2.89 2.0-3.[address] [place]: 2.29 1.7-3.4 cm Ao Asc: 2.90 2.1-3.4 cm Updated in Other Vendor System with Status of Final Bishop Garcia MD electronically signed on 06/08/2022 10:23:50 AM with status of Final
--- NOTE | 2022-06-07 13:07 | HM_ITS ---
* Total monitoring time 6 days and 17 hours. * Underlying rhythm is sinus. Average 103/Min. Range 86 to 145/Min. * About 63% the time, rate >100/min; sinus tachycardia. * No atrial fibrillation or flutter or AV blocks or pauses. * Very rare supraventricular ectopy with minimal burden. * No patient events. MTDD
== END ==
LOC: HO.CARD 13:03
PROVIDERS: Absent Provider Internal Medicine Rheumatology; PCP Internal Medicine; Visit Provider Internal Medicine Cardiovascular Disease
DX: R00.2 Palpitations (principal); M19.011 Primary osteoarthritis, right shoulder; M19.012 Primary osteoarthritis, left shoulder
CPT/HCPCS: 73030; 93242; 93306; Q9957

== ENCOUNTER 2022-06-09 11:42 | Outpatient (REF) | payer OTHER, SELFPAY ==
[2022-06-09 12:39] LABS: MANUAL DIFF FLAG NO
[2022-06-09 13:25] LABS: Basophils Absolute Auto 0.1 X10*3/uL (0.0-0.2); Eosinophils Absolute Auto 0.6 X10*3/uL (0.0-0.4); Eosinophils Percent Auto 8.1 % (0-4); Hematocrit 40.2 % (37.0-47.0); Hemoglobin 12.7 g/dl (12.0-16.0); Imm Gran Abs Auto 0.03 X10*3/uL (0.00-0.03); Imm Gran Pct Auto 0.4 % (0.0-0.4); Lymphocytes Absolute Auto 1.4 X10*3/uL (1.2-4.9); Lymphocytes Percent Auto 20.7 % (20-40); Mean Corpuscular HGB Conc 31.6 g/dl (31.0-35.0); Mean Corpuscular Hemoglobin 28.7 pg (27.0-33.0); Mean Platelet Volume 9.9 fL (9.4-12.3); Monocytes Absolute Auto 0.4 X10*3/uL (0.1-1.2); Monocytes Percent Auto 6.4 % (2-11); Neutrophils Absolute Auto 4.4 x10*3/uL (2.0-8.3); Neutrophils Percent Auto 63.4 % (45-73); Platelet Count 345 X10*3/uL (160-400); Red Blood Count 4.42 X10*6/uL (4.20-5.50); Red Cell Distribution Width 14.7 % (11.0-16.0); White Blood Count 6.9 X10*3/uL (4.8-10.8)
[2022-06-09 13:35] LABS: Appearance Urine CLEAR; Color Urine YELLOW; Glucose Urine UA NEG (NEG); Leukocyte Esterase Urine NEG (NEG); Nitrite Urine NEG (NEG); Specific Gravity - Urine <= 1.005 (1.005-1.025); Urine Blood NEG (NEG); Urine Ketones NEG (NEG); Urine Protein NEG (NEG-TRACE)
[2022-06-09 13:51] LABS: Cholesterol 213 mg/dL; HDL Cholesterol 46 mg/dL; LDL Cholesterol Calculated 140 mg/dl; Triglycerides 135 mg/dL
[2022-06-09 14:08] LABS: Creatinine Urine 27.64 mg/dL; Microalbumin Urine < 5.0 mg/L
[2022-06-09 14:11] LABS: Thyroid Stimulating Hormone 1.12 uIU/mL (0.32-4.0)
[2022-06-15 12:27] LABS: Vitamin D 25-OH, D2 <4 ng/mL; Vitamin D 25-OH, D3 22 ng/mL; Vitamin D 25-OH, Total 22 ng/mL (30-100)
== END 2022-06-09 11:43 | disposition home or self-care (01) ==
LOC: HO.LAB 11:42
PROVIDERS: PCP Internal Medicine; Visit Provider Internal Medicine
DX: J44.9 Chronic obstructive pulmonary disease, unspecified (principal); J45.50 Severe persistent asthma, uncomplicated; D64.9 Anemia, unspecified; K59.01 Slow transit constipation; E11.9 Type 2 diabetes mellitus without complications; R30.0 Dysuria; E78.5 Hyperlipidemia, unspecified; E55.9 Vitamin D deficiency, unspecified; E03.9 Hypothyroidism, unspecified; D72.19 Other eosinophilia; K21.9 Gastro-esophageal reflux disease without esophagitis; Z99.81 Dependence on supplemental oxygen
CPT/HCPCS: 36415; 80061; 81003; 82043; 82306; 84443; 85025; 99212

== ENCOUNTER → 2022-06-16 13:18 | Outpatient (BNVA) | payer OTHER, SELFPAY | PROVIDERS: PCP Internal Medicine; Visit Provider Orthopaedic Surgery | DX: M17.0 Bilateral primary osteoarthritis of knee (principal); E11.9 Type 2 diabetes mellitus without complications; J44.9 Chronic obstructive pulmonary disease, unspecified | CPT/HCPCS: 99202 ==

== ENCOUNTER 2022-06-27 12:56 | Outpatient (REF) | payer OTHER, SELFPAY | END 2022-06-27 12:57 | disposition home or self-care (01) | LOC: HO.MDS 12:56 | PROVIDERS: Visit Provider Hospitalist | DX: J45.50 Severe persistent asthma, uncomplicated (principal); J82.83 Eosinophilic asthma | CPT/HCPCS: 96372; J0517 ==

== ENCOUNTER 2022-07-09 15:14 | Emergency (ER) | payer OTHER, SELFPAY ==
--- NOTE | ~2022-07-09 | CT_ITS ---
EXAMINATION: NONCONTRAST HEAD CT NONCONTRAST CERVICAL SPINE CT INDICATION INFORMATION: Fall with head strike and neck pain COMPARISON: Head CT 01/29/2022, CT cervical spine 08/27/2021 TECHNIQUE: Separate noncontrast CT examinations of the head and cervical spine were performed. Coronal and sagittal images were created for each examination at the technologist workstation. This CT examination was performed using dose optimization techniques as appropriate, variously including the following: *Automated exposure control *Adjustment of mA and/or kV according to patient size (this includes techniques or standardized protocols for targeted exams where dose is matched to indication/reason for exam; i.e. extremities or head) *Use of iterative reconstruction technique DLP: 1453 mGy-cm FINDINGS: HEAD: No intra or extra-axial fluid collection, hemorrhage, or mass. No ventriculomegaly. No midline shift or herniation. Basal cisterns are patent. Romero-white matter differentiation is maintained. No territorial encephalomalacia. No significant volume loss. Small focus of hypoattenuation in the right bills radiata likely focus of chronic small vessel ischemic change, small lacunar infarct or dilated perivascular space. No calvarial fracture or soft tissue abnormality. The mastoid air cells and visualized portions of the paranasal sinuses are well aerated. CERVICAL SPINE: Alignment: Trace grade 1 anterolisthesis at C7-T1. No additional subluxation. Vertebra: No acute fracture. No prevertebral soft tissue swelling. Degenerative disc disease: Moderate cervical spondylosis at C4-C5, C5-C6, C6-C7, and C7-T1 with disc height loss, endplate sclerosis, and endplate proliferative change. Multilevel bilateral facet arthrosis and uncovertebral spurring. Facet arthrosis most advanced at C7-T1. Other findings: No cervical lymphadenopathy. Visualized major salivary glands and thyroid gland are unremarkable. Visualized lung apices are clear. CT/CT cervical spine wo IV con IMPRESSION: 1. No intracranial hemorrhage or calvarial fracture. 2. No traumatic subluxation or acute cervical spine fracture.
--- NOTE | ~2022-07-09 | CT_ITS ---
EXAMINATION: CT CHEST, ABDOMEN AND PELVIS WITHOUT CONTRAST CLINICAL INFORMATION: Right-sided the rib and lower abdominal pain status post fall COMPARISON: Chest CT 01/07/2021 TECHNIQUE: Multidetector volumetric imaging was performed from the thoracic inlet through the pubic symphysis. Sagittal and coronal reformatted images were obtained on the technologist's workstation. Axial MIP volume rendering provided. This CT examination was performed using dose optimization techniques as appropriate, variously including the following: *Automated exposure control *Adjustment of mA and/or kV according to patient size (this includes techniques or standardized protocols for targeted exams where dose is matched to indication/reason for exam; i.e. extremities or head) *Use of iterative reconstruction technique DLP: 1526 mGy-cm FINDINGS: CHEST: Lungs: Small calcified granulomas in the right lung and unchanged 2 mm left upper lobe pulmonary nodule compatible with benign etiology. Mild dependent bilateral atelectasis subsegmental atelectasis or scarring in the left upper lobe. No airspace consolidation. Central airways are clear. Mild bilateral lower lobe bronchiectasis. Mediastinum: No cardiomegaly or pericardial effusion. Normal caliber thoracic aorta and nondilated central pulmonary trunk. No mediastinal hematoma. No mediastinal or hilar lymphadenopathy. Pericardium/Pleura: No pleural effusion or pneumothorax Chest Wall/Axilla: Unremarkable. ABDOMEN/PELVIS: Liver, Gallbladder, Biliary Tree: Normal hepatic size. Couple of tiny calcified hepatic granulomas noted in the left liver lobe. No other liver lesion. No biliary ductal dilation. The gallbladder is unremarkable with no evidence of radiopaque gallstones, gallbladder wall thickening, or pericholecystic inflammatory changes. Pancreas: Unremarkable. Spleen: Unremarkable. Adrenal Glands: Unremarkable. Kidneys and Ureters: The kidneys are normal in size, shape, and attenuation. No hydronephrosis or hydroureter or calculi seen. No perinephric stranding. Bladder: Unremarkable. Gastrointestinal Tract: The small and large bowel are unremarkable. The appendix is unremarkable. No ascites or free air. Abdominal Wall: No hernia is demonstrated. Lymphovascular Structures: Lymph nodes: No lymphadenopathy. Vascular: Normal caliber abdominal aorta. Mild atherosclerotic vascular calcifications. No retroperitoneal hematoma. Pelvic Viscera: Status post hysterectomy. OSSEOUS STRUCTURES: No acute fracture or suspicious osseous lesion. No traumatic subluxation of the thoracolumbar spine. Multilevel degenerative disc disease with facet arthrosis. Changes characteristic of bilateral femoral head avascular necrosis without articular surface collapse or fragmentation. CT/CT abdomen pelvis wo IV con IMPRESSION: 1. No acute injury identified in the chest, abdomen, or pelvis. 2. No acute fracture. 3. Incidental finding of bilateral femoral head avascular necrosis. No articular surface collapse or fragmentation.
--- NOTE | ~2022-07-09 | XR_ITS ---
EXAMINATION: LEFT KNEE 4 VIEWS AND RIGHT KNEE 4 VIEWS CLINICAL INFORMATION: Pain COMPARISON: 11/18/2021 TECHNIQUE: As above nonweightbearing FINDINGS: Similar degree of osteoarthritis right greater than left. No acute findings. No radiopaque loose body. No effusion. Soft tissue along the distal patella tendon the right again noted. Less overlying soft tissue swelling noted on the current study. XR/XR knee LT 4V IMPRESSION: As above. Similar degree of osteoarthritis right greater than left.
--- NOTE | ~2022-07-09 | XR_ITS ---
EXAMINATION: LEFT KNEE 4 VIEWS AND RIGHT KNEE 4 VIEWS CLINICAL INFORMATION: Pain COMPARISON: 11/18/2021 TECHNIQUE: As above nonweightbearing FINDINGS: Similar degree of osteoarthritis right greater than left. No acute findings. No radiopaque loose body. No effusion. Soft tissue along the distal patella tendon the right again noted. Less overlying soft tissue swelling noted on the current study. XR/XR knee RT 4V IMPRESSION: As above. Similar degree of osteoarthritis right greater than left.
[2022-07-09 15:24] VITALS: BP 105/51; BP 170/110; PULSE 100; PULSE 97; O2SAT 97; O2SAT 99; BMI 40.8
--- NOTE | 2022-07-09 15:29 | ECG_ITS ---
Test Reason : fall Blood Pressure : / mmHG Vent. Rate : 099 BPM Atrial Rate : 099 BPM P-R Int : 166 ms QRS Dur : 088 ms QT Int : 344 ms P-R-T Axes : 032 015 025 degrees QTc Int : 441 ms Normal sinus rhythm Normal ECG When compared with ECG of 04-FEB-2022 03:20, No significant change was found Referred By: Mayda Arshad Electronically Signed By:MARTA INTERIANO
--- NOTE | 2022-07-09 15:33 | ED_ITS ---
HPI - Fall General Chief Complaint: Fall <JAIRO Cruz Last Filed: 07/09/22 21:11> Stated Complaint: FALL W/HEAD STRIKE PER EMS <JAIRO Cruz Last Filed: 07/09/22 21:11> Time Seen by Provider: 07/09/22 15:29 <JAIRO Cruz Last Filed: 07/09/22 21:11> Source: patient <JAIRO Cruz Last Filed: 07/09/22 21:11> Mode of arrival: ambulatory <JAIRO Cruz Last Filed: 07/09/22 21:11> Limitations: no limitations <JAIRO Cruz Last Filed: 07/09/22 21:11> History of Present Illness HPI Narrative: This is a 62-year-old female past medical history significant for diabetes, migraines, GERD, bipolar 1, fibromyalgia, depression, recurrent UTIs presenting to the emergency department with complaints of right-sided headache status post fall, right-sided elbow pain, bilateral knee pain, right-sided flank / abdominal pain, lower back pain . patient tells me she was walking and tripped on the corner of a couch and landed on the right side of her body, patient tells me she hit her head against the bed when she fell, no loss of consciousness, patient not on blood thinners. Patient tells me at the moment she is having palpitations. She reports that this was strictly a mechanical fall without any preceding symptoms. Patient denies chest pain, shortness of breath, nausea, vomiting, vision changes, dizziness, abdominal pain, neck pain, urinary/bowel Incontinence/retention.. Patient also tells me that she thinks she has a UTI right now complaining of dysuria, urinary frequency, urgency. <JAIRO Cruz Last Filed: 07/09/22 21:11> MD complaint: fall <JAIRO Cruz Last Filed: 07/09/22 21:11> Related Data Home Medications: Home Medications Medication Instructions Recorded Confirmed oxygen-air delivery systems ##1 08/24/20 03/02/22 Previous Rx's Medication Instructions Recorded shower seat #1 ea 11/23/20 miscellaneous medical supply #1 ea 12/22/20 lamotrigine 200 mg tablet 200 mg PO BID 30 days #60 tabs 10/21/21 (Lamictal) albuterol sulfate 90 mcg/actuation 2 puff inhalation Q4H PRN Wheezing 12/09/21 aerosol inhaler #8.5 grams levothyroxine 50 mcg tablet 50 mcg PO DAILY@0630 #90 tabs 12/09/21 loratadine 10 mg tablet 10 mg PO DAILY 30 days #30 tabs 12/09/21 montelukast 10 mg tablet 10 mg PO BEDTIME 30 days #30 tabs 12/09/21 (Singulair) Synthroid 50 mcg tablet 50 mcg PO DAILY 90 days #90 tabs 03/02/22 (levothyroxine) bupropion HCl 300 mg 24 hr tablet, 300 mg PO DAILY 90 days #90 tabs 03/02/22 extended release cromolyn 4 % eye drops 1 drp ophthalmic (eye) QID PRN 03/02/22 itching #10 mL gabapentin 300 mg capsule 300 mg PO BID 90 days #180 caps 03/02/22 pantoprazole 40 mg tablet,delayed 40 mg PO BID 90 days #180 tabs 03/18/22 release (Protonix) amitriptyline 100 mg tablet 100 mg PO BEDTIME 90 days #90 tabs 04/12/22 rdponxjukv-rlueauautzeij-aacuvjcg 1 cap PO Q8H PRN pain #24 caps 04/13/22 50 mg-300 mg-40 mg capsule (Fioricet) linaclotide 145 mcg capsule 145 mcg PO DAILY #30 caps 04/13/22 (Linzess) diphenhydramine HCl 25 mg capsule 25 mg PO BEDTIME 30 days #30 caps 04/29/22 (Banophen) electric wheelchair #1 ea 04/30/22 clonazepam 1 mg tablet 1 mg PO DAILY PRN Anxiety 30 days 06/01/22 #30 tabs zolpidem 10 mg tablet 10 mg PO BEDTIME PRN Insomnia 30 06/01/22 days #30 tabs lubiprostone 24 mcg capsule 24 mcg PO DAILY 90 days #90 caps 06/03/22 fluticasone fur. 200 mcg-umeclid 1 inh inhalation DAILY 30 days #60 06/09/22 62.5 mcg-vilant 25 mcg ea inhalat.powder (Trelegy Ellipta) prednisone 20 mg tablet See Rx Instructions PO DAILY 10 06/09/22 days #15 tabs sulfamethoxazole 800 1 tab PO BID 8 days #16 tabs 06/09/22 mg-trimethoprim 160 mg tablet (Bactrim DS) simethicone 125 mg chewable tablet 125 mg PO QID PRN abdominal 06/10/22 distention #60 tabs blood sugar diagnostic (FreeStyle #100 ea 06/11/22 Test strips) trazodone 100 mg tablet 100 mg PO BEDTIME PRN sleep 90 06/11/22 days #90 tabs benralizumab 30 mg/mL subcutaneous 30 mg subcut Q4W 12 weeks #3 mL 06/14/22 syringe (Extreme Enterprisesenra) benralizumab 30 mg/mL subcutaneous 30 mg subcut Q8W 12 months #7 mL 06/14/22 syringe (Fasenra) cholecalciferol (vitamin D3) 25 25 mcg PO DAILY #30 caps 06/30/22 mcg (1,000 unit) capsule (Vitamin D3) cyclobenzaprine 10 mg tablet 10 mg PO BEDTIME PRN muscle spasm 07/09/22 #7 tabs lidocaine 5 % topical patch 1 patch topical DAILY PRN pain #15 07/09/22 ea <JAIRO Cruz - Last Filed: 07/09/22 21:11> Allergies/Adverse Reactions: Allergies Allergy/AdvReac Type Severity Reaction Status Date / Time No Known Allergies Allergy Verified 06/16/22 13:32 <JAIRO Cruz - Last Filed: 07/09/22 21:11> Review of Systems Review of Systems: Constitutional : No Weight loss, No Fever, No Chills, No Fatigue, No Malaise ENT/Mouth : No sore throat, No Rhinorrhea Eyes: No Eye Pain, No Swelling, No Redness Cardiovascular : No Chest Pain, No SOB, No Dyspnea on Exertion, No Orthopnea, No Edema, + Palpitations Respiratory : No Cough, No Sputum, No Wheezing Gastrointestinal : No Nausea, No Vomiting, No Diarrhea, No Constipation, No abdominal Pain, No Hematochezia, No Melena Genitourinary : + Dysuria, + Urinary Frequency, No Hematuria, Musculoskeletal : + joint pain, No Myalgias, No Joint Swelling Skin : No Skin Lesions, No rash Neuro : No Weakness, No Numbness, No Dizziness, + Headache Psych : No Anxiety/Panic, No Depression All other systems reviewed and are negative <JAIRO Cruz - Last Filed: 07/09/22 21:11> Yes all other systems are reviewed and are negative <JAIRO Cruz - Last Filed: 07/09/22 21:11> [facility] Past Medical History Attestation statement: The following information was validated with the patient. <JAIRO Cruz - Last Filed: 07/09/22 21:11> Source: old records reviewed and nursing notes reviewed <JAIRO Cruz - Last Filed: 07/09/22 21:11> Medical History: Medical History Acute and chronic respiratory failure with hypoxia Asthma-COPD overlap syndrome Bipolar 1 disorder COPD (chronic obstructive pulmonary disease) COVID-19 Depression with anxiety Diabetes Eosinophilia GERD (gastroesophageal reflux disease) Hemangioma History of ESBL E. coli infection Hypothyroidism Hypovitaminosis D Insomnia Lumbar degenerative disc disease Lupus (systemic lupus erythematosus) Moderate recurrent major depression Morbid obesity with BMI of 40.0-44.9, adult Neck mass Obesity Obstructive sleep apnea Oxygen dependent Polyarthralgia Recurrent UTI Severe asthma Tachycardia Trigger finger of right hand Urinary retention <JAIRO Cruz - Last Filed: 07/09/22 21:11> Surgical History: Surgical History History of carpal tunnel release History of section History of colonoscopy History of cystocele History of hysterectomy History of shoulder surgery History of tonsillectomy <JAIRO Cruz - Last Filed: 07/09/22 21:11> Family History Family History: Family History Father No problems noted. Mother No problems noted. 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 Cognitive needs: Yes Hearing needs: No Vision needs: Yes <JAIRO Cruz - Last Filed: 07/09/22 21:11> Physical Exam Vital Signs: Vital Signs: Last Vital Signs Temp 97.8 F 07/09/22 21:59 Pulse 97 07/09/22 21:59 Resp 16 07/09/22 21:59 BP 127/70 07/09/22 21:59 Pulse Ox 98 07/09/22 21:59 O2 Del Method 07/09/22 21:59 BMI result Body Mass Index 40.8 vss <JAIRO Cruz - Last Filed: 07/09/22 21:11> Vital Signs: Last Vital Signs Temp 97.8 F 07/09/22 21:59 Pulse 97 07/09/22 21:59 Resp 16 07/09/22 21:59 BP 127/70 07/09/22 21:59 Pulse Ox 98 07/09/22 21:59 O2 Del Method 07/09/22 21:59 BMI result Body Mass Index 40.8 <JAIRO aGllagher - Last Filed: 07/09/22 23:34> Appearance: Alert.? Oriented X3.? No acute distress.? Head: Normocephalic, atraumatic, no step-offs or deformities Eyes: Pupils equal, round and reactive to light.? ENT: Pharynx normal.? Neck: Normal inspection.? Neck supple.? CVS: Normal heart rate and rhythm.? Pulses normal.? Respiratory: No respiratory distress.? Breath sounds normal.? Abdomen: Soft and nontender.? Skin: Skin warm and dry.? Normal skin color.? Normal skin turgor.? Extremities: No lower extremity edema.? No calf ttp. 5/5 strength to bilateral upper and lower extremities . Painful range of motion to bilateral knees however no gross abnormalities, no evidense of ligament or tendon injuries. Back: No midline tenderness, no C-spine tenderness, full range of motion, no CVA tenderness bilaterally Neuro: Oriented X 3.? No motor deficit.? No sensory deficit. CN 2-12 intact. No saddle paresthesias <JAIRO Cruz - Last Filed: 07/09/22 21:11> Course Reevaluation(s) Reevaluation #1: CBC within normal limits. Chemistry with no acute electrolyte abnormalities requiring intervention. Troponin negative, EKG nonischemic. Patient denies chest pain, shortness of breath, low suspicion for PE, or ACS. CT of the chest, abdomen, pelvis, head and cervical spine within normal limits. There is avascular necrosis of bilateral femoral necks, educated patient on this, advised her to follow-up with her PCP. X-ray of bilateral knees with no acute findings. Pending UA. <JAIRO Cruz - Last Filed: 07/09/22 21:11> Time: 19:29 <JAIRO Cruz Last Filed: 07/09/22 21:11> Reevaluation #2: Urine is still pending. As well as re-evaluation of the patient and ambulation. I suspect that if patient can ambulate she can be discharged home, if any other findings are abnormal on exam or if patient cannot ambulate she may require hospital admission or PT Case Management. Sign out to Rosio GILL <JAIRO Cruz - Last Filed: 07/09/22 21:11> Time: 21:11 <JAIRO Cruz - Last Filed: 07/09/22 21:11> Reevaluation #3: Urinalysis is negative for infection with only small LE, no bacteria and 0-5 WBC. She is still having some pain in her back and right lower extremity but she is wanting to get up and ambulate with her walker. She is determined to go home tonight. She does not want to go to an acute rehab. <JAIRO Gallagher Last Filed: 07/09/22 23:34> Time: 23:34 <JAIRO Gallagher Last Filed: 07/09/22 23:34> Additional Reevaluation(s): Patient did well with a walker. She would like to go home. She is stable for discharge. <JAIRO Gallagher - Last Filed: 07/09/22 23:34> MDM - Fall MDM Narrative Medical decision making narrative: 1530 62 year old female presents s/p fall w/ head strike compliang of pain to r. elbow, b/l knee pain Physical examination benign. No focal neuro deficits. Regular rate and rhythm, lungs clear, abdomen soft nontender nondistended. Plan at this time is to obtain a CT of head, cervical spine, will obtain a chest x-ray as patient fell. will obtain basic labs, urine to rule out infection, electrolyte abnormalities. Based off patient history and physical examination low suspicion for intracranial hemorrhage, subarachnoid hemorrhage, posterior stroke. <JAIRO Cruz - Last Filed: 07/09/22 21:11> Medical Records Attestation: I reviewed the patient's medical records. <JAIRO Cruz - Last Filed: 07/09/22 21:11> Lab Data Attestation: I reviewed the patient's lab results. <JAIRO Cruz - Last Filed: 07/09/22 21:11> Result diagrams: : 07/09/22 16:44 07/09/22 16:44 <JAIRO Cruz - Last Filed: 07/09/22 21:11> Labs: Lab Results 07/09/22 07/09/22 07/09/22 Range/Units 16:44 16:44 16:44 WBC 6.5 (4.8-10.8) X10*3/uL RBC 4.40 (4.20-5.50) X10*6/uL Hgb 12.7 (12.0-16.0) g/dl Hct 40.2 (37.0-47.0) % MCV 91.4 (80.0-98.0) fL MCH 28.9 (27.0-33.0) pg MCHC 31.6 (31.0-35.0) g/dl RDW 14.2 (11.0-16.0) % Plt Count 291 (160-400) X10*3/uL MPV 9.5 (9.4-12.3) fL Immature Gran % (Auto) 0.3 (0.0-0.4) % Neut % (Auto) 65.6 (45-73) % Lymph % (Auto) 24.8 (20-40) % [place] % (Auto) 9.1 (2-11) % Eos % (Auto) 0.0 (0-4) % Baso % (Auto) 0.2 (0-2) % Lymph # (Auto) 1.6 (1.2-4.9) X10*3/uL [place] # (Auto) 0.6 (0.1-1.2) X10*3/uL Eos # (Auto) 0.0 (0.0-0.4) X10*3/uL Baso # (Auto) 0.0 (0.0-0.2) X10*3/uL Abs Immat Gran (auto) 0.02 (0.00-0.03) X10*3/uL Absolute Neuts (auto) 4.3 (2.0-8.3) x10*3/uL Absolute Nucleated RBC 0.000 (0.0-0.012) X10*3/uL Nucleated RBC % (auto) 0.0 (0.0-0.2) /100WBC Sodium 141 (135-145) mmol/L Potassium 4.2 (3.3-5.1) mmol/L Chloride 111 H (96-108) mmol/L Carbon Dioxide 19 L (22-29) mmol/L Anion Gap 15 (12-20) BUN 6 L D (9-16) mg/dL Creatinine 0.82 (0.5-1.4) mg/dL Estim Creat Clear Calc 74.2 Estimated GFR > 60 Random Glucose 85 (60-115) mg/dL Calcium 9.0 (8.4-10.2) mg/dL Magnesium 1.9 (1.6-2.6) mg/dL Total Bilirubin 0.2 (0.0-1.0) mg/dL AST 20 (5-31) U/L ALT 15 (0-31) U/L Alkaline Phosphatase 92 (39-117) U/L Troponin I High Sens < 3.5 (<3.5-17.0) ng/L Total Protein 6.8 (6.5-8.0) g/dL Albumin 3.8 (3.5-5.0) g/dL Urine Color Urine Appearance Urine pH (5.0-9.0) Ur Specific [place] (1.005-1.025) Urine Protein (Neg-Trace) mg/dL Urine Glucose (UA) (Negative) mg/dL Urine Ketones (Negative) mg/dL Urine Blood (Negative) Urine Nitrite (Negative) Ur Leukocyte Esterase (Negative) Urine RBC (0-2) /HPF Urine WBC (0-5) /HPF Ur Squamous Epith Cells (0-2) /HPF Urine Bacteria (None Seen) Hyaline Casts (0-2) /LPF 07/09/22 Range/Units 21:23 WBC (4.8-10.8) X10*3/uL RBC (4.20-5.50) X10*6/uL Hgb (12.0-16.0) g/dl Hct (37.0-47.0) % MCV (80.0-98.0) fL MCH (27.0-33.0) pg MCHC (31.0-35.0) g/dl RDW (11.0-16.0) % Plt Count (160-400) X10*3/uL MPV (9.4-12.3) fL Immature Gran % (Auto) (0.0-0.4) % Neut % (Auto) (45-73) % Lymph % (Auto) (20-40) % [place] % (Auto) (2-11) % Eos % (Auto) (0-4) % Baso % (Auto) (0-2) % Lymph # (Auto) (1.2-4.9) X10*3/uL [place] # (Auto) (0.1-1.2) X10*3/uL Eos # (Auto) (0.0-0.4) X10*3/uL Baso # (Auto) (0.0-0.2) X10*3/uL Abs Immat Gran (auto) (0.00-0.03) X10*3/uL Absolute Neuts (auto) (2.0-8.3) x10*3/uL Absolute Nucleated RBC (0.0-0.012) X10*3/uL Nucleated RBC % (auto) (0.0-0.2) /100WBC Sodium (135-145) mmol/L Potassium (3.3-5.1) mmol/L Chloride (96-108) mmol/L Carbon Dioxide (22-29) mmol/L Anion Gap (12-20) BUN (9-16) mg/dL Creatinine (0.5-1.4) mg/dL Estim Creat Clear Calc Estimated GFR Random Glucose (60-115) mg/dL Calcium (8.4-10.2) mg/dL Magnesium (1.6-2.6) mg/dL Total Bilirubin (0.0-1.0) mg/dL AST (5-31) U/L ALT (0-31) U/L Alkaline Phosphatase (39-117) U/L Troponin I High Sens (<3.5-17.0) ng/L Total Protein (6.5-8.0) g/dL Albumin (3.5-5.0) g/dL Urine Color Yellow Urine Appearance Clear Urine pH 7.5 (5.0-9.0) Ur Specific Bowdle <= 1.005 (1.005-1.025) Urine Protein Negative (Neg-Trace) mg/dL Urine Glucose (UA) Negative (Negative) mg/dL Urine Ketones Negative (Negative) mg/dL Urine Blood Negative (Negative) Urine Nitrite Negative (Negative) Ur Leukocyte Esterase Small (1+) H (Negative) Urine RBC 0-2 (0-2) /HPF Urine WBC 0-5 (0-5) /HPF Ur Squamous Epith Cells 0-2 (0-2) /HPF Urine Bacteria None Seen (None Seen) Hyaline Casts 0-2 (0-2) /LPF <JAIRO Cruz - Last Filed: 07/09/22 21:11> Lab Results 07/09/22 07/09/22 07/09/22 Range/Units 16:44 16:44 16:44 WBC 6.5 (4.8-10.8) X10*3/uL RBC 4.40 (4.20-5.50) X10*6/uL Hgb 12.7 (12.0-16.0) g/dl Hct 40.2 (37.0-47.0) % MCV 91.4 (80.0-98.0) fL MCH 28.9 (27.0-33.0) pg MCHC 31.6 (31.0-35.0) g/dl RDW 14.2 (11.0-16.0) % Plt Count 291 (160-400) X10*3/uL MPV 9.5 (9.4-12.3) fL Immature Gran % (Auto) 0.3 (0.0-0.4) % Neut % (Auto) 65.6 (45-73) % Lymph % (Auto) 24.8 (20-40) % [place] % (Auto) 9.1 (2-11) % Eos % (Auto) 0.0 (0-4) % Baso % (Auto) 0.2 (0-2) % Lymph # (Auto) 1.6 (1.2-4.9) X10*3/uL [place] # (Auto) 0.6 (0.1-1.2) X10*3/uL Eos # (Auto) 0.0 (0.0-0.4) X10*3/uL Baso # (Auto) 0.0 (0.0-0.2) X10*3/uL Abs Immat Gran (auto) 0.02 (0.00-0.03) X10*3/uL Absolute Neuts (auto) 4.3 (2.0-8.3) x10*3/uL Absolute Nucleated RBC 0.000 (0.0-0.012) X10*3/uL Nucleated RBC % (auto) 0.0 (0.0-0.2) /100WBC Sodium 141 (135-145) mmol/L Potassium 4.2 (3.3-5.1) mmol/L Chloride 111 H (96-108) mmol/L Carbon Dioxide 19 L (22-29) mmol/L Anion Gap 15 (12-20) BUN 6 L D (9-16) mg/dL Creatinine 0.82 (0.5-1.4) mg/dL Estim Creat Clear Calc 74.2 Estimated GFR > 60 Random Glucose 85 (60-115) mg/dL Calcium 9.0 (8.4-10.2) mg/dL Magnesium 1.9 (1.6-2.6) mg/dL Total Bilirubin 0.2 (0.0-1.0) mg/dL AST 20 (5-31) U/L ALT 15 (0-31) U/L Alkaline Phosphatase 92 (39-117) U/L Troponin I High Sens < 3.5 (<3.5-17.0) ng/L Total Protein 6.8 (6.5-8.0) g/dL Albumin 3.8 (3.5-5.0) g/dL Urine Color Urine Appearance Urine pH (5.0-9.0) Ur Specific [place] (1.005-1.025) Urine Protein (Neg-Trace) mg/dL Urine Glucose (UA) (Negative) mg/dL Urine Ketones (Negative) mg/dL Urine Blood (Negative) Urine Nitrite (Negative) Ur Leukocyte Esterase (Negative) Urine RBC (0-2) /HPF Urine WBC (0-5) /HPF Ur Squamous Epith Cells (0-2) /HPF Urine Bacteria (None Seen) Hyaline Casts (0-2) /LPF 07/09/22 Range/Units 21:23 WBC (4.8-10.8) X10*3/uL RBC (4.20-5.50) X10*6/uL Hgb (12.0-16.0) g/dl Hct (37.0-47.0) % MCV (80.0-98.0) fL MCH (27.0-33.0) pg MCHC (31.0-35.0) g/dl RDW (11.0-16.0) % Plt Count (160-400) X10*3/uL MPV (9.4-12.3) fL Immature Gran % (Auto) (0.0-0.4) % Neut % (Auto) (45-73) % Lymph % (Auto) (20-40) % [place] % (Auto) (2-11) % Eos % (Auto) (0-4) % Baso % (Auto) (0-2) % Lymph # (Auto) (1.2-4.9) X10*3/uL [place] # (Auto) (0.1-1.2) X10*3/uL Eos # (Auto) (0.0-0.4) X10*3/uL Baso # (Auto) (0.0-0.2) X10*3/uL Abs Immat Gran (auto) (0.00-0.03) X10*3/uL Absolute Neuts (auto) (2.0-8.3) x10*3/uL Absolute Nucleated RBC (0.0-0.012) X10*3/uL Nucleated RBC % (auto) (0.0-0.2) /100WBC Sodium (135-145) mmol/L Potassium (3.3-5.1) mmol/L Chloride (96-108) mmol/L Carbon Dioxide (22-29) mmol/L Anion Gap (12-20) BUN (9-16) mg/dL Creatinine (0.5-1.4) mg/dL Estim Creat Clear Calc Estimated GFR Random Glucose (60-115) mg/dL Calcium (8.4-10.2) mg/dL Magnesium (1.6-2.6) mg/dL Total Bilirubin (0.0-1.0) mg/dL AST (5-31) U/L ALT (0-31) U/L Alkaline Phosphatase (39-117) U/L Troponin I High Sens (<3.5-17.0) ng/L Total Protein (6.5-8.0) g/dL Albumin (3.5-5.0) g/dL Urine Color Yellow Urine Appearance Clear Urine pH 7.5 (5.0-9.0) Ur Specific [place] <= 1.005 (1.005-1.025) Urine Protein Negative (Neg-Trace) mg/dL Urine Glucose (UA) Negative (Negative) mg/dL Urine Ketones Negative (Negative) mg/dL Urine Blood Negative (Negative) Urine Nitrite Negative (Negative) Ur Leukocyte Esterase Small (1+) H (Negative) Urine RBC 0-2 (0-2) /HPF Urine WBC 0-5 (0-5) /HPF Ur Squamous Epith Cells 0-2 (0-2) /HPF Urine Bacteria None Seen (None Seen) Hyaline Casts 0-2 (0-2) /LPF <JAIRO Gallagher - Last Filed: 07/09/22 23:34> Critical Care Time Critical Care Time Critical Care Time: No <JAIRO Cruz - Last Filed: 07/09/22 21:11> Discharge Plan Discharge Clinical Impression: Fall, Bilateral knee pain, Elbow pain, Back pain, Osteoarthritis, Avascular necrosis <JAIRO Cruz Last Filed: 07/09/22 21:11> Patient Disposition: Home, Self-Care <JAIRO Cruz Last Filed: 07/09/22 21:11> Instructions: Fall Prevention for Older Adults (ED), Knee Pain (ED), Back Pain (ED), Fall Prevention (ED) <JAIRO Cruz Last Filed: 07/09/22 21:11> Additional Instructions: Take your medications as prescribed. If you were prescribed antibiotics today, it is important that you take your medication to their entirety, do not skip any doses, do not finish them early. Follow-up with your primary care provider this week. Return to the emergency department with new or worsening symptoms. Such as fevers, chills, chest pain, shortness of breath, nausea, vomiting, dizziness, headache, vision changes, lethargy In case of emergency call 911 Cyclobenzaprine has been sent to pharmacy is a muscle relaxer, please do not take this while driving or operating machinery. It can make you drowsy. <JAIRO Cruz Last Filed: 07/09/22 21:11> Prescriptions: New cyclobenzaprine 10 mg tablet 10 mg PO BEDTIME PRN (Reason: muscle spasm) Qty: 7 0RF lidocaine 5 % adhesive patch,medicated 1 patch topical DAILY PRN (Reason: pain) Qty: 15 0RF Rx Instructions: leave on most painful area for up to 12 hrs No Action (DME) shower seat See Rx Instructions .Route .MEDSUPPLY Qty: 1 0RF Rx Instructions: As directed (DME) miscellaneous medical supply Misc See Rx Instructions .ROUTE .MEDSUPPLY Qty: 1 0RF Rx Instructions: OVERBED TABLE lamotrigine [Lamictal] 200 mg tablet 200 mg PO BID 30 Days Qty: 60 11RF pantoprazole [Protonix] 40 mg tablet,delayed release (DR/EC) 40 mg PO BID 90 Days Qty: 180 3RF amitriptyline 100 mg tablet 100 mg PO BEDTIME 90 Days Qty: 90 1RF iassdfeeou-ubqoomfdevnca-batv [Fioricet] 50-300-40 mg capsule 1 cap PO Q8H PRN (Reason: pain) Qty: 24 0RF Linzess 145 mcg capsule 145 mcg PO DAILY Qty: 30 3RF diphenhydramine HCl [Banophen] 25 mg capsule 25 mg PO BEDTIME 30 Days Qty: 30 0RF (DME) electric wheelchair See Rx Instructions .Route .MEDSUPPLY Qty: 1 0RF Rx Instructions: As directed zolpidem 10 mg tablet 10 mg PO BEDTIME PRN (Reason: Insomnia) 30 Days Qty: 30 0RF clonazepam 1 mg tablet 1 mg PO DAILY PRN (Reason: Anxiety) 30 Days Qty: 30 0RF lubiprostone 24 mcg capsule 24 mcg PO DAILY 90 Days Qty: 90 0RF simethicone 125 mg tablet,chewable 125 mg PO QID PRN (Reason: abdominal distention) Qty: 60 0RF trazodone 100 mg tablet 100 mg PO BEDTIME PRN (Reason: sleep) 90 Days Qty: 90 0RF (DME) FreeStyle Test Strip See Rx Instructions .Route Qty: 100 3RF Rx Instructions: Use 1 test strip once a day Fasenra 30 mg/mL syringe 30 mg subcut Q8W 360 Days Qty: 7 0RF Fasenra 30 mg/mL syringe 30 mg subcut Q4W 84 Days Qty: 3 0RF Rx Instructions: loading dose: 30mg SC Q4 weeks x 3 doses cholecalciferol (vitamin D3) [Vitamin D3] 25 mcg (1,000 unit) capsule 25 mcg PO DAILY Qty: 30 1RF (DME) oxygen-air delivery systems Device See Rx Instructions .ROUTE .MEDSUPPLY Qty: 1 Rx Instructions: As directed bupropion HCl 300 mg tablet extended release 24 hr 300 mg PO DAILY 90 Days Qty: 90 1RF gabapentin 300 mg capsule 300 mg PO BID 90 Days Qty: 180 0RF levothyroxine [Synthroid] 50 mcg tablet 50 mcg PO DAILY 90 Days Qty: 90 0RF cromolyn 4 % drops 1 drp ophthalmic (eye) QID PRN (Reason: itching) Qty: 10 0RF levothyroxine 50 mcg tablet 50 mcg PO DAILY@0630 Qty: 90 0RF albuterol sulfate 90 mcg/actuation HFA aerosol inhaler 2 puff inhalation Q4H PRN (Reason: Wheezing) Qty: 8.5 11RF loratadine 10 mg tablet 10 mg PO DAILY 30 Days Qty: 30 11RF montelukast [Singulair] 10 mg tablet 10 mg PO BEDTIME 30 Days Qty: 30 11RF Trelegy Ellipta 200-62.5-25 mcg blister with device 1 inh inhalation DAILY 30 Days Qty: 60 12RF sulfamethoxazole-trimethoprim [Bactrim DS] 800-160 mg tablet 1 tab PO BID 8 Days Qty: 16 0RF prednisone 20 mg tablet See Rx Instructions PO DAILY 10 Days Qty: 15 0RF Rx Instructions: PO daily; Take 2 tabs daily x 5 days, then 1 tablet daily x 5 days <JAIRO Cruz - Last Filed: 07/09/22 21:11> Referrals: Farideh Starr MD [Primary Care Provider] - 2 days <JAIRO Cruz - Last Filed: 07/09/22 21:11>
[2022-07-09 16:00] VITALS: BP 110/70; PULSE 64; RESP 16; TEMP 36.6; O2SAT 98
[2022-07-09 16:55] LABS: MANUAL DIFF FLAG NO
[2022-07-09 16:56] LABS: Basophils Percent Auto 0.2 % (0-2); Hematocrit 40.2 % (37.0-47.0); Hemoglobin 12.7 g/dl (12.0-16.0); Imm Gran Abs Auto 0.02 X10*3/uL (0.00-0.03); Imm Gran Pct Auto 0.3 % (0.0-0.4); Lymphocytes Absolute Auto 1.6 X10*3/uL (1.2-4.9); Lymphocytes Percent Auto 24.8 % (20-40); Mean Corpuscular HGB Conc 31.6 g/dl (31.0-35.0); Mean Corpuscular Hemoglobin 28.9 pg (27.0-33.0); Mean Corpuscular Volume 91.4 fL (80.0-98.0); Mean Platelet Volume 9.5 fL (9.4-12.3); Monocytes Absolute Auto 0.6 X10*3/uL (0.1-1.2); Monocytes Percent Auto 9.1 % (2-11); Neutrophils Absolute Auto 4.3 x10*3/uL (2.0-8.3); Neutrophils Percent Auto 65.6 % (45-73); Platelet Count 291 X10*3/uL (160-400); Red Cell Distribution Width 14.2 % (11.0-16.0); White Blood Count 6.5 X10*3/uL (4.8-10.8)
[2022-07-09 17:15] LABS: Alanine Aminotransferase 15 U/L (0-31); Albumin Level 3.8 g/dL (3.5-5.0); Alkaline Phosphatase 92 U/L (39-117); Anion Gap 15 (12-20); Aspartate Amino Transferase 20 U/L (5-31); Bilirubin Total 0.2 mg/dL (0.0-1.0); Blood Urea Nitrogen 6 mg/dL (9-16); Carbon Dioxide 19 mmol/L (22-29); Chloride 111 mmol/L (96-108); Creatinine Clr Calc Pharmacy 74.2; Estimated Glomerular Filt Rate > 60; Glucose Random 85 mg/dL (60-115); Magnesium 1.9 mg/dL (1.6-2.6); Potassium 4.2 mmol/L (3.3-5.1); Sodium 141 mmol/L (135-145); Total Protein 6.8 g/dL (6.5-8.0)
[2022-07-09 17:16] LABS: Troponin-I High Sensitivity < 3.5 ng/L (<3.5-17.0)
[2022-07-09 20:00] VITALS: BP 112/70; PULSE 74; RESP 16; TEMP 36.6; O2SAT 98
[2022-07-09 21:29] LABS: Appearance Urine Clear; Color Urine Yellow; Glucose Urine UA Negative (Negative); Leukocyte Esterase Urine Small (1+) (Negative); Nitrite Urine Negative (Negative); PH 7.5 (5.0-9.0); Specific Gravity - Urine <= 1.005 (1.005-1.025); Urine Blood Negative (Negative); Urine Ketones Negative (Negative); Urine Protein Negative (Neg-Trace)
--- NOTE | 2022-07-09 21:31 | PC.NURSE ---
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
[2022-07-09 21:37] LABS: Bacteria Urine None Seen (None Seen); Hyaline Casts Urine 0-2 /LPF (0-2); RBC Urine 0-2 /HPF (0-2); Squamous Epithelial Cell Urine 0-2 /HPF (0-2); UACC Culture Trigger YES; WBC Urine 0-5 /HPF (0-5)
[2022-07-09 21:59] VITALS: BP 127/70; PULSE 97; RESP 16; TEMP 36.6; O2SAT 98
[2022-07-10] VITALS: BP 123/71; PULSE 90; RESP 16; TEMP 36.4; O2SAT 98
--- NOTE | 2022-07-10 00:21 | PC.NURSE ---
Action called at 2348 for a BLS transfer home per Rosio GILL. ETA about an hour Rn aware.
== END 2022-07-10 00:51 | disposition home or self-care (01) ==
PROVIDERS: Physician Assistant; Emergency Provider Emergency Medicine; PCP Internal Medicine
DX: M25.562 Pain in left knee (principal); M25.561 Pain in right knee; M25.521 Pain in right elbow; M54.50 Low back pain, unspecified; M19.90 Unspecified osteoarthritis, unspecified site; M87.9 Osteonecrosis, unspecified; R00.2 Palpitations; E11.9 Type 2 diabetes mellitus without complications; E66.01 Morbid (severe) obesity due to excess calories; Z68.41 Body mass index [BMI] 40.0-44.9, adult; Z91.81 History of falling; Z79.899 Other long term (current) drug therapy
CPT/HCPCS: 36415; 70450; 71250; 72125; 73564; 74176; 80053; 81001; 83735; 84484; 85025; 87086; 93005; 99285

== ENCOUNTER 2022-07-13 13:45 | Outpatient (REF) | payer OTHER, SELFPAY ==
[2022-07-13 14:46] LABS: Prothrombin Time 11.1 SEC (10.0-13.1)
== END 2022-07-13 13:46 | disposition home or self-care (01) ==
LOC: HO.LAB 13:45
PROVIDERS: PCP Internal Medicine; Visit Provider Internal Medicine Cardiovascular Disease
DX: I42.9 Cardiomyopathy, unspecified (principal); Z79.899 Other long term (current) drug therapy
CPT/HCPCS: 36415; 85610; 99212

== ENCOUNTER → 2022-07-14 13:37 | Outpatient (BNVA) | payer OTHER, SELFPAY | PROVIDERS: PCP Internal Medicine; Visit Provider Orthopaedic Surgery | DX: M17.0 Bilateral primary osteoarthritis of knee (principal) | CPT/HCPCS: 20610; 99212; J7318 ==

== ENCOUNTER 2022-07-25 13:04 | Outpatient (REF) | payer OTHER, SELFPAY | END 2022-07-25 13:05 | disposition home or self-care (01) | LOC: HO.MDS 13:04 | PROVIDERS: Visit Provider Hospitalist | DX: J45.50 Severe persistent asthma, uncomplicated (principal); J82.83 Eosinophilic asthma | CPT/HCPCS: 96372; J0517 ==

== ENCOUNTER → 2022-08-01 11:27 | Outpatient (BNVA) | payer OTHER, SELFPAY | PROVIDERS: PCP Internal Medicine; Visit Provider Internal Medicine Gastroenterology | DX: K59.00 Constipation, unspecified (principal); K62.5 Hemorrhage of anus and rectum; R10.10 Upper abdominal pain, unspecified | CPT/HCPCS: 99212 ==

== ENCOUNTER 2022-08-24 10:44 | Outpatient (REF) | payer OTHER, SELFPAY | END 2022-08-24 10:45 | disposition home or self-care (01) | LOC: HO.MDS 10:44 | PROVIDERS: PCP Internal Medicine; Visit Provider Hospitalist | DX: J45.50 Severe persistent asthma, uncomplicated (principal); J82.83 Eosinophilic asthma | CPT/HCPCS: 96372; J0517 ==

== ENCOUNTER → 2022-08-29 13:54 | Outpatient (BNVA) | payer OTHER, SELFPAY | PROVIDERS: PCP Internal Medicine; Referring Provider Internal Medicine; Visit Provider Internal Medicine Cardiovascular Disease | DX: I95.9 Hypotension, unspecified (principal); I42.9 Cardiomyopathy, unspecified; I25.10 Atherosclerotic heart disease of native coronary artery without angina pectoris | CPT/HCPCS: 99212 ==

== ENCOUNTER 2022-09-07 09:57 | Outpatient (REF) | payer OTHER, SELFPAY ==
[2022-09-07 10:59] LABS: Appearance Urine Clear; Color Urine Yellow; Glucose Urine UA Negative (Negative); Leukocyte Esterase Urine Moderate (2+) (Negative); Nitrite Urine Negative (Negative); PH 7.5 (5.0-9.0); UMIC TRIGGER UACC YES; Urine Blood Negative (Negative); Urine Ketones Negative (Negative); Urine Protein Negative (Neg-Trace)
[2022-09-07 11:31] LABS: Anion Gap 15 (12-20); Blood Urea Nitrogen 12 mg/dL (9-16); Calcium 9.3 mg/dL (8.4-10.2); Carbon Dioxide 25 mmol/L (22-29); Chloride 106 mmol/L (96-108); Cholesterol 208 mg/dL; Estimated Glomerular Filt Rate > 60; Glucose Random 99 mg/dL (60-115); HDL Cholesterol 37 mg/dL; LDL Cholesterol Calculated 137 mg/dl; Potassium 4.5 mmol/L (3.3-5.1); Sodium 141 mmol/L (135-145); Triglycerides 172 mg/dL
[2022-09-07 11:43] LABS: Vitamin D 25-OH Total 27.5 ng/mL (>30)
[2022-09-07 11:49] LABS: Bacteria Urine None Seen (None Seen); Hyaline Casts Urine 0-2 /LPF (0-2); RBC Urine 0-2 /HPF (0-2); Squamous Epithelial Cell Urine 0-2 /HPF (0-2); WBC Urine 0-5 /HPF (0-5)
[2022-09-07 11:53] LABS: Cortisol Random 5.5 ug/dL
== END 2022-09-07 09:58 | disposition home or self-care (01) ==
LOC: HO.LAB 09:57
PROVIDERS: Absent Provider Hospitalist; PCP Internal Medicine; Visit Provider Internal Medicine Cardiovascular Disease
DX: J84.9 Interstitial pulmonary disease, unspecified (principal); J45.50 Severe persistent asthma, uncomplicated; J44.9 Chronic obstructive pulmonary disease, unspecified; I95.9 Hypotension, unspecified; I42.9 Cardiomyopathy, unspecified; E55.9 Vitamin D deficiency, unspecified; E78.5 Hyperlipidemia, unspecified; E03.9 Hypothyroidism, unspecified; K21.9 Gastro-esophageal reflux disease without esophagitis; D72.19 Other eosinophilia; I25.10 Atherosclerotic heart disease of native coronary artery without angina pectoris; G47.33 Obstructive sleep apnea (adult) (pediatric); Z99.89 Dependence on other enabling machines and devices; Z99.81 Dependence on supplemental oxygen; Z79.899 Other long term (current) drug therapy; N39.0 Urinary tract infection, site not specified
CPT/HCPCS: 36415; 80048; 80061; 81001; 81003; 82306; 82533; 84443; 99212

== ENCOUNTER → 2022-09-15 12:43 | Outpatient (BNVA) | payer OTHER, SELFPAY | PROVIDERS: PCP Internal Medicine; Visit Provider Hospitalist | DX: J45.50 Severe persistent asthma, uncomplicated (principal) | CPT/HCPCS: 94618; 99211 ==

== ENCOUNTER 2022-10-19 11:30 | Outpatient (REF) | payer OTHER, SELFPAY | END 2022-10-19 11:31 | disposition home or self-care (01) | LOC: HO.MDS 11:30 | PROVIDERS: Visit Provider Hospitalist | DX: J45.50 Severe persistent asthma, uncomplicated (principal); J82.83 Eosinophilic asthma | CPT/HCPCS: 96372 ==

== ENCOUNTER 2022-12-14 10:00 | Outpatient (REF) | payer OTHER, SELFPAY | END 2022-12-14 10:01 | disposition home or self-care (01) | LOC: HO.LNP 10:00 | PROVIDERS: PCP Internal Medicine; Visit Provider Obstetrics & Gynecology | DX: Z13.89 Encounter for screening for other disorder (principal) ==

== ENCOUNTER 2022-12-14 11:08 | Outpatient (REF) | payer OTHER, SELFPAY ==
[2022-12-15 11:14] LABS: BV Int Neg Control Negative (Negative); BV Int Pos Control Positive (Positive)
== END 2022-12-14 11:09 | disposition home or self-care (01) ==
LOC: HO.LAB 11:08
PROVIDERS: PCP Internal Medicine; Visit Provider Obstetrics & Gynecology
DX: Z01.419 Encounter for gynecological examination (general) (routine) without abnormal findings (principal)
CPT/HCPCS: 87480; 87510; 87660

== ENCOUNTER 2022-12-15 12:13 | Outpatient (REF) | payer OTHER, SELFPAY | END 2022-12-15 12:14 | disposition home or self-care (01) | LOC: HO.MDS 12:13 | PROVIDERS: Visit Provider Hospitalist | DX: J45.50 Severe persistent asthma, uncomplicated (principal); J82.83 Eosinophilic asthma; R41.3 Other amnesia; G47.33 Obstructive sleep apnea (adult) (pediatric); Z99.81 Dependence on supplemental oxygen | CPT/HCPCS: 96372; 99202; J0517 ==

== ENCOUNTER 2022-12-21 09:06 | Day surgery (SDC) | payer OTHER, SELFPAY ==
[2022-12-15 15:15] VITALS: BMI 41.7
[2022-12-21 09:38] VITALS: BMI 41.1
--- NOTE | 2022-12-21 09:54 | HO.ANESPROP2 ---
HPI - Anesthesia Eval Consult details Narrative: 62 yo female patient for EGD with dilatation. Seen last week for ?exacerbation of asthma/COPD. Cleared for procedure today by PCP. Breathing feels ok today. Sats 98% room air PMFSH Active Problems Active Problems: All Active Problems (Updated 12/15/22 @ 16:20 by Haley Beck MD) Hypersomnia (Acute) Snoring (Acute) Obstructive sleep apnea (Acute)- not using CPAP as needs machine to be set up Encounter for screening for malignant neoplasm of colon (Acute) Well woman exam (Acute) Physical exam (Acute) Morbid obesity (Acute) Lumbar pain (Acute) Urinary incontinence (Acute) Memory loss (Acute) ILD (interstitial lung disease) (Acute) ROB on CPAP (Acute) Coronary artery disease (Acute) Low blood pressure (Acute) Avascular necrosis (Acute) Allergic reaction (Acute) Cardiomyopathy (Acute)EF 45-50% UTI (urinary tract infection) (Acute) Trigger finger, left ring finger (Acute) Osteoarthritis of glenohumeral joints, bilateral (Acute) Osteoarthritis, hand (Acute) Multiple joint pain (Acute) Osteoarthritis of knees, bilateral (Acute) Palpitations (Acute) Gastroparesis (Acute) Low vitamin D level (Acute) Migraines (Acute) Epigastric abdominal pain (Acute) Slow transit constipation (Acute) Encephalopathy (Acute) GERD (gastroesophageal reflux disease) (Acute) Hypothyroid (Acute) Fibromyalgia (Acute) Bipolar 1 disorder (Acute) Morbid obesity with BMI of 40.0-44.9, adult (Acute) Moderate recurrent major depression (Acute) Polyarthralgia (Acute) Neck mass (Acute) Severe asthma (Acute) Asthma-COPD overlap syndrome (Acute)- seen 12/21/22 for cough/?exacerbation of asthma.?had antibiotics per pcp note- patient denies. States still awaiting prescription.? bronchitis. Started on course of steroids. Recurrent UTI (Acute) Lumbar degenerative disc disease (Acute) GERD (gastroesophageal reflux disease) (Acute) Hemangioma (Acute) Hypovitaminosis D (Acute) Oxygen dependent (Acute) - just stopped by Dr Faria at visit 12/21/22 Hypothyroidism (Acute) Past Medical History Medical History Acute and chronic respiratory failure with hypoxia Asthma-COPD overlap syndrome Bipolar 1 disorder COPD (chronic obstructive pulmonary disease) COVID-19 Depression with anxiety Eosinophilia GERD (gastroesophageal reflux disease) Hemangioma History of ESBL E. coli infection Hypersomnia Hypothyroidism Hypovitaminosis D ILD (interstitial lung disease) Insomnia Lumbar degenerative disc disease Lupus (systemic lupus erythematosus) Moderate recurrent major depression Morbid obesity with BMI of 40.0-44.9, adult Neck mass Obesity Obstructive sleep apnea ROB on CPAP Oxygen dependent Polyarthralgia Recurrent UTI Severe asthma Snoring Tachycardia Trigger finger of right hand Urinary retention Family History Family History Father No problems noted. Mother No problems noted. Sister Nasopharyngeal cancer Family history of problems with anesthesia: No Surgical History Surgical History History of carpal tunnel release History of section History of colonoscopy History of cystocele History of hysterectomy History of shoulder surgery History of tonsillectomy History of Problems with Anesthesia: No (but gets 'itchy sometimes' Took benadryl 50 mg before coming in today) Social History Social History Household Members: None Household Members Other:: 1 Housing: Apartment Do you presently have visiting nurse or other home services: Yes (Has DIPLOMATIC INTERPRETER/TRANSLATOR) Alcohol intake: never Patient Tobacco Use Status: Former Tobacco user Tobacco use type: Cigarette Cigarettes Per Day: 5 Years Smoked: 14 e-Cigarette/Vaping Use: Never Used Second Hand Smoke Exposure: No Use of substances other than those prescribed or required for medical reasons: No Are you DNR?: No Advance Directives: Yes Advance Directives on File: Yes Advance Directives Date on File: 01/08/21 service: No Current occupational status: disabled Current occupation: right and left handed--- HAS DIPLOMATIC INTERPRETER/TRANSLATOR SERVICES Cognitive needs: Yes Hearing needs: No Vision needs: Yes Meds Allergies Allergy/AdvReac Type Severity Reaction Status Date / Time No Known Allergies Allergy Verified 12/21/22 08:35 Home Medications Medication Instructions Recorded Confirmed Last Taken Type oxygen-air delivery systems ##1 08/24/20 12/13/22 Unknown History topiramate 100 mg tablet 100 mg PO BID 07/13/22 12/15/22 Unknown History benralizumab 30 mg/mL subcutaneous 30 mg subcut QWEEK 12/21/22 Unknown History syringe (Fasenra) Exam Exam Date and Time: December 21, 2022 0954 Height,Weight and Vital Signs: Height 5 ft 1 in Weight 98.883 kg Vital Signs Temp Pulse Resp BP Pulse Ox O2 Del Method 12/21/22 11:04 97.6 F 93 16 128/78 98 Room Air Airway Mallampati Class: II TM Dist: >3cm Neck ROM: Full Denture: Upper Partial: Lower Loose/Missing/Broken Teeth: No (Denies broken or loose teeth) Heart: RRR. Distant Lungs: CTAB. No wheeze. Diminished Assessment and Plan Assessment Anesthesia Assessment: Anesthesia Plan Discussed and Chart Reviewed Final Anesthetic Review Family History of Problems with Anesthesia: No History of Problems with Anesthesia: No (but gets 'itchy sometimes' Took benadryl 50 mg before coming in today) NPO: Yes ASA Class: IV Final Preanesthetic Review: No Changes in Pt Med Stat, Meds/Allgs Chart Reviewed, Consent Obtained/Reviewed and Anes Risks/Benef Reviewed Patient Risk: Intermediate Procedure Risk: Low Assessment/Block/Sedation in SS: Assess/Block/Sedation-SS Anesthetic Plan Anesthetic Plan: MAC: Disposition: Standard PACU
--- NOTE | 2022-12-21 10:32 | P.HPSUR_ITS ---
Pre-Procedural Eval Section A Date of Service: 12/21/22 Section B Chief Complaint: Nausea, Aphagia Relevant Family History (Specify if Yes): No Relevant Social History: None Present Medications: see Short Stay Collaborative assessment Medical History: Significant History (Acute and chronic respiratory failure with hypoxia Asthma-COPD overlap syndrome Bipolar 1 disorder COPD (chronic obstructive pulmonary disease) COVID-19 Depression with anxiety Eosinophilia GERD (gastroesophageal reflux disease) Hemangioma History of ESBL E. coli infection Hypothyroidism Hypovitamin) History of Previous Operations: Relevant previous surgery/procedure and date(s) (History of carpal tunnel release History of section History of colonoscopy History of cystocele History of hysterectomy History of shoulder surgery History of tonsillectomy) Allergies: Allergies Allergy/AdvReac Type Severity Reaction Status Date / Time No Known Allergies Allergy Verified 12/21/22 08:35 Review of Systems Sugical H&P ROS: Negative: Constitution, Cardiovascular, Respiratory, Ne urological, Psychiatric, Hem-Onc, Allergic/Immunologic, Gastrointestinal, Genitourinary, Musculoskeletal, Integumentary, Endocrine and Eyes/Ears/Nose/Throat Exam Surgical H&P Exam: Normal: HEENT, Normal: Heart, Normal: Lungs, Normal: Extremities, Normal: Abdomen, Normal: Skin and Normal: Neurological Plan Diagnosis/Plan: Unchanged I have reviewed the history and physical and performed a pertinent physical examination on my patient. No changes have occurred unless specified. Time Spent With Patient Time: Total time managing care of this patient today ____ minutes.
--- NOTE | 2022-12-21 10:34 | W.PM.OPN ---
Operative Note Operative Note Date of Service: 12/21/22 Narrative: Procedure Description: EGD Indication: nausea, dysphagia Anesthesia: MAC FLEXIBLE TRANSORAL UPPER GASTROINTESTINAL ENDOSCOPY UPPER ENDOSCOPY Consent: Indications for the procedure and potential complications of bleeding, perforation, reaction to medications and missed diagnosis were discussed with the patient and informed consent was obtained. Instrument: Olympus GIF H 190 J mid size upper endoscope Monitoring: Vital signs and clinical assessment, continuous EKG monitoring, Pulse oximetry, Carbon Dioxide monitoring and blood pressure monitoring were done throughout the procedure. Procedure: The patient was placed in the left lateral decubitis position and pre-procedure medications were administered and a bite block was placed. The endoscope was inserted into the mouth and advanced under direct vision to the third part of duodenum. A careful inspection was made as the upper endoscope was withdrawn including a retroflexed examination of the proximal stomach; Findings and interventions are described below. Findings: Larynx:normal Esophagus: GE junction at 38 cm, diaphragm hiatus at 38 cm, mild esophagitis with irregular Z line, bx taken. Adherent thick white patches noted giovanni in proximal esophagus consistent with candidiasis. balloon dialtion done at UES to 19 mm, no tear seen and LES to 20 mm with no tear seen Stomach: Patchy gastric erythema. Biopsies were obtained. Grade 2 flap valve on retroflexed examination of the cardia. The pylorus was tight and was stretched with 19 mm balloon with some heme noted around the edges. Duodenum: Normal bulb and descending duodenum, Intervention: Biopsies as noted above, ballon dilation Impression/Findings: esophageal candidiasis esophagitis gastritis pyloric outlet obstruction s/p dilation PLAN: cont with PO diet as tolerated 3 weeks of fluconazole 200 mg day#1 then 100 mg daily thereafter gargle after using her steroid inhaler
[2022-12-21 11:04] VITALS: BP 128/78; PULSE 93; RESP 16; TEMP 36.4; O2SAT 98
[2022-12-21 11:19] VITALS: BP 130/77; PULSE 95; RESP 14; TEMP 37.1; O2SAT 95
[2022-12-21 11:34] VITALS: BP 114/79; PULSE 92; RESP 18; TEMP 37.1; O2SAT 98
[2022-12-21 11:49] VITALS: BP 135/80; PULSE 88; RESP 18; TEMP 36.1; O2SAT 99
== END 2022-12-21 13:03 ==
LOC: HO.SSS 09:07
PROVIDERS: PCP Internal Medicine; Visit Provider Internal Medicine Gastroenterology
PROC: (CPT 43249; principal; 2022-12-21 10:10)
DX: R13.10 Dysphagia, unspecified (principal); B37.81 Candidal esophagitis; K31.1 Adult hypertrophic pyloric stenosis; K22.4 Dyskinesia of esophagus; K29.50 Unspecified chronic gastritis without bleeding; K44.9 Diaphragmatic hernia without obstruction or gangrene; J44.9 Chronic obstructive pulmonary disease, unspecified; G47.33 Obstructive sleep apnea (adult) (pediatric); Z99.81 Dependence on supplemental oxygen; F32.A Depression, unspecified; E66.01 Morbid (severe) obesity due to excess calories; Z68.41 Body mass index [BMI] 40.0-44.9, adult; Z87.891 Personal history of nicotine dependence; Z86.16 Personal history of COVID-19; Z79.899 Other long term (current) drug therapy
CPT/HCPCS: 43249; 43245; 43239; 88305; 88312; 88342; 94618; 99212; C1726

== ENCOUNTER 2023-01-09 09:52 | Outpatient (REF) | payer OTHER, SELFPAY ==
--- NOTE | 2023-01-09 11:00 | PFT_ITS ---
FLOWS: 1. FEV1 89% of predicted at 1.91 L. 2. FVC 81% of predicted at 2.24L. 3. FEV1 to FVC ration of 0.85. 4. No bronchodilator response. LUNG VOLUMES: 1. Total lung capacity 82% of predicted at 3.78 L. 2. Residual volume 69% of predicted at 1.36 L. 3. Slow vital capacity 90% of predicted at 2.42 L. 4. Expiratory reserve volume 25% of predicted at 0.17 L. 5. Diffusion capacity is mildly decreased, diffusion capacity corrects to normal after adjustment for alveolar ventilation. IMPRESSION: No obstructive or restrictive ventilatory defect. No bronchodilator response. Decreased expiratory residual volume suggests extrathoracic restriction, likely secondary to abdominal obesity. Jose Urbina MD AP/MODL / [id number]
== END 2023-01-09 09:53 | disposition home or self-care (01) ==
LOC: HO.RESP 09:52
PROVIDERS: PCP Internal Medicine; Visit Provider Hospitalist
DX: J45.50 Severe persistent asthma, uncomplicated (principal)
CPT/HCPCS: 94060; 94727; 94729

== ENCOUNTER → 2023-01-18 13:31 | Outpatient (BNVA) | payer OTHER, SELFPAY | PROVIDERS: PCP Internal Medicine; Referring Provider Internal Medicine; Visit Provider Internal Medicine Cardiovascular Disease | DX: I25.10 Atherosclerotic heart disease of native coronary artery without angina pectoris (principal); R00.2 Palpitations; J06.9 Acute upper respiratory infection, unspecified | CPT/HCPCS: 93005; 99212 ==

== ENCOUNTER 2023-01-18 14:40 | Outpatient (REF) | payer OTHER, SELFPAY ==
[2023-01-18 15:39] LABS: Influenza A PCR NEGATIVE (Negative); Influenza B PCR NEGATIVE (Negative); Resp Syncy Virus RNA Qual PCR NEGATIVE (Negative); SARS COV2 PCR INHOUSE POSITIVE (Negative)
== END 2023-01-18 14:41 | disposition home or self-care (01) ==
LOC: HO.LAB 14:40
PROVIDERS: Visit Provider Internal Medicine Cardiovascular Disease
DX: Z20.822 Contact with and (suspected) exposure to COVID-19 (principal); J06.9 Acute upper respiratory infection, unspecified; I25.10 Atherosclerotic heart disease of native coronary artery without angina pectoris; R00.2 Palpitations
CPT/HCPCS: 0241U

== ENCOUNTER 2023-02-03 12:28 | Outpatient (REF) | payer OTHER, SELFPAY ==
--- NOTE | ~2023-02-03 | MM_ITS ---
EXAMINATION: MM SCREENING DIGITAL BREAST TOMOSYNTHESIS, BILATERAL CLINICAL INFORMATION: Screening. Asymptomatic. The lifetime risk of breast cancer based on the Tyrer-Cuzick Model is 5%. COMPARISON: Mammography: 11/17/2020, 11/12/2019 (new baseline) TECHNIQUE: Digital breast tomosynthesis is performed in both the craniocaudal and mediolateral oblique views along with computer-aided detection (CAD). Synthesized 2D images are generated from the tomosynthesis. FINDINGS: The breasts are almost entirely fatty (ACR BI-RADS breast composition Category a). There are no significant masses, abnormal calcifications, or other abnormalities. Background stromal markings are stable. No developing density or architectural abnormality. The axilla are unremarkable. MM/MM tomosynthesis screening BI IMPRESSION: No mammographic evidence of malignancy. ASSESSMENT: BI-RADS 1: Negative RECOMMENDATION: Routine annual mammography screening. This patient's information was entered into a reminder system with a target due date for their next mammogram.
== END 2023-02-03 12:29 | disposition home or self-care (01) ==
LOC: HO.MAMMO 12:28
PROVIDERS: PCP Internal Medicine; Visit Provider Obstetrics & Gynecology
DX: Z12.31 Encounter for screening mammogram for malignant neoplasm of breast (principal)
CPT/HCPCS: 77063; 77067

== ENCOUNTER 2023-02-09 12:42 | Outpatient (REF) | payer OTHER, SELFPAY | END 2023-02-09 12:43 | disposition home or self-care (01) | LOC: HO.MDS 12:42 | PROVIDERS: Visit Provider Hospitalist | DX: J45.50 Severe persistent asthma, uncomplicated (principal); J82.83 Eosinophilic asthma | CPT/HCPCS: 96372 ==

== ENCOUNTER 2023-03-24 16:12 | Emergency (ER) | payer OTHER, SELFPAY ==
[2023-03-24] VITALS (9 sets, daily range): BP systolic 93–125; BP diastolic 59–79; PULSE 82–96; RESP 16–20; TEMP 35.6–36.7; O2SAT 95–100; BMI 41.6
--- NOTE | 2023-03-24 16:41 | ED_ITS ---
HPI - General Adult General Chief complaint: General Medical Stated complaint: HYPOTENSION, DIZZINESS Time Seen by Provider: 03/24/23 18:42 Source: patient Mode of arrival: ambulatory Limitations: no limitations History of Present Illness HPI narrative: Patient' with hx of sleep apnea not using CPAP machine , obese comes here as she is feeling weak and sleepy so the check blood pressure was 53/43 on arrival to the ER blood pressure is 111/69 no nausea no vomiting no chest pain or palpitation melena no vomiting no diarrhea patient feels sleepy and tired no urinary symptoms patient does have ESBL UTI in 08/19 Related Data Home Medications Medication Instructions Recorded Confirmed oxygen-air delivery systems ##1 08/24/20 01/18/23 topiramate 100 mg tablet 100 mg PO BID 07/13/22 01/18/23 benralizumab 30 mg/mL subcutaneous 30 mg subcut QWEEK 12/21/22 01/18/23 syringe (Fasenra) Previous Rx's Medication Instructions Recorded shower seat #1 ea 11/23/20 miscellaneous medical supply #1 ea 12/22/20 bupropion HCl 300 mg 24 hr tablet, 300 mg PO DAILY 90 days #90 tabs 03/02/22 extended release cromolyn 4 % eye drops 1 drp ophthalmic (eye) QID PRN 03/02/22 itching #10 mL pantoprazole 40 mg tablet,delayed 40 mg PO BID 90 days #180 tabs 03/18/22 release (Protonix) amitriptyline 100 mg tablet 100 mg PO BEDTIME 90 days #90 tabs 04/12/22 pipqnlgwvn-iqrwjxfzvbnvz-atpctzkg 1 cap PO Q8H PRN pain #24 caps 04/13/22 50 mg-300 mg-40 mg capsule (Fioricet) electric wheelchair #1 ea 04/30/22 trazodone 100 mg tablet 100 mg PO BEDTIME PRN sleep 90 06/11/22 days #90 tabs lidocaine 5 % topical patch 1 patch topical DAILY PRN pain #15 07/09/22 ea lubiprostone 24 mcg capsule 24 mcg PO BID #60 caps 08/02/22 diphenhydramine HCl 25 mg capsule 25 mg PO BEDTIME PRN sleep 30 days 08/16/22 (Banophen) #30 caps clonazepam 1 mg tablet 1 mg PO DAILY PRN Anxiety 30 days 08/26/22 #30 tabs blood pressure kit-extra large #1 ea 08/29/22 carboxymethylcellulose sodium 0.5 1 drp ophthalmic (eye) BID PRN dry 09/06/22 % eye drops in a dropperette eye(s) 30 days #30 ea loratadine 10 mg tablet 10 mg PO DAILY 30 days #30 tabs 09/26/22 zolpidem 10 mg tablet 10 mg PO BEDTIME PRN Insomnia 30 10/24/22 days #30 tabs albuterol sulfate 90 mcg/actuation 2 puff inhalation Q4H PRN Wheezing 10/25/22 aerosol inhaler #8.5 grams rosuvastatin 10 mg tablet (Crestor) 10 mg PO .q 48 #30 tabs 12/05/22 wheeled table with drawers #1 ea 12/05/22 prednisone 20 mg tablet See Rx Instructions PO DAILY 10 12/15/22 days #15 tabs Magic Mouthwash 10 ml PO QID #240 mL 12/21/22 Diphen/Lido/Antacid 1:1:1 240 mL suspension albuterol sulfate 2.5 mg/3 mL 2.5 mg (3 mL) inhalation Q6H PRN 12/23/22 (0.083 %) solution for nebulization shortness of breath or wheezing 30 days #180 mL gabapentin 300 mg capsule 300 mg PO BID 90 days #180 caps 12/25/22 levothyroxine 50 mcg tablet 50 mcg PO DAILY@0630 #90 tabs 12/25/22 fluticasone fur. 200 mcg-umeclid 1 inh inhalation DAILY 30 days #60 12/26/22 62.5 mcg-vilant 25 mcg ea inhalat.powder (Trelegy Ellipta) simethicone 125 mg chewable tablet 125 mg PO QID PRN abdominal 12/28/22 distention #60 tabs nirmatrelvir 300 mg (150 mg 3 ea PO PER PKG DIR 5 days #30 ea 01/23/23 x2)-ritonavir 100 mg tablet,dose pack(EUA) (Paxlovid) adult diapers pull-ups #240 ea 02/13/23 disposable gloves (Biobrane Gloves #200 ea 02/13/23 Large) flushable wipes #240 ea 02/13/23 underpads (Bed Underpads) #100 ea 02/13/23 lactulose 10 gram/15 mL oral 10 g (15 mL) PO BID #946 mL 03/02/23 solution cholecalciferol (vitamin D3) 25 25 mcg PO DAILY #30 caps 03/24/23 mcg (1,000 unit) capsule (Vitamin D3) Allergies Allergy/AdvReac Type Severity Reaction Status Date / Time No Known Allergies Allergy Verified 01/18/23 14:07 Review of Systems Review of Systems: Yes all other systems are reviewed and are negative [facility] Past Medical History Medical History Acute and chronic respiratory failure with hypoxia Asthma-COPD overlap syndrome Bipolar 1 disorder COPD (chronic obstructive pulmonary disease) COVID-19 Depression with anxiety Eosinophilia GERD (gastroesophageal reflux disease) Hemangioma History of ESBL E. coli infection Hypersomnia Hypothyroidism Hypovitaminosis D ILD (interstitial lung disease) Insomnia Lumbar degenerative disc disease Lupus (systemic lupus erythematosus) Moderate recurrent major depression Morbid obesity with BMI of 40.0-44.9, adult Neck mass Obesity Obstructive sleep apnea ROB on CPAP Oxygen dependent Polyarthralgia Recurrent UTI Severe asthma Snoring Tachycardia Trigger finger of right hand Urinary retention Surgical History History of carpal tunnel release History of section History of colonoscopy History of cystocele History of hysterectomy History of shoulder surgery History of tonsillectomy Family History Family History Father No problems noted. Mother No problems noted. Sister Nasopharyngeal cancer Social History Social History Household Members: None Household Members Other:: 1 Housing: Apartment Do you presently have visiting nurse or other home services: Yes (Has [employer]) Alcohol intake: never Patient Tobacco Use Status: Former Tobacco user Tobacco use type: Cigarette Cigarettes Per Day: 5 Years Smoked: 14 Smoked in Last 30 Days: No e-Cigarette/Vaping Use: Never Used Second Hand Smoke Exposure: No Use of substances other than those prescribed or required for medical reasons: No Advance Directives: Yes Advance Directives on File: Yes Advance Directives Date on File: 01/08/21 service: No Current occupational status: disabled Current occupation: right and left handed--- HAS [employer] Cognitive needs: Yes Hearing needs: No Vision needs: Yes Physical Exam ED Vital Signs: Vital Signs - 24 hr 03/24/23 16:40 03/24/23 18:52 03/24/23 19:16 Temperature 96.0 F L 98.0 F Pulse Rate 82 88 84 Respiratory Rate 20 16 18 Blood Pressure 111/69 125/75 119/66 Pulse Oximetry 99 98 100 Oxygen Delivery Method Room Air Room Air Room Air 03/24/23 19:24 03/24/23 19:26 03/24/23 19:28 Temperature Pulse Rate 92 94 93 Respiratory Rate Blood Pressure 107/65 122/59 L 93/59 L Pulse Oximetry Oxygen Delivery Method 03/24/23 23:33 03/24/23 23:35 03/24/23 23:38 Temperature Pulse Rate 85 90 88 Respiratory Rate 20 20 Blood Pressure 116/76 116/79 110/78 Pulse Oximetry 100 Oxygen Delivery Method Room Air Room Air Room Air BMI result Body Mass Index 41.6 Appearance: Alert. Oriented X3. No acute distress. Eyes: PERRLA, No Nystagmus ENT: Pharynx normal. Oral Mucosa moist Neck: Normal inspection. Neck supple. CVS: Normal heart rate and rhythm. Pulses normal. Respiratory: No respiratory distress. Equal air entry bilateral, no wheezing/rales/rhonchi Abdomen: Soft and nontender. Bowel sounds are present, no mass palpable, no CVA tenderness Skin: Skin warm and dry. Normal skin color. Normal skin turgor. Extremities: No lower extremity edema. No calf tenderness Neuro: Oriented X 3. No motor deficit. No sensory deficit.No cerebellar signs , cranial nerves II-XII intact Course Course Course Narrative: RME performed by Radha Corcoran PA-C. Patient is a 63 year old assigned female at presenting to the emergency department with low blood pressure. Labs ordered. Patient placed back in the waiting room pending room availability and results. Medications Administered Discontinued Medications Generic Name Dose Route Start Last Admin Trade Name Freq PRN Reason Stop Dose Admin Sodium Chloride 1,000 mls @ 999 mls/hr 03/24/23 20:33 03/24/23 23:32 Ns IV 03/24/23 21:33 Infused .Q1H1M ONE Infusion Medical Decision Making Medical Decision Making [facility] Narrative: Patient is stable labs no signs of infection on normal orthostatics had a transient hypertension episode at home for not feeling good at this time patient received 1 L of IV fluid and had p.o. fluids in the ER feeling much better discharge patient home.. Patient advised to follow-up as OP patient ambulated in the ER Lab Data MDM Lab Attestation statement: I reviewed the patient's lab results. 03/24/23 17:10 03/24/23 17:10 Labs: Lab Results 03/24/23 03/24/23 03/24/23 Range/Units 17:10 17:10 17:10 WBC 6.3 (4.8-10.8) X10*3/uL RBC 4.17 L (4.20-5.50) X10*6/uL Hgb 12.3 (12.0-16.0) g/dl Hct 39.4 (37.0-47.0) % MCV 94.5 (80.0-98.0) fL MCH 29.5 (27.0-33.0) pg MCHC 31.2 (31.0-35.0) g/dl RDW 14.2 (11.0-16.0) % Plt Count 319 (160-400) X10*3/uL MPV 8.9 L (9.4-12.3) fL Immature Gran % (Auto) 0.8 H (0.0-0.4) % Neut % (Auto) 68.0 (45-73) % Lymph % (Auto) 23.9 (20-40) % [place] % (Auto) 7.1 (2-11) % Eos % (Auto) 0.0 (0-4) % Baso % (Auto) 0.2 (0-2) % Lymph # (Auto) 1.5 (1.2-4.9) X10*3/uL [place] # (Auto) 0.5 (0.1-1.2) X10*3/uL Eos # (Auto) 0.0 (0.0-0.4) X10*3/uL Baso # (Auto) 0.0 (0.0-0.2) X10*3/uL Abs Immat Gran (auto) 0.05 H (0.00-0.03) X10*3/uL Absolute Neuts (auto) 4.3 (2.0-8.3) x10*3/uL Absolute Nucleated RBC 0.000 (0.0-0.012) X10*3/uL Nucleated RBC % (auto) 0.0 (0.0-0.2) /100WBC Sodium 142 (135-145) mmol/L Potassium 4.1 (3.3-5.1) mmol/L Chloride 108 (96-108) mmol/L Carbon Dioxide 28 (22-29) mmol/L Anion Gap 10 L (12-20) BUN 9 (9-16) mg/dL Creatinine 0.87 (0.5-1.4) mg/dL Estim Creat Clear Calc 69.8 Estimated GFR > 60 Random Glucose 95 (60-115) mg/dL Calcium 9.4 (8.4-10.2) mg/dL Magnesium 2.1 (1.6-2.6) mg/dL Total Bilirubin 0.2 (0.0-1.0) mg/dL AST 15 (5-31) U/L ALT 13 (0-31) U/L Alkaline Phosphatase 83 (39-117) U/L Troponin I High Sens < 2.7 (<3.5-17.0) ng/L Total Protein 6.3 L (6.5-8.0) g/dL Albumin 3.7 (3.5-5.0) g/dL Urine Color Urine Appearance Urine pH (5.0-9.0) Ur Specific [place] (1.005-1.025) Urine Protein (Neg-Trace) mg/dL Urine Glucose (UA) (Negative) mg/dL Urine Ketones (Negative) mg/dL Urine Blood (Negative) Urine Nitrite (Negative) Ur Leukocyte Esterase (Negative) COVID-19 (ABBIE) (Negative) COVID-19 Clin Com 03/24/23 03/24/23 Range/Units 17:10 18:55 WBC (4.8-10.8) X10*3/uL RBC (4.20-5.50) X10*6/uL Hgb (12.0-16.0) g/dl Hct (37.0-47.0) % MCV (80.0-98.0) fL MCH (27.0-33.0) pg MCHC (31.0-35.0) g/dl RDW (11.0-16.0) % Plt Count (160-400) X10*3/uL MPV (9.4-12.3) fL Immature Gran % (Auto) (0.0-0.4) % Neut % (Auto) (45-73) % Lymph % (Auto) (20-40) % [place] % (Auto) (2-11) % Eos % (Auto) (0-4) % Baso % (Auto) (0-2) % Lymph # (Auto) (1.2-4.9) X10*3/uL [place] # (Auto) (0.1-1.2) X10*3/uL Eos # (Auto) (0.0-0.4) X10*3/uL Baso # (Auto) (0.0-0.2) X10*3/uL Abs Immat Gran (auto) (0.00-0.03) X10*3/uL Absolute Neuts (auto) (2.0-8.3) x10*3/uL Absolute Nucleated RBC (0.0-0.012) X10*3/uL Nucleated RBC % (auto) (0.0-0.2) /100WBC Sodium (135-145) mmol/L Potassium (3.3-5.1) mmol/L Chloride (96-108) mmol/L Carbon Dioxide (22-29) mmol/L Anion Gap (12-20) BUN (9-16) mg/dL Creatinine (0.5-1.4) mg/dL Estim Creat Clear Calc Estimated GFR Random Glucose (60-115) mg/dL Calcium (8.4-10.2) mg/dL Magnesium (1.6-2.6) mg/dL Total Bilirubin (0.0-1.0) mg/dL AST (5-31) U/L ALT (0-31) U/L Alkaline Phosphatase (39-117) U/L Troponin I High Sens (<3.5-17.0) ng/L Total Protein (6.5-8.0) g/dL Albumin (3.5-5.0) g/dL Urine Color Yellow Urine Appearance Clear Urine pH 7.5 (5.0-9.0) Ur Specific [place] <= 1.005 (1.005-1.025) Urine Protein Negative (Neg-Trace) mg/dL Urine Glucose (UA) Negative (Negative) mg/dL Urine Ketones Negative (Negative) mg/dL Urine Blood Negative (Negative) Urine Nitrite Negative (Negative) Ur Leukocyte Esterase Negative (Negative) COVID-19 (ABBIE) Negative (Negative) COVID-19 Clin Com See Note Independent Interpretation I performed an independent interpretation of an: EKG Interpretation: Normal sinus rhythm heart rate 86 beats per minute normal interval normal axis no acute ST change no acute ischemic pressure normal EKG Discharge Plan Discharge Clinical Impression: Weakness Patient Disposition: Home, Self-Care Instructions: Weakness (ED) Additional Instructions: Drink plenty of fluids Continue medication and follow-up with PCP Report to ER if high fever/vomiting Prescriptions: No Action (DME) shower seat See Rx Instructions .Route .MEDSUPPLY Qty: 1 0RF Rx Instructions: As directed (DME) miscellaneous medical supply Misc See Rx Instructions .ROUTE .MEDSUPPLY Qty: 1 0RF Rx Instructions: OVERBED TABLE pantoprazole [Protonix] 40 mg tablet,delayed release (DR/EC) 40 mg PO BID 90 Days Qty: 180 3RF amitriptyline 100 mg tablet 100 mg PO BEDTIME 90 Days Qty: 90 1RF ekhfowrlvo-fuzwafnabgfvy-ggcb [Fioricet] 50-300-40 mg capsule 1 cap PO Q8H PRN (Reason: pain) Qty: 24 0RF (DME) electric wheelchair See Rx Instructions .Route .MEDSUPPLY Qty: 1 0RF Rx Instructions: As directed trazodone 100 mg tablet 100 mg PO BEDTIME PRN (Reason: sleep) 90 Days Qty: 90 0RF lubiprostone 24 mcg capsule 24 mcg PO BID Qty: 60 2RF diphenhydramine HCl [Banophen] 25 mg capsule 25 mg PO BEDTIME PRN (Reason: sleep) 30 Days Qty: 30 0RF clonazepam 1 mg tablet 1 mg PO DAILY PRN (Reason: Anxiety) 30 Days Qty: 30 0RF carboxymethylcellulose sodium 0.5 % dropperette 1 drp ophthalmic (eye) BID PRN (Reason: dry eye(s)) 30 Days Qty: 30 2RF loratadine 10 mg tablet 10 mg PO DAILY 30 Days Qty: 30 11RF zolpidem 10 mg tablet 10 mg PO BEDTIME PRN (Reason: Insomnia) 30 Days Qty: 30 0RF albuterol sulfate 90 mcg/actuation HFA aerosol inhaler 2 puff inhalation Q4H PRN (Reason: Wheezing) Qty: 8.5 11RF rosuvastatin [Crestor] 10 mg tablet 10 mg PO .q 48 Qty: 30 3RF (DME) wheeled table with drawers See Rx Instructions .Route .MEDSUPPLY Qty: 1 0RF Rx Instructions: As directed prednisone 20 mg tablet See Rx Instructions PO DAILY 10 Days Qty: 15 0RF Rx Instructions: PO daily; Take 2 tabs daily x 5 days, then 1 tablet daily x 5 days albuterol sulfate 2.5 mg /3 mL (0.083 %) solution for nebulization 2.5 mg inhalation Q6H PRN (Reason: shortness of breath or wheezing) 30 Days Qty: 180 11RF levothyroxine 50 mcg tablet 50 mcg PO DAILY@0630 Qty: 90 0RF gabapentin 300 mg capsule 300 mg PO BID 90 Days Qty: 180 0RF Trelegy Ellipta 200-62.5-25 mcg blister with device 1 inh inhalation DAILY 30 Days Qty: 60 12RF simethicone 125 mg tablet,chewable 125 mg PO QID PRN (Reason: abdominal distention) Qty: 60 0RF Paxlovid (EUA) 300 mg (150 mg x 2)-100 mg tablets,dose pack 3 ea PO PER PKG DIR 5 Days Qty: 30 0RF (DME) flushable wipes See Rx Instructions .Route .MEDSUPPLY Qty: 240 6RF Rx Instructions: As directed (DME) disposable gloves [Biobrane Gloves Large] Misc See Rx Instructions .Route Qty: 200 6RF Rx Instructions: As directed (DME) underpads [Bed Underpads] Pad See Rx Instructions .Route Qty: 100 6RF Rx Instructions: As directed (DME) adult diapers pull-ups 2Xlarge See Rx Instructions .Route .MEDSUPPLY Qty: 240 6RF Rx Instructions: As directed lactulose 10 gram/15 mL solution 10 g PO BID Qty: 946 3RF Rx Instructions: can take twice a day as needed cholecalciferol (vitamin D3) [Vitamin D3] 25 mcg (1,000 unit) capsule 25 mcg PO DAILY Qty: 30 1RF Magic Mouthwash Diphen/Lido/Antacid 1:1:1 240 mL suspension 10 ml PO QID Qty: 240 0RF Rx Instructions: Lidocaine Viscous 2 % 80mL; diphenhydramine 12.5 mg/5 mL 80mL; aluminum-mag hydrox-simeth [id number]/5mL 80mL lidocaine 5 % adhesive patch,medicated 1 patch topical DAILY PRN (Reason: pain) Qty: 15 0RF Rx Instructions: leave on most painful area for up to 12 hrs (DME) oxygen-air delivery systems Device See Rx Instructions .ROUTE .MEDSUPPLY Qty: 1 Rx Instructions: As directed bupropion HCl 300 mg tablet extended release 24 hr 300 mg PO DAILY 90 Days Qty: 90 1RF cromolyn 4 % drops 1 drp ophthalmic (eye) QID PRN (Reason: itching) Qty: 10 0RF topiramate 100 mg tablet 100 mg PO BID (DME) blood pressure kit-extra large Kit See Rx Instructions .Route Qty: 1 0RF Rx Instructions: As directed Fasenra 30 mg/mL syringe 30 mg subcut QWEEK Interventions: ED Discharge Assessment Last Done: 03/24/23 23:49
--- NOTE | 2023-03-24 16:43 | ECG_ITS ---
Test Reason : hypotension Blood Pressure : / mmHG Vent. Rate : 086 BPM Atrial Rate : 086 BPM P-R Int : 156 ms QRS Dur : 092 ms QT Int : 362 ms P-R-T Axes : 015 002 012 degrees QTc Int : 433 ms Normal sinus rhythm Normal ECG When compared with ECG of 09-JUL-2022 16:37, No significant change was found Referred By: Radha Corcoran Electronically Signed By:MONIK JUAREZ
[2023-03-24 17:14] LABS: MANUAL DIFF FLAG NO
[2023-03-24 17:17] LABS: Basophils Percent Auto 0.2 % (0-2); Hematocrit 39.4 % (37.0-47.0); Hemoglobin 12.3 g/dl (12.0-16.0); Imm Gran Abs Auto 0.05 X10*3/uL (0.00-0.03); Imm Gran Pct Auto 0.8 % (0.0-0.4); Lymphocytes Absolute Auto 1.5 X10*3/uL (1.2-4.9); Lymphocytes Percent Auto 23.9 % (20-40); Mean Corpuscular HGB Conc 31.2 g/dl (31.0-35.0); Mean Corpuscular Hemoglobin 29.5 pg (27.0-33.0); Mean Corpuscular Volume 94.5 fL (80.0-98.0); Mean Platelet Volume 8.9 fL (9.4-12.3); Monocytes Absolute Auto 0.5 X10*3/uL (0.1-1.2); Monocytes Percent Auto 7.1 % (2-11); Neutrophils Absolute Auto 4.3 x10*3/uL (2.0-8.3); Platelet Count 319 X10*3/uL (160-400); Red Blood Count 4.17 X10*6/uL (4.20-5.50); Red Cell Distribution Width 14.2 % (11.0-16.0); White Blood Count 6.3 X10*3/uL (4.8-10.8)
[2023-03-24 17:31] LABS: COVID-19 Test Negative (Negative); IDNOW Serial# 08D9AD1C
[2023-03-24 17:32] LABS: Alanine Aminotransferase 13 U/L (0-31); Albumin Level 3.7 g/dL (3.5-5.0); Alkaline Phosphatase 83 U/L (39-117); Anion Gap 10 (12-20); Aspartate Amino Transferase 15 U/L (5-31); Bilirubin Total 0.2 mg/dL (0.0-1.0); Blood Urea Nitrogen 9 mg/dL (9-16); Calcium 9.4 mg/dL (8.4-10.2); Carbon Dioxide 28 mmol/L (22-29); Chloride 108 mmol/L (96-108); Creatinine Clr Calc Pharmacy 69.8; Estimated Glomerular Filt Rate > 60; Glucose Random 95 mg/dL (60-115); Magnesium 2.1 mg/dL (1.6-2.6); Potassium 4.1 mmol/L (3.3-5.1); Sodium 142 mmol/L (135-145); Total Protein 6.3 g/dL (6.5-8.0)
[2023-03-24 17:43] LABS: Troponin-I High Sensitivity < 2.7 ng/L (<3.5-17.0)
[2023-03-24 19:24] LABS: Appearance Urine Clear; Color Urine Yellow; Glucose Urine UA Negative (Negative); Leukocyte Esterase Urine Negative (Negative); Nitrite Urine Negative (Negative); PH 7.5 (5.0-9.0); Specific Gravity - Urine <= 1.005 (1.005-1.025); Urine Blood Negative (Negative); Urine Ketones Negative (Negative); Urine Protein Negative (Neg-Trace)
[2023-03-24] MEDS: 0.9 % Sodium Chloride 1,000 ML 999 ML IV (20:35)
== END 2023-03-25 00:28 | disposition home or self-care (01) ==
PROVIDERS: Physician Assistant Medical; Emergency Provider Internal Medicine
DX: R53.1 Weakness (principal); Z20.822 Contact with and (suspected) exposure to COVID-19; E66.9 Obesity, unspecified; Z68.41 Body mass index [BMI] 40.0-44.9, adult; Z87.891 Personal history of nicotine dependence; Z87.440 Personal history of urinary (tract) infections; Z79.899 Other long term (current) drug therapy; Z99.81 Dependence on supplemental oxygen
CPT/HCPCS: 36415; 80053; 81003; 83735; 84484; 85025; 87635; 93005; 96360; 96361; 99285

== ENCOUNTER → 2023-03-29 10:49 | Outpatient (REF) | payer OTHER, SELFPAY | LOC: HO.SL 10:49 | PROVIDERS: PCP Internal Medicine; Visit Provider Psychiatry & Neurology Neurology | DX: G47.33 Obstructive sleep apnea (adult) (pediatric) (principal); G47.10 Hypersomnia, unspecified; R06.83 Snoring | CPT/HCPCS: 95806 ==

== ENCOUNTER → 2023-04-03 13:54 | Outpatient (BNVA) | payer OTHER, SELFPAY | PROVIDERS: Visit Provider Internal Medicine Gastroenterology | DX: K31.84 Gastroparesis (principal); K59.01 Slow transit constipation; R10.13 Epigastric pain | CPT/HCPCS: 99212 ==

== ENCOUNTER 2023-04-06 12:26 | Outpatient (REF) | payer OTHER, SELFPAY | END 2023-04-06 12:27 | disposition home or self-care (01) | LOC: HO.MDS 12:26 | PROVIDERS: Visit Provider Hospitalist | DX: J45.50 Severe persistent asthma, uncomplicated (principal); J82.83 Eosinophilic asthma | CPT/HCPCS: 96372 ==

== ENCOUNTER 2023-04-19 13:22 | Day surgery (SDC) | payer OTHER, SELFPAY ==
[2023-04-14 14:42] VITALS: BMI 41.8
--- NOTE | 2023-04-18 11:53 | HO.ANESPROP2 ---
Documented by User: Neeru Bishop NP 04/18/23 11:59 HPI - Anesthesia Eval Consult details Narrative: 63yo F for Upper Endoscopy with Salvary Dilitation PCP eval 04/12/23 - no CP/SOB. Asthma-COPD stable PMFSH Active Problems Active Problems: All Active Problems (Updated 04/14/23 @ 14:44 by Geri Boyd RN) Epigastric abdominal pain (Acute) Slow transit constipation (Acute) Encephalopathy (Acute) GERD (gastroesophageal reflux disease) (Acute) Hypothyroid (Acute) Fibromyalgia (Acute) Migraines (Acute) Low vitamin D level (Acute) Gastroparesis (Acute) Palpitations (Acute) Osteoarthritis of knees, bilateral (Acute) Multiple joint pain (Acute) Osteoarthritis, hand (Acute) Osteoarthritis of glenohumeral joints, bilateral (Acute) Trigger finger, left ring finger (Acute) UTI (urinary tract infection) (Acute) Cardiomyopathy (Acute) Allergic reaction (Acute) Avascular necrosis (Acute) Low blood pressure (Acute) Coronary artery disease (Acute) Memory loss (Acute) Urinary incontinence (Acute) Lumbar pain (Acute) Morbid obesity (Acute) Physical exam (Acute) Well woman exam (Acute) Encounter for screening for malignant neoplasm of colon (Acute) Obstructive sleep apnea (Acute) URI (upper respiratory infection) (Acute) Dyslipidemia (Acute) Hypersomnia (Acute) Snoring (Acute) ILD (interstitial lung disease) (Acute) ROB on CPAP (Acute) Bipolar 1 disorder (Acute) Morbid obesity with BMI of 40.0-44.9, adult (Acute) Moderate recurrent major depression (Acute) Polyarthralgia (Acute) Neck mass (Acute) Severe asthma (Acute) Asthma-COPD overlap syndrome (Acute) Recurrent UTI (Acute) Lumbar degenerative disc disease (Acute) GERD (gastroesophageal reflux disease) (Acute) Hemangioma (Acute) Hypovitaminosis D (Acute) Oxygen dependent (Acute) Hypothyroidism (Acute) Past Medical History Medical History Acute and chronic respiratory failure with hypoxia Asthma-COPD overlap syndrome Bipolar 1 disorder COPD (chronic obstructive pulmonary disease) COVID-19 Depression with anxiety Eosinophilia GERD (gastroesophageal reflux disease) Hemangioma History of ESBL E. coli infection Hypersomnia Hypothyroidism Hypovitaminosis D ILD (interstitial lung disease) Insomnia Lumbar degenerative disc disease Lupus (systemic lupus erythematosus) Moderate recurrent major depression Morbid obesity with BMI of 40.0-44.9, adult Neck mass Obesity Obstructive sleep apnea ROB on CPAP Oxygen dependent Polyarthralgia Recurrent UTI Severe asthma Snoring Tachycardia Trigger finger of right hand Urinary retention Family History Family History Father No problems noted. Mother No problems noted. Sister Nasopharyngeal cancer Family history of problems with anesthesia: No Surgical History Surgical History History of carpal tunnel release History of section History of colonoscopy History of cystocele History of esophagogastroduodenoscopy (EGD) History of hysterectomy History of shoulder surgery History of tonsillectomy Hx of cardiac catheterization Hx of hand surgery History of Problems with Anesthesia: No Social History Social History Household Members: None Household Members Other:: 1 Housing: Apartment Do you presently have visiting nurse or other home services: Yes (Has [employer]) Alcohol intake: never Patient Tobacco Use Status: Former Tobacco user Tobacco use type: Cigarette Cigarettes Per Day: 5 Years Smoked: 14 e-Cigarette/Vaping Use: Never Used Second Hand Smoke Exposure: No Advance Directives Date on File: 01/08/21 service: No Current occupational status: disabled Current occupation: right and left handed--- 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 [employer] Cognitive needs: Yes Hearing needs: No Vision needs: Yes Meds Allergies Allergy/AdvReac Type Severity Reaction Status Date / Time No Known Allergies Allergy Verified 04/12/23 16:01 Home Medications Medication Instructions Recorded Confirmed Last Taken Type oxygen-air delivery systems ##1 08/24/20 04/12/23 Unknown History topiramate 100 mg tablet 100 mg PO BID 07/13/22 04/14/23 Unknown History benralizumab 30 mg/mL subcutaneous 30 mg subcut QWEEK 12/21/22 04/14/23 Unknown History syringe (Fasenra) Exam Exam Date and Time: April 18, 2023 1153 Height,Weight and Vital Signs: Height 5 ft 1 in Weight 100.244 kg Pertinent Lab Results Pertinent Lab Results: Laboratory Tests 03/24/23 03/24/23 17:10 17:10 WBC 6.3 Hgb 12.3 Hct 39.4 Plt Count 319 Sodium 142 Potassium 4.1 Chloride 108 Carbon Dioxide 28 BUN 9 Creatinine 0.87 Narrative Narrative: EKG 02/2023 Vent. Rate : 086 BPM ? ? Atrial Rate : 086 BPM ?? P-R Int : 156 ms? QRS Dur : 092 ms ? ? QT Int : 362 ms ? ? ? P-R-T Axes : 015 002 012 degrees ?? QTc Int : 433 ms ? Normal sinus rhythm Normal ECG When compared with ECG of 09-JUL-2022 16:37, No significant change was found Cardiac cath 2021 EF 45%. 40% ostial diagonal stenosis and minimal irregularities and other blood vessels.? Her LVEDP was normal. ECHO 2021 Conclusions: - The left ventricular systolic function is mildly decreased.? ? The visually estimated ejection fraction is between 45-50%.? ? ? - There is mild calcification of the aortic valve. ? - No obvious valvular pathology seen on this study.? Assessment and Plan Assessment Anesthesia Assessment: Chart Reviewed Final Anesthetic Review Family History of Problems with Anesthesia: No History of Problems with Anesthesia: No Documented by User: Evelyn Cartagena MD 04/21/23 12:55 [facility] Past Medical History Medical History Acute and chronic respiratory failure with hypoxia Asthma-COPD overlap syndrome Bipolar 1 disorder COPD (chronic obstructive pulmonary disease) COVID-19 Depression with anxiety Eosinophilia GERD (gastroesophageal reflux disease) Hemangioma History of ESBL E. coli infection Hypersomnia Hypothyroidism Hypovitaminosis D ILD (interstitial lung disease) Insomnia Lumbar degenerative disc disease Lupus (systemic lupus erythematosus) Moderate recurrent major depression Morbid obesity with BMI of 40.0-44.9, adult Neck mass Obesity Obstructive sleep apnea ROB on CPAP Oxygen dependent Polyarthralgia Recurrent UTI Severe asthma Snoring Tachycardia Trigger finger of right hand Urinary retention Family History Family History Father No problems noted. Mother No problems noted. Sister Nasopharyngeal cancer Surgical History Surgical History History of carpal tunnel release History of section History of colonoscopy History of cystocele History of esophagogastroduodenoscopy (EGD) History of hysterectomy History of shoulder surgery History of tonsillectomy Hx of cardiac catheterization Hx of hand surgery Social History Social History Household Members: None Household Members Other:: 1 Housing: Apartment Do you presently have visiting nurse or other home services: Yes (Has [employer]) Alcohol intake: never Patient Tobacco Use Status: Former Tobacco user Tobacco use type: Cigarette Cigarettes Per Day: 5 Years Smoked: 14 e-Cigarette/Vaping Use: Never Used Second Hand Smoke Exposure: No Advance Directives Date on File: 01/08/21 service: No Current occupational status: disabled Current occupation: right and left handed--- HAS [employer] Cognitive needs: Yes Hearing needs: No Vision needs: Yes Meds Allergies Allergy/AdvReac Type Severity Reaction Status Date / Time No Known Allergies Allergy Verified 04/12/23 16:01 Home Medications Medication Instructions Recorded Confirmed Last Taken Type oxygen-air delivery systems ##1 08/24/20 04/12/23 Unknown History topiramate 100 mg tablet 100 mg PO BID 07/13/22 04/14/23 Unknown History benralizumab 30 mg/mL subcutaneous 30 mg subcut QWEEK 12/21/22 04/14/23 Unknown History syringe (Fasenra) Exam Airway Mallampati Class: III TM Dist: >3cm Neck ROM: Full Denture: Upper Partial: Lower Heart: rrr Lungs: cta Assessment and Plan Assessment Anesthesia Assessment: Anesthesia Plan Discussed Final Anesthetic Review NPO: Yes ASA Class: III Final Preanesthetic Review: No Changes in Pt Med Stat, Meds/Allgs Chart Reviewed and Consent Obtained/Reviewed Patient Risk: Intermediate Procedure Risk: Intermediate Anesthetic Plan Anesthetic Plan: MAC: Disposition: Standard PACU
[2023-04-19 14:08] VITALS: BMI 41.9
[2023-04-19 14:18] VITALS: BP 128/84; PULSE 90; RESP 20; TEMP 36.3; O2SAT 98
--- NOTE | 2023-04-19 14:19 | P.HPSUR_ITS ---
Pre-Procedural Eval Section A Date of Service: 04/19/23 Section B Chief Complaint: Upper abdominal pain,Gastroparesis, Relevant Family History (Specify if Yes): No Relevant Social History: None Present Medications: see Short Stay Collaborative assessment Medical History: Significant History (Acute and chronic respiratory failure with hypoxia Asthma-COPD overlap syndrome Bipolar 1 disorder COPD (chronic obstructive pulmonary disease) COVID-19 Depression with anxiety Eosinophilia GERD (gastroesophageal reflux disease) Hemangioma History of ESBL E. coli infection Hypersomnia Hypothyroidism) History of Previous Operations: Relevant previous surgery/procedure and date(s) (History of carpal tunnel release History of section History of colonoscopy History of cystocele History of esophagogastroduodenoscopy (EGD) History of hysterectomy History of shoulder surgery History of tonsillectomy Hx of cardiac catheterization Hx of hand surgery) Allergies: Allergies Allergy/AdvReac Type Severity Reaction Status Date / Time No Known Allergies Allergy Verified 04/12/23 16:01 Review of Systems Sugical H&P ROS: Negative: Constitution, Cardiovascular, Respiratory, Neurological, Psychiatric, Hem-Onc, Allergic/Immunologic, Gastrointestinal, Genitourinary, Musculoskeletal, Integumentary, Endocrine and Eyes/Ears/Nose/Throat Exam Surgical H&P Exam: Normal: HEENT, Normal: Heart, Normal: Lungs, Normal: Extr emities, Normal: Abdomen, Normal: Skin and Normal: Neurological Plan Diagnosis/Plan: Unchanged I have reviewed the history and physical and performed a pertinent physical examination on my patient. No changes have occurred unless specified. Time Spent With Patient Time: Total time managing care of this patient today ____ minutes.
[2023-04-19] MEDS: Lactated Ringers 1,000 ML 100 ML IVCONT (14:31)
--- NOTE | 2023-04-19 14:55 | W.PM.OPN ---
Operative Note Operative Note Date of Service: 04/19/23 Narrative: Procedure Description: EGD Indication: dysphagia Anesthesia: MAC FLEXIBLE TRANSORAL UPPER GASTROINTESTINAL ENDOSCOPY UPPER ENDOSCOPY Consent: Indications for the procedure and potential complications of bleeding, perforation, reaction to medications and missed diagnosis were discussed with the patient and informed consent was obtained. Instrument: Olympus GIF H 190 J mid size upper endoscope Monitoring: Vital signs and clinical assessment, continuous EKG monitoring, Pulse oximetry, Carbon Dioxide monitoring and blood pressure monitoring were done throughout the procedure. Procedure: The patient was placed in the left lateral decubitis position and pre-procedure medications were administered and a bite block was placed. The endoscope was inserted into the mouth and advanced under direct vision to the third part of duodenum. A careful inspection was made as the upper endoscope was withdrawn including a retroflexed examination of the proximal stomach; Findings and interventions are described below. Findings: Larynx:normal Esophagus: GE junction at 38? cm, diaphragm hiatus at 38 cm, savary wire passed and then 17 mm bougie passed followed by a 18 mm bougie over a savary wire. some heme noted at the GEJ Stomach: Mild patchy gastric erythema in fundus. . Grade 2 flap valve on retroflexed examination of the cardia. Duodenum: Normal bulb and descending duodenum, Intervention: Savary wire dilation Impression/Findings: esophageal dilation gastritis-mild PLAN: can take tylenol if needed with magic mouthwash, if sx persist then manometry
[2023-04-19 15:01] VITALS: BP 101/60; PULSE 86; RESP 16; TEMP 36.5; O2SAT 95
[2023-04-19 15:15] VITALS: BP 97/68; PULSE 86; RESP 16; O2SAT 96
[2023-04-19 15:30] VITALS: BP 103/70; PULSE 86; RESP 16; O2SAT 97
[2023-04-19 15:45] VITALS: BP 101/73; PULSE 86; RESP 16; TEMP 36.3; O2SAT 95
[2023-04-19 16:15] VITALS: BP 105/75; PULSE 87; RESP 16; TEMP 36.3; O2SAT 96
[2023-04-19] MEDS: Acetaminophen 325 MG TABLET 975 MG PO (16:21)
[2023-04-19] MEDS: Mag&Al/Sim/Diphenhyd/Lidocaine 10 ML ORAL.SUSP PO (16:33)
== END 2023-04-19 16:59 | disposition home or self-care (01) ==
PROVIDERS: PCP Internal Medicine; Visit Provider Internal Medicine Gastroenterology
PROC: (CPT 43248; principal; 2023-04-19 14:50)
DX: R13.10 Dysphagia, unspecified (principal); K31.84 Gastroparesis; K21.9 Gastro-esophageal reflux disease without esophagitis; K29.50 Unspecified chronic gastritis without bleeding; K44.9 Diaphragmatic hernia without obstruction or gangrene; R68.2 Dry mouth, unspecified; J44.9 Chronic obstructive pulmonary disease, unspecified; G47.33 Obstructive sleep apnea (adult) (pediatric); J96.21 Acute and chronic respiratory failure with hypoxia; Z99.81 Dependence on supplemental oxygen; M32.9 Systemic lupus erythematosus, unspecified; R00.0 Tachycardia, unspecified; F41.8 Other specified anxiety disorders; Z99.89 Dependence on other enabling machines and devices; Z79.899 Other long term (current) drug therapy; Z66 Do not resuscitate; Z87.891 Personal history of nicotine dependence; Z86.16 Personal history of COVID-19
CPT/HCPCS: 43248; C1769

== ENCOUNTER → 2023-04-24 13:08 | Outpatient (BNVA) | payer OTHER, SELFPAY | PROVIDERS: PCP Internal Medicine; Visit Provider Hospitalist | DX: J45.50 Severe persistent asthma, uncomplicated (principal); J84.9 Interstitial pulmonary disease, unspecified; K21.9 Gastro-esophageal reflux disease without esophagitis; G47.33 Obstructive sleep apnea (adult) (pediatric); I95.1 Orthostatic hypotension; Z99.81 Dependence on supplemental oxygen; Z99.89 Dependence on other enabling machines and devices | CPT/HCPCS: 99212 ==

== ENCOUNTER → 2023-04-26 06:49 | Outpatient (REF) | payer OTHER, SELFPAY ==
--- NOTE | ~2023-04-26 | NM_ITS ---
EXAMINATION: GA RADIONUCLIDE SOLID FOOD GASTRIC EMPTYING 4-HOUR STUDY CLINICAL INFORMATION: Early satiety. COMPARISON: Prior gastric emptying study done on 01/04/2021. TECHNIQUE: A standard meal consisting of 4 oz of Egg Beaters brand tagged with 970 microcuries Tc-99m Sulfur Colloid, 8 oz water and 2 slices of toast with jelly was administered orally to the patient. Images were obtained using a dual head gamma camera in the anterior and posterior projections over of the stomach immediately post ingestion and at hourly intervals up to 4 hours post ingestion. The anterior and posterior counts at each time interval were averaged using the geometric mean and expressed as percentage of the immediate post ingestion counts. FINDINGS: There is good visualization of activity in the stomach immediately post ingestion. As the study progresses, there is good clearance of activity from the stomach and visualization of progressively increasing small bowel activity. By the end of the study, there is almost no retention noted in the stomach. Retention in the stomach at each time interval was: 1 hour 65% (normal 37%-90%) previously 100%. 2 hours 35% (normal 30%-60%) previously 67%. 3 hours 6% previously 47%. 4 hours 5% (normal 0%-10%) previously 40%. NM/GA gastric emptying study IMPRESSION: Normal 4-hour solid food gastric emptying study. Previously documented delayed gastric emptying is no longer present.
[2023-04-26 08:09] LABS: Alanine Aminotransferase 10 U/L (0-31); Albumin Level 3.8 g/dL (3.5-5.0); Alkaline Phosphatase 77 U/L (39-117); Anion Gap 13 (12-20); Aspartate Amino Transferase 14 U/L (5-31); Bilirubin Total 0.3 mg/dL (0.0-1.0); Blood Urea Nitrogen 10 mg/dL (9-16); Calcium 9.8 mg/dL (8.4-10.2); Carbon Dioxide 21 mmol/L (22-29); Chloride 115 mmol/L (96-108); Cholesterol 143 mg/dL; Estimated Glomerular Filt Rate > 60; Glucose Fasting 123 mg/dL (60-99); HDL Cholesterol 44 mg/dL; LDL Cholesterol Calculated 76 mg/dl; Potassium 3.6 mmol/L (3.3-5.1); Sodium 145 mmol/L (135-145); Total Protein 6.8 g/dL (6.5-8.0); Triglycerides 119 mg/dL
[2023-04-26 08:25] LABS: Thyroid Stimulating Hormone 2.96 uIU/mL (0.32-4.0); Vitamin D 25-OH Total 37.5 ng/mL (>30)
[2023-04-26 08:31] LABS: Folate 11.1 ng/mL (> or = 4.0); Vitamin B12 194 pg/mL (200-900)
[2023-05-01 21:18] LABS: NT-proBNP 54 pg/mL (<125)
== END ==
LOC: HO.NUCMED 06:49
PROVIDERS: Absent Provider Internal Medicine; PCP Internal Medicine; Visit Provider Internal Medicine Gastroenterology
DX: R68.81 Early satiety (principal); E53.8 Deficiency of other specified B group vitamins; E78.5 Hyperlipidemia, unspecified; E03.9 Hypothyroidism, unspecified; I42.9 Cardiomyopathy, unspecified; E66.01 Morbid (severe) obesity due to excess calories; E55.9 Vitamin D deficiency, unspecified
CPT/HCPCS: 36415; 78264; 80053; 80061; 82306; 82607; 82746; 83880; 84443; 99212; A9541

== ENCOUNTER 2023-06-12 13:48 | Outpatient (REF) | payer OTHER, SELFPAY | END 2023-06-12 13:49 | disposition home or self-care (01) | LOC: HO.MDS 13:48 | PROVIDERS: Visit Provider Hospitalist | DX: J45.50 Severe persistent asthma, uncomplicated (principal) | CPT/HCPCS: 96372 ==

== ENCOUNTER → 2023-06-12 20:30 | Outpatient (BNV) | payer OTHER, SELFPAY | PROVIDERS: Visit Provider Psychiatry & Neurology Neurology | DX: G47.33 Obstructive sleep apnea (adult) (pediatric) (principal) | CPT/HCPCS: 95810 ==

== ENCOUNTER → 2023-06-12 20:34 | Outpatient (REF) | payer OTHER, SELFPAY | LOC: HO.SL 20:34 | PROVIDERS: Visit Provider Nurse Practitioner Family | DX: G47.33 Obstructive sleep apnea (adult) (pediatric) (principal); G47.10 Hypersomnia, unspecified; R06.83 Snoring; Z99.81 Dependence on supplemental oxygen | CPT/HCPCS: 95810 ==

== ENCOUNTER → 2023-06-13 12:50 | Outpatient (REF) | payer OTHER, SELFPAY ==
--- NOTE | 2023-06-13 12:53 | HM_ITS ---
Conclusion: 1. Patient was monitored for total period of 4 days and 12 hours 2. Baseline was normal sinus with average heart of 92 beats per minute 3. No significant pauses noted 4. Very rare ectopy noted 5. No patient reported events MTDD
== END ==
LOC: HO.CARD 12:50
PROVIDERS: PCP Internal Medicine; Visit Provider Internal Medicine Cardiovascular Disease
DX: R00.2 Palpitations (principal)
CPT/HCPCS: 93246

== ENCOUNTER → 2023-06-13 12:53 | Outpatient (BNV) | payer OTHER, SELFPAY | PROVIDERS: PCP Internal Medicine; Visit Provider Internal Medicine Cardiovascular Disease | DX: R00.2 Palpitations (principal) | CPT/HCPCS: 93248 ==

== ENCOUNTER 2023-07-04 01:10 | Emergency (ER) | payer OTHER, SELFPAY ==
--- NOTE | ~2023-07-04 | XR_ITS ---
EXAMINATION: XR KNEE, RIGHT CLINICAL INFORMATION: Pain and swelling. COMPARISON: None available. TECHNIQUE: Four views of the right knee. FINDINGS: The bone mineralization is normal. There is mild medial knee degenerative change with loss of joint space, mild subchondral sclerosis and mild osteophyte formation. There is no fracture. There is no joint effusion. Soft tissue calcifications are noted. XR/XR knee RT 3V IMPRESSION: 1. Mild medial knee degenerative change. 2. No acute osseous abnormality or joint effusion.
[2023-07-04 01:14] VITALS: BP 140/70; PULSE 98; O2SAT 92
[2023-07-04 01:16] VITALS: BP 102/63; PULSE 89; RESP 18; TEMP 36.9; O2SAT 98; BMI 41.2
--- NOTE | 2023-07-04 02:14 | ED.EXTPRO ---
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 Patient states that she had used her cane throughout the day as it was difficult to bend the knee. Related Data Home Medications Medication Instructions Recorded Confirmed oxygen-air delivery systems ##1 08/24/20 04/26/23 topiramate 100 mg tablet 100 mg PO BID 07/13/22 04/26/23 benralizumab 30 mg/mL subcutaneous 30 mg subcut QWEEK 12/21/22 04/26/23 syringe ([employer]) lidocaine HCl 2 % mucosal solution ml PO 04/24/23 04/26/23 (Lidocaine Viscous) estradiol 0.01% (0.1 mg/gram) 1 g vaginal 3XW 04/26/23 04/26/23 vaginal cream Previous Rx's Medication Instructions Recorded shower seat #1 ea 11/23/20 miscellaneous medical supply #1 ea 12/22/20 cromolyn 4 % eye drops 1 drp ophthalmic (eye) QID PRN 03/02/22 itching #10 mL electric wheelchair #1 ea 04/30/22 lidocaine 5 % topical patch 1 patch topical DAILY PRN pain #15 07/09/22 ea clonazepam 1 mg tablet 1 mg PO DAILY PRN Anxiety 30 days 08/26/22 #30 tabs blood pressure kit-extra large #1 ea 08/29/22 carboxymethylcellulose sodium 0.5 1 drp ophthalmic (eye) BID PRN dry 09/06/22 % eye drops in a dropperette eye(s) 30 days #30 ea loratadine 10 mg tablet 10 mg PO DAILY 30 days #30 tabs 09/26/22 zolpidem 10 mg tablet 10 mg PO BEDTIME PRN Insomnia 30 10/24/22 days #30 tabs wheeled table with drawers #1 ea 12/05/22 albuterol sulfate 2.5 mg/3 mL 2.5 mg (3 mL) inhalation Q6H PRN 12/23/22 (0.083 %) solution for nebulization shortness of breath or wheezing 30 days #180 mL simethicone 125 mg chewable tablet 125 mg PO QID PRN abdominal 12/28/22 distention #60 tabs adult diapers pull-ups #240 ea 02/13/23 disposable gloves (Biobrane Gloves #200 ea 02/13/23 Large) flushable wipes #240 ea 02/13/23 underpads (Bed Underpads) #100 ea 02/13/23 esomeprazole magnesium 40 mg 40 mg PO DAILY #90 caps 04/03/23 capsule,delayed release (Nexium) lubiprostone 24 mcg capsule 24 mcg PO BID #60 caps 04/03/23 cpunkrecvc-vuzzamvuksbhk-fyslddhm 1 cap PO Q8H PRN pain #24 caps 04/12/23 50 mg-300 mg-40 mg capsule (Fioricet) diphenhydramine HCl 25 mg capsule 25 mg PO BEDTIME PRN sleep #30 caps 04/14/23 (Banophen) Magic Mouthwash 10 ml PO QID #240 mL 04/19/23 Diphen/Lido/Antacid 1:1:1 240 mL suspension albuterol sulfate 90 mcg/actuation 2 puff inhalation Q4H PRN Wheezing 04/24/23 aerosol inhaler #8.5 grams fluticasone fur. 200 mcg-umeclid 1 inh inhalation DAILY 30 days #60 04/24/23 62.5 mcg-vilant 25 mcg ea inhalat.powder (Trelegy Ellipta) trazodone 100 mg tablet 100 mg PO BEDTIME PRN sleep 90 05/08/23 days #90 tabs amitriptyline 100 mg tablet 100 mg PO BEDTIME 90 days #90 tabs 05/09/23 bupropion HCl 300 mg 24 hr tablet, 300 mg PO DAILY 90 days #90 tabs 05/09/23 extended release cetirizine 10 mg tablet 10 mg PO DAILY PRN allergy 05/09/23 symptoms 90 days #90 tabs cholecalciferol (vitamin D3) 25 25 mcg PO DAILY #30 caps 05/09/23 mcg (1,000 unit) capsule (Vitamin D3) gabapentin 300 mg capsule 300 mg PO BID 90 days #180 caps 05/09/23 levothyroxine 50 mcg tablet 50 mcg PO DAILY@0630 #90 tabs 05/09/23 rosuvastatin 10 mg tablet (Crestor) 10 mg PO .q 48 #30 tabs 05/09/23 nebulizers (AeroEclipse II #1 ea 05/15/23 Nebulizer) cephalexin 500 mg capsule 500 mg PO BID 5 days #10 caps 07/04/23 Allergies Allergy/AdvReac Type Severity Reaction Status Date / Time No Known Allergies Allergy Verified 07/04/23 01:25 Review of Systems Review of Systems: Pertinent positives and negatives as stated in HPI. [facility] Past Medical History Source: nursing notes reviewed Medical History Acute and chronic respiratory failure with hypoxia Asthma-COPD overlap syndrome Bipolar 1 disorder COPD (chronic obstructive pulmonary disease) COVID-19 Depression with anxiety Eosinophilia GERD (gastroesophageal reflux disease) Hemangioma History of ESBL E. coli infection Hypersomnia Hypothyroidism Hypovitaminosis D ILD (interstitial lung disease) Insomnia Lumbar degenerative disc disease Lupus (systemic lupus erythematosus) Moderate recurrent major depression Morbid obesity with BMI of 40.0-44.9, adult Neck mass Obesity Obstructive sleep apnea ROB on CPAP Oxygen dependent Polyarthralgia Recurrent UTI Severe asthma Snoring Tachycardia Trigger finger of right hand Urinary retention Surgical History History of carpal tunnel release History of section History of colonoscopy History of cystocele History of esophagogastroduodenoscopy (EGD) History of hysterectomy History of shoulder surgery History of tonsillectomy Hx of cardiac catheterization Hx of hand surgery Family History Family History Father No problems noted. Mother No problems noted. 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 GENERAL: Elevated BMI Well developed, well nourished, in no acute distress. HEAD: Normocephalic/atraumatic EYES: PERRLA, EOMI intact without pain, no nystagmus/pallor/icterus noted EARS: Ext canals without abnormality LUNGS: Normal breath sounds. No adventitious sounds or accessory muscle use. SpO2<98> CARDIOVASCULAR: Regular rate and rhythm without noted murmurs ABDOMEN: Soft, non-tender, non-distended with bowel sounds. MUSCULOSKELETAL: No tenderness, deformities, or effusions noted on gross inspection. EXTREMITIES: No cyanosis, clubbing or edema. RIGHT KNEE: Very difficult to determine whether not there is swelling, but there is a small area of erythema without induration and appears to be tender to light touch. SKIN: Inspection of the skin reveals no rashes NEUROLOGIC: Alert and oriented x 4. Strength and sensation to light touch were grossly intact x 4. Medical Decision Making Medical Decision Making MDM Narrative: 63-year-old female with history and clinical presentation, DDX: superficial cellulitis, osteoarthritis. On review of all investigations x-ray is negative for fracture or dislocation instead shows chronic arthritis, there is a superficial cellulitis will be treated with a short course of antibiotics and 1st dose will be given here. Patient also provided with combination analgesics of Tylenol and ibuprofen. She was instructed to follow-up with her primary care doctor by calling the office 1st thing in the morning. Differential Diagnosis Differential Diagnoses: The differential diagnosis associated with the presentation includes Please see the discussion above Admission/Observation Consideration of admission/observation: Escalation of care including admission/observation considered Please see the discussion above Radiology Impression Discussion of test interpretation with radiology: I have reviewed the radiologist's reading. Radiologist Impression: Please see the discussion above Discharge Plan Discharge Clinical Impression: Osteoarthritis, Cellulitis Patient Disposition: Home, Self-Care Instructions: Cellulitis (ED), Osteoarthritis (ED) Additional Instructions: 1. Shanika verduzco medicamentos caseros seg?n lo recetado. 2. Complete el tratamiento con antibi?ticos seg?n lo indicado. 3. Recomiende Tylenol/ibuprofeno de venta bria seg?n sea necesario para controlar el dolor. 4. Comun?quese con mathias proveedor de atenci?n primaria esta ma?reji. Regrese a la hitesh de emergencias si los s?ntomas empeoran. 1. Resume all home medications as prescribed. 2. Please complete the course of antibiotics as ordered. 3. Recommend wvbd-nmv-wlynnii Tylenol/ibuprofen as needed for pain control. 4. Please contact your primary care provider this morning. Return to the ER for any worsening symptoms. Prescriptions: New cephalexin 500 mg capsule 500 mg PO BID 5 Days Qty: 10 0RF No Action (DME) shower seat See Rx Instructions .Route .MEDSUPPLY Qty: 1 0RF Rx Instructions: As directed (DME) miscellaneous medical supply Misc See Rx Instructions .ROUTE .MEDSUPPLY Qty: 1 0RF Rx Instructions: OVERBED TABLE (DME) electric wheelchair See Rx Instructions .Route .MEDSUPPLY Qty: 1 0RF Rx Instructions: As directed clonazepam 1 mg tablet 1 mg PO DAILY PRN (Reason: Anxiety) 30 Days Qty: 30 0RF carboxymethylcellulose sodium 0.5 % dropperette 1 drp ophthalmic (eye) BID PRN (Reason: dry eye(s)) 30 Days Qty: 30 2RF loratadine 10 mg tablet 10 mg PO DAILY 30 Days Qty: 30 11RF zolpidem 10 mg tablet 10 mg PO BEDTIME PRN (Reason: Insomnia) 30 Days Qty: 30 0RF (DME) wheeled table with drawers See Rx Instructions .Route .MEDSUPPLY Qty: 1 0RF Rx Instructions: As directed albuterol sulfate 2.5 mg /3 mL (0.083 %) solution for nebulization 2.5 mg inhalation Q6H PRN (Reason: shortness of breath or wheezing) 30 Days Qty: 180 11RF simethicone 125 mg tablet,chewable 125 mg PO QID PRN (Reason: abdominal distention) Qty: 60 0RF (DME) flushable wipes See Rx Instructions .Route .MEDSUPPLY Qty: 240 6RF Rx Instructions: As directed (DME) disposable gloves [Biobrane Gloves Large] Misc See Rx Instructions .Route Qty: 200 6RF Rx Instructions: As directed (DME) underpads [Bed Underpads] Pad See Rx Instructions .Route Qty: 100 6RF Rx Instructions: As directed (DME) adult diapers pull-ups 2Xlarge See Rx Instructions .Route .MEDSUPPLY Qty: 240 6RF Rx Instructions: As directed diphenhydramine HCl [Banophen] 25 mg capsule 25 mg PO BEDTIME PRN (Reason: sleep) Qty: 30 0RF trazodone 100 mg tablet 100 mg PO BEDTIME PRN (Reason: sleep) 90 Days Qty: 90 0RF amitriptyline 100 mg tablet 100 mg PO BEDTIME 90 Days Qty: 90 1RF bupropion HCl 300 mg tablet extended release 24 hr 300 mg PO DAILY 90 Days Qty: 90 1RF cetirizine 10 mg tablet 10 mg PO DAILY PRN (Reason: allergy symptoms) 90 Days Qty: 90 1RF cholecalciferol (vitamin D3) [Vitamin D3] 25 mcg (1,000 unit) capsule 25 mcg PO DAILY Qty: 30 1RF gabapentin 300 mg capsule 300 mg PO BID 90 Days Qty: 180 0RF levothyroxine 50 mcg tablet 50 mcg PO DAILY@0630 Qty: 90 0RF rosuvastatin [Crestor] 10 mg tablet 10 mg PO .q 48 Qty: 30 3RF (DME) nebulizers [AeroEclipse II Nebulizer] Misc See Rx Instructions .Route Qty: 1 0RF Rx Instructions: As directed lidocaine 5 % adhesive patch,medicated 1 patch topical DAILY PRN (Reason: pain) Qty: 15 0RF Rx Instructions: leave on most painful area for up to 12 hrs Magic Mouthwash Diphen/Lido/Antacid 1:1:1 240 mL suspension 10 ml PO QID Qty: 240 0RF Rx Instructions: Lidocaine Viscous 2 % 80mL; diphenhydramine 12.5 mg/5 mL 80mL; aluminum-mag hydrox-simeth [id number]/5mL 80mL (DME) oxygen-air delivery systems Device See Rx Instructions .ROUTE .MEDSUPPLY Qty: 1 Rx Instructions: As directed cromolyn 4 % drops 1 drp ophthalmic (eye) QID PRN (Reason: itching) Qty: 10 0RF nhhvieqtip-lxwzyydeclqhm-rwej [Fioricet] 50-300-40 mg capsule 1 cap PO Q8H PRN (Reason: pain) Qty: 24 0RF topiramate 100 mg tablet 100 mg PO BID (DME) blood pressure kit-extra large Kit See Rx Instructions .Route Qty: 1 0RF Rx Instructions: As directed Fasenra 30 mg/mL syringe 30 mg subcut QWEEK lubiprostone 24 mcg capsule 24 mcg PO BID Qty: 60 2RF esomeprazole magnesium [Nexium] 40 mg capsule,delayed release(DR/EC) 40 mg PO DAILY Qty: 90 2RF estradiol 0.01 % (0.1 mg/gram) cream 1 g vaginal 3XW lidocaine HCl [Lidocaine Viscous] 2 % solution PO albuterol sulfate 90 mcg/actuation HFA aerosol inhaler 2 puff inhalation Q4H PRN (Reason: Wheezing) Qty: 8.5 11RF Trelegy Ellipta 200-62.5-25 mcg blister with device 1 inh inhalation DAILY 30 Days Qty: 60 12RF Print Language: Monegasque
[2023-07-04 04:28] VITALS: BP 97/60; PULSE 90; RESP 14; TEMP 36.7; O2SAT 99
[2023-07-04] MEDS: Acetaminophen 325 MG TABLET 975 MG PO (04:50)
[2023-07-04] MEDS: Ibuprofen 400 MG TABLET PO (04:50)
[2023-07-04] MEDS: cephALEXin 500 MG CAPSULE PO (04:50)
--- NOTE | 2023-07-04 04:58 | MHC.EDTECH ---
Call out to [facility] @[phone] to book BLS transport back home
== END 2023-07-04 07:54 | disposition home or self-care (01) ==
PROVIDERS: Emergency Provider Student in an Organized Health Care Education/Training Program
DX: L03.115 Cellulitis of right lower limb (principal); M25.561 Pain in right knee; Z79.899 Other long term (current) drug therapy; Z87.891 Personal history of nicotine dependence
CPT/HCPCS: 73562; 99283; 99284

== ENCOUNTER 2023-07-15 11:21 | Outpatient (AMB) | payer OTHER, SELFPAY ==
[2023-07-15 11:34] VITALS: BP 100/64; PULSE 98; TEMP 37.1; O2SAT 96; BMI 41.6
--- NOTE | 2023-07-15 11:34 | MHC.OFFWIV ---
Intake Vital Signs 07/15/23 11:34 Height 5 ft 1 in Weight 220 lb BMI 41.6 BP 100/64 Blood Pressure Location Lt brachial Position Sitting Pulse 98 Pulse Source Pulse Oximeter Temp 98.8 F Temp Source Oral Pulse Oximetry (%) 96 Oxygen Delivery Method Room Air Intake Visit Reasons: EP RT knee ?cellulitis Intake Note: pt is here for RT knee swelling possible celluitis, was seen in ER round of antibiotics completed but still redness Patient Tobacco Use Status: Former Tobacco user Allergies No Known Allergies Allergy (Verified 07/15/23 11:34) Do you need a note to return to daycare/school/sports/work: No HPI HPI Comments History of Present Illness Details This is a 63-year-old female who presents to the office today for sick visit. Patient complaining of persistent erythema of the right knee and knee pain x 10 days. Patient was seen in the emergency room on 07/04/2023 and is diagnosed with cellulitis and osteoarthritis. She was sent home on a 5 day course of p.o. cephalexin. Patient completed this course of antibiotics but she continues to have erythema and pain of the right knee. She denies any fevers or chills. She denies any lymphangitic streaking but states that the erythema has slightly spread towards her thigh. Patient is otherwise feeling well. [facility] Medical History Acute and chronic respiratory failure with hypoxia Asthma-COPD overlap syndrome Bipolar 1 disorder COPD (chronic obstructive pulmonary disease) COVID-19 Depression with anxiety Eosinophilia GERD (gastroesophageal reflux disease) Hemangioma History of ESBL E. coli infection Hypersomnia Hypothyroidism Hypovitaminosis D ILD (interstitial lung disease) Insomnia Lumbar degenerative disc disease Lupus (systemic lupus erythematosus) Moderate recurrent major depression Morbid obesity with BMI of 40.0-44.9, adult Neck mass Obesity Obstructive sleep apnea ROB on CPAP Oxygen dependent Polyarthralgia Recurrent UTI Severe asthma Snoring Tachycardia Trigger finger of right hand Urinary retention Surgical History History of carpal tunnel release History of section History of colonoscopy History of cystocele History of esophagogastroduodenoscopy (EGD) History of hysterectomy History of shoulder surgery History of tonsillectomy Hx of cardiac catheterization Hx of hand surgery Family History Father No problems noted. Mother No problems noted. 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 Cognitive needs: Yes Hearing needs: No Vision needs: Yes Female Reproductive History Menstrual Age of Menarche: 12 Review of Systems Const All systems reviewed & are unremarkable except as noted in HPI and below Reports no additional complaints Eyes Reports no additional complaints ENT Reports no additional complaints Card Reports no additional complaints Resp Reports no additional complaints GI Reports no additional complaints Reports no additional complaints Musc Reports no additional complaints Skin/Breast Reports system reviewed and no additional complaints, except as documented Neuro Reports no additional complaints Psych Reports no additional complaints Endo Reports no additional complaints Jr/Lymph Reports no additional complaints Aller/Immun Reports no additional complaints Physical Exam Vital Signs: Last Vital Signs Temp 98.8 F 07/15/23 11:34 Pulse 98 07/15/23 11:34 BP 100/64 07/15/23 11:34 Pulse Ox 96 07/15/23 11:34 Oxygen Delivery Method Room Air 07/15/23 11:34 BMI result Body Mass Index 41.6 Const General: cooperative, healthy appearing, no acute distress and well developed Orientation/consciousness: patient oriented x3 HEENT Head: Yes normal to inspection Ears: hearing grossly normal bilaterally General nose exam: Normal external nose present Face and sinus: Yes normal facial exam Mouth: Normal oral and palatal mucosa present Eyes General: appearance normal, both eyes and all related structures Pupils: Equal, round and reactive pupils present EOM: EOMs intact bilaterally Resp Effort & Inspection: normal respiratory effort and no respiratory distress Auscultation: clear to auscultation bilaterally Cardio Rate: regular rate Rhythm: regular rhythm Heart sounds: no gallops, no murmurs and no rubs Peripheral pulses: Peripheral pulses 2+ throughout GI Inspection: No distended Palpation (GI): Soft to palpation and nontender Auscultation: normal bowel sounds Skin General skin exam: no rashes or lesions noted Neuro General: patient oriented x3 Cranial nerves: Yes CN's II-XII intact bilaterally and Yes Equal, round and reactive pupils present Gait exam (Neuro): Normal gait present Motor exam (neuro): 5/5 motor strength present throughout Extrem Other: Mild erythema of the right knee. No warmth, effusion, or swelling of the right knee. Mild tenderness to palpation of the anterior knee. No lymphangitic streaking. Fluctuance or induration. General: Yes full ROM and Yes no clubbing, cyanosis or edema Psych Appearance: grossly normal Mental Status: mental status grossly normal Assessment & Plan Assessment & Plan (1) Cellulitis of right knee: Code(s): L03.115 - Cellulitis of right lower limb Plan: This is a 63-year-old female who presents to the office complaining of persistent erythema and pain of the right knee despite a 5 day course of antibiotics. On physical examination, patient has mild erythema and tenderness to palpation of the anterior aspect of the right knee. No palpable effusion or significant warmth. Patient's vital signs are stable, her physical exam is otherwise benign, and she is overall nontoxic appearing. I have very low suspicion for septic arthritis. Patient likely has cellulitis of the right knee. X-ray of the right knee was obtained given persistent pain. Patient was sent home on p.o. trimethoprim sulfamethoxazole twice daily x7 days for treatment of cellulitis. Recommend rest/activity modification, ice to the area, lidocaine patches, and elevation of the extremity. Continue with acetaminophen/ibuprofen for pain management as long as patient has no medical contraindications. Patient was instructed to follow-up here or proceed directly to the emergency room if she were to develop worsening erythema, swelling, or fever/chills. Patient verbalized understanding and she is in agreement with the plan. Her daughter was available for translation and her daughter was also updated on plan of care. Medications: New sulfamethoxazole-trimethoprim 800-160 mg 1 tab PO BID 14 tabs 0RF lidocaine 5% leave on most painful area for up to 12 hrs 1 patch topical DAILY 15 ea 0RF Coding Level of Care Code Est Pt Level 3 (90848) Diagnoses Cellulitis of right knee L03.115
== END 2023-07-15 12:33 | disposition home or self-care (01) ==
PROVIDERS: PCP Internal Medicine; Visit Provider Physician Assistant Medical
DX: L03.115 Cellulitis of right lower limb (principal)
CPT/HCPCS: 99213

== ENCOUNTER 2023-07-15 12:11 | Outpatient (REF) | payer OTHER, SELFPAY ==
--- NOTE | ~2023-07-15 | XR_ITS ---
EXAMINATION: XR KNEE, RIGHT CLINICAL INFORMATION: Pain COMPARISON: 07/04/2023 TECHNIQUE: Four views of the right knee. FINDINGS: No significant joint effusion. Bones are normal anatomic alignment with no acute fracture or dislocation. Tricompartmental degenerative changes are again noted more so in the medial compartment where there is more significant joint space loss and osteophyte formation. XR/XR knee RT 4V IMPRESSION: Tricompartmental degenerative changes similar to the prior study.
== END 2023-07-15 12:12 | disposition home or self-care (01) ==
LOC: HO.HMGCX 12:11
PROVIDERS: PCP Internal Medicine; Visit Provider Physician Assistant Medical
DX: M25.561 Pain in right knee (principal)
CPT/HCPCS: 73564

== ENCOUNTER 2023-08-09 11:00 | Outpatient (REF) | payer OTHER, SELFPAY | END 2023-08-09 11:01 | disposition home or self-care (01) | LOC: HO.MDS 11:00 | PROVIDERS: Visit Provider Hospitalist | DX: J45.50 Severe persistent asthma, uncomplicated (principal) | CPT/HCPCS: 96372 ==

== ENCOUNTER 2023-08-09 12:33 | Outpatient (AMB) | payer OTHER, SELFPAY ==
[2023-08-09 12:32] VITALS: BP 102/68; PULSE 88; O2SAT 98; BMI 41.6
--- NOTE | 2023-08-09 12:32 | MHC.PC.OV ---
Vital Signs 08/09/23 12:32 Height 5 ft 1 in Weight 220 lb BMI 41.6 BP 102/68 Blood Pressure Location Lt brachial Position Sitting Pulse 88 Pulse Source Pulse Oximeter Temp Source Skin Pulse Oximetry (%) 98 Oxygen Delivery Method Room Air Intake Visit Reasons: bp Intake Note: pt states high blood pressure [employer] Consultant Required: No Allergies No Known Allergies Allergy (Verified 08/09/23 13:04) Medication List - Last Reconciled 08/09/23 by JANELLE Zhou [adult diapers pull-ups As directed] albuterol sulfate 2.5 mg (3 mL) inhalation Q6H PRN 30 days albuterol sulfate 90 mcg/actuation 2 puffs inhalation Q4H PRN amitriptyline 100 mg PO BEDTIME 90 days benralizumab (Fasenra) 30 mg subcut QWEEK benralizumab (Fasenra) 30 mg subcut Q8W 8 weeks blood pressure kit-extra large As directed bupropion HCl 300 mg PO DAILY 90 days vodyvasadr-asufpdnkycpez-uwvt 50-300-40 mg (Fioricet) 1 cap PO Q8H PRN carboxymethylcellulose sodium 0.5% 1 drp ophthalmic (eye) BID PRN 30 days cetirizine 10 mg PO DAILY PRN 90 days cholecalciferol (vitamin D3) (Vitamin D3) 25 mcg PO DAILY clonazepam 1 mg PO DAILY PRN 30 days cromolyn 4% 1 drp ophthalmic (eye) QID PRN diphenhydramine HCl (Banophen) 25 mg PO BEDTIME PRN disposable gloves (Biobrane Gloves Large) As directed [electric wheelchair As directed] esomeprazole magnesium (Nexium) 40 mg PO DAILY estradiol 0.01%(0.1mg/gram) 1 g vaginal 3XW [flushable wipes As directed] yfwysfzqkgv-jzuyvatmf-lvghrysw 200-62.5-25 mcg (Trelegy Ellipta) 1 inh inhalation DAILY 30 days gabapentin 300 mg PO BID 90 days levothyroxine 50 mcg PO DAILY@0630 lidocaine 5% 1 patch topical DAILY PRN lidocaine 5% 1 patch topical DAILY lidocaine HCl 2% (Lidocaine Viscous) mL PO loratadine 10 mg PO DAILY 30 days lubiprostone 24 mcg PO BID Magic Mouthwash Diphen/Lido/Antacid 1:1:1 10 mL PO QID miscellaneous medical supply OVERBED TABLE nebulizers (AeroEclipse II Nebulizer) As directed oxygen-air delivery systems As directed rosuvastatin (Crestor) 10 mg PO .q 48 [shower seat As directed] simethicone 125 mg PO QID PRN sulfamethoxazole-trimethoprim 800-160 mg 1 tab PO BID topiramate 100 mg PO BID trazodone 100 mg PO BEDTIME PRN 90 days underpads (Bed Underpads) As directed [wheeled table with drawers As directed] zolpidem 10 mg PO BEDTIME PRN 30 days Tobacco use date assessed: 08/09/23 Fall risk assessment: No Falls in past year Last assessed Fall Risk: 08/09/23 HPI bp HPI Details Patient is a 63-year-old female who presents today for the same day visit to follow-up on blood pressures. Patient of Dr. Lewis. Medical history significant for hypothyroidism, GERD, asthma-COPD overlap syndrome, depression obesity, low blood pressure-followed by Cardiology Dr. Thakkar next visit 08/23/2023. Patient denies shortness of breath or chest pain. She reports intermittent dizziness/lightheadedness, denies such symptoms in the office today. Patient reports that she did have high blood pressure for her at home 123/88. She thinks her blood pressure last night was 66/40. Patient denies acute symptoms in the office today. Blood pressure 102/68 in the office. Patient is a Georgian-speaking and her LABORATORY CUREMAN was helping with interpretation. [facility] Medical History Hypersomnia Snoring ILD (interstitial lung disease) ROB on CPAP History of ESBL E. coli infection Obstructive sleep apnea Morbid obesity with BMI of 40.0-44.9, adult Moderate recurrent major depression Urinary retention Acute and chronic respiratory failure with hypoxia COVID-19 Lupus (systemic lupus erythematosus) Polyarthralgia Neck mass Eosinophilia Severe asthma Asthma-COPD overlap syndrome Trigger finger of right hand Recurrent UTI Tachycardia Obesity Lumbar degenerative disc disease GERD (gastroesophageal reflux disease) Hemangioma Hypovitaminosis D Bipolar 1 disorder Depression with anxiety Insomnia Oxygen dependent COPD (chronic obstructive pulmonary disease) Hypothyroidism Surgical History Hx of hand surgery Hx of cardiac catheterization History of esophagogastroduodenoscopy (EGD) History of cystocele History of colonoscopy History of shoulder surgery History of carpal tunnel release History of hysterectomy History of section History of tonsillectomy Family History Father No problems noted. Mother No problems noted. 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 1. Little interest or pleasure in doing things: several days 2. Feeling down, depressed, or hopeless: several days 3. Trouble falling or staying asleep, or sleeping too much: several days 4. Feeling tired or having little energy: several days 5. Poor appetite or overeating: several days 6. Feeling bad about yourself - or that you are a failure or have let yourself or your family down: several days 7. Trouble concentrating on things, such as reading the newspaper or watching television: several days 8. Moving or speaking so slowly that other people could have noticed. Or the opposite - being so fidgety or restless that you have been moving around a lot more than usual: not at all 9. Thoughts that you would be better off or of hurting yourself in some way: not at all Total score: 7 Depression Screening Interpretation: Positive Depression Screening Follow-up: Existing condition Depression Screening Done: Yes 19995 - PHQ-9 Billing: Yes Source: Developed by Drs. Power Thornton, Melissa Peñaloza, Master Grijalva and colleagues, with an educational sudhir from [employer]. Thrive Questionnaire Date Thrive assessed: 12/13/22 AUDIT C Alcohol Use Questionnaire (AUDIT-C) 1. How often do you have a drink containing alcohol?: Never Total Score: 0 Score Reviewed/Action Taken: No DAO-7 AMB Questionnaire DAO-7 Date DAO - 7 assessed: 12/13/22 Source: Developed by Drs. Power Thornton, Melissa Peñaloza, Master Grijalva and colleagues, with an educational sudhir from [employer]. Review of Systems Const Denies body aches, Denies chills, Denies fever(s) and Denies headache(s) ENT Denies dizziness, Denies otalgia, Denies headache(s), Denies nasal discharge, Denies sinus pain and Denies sore throat Card Reports as per HPI, Denies chest pain, Denies edema, Denies lightheadedness and Denies dyspnea Resp Denies dyspnea and Denies wheezing GI Denies abdominal pain Denies dysuria Musc Denies myalgias Skin/Breast Denies rash Neuro Denies dizziness and Denies headache(s) Aller/Immun Denies wheezing Physical exam (Primary Care) Vital Signs: Last Vital Signs Pulse 88 08/09/23 12:32 BP 102/68 08/09/23 12:32 Pulse Ox 98 08/09/23 12:32 Oxygen Delivery Method Room Air 08/09/23 12:32 BMI result Body Mass Index 41.6 Tobacco/Smoking Status: Tobacco use Status Tobacco use date assessed 08/09/23 08/09/23 12:34 Patient Tobacco Use Status Former Tobacco user 08/09/23 12:34 Tobacco use type 07/15/23 11:19 e-Cigarette/Vaping Use Never Used 08/09/23 12:34 PHQ-9: PHQ-9 Score PHQ-9: Total score 7 08/09/23 13:07 Depression Screening Interpretation: Positive Depression Screening Follow-up: Existing condition Thrive Assessment: Date of Thrive Assessment Date Thrive assessed 12/13/22 08/09/23 12:34 Const Other: Ambulates with walker General: cooperative and no acute distress Orientation/consciousness: patient oriented x3 HENMT Head: Yes normocephalic and Yes atraumatic Eyes General: appearance normal, both eyes and all related structures Neck Neck: Yes normal visual inspection and Yes full ROM Resp Effort & Inspection: normal respiratory effort and able to speak in complete sentences Auscultation: clear to auscultation bilaterally, no crackles, no rales, no rhonchi and no wheezes Cardio Rate: regular rate Rhythm: regular rhythm Heart sounds: S1 normal heart sound present and S2 normal heart sound present GI Auscultation: normal bowel sounds Skin General skin exam: no rashes or lesions noted Neuro General: patient oriented x3 Extrem General: Yes full ROM and No edema Assessment and Plan Assessment & Plan (1) Low blood pressure: Code(s): I95.9 - Hypotension, unspecified Qualifiers: Hypotension type: orthostatic hypotension Qualified Code(s): I95.1 - Orthostatic hypotension Plan: Blood pressure acceptable in the office today. Patient denies dizziness, lightheadedness, shortness of breath or chest pain in the office. Patient was encouraged to monitor her blood pressures at home and keep blood pressure log, patient will follow-up with her ocean freight agent 08/23/2023, bring blood pressure readings for Cardiology for review. Patient was encouraged to increase fluid consumption and drink Gatorade. According to previous Cardiology note no need for midodrine at that time. Signs and symptoms reviewed when to notify provider or go to the emergency department. Patient agreed with the plan. Coding Level of Care Code Est Pt Level 3 (87855) Diagnoses Orthostatic hypotension I95.1 Hypotension type: orthostatic hypotension
== END 2023-08-09 13:21 | disposition home or self-care (01) ==
PROVIDERS: PCP Internal Medicine; Visit Provider Nurse Practitioner Family
DX: I95.1 Orthostatic hypotension (principal)
CPT/HCPCS: 99213

== ENCOUNTER 2023-08-23 09:52 | Outpatient (AMB) | payer OTHER, SELFPAY ==
[2023-08-23 09:56] VITALS: BP 84/64; PULSE 94; BMI 41.5
--- NOTE | 2023-08-23 09:56 | MHC.OFFVIS ---
Intake Vital Signs 08/23/23 09:56 Height 5 ft 1 in Weight 219 lb 9.286 oz BMI 41.5 BP 84/64 L Blood Pressure Location Lt brachial Position Sitting Pulse 94 Intake Visit Reasons: 4 mth f/up holter Intake Note: 4 month follow up Auto Cleaner Required: Yes Auto Cleaner Language: Kinyarwanda Accompanied by: Self / Same As Patient Allergies No Known Allergies Allergy (Verified 08/23/23 10:00) Medication List - Last Reconciled 08/23/23 by Grady Thakkra MD [adult diapers pull-ups As directed] albuterol sulfate 2.5 mg (3 mL) inhalation Q6H PRN 30 days albuterol sulfate 90 mcg/actuation 2 puffs inhalation Q4H PRN amitriptyline 100 mg PO BEDTIME benralizumab (Fasenra) 30 mg subcut QWEEK benralizumab (Fasenra) 30 mg subcut Q8W 8 weeks blood pressure kit-extra large As directed bupropion HCl 300 mg PO DAILY dkpnfdyrcf-lcuplocjquvja-hghm 50-300-40 mg (Fioricet) 1 cap PO Q8H PRN carboxymethylcellulose sodium 0.5% 1 drp ophthalmic (eye) BID PRN 30 days cetirizine 10 mg PO DAILY PRN 90 days cholecalciferol (vitamin D3) (Vitamin D3) 25 mcg PO DAILY clonazepam 1 mg PO DAILY PRN 30 days cromolyn 4% 1 drp ophthalmic (eye) QID PRN diphenhydramine HCl (Banophen) 25 mg PO BEDTIME PRN disposable gloves (Biobrane Gloves Large) As directed [electric wheelchair As directed] esomeprazole magnesium (Nexium) 40 mg PO DAILY estradiol 0.01%(0.1mg/gram) 1 g vaginal 3XW [flushable wipes As directed] ebvumhrsiwp-qyualrmmj-plfrevxl 200-62.5-25 mcg (Trelegy Ellipta) 1 inh inhalation DAILY 30 days gabapentin 300 mg PO BID 90 days levothyroxine 50 mcg PO DAILY@0630 lidocaine 5% 1 patch topical DAILY PRN lidocaine 5% 1 patch topical DAILY lidocaine HCl 2% (Lidocaine Viscous) mL PO loratadine 10 mg PO DAILY 30 days lubiprostone 24 mcg PO BID Magic Mouthwash Diphen/Lido/Antacid 1:1:1 10 mL PO QID miscellaneous medical supply OVERBED TABLE nebulizers (AeroEclipse II Nebulizer) As directed oxygen-air delivery systems As directed rosuvastatin 10 mg PO Q OTHER DAY 90 days [shower seat As directed] simethicone 125 mg PO QID PRN sulfamethoxazole-trimethoprim 800-160 mg 1 tab PO BID topiramate 100 mg PO BID trazodone 100 mg PO BEDTIME PRN 90 days underpads (Bed Underpads) As directed [wheeled table with drawers As directed] zolpidem 10 mg PO BEDTIME PRN 30 days HPI HPI Comments History of Present Illness Details 63-year-old female who is here for follow-up. She had background history of mild cardiomyopathy and chest discomfort for which she underwent cardiac catheterization showing no significant coronary disease. She was seen on last visit when she was having palpitations and viral illness and subsequently was found to have COVID-19 infection. She has been noticing some palpitations where she gets really sweaty and also gets some breathing problems. She has atypical chest pains. She definitely has anxiety issues and has been using clonazepam at nighttime and at times during the day too. She is accompanied by her MACHINE PRINTER HOSE who has concerns that her blood pressure at times is low in 90s. She drinks water and tries to hydrate herself. 08/23/23: She returns for follow-up. Her main complaint is low blood pressure readings at home. She has documented readings as low as 70s with heart rates in 1 100s. She is saying she gets tired and dizzy. She was advised last time to increase her salt intake and drink Gatorade and other electrolyte containing drinks but she has not done that. On home readings are clearly quite fluctuant and at times the blood pressure readings are low. She has not been on steroids long-term. [facility] Medical History Hypersomnia Snoring ILD (interstitial lung disease) ROB on CPAP History of ESBL E. coli infection Obstructive sleep apnea Morbid obesity with BMI of 40.0-44.9, adult Moderate recurrent major depression Urinary retention Acute and chronic respiratory failure with hypoxia COVID-19 Lupus (systemic lupus erythematosus) Polyarthralgia Neck mass Eosinophilia Severe asthma Asthma-COPD overlap syndrome Trigger finger of right hand Recurrent UTI Tachycardia Obesity Lumbar degenerative disc disease GERD (gastroesophageal reflux disease) Hemangioma Hypovitaminosis D Bipolar 1 disorder Depression with anxiety Insomnia Oxygen dependent COPD (chronic obstructive pulmonary disease) Hypothyroidism Surgical History Hx of hand surgery Hx of cardiac catheterization History of esophagogastroduodenoscopy (EGD) History of cystocele History of colonoscopy History of shoulder surgery History of carpal tunnel release History of hysterectomy History of section History of tonsillectomy Family History Father No problems noted. Mother No problems noted. Sister Nasopharyngeal cancer Social History Household Members: None Household Members Other:: 1 Housing: Apartment Do you presently have visiting nurse or other home services: Yes (Has MACHINE PRINTER HOSE) Alcohol intake: never Patient Tobacco Use Status: Former Tobacco user Years Smoked: 14 +/- e-Cigarette/Vaping Use: Never Used Second Hand Smoke Exposure: No Advance Directives Date on File: 01/08/21 service: No Current occupational status: disabled Current occupation: right and left handed--- HAS MACHINE PRINTER HOSE SERVICES Cognitive needs: Yes Hearing needs: No Vision needs: Yes Female Reproductive History Menstrual Age of Menarche: 12 Review of Systems Const Denies weakness ENT Denies dizziness Card Denies chest pain, Denies chest pain with activity, Denies syncope, Denies rapid heart rate, Denies pedal edema, Denies edema, Denies leg edema, Denies lightheadedness, Denies palpitations, Denies dyspnea, Denies dyspnea on exertion and Denies orthopnea Resp Denies cough, Denies dyspnea and Denies dyspnea on exertion GI Denies hematochezia and Denies change in stool character Musc Denies abnormal gait, Denies muscle cramps, Denies muscle weakness, Denies numbness, Denies radiating pain into limb and Denies tingling Neuro Denies abnormal gait, Denies dizziness, Denies syncope, Denies numbness, Denies tingling and Denies weakness Endo Denies palpitations Physical Exam Vital Signs: Last Vital Signs Pulse 94 08/23/23 09:56 BP 84/64 L 08/23/23 09:56 BMI result Body Mass Index 41.5 GENERAL APPEARANCE: in no acute distress, pleasant. NECK: no carotid bruit, no jugular venous distention. SKIN: no suspicious lesions, warm and dry. HEART: no murmurs, regular rate and rhythm. LUNGS: clear to auscultation bilaterally. ABDOMEN: soft, nontender. EXTREMITIES: no edema. PERIPHERAL PULSES: equal. NEUROLOGIC: No gross deficits, AAO X 3 Assessment & Plan Assessment & Plan (1) Low blood pressure: Code(s): I95.9 - Hypotension, unspecified Qualifiers: Hypotension type: orthostatic hypotension Qualified Code(s): I95.1 - Orthostatic hypotension Plan 63-year-old female who is here for follow-up. She does not have any significant LV dysfunction or coronary artery disease based on previous testing. Once again she is complaining of low blood pressure readings at home. She feels tired and sleepy when this happens. She also takes clonazepam and topiramate which can cause both these symptoms. I have advised her to increase her salt intake and sprinkle some salt on her food. I have also advised her to drink some Gatorade/power rate or Pedialyte. She will try this for 1 month and then report to us with blood pressure readings. If she continues to have low blood pressures then I think she should get further workup including workup for adrenal insufficiency. This can be done by primary care physician or by referred to endocrinology. We will see her back in few months. Thank you for allowing me to participate in the care of your patient. Please feel free to contact me if you have any questions. Medications: Changed From amitriptyline 100 mg PO BEDTIME 90 days 90 tabs 1RF To amitriptyline 100 mg PO BEDTIME From levothyroxine 50 mcg PO DAILY@0630 90 tabs 0RF To levothyroxine 50 mcg PO DAILY@0630 From bupropion HCl 300 mg PO DAILY 90 days 90 tabs 1RF E03.9 - Hypothyroidism, unspecified To bupropion HCl 300 mg PO DAILY E03.9 - Hypothyroidism, unspecified From aswmocidxc-zobzhkfspeyjz-umqw 50-300-40 mg (Fioricet) 1 cap PO Q8H PRN 24 caps 0RF pain G43.909 - Migraine, unspecified, not intractable, without status migrainosus To nusrbliyni-ktsqtlvymykng-gogo 50-300-40 mg (Fioricet) 1 cap PO Q8H PRN pain G43.909 - Migraine, unspecified, not intractable, without status migrainosus From diphenhydramine HCl (Banophen) 25 mg PO BEDTIME PRN 30 caps 0RF sleep To diphenhydramine HCl (Banophen) 25 mg PO BEDTIME PRN sleep Coding Level of Care Code Est Pt Level 4 (84565) Diagnoses Orthostatic hypotension I95.1 Hypotension type: orthostatic hypotension
== END 2023-08-23 10:31 | disposition home or self-care (01) ==
PROVIDERS: PCP Internal Medicine; Visit Provider Internal Medicine Cardiovascular Disease
DX: I95.1 Orthostatic hypotension (principal)
CPT/HCPCS: 99214

== ENCOUNTER → 2023-08-23 09:52 | Outpatient (BNVA) | payer OTHER, SELFPAY | PROVIDERS: PCP Internal Medicine; Visit Provider Internal Medicine Cardiovascular Disease | DX: I95.1 Orthostatic hypotension (principal) | CPT/HCPCS: 99212 ==

== ENCOUNTER 2023-10-04 12:53 | Outpatient (REF) | payer OTHER, SELFPAY | END 2023-10-04 12:54 | disposition home or self-care (01) | LOC: HO.MDS 12:53 | PROVIDERS: Visit Provider Hospitalist | DX: J45.50 Severe persistent asthma, uncomplicated (principal) | CPT/HCPCS: 96372 ==

== ENCOUNTER 2023-10-05 09:46 | Outpatient (AMB) | payer OTHER, SELFPAY ==
[2023-10-05 09:56] VITALS: BP 102/80; PULSE 93; O2SAT 97; BMI 41.2
--- NOTE | 2023-10-05 09:56 | A.OFFPC_ITS ---
Vital Signs 10/05/23 09:56 Height 5 ft 1 in Weight 218 lb BMI 41.2 BP 102/80 Blood Pressure Location Lt brachial Position Sitting Pulse 93 Pulse Source Pulse Oximeter Pulse Oximetry (%) 97 Oxygen Delivery Method Room Air Intake Visit Reasons: DM follow up Maintenance Pipefitter Required: No Maintenance Pipefitter Name: Sruthi Nagel Information Interpreted: clinical only Still Pump Operator: Present Accompanied by: DIRECTOR OF MARKET INTELLIGENCE Allergies No Known Allergies Allergy (Verified 10/05/23 09:56) Tobacco use date assessed: 08/09/23 Fall risk assessment: No Falls in past year Last assessed Fall Risk: 10/05/23 Dental Screening Dental Screen Date: 10/05/23 Did you have a dental visit in the last 12 months?: Yes Did you have a dental problem in the last 6 months where you did not have access to dental care?: No Was dental information given to patient?: Patient has dentist HPI HPI Comments History of Present Illness Details 63-year-old female past medical history significant for hypothyroidism, GERD, lumbar degenerative disc disease, asthma-COPD overlap, depression, ROB on CPAP, bipolar, CAD, cardiomyopathy. Patient presents today with DIRECTOR OF MARKET INTELLIGENCE who aids in interpretation. Patient uses CPAP for greater than 4 hours a night with good effect. Uses oxygen as needed. Continues to follow with pulmonology. Patient requesting handicap placard form be completed for history of bilateral knee osteoarthritis patient currently ambulates with a walker. Handicap placard for completed office, given to Steph OVALLE, to be copied and sent out. Patient reports ongoing dry eyes states she has spoken to manager game regarding this and they have agreed with current eyedrops patient is on. Refill sent on her eyedrops. Patient reports in July she developed red whole face rash extending down to her chest in July while she was in [place]. Patient denies sunburn. Requesting to see music store manager, red rash on face completely resolved. Patient does have lingering hyper pigmented spot to right upper chest for which she reports is very itchy. Send steroid cream to pharmacy and refer patient to Dermatology for further evaluation. Of note patient reports that she was diagnosed with lupus years ago in [place] however when she saw a evaporative cooler installer [place] the [place] she was told she does not have lupus. [facility] Medical History Hypersomnia Snoring ILD (interstitial lung disease) ROB on CPAP History of ESBL E. coli infection Obstructive sleep apnea Morbid obesity with BMI of 40.0-44.9, adult Moderate recurrent major depression Urinary retention Acute and chronic respiratory failure with hypoxia COVID-19 Lupus (systemic lupus erythematosus) Polyarthralgia Neck mass Eosinophilia Severe asthma Asthma-COPD overlap syndrome Trigger finger of right hand Recurrent UTI Tachycardia Obesity Lumbar degenerative disc disease GERD (gastroesophageal reflux disease) Hemangioma Hypovitaminosis D Bipolar 1 disorder Depression with anxiety Insomnia Oxygen dependent COPD (chronic obstructive pulmonary disease) Hypothyroidism Surgical History Hx of hand surgery Hx of cardiac catheterization History of esophagogastroduodenoscopy (EGD) History of cystocele History of colonoscopy History of shoulder surgery History of carpal tunnel release History of hysterectomy History of section History of tonsillectomy Family History Father No problems noted. Mother No problems noted. Sister Nasopharyngeal cancer Social History Household Members: None Household Members Other:: 1 Housing: Apartment Do you presently have visiting nurse or other home services: Yes (Has DIRECTOR OF MARKET INTELLIGENCE) Alcohol intake: never Comment: sleeping Patient Tobacco Use Status: Former Tobacco user Years Smoked: 14 +/- e-Cigarette/Vaping Use: Never Used Second Hand Smoke Exposure: No Advance Directives Date on File: 01/08/21 service: No Current occupational status: disabled Current occupation: right and left handed--- HAS DIRECTOR OF MARKET INTELLIGENCE SERVICES Cognitive needs: Yes Hearing needs: No Vision needs: Yes Female Reproductive History Menstrual Age of Menarche: 12 Questionnaire Thrive Questionnaire Date Thrive assessed: 12/13/22 DAO-7 AMB Questionnaire DAO-7 Date DAO - 7 assessed: 12/13/22 Source: Developed by Drs. Power Thornton, Melissa Peñaloza, Master Grijalva and colleagues, with an educational sudhir from [employer]. Review of Systems Const Denies chills, Denies fatigue, Denies fever(s) and Denies poor appetite Eyes Denies no additional complaints ENT Reports Normal hearing present Card Denies chest pain, Denies syncope, Denies rapid heart rate and Denies dyspnea Resp Denies cough and Denies dyspnea GI Denies change in stool character, Denies constipation, Denies diarrhea, Denies nausea and Denies vomiting Denies urinary frequency, Denies dysuria and Denies urinary urgency Skin/Breast Reports rash (chest rash ) Neuro Reports Normal hearing present, Denies confusion and Denies syncope Psych Denies confusion Endo Denies fatigue Physical exam (Primary Care) Vital Signs: Last Vital Signs Pulse 93 10/05/23 09:56 BP 102/80 10/05/23 09:56 Pulse Ox 97 10/05/23 09:56 Oxygen Delivery Method Room Air 10/05/23 09:56 BMI result Body Mass Index 41.2 Tobacco/Smoking Status: Tobacco use Status Tobacco use date assessed 08/09/23 10/05/23 10:04 Patient Tobacco Use Status Former Tobacco user 10/05/23 10:04 Tobacco use type 07/15/23 11:19 e-Cigarette/Vaping Use Never Used 10/05/23 10:04 Thrive Assessment: Date of Thrive Assessment Date Thrive assessed 12/13/22 10/05/23 10:04 Const General: No confusion Orientation/consciousness: No confusion HENMT Head: Yes normocephalic and Yes atraumatic Eyes Conjunctivae: conjunctivae normal Chest Chest palpation & inspection: normal inspection of the chest Resp Effort & Inspection: normal respiratory effort Auscultation: clear to auscultation bilaterally, no crackles, no rhonchi and no wheezes Cardio Rate: regular rate Rhythm: regular rhythm Heart sounds: S1 normal heart sound present and S2 normal heart sound present GI Inspection: Yes normal to inspection Neuro General: No confusion Cranial nerves: Yes Normal hearing present Extrem General: No edema Assessment and Plan Assessment & Plan (1) Dermatitis: Code(s): L30.9 - Dermatitis, unspecified Plan: Triamcinolone cream sent to patient's pharmacy. Referral entered to dermatology. (2) Hypothyroidism: Code(s): E03.9 - Hypothyroidism, unspecified Qualifiers: Hypothyroidism type: unspecified Qualified Code(s): E03.9 - Hypothyroidism, unspecified Plan: Continue on levothyroxine 50 mcg daily. TSH and free T4 level ordered to be completed prior to patient's physical exam. (3) ROB on CPAP: Code(s): G47.33 - Obstructive sleep apnea (adult) (pediatric); Z99.89 - Dependence on other enabling machines and devices Plan: Continue on CPAP for greater than 4 hours a night and benefits from this. (4) Osteoarthritis of knees, bilateral: Comment: R>L Code(s): M17.0 - Bilateral primary osteoarthritis of knee Plan: Handicap placard form completed for patient. Patient reports she will need knee surgery for this however she has learned 40 lb prior to having surgery completed. Plan Keep scheduled physical exam in November with PCP or follow-up sooner if needed. Orders: Orders Complete Blood Count Auto Diff Today Z13.0 - Encounter for screening for diseases of the blood and blood-forming organs and certain disorders involving the immune mechanism Comprehensive [place]. Panel Fast Today E78.5 - Hyperlipidemia, unspecified TSH reflex Free T4 Today Z13.29 - Encounter for screening for other suspected endocrine disorder Lipid Panel Today Z13.220 - Encounter for screening for lipoid disorders Medications: New diphenhydramine HCl (Banophen) 25 mg PO BEDTIME PRN 30 caps 0RF sleep triamcinolone acetonide 0.025% 1 appl topical DAILY 15 grams 0RF L30.9 - De rmatitis, unspecified Refilled carboxymethylcellulose sodium 0.5% 1 drp ophthalmic (eye) BID 30 days PRN 30 ea 2RF dry eye(s) cromolyn 4% 1 drp ophthalmic (eye) QID PRN 10 mL 0RF itching R68.89 - Other general symptoms and signs Coding Level of Care Code Est Pt Level 4 (80394) Diagnoses Dermatitis L30.9 Hypothyroidism, unspecified type E03.9 Hypothyroidism type: unspecified ROB on CPAP G47.33; Z99.89 Osteoarthritis of knees, bilateral M17.0
== END 2023-10-05 10:34 | disposition home or self-care (01) ==
PROVIDERS: PCP Internal Medicine; Visit Provider Nurse Practitioner Family
DX: L30.9 Dermatitis, unspecified (principal); E03.9 Hypothyroidism, unspecified; G47.33 Obstructive sleep apnea (adult) (pediatric); Z99.89 Dependence on other enabling machines and devices; M17.0 Bilateral primary osteoarthritis of knee
CPT/HCPCS: 99214

== ENCOUNTER 2023-10-13 12:17 | Outpatient (AMB) | payer OTHER, SELFPAY ==
--- NOTE | 2023-10-13 12:23 | A.OFFVIS_ITS ---
Intake Vital Signs 10/13/23 12:28 Height 5 ft 1 in Weight 218 lb BMI 41.2 BP 96/70 Blood Pressure Location Lt brachial Position Sitting Pulse 114 H Intake Visit Reasons: F/U GES Intake Note: Patient follow up for GES results. Patient cc: Constipation, acid reflex and gassy. Deniesa adela other GI issues. District Supervisor Required: No Accompanied by: Daughter Allergies No Known Allergies Allergy (Verified 10/13/23 12:22) HPI F/U GES HPI Details 63 yr old f here for f/u RECAP: index visit 06/2019 ? she had been having rectal bleeding for years, ? feels it is getting worse for last few months ? dripping bed, sometimes noted on bed as well ? bloating with worsening reflux sx recently, but no dysphagia, bad taste in mouth, feels like blood in mouth ? she also gets pressure in rectum ? she feels she has to oush hard for stool sometimes ? 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 she was commenced on linaclotide which she said was working well at follow up, it was increased to 290 mcg I did order a GES 01/04/21 due to ongoing sx which came back pos with 40% retention at 4 hrs EGD 11/2022 balloon dilation fluconazole given due to greg TESTS: ? colonoscopy- 5 yrs in [place] , incomplete due to prep ? virtual colonoscopy- 3 months ago had in [place] ? cbc- and bmp 05/2019--normal ? 05/2019- stool thruout colon, otherwise no acute concerns. ? EGD/ colon 08/2019: poor colon prep, gastritis, melanosis coli ? TSH normal 08/2019 ? rept COLON 10/2019- 2 polyps removed, flat and seesile lesions, -rept 1 yr recommended, flat was hyperplastic and other was adenoma ? ? I did a repeat EGD 03/2023 savary dilation with bougie 17 mm ? INTERIM: she still has choking at night but much less than before after the dilation she has not had her sleep study, she is waiting for appointment constipation controlled with amitiza she is taking nexium and works well, I stopped pantoprazole last time admits not compliant with gastroparesis diet EXAM: GENERAL: The patient is obese VITAL SIGNS:see workflow HEENT: Nonicteric sclerae, PERRLA, EOMI. Oropharynx clear. Moist mucous membranes. Conjunctivae appear well perfused. No thyroid mass. CHEST: Chest wall is nontender. HEART: Regular rate and rhythm without murmurs. LUNGS: Clear to auscultation bilaterally. ABDOMEN: Soft, positive bowel sounds, nontender, no organomegaly.no flank ten derness SKIN: No rash, no excessive bruising, petechiae, or purpura. NEUROLOGIC: Cranial nerves II-XII intact without motor/sensory deficit. ? Assessments ? 1. Constipation by delayed colonic trans it--controlled ?2. nausea, upper abdominal pain 2/2 gastroparesis, dysphagia, soem relief with dilation PLAN: 1/ cont nexium and stop pantoprazole 2/ repeat EGD with savary dilation 18 mm and plyoric dilation 3/ cont on amitiza, ? 4/ gastroparesis diet leaflet 5/ overdue on colo for hx of right sided large polyp--suprep PFSH Medical History Hypersomnia Snoring ILD (interstitial lung disease) ROB on CPAP History of ESBL E. coli infection Obstructive sleep apnea Morbid obesity with BMI of 40.0-44.9, adult Moderate recurrent major depression Urinary retention Acute and chronic respiratory failure with hypoxia COVID-19 Lupus (systemic lupus erythematosus) Polyarthralgia Neck mass Eosinophilia Severe asthma Asthma-COPD overlap syndrome Trigger finger of right hand Recurrent UTI Tachycardia Obesity Lumbar degenerative disc disease GERD (gastroesophageal reflux disease) Hemangioma Hypovitaminosis D Bipolar 1 disorder Depression with anxiety Insomnia Oxygen dependent COPD (chronic obstructive pulmonary disease) Hypothyroidism Surgical History Hx of hand surgery Hx of cardiac catheterization History of esophagogastroduodenoscopy (EGD) History of cystocele History of colonoscopy History of shoulder surgery History of carpal tunnel release History of hysterectomy History of section History of tonsillectomy Family History Father No problems noted. Mother No problems noted. Sister Nasopharyngeal cancer Social History Household Members: None Household Members Other:: 1 Housing: Apartment Do you presently have visiting nurse or other home services: Yes (Has [employer] OR LUNCHROOM CHECKER) Alcohol intake: never Comment: sleeping Patient Tobacco Use Status: Former Tobacco user Years Smoked: 14 +/- e-Cigarette/Vaping Use: Never Used Second Hand Smoke Exposure: No Advance Directives Date on File: 01/08/21 service: No Current occupational status: disabled Current occupation: right and left handed--- HAS [employer] LUNCHROOM CHECKER SERVICES Cognitive needs: Yes Hearing needs: No Vision needs: Yes Female Reproductive History Menstrual Age of Menarche: 12 Physical Exam Vital Signs: Last Vital Signs Pulse 114 H 10/13/23 12:28 BP 96/70 10/13/23 12:28 BMI result Body Mass Index 41.2 Assessment & Plan Assessment & Plan (1) Epigastric abdominal pain: Code(s): R10.13 - Epigastric pain Plan: 1. Constipation by delayed colonic transit--controlled ?2. nausea, upper abdominal pain 2/2 gastroparesis, dysphagia, soem relief with dilation PLAN: 1/ cont nexium and stop pantoprazole 2/ repeat EGD with savary dilation 18 mm and plyoric dilation 3/ cont on amitiza, ? 4/ gastroparesis diet leaflet (2) GERD (gastroesophageal reflux disease): Code(s): K21.9 - Gastro-esophageal reflux disease without esophagitis Plan: 1. Constipation by delayed colonic transit--controlled ?2. nausea, upper abdominal pain 2/2 gastroparesis, dysphagia, soem relief with dilation PLAN: 1/ cont nexium and stop pantoprazole 2/ repeat EGD with savary dilation 18 mm and plyoric dilation 3/ cont on amitiza, ? 4/ gastroparesis diet leaflet Medications: New sodium,potassium,mag sulfates 17.5-3.13-1.6 gram (Suprep Bowel Prep Kit) DILUTE; drink 1/2 at 6-8 pm and half at 11 PM- 1AM 354 mL 0RF Coding Level of Care Code Est Pt Level 3 (24655) Diagnoses Epigastric abdominal pain R10.13 GERD (gastroesophageal reflux disease) K21.9
[2023-10-13 12:28] VITALS: BP 96/70; PULSE 114; BMI 41.2
== END 2023-10-13 13:04 | disposition home or self-care (01) ==
PROVIDERS: Visit Provider Internal Medicine Gastroenterology
DX: R10.13 Epigastric pain (principal); K21.9 Gastro-esophageal reflux disease without esophagitis
CPT/HCPCS: 99213

== ENCOUNTER → 2023-10-13 12:17 | Outpatient (BNVA) | payer OTHER, SELFPAY | PROVIDERS: Visit Provider Internal Medicine Gastroenterology | DX: K21.9 Gastro-esophageal reflux disease without esophagitis (principal); R10.13 Epigastric pain | CPT/HCPCS: 99212 ==

== ENCOUNTER 2023-10-23 18:22 | Emergency (ER) | payer OTHER, SELFPAY ==
--- NOTE | ~2023-10-23 | XR_ITS ---
EXAMINATION: XR CHEST CLINICAL INFORMATION: SOB. COMPARISON: None available. TECHNIQUE: Frontal view of the chest was obtained. FINDINGS: No significant abnormality is noted involving the heart, lungs, mediastinum, bony thorax or soft tissues. XR/XR chest 1V IMPRESSION: Unremarkable chest examination.
[2023-10-23 18:31] VITALS: BP 106/76; BP 108/72; PULSE 92; PULSE 98; RESP 18; TEMP 37.1; O2SAT 98; O2SAT 99; BMI 43.6
--- NOTE | 2023-10-23 19:00 | ECG_ITS ---
Test Reason : DSYPNEA Blood Pressure : / mmHG Vent. Rate : 092 BPM Atrial Rate : 092 BPM P-R Int : 178 ms QRS Dur : 088 ms QT Int : 362 ms P-R-T Axes : 022 004 020 degrees QTc Int : 447 ms Normal sinus rhythm Normal ECG When compared with ECG of 24-MAR-2023 16:54, No significant change was found Referred By: Zuleika Rausch Electronically Signed By:MONIK JUAREZ
--- NOTE | 2023-10-23 19:19 | ED_ITS ---
HPI - SOB/Dyspnea General Chief Complaint: Dyspnea Stated Complaint: SOB, persistent cough Time Seen by Provider: 10/23/23 18:51 Source: patient, EMS and clerical office Mode of arrival: ambulatory Limitations: no limitations History of Present Illness HPI Narrative: 63-year-old female with known history of asthma using supplemental oxygen of 2 L if needed for shortness of breath at home, came in today for persistent coughing and difficulty breathing since yesterday, no fever, no chills, no sick contacts, no recent travel, patient was using albuterol at home with no relief of her symptoms. No lower extremities swelling or edema, no recent travel. Related Data Home Medications Medication Instructions Recorded Confirmed oxygen-air delivery systems ##1 08/24/20 08/23/23 topiramate 100 mg tablet 100 mg PO BID 07/13/22 08/23/23 benralizumab 30 mg/mL subcutaneous 30 mg subcut QWEEK 12/21/22 08/23/23 syringe (Fasenra) lidocaine HCl 2 % mucosal solution ml PO 04/24/23 08/23/23 (Lidocaine Viscous) estradiol 0.01% (0.1 mg/gram) 1 g vaginal 3XW 04/26/23 08/23/23 vaginal cream amitriptyline 100 mg tablet 100 mg PO BEDTIME 08/23/23 08/23/23 bupropion HCl 300 mg 24 hr tablet, 300 mg PO DAILY 08/23/23 08/23/23 extended release [id number] 1 cap PO Q8H PRN pain 08/23/23 08/23/23 50 mg-300 mg-40 mg capsule (Fioricet) levothyroxine 50 mcg tablet 50 mcg PO DAILY@0630 08/23/23 08/23/23 Previous Rx's Medication Instructions Recorded shower seat #1 ea 11/23/20 miscellaneous medical supply #1 ea 12/22/20 electric wheelchair #1 ea 04/30/22 lidocaine 5 % topical patch 1 patch topical DAILY PRN pain #15 07/09/22 ea clonazepam 1 mg tablet 1 mg PO DAILY PRN Anxiety 30 days 08/26/22 #30 tabs blood pressure kit-extra large #1 ea 08/29/22 loratadine 10 mg tablet 10 mg PO DAILY 30 days #30 tabs 09/26/22 zolpidem 10 mg tablet 10 mg PO BEDTIME PRN Insomnia 30 10/24/22 days #30 tabs wheeled table with drawers #1 ea 12/05/22 albuterol sulfate 2.5 mg/3 mL 2.5 mg (3 mL) inhalation Q6H PRN 12/23/22 (0.083 %) solution for nebulization shortness of breath or wheezing 30 days #180 mL simethicone 125 mg chewable tablet 125 mg PO QID PRN abdominal 12/28/22 distention #60 tabs adult diapers pull-ups #240 ea 02/13/23 disposable gloves (Biobrane Gloves #200 ea 02/13/23 Large) flushable wipes #240 ea 02/13/23 underpads (Bed Underpads) #100 ea 02/13/23 esomeprazole magnesium 40 mg 40 mg PO DAILY #90 caps 04/03/23 capsule,delayed release (Nexium) Magic Mouthwash 10 ml PO QID #240 mL 04/19/23 Diphen/Lido/Antacid 1:1:1 240 mL suspension albuterol sulfate 90 mcg/actuation 2 puff inhalation Q4H PRN Wheezing 04/24/23 aerosol inhaler #8.5 grams fluticasone fur. 200 mcg-umeclid 1 inh inhalation DAILY 30 days #60 04/24/23 62.5 mcg-vilant 25 mcg ea inhalat.powder (Trelegy Ellipta) trazodone 100 mg tablet 100 mg PO BEDTIME PRN sleep 90 05/08/23 days #90 tabs cetirizine 10 mg tablet 10 mg PO DAILY PRN allergy 05/09/23 symptoms 90 days #90 tabs cholecalciferol (vitamin D3) 25 25 mcg PO DAILY #30 caps 05/09/23 mcg (1,000 unit) capsule (Vitamin D3) gabapentin 300 mg capsule 300 mg PO BID 90 days #180 caps 05/09/23 nebulizers (AeroEclipse II #1 ea 05/15/23 Nebulizer) lubiprostone 24 mcg capsule 24 mcg PO BID #180 caps 07/04/23 benralizumab 30 mg/mL subcutaneous 30 mg subcut Q8W 8 weeks #1 mL 07/06/23 syringe (Demetris) lidocaine 5 % topical patch 1 patch topical DAILY #15 ea 07/15/23 sulfamethoxazole 800 1 tab PO BID #14 tabs 07/15/23 mg-trimethoprim 160 mg tablet rosuvastatin 10 mg tablet 10 mg PO Q OTHER DAY 90 days #45 08/21/23 tabs carboxymethylcellulose sodium 0.5 1 drp ophthalmic (eye) BID PRN dry 10/05/23 % eye drops in a dropperette eye(s) 30 days #30 ea cromolyn 4 % eye drops 1 drp ophthalmic (eye) QID PRN 10/05/23 itching #10 mL diphenhydramine HCl 25 mg capsule 25 mg PO BEDTIME PRN sleep #30 caps 10/05/23 (Banophen) triamcinolone acetonide 0.025 % 1 appl topical DAILY #15 grams 10/05/23 topical cream sodium,potassium,mag sulfates 17.5 See Rx Instructions PO .COMPLEX 10/13/23 gram-3.13 gram-1.6 gram oral soln #354 mL (Suprep Bowel Prep Kit) guaifenesin 200 mg/5 mL oral liquid 200 mg (5 mL) PO Q4H PRN cough 10/23/23 #473 mL prednisone 20 mg tablet 20 mg PO BID #10 tabs 10/23/23 Allergies Allergy/AdvReac Type Severity Reaction Status Date / Time No Known Allergies Allergy Verified 10/13/23 12:22 Review of Systems 2 Review of Systems: All other systems are reviewed and are negative Constitutional: Reports as per HPI and Reports no additional constitutional complaints Eyes: Reports as per HPI and Reports no additional eye complaints Reports system reviewed and no additional complaints, except as documented Cardiovascular: Reports as per HPI and Reports no additional cardiovascular complaints Respiratory: Reports as per HPI and Reports no additional respiratory complaints Gastrointestinal: Reports as per HPI and Reports no additional gastrointestinal complaints Genitourinary: Reports no additional female genitourinary complaints Musculoskeletal: Reports no additional musculoskeletal complaints Skin/Breast: Reports system reviewed and no additional complaints, except as docu Psychiatric: Reports no additional psychiatric complaints Endocrine: Reports no additional endocrine complaints Hematologic/Lymphatic: Reports no additional hematologic/lymphatic complaints Allergic/Immunologic: Reports no additional allergic/immunologic complaints Reports system reviewed and no additional complaints, except as documented and Reports Abnormal speech present PMFSH Past Medical History Medical History Hypersomnia Snoring ILD (interstitial lung disease) ROB on CPAP History of ESBL E. coli infection Obstructive sleep apnea Morbid obesity with BMI of 40.0-44.9, adult Moderate recurrent major depression Urinary retention Acute and chronic respiratory failure with hypoxia COVID-19 Lupus (systemic lupus erythematosus) Polyarthralgia Neck mass Eosinophilia Severe asthma Asthma-COPD overlap syndrome Trigger finger of right hand Recurrent UTI Tachycardia Obesity Lumbar degenerative disc disease GERD (gastroesophageal reflux disease) Hemangioma Hypovitaminosis D Bipolar 1 disorder Depression with anxiety Insomnia Oxygen dependent COPD (chronic obstructive pulmonary disease) Hypothyroidism Surgical History Hx of hand surgery Hx of cardiac catheterization History of esophagogastroduodenoscopy (EGD) History of cystocele History of colonoscopy History of shoulder surgery History of carpal tunnel release History of hysterectomy History of section History of tonsillectomy Family History Family History Father No problems noted. Mother No problems noted. 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[employer]) Alcohol intake: never Comment: sleeping Patient Tobacco Use Status: Former Tobacco user Years Smoked: 14 +/- Smoked in Last 30 Days: No e-Cigarette/Vaping Use: Never Used Second Hand Smoke Exposure: No Use of substances other than those prescribed or required for medical reasons: No Advance Directives: Yes Advance Directives on File: Yes Advance Directives Date on File: 01/08/21 service: No Current occupational status: disabled Current occupation: right and left handed--- 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 Blood pressure elevated. Heart rate normal. Respiratory rate normal. Temperature normal. Oxygen saturation normal. Appearance: Alert. Oriented X3. No acute distress. Head: Normal external exam. Normocephalic. Atraumatic. No Escobedo signs noted. No raccoon eyes noted Eyes: PERRLA. EOMI. Conjunctiva and sclera normal. Eyelids normal. ENT: TM's Normal. Pharynx normal. Uvula midline. Moist mucous membranes. No trismus noted. No drooling noted. No muffled voice noted. Neck: Normal inspection. Neck supple. FROM. No adenopathy. Thyroid Normal. No meningeal signs. No neck mass noted. CVS: Normal heart rate and rhythm. Heart sound normal. No murmurs noted. Pulses normal throughout. Respiratory: No respiratory distress. Painless inspiration. Mild diffuse expiratory wheezing with prolonged expiration, decreased air entry bilaterally, Chest nontender. No accessory muscle usage noted or decreased air movement noted. Abdomen: Soft and nontender. Bowel sounds normal in all 4 quadrants. No distention noted. No organomegaly noted. No visible injury noted. Back: No CVA tenderness. Full range of motion noted. Skin: Skin warm and dry. Normal skin color. Normal skin turgor. No rashes/lesions/lacerations noted. Extremities: No lower extremity edema. Extremities exhibit normal range of motion. Extremities nontender. Neuro: Oriented X 3. Cranial nerve exam: II-XII are grossly intact No motor deficit. No sensory deficit. Reflexes normal. Course Reevaluation(s) Reevaluation #1: 63-year-old female history of asthma came in for increase of difficulty breathing, patient is positive for RSV. Normal O2 sat in the emergency department x-ray is unremarkable, patient was instructed to use supplemental oxygen at home 24/ until symptoms resolved and to return to the ED if getting worse. Time: 21:32 Medications Administered Discontinued Medications Generic Name Dose Route Start Last Admin Trade Name Freq PRN Reason Stop Dose Admin Albuterol Sulfate 7.5 mg 10/23/23 18:59 10/23/23 19:30 Albuterol Sulfate (0.083%) 2.5 Mg/3 Ml Vial.Neb INHALE 10/23/23 19:00 7.5 mg ONCE ONE Administration Albuterol/Ipratropium 3 ml 10/23/23 18:59 10/23/23 19:30 Albuterol/Iprat 2.5/0.5mg 3 Ml Ampul.Neb INHALE 10/23/23 19:00 3 ml ONCE ONE Administration Magnesium Sulfate 2 gm in 50 mls @ 25 mls/hr 10/23/23 18:59 10/23/23 19:28 Magnesium Sulfate/H2o IV 10/23/23 20:58 25 mls/hr ONCE ONE Administration Methylprednisolone Sodium Succinate 125 mg 10/23/23 18:59 10/23/23 19:27 Methylprednisolone Sod Succ 125 Mg/2 Ml Vial IVPUSH 10/23/23 19:00 125 mg ONCE ONE Administration Medical Decision Making Differential Diagnosis Differential Diagnoses: The differential diagnosis associated with the presentation includes (pneumonia, pneumothorax, asthma exacerbation, viral bronchitis, pleural effusion, severe anemia, electrolyte abnormality.) Admission/Observation Consideration of admission/observation: Escalation of care including admission/observation considered Lab Data MDM Lab Attestation statement: I reviewed the patient's lab results. 10/23/23 19:21 10/23/23 19:21 Labs: Lab Results 10/23/23 Range/Units 19:21 WBC 4.6 L (4.8-10.8) X10*3/uL RBC 4.26 (4.20-5.50) X10*6/uL Hgb 12.8 (12.0-16.0) g/dl Hct 39.9 (37.0-47.0) % MCV 93.7 (80.0-98.0) fL MCH 30.0 (27.0-33.0) pg MCHC 32.1 (31.0-35.0) g/dl RDW 14.0 (11.0-16.0) % Plt Count 304 (160-400) X10*3/uL MPV 9.6 (9.4-12.3) fL Immature Gran % (Auto) 0.4 (0.0-0.4) % Neut % (Auto) 56.7 (45-73) % Lymph % (Auto) 33.5 (20-40) % [place] % (Auto) 9.2 (2-11) % Eos % (Auto) 0.0 (0-4) % Baso % (Auto) 0.2 (0-2) % Lymph # (Auto) 1.5 (1.2-4.9) X10*3/uL [place] # (Auto) 0.4 (0.1-1.2) X10*3/uL Eos # (Auto) 0.0 (0.0-0.4) X10*3/uL Baso # (Auto) 0.0 (0.0-0.2) X10*3/uL Abs Immat Gran (auto) 0.02 (0.00-0.03) X10*3/uL Absolute Neuts (auto) 2.6 (2.0-8.3) x10*3/uL Absolute Nucleated RBC 0.000 (0.0-0.012) X10*3/uL Nucleated RBC % (auto) 0.0 (0.0-0.2) /100WBC Sodium 145 (135-145) mmol/L Potassium 3.8 (3.3-5.1) mmol/L Chloride 112 H (96-108) mmol/L Carbon Dioxide 24 (22-29) mmol/L Anion Gap 13 (12-20) BUN 11 (9-16) mg/dL Creatinine 0.83 (0.5-1.4) mg/dL Estim Creat Clear Calc 75.2 Estimated GFR > 60 Random Glucose 86 (60-115) mg/dL Calcium 9.4 (8.4-10.2) mg/dL Magnesium 2.1 (1.6-2.6) mg/dL Total Bilirubin 0.2 (0.0-1.0) mg/dL Direct Bilirubin < 0.2 (0.0-0.5) mg/dL AST 20 (5-31) U/L ALT 12 (0-31) U/L Alkaline Phosphatase 86 (39-117) U/L Troponin I High Sens < 2.7 (<3.5-17.0) ng/L B-Natriuretic Peptide < 10 (<100) pg/mL Total Protein 7.0 (6.5-8.0) g/dL Albumin 3.9 (3.5-5.0) g/dL Lipase 12 (8-78) U/L Influenza Type A (PCR) NEGATIVE (Negative) Influenza Type B (PCR) NEGATIVE (Negative) RSV RNA Qual (PCR) POSITIVE A (Negative) SARS-CoV-2 RNA (RT-PCR) NEGATIVE (Negative) Independent Interpretation I performed an independent interpretation of an: Plain X-Ray (Chest: Unremarkable chest examination.) Radiology Impression Discussion of test interpretation with radiology: I have reviewed the radiologist's reading. Chronic Conditions Patient?s care impacted by: Other (Asthma) Discharge Plan Discharge Clinical Impression: Acute bronchitis due to respiratory syncytial virus (RSV) Patient Disposition: Home, Self-Care Instructions: Respiratory Syncytial Virus (ED) Additional Instructions: Wear your oxygen at 2 L continuously until symptoms resolved. Prescriptions: New prednisone 20 mg tablet 20 mg PO BID Qty: 10 0RF guaifenesin 200 mg/5 mL liquid 200 mg PO Q4H PRN (Reason: cough) Qty: 473 0RF No Action (DME) shower seat See Rx Instructions .Route .MEDSUPPLY Qty: 1 0RF Rx Instructions: As directed (DME) miscellaneous medical supply Misc See Rx Instructions .ROUTE .MEDSUPPLY Qty: 1 0RF Rx Instructions: OVERBED TABLE (DME) electric wheelchair See Rx Instructions .Route .MEDSUPPLY Qty: 1 0RF Rx Instructions: As directed clonazepam 1 mg tablet 1 mg PO DAILY PRN (Reason: Anxiety) 30 Days Qty: 30 0RF loratadine 10 mg tablet 10 mg PO DAILY 30 Days Qty: 30 11RF zolpidem 10 mg tablet 10 mg PO BEDTIME PRN (Reason: Insomnia) 30 Days Qty: 30 0RF (DME) wheeled table with drawers See Rx Instructions .Route .MEDSUPPLY Qty: 1 0RF Rx Instructions: As directed albuterol sulfate 2.5 mg /3 mL (0.083 %) solution for nebulization 2.5 mg inhalation Q6H PRN (Reason: shortness of breath or wheezing) 30 Days Qty: 180 11RF simethicone 125 mg tablet,chewable 125 mg PO QID PRN (Reason: abdominal distention) Qty: 60 0RF (DME) flushable wipes See Rx Instructions .Route .MEDSUPPLY Qty: 240 6RF Rx Instructions: As directed (DME) disposable gloves [Biobrane Gloves Large] Misc See Rx Instructions .Route Qty: 200 6RF Rx Instructions: As directed (DME) underpads [Bed Underpads] Pad See Rx Instructions .Route Qty: 100 6RF Rx Instructions: As directed (DME) adult diapers pull-ups 2Xlarge See Rx Instructions .Route .MEDSUPPLY Qty: 240 6RF Rx Instructions: As directed trazodone 100 mg tablet 100 mg PO BEDTIME PRN (Reason: sleep) 90 Days Qty: 90 0RF cetirizine 10 mg tablet 10 mg PO DAILY PRN (Reason: allergy symptoms) 90 Days Qty: 90 1RF cholecalciferol (vitamin D3) [Vitamin D3] 25 mcg (1,000 unit) capsule 25 mcg PO DAILY Qty: 30 1RF gabapentin 300 mg capsule 300 mg PO BID 90 Days Qty: 180 0RF (DME) nebulizers [AeroEclipse II Nebulizer] Misc See Rx Instructions .Route Qty: 1 0RF Rx Instructions: As directed lubiprostone 24 mcg capsule 24 mcg PO BID Qty: 180 3RF Fasenra 30 mg/mL syringe 30 mg subcut Q8W 56 Days Qty: 1 11RF rosuvastatin 10 mg tablet 10 mg PO Q OTHER DAY 90 Days Qty: 45 3RF lidocaine 5 % adhesive patch,medicated 1 patch topical DAILY PRN (Reason: pain) Qty: 15 0RF Rx Instructions: leave on most painful area for up to 12 hrs Magic Mouthwash Diphen/Lido/Antacid 1:1:1 240 mL suspension 10 ml PO QID Qty: 240 0RF Rx Instructions: Lidocaine Viscous 2 % 80mL; diphenhydramine 12.5 mg/5 mL 80mL; aluminum-mag hydrox-simeth [id number]/5mL 80mL (DME) oxygen-air delivery systems Device See Rx Instructions .ROUTE .MEDSUPPLY Qty: 1 Rx Instructions: As directed sulfamethoxazole-trimethoprim 800-160 mg tablet 1 tab PO BID Qty: 14 0RF lidocaine 5 % adhesive patch,medicated 1 patch topical DAILY Qty: 15 0RF Rx Instructions: leave on most painful area for up to 12 hrs carboxymethylcellulose sodium 0.5 % dropperette 1 drp ophthalmic (eye) BID PRN (Reason: dry eye(s)) 30 Days Qty: 30 2RF cromolyn 4 % drops 1 drp ophthalmic (eye) QID PRN (Reason: itching) Qty: 10 0RF diphenhydramine HCl [Banophen] 25 mg capsule 25 mg PO BEDTIME PRN (Reason: sleep) Qty: 30 0RF triamcinolone acetonide 0.025 % cream 1 appl topical DAILY Qty: 15 0RF topiramate 100 mg tablet 100 mg PO BID (DME) blood pressure kit-extra large Kit See Rx Instructions .Route Qty: 1 0RF Rx Instructions: As directed Fasenra 30 mg/mL syringe 30 mg subcut QWEEK esomeprazole magnesium [Nexium] 40 mg capsule,delayed release(DR/EC) 40 mg PO DAILY Qty: 90 2RF sodium,potassium,mag sulfates [Suprep Bowel Prep Kit] 17.5-3.13-1.6 gram recon soln See Rx Instructions PO .COMPLEX Qty: 354 0RF Rx Instructions: DILUTE; drink 1/2 at 6-8 pm and half at 11 PM- 1AM estradiol 0.01 % (0.1 mg/gram) cream 1 g vaginal 3XW amitriptyline 100 mg tablet 100 mg PO BEDTIME bupropion HCl 300 mg tablet extended release 24 hr 300 mg PO DAILY [id number] [Fioricet] 50-300-40 mg capsule 1 cap PO Q8H PRN (Reason: pain) levothyroxine 50 mcg tablet 50 mcg PO DAILY@0630 lidocaine HCl [Lidocaine Viscous] 2 % solution PO albuterol sulfate 90 mcg/actuation HFA aerosol inhaler 2 puff inhalation Q4H PRN (Reason: Wheezing) Qty: 8.5 11RF Trelegy Ellipta 200-62.5-25 mcg blister with device 1 inh inhalation DAILY 30 Days Qty: 60 12RF Referrals: Farideh Starr MD [Primary Care Provider] -
[2023-10-23 19:25] LABS: MANUAL DIFF FLAG NO
[2023-10-23 19:27] LABS: Basophils Percent Auto 0.2 % (0-2); Hematocrit 39.9 % (37.0-47.0); Hemoglobin 12.8 g/dl (12.0-16.0); Imm Gran Abs Auto 0.02 X10*3/uL (0.00-0.03); Imm Gran Pct Auto 0.4 % (0.0-0.4); Lymphocytes Absolute Auto 1.5 X10*3/uL (1.2-4.9); Lymphocytes Percent Auto 33.5 % (20-40); Mean Corpuscular HGB Conc 32.1 g/dl (31.0-35.0); Mean Corpuscular Volume 93.7 fL (80.0-98.0); Mean Platelet Volume 9.6 fL (9.4-12.3); Monocytes Absolute Auto 0.4 X10*3/uL (0.1-1.2); Monocytes Percent Auto 9.2 % (2-11); Neutrophils Absolute Auto 2.6 x10*3/uL (2.0-8.3); Neutrophils Percent Auto 56.7 % (45-73); Platelet Count 304 X10*3/uL (160-400); Red Blood Count 4.26 X10*6/uL (4.20-5.50); White Blood Count 4.6 X10*3/uL (4.8-10.8)
[2023-10-23] MEDS: methylPREDNISolone Sod Succ 125 MG/2 ML VIAL IVPUSH (19:27)
[2023-10-23] MEDS: Magnesium Sulfate/H2O 2 GM/50 ML PIGGYBACK IV (19:28)
[2023-10-23] MEDS: Albuterol Sulfate (0.083%) 2.5 MG/3 ML VIAL.NEB 7.5 MG INHALE (19:30)
[2023-10-23] MEDS: Albuterol/Iprat 2.5/0.5MG 3 ML AMPUL.NEB INHALE (19:30)
[2023-10-23 19:31] VITALS: PULSE 94; RESP 16; O2SAT 98
[2023-10-23 19:43] LABS: Alanine Aminotransferase 12 U/L (0-31); Albumin Level 3.9 g/dL (3.5-5.0); Alkaline Phosphatase 86 U/L (39-117); Anion Gap 13 (12-20); Aspartate Amino Transferase 20 U/L (5-31); Bilirubin Direct < 0.2 mg/dL (0.0-0.5); Bilirubin Total 0.2 mg/dL (0.0-1.0); Blood Urea Nitrogen 11 mg/dL (9-16); Calcium 9.4 mg/dL (8.4-10.2); Carbon Dioxide 24 mmol/L (22-29); Chloride 112 mmol/L (96-108); Creatinine Clr Calc Pharmacy 75.2; Estimated Glomerular Filt Rate > 60; Glucose Random 86 mg/dL (60-115); Lipase 12 U/L (8-78); Magnesium 2.1 mg/dL (1.6-2.6); Potassium 3.8 mmol/L (3.3-5.1); Sodium 145 mmol/L (135-145)
[2023-10-23 19:48] LABS: B Type Natriuretic Peptide < 10 pg/mL (<100)
[2023-10-23 19:51] LABS: Troponin-I High Sensitivity < 2.7 ng/L (<3.5-17.0)
[2023-10-23 20:05] LABS: Influenza A PCR NEGATIVE (Negative); Influenza B PCR NEGATIVE (Negative); Resp Syncy Virus RNA Qual PCR POSITIVE (Negative); SARS COV2 PCR INHOUSE NEGATIVE (Negative)
[2023-10-23 20:40] VITALS: BP 124/66; PULSE 99; RESP 18; TEMP 36.8; O2SAT 100
[2023-10-23 21:49] VITALS: O2SAT 96
== END 2023-10-23 22:07 | disposition home or self-care (01) ==
PROVIDERS: Emergency Provider Emergency Medicine; PCP Internal Medicine
DX: J20.5 Acute bronchitis due to respiratory syncytial virus (principal); J44.9 Chronic obstructive pulmonary disease, unspecified; Z20.822 Contact with and (suspected) exposure to COVID-19; Z20.828 Contact with and (suspected) exposure to other viral communicable diseases; Z99.81 Dependence on supplemental oxygen
CPT/HCPCS: 0241U; 36415; 71045; 80048; 80076; 83690; 83735; 83880; 84484; 85025; 93005; 94640; 96374; 96375; 99284; 99285; J2930; J3475

== ENCOUNTER → 2023-10-23 19:00 | Outpatient (BNV) | payer OTHER, SELFPAY | PROVIDERS: Emergency Provider Emergency Medicine; PCP Internal Medicine; Visit Provider Internal Medicine | DX: R06.00 Dyspnea, unspecified (principal) | CPT/HCPCS: 93010 ==

== ENCOUNTER 2023-10-24 13:08 | Outpatient (AMB) | payer OTHER, SELFPAY ==
--- NOTE | 2023-10-24 13:19 | MHC.OFFVIS ---
Intake Vital Signs 10/24/23 13:21 Height 5 ft 1 in Weight 221 lb BMI 41.8 Pulse 90 Pulse Source Pulse Oximeter Pulse Oximetry (%) 97 Oxygen Delivery Method Room Air Intake Visit Reasons: asthma [employer] Required: No Allergies No Known Allergies Allergy (Verified 10/24/23 13:23) HPI HPI Comments History of Present Illness Details The patient is a 63-year-old woman with a known history of Asthma COPD in addition to obstructive sleep apnea and respiratory failure oxygen, who recently moved to to the [facility] from [place]. Upon moving to [place], after few weeks she ended up with worsening respiratory status and she was admitted to [facility] with a COPD exacerbation and also possibility of pneumonia. She did undergo a CT scan of the chest demonstrating areas of atelectasis scarring also demonstrated hyperexpansion of the lungs. She has significant morbid obesity as well. The patient was treated and subsequently released. She has been using her rescue inhaler often. She typically uses Xopenex due to tachyarrhythmias. She responded well to Trelegy in the past. She also has a history of sleep apnea. However, since she moved to the [facility] he has not been able to use 1. She continues to have daytime drowsiness. Her Whiting score is elevated 12/24. The patient also has multiple complaints including significant rashes in the chin is the eyes. In the office we did take her for brief walking oximetry. She quickly desaturated to 87% heart rate increased to the 130s 40s-1 appears to be an SVT. The patient is pretty symptomatic a mario score 8/10. At 2 L the patient's oxygen improved to 97%. She will continue using oxygen with activity and also sleep. She still having issues with heart rate being elevated also is feeling tired and drowsy. We did review her sleep study demonstrating moderate sleep apnea. The patient does have significant issues with tachycardia and also hypoxia and sleep study. I did recommed she undergo a titration study at the hospital. In the meantime she can use the oxygen at home. Will set her up with an auto APAP at this time. Will also try to keep her on the oxygen and possible. When she situated with the CPAP will have to do an overnight oximetry to see if she is getting enough oxygenation. She continues use her respiratory therapy with good effect. She still waiting for echo. Currently on hold because of the circumstances. It appears that her white count is demonstrate significant eosinophilia suggesting eosinophilic induced asthma exacerbations and also the possibility of eosinophilic pneumonia. The patient at this point has been failing in aggressive respiratory regimen and she also has been on multiple courses of corticosteroid therapy. For this reason the patient will be a great candidate for L5 inhibitors,Fasenra in noted to improve her asthma control and also decrease the prednisone use. She continues use the oxygen with good effect. 12/21/2022 the patient is here for a pulmonary follow-up visit. The patient has been feeling a little bit better. She did require prednisone antibiotics recently. We did call it to the pharmacy. She has been noticing improvement in her shortness of breath. We did taken for 6 minute walk testing the patient does not qualify for oxygen any longer. However, she needs to be able to use her CPAP. She has not been getting supplies from [employer]. Because of the CCA issue that was switch the company. I did provide him with a mask today P 10 in order for her to continue using her CPAP while she has discontinued her oxygen. The patient also has been using the Fasenra injections. These have been affecting beneficial. Will plan to have her follow-up in 6-8 weeks with PFTs and chest x-ray. In the meantime I will send her an antibiotic to treat her bronchitis. 04/24/2023 the patient is here for a pulmonary follow-up visit. The patient not feeling well. She feels very dizzy lightheaded and weak. The patient did go to the ER because of low blood pressure sometime week ago or 2. During that visit the patient had blood work and also was given IV fluids. She does not take any blood pressure medications. Now she is scheduled to see Cardiology sometime in April. She the patient has been using her respiratory medications with good effect and she is also using the biologic injection with good effect. Asthma appears to be stable. In regards of his her sleep apnea. She is scheduled to get her new machine in the coming weeks. In addition to that she is going to get the nasal mask that she has been waiting for. If any issues with the mask she can always call for to see if we can assist her. In the meantime the patient's major issue is hypertension. Therefore we did check her blood pressure sitting down with systolic 100/60 and then when she stood up the systolic blood pressure 1 below 90. The patient was feeling dizzy. She is there with family and they are taking care of her. Will go ahead and request blood work and also chest x-ray that she can have at her own time. I also cor Cardiology to see if we can move up her appointment based on her symptomatic hypotension. The patient is aware that if she continues to get worse she may need to go back to the ER. Based on her symptoms we will hold off on 6MWT. 10/24/2023 the patient is here for sick visit. Apparently she started developing worsening chest tightness wheezing cough. She could not tolerate the symptoms any longer and she was brought to the ER. She tested positive for RSV just yesterday. The patient was given Solu-Medrol and then discharged on prednisone. Her cough is congested. Moderate severity with yellow sputum. Positive sick contacts in the family. She has been using her respiratory therapy with good effect initially but now does not seem to be helping as much. She does have a nebulizer available. I did look at her x-ray did not demonstrate any acute disease which is reassuring. Will go ahead and have her start prednisone although she only got prednisone for 5 days so I will give her a prescription on paper that therefore she can continue. She will also start a course of doxycycline to treat her for postviral bacterial infections. She will monitor closely her asthma symptoms. She also has oxygen at home. If she notices that her oxygen levels are dropping even further then she may need to go back to the ER. [facility] Medical History Hypersomnia Snoring ILD (interstitial lung disease) ROB on CPAP History of ESBL E. coli infection Obstructive sleep apnea Morbid obesity with BMI of 40.0-44.9, adult Moderate recurrent major depression Urinary retention Acute and chronic respiratory failure with hypoxia COVID-19 Lupus (systemic lupus erythematosus) Polyarthralgia Neck mass Eosinophilia Severe asthma Asthma-COPD overlap syndrome Trigger finger of right hand Recurrent UTI Tachycardia Obesity Lumbar degenerative disc disease GERD (gastroesophageal reflux disease) Hemangioma Hypovitaminosis D Bipolar 1 disorder Depression with anxiety Insomnia Oxygen dependent COPD (chronic obstructive pulmonary disease) Hypothyroidism Surgical History Hx of hand surgery Hx of cardiac catheterization History of esophagogastroduodenoscopy (EGD) History of cystocele History of colonoscopy History of shoulder surgery History of carpal tunnel release History of hysterectomy History of section History of tonsillectomy Family History Father No problems noted. Mother No problems noted. 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 Cognitive needs: Yes Hearing needs: No Vision needs: Yes Female Reproductive History Menstrual Age of Menarche: 12 Review of Systems Const Reports body aches, Reports fatigue, Reports lethargy and Reports malaise Eyes Reports no additional complaints, Denies change in vision, Reports itchy eyes and Denies other visual disturbances ENT Reports dysphagia and Reports dizziness Card Denies chest pain at rest, Denies chest pain with activity, Denies edema, Denies irregular heart rhythm, Denies claudication, Denies dyspnea, Reports dyspnea on exertion, Denies orthopnea, Denies paroxysmal nocturnal dyspnea and Denies slow heart rate Resp Reports change in phlegm color, Reports chest congestion, Reports cough, Denies dyspnea, Reports dyspnea on exertion and Reports wheezing GI Denies abdominal pain, Reports dysphagia, Denies excessive flatus, Reports dyspepsia, Reports heartburn, Denies nausea and Denies vomiting Denies urinary incontinence, Denies urinary hesitancy and Denies urinary urgency Musc Reports abnormal gait, Denies atrophy, Denies deformity, Reports arthralgias and Denies limited range of motion Neuro Reports abnormal gait, Denies confusion and Reports dizziness Psych Denies confusion Endo Reports fatigue Aller/Immun Reports itchy eyes and Reports wheezing Physical Exam Vital Signs: Last Vital Signs Pulse 90 10/24/23 13:21 Pulse Ox 97 10/24/23 13:21 Oxygen Delivery Method Room Air 10/24/23 13:21 BMI result Body Mass Index 41.8 Const General: No confusion Orientation/consciousness: No confusion HEENT General nose exam: Abnormal external nose present and Nasal discharge present Chest Chest palpation & inspection: normal inspection of the chest Resp Effort & Inspection: Actively coughing Quality: productive Auscultation: no rales, wheezes and diminished lung sounds Cardio Rate: regular rate Rhythm: regular rhythm Heart sounds: S1 normal heart sound present and S2 normal heart sound present GI Palpation (GI): Soft to palpation and nontender Auscultation: normal bowel sounds Skin General skin exam: rashes and/or lesions noted Neuro General: No confusion Assessment & Plan Assessment & Plan (1) Severe asthma: Comment: Eosinophilic asthma Code(s): J45.909 - Unspecified asthma, uncomplicated Qualifiers: Asthma complication type: with acute exacerbation Asthma persistence: persistent Qualified Code(s): J45.51 - Severe persistent asthma with (acute) exacerbation (2) RSV (acute bronchiolitis due to respiratory syncytial virus): Code(s): J21.0 - Acute bronchiolitis due to respiratory syncytial virus (3) Oxygen dependent: Comment: pulmonology note 12/21/22 states no longer qualifies for supplemental O2 Code(s): Z99.81 - Dependence on supplemental oxygen (4) GERD (gastroesophageal reflux disease): Code(s): K21.9 - Gastro-esophageal reflux disease without esophagitis Qualifiers: Esophagitis presence: without esophagitis Qualified Code(s): K21.9 - Gastro-esophageal reflux disease without esophagitis (5) ROB on CPAP: Code(s): G47.33 - Obstructive sleep apnea (adult) (pediatric); Z99.89 - Dependence on other enabling machines and devices (6) ILD (interstitial lung disease): Code(s): J84.9 - Interstitial pulmonary disease, unspecified (7) Low blood pressure: Code(s): I95.9 - Hypotension, unspecified Qualifiers: Hypotension type: orthostatic hypotension Qualified Code(s): I95.1 - Orthostatic hypotension Plan Start Doxycycline Predniaone taper continue Trelegy 200 1 inhalation daily FERMIN as needed continue APAP. provided p10 mask. Should bring it the CPAP to the next visit. continue Fasenra F/U 3-4 months Medications: New doxycycline hyclate 100 mg PO BID 10 days 20 caps 0RF prednisone PO daily; Take 2 tabs by mouth x 5 days, then 1 tab daily x5 10 days 15 tabs 0RF Coding Level of Care Code Est Pt Level 4 (90729) Diagnoses Severe persistent asthma with acute exacerbation J45.51 Asthma complication type: with acute exacerbation Asthma persistence: persistent RSV (acute bronchiolitis due to respiratory syncytial virus) J21.0 Oxygen dependent Z99.81 Gastroesophageal reflux disease without esophagitis K21.9 Esophagitis presence: without esophagitis ROB on CPAP G47.33; Z99.89 ILD (interstitial lung disease) J84.9 Orthostatic hypotension I95.1 Hypotension type: orthostatic hypotension Time Spent (min) 16
[2023-10-24 13:21] VITALS: PULSE 90; O2SAT 97; BMI 41.8
== END 2023-10-24 13:53 | disposition home or self-care (01) ==
PROVIDERS: PCP Internal Medicine; Visit Provider Hospitalist
DX: J45.51 Severe persistent asthma with (acute) exacerbation (principal); J21.0 Acute bronchiolitis due to respiratory syncytial virus; Z99.81 Dependence on supplemental oxygen; K21.9 Gastro-esophageal reflux disease without esophagitis; G47.33 Obstructive sleep apnea (adult) (pediatric); Z99.89 Dependence on other enabling machines and devices; J84.9 Interstitial pulmonary disease, unspecified; I95.1 Orthostatic hypotension
CPT/HCPCS: 99214

== ENCOUNTER → 2023-10-24 13:08 | Outpatient (BNVA) | payer OTHER, SELFPAY | PROVIDERS: PCP Internal Medicine; Visit Provider Hospitalist | DX: J45.51 Severe persistent asthma with (acute) exacerbation (principal); J21.0 Acute bronchiolitis due to respiratory syncytial virus; J84.9 Interstitial pulmonary disease, unspecified; K21.9 Gastro-esophageal reflux disease without esophagitis; I95.1 Orthostatic hypotension; G47.33 Obstructive sleep apnea (adult) (pediatric); Z99.81 Dependence on supplemental oxygen; Z99.89 Dependence on other enabling machines and devices | CPT/HCPCS: 99212 ==

== ENCOUNTER 2023-11-28 15:37 | Outpatient (REF) | payer OTHER, SELFPAY | END 2023-11-28 15:38 | disposition home or self-care (01) | LOC: HO.MDS 15:37 | PROVIDERS: Visit Provider Hospitalist | DX: J45.50 Severe persistent asthma, uncomplicated (principal) | CPT/HCPCS: 96372 ==

== ENCOUNTER 2023-12-07 10:28 | Outpatient (REF) | payer OTHER, SELFPAY ==
[2023-12-07 10:49] LABS: MANUAL DIFF FLAG NO
[2023-12-07 11:10] LABS: Basophils Percent Auto 0.2 % (0-2); Hematocrit 40.8 % (37.0-47.0); Hemoglobin 12.7 g/dl (12.0-16.0); Imm Gran Abs Auto 0.03 X10*3/uL (0.00-0.03); Imm Gran Pct Auto 0.5 % (0.0-0.4); Lymphocytes Absolute Auto 1.3 X10*3/uL (1.2-4.9); Lymphocytes Percent Auto 21.4 % (20-40); Mean Corpuscular HGB Conc 31.1 g/dl (31.0-35.0); Mean Corpuscular Hemoglobin 28.7 pg (27.0-33.0); Mean Corpuscular Volume 92.1 fL (80.0-98.0); Mean Platelet Volume 9.7 fL (9.4-12.3); Monocytes Absolute Auto 0.4 X10*3/uL (0.1-1.2); Neutrophils Absolute Auto 4.3 x10*3/uL (2.0-8.3); Neutrophils Percent Auto 71.9 % (45-73); Platelet Count 335 X10*3/uL (160-400); Red Blood Count 4.43 X10*6/uL (4.20-5.50); Red Cell Distribution Width 13.7 % (11.0-16.0)
[2023-12-07 12:21] LABS: Anion Gap 12 (12-20); Blood Urea Nitrogen 12 mg/dL (9-16); Carbon Dioxide 25 mmol/L (22-29); Chloride 109 mmol/L (96-108); Estimated Glomerular Filt Rate > 60; Glucose Fasting 121 mg/dL (60-99); Potassium 4.2 mmol/L (3.3-5.1); Sodium 142 mmol/L (135-145)
[2023-12-07 12:22] LABS: Alanine Aminotransferase 12 U/L (0-31); Albumin Level 3.9 g/dL (3.5-5.0); Alkaline Phosphatase 91 U/L (39-117); Aspartate Amino Transferase 17 U/L (5-31); Bilirubin Total 0.2 mg/dL (0.0-1.0); Calcium 9.3 mg/dL (8.4-10.2); Cholesterol 143 mg/dL (<200); HDL Cholesterol 45 mg/dL (>40); LDL Cholesterol Calculated 79 mg/dL (<100); Total Protein 6.7 g/dL (6.5-8.0); Triglycerides 98 mg/dL (<150)
[2023-12-07 12:41] LABS: TSH reflex Free T4 1.11 uIU/mL (0.32-4.0)
== END 2023-12-07 10:29 | disposition home or self-care (01) ==
LOC: HO.LAB 10:28
PROVIDERS: PCP Internal Medicine; Visit Provider Nurse Practitioner Family
DX: E78.5 Hyperlipidemia, unspecified (principal); Z13.0 Encounter for screening for diseases of the blood and blood-forming organs and certain disorders involving the immune mechanism; Z13.29 Encounter for screening for other suspected endocrine disorder; Z13.220 Encounter for screening for lipoid disorders
CPT/HCPCS: 36415; 80053; 80061; 84443; 85025

== ENCOUNTER 2023-12-15 11:08 | Outpatient (REF) | payer OTHER, SELFPAY ==
[2023-12-15 11:26] LABS: MANUAL DIFF FLAG NO
--- NOTE | 2023-12-15 11:27 | ECG_ITS ---
Test Reason : Z01.818 Blood Pressure : / mmHG Vent. Rate : 096 BPM Atrial Rate : 096 BPM P-R Int : 156 ms QRS Dur : 096 ms QT Int : 352 ms P-R-T Axes : 039 015 036 degrees QTc Int : 444 ms Normal sinus rhythm Incomplete right bundle branch block Borderline ECG When compared with ECG of 23-OCT-2023 19:24, No significant change was found Referred By: Farideh Marquez Electronically Signed By:Grady Thakkar
[2023-12-15 12:26] LABS: Basophils Percent Auto 0.1 % (0-2); Hematocrit 40.9 % (37.0-47.0); Hemoglobin 13.1 g/dl (12.0-16.0); Imm Gran Abs Auto 0.03 X10*3/uL (0.00-0.03); Imm Gran Pct Auto 0.4 % (0.0-0.4); Lymphocytes Absolute Auto 1.4 X10*3/uL (1.2-4.9); Mean Corpuscular Volume 90.5 fL (80.0-98.0); Mean Platelet Volume 10.1 fL (9.4-12.3); Monocytes Absolute Auto 0.4 X10*3/uL (0.1-1.2); Monocytes Percent Auto 6.1 % (2-11); Neutrophils Absolute Auto 4.9 x10*3/uL (2.0-8.3); Neutrophils Percent Auto 72.4 % (45-73); Platelet Count 355 X10*3/uL (160-400); Red Blood Count 4.52 X10*6/uL (4.20-5.50); Red Cell Distribution Width 13.9 % (11.0-16.0); White Blood Count 6.7 X10*3/uL (4.8-10.8)
[2023-12-15 12:39] LABS: Alanine Aminotransferase 13 U/L (0-31); Albumin Level 3.9 g/dL (3.5-5.0); Alkaline Phosphatase 98 U/L (39-117); Anion Gap 11 (12-20); Aspartate Amino Transferase 16 U/L (5-31); Bilirubin Total 0.3 mg/dL (0.0-1.0); Blood Urea Nitrogen 11 mg/dL (9-16); Calcium 9.2 mg/dL (8.4-10.2); Carbon Dioxide 23 mmol/L (22-29); Chloride 112 mmol/L (96-108); Cholesterol 135 mg/dL (<200); Estimated Glomerular Filt Rate > 60; Glucose Fasting 112 mg/dL (60-99); HDL Cholesterol 45 mg/dL (>40); LDL Cholesterol Calculated 71 mg/dL (<100); Potassium 3.9 mmol/L (3.3-5.1); Sodium 142 mmol/L (135-145); Total Protein 6.7 g/dL (6.5-8.0); Triglycerides 95 mg/dL (<150)
== END 2023-12-15 11:09 | disposition home or self-care (01) ==
LOC: HO.LAB 11:08
PROVIDERS: PCP Internal Medicine; Visit Provider Internal Medicine
DX: Z01.818 Encounter for other preprocedural examination (principal); R00.2 Palpitations
CPT/HCPCS: 36415; 80053; 80061; 85025; 93005

== ENCOUNTER → 2023-12-15 11:27 | Outpatient (BNV) | payer OTHER, SELFPAY | PROVIDERS: PCP Internal Medicine; Visit Provider Internal Medicine Cardiovascular Disease | DX: R00.2 Palpitations (principal) | CPT/HCPCS: 93010 ==

== ENCOUNTER 2023-12-20 15:31 | Outpatient (AMB) | payer OTHER, SELFPAY ==
--- NOTE | 2023-12-20 15:32 | A.OFFPC_ITS ---
Vital Signs 12/20/23 15:33 Height 5 ft 1 in Weight 228 lb BMI 43.1 BP 116/80 Blood Pressure Location Lt brachial Position Sitting Intake Visit Reasons: PE/preop Dr. 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 Allergies No Known Allergies Allergy (Verified 12/20/23 15:55) Medication List - Last Reconciled 12/20/23 by Farideh Marquez MD [adult diapers pull-ups As directed] albuterol sulfate 90 mcg/actuation 2 puffs inhalation Q4H PRN albuterol sulfate 2.5 mg (3 mL) inhalation Q6H PRN 30 days amitriptyline 100 mg PO BEDTIME blood pressure kit-extra large As directed bupropion HCl 300 mg PO DAILY nlyyocqkpz-fasqcgtavrzka-muzr 50-300-40 mg (Fioricet) 1 cap PO Q8H PRN carboxymethylcellulose sodium 0.5% 1 drp ophthalmic (eye) BID PRN 30 days cetirizine 10 mg PO DAILY PRN 90 days cholecalciferol (vitamin D3) (Vitamin D3) 25 mcg PO DAILY clonazepam 1 mg PO DAILY PRN 30 days cromolyn 4% 1 drp ophthalmic (eye) 6XD 30 days diphenhydramine HCl (Banophen) 25 mg PO BEDTIME PRN disposable gloves (Biobrane Gloves Large) As directed [electric wheelchair As directed] esomeprazole magnesium (Nexium) 40 mg PO DAILY estradiol 0.01%(0.1mg/gram) 1 g vaginal 3XW [flushable wipes As directed] ghczfdrnlni-mlbxbxumy-wyketyiz 200-62.5-25 mcg (Trelegy Ellipta) 1 inh inhalation DAILY 30 days gabapentin 300 mg PO TID levothyroxine 50 mcg PO DAILY@0630 loratadine 10 mg PO DAILY 30 days lubiprostone 24 mcg PO BID Magic Mouthwash Diphen/Lido/Antacid 1:1:1 10 mL PO QID miscellaneous medical supply OVERBED TABLE nebulizers (AeroEclipse II Nebulizer) As directed oxygen-air delivery systems As directed [recliner with power buttons As directed] rosuvastatin 10 mg PO Q OTHER DAY 90 days [shower seat As directed] topiramate 100 mg PO BID trazodone 100 mg PO BEDTIME PRN 90 days triamcinolone acetonide 0.025% 1 appl topical DAILY underpads (Bed Underpads) As directed [wheeled table with drawers As directed] zolpidem 10 mg PO BEDTIME PRN 30 days Tobacco use date assessed: 12/20/23 Dental Screening Dental Screen Date: 12/20/23 Did you have a dental visit in the last 12 months?: Yes Did you have a dental problem in the last 6 months where you did not have access to dental care?: No Was dental information given to patient?: Patient has dentist HPI HPI Comments History of Present Illness Details This is a 63-year-old female with GERD, dyslipidemia, morbid obesity, asthma-COPD overlap syndrome, bipolar disorder and moderate major depression that comes accompanied by [employer] for preop evaluation of left shoulder arthroplasty scheduled for 12/26/2023. She has 4 to 5 Mets of ADLs. Walks with a walker for gait stability due to knee osteoarthritis. GERD stable with PPIs. Cholesterol stable with statins. Bipolar disorder and major depression are stable with medications. Asthma-COPD overlap syndrome is follow by pulmonology and use rescue inhaler once a month. No chest pain or shortness of breath. EKG and labs were reviewed. There is no contraindication for surgery. By [facility] she has 1 risk factor with cardiac risk of 0.9% of complications. Patient is medically clear for surgery. [facility] Medical History Hypersomnia Snoring ILD (interstitial lung disease) ROB on CPAP History of ESBL E. coli infection Obstructive sleep apnea Morbid obesity with BMI of 40.0-44.9, adult Moderate recurrent major depression Urinary retention Acute and chronic respiratory failure with hypoxia COVID-19 Lupus (systemic lupus erythematosus) Polyarthralgia Neck mass Eosinophilia Severe asthma Asthma-COPD overlap syndrome Trigger finger of right hand Recurrent UTI Tachycardia Obesity Lumbar degenerative disc disease GERD (gastroesophageal reflux disease) Hemangioma Hypovitaminosis D Bipolar 1 disorder Depression with anxiety Insomnia Oxygen dependent COPD (chronic obstructive pulmonary disease) Hypothyroidism Surgical History Hx of hand surgery Hx of cardiac catheterization History of esophagogastroduodenoscopy (EGD) History of cystocele History of colonoscopy History of shoulder surgery History of carpal tunnel release History of hysterectomy History of section History of tonsillectomy Family History (Updated 12/20/23 @ 16:02 by Farideh Marquez MD) Father Prostate cancer Mother No problems noted. Sister Nasopharyngeal cancer Social History Household Members: None Household Members Other:: 1 Housing: Apartment Do you presently have visiting nurse or other home services: Yes (Has [employer]) Alcohol intake: never Comment: sleeping Patient Tobacco Use Status: Former Tobacco user Years Smoked: 14 +/- e-Cigarette/Vaping Use: Never Used Second Hand Smoke Exposure: No Advance Directives Date on File: 01/08/21 service: No Current occupational status: disabled Current occupation: right and left handed--- HAS [employer] SERVICES Cognitive needs: Yes Hearing needs: No Vision needs: Yes Female Reproductive History Menstrual Age of Menarche: 12 Questionnaire PHQ-9 Over the last 2 weeks, how often have you been bothered by any of the following problems? 1. Little interest or pleasure in doing things: several days 2. Feeling down, depressed, or hopeless: several days 3. Trouble falling or staying asleep, or sleeping too much: several days 4. Feeling tired or having little energy: several days 5. Poor appetite or overeating: several days 6. Feeling bad about yourself - or that you are a failure or have let yourself or your family down: not at all 7. Trouble concentrating on things, such as reading the newspaper or watching television: not at all 8. Moving or speaking so slowly that other people could have noticed. Or the opposite - being so fidgety or restless that you have been moving around a lot more than usual: not at all 9. Thoughts that you would be better off or of hurting yourself in some way: not at all Total score: 5 Depression Screening Interpretation: Positive Depression Screening Follow-up: Existing condition Depression Screening Done: Yes 06441 - PHQ-9 Billing: Yes Source: Developed by Drs. Power Thornton, Melissa Peñaloza, Master Grijalva and colleagues, with an educational sudhir from [employer]. Thrive Questionnaire Date Thrive assessed: 12/20/23 I am a: Patient What is your living situation today?: I have a steady place to live Within the past 12 months, did the food you bought not last and you didn't have the money to get more?: Never true Within the past 12 months, did you worry whether your food would run out before you got money to buy more?: Never true Do you have trouble paying for medicines?: No Do you have trouble getting transportation to medical appointments?: No Do you have trouble paying your heating and electricity bill?: No Do you have trouble taking care of your child, family member or friend?: No Do you have trouble with day-to-day activities such as bathing, preparing meals, shopping, managing finances, etc.?: Yes Are you currently unemployed and looking for a job?: No Are you interested in more education?: No Please select the resources that you would like help with: None Currently or been in a relationship where the following occur: no concerns reported THRIVE Score: 0 AUDIT C Alcohol Use Questionnaire (AUDIT-C) 1. How often do you have a drink containing alcohol?: Never Total Score: 0 DAO-7 AMB Questionnaire DAO-7 Date DAO - 7 assessed: 12/20/23 Feeling nervous, anxious, or on edge: 2 = More than half the days Not being able to stop or control worryin = Several days Worrying too much about different things: 2 = More than half the days Trouble relaxin = Several days Being so restless that it is hard to sit still: 0 = Not at all Becoming easily annoyed or irritable: 0 = Not at all Feeling afraid as if something awful might happen: 0 = Not at all Total DAO-7 score (0-4 normal; 5-9 mild; 10-14 moderate; 15-21 severe): 6 Source: Developed by Drs. Power Thornton, Melissa Peñaloza, Master Grijalva and colleagues, with an educational sudhir from [employer]. DAO-7 Assessment Billing DAO-7 Assessment Tool: DAO-7 Assessment 20822 Review of Systems Const All systems reviewed & are unremarkable except as noted in HPI and below Eyes Reports no additional complaints, Denies change in vision and Denies other visual disturbances Card Denies chest pain at rest, Denies chest pain with activity, Denies edema, Denies irregular heart rhythm, Denies claudication, Denies dyspnea, Denies dyspnea on exertion, Denies orthopnea, Denies paroxysmal nocturnal dyspnea and Denies slow heart rate Resp Denies cough, Denies dyspnea and Denies dyspnea on exertion GI Denies abdominal pain, Denies change in bowel habits, Denies excessive flatus, Denies nausea and Denies vomiting Denies urinary incontinence, Denies urinary hesitancy and Denies urinary urgency Musc Denies abnormal gait, Denies atrophy, Denies deformity and Denies limited range of motion Skin/Breast Denies bleeding lesions, Denies changing lesions and Denies rash Neuro Denies abnormal gait and Denies lack of coordination Physical exam (Primary Care) Vital Signs: Last Vital Signs BP 116/80 12/20/23 15:33 BMI result Body Mass Index 43.1 Tobacco/Smoking Status: Tobacco use Status Tobacco use date assessed 12/20/23 12/20/23 15:47 Patient Tobacco Use Status Former Tobacco user 12/20/23 15:47 Tobacco use type 07/15/23 11:19 e-Cigarette/Vaping Use Never Used 12/20/23 15:47 PHQ-9: PHQ-9 Score PHQ-9: Total score 5 12/20/23 15:47 Depression Screening Interpretation: Positive Depression Screening Follow-up: Existing condition Thrive Assessment: Date of Thrive Assessment Date Thrive assessed 12/20/23 12/20/23 15:47 Currently or been in a relationship where the following occur: no concerns reported Const Orientation/consciousness: patient oriented x3 Eyes General: appearance normal, both eyes and all related structures Eyelids: Yes eyelids normal Conjunctivae: conjunctivae normal Neck Neck: Yes normal visual inspection and Yes supple Resp Effort & Inspection: normal respiratory effort Auscultation: clear to auscultation bilaterally Cardio Jugular venous distension: no JVD Rate: regular rate Rhythm: regular rhythm Heart sounds: S1 normal heart sound present and S2 normal heart sound present Skin General skin exam: no rashes or lesions noted Neuro General: patient oriented x3 and no focal motor deficits Assessment and Plan Assessment & Plan (1) Pre-op evaluation: Code(s): Z01.818 - Encounter for other preprocedural examination Plan: Patient clear for surgery. (2) GERD (gastroesophageal reflux disease): Code(s): K21.9 - Gastro-esophageal reflux disease without esophagitis Plan: Continue PPIs. (3) Dyslipidemia: Code(s): E78.5 - Hyperlipidemia, unspecified Plan: Continue statins. (4) Bipolar 1 disorder: Code(s): F31.9 - Bipolar disorder, unspecified Plan: Continue amitriptyline. (5) Morbid obesity with BMI of 40.0-44.9, adult: Code(s): E66.01 - Morbid (severe) obesity due to excess calories; Z68.41 - Body mass index [BMI] 40.0-44.9, adult Plan: Start diet and exercise. BMI goal is less than 30. (6) Moderate recurrent major depression: Code(s): F33.1 - Major depressive disorder, recurrent, moderate Plan: Continue bupropion. (7) Asthma-COPD overlap syndrome: Comment: follows /[facility] [place] Pulmonology Code(s): J44.9 - Chronic obstructive pulmonary disease, unspecified Plan: Continue Trelegy. Follow-up with pulmonology. Use rescue inhaler as needed. Medications: Changed From gabapentin 300 mg PO BID 90 days 180 caps 0RF To gabapentin 300 mg PO TID Refilled albuterol sulfate 90 mcg/actuation 2 puffs inhalation Q4H PRN 8.5 grams 11RF Wheezing Magic Mouthwash Diphen/Lido/Antacid 1:1:1 Lidocaine Viscous 2 % 80mL; diphenhydramine 12.5 mg/5 mL 80mL; aluminum-mag hydrox-simeth [id number]/5mL 80mL 10 mL PO QID 240 mL 0RF Coding Level of Care Code Est Pt Level 4 (80377) Diagnoses Pre-op evaluation Z01.818 GERD (gastroesophageal reflux disease) K21.9 Dyslipidemia E78.5 Bipolar 1 disorder F31.9 Morbid obesity with BMI of 40.0-44.9, adult E66.01; Z68.41 Moderate recurrent major depression F33.1 Asthma-COPD overlap syndrome J44.9 Additional Codes DAO-7 Assessment Billing - DAO-7 Assessment Tool: DAO-7 Assessment 97800 ([id number]) Time Spent (min) 26
[2023-12-20 15:33] VITALS: BP 116/80; BMI 43.1
== END 2023-12-20 16:13 | disposition home or self-care (01) ==
PROVIDERS: Visit Provider Internal Medicine
DX: J44.9 Chronic obstructive pulmonary disease, unspecified (principal); F31.9 Bipolar disorder, unspecified; E66.01 Morbid (severe) obesity due to excess calories; Z68.41 Body mass index [BMI] 40.0-44.9, adult; F33.1 Major depressive disorder, recurrent, moderate; E78.5 Hyperlipidemia, unspecified; Z01.818 Encounter for other preprocedural examination; K21.9 Gastro-esophageal reflux disease without esophagitis
CPT/HCPCS: 99214

== ENCOUNTER 2024-01-27 13:57 | Inpatient (IN) | payer OTHER, SELFPAY ==
[2024-01-27] VITALS (8 sets, daily range): BP systolic 94–122; BP diastolic 55–77; PULSE 98–114; RESP 16–20; TEMP 36.2–36.9; O2SAT 96–98; BMI 34.5; BMI 39.5
--- NOTE | ~2024-01-27 | CT_ITS ---
EXAMINATION: CT HEAD WITHOUT CONTRAST CLINICAL INFORMATION: Headache COMPARISON: None available. TECHNIQUE: Contiguous axial imaging was performed from the skull base to vertex without intravenous administration of contrast. This CT examination was performed using dose optimization techniques as appropriate, variously including the following: *Automated exposure control *Adjustment of mA and/or kV according to patient size (this includes techniques or standardized protocols for targeted exams where dose is matched to indication/reason for exam; i.e. extremities or head) *Use of iterative reconstruction technique DLP: 907 mGy-cm FINDINGS: There is no acute intra-axial, extra-axial bleed, masses or midline shift. There is no acute infarction evolution. There is no edema. The yuan to white matter differentiation is maintained normal. The lateral ventricles are symmetrical in size and configuration but mildly prominent. Bone windows reveal no calvarial abnormality. There is no scalp soft tissue abnormality. Bilateral paranasal sinuses and mastoid air cells are well-aerated with a small polyp or retention cyst right maxillary sinus.. CT/CT head/brain wo IV con IMPRESSION: No acute intracranial process seen.
--- NOTE | 2024-01-27 15:04 | ED.GENADULT ---
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 Patient has been treated with valacyclovir for a painful rash on her left upper extremity and left chest that was noted to be shingles. She was admitted at [facility] from January 17 to January 23. She states she has been having ongoing pain in the left upper extremity and the back of her head on the left side. Her daughter is at the bedside who helps provide history. Her daughter states that she found her mom weak today. She was lethargic. Blood pressure taken at home was 80/40s per report. She has a home machine that goes around the wrist. Patient reports her blood pressure is ?high and then low. ? She denies being on any blood pressure medications. Daughter is concerned she has not taking her medications appropriately as her meds from the other day were not taken at all. She has been on tramadol and cyclobenzaprine for shingles pain. She completed her antiviral treatment. Patient states she has not been sleeping due to the pain in the back of her head. It is waking her up every 2 hours. EMS blood pressure was 110 systolic. MD complaint: Headache and weakness, possible low blood pressure Onset (ago): day(s) Location: head Radiation: neck and extremity Severity: severe Quality: burning Pain Consistency: constant Relieving factors: medication Exacerbating factors: none Associated symptoms: malaise, rash and weakness Treatments prior to arrival: none Related Data Home Medications Medication Instructions Recorded Confirmed oxygen-air delivery systems ##1 08/24/20 08/23/23 topiramate 100 mg tablet 100 mg PO BID 07/13/22 01/27/24 amitriptyline 100 mg tablet 100 mg PO BEDTIME 08/23/23 01/27/24 bupropion HCl 300 mg 24 hr tablet, 300 mg PO DAILY 08/23/23 01/27/24 extended release gabapentin 300 mg capsule 300 mg PO BID 12/20/23 01/27/24 acetaminophen 325 mg tablet 325 mg PO QID PRN Pain 01/27/24 01/27/24 benralizumab 30 mg/mL subcutaneous 30 mg subcut Q8W 01/27/24 01/27/24 syringe (Fasenra) clonazepam 1 mg tablet 1 mg PO DAILY Anxiety 01/27/24 01/27/24 cyclobenzaprine 10 mg tablet 10 mg PO TID PRN MUSCLE SPASMS 01/27/24 01/27/24 docusate sodium 100 mg tablet 100 mg PO BID 01/27/24 01/27/24 lamotrigine 200 mg tablet 200 mg PO DAILY 01/27/24 01/27/24 pantoprazole 40 mg tablet,delayed 40 mg PO BID 01/27/24 01/27/24 release quetiapine 50 mg tablet 50 - 100 mg PO BEDTIME 01/27/24 01/27/24 rosuvastatin 10 mg tablet 10 mg PO DAILY 01/27/24 01/27/24 simethicone 125 mg tablet 125 mg PO QID PRN GAS 01/27/24 01/27/24 tramadol 50 mg tablet 50 mg PO Q6H PRN Pain 01/27/24 01/27/24 valacyclovir 500 mg tablet 500 mg PO TID 01/27/24 01/27/24 Previous Rx's Medication Instructions Recorded shower seat #1 ea 11/23/20 miscellaneous medical supply #1 ea 12/22/20 electric wheelchair #1 ea 04/30/22 blood pressure kit-extra large #1 ea 08/29/22 wheeled table with drawers #1 ea 12/05/22 albuterol sulfate 2.5 mg/3 mL 2.5 mg (3 mL) inhalation Q6H PRN 12/23/22 (0.083 %) solution for nebulization shortness of breath or wheezing 30 days #180 mL adult diapers pull-ups #240 ea 02/13/23 disposable gloves (Biobrane Gloves #200 ea 02/13/23 Large) flushable wipes #240 ea 02/13/23 underpads (Bed Underpads) #100 ea 04/17/23 fluticasone fur. 200 mcg-umeclid 1 inh inhalation DAILY 30 days #60 04/24/23 62.5 mcg-vilant 25 mcg ea inhalat.powder (Trelegy Ellipta) trazodone 100 mg tablet 100 mg PO BEDTIME PRN sleep 90 05/08/23 days #90 tabs cetirizine 10 mg tablet 10 mg PO DAILY PRN allergy 05/09/23 symptoms 90 days #90 tabs cholecalciferol (vitamin D3) 25 25 mcg PO DAILY #30 caps 05/09/23 mcg (1,000 unit) capsule (Vitamin D3) nebulizers (AeroEclipse II #1 ea 05/15/23 Nebulizer) lubiprostone 24 mcg capsule 24 mcg PO BID #180 caps 07/04/23 carboxymethylcellulose sodium 0.5 1 drp ophthalmic (eye) BID PRN dry 10/05/23 % eye drops in a dropperette eye(s) 30 days #30 ea diphenhydramine HCl 25 mg capsule 25 mg PO BEDTIME PRN sleep #30 caps 10/05/23 (Banophen) levothyroxine 50 mcg tablet 50 mcg PO DAILY@0630 #90 tabs 11/24/23 recliner with power buttons #1 ea 12/02/23 cromolyn 4 % eye drops 1 drp ophthalmic (eye) 6XD 30 days 12/18/23 #10 mL albuterol sulfate 90 mcg/actuation 2 puff inhalation Q4H PRN Wheezing 12/20/23 aerosol inhaler #8.5 grams Allergies Allergy/AdvReac Type Severity Reaction Status Date / Time No Known Allergies Allergy Verified 12/20/23 15:55 Review of Systems Review of Systems: Yes all other systems are reviewed and are negative [facility] Past Medical History Medical History Pre-op evaluation RSV (acute bronchiolitis due to respiratory syncytial virus) Chest pain Palpitations URI (upper respiratory infection) Snoring Encounter for screening for malignant neoplasm of colon Well woman exam Physical exam Morbid obesity Lumbar pain Urinary incontinence Low blood pressure Allergic reaction UTI (urinary tract infection) Palpitations Morbid obesity with BMI of 40.0-44.9, adult Epigastric abdominal pain Oxygen dependent Hypothyroidism Hypersomnia ILD (interstitial lung disease) ROB on CPAP History of ESBL E. coli infection Obstructive sleep apnea Moderate recurrent major depression Urinary retention Acute and chronic respiratory failure with hypoxia COVID-19 Lupus (systemic lupus erythematosus) Polyarthralgia Neck mass Eosinophilia Severe asthma Asthma-COPD overlap syndrome Trigger finger of right hand Recurrent UTI Tachycardia Obesity Lumbar degenerative disc disease GERD (gastroesophageal reflux disease) Hemangioma Hypovitaminosis D Bipolar 1 disorder Depression with anxiety Insomnia COPD (chronic obstructive pulmonary disease) Surgical History Hx of hand surgery Hx of cardiac catheterization History of esophagogastroduodenoscopy (EGD) History of cystocele History of colonoscopy History of shoulder surgery History of carpal tunnel release History of hysterectomy History of section History of tonsillectomy Family History Family History Father Prostate cancer Mother No problems noted. Sister Nasopharyngeal cancer Social History Social History Household Members: None Household Members Other:: 1 Housing: Apartment Do you presently have visiting nurse or other home services: Yes (Has [employer]) Alcohol intake: never Comment: sleeping Patient Tobacco Use Status: Former Tobacco user Years Smoked: 14 +/- e-Cigarette/Vaping Use: Never Used Second Hand Smoke Exposure: No Advance Directives: Yes Advance Directives on File: Yes Advance Directives Date on File: 01/08/21 service: No Current occupational status: disabled Current occupation: right and left handed--- HAS [employer] SERVICES Cognitive needs: Yes Hearing needs: No Vision needs: Yes Physical Exam ED Vital Signs: Vital Signs - 24 hr 01/27/24 14:45 01/27/24 15:44 01/27/24 15:44 Temperature 98.4 F Pulse Rate 106 H 104 H 106 H Respiratory Rate 16 Blood Pressure 105/68 115/73 103/68 Pulse Oximetry 97 Oxygen Delivery Method Room Air 01/27/24 15:44 01/27/24 16:40 01/27/24 16:42 Temperature Pulse Rate 114 H 98 105 H Respiratory Rate Blood Pressure 94/63 107/55 L 112/72 Pulse Oximetry Oxygen Delivery Method 01/27/24 16:44 Temperature Pulse Rate 111 H Respiratory Rate Blood Pressure 122/72 Pulse Oximetry Oxygen Delivery Method BMI result Body Mass Index 34.5 Appearance: Alert. Oriented X3. No acute distress. Head: normocephalic, atraumatic. tenderness of the left occiput, no visible lesions on the scalp Eyes: Pupils equal, round and reactive to light. ENT: Pharynx normal. No tonsillar swelling or exudate. Neck: Normal inspection. Neck supple. CVS: Normal heart rate and rhythm. Pulses normal. Respiratory: No respiratory distress. Breath sounds normal. Abdomen: Soft and nontender. +BS x4 Skin: Skin warm and dry. Normal skin color. Normal skin turgor. crusting crash with multiple lesions on the anterior left shoulder, left chest and left upper extremity Extremities: No lower extremity edema. No joint swelling. Neuro/psych: Oriented X 3. No motor deficit. No sensory deficit. CN II-XII intact. Normal speech and cognition. Course Reevaluation(s) Reevaluation #1: Orthostatic vital signs are positive with a 21 point drop in her systolic blood pressure. EKG ordered. IVF ordered. will reassess Time: 15:44 Reevaluation #2: Patient continues to be orthostatic after IV fluids. Patient also has evidence of a UTI. Blood cultures + lactic ordered. Patient given IV ceftriaxone. Spoke to the hospitalist team who agreed to admission. Patient's clinical presentation is not consistent with sepsis (@1730) Time: 17:32 Medications Administered Generic Name Dose Route Start Last Admin Trade Name Freq PRN Reason Stop Dose Admin Amitriptyline HCl 100 mg 01/27/24 21:00 01/27/24 21:37 Amitriptyline Hcl 50 Mg Tablet PO 100 mg BEDTIME YOBANI Administration Docusate Sodium 100 mg 01/27/24 21:00 01/27/24 21:37 Docusate Sodium 100 Mg Capsule PO 100 mg BID YOBANI Administration Enoxaparin Sodium 40 mg 01/27/24 18:30 01/27/24 19:31 Enoxaparin Sodium 40 Mg/0.4 Ml Syringe SUBCUT Not Given Q24H YOBANI Gabapentin 300 mg 01/27/24 21:00 01/27/24 21:37 Gabapentin 300 Mg Capsule PO 300 mg BID YOBANI Administration Sodium Chloride 1,000 mls @ 100 mls/hr 01/27/24 18:30 01/28/24 05:18 Ns IVCONT 100 mls/hr .Q10H YOBANI Administration Levothyroxine Sodium 50 mcg 01/28/24 06:00 01/28/24 05:59 Levothyroxine Sodium 50 Mcg Tablet PO 50 mcg DAILY@0600 [facility] Administration Omeprazole 20 mg 01/28/24 06:30 01/28/24 05:59 Omeprazole 20 Mg Capsule. PO 20 mg BID@0630,1630 YOBANI Administration Quetiapine Fumarate 100 mg 01/27/24 21:00 01/27/24 21:37 Quetiapine Fumarate 100 Mg Tablet PO 100 mg BEDTIME YOBANI Administration Sodium Chloride 3 ml 01/28/24 00:00 01/27/24 21:37 0.9 % Sodium Chloride Flush 3 Ml Syringe IVFLUSH Not Given QSHIFT YOBANI Topiramate 100 mg 01/27/24 21:00 01/27/24 21:37 Topiramate 100 Mg Tablet PO 100 mg BID YOBANI Administration Valacyclovir HCl 500 mg 01/27/24 21:00 01/27/24 21:37 Valacyclovir Hcl 500 Mg Tablet PO 500 mg TID YOBANI Administration Discontinued Medications Generic Name Dose Route Start Last Admin Trade Name Imani PRN Reason Stop Dose Admin Acetaminophen/Butalbital/Caffeine 1 tab 01/27/24 18:31 01/27/24 19:03 Butalb/Acetamin/Caff 50/325/40 Tablet PO 01/27/24 18:32 1 tab ONCE ONE Administration Sodium Chloride 1,000 mls @ 999 mls/hr 01/27/24 15:45 01/27/24 17:35 Ns IV 01/27/24 16:45 Infused .Q1H1M YOBANI Infusion Ceftriaxone Sodium 1 gm/ 50 mls @ 100 mls/hr 01/27/24 17:13 01/27/24 19:31 Sodium Chloride IV 01/27/24 17:42 Infused ONCE ONE Infusion Medical Decision Making Medical Decision Making MDM Narrative: 63-year-old Mongolian-speaking female with a history of fibromyalgia, HTN, COPD, migraines, cardiomyopathy, UTI, osteoarthritis, gastroparesis, CAD, morbid obesity, bipolar disorder, ROB, hypothyroidism, recent surgery on her left shoulder and recent diagnosis of shingles on her left upper extremity on January 03 who presents to the ER from home via EMS for evaluation of generalized weakness and low blood pressure at home. BP for EMS 110. Here BP is 105/68 with HR 106, no fevers. Exam c/w shingles rash. The pain in her head is consistent with post herpetic neuralgia and is in the same dermatomal distribution as her shingles rash. No need for CT scan of her head at this time. Orthostatic vital signs are positive. IV fluids ordered. Will reassess. Differential Diagnosis Differential Diagnoses: The differential diagnosis associated with the presentation includes Failure to thrive, dehydration, orthostatic hypotension, accidental medication overdose, adverse reaction to medication, post herpetic neuralgia Admission/Observation Consideration of admission/observation: Escalation of care including admission/observation considered Lab Data MDM Lab Attestation statement: I reviewed the patient's lab results. 01/28/24 06:05 01/27/24 15:15 Labs: Lab Results 01/27/24 01/27/24 01/27/24 Range/Units 15:15 16:13 16:52 WBC 6.6 (4.8-10.8) X10*3/uL RBC 4.32 (4.20-5.50) X10*6/uL Hgb 12.2 (12.0-16.0) g/dl Hct 38.3 (37.0-47.0) % MCV 88.7 (80.0-98.0) fL MCH 28.2 (27.0-33.0) pg MCHC 31.9 (31.0-35.0) g/dl RDW 14.5 (11.0-16.0) % Plt Count 390 (160-400) X10*3/uL MPV 9.1 L (9.4-12.3) fL Immature Gran % (Auto) 0.8 H (0.0-0.4) % Neut % (Auto) 63.2 (45-73) % Lymph % (Auto) 29.0 (20-40) % [place] % (Auto) 6.8 (2-11) % Eos % (Auto) 0.0 (0-4) % Baso % (Auto) 0.2 (0-2) % Lymph # (Auto) 1.9 (1.2-4.9) X10*3/uL [place] # (Auto) 0.5 (0.1-1.2) X10*3/uL Eos # (Auto) 0.0 (0.0-0.4) X10*3/uL Baso # (Auto) 0.0 (0.0-0.2) X10*3/uL Abs Immat Gran (auto) 0.05 H (0.00-0.03) X10*3/uL Absolute Neuts (auto) 4.2 (2.0-8.3) x10*3/uL Absolute Nucleated RBC 0.000 (0.0-0.012) X10*3/uL Nucleated RBC % (auto) 0.0 (0.0-0.2) /100WBC Sodium 140 (135-145) mmol/L Potassium 3.9 (3.3-5.1) mmol/L Chloride 111 H (96-108) mmol/L Carbon Dioxide 23 (22-29) mmol/L Anion Gap 10 L (12-20) BUN 10 (9-16) mg/dL Creatinine 0.83 (0.5-1.4) mg/dL Estim Creat Clear Calc 71.2 Estimated GFR > 60 Random Glucose 127 H (60-115) mg/dL Lactic Acid (0.5-2.0) mmol/L Calcium 9.6 (8.4-10.2) mg/dL Magnesium 2.1 (1.6-2.6) mg/dL Total Bilirubin 0.2 (0.0-1.0) mg/dL Direct Bilirubin < 0.2 (0.0-0.5) mg/dL AST 18 (5-31) U/L ALT 14 (0-31) U/L Alkaline Phosphatase 116 (39-117) U/L Total Protein 7.2 (6.5-8.0) g/dL Albumin 3.8 (3.5-5.0) g/dL Urine Color Yellow Urine Appearance Turbid Urine pH 6.0 (5.0-9.0) Ur Specific [place] 1.015 (1.005-1.025) Urine Protein Negative (Neg-Trace) mg/dL Urine Glucose (UA) Negative (Negative) mg/dL Urine Ketones Negative (Negative) mg/dL Urine Blood Trace H (Negative) Urine Nitrite Positive H (Negative) Ur Leukocyte Esterase Large (3+) H (Negative) Urine RBC 0-2 (0-2) /HPF Urine WBC >50 H (0-5) /HPF Ur Squamous Epith Cells 0-2 (0-2) /HPF Urine Bacteria 4+ (None Seen) Hyaline Casts 0-2 (0-2) /LPF Influenza Type A (PCR) NEGATIVE (Negative) Influenza Type B (PCR) NEGATIVE (Negative) RSV RNA Qual (PCR) NEGATIVE (Negative) SARS-CoV-2 RNA (RT-PCR) NEGATIVE (Negative) 01/27/24 Range/Units 17:46 WBC (4.8-10.8) X10*3/uL RBC (4.20-5.50) X10*6/uL Hgb (12.0-16.0) g/dl Hct (37.0-47.0) % MCV (80.0-98.0) fL MCH (27.0-33.0) pg MCHC (31.0-35.0) g/dl RDW (11.0-16.0) % Plt Count (160-400) X10*3/uL MPV (9.4-12.3) fL Immature Gran % (Auto) (0.0-0.4) % Neut % (Auto) (45-73) % Lymph % (Auto) (20-40) % [place] % (Auto) (2-11) % Eos % (Auto) (0-4) % Baso % (Auto) (0-2) % Lymph # (Auto) (1.2-4.9) X10*3/uL [place] # (Auto) (0.1-1.2) X10*3/uL Eos # (Auto) (0.0-0.4) X10*3/uL Baso # (Auto) (0.0-0.2) X10*3/uL Abs Immat Gran (auto) (0.00-0.03) X10*3/uL Absolute Neuts (auto) (2.0-8.3) x10*3/uL Absolute Nucleated RBC (0.0-0.012) X10*3/uL Nucleated RBC % (auto) (0.0-0.2) /100WBC Sodium (135-145) mmol/L Potassium (3.3-5.1) mmol/L Chloride (96-108) mmol/L Carbon Dioxide (22-29) mmol/L Anion Gap (12-20) BUN (9-16) mg/dL Creatinine (0.5-1.4) mg/dL Estim Creat Clear Calc Estimated GFR Random Glucose (60-115) mg/dL Lactic Acid 1.8 (0.5-2.0) mmol/L Calcium (8.4-10.2) mg/dL Magnesium (1.6-2.6) mg/dL Total Bilirubin (0.0-1.0) mg/dL Direct Bilirubin (0.0-0.5) mg/dL AST (5-31) U/L ALT (0-31) U/L Alkaline Phosphatase (39-117) U/L Total Protein (6.5-8.0) g/dL Albumin (3.5-5.0) g/dL Urine Color Urine Appearance Urine pH (5.0-9.0) Ur Specific [place] (1.005-1.025) Urine Protein (Neg-Trace) mg/dL Urine Glucose (UA) (Negative) mg/dL Urine Ketones (Negative) mg/dL Urine Blood (Negative) Urine Nitrite (Negative) Ur Leukocyte Esterase (Negative) Urine RBC (0-2) /HPF Urine WBC (0-5) /HPF Ur Squamous Epith Cells (0-2) /HPF Urine Bacteria (None Seen) Hyaline Casts (0-2) /LPF Influenza Type A (PCR) (Negative) Influenza Type B (PCR) (Negative) RSV RNA Qual (PCR) (Negative) SARS-CoV-2 RNA (RT-PCR) (Negative) Independent Historian Clinical information obtained from an independent historian. History obtained from or confirmed by: EMS and Other (Adult daughter at the bedside) External Record Review External record reviewed: Inpatient record Prescription Management I considered prescription management with: Pain Medication and Antiviral Chronic Conditions Patient?s care impacted by: Hypertension Critical Care Time Critical Care Time Critical Care Time: Yes Total Critical Care Time: 48 Attestation: I have personally provided critical care time exclusive of time spent on separately billable procedures. Time includes review of lab data, radiology results, bedside re-evaluations and monitoring for potential decompensation. Intervention performed as documented. Discharge Plan Discharge Clinical Impression: Post herpetic neuralgia, Orthostatic hypotension, Acute UTI Patient Disposition: Admitted As Inpatient Interventions: Admission Worksheet (ED) Last Done: 01/27/24 19:27 Discharge Date/Time: 01/27/24 20:06
[2024-01-27 15:18] LABS: MANUAL DIFF FLAG NO
[2024-01-27 15:19] LABS: Basophils Percent Auto 0.2 % (0-2); Hematocrit 38.3 % (37.0-47.0); Hemoglobin 12.2 g/dl (12.0-16.0); Imm Gran Abs Auto 0.05 X10*3/uL (0.00-0.03); Imm Gran Pct Auto 0.8 % (0.0-0.4); Lymphocytes Absolute Auto 1.9 X10*3/uL (1.2-4.9); Mean Corpuscular HGB Conc 31.9 g/dl (31.0-35.0); Mean Corpuscular Hemoglobin 28.2 pg (27.0-33.0); Mean Corpuscular Volume 88.7 fL (80.0-98.0); Mean Platelet Volume 9.1 fL (9.4-12.3); Monocytes Absolute Auto 0.5 X10*3/uL (0.1-1.2); Monocytes Percent Auto 6.8 % (2-11); Neutrophils Absolute Auto 4.2 x10*3/uL (2.0-8.3); Neutrophils Percent Auto 63.2 % (45-73); Platelet Count 390 X10*3/uL (160-400); Red Blood Count 4.32 X10*6/uL (4.20-5.50); Red Cell Distribution Width 14.5 % (11.0-16.0); White Blood Count 6.6 X10*3/uL (4.8-10.8)
[2024-01-27 15:35] LABS: Alanine Aminotransferase 14 U/L (0-31); Albumin Level 3.8 g/dL (3.5-5.0); Alkaline Phosphatase 116 U/L (39-117); Anion Gap 10 (12-20); Aspartate Amino Transferase 18 U/L (5-31); Bilirubin Direct < 0.2 mg/dL (0.0-0.5); Bilirubin Total 0.2 mg/dL (0.0-1.0); Blood Urea Nitrogen 10 mg/dL (9-16); Calcium 9.6 mg/dL (8.4-10.2); Carbon Dioxide 23 mmol/L (22-29); Chloride 111 mmol/L (96-108); Creatinine Clr Calc Pharmacy 71.2; Estimated Glomerular Filt Rate > 60; Glucose Random 127 mg/dL (60-115); Magnesium 2.1 mg/dL (1.6-2.6); Potassium 3.9 mmol/L (3.3-5.1); Sodium 140 mmol/L (135-145); Total Protein 7.2 g/dL (6.5-8.0)
[2024-01-27] MEDS: 0.9 % Sodium Chloride 1,000 ML 999 ML IV (15:59)
--- NOTE | 2024-01-27 16:00 | PC.NURSE ---
orthostatics done. IV established, fluids infusing at this time
--- NOTE | 2024-01-27 16:01 | ECG_ITS ---
Test Reason : WEAKNESS Blood Pressure : / mmHG Vent. Rate : 103 BPM Atrial Rate : 103 BPM P-R Int : 152 ms QRS Dur : 094 ms QT Int : 346 ms P-R-T Axes : 026 000 020 degrees QTc Int : 453 ms Sinus tachycardia Incomplete right bundle branch block Borderline ECG When compared with ECG of 15-DEC-2023 11:35, No significant change was found Referred By: Rosio Interiano Electronically Signed By:Grady Thakkar
--- NOTE | 2024-01-27 16:53 | PC.NURSE ---
ambulated independently with steady gait to the bathroom to provide urine sample.
[2024-01-27 16:58] LABS: Influenza A PCR NEGATIVE (Negative); Influenza B PCR NEGATIVE (Negative); Resp Syncy Virus RNA Qual PCR NEGATIVE (Negative); SARS COV2 PCR INHOUSE NEGATIVE (Negative)
[2024-01-27 17:01] LABS: Appearance Urine Turbid; Color Urine Yellow; Glucose Urine UA Negative (Negative); Leukocyte Esterase Urine Large (3+) (Negative); Nitrite Urine Positive (Negative); Specific Gravity - Urine 1.015 (1.005-1.025); UMIC TRIGGER UACC YES; Urine Blood Trace (Negative); Urine Ketones Negative (Negative); Urine Protein Negative (Neg-Trace)
[2024-01-27 17:06] LABS: Bacteria Urine 4+ (None Seen); Hyaline Casts Urine 0-2 /LPF (0-2); RBC Urine 0-2 /HPF (0-2); Squamous Epithelial Cell Urine 0-2 /HPF (0-2); UACC Culture Trigger YES; WBC Urine >50 /HPF (0-5)
[2024-01-27] MEDS: cefTRIAXone sodium 1 GM in 0.9 % Sodium Chloride 50 ML IV (17:56)
[2024-01-27 18:04] LABS: Lactic Acid 1.8 mmol/L (0.5-2.0)
--- NOTE | 2024-01-27 18:44 | P.HPHOSP_ITS ---
History of Present Illness Date of Service: 01/27/24 Attending physician on admission: Lee Flores Chief Complaint: headache, shoulder pain 63-year-old female with history of hypothyroidism, interstitial lung disease, ROB not on CPAP, asthma/COPD overlap, mood disorder, coronary artery disease, fibromyalgia, lumbar degenerative disc disease, and recurrent UTIs presents to the ED earlier today for evaluation of an occipital headache with pain radiating into the left side of the face. The patient is a vague historian and is known to have chronic encephalopathy related to psychiatric conditions, lupus. Reports vision changes describes as a whoosh but unable to elaborate despite use of tajik interpretor. Denies blurred vision, double vision, vision loss. She also presented for evaluation of LUE pain. Had recent surgery on left shoulder 01/03 and subsequently developed shingles on right upper chest/upper back diagnosed 01/23 on valtrex. The rash is painful. She was found by daughter at home and was noted to be weak and blood pressure was reportedly 80s/40s. The daughter expresses concern that she has not taking her medications appropriately as medications from the other day were not taken at all. She denies focal weakness, paresthesias, slurred speech, facial droop, dysphagia, gait imbalance, lightheadedness, urinary symptoms, palpitations, sob, chest pain. In the ED, orthostatic vital signs reported as positive with limited improvement following 1L IVF. Hematology studies unremarkable. Renal function electrolyte levels normal. Lactic acid 1.8. Urinalysis significant for 3+ leukocytes, positive nitrites, trace blood, positive urinary sediment, 4+ bacteria. Negative for flu, COVID, RSV. EKG shows sinus tachycardia, rate 103 with incomplete right bundle branch block, no significant ST/T-wave abnormality. In the ED, given 1 g IV ceftriaxone and 1 L IV NS. Review of Systems 2 Review of Systems: General: No fevers, malaise, unintentional weight loss HEENT: No blurred vision, diplopia. No sore throat, nasal congestion, rhinorrhea, sinus pain, ear pain Cardiovascular: No chest pain, palpitations, or leg edema Respiratory: No shortness of breath, wheezing, cough GI: No abdominal pain, nausea, vomiting, diarrhea, constipation, melena, hematochezia : No dysuria, hematuria, increased urinary frequency, decreased urinary output MSK: No myalgia, back pain. +left shoulder pain, +left sided facial pain Neuro: +headache. No weakness, paresthesias Skin: +rash left shoulder/upper back [facility] Medical History Pre-op evaluation RSV (acute bronchiolitis due to respiratory syncytial virus) Chest pain Palpitations URI (upper respiratory infection) Snoring Encounter for screening for malignant neoplasm of colon Well woman exam Physical exam Morbid obesity Lumbar pain Urinary incontinence Low blood pressure Allergic reaction UTI (urinary tract infection) Palpitations Morbid obesity with BMI of 40.0-44.9, adult Epigastric abdominal pain Oxygen dependent Hypothyroidism Hypersomnia ILD (interstitial lung disease) ROB on CPAP History of ESBL E. coli infection Obstructive sleep apnea Moderate recurrent major depression Urinary retention Acute and chronic respiratory failure with hypoxia COVID-19 Lupus (systemic lupus erythematosus) Polyarthralgia Neck mass Eosinophilia Severe asthma Asthma-COPD overlap syndrome Trigger finger of right hand Recurrent UTI Tachycardia Obesity Lumbar degenerative disc disease GERD (gastroesophageal reflux disease) Hemangioma Hypovitaminosis D Bipolar 1 disorder Depression with anxiety Insomnia COPD (chronic obstructive pulmonary disease) Family History Father Prostate cancer Mother No problems noted. Sister Nasopharyngeal cancer Surgical History Hx of hand surgery Hx of cardiac catheterization History of esophagogastroduodenoscopy (EGD) History of cystocele History of colonoscopy History of shoulder surgery History of carpal tunnel release History of hysterectomy History of section History of tonsillectomy Social History Household Members: None Household Members Other:: 1 Housing: Apartment Do you presently have visiting nurse or other home services: Yes (Has [employer]) Alcohol intake: never Comment: sleeping Patient Tobacco Use Status: Former Tobacco user Years Smoked: 14 +/- e-Cigarette/Vaping Use: Never Used Second Hand Smoke Exposure: No Advance Directives: Yes Advance Directives on File: Yes Advance Directives Date on File: 01/08/21 service: No Current occupational status: disabled Current occupation: right and left handed--- HAS [employer] SERVICES Cognitive needs: Yes Hearing needs: No Vision needs: Yes Meds Allergies Allergy/AdvReac Type Severity Reaction Status Date / Time No Known Allergies Allergy Verified 12/20/23 15:55 Active Medications: Current Medications Acetaminophen (Acetaminophen 325 Mg Tablet) 650 mg PO Q6H PRN PRN Reason: Pain, Mild (Pain Scale 1-3) Enoxaparin Sodium (Enoxaparin Sodium 40 Mg/0.4 Ml Syringe) 40 mg SUBCUT Q24H YOBANI Sodium Chloride (Ns) 1,000 mls @ 100 mls/hr IVCONT .Q10H YOBANI Ceftriaxone Sodium 1 gm/ (Sodium Chloride) 50 mls @ 100 mls/hr IV Q24H YOBANI Ondansetron HCl (Ondansetron Hcl 4 Mg/2 Ml Vial) 4 mg IVPUSH Q8H PRN PRN Reason: Nausea and Vomiting Senna (Sennosides 8.6 Mg Tablet) 17.2 mg PO BEDTIME PRN PRN Reason: Constipation Sodium Chloride (0.9 % Sodium Chloride Flush 3 Ml Syringe) 3 ml IVFLUSH QSHIFT YOBANI Home Medications Medication Instructions Recorded Confirmed Last Taken Type oxygen-air delivery systems ##1 08/24/20 08/23/23 Unknown History topiramate 100 mg tablet 100 mg PO BID 07/13/22 01/27/24 Unknown History amitriptyline 100 mg tablet 100 mg PO BEDTIME 08/23/23 01/27/24 Unknown History bupropion HCl 300 mg 24 hr tablet, 300 mg PO DAILY 08/23/23 01/27/24 Unknown History extended release gabapentin 300 mg capsule 300 mg PO BID 12/20/23 01/27/24 Unknown History acetaminophen 325 mg tablet 325 mg PO QID PRN Pain 01/27/24 01/27/24 Unknown History benralizumab 30 mg/mL subcutaneous 30 mg subcut Q8W 01/27/24 01/27/24 12/05/23 History syringe (Fasenra) clonazepam 1 mg tablet 1 mg PO DAILY Anxiety 01/27/24 01/27/24 Unknown History cyclobenzaprine 10 mg tablet 10 mg PO TID PRN MUSCLE SPASMS 01/27/24 01/27/24 Unknown History docusate sodium 100 mg tablet 100 mg PO BID 01/27/24 01/27/24 Unknown History lamotrigine 200 mg tablet 200 mg PO DAILY 01/27/24 01/27/24 Unknown History pantoprazole 40 mg tablet,delayed 40 mg PO BID 01/27/24 01/27/24 Unknown History release quetiapine 50 mg tablet 50 - 100 mg PO BEDTIME 01/27/24 01/27/24 Unknown History rosuvastatin 10 mg tablet 10 mg PO DAILY 01/27/24 01/27/24 Unknown History simethicone 125 mg tablet 125 mg PO QID PRN GAS 01/27/24 01/27/24 Unknown History tramadol 50 mg tablet 50 mg PO Q6H PRN Pain 01/27/24 01/27/24 Unknown History valacyclovir 500 mg tablet 500 mg PO TID 01/27/24 01/27/24 Unknown History Physical Exam 2 Vital Signs and Narrative: Vital Signs: Last Vital Signs Temp 98.4 F 01/27/24 14:45 Pulse 111 H 01/27/24 16:44 Resp 16 01/27/24 14:45 BP 122/72 01/27/24 16:44 Pulse Ox 97 01/27/24 14:45 O2 Del Method Room Air 01/27/24 14:45 BMI result Body Mass Index 34.5 Constitutional - Awake and Alert, No apparent distress Eyes - PERRLA, EOMI Cardiovascular - S1S2, RRR, No edema Respiratory - Normal lung expansion, Normal respiratory effort, No respiratory distress, CTA bilaterally Gastrointestinal - NT / ND; +BS; No rebound or guarding Extremities - no calf tenderness bilaterally, no swelling Skin - Warm/Dry. Scabbed pustular lesions on the anterior left shoulder and left upper back confined to the C5 dermatome Neurological - Alert & oriented x3, ttp left side face (no rash/pustule noted) CN II-XII in tact, 5/5 strength BUE and BLE Psychological - Appropriate affect Results Labs 01/27/24 15:15 01/27/24 15:15 Labs: Laboratory Results - last 24 hr 01/27/24 01/27/24 01/27/24 15:15 16:13 16:52 MCV 88.7 MCH 28.2 MCHC 31.9 RDW 14.5 Plt Count 390 MPV 9.1 L Immature Gran % (Auto) 0.8 H Neut % (Auto) 63.2 Lymph % (Auto) 29.0 [place] % (Auto) 6.8 Eos % (Auto) 0.0 Baso % (Auto) 0.2 Lymph # (Auto) 1.9 [place] # (Auto) 0.5 Eos # (Auto) 0.0 Baso # (Auto) 0.0 Abs Immat Gran (auto) 0.05 H Absolute Neuts (auto) 4.2 Absolute Nucleated RBC 0.000 Nucleated RBC % (auto) 0.0 Anion Gap 10 L Estim Creat Clear Calc 71.2 Estimated GFR > 60 Random Glucose 127 H Lactic Acid Calcium 9.6 Magnesium 2.1 Total Bilirubin 0.2 Direct Bilirubin < 0.2 AST 18 ALT 14 Alkaline Phosphatase 116 Total Protein 7.2 Albumin 3.8 Urine Color Yellow Urine Appearance Turbid Urine pH 6.0 Ur Specific [place] 1.015 Urine Protein Negative Urine Glucose (UA) Negative Urine Ketones Negative Urine Blood Trace H Urine Nitrite Positive H Ur Leukocyte Esterase Large (3+) H Urine RBC 0-2 Urine WBC >50 H Ur Squamous Epith Cells 0-2 Urine Bacteria 4+ Hyaline Casts 0-2 Influenza Type A (PCR) NEGATIVE Influenza Type B (PCR) NEGATIVE RSV RNA Qual (PCR) NEGATIVE SARS-CoV-2 RNA (RT-PCR) NEGATIVE 01/27/24 17:46 MCV MCH MCHC RDW Plt Count MPV Immature Gran % (Auto) Neut % (Auto) Lymph % (Auto) [place] % (Auto) Eos % (Auto) Baso % (Auto) Lymph # (Auto) [place] # (Auto) Eos # (Auto) Baso # (Auto) Abs Immat Gran (auto) Absolute Neuts (auto) Absolute Nucleated RBC Nucleated RBC % (auto) Anion Gap Estim Creat Clear Calc Estimated GFR Random Glucose Lactic Acid 1.8 Calcium Magnesium Total Bilirubin Direct Bilirubin AST ALT Alkaline Phosphatase Total Protein Albumin Urine Color Urine Appearance Urine pH Ur Specific [place] Urine Protein Urine Glucose (UA) Urine Ketones Urine Blood Urine Nitrite Ur Leukocyte Esterase Urine RBC Urine WBC Ur Squamous Epith Cells Urine Bacteria Hyaline Casts Influenza Type A (PCR) Influenza Type B (PCR) RSV RNA Qual (PCR) SARS-CoV-2 RNA (RT-PCR) Assessment and Plan (1) Acute UTI: Status: Acute (2) Orthostatic hypotension: Status: Acute (3) Herpes zoster: Status: Acute (4) Migraines: Status: Acute Plan 63-year-old female with history of hypothyroidism, interstitial lung disease, ROB not on CPAP, asthma/COPD overlap, mood disorder, coronary artery disease, fibromyalgia, lumbar degenerative disc disease, and recurrent UTIs to be observed for orthostatic hypotension with UTI #Orthostatic hypotension -continue ivf -repeat orthostatic vs am #Acute uti -UA with 3+ leukocytes, positive nitrites, trace blood, positive urinary sediment, 4+ bacteria -IV ceftriaxone (initiated 01/26) -follow CBC, cultures # migraine headache -no pustular lesions, facial pain likely related to migraine headache rather than worsening herpes zoster -continue Fioricet p.r.n. -no focal neuro deficits # herpes zoster -confined to left C5 dermatome -continue Valtrex (initiated 01/23) x 7 days -no open pustules, contact precautions #Asthma/COPD, ILD -No exacerbation -continue maintenance inhalers Albuterol as needed # mood disorder -Continue home medications #hypothyroidism -Continue levothyroxine # ROB -not on CPAP DVT prophylaxis-Lovenox Full code Quality Stroke Does the patient have a stroke diagnosis?: No VTE Prior VTE?: No VTE Risk Level:: Medical - moderate - high VTE Device Contraindication: Treatment Not Indicated VTE Drug Contraindication: N/A - Med Ordered
--- NOTE | 2024-01-27 18:53 | PHA.MEDREC ---
Pharmacy Consult ? Medication Reconciliation Pharmacy has completed the medication reconciliation. Called [facility] WELDER to confirm medications (Criss [phone]) however she was not sure on doses and frequencies and said she used her discharge paperwork for her medication list. Patient had the discharge papers from [facility] so i used that for med rec. Used claim information for other medications such as eye drops, albuterol, vitamin D3, diphehydramine.
[2024-01-27] MEDS: 0.9 % Sodium Chloride 1,000 ML 100 ML IVCONT (18:59)
[2024-01-27] MEDS: Butalb/Acetamin/Caff 50/325/40 TABLET 1 TAB PO (19:03)
--- NOTE | 2024-01-27 19:36 | MHC.EDTECH ---
Patient wanted to stay in her own nightgown and not change
[2024-01-27] MEDS: Gabapentin 300 MG CAPSULE PO (21:37)
[2024-01-27] MEDS: Docusate Sodium 100 MG CAPSULE PO (21:37)
[2024-01-27] MEDS: QUEtiapine Fumarate 100 MG TABLET PO (21:37)
[2024-01-27] MEDS: valACYclovir HCL 500 MG TABLET PO (21:37)
[2024-01-27] MEDS: Topiramate 100 MG TABLET PO (21:37)
[2024-01-27] MEDS: Amitriptyline HCl 50 MG TABLET 100 MG PO (21:37)
[2024-01-28 03:31] VITALS: BP 131/78; PULSE 103; RESP 20; TEMP 36.3; O2SAT 98
[2024-01-28] MEDS: 0.9 % Sodium Chloride 1,000 ML 100 ML IVCONT ×2 (05:18→18:33)
[2024-01-28] MEDS: Omeprazole 20 MG CAPSULE.DR PO ×2 (05:59→15:11)
[2024-01-28] MEDS: Levothyroxine Sodium 50 MCG TABLET PO (05:59)
[2024-01-28 06:23] LABS: MANUAL DIFF FLAG NO
[2024-01-28 07:05] LABS: Basophils Percent Auto 0.3 % (0-2); Eosinophils Absolute Auto 0.1 X10*3/uL (0.0-0.4); Eosinophils Percent Auto 1.7 % (0-4); Hematocrit 35.5 % (37.0-47.0); Imm Gran Abs Auto 0.04 X10*3/uL (0.00-0.03); Imm Gran Pct Auto 0.7 % (0.0-0.4); Lymphocytes Absolute Auto 1.9 X10*3/uL (1.2-4.9); Lymphocytes Percent Auto 31.4 % (20-40); Mean Corpuscular Hemoglobin 28.6 pg (27.0-33.0); Mean Corpuscular Volume 92.2 fL (80.0-98.0); Mean Platelet Volume 9.6 fL (9.4-12.3); Monocytes Absolute Auto 0.5 X10*3/uL (0.1-1.2); Monocytes Percent Auto 8.1 % (2-11); Neutrophils Absolute Auto 3.4 x10*3/uL (2.0-8.3); Neutrophils Percent Auto 57.8 % (45-73); Platelet Count 357 X10*3/uL (160-400); Red Blood Count 3.85 X10*6/uL (4.20-5.50); Red Cell Distribution Width 14.6 % (11.0-16.0); White Blood Count 5.9 X10*3/uL (4.8-10.8)
[2024-01-28 07:21] VITALS: BP 114/71; PULSE 106; RESP 20; TEMP 37.1; O2SAT 99
[2024-01-28] MEDS: lamoTRIgine 100 MG TABLET 200 MG PO (08:57)
[2024-01-28] MEDS: clonazePAM 1 MG TABLET PO (08:57)
[2024-01-28] MEDS: Docusate Sodium 100 MG CAPSULE PO ×2 (08:57→20:38)
[2024-01-28] MEDS: Atorvastatin Calcium 40 MG TABLET PO (08:57)
[2024-01-28] MEDS: Gabapentin 300 MG CAPSULE PO ×2 (08:57→20:38)
[2024-01-28] MEDS: traMADoL HCL 50 MG TABLET PO ×2 (08:57→20:39)
[2024-01-28] MEDS: Cholecalciferol (Vitamin D3) 25 MCG TABLET PO (08:57)
[2024-01-28] MEDS: Topiramate 100 MG TABLET PO ×2 (08:57→20:38)
[2024-01-28] MEDS: valACYclovir HCL 500 MG TABLET PO ×3 (08:57→20:56)
[2024-01-28] MEDS: buPROPion HCl XL 300 MG TAB.ER.24H PO (09:01)
[2024-01-28] MEDS: 0.9 % Sodium Chloride Flush 3 ML SYRINGE IVFLUSH ×2 (09:04→20:55)
--- NOTE | 2024-01-28 09:19 | P.PNIM_ITS ---
Subjective Subjective Date of Service: 01/28/24 Interval History: shoulder pain, occiptial headache Physical Exam 2 Vital Signs: Vital Signs: Last Vital Signs Temp 98.8 F 01/28/24 07:21 Pulse 106 H 01/28/24 07:21 Resp 20 01/28/24 07:21 BP 114/71 01/28/24 07:21 Pulse Ox 99 01/28/24 07:21 O2 Del Method Room Air 01/28/24 07:21 BMI result Body Mass Index 39.5 General: AO X 3, no acute distress Resp: CTA bilateral, no accessory muscles used CVS: S1,S2,RRR GI: soft, non tender, non distended Neuro: motor grossly intact, alert Psych: appropriate affect, appropriate insight left shoulder crusted over shingles Objective Data Active Medications Acetaminophen (Acetaminophen 325 Mg Tablet) 650 mg PO Q6H PRN PRN Reason: Pain, Mild (Pain Scale 1-3) Albuterol Sulfate (Albuterol Sulfate (0.083%) 2.5 Mg/3 Ml Vial.Neb) 2.5 mg INHALE Q6H PRN PRN Reason: shortness of breath or wheezing Albuterol Sulfate (Albuterol Sulfate 90 Mcg 8 Gm Inhaler) 2 puff INHALE Q4H PRN PRN Reason: Wheezing Amitriptyline HCl (Amitriptyline Hcl 50 Mg Tablet) 100 mg PO BEDTIME [facility] Last Admin: 01/27/24 21:37 Dose: 100 mg Documented By: JENIFER Artificial Tears (Artificial Tears 15 Ml Drops) 1 drop EYE-BOTH BID PRN PRN Reason: dry eye(s) Atorvastatin Calcium (Atorvastatin Calcium 40 Mg Tablet) 40 mg PO DAILY [facility] Last Admin: 01/28/24 08:57 Dose: 40 mg Documented By: BEBE Bupropion HCl (Bupropion Hcl Xl 300 Mg Tab.Er.24h) 300 mg PO DAILY [facility] Last Admin: 01/28/24 09:01 Dose: 300 mg Documented By: BEBE Clonazepam (Clonazepam 1 Mg Tablet) 1 mg PO DAILY [facility] Last Admin: 01/28/24 08:57 Dose: 1 mg Documented By: BEBE Cyclobenzaprine HCl (Cyclobenzaprine Hcl 10 Mg Tablet) 10 mg PO TID PRN PRN Reason: MUSCLE SPASMS Diphenhydramine HCl (Diphenhydramine Hcl 25 Mg Capsule) 25 mg PO BEDTIME PRN PRN Reason: sleep Docusate Sodium (Docusate Sodium 100 Mg Capsule) 100 mg PO BID [facility] Last Admin: 01/28/24 08:57 Dose: 100 mg Documented By: BEBE Enoxaparin Sodium (Enoxaparin Sodium 40 Mg/0.4 Ml Syringe) 40 mg SUBCUT Q24H [facility] Last Admin: 01/27/24 19:31 Dose: Not Given Documented By: LAUREN Non-Admin Reason: Patient Refused Fluticasone/Umeclidinium/Vilanterol (Fluticasone/Umeclidinium/Vilanterol 200/62.5/25 Blst.W.Dev) 1 puff INHALE RDAILY [facility] Gabapentin (Gabapentin 300 Mg Capsule) 300 mg PO BID [facility] Last Admin: 01/28/24 08:57 Dose: 300 mg Documented By: BEBE Sodium Chloride (Ns) 1,000 mls @ 100 mls/hr IVCONT .Q10H [facility] Last Admin: 01/28/24 05:18 Dose: 100 mls/hr Documented By: GALEN Ceftriaxone Sodium 1 gm/ (Sodium Chloride) 50 mls @ 100 mls/hr IV Q24H [facility] Lamotrigine (Lamotrigine 100 Mg Tablet) 200 mg PO DAILY [facility] Last Admin: 01/28/24 08:57 Dose: 200 mg Documented By: BEBE Levothyroxine Sodium (Levothyroxine Sodium 50 Mcg Tablet) 50 mcg PO DAILY@0600 [facility] Last Admin: 01/28/24 05:59 Dose: 50 mcg Documented By: GALEN Loratadine (Loratadine 10 Mg Tablet) 10 mg PO DAILY PRN PRN Reason: allergy symptoms Non-Formulary Medication (Cromolyn) 1 drop EYE-BOTH 6XD [facility] Non-Formulary Medication (Lubiprostone) 24 mcg PO BID [facility] Omeprazole (Omeprazole 20 Mg Capsule.Dr) 20 mg PO BID@0630,1630 [facility] Last Admin: 01/28/24 05:59 Dose: 20 mg Documented By: GALEN Ondansetron HCl (Ondansetron Hcl 4 Mg/2 Ml Vial) 4 mg IVPUSH Q8H PRN PRN Reason: Nausea and Vomiting Quetiapine Fumarate (Quetiapine Fumarate 100 Mg Tablet) 100 mg PO BEDTIME [facility] Last Admin: 01/27/24 21:37 Dose: 100 mg Documented By: JENIFER Senna (Sennosides 8.6 Mg Tablet) 17.2 mg PO BEDTIME PRN PRN Reason: Constipation Simethicone (Simethicone 80 Mg Tab.Chew) 80 mg PO QID PRN PRN Reason: GAS Sodium Chloride (0.9 % Sodium Chloride Flush 3 Ml Syringe) 3 ml IVFLUSH QSHIFT [facility] Last Admin: 01/28/24 09:04 Dose: 3 ml Documented By: BEBE Topiramate (Topiramate 100 Mg Tablet) 100 mg PO BID [facility] Last Admin: 01/28/24 08:57 Dose: 100 mg Documented By: BEBE Tramadol HCl (Tramadol Hcl 50 Mg Tablet) 50 mg PO Q6H PRN PRN Reason: Pain, Moderate(Pain Scale 4-6) Last Admin: 01/28/24 08:57 Dose: 50 mg Documented By: BEBE Trazodone HCl (Trazodone Hcl 100 Mg Tablet) 100 mg PO BEDTIME PRN PRN Reason: sleep Valacyclovir HCl (Valacyclovir Hcl 500 Mg Tablet) 500 mg PO TID [facility] Last Admin: 01/28/24 08:57 Dose: 500 mg Documented By: BEBE Vitamin D (Cholecalciferol (Vitamin D3) 25 Mcg Tablet) 25 mcg PO DAILY [facility] Last Admin: 01/28/24 08:57 Dose: 25 mcg Documented By: BEBE Labs 01/28/24 06:05 01/27/24 15:15 Labs: Laboratory Results - last 24 hr 01/27/24 01/27/24 01/27/24 15:15 16:13 16:52 MCV 88.7 MCH 28.2 MCHC 31.9 RDW 14.5 Plt Count 390 MPV 9.1 L Immature Gran % (Auto) 0.8 H Neut % (Auto) 63.2 Lymph % (Auto) 29.0 [place] % (Auto) 6.8 Eos % (Auto) 0.0 Baso % (Auto) 0.2 Lymph # (Auto) 1.9 [place] # (Auto) 0.5 Eos # (Auto) 0.0 Baso # (Auto) 0.0 Abs Immat Gran (auto) 0.05 H Absolute Neuts (auto) 4.2 Absolute Nucleated RBC 0.000 Nucleated RBC % (auto) 0.0 Anion Gap 10 L Estim Creat Clear Calc 71.2 Estimated GFR > 60 Random Glucose 127 H Lactic Acid Calcium 9.6 Magnesium 2.1 Total Bilirubin 0.2 Direct Bilirubin < 0.2 AST 18 ALT 14 Alkaline Phosphatase 116 Total Protein 7.2 Albumin 3.8 Urine Color Yellow Urine Appearance Turbid Urine pH 6.0 Ur Specific [place] 1.015 Urine Protein Negative Urine Glucose (UA) Negative Urine Ketones Negative Urine Blood Trace H Urine Nitrite Positive H Ur Leukocyte Esterase Large (3+) H Urine RBC 0-2 Urine WBC >50 H Ur Squamous Epith Cells 0-2 Urine Bacteria 4+ Hyaline Casts 0-2 Influenza Type A (PCR) NEGATIVE Influenza Type B (PCR) NEGATIVE RSV RNA Qual (PCR) NEGATIVE SARS-CoV-2 RNA (RT-PCR) NEGATIVE 01/27/24 01/28/24 17:46 06:05 MCV 92.2 MCH 28.6 MCHC 31.0 RDW 14.6 Plt Count 357 MPV 9.6 Immature Gran % (Auto) 0.7 H Neut % (Auto) 57.8 Lymph % (Auto) 31.4 [place] % (Auto) 8.1 Eos % (Auto) 1.7 Baso % (Auto) 0.3 Lymph # (Auto) 1.9 [place] # (Auto) 0.5 Eos # (Auto) 0.1 Baso # (Auto) 0.0 Abs Immat Gran (auto) 0.04 H Absolute Neuts (auto) 3.4 Absolute Nucleated RBC 0.000 Nucleated RBC % (auto) 0.0 Anion Gap Estim Creat Clear Calc Estimated GFR Random Glucose Lactic Acid 1.8 Calcium Magnesium Total Bilirubin Direct Bilirubin AST ALT Alkaline Phosphatase Total Protein Albumin Urine Color Urine Appearance Urine pH Ur Specific [place] Urine Protein Urine Glucose (UA) Urine Ketones Urine Blood Urine Nitrite Ur Leukocyte Esterase Urine RBC Urine WBC Ur Squamous Epith Cells Urine Bacteria Hyaline Casts Influenza Type A (PCR) Influenza Type B (PCR) RSV RNA Qual (PCR) SARS-CoV-2 RNA (RT-PCR) Assessment and Plan (1) Herpes zoster: Status: Acute Plan 63F PMH hypothyroid, interstitial lung disease, ROB not on CPAP, COPD/asthma, mood disorder, coronary disease, fibromyalgia, lumbar degenerative disc disease presented with migraine headache, left shoulder pain, weakness. Found to have UTI. Orthostatic hypotension IV fluids, monitor Acute UTI Continue IV ceftriaxone, follow-up cultures, does have history of MDR organisms Migraine headache Continue Fioricet, Topamax Herpes zoster Continue Valtrex Topical Lidoderm Asthma/COPD/ILD Stable Hypothyroid Synthroid Obesity Weight loss recommended DVT prophylaxis with Lovenox Full Code reason for continued hospitalization: awaiting cultures Quality Stroke Does the patient have a stroke diagnosis?: No VTE Prior VTE?: No VTE Risk Level:: Medical - moderate - high VTE Device Contraindication: Treatment Not Indicated VTE Drug Contraindication: N/A - Med Ordered
--- NOTE | 2024-01-28 09:22 | MHC.CM.PN ---
Patient is documented to be a vague Historian known to have Chronic Encephalopathy; CM spoke with Primary Contact/ALTERNATE HCP/Sister/Gloria at [phone] and addressed RODRIGUEZ with her. Patient's Son/Demetria is from [place] and he is the Primary HCP Agent @ [phone]. Patient lives alone in an apartment and she receives 52 [employer] hours/week. Home/resume said services is the goal and CM has initiated and will follow for dc planning. PCP is Dr. Farideh Cabrera.
[2024-01-28] MEDS: Lidocaine 4 % Patch ADH..PATCH 1 PATCH TRANSDERMA (10:34)
[2024-01-28 11:09] VITALS: BP 132/82; PULSE 111; RESP 18; TEMP 36.3; O2SAT 100
[2024-01-28] MEDS: Fluticasone/Umeclidinium/Vilanterol 200/62.5/25 BLST.W.DEV 1 PUFF INHALE (11:15)
[2024-01-28 11:19] VITALS: PULSE 104; RESP 20; O2SAT 98
[2024-01-28] MEDS: oxyCODONE HCl Immed Release 5 MG TABLET PO (12:40)
[2024-01-28 12:41] LABS: Anion Gap 12 (12-20); Blood Urea Nitrogen 10 mg/dL (9-16); Calcium 8.9 mg/dL (8.4-10.2); Carbon Dioxide 20 mmol/L (22-29); Chloride 114 mmol/L (96-108); Creatinine Clr Calc Pharmacy 80.5; Estimated Glomerular Filt Rate > 60; Glucose Random 99 mg/dL (60-115); Sodium 142 mmol/L (135-145)
[2024-01-28 15:15] VITALS: BP 134/94; PULSE 115; RESP 20; TEMP 36.2; O2SAT 98
[2024-01-28] MEDS: cefTRIAXone sodium 1 GM in 0.9 % Sodium Chloride 50 ML IV (18:32)
[2024-01-28] MEDS: Enoxaparin Sodium 40 MG/0.4 ML SYRINGE SUBCUT (18:32)
[2024-01-28 19:09] VITALS: BP 116/63; PULSE 106; RESP 20; TEMP 36.3; O2SAT 100
[2024-01-28] MEDS: Amitriptyline HCl 50 MG TABLET 100 MG PO (20:38)
[2024-01-28] MEDS: Cyclobenzaprine HCl 10 MG TABLET PO (20:39)
[2024-01-28] MEDS: Acetaminophen 325 MG TABLET 650 MG PO (20:40)
[2024-01-28] MEDS: QUEtiapine Fumarate 100 MG TABLET PO (20:43)
[2024-01-29] VITALS (9 sets, daily range): BP systolic 92–126; BP diastolic 59–78; PULSE 55–109; RESP 18–22; TEMP 35.6–36.8; O2SAT 96–99
[2024-01-29] MEDS: 0.9 % Sodium Chloride 1,000 ML 100 ML IVCONT ×2 (02:53→10:20)
[2024-01-29] MEDS: traMADoL HCL 50 MG TABLET PO ×3 (05:11→22:50)
[2024-01-29] MEDS: Acetaminophen 325 MG TABLET 650 MG PO ×2 (05:11→15:02)
[2024-01-29] MEDS: Omeprazole 20 MG CAPSULE.DR PO ×2 (05:11→15:02)
[2024-01-29] MEDS: Levothyroxine Sodium 50 MCG TABLET PO (05:11)
[2024-01-29] MEDS: diphenhydrAMINE HCL 25 MG CAPSULE PO ×2 (05:12→22:50)
[2024-01-29] MEDS: valACYclovir HCL 500 MG TABLET PO ×3 (08:07→22:50)
[2024-01-29] MEDS: Atorvastatin Calcium 40 MG TABLET PO (08:07)
[2024-01-29] MEDS: Cyclobenzaprine HCl 10 MG TABLET PO ×2 (08:07→15:04)
[2024-01-29] MEDS: Fluticasone/Umeclidinium/Vilanterol 200/62.5/25 BLST.W.DEV 1 PUFF INHALE (08:07)
[2024-01-29] MEDS: buPROPion HCl XL 300 MG TAB.ER.24H PO (08:07)
[2024-01-29] MEDS: lamoTRIgine 100 MG TABLET 200 MG PO (08:07)
[2024-01-29] MEDS: Cholecalciferol (Vitamin D3) 25 MCG TABLET PO (08:07)
[2024-01-29] MEDS: Lidocaine 4 % Patch ADH..PATCH 1 PATCH TRANSDERMA (08:08)
[2024-01-29] MEDS: Gabapentin 300 MG CAPSULE PO ×2 (08:08→22:51)
[2024-01-29] MEDS: clonazePAM 1 MG TABLET PO (08:08)
[2024-01-29] MEDS: Topiramate 100 MG TABLET PO ×2 (08:08→22:51)
[2024-01-29] MEDS: 0.9 % Sodium Chloride Flush 3 ML SYRINGE IVFLUSH ×2 (08:08→15:04)
[2024-01-29] MEDS: Docusate Sodium 100 MG CAPSULE PO ×2 (08:08→22:51)
--- NOTE | 2024-01-29 09:20 | P.PNIM_ITS ---
Subjective Subjective Date of Service: 01/29/24 Interval History: headache present but improved Physical Exam 2 Vital Signs: Vital Signs: Last Vital Signs Temp 96.1 F L 01/29/24 07:20 Pulse 104 H 01/29/24 08:09 Resp 18 01/29/24 08:09 BP 108/73 01/29/24 07:20 Pulse Ox 98 01/29/24 07:20 O2 Del Method Room Air 01/29/24 07:20 BMI result Body Mass Index 39.5 General: AO X 3, no acute distress Resp: CTA bilateral, no accessory muscles used CVS: S1,S2,RRR GI: soft, non tender, non distended Neuro: motor grossly intact, alert Psych: appropriate affect, appropriate insight left shoulder crusted over shingles Objective Data Active Medications Acetaminophen (Acetaminophen 325 Mg Tablet) 650 mg PO Q6H PRN PRN Reason: Pain, Mild (Pain Scale 1-3) Last Admin: 01/29/24 05:11 Dose: 650 mg Documented By: JUAN Albuterol Sulfate (Albuterol Sulfate (0.083%) 2.5 Mg/3 Ml Vial.Neb) 2.5 mg INHALE Q6H PRN PRN Reason: shortness of breath or wheezing Albuterol Sulfate (Albuterol Sulfate 90 Mcg 8 Gm Inhaler) 2 puff INHALE Q4H PRN PRN Reason: Wheezing Amitriptyline HCl (Amitriptyline Hcl 50 Mg Tablet) 100 mg PO BEDTIME [facility] Last Admin: 01/28/24 20:38 Dose: 100 mg Documented By: JUAN Artificial Tears (Artificial Tears 15 Ml Drops) 1 drop EYE-BOTH BID PRN PRN Reason: dry eye(s) Atorvastatin Calcium (Atorvastatin Calcium 40 Mg Tablet) 40 mg PO DAILY [facility] Last Admin: 01/29/24 08:07 Dose: 40 mg Documented By: MATT Bupropion HCl (Bupropion Hcl Xl 300 Mg Tab.Er.24h) 300 mg PO DAILY [facility] Last Admin: 01/29/24 08:07 Dose: 300 mg Documented By: MATT Clonazepam (Clonazepam 1 Mg Tablet) 1 mg PO DAILY [facility] Last Admin: 01/29/24 08:08 Dose: 1 mg Documented By: MATT Cyclobenzaprine HCl (Cyclobenzaprine Hcl 10 Mg Tablet) 10 mg PO TID PRN PRN Reason: MUSCLE SPASMS Last Admin: 01/29/24 08:07 Dose: 10 mg Documented By: MATT Diphenhydramine HCl (Diphenhydramine Hcl 25 Mg Capsule) 25 mg PO BEDTIME PRN PRN Reason: sleep Last Admin: 01/29/24 05:12 Dose: 25 mg Documented By: JUAN Docusate Sodium (Docusate Sodium 100 Mg Capsule) 100 mg PO BID [facility] Last Admin: 01/29/24 08:08 Dose: 100 mg Documented By: MATT Enoxaparin Sodium (Enoxaparin Sodium 40 Mg/0.4 Ml Syringe) 40 mg SUBCUT Q24H [facility] Last Admin: 01/28/24 18:32 Dose: 40 mg Documented By: BEBE Fluticasone/Umeclidinium/Vilanterol (Fluticasone/Umeclidinium/Vilanterol 200/62.5/25 Blst.W.Dev) 1 puff INHALE RDAILY [facility] Last Admin: 01/29/24 08:07 Dose: 1 puff Documented By: CLOVER Gabapentin (Gabapentin 300 Mg Capsule) 300 mg PO BID [facility] Last Admin: 01/29/24 08:08 Dose: 300 mg Documented By: MATT Sodium Chloride (Ns) 1,000 mls @ 100 mls/hr IVCONT .Q10H [facility] Last Admin: 01/29/24 02:53 Dose: 100 mls/hr Documented By: JUAN Ceftriaxone Sodium 1 gm/ (Sodium Chloride) 50 mls @ 100 mls/hr IV Q24H [facility] Last Infusion: 01/28/24 19:15 Dose: Infused Documented By: BEBE Lamotrigine (Lamotrigine 100 Mg Tablet) 200 mg PO DAILY [facility] Last Admin: 01/29/24 08:07 Dose: 200 mg Documented By: MATT Levothyroxine Sodium (Levothyroxine Sodium 50 Mcg Tablet) 50 mcg PO DAILY@0600 [facility] Last Admin: 01/29/24 05:11 Dose: 50 mcg Documented By: JUAN Lidocaine (Lidocaine 4 % Patch Adh..Patch) 1 patch TRANSDERMA DAILY [facility]; Protocol Last Admin: 01/29/24 08:08 Dose: 1 patch Documented By: MATT Loratadine (Loratadine 10 Mg Tablet) 10 mg PO DAILY PRN PRN Reason: allergy symptoms Non-Formulary Medication (Cromolyn) 1 drop EYE-BOTH 6XD [facility] Non-Formulary Medication (Lubiprostone) 24 mcg PO BID [facility] Omeprazole (Omeprazole 20 Mg Capsule.Dr) 20 mg PO BID@0630,1630 [facility] Last Admin: 01/29/24 05:11 Dose: 20 mg Documented By: JUAN Ondansetron HCl (Ondansetron Hcl 4 Mg/2 Ml Vial) 4 mg IVPUSH Q8H PRN PRN Reason: Nausea and Vomiting Quetiapine Fumarate (Quetiapine Fumarate 100 Mg Tablet) 100 mg PO BEDTIME [facility] Last Admin: 01/28/24 20:43 Dose: 100 mg Documented By: JUAN Senna (Sennosides 8.6 Mg Tablet) 17.2 mg PO BEDTIME PRN PRN Reason: Constipation Simethicone (Simethicone 80 Mg Tab.Chew) 80 mg PO QID PRN PRN Reason: GAS Sodium Chloride (0.9 % Sodium Chloride Flush 3 Ml Syringe) 3 ml IVFLUSH QSHIFT [facility] Last Admin: 01/29/24 08:08 Dose: 3 ml Documented By: MATT Topiramate (Topiramate 100 Mg Tablet) 100 mg PO BID [facility] Last Admin: 01/29/24 08:08 Dose: 100 mg Documented By: MATT Tramadol HCl (Tramadol Hcl 50 Mg Tablet) 50 mg PO Q6H PRN PRN Reason: Pain, Moderate(Pain Scale 4-6) Last Admin: 01/29/24 05:11 Dose: 50 mg Documented By: JUAN Trazodone HCl (Trazodone Hcl 100 Mg Tablet) 100 mg PO BEDTIME PRN PRN Reason: sleep Valacyclovir HCl (Valacyclovir Hcl 500 Mg Tablet) 500 mg PO TID [facility] Last Admin: 01/29/24 08:07 Dose: 500 mg Documented By: MATT Vitamin D (Cholecalciferol (Vitamin D3) 25 Mcg Tablet) 25 mcg PO DAILY [facility] Last Admin: 01/29/24 08:07 Dose: 25 mcg Documented By: MATT Labs 01/28/24 06:05 01/28/24 06:05 Labs: Laboratory Results - last 24 hr 01/28/24 06:05 Anion Gap 12 Estim Creat Clear Calc 80.5 Estimated GFR > 60 Random Glucose 99 Calcium 8.9 D Microbiology Microbiology Results: Microbiology 01/27/24 16:52 Urine Culture - Final Urine clean catch - Urine yuan top Klebsiella pneumoniae 01/27/24 17:46 Blood Culture - Preliminary Blood - Venous No growth after 24 hours. 01/27/24 17:46 Blood Culture - Preliminary Blood - Venous No growth after 24 hours. Assessment and Plan (1) Herpes zoster: Status: Acute Plan 63F PMH hypothyroid, interstitial lung disease, ROB not on CPAP, COPD/asthma, mood disorder, coronary disease, fibromyalgia, lumbar degenerative disc disease presented with migraine headache, left shoulder pain, weakness. Found to have UTI. Orthostatic hypotension resolved Acute UTI due to esbl klebsiella change to meropenem, ID eval Migraine headache Continue Fioricet, Topamax Herpes zoster Continue Valtrex Topical Lidoderm Asthma/COPD/ILD Stable Hypothyroid Synthroid Obesity Weight loss recommended DVT prophylaxis with Lovenox Full Code reason for continued hospitalization: esbl uti Quality Stroke Does the patient have a stroke diagnosis?: No VTE Prior VTE?: No VTE Risk Level:: Medical - moderate - high VTE Device Contraindication: Treatment Not Indicated VTE Drug Contraindication: N/A - Med Ordered
[2024-01-29] MEDS: Sennosides 8.6 MG TABLET 17.2 MG PO ×2 (15:58→22:52)
--- NOTE | 2024-01-29 16:19 | MHC.CM.PN ---
EMR reviewed and per MD rounds, pt is not medically cleared for D/C due to management of UTI.
[2024-01-29] MEDS: Enoxaparin Sodium 40 MG/0.4 ML SYRINGE SUBCUT (18:24)
[2024-01-29] MEDS: QUEtiapine Fumarate 100 MG TABLET PO (22:50)
[2024-01-29] MEDS: Amitriptyline HCl 50 MG TABLET 100 MG PO (22:50)
--- NOTE | 2024-01-29 23:29 | P.CNID_ITS ---
History of Present Illness Data of Consult Service Date: 01/29/24 Requesting physician: Lee Flores Primary Care Provider: Farideh Marquez MD HPI Reason for consult: possible early sepsis,UTI Patient presents with weakness and found to have isolated blood pressure of 84/64. Her family is not sure she is taking medication correctly and have gabapentin and trazodone. She dosesnt mention any urinary symptoms such as hematuria. She has pyuria and ESBL Klebsiella in urine and is on Merem. I had seen her in similar circumstances two years ago where urinary infection could not be ruled out. Review of Systems 2 Review of Systems: Yes all other systems are reviewed and are negative PMFSH Past Medical History Medical History Pre-op evaluation RSV (acute bronchiolitis due to respiratory syncytial virus) Chest pain Palpitations URI (upper respiratory infection) Snoring Encounter for screening for malignant neoplasm of colon Well woman exam Physical exam Morbid obesity Lumbar pain Urinary incontinence Low blood pressure Allergic reaction UTI (urinary tract infection) Palpitations Morbid obesity with BMI of 40.0-44.9, adult Epigastric abdominal pain Oxygen dependent Hypothyroidism Hypersomnia ILD (interstitial lung disease) ROB on CPAP History of ESBL E. coli infection Obstructive sleep apnea Moderate recurrent major depression Urinary retention Acute and chronic respiratory failure with hypoxia COVID-19 Lupus (systemic lupus erythematosus) Polyarthralgia Neck mass Eosinophilia Severe asthma Asthma-COPD overlap syndrome Trigger finger of right hand Recurrent UTI Tachycardia Obesity Lumbar degenerative disc disease GERD (gastroesophageal reflux disease) Hemangioma Hypovitaminosis D Bipolar 1 disorder Depression with anxiety Insomnia COPD (chronic obstructive pulmonary disease) Family History Family History Father Prostate cancer Mother No problems noted. Sister Nasopharyngeal cancer Family history: reviewed and not pertinent Surgical History Surgical History Hx of hand surgery Hx of cardiac catheterization History of esophagogastroduodenoscopy (EGD) History of cystocele History of colonoscopy History of shoulder surgery History of carpal tunnel release History of hysterectomy History of section History of tonsillectomy Social History Social History Household Members: None Household Members Other:: 1 Housing: Apartment Do you presently have visiting nurse or other home services: Yes (Has [employer]MENT [employer]) Alcohol intake: never Comment: sleeping Patient Tobacco Use Status: Former Tobacco user Years Smoked: 14 +/- e-Cigarette/Vaping Use: Never Used Second Hand Smoke Exposure: No Advance Directives Date on File: 01/08/21 service: No Current occupational status: disabled Current occupation: right and left handed--- HAS [employer]MENT LE[employer] SERVICES Cognitive needs: Yes Hearing needs: No Vision needs: Yes Meds Allergies Allergy/AdvReac Type Severity Reaction Status Date / Time No Known Allergies Allergy Verified 12/20/23 15:55 Active Medications: Current Medications Acetaminophen (Acetaminophen 325 Mg Tablet) 650 mg PO Q6H PRN PRN Reason: Pain, Mild (Pain Scale 1-3) Last Admin: 01/29/24 15:02 Dose: 650 mg Albuterol Sulfate (Albuterol Sulfate (0.083%) 2.5 Mg/3 Ml Vial.Neb) 2.5 mg INHALE Q6H PRN PRN Reason: shortness of breath or wheezing Albuterol Sulfate (Albuterol Sulfate 90 Mcg 8 Gm Inhaler) 2 puff INHALE Q4H PRN PRN Reason: Wheezing Amitriptyline HCl (Amitriptyline Hcl 50 Mg Tablet) 100 mg PO BEDTIME [facility] Last Admin: 01/29/24 22:50 Dose: 100 mg Artificial Tears (Artificial Tears 15 Ml Drops) 1 drop EYE-BOTH BID PRN PRN Reason: dry eye(s) Atorvastatin Calcium (Atorvastatin Calcium 40 Mg Tablet) 40 mg PO DAILY [facility] Last Admin: 01/29/24 08:07 Dose: 40 mg Bupropion HCl (Bupropion Hcl Xl 300 Mg Tab.Er.24h) 300 mg PO DAILY [facility] Last Admin: 01/29/24 08:07 Dose: 300 mg Clonazepam (Clonazepam 1 Mg Tablet) 1 mg PO DAILY [facility] Last Admin: 01/29/24 08:08 Dose: 1 mg Cyclobenzaprine HCl (Cyclobenzaprine Hcl 10 Mg Tablet) 10 mg PO TID PRN PRN Reason: MUSCLE SPASMS Last Admin: 01/29/24 15:04 Dose: 10 mg Diphenhydramine HCl (Diphenhydramine Hcl 25 Mg Capsule) 25 mg PO BEDTIME PRN PRN Reason: sleep Last Admin: 01/29/24 22:50 Dose: 25 mg Docusate Sodium (Docusate Sodium 100 Mg Capsule) 100 mg PO BID [facility] Last Admin: 01/29/24 22:51 Dose: 100 mg Enoxaparin Sodium (Enoxaparin Sodium 40 Mg/0.4 Ml Syringe) 40 mg SUBCUT Q24H [facility] Last Admin: 01/29/24 18:24 Dose: 40 mg Fluticasone/Umeclidinium/Vilanterol (Fluticasone/Umeclidinium/Vilanterol 200/62.5/25 Blst.W.Dev) 1 puff INHALE RDAILY [facility] Last Admin: 01/29/24 08:07 Dose: 1 puff Gabapentin (Gabapentin 300 Mg Capsule) 300 mg PO BID [facility] Last Admin: 01/29/24 22:51 Dose: 300 mg Meropenem 1 gm/ Sodium (Chloride) 100 mls @ 200 mls/hr IV Q8H [facility] Last Infusion: 01/29/24 16:28 Dose: Infused Lamotrigine (Lamotrigine 100 Mg Tablet) 200 mg PO DAILY [facility] Last Admin: 01/29/24 08:07 Dose: 200 mg Levothyroxine Sodium (Levothyroxine Sodium 50 Mcg Tablet) 50 mcg PO DAILY@0600 [facility] Last Admin: 01/29/24 05:11 Dose: 50 mcg Lidocaine (Lidocaine 4 % Patch Adh..Patch) 1 patch TRANSDERMA DAILY [facility]; Protocol Last Admin: 01/29/24 08:08 Dose: 1 patch Loratadine (Loratadine 10 Mg Tablet) 10 mg PO DAILY PRN PRN Reason: allergy symptoms Non-Formulary Medication (Cromolyn) 1 drop EYE-BOTH 6XD [facility] Non-Formulary Medication (Lubiprostone) 24 mcg PO BID [facility] Omeprazole (Omeprazole 20 Mg Capsule.Dr) 20 mg PO BID@0630,1630 [facility] Last Admin: 01/29/24 15:02 Dose: 20 mg Ondansetron HCl (Ondansetron Hcl 4 Mg/2 Ml Vial) 4 mg IVPUSH Q8H PRN PRN Reason: Nausea and Vomiting Quetiapine Fumarate (Quetiapine Fumarate 100 Mg Tablet) 100 mg PO BEDTIME [facility] Last Admin: 01/29/24 22:50 Dose: 100 mg Senna (Sennosides 8.6 Mg Tablet) 17.2 mg PO BEDTIME PRN PRN Reason: Constipation Last Admin: 01/29/24 22:52 Dose: 17.2 mg Simethicone (Simethicone 80 Mg Tab.Chew) 80 mg PO QID PRN PRN Reason: GAS Sodium Chloride (0.9 % Sodium Chloride Flush 3 Ml Syringe) 3 ml IVFLUSH QSHIFT [facility] Last Admin: 01/29/24 15:04 Dose: 3 ml Topiramate (Topiramate 100 Mg Tablet) 100 mg PO BID [facility] Last Admin: 01/29/24 22:51 Dose: 100 mg Tramadol HCl (Tramadol Hcl 50 Mg Tablet) 50 mg PO Q6H PRN PRN Reason: Pain, Moderate(Pain Scale 4-6) Last Admin: 01/29/24 22:50 Dose: 50 mg Trazodone HCl (Trazodone Hcl 100 Mg Tablet) 100 mg PO BEDTIME PRN PRN Reason: sleep Valacyclovir HCl (Valacyclovir Hcl 500 Mg Tablet) 500 mg PO TID [facility] Last Admin: 01/29/24 22:50 Dose: 500 mg Vitamin D (Cholecalciferol (Vitamin D3) 25 Mcg Tablet) 25 mcg PO DAILY [facility] Last Admin: 01/29/24 08:07 Dose: 25 mcg Home Medications Medication Instructions Recorded Confirmed Last Taken Type oxygen-air delivery systems ##1 08/24/20 08/23/23 Unknown History topiramate 100 mg tablet 100 mg PO BID 07/13/22 01/27/24 Unknown History amitriptyline 100 mg tablet 100 mg PO BEDTIME 08/23/23 01/27/24 Unknown History bupropion HCl 300 mg 24 hr tablet, 300 mg PO DAILY 08/23/23 01/27/24 Unknown History extended release gabapentin 300 mg capsule 300 mg PO BID 12/20/23 01/27/24 Unknown History acetaminophen 325 mg tablet 325 mg PO QID PRN Pain 01/27/24 01/27/24 Unknown History benralizumab 30 mg/mL subcutaneous 30 mg subcut Q8W 01/27/24 01/27/24 12/05/23 History syringe (Fasenra) clonazepam 1 mg tablet 1 mg PO DAILY Anxiety 01/27/24 01/27/24 Unknown History cyclobenzaprine 10 mg tablet 10 mg PO TID PRN MUSCLE SPASMS 01/27/24 01/27/24 Unknown History docusate sodium 100 mg tablet 100 mg PO BID 01/27/24 01/27/24 Unknown History lamotrigine 200 mg tablet 200 mg PO DAILY 01/27/24 01/27/24 Unknown History pantoprazole 40 mg tablet,delayed 40 mg PO BID 01/27/24 01/27/24 Unknown History release quetiapine 50 mg tablet 50 - 100 mg PO BEDTIME 01/27/24 01/27/24 Unknown History rosuvastatin 10 mg tablet 10 mg PO DAILY 01/27/24 01/27/24 Unknown History simethicone 125 mg tablet 125 mg PO QID PRN GAS 01/27/24 01/27/24 Unknown History tramadol 50 mg tablet 50 mg PO Q6H PRN Pain 01/27/24 01/27/24 Unknown History valacyclovir 500 mg tablet 500 mg PO TID 01/27/24 01/27/24 Unknown History Physical Exam 2 Vital Signs: Vital Signs: Last Vital Signs Temp 97.1 F 01/29/24 19:26 Pulse 107 H 01/29/24 19:26 Resp 22 H 01/29/24 19:26 BP 126/74 01/29/24 19:26 Pulse Ox 99 01/29/24 19:26 O2 Del Method Room Air 01/29/24 19:26 BMI result Body Mass Index 39.5 Const: General: cooperative HEENT: Head: Yes normal to inspection Face and sinus: Yes normal facial exam Mouth: Normal oral and palatal mucosa present Teeth and gingiva: d entition normal Eyes: General: appearance normal, both eyes and all related structures P upils: Equal, round and reactive pupils present Resp: Effort & Inspection: normal respiratory effort Cardio: Rate: regular rate Rhythm: regular rhythm GI: Palpation (GI): Soft to palpation and nontender : General: Yes no CVA tenderness Back/Spine/Pelvis: Back: no CVA tenderness Skin: General skin exam: no rashes or lesions noted Neuro: General: moves all extremities Cranial nerves: Yes Equal, round and reactive pupils present Extrem: Other: left scabbed herpes zoster C5 Psych: Other: rather sleepy Results Labs 01/28/24 06:05 01/28/24 06:05 Microbiology Microbiology Results: Microbiology 01/27/24 17:46 Blood - Venous Blood Culture - Preliminary No growth after 48 hours. 01/27/24 17:46 Blood - Venous Blood Culture - Preliminary No growth after 48 hours. 01/27/24 16:52 Urine clean catch - Urine yuan top Urine Culture - Final Klebsiella pneumoniae Assessment and Plan (1) Herpes zoster: Status: Acute (2) Acute UTI: Status: Acute (3) Orthostatic hypotension: Status: Acute Plan She may have urinary infection leading to hypotension and early sepsis. She is on Merem Would give 7 days IV Ertapenem on discharge.
[2024-01-30] MEDS: 0.9 % Sodium Chloride Flush 3 ML SYRINGE IVFLUSH ×3 (02:29→16:05)
[2024-01-30 03:17] VITALS: BP 111/58; PULSE 104; RESP 20; TEMP 36.2; O2SAT 96
[2024-01-30] MEDS: Levothyroxine Sodium 50 MCG TABLET PO (05:46)
[2024-01-30] MEDS: traMADoL HCL 50 MG TABLET PO (05:46)
[2024-01-30] MEDS: Omeprazole 20 MG CAPSULE.DR PO ×2 (05:46→15:54)
[2024-01-30] MEDS: Cyclobenzaprine HCl 10 MG TABLET PO (05:47)
[2024-01-30] MEDS: Fluticasone/Umeclidinium/Vilanterol 200/62.5/25 BLST.W.DEV 1 PUFF INHALE (07:57)
[2024-01-30 07:58] VITALS: PULSE 103; RESP 18; O2SAT 98
[2024-01-30 08:00] VITALS: BP 118/75; PULSE 100; RESP 16; TEMP 36.5; O2SAT 99
[2024-01-30] MEDS: Cholecalciferol (Vitamin D3) 25 MCG TABLET PO (08:39)
[2024-01-30] MEDS: clonazePAM 1 MG TABLET PO (08:40)
[2024-01-30] MEDS: lamoTRIgine 100 MG TABLET 200 MG PO (08:40)
[2024-01-30] MEDS: Atorvastatin Calcium 40 MG TABLET PO (08:40)
[2024-01-30] MEDS: Topiramate 100 MG TABLET PO (08:40)
[2024-01-30] MEDS: Docusate Sodium 100 MG CAPSULE PO (08:40)
[2024-01-30] MEDS: valACYclovir HCL 500 MG TABLET PO ×2 (08:40→15:54)
[2024-01-30] MEDS: buPROPion HCl XL 300 MG TAB.ER.24H PO (08:40)
[2024-01-30] MEDS: Gabapentin 300 MG CAPSULE PO (08:40)
[2024-01-30] MEDS: Lidocaine 4 % Patch ADH..PATCH 1 PATCH TRANSDERMA (08:41)
[2024-01-30 11:25] VITALS: BP 124/79; PULSE 104; RESP 16; TEMP 37.6; O2SAT 98
--- NOTE | 2024-01-30 12:59 | P.F2F_ITS ---
Service Date Service Date: 01/30/24 Encounter Date of encounter: 01/30/24 Reasons for Services Signs and symptoms assessed: headaches Reason for group home: medication management, medication treatment and teach disease management Homebound: Leaving the home is medically contraindicated at this time without the asist of a device and/or another person due th the listed conditions above and below. Reason homebound: unsteady gait / fall risk Certification: Based on the above findings, I certify that this patient is confined to the home and needs intermittent group home care, physical therapy and/or speech therapy, or continues to need occupational therapy. The patient is under my care, and I have initiated the establishment of the plan of care. The patient will be followed by a physician who will periodically review the plan of care. Time Spent With Patient Time: Total time managing care of this patient today ____ minutes.
--- NOTE | 2024-01-30 13:00 | PM.DS ---
DS: Providers Provider Date of Service: 01/30/24 Date of admission: 01/30/24 09:08 Primary care physician: Farideh Marquez MD Consults: 01/29/24 09:19 Consult to Infectious Diseases Routine Consulting Provider: [facility] [place] Infectious Disease Reason for consultation: esbl uti DS: Diagnosis Discharge Diagnosis (1) Herpes zoster: Status: Acute (2) Acute UTI: Status: Acute (3) Orthostatic hypotension: Status: Acute DS: Summary Hospital Course Hospital Course: from initial hpi: 63-year-old female with history of hypothyroidism, interstitial lung disease, ROB not on CPAP, asthma/COPD overlap, mood disorder, coronary artery disease, fibromyalgia, lumbar degenerative disc disease, and recurrent UTIs presents to the ED earlier today for evaluation of an occipital headache with pain radiating into the left side of the face. The patient is a vague historian and is known to have chronic encephalopathy related to psychiatric conditions, lupus. Reports vision changes describes as a whoosh but unable to elaborate despite use of indonesian interpretor. Denies blurred vision, double vision, vision loss. She also presented for evaluation of LUE pain. Had recent surgery on left shoulder 01/03 and subsequently developed shingles on right upper chest/upper back diagnosed 01/23 on valtrex. The rash is painful. She was found by daughter at home and was noted to be weak and blood pressure was reportedly 80s/40s. The daughter expresses concern that she has not taking her medications appropriately as medications from the other day were not taken at all. She denies focal weakness, paresthesias, slurred speech, facial droop, dysphagia, gait imbalance, lightheadedness, urinary symptoms, palpitations, sob, chest pain. In the ED, orthostatic vital signs reported as positive with limited improvement following 1L IVF. Hematology studies unremarkable. Renal function electrolyte levels normal. Lactic acid 1.8. Urinalysis significant for 3+ leukocytes, positive nitrites, trace blood, positive urinary sediment, 4+ bacteria. Negative for flu, COVID, RSV. EKG shows sinus tachycardia, rate 103 with incomplete right bundle branch block, no significant ST/T-wave abnormality. In the ED, given 1 g IV ceftriaxone and 1 L IV NS. hospital course: Patient was admitted for orthostatic hypotension which resolved with IV fluids. She also noted to have acute UTI. Initially treated with ceftriaxone but culture grew ESBL Klebsiella. Was seen by infectious disease who recommended 1 week of ertapenem. Patient had midline placed and will complete treatment at home. For migraine headache was continued on Fioricet and Topamax with some improvement. CT head was unremarkable. If persists should follow up with Neurology. For herpes zoster was continued on Valtrex and had improvement with Lidoderm topical. For asthma/COPD/RLD she remained stable. For hypothyroidism was continued on Synthroid. For obesity weight loss recommended. Patient is feeling better will be discharged home. Time Attestation Discharge Coordination Time (in mins): 35 Quality: Safe Use of Opioids Does Pt have an Active Cancer Diagnosis on the Problem List?: No Quality: Stroke Does the patient have a stroke diagnosis?: No Physical Exam Vital Signs: Vital Signs: Last Vital Signs Temp 99.7 F 01/30/24 11:25 Pulse 104 H 01/30/24 11:25 Resp 16 01/30/24 11:25 BP 124/79 01/30/24 11:25 Pulse Ox 98 01/30/24 11:25 O2 Del Method Room Air 01/30/24 11:25 BMI result Body Mass Index 39.5 Const: General: cooperative HEENT: Head: Yes normal to inspection Face and sinus: Yes normal facial exam Mouth: Normal oral and palatal mucosa present Teeth and gingiva: dentition normal Eyes: General: appearance normal, both eyes and all related structures Pupils: Equal, round and reactive pupils present Resp: Effort & Inspection: normal respiratory effort Cardio: Rate: regular rate Rhythm: regular rhythm GI: Palpation (GI): Soft to palpation and nontender : General: Yes no CVA tenderness Back/Spine/Pelvis: Back: no CVA tenderness Skin: General skin exam: no rashes or lesions noted Neuro: General: moves all extremities Cranial nerves: Yes Equal, round and reactive pupils present Extrem: Other: left scabbed herpes zoster C5 Psych: Other: rather sleepy DS: Data Data Completed and Pending Completed studies during hospitalization [Text1]: Procedures Insertion of Infusion Device into Right Cephalic Vein, Percutaneous Approach (01/21/21) Labs on day of discharge: Preliminary micro results at discharge 01/27/24 17:46 Blood Culture - Preliminary Blood - Venous No growth after 48 hours. 01/27/24 17:46 Blood Culture - Preliminary Blood - Venous No growth after 48 hours. Discharge Plan Discharge Anticipated Discharge Date/Time: 01/30/24 12:46 Patient Disposition: Home Health Service Discharge Diagnosis: migraine, orthostatic, uti Referrals: Physician,Unknown J [Physician] - 1 Week Discharge Medications: New ertapenem 1 gram recon soln 1 g IV DAILY Qty: 6 0RF Continued (DME) shower seat See Rx Instructions .Route .MEDSUPPLY Qty: 1 0RF Rx Instructions: As directed (DME) miscellaneous medical supply [facility] See Rx Instructions .ROUTE .MEDSUPPLY Qty: 1 0RF Rx Instructions: OVERBED TABLE (DME) electric wheelchair See Rx Instructions .Route .MEDSUPPLY Qty: 1 0RF Rx Instructions: As directed (DME) wheeled table with drawers See Rx Instructions .Route .MEDSUPPLY Qty: 1 0RF Rx Instructions: As directed albuterol sulfate 2.5 mg /3 mL (0.083 %) solution for nebulization 2.5 mg inhalation Q6H PRN (Reason: shortness of breath or wheezing) 30 Days Qty: 180 11RF (DME) flushable wipes See Rx Instructions .Route .MEDSUPPLY Qty: 240 6RF Rx Instructions: As directed (DME) disposable gloves [Biobrane Gloves Large] Mis See Rx Instructions .Route Qty: 200 6RF Rx Instructions: As directed (DME) underpads [Bed Underpads] Pad See Rx Instructions .Route Qty: 100 6RF Rx Instructions: As directed (DME) adult diapers pull-ups 2Xlarge See Rx Instructions .Route .MEDSUPPLY Qty: 240 6RF Rx Instructions: As directed trazodone 100 mg tablet 100 mg PO BEDTIME PRN (Reason: sleep) 90 Days Qty: 90 0RF cetirizine 10 mg tablet 10 mg PO DAILY PRN (Reason: allergy symptoms) 90 Days Qty: 90 1RF cholecalciferol (vitamin D3) [Vitamin D3] 25 mcg (1,000 unit) capsule 25 mcg PO DAILY Qty: 30 1RF (DME) nebulizers [AeroEclipse II Nebulizer] [facility] See Rx Instructions .Route Qty: 1 0RF Rx Instructions: As directed lubiprostone 24 mcg capsule 24 mcg PO BID Qty: 180 3RF levothyroxine 50 mcg tablet 50 mcg PO DAILY@0630 Qty: 90 0RF (DME) recliner with power buttons See Rx Instructions .Route .MEDSUPPLY Qty: 1 0RF Rx Instructions: As directed cromolyn 4 % drops 1 drp ophthalmic (eye) 6XD 30 Days Qty: 10 1RF cyclobenzaprine 10 mg tablet 10 mg PO TID PRN (Reason: MUSCLE SPASMS) acetaminophen 325 mg tablet 325 mg PO QID PRN (Reason: Pain) lamotrigine 200 mg tablet 200 mg PO DAILY valacyclovir 500 mg tablet 500 mg PO TID tramadol 50 mg tablet 50 mg PO Q6H PRN (Reason: Pain) pantoprazole 40 mg Tablet,Delayed Release (Dr/Ec) 40 mg PO BID simethicone 125 mg Tablet 125 mg PO QID PRN (Reason: GAS) docusate sodium 100 mg Tablet 100 mg PO BID quetiapine 50 mg Tablet 50 - 100 mg PO BEDTIME Fasenra 30 mg/mL syringe 30 mg subcut Q8W clonazepam 1 mg tablet 1 mg PO DAILY rosuvastatin 10 mg tablet 10 mg PO DAILY (DME) oxygen-air delivery systems Device See Rx Instructions .ROUTE .MEDSUPPLY Qty: 1 Rx Instructions: As directed albuterol sulfate 90 mcg/actuation HFA aerosol inhaler 2 puff inhalation Q4H PRN (Reason: Wheezing) Qty: 8.5 11RF gabapentin 300 mg capsule 300 mg PO BID carboxymethylcellulose sodium 0.5 % dropperette 1 drp ophthalmic (eye) BID PRN (Reason: dry eye(s)) 30 Days Qty: 30 2RF diphenhydramine HCl [Banophen] 25 mg capsule 25 mg PO BEDTIME PRN (Reason: sleep) Qty: 30 0RF topiramate 100 mg tablet 100 mg PO BID (DME) blood pressure kit-extra large Kit See Rx Instructions .Route Qty: 1 0RF Rx Instructions: As directed amitriptyline 100 mg tablet 100 mg PO BEDTIME bupropion HCl 300 mg tablet extended release 24 hr 300 mg PO DAILY Trelegy Ellipta 200-62.5-25 mcg blister with device 1 inh inhalation DAILY 30 Days Qty: 60 12RF Discharge Orders: Discharge Order (Routine); Ordered 01/30/24 Ordered By: Lee Flores Diet: Advance to usual diet Activity on Discharge: As tolerated Stand Alone Forms: Patient Portal Discharge page Care Plan Goals: recovery Health Concerns: uti - esbl Plan of Treatment: 6 more days ertapenem Assessment: see above
[2024-01-30] MEDS: Ertapenem Sodium 1 GM in 0.9 % Sodium Chloride 50 ML IV (13:25)
--- NOTE | 2024-01-30 15:28 | MHC.CM.PN ---
IMM 01/30/24 Patient is discharged to home with IV Ertapenem x 7 days. [facility] and [facility] are providing home services. Patient did well with the Infusion education per [facility]. Patient will transport via BLS.
--- NOTE | 2024-01-30 15:33 | MHC.CM.PN ---
IMM 01/30/24, Pt has been medically cleared for DC, she will go home via ambulance, and have home care services from [facility] home infusion and [facility].
[2024-01-30 16:00] VITALS: BP 124/77; PULSE 101; RESP 16; TEMP 36.6; O2SAT 97
--- NOTE | 2024-01-30 16:03 | HO.MIDLINE_ITS ---
Midline Insertion MIDLINE INSERTION Diagnosis: UTI Indication: []1 wk of ABT Pertinent Labs: Reviewed Technique: Using sterile technique including cap and mask, glove and drape, the right arm was prepped and draped in the usual sterile fashion of full barrier technique with CHG. Using ultrasound guidance, right basilic vein access was obtained . 20G x8cm non PASV PowerGlide ST midlineline catheter was positioned. The procedure was performed in rm 272. Ultrasound was used to document vein patency and for needle entry. A formal ultrasound picture was recorded. Vascular Functional Support Analyst has released the line for use and it is currently dressed with a StatLock, Tegaderm, and CHG disc. Verification has been performed for blood return and line patency. Arm Circumference: 36cm Equipment: BARD PerGlide ST Midline Catheter Catheter Type: 20G x 8cm non PASV catheter Lot #: [id number]
== END 2024-01-30 16:39 | disposition home health service (06) | DRG 690 ==
LOC: HO.ED 17:32 → HO.EDOVER 18:57 → HO.IMC 19:21
PROVIDERS: Physician Assistant; Physician Assistant Medical; Admitting Provider Physician Assistant; Emergency Provider Student in an Organized Health Care Education/Training Program; PCP Internal Medicine; Visit Provider Internal Medicine
DX: N39.0 Urinary tract infection, site not specified (principal); Z16.12 Extended spectrum beta lactamase (ESBL) resistance; I95.1 Orthostatic hypotension; B02.9 Zoster without complications; G43.909 Migraine, unspecified, not intractable, without status migrainosus; F39 Unspecified mood [affective] disorder; G47.33 Obstructive sleep apnea (adult) (pediatric); B96.1 Klebsiella pneumoniae [K. pneumoniae] as the cause of diseases classified elsewhere; Z71.3 Dietary counseling and surveillance; E03.9 Hypothyroidism, unspecified; J44.9 Chronic obstructive pulmonary disease, unspecified; E66.9 Obesity, unspecified; Z68.39 Body mass index [BMI] 39.0-39.9, adult; Z20.822 Contact with and (suspected) exposure to COVID-19; Z87.440 Personal history of urinary (tract) infections; Z87.891 Personal history of nicotine dependence; Z79.51 Long term (current) use of inhaled steroids; Z79.890 Hormone replacement therapy; Z79.899 Other long term (current) drug therapy
CPT/HCPCS: 0241U; 36410; 36415; 70450; 80048; 80076; 81001; 81003; 83605; 83735; 85025; 87040; 87086; 87088; 87186; 93005; 94640; 99285; J0696; J1335; J1650; J2185

== ENCOUNTER → 2024-01-27 16:01 | Outpatient (BNV) | payer OTHER, SELFPAY | PROVIDERS: Admitting Provider Physician Assistant; Emergency Provider Student in an Organized Health Care Education/Training Program; Visit Provider Internal Medicine Cardiovascular Disease | DX: R53.1 Weakness (principal) | CPT/HCPCS: 93010 ==

== ENCOUNTER → 2024-01-27 18:25 | Outpatient (BNV) | payer OTHER, SELFPAY | PROVIDERS: Admitting Provider Physician Assistant; Emergency Provider Student in an Organized Health Care Education/Training Program; PCP Internal Medicine; Visit Provider Internal Medicine | DX: B02.9 Zoster without complications (principal); N39.0 Urinary tract infection, site not specified; I95.1 Orthostatic hypotension | CPT/HCPCS: 99222 ==

== ENCOUNTER → 2024-01-27 18:25 | Outpatient (BNV) | payer OTHER, SELFPAY | PROVIDERS: Admitting Provider Physician Assistant; Emergency Provider Student in an Organized Health Care Education/Training Program; Visit Provider Physician Assistant | DX: B02.9 Zoster without complications (principal); N39.0 Urinary tract infection, site not specified; I95.1 Orthostatic hypotension | CPT/HCPCS: 99223; 99232; 99239; G0180 ==

== ENCOUNTER 2024-01-31 14:25 | Outpatient (AMB) | payer OTHER, SELFPAY ==
[2024-01-31 14:27] VITALS: BP 132/70; PULSE 111; O2SAT 98; BMI 38.8
--- NOTE | 2024-01-31 14:27 | A.OFFPC_ITS ---
Vital Signs 01/31/24 14:27 Height 5 ft 3 in Weight 99.337 kg BMI 38.8 BP 132/70 Blood Pressure Location Lt brachial Position Sitting Pulse 111 H Pulse Source Pulse Oximeter Pulse Oximetry (%) 98 Oxygen Delivery Method Room Air Intake [place] [facility] [place] Weighmaster Required: Yes Internal Control Consultant: Present Accompanied by: Daughter Allergies No Known Allergies Allergy (Verified 01/31/24 14:28) Tobacco use date assessed: 12/20/23 Fall risk assessment: No Falls in past year Last assessed Fall Risk: 01/31/24 Dental Screening Dental Screen Date: 12/20/23 HPI HPI Comments History of Present Illness Details 63-year-old female with history of hypot hyroidism, interstitial lung disease, ROB not on CPAP, asthma/COPD overlap, mood disorder, coronary artery disease, fibromyalgia, lumbar degenerative disc disease, and recurrent UTIs presents to the office for hospital discharge follow-up accompanied by her BUSINESS SYSTEMS ANALYST, Tiny. Hospital discharge medications reviewed and reconciled. She was initially admitted from 01/17-01/23 to [facility] due to severe left shoulder pain with herpes zoster noted with positive varicella PCR. She was started on valacyclovir. Shingles lesions were crusted over on discharge. She was advised to continue on Valtrex and also given Flexeril, tramadol as needed. She was then admitted to [facility] from 01/26 01/29 for management UTI with orthostatic hypotension which responded well to IV fluids. Urine culture grew ESBL Klebsiella and she was seen by infectious disease recommending 1 week of ertapenem. She had midline placed and was advised to complete treatment at home. She was continued on Valtrex for herpes zoster and was also started on gabapentin. She also improved with Lidoderm topical. Medications reviewed for polypharmacy. Patient is on multiple sedating medications including Flexeril, tramadol, gabapentin, clonazepam. Discussed that Flexeril is not typically prescribed for herpes zoster pain. Would likely benefit from ongoing treatment with gabapentin and tramadol only as needed. She also states she has not been taking clonazepam twice daily and typically only uses this once daily as needed. We will also change trazodone to p.r.n. and decreased to 100 mg nightly. [facility] Medical History Pre-op evaluation RSV (acute bronchiolitis due to respiratory syncytial virus) Chest pain Palpitations URI (upper respiratory infection) Snoring Encounter for screening for malignant neoplasm of colon Well woman exam Physical exam Morbid obesity Lumbar pain Urinary incontinence Low blood pressure Allergic reaction UTI (urinary tract infection) Palpitations Morbid obesity with BMI of 40.0-44.9, adult Epigastric abdominal pain Oxygen dependent Hypothyroidism Hypersomnia ILD (interstitial lung disease) ROB on CPAP History of ESBL E. coli infection Obstructive sleep apnea Moderate recurrent major depression Urinary retention Acute and chronic respiratory failure with hypoxia COVID-19 Lupus (systemic lupus erythematosus) Polyarthralgia Neck mass Eosinophilia Severe asthma Asthma-COPD overlap syndrome Trigger finger of right hand Recurrent UTI Tachycardia Obesity Lumbar degenerative disc disease GERD (gastroesophageal reflux disease) Hemangioma Hypovitaminosis D Bipolar 1 disorder Depression with anxiety Insomnia COPD (chronic obstructive pulmonary disease) Surgical History Hx of hand surgery Hx of cardiac catheterization History of esophagogastroduodenoscopy (EGD) History of cystocele History of colonoscopy History of shoulder surgery History of carpal tunnel release History of hysterectomy History of section History of tonsillectomy Family History Father Prostate cancer Mother No problems noted. Sister Nasopharyngeal cancer Social History Household Members: None Household Members Other:: 1 Housing: Apartment Do you presently have visiting nurse or other home services: Yes (Has BUSINESS SYSTEMS ANALYST) Alcohol intake: never Comment: sleeping Patient Tobacco Use Status: Former Tobacco user Years Smoked: 14 +/- e-Cigarette/Vaping Use: Never Used Second Hand Smoke Exposure: No Advance Directives Date on File: 01/08/21 service: No Current occupational status: disabled Current occupation: right and left handed--- HAS BUSINESS SYSTEMS ANALYST SERVICES Cognitive needs: Yes (walker ) Hearing needs: No Vision needs: Yes Female Reproductive History Menstrual Age of Menarche: 12 Questionnaire Thrive Questionnaire Date Thrive assessed: 01/28/24 DAO-7 AMB Questionnaire DAO-7 Date DAO - 7 assessed: 12/20/23 Source: Developed by Drs. Power Thornton, Melissa Peñaloza, Master Grijalva and colleagues, with an educational sudhir from [employer]. Review of Systems Const All systems reviewed & are unremarkable except as noted in HPI and below Physical exam (Primary Care) Vital Signs: Last Vital Signs Pulse 111 H 01/31/24 14:27 BP 132/70 01/31/24 14:27 Pulse Ox 98 01/31/24 14:27 Oxygen Delivery Method Room Air 01/31/24 14:27 BMI result Body Mass Index 38.8 Tobacco/Smoking Status: Tobacco use Status Tobacco use date assessed 12/20/23 01/31/24 14:29 Patient Tobacco Use Status Former Tobacco user 01/31/24 14:29 Tobacco use type 07/15/23 11:19 e-Cigarette/Vaping Use Never Used 01/31/24 14:29 Thrive Assessment: Date of Thrive Assessment Date Thrive assessed 01/28/24 01/31/24 14:29 Const Other: Constitutional - Awake and Alert, No apparent distress Eyes - PERRLA, EOMI Cardiovascular - S1S2, RRR, No edema Respiratory - Normal lung expansion, Normal respiratory effort, No respiratory distress, CTA bilaterally Extremities - no calf tenderness bilaterally, no swelling Skin - Warm/Dry. Scabbed pustules L should, no open or weeping lesions. NO new pustules Neurological - Alert & oriented x3 Psychological - Appropriate affect Results Reviewed Results Reviewed: CBC, BMP, varicella PCR, [facility] [place] [facility], Infectious Disease consult, [facility] discharge summary, [facility] discharge summary Assessment and Plan Assessment & Plan (1) Herpes zoster: Code(s): B02.9 - Zoster without complications Plan: Completed course of Valtrex. Herpes zoster lesions are scabbed over without any new or weeping lesions. She does continue with neuropathic pain related to acute herpes zoster infection. Would not classify as post herpetic neuralgia at this time. Recommend discontinuing Flexeril as she is less likely to benefit from this and given combination of sedating medications will discontinue. She can continue gabapentin 300 mg twice daily and tramadol 50 mg only as needed. She is prescribed lidocaine ointment to use as needed throughout the day. (2) Acute UTI: Code(s): N39.0 - Urinary tract infection, site not specified Plan: Urine culture grew ESBL Klebsiella. Complete 7 day course meropenem and discontinue midline. Has VNA at home who will continue in the house to administer meropenem. (3) Polypharmacy: Code(s): Z79.899 - Other remote computer terminal operator (current) drug therapy Plan: Patient on multiple sedating medications as noted in HPI. Clonazepam decreased to 1 mg daily as needed. Continue gabapentin 300 mg twice daily. Use tramadol 50 mg every 6 hours only as needed for severe pain. Discontinue Flexeril. Decrease trazodone to 100 mg and use only as needed for insomnia if Seroquel 50- 100 mg is ineffective. Follow-up with Psychiatry Medications: New 2 lidocaine HCl 4% (AsperFlex (lidocaine HCl)) use 1-2 inch ointment and apply up to 3 times daily on L shoulder topically; 100 grams 0RF herpes zoster Coding Level of Care Code Tele Est Pt Level 5 (34184) Diagnoses Herpes zoster B02.9 Acute UTI N39.0 Polypharmacy Z79.899 Time Spent (min) 45 Comment time spent reviewing above, interview/exam, documentation time
== END 2024-01-31 15:14 | disposition home or self-care (01) ==
PROVIDERS: PCP Internal Medicine; Visit Provider Physician Assistant
DX: B02.9 Zoster without complications (principal); N39.0 Urinary tract infection, site not specified; Z79.899 Other long term (current) drug therapy
CPT/HCPCS: 99215

== ENCOUNTER 2024-02-14 15:09 | Outpatient (REF) | payer OTHER, SELFPAY | END 2024-02-14 15:10 | disposition home or self-care (01) | LOC: HO.MAMMO 15:09 | PROVIDERS: PCP Internal Medicine; Visit Provider Internal Medicine | DX: Z12.31 Encounter for screening mammogram for malignant neoplasm of breast (principal) | CPT/HCPCS: 77063; 77067 ==

== ENCOUNTER → 2024-02-14 15:15 | Outpatient (BNV) | payer OTHER, SELFPAY | PROVIDERS: PCP Internal Medicine; Visit Provider Radiology Diagnostic Radiology | DX: Z12.31 Encounter for screening mammogram for malignant neoplasm of breast (principal) | CPT/HCPCS: 77063; 77067 ==

== ENCOUNTER 2024-03-26 14:38 | Outpatient (AMB) | payer OTHER, SELFPAY ==
[2024-03-26 14:42] VITALS: PULSE 89; O2SAT 97; BMI 40.2
--- NOTE | 2024-03-26 14:42 | MHC.OFFVIS ---
Vital Signs 03/26/24 14:42 Height 5 ft 1 in Weight 213 lb BMI 40.2 Pulse 89 Pulse Source Pulse Oximeter Pulse Oximetry (%) 97 Oxygen Delivery Method Room Air Intake Visit Reasons: asthma Correspondence Coordinator Required: No Allergies No Known Allergies Allergy (Verified 03/26/24 14:45) HPI Comments Details: The patient is a 64-year-old woman with a known history of Asthma COPD in addition to obstructive sleep apnea and respiratory failure oxygen, who recently moved to to the [facility] from [place]. Upon moving to [place], after few weeks she ended up with worsening respiratory status and she was admitted to [facility] with a COPD exacerbation and also possibility of pneumonia. She did undergo a CT scan of the chest demonstrating areas of atelectasis scarring also demonstrated hyperexpansion of the lungs. She has significant morbid obesity as well. The patient was treated and subsequently released. She has been using her rescue inhaler often. She typically uses Xopenex due to tachyarrhythmias. She responded well to Trelegy in the past. She also has a history of sleep apnea. However, since [facility] has not been able to use 1. She continues to have daytime drowsiness. Her Alexandria score is elevated 12/24. The patient also has multiple complaints including significant rashes in the chin is the eyes. In the office we did take her for brief walking oximetry. She quickly desaturated to 87% heart rate increased to the 130s 40s-1 appears to be an SVT. The patient is pretty symptomatic a mario score 8/10. At 2 L the patient's oxygen improved to 97%. She will continue using oxygen with activity and also sleep. She still having issues with heart rate being elevated also is feeling tired and drowsy. We did review her sleep study demonstrating moderate sleep apnea. The patient does have significant issues with tachycardia and also hypoxia and sleep study. I did recommed she undergo a titration study at the hospital. In the meantime she can use the oxygen at home. Will set her up with an auto APAP at this time. Will also try to keep her on the oxygen and possible. When she situated with the CPAP will have to do an overnight oximetry to see if she is getting enough oxygenation. She continues use her respiratory therapy with good effect. She still waiting for echo. Currently on hold because of the circumstances. It appears that her white count is demonstrate significant eosinophilia suggesting eosinophilic induced asthma exacerbations and also the possibility of eosinophilic pneumonia. The patient at this point has been failing in aggressive respiratory regimen and she also has been on multiple courses of corticosteroid therapy. For this reason the patient will be a great candidate for L5 inhibitors,Fasenra in noted to improve her asthma control and also decrease the prednisone use. She continues use the oxygen with good effect. 10/24/2023 the patient is here for sick visit. Apparently she started developing worsening chest tightness wheezing cough. She could not tolerate the symptoms any longer and she was brought to the ER. She tested positive for RSV just yesterday. The patient was given Solu-Medrol and then discharged on prednisone. Her cough is congested. Moderate severity with yellow sputum. Positive sick contacts in the family. She has been using her respiratory therapy with good effect initially but now does not seem to be helping as much. She does have a nebulizer available. I did look at her x-ray did not demonstrate any acute disease which is reassuring. Will go ahead and have her start prednisone although she only got prednisone for 5 days so I will give her a prescription on paper that therefore she can continue. She will also start a course of doxycycline to treat her for postviral bacterial infections. She will monitor closely her asthma symptoms. She also has oxygen at home. If she notices that her oxygen levels are dropping even further then she may need to go back to the ER. 03/26/2024 the patient is here for pulmonary follow-up visit. Overall her breathing is better. The patient did have shoulder surgery after she is started developing shingles over the left shoulder area. She has been following closely with Infectious Disease. She has not significant post herpetic neuralgia. She will try using the Lidoderm patches over the chest area to try to minimize symptoms. In addition to that she continues use her respiratory medications with good effect. She has not had to use any rescue medicine or prednisone which is reassuring. The patient also has been having difficulty at nighttime because of this pain discomfort due to the post herpetic neuralgia. She does have oxygen available and she can use use the oxygen for now until she gets more comfortable. When she is more comfortable we can have her restart using the CPAP. [facility] Medical History Pre-op evaluation RSV (acute bronchiolitis due to respiratory syncytial virus) Chest pain Palpitations URI (upper respiratory infection) Snoring Encounter for screening for malignant neoplasm of colon Well woman exam Physical exam Morbid obesity Lumbar pain Urinary incontinence Low blood pressure Allergic reaction UTI (urinary tract infection) Palpitations Morbid obesity with BMI of 40.0-44.9, adult Epigastric abdominal pain Oxygen dependent Hypothyroidism Hypersomnia ILD (interstitial lung disease) ROB on CPAP History of ESBL E. coli infection Obstructive sleep apnea Moderate recurrent major depression Urinary retention Acute and chronic respiratory failure with hypoxia COVID-19 Lupus (systemic lupus erythematosus) Polyarthralgia Neck mass Eosinophilia Severe asthma Asthma-COPD overlap syndrome Trigger finger of right hand Recurrent UTI Tachycardia Obesity Lumbar degenerative disc disease GERD (gastroesophageal reflux disease) Hemangioma Hypovitaminosis D Bipolar 1 disorder Depression with anxiety Insomnia COPD (chronic obstructive pulmonary disease) Surgical History Hx of hand surgery Hx of cardiac catheterization History of esophagogastroduodenoscopy (EGD) History of cystocele History of colonoscopy History of shoulder surgery History of carpal tunnel release History of hysterectomy History of section History of tonsillectomy Family History Father Prostate cancer Mother No problems noted. Sister Nasopharyngeal cancer Social History Household Members: None Household Members Other:: 1 Housing: Apartment Do you presently have visiting nurse or other home services: Yes (Has [employer]) Alcohol intake: never Comment: sleeping Patient Tobacco Use Status: Former Tobacco user Years Smoked: 14 +/- e-Cigarette/Vaping Use: Never Used Second Hand Smoke Exposure: No Advance Directives Date on File: 01/08/21 service: No Current occupational status: disabled Current occupation: right and left handed--- HAS COMPLIANCE [employer] SERVICES Cognitive needs: Yes (walker ) Hearing needs: No Vision needs: Yes Female Reproductive History Menstrual Age of Menarche: 12 Review of Systems Const Reports body aches, Reports fatigue, Reports lethargy and Reports malaise Eyes Reports no additional complaints, Denies change in vision, Reports itchy eyes and Denies other visual disturbances ENT Reports dysphagia and Reports dizziness Card Denies chest pain at rest, Denies chest pain with activity, Denies edema, Denies irregular heart rhythm, Denies claudication, Denies dyspnea, Reports dyspnea on exertion, Denies orthopnea, Denies paroxysmal nocturnal dyspnea and Denies slow heart rate Resp Reports change in phlegm color, Reports chest congestion, Reports cough, Denies dyspnea, Reports dyspnea on exertion and Reports wheezing GI Denies abdominal pain, Reports dysphagia, Denies excessive flatus, Reports dyspepsia, Reports heartburn, Denies nausea and Denies vomiting Denies urinary incontinence, Denies urinary hesitancy and Denies urinary urgency Musc Reports abnormal gait, Denies atrophy, Denies deformity, Reports arthralgias and Denies limited range of motion Neuro Reports abnormal gait, Denies confusion and Reports dizziness Psych Denies confusion Endo Reports fatigue Aller/Immun Reports itchy eyes and Reports wheezing Physical Exam Vital Signs: Last Vital Signs Pulse 89 03/26/24 14:42 Pulse Ox 97 03/26/24 14:42 Oxygen Delivery Method Room Air 03/26/24 14:42 BMI result Body Mass Index 40.2 Const General: No confusion Orientation/consciousness: No confusion HEENT General nose exam: Abnormal external nose present and Nasal discharge present Chest Chest palpation & inspection: normal inspection of the chest Resp Effort & Inspection: Actively coughing Quality: productive Auscultation: no rales, wheezes and diminished lung sounds Cardio Rate: regular rate Rhythm: regular rhythm Heart sounds: S1 normal heart sound present and S2 normal heart sound present GI Palpation (GI): Soft to palpation and nontender Auscultation: normal bowel sounds Skin General skin exam: rashes and/or lesions noted Neuro General: No confusion Assessment & Plan Assessment & Plan (1) Severe asthma: Comment: Eosinophilic asthma Code(s): J45.909 - Unspecified asthma, uncomplicated Category: Medical Qualifiers: Asthma complication type: with acute exacerbation Asthma persistence: persistent Qualified Code(s): J45.51 - Severe persistent asthma with (acute) exacerbation (2) Oxygen dependent: Comment: pulmonology note 12/21/22 states no longer qualifies for supplemental O2 Code(s): Z99.81 - Dependence on supplemental oxygen Category: Medical (3) GERD (gastroesophageal reflux disease): Code(s): K21.9 - Gastro-esophageal reflux disease without esophagitis Category: Medical Qualifiers: Esophagitis presence: without esophagitis Qualified Code(s): K21.9 - Gastro-esophageal reflux disease without esophagitis (4) ROB on CPAP: Code(s): G47.33 - Obstructive sleep apnea (adult) (pediatric); Z99.89 - Dependence on other enabling machines and devices Category: Medical (5) ILD (interstitial lung disease): Code(s): J84.9 - Interstitial pulmonary disease, unspecified Category: Medical (6) Post herpetic neuralgia: Code(s): B02.29 - Other postherpetic nervous system involvement Category: Medical Plan continue Trelegy 200 1 inhalation daily FERMIN as needed continue oxygen with sleep 2 L/min and with activity APAP. provided p10 mask. Should bring it the CPAP to the next visit. continue Fasenra F/U 6 months Coding Level of Care Code Est Pt Level 4 (99440) Diagnoses Severe persistent asthma with acute exacerbation J45.51 Asthma complication type: with acute exacerbation Asthma persistence: persistent Oxygen dependent Z99.81 Gastroesophageal reflux disease without esophagitis K21.9 Esophagitis presence: without esophagitis ROB on CPAP G47.33; Z99.89 ILD (interstitial lung disease) J84.9 Post herpetic neuralgia B02.29 Time Spent (min) 18
== END 2024-03-26 15:02 | disposition home or self-care (01) ==
PROVIDERS: PCP Internal Medicine; Visit Provider Hospitalist
DX: J45.51 Severe persistent asthma with (acute) exacerbation (principal); Z99.81 Dependence on supplemental oxygen; K21.9 Gastro-esophageal reflux disease without esophagitis; G47.33 Obstructive sleep apnea (adult) (pediatric); Z99.89 Dependence on other enabling machines and devices; J84.9 Interstitial pulmonary disease, unspecified; B02.29 Other postherpetic nervous system involvement
CPT/HCPCS: 99214

== ENCOUNTER → 2024-03-26 14:38 | Outpatient (BNVA) | payer OTHER, SELFPAY | PROVIDERS: PCP Internal Medicine; Visit Provider Hospitalist | DX: J45.51 Severe persistent asthma with (acute) exacerbation (principal); J82.83 Eosinophilic asthma; J84.9 Interstitial pulmonary disease, unspecified; J44.9 Chronic obstructive pulmonary disease, unspecified; G47.33 Obstructive sleep apnea (adult) (pediatric); K21.9 Gastro-esophageal reflux disease without esophagitis; B02.29 Other postherpetic nervous system involvement; Z99.81 Dependence on supplemental oxygen | CPT/HCPCS: 99212 ==

== ENCOUNTER 2024-04-23 11:09 | Outpatient (AMB) | payer OTHER, SELFPAY ==
[2024-04-23 11:15] VITALS: BP 120/86; BMI 40.0
--- NOTE | 2024-04-23 11:15 | A.OFFVIS_ITS ---
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 No complaints. Last Pap/HPV was in 2012 was negative, the patient is status post hysterectomy 89 for benign disease with no history of abnormal Pap smears Last Mammogram was BI-RADS 1 in 02/20 Last Colonoscopy was in 05/19, the recommendation was to repeat in 5 years No previous DEXA scan [facility] Medical History (Updated 04/23/24 @ 11:55 by Parrish Radford MD) Well woman exam Pre-op evaluation RSV (acute bronchiolitis due to respiratory syncytial virus) Chest pain Palpitations URI (upper respiratory infection) Snoring Encounter for screening for malignant neoplasm of colon Physical exam Morbid obesity Lumbar pain Urinary incontinence Low blood pressure Allergic reaction UTI (urinary tract infection) Palpitations Morbid obesity with BMI of 40.0-44.9, adult Epigastric abdominal pain Oxygen dependent Hypothyroidism Hypersomnia ILD (interstitial lung disease) ROB on CPAP History of ESBL E. coli infection Obstructive sleep apnea Moderate recurrent major depression Urinary retention Acute and chronic respiratory failure with hypoxia COVID-19 Lupus (systemic lupus erythematosus) Polyarthralgia Neck mass Eosinophilia Severe asthma Asthma-COPD overlap syndrome Trigger finger of right hand Recurrent UTI Tachycardia Obesity Lumbar degenerative disc disease GERD (gastroesophageal reflux disease) Hemangioma Hypovitaminosis D Bipolar 1 disorder Depression with anxiety Insomnia COPD (chronic obstructive pulmonary disease) Surgical History Hx of hand surgery Hx of cardiac catheterization History of esophagogastroduodenoscopy (EGD) History of cystocele History of colonoscopy History of shoulder surgery History of carpal tunnel release History of hysterectomy History of section History of tonsillectomy Family History Father Prostate cancer Mother No problems noted. 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 Cognitive needs: Yes (walker ) Hearing needs: No Vision needs: Yes Female Reproductive History Menstrual Age of Menarche: 12 Menopause type: surgical Total pregnancies: 5 Full term: 3 Ab spontaneous: 2 Date of Mammogram: 02/14/24 Review of Systems Const All systems reviewed & are unremarkable except as noted in HPI and below Card Reports as per HPI and Reports no additional complaints Resp Reports as per HPI and Reports no additional complaints GI Reports as per HPI and Reports no additional complaints Reports as per HPI Physical Exam Vital Signs: BMI result Body Mass Index 40.0 Const General: cooperative, healthy appearing and comfortable General: Yes bladder normal to palpation External Female Exam: No lesion Speculum Exam - Vagina: normal appearance of the vagina, normal vaginal discharge and not erythematous Speculum Exam - Cervix: Cervix absent Bimanual exam- vagina & uterus: bladder normal to palpation and uterus absent Bimanual Exam- Adnexa, other: Other (No masses detected) Assessment & Plan Assessment & Plan (1) Well woman exam: Code(s): Z01.419 - Encounter for gynecological examination (general) (routine) without abnormal findings Category: Medical Plan: Co testing not indicated since the patient had a hysterectomy with no history of abnormal Pap smears last 25 years. Counseled the patient about the recommended dietary allowance of 1200 mg of Calcium & 800 IU of vitamin D. Instructions given the patient to schedule next screening Mammogram in 02/21. Will order DEXA scan . The patient was instructed to perform monthly self-breast exams and to schedule a 2 week DEXA scan follow-up appointment and an annual exam in a year; All questions answered and the patient verbalized understanding. Orders: Orders XR DEXA axial skeleton Today Z78.0 - Asymptomatic menopausal state Coding Level of Care Code New Pt Prev Care >65yr (22509) Diagnoses Well woman exam Z01.419
== END 2024-04-23 12:10 | disposition home or self-care (01) ==
PROVIDERS: PCP Internal Medicine; Visit Provider Obstetrics & Gynecology
DX: Z01.419 Encounter for gynecological examination (general) (routine) without abnormal findings (principal)
CPT/HCPCS: 99397

== ENCOUNTER 2024-04-23 11:09 | Outpatient (REF) | payer OTHER, SELFPAY ==
[2024-04-23 17:59] LABS: Bacterial Vaginosis PCR NEGATIVE (Negative); Candida Group PCR NOT DETECTED (Not Detect); Candida glab krusei PCR NOT DETECTED (Not Detect); Trichomonas vaginalis PCR NOT DETECTED (Not Detect)
== END 2024-04-23 11:10 | disposition home or self-care (01) ==
LOC: HO.LNP 11:09
PROVIDERS: PCP Internal Medicine; Visit Provider Obstetrics & Gynecology
DX: Z01.419 Encounter for gynecological examination (general) (routine) without abnormal findings (principal); N89.8 Other specified noninflammatory disorders of vagina
CPT/HCPCS: 0352U

== ENCOUNTER 2024-05-01 10:26 | Outpatient (REF) | payer OTHER, SELFPAY ==
--- NOTE | ~2024-05-01 | MM_ITS ---
EXAMINATION: BONE DENSITOMETRY CLINICAL INDICATION: Asymptomatic menopausal state. COMPARISON: This is the patient's baseline examination. TECHNIQUE: Using a [employer] DXA System (software version: 13.1) manufactured by [employer], dual-energy x-ray absorptiometry was performed of the lumbar spine and left hip. The images are of good technical quality. Summary results are attached. FINDINGS: LEFT FEMUR, NECK: BMD 0.814 g/cm2, Z-score -0.8, T-score -1.6, osteopenia. LEFT FEMUR, TOTAL: BMD 0.877 g/cm2, Z-score -0.5, T-score -1.0, normal. AP SPINE L1-L4 (excluding L2 and L3): The data of L1-L4 has been changed to exclude the L2 and L3 vertebral bodies, because degenerative sclerosis at these levels may cause overestimation of lumbar spine density. BMD 1.262 g/cm2, Z-score 1.4, T-score 0.8, normal. IDENTIFIED RISK FACTORS: Early menopause, secondary osteoporosis, hysterectomy, bilateral oophorectomy. HISTORY OF FRACTURE: None listed. MEDICATIONS: Calcium supplements or multivitamin, vitamin D. MM/XR DEXA axial skeleton IMPRESSION: 1. DIAGNOSIS: Osteopenia based on the lowest T-score value of -1.6 in the femoral neck applying World Health Organization criteria. 2. 10-YEAR FRACTURE RISK PREDICTION, FRAX: Major osteoporotic fracture (clinical spine, forearm, hip or shoulder) 4.8%. Hip fracture 0.5%. 3. Treatment Recommendations: NOF guidelines recommend consideration for treatment in postmenopausal women and men age 50 and older presenting with the following: -A hip or vertebral (clinical or morphometric) fracture. -T-score less than or equal to -2.5 at the femoral neck or spine after appropriate evaluation to exclude secondary causes. -Low bone mass at the hip or spine and a 10-year fracture probability by FRAX of greater than or equal to 3% for hip fracture or greater than or equal to 20% for major osteoporotic fracture based on the [place] adapted WHO algorithm. 4. Other Recommendations: All treatment decisions require clinical judgment and consideration of individual patient factors, including patient preferences, comorbidities, previous drug use, risk factors not captured in the FRAX model (e.g. frailty, falls, vitamin D deficiency, increased bone turnover, interval significant decline in bone density) and possible under or overestimation of fracture risk by FRAX. Additional medical evaluation for secondary cause of low bone mineral density may be appropriate. FUTURE SCAN RECOMMENDATION: People with diagnosed cases of osteoporosis or at high risk for fracture should have regular bone mineral density tests. For patients eligible for Medicare, routine testing is allowed once every 2 years. The testing frequency can be increased to one year for patients who have rapidly progressing disease, those who are receiving or discontinuing medical therapy to restore bone mass, or have additional risk factors.
== END 2024-05-01 10:27 | disposition home or self-care (01) ==
LOC: HO.MAMMO 10:26
PROVIDERS: PCP Internal Medicine; Visit Provider Obstetrics & Gynecology
DX: Z13.820 Encounter for screening for osteoporosis (principal); Z78.0 Asymptomatic menopausal state
CPT/HCPCS: 77080

== ENCOUNTER 2024-05-06 10:37 | Outpatient (AMB) | payer OTHER, SELFPAY ==
[2024-05-06 10:41] VITALS: BP 130/82; PULSE 91; O2SAT 96; BMI 40.4
--- NOTE | 2024-05-06 10:41 | A.OFFPC_ITS ---
Vital Signs 05/06/24 10:41 Height 5 ft 1 in Weight 214 lb BMI 40.4 BP 130/82 Blood Pressure Location Lt brachial Position Sitting Pulse 91 Pulse Source Pulse Oximeter Pulse Oximetry (%) 96 Oxygen Delivery Method Room Air Intake Visit Reasons: Annual Exam Intake Note: Patient is here today for a physical. 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 Required: No Accompanied by: Self / Same As Patient Allergies No Known Allergies Allergy (Verified 05/06/24 11:16) Medication List - Last Reconciled 05/06/24 by Farideh Marquez MD acetaminophen 325 mg PO QID PRN [adult diapers pull-ups As directed] albuterol sulfate 90 mcg/actuation 2 puffs inhalation Q4H PRN albuterol sulfate 2.5 mg (3 mL) inhalation Q6H PRN amitriptyline 100 mg PO BEDTIME benralizumab (Fasenra) 30 mg subcut Q8W blood pressure kit-extra large As directed bupropion HCl XL 300 mg PO DAILY carboxymethylcellulose sodium 0.5% 1 drp ophthalmic (eye) BID PRN 30 days cetirizine 10 mg PO DAILY PRN 90 days cholecalciferol (vitamin D3) (Vitamin D3) 25 mcg PO DAILY clonazepam 1 mg PO DAILY cromolyn 4% 1 drp ophthalmic (eye) 6XD 30 days diphenhydramine HCl (Banophen) 25 mg PO BEDTIME PRN disposable gloves (Biobrane Gloves Large) As directed docusate sodium 100 mg PO BID [electric wheelchair As directed] ertapenem 1 g IV DAILY [flushable wipes As directed] jlgnyqdxjeu-dmyylrwgq-ydmlccee 200-62.5-25 mcg (Trelegy Ellipta) 1 inh inhalation DAILY 30 days gabapentin 300 mg PO BID gabapentin 400 mg PO TID lamotrigine 200 mg PO DAILY levothyroxine 50 mcg PO DAILY@0630 lidocaine HCl 4% (AsperFlex (lidocaine HCl)) use 1-2 inch ointment and apply up to 3 times daily on L shoulder topically; lubiprostone 24 mcg PO BID miscellaneous medical supply OVERBED TABLE nebulizers (AeroEclipse II Nebulizer) As directed oxygen-air delivery systems As directed pantoprazole 40 mg PO BID quetiapine 50 - 100 mg PO BEDTIME [recliner with power buttons As directed] rosuvastatin 10 mg PO DAILY [shower seat As directed] simethicone 125 mg PO QID PRN topiramate 100 mg PO BID tramadol 50 mg PO Q6H PRN trazodone 100 mg PO BEDTIME PRN 90 days underpads (Bed Underpads) As directed valacyclovir 1,000 mg PO Q8H 7 days [wheeled table with drawers As directed] zolpidem 10 mg PO BEDTIME PRN Tobacco use date assessed: 12/20/23 Fall risk assessment: 1 Fall in past year Last assessed Fall Risk: 05/06/24 Dental Screening Dental Screen Date: 12/20/23 HPI HPI Comments History of Present Illness Details This is a 64-year-old female with bipolar disorder, moderate recurrent major depression, asthma-COPD overlap syndrome, interstitial lung disease and cardiomyopathy that comes today accompanied by family member for her physical exam. Mammogram done 2023 was normal. DEXA scan done 2023 shows osteopenia. Colonoscopy done 2018. No chest pain or shortness on breath. Complains of left shoulder pain and itchiness after having shingles recently in the area. C urrently on gabapentin. Walks with a walker for gait stability. Follows with pulmonology. Complains of memory loss and will be referred to Neurology. Bipolar disorder and depression are follow by Psychiatry and has been stable. She is morbidly obese with a BMI of 40.4 and was advised to do diet and exercise to reach BMI goal less than 30. She also has cardiomyopathy and an echocardiogram will be order to check how is her ejection fraction. [facility] Medical History (Updated 05/06/24 @ 15:35 by Farideh Marquez MD) Morbid obesity Avascular necrosis Physical exam Well woman exam Pre-op evaluation RSV (acute bronchiolitis due to respiratory syncytial virus) Chest pain Palpitations URI (upper respiratory infection) Snoring Encounter for screening for malignant neoplasm of colon Lumbar pain Urinary incontinence Low blood pressure Allergic reaction UTI (urinary tract infection) Palpitations Morbid obesity with BMI of 40.0-44.9, adult Epigastric abdominal pain Oxygen dependent Hypothyroidism Hypersomnia ILD (interstitial lung disease) ROB on CPAP History of ESBL E. coli infection Obstructive sleep apnea Moderate recurrent major depression Urinary retention Acute and chronic respiratory failure with hypoxia COVID-19 Lupus (systemic lupus erythematosus) Polyarthralgia Neck mass Eosinophilia Severe asthma Asthma-COPD overlap syndrome Trigger finger of right hand Recurrent UTI Tachycardia Obesity Lumbar degenerative disc disease GERD (gastroesophageal reflux disease) Hemangioma Hypovitaminosis D Bipolar 1 disorder Depression with anxiety Insomnia COPD (chronic obstructive pulmonary disease) Surgical History Hx of hand surgery Hx of cardiac catheterization History of esophagogastroduodenoscopy (EGD) History of cystocele History of colonoscopy History of shoulder surgery History of carpal tunnel release History of hysterectomy History of section History of tonsillectomy Family History Father Prostate cancer Mother No problems noted. Sister Nasopharyngeal cancer Social History Household Members: None Household Members Other:: 1 Housing: Apartment Do you presently have visiting nurse or other home services: Yes (Has RNP) Alcohol intake: never Comment: sleeping Patient Tobacco Use Status: Former Tobacco user Years Smoked: 14 +/- e-Cigarette/Vaping Use: Never Used Second Hand Smoke Exposure: No Advance Directives Date on File: 01/08/21 service: No Current occupational status: disabled Current occupation: right and left handed--- HAS RNP SERVICES Cognitive needs: Yes (walker ) Hearing needs: No Vision needs: Yes Female Reproductive History Menstrual Age of Menarche: 12 Questionnaire PHQ-9 Over the last 2 weeks, how often have you been bothered by any of the following problems? 1. Little interest or pleasure in doing things: several days 2. Feeling down, depressed, or hopeless: more than half the days 3. Trouble falling or staying asleep, or sleeping too much: more than half the days 4. Feeling tired or having little energy: more than half the days 5. Poor appetite or overeating: more than half the days 6. Feeling bad about yourself - or that you are a failure or have let yourself or your family down: several days 7. Trouble concentrating on things, such as reading the newspaper or watching television: several days 8. Moving or speaking so slowly that other people could have noticed. Or the opposite - being so fidgety or restless that you have been moving around a lot more than usual: several days 9. Thoughts that you would be better off or of hurting yourself in some way : not at all Total score: 12 Depression Screening Interpretation: Positive Depression Screening Follow-up: Existing condition, In treatment, Community Mental Health Worker F/U and Follow- up Visit Requested Depression Screening Done: Yes 91955 - PHQ-9 Billing: Patient declined-do not bill Source: Developed by Drs. Power Thornton, Melissa Peñaloza, Master Grijalva and colleagues, with an educational sudhir from [employer]. Thrive Questionnaire Date Thrive assessed: 01/28/24 I am a: Patient What is your living situation today?: I have a steady place to live Within the past 12 months, did the food you bought not last and you didn't have the money to get more?: Never true Within the past 12 months, did you worry whether your food would run out before you got money to buy more?: Never true Do you have trouble paying for medicines?: No Do you have trouble getting transportation to medical appointments?: No Do you have trouble paying your heating and electricity bill?: No Do you have trouble taking care of your child, family member or friend?: No Do you have trouble with day-to-day activities such as bathing, preparing meals, shopping, managing finances, etc.?: No Are you currently unemployed and looking for a job?: No Are you interested in more education?: No Please select the resources that you would like help with: None Currently or been in a relationship where the following occur: No concerns reported THRIVE Score: 0 AUDIT C Alcohol Use Questionnaire (AUDIT-C) 1. How often do you have a drink containing alcohol?: Never 3. How often do you have six or more drinks on one occasion?: Never Total Score: 0 Score Reviewed/Action Taken: No DAO-7 AMB Questionnaire DAO-7 Date DAO - 7 assessed: 12/20/23 Feeling nervous, anxious, or on edge: 1 = Several days Not being able to stop or control worryin = Not at all Worrying too much about different things: 0 = Not at all Trouble relaxin = Several days Being so restless that it is hard to sit still: 1 = Several days Becoming easily annoyed or irritable: 1 = Several days Feeling afraid as if something awful might happen: 0 = Not at all Total DAO-7 score (0-4 normal; 5-9 mild; 10-14 moderate; 15-21 severe): 4 Source: Developed by Drs. Power Thornton, Melissa Peñaloza, Master Grijalva and colleagues, with an educational sudhir from [employer]. DAO-7 Assessment Billing DAO-7 Assessment Tool: DAO-7 Assessment 24488 Review of Systems Const All systems reviewed & are unremarkable except as noted in HPI and below Card Denies chest pain at rest, Denies chest pain with activity, Denies edema, Denies irregular heart rhythm, Denies claudication, Denies dyspnea, Denies dyspnea on exertion, Denies orthopnea, Denies paroxysmal nocturnal dyspnea and Denies slow heart rate Resp Denies cough, Denies dyspnea and Denies dyspnea on exertion Musc Denies abnormal gait, Denies atrophy, Denies deformity and Denies limited range of motion Skin/Breast Denies bleeding lesions, Denies changing lesions and Denies rash Neuro Denies abnormal gait and Denies lack of coordination Physical exam (Primary Care) Vital Signs: Last Vital Signs Pulse 91 05/06/24 10:41 BP 130/82 05/06/24 10:41 Pulse Ox 96 05/06/24 10:41 Oxygen Delivery Method Room Air 05/06/24 10:41 BMI result Body Mass Index 40.4 BMI Assessment/Plan discussion: High BMI High, discussed plan: lifestyle, weight reduction, dietary and physical activity Tobacco/Smoking Status: Tobacco use Status Tobacco use date assessed 12/20/23 05/06/24 10:43 Patient Tobacco Use Status Former Tobacco user 05/06/24 10:43 Tobacco use type 07/15/23 11:19 e-Cigarette/Vaping Use Never Used 05/06/24 10:43 PHQ-9: PHQ-9 Score PHQ-9: Total score 12 05/06/24 15:29 Depression Screening Interpretation: Positive Depression Screening Follow-up: Existing condition, In treatment, Community Mental Health Worker F/U and Follow- up Visit Requested Thrive Assessment: Date of Thrive Assessment Date Thrive assessed 01/28/24 05/06/24 10:43 Currently or been in a relationship where the following occur: No concerns reported Const General: cooperative Limitations: ambulation with walker HENMT Head: Yes normal to inspection, Yes normocephalic and Yes atraumatic Ears: external ears normal Eyes General: appearance normal, both eyes and all related structures Eyelids: Yes eyelids normal Conjunctivae: conjunctivae normal Neck Neck: Yes normal visual inspection and Yes supple Resp Effort & Inspection: normal respiratory effort Auscultation: clear to auscultation bilaterally Cardio Jugular venous distension: no JVD Rate: regular rate Rhythm: regular rhythm Heart sounds: S1 normal heart sound present and S2 normal heart sound present GI Inspection: Yes normal to inspection Palpation (GI): Soft to palpation and nontender Auscultation: normal bowel sounds Skin General skin exam: no rashes or lesions noted Neuro General: no focal motor deficits Extrem General: Yes full ROM Psych Appearance: grossly normal Assessment and Plan Assessment & Plan (1) Physical exam: Code(s): Z00.00 - Encounter for general adult medical examination without abnormal findings Plan: Repeat in a year. (2) Memory loss: Code(s): R41.3 - Other amnesia Plan: Referred to neurology. (3) Bipolar 1 disorder: Code(s): F31.9 - Bipolar disorder, unspecified Plan: Continue lamotrigine. Follow-up with psychiatry (4) Moderate recurrent major depression: Code(s): F33.1 - Major depressive disorder, recurrent, moderate Plan: Continue bupropion and amitriptyline. Follow-up with psychiatry. (5) Asthma-COPD overlap syndrome: Comment: follows [facility] Pulmonology Code(s): J44.9 - Chronic obstructive pulmonary disease, unspecified Plan: Continue Trelegy. Use rescue inhaler as needed. Follow-up with pulmonology. (6) ILD (interstitial lung disease): Code(s): J84.9 - Interstitial pulmonary disease, unspecified Plan: Follow-up with pulmonology. (7) Morbid obesity: Code(s): E66.01 - Morbid (severe) obesity due to excess calories Plan: Start diet and exercise as tolerated. BMI goal is less than 30. (8) Cardiomyopathy: Code(s): I42.9 - Cardiomyopathy, unspecified Plan: Echocardiogram ordered. The goal is to not gain 5 lb in a week. Orders: Orders Vitamin D 25-OH Total Today E55.9 - Vitamin D deficiency, unspecified IRON PROFILE Today D64.9 - Anemia, unspecified Lipid Panel Today E78.5 - Hyperlipidemia, unspecified CA echo transthoracic complete Today I42.9 - Cardiomyopathy, unspecified Thyroid Stimulating Hormone Today E03.9 - Hypothyroidism, unspecified Complete Blood Count Auto Diff Today D64.9 - Anemia, unspecified Vitamin B12 and Folate Today E53.8 - Deficiency of other specified B group vitamins Comprehensive [place]. Panel Fast Today Z00.00 - Encounter for general adult medical examination without abnormal findings NT-proBNP Today I42.9 - Cardiomyopathy, unspecified Referrals Neurology Referral R41.3 - Other amnesia Coding Level of Care Code Est Pt Level 3 (54062) Est Pt Prev Care >65y(99372) Diagnoses Physical exam Z00.00 Memory loss R41.3 Bipolar 1 disorder F31.9 Moderate recurrent major depression F33.1 Asthma-COPD overlap syndrome J44.9 ILD (interstitial lung disease) J84.9 Morbid obesity E66.01 Cardiomyopathy I42.9 Additional Codes DAO-7 Assessment Billing - DAO-7 Assessment Tool: DAO-7 Assessment 24435 ([id number]) Time Spent (min) 34
== END 2024-05-06 11:45 | disposition home or self-care (01) ==
PROVIDERS: PCP Internal Medicine; Visit Provider Internal Medicine
DX: Z00.00 Encounter for general adult medical examination without abnormal findings (principal); F31.9 Bipolar disorder, unspecified; J44.9 Chronic obstructive pulmonary disease, unspecified; J84.9 Interstitial pulmonary disease, unspecified; E66.01 Morbid (severe) obesity due to excess calories; I42.9 Cardiomyopathy, unspecified; R41.3 Other amnesia
CPT/HCPCS: 99397

== ENCOUNTER 2024-05-14 12:00 | Outpatient (RCR) | payer OTHER, SELFPAY ==
--- NOTE | 2024-03-13 14:02 | MHC.PT.EP ---
[facility] [place] Office [place] Office [place] Office [address] [place] Torres [address] [phone] F: [phone] F: [phone] F: [phone] F: [phone] Physical Therapy Plan of Care Date of Evaluation: 03/13/24 Date of Surgery: 12/26/23 Diagnosis: left shoulder pain (RL) Assessment: pt is a 64 y/o female presenting to physical therapy w/ referring diagnosis of left shoulder pain. To the patient's knowledge she had a total shoulder replacement on 12/26/23 but no information from the surgeon has been provided. This therapist will try to obtain as much information as possible to promote optimal outcomes for her post-op rehab. Impairments include pain, decreased range of motion, decreased strength, impaired functional mobility, impaired postural awareness, and altered ambulation mechanics. pt is a fair candidate for skilled PT due to age, potential remediation of impairments, typical disease/condition progression and prognosis, comorbidities, and motivation. pt would benefit from skilled PT intervention to provide a tailored strengthening and stretching exercise program, functional training, gait training, postural re-training, neuromuscular re-education, modalities as needed for pain, equipment safety demonstration. Frequency and Duration: The patient will be seen 2x/wk for 8 wks Short Term Goals: pt will be I w/ HEP to promote self-management of condition. pt will improve L shoulder flexion by at least 15 degrees to promote ease in reaching for objects. Group Home Goals: pt will report a statistically significant improvement in self-reported outcome measure, SPADI, to promote return to PLOF. pt will demo at least 4/5 shoulder strength on MMT to promote ease in self-care activities. Treatment Plan: Modalities to reduce pain, spasms and effusion. Manual therapy to restore motion and function. Therapeutic exercise to improve strength and flexibility. Neuromuscular re-education for posture and balance. Therapeutic activities to return to functional activities of daily living. Electronically signed by: Evelyn Lee PT, DPT Please sign and return to therapist. Thank you for your referral.
--- NOTE | 2024-05-17 15:42 | MHC.PT.DC ---
[facility] [place] Office [place] Office [place] Office [address] Cortez Torres [address] [facility] [phone] F: [phone] F: [phone] F: [phone] F: [phone] Physical Therapy Discharge Report Diagnosis: left shoulder pain (RL) Date of Surgery: 12/26/23 Date of Evaluation: 03/13/24 Date of Discharge: 05/17/24 Treatments to Date: 13 Cancellations to Date: 2 No Shows to Date: 2 Discharge Status: Recommend MD Follow-up Discharge Summary: The patient overall made fair progress during this physical therapy plan of care. Barriers to progressing her was delayed access to outpatient physical therapy, experiencing an unwitnessed mechanical fall onto the operative side while at rehab, and multiple comorbidities. Given her prolonged plateau and increasing medical complexity I do not feel she is going to make anymore meaningful progress with physical therapy. At this time, she has a DRYWALL TAPER who essentially provides 24/ care. There is nothing in her day to day routine for which she is not receiving help. She is independent with her home exercise program. She is discharged from this physical therapy plan of care to her home exercise program. Electronically signed by: Evelyn Lee PT, DPT Please sign and return to therapist. Thank you for your referral.
== END 2024-05-17 15:42 | disposition home or self-care (01) ==
LOC: HO.PT 12:00
PROVIDERS: PCP Internal Medicine; Visit Provider Internal Medicine
DX: M25.512 Pain in left shoulder (principal)
CPT/HCPCS: 97110; 97140; 97163

== ENCOUNTER 2024-05-31 21:43 | Emergency (ER) | payer OTHER, SELFPAY ==
--- NOTE | 2024-05-31 | ECG_ITS ---
Test Reason : fall Blood Pressure : / mmHG Vent. Rate : 089 BPM Atrial Rate : 089 BPM P-R Int : 160 ms QRS Dur : 094 ms QT Int : 368 ms P-R-T Axes : 045 065 051 degrees QTc Int : 447 ms Normal sinus rhythm Incomplete right bundle branch block Borderline ECG When compared with ECG of 27-JAN-2024 16:22, Questionable change in QRS axis Referred By: Generic ED Physician Electronically Signed By:Grady Thakkar
--- NOTE | ~2024-05-31 | CT_ITS ---
EXAMINATION: NONCONTRAST HEAD CT NONCONTRAST CERVICAL SPINE CT INDICATION INFORMATION: Syncope, injury COMPARISON: 01/30/2024 TECHNIQUE: Separate noncontrast CT examinations of the head and cervical spine were performed. Coronal head CT images and coronal and sagittal cervical spine images were created at the technologist workstation. DLP: 1305 mGy-cm DOSE LOWERING TECHNIQUES: This CT examination was performed using dose optimization techniques as appropriate, variously including the following: - Automated exposure control - Adjustment of mA and/or kV according to patient size (this includes techniques or standardized protocols for targeted exams were dose is matched to indication/reason for exam; i.e. extremities or head) - Use of iterative reconstruction technique FINDINGS: Head: There is no evidence of acute intracranial hemorrhage or territorial infarction. No abnormal mass-effect or midline shift is seen. Romero to white matter differentiation is well preserved. No extra-axial fluid collections are identified. The ventricles are normal in size. There is mild periventricular white matter hypoattenuation consistent with chronic small vessel ischemic disease. The osseous structures and soft tissues are normal. The mastoid air cells are well-aerated. Trace mucosal thickening of the right maxillary sinus. Cervical spine: There is anatomic alignment of the vertebral bodies and posterior elements. Vertebral body heights are maintained. There is disc space narrowing and endplate osteophyte formation in the mid to lower cervical spine. Mild multilevel facet arthropathy. No evidence of acute fracture. No prevertebral soft tissue swelling. Visualized portions of the lung apices are unremarkable. The thyroid gland is unremarkable. CT/CT cervical spine wo IV con IMPRESSION: No acute findings identified in the head or cervical spine.
--- NOTE | ~2024-05-31 | CT_ITS ---
EXAMINATION: CT CHEST, ABDOMEN AND PELVIS WITHOUT CONTRAST CLINICAL INFORMATION: Reason for Exam fall, diffuse tenderness of all bony structures COMPARISON: 07/09/2022 TECHNIQUE: Multidetector volumetric imaging was performed from the thoracic inlet through the pubic symphysis. Sagittal and coronal reformatted images were obtained on the technologist's workstation. Axial MIP volume rendering provided. This CT examination was performed using dose optimization techniques as appropriate, variously including the following: *Automated exposure control *Adjustment of mA and/or kV according to patient size (this includes techniques or standardized protocols for targeted exams where dose is matched to indication/reason for exam; i.e. extremities or head) *Use of iterative reconstruction technique DLP: 1855 mGy-cm FINDINGS: CHEST: Lungs: Streaky bibasilar opacities favor subsegmental atelectasis. Limited detailed parenchymal evaluation in some regions due to motion artifact. Mediastinum: Visualized thyroid gland is grossly unremarkable. There are subcentimeter mediastinal lymph nodes within the range of normal variation. There is cardiomegaly without pericardial effusion. Coronary Artery Calcification: Present Pleura: No pneumothorax or pleural effusion. Chest Wall/Axilla: No axillary lymphadenopathy is present. ABDOMEN/PELVIS: Liver, Gallbladder, Biliary Tree: The liver is normal in size, shape, and attenuation. No focal hepatic lesion or biliary ductal dilatation is identified on this noncontrast exam. The gallbladder is grossly unremarkable though not well evaluated due to artifact. Pancreas: Grossly unremarkable. Spleen: Unremarkable. Adrenal Glands: Unremarkable. Kidneys and Ureters: No hydronephrosis or obstructing calculus bilaterally. Nonspecific mild bilateral perinephric stranding similar to prior. Bladder: Unremarkable. Gastrointestinal Tract: No evidence of bowel obstruction or significant wall thickening. The colon is moderately distended with gas and stool. The appendix is unremarkable. No free fluid or free air is seen. Abdominal Wall: No hernia is demonstrated. Lymphovascular Structures: Lymph nodes: Normal. Vascular: There is atherosclerotic calcification along the aorta. Pelvic Viscera: Patient appears to be status post hysterectomy. OSSEOUS STRUCTURES: Partially visualized left shoulder arthroplasty hardware. Degenerative change of the right shoulder. Multilevel degenerative changes throughout the thoracolumbar spine. No acute fracture is seen. Changes of avascular necrosis are suspected in the bilateral femoral heads. CT/CT abdomen pelvis wo IV con IMPRESSION: 1. No acute traumatic findings identified in the chest, abdomen, or pelvis. 2. Cardiomegaly. 3. Coronary artery calcifications. Correlation with cardiac risk factors is recommended. 4. Chronic appearing changes as noted above.
[2024-05-31 21:49] VITALS: BP 112/76; PULSE 90; O2SAT 94
[2024-05-31 21:52] VITALS: BMI 43.0
[2024-05-31 22:00] VITALS: BP 91/42; PULSE 90; RESP 16; TEMP 36.7; O2SAT 96
--- NOTE | 2024-05-31 22:19 | ED_ITS ---
HPI - General Adult General Chief complaint: Fall Stated complaint: fall after getting dizzy, collared, head strike Time Seen by Provider: 05/31/24 22:17 History of Present Illness ED Provider: Oneal BANG narrative: The patient is a 64-year-old female who says that she has been napping on the couch. She stood up and felt dizzy and turned and then lost her balance and fell backwards. She thinks that she may have struck a side table. She says that she hit her head when she fell. She does not know if she had any loss of consciousness. She does not know if she fainted. She says that she was on the ground for about half an hour before she was able to reach a phone and call her ORDER PROCESSING MANAGER who called an ambulance. She was then brought to the hospital. She was placed in a cervical collar. She is complaining of pain in her head, her neck, her shoulders, her back, both hips, and both knees. Related Data Home Medications ?Medication ?Instructions ?Recorded ?Confirmed oxygen-air delivery systems ##1 08/24/20 05/06/24 topiramate 100 mg tablet 100 mg PO BID 07/13/22 05/06/24 amitriptyline 100 mg tablet 100 mg PO BEDTIME 08/23/23 05/06/24 bupropion HCl 300 mg 24 hr tablet, 300 mg PO DAILY 08/23/23 05/06/24 extended release gabapentin 300 mg capsule 300 mg PO BID 12/20/23 05/06/24 acetaminophen 325 mg tablet 325 mg PO QID PRN Pain 01/27/24 05/06/24 benralizumab 30 mg/mL subcutaneous 30 mg subcut Q8W 01/27/24 05/06/24 syringe (Fasenra) clonazepam 1 mg tablet 1 mg PO DAILY Anxiety 01/27/24 05/06/24 docusate sodium 100 mg tablet 100 mg PO BID 01/27/24 05/06/24 lamotrigine 200 mg tablet 200 mg PO DAILY 01/27/24 05/06/24 pantoprazole 40 mg tablet,delayed 40 mg PO BID 01/27/24 05/06/24 release quetiapine 50 mg tablet 50 - 100 mg PO BEDTIME 01/27/24 05/06/24 rosuvastatin 10 mg tablet 10 mg PO DAILY 01/27/24 05/06/24 simethicone 125 mg tablet 125 mg PO QID PRN GAS 01/27/24 05/06/24 tramadol 50 mg tablet 50 mg PO Q6H PRN Pain 01/27/24 05/06/24 gabapentin 400 mg capsule 400 mg PO TID 03/26/24 05/06/24 zolpidem 10 mg tablet 10 mg PO BEDTIME PRN 03/26/24 05/06/24 Previous Rx's ?Medication ?Instructions ?Recorded shower seat #1 ea 11/23/20 miscellaneous medical supply #1 ea 12/22/20 electric wheelchair #1 ea 04/30/22 blood pressure kit-extra large #1 ea 08/29/22 wheeled table with drawers #1 ea 12/05/22 adult diapers pull-ups #240 ea 02/13/23 disposable gloves (Biobrane Gloves #200 ea 02/13/23 Large) flushable wipes #240 ea 02/13/23 underpads (Bed Underpads) #100 ea 02/13/23 trazodone 100 mg tablet 100 mg PO BEDTIME PRN sleep 90 05/08/23 days #90 tabs nebulizers (AeroEclipse II #1 ea 05/15/23 Nebulizer) lubiprostone 24 mcg capsule 24 mcg PO BID #180 caps 07/04/23 carboxymethylcellulose sodium 0.5 1 drp ophthalmic (eye) BID PRN dry 10/05/23 % eye drops in a dropperette eye(s) 30 days #30 ea diphenhydramine HCl 25 mg capsule 25 mg PO BEDTIME PRN sleep #30 caps 10/05/23 (Banophen) recliner with power buttons #1 ea 12/02/23 cromolyn 4 % eye drops 1 drp ophthalmic (eye) 6XD 30 days 12/18/23 #10 mL albuterol sulfate 90 mcg/actuation 2 puff inhalation Q4H PRN Wheezing 12/20/23 aerosol inhaler #8.5 grams ertapenem 1 gram solution for 1 g IV DAILY #6 ea 01/30/24 injection lidocaine HCl 4 % topical ointment See Rx Instructions topical 01/31/24 (AsperFlex (lidocaine HCl)) .COMPLEX herpes zoster #100 grams albuterol sulfate 2.5 mg/3 mL 2.5 mg (3 mL) inhalation Q6H PRN 02/14/24 (0.083 %) solution for nebulization for wheezing #150 mL cetirizine 10 mg tablet 10 mg PO DAILY PRN allergy 03/09/24 symptoms 90 days #90 tabs valacyclovir 1 gram tablet 1,000 mg PO Q8H 7 days #21 tabs 04/11/24 levothyroxine 50 mcg tablet 50 mcg PO DAILY@0630 #90 tabs 05/25/24 cholecalciferol (vitamin D3) 25 25 mcg PO DAILY #30 caps 05/27/24 mcg (1,000 unit) capsule (Vitamin D3) fluticasone fur. 200 mcg-umeclid 1 inh inhalation DAILY 30 days #60 05/27/24 62.5 mcg-vilant 25 mcg ea inhalat.powder (Trelegy Ellipta) Allergies Allergy/AdvReac Type Severity Reaction Status Date / Time No Known Allergies Allergy Verified 05/31/24 21:53 Review of Systems 2 Review of Systems: Yes all other systems are reviewed and are negative [facility] Past Medical History Medical History (Updated 06/01/24 @ 09:00 by Abel No MD) Morbid obesity Avascular necrosis Physical exam Well woman exam Pre-op evaluation RSV (acute bronchiolitis due to respiratory syncytial virus) Chest pain Palpitations URI (upper respiratory infection) Snoring Encounter for screening for malignant neoplasm of colon Lumbar pain Urinary incontinence Low blood pressure Allergic reaction UTI (urinary tract infection) Palpitations Morbid obesity with BMI of 40.0-44.9, adult Epigastric abdominal pain Oxygen dependent Hypothyroidism Hypersomnia ILD (interstitial lung disease) ROB on CPAP History of ESBL E. coli infection Obstructive sleep apnea Moderate recurrent major depression Urinary retention Acute and chronic respiratory failure with hypoxia COVID-19 Lupus (systemic lupus erythematosus) Polyarthralgia Neck mass Eosinophilia Severe asthma Asthma-COPD overlap syndrome Trigger finger of right hand Recurrent UTI Tachycardia Obesity Lumbar degenerative disc disease GERD (gastroesophageal reflux disease) Hemangioma Hypovitaminosis D Bipolar 1 disorder Depression with anxiety Insomnia COPD (chronic obstructive pulmonary disease) Surgical History Hx of hand surgery Hx of cardiac catheterization History of esophagogastroduodenoscopy (EGD) History of cystocele History of colonoscopy History of shoulder surgery History of carpal tunnel release History of hysterectomy History of section History of tonsillectomy Family History Family History Father Prostate cancer Mother No problems noted. Sister Nasopharyngeal cancer Social History Social History Household Members: None Household Members Other:: 1 Housing: Apartment Do you presently have visiting nurse or other home services: Yes (Has ORDER PROCESSING MANAGER) Alcohol intake: never Comment: sleeping Patient Tobacco Use Status: Former Tobacco user Years Smoked: 14 +/- Smoked in Last 30 Days: No e-Cigarette/Vaping Use: Never Used Second Hand Smoke Exposure: No Use of substances other than those prescribed or required for medical reasons: No Advance Directives: Yes Advance Directives on File: Yes Advance Directives Date on File: 01/08/21 service: No Current occupational status: disabled Current occupation: right and left handed--- HAS ORDER PROCESSING MANAGER SERVICES Cognitive needs: Yes (walker ) Hearing needs: No Vision needs: Yes Physical Exam ED Vital Signs: Vital Signs - 24 hr 05/31/24 22:00 06/01/24 01:50 06/01/24 04:40 Temperature 98.1 F 98.3 F 97.9 F Pulse Rate 90 82 90 Respiratory Rate 16 16 12 Blood Pressure 91/42 L 118/74 124/73 Pulse Oximetry 96 99 100 Oxygen Delivery Method Room Air Room Air Room Air 06/01/24 06:37 06/01/24 08:38 Temperature 97.7 F Pulse Rate 87 86 Respiratory Rate 9 L 12 Blood Pressure 125/84 107/72 Pulse Oximetry 98 98 Oxygen Delivery Method Room Air Room Air BMI result Body Mass Index 43.0 Const Other: The patient is a morbidly obese 64-year-old woman who was awake and alert. She was complaining of pain in much of her body but she does not seem in acute distress. HENMT Other: No obvious signs of trauma to the head or the face. Face is symmetrical. Mucous membranes moist. Eyes Other: Pupils are round equal, conjunctivae are clear, extraocular movements intact Neck Other: There was posterior cervical spine tenderness. No step-off. Chest Other: Bilateral diffuse chest wall tenderness without crepitus or subcutaneous emphysema. Resp Effort & Inspection: normal respiratory effort Auscultation: clear to auscultation bilaterally Cardio Rate: regular rate Rhythm: regular rhythm Heart sounds: S1 normal heart sound present and S2 normal heart sound present GI Other: The abdomen is soft and nontender Back/Spine/Pelvis Other: There is diffuse tenderness to the back in the midline of the upper back and the lower back. Skin Other: Skin is dry and unremarkable. No bruising. Neuro Other: The patient is awake and alert. Mental status seems appropriate. Cognition seems intact. Cranial nerves 2-12 seem intact. She states that moving her extremities is very painful and this limits her strength assessment but believe she has symmetrical strength and no focal findings. Extrem Other: The patient complained of a great deal of pain with any manipulation of her arms or legs. There were no gross deformities. Medications Administered Discontinued Medications Generic Name Dose Route Start Last Admin Trade Name Freq PRN Reason Stop Dose Admin Acetaminophen 975 mg 06/01/24 04:24 06/01/24 04:41 Acetaminophen 325 Mg Tablet PO 06/01/24 04:25 975 mg ONCE ONE Administration Ibuprofen 600 mg 06/01/24 04:25 06/01/24 04:42 Ibuprofen 600 Mg Tablet PO 06/01/24 04:26 600 mg ONCE ONE Administration Medical Decision Making Medical Decision Making MDM Narrative: The patient is a 64-year-old woman who fell in her apartment after she has been taking a nap on the couch. She says that she stood up and then started to walk and turned and then lost her balance. She fell backwards and says that she struck her head and then landed on her back. Her description of the episode suggests a possible orthostatic component. This does not sound like cardiac syncope. She may have simply lost her balance. She arrived in a cervical collar. She seemed to complain of pain in just about every part of her skeletal system. Head CT and cervical spine CT were negative. A CT without contrast of the chest, abdomen, and pelvis shows no acute injuries. My overall impression is that the patient does not have any acutely dangerous injuries and I suspect that her fall was likely secondary to an orthostatic phenomenon. The patient was given ibuprofen and acetaminophen. She will be given a trial of ambulation. If she is able to ambulate she may go home. She has had a ORDER PROCESSING MANAGER will be able give her a ride. If she fails a trial of ambulation she will likely need PT /case management. Lab Data 05/31/24 22:43 05/31/24 22:43 Labs: Lab Results 05/31/24 05/31/24 Range/Units 22:20 22:43 WBC 6.9 (4.8-10.8) X10*3/uL RBC 4.10 L (4.20-5.50) X10*6/uL Hgb 11.6 L (12.0-16.0) g/dl Hct 36.9 L (37.0-47.0) % MCV 90.0 (80.0-98.0) fL MCH 28.3 (27.0-33.0) pg MCHC 31.4 (31.0-35.0) g/dl RDW 16.1 H (11.0-16.0) % Plt Count 275 (160-400) X10*3/uL MPV 9.5 (9.4-12.3) fL Immature Gran % (Auto) 0.6 H (0.0-0.4) % Neut % (Auto) 73.9 H (45-73) % Lymph % (Auto) 18.8 L (20-40) % Douglas % (Auto) 6.7 (2-11) % Eos % (Auto) 0.0 (0-4) % Baso % (Auto) 0.0 (0-2) % Lymph # (Auto) 1.3 (1.2-4.9) X10*3/uL Douglas # (Auto) 0.5 (0.1-1.2) X10*3/uL Eos # (Auto) 0.0 (0.0-0.4) X10*3/uL Baso # (Auto) 0.0 (0.0-0.2) X10*3/uL Abs Immat Gran (auto) 0.04 H (0.00-0.03) X10*3/uL Absolute Neuts (auto) 5.1 (2.0-8.3) x10*3/uL Absolute Nucleated RBC 0.000 (0.0-0.012) X10*3/uL Nucleated RBC % (auto) 0.0 (0.0-0.2) /100WBC Sodium 144 (135-145) mmol/L Potassium 4.1 (3.3-5.1) mmol/L Chloride 110 H (96-108) mmol/L Carbon Dioxide 27 (22-29) mmol/L Anion Gap 11 L (12-20) BUN 12 (9-16) mg/dL Creatinine 0.89 (0.5-1.4) mg/dL Estim Creat Clear Calc 66.0 Estimated GFR > 60 POC Glucose 88 (60-115) mg/dL Random Glucose 106 (60-115) mg/dL Calcium 9.2 (8.4-10.2) mg/dL Total Bilirubin 0.2 (0.0-1.0) mg/dL AST 16 (5-31) U/L ALT 12 (0-31) U/L Alkaline Phosphatase 94 (39-117) U/L Troponin I High Sens < 2.7 (<3.5-17.0) ng/L Total Protein 6.5 (6.5-8.0) g/dL Albumin 3.8 (3.5-5.0) g/dL Discharge Plan Discharge Clinical Impression: Fall, Whole body pain Patient Disposition: Home, Self-Care Additional Instructions: Your testing in the emergency room does not show any significant injuries or any significant medical problem. Please be very careful with changing positions in the future. Be especially careful when you are standing up from sitting for awhile. Please continue all of your regular medications. You may use ibuprofen and/or acetaminophen as needed for pain. Please follow up with your regular doctor. Return to the emergency room if worse. Prescriptions: No Action (DME) shower seat See Rx Instructions .Route .MEDSUPPLY Qty: 1 0RF Rx Instructions: As directed (DME) miscellaneous medical supply Misc See Rx Instructions .ROUTE .MEDSUPPLY Qty: 1 0RF Rx Instructions: OVERBED TABLE (DME) electric wheelchair See Rx Instructions .Route .MEDSUPPLY Qty: 1 0RF Rx Instructions: As directed (DME) wheeled table with drawers See Rx Instructions .Route .MEDSUPPLY Qty: 1 0RF Rx Instructions: As directed (DME) flushable wipes See Rx Instructions .Route .MEDSUPPLY Qty: 240 6RF Rx Instructions: As directed (DME) disposable gloves [Biobrane Gloves Large] Misc See Rx Instructions .Route Qty: 200 6RF Rx Instructions: As directed (DME) underpads [Bed Underpads] Pad See Rx Instructions .Route Qty: 100 6RF Rx Instructions: As directed (DME) adult diapers pull-ups 2Xlarge See Rx Instructions .Route .MEDSUPPLY Qty: 240 6RF Rx Instructions: As directed trazodone 100 mg tablet 100 mg PO BEDTIME PRN (Reason: sleep) 90 Days Qty: 90 0RF (DME) nebulizers [AeroEclipse II Nebulizer] Misc See Rx Instructions .Route Qty: 1 0RF Rx Instructions: As directed lubiprostone 24 mcg capsule 24 mcg PO BID Qty: 180 3RF (DME) recliner with power buttons See Rx Instructions .Route .MEDSUPPLY Qty: 1 0RF Rx Instructions: As directed cromolyn 4 % drops 1 drp ophthalmic (eye) 6XD 30 Days Qty: 10 1RF albuterol sulfate 2.5 mg /3 mL (0.083 %) solution for nebulization 2.5 mg inhalation Q6H PRN (Reason: for wheezing) Qty: 150 11RF cetirizine 10 mg tablet 10 mg PO DAILY PRN (Reason: allergy symptoms) 90 Days Qty: 90 1RF valacyclovir 1 gram tablet 1,000 mg PO Q8H 7 Days Qty: 21 0RF levothyroxine 50 mcg tablet 50 mcg PO DAILY@0630 Qty: 90 0RF cholecalciferol (vitamin D3) [Vitamin D3] 25 mcg (1,000 unit) capsule 25 mcg PO DAILY Qty: 30 1RF Trelegy Ellipta 200-62.5-25 mcg blister with device 1 inh inhalation DAILY 30 Days Qty: 60 12RF acetaminophen 325 mg tablet 325 mg PO QID PRN (Reason: Pain) lamotrigine 200 mg tablet 200 mg PO DAILY tramadol 50 mg tablet 50 mg PO Q6H PRN (Reason: Pain) pantoprazole 40 mg Tablet,Delayed Release (Dr/Ec) 40 mg PO BID simethicone 125 mg Tablet 125 mg PO QID PRN (Reason: GAS) docusate sodium 100 mg Tablet 100 mg PO BID quetiapine 50 mg Tablet 50 - 100 mg PO BEDTIME Fasenra 30 mg/mL syringe 30 mg subcut Q8W clonazepam 1 mg tablet 1 mg PO DAILY rosuvastatin 10 mg tablet 10 mg PO DAILY ertapenem 1 gram recon soln 1 g IV DAILY Qty: 6 0RF (DME) oxygen-air delivery systems Device See Rx Instructions .ROUTE .MEDSUPPLY Qty: 1 Rx Instructions: As directed albuterol sulfate 90 mcg/actuation HFA aerosol inhaler 2 puff inhalation Q4H PRN (Reason: Wheezing) Qty: 8.5 11RF gabapentin 300 mg capsule 300 mg PO BID carboxymethylcellulose sodium 0.5 % dropperette 1 drp ophthalmic (eye) BID PRN (Reason: dry eye(s)) 30 Days Qty: 30 2RF diphenhydramine HCl [Banophen] 25 mg capsule 25 mg PO BEDTIME PRN (Reason: sleep) Qty: 30 0RF AsperFlex (lidocaine HCl) 4 % ointment See Rx Instructions topical .COMPLEX Qty: 100 0RF Rx Instructions: use 1-2 inch ointment and apply up to 3 times daily on L shoulder topically; topiramate 100 mg tablet 100 mg PO BID (DME) blood pressure kit-extra large Kit See Rx Instructions .Route Qty: 1 0RF Rx Instructions: As directed amitriptyline 100 mg tablet 100 mg PO BEDTIME bupropion HCl 300 mg tablet extended release 24 hr 300 mg PO DAILY zolpidem 10 mg tablet 10 mg PO BEDTIME PRN gabapentin 400 mg capsule 400 mg PO TID Referrals: Farideh Starr MD [Primary Care Provider] - (Fall, generalized body pains after fall) Print Language: Telugu
[2024-05-31 22:29] LABS: Glucose, Whole Blood 88 mg/dL (60-115)
[2024-05-31 22:47] LABS: MANUAL DIFF FLAG NO
[2024-05-31 22:49] LABS: Hematocrit 36.9 % (37.0-47.0); Hemoglobin 11.6 g/dl (12.0-16.0); Imm Gran Abs Auto 0.04 X10*3/uL (0.00-0.03); Imm Gran Pct Auto 0.6 % (0.0-0.4); Lymphocytes Absolute Auto 1.3 X10*3/uL (1.2-4.9); Lymphocytes Percent Auto 18.8 % (20-40); Mean Corpuscular HGB Conc 31.4 g/dl (31.0-35.0); Mean Corpuscular Hemoglobin 28.3 pg (27.0-33.0); Mean Platelet Volume 9.5 fL (9.4-12.3); Monocytes Absolute Auto 0.5 X10*3/uL (0.1-1.2); Monocytes Percent Auto 6.7 % (2-11); Neutrophils Absolute Auto 5.1 x10*3/uL (2.0-8.3); Neutrophils Percent Auto 73.9 % (45-73); Platelet Count 275 X10*3/uL (160-400); Red Cell Distribution Width 16.1 % (11.0-16.0); White Blood Count 6.9 X10*3/uL (4.8-10.8)
[2024-05-31 23:04] LABS: Alanine Aminotransferase 12 U/L (0-31); Albumin Level 3.8 g/dL (3.5-5.0); Alkaline Phosphatase 94 U/L (39-117); Anion Gap 11 (12-20); Aspartate Amino Transferase 16 U/L (5-31); Bilirubin Total 0.2 mg/dL (0.0-1.0); Blood Urea Nitrogen 12 mg/dL (9-16); Calcium 9.2 mg/dL (8.4-10.2); Carbon Dioxide 27 mmol/L (22-29); Chloride 110 mmol/L (96-108); Estimated Glomerular Filt Rate > 60; Glucose Random 106 mg/dL (60-115); Potassium 4.1 mmol/L (3.3-5.1); Sodium 144 mmol/L (135-145); Total Protein 6.5 g/dL (6.5-8.0)
[2024-05-31 23:14] LABS: Troponin-I High Sensitivity < 2.7 ng/L (<3.5-17.0)
[2024-06-01 01:50] VITALS: BP 118/74; PULSE 82; RESP 16; TEMP 36.8; O2SAT 99
[2024-06-01 04:40] VITALS: BP 124/73; PULSE 90; RESP 12; TEMP 36.6; O2SAT 100
[2024-06-01] MEDS: Acetaminophen 325 MG TABLET 975 MG PO (04:41)
[2024-06-01] MEDS: Ibuprofen 600 MG TABLET PO (04:42)
[2024-06-01 06:37] VITALS: BP 125/84; PULSE 87; RESP 9; TEMP 36.5; O2SAT 98
--- NOTE | 2024-06-01 06:47 | PC.NURSE ---
pt rested comfortably throughout the night, no needs at this time, call madeleine w/in reach
[2024-06-01 08:38] VITALS: BP 107/72; PULSE 86; RESP 12; O2SAT 98
--- NOTE | 2024-06-01 09:43 | PC.NURSE ---
patient ambulated with steady gait to the bathroom with walker
[2024-06-01 10:40] VITALS: BP 133/90; PULSE 87; RESP 20; TEMP 36.1; O2SAT 97
== END 2024-06-01 10:41 | disposition home or self-care (01) ==
PROVIDERS: Emergency Provider Emergency Medicine; PCP Internal Medicine
DX: M79.10 Myalgia, unspecified site (principal); Z91.81 History of falling; I45.19 Other right bundle-branch block; R42 Dizziness and giddiness; Z79.899 Other long term (current) drug therapy; E78.5 Hyperlipidemia, unspecified; Z87.440 Personal history of urinary (tract) infections
CPT/HCPCS: 36415; 70450; 71250; 72125; 74176; 80053; 82947; 84484; 85025; 93005; 99285

== ENCOUNTER → 2024-05-31 22:09 | Outpatient (BNV) | payer OTHER, SELFPAY | PROVIDERS: Emergency Provider Emergency Medicine; PCP Internal Medicine; Visit Provider Internal Medicine Cardiovascular Disease | DX: R94.31 Abnormal electrocardiogram [ECG] [EKG] (principal) | CPT/HCPCS: 93010 ==

== ENCOUNTER 2024-06-13 13:00 | Outpatient (AMB) | payer OTHER, SELFPAY ==
[2024-06-13 13:14] VITALS: BMI 39.9
--- NOTE | 2024-06-13 13:14 | MHC.OFFVIS ---
Vital Signs 06/13/24 13:14 Height 5 ft 1 in Weight 211 lb BMI 39.9 Intake Visit Reasons: DEXA follow up Aquarium Specialist Required: Yes Aquarium Specialist Language: Sales Manager [place] Services: Aquarium Specialist Present (in person) Aquarium Specialist Name: Kayla WRIGHT Information Interpreted: non-clinical & clinical Step Down Nurse: Step Down Nurse Present (Kayla WRIGHT) Accompanied by: Daughter Allergies No Known Allergies Allergy (Verified 06/13/24 13:15) HPI Comments Details: The patient is presenting for follow up regarding DEXA scan results. T score @ spine and femoral Neck respectively were=-0.8 /-1.6 and 10 year FRAX risk = 4.8/0.5% for severe osteoporosis and fracture. Complaining of vulvovaginal irritation and itching PFSH Medical History Morbid obesity Avascular necrosis Physical exam Well woman exam Pre-op evaluation RSV (acute bronchiolitis due to respiratory syncytial virus) Chest pain Palpitations URI (upper respiratory infection) Snoring Encounter for screening for malignant neoplasm of colon Lumbar pain Urinary incontinence Low blood pressure Allergic reaction UTI (urinary tract infection) Palpitations Morbid obesity with BMI of 40.0-44.9, adult Epigastric abdominal pain Oxygen dependent Hypothyroidism Hypersomnia ILD (interstitial lung disease) ROB on CPAP History of ESBL E. coli infection Obstructive sleep apnea Moderate recurrent major depression Urinary retention Acute and chronic respiratory failure with hypoxia COVID-19 Lupus (systemic lupus erythematosus) Polyarthralgia Neck mass Eosinophilia Severe asthma Asthma-COPD overlap syndrome Trigger finger of right hand Recurrent UTI Tachycardia Obesity Lumbar degenerative disc disease GERD (gastroesophageal reflux disease) Hemangioma Hypovitaminosis D Bipolar 1 disorder Depression with anxiety Insomnia COPD (chronic obstructive pulmonary disease) Surgical History Hx of hand surgery Hx of cardiac catheterization History of esophagogastroduodenoscopy (EGD) History of cystocele History of colonoscopy History of shoulder surgery History of carpal tunnel release History of hysterectomy History of section History of tonsillectomy Family History Father Prostate cancer Mother No problems noted. Sister Nasopharyngeal cancer Social History Household Members: None Household Members Other:: 1 Housing: Apartment Do you presently have visiting nurse or other home services: Yes (Has TURBINE ATTENDANT) Alcohol intake: never Comment: sleeping Patient Tobacco Use Status: Former Tobacco user Years Smoked: 14 +/- e-Cigarette/Vaping Use: Never Used Second Hand Smoke Exposure: No Advance Directives Date on File: 01/08/21 service: No Current occupational status: disabled Current occupation: right and left handed--- HAS TURBINE ATTENDANT SERVICES Cognitive needs: Yes (walker ) Hearing needs: No Vision needs: Yes Female Reproductive History Menstrual Age of Menarche: 12 Review of Systems Const All systems reviewed & are unremarkable except as noted in HPI and below Reports as per HPI and Reports no additional complaints GI Reports no additional complaints Reports no additional complaints Physical Exam Vital Signs: BMI result Body Mass Index 39.9 General: Yes no CVA tenderness External Female Exam: normal external appearance and normal appearance of the urethra Speculum Exam - Vagina: normal appearance of the vagina, normal palpation, no lesions and no masses Speculum Exam - Cervix: normal appearance of the cervix, normal palpation, no lesions, no masses and nontender Bimanual exam- vagina & uterus: normal bimanual exam, normal palpation, uterine size normal, normal palpation, uterine shape normal, No Cervical tenderness present and non-tender Bimanual Exam- Adnexa, other: normal adnexae Back/Spine/Pelvis Back: no CVA tenderness Assessment & Plan Assessment & Plan (1) Osteopenia: Code(s): M85.80 - Other specified disorders of bone density and structure, unspecified site Category: Medical Plan: Discussed with the patient the DEXA results and FRAX risk. FRAX risk and T score showed no evidence of osteoporosis. Discussed with the patient all the options for osteoporosis prevention including lifestyle modifications including Ca+D supplements 1200 mg po qd/800 MIU, Weight bearing exercises and proteine supplements. The patient verbalized understanding and agreed plan will repeat DEXA in 2 years. (2) Atrophic vaginitis: Code(s): N95.2 - Postmenopausal atrophic vaginitis Category: Medical Plan: Discussed with the patient the finding on physical exam the differential diagnosis including atrophic vaginitis versus allergic reaction to the pads. Instructed the patient try to avoid using past 1 at home if improvement occurs, to try to use different brands to avoid allergy. All questions answered, the patient verbalized understanding Coding Level of Care Code Est Pt Level 3 (84016) Diagnoses Osteopenia M85.80 Atrophic vaginitis N95.2
== END 2024-06-13 13:47 | disposition home or self-care (01) ==
PROVIDERS: PCP Internal Medicine; Visit Provider Obstetrics & Gynecology
DX: M85.80 Other specified disorders of bone density and structure, unspecified site (principal); N95.2 Postmenopausal atrophic vaginitis
CPT/HCPCS: 99213

== ENCOUNTER → 2024-06-13 13:00 | Outpatient (BNVA) | payer OTHER, SELFPAY | PROVIDERS: PCP Internal Medicine; Visit Provider Obstetrics & Gynecology | DX: N95.2 Postmenopausal atrophic vaginitis (principal); M85.80 Other specified disorders of bone density and structure, unspecified site; Z87.891 Personal history of nicotine dependence | CPT/HCPCS: 99212 ==

== ENCOUNTER → 2024-06-19 13:08 | Outpatient (REF) | payer OTHER, SELFPAY ==
--- NOTE | 2024-06-19 13:11 | CA_ITS ---
Transthoracic Echocardiogram Patient (Last, First, Middle): Gracy Silva, Gender: Female Date of : 1960 Age: 64 Procedure Date: 06/19/2024 Procedure Type: Transthoracic Echocardiogram Location: OP Height: 154.94 cm Weight: 97.07 kg BSA: 1.94 m2 Heart Rate: bpm BP: 112 / 80 mmHg Screw Remover: YANET Referring MD: Farideh Marquez MD Cardiac Catheterization Technologist: Demarcus Reeves MD Symptoms: I42.9 - Cardiomyopathy, unspecified Study Quality: Technically Difficult ECG Rhythm: Sinus Conclusions: - 1. [id number] LV systolic dysfunction with LV ejection fraction 40-45% with impaired relaxation filling pattern 2. Cardiac valvular Dopplers within normal limits Findings Procedure Information Contrast agent, definity, is being given per protocol without apparent complications. Left Ventricle Normal left ventricular cavity size. There is normal left ventricular wall thickness. The left ventricular systolic function is mild to moderately decreased. The visually estimated ejection fraction is between 40-45%. Spectral Doppler is indicative of an impaired relaxation filling pattern. E/E prime ratio is between 8 and 15 consistent with indeterminate filling pressures. Right Ventricle Normal right ventricular cavity size and systolic function. Atria The left atrium is normal in size. There is no evidence of interatrial shunt. Aortic Valve The aortic valve was not well visualized. There is no aortic valve stenosis. There is no aortic valve regurgitation. Mitral Valve Likely normal mitral valve structure and function. There is trace mitral valve regurgitation. There is no mitral valve stenosis. Pulmonic Valve The pulmonic valve was not well visualized. Tricuspid Valve The tricuspid valve was not well visualized. Tricuspid regurgitation envelope is inadequate for calculation of right ventricular systolic pressure. Normal right atrial pressure. Great Vessels The aorta was not well visualized. The pulmonary artery was not well visualized. Venous The inferior vena cava is normal in size. Pericardium/Pleural The pericardium was not well visualized. Prior Study Comparison Changes noted compared to prior study dated: 06/07/2022. Marginal reduction LV ejection fraction Measurements 2D Linear Measurements IVSd: 1.09 0.6-0.9/0.6-1.0 cm LVIDd: 4.27 3.9-5.3/4.2-5.9 cm LVIDd Index: 2.20 2.4-3.2/2.2-3.1 cm/m2 LVIDs: 3.11 2.0-3.6 cm LVPWd: 0.94 0.7-1.1 cm LA Diam: 2.80 2.7-3.8/3.0-4.0 cm LAIDs Index: 1.44 1.5-2.3 cm/m2 LV Mass: 178.46 67-162/88-224 g LV Mass Index: 91.99 43-95/49-115 g/m2 LVOT Diam: 2.00 3.0+(-)1.3 cm 2D Systolic Function EF 4C: 41.00 >55% EF 2C: 45.30 >55% EF BiP: 42.00 >55% Mitral Valve MV Pk E: 0.49 MV PK A: 0.67 MV Decel Time: 258.00 E/A: 0.70 E'Lateral: 6.42 E'Medial: 3.92 E/E' Med: 12.60 E/E' Lat: 7.70 PHT: 76.00 MVA PHT: 2.89 Decel [place]: 1.91 Aortic Valve AoV Pk Tommy: 1.31 AoV Mn Tommy: 0.96 AoV VTI: 0.25 AoV Pk Grad: 7.00 Aov Mn Grad: 4.00 MATT Cont.VTI: 1.87 LVOT LVOT Pk Tommy: 0.76 LVOT Mn Tommy: 0.52 LVOT VTI: 0.15 LVOT Pk Grad: 2.00 LVOT Mn Grad: 1.00 LVOT Diam: 2.00 LVOT Area: 3.14 Diastolic Function MV Pk E: 0.49 MV Pk A: 0.67 E/A: 0.70 E'Medial: 3.92 E/E' Med: 12.60 E' Laterial: 6.42 E/E' Lat: 7.70 Right Ventricle TAPSE (mm): 21.20 TVS' Tommy: 8.05 Tricuspid Valve RA Press: 3.00 Great Vessels Aorta Sinus of Valsalva: 2.73 2.0-3.5 cm Ao Asc: 3.10 2.1-3.4 cm Updated in Other Vendor System with Status of Final Demarcus Reeves MD electronically signed on 06/19/2024 2:55:38 PM with status of Final
== END ==
LOC: HO.CARD 13:08
PROVIDERS: PCP Internal Medicine; Visit Provider Internal Medicine
DX: I42.9 Cardiomyopathy, unspecified (principal)
CPT/HCPCS: 93306; Q9957

== ENCOUNTER → 2024-06-19 13:11 | Outpatient (BNV) | payer OTHER, SELFPAY | PROVIDERS: PCP Internal Medicine; Visit Provider Internal Medicine Cardiovascular Disease | DX: I42.9 Cardiomyopathy, unspecified (principal); R93.1 Abnormal findings on diagnostic imaging of heart and coronary circulation | CPT/HCPCS: 93306 ==

== ENCOUNTER 2024-07-12 14:26 | Outpatient (AMB) | payer OTHER, SELFPAY ==
[2024-07-12 14:37] VITALS: BP 128/60; PULSE 90; O2SAT 98; BMI 39.9
--- NOTE | 2024-07-12 14:37 | A.OFFVIS_ITS ---
Vital Signs 07/12/24 14:37 Height 5 ft 1 in Weight 210 lb 15.718 oz BMI 39.9 BP 128/60 Blood Pressure Location Lt brachial Position Sitting Pulse 90 Pulse Source Pulse Oximeter Pulse Oximetry (%) 98 Oxygen Delivery Method Room Air Intake Visit Reasons: Asthma Boss Dyer Required: No Allergies No Known Allergies Allergy (Verified 07/12/24 14:41) HPI Comments Details: The patient is a 64-year-old woman with a known history of Asthma COPD in addition to obstructive sleep apnea and respiratory failure oxygen, who recently moved to to the area from [place]. Upon moving to [place], after few weeks she ended up with worsening respiratory status and she was admitted to [facility] with a COPD exacerbation and also possibility of pneumonia. She did undergo a CT scan of the chest demonstrating areas of atelectasis scarring also demonstrated hyperexpansion of the lungs. She has significant morbid obesity as well. The patient was treated and subsequently released. She has been using her rescue inhaler often. She typically uses Xopenex due to tachyarrhythmias. She responded well to Trelegy in the past. She also has a history of sleep apnea. However, since she moved to the [facility] he has not been able to use 1. She continues to have daytime drowsiness. Her [place] score is el evated 10/22. The patient also has multiple complaints including significant rashes in the chin is the eyes. In the office we did take her for brief walking oximetry. She quickly desaturated to 87% heart rate increased to the 130s 40s-1 appears to be an SVT. The patient is pretty symptomatic a mario score 8/10. At 2 L the patient's oxygen improved to 97%. She will continue using oxygen with activity and also sleep. She still having issues with heart rate being elevated also is feeling tired and drowsy. We did review her sleep study demonstrating moderate sleep apnea. The patient does have significant issues with tachycardia and also hypoxia and sleep study. I did recommed she undergo a titration study at the hospital. In the meantime she can use the oxygen at home. Will set her up with an auto APAP at this time. Will also try to keep her on the oxygen and possible. When she situated with the CPAP will have to do an overnight oximetry to see if she is getting enough oxygenation. She continues use her respiratory therapy with good effect. She still waiting for echo. Currently on hold because of the circumstances. It appears that her white count is demonstrate significant eosinophilia suggesting eosinophilic induced asthma exacerbations and also the possibility of eosinophilic pneumonia. The patient at this point has been failing in aggressive respiratory regimen and she also has been on multiple courses of corticosteroid therapy. For this reason the patient will be a great candidate for L5 inhibitors,Fasenra in noted to improve her asthma control and also decrease the prednisone use. She continues use the oxygen with good effect. 10/24/2023 the patient is here for sick visit. Apparently she started developing worsening chest tightness wheezing cough. She could not tolerate the symptoms any longer and she was brought to the ER. She tested positive for RSV just yesterday. The patient was given Solu-Medrol and then discharged on prednisone. Her cough is congested. Moderate severity with yellow sputum. Positive sick contacts in the family. She has been using her respiratory therapy with good effect initially but now does not seem to be helping as much. She does have a nebulizer available. I did look at her x-ray did not demonstrate any acute disease which is reassuring. Will go ahead and have her start prednisone although she only got prednisone for 5 days so I will give her a prescription on paper that therefore she can continue. She will also start a course of doxycycline to treat her for postviral bacterial infections. She will monitor closely her asthma symptoms. She also has oxygen at home. If she notices that her oxygen levels are dropping even further then she may need to go back to the ER. 03/26/2024 the patient is here for pulmonary follow-up visit. Overall her breathing is better. The patient did have shoulder surgery after she is started developing shingles over the left shoulder area. She has been following closely with Infectious Disease. She has not significant post herpetic neuralgia. She will try using the Lidoderm patches over the chest area to try to minimize symptoms. In addition to that she continues use her respiratory medications with good effect. She has not had to use any rescue medicine or prednisone which is reassuring. The patient also has been having difficulty at nighttime because of this pain discomfort due to the post herpetic neuralgia. She does have oxygen available and she can use use the oxygen for now until she gets more comfortable. When she is more comfortable we can have her restart using the CPAP. 07/12/2024 the patient is here for a pulmonary follow-up visit. Since we last spoke she has had worsening cough. Chest congestion. Qjad-jh-dxreixiu severit y. She has been using all her respiratory therapy. Denies any sick contacts. She has been responding well to the Fasenra injection. That has controlled her asthma. In the meantime she appears to have a bout of bronchitis. Therefore go ahead treated with doxycycline. The patient also having issues with her post herpetic neuralgia pain. His primarily in the chest area effects of breathing. Therefore I will send her Lidoderm patches to see if this helps alleviate the discomfort that she can work on taking deep breaths. When she feels better she should restart using her CPAP regularly. She will bring her CPAP to the next visit. [facility] Medical History Morbid obesity Avascular necrosis Physical exam Well woman exam Pre-op evaluation RSV (acute bronchiolitis due to respiratory syncytial virus) Chest pain Palpitations URI (upper respiratory infection) Snoring Encounter for screening for malignant neoplasm of colon Lumbar pain Urinary incontinence Low blood pressure Allergic reaction UTI (urinary tract infection) Palpitations Morbid obesity with BMI of 40.0-44.9, adult Epigastric abdominal pain Oxygen dependent Hypothyroidism Hypersomnia ILD (interstitial lung disease) ROB on CPAP History of ESBL E. coli infection Obstructive sleep apnea Moderate recurrent major depression Urinary retention Acute and chronic respiratory failure with hypoxia COVID-19 Lupus (systemic lupus erythematosus) Polyarthralgia Neck mass Eosinophilia Severe asthma Asthma-COPD overlap syndrome Trigger finger of right hand Recurrent UTI Tachycardia Obesity Lumbar degenerative disc disease GERD (gastroesophageal reflux disease) Hemangioma Hypovitaminosis D Bipolar 1 disorder Depression with anxiety Insomnia COPD (chronic obstructive pulmonary disease) Surgical History Hx of hand surgery Hx of cardiac catheterization History of esophagogastroduodenoscopy (EGD) History of cystocele History of colonoscopy History of shoulder surgery History of carpal tunnel release History of hysterectomy History of section History of tonsillectomy Family History Father Prostate cancer Mother No problems noted. 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 FINANCIAL ADVISER SERVICES Cognitive needs: Yes (walker ) Hearing needs: No Vision needs: Yes Female Reproductive History Menstrual Age of Menarche: 12 Review of Systems Const Reports body aches, Reports fatigue, Reports lethargy and Reports malaise Eyes Reports no additional complaints, Denies change in vision, Reports itchy eyes and Denies other visual disturbances ENT Reports dysphagia and Reports dizziness Card Denies chest pain at rest, Denies chest pain with activity, Denies edema, Denies irregular heart rhythm, Denies claudication, Denies dyspnea, Reports dyspnea on exertion, Denies orthopnea, Denies paroxysmal nocturnal dyspnea and Denies slow heart rate Resp Reports change in phlegm color, Reports chest congestion, Reports cough, Denies dyspnea, Reports dyspnea on exertion and Reports wheezing GI Denies abdominal pain, Reports dysphagia, Denies excessive flatus, Reports dyspepsia, Reports heartburn, Denies nausea and Denies vomiting Denies urinary incontinence, Denies urinary hesitancy and Denies urinary urgency Musc Reports abnormal gait, Denies atrophy, Denies deformity, Reports arthralgias and Denies limited range of motion Neuro Reports abnormal gait, Denies confusion and Reports dizziness Psych Denies confusion Endo Reports fatigue Aller/Immun Reports itchy eyes and Reports wheezing Physical Exam Vital Signs: Last Vital Signs Pulse 90 07/12/24 14:37 BP 128/60 07/12/24 14:37 Pulse Ox 98 07/12/24 14:37 Oxygen Delivery Method Room Air 07/12/24 14:37 BMI result Body Mass Index 39.9 Const General: No confusion Orientation/consciousness: No confusion HEENT General nose exam: Abnormal external nose present and Nasal discharge present Neck Neck: Yes supple Chest Chest palpation & inspection: normal inspection of the chest Resp Effort & Inspection: Actively coughing Quality: productive Auscultation: no rales, wheezes and diminished lung sounds Cardio Rate: regular rate Rhythm: regular rhythm Heart sounds: S1 normal heart sound present and S2 normal heart sound present GI Palpation (GI): Soft to palpation and nontender Auscultation: normal bowel sounds Skin General skin exam: rashes and/or lesions noted Neuro General: No confusion Assessment & Plan Assessment & Plan (1) Severe asthma: Comment: Eosinophilic asthma Code(s): J45.909 - Unspecified asthma, uncomplicated Category: Medical Qualifiers: Asthma complication type: with acute exacerbation Asthma persistence: persistent Qualified Code(s): J45.51 - Severe persistent asthma with (acute) exacerbation (2) Oxygen dependent: Comment: pulmonology note 12/21/22 states no longer qualifies for supplemental O2 Code(s): Z99.81 - Dependence on supplemental oxygen Category: Medical (3) GERD (gastroesophageal reflux disease): Code(s): K21.9 - Gastro-esophageal reflux disease without esophagitis Category: Medical Qualifiers: Esophagitis presence: without esophagitis Qualified Code(s): K21.9 - Gastro-esophageal reflux disease without esophagitis (4) ROB on CPAP: Code(s): G47.33 - Obstructive sleep apnea (adult) (pediatric); Z99.89 - Dependence on other enabling machines and devices Category: Medical (5) ILD (interstitial lung disease): Code(s): J84.9 - Interstitial pulmonary disease, unspecified Category: Medical (6) Post herpetic neuralgia: Code(s): B02.29 - Other postherpetic nervous system involvement Category: Medical Plan continue Trelegy 200 1 inhalation daily FERMIN as needed continue oxygen with sleep 2 L/min and with activity Needs to start APAP. provided p10 mask. Should bring it the CPAP to the next visit. start Lidoderm patches doxycycline x 10 days continue Fasenra F/U 6 months Medications: New lidocaine 5% (Lidoderm) leave on most painful area for up to 12 hrs 1 patch topical DAILY 30 ea 4RF 30 days B02.29 - Other postherpetic nervous system involvement doxycycline hyclate 100 mg PO BID 20 caps 0RF 10 days Coding Level of Care Code Est Pt Level 4 (40785) Complex EM visit Add On G2211 Diagnoses Severe persistent asthma with acute exacerbation J45.51 Asthma complication type: with acute exacerbation Asthma persistence: persistent Oxygen dependent Z99.81 Gastroesophageal reflux disease without esophagitis K21.9 Esophagitis presence: without esophagitis ROB on CPAP G47.33; Z99.89 ILD (interstitial lung disease) J84.9 Post herpetic neuralgia B02.29 Time Spent (min) 17
== END 2024-07-12 15:14 | disposition home or self-care (01) ==
PROVIDERS: PCP Internal Medicine; Visit Provider Hospitalist
DX: J45.51 Severe persistent asthma with (acute) exacerbation (principal); Z99.81 Dependence on supplemental oxygen; K21.9 Gastro-esophageal reflux disease without esophagitis; G47.33 Obstructive sleep apnea (adult) (pediatric); Z99.89 Dependence on other enabling machines and devices; J84.9 Interstitial pulmonary disease, unspecified; B02.29 Other postherpetic nervous system involvement
CPT/HCPCS: 99214; G2211

== ENCOUNTER → 2024-07-12 14:26 | Outpatient (BNVA) | payer OTHER, SELFPAY | PROVIDERS: PCP Internal Medicine; Visit Provider Hospitalist | DX: J44.9 Chronic obstructive pulmonary disease, unspecified (principal); G47.33 Obstructive sleep apnea (adult) (pediatric); J45.51 Severe persistent asthma with (acute) exacerbation; J84.9 Interstitial pulmonary disease, unspecified; Z99.81 Dependence on supplemental oxygen; Z99.89 Dependence on other enabling machines and devices; Z87.891 Personal history of nicotine dependence | CPT/HCPCS: 99212 ==

== ENCOUNTER 2024-07-26 19:03 | Emergency (ER) | payer OTHER, SELFPAY ==
--- NOTE | ~2024-07-26 | US_ITS ---
EXAMINATION: US ABDOMEN LIMITED CLINICAL INFORMATION: Right upper quadrant gallbladder common bile duct. COMPARISON: None available. TECHNIQUE: Real-time imaging of the right upper quadrant abdominal viscera tailored to the gallbladder and common bile duct. GALLBLADDER: Normal. The gallbladder is physiologically distended without evidence of stones, sludge, polyps, wall thickening or pericholecystic fluid. COMMON BILE DUCT: Normal in caliber measuring 0.2 cm in diameter. US/US abdomen limited IMPRESSION: Normal right upper quadrant ultrasound tailored to the gallbladder and common bile duct only. Electronically signed by: Everton Orta MD 07/26/2024 08:57 PM EDT
--- NOTE | ~2024-07-26 | XR_ITS ---
EXAMINATION: XR ABDOMEN KUB CLINICAL INDICATION: Abdominal pain COMPARISON: None available. TECHNIQUE: AP view of the abdomen. FINDINGS: There is scattered stool and gas seen throughout the colon without significant distention. No radiopaque calculi or organomegaly seen. There is mild scoliosis of dorsal spine. XR/XR KUB IMPRESSION: Mild to moderate constipation. Electronically signed by: Latrell Steiner MD 07/26/2024 10:32 PM EDT
[2024-07-26 19:13] VITALS: BP 110/98; PULSE 96; O2SAT 98
[2024-07-26 19:20] VITALS: BP 111/63; PULSE 92; RESP 14; TEMP 36.8; O2SAT 98; BMI 42.9
[2024-07-26 19:45] LABS: MANUAL DIFF FLAG NO
[2024-07-26 19:47] LABS: Basophils Percent Auto 0.2 % (0-2); Hemoglobin 12.2 g/dl (12.0-16.0); Imm Gran Abs Auto 0.07 X10*3/uL (0.00-0.03); Imm Gran Pct Auto 1.1 % (0.0-0.4); Lymphocytes Absolute Auto 0.6 X10*3/uL (1.2-4.9); Lymphocytes Percent Auto 10.1 % (20-40); Mean Corpuscular HGB Conc 32.1 g/dl (31.0-35.0); Mean Corpuscular Hemoglobin 29.4 pg (27.0-33.0); Mean Corpuscular Volume 91.6 fL (80.0-98.0); Mean Platelet Volume 9.3 fL (9.4-12.3); Monocytes Absolute Auto 0.4 X10*3/uL (0.1-1.2); Monocytes Percent Auto 5.9 % (2-11); Neutrophils Absolute Auto 5.2 x10*3/uL (2.0-8.3); Neutrophils Percent Auto 82.7 % (45-73); Platelet Count 284 X10*3/uL (160-400); Red Blood Count 4.15 X10*6/uL (4.20-5.50); White Blood Count 6.2 X10*3/uL (4.8-10.8)
[2024-07-26 20:11] LABS: Alanine Aminotransferase 14 U/L (0-31); Albumin Level 3.8 g/dL (3.5-5.0); Alkaline Phosphatase 95 U/L (39-117); Anion Gap 11 (12-20); Aspartate Amino Transferase 17 U/L (5-31); Bilirubin Total 0.3 mg/dL (0.0-1.0); Blood Urea Nitrogen 12 mg/dL (9-16); Calcium 9.3 mg/dL (8.4-10.2); Carbon Dioxide 25 mmol/L (22-29); Chloride 108 mmol/L (96-108); Creatinine Clr Calc Pharmacy 70.1; Estimated Glomerular Filt Rate > 60; Glucose Random 114 mg/dL (60-115); Lipase 13 U/L (8-78); Magnesium 2.1 mg/dL (1.6-2.6); Potassium 4.1 mmol/L (3.3-5.1); Sodium 140 mmol/L (135-145); Total Protein 6.8 g/dL (6.5-8.0)
[2024-07-26 20:38] VITALS: BP 126/66; PULSE 98; RESP 18; TEMP 36.6; O2SAT 98
[2024-07-26 21:00] VITALS: RESP 14
[2024-07-26] MEDS: Morphine Sulfate 4 MG/ML CARTRIDGE IVPUSH (21:00)
[2024-07-26] MEDS: ondansetron HCL 4 MG/2 ML VIAL IVPUSH (21:01)
[2024-07-26] MEDS: 0.9 % Sodium Chloride 500 ML IV (21:01)
--- NOTE | 2024-07-26 21:13 | PC.NURSE ---
Pt hard stick. Pt medicated per mar Pt requested and light turned down. Plan of care ongoing.
--- NOTE | 2024-07-26 21:53 | PC.NURSE ---
Provider placing US guided IV Plan of care ongoing.
--- NOTE | 2024-07-26 22:16 | ED_ITS ---
HPI - Abdominal Pain General Chief Complaint: Abdominal Pain Stated Complaint: RUQ abdominal pain, nausea Time Seen by Provider: 07/26/24 19:09 Source: patient Limitations: language barrier History of Present Illness ED Provider: Geri Ross PA-C HPI narrative: 64-year-old female with a history of morbid obesity, chronic constipation, GERD, hypothyroidism, fibromyalgia, osteoarthritis, hyperlipidemia, bipolar disorder presents with abdominal pain x3 days. Patient states her pain originates in epigastric region, radiates to right upper quadrant and into her back. Pain worse with the eating, associated nausea but no vomiting. Denies fever or diarrhea. Related Data Home Medications ?Medication ?Instructions ?Recorded ?Confirmed oxygen-air delivery systems ##1 08/24/20 05/06/24 topiramate 100 mg tablet 100 mg PO BID 07/13/22 05/06/24 amitriptyline 100 mg tablet 100 mg PO BEDTIME 08/23/23 05/06/24 bupropion HCl 300 mg 24 hr tablet, 300 mg PO DAILY 08/23/23 05/06/24 extended release gabapentin 300 mg capsule 300 mg PO BID 12/20/23 05/06/24 acetaminophen 325 mg tablet 325 mg PO QID PRN Pain 01/27/24 05/06/24 benralizumab 30 mg/mL subcutaneous 30 mg subcut Q8W 01/27/24 05/06/24 syringe (Fasenra) clonazepam 1 mg tablet 1 mg PO DAILY Anxiety 01/27/24 05/06/24 docusate sodium 100 mg tablet 100 mg PO BID 01/27/24 05/06/24 lamotrigine 200 mg tablet 200 mg PO DAILY 01/27/24 05/06/24 pantoprazole 40 mg tablet,delayed 40 mg PO BID 01/27/24 05/06/24 release quetiapine 50 mg tablet 50 - 100 mg PO BEDTIME 01/27/24 05/06/24 rosuvastatin 10 mg tablet 10 mg PO DAILY 01/27/24 05/06/24 simethicone 125 mg tablet 125 mg PO QID PRN GAS 01/27/24 05/06/24 tramadol 50 mg tablet 50 mg PO Q6H PRN Pain 01/27/24 05/06/24 gabapentin 400 mg capsule 400 mg PO TID 03/26/24 05/06/24 zolpidem 10 mg tablet 10 mg PO BEDTIME PRN 03/26/24 05/06/24 esomeprazole magnesium 40 mg 40 mg PO DAILY 07/12/24 capsule,delayed release Previous Rx's ?Medication ?Instructions ?Recorded shower seat #1 ea 11/23/20 miscellaneous medical supply #1 ea 12/22/20 electric wheelchair #1 ea 04/30/22 blood pressure kit-extra large #1 ea 08/29/22 wheeled table with drawers #1 ea 12/05/22 adult diapers pull-ups #240 ea 02/13/23 trazodone 100 mg tablet 100 mg PO BEDTIME PRN sleep 90 05/08/23 days #90 tabs nebulizers (AeroEclipse II #1 ea 05/15/23 Nebulizer) lubiprostone 24 mcg capsule 24 mcg PO BID #180 caps 07/04/23 carboxymethylcellulose sodium 0.5 1 drp ophthalmic (eye) BID PRN dry 10/05/23 % eye drops in a dropperette eye(s) 30 days #30 ea diphenhydramine HCl 25 mg capsule 25 mg PO BEDTIME PRN sleep #30 caps 10/05/23 (Banophen) recliner with power buttons #1 ea 12/02/23 cromolyn 4 % eye drops 1 drp ophthalmic (eye) 6XD 30 days 12/18/23 #10 mL albuterol sulfate 90 mcg/actuation 2 puff inhalation Q4H PRN Wheezing 12/20/23 aerosol inhaler #8.5 grams ertapenem 1 gram solution for 1 g IV DAILY #6 ea 01/30/24 injection lidocaine HCl 4 % topical ointment See Rx Instructions topical 01/31/24 (AsperFlex (lidocaine HCl)) .COMPLEX herpes zoster #100 grams albuterol sulfate 2.5 mg/3 mL 2.5 mg (3 mL) inhalation Q6H PRN 02/14/24 (0.083 %) solution for nebulization for wheezing #150 mL cetirizine 10 mg tablet 10 mg PO DAILY PRN allergy 03/09/24 symptoms 90 days #90 tabs valacyclovir 1 gram tablet 1,000 mg PO Q8H 7 days #21 tabs 04/11/24 levothyroxine 50 mcg tablet 50 mcg PO DAILY@0630 #90 tabs 05/25/24 cholecalciferol (vitamin D3) 25 25 mcg PO DAILY #30 caps 05/27/24 mcg (1,000 unit) capsule (Vitamin D3) fluticasone fur. 200 mcg-umeclid 1 inh inhalation DAILY 30 days #60 05/27/24 62.5 mcg-vilant 25 mcg ea inhalat.powder (Trelegy Ellipta) disposable gloves #200 ea 06/06/24 flushable wipes #240 ea 06/06/24 doxycycline hyclate 100 mg capsule 100 mg PO BID 10 days #20 caps 07/12/24 lidocaine 5 % topical patch 1 patch topical DAILY 30 days #30 07/12/24 (Lidoderm) ea underpads (Bed Underpads) #100 ea 07/24/24 Allergies Allergy/AdvReac Type Severity Reaction Status Date / Time No Known Allergies Allergy Verified 07/26/24 19:27 Review of Systems Review of Systems Yes all other systems are reviewed and are negative Constitutional: Denies fatigue and Denies fever(s) Cardiovascular: Denies chest pain and Denies dyspnea Respiratory: Denies dyspnea Gastrointestinal: Reports abdominal pain, Denies diarrhea, Reports nausea and Denies vomiting Endocrine: Denies fatigue PMFSH Past Medical History Attestation statement: The following information was validated with the patient. Medical History Morbid obesity Avascular necrosis Physical exam Well woman exam Pre-op evaluation RSV (acute bronchiolitis due to respiratory syncytial virus) Chest pain Palpitations URI (upper respiratory infection) Snoring Encounter for screening for malignant neoplasm of colon Lumbar pain Urinary incontinence Low blood pressure Allergic reaction UTI (urinary tract infection) Palpitations Morbid obesity with BMI of 40.0-44.9, adult Epigastric abdominal pain Oxygen dependent Hypothyroidism Hypersomnia ILD (interstitial lung disease) ROB on CPAP History of ESBL E. coli infection Obstructive sleep apnea Moderate recurrent major depression Urinary retention Acute and chronic respiratory failure with hypoxia COVID-19 Lupus (systemic lupus erythematosus) Polyarthralgia Neck mass Eosinophilia Severe asthma Asthma-COPD overlap syndrome Trigger finger of right hand Recurrent UTI Tachycardia Obesity Lumbar degenerative disc disease GERD (gastroesophageal reflux disease) Hemangioma Hypovitaminosis D Bipolar 1 disorder Depression with anxiety Insomnia COPD (chronic obstructive pulmonary disease) Surgical History Hx of hand surgery Hx of cardiac catheterization History of esophagogastroduodenoscopy (EGD) History of cystocele History of colonoscopy History of shoulder surgery History of carpal tunnel release History of hysterectomy History of section History of tonsillectomy Family History Family History Father Prostate cancer Mother No problems noted. Sister Nasopharyngeal cancer Social History Social History Household Members: None Household Members Other:: 1 Housing: Apartment Do you presently have visiting nurse or other home services: Yes (Has PATIENT COORDINATOR) Alcohol intake: never Comment: sleeping Patient Tobacco Use Status: Former Tobacco user Years Smoked: 14 +/- e-Cigarette/Vaping Use: Never Used Second Hand Smoke Exposure: No Advance Directives: Yes Advance Directives on File: Yes Advance Directives Date on File: 01/08/21 service: No Current occupational status: disabled Current occupation: right and left handed--- HAS PATIENT COORDINATOR SERVICES Cognitive needs: Yes (walker ) Hearing needs: No Vision needs: Yes Physical Exam ED Vital Signs: Vital Signs - 24 hr 07/26/24 19:20 07/26/24 20:38 07/26/24 21:00 Temperature 98.2 F 97.9 F Pulse Rate 92 98 Respiratory Rate 14 18 14 Blood Pressure 111/63 126/66 Pulse Oximetry 98 98 Oxygen Delivery Method Room Air Room Air BMI result Body Mass Index 42.9 Const Other: Alert, overall well in appearance Orientation/consciousness: patient oriented x3 Resp Effort & Inspection: normal respiratory effort Cardio Other: Normal peripheral perfusion GI Other: Abdomen is soft, nondistended, obese, mild tenderness with deep palpation no guarding Skin Other: Warm dry no rash Neuro General: patient oriented x3, no focal motor deficits and CN's II-XI intact bilaterally Psych Other: Calm cooperative Procedures Procedure Narrative Procedure Narrative: Ultrasound-guided IV 18 gauge 3-1/4 inch IV placed in left upper extremity. Adequate blood return, line flushes well, secured with Tegaderm Medical Decision Making Medical Decision Making MDM Narrative: 64-year-old female with a history of morbid obesity, chronic constipation, GERD, hypothyroidism, fibromyalgia, osteoarthritis, hyperlipidemia, bipolar disorder presents with abdominal pain x3 days. Patient states her pain originates in epigastric region, radiates to right upper quadrant and into her back. Pain worse with the eating, associated nausea but no vomiting. Denies fever or diarrhea. Problem: Obesity, constipation, GERD History: Per patient I have considered the following differential diagnoses: Biliary colic, cholecystitis, gastritis, pancreatitis , constipation Plan: Screening labs are in process. Given distribution of discomfort in nature of symptoms, I am considering biliary versus gastric versus pancreatic etiology as cause for her symptoms. We will order an ultrasound of the right upper quadrant. Giving morphine, Zofran and fluid. To note she will require an ultrasound-guided IV I have independently reviewed the following tests: Labs: No leukocytosis, not anemic, no electrolyte abnormality Ultrasound right upper quadrant: US ABDOMEN LIMITED CLINICAL INFORMATION: Right upper quadrant gallbladder common bile duct. COMPARISON: None available. TECHNIQUE: Real-time imaging of the right upper quadrant abdominal viscera tailored to the gallbladder and common bile duct. GALLBLADDER: Normal. The gallbladder is physiologically distended without evidence of stones, sludge, polyps, wall thickening or pericholecystic fluid. COMMON BILE DUCT: Normal in caliber measuring 0.2 cm in diameter. US/US abdomen limited IMPRESSION: Normal right upper quadrant ultrasound tailored to the gallbladder and common bile duct only. Electronically signed by: Everton Orta MD 07/26/2024 08:57 PM EDT RP Dictated By: Everton Orta MD Signed By: <Electronically signed by Everton Orta MD in OV> 07/26/242056 We will add a KUB to assess her stool burden KUB:R ABDOMEN KUB CLINICAL INDICATION: Abdominal pain COMPARISON: None available. TECHNIQUE: AP view of the abdomen. FINDINGS: There is scattered stool and gas seen throughout the colon without significant distention. No radiopaque calculi or organomegaly seen. There is mild scoliosis of dorsal spine. XR/XR KUB IMPRESSION: Mild to moderate constipation. Electronically signed by: Latrell Steiner MD 07/26/2024 10:32 PM EDT RP KUB: Lab Data 07/26/24 19:38 07/26/24 19:38 Labs: Lab Results 07/26/24 Range/Units 19:38 WBC 6.2 (4.8-10.8) X10*3/uL RBC 4.15 L (4.20-5.50) X10*6/uL Hgb 12.2 (12.0-16.0) g/dl Hct 38.0 (37.0-47.0) % MCV 91.6 (80.0-98.0) fL MCH 29.4 (27.0-33.0) pg MCHC 32.1 (31.0-35.0) g/dl RDW 15.0 (11.0-16.0) % Plt Count 284 (160-400) X10*3/uL MPV 9.3 L (9.4-12.3) fL Immature Gran % (Auto) 1.1 H (0.0-0.4) % Neut % (Auto) 82.7 H (45-73) % Lymph % (Auto) 10.1 L (20-40) % [place] % (Auto) 5.9 (2-11) % Eos % (Auto) 0.0 (0-4) % Baso % (Auto) 0.2 (0-2) % Lymph # (Auto) 0.6 L (1.2-4.9) X10*3/uL [place] # (Auto) 0.4 (0.1-1.2) X10*3/uL Eos # (Auto) 0.0 (0.0-0.4) X10*3/uL Baso # (Auto) 0.0 (0.0-0.2) X10*3/uL Abs Immat Gran (auto) 0.07 H (0.00-0.03) X10*3/uL Absolute Neuts (auto) 5.2 (2.0-8.3) x10*3/uL Absolute Nucleated RBC 0.000 (0.0-0.012) X10*3/uL Nucleated RBC % (auto) 0.0 (0.0-0.2) /100WBC Sodium 140 (135-145) mmol/L Potassium 4.1 (3.3-5.1) mmol/L Chloride 108 (96-108) mmol/L Carbon Dioxide 25 (22-29) mmol/L Anion Gap 11 L (12-20) BUN 12 (9-16) mg/dL Creatinine 0.87 (0.5-1.4) mg/dL Estim Creat Clear Calc 70.1 Estimated GFR > 60 Random Glucose 114 (60-115) mg/dL Calcium 9.3 (8.4-10.2) mg/dL Magnesium 2.1 (1.6-2.6) mg/dL Total Bilirubin 0.3 (0.0-1.0) mg/dL AST 17 (5-31) U/L ALT 14 (0-31) U/L Alkaline Phosphatase 95 (39-117) U/L Total Protein 6.8 (6.5-8.0) g/dL Albumin 3.8 (3.5-5.0) g/dL Lipase 13 (8-78) U/L Medications Administered Discontinued Medications Generic Name Dose Route Start Last Admin Trade Name Freq PRN Reason Stop Dose Admin Diphenhydramine HCl 25 mg 07/26/24 22:15 07/26/24 22:48 Diphenhydramine Hcl 50 Mg/Ml Vial IVPUSH 07/26/24 22:16 25 mg ONCE ONE Administration Sodium Chloride 500 mls @ 500 mls/hr 07/26/24 19:45 07/26/24 22:30 Ns IV 07/26/24 20:44 Infused .Q1H ONE Infusion Ketorolac Tromethamine 15 mg 07/26/24 22:15 07/26/24 22:50 Ketorolac Tromethamine 15 Mg/Ml Vial IVPUSH 07/26/24 22:16 15 mg ONCE ONE Administration Morphine Sulfate 4 mg 07/26/24 19:45 07/26/24 21:00 Morphine Sulfate 4 Mg/Ml Cartridge IVPUSH 07/26/24 19:46 4 mg ONCE ONE Administration Protocol Ondansetron HCl 4 mg 07/26/24 19:45 07/26/24 21:01 Ondansetron Hcl 4 Mg/2 Ml Vial IVPUSH 07/26/24 19:46 4 mg ONCE ONE Administration Prochlorperazine Edisylate 10 mg 07/26/24 22:15 07/26/24 22:49 Prochlorperazine Edisylate 10 Mg/2 Ml Vial IVPUSH 07/26/24 22:16 10 mg ONCE ONE Administration Discharge Plan Discharge Clinical Impression: Constipation Patient Disposition: Home, Self-Care Instructions: Constipation (ED) Additional Instructions: All of your labs were normal, the ultrasound of your right upper abdomen was normal as well. On the x-ray, it was noted that you were significantly constipated. You need a more aggressive bowel regimen. You need to start using [id number] Colace, this is a stool softener twice daily. In addition, you need to use [id number] MiraLax, mixed the powder per package instructions, and drank it several times a day until you begin having multiple large volume bowel movements. When you clear your current stool burden, you should stay on stool softener daily, and use the MiraLax every other day to help prevent further episodes of constipation. Follow up with your primary care provider as needed. Prescriptions: No Action (DME) shower seat See Rx Instructions .Route .MEDSUPPLY Qty: 1 0RF Rx Instructions: As directed (DME) miscellaneous medical supply [facility] See Rx Instructions .ROUTE .MEDSUPPLY Qty: 1 0RF Rx Instructions: OVERBED TABLE (DME) electric wheelchair See Rx Instructions .Route .MEDSUPPLY Qty: 1 0RF Rx Instructions: As directed (DME) wheeled table with drawers See Rx Instructions .Route .MEDSUPPLY Qty: 1 0RF Rx Instructions: As directed (DME) adult diapers pull-ups 2Xlarge See Rx Instructions .Route .MEDSUPPLY Qty: 240 6RF Rx Instructions: As directed trazodone 100 mg tablet 100 mg PO BEDTIME PRN (Reason: sleep) 90 Days Qty: 90 0RF (DME) nebulizers [AeroEclipse II Nebulizer] [facility] See Rx Instructions .Route Qty: 1 0RF Rx Instructions: As directed lubiprostone 24 mcg capsule 24 mcg PO BID Qty: 180 3RF (DME) recliner with power buttons See Rx Instructions .Route .MEDSUPPLY Qty: 1 0RF Rx Instructions: As directed cromolyn 4 % drops 1 drp ophthalmic (eye) 6XD 30 Days Qty: 10 1RF albuterol sulfate 2.5 mg /3 mL (0.083 %) solution for nebulization 2.5 mg inhalation Q6H PRN (Reason: for wheezing) Qty: 150 11RF cetirizine 10 mg tablet 10 mg PO DAILY PRN (Reason: allergy symptoms) 90 Days Qty: 90 1RF valacyclovir 1 gram tablet 1,000 mg PO Q8H 7 Days Qty: 21 0RF levothyroxine 50 mcg tablet 50 mcg PO DAILY@0630 Qty: 90 0RF cholecalciferol (vitamin D3) [Vitamin D3] 25 mcg (1,000 unit) capsule 25 mcg PO DAILY Qty: 30 1RF Trelegy Ellipta 200-62.5-25 mcg blister with device 1 inh inhalation DAILY 30 Days Qty: 60 12RF (DME) flushable wipes See Rx Instructions .Route .MEDSUPPLY Qty: 240 6RF Rx Instructions: As directed (DME) disposable gloves Misc See Rx Instructions .Route Qty: 200 6RF Rx Instructions: As directed (DME) underpads [Bed Underpads] Pad See Rx Instructions .Route Qty: 100 6RF Rx Instructions: As directed acetaminophen 325 mg tablet 325 mg PO QID PRN (Reason: Pain) lamotrigine 200 mg tablet 200 mg PO DAILY tramadol 50 mg tablet 50 mg PO Q6H PRN (Reason: Pain) pantoprazole 40 mg Tablet,Delayed Release (Dr/Ec) 40 mg PO BID simethicone 125 mg Tablet 125 mg PO QID PRN (Reason: GAS) docusate sodium 100 mg Tablet 100 mg PO BID quetiapine 50 mg Tablet 50 - 100 mg PO BEDTIME Fasenra 30 mg/mL syringe 30 mg subcut Q8W clonazepam 1 mg tablet 1 mg PO DAILY rosuvastatin 10 mg tablet 10 mg PO DAILY ertapenem 1 gram recon soln 1 g IV DAILY Qty: 6 0RF (DME) oxygen-air delivery systems Device See Rx Instructions .ROUTE .MEDSUPPLY Qty: 1 Rx Instructions: As directed albuterol sulfate 90 mcg/actuation HFA aerosol inhaler 2 puff inhalation Q4H PRN (Reason: Wheezing) Qty: 8.5 11RF gabapentin 300 mg capsule 300 mg PO BID carboxymethylcellulose sodium 0.5 % dropperette 1 drp ophthalmic (eye) BID PRN (Reason: dry eye(s)) 30 Days Qty: 30 2RF diphenhydramine HCl [Banophen] 25 mg capsule 25 mg PO BEDTIME PRN (Reason: sleep) Qty: 30 0RF AsperFlex (lidocaine HCl) 4 % ointment See Rx Instructions topical .COMPLEX Qty: 100 0RF Rx Instructions: use 1-2 inch ointment and apply up to 3 times daily on L shoulder topically; topiramate 100 mg tablet 100 mg PO BID (DME) blood pressure kit-extra large Kit See Rx Instructions .Route Qty: 1 0RF Rx Instructions: As directed amitriptyline 100 mg tablet 100 mg PO BEDTIME bupropion HCl 300 mg tablet extended release 24 hr 300 mg PO DAILY zolpidem 10 mg tablet 10 mg PO BEDTIME PRN gabapentin 400 mg capsule 400 mg PO TID esomeprazole magnesium 40 mg capsule,delayed release(DR/EC) 40 mg PO DAILY lidocaine [Lidoderm] 5 % adhesive patch,medicated 1 patch topical DAILY 30 Days Qty: 30 4RF Rx Instructions: leave on most painful area for up to 12 hrs doxycycline hyclate 100 mg capsule 100 mg PO BID 10 Days Qty: 20 0RF Print Language: Hong Konger
[2024-07-26] MEDS: diphenhydrAMINE HCL 50 MG/ML VIAL 25 MG IVPUSH (22:48)
[2024-07-26] MEDS: Prochlorperazine Edisylate 10 MG/2 ML VIAL IVPUSH (22:49)
[2024-07-26] MEDS: Ketorolac Tromethamine 15 MG/ML VIAL IVPUSH (22:50)
[2024-07-27] VITALS: BP 107/57; PULSE 91; RESP 16; TEMP 37.2; O2SAT 96
[2024-07-27 02:00] VITALS: BP 109/63; PULSE 86; RESP 16; TEMP 37.2; O2SAT 95
[2024-07-27 06:00] VITALS: BP 100/67; PULSE 79; RESP 16; TEMP 36.7; O2SAT 95
[2024-07-27 06:27] VITALS: BP 100/67; PULSE 79; RESP 16; TEMP 36.7; O2SAT 95
== END 2024-07-27 07:02 | disposition home or self-care (01) ==
PROVIDERS: Physician Assistant Medical; Emergency Provider Internal Medicine; PCP Internal Medicine
DX: K59.00 Constipation, unspecified (principal); R10.13 Epigastric pain; Z87.891 Personal history of nicotine dependence; Z79.899 Other long term (current) drug therapy
CPT/HCPCS: 36410; 36415; 74018; 76705; 80053; 83690; 83735; 85025; 96361; 96374; 96375; 99285; J0737; J1200; J1885; J2270; J2405

== ENCOUNTER 2024-08-09 10:08 | Outpatient (REF) | payer OTHER, SELFPAY ==
[2024-08-09 10:29] LABS: MANUAL DIFF FLAG NO
[2024-08-09 10:46] LABS: Basophils Percent Auto 0.2 % (0-2); Hematocrit 40.6 % (37.0-47.0); Hemoglobin 12.7 g/dl (12.0-16.0); Imm Gran Abs Auto 0.03 X10*3/uL (0.00-0.03); Imm Gran Pct Auto 0.5 % (0.0-0.4); Lymphocytes Absolute Auto 1.2 X10*3/uL (1.2-4.9); Lymphocytes Percent Auto 19.4 % (20-40); Mean Corpuscular HGB Conc 31.3 g/dl (31.0-35.0); Mean Corpuscular Hemoglobin 28.6 pg (27.0-33.0); Mean Corpuscular Volume 91.4 fL (80.0-98.0); Mean Platelet Volume 9.3 fL (9.4-12.3); Monocytes Absolute Auto 0.4 X10*3/uL (0.1-1.2); Monocytes Percent Auto 6.9 % (2-11); Neutrophils Absolute Auto 4.5 x10*3/uL (2.0-8.3); Platelet Count 349 X10*3/uL (160-400); Red Blood Count 4.44 X10*6/uL (4.20-5.50); Red Cell Distribution Width 14.4 % (11.0-16.0); White Blood Count 6.2 X10*3/uL (4.8-10.8)
[2024-08-09 12:02] LABS: Alanine Aminotransferase 12 U/L (0-31); Alkaline Phosphatase 94 U/L (39-117); Anion Gap 9 (12-20); Aspartate Amino Transferase 17 U/L (5-31); Bilirubin Total 0.3 mg/dL (0.0-1.0); Blood Urea Nitrogen 18 mg/dL (9-16); Calcium 9.5 mg/dL (8.4-10.2); Carbon Dioxide 26 mmol/L (22-29); Chloride 113 mmol/L (96-108); Cholesterol 183 mg/dL (<200); Estimated Glomerular Filt Rate > 60; Glucose Fasting 95 mg/dL (60-99); HDL Cholesterol 48 mg/dL (>40); Iron 85 mcg/dL (30-160); LDL Cholesterol Calculated 117 mg/dL (<100); Percent Iron Saturation 28 % (15-50); Potassium 4.4 mmol/L (3.3-5.1); Sodium 144 mmol/L (135-145); Thyroid Stimulating Hormone 1.22 uIU/mL (0.32-4.0); Total Iron Binding Capacity 303 mcg/dL (228-428); Total Protein 7.1 g/dL (6.5-8.0); Triglycerides 92 mg/dL (<150); Unsaturated Iron Binding 218 ug/dL; Vitamin D 25-OH Total 38.6 ng/mL (>30)
[2024-08-09 12:23] LABS: Folate 10.8 ng/mL (> or = 4.0); Vitamin B12 230 pg/mL (200-900)
[2024-08-14 22:18] LABS: NT-proBNP 38 pg/mL (<125)
== END 2024-08-09 10:09 | disposition home or self-care (01) ==
LOC: HO.LAB 10:08
PROVIDERS: PCP Internal Medicine; Visit Provider Internal Medicine
DX: D64.9 Anemia, unspecified (principal); K21.9 Gastro-esophageal reflux disease without esophagitis; E78.5 Hyperlipidemia, unspecified; I42.9 Cardiomyopathy, unspecified; E03.9 Hypothyroidism, unspecified; E53.8 Deficiency of other specified B group vitamins; E55.9 Vitamin D deficiency, unspecified
CPT/HCPCS: 36415; 80053; 80061; 82306; 82607; 82746; 83540; 83880; 84443; 85025

== ENCOUNTER 2024-08-28 11:03 | Outpatient (AMB) | payer OTHER, SELFPAY ==
[2024-08-28 11:07] VITALS: PULSE 95; O2SAT 99; BMI 41.8
--- NOTE | 2024-08-28 11:07 | A.OFFPC_ITS ---
Vital Signs 08/28/24 11:07 Height 5 ft 1 in Weight 221 lb BMI 41.8 BP not taken reason Patient Refused Pulse 95 Pulse Source Pulse Oximeter Pulse Oximetry (%) 99 Oxygen Delivery Method Room Air Intake Visit Reasons: [facility] 07/27 Constipation Intake Note: Pt requesting refills on topiramate and hydrocortisone cream, possibly lidocaine patches. She stated the nurses suggested she get prescribed cranberry capsules. Ironworker Required: Yes Ironworker Language: Paraguayan Accompanied by: Daughter Allergies No Known Allergies Allergy (Verified 08/28/24 11:08) Tobacco use date assessed: 12/20/23 Fall risk assessment: No Falls in past year Last assessed Fall Risk: 08/28/24 Dental Screening Dental Screen Date: 12/20/23 HPI HPI Comments History of Present Illness Details 64 Y/O Female patient who presents to [facility] today for EDF. She was admitted at [facility] on 07/27/24 for Constipation issues and was discharged home the same day on mediations. She was started on Amitiza and Linzess for constipation by GI. Her next appointment with GI is in September. [facility] Medical History Morbid obesity Avascular necrosis Physical exam Well woman exam Pre-op evaluation RSV (acute bronchiolitis due to respiratory syncytial virus) Chest pain Palpitations URI (upper respiratory infection) Snoring Encounter for screening for malignant neoplasm of colon Lumbar pain Urinary incontinence Low blood pressure Allergic reaction UTI (urinary tract infection) Palpitations Morbid obesity with BMI of 40.0-44.9, adult Epigastric abdominal pain Oxygen dependent Hypothyroidism Hypersomnia ILD (interstitial lung disease) ROB on CPAP History of ESBL E. coli infection Obstructive sleep apnea Moderate recurrent major depression Urinary retention Acute and chronic respiratory failure with hypoxia COVID-19 Lupus (systemic lupus erythematosus) Polyarthralgia Neck mass Eosinophilia Severe asthma Asthma-COPD overlap syndrome Trigger finger of right hand Recurrent UTI Tachycardia Obesity Lumbar degenerative disc disease GERD (gastroesophageal reflux disease) Hemangioma Hypovitaminosis D Bipolar 1 disorder Depression with anxiety Insomnia COPD (chronic obstructive pulmonary disease) Surgical History Hx of hand surgery Hx of cardiac catheterization History of esophagogastroduodenoscopy (EGD) History of cystocele History of colonoscopy History of shoulder surgery History of carpal tunnel release History of hysterectomy History of section History of tonsillectomy Family History Father Prostate cancer Mother No problems noted. Sister Nasopharyngeal cancer Social History Household Members: None Household Members Other:: 1 Housing: Apartment Do you presently have visiting nurse or other home services: Yes (Has PROTOTYPE DEICER ASSEMBLER) Alcohol intake: never Comment: sleeping Patient Tobacco Use Status: Former Tobacco user Years Smoked: 14 +/- e-Cigarette/Vaping Use: Never Used Second Hand Smoke Exposure: No Advance Directives Date on File: 01/08/21 service: No Current occupational status: disabled Current occupation: right and left handed--- HAS PROTOTYPE DEICER ASSEMBLER SERVICES Cognitive needs: Yes (walker ) Hearing needs: No Vision needs: Yes Female Reproductive History Menstrual Age of Menarche: 12 Questionnaire Thrive Questionnaire Date Thrive assessed: 01/28/24 DAO-7 AMB Questionnaire DAO-7 Date DAO - 7 assessed: 12/20/23 Source: Developed by Drs. Power Thornton, Melissa Peñaloza, Master Grijalva and colleagues, with an educational sudhir from [employer]. Review of Systems Const All systems reviewed & are unremarkable except as noted in HPI and below Physical exam (Primary Care) Vital Signs: Last Vital Signs Pulse 95 08/28/24 11:07 Pulse Ox 99 08/28/24 11:07 Oxygen Delivery Method Room Air 08/28/24 11:07 BMI result Body Mass Index 41.8 Tobacco/Smoking Status: Tobacco use Status Tobacco use date assessed 12/20/23 08/28/24 11:21 Patient Tobacco Use Status Former Tobacco user 08/28/24 11:21 Tobacco use type 06/13/24 13:49 e-Cigarette/Vaping Use Never Used 08/28/24 11:21 Thrive Assessment: Date of Thrive Assessment Date Thrive assessed 01/28/24 08/28/24 11:21 Const General: no acute distress Nutritional Appearance: obese Orientation/consciousness: patient oriented x3 Limitations: ambulation with walker Resp Effort & Inspection: normal respiratory effort Auscultation: clear to auscultation bilaterally Cardio Heart sounds: S1 normal heart sound present and S2 normal heart sound present GI Inspection: Yes Abdominal panniculus present and Yes obesity Palpation (GI): Soft to palpation, not firm, nontender, no guarding and not rigid Auscultation: normal bowel sounds Neuro General: patient oriented x3 and moves all extremities Psych Speech and movement: Normal speech and movement present Coding Level of Care Code Est Pt Level 4 (01691) Diagnoses Slow transit constipation K59.01 Constipation type: slow transit constipation Time Spent (min) 20 Assessment & Plan Assessment & Plan (1) Constipation: Code(s): K59.00 - Constipation, unspecified Qualifiers: Constipation type: slow transit constipation Qualified Code(s): K59.01 - Slow transit constipation Plan: Managed by GI Continue on current regiment as prescribed.
== END 2024-08-28 16:05 | disposition home or self-care (01) ==
LOC: HO.HMCH 11:04
PROVIDERS: PCP Internal Medicine; Visit Provider Nurse Practitioner Family
DX: K59.01 Slow transit constipation (principal)

== ENCOUNTER → 2024-08-28 11:03 | Outpatient (BNVA) | payer OTHER, SELFPAY | PROVIDERS: PCP Internal Medicine; Visit Provider Nurse Practitioner Family | DX: K59.01 Slow transit constipation (principal) | CPT/HCPCS: 99212 ==

== ENCOUNTER 2024-09-22 13:09 | Emergency (ER) | payer OTHER, SELFPAY ==
--- NOTE | ~2024-09-22 | XR_ITS ---
EXAMINATION: XR LUMBOSACRAL SPINE CLINICAL INFORMATION: Lower back pain. COMPARISON: Most recent CT abdomen/pelvis dated 06/01/2024. TECHNIQUE: Three views of the lumbosacral spine. FINDINGS: The lumbar lordosis is maintained. No acute fracture or subluxation. No loss of vertebral body height. Multilevel loss of intervertebral disc height with degenerative endplate osteophytes, most prominent at L4-L5. Multilevel bilateral facet arthropathy. No concerning lytic or blastic osseous lesion. Suod-qj-ygtgrmra stool burden. XR/XR lumbar spine 2-3V IMPRESSION: Multilevel degenerative disc disease, most prominent at L4-L5. Multilevel bilateral facet arthropathy. Electronically signed by: Brock Gallegos MD 09/22/2024 04:03 PM [facility]
--- NOTE | ~2024-09-22 | CT_ITS ---
EXAMINATION: CT ABDOMEN AND PELVIS WITHOUT CONTRAST CLINICAL INFORMATION: Abdominal pain. COMPARISON: Multiple priors, most recent abdominal radiograph dated 07/26/2024, ultrasound dated 07/26/2024, and CT abdomen/pelvis dated 06/01/2024. TECHNIQUE: Multidetector volumetric imaging was performed from the superior aspect of the liver through the pubic symphysis. Sagittal and coronal reformatted images were obtained on the technologist's workstation. This CT examination was performed using dose optimization techniques as appropriate, variously including the following: *Automated exposure control *Adjustment of mA and/or kV according to patient size (this includes techniques or standardized protocols for targeted exams where dose is matched to indication/reason for exam; i.e. extremities or head) *Use of iterative reconstruction technique DLP: 986 mGy-cm. FINDINGS: LUNG BASES: The visualized lung bases are unremarkable. LIVER, GALLBLADDER, AND BILIARY TREE: The liver is normal in size, shape, and attenuation. No focal hepatic lesion or biliary ductal dilatation is present. The gallbladder is unremarkable with no evidence of radiopaque gallstones, gallbladder wall thickening, or obvious pericholecystic inflammatory changes. PANCREAS: Slightly atrophic. No associated inflammatory change. SPLEEN: Unremarkable. ADRENAL GLANDS: Unremarkable. KIDNEYS AND URETERS: The kidneys are normal in size, shape, and attenuation. No hydronephrosis, hydroureter, or calculi seen. No perinephric stranding. BLADDER: Unremarkable. GASTROINTESTINAL TRACT: No small or large bowel obstruction. Qmlb-hf-xmjgwvik stool burden. No bowel wall thickening or inflammatory change. Unremarkable appendix. PERITONEAL CAVITY: No intra-abdominal free air or free fluid. No intra-abdominal mass or organized fluid collection/abscess formation. ABDOMINAL WALL: No significant hernia is appreciated. LYMPH NODES: No lymphadenopathy. VASCULAR: Unremarkable. PELVIC VISCERA: Status post hysterectomy. OSSEOUS STRUCTURES: Findings consistent with chronic avascular necrosis within the femoral heads, not significantly changed. No associated cortical collapse. No acute osseous abnormality. CT/CT abdomen pelvis wo IV con IMPRESSION: 1. Prqh-td-ajqzchms stool burden. No small or large bowel obstruction. No bowel wall thickening or inflammatory change. Unremarkable appendix. 2. No intra-abdominal mass, lymphadenopathy, or ascites. Fleischner guidelines were followed. Electronically signed by: Brock Gallegos MD 09/22/2024 04:03 PM [facility]
--- NOTE | ~2024-09-22 | XR_ITS ---
EXAMINATION: XR HIP, RIGHT CLINICAL INFORMATION: Right hip pain. COMPARISON: Most recent CT abdomen/pelvis dated 06/02/2024. TECHNIQUE: AP view of the pelvis as well as AP and frog-leg lateral views of the right hip. FINDINGS: Faint sclerosis redemonstrated within the femoral heads bilaterally, consistent with previously seen chronic avascular necrosis. No cortical collapse or evidence of acute osseous injury. No fracture or dislocation. Mild bilateral hip joint space narrowing with tiny marginal osteophytes. Phleboliths within the pelvis. XR/XR hip RT w PEL1V IMPRESSION: Chronic avascular necrosis within the right and left femoral head, unchanged. No cortical collapse or evidence of acute osseous injury. Electronically signed by: Brock Gallegos MD 09/22/2024 04:03 PM [facility]
[2024-09-22 13:15] VITALS: BP 120/76; PULSE 85; O2SAT 100
[2024-09-22 13:18] VITALS: BP 106/72; PULSE 81; RESP 16; TEMP 36.9; O2SAT 98; BMI 41.0
--- NOTE | 2024-09-22 14:18 | ED_ITS ---
HPI - General Adult General Chief complaint: Extremity Injury, Lower Stated complaint: pain radiating down leg Time Seen by Provider: 09/22/24 14:17 Source: patient and EMS Mode of arrival: EMS Limitations: no limitations History of Present Illness ED Provider: Aline Babcock HPI narrative: 64 yo female hx of morbid obesity, chronic constipation, GERD, hypothyroidism, fibromyalgia, osteoarthritis, hyperlipidemia, bipolar disorder presents w/ abd pain ( diffuse X 1 day) and lower back pain w/ radiation down b/l LE to her feet X4 days. Appears to be worsening. Reports her back pain flared up after using the bathroom. She got a sharp pain in her back that went to her legs. No changes in urinary habits, cp, sob, nausea, vomiting, fevers, chills, headache, vision changes. Related Data Home Medications ?Medication ?Instructions ?Recorded ?Confirmed oxygen-air delivery systems ##1 08/24/20 05/06/24 topiramate 100 mg tablet 100 mg PO BID 07/13/22 05/06/24 amitriptyline 100 mg tablet 100 mg PO BEDTIME 08/23/23 05/06/24 bupropion HCl 300 mg 24 hr tablet, 300 mg PO DAILY 08/23/23 05/06/24 extended release gabapentin 300 mg capsule 300 mg PO BID 12/20/23 05/06/24 acetaminophen 325 mg tablet 325 mg PO QID PRN Pain 01/27/24 05/06/24 benralizumab 30 mg/mL subcutaneous 30 mg subcut Q8W 01/27/24 05/06/24 syringe (Fasenra) clonazepam 1 mg tablet 1 mg PO DAILY Anxiety 01/27/24 05/06/24 docusate sodium 100 mg tablet 100 mg PO BID 01/27/24 05/06/24 lamotrigine 200 mg tablet 200 mg PO DAILY 01/27/24 05/06/24 pantoprazole 40 mg tablet,delayed 40 mg PO BID 01/27/24 05/06/24 release quetiapine 50 mg tablet 50 - 100 mg PO BEDTIME 01/27/24 05/06/24 rosuvastatin 10 mg tablet 10 mg PO DAILY 01/27/24 05/06/24 simethicone 125 mg tablet 125 mg PO QID PRN GAS 01/27/24 05/06/24 tramadol 50 mg tablet 50 mg PO Q6H PRN Pain 01/27/24 05/06/24 gabapentin 400 mg capsule 400 mg PO TID 03/26/24 05/06/24 zolpidem 10 mg tablet 10 mg PO BEDTIME PRN 03/26/24 05/06/24 esomeprazole magnesium 40 mg 40 mg PO DAILY 07/12/24 capsule,delayed release cefpodoxime 200 mg tablet 200 mg PO Q12H 08/28/24 Previous Rx's ?Medication ?Instructions ?Recorded shower seat #1 ea 11/23/20 miscellaneous medical supply #1 ea 12/22/20 electric wheelchair #1 ea 04/30/22 blood pressure kit-extra large #1 ea 08/29/22 wheeled table with drawers #1 ea 12/05/22 adult diapers pull-ups #240 ea 02/13/23 trazodone 100 mg tablet 100 mg PO BEDTIME PRN sleep 90 05/08/23 days #90 tabs nebulizers (AeroEclipse II #1 ea 05/15/23 Nebulizer) lubiprostone 24 mcg capsule 24 mcg PO BID #180 caps 07/04/23 carboxymethylcellulose sodium 0.5 1 drp ophthalmic (eye) BID PRN dry 10/05/23 % eye drops in a dropperette eye(s) 30 days #30 ea diphenhydramine HCl 25 mg capsule 25 mg PO BEDTIME PRN sleep #30 caps 10/05/23 (Banophen) cromolyn 4 % eye drops 1 drp ophthalmic (eye) 6XD 30 days 12/18/23 #10 mL albuterol sulfate 90 mcg/actuation 2 puff inhalation Q4H PRN Wheezing 12/20/23 aerosol inhaler #8.5 grams ertapenem 1 gram solution for 1 g IV DAILY #6 ea 01/30/24 injection lidocaine HCl 4 % topical ointment See Rx Instructions topical 01/31/24 (AsperFlex (lidocaine HCl)) .COMPLEX herpes zoster #100 grams albuterol sulfate 2.5 mg/3 mL 2.5 mg (3 mL) inhalation Q6H PRN 02/14/24 (0.083 %) solution for nebulization for wheezing #150 mL cetirizine 10 mg tablet 10 mg PO DAILY PRN allergy 03/09/24 symptoms 90 days #90 tabs fluticasone fur. 200 mcg-umeclid 1 inh inhalation DAILY 30 days #60 05/27/24 62.5 mcg-vilant 25 mcg ea inhalat.powder (Trelegy Ellipta) disposable gloves #200 ea 06/06/24 flushable wipes #240 ea 06/06/24 lidocaine 5 % topical patch 1 patch topical DAILY 30 days #30 07/12/24 (Lidoderm) ea underpads (Bed Underpads) #100 ea 07/24/24 cholecalciferol (vitamin D3) 25 25 mcg PO DAILY #30 caps 07/28/24 mcg (1,000 unit) capsule (Vitamin D3) recliner with power buttons #1 ea 07/31/24 levothyroxine 50 mcg tablet 50 mcg PO DAILY@0630 #90 tabs 08/26/24 POWER LIFT RECLINER #1 ea 09/10/24 docusate sodium 100 mg capsule 100 mg PO BID #20 caps 09/22/24 (Colace) ketorolac 10 mg tablet 10 mg PO TID PRN pain 5 days #15 09/22/24 tabs polyethylene glycol 3350 17 17 g PO BID PRN constipation #238 09/22/24 gram/dose oral powder (Miralax) grams sennosides 8.6 mg tablet (senna) 8.6 mg PO BEDTIME #14 tabs 09/22/24 Allergies Allergy/AdvReac Type Severity Reaction Status Date / Time No Known Allergies Allergy Verified 09/22/24 13:19 Review of Systems Review of Systems: Yes all other systems are reviewed and are negative PMFSH Past Medical History Attestation statement: The following information was validated with the patient. Source: old records reviewed and nursing notes reviewed Medical History Morbid obesity Avascular necrosis Physical exam Well woman exam Pre-op evaluation RSV (acute bronchiolitis due to respiratory syncytial virus) Chest pain Palpitations URI (upper respiratory infection) Snoring Encounter for screening for malignant neoplasm of colon Lumbar pain Urinary incontinence Low blood pressure Allergic reaction UTI (urinary tract infection) Palpitations Morbid obesity with BMI of 40.0-44.9, adult Epigastric abdominal pain Oxygen dependent Hypothyroidism Hypersomnia ILD (interstitial lung disease) ROB on CPAP History of ESBL E. coli infection Obstructive sleep apnea Moderate recurrent major depression Urinary retention Acute and chronic respiratory failure with hypoxia COVID-19 Lupus (systemic lupus erythematosus) Polyarthralgia Neck mass Eosinophilia Severe asthma Asthma-COPD overlap syndrome Trigger finger of right hand Recurrent UTI Tachycardia Obesity Lumbar degenerative disc disease GERD (gastroesophageal reflux disease) Hemangioma Hypovitaminosis D Bipolar 1 disorder Depression with anxiety Insomnia COPD (chronic obstructive pulmonary disease) Surgical History Hx of hand surgery Hx of cardiac catheterization History of esophagogastroduodenoscopy (EGD) History of cystocele History of colonoscopy History of shoulder surgery History of carpal tunnel release History of hysterectomy History of section History of tonsillectomy Family History Family History Father Prostate cancer Mother No problems noted. Sister Nasopharyngeal cancer Social History Social History Household Members: None Household Members Other:: 1 Housing: Apartment Do you presently have visiting nurse or other home services: Yes (Has [employer]) Alcohol intake: never Comment: sleeping Patient Tobacco Use Status: Former Tobacco user Years Smoked: 14 +/- e-Cigarette/Vaping Use: Never Used Second Hand Smoke Exposure: No Advance Directives: Yes Advance Directives on File: Yes Advance Directives Date on File: 01/08/21 service: No Current occupational status: disabled Current occupation: right and left handed--- HAS [employer] SERVICES Cognitive needs: Yes (walker ) Hearing needs: No Vision needs: Yes Physical Exam ED Vital Signs: Vital Signs - 24 hr 09/22/24 13:18 09/22/24 18:00 Temperature 98.4 F 98.2 F Pulse Rate 81 80 Respiratory Rate 16 16 Blood Pressure 106/72 113/61 Pulse Oximetry 98 99 Oxygen Delivery Method Room Air Room Air BMI result Body Mass Index 41.0 vss Appearance: Alert.? Oriented X3.? No acute distress.? Head: Normocephalic, atraumatic, no step-offs or deformities Eyes: Pupils equal, round and reactive to light.? CVS: Normal heart rate and rhythm.? Pulses normal.? Respiratory: No respiratory distress.? Breath sounds normal.? Abdomen: Soft and mild diffuse tenderness .? Skin: Skin warm and dry.? Normal skin color.? Normal skin turgor.? Extremities: No lower extremity edema.? No calf ttp. Global weakness. TTP to left paraspinous lumbar muscles b/l. No midline pain. No saddle anesthesias. Neuro: Oriented X 3.? No motor deficit.? No sensory deficit. CN 2-12 intact Course Reevaluation(s) Reevaluation #1: CT/CT abdomen pelvis wo IV con IMPRESSION: 1. Deip-ui-ximqfdja stool burden. No small or large bowel obstruction. No bowel wall thickening or inflammatory change. Unremarkable appendix. 2. No intra-abdominal mass, lymphadenopathy, or ascites. Fleischner guidelines were followed. XR/XR hip RT w PEL1V IMPRESSION: Chronic avascular necrosis within the right and left femoral head, unchanged. No cortical collapse or evidence of acute osseous injury. XR/XR lumbar spine 2-3V IMPRESSION: Multilevel degenerative disc disease, most prominent at L4-L5. Multilevel bilateral facet arthropathy. Patient still hasnt given us a urine will bladder scan and straight cath ifneeded for urine. Time: 18:40 Reevaluation #2: bladder scan > 600 will obtain UA by straight cath. Sign out to Devora. [employer] Time: 18:44 Reevaluation #3: Received sign out from 1914 from Abby GILL pending a UA to r/o infection. At 194 UA is negative for infection. Patient is ambulating around the room with a walker which is her baseline. She has voided. Will discharge home. Medications Administered Discontinued Medications Generic Name Dose Route Start Last Admin Trade Name Freq PRN Reason Stop Dose Admin Ketorolac Tromethamine 30 mg 09/22/24 17:28 09/22/24 17:37 Ketorolac Tromethamine 30 Mg/Ml Vial IM 09/22/24 17:29 30 mg ONCE ONE Administration Morphine Sulfate 15 mg 09/22/24 15:33 09/22/24 15:43 Morphine Sulfate Immed Release 15 Mg Tablet PO 09/22/24 15:34 15 mg ONCE ONE Administration Medical Decision Making Medical Decision Making [facility] Narrative: 1419 64 year old female presents w/ lower back pain w/ radiation to b/l LE also diffuse abd pain. PE Global weakness. TTP to left paraspinous lumbar muscles b/l. No midline pain. No saddle anesthesias. Diffuse abd discomfort normo active bowel sounds Hx and pe concerning for sciatica vs lumbar radiculopathy. No signs of cauda equina, cord compression, epidural abscess. Abd mcintosh likely constipation unlikely obstruction, acute abdomen, SBO,LBO, appendicitis, cholecysitis. Plan- Differential Diagnosis Differential Diagnoses: The differential diagnosis associated with the presentation includes (Hx and pe concerning for sciatica vs lumbar radiculop athy. No signs of cauda equina, cord compression, epidural abscess. Abd mcintosh likely constipation unlikely obstruction, acute abdomen, SBO,LBO, appendicitis, cholecysitis. ) Admission/Observation Consideration of admission/observation: Escalation of care including admission/observation considered Lab Data Labs: Lab Results 09/22/24 Range/Units 19:01 Urine Color Yellow Urine Appearance Clear Urine pH 8.0 (5.0-9.0) Ur Specific [place] <= 1.005 (1.005-1.025) Urine Protein Negative (Neg-Trace) mg/dL Urine Glucose (UA) Negative (Negative) mg/dL Urine Ketones Negative (Negative) mg/dL Urine Blood Negative (Negative) Urine Nitrite Negative (Negative) Ur Leukocyte Esterase Negative (Negative) Independent Interpretation I performed an independent interpretation of an: Plain X-Ray (R/XR hip RT w PEL1V IMPRESSION: Chronic avascular necrosis within the right and left femoral head, unchanged. No cortical collapse or evidence of acute osseous injury.) and CT Scan Radiology Impression Discussion of test interpretation with radiology: I have reviewed the radiologist's reading. Chronic Conditions Patient?s care impacted by: Other (morbid obesity, chronic constipation, GERD, hypothyroidism, fibromyalgia, osteoarthritis, hyperlipidemia, bipolar disorder) Critical Care Time Critical Care Time Critical Care Time: No Discharge Plan Discharge Clinical Impression: Lower back pain, Lumbar radiculopathy, Constipation, Abdominal pain Patient Disposition: Home, Self-Care Instructions: Constipation (ED), Acute Abdominal Pain (DC), Lower Back Exercises (ED) Additional Instructions: Take your medications as prescribed. If you were prescribed antibiotics today, it is important that you take your medication to their entirety, do not skip any doses, do not finish them early. Follow-up with your primary care provider this week. Return to the emergency department with new or worsening symptoms. In case of emergency call 911 Toradol has been sent to your pharmacy, you tolerated this well in the department. Please take this as prescribed do not take this with ibuprofen, or other NSAIDs, do not mix this with alcohol. Side effects of this medication including increased risk for bleeding and possible kidney injury. CT/CT abdomen pelvis wo IV con IMPRESSION: 1. Pbwz-vg-ysdjvhgg stool burden. No small or large bowel obstruction. No bowel wall thickening or inflammatory change. Unremarkable appendix. 2. No intra-abdominal mass, lymphadenopathy, or ascites. Fleischner guidelines were followed. XR/XR lumbar spine 2-3V IMPRESSION: Multilevel degenerative disc disease, most prominent at L4-L5. Multilevel bilateral facet arthropathy. XR/XR hip RT w PEL1V IMPRESSION: Chronic avascular necrosis within the right and left femoral head, unchanged. No cortical collapse or evidence of acute osseous injury. Prescriptions: New sennosides [senna] 8.6 mg tablet 8.6 mg PO BEDTIME Qty: 14 0RF docusate sodium [Colace] 100 mg capsule 100 mg PO BID Qty: 20 0RF polyethylene glycol 3350 [Miralax] 17 gram/dose powder 17 g PO BID PRN (Reason: constipation) Qty: 238 0RF ketorolac 10 mg tablet 10 mg PO TID PRN (Reason: pain) 5 Days Qty: 15 0RF Rx Instructions: Tolerated IM or IV in department No Action (DME) shower seat See Rx Instructions .Route .MEDSUPPLY Qty: 1 0RF Rx Instructions: As directed (DME) miscellaneous medical supply [facility] [place] See Rx Instructions .ROUTE .MEDSUPPLY Qty: 1 0RF Rx Instructions: OVERBED TABLE (DME) electric wheelchair See Rx Instructions .Route .MEDSUPPLY Qty: 1 0RF Rx Instructions: As directed (DME) wheeled table with drawers See Rx Instructions .Route .MEDSUPPLY Qty: 1 0RF Rx Instructions: As directed (DME) adult diapers pull-ups 2Xlarge See Rx Instructions .Route .MEDSUPPLY Qty: 240 6RF Rx Instructions: As directed trazodone 100 mg tablet 100 mg PO BEDTIME PRN (Reason: sleep) 90 Days Qty: 90 0RF (DME) nebulizers [AeroEclipse II Nebulizer] [facility] See Rx Instructions .Route Qty: 1 0RF Rx Instructions: As directed lubiprostone 24 mcg capsule 24 mcg PO BID Qty: 180 3RF cromolyn 4 % drops 1 drp ophthalmic (eye) 6XD 30 Days Qty: 10 1RF albuterol sulfate 2.5 mg /3 mL (0.083 %) solution for nebulization 2.5 mg inhalation Q6H PRN (Reason: for wheezing) Qty: 150 11RF cetirizine 10 mg tablet 10 mg PO DAILY PRN (Reason: allergy symptoms) 90 Days Qty: 90 1RF Trelegy Ellipta 200-62.5-25 mcg blister with device 1 inh inhalation DAILY 30 Days Qty: 60 12RF (DME) flushable wipes See Rx Instructions .Route .MEDSUPPLY Qty: 240 6RF Rx Instructions: As directed (DME) disposable gloves Misc See Rx Instructions .Route Qty: 200 6RF Rx Instructions: As directed (DME) underpads [Bed Underpads] Pad See Rx Instructions .Route Qty: 100 6RF Rx Instructions: As directed cholecalciferol (vitamin D3) [Vitamin D3] 25 mcg (1,000 unit) capsule 25 mcg PO DAILY Qty: 30 1RF (DME) recliner with power buttons See Rx Instructions .Route .MEDSUPPLY Qty: 1 0RF Rx Instructions: As directed levothyroxine 50 mcg tablet 50 mcg PO DAILY@0630 Qty: 90 0RF (DME) POWER LIFT RECLINER See Rx Instructions .Route .MEDSUPPLY Qty: 1 0RF Rx Instructions: As directed acetaminophen 325 mg tablet 325 mg PO QID PRN (Reason: Pain) lamotrigine 200 mg tablet 200 mg PO DAILY tramadol 50 mg tablet 50 mg PO Q6H PRN (Reason: Pain) pantoprazole 40 mg Tablet,Delayed Release (Dr/Ec) 40 mg PO BID simethicone 125 mg Tablet 125 mg PO QID PRN (Reason: GAS) docusate sodium 100 mg Tablet 100 mg PO BID quetiapine 50 mg Tablet 50 - 100 mg PO BEDTIME Fasenra 30 mg/mL syringe 30 mg subcut Q8W clonazepam 1 mg tablet 1 mg PO DAILY rosuvastatin 10 mg tablet 10 mg PO DAILY ertapenem 1 gram recon soln 1 g IV DAILY Qty: 6 0RF (DME) oxygen-air delivery systems Device See Rx Instructions .ROUTE .MEDSUPPLY Qty: 1 Rx Instructions: As directed albuterol sulfate 90 mcg/actuation HFA aerosol inhaler 2 puff inhalation Q4H PRN (Reason: Wheezing) Qty: 8.5 11RF gabapentin 300 mg capsule 300 mg PO BID carboxymethylcellulose sodium 0.5 % dropperette 1 drp ophthalmic (eye) BID PRN (Reason: dry eye(s)) 30 Days Qty: 30 2RF diphenhydramine HCl [Banophen] 25 mg capsule 25 mg PO BEDTIME PRN (Reason: sleep) Qty: 30 0RF AsperFlex (lidocaine HCl) 4 % ointment See Rx Instructions topical .COMPLEX Qty: 100 0RF Rx Instructions: use 1-2 inch ointment and apply up to 3 times daily on L shoulder topically; topiramate 100 mg tablet 100 mg PO BID (DME) blood pressure kit-extra large Kit See Rx Instructions .Route Qty: 1 0RF Rx Instructions: As directed amitriptyline 100 mg tablet 100 mg PO BEDTIME bupropion HCl 300 mg tablet extended release 24 hr 300 mg PO DAILY zolpidem 10 mg tablet 10 mg PO BEDTIME PRN gabapentin 400 mg capsule 400 mg PO TID esomeprazole magnesium 40 mg capsule,delayed release(DR/EC) 40 mg PO DAILY lidocaine [Lidoderm] 5 % adhesive patch,medicated 1 patch topical DAILY 30 Days Qty: 30 4RF Rx Instructions: leave on most painful area for up to 12 hrs cefpodoxime 200 mg tablet 200 mg PO Q12H Rx Instructions: must administer with a meal/food Referrals: Farideh Starr MD [Primary Care Provider] - 2 days Print Language: Kyrgyz
[2024-09-22] MEDS: Morphine Sulfate Immed Release 15 MG TABLET PO (15:43)
[2024-09-22] MEDS: Ketorolac Tromethamine 30 MG/ML VIAL IM (17:37)
[2024-09-22 18:00] VITALS: BP 113/61; PULSE 80; RESP 16; TEMP 36.8; O2SAT 99
[2024-09-22 19:09] LABS: Appearance Urine Clear; Color Urine Yellow; Glucose Urine UA Negative (Negative); Leukocyte Esterase Urine Negative (Negative); Nitrite Urine Negative (Negative); Specific Gravity - Urine <= 1.005 (1.005-1.025); Urine Blood Negative (Negative); Urine Ketones Negative (Negative); Urine Protein Negative (Neg-Trace)
[2024-09-22 21:27] VITALS: BP 130/68; PULSE 100; RESP 16; TEMP 36.6; O2SAT 99
== END 2024-09-22 21:10 | disposition home or self-care (01) ==
PROVIDERS: Physician Assistant; Emergency Provider Emergency Medicine; PCP Internal Medicine
DX: M54.50 Low back pain, unspecified (principal); M54.16 Radiculopathy, lumbar region; K59.00 Constipation, unspecified; R10.2 Pelvic and perineal pain; M25.551 Pain in right hip
CPT/HCPCS: 72100; 73502; 74176; 81003; 96372; 99283; 99284; J1885

== ENCOUNTER 2024-10-03 09:42 | Outpatient (AMB) | payer OTHER, SELFPAY ==
--- NOTE | 2024-10-03 09:46 | A.OFFPC_ITS ---
Vital Signs 10/03/24 09:47 Height 5 ft 1 in Weight 222 lb 8 oz BMI 42.0 BP 110/68 Blood Pressure Location Lt brachial Position Sitting Pulse 84 Pulse Source Pulse Oximeter Pulse Oximetry (%) 94 Oxygen Delivery Method Room Air Intake [place] [facility] [place] pain radiating down leg Intake Note: Patient is here to follow-up after a visit the emergency department at [facility] [place] . Pt is requesting referral to Pain Management for chronic pain. Pt requesting for wheelchair due to difficulty walking. Thermal Intelligence Analyst Required: Yes Thermal Intelligence Analyst Language: Government Employee Name: Luann Schneider ([id number]) Information Interpreted: non-clinical & clinical Crab Fisher: Present Accompanied by: Sister Allergies senna Adverse Reaction (Intermediate, Verified 10/03/24 11:46) Dizziness Medication List - Last Reconciled 10/03/24 by Elizabeth Matt PA-C acetaminophen 325 mg PO QID PRN [adult diapers pull-ups As directed] albuterol sulfate 90 mcg/actuation 2 puffs inhalation Q4H PRN albuterol sulfate 2.5 mg (3 mL) inhalation Q6H PRN amitriptyline 100 mg PO BEDTIME benralizumab (Fasenra) 30 mg subcut Q8W blood pressure kit-extra large As directed bupropion HCl XL 300 mg PO DAILY carboxymethylcellulose sodium 0.5% 1 drp ophthalmic (eye) BID PRN 30 days cefpodoxime 200 mg PO Q12H cetirizine 10 mg PO DAILY PRN 90 days cholecalciferol (vitamin D3) (Vitamin D3) 25 mcg PO DAILY clonazepam 1 mg PO DAILY cromolyn 4% 1 drp ophthalmic (eye) 6XD 30 days diphenhydramine HCl (Banophen) 25 mg PO BEDTIME PRN disposable gloves As directed docusate sodium 100 mg PO BID docusate sodium (Colace) 100 mg PO BID [electric wheelchair As directed] ertapenem 1 g IV DAILY esomeprazole magnesium 40 mg PO DAILY [flushable wipes As directed] fgzqulmwnqh-yvueekwfy-lzaautqj 200-62.5-25 mcg (Trelegy Ellipta) 1 inh inhalation DAILY 30 days gabapentin 300 mg PO BID gabapentin 400 mg PO TID ketorolac 10 mg PO TID PRN 5 days lamotrigine 200 mg PO DAILY levothyroxine 50 mcg PO DAILY@0630 lidocaine 5% (Lidoderm) 1 patch topical DAILY 30 days lidocaine 5% (Lidoderm) 1 patch topical DAILY lidocaine HCl 4% (AsperFlex (lidocaine HCl)) use 1-2 inch ointment and apply up to 3 times daily on L shoulder topically; lubiprostone 24 mcg PO BID meloxicam 15 mg PO DAILY miscellaneous medical supply OVERBED TABLE nebulizers (AeroEBluwane II Nebulizer) As directed oxygen-air delivery systems As directed pantoprazole 40 mg PO BID polyethylene glycol 3350 (Miralax) 17 grams PO BID PRN [POWER LIFT RECLINER As directed] quetiapine 50 - 100 mg PO BEDTIME [recliner with power buttons As directed] rosuvastatin 10 mg PO DAILY [shower seat As directed] simethicone 125 mg PO QID PRN topiramate 100 mg PO BID tramadol 50 mg PO Q6H PRN trazodone 100 mg PO BEDTIME PRN 90 days underpads (Bed Underpads) As directed [wheeled table with drawers As directed] zolpidem 10 mg PO BEDTIME PRN Tobacco use date assessed: 10/03/24 Fall risk assessment: No Falls in past year Last assessed Fall Risk: 10/03/24 Dental Screening Dental Screen Date: 12/20/23 [facility] Medical History Morbid obesity Avascular necrosis Physical exam Well woman exam Pre-op evaluation RSV (acute bronchiolitis due to respiratory syncytial virus) Chest pain Palpitations URI (upper respiratory infection) Snoring Encounter for screening for malignant neoplasm of colon Lumbar pain Urinary incontinence Low blood pressure Allergic reaction UTI (urinary tract infection) Palpitations Morbid obesity with BMI of 40.0-44.9, adult Epigastric abdominal pain Oxygen dependent Hypothyroidism Hypersomnia ILD (interstitial lung disease) ROB on CPAP History of ESBL E. coli infection Obstructive sleep apnea Moderate recurrent major depression Urinary retention Acute and chronic respiratory failure with hypoxia COVID-19 Lupus (systemic lupus erythematosus) Polyarthralgia Neck mass Eosinophilia Severe asthma Asthma-COPD overlap syndrome Trigger finger of right hand Recurrent UTI Tachycardia Obesity Lumbar degenerative disc disease GERD (gastroesophageal reflux disease) Hemangioma Hypovitaminosis D Bipolar 1 disorder Depression with anxiety Insomnia COPD (chronic obstructive pulmonary disease) Surgical History Hx of hand surgery Hx of cardiac catheterization History of esophagogastroduodenoscopy (EGD) History of cystocele History of colonoscopy History of shoulder surgery History of carpal tunnel release History of hysterectomy History of section History of tonsillectomy Family History Father Prostate cancer Mother No problems noted. Sister Nasopharyngeal cancer Social History Household Members: None Household Members Other:: 1 Housing: Apartment Do you presently have visiting nurse or other home services: Yes (Has [employer]) Alcohol intake: never Comment: sleeping Patient Tobacco Use Status: Former Tobacco user Years Smoked: 14 +/- e-Cigarette/Vaping Use: Never Used Second Hand Smoke Exposure: No Advance Directives Date on File: 01/08/21 service: No Current occupational status: disabled Current occupation: right and left handed--- HAS [employer] Cognitive needs: Yes (walker ) Hearing needs: No Vision needs: Yes Female Reproductive History Menstrual Age of Menarche: 12 Questionnaire Thrive Questionnaire Date Thrive assessed: 01/28/24 DAO-7 AMB Questionnaire DAO-7 Date DAO - 7 assessed: 12/20/23 Source: Developed by Drs. Power Thornton, Melisas Peñaloza, Master Grijalva and colleagues, with an educational sudhir from [employer]. Physical exam (Primary Care) Vital Signs: Last Vital Signs Pulse 84 10/03/24 09:47 BP 110/68 10/03/24 09:47 Pulse Ox 94 10/03/24 09:47 Oxygen Delivery Method Room Air 10/03/24 09:47 BMI result Body Mass Index 42.0 Tobacco/Smoking Status: Tobacco use Status Tobacco use date assessed 10/03/24 10/03/24 10:09 Patient Tobacco Use Status Former Tobacco user 10/03/24 10:09 Tobacco use type 06/13/24 13:49 e-Cigarette/Vaping Use Never Used 10/03/24 10:09 Thrive Assessment: Date of Thrive Assessment Date Thrive assessed 01/28/24 10/03/24 10:09 Coding Level of Care Code Est Pt Level 4 (82720) Complex EM visit Add On G2211 Diagnoses Lumbar degenerative disc disease M51.36 Morbid obesity E66.01 Dysuria R30.0 Assessment & Plan Assessment & Plan (1) Lumbar degenerative disc disease: Code(s): M51.36 - Other intervertebral disc degeneration, lumbar region Category: Medical Plan: Patient had recent CT scan of lumbar spine. Currently taking Toradol and Flexeril without any relief. Patient will be prescribed meloxicam Lidoderm patches and Flexeril. Patient will be referred to pain management, physical therapy and orthopedic surgeon. (2) Morbid obesity: Code(s): E66.01 - Morbid (severe) obesity due to excess calories Category: Medical Plan: Patient instructed to continue watching her diet along with trying to perform as much exercise as she is able to. Will continue to monitor (3) Dysuria: Code(s): R30.0 - Dysuria Category: Medical Plan: Patient reports urinary frequency, urgency and dysuria. History of recurrent UTIs. Unable to give urine sample at this time. Lab order for UA placed. Patient understands she can go to outpatient lab to give a urine. Orders: Orders UA CC w/rflx Micro + Cult Today R30.0 - Dysuria Medications: New meloxicam 15 mg PO DAILY 30 tabs 1RF pain lidocaine 5% (Lidoderm) leave on most painful area for up to 12 hrs 1 patch topical DAILY 30 ea 0RF hip pain Scribe Plan - Not visible on output: History of Present Illness The patient is a 64-year-old female presenting with complaints of back pain and right hip pain. She also complaints of urinary symptoms. severe back pain and urinary symptoms. The right hip/back pain has been particularly acute, rated as 10 out of 10. The patient reports that these symptoms primarily exacerbated duri ng an episode while bathing, although there was no fall. She has experienced similar back/right hip pain previously but not to this intensity. She was seen in the emergency department on 09/22/2024 due to this pain to her right hip and back. She has CT scan of her abdomen and pelvis, lumbar spine and x-rays of her bilateral hips. CT scan of her abdomen and pelvis revealed constipation which they has prescribed her senna, MiraLax and Colace. She reports she is taking the MiraLax and Colace and has had bowel movements since then. She does not like the way the senna makes her feel therefore she is not taking this medication. Her lumbar spine x-ray revealed degenerative disc disease. Her bilateral hip x-rays revealed chronic avascular necrosis to bilateral hips no other acute processes were noted. She was discharged prescribed Toradol. The patient has tried Toradol and Flexeril for pain relief, but neither medication has proven effective. The patient also has significant urinary symptoms, including suspected urinary tract infection (UTI), characterized by a persistent unpleasant odor, frequent urination and increasing urination. She denies hematuria. She has a history of recurrent UTIs, though she is not currently on antibiotics. The patient indicates a pattern of frequent urinary infections, suggesting chronicity. In terms of her surgical history, she recently underwent shoulder surgery and has lingering postoperative issues. There are plans for further surgery for her knee's, but the patient has opted to postpone it to next year. The patient routinely uses mobility aids, such as a cane, and a wheeled walker with a seat on it, due to her reduced ability to perform daily activities comfortably without assistance. Patient is requesting a chair for her toilet. She is also requesting a wheelchair. She reports she has a [employer] that helps her with her bathing, cleaning and shopping. She has tried physical therapy in the past for her knees after a fall 6 years ago which provided no symptomatic relief. She is hesitant about trying physical therapy at this time although will try it to see if it helps. She is hesitant for any surgeries this year due to her lingering pain to her shoulder surgery. She is agreeable to seeing the orthopedic surgeon. She is requesting to be seen by pain management. She denies any other complaints or concerns at this time and was unable to give a urine today. Patient reported she had a mammogram this year. She also reports she has a colonoscopy scheduled this month. She recently received the flu vaccine. Social History - Resides in a single-level dwelling. - Receives help from a [employer] for bathing, cleaning, shopping. - History of knee surgery impacting daily function. - Limited mobility requiring the use of a cane. - Receives family support primarily from her sister. Review of Systems - General: Reports cold and hot sensations intermittently. - Musculoskeletal: Reports chronic pain status post knee surgery, chronic back pain. - Genitourinary: Reports persistent malodorous urine and hematuria. Physical Exam Appearance: Alert. Oriented X3. No acute distress. ? Head: Normal external exam. Normocephalic. Atraumatic.? Eyes: PERRLA. EOMI. Conjunctiva and sclera normal. Eyelids normal. ? ENT: Pharynx normal. Uvula midline. Moist mucous membranes. ? Neck: Normal inspection. Neck supple. FROM. No adenopathy. Thyroid Normal. No meningeal signs. No neck mass noted. CVS: Normal heart rate and rhythm. Heart sound normal. No murmurs noted. Pulses normal throughout. Respiratory: No respiratory distress. Painless inspiration. Breath sounds normal. No wheezes/rales/rhonchi noted. Chest nontender. ? No accessory muscle usage noted or decreased air movement noted. Abdomen: Soft and nontender. Bowel sounds normal in all 4 quadrants. No distention noted.? No organomegaly noted.? No visible injury noted. Back: ?No CVA tenderness.? Full range of motion noted. Skin: Skin warm and dry.? Normal skin color.? Normal skin turgor. No rashes/lesions/lacerations noted. Extremities: No lower extremity edema. ? Extremities exhibit normal range of motion.? Extremities nontender. Neuro: Oriented X 3.? No motor deficit.? No sensory deficit.? Reflexes normal. Normal steady gait with slight limp to right leg using walker. No focal deficits are noted. Results - Imaging: Recent CT scan performed; results unspecified in the conversation. Plan - Back Pain/Right Hip Pain: Patient will be prescribed meloxicam, Lidoderm patches and instructed to continue Flexeril as needed. Will also place a referral for physical therapy, pain management and orthopedic surgery. - Urinary Tract Infection: Obtain urinalysis to confirm infection, and commence appropriate antibiotic therapy once culture results are available. - Postoperative Pain: Advise physical therapy to aid recovery; consider modifying analgesics in consultation with the surgical team. - Intermittent Acute Knee Pain: Suggest orthopedic consultation for further evaluation given planned future surgeries. Patient was informed and verbally consented to the use of an ambient scribe for clinic note documentation during this visit. Discussion Notes I discussed with the patient the need for a comprehensive approach to managing her back pain, including a referral to a pain management clinic if the current regimen is ineffectual. We also reviewed the importance of conducting a urinalysis to examine the extent of the suspected urinary tract infection and plan for possible antibiotic therapy based on culture confirmation and sen sitivity. The need to manage postoperative and knee pain via physical therapy and possible pharmacological adjustments was emphasized. The patient seemed engaged in the management decisions and confirmed her understanding and agreement with the proposed plan. Patient Instructions - Continue prescribed medications and alert if symptoms worsen. - Use mobility aids to prevent falls and ensure safety at home. - Proceed with urinalysis as discussed and adhere to any new prescriptions for antibiotics. - Attend follow-up visits to monitor progress and adjust treatment plans as necessary. - Engage in recommend physical therapy sessions to improve postoperative recovery.
[2024-10-03 09:47] VITALS: BP 110/68; PULSE 84; O2SAT 94; BMI 42.0
== END 2024-10-03 11:30 | disposition home or self-care (01) ==
PROVIDERS: PCP Internal Medicine; Visit Provider Internal Medicine
DX: M51.369 Other intervertebral disc degeneration, lumbar region without mention of lumbar back pain or lower extremity pain (principal); E66.01 Morbid (severe) obesity due to excess calories; R30.0 Dysuria; Z68.41 Body mass index [BMI] 40.0-44.9, adult

== ENCOUNTER → 2024-10-03 09:42 | Outpatient (BNVA) | payer OTHER, SELFPAY | PROVIDERS: PCP Internal Medicine; Visit Provider Internal Medicine | DX: R30.0 Dysuria (principal); E66.01 Morbid (severe) obesity due to excess calories; M51.369 Other intervertebral disc degeneration, lumbar region without mention of lumbar back pain or lower extremity pain | CPT/HCPCS: 99212 ==

== ENCOUNTER 2024-10-09 10:44 | Outpatient (AMB) | payer OTHER, SELFPAY ==
--- NOTE | 2024-10-09 10:49 | A.OFFVIS_ITS ---
Vital Signs 10/09/24 11:02 Height 5 ft 1 in Weight 222 lb 10.67 oz BMI 42.1 BP 108/78 Blood Pressure Location Rt brachial Position Sitting Pulse 70 Pulse Source Pulse Oximeter Pulse Oximetry (%) 98 Oxygen Delivery Method Room Air Intake Visit Reasons: Pain in unspecified joint Intake Note: Patient presents for pain in unspecified joint. I feel pain all over my joints in my body. I been having pain for 10 years now. Tyleno only helps short term. Tramadol helps a little for the pain. Terminal Press Operator Required: Yes Terminal Press Operator Language: Sales Associate Services: Terminal Press Operator Present Terminal Press Operator Name: Griselda [id number] Information Interpreted: non-clinical & clinical Accompanied by: APPRENTICESHIP TRAINING REPRESENTATIVE Allergies senna Adverse Reaction (Intermediate, Verified 10/09/24 11:00) Dizziness Medication List - Last Reconciled 10/09/24 by Anh Barbour MD acetaminophen 325 mg PO QID PRN [adult diapers pull-ups As directed] albuterol sulfate 90 mcg/actuation 2 puffs inhalation Q4H PRN albuterol sulfate 2.5 mg (3 mL) inhalation Q6H PRN amitriptyline 100 mg PO BEDTIME benralizumab (Fasenra) 30 mg subcut Q8W blood pressure kit-extra large As directed bupropion HCl XL 300 mg PO DAILY carboxymethylcellulose sodium 0.5% 1 drp ophthalmic (eye) BID PRN 30 days cefpodoxime 200 mg PO Q12H cetirizine 10 mg PO DAILY PRN 90 days chair, wheel (Wheel chair) As directed cholecalciferol (vitamin D3) (Vitamin D3) 25 mcg PO DAILY clonazepam 1 mg PO DAILY commode (bedside commode) As directed cromolyn 4% 1 drp ophthalmic (eye) 6XD 30 days diphenhydramine HCl (Banophen) 25 mg PO BEDTIME PRN disposable gloves As directed docusate sodium 100 mg PO BID docusate sodium (Colace) 100 mg PO BID [electric wheelchair As directed] ertapenem 1 g IV DAILY esomeprazole magnesium 40 mg PO DAILY [flushable wipes As directed] [id number]-eqngahhzr-nlyvjdqj 200-62.5-25 mcg (Trelegy Ellipta) 1 inh inhalation DAILY 30 days gabapentin 300 mg PO BID gabapentin 400 mg PO TID ketorolac 10 mg PO TID PRN 5 days lamotrigine 200 mg PO DAILY levothyroxine 50 mcg PO DAILY@0630 lidocaine 5% (Lidoderm) 1 patch topical DAILY lidocaine HCl 4% (AsperFlex (lidocaine HCl)) use 1-2 inch ointment and apply up to 3 times daily on L shoulder topically; lubiprostone 24 mcg PO BID meloxicam 15 mg PO DAILY miscellaneous medical supply OVERBED TABLE nebulizers (AeroEclipse II Nebulizer) As directed oxygen-air delivery systems As directed pantoprazole 40 mg PO BID polyethylene glycol 3350 (Miralax) 17 grams PO BID PRN [POWER LIFT RECLINER As directed] quetiapine 50 - 100 mg PO BEDTIME [recliner with power buttons As directed] rosuvastatin 10 mg PO DAILY [shower seat As directed] simethicone 125 mg PO QID PRN topiramate 100 mg PO BID tramadol 50 mg PO Q6H PRN trazodone 100 mg PO BEDTIME PRN 90 days underpads (Bed Underpads) As directed [wheeled table with drawers As directed] zolpidem 10 mg PO BEDTIME PRN HPI Comments Details: Patient is a 64-year-old female with morbid obesity, GERD, hypothyroidism, severe persistent asthma, ROB on CPAP, ILD, polyarticular osteoarthritis and fibromyalgia here today for follow up Interval History: Last seen 05/09/[address] Hollingsworth. At that time she complained of whole body pain that was attributed to fibromyalgia and OA Today complains of whole body pain When pressed, the joints most affecting her are - knees uses a walker wakes up in the AM with pain Pain continues throughout the day and worse at night has known bilateral knee OA Previously saw ortho and was receiving durolane (last received 08/2022) but patient states that this wasn't helpful Was going to have knee replacement but the procedure was delayed due to shingles, which patient still has post herpetic neuralgia - shoulders has a hx of surgery to the left shoulder - hips right >left impedes walking known chronic AVN She also complains of new spots occuring on her hands that itch and she showed me a picture of her face with erythema when she wakes up. Happens almost every day. Last for 1-2 hours then resolves. Has concurrent hot flashes during that time. [facility] Medical History (Updated 10/09/24 @ 11:49 by Anh Barbour MD) Polyarticular osteoarthritis Avascular necrosis of bones of both hips Dysuria Morbid obesity Avascular necrosis Physical exam Well woman exam Pre-op evaluation RSV (acute bronchiolitis due to respiratory syncytial virus) Chest pain Palpitations URI (upper respiratory infection) Snoring Encounter for screening for malignant neoplasm of colon Lumbar pain Urinary incontinence Low blood pressure Allergic reaction UTI (urinary tract infection) Palpitations Morbid obesity with BMI of 40.0-44.9, adult Epigastric abdominal pain Oxygen dependent Hypothyroidism Hypersomnia ILD (interstitial lung disease) ROB on CPAP History of ESBL E. coli infection Obstructive sleep apnea Moderate recurrent major depression Urinary retention Acute and chronic respiratory failure with hypoxia COVID-19 Lupus (systemic lupus erythematosus) Polyarthralgia Neck mass Eosinophilia Severe asthma Asthma-COPD overlap syndrome Trigger finger of right hand Recurrent UTI Tachycardia Obesity Lumbar degenerative disc disease GERD (gastroesophageal reflux disease) Hemangioma Hypovitaminosis D Bipolar 1 disorder Depression with anxiety Insomnia COPD (chronic obstructive pulmonary disease) Surgical History Hx of hand surgery Hx of cardiac catheterization History of esophagogastroduodenoscopy (EGD) History of cystocele History of colonoscopy History of shoulder surgery History of carpal tunnel release History of hysterectomy History of section History of tonsillectomy Family History Father Prostate cancer Mother No problems noted. Sister Nasopharyngeal cancer Social History Household Members: None Household Members Other:: 1 Housing: Apartment Do you presently have visiting nurse or other home services: Yes (Has APPRENTICESHIP TRAINING REPRESENTATIVE) Alcohol intake: never Comment: sleeping Patient Tobacco Use Status: Former Tobacco user Years Smoked: 14 +/- e-Cigarette/Vaping Use: Never Used Second Hand Smoke Exposure: No Advance Directives Date on File: 01/08/21 service: No Current occupational status: disabled Current occupation: right and left handed--- HAS APPRENTICESHIP TRAINING REPRESENTATIVE SERVICES Cognitive needs: Yes (walker ) Hearing needs: No Vision needs: Yes Female Reproductive History Menstrual Age of Menarche: 12 Review of Systems Const Details: Review of Systems Constitutional: Denies fever, chills, weight loss ENT: Denies vision changes, eye pain or eye redness, dental caries, dry mouth GI: Denies nausea, vomiting, diarrhea, abdominal pain, change in BM Pulm: Denies SOB, BARRY, hemoptysis, wheezing Cards: Denies chest pain, palpitations Skin: Denies Raynaud's, rash, nail changes, photosensitivity, DRYING TUNNEL OPERATOR: Denies headaches, weakness, paresthesias, recurrent falls MSK: as per HPI All other systems reviewed and are unremarkable except noted above Physical Exam Vital Signs: BMI result Body Mass Index 42.1 Physical Examination CONSTITUITIONAL Patient alert and cooperative. Well appearing and in no apparent painful distress HEENT Conjunctiva and sclera clear. ?Pupils equal round and reactive to light. ?No lymphadenopathy. ? CHEST/RESPIRATORY SYSTEM Normal respiratory effort and able to speak in complete sentences. ?Clear to auscultation bilaterally. ?No crackles, rales, rhonchi, wheezes heard. CARDIAC SYSTEM Regular rate and rhythm. ?S1 and S2 heard no murmurs. ?Radial pulses intact bilaterally MSK Hands: ?Good plant operator helper strength bilaterally. Herbedens nodes Right 2nd DIP with ulnar deviation, left 2nd DIP. ?No synovitis noted to the MCPs, PIPs or DIPs. ?No tenderness to palpation of these joints. Positive CMC grind test bilaterally Wrists: ?Full range of motion at the wrists without pain. ?No tenderness to palpation or synovitis noted to the wrists. Elbows: Full range of motion without pain. No tenderness, weakness, swelling, increased warmth or erythema. Shoulders: Decreased active and passive ROM to bilateral shoulders. Passive better than active. Positive Hartman test bilaterally Hips: Right hip with decreased ROM 2/2 to pain. Left hip with decreased ROM but better than right. Hip bursa: Bilateral tenderness to palpation Knees: ?Full range of motion. ?No tenderness, swelling, increased warmth or erythema.?Crepitus noted bilaterally Tender points:? Tenderness to palpation of the neck, trapezius, anterior chest, elbows, lateral hips, buttocks & lateral knees. SKIN Skin intact without rashes. Results Reviewed Results Reviewed: Laboratory Tests 08/15/19 12/27/19 04/29/20 15:32 11:53 12:26 WBC RBC Hgb Hct Plt Count Sodium Potassium Chloride Carbon Dioxide BUN Creatinine Total Bilirubin AST ALT Alkaline Phosphatase 25-OH Vitamin D Total Rheumatoid Factor < 15.0 Cycl Citrul Peptide IgG <16 DICKSON Screen Negative Negative 05/31/24 07/26/24 08/09/24 22:43 19:38 10:28 WBC 6.9 6.2 6.2 RBC 4.10 L 4.15 L 4.44 Hgb 11.6 L 12.2 12.7 Hct 36.9 L 38.0 40.6 Plt Count 275 284 349 Sodium 144 140 144 Potassium 4.1 4.1 4.4 Chloride 110 H 108 113 H Carbon Dioxide 27 25 26 BUN 12 12 18 H Creatinine 0.89 0.87 0.90 Total Bilirubin 0.2 0.3 0.3 AST 16 17 17 ALT 12 14 12 Alkaline Phosphatase 94 95 94 25-OH Vitamin D Total 38.6 Rheumatoid Factor Cycl Citrul Peptide IgG DICKSON Screen XR Right Hip 09/22/24 FINDINGS: Faint sclerosis redemonstrated within the femoral heads bilaterally, consistent with previously seen chronic avascular necrosis. No cortical collapse or evidence of acute osseous injury. No fracture or dislocation. Mild bilateral hip joint space narrowing with tiny marginal osteophytes. Phleboliths within the pelvis. XR Lower Back 09/22/24 FINDINGS: The lumbar lordosis is maintained. No acute fracture or subluxation. No loss of vertebral body height. Multilevel loss of intervertebral disc height with degenerative endplate osteophytes, most prominent at L4-L5. Multilevel bilateral facet arthropathy. No concerning lytic or blastic osseous lesion. Kvxv-ir-czyckgfh stool burden. XR Right Knee FINDINGS: No significant joint effusion. Bones are normal anatomic alignment with no acute fracture or dislocation. Tricompartmental degenerative changes are again noted more so in the medial compartment where there is more significant joint space loss and osteophyte formation. DEXA 05/01/24 FINDINGS: LEFT FEMUR, NECK: BMD 0.814 g/cm2, Z-score -0.8, T-score -1.6, osteopenia. LEFT FEMUR, TOTAL: BMD 0.877 g/cm2, Z-score -0.5, T-score -1.0, normal. AP SPINE L1-L4 (excluding L2 and L3): The data of L1-L4 has been changed to exclude the L2 and L3 vertebral bodies, because degenerative sclerosis at these levels may cause overestimation of lumbar spine density. BMD 1.262 g/cm2, Z-score 1.4, T-score 0.8, normal. FRAX: Major osteoporotic fracture (clinical spine, forearm, hip or shoulder) 4.8%. Hip fracture 0.5%. Assessment & Plan Assessment & Plan (1) Fibromyalgia: Code(s): M79.7 - Fibromyalgia Category: Medical Plan: #Fibromyalgia Patient with fibromyalgia on gabapentin, tramadol, meloxicam and lidocaine patches Discussed the diagnosis with patient and APPRENTICESHIP TRAINING REPRESENTATIVE that it is an incurable disease involving central sensitization She is already on serveral medications and would not like to add to her polypharmacy I encouraged stretching and light exercise Needs to follow up with ortho for her hip and knees (2) Avascular necrosis of bones of both hips: Code(s): M87.051 - Idiopathic aseptic necrosis of right femur; M87.052 - Idiopathic aseptic necrosis of left femur Category: Medical Plan: Refer to ortho (3) Polyarticular osteoarthritis: Code(s): M15.9 - Polyosteoarthritis, unspecified Category: Medical Plan: #Polyarticular OA Topical diclofenac for bilateral hands and knees ORtho follow up for eval for knee replacement Plan I spent 45 minutes reviewing the record and labs, seeing the patient, discussing the treatment plan, answering questions and documenting in the medical record Orders: Referrals Orthopedics Referral M17.0 - Bilateral primary osteoarthritis of knee, M87.051 - Idiopathic aseptic necrosis of right femur, M87.052 - Idiopathic aseptic necrosis of left femur Dermatology Referral R21 - Rash and other nonspecific skin eruption Medications: New diclofenac sodium 1% apply to knees and hands 4 times a day 4 grams topical QID 100 grams 4RF Coding Level of Care Code Est Pt Level 5 (79068) Diagnoses Fibromyalgia M79.7 Avascular necrosis of bones of both hips M87.051; M87.052 Polyarticular osteoarthritis M15.9
[2024-10-09 11:02] VITALS: BP 108/78; PULSE 70; O2SAT 98; BMI 42.1
== END 2024-10-09 12:02 | disposition home or self-care (01) ==
PROVIDERS: PCP Internal Medicine; Visit Provider Student in an Organized Health Care Education/Training Program
DX: M79.7 Fibromyalgia (principal); M87.051 Idiopathic aseptic necrosis of right femur; M87.052 Idiopathic aseptic necrosis of left femur; M15.9 Polyosteoarthritis, unspecified
CPT/HCPCS: 99215

== ENCOUNTER → 2024-10-09 10:44 | Outpatient (BNVA) | payer OTHER, SELFPAY | PROVIDERS: PCP Internal Medicine; Visit Provider Student in an Organized Health Care Education/Training Program | DX: M17.0 Bilateral primary osteoarthritis of knee (principal); M79.7 Fibromyalgia; M87.051 Idiopathic aseptic necrosis of right femur; M87.052 Idiopathic aseptic necrosis of left femur; R21 Rash and other nonspecific skin eruption | CPT/HCPCS: 99212 ==

== ENCOUNTER 2024-11-12 13:28 | Outpatient (AMB) | payer OTHER, SELFPAY ==
--- NOTE | 2024-11-12 13:37 | MHC.PC.OV ---
Vital Signs 11/12/24 13:38 Height 5 ft 1 in Weight 224 lb BMI 42.3 BP 118/72 Blood Pressure Location Lt brachial Position Sitting Intake Visit Reasons: 6 mo f/u Nurse Reviewer Required: Yes Nurse Reviewer Language: It Director Name: Farideh Marquez MD Information Interpreted: non-clinical & clinical Accompanied by: RECRUITER ACCOUNT MANAGER Allergies senna Adverse Reaction (Intermediate, Verified 11/12/24 13:48) Dizziness Medication List - Last Reconciled 11/12/24 by Farideh Marquez MD acetaminophen 325 mg PO QID PRN [adult diapers pull-ups As directed] albuterol sulfate 90 mcg/actuation 2 puffs inhalation Q4H PRN albuterol sulfate 2.5 mg (3 mL) inhalation Q6H PRN amitriptyline 100 mg PO BEDTIME benralizumab (Fasenra) 30 mg subcut Q8W blood pressure kit-extra large As directed bupropion HCl XL 300 mg PO DAILY carboxymethylcellulose sodium 0.5% 1 drp ophthalmic (eye) BID PRN 30 days cefpodoxime 200 mg PO Q12H cetirizine 10 mg PO DAILY PRN 90 days chair, wheel (Wheel chair) As directed cholecalciferol (vitamin D3) (Vitamin D3) 25 mcg PO DAILY clonazepam 1 mg PO DAILY commode (bedside commode) As directed cromolyn 4% 1 drp ophthalmic (eye) 6XD 30 days diclofenac sodium 1% 4 grams topical QID diphenhydramine HCl (Banophen) 25 mg PO BEDTIME PRN disposable gloves As directed docusate sodium (Colace) 100 mg PO BID [electric wheelchair As directed] ertapenem 1 g IV DAILY esomeprazole magnesium 40 mg PO DAILY [flushable wipes As directed] bhpbmoqvjwj-myxjkxdqy-prcnjaxb 200-62.5-25 mcg (Trelegy Ellipta) 1 inh inhalation DAILY 30 days gabapentin 400 mg PO TID ketorolac 10 mg PO TID PRN 5 days lamotrigine 200 mg PO DAILY levothyroxine 50 mcg PO DAILY@0630 lidocaine 5% (Lidoderm) 1 patch topical DAILY lidocaine HCl 4% (AsperFlex (lidocaine HCl)) use 1-2 inch ointment and apply up to 3 times daily on L shoulder topically; lubiprostone 24 mcg PO BID meloxicam 15 mg PO DAILY miscellaneous medical supply OVERBED TABLE nebulizers (AeroEclipse II Nebulizer) As directed oxygen-air delivery systems As directed pantoprazole 40 mg PO BID polyethylene glycol 3350 (Miralax) 17 grams PO BID PRN [POWER LIFT RECLINER As directed] quetiapine 50 - 100 mg PO BEDTIME [recliner with power buttons As directed] rosuvastatin 10 mg PO DAILY [shower seat As directed] simethicone 125 mg PO QID PRN topiramate 100 mg PO BID tramadol 50 mg PO Q6H PRN trazodone 100 mg PO BEDTIME PRN 90 days underpads (Bed Underpads) As directed [wheelchair As directed] [wheeled table with drawers As directed] zolpidem 10 mg PO BEDTIME PRN Tobacco use date assessed: 11/12/24 Fall risk assessment: No Falls in past year Last assessed Fall Risk: 11/12/24 Dental Screening Dental Screen Date: 11/12/24 Did you have a dental visit in the last 12 months?: Yes Did you have a dental problem in the last 6 months where you did not have access to dental care?: No Was dental information given to patient?: Patient has dentist HPI HPI Comments History of Present Illness Details This is a 64-year-old female with moderate recurrent major depression, bipolar disorder, asthma-COPD overlap syndrome, hyperlipidemia, avascular necrosis of both hips by x-ray, cardiomyopathy, hyperlipidemia, morbid obesity, hypothyroid and interstitial lung disease that comes today accompanied by RECRUITER ACCOUNT MANAGER for follow-up on her conditions. Walks with a walker for gait stability. Depression and bipolar disorder stable with medications and this is follow by Psychiatry. Asthma-COPD overlap syndrome and interstitial lung disease are follow by pulmonology which has been well control. On statins for hyperlipidemia. I refer her to ortho for avascular necrosis of both hips but ortho said that lumbar spine is causing her more pain and is treating her. She is morbidly obese with a BMI of 42.3 and I will start her on GLP 1 agonist if insurance approved. Last TSH was normal. COUNT INCLUDES [facility] Medical History (Updated 11/12/24 @ 13:56 by Farideh Marquez MD) Polyarticular osteoarthritis Avascular necrosis of bones of both hips Dysuria Morbid obesity Avascular necrosis Physical exam Well woman exam Pre-op evaluation RSV (acute bronchiolitis due to respiratory syncytial virus) Chest pain Palpitations URI (upper respiratory infection) Snoring Encounter for screening for malignant neoplasm of colon Lumbar pain Urinary incontinence Low blood pressure Allergic reaction UTI (urinary tract infection) Palpitations Morbid obesity with BMI of 40.0-44.9, adult Epigastric abdominal pain Oxygen dependent Hypothyroidism Hypersomnia ILD (interstitial lung disease) ROB on CPAP History of ESBL E. coli infection Obstructive sleep apnea Moderate recurrent major depression Urinary retention Acute and chronic respiratory failure with hypoxia COVID-19 Lupus (systemic lupus erythematosus) Polyarthralgia Neck mass Eosinophilia Severe asthma Asthma-COPD overlap syndrome Trigger finger of right hand Recurrent UTI Tachycardia Obesity Lumbar degenerative disc disease GERD (gastroesophageal reflux disease) Hemangioma Hypovitaminosis D Bipolar 1 disorder Depression with anxiety Insomnia COPD (chronic obstructive pulmonary disease) Surgical History Hx of hand surgery Hx of cardiac catheterization History of esophagogastroduodenoscopy (EGD) History of cystocele History of colonoscopy History of shoulder surgery History of carpal tunnel release History of hysterectomy History of section History of tonsillectomy Family History Father Prostate cancer Mother No problems noted. Sister Nasopharyngeal cancer Social History Household Members: None Household Members Other:: 1 Housing: Apartment Do you presently have visiting nurse or other home services: Yes (Has RECRUITER ACCOUNT MANAGER) Alcohol intake: never Comment: sleeping Patient Tobacco Use Status: Former Tobacco user Years Smoked: 14 +/- e-Cigarette/Vaping Use: Never Used Second Hand Smoke Exposure: No Advance Directives Date on File: 01/08/21 service: No Current occupational status: disabled Current occupation: right and left handed--- HAS RECRUITER ACCOUNT MANAGER SERVICES Cognitive needs: Yes (walker ) Hearing needs: No Vision needs: Yes Female Reproductive History Menstrual Age of Menarche: 12 Questionnaire Thrive Questionnaire Date Thrive assessed: 01/28/24 DAO-7 AMB Questionnaire DAO-7 Date DAO - 7 assessed: 12/20/23 Source: Developed by Drs. Power Thornton, Melissa Peñaloza, Master Grijalva and colleagues, with an educational sudhir from [employer]. Review of Systems Const All systems reviewed & are unremarkable except as noted in HPI and below Card Denies chest pain at rest, Denies chest pain with activity, Denies edema, Denies irregular heart rhythm, Denies claudication, Denies dyspnea, Denies dyspnea on exertion, Denies orthopnea, Denies paroxysmal nocturnal dyspnea and Denies slow heart rate Resp Denies cough, Denies dyspnea and Denies dyspnea on exertion GI Denies abdominal pain, Denies change in bowel habits, Denies excessive flatus, Denies nausea and Denies vomiting Denies urinary incontinence, Denies urinary hesitancy and Denies urinary urgency Musc Denies atrophy, Denies deformity and Denies limited range of motion Skin/Breast Denies bleeding lesions, Denies changing lesions and Denies rash Physical exam (Primary Care) Vital Signs: Last Vital Signs BP 118/72 11/12/24 13:38 BMI result Body Mass Index 42.3 BMI Assessment/Plan discussion: High BMI High, discussed plan: lifestyle, weight reduction, dietary and physical activity Tobacco/Smoking Status: Tobacco use Status Tobacco use date assessed 11/12/24 11/12/24 13:43 Patient Tobacco Use Status Former Tobacco user 11/12/24 13:38 Tobacco use type 06/13/24 13:49 e-Cigarette/Vaping Use Never Used 11/12/24 13:38 Thrive Assessment: Date of Thrive Assessment Date Thrive assessed 01/28/24 11/12/24 13:38 Const Limitations: ambulation with walker Resp Effort & Inspection: normal respiratory effort Auscultation: clear to auscultation bilaterally Cardio Jugular venous distension: no JVD Rate: regular rate Rhythm: regular rhythm Heart sounds: S1 normal heart sound present and S2 normal heart sound present Extrem General: Yes full ROM Coding Level of Care Code Est Pt Level 4 (31321) Complex EM visit Add On G2211 Diagnoses Hyperlipidemia E78.5 Avascular necrosis of bones of both hips M87.051; M87.052 Morbid obesity E66.01 Hypothyroid E03.9 Cardiomyopathy I42.9 Asthma-COPD overlap syndrome J44.9 Moderate recurrent major depression F33.1 Bipolar 1 disorder F31.9 ILD (interstitial lung disease) J84.9 Time Spent (min) 23 Assessment & Plan Assessment & Plan (1) Hyperlipidemia: Code(s): E78.5 - Hyperlipidemia, unspecified Category: Medical (2) Avascular necrosis of bones of both hips: Code(s): M87.051 - Idiopathic aseptic necrosis of right femur; M87.052 - Idiopathic aseptic necrosis of left femur Category: Medical (3) Morbid obesity: Code(s): E66.01 - Morbid (severe) obesity due to excess calories Category: Medical (4) Hypothyroid: Code(s): E03.9 - Hypothyroidism, unspecified Category: Medical (5) Cardiomyopathy: Code(s): I42.9 - Cardiomyopathy, unspecified Category: Medical (6) Asthma-COPD overlap syndrome: Comment: follows [facility] Pulmonology Code(s): J44.9 - Chronic obstructive pulmonary disease, unspecified Category: Medical (7) Moderate recurrent major depression: Code(s): F33.1 - Major depressive disorder, recurrent, moderate Category: Medical (8) Bipolar 1 disorder: Code(s): F31.9 - Bipolar disorder, unspecified Category: Medical (9) ILD (interstitial lung disease): Code(s): J84.9 - Interstitial pulmonary disease, unspecified Category: Medical Plan Continue same medications. Weight patient daily. The goal is to not gain 5 lb in a week. Follow-up with pulmonology and Psychiatry. Start diet and exercise to reach BMI goal less than 30. Follow-up with ortho for avascular necrosis of both hips. Orders: Orders Lipid Panel 4 Months E78.5 - Hyperlipidemia, unspecified Vitamin D 25-OH Total 4 Months E55.9 - Vitamin D deficiency, unspecified Thyroid Stimulating Hormone 4 Months E03.9 - Hypothyroidism, unspecified Comprehensive [place]. Panel Fast 4 Months G43.909 - Migraine, unspecified, not intractable, without status migrainosus Medications: New lactulose 10 grams (15 mL) PO BEDTIME PRN 237 mL 2RF constipation 30 days tirzepatide (weight loss) (Zepbound) for 4 weeks 2.5 mg (0.5 mL) subcut QWEEK 2 mL 0RF 4 weeks E66.01 - Morbid (severe) obesity due to excess calories, E78.5 - Hyperlipidemia, unspecified Changed From acetaminophen 325 mg PO QID PRN Pain To acetaminophen 325 mg PO QID PRN 120 tabs 2RF Pain 30 days Refilled albuterol sulfate 90 mcg/actuation 2 puffs inhalation Q4H PRN 8.5 grams 11RF Wheezing
[2024-11-12 13:38] VITALS: BP 118/72; BMI 42.3
== END 2024-11-12 14:11 | disposition home or self-care (01) ==
PROVIDERS: PCP Internal Medicine; Visit Provider Internal Medicine
DX: E78.5 Hyperlipidemia, unspecified (principal); M87.051 Idiopathic aseptic necrosis of right femur; Z68.41 Body mass index [BMI] 40.0-44.9, adult; E66.01 Morbid (severe) obesity due to excess calories; M87.052 Idiopathic aseptic necrosis of left femur; I42.9 Cardiomyopathy, unspecified; J44.9 Chronic obstructive pulmonary disease, unspecified; F33.1 Major depressive disorder, recurrent, moderate; F31.9 Bipolar disorder, unspecified; J84.9 Interstitial pulmonary disease, unspecified; E03.9 Hypothyroidism, unspecified

== ENCOUNTER → 2024-11-12 13:28 | Outpatient (BNVA) | payer OTHER, SELFPAY | PROVIDERS: PCP Internal Medicine; Visit Provider Internal Medicine | DX: J44.89 Other specified chronic obstructive pulmonary disease (principal); E78.5 Hyperlipidemia, unspecified; I42.9 Cardiomyopathy, unspecified; E66.01 Morbid (severe) obesity due to excess calories; E03.9 Hypothyroidism, unspecified; M87.051 Idiopathic aseptic necrosis of right femur; M87.052 Idiopathic aseptic necrosis of left femur; Z79.899 Other long term (current) drug therapy; Z68.42 Body mass index [BMI] 45.0-49.9, adult | CPT/HCPCS: 99212 ==

== ENCOUNTER 2024-11-13 12:55 | Outpatient (REF) | payer OTHER, SELFPAY ==
[2024-11-13 13:53] LABS: Appearance Urine Clear; Color Urine Yellow; Glucose Urine UA Negative (Negative); Leukocyte Esterase Urine Trace (Negative); Nitrite Urine Negative (Negative); UMIC TRIGGER UACC YES; Urine Blood Negative (Negative); Urine Ketones Negative (Negative); Urine Protein Negative (Neg-Trace)
[2024-11-13 13:58] LABS: Bacteria Urine None Seen (None Seen); Hyaline Casts Urine 0-2 /LPF (0-2); RBC Urine 0-2 /HPF (0-2); Squamous Epithelial Cell Urine 0-2 /HPF (0-2); WBC Urine 0-5 /HPF (0-5)
== END 2024-11-13 12:56 | disposition home or self-care (01) ==
LOC: HO.LAB 12:55
PROVIDERS: PCP Internal Medicine; Visit Provider Physician Assistant Medical
DX: R30.0 Dysuria (principal)
CPT/HCPCS: 81001

== ENCOUNTER 2024-11-19 14:02 | Outpatient (AMB) | payer OTHER, SELFPAY ==
--- NOTE | 2024-11-19 14:14 | A.OFFVIS_ITS ---
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 Allergies senna Adverse Reaction (Intermediate, Verified 11/19/24 14:21) Dizziness HPI Comments Details: 64y/o female comes for evaluation of memory issues after 2 years The memory issues are mainly short term recall.She frequently misplaces things , repeats questions , trouble with names. she has trouble using the TV remote . she has sleep apnea, but has not used her CPAP and is using oxygen a sneeded . SHe has h/o depression, anxiety. she sees a pschiatrist and a psychologist [facility]. she denies any head injury.she is an exsmoker on ) 2 for COPD . 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 ON LICENSE OF [facility] Medical History Polyarticular osteoarthritis Avascular necrosis of bones of both hips Dysuria Morbid obesity Avascular necrosis Physical exam Well woman exam Pre-op evaluation RSV (acute bronchiolitis due to respiratory syncytial virus) Chest pain Palpitations URI (upper respiratory infection) Snoring Encounter for screening for malignant neoplasm of colon Lumbar pain Urinary incontinence Low blood pressure Allergic reaction UTI (urinary tract infection) Palpitations Morbid obesity with BMI of 40.0-44.9, adult Epigastric abdominal pain Oxygen dependent Hypothyroidism Hypersomnia ILD (interstitial lung disease) ROB on CPAP History of ESBL E. coli infection Obstructive sleep apnea Moderate recurrent major depression Urinary retention Acute and chronic respiratory failure with hypoxia COVID-19 Lupus (systemic lupus erythematosus) Polyarthralgia Neck mass Eosinophilia Severe asthma Asthma-COPD overlap syndrome Trigger finger of right hand Recurrent UTI Tachycardia Obesity Lumbar degenerative disc disease GERD (gastroesophageal reflux disease) Hemangioma Hypovitaminosis D Bipolar 1 disorder Depression with anxiety Insomnia COPD (chronic obstructive pulmonary disease) Surgical History Hx of hand surgery Hx of cardiac catheterization History of esophagogastroduodenoscopy (EGD) History of cystocele History of colonoscopy History of shoulder surgery History of carpal tunnel release History of hysterectomy History of section History of tonsillectomy Family History Father Prostate cancer Mother No problems noted. 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 SERVICES Cognitive needs: Yes (walker ) Hearing needs: No Vision needs: Yes Female Reproductive History Menstrual Age of Menarche: 12 Review of Systems Neuro Reports confusion Psych Reports confusion Physical Exam Vital Signs: BMI result Body Mass Index 42.3 Const General: cooperative, comfortable, no acute distress and confusion Nutritional Appearance: obese Orientation/consciousness: oriented to person, oriented to place and confusion Limitations: physical limitations HEENT Head: Yes normal to inspection and Yes normocephalic Eyes Pupils: Equal, round and reactive pupils present Neuro General: oriented to person, oriented to place and confusion Cranial nerves: Yes Facial sensation intact/muscles of mastication intact, Yes Equal, round and reactive pupils present, Yes Bilaterally intact EOM present, Yes Nystagmus not present, Yes Normal facial strength present, Yes Midline tongue present, Yes Symmetric palate elevation present and Yes Ability to bilaterally elevate shoulders present Cognition (Neuro): abnormal cognition Gait exam (Neuro): Antalgic gait present and Assisted gait required Motor exam (neuro): 5/5 motor strength present throughout and Normal motor muscle tone present throughout Orientation What is the (year) (season) (date) (day) (month)?: year, season, date, day and month Where are we (state) (county) (town or city) (hospital) (floor)?: state, county, town or city, hospital/clinic and floor Registration Name of 3 unrelated objects clearly and slowly, then ask patient to repeat all 3 of them. (1st repeat determines score. Make sure they can repeat all three): object 1, object 2 and object 3 Attention & Calculation (CHOOSE ONE) Spell WORLD backwards (DLROW): 3 letters Recall Ask patient to repeat the 3 items from question #3.: object 1, object 2 and object 3 Language Show patient a wristwatch & ask what it is. Repeat for pencil.: watch and pencil Ask the patient to repeat the phrase 'No ifs, ands, or buts' after you.: correct Ask the patient to 'take a piece of paper with their right hand' 'fold paper in half' 'place paper on floor': take paper in right hand and fold paper in half Print the sentence 'CLOSE YOUR EYES' on a piece. If patient actually closes eyes then score.: followed written direction Score Score: 25 Assessment & Plan Assessment & Plan (1) Memory loss: Comment: untreated ROB, poorly controlled mood disorder,polypharmacy ( amitriptyline, topiramate, clonazepam,zolpidem), vascular Code(s): R41.3 - Other amnesia Category: Medical Plan She did reasonable well on MMSE 25/30 with no change since her last visit 2 years ago. This is a multifactorial cognitive change - vascular , mood disorder, sleep apnea etc Encouraged her to restart CPAP. Lifetsyle modifications- weight management, vascular risk factors , Increase physicla activity consider tapering medications that affect her mentation like clonazepam, ambien , topiramate etc F/u psychiatry Coding Level of Care Code Est Pt Level 4 (14527) Complex EM visit Add On G2211 Diagnoses Memory loss R41.3
[2024-11-19 14:15] VITALS: BMI 42.3
--- OUTSIDE RECORDS SUMMARY | 2024-11-19 16:04 | XMS_ITS ---
Author Organization [facility] on Address Unknown Allergies, Adverse Reactions, Alerts Substance Reaction Status Noted Date Resolved Date unknown analgesia given antihistamin active 05/16/2020 Problems Problem Status Start Date End Date URINARY TRACT INFECTION, SIT E NOT SPECIFIED (Primary) (N39.0 - ICD-10-CM) ACTIVE 05/16/2020 CHRONIC OBSTRUCTIVE PULMONAR Y DISEASE, UNSPECIFIED (J44.9 - ICD-10-CM) ACTIVE 05/16/2020 TACHYCARDIA, UNSPECIFIED (R00.0 - ICD-10-CM) ACTIVE 05/16/2020 BILATERAL PRIMARY OSTEOARTHR ITIS OF KNEE (M17.0 - ICD-10-CM) ACTIVE 05/16/2020 OBSTRUCTIVE SLEEP APNEA (TEQUILA LT) (PEDIATRIC) (G47.33 - ICD-10-CM) ACTIVE 05/16/2020 OTHER INTERVERTEBRAL DISC DE GENERATION, LUMBAR REGION (M51.36 - ICD-10-CM) ACTIVE 05/16/2020 OBESITY, UNSPECIFIED (E66.9 - ICD-10-CM) ACTIVE 05/16/2020 PAIN IN UNSPECIFIED JOINT (M25.50 - ICD-10-CM) ACTIVE 05/16/2020 ACUTE RESPIRATORY FAILURE WI TH HYPOXIA (J96.01 - ICD-10-CM) ACTIVE 05/16/2020 OTHER BIPOLAR DISORDER (F31.89 - ICD-10-CM) ACTIVE 05/16/2020 MAJOR DEPRESSIVE DISORDER, R ECURRENT, UNSPECIFIED (F33.9 - ICD-10-CM) ACTIVE 05/16/2020 OTHER INSOMNIA (G47.09 - ICD-10-CM) ACTIVE 05/16 TYPE 1 DIABETES MELLITUS WIT HOUT COMPLICATIONS (E10.9 - ICD-10-CM) ACTIVE 05/16/2020 Results * KNEE AP OR LAT 1- 2V Performed by: [employer] Value Range Date KNEE AP OR LAT 1- 2V KNEE AP OR LAT 1- 2 VReason for Study: Z00.00 ENCOUNTER FOR GENERAL ADULT MEDICAL EXAMINATION WITHOUT ABNORMAL FINDINGSPrincipal Result Permanent Mold Supervisor: ROYCE STEVENS ([id number])Pipe Coremaker: HAJA KIM ([email or web address])Cafeteria Supervisor Pipe Coremaker: 07/18/2020 01:52 pm EDT * HIP UNI W OR W/O PELVIS 2-3 V Performed by: [employer] Component Value Range Date HIP UNI W OR W/O PELVIS 2-3 V HIP UNI W OR W/O PELVIS 2-3 VReason for Study: Z00.01 ENCOUNTER FOR GENERAL ADULT MEDICAL EXAMINATION WITH ABNORMAL FINDINGSPrincipal Result Permanent Mold Supervisor: ROYCE STEVENS ([phone])Pipe Coremaker: HAJA KIM ([email or web address])Cafeteria Supervisor Pipe Coremaker: 07/18/2020 01:52 pm EDT * KNEE AP OR LAT 1- 2V Performed by: [employer] Component Value Range Date KNEE AP OR LAT 1- 2V KNEE AP OR LAT 1- 2 VReason for Study: M25.561 PAIN IN RIGHT KNEEPrincipal Result Permanent Mold Supervisor: ROYCE STEVENS ([id number])Pipe Coremaker: HAJA KIM [email or web address])Cafeteria Supervisor Pipe Coremaker: 07/18/2020 01:52 pm EDT * HIP UNI W OR W/O PELVIS 2-3 V Performed by: [employer] Component Value Range Date HIP UNI W OR W/O PELVIS 2-3 V HIP UNI W OR W/O PELVIS 2-3 VKNEE AP OR LAT 1- 2V, LEFTResults: The knee joint is in alignment, but there is narrowing of the joint spacedue to mild degenerative changes. There is mild degenerative spurring involvingtibial spine and femoral condyles. No fracture or dislocation is seen. No jointeffusion is seen.Conclusion: Mild osteoarthritis of the left knee.Electronically signed by ROYCE STEVENS D.O. 07/18/2020 1:51:34 PM EDT. HIP UNI W OR W/O PELVIS 2-3 V, LEFTResults: The hip joint is in alignment, but there is narrowing of the joint space dueto modest degenerative changes. There is modest degenerative spurring involving theacetabular border and femoral head and neck junction. No fracture or dislocation isseen. Pubic rami are intact.Conclusion: Modest osteoarthritis of the left hip.Electronically signed by ROYCE STEVENS D.O. 07/18/2020 1:51:34 PM EDT. KNEE AP OR LAT 1- 2V, RIGHTResults: The knee joint is in alignment, but there is narrowing of the joint spacedue to modest degenerative changes. There is modest degenerative spurring involvingtibial spine and femoral condyles. No fracture or dislocation is seen. No jointeffusion is seen.Conclusion: Modest osteoarthritis of the right knee.Electronically signed by ROYCE STEVENS D.O. 07/18/2020 1:51:34 PM EDT. HIP UNI W OR W/O PELVIS 2-3 V, RIGHTResults: The right hip joint is in alignment, but there is narrowing of the jointspace due to modest degenerative changes. There is modest degenerative spurringinvolving the acetabular border and femoral head and neck junction. No fracture ordislocation is seen. Pubic rami are intact.Conclusion: Modest osteoarthritis of the right hip.Electronically signed by ROYCE STEVENS D.O. 07/18/2020 1:51:34 PM EDT.Reason for Study: M25.551 PAIN IN RIGHT HIPPrincipal Result Permanent Mold Supervisor: ROYCE STEVENS ([phone])Pipe Coremaker: HAJA KIM ([email or web address])Cafeteria Supervisor Pipe Coremaker: CRISTELA 07/18/2020 01:52 pm EDT * SHOULDER COMPLETE, MIN 2V Performed by: [employer] Component Value Range Date SHOULDER COMPLETE, MIN 2V SHOULDER COMPL ETE, MIN 2VReason for Study: R52 PAIN, UNSPECIFIEDPrincipal Result Permanent Mold Supervisor: JUS LORENZO ([id number])Pipe Coremaker: GOOD BARRY (DCONDON)Cafeteria Supervisor Pipe Coremaker: CRISTELA 06/22/2020 01:06 pm EDT * KNEE AP OR LAT 1- 2V Performed by: [employer] Component Value Range Date KNEE AP OR LAT 1- 2V KNEE AP OR LAT 1- 2 VSHOULDER COMPLETE, MIN 2V, LEFTResults: No acute fracture or dislocation. The osseous structures appear intact. Joint spaces are narrowed. Soft tissues are unremarkable.Conclusion: No acute osseous abnormality. Degenerative changes.Electronically signed by JUS LORENZO M.D. 06/22/2020 1:05:42 PM EDT. KNEE AP OR LAT 1- 2V, LEFTResults: No acute fracture or dislocation. The osseous structures appear intact. Joint spaces are narrowed. Soft tissues are unremarkable.Conclusion: No acute osseous abnormality. Degenerative changes.Electronically signed by JUS LORENZO M.D. 06/22/2020 1:05:42 PM EDT.Reason for Study: R52 PAIN, UNSPECIFIEDPrincipal Result Permanent Mold Supervisor: JUS LORENZO ([phone])Pipe Coremaker: GOOD BARRY (DCONDON)Cafeteria Supervisor Pipe Coremaker: CRISTELA 06/22/2020 01:06 pm EDT Encounters Encounter Performer Performer Role Encounter Diagnoses Location Date Discharge - Discharged to home or self care - Home. - Private home/apt. with no home health services [facility] 05/16/2020 01:18 pm EDT - 08/03/2020 04:41 pm EDT Immunizations Vaccine Date Influenza TB 2 Step Mantoux Skin Test TB 2 Step [facility]oux Skin Test 05/24/2020 0 5:00 pm EDT Social History
--- OUTSIDE RECORDS SUMMARY | 2024-11-19 16:04 | XMS_ITS | Data Portability ---
Author Organization [facility] [place] [facility] [email or web address] Address [address] [place] [address] Care Team Providers Care Private Equity Analyst Name Role Phone DICKSON SAEZ Primary Care Provider HIM CCA OTHER Assessment Encounter Date Assessment Date Assessment LastModified by Organization Details LastModified Time 03/10/2022 03/10/2022 62 YOF being see n for puritic rash. Pt given a dose of prednisone and put on prednisone burst for rash. Pt noted to have latex allergy and then noted that mattress she has is a latex matress, thus is possible cause of rash. [email or web address] Not available 03/11/2022 10:34:47 07/18/2022 07/18/2022 service called f or rash found 62 kayleigh in usual state of health except c/o new rash face and chest recently started regular ASA denies other environmental exposures rash red, itchy VS stable most likely drug-related rash 2/2 new standing ASA instructed pt d/c ASA provided IM benadryl pt ot seek law enforcement director and PCP f/up return ot primary team notify service if worsening rash or new SOB [email or web address] Not available 07/18/2022 22:12:53 08/26/2024 08/26/2024 As noted, we sravan e called to see this patient regarding concerns of dysuriaEvaluation in the field was performed by my can operator colleague, as noted above, I provided real-time direction and supervision for this visit. 64 F reporting 3 days lower abd discomfort, dysuria, pink urine. no fever. hx of uti in the past (i dont see any evidence of drug resistence. eating and drinking well, moving bowels. no med allergies. Impression: cystitis Plan: cefpodoxime 200 mg bid x 5 days Disposition: We discussed the diagnostic uncertainty of home visits and the risk associated with this. In this case, the patient and I felt this to be an acceptable and reasonable amount of risk given the benefit of avoiding an ED visit. We discussed the need to seek care urgently/emergently in the setting of any new or worsening serious symptoms, particularly flank pian, fever. [email or web address] Not available 08/26/2024 20:23:21 Plan of Treatment Reminders Order Date Submit Date Provider Last Modified By Organization Details Last Modified Time Details Appointments None recorded. Lab urinalysis, dipstick 2021 022 [email or web address] [facility], [address] [place] [address], [id number], 11:28:27 unlisted lab - urinalysis w/reflex culture 2021 MCCRACKEN [facility], [address] [place], [address], 19:05:47 culture, urine 2023 024 MCCRACKEN [facility], [address] [place], [address], 10:06:26 urinalysis, dipstick 2023 024 [email or web address] [facility], [address] [place] [address], [phone], 20:23:24 Referral None recorded. Procedures None recorded. Surgeries None recorded. Imaging None recorded. Medication Orders Macrobid 100 mg capsule 2021 [id number], [address] [place], [address], 11:32:24 Pyridium 100 mg tablet 2021 [id number], [address] [place], [address], 11:32:24 prednisone 50 mg tablet 2021 [id number], [address] [place], [address], 2 11:38:43 prednisone 20 mg tablet 2021 022 [email or web address] Not available 11:55:52 cefpodoxime 200 mg tablet 2023 024 [id number], [address] [place], [address], 4 18:25:11 Patient TargetsNo targets recorded. Patient InstructionsNo instructions recorded. Reason for Referral None Reported. Results Created Date Observation Date Name Description Value Unit Range Abnormal Flag Note LastModifiedBy Organization Detail LastModifiedTime 02/20/20 22 02/19/2022 UA W/REF MARIE CULTU RE appear/color LIGHT YELLO W CLEAR Not Available [facility] [address] [place], [address], 02/19/2022 19:05:46 02/20/20 22 02/19/2022 UA W/REF MARIE CULTU RE sp. gravity 1.009 (1.002 -1.030 ) Not Available [facility] [address] [place], [address], 02/19/2022 19:05:46 02/20/20 22 02/19/2022 UA W/REF MARIE CULTU RE urine pH 7.5 (5.0-8 .0) Not Available [facility] [address] [place], [address], 02/19/2022 19:05:46 02/20/20 22 02/19/2022 UA W/REF MARIE CULTU RE urine albumin NEGATI VE (neg) Not Available [facility] [address] [place], [address], 02/19/2022 19:05:46 02/20/20 22 02/19/2022 UA W/REF MARIE CULTU RE urine glucose NEGATI VE (neg) Not Available [facility] [address] [place], [address], 02/19/2022 19:05:46 02/20/20 22 02/19/2022 UA W/REF MARIE CULTU RE urine ketones NEGATI VE (neg) Not Available [facility] [address] [place], [address], 02/19/2022 19:05:46 02/20/20 22 02/19/2022 UA W/REF MARIE CULTU RE urine bilirubin NEGATI VE (neg) Not Available [facility] [address] [place], [address], 02/19/2022 19:05:46 02/20/20 22 02/19/2022 UA W/REF MARIE CULTU RE urine hemoglobin NEGATI VE (neg) Not Available [facility] [address] [place], [address], 02/19/2022 19:05:46 02/20/20 22 02/19/2022 UA W/REF MARIE CULTU RE urine nitrite NEGATI VE (neg) Not Available [facility] [address] [place], [address], 02/19/2022 19:05:46 02/20/20 22 02/19/2022 UA W/REF MARIE CULTU RE urine leukocyte 2+ (neg) abnormal Not Available [facility] [address] [place], [address], 02/19/2022 19:05:46 02/20/20 22 02/19/2022 UA W/REF MARIE CULTU RE urobilinogen NORMAL mg/dL (norm) Not Available [facility] [address] [place], [address], 02/19/2022 19:05:46 02/20/20 22 02/19/2022 UA W/REF MARIE CULTU RE urine WBCs 17 /hpf (0-5) high Not Available [facility] [address] [place], [address], 02/19/2022 19:05:46 02/20/20 22 02/19/2022 UA W/REF MARIE CULTU RE urine RBCs 1 /hpf (0-3) Not Available [facility] [address] [place], [address], 02/19/2022 19:05:46 02/20/20 22 02/19/2022 UA W/REF MARIE CULTU RE bacteria SLIGHT hpf (neg) abnormal Not Available [facility] [address] [place], [address], 02/19/2022 19:05:46 02/20/20 22 02/19/2022 UA W/REF MARIE CULTU RE mucus SLIGHT /lpf Not Available [facility] [address] [place], [address], 02/19/2022 19:05:46 02/20/20 22 02/19/2022 UA W/REF MARIE CULTU RE squamous epith 1 /hpf (0-8) Not Available [facility] [address] [place], [address], 02/19/2022 19:05:46 02/20/20 22 02/19/2022 UA W/REF MARIE CULTU RE transitional epith <1 /hpf Not Available [facility] [address] [place], [address], 02/19/2022 19:05:46 02/20/20 22 02/19/2022 UA W/REF MARIE CULTU RE renal epith <1 /hpf Not Available [facility] [address] [place], [address], 02/19/2022 19:05:46 02/20/20 22 02/19/2022 UA W/REF MARIE CULTU RE clarity CLEAR (clear ) Not Available [facility] [address] [place], [address], 02/19/2022 19:05:46 02/20/20 22 02/19/2022 UA W/REF MARIE CULTU RE culture indication CULTUR E INDICA MIGDALIA Not Available [facility] [address] [place], [address], 02/19/2022 19:05:46 02/20/20 22 02/19/2022 URINE CULTU RE special requests NONE Reflex ed from [id number] Not Available [facility] [address] [place], [address], 02/21/2022 09:59:20 02/20/20 22 02/20/2022 URINE CULTU RE specimen description URINE Not Available [facility] [address] [place], [address], 02/21/2022 09:59:20 02/20/20 22 02/21/2022 URINE CULTU RE culture Mixed bacter ial lizeth, indica tive of urogen ital contam inatio n. Not Available [facility] [address] [place], [address], 02/21/2022 09:59:20 02/20/20 22 02/21/2022 URINE CULTU RE report status FINAL 2021 Not Available [facility] [address] [place], [address], 02/21/2022 09:59:20 02/20/20 22 02/19/2022 urina lysis , dipst ick Leukocytes ++ Not Available [facility] [address] [place] [address], [phone], 02/19/2022 11:27:23 02/20/20 22 02/19/2022 urina lysis , dipst ick Nitrite positi ve Not Available [facility] [address] [place] [address], [id number], 02/19/2022 11:27:23 02/20/20 22 02/19/2022 urina lysis , dipst ick Ketone 1+ Not Available [facility] [address] [place] [address], [phone], 02/19/2022 11:27:23 10/08/29/2024 URINE CULTU RE,CO MPREH ENSIV E urine culture,comp rehensive Final report Not Available [facility] ([facility]) [address] [facility], [place], [address], 08/29/2024 10:06:37 08/26/2008/29/2024 URINE CULTU RE,CO MPREH ENSIV E result 1 COMMEN T No growt h in 36 - 48 hours . Not Available [facility] ([facility]) [address] [facility], [place], [address], 08/29/2024 10:06:37 Result Notes None recorded. Medical Equipment None Reported. Medications Name Sig Start Date Stop Date Status Note LastModified by Organization Details LastModified Time cyclobenzapri ne 10 mg tablet TAKE 1 TABLET BY MOUTH 3 TIMES A DAY NEEDED FOR SPASM FOR 7 DAYS active Not Available Not Available No t Available amoxicillin 500 mg capsule TAKE 1 CAPSULE BY MOUTH THREE TIMES A DAY UNTIL GONE active Not Available Not Available No t Available acetaminophen 325 mg tablet TAKE 2 TABLET BY MOUTH EVERY 8 HOURS NEEDED active Not Available Not Available No t Available prednisone 10 mg tablet TAKE 2 TABLETS BY MOUTH DAILY FOR 5 DAYS THEN 1 TABLET DAILY FOR 5 DAYS active Not Available Not Available No t Available gabapentin 600 mg tablet active Not Available Not Availabl e Not Available doxycycline hyclate 100 mg capsule TAKE 1 CAPSULE BY MOUTH TWICE A DAY FOR 10 DAYS active Not Available Not Available No t Available cefuroxime axetil 250 mg tablet TAKE 1 TABLET BY MOUTH TWICE A DAY active Not Available Not Available No t Available lamotrigine 200 mg tablet TAKE 1 TABLET BY MOUTH TWICE A DAY active Not Available Not Available No t Available albuterol sulfate 2.5 mg/3 mL (0.083 %) solution for nebulization 2.5 MG (3 ML) INHALED EVERY 6 HOURS NEEDED FOR FOR WHEEZING active Not Available Not Available No t Available trazodone 50 mg tablet TAKE 1 TABLET BY MOUTH EVERYDAY AT BEDTIME active Not Available Not Available N ot Available cetirizine 10 mg tablet TAKE 1 TABLET BY MOUTH EVERY DAY NEEDED FOR ALLERGIES active Not Available Not Available No t Available cefpodoxime 200 mg tablet TAKE 1 TABLET BY MOUTH EVERY 12 HOURS FOR 5 DAYS active Not Available Not Available No t Available fosfomycin tromethamine 3 gram oral packet active Not Available Not Available Not Available valacyclovir 1 gram tablet TAKE 1 TABLET BY MOUTH EVERY 8 HOURS FOR 7 DAYS active Not Available Not Available No t Available hydrocodone 5 mg-acetaminop hen 325 mg tablet 1 TAB ORALLY EVERY 4 TO 6 HOURS NEEDED FOR PAIN PARTIAL FILL UPON PATIENT REQUEST. active Not Available Not Available No t Available sumatriptan 25 mg tablet active Not Available Not Available Not Available prednisone 20 mg tablet TAKE 1 TABLET BY MOUTH TWICE A DAY active Not Available Not Available No t Available gabapentin 400 mg capsule TAKE 1 CAPSULE BY MOUTH THREE TIMES A DAY active Not Available Not Available No t Available clonazepam 1 mg tablet TAKE 1 TABLET BY MOUTH TWICE A DAY active Not Available Not Available No t Available cromolyn 4 % eye drops PLACE 1 DROP INTO THE EYE(S) 6 TIMES A DAY FOR 30 DAYS active Not Available Not Available No t Available metronidazole 500 mg tablet TAKE 1 TABLET BY MOUTH TWICE A DAY FOR 7 DAYS active Not Available Not Available No t Available valacyclovir 500 mg tablet TAKE 2 TABLETS BY MOUTH 3 TIMES A DAY WITH MEALS,X7 DAYS active Not Available Not Available No t Available tramadol 50 mg tablet TAKE 1 TABLET BY MOUTH EVERY 6 HOURS FOR 7 DAYS NEEDED FOR MODERATE PAIN active Not Available Not Available No t Available ketorolac 0.5 % eye drops INSTILL 1 DROP INTO THE AFFECTED EYE(S) EVERY 6 HOURS NEEDED FOR ITCHY EYES active Not Available Not Available N ot Available methenamine hippurate 1 gram tablet TAKE 1 TABLET BY MOUTH TWICE A DAY active Not Available Not Available No t Available trazodone 100 mg tablet TAKE 1 TABLET BY MOUTH EVERYDAY AT BEDTIME active Not Available Not Available N ot Available phenazopyridi ne 100 mg tablet TAKE 1 TABLET BY MOUTH THREE TIMES A DAY FOR 2 DAYS active Not Available Not Available No t Available levothyroxine 50 mcg tablet TAKE 1 TABLET BY MOUTH EVERY DAY AT 6:30 active Not Available Not Available No t Available pantoprazole 40 mg tablet,delaye d release TAKE 1 TABLET BY MOUTH TWICE A DAY active Not Available Not Available No t Available Banophen 25 mg tablet TAKE 1 TABLET BY MOUTH AT BEDTIME NEEDED FOR SLEEP active Not Available Not Available No t Available esomeprazole magnesium 40 mg capsule,delay ed release TAKE 1 CAPSULE BY MOUTH EVERY DAY active Not Available Not Available No t Available nitrofurantoi n macrocrystal 100 mg capsule TAKE 1 CAPSULE BY MOUTH TWICE A DAY WITH FOOD active Not Available Not Available No t Available prednisone 50 mg tablet TAKE 1 TABLET BY MOUTH EVERY DAY FOR 5 DAYS active Not Available Not Available N ot Available ibuprofen 400 mg tablet TAKE 1 TABLET BY MOUTH EVERY 6 TO 8 HOURS NEEDED FOR PAIN active Not Available Not Available No t Available gabapentin 300 mg capsule TAKE 1 CAPSULE BY MOUTH THREE TIMES A DAY active Not Available Not Available No t Available Banophen 25 mg capsule TAKE 1 CAPSULE ORALLY BEDTIME NEEDED FOR SLEEP active Not Available Not Available No t Available montelukast 10 mg tablet TAKE 1 TABLET BY MOUTH EVERYDAY AT BEDTIME active Not Available Not Available N ot Available levofloxacin 500 mg tablet active Not Available Not Availabl e Not Available estradiol 0.01% (0.1 mg/gram) vaginal cream PLACE 1 GRAM VAGINALLY 3 TIMES PER WEEK DIRECTED active Not Available Not Available No t Available zolpidem 10 mg tablet TAKE 1 TABLET BY MOUTH EVERY DAY AT BEDTIME NEEDED active Not Available Not Available No t Available albuterol sulfate HFA 90 mcg/actuation aerosol inhaler INHALE 2 PUFFS BY MOUTH EVERY 4 HOURS NEEDED FOR WHEEZE active Not Available Not Available No t Available topiramate 100 mg tablet TAKE 1 TABLET BY MOUTH TWICE A DAY active Not Available Not Available No t Available amitriptyline 100 mg tablet TAKE 1 TABLET BY MOUTH EVERYDAY AT BEDTIME active Not Available Not Available N ot Available loratadine 10 mg tablet TAKE 1 TABLET BY MOUTH EVERY DAY active Not Available Not Available No t Available naproxen 500 mg tablet TAKE 1 TABLET BY MOUTH TWICE A DAY NEEDED FOR PAIN active Not Available Not Available No t Available amoxicillin 875 mg-potassium clavulanate 125 mg tablet TAKE 1 TABLET TWICE A DAY FOR 10 DAYS active Not Available Not Available No t Available neomycin 3.5 mg/g-polymyxi n B 10,000 unit/g-dexame th 0.1 % eye oint APPLY INTO BOTH EYES AT BEDTIME active Not Available Not Available N ot Available ertapenem 1 gram solution for injection active Not Available Not Availabl e Not Available metaxalone 800 mg tablet active Not Available Not Availabl e Not Available Vitamin D3 25 mcg (1,000 unit) capsule TAKE 1 CAPSULE BY MOUTH EVERY DAY active Not Available Not Available No t Available rosuvastatin 10 mg tablet TAKE 1 TABLET ORALLY EVERY OTHER DAY FOR 90 DAYS active Not Available Not Available No t Available bupropion HCl XL 300 mg 24 hr tablet, extended release TAKE 1 TABLET BY MOUTH EVERY DAY IN THE MORNING active Not Available Not Available No t Available nitrofurantoi n monohydrate/m acrocrystals 100 mg capsule TAKE 1 CAPSULE BY MOUTH EVERY 12 HOURS FOR 5 DAYS active Not Available Not Available No t Available lubiprostone 24 mcg capsule TAKE 1 CAPSULE BY MOUTH TWICE A DAY active Not Available Not Available No t Available quetiapine 50 mg tablet active Not Available Not Available No t Available Pulmicort Flexhaler 180 mcg/actuation breath activated active Not Available Not Available No t Available Lubricant Eye Drops 0.5 % drops in a dropperette ISNTILL 1 DROP INTO THE EYE(S) 2 TIMES A DAY NEEDED FOR DRY EYE(S) FOR 30 DAYS active Not Available Not Available No t Available butalbital-ac etaminophen-c affeine 50 mg-300 mg-40 mg capsule TAKE 1 CAPSULE BY MOUTH EVERY 8 HOURS NEEDED FOR PAIN active Not Available Not Available No t Available Linzess 145 mcg capsule TAKE 1 CAPSULE BY MOUTH EVERY DAY active Not Available Not Available No t Available Victoza 2-Scott 0.6 mg/0.1 mL (18 mg/3 mL) subcutaneous pen injector active Not Available Not Available Not Available ProAir RespiClick 90 mcg/actuation breath activated active Not Available Not Available No t Available Breo Ellipta 200 mcg-25 mcg/dose powder for inhalation TAKE 1 PUFF BY MOUTH EVERY DAY active Not Available Not Available No t Available Fasenra 30 mg/mL subcutaneous syringe active Not Available Not Available Not Available Trelegy Ellipta 200 mcg-62.5 mcg-25 mcg powder for inhalation INHALE 1 PUFF BY MOUTH EVERY DAY active Not Available Not Available No t Available Vitals Date Recorded Heart rate Body temperature Oxygen saturation Oxygen saturation in Arterial blood by Pulse oximetry Respiratory rate Systolic blood pressure Diastolic blood pressure Provider Name and Address Organization Details Last Updated DateTime 4 91 /min 98.8 [degF] 100 % 100 % 16 /min 128 mm[Hg] 88 mm[Hg] Not Available [facility] 4 18:22:11 Date Recorded Heart rate Oxygen saturation Oxygen saturation in Arterial blood by Pulse oximetry Body temperature Body weight Body height Respiratory rate Body height Oxygen saturation Oxygen saturation in Arterial blood by Pulse oximetry Respiratory rate Heart rate Body temperature Body weight Systolic blood pressure Diastolic blood pressure Systolic blood pressure Diastolic blood pressure Provider Name and Address Organization Details Last Updated DateTime 2 90 /min 99 % 99 % 97.9 [degF] 12849.0 56 g 154.94 cm 20 /min 154.94 cm 99 % 99 % 20 /min 90 /min 97.9 [degF] 29625.0 56 g 118 mm[Hg] 78 mm[Hg] 118 mm[Hg] 78 mm[Hg] Not Available [facility] 2 18:28:00 Date Recorded Body temperature Heart rate Respiratory rate Oxygen saturation Oxygen saturation in Arterial blood by Pulse oximetry Systolic blood pressure Diastolic blood pressure Provider Name and Address Organization Details Last Updated DateTime 2 98.6 [degF] 95 /min 20 /min 97 % 97 % 120 mm[Hg] 70 mm[Hg] Eden Coronado MD [address] [place] [address],[address], [place], [address] [place] [address] [facility] 2 11:36:33 Date Recorded Respiratory rate Heart rate Oxygen saturation Oxygen saturation in Arterial blood by Pulse oximetry Body temperature Systolic blood pressure Diastolic blood pressure Provider Name and Address Organization Details Last Updated DateTime 2 16 /min 89 /min 99 % 99 % 98.5 [degF] 113 mm[Hg] 76 mm[Hg] Not Available [facility] 2 12:14:07 Social History None recorded. Functional Status None recorded. Mental Status None recorded. Family History Nothing Reported. Medical History No medical history recorded. Gynecological HistoryNo gynecological history recorded. Obstetrics History GPAL:G 0 P 0 0 0 0 Past Encounters Encounter ID Performer Location Encounter Start Date Encounter Closed Date Diagnosis/Indication Diagnosis SNOMED-CT Code Diagnosis ICD10 Code Diagnosis Note [id number] [facility] [address] [place] [phone] 02/18/2022 14:31:32 07/07/2022 13:35:00 Periorbital edema 80591842 H05.229 62yo woman evaluated for months of chronic itchy/swol lidya periorbita l region around the eyes. She has been treated with ketorolac eye drops without response (she feels maybe making it worse). I'm not sure if the cause is allergic. Nephrotic syndrome unlikely given no other edema. Given chronic nature of symptoms and unclear diagnosis I did not recommend ny changes ot therapy. [id number] Eden Coronado MD [facility] [address] [place] [id number] 02/19/2022 09:58:40 07/05/2022 15:20:25 Dysuria 58213662 R30.9 Pt with hx prior UTIs (though no cx available for review) p/w recurrent UTI sx without fever or flank pain to suggest pyelonephr itis or sepsis. UA c/w UTI. Given increasing evidence that Macrobid is effective in elderly iso normal renal function will treat empiricall y w/ Macrobid, recommende d PCP f/up to reveiw culture and confirm sensitive to this treatment. Also rx for pyridium. Red flag symptoms reviewed, pt instructed to call 911 if condition worsens or new symptoms develop, pt expressed understand ing. I have reviewed and agree with the assessment and plan as documented by the can operator. I provided real time medical direction for this encounter and was immediatel y available to provide additional phone based assistance as needed. Periorbital edema 781881 00 H05.229 Symptoms persist since last [facility] visit, continuing on allergy tx. urine dip today w/o protein to suggest nephrotic syndomre, recommend PCP f/up for allergy testing/tx . Urine dip also w/ trace ketones but no hx diabetes and normal PO intake, likely contaminat ion from adjacent test strip. F/up formal urinalysis [id number] Kenneth Castellon MD [facility] [address] [place] [phone] 03/10/2022 11:36:32 07/06/2022 14:33:02 Pruritic rash [id number] L28.2 [id number] Braydon Recio MD [facility] [address] [place] [phone] 07/18/2022 17:25:40 07/22/2022 13:31:39 Pruritic rash [id number] L28.2 [id number] Gerardo Lunsford MD [facility] [address] [place] [phone] 08/26/2024 18:22:09 08/26/2024 21:57:44 Acute urinary tract infection [id number] N39.0 Health Concerns Section Related Observation LastModified by Organization Detai ls LastModified Time None Recorded Concern Status LastModified by Organization Details LastModified Time None Recorded Advance Directives Directive None Recorded Payers Encounter Date Sequence Insurance Name Policy Number Policy Burnham Covered Member ID Burnham Member ID Guarantor Name 02/18/2022 1 [facility] - DOS PRIOR TO 2023 - DUAL ELIGIBLE (MEDICARE REPLACEMENT/ADV ANTAGE - HMO) Gracy Mar Mead [id number] Gracy Mar Mead 02/19/2022 1 [facility] - DOS PRIOR TO 2023 - DUAL ELIGIBLE (MEDICARE REPLACEMENT/ADV ANTAGE - HMO) Gracy Mar Mead [id number] Gracy Mar Mead 03/10/2022 1 [facility] - DOS PRIOR TO 2023 - DUAL ELIGIBLE (MEDICARE REPLACEMENT/ADV ANTAGE - HMO) Gracy Mar Mead [id number] Gracy Mar Mead 07/18/2022 1 [facility] - DOS PRIOR TO 2023 - DUAL ELIGIBLE (MEDICARE REPLACEMENT/ADV ANTAGE - HMO) Gracy Mar Mead [id number] Gracy Mar Mead 08/26/2024 1 [facility] - DOS ON OR AFTER 2023 - DUAL ELIGIBLE - [employer] AND ONE [employer] (MEDICARE REPLACEMENT/ADV ANTAGE - HMO) Gracy Mar Mead [id number] Gracy Mar Mead Notes Date Note Type Note Provider Name and Address Organization Details Recorded Time 02/18/2022 text/html Member c/o swollen/itchy eyes w congestion, unable to see and open eyes. Member was in the hospital for over a month and they adjusted eye drops during admission with no help with symptoms . Member was in the hospital for COVID and was d/c in SEP . Poker Room Manager Visit Summarydispatched to the above location for a patient with swelling of the eyes. upon arrival patient was located sitting in a recliner in her home. patient is alert and oriented skin is warm pink and dry. patient states she has had swelling on and off for approx 8 months. the area around patients eyes is red and swollen at this time. patient states she took Benadryl prior to my arrival and it reduced the itching and swelling of her eyes. patient states she was given eye drops from the hospital but they are not working and one of them makes her eyes burn and makes her itch her eyes. vitals were obtained and are as documented. picture sent to [facility]. [facility] contacted and states to keep using her prescribed eye drops and that she should follow up with her doctor for further treatment. at this time red flags explained to the patient, patient advised to seek treatment if any of the red flags arise. Surya Acevedo MD [address] [facility],[address], [place], [phone], [facility] 02/18/2022 14:35:29 02/19/2022 text/html Per request: Mem maricruz seen today 02/18 for itchy/swollen eyes, no other concerns were voiced during visit.Member called back in stating she needed another [facility] for tomorrow 02/19.Member was treated for a UTI 1.5 weeks ago with an ABX. About 4 days ago member states she started with urinary symptoms again. Has c/o pain and burning with urination, urine is dark and concentrated with an odor. Has chill but denies fever. Poker Room Manager documentation:Patient is a 62 year old female with UTI symptoms. Patient alert, oriented and ambulatory. Patient in no acute distress, airway patent, breathing normally, skin WPD. Patient states that she has an extensive history of UTI, she has been treated for UTI multiple times and was hospitalized last week for UTI. Patient was released home, 4 days ago her symptoms began again. Burning when urinating, malodor, concentrated, feeling as if she needs to urinate more often but is having some retention. Urine sample obtained and dipped, detected changes in Leukocytes, Nitrates, PH, KET. Urine brought to [facility] for culture. Vital signs obtained and all within normal limits. Red flags discussed. Consulted with Dr. Coronado. Patient is to follow up with PCP on Monday regarding her signs, symptoms and todays visit. Dr. Coronado prescribed the patient Macrobid and Pyridium, prescriptions sent to patients pharmacy for pickup. Patient to contact PCP regarding urine culture results. Contact [facility] for a re-visit if symptoms persist. Contact 911 for any discussed red flags or other emergencies. Eden Coronado MD [address] [facility] [address], [place], [address], [facility] 02/19/2022 16:34:18 03/10/2022 text/html HPI: mbr with complaints of wide spread/painful rash, states watery eyes, no open wounds, pustules reported. denies any SOB/N/V or difficulty swallowing. requesting [facility] vist. Protocol Used: Rash or Redness - Widespread Protocol-Based Disposition: Consider instED, [facility] Community Clinician, or PCP visit within 24 hours Positive Triage Question: * SEVERE itching (i.e., interferes with sleep, normal activities or school) Negative Triage Questions: * Bloody crusts on lips or sores in mouth * Face becomes swollen * Sore throat ...................... ...................... ...................... ...................... ...................... ...................... ......... Poker Room Manager Note: dispatched to the above location for a female patient with a rash and itchy eyes. upon arrival patient was located sitting in a chair in her home. patient is alert and oriented X4. patient is Venezuelan speaking with little Mongolian. family on scene to interpret. at this time patient states she has had a rash and itchy eyes since January and it came on all of a sudden. patient has what appears like it could be bed bug bites on her chest abdomen and face. patient has been treated with Benadryl Claritin and Benadryl cream with only mild relief. at this time patient states she may have bed bugs and has been spraying her mattress with alcohol and off deep aburto spray. patient also states she has a in the past had a mild reaction of rash and irritation to latex and that is what her bed is made of. at this time vitals obtained and are as documented. [facility] contacted and states to give 40 MG of prednisone for the itching and to a prescription will be sent to the patients pharmacy. at this time 40 MG of PO Prednisone given to the patient. patient advised she needs to get a new bed and disinfect her home in the event that it is bed bugs. at this time patient advised of red flags and advised to seek treatment if red flags arise. at this time i cleared without incident. ...................... ...................... ...................... ...................... ...................... ...................... ......... Disposition: Fulfilled Kenneth Castellon MD [address] [place] [address],[address], [place], [address], [employer] 03/11/2022 10:35:01 07/18/2022 text/html [facility] Nursing Assessment: Reason For Request: PMH: fibromyalgia Reasons: Redness all over her face and chest. Rash is warm to the touch. Patient's nephew describes it as mildy itchy. Allergic reaction to something? Patient was recently prescribed Aspirin07/14/22. Patient's nephew states reaction started yesterday (07/17/22) afternoon. Chief Complaints: Syncope/Dizziness/Ligh theadedness PMH: Heart Disease, COPD/Asthma Allergies: No Known Comments: Member had new flare up with rash on face and chest , family denies changes in food but did start ASA on Monday , rash started yesterday . spoke to PCP for allergy work up. Member has taken bonophin with no changes .Family denies sob/ Facial swelling / or swallow issues Family was reminded to call 911 if this changes . ...................... ...................... ...................... ...................... ...................... ...................... ......... Poker Room Manager Note: Sent to a call for a pt complaining of a rash on face and chest. SC8 arrives on scene, pt is alert and oriented. Airway is patent. Pt primarily speaks Venezuelan, family serves as corporate learning consultant. Pt was prescribed ASA daily on 07/14, and noticed itchy rash on face and chest starting yesterday. Pt's last dose of ASA was yesterday morning. Pt took Diphenhydramine 75mg yesterday and this morning which decreased the rash, but itching continues. Pt denies headache, dizziness, difficulty swallowing other than baseline, sob, n/v/d, abd pain, fever or loc. Pt tolerates PO food and fluid. Picture of rash uploaded to [employer]. BP:118/78, P:90, RR:18, SpO2:98% RA, T:97.9; Lung sounds: clear bilaterally, no stridor; Abdomen: soft, non-tender; Skin: pink, warm, dry with the exception of rash. [facility] orders Diphenhydramine 50mg IM. Diphenhydramine administered without incident. Red flags discussed. Pt/family has no further questions. ...................... ...................... ...................... ...................... ...................... ...................... ......... 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 Will place referral for UTI w/u.verified info: Susana PRADO Poker Room Manager Organization Information for [facility] [employer] Legal Name: [facility] Transportation Address: [address] [place] [address], Home Visits Nurse: Henry Monreal MD [place] No.: [id number] Poker Room Manager POC Test Results from [facility] - IS[facility]ELL Urine Dipstick (18:19:27) Urine leukocytes: 3+ MARCOS Urine nitrites: + NIT Urine urobilinogen: - URO Urine protein: 2+ PRO Urine pH: 6.0 pH Urine blood: trace BLO Urine specific gravity: 1.010 SG Urine ketones: - KET Urine bilirubin: - JOSI Urine glucose: - GLU ...................... ...................... ...................... ...................... ...................... ...................... ......... Poker Room Manager Note From [facility]: Miss Ulrich is a 64-year-old female with a history including but not limited to COPD, early dementia, heart disease and depression. She requested a visit today to address three days of dysuria and bilateral flank pain. Miss Ulrich tells me that she has approximately three to four urinary tract infections per year for most of her life, last was in February or March of this year. Miss Mar does not recall any previous antibiotics she is taken but denies any allergies to medicine. Miss Mar also denies any abdominal pain, vaginal discharge, fever, nausea, vomiting, diarrhea.Miss Ulrich presents awake and alert, and no acute distress. All vital signs are within normal limits and she is afebrile. Nonfocal Neuro exam. Normal gait. Lungs clear throughout auscultation. Benign abdominal exam. Right side CVA tenderness. No lower extremity edema. Her urine dip is notable for leukocytes, nitrates, protein and trace amounts of blood. The urine culture is sent to [facility]. I consultative the [facility] will send prescription to pharmacy. Patient's family states they will mixing picker tender the prescription today. I educated Mrs. Ulrich and her family about the prescription, the importance of oral hydration and regarding follow-up care with primary care and/or urology. Mr. Price is instructed to present to the emergency department for new or worsening severe symptoms such as chest pain, shortness of breath, high fever, altered mental status, fever, nausea, vomiting, diarrhea. Ms. Mar interfamily were given the opportunity to ask questions. [facility] Lab Orders: culture, urine: Performed ...................... ...................... ...................... ...................... ...................... ...................... ......... Disposition: Liban Lunsford MD [address] [facility],[address], [place], [address], [employer] 08/26/2024 20:23:43 OBGyn Episode No OBEpisode recorded.
== END 2024-11-19 14:13 | disposition home or self-care (01) ==
PROVIDERS: PCP Internal Medicine; Visit Provider Psychiatry & Neurology Neurology
DX: R41.3 Other amnesia (principal)
CPT/HCPCS: 99214; G2211

== ENCOUNTER → 2024-11-19 14:02 | Outpatient (BNVA) | payer OTHER, SELFPAY | PROVIDERS: PCP Internal Medicine; Visit Provider Psychiatry & Neurology Neurology | DX: J44.9 Chronic obstructive pulmonary disease, unspecified (principal); R30.0 Dysuria; R82.90 Unspecified abnormal findings in urine; R41.3 Other amnesia; G47.39 Other sleep apnea; Z99.81 Dependence on supplemental oxygen; Z87.891 Personal history of nicotine dependence | CPT/HCPCS: 96127; 99212 ==

== ENCOUNTER 2024-11-19 16:24 | Outpatient (AMB) | payer OTHER, SELFPAY ==
--- NOTE | 2024-11-19 16:25 | MHC.PC.OV ---
Intake Visit Reasons: lab results from 11/13 Tear Down Worker Required: Yes Tear Down Worker Language: Operating System Designer Name: Farideh Marquez MD Information Interpreted: non-clinical & clinical Accompanied by: Self / Same As Patient Allergies senna Adverse Reaction (Intermediate, Verified 11/19/24 16:37) Dizziness Medication List - Last Reconciled 11/19/24 by Farideh Marquez MD acetaminophen 325 mg PO QID PRN 30 days [adult diapers pull-ups As directed] albuterol sulfate 90 mcg/actuation 2 puffs inhalation Q4H PRN albuterol sulfate 2.5 mg (3 mL) inhalation Q6H PRN amitriptyline 100 mg PO BEDTIME benralizumab (Fasenra) 30 mg subcut Q8W blood pressure kit-extra large As directed bupropion HCl XL 300 mg PO DAILY carboxymethylcellulose sodium 0.5% 1 drp ophthalmic (eye) BID PRN 30 days cefpodoxime 200 mg PO Q12H cetirizine 10 mg PO DAILY PRN 90 days chair, wheel (Wheel chair) As directed cholecalciferol (vitamin D3) (Vitamin D3) 25 mcg PO DAILY clonazepam 1 mg PO DAILY commode (bedside commode) As directed cromolyn 4% 1 drp ophthalmic (eye) 6XD 30 days diclofenac sodium 1% 4 grams topical QID diphenhydramine HCl (Banophen) 25 mg PO BEDTIME PRN disposable gloves As directed docusate sodium (Colace) 100 mg PO BID [electric wheelchair As directed] ertapenem 1 g IV DAILY esomeprazole magnesium 40 mg PO DAILY [flushable wipes As directed] wpyqxhjdxjl-uldsjrjgt-fnzwjogx 200-62.5-25 mcg (Trelegy Ellipta) 1 inh inhalation DAILY 30 days gabapentin 400 mg PO TID ketorolac 10 mg PO TID PRN 5 days lactulose 10 grams (15 mL) PO BEDTIME PRN 30 days lamotrigine 200 mg PO DAILY levothyroxine 50 mcg PO DAILY@0630 lidocaine 5% (Lidoderm) 1 patch topical DAILY lidocaine HCl 4% (AsperFlex (lidocaine HCl)) use 1-2 inch ointment and apply up to 3 times daily on L shoulder topically; lubiprostone 24 mcg PO BID meloxicam 15 mg PO DAILY miscellaneous medical supply OVERBED TABLE nebulizers (AeroEclipse II Nebulizer) As directed oxygen-air delivery systems As directed pantoprazole 40 mg PO BID polyethylene glycol 3350 (Miralax) 17 grams PO BID PRN [POWER LIFT RECLINER As directed] quetiapine 50 - 100 mg PO BEDTIME [recliner with power buttons As directed] rosuvastatin 10 mg PO DAILY [shower seat As directed] simethicone 125 mg PO QID PRN tirzepatide (weight loss) (Zepbound) 2.5 mg (0.5 mL) subcut QWEEK 4 weeks topiramate 100 mg PO BID tramadol 50 mg PO Q6H PRN trazodone 100 mg PO BEDTIME PRN 90 days underpads (Bed Underpads) As directed [wheelchair As directed] [wheeled table with drawers As directed] zolpidem 10 mg PO BEDTIME PRN Tobacco use date assessed: 11/12/24 Fall risk assessment: No Falls in past year Last assessed Fall Risk: 11/19/24 Dental Screening Dental Screen Date: 11/12/24 HPI HPI Comments History of Present Illness Details Patient has tele health visit by phone complaining of urine color changing and urine smell. This started few days ago. Urinalysis was normal. No other acute complaint. I will repeat urinalysis. [facility] Medical History (Updated 11/19/24 @ 17:14 by Farideh Marquez MD) Polyarticular osteoarthritis Avascular necrosis of bones of both hips Dysuria Morbid obesity Avascular necrosis Physical exam Well woman exam Pre-op evaluation RSV (acute bronchiolitis due to respiratory syncytial virus) Chest pain Palpitations URI (upper respiratory infection) Snoring Encounter for screening for malignant neoplasm of colon Lumbar pain Urinary incontinence Low blood pressure Allergic reaction UTI (urinary tract infection) Palpitations Morbid obesity with BMI of 40.0-44.9, adult Epigastric abdominal pain Oxygen dependent Hypothyroidism Hypersomnia ILD (interstitial lung disease) ROB on CPAP History of ESBL E. coli infection Obstructive sleep apnea Moderate recurrent major depression Urinary retention Acute and chronic respiratory failure with hypoxia COVID-19 Lupus (systemic lupus erythematosus) Polyarthralgia Neck mass Eosinophilia Severe asthma Asthma-COPD overlap syndrome Trigger finger of right hand Recurrent UTI Tachycardia Obesity Lumbar degenerative disc disease GERD (gastroesophageal reflux disease) Hemangioma Hypovitaminosis D Bipolar 1 disorder Depression with anxiety Insomnia COPD (chronic obstructive pulmonary disease) Surgical History Hx of hand surgery Hx of cardiac catheterization History of esophagogastroduodenoscopy (EGD) History of cystocele History of colonoscopy History of shoulder surgery History of carpal tunnel release History of hysterectomy History of section History of tonsillectomy Family History Father Prostate cancer Mother No problems noted. Sister Nasopharyngeal cancer Social History Household Members: None Household Members Other:: 1 Housing: Apartment Do you presently have visiting nurse or other home services: Yes (Has MANAGER TRAINEE) Alcohol intake: never Comment: sleeping Patient Tobacco Use Status: Former Tobacco user Years Smoked: 14 +/- e-Cigarette/Vaping Use: Never Used Second Hand Smoke Exposure: No Advance Directives Date on File: 01/08/21 service: No Current occupational status: disabled Current occupation: right and left handed--- HAS MANAGER TRAINEE SERVICES Cognitive needs: Yes (walker ) Hearing needs: No Vision needs: Yes Female Reproductive History Menstrual Age of Menarche: 12 Questionnaire PHQ-9 Over the last 2 weeks, how often have you been bothered by any of the following problems? 1. Little interest or pleasure in doing things: several days 2. Feeling down, depressed, or hopeless: several days 3. Trouble falling or staying asleep, or sleeping too much: several days 4. Feeling tired or having little energy: several days 5. Poor appetite or overeating: not at all 6. Feeling bad about yourself - or that you are a failure or have let yourself or your family down: not at all 7. Trouble concentrating on things, such as reading the newspaper or watching television: not at all 8. Moving or speaking so slowly that other people could have noticed. Or the opposite - being so fidgety or restless that you have been moving around a lot more than usual: not at all 9. Thoughts that you would be better off or of hurting yourself in some way: not at all Total score: 4 Depression Screening Interpretation: Positive Depression Screening Follow-up: Existing condition and Follow-up Visit Requested Depression Screening Done: Yes 63970 - PHQ-9 Billing: Yes Source: Developed by Drs. Power Thornton, Master Munson and colleagues, with an educational sudhir from [employer]. Thrive Questionnaire Date Thrive assessed: 11/19/24 I am a: Patient What is your living situation today?: I have a steady place to live Within the past 12 months, did the food you bought not last and you didn't have the money to get more?: Never true Within the past 12 months, did you worry whether your food would run out before you got money to buy more?: Never true Do you have trouble paying for medicines?: No Do you have trouble getting transportation to medical appointments?: No Do you have trouble paying your heating and electricity bill?: No Do you have trouble taking care of your child, family member or friend?: No Do you have trouble with day-to-day activities such as bathing, preparing meals, shopping, managing finances, etc.?: No Are you currently unemployed and looking for a job?: No Are you interested in more education?: No Please select the resources that you would like help with: None Currently or been in a relationship where the following occur: No concerns reported THRIVE Score: 0 AUDIT C Alcohol Use Questionnaire (AUDIT-C) 1. How often do you have a drink containing alcohol?: Never Total Score: 0 DAO-7 AMB Questionnaire DAO-7 Date DOA - 7 assessed: 11/19/24 Feeling nervous, anxious, or on edge: 1 = Several days Not being able to stop or control worryin = Not at all Worrying too much about different things: 1 = Several days Trouble relaxin = Not at all Being so restless that it is hard to sit still: 0 = Not at all Becoming easily annoyed or irritable: 0 = Not at all Feeling afraid as if something awful might happen: 0 = Not at all Total DAO-7 score (0-4 normal; 5-9 mild; 10-14 moderate; 15-21 severe): 2 Source: Developed by Drs. Power Thornton, Master Munson and colleagues, with an educational sudhir from [employer]. DAO-7 Assessment Billing DAO-7 Assessment Tool: DAO-7 Assessment 35710 Review of Systems Const All systems reviewed & are unremarkable except as noted in HPI and below Card Denies chest pain at rest, Denies chest pain with activity, Denies edema, Denies irregular heart rhythm, Denies claudication, Denies dyspnea, Denies dyspnea on exertion, Denies orthopnea, Denies paroxysmal nocturnal dyspnea and Denies slow heart rate Resp Denies cough, Denies dyspnea and Denies dyspnea on exertion GI Denies abdominal pain, Denies change in bowel habits, Denies excessive flatus, Denies nausea and Denies vomiting Denies urinary incontinence, Denies urinary hesitancy and Reports urinary urgency Musc Denies abnormal gait, Denies atrophy, Denies deformity and Denies limited range of motion Skin/Breast Denies bleeding lesions, Denies changing lesions and Denies rash Neuro Denies abnormal gait, Denies behavioral changes and Denies lack of coordination Psych Denies behavioral changes Endo Denies cold intolerance Jr/Lymph Denies easy bleeding and Denies easy bruising Aller/Immun Denies urticaria Physical exam (Primary Care) Tobacco/Smoking Status: Tobacco use Status Tobacco use date assessed 11/12/24 11/19/24 16:29 Patient Tobacco Use Status Former Tobacco user 11/19/24 16:29 Tobacco use type 06/13/24 13:49 e-Cigarette/Vaping Use Never Used 11/19/24 16:29 PHQ-9: PHQ-9 Score PHQ-9: Total score 4 11/19/24 16:40 Depression Screening Interpretation: Positive Depression Screening Follow-up: Existing condition and Follow-up Visit Requested Thrive Assessment: Date of Thrive Assessment Date Thrive assessed 11/19/24 11/19/24 16:29 Currently or been in a relationship where the following occur: No concerns reported Resp Effort & Inspection: normal respiratory effort Auscultation: clear to auscultation bilaterally Cardio Jugular venous distension: no JVD Rate: regular rate Rhythm: regular rhythm Heart sounds: S1 normal heart sound present and S2 normal heart sound present Extrem General: Yes full ROM Telehealth Telehealth Telehealth Platform: Telephone Location of provider rendering services: practice address Location of patient: address on file Patient Identification confirmed using: Name, : Yes Telehealth method: voice only Patient verbally consented to treatment: Yes Patient verbally consented to billing insurance company: Yes Patient informed of any privacy concerns related to visit: Yes Minutes spent on Phone/Video with Pt.: 15 Coding Level of Care Code Tele Est Pt Level 3 (03268) Diagnoses Urine abnormality R82.90 Additional Codes DAO-7 Assessment Billing - DAO-7 Assessment Tool: DAO-7 Assessment 84925 ([id number]) PHQ-9 - 83710 - PHQ-9 Billing: Yes ([id number]) Time Spent (min) 15 Assessment & Plan Assessment & Plan (1) Urine abnormality: Code(s): R82.90 - Unspecified abnormal findings in urine Category: Medical Plan: Repeat urinalysis Orders: Orders UA CC w/rflx Micro + Cult Today R30.0 - Dysuria
== END 2024-11-19 17:57 | disposition home or self-care (01) ==
LOC: HO.HMCH 16:24
PROVIDERS: PCP Internal Medicine; Visit Provider Internal Medicine
DX: R82.90 Unspecified abnormal findings in urine (principal)

== ENCOUNTER → 2024-12-09 09:29 | Outpatient (BNVA) | payer OTHER, SELFPAY | PROVIDERS: PCP Internal Medicine; Visit Provider Internal Medicine Gastroenterology | DX: K31.84 Gastroparesis (principal); R82.90 Unspecified abnormal findings in urine | CPT/HCPCS: 99212 ==

== ENCOUNTER 2025-01-08 09:07 | Outpatient (REF) | payer OTHER, SELFPAY ==
--- NOTE | ~2025-01-08 | US_ITS ---
EXAMINATION: US ABDOMEN COMPLETE WITH LIVER ELASTOGRAPHY HISTORY: R82.90 - Unspecified abnormal findings in urine TECHNIQUE: Real-time grayscale ultrasound imaging of the abdomen was performed and images were reviewed. COMPARISON: Comparison is made with the prior examination dated 07/26/2024. FINDINGS: Liver: The right lobe of the liver measures 14.1 cm in size. The left lobe of the liver measures 12.4 cm in size. The liver demonstrates increased echotexture, consistent with steatosis. No focal mass or intrahepatic biliary ductal dilatation is identified. There is normal hepatopedal flow in the portal vein. Ultrasound elastography of the liver was performed with 10 separate measurements of the liver parenchyma with the patient in the supine position. Measurements were obtained approximately 2 cm below William's capsule and perpendicular to the capsule. Images are of satisfactory quality. The median shear wave velocity is 1.42 m/s. The interquartile range/median (IQR/median) is 0.07. Gallbladder and biliary tree: The gallbladder is unremarkable, without evidence of calculi, wall thickening, or pericholecystic fluid. There is no sonographic [place] sign. The common bile duct is normal in caliber measuring 3 mm. Kidneys: The right kidney measures 11.2 cm in length. The left kidney measures 12.4 cm in length. The kidneys are unremarkable, without evidence of masses, hydronephrosis, or calculi. Pancreas: The pancreatic head, neck, and body are unremarkable. The pancreatic tail is obscured by bowel gas. Spleen: The spleen is normal in size and contour, measuring 9.3 cm in length. Abdominal aorta and inferior vena cava: The visualized portions of the abdominal aorta and inferior vena cava are normal in caliber. There is no free fluid in the abdomen. US/US abdomen comp w elastography IMPRESSION: Hepatic steatosis. The median shear wave velocity in the liver is 1.42 m/s, corresponding to a median liver stiffness of 6.18 kPa. The IQR/median value is 0.07. This is indicative of a quality data set. Findings are indicative of a low elastography value which rules out advanced chronic liver disease in asymptomatic patients. REFERENCE: Society of Radiologists in Ultrasound Liver Stiffness Thresholds (2020): LIVER STIFFNESS THRESHOLDS: *Shear wave velocity less than 1.3 m/s (Liver Stiffness equal or less than 5 kPa): High probability of being normal. *Shear wave velocity less than 1.7 m/s (Liver Stiffness less than 9 kPa): In the absence of other known clinical signs, rules out compensated advanced chronic liver disease. *Shear wave velocity between 1.7-2.1 m/s (Liver Stiffness 9-13 kPa): Suggestive of compensated advanced chronic liver disease but need further test for confirmation. *Shear wave velocity between 2.1-2.4 m/s (Liver Stiffness 13-17 kPa): Rules in compensated advanced chronic liver disease. *Shear wave velocity greater than 2.4 m/s (Liver Stiffness over 17 kPa): Suggestive of clinically significant portal hypertension. QUALITY OF DATA SET: *IQR/Median value equal or less than 0.15 implies a quality data set. *IQR/Median value over 0.15 implies a poor quality data set. SIGNIFICANT CHANGE FROM PRIOR EXAM: Significant change if liver stiffness measurement is 10% or greater from prior exam. OTHER CONSIDERATIONS: The stage of liver fibrosis may be overestimated in the setting of acute hepatitis, liver inflammation, elevated liver function tests, hepatic vascular congestion, obstructive cholestasis, non-fasting state, and infiltrative diseases such as amyloidosis and lymphoma. In some patients with NAFLD, the liver stiffness thresholds for compensated advanced chronic liver disease may be lower. In causes other than viral hepatitis and NAFLD, liver stiffness thresholds are not well established. Electronically signed by: Power Nunez MD 01/08/2025 09:57 AM EDT
--- OUTSIDE RECORDS SUMMARY | 2025-01-08 09:44 | XMS_ITS ---
Author Organization [facility] Care Team Providers Care Permit Coordinator Name Role Phone Maryjo Castorena Unavailable Unavailable Rosio Mckeon Unavailable Unavailable María Perez Unavailable Unavailable Gris Allen Unavailable Unavailable Fartun Gamboa Unavailable Unavailable Bart CORREA, Shaunna Fajardo Unavailable Unavailable Tatyana Diaz Unavailable Unavailable Nneka De Unavailable Unavailable Maingi, Shadrack Unavailable Unavailable Allergies and adverse reactions No Known Allergies Care Team Name Role Address Phone Organization Dates María Perez PCP [address] [place] [address], [facility], [facility] (Office): : [facility] 02/23/2021 - 10/04/2021 Maryjo Castorena Attending Physician [address] [place] [address], [place], [address], [facility] (Office): : [phone] [facility] 02/23/2021 - 10/04/2021 Rosio [place], [address], [facility] (Office): : [facility] 02/23/2021 - 10/04/2021 Gris Allen Attending Physician [address] [place] [address], [place] [address], [facility] (Office): : [facility] 02/23/2021 - 10/04/2021 Fartun Gamboa Attending Physician [address] [facility] [address], [place], [address], [facility] (Office): : [phone] [facility] 02/23/2021 - 10/04/2021 Shaunna Arriaga NP Attending Physician [address] [place] [address] 1, [place] [address], [facility] (Office): [facility] 02/23/2021 - 10/04/2021 Tatyana Diaz Attending Physician [address] [place] [address], [place], [place], [id number] [place] [address] (Office): : [facility] 02/23/2021 - 10/04/2021 Nneka De Attending Physician [address] [place] [address] 1, [place], [address], [facility] (Office): : [phone] [facility] 02/23/2021 - 10/04/2021 Hong Shepherd Attending Physician [address] [place] [address], [place], [address], [facility] (Office): : [facility] 02/23/2021 - 10/04/2021 Goals Section Description Status Target Date Gracy will be free from dis comfort or adverse reactions related to antidepressant therapy through the review date. Active Gracy will be free from s/s x of hypothyroidism through the review date. Active 12/15/2021 Gracy will be free of sympt oms of dehydration and maintain moist mucous membranes, good skin turgor. Active 12/15/2021 Gracy will exhibit indicato rs of depression, anxiety or sad mood less than daily by review date. Active 12/15/2021 Gracy will have a normal nataliya wel movement at least every 3 days through the review date. Active 12/15/2021 Gracy will have no complica tions related to diabetes through the review date. Active 12/15/2021 Gracy will have no s/sx of poor oxygen absorption through the review date. Active 12/15/2021 Gracy will maintain current level of function through the review date. Active 12/15/2021 Gracy will maintain or deve lop clean and intact skin by the review date. Active 12/15/2021 Gracy will not have an inte rruption in normal activities due to pain through the review date. Active 12/15/2021 Gracy will not have falls through the review da te. Active 12/15/2021 Gracy will participate in d ischarge planning meetings prior to discharge Active 12/15/2021 Gracy's advanced directives will be honored & followed per her or her legal surrogates specifications Active 12/15/2021 My PASRR matches my SNF plac ement and staff will assist me accordingly Active 12/15/2021 My behaviors will not effect my safety or the safety of others through the next review period. Active 12/15/2021 Resident will be followed an d monitored by Psych services as needed. Active 12/15/2021 We will be able to communica te with each other during activities and 1:1 visits through speaking or other means through the next review date Active 12/15/2021 Immunizations Immunization Status Vaccine Details Vaccine Code CodeSystem Date Notes PPSV23 completed pneumococcal polysaccharide vaccine, 23 valent 33 CVX created date: 09/07/2021 administere d date: 08/05/2019 Covid-19 Moderna Vaccine dose #1 - CVX 207 completed SARS-COV-2 (COVID-19) vaccine, mRNA, spike protein, LNP, preservative free, 100 mcg/0.5mL dose or 50 mcg/0.25mL dose 207 CVX created date: 09/07/2021 administere d date: 01/07/2021 Covid-19 Vaccine (Pfizer CVX 208) dose #3 (BOOSTER) new SARS-COV-2 (COVID-19) vaccine, mRNA, spike protein, LNP, preservative free, 30 mcg/0.3mL dose 208 CVX created date: 09/30/2021 consent date: 09/30/2021 Mental Status Section Date Assessment Total Score Description 10/04/2021 BIMS 15 cognitively int act CAM 0 No delirium ind icated PHQ-9 01 minimal depress ion 09/01/2021 BIMS 13 cognitively int act CAM 0 No delirium ind icated PHQ-9 00 Problems Problem # Description Date of onset Resolved Date Code CodeSystem Concern Status 1 DYSPHAGIA, ORAL PHASE [address] active 2 DYSPHAGIA, PHARYNGOESOPHAGEAL PHASE [address] active 3 PERSONAL HISTORY OF COVID-[address] active 4 ACUTE PAIN DUE TO TRAUMA [address] active 5 ADJUSTMENT INSOMNIA [address] active 6 ANXIETY DISORDER, UNSPECIFIED [address] active 7 UNSPECIFIED ASTHMA, UNCOMPLICATED [address] active 8 ACUTE AND CHRONIC RESPIRATORY FAILURE WITH HYPOXIA [id number] active 9 BIPOLAR DISORDER, CURRENT EPISODE DEPRESSED, MILD OR MODERATE SEVERITY, UNSPECIFIED [address] active 10 CHRONIC OBSTRUCTIVE PULMONARY DISEASE WITH (ACUTE) EXACERBATION [address] active 11 COVID-19 021 05/31/[address] completed 12 DIABETES MELLITUS DUE TO UNDERLYING CONDITION WITH DIABETIC POLYNEUROPATHY [address] active 13 DISCOID LUPUS ERYTHEMATOSUS [address] active 14 GASTRO-ESOPHAGEAL REFLUX DISEASE WITHOUT ESOPHAGITIS [address] active 15 HYPOTHYROIDISM, UNSPECIFIED [address] active 16 MAJOR DEPRESSIVE DISORDER, RECURRENT, UNSPECIFIED [address] active 17 PNEUMONIA, UNSPECIFIED ORGANISM [address] active 18 MUSCLE WEAKNESS (GENERALIZED) [address] active 19 OTHER ABNORMALITIES OF GAIT AND MOBILITY [address] active 20 UNSTEADINESS ON FEET [address] active [address] WE[address] active Reason for Referral No Reasons for Referral Entered Social History Social History Observation Description Start Date End Date Code Code System Current Smoking Status Tobacco smoking consumption unknown 278290535 SNOMED CT Sex Assigned At Female 1960 [address]-9 [facility] Vital Signs Code Code System Vitals Name Values and Units Timing Information 9279-1 [facility] Respiratory Rate Value=20.0 Units=/m in 10/04/2021 8462-4 [facility] Blood Pressure-Diastolic Value=74 Un its=mmHg 10/04/2021 8480-6 [facility] Blood Pressure-Systolic Drvtn=046 Un its=mmHg 10/04/2021 8310-5 [facility] Body Temperature Value=97.4 Units=?? F 10/04/2021 8867-4 [facility] Heart rate Value=88.0 Units=/min 03/2021 80261-3 [facility] O2 % dC Oximetry Value=97.0 Units= % 10/04/2021 39141-5 [facility] Pain Level Value=0.0 10/04/2021 2339-0 [facility] Blood Sugar Value=90.0 Units=mg/dL 10/03/2021 61784-3 [facility] Weight Rvpag=912.0 Units=Lbs 12/2020 8302-2 [facility] Height Value=61.0 Units=Inches 01/09/2021
--- OUTSIDE RECORDS SUMMARY | 2025-01-08 09:44 | XMS_ITS ---
Author Organization [facility] Care Team Providers Care Certified Massage Therapist Name Role Phone Mahi Cartagena Unavailable Unavailable Anton Stoddard Unavailable Unavailable Aziza Zaldivar Unavailable Unavailable Alisia Louis Unavailable Unavailable Nela, Evangelina Unavailable Unavailable Griselda Mcclure Unavailable Unavailable Allergies and adverse reactions Code CodeSystem Substance Reaction Severity StartDate Concern Status unknown analgesi a given antihistamin Unknown 05/16/2020 active Care Team Name Role Address Phone Organization Dates Anton Stoddard PCP [address], [address], [place] (Office): : [facility] [place] [facility] 05/16/2020 - 08/03/2020 Mahi Cartagena Attending Physician [address], [place] (Office): [facility] [place] 05/16/2020 - 08/03/2020 Aziza Zaldivar Attending Physician [address] [place] [address], [address], [place] (Office): : [facility] [place] 05/16/2020 - 08/03/2020 Alisia Louis Attending Physician [facility] [address] [facility], [place], [address], [place] (Office): : [facility] [place] 05/16/2020 - 08/03/2020 Evangelina Rondon Attending Physician [address], [place], [address], [place] (Office): [facility] [place] [facility] 05/16/2020 - 08/03/2020 Griselda Mcclure Attending Physician [address] [facility] [address], [place], [address], [place] (Office): : [facility] [place] 05/16/2020 - 08/03/2020 Immunizations Immunization Status Vaccine Details Vaccine Code CodeSystem Date Notes Influenza new Influenza, split virus, trivalent, injectable, contains preservative 141 CVX created date: 07/13/2020 consent date: 07/13/2020 TB 2 Step Mantoux Skin Test new tuberculin skin test; unspecified formulation 98 CVX created date: 05/16/2020 consent date: 08/13/2021 Educated by Holly Cortes LVN on 05/16/2020 planted on R arm. circled and timed for 1728 on April TB 2 Step Mantoux Skin Test completed tuberculin skin test; unspecified formulation lotNumber: [id number] expiry: 04/08/2022 Mfg: [employer] Given 0.1 ml Right Forearm intradermally Step 2 of Multi-step with next step required 98 CVX created date: 05/25/2020 consent date: 05/24/2020 administer ed date: 05/24/2020 Mental Status Section Date Assessment Total Score Description 08/03/2020 BIMS 15 cognitively int act CAM 0 No delirium ind icated PHQ-9 00 05/23/2020 BIMS 12 moderate cognit edith impairment CAM 0 No delirium ind icated PHQ-9 00 Problems Problem # Description Date of onset Resolved Date Code CodeSystem Concern Status 1 ACUTE RESPIRATORY FAILURE WITH HYPOXIA 05/16/[address] active 2 BILATERAL PRIMARY OSTEOARTHRITIS OF KNEE 05/16/[address] active 3 CHRONIC OBSTRUCTIVE PULMONARY DISEASE, UNSPECIFIED 05/16/[address] active 4 MAJOR DEPRESSIVE DISORDER, RECURRENT, UNSPECIFIED 05/16/[address] active 5 OBESITY, UNSPECIFIED 05/16/[address] active 6 OBSTRUCTIVE SLEEP APNEA (ADULT) (PEDIATRIC) 05/16/[address] active 7 OTHER BIPOLAR DISORDER 05/16/[address] active 8 OTHER INSOMNIA 05/16/[address] ac tive 9 OTHER INTERVERTEBRAL DISC DEGENERATION, LUMBAR REGION 05/16/[address] active 10 PAIN IN UNSPECIFIED JOINT 05/16/[address] active 11 TACHYCARDIA, UNSPECIFIED 05/16/[address] active 12 TYPE 1 DIABETES MELLITUS WITHOUT COMPLICATIONS 05/16/[address] active 13 URINARY TRACT INFECTION, SITE NOT SPECIFIED 05/16/[address] active Reason for Referral No Reasons for Referral Entered Social History Social History Observation Description Start Date End Date Code Code System Current Smoking Status Tobacco smoking consumption unknown 483705041 SNOMED CT Sex Assigned At Female 1960 [address]-0 [facility] Vital Signs Code Code System Vitals Name Values and Units Timing Information 9279-1 [facility] Respiratory Rate Value=20.0 Units=/m in 08/03/2020 8462-4 [facility] Blood Pressure-Diastolic Value=74 Un its=mmHg 08/03/2020 8480-6 [facility] Blood Pressure-Systolic Wcjfo=236 Un its=mmHg 08/03/2020 8310-5 [facility] Body Temperature Value=97.9 Units=?? F 08/03/2020 8867-4 [facility] Heart rate Value=90.0 Units=/min 02/2020 42831-7 [facility] O2 % BldC Oximetry Value=98.0 Units= % 08/03/2020 61680-3 [facility] Pain Level Value=0.0 08/03/2020 82806-3 [facility] Weight Lwyxd=733.0 Units=Lbs 2339-0 [facility] Blood Sugar Hwpqh=104.0 Units=mg/dL 05/27/2020 8302-2 [facility] Height Value=61.0 Units=Inches 05/16/2020
--- OUTSIDE RECORDS SUMMARY | 2025-01-08 09:45 | XMS_ITS | Data Portability ---
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 [email or web address] Not available 08/26/2024 20:23:21 Plan of Treatment Reminders Order Date Submit Date Provider Last Modified By Organization Details Last Modified Time Details Appointments None recorded. Lab culture, urine 2023 MAGDY [facility] (Centralized Electronic Ordering - All Locations), Patient Can Go To The Location Of Their Choice, [facility][note 3] 10:06:26 urinalysis, dipstick 2023 [email or web address] [facility] [address] [place] [address], [phone], 20:23:24 urinalysis, dipstick 2021 022 [email or web address] [facility] [address] [place] [address], [phone], 11:28:27 unlisted lab - urinalysis w/reflex culture 2021 022 ELYSIAN [facility] (Centralized Electronic Ordering - All Locations), Patient Can Go To The Location Of Their Choice, [facility][note 3] 19:05:47 Referral None recorded. Procedures None recorded. Surgeries None recorded. Imaging None recorded. Medication Orders cefpodoxime 200 mg tablet 2023 024 [id number], [address] [facility] [place] [place], [address], 4 18:25:11 prednisone 50 mg tablet 2021 022 [id number], [address] [place], [address], 2 11:38:43 prednisone 20 mg tablet 2021 022 [email or web address] Not available 11:55:52 Macrobid 100 mg capsule 2021 [id number], [address] [place], [address], 11:32:24 Pyridium 100 mg tablet 2021 [id number], [address] [place], [address], 11:32:24 Patient TargetsNo targets recorded. Patient InstructionsNo instructions recorded. Reason for Referral None Reported. Results Created Date Observation Date Name Description Value Unit Range Abnormal Flag Note LastModifiedBy Organization Detail LastModifiedTime 02/20/2002/19/2022 UA W/REF MARIE CULTU RE appear/color LIGHT YELLO W CLEAR Not Available [facility] (Centralized Electronic Ordering - All Locations) Patient Can Go To The Location Of Their Choice, 02/19/2022 19:05:46 02/20/2002/19/2022 UA W/REF MARIE CULTU RE sp. gravity 1.009 (1.002 -1.030 ) Not Available [facility] (Centralized Electronic Ordering - All Locations) Patient Can Go To The Location Of Their Choice, 02/19/2022 19:05:46 02/20/2002/19/2022 UA W/REF MARIE CULTU RE urine pH 7.5 (5.0-8 .0) Not Available [facility] (Centralized Electronic Ordering - All Locations) Patient Can Go To The Location Of Their Choice, 02/19/2022 19:05:46 02/20/2002/19/2022 UA W/REF MARIE CULTU RE urine albumin NEGATI VE (neg) Not Available [facility] (Centralized Electronic Ordering - All Locations) Patient Can Go To The Location Of Their Choice, 02/19/2022 19:05:46 02/20/2002/19/2022 UA W/REF MARIE CULTU RE urine glucose NEGATI VE (neg) Not Available [facility] (Centralized Electronic Ordering - All Locations) Patient Can Go To The Location Of Their Choice, 02/19/2022 19:05:46 02/20/2002/19/2022 UA W/REF MARIE CULTU RE urine ketones NEGATI VE (neg) Not Available [facility] (Centralized Electronic Ordering - All Locations) Patient Can Go To The Location Of Their Choice, [id number] 02/19/2022 19:05:46 02/20/20 22 02/19/2022 UA W/REF MARIE CULTU RE urine bilirubin NEGATI VE (neg) Not Available [facility] (Centralized Electronic Ordering - All Locations) Patient Can Go To The Location Of Their Choice, [id number] 02/19/2022 19:05:46 02/20/20 22 02/19/2022 UA W/REF MARIE CULTU RE urine hemoglobin NEGATI VE (neg) Not Available [facility] (Centralized Electronic Ordering - All Locations) Patient Can Go To The Location Of Their Choice, [id number] 02/19/2022 19:05:46 02/20/2002/19/2022 UA W/REF MARIE CULTU RE urine nitrite NEGATI VE (neg) Not Available [facility] (Centralized Electronic Ordering - All Locations) Patient Can Go To The Location Of Their Choice, [id number] 02/19/2022 19:05:46 02/20/2002/19/2022 UA W/REF MARIE CULTU RE urine leukocyte 2+ (neg) abnormal Not Available [facility] ([facility] Ordering - All Locations) Patient Can Go To The Location Of Their Choice, [id number] 02/19/2022 19:05:46 02/20/2002/19/2022 UA W/REF MARIE CULTU RE urobilinogen NORMAL mg/dL (norm) Not Available [facility] ([facility] Ordering - All Locations) Patient Can Go To The Location Of Their Choice, [id number] 02/19/2022 19:05:46 02/20/2002/19/2022 UA W/REF MARIE CULTU RE urine WBCs 17 /hpf (0-5) high Not Available [facility] (Centralized Electronic Ordering - All Locations) Patient Can Go To The Location Of Their Choice, [id number] 02/19/2022 19:05:46 02/20/2002/19/2022 UA W/REF MARIE CULTU RE urine RBCs 1 /hpf (0-3) Not Available [facility] (Centralized Electronic Ordering - All Locations) Patient Can Go To The Location Of Their Choice, 02/19/2022 19:05:46 02/20/2002/19/2022 UA W/REF MARIE CULTU RE bacteria SLIGHT hpf (neg) abnormal Not Available [facility] (Centralized Electronic Ordering - All Locations) Patient Can Go To The Location Of Their Choice, 02/19/2022 19:05:46 02/20/2002/19/2022 UA W/REF MARIE CULTU RE mucus SLIGHT /lpf Not Available [facility] (Centralized Electronic Ordering - All Locations) Patient Can Go To The Location Of Their Choice, 02/19/2022 19:05:46 02/20/2002/19/2022 UA W/REF MARIE CULTU RE squamous epith 1 /hpf (0-8) Not Available [facility] ([facility] Ordering - All Locations) Patient Can Go To The Location Of Their Choice, 02/19/2022 19:05:46 02/20/2002/19/2022 UA W/REF MARIE CULTU RE transitional epith <1 /hpf Not Available [facility] (Central[facility] Ordering - All Locations) Patient Can Go To The Location Of Their Choice, 02/19/2022 19:05:46 02/20/2002/19/2022 UA W/REF MARIE CULTU RE renal epith <1 /hpf Not Available [facility] ([facility] Ordering - All Locations) Patient Can Go To The Location Of Their Choice, 02/19/2022 19:05:46 02/20/2002/19/2022 UA W/REF MARIE CULTU RE clarity CLEAR (clear ) Not Available [facility] (Centralized Electronic Ordering - All Locations) Patient Can Go To The Location Of Their Choice, 02/19/2022 19:05:46 02/20/2002/19/2022 UA W/REF MARIE CULTU RE culture indication CULTUR E INDICA MIGDALIA Not Available [facility] (Centralized Electronic Ordering - All Locations) Patient Can Go To The Location Of Their Choice, 02/19/2022 19:05:46 02/20/2002/19/2022 URINE CULTU RE special requests NONE Reflex ed from [id number] Not Available [facility] (Centralized Electronic Ordering - All Locations) Patient Can Go To The Location Of Their Choice, [id number] 02/21/2022 09:59:20 02/20/2002/20/2022 URINE CULTU RE specimen description URINE Not Available [facility] ([facility] Order[facility] - All Locations) Patient Can Go To The Location Of Their Choice, [id number] 02/21/2022 09:59:20 02/20/20 22 02/21/2022 URINE CULTU RE culture Mixed bacter ial lizeth, indica tive of urogen ital contam inatio n. Not Available [facility] (Centralized Electronic Ordering - All Locations) Patient Can Go To The Location Of Their Choice, [id number] 02/21/2022 09:59:20 02/20/2002/21/2022 URINE CULTU RE report status FINAL 2021 Not Available [facility] (Centralized Electronic Ordering - All Locations) Patient Can Go To The Location Of Their Choice, [id number] 02/21/2022 09:59:20 02/20/2002/19/2022 urina lysis , dipst ick Leukocytes ++ Not Available Main - [facility] [address] [place] [address], [phone], 02/19/2022 11:27:23 02/20/20 22 02/19/2022 urina lysis , dipst ick Nitrite positi ve Not Available Main - [facility] [address] [place] [address], [phone], 02/19/2022 11:27:23 02/20/20 22 02/19/2022 urina lysis , dipst ick Ketone 1+ Not Available Main - [facility] [address] [place] [address], [phone], 02/19/2022 11:27:23 08/26/2008/29/2024 URINE CULTU RE,CO MPREH ENSIV E urine culture,comp rehensive Final report Not Available [facility] ([facility]) [address], [place], [place], [address], 08/29/2024 10:06:37 08/26/2008/29/2024 URINE CULTU RE,CO MPREH ENSIV E result 1 COMMEN T No growt h in 36 - 48 hours . Not Available [facility] ([facility]) [address], [place], [address], 08/29/2024 10:06:37 Result Notes None recorded. Medical [...] /min 99 % 99 % 97.9 [degF] 54254.0 56 g 154.94 cm 20 /min 154.94 cm 99 % 99 % 20 /min 90 /min 97.9 [degF] 99062.0 56 g 118 mm[Hg] 78 mm[Hg] 118 mm[Hg] 78 mm[Hg] Not Available [facility] - [facility] 2 18:28:00 Date Recorded Body temperature Heart rate Respiratory rate Oxygen saturation Oxygen saturation in Arterial blood by Pulse oximetry Systolic blood pressure Diastolic blood pressure Provider Name and Address Organization Details Last Updated DateTime 2 98.6 [degF] 95 /min 20 /min 97 % 97 % 120 mm[Hg] 70 mm[Hg] Eden Coronado MD [address] [place] [address],[address], [place], [phone] [place] [address] [employer] [facility] 2 11:36:33 Date Recorded Respiratory rate Heart rate Oxygen saturation Oxygen saturation in Arterial blood by Pulse oximetry Body temperature Systolic blood pressure Diastolic blood pressure Provider Name and Address Organization Details Last Updated DateTime 2 16 /min 89 /min 99 % 99 % 98.5 [degF] 113 mm[Hg] 76 mm[Hg] Not Available [employer] [facility] [employer] [facility] [employer] 2 12:14:07 Social History None recorded. Functional Status None recorded. Mental Status None recorded. Family History Nothing Reported. Medical History No medical history recorded. Gynecological HistoryNo gynecological history recorded. Obstetrics History GPAL:G 0 P 0 0 0 0 Past Encounters Encounter ID Performer Location Encounter Start Date Encounter Closed Date Diagnosis/Indication Diagnosis SNOMED-CT Code Diagnosis ICD10 Code Diagnosis Note [id number] Surya Acevedo MD [address] [phone] 02/18/2022 14:31:32 07/07/2022 13:35:00 Periorbital edema 06505213 H05.229 62yo woman evaluated for months of [...] changes ot therapy. [id number] [facility] [address] [place] [phone] 02/19/2022 09:58:40 07/05/2022 15:20:25 Dysuria 42456174 R30.9 Pt with hx prior UTIs (though [...] assessment and plan as documented by the fashion coordinator. I provided real time medical direction for this encounter and was immediatel y available to provide additional phone based assistance as needed. Periorbital edema 574431 00 H05.229 Symptoms persist since last [facility] visit, continuing on allergy tx. urine dip today w/o protein to suggest nephrotic syndomre, recommend PCP f/up for allergy testing/tx . Urine dip also w/ trace ketones but no hx diabetes and normal PO intake, likely contaminat ion from adjacent test strip. F/up formal urinalysis [id number] Kenneth Castellon MD Main - [facility] [address] [place] [phone] 03/10/2022 11:36:32 07/06/2022 14:33:02 Pruritic rash [id number] L28.2 [id number] Braydon Recio MD Main - [facility] [address] [place] [phone] 07/18/2022 17:25:40 07/22/2022 13:31:39 Pruritic rash [id number] L28.2 [id number] Gerardo Lunsford MD Main - [facility] [address] [place] [phone] 08/26/2024 18:22:09 08/26/2024 21:57:44 Acute urinary tract infection [id number] N39.0 Health Concerns Section Related Observation LastModified by Organization Detai ls LastModified Time None Recorded Concern Status LastModified by Organization Details LastModified Time None Recorded Advance Directives Directive None Recorded Payers Encounter Date Sequence Insurance Name Policy Number Policy Burnham Covered Member ID Burnham Member ID Guarantor Name 02/18/[address] [facility] - DOS PRIOR TO 2023 - DUAL ELIGIBLE (MEDICARE REPLACEMENT/ADV ANTAGE - HMO) Gracy Mar Mead [id number] Gracy Mar Mead 02/19/[address] [facility] - DOS PRIOR TO 2023 - DUAL ELIGIBLE (MEDICARE REPLACEMENT/ADV ANTAGE - HMO) Gracy Mar Mead [id number] Gracy Mar Mead 03/10/[address] [facility] - DOS PRIOR TO 2023 - DUAL ELIGIBLE (MEDICARE REPLACEMENT/ADV ANTAGE - HMO) Gracy Mar Mead [id number] Gracy Mar Mead 07/18/[address] [facility] - DOS PRIOR TO 2023 - DUAL ELIGIBLE (MEDICARE REPLACEMENT/ADV ANTAGE - HMO) Gracy Mar Mead [id number] Gracy Mar Mead 08/26/[address] [facility] - DOS ON OR AFTER 2023 - DUAL ELIGIBLE - [employer] AND ONE CARE (MEDICARE REPLACEMENT/ADV ANTAGE - HMO) Gracy Mar Mead [id number] Gracy Mar Mead Notes Date Note Type Note Provider Name and Address Organization Details Recorded Time 02/18/2022 text/html Member c/o swollen/itchy eyes w congestion, unable to see and open eyes. Member was in the hospital for over a month and they adjusted eye drops during admission with no help with symptoms . Member was in the hospital for [facility] and was d/c in SEP . Dynamite Shooter Visit Summarydispatched to the above location for [...] and are as documented. picture sent to [facility]. [facility] contacted and states to keep using her prescribed eye drops and that she should follow up with her doctor for further treatment. at this time red flags explained to the patient, patient advised to seek treatment if any of the red flags arise. Surya Acevedo MD [address] [facility],[address], [place], [phone], [employer] 02/18/2022 14:35:29 02/19/2022 text/html Per request: Mem maricruz seen today 02/18 for itchy/swollen eyes, no other concerns were voiced during visit.Member called back in stating she needed another MIH for tomorrow 02/19.Member was treated for a UTI 1.5 weeks ago with an ABX. About 4 days ago member states she started with urinary symptoms again. Has c/o pain and burning with urination, urine is dark and concentrated with an odor. Has chill but denies fever. Dynamite Shooter documentation:Patient is a 62 year old female [...] Leukocytes, Nitrates, PH, KET. Urine brought to [facility] for culture. Vital signs obtained and all within normal limits. Red flags discussed. Consulted with Dr. Coronado. Patient is to follow up with PCP on Monday regarding her signs, symptoms and todays visit. Dr. Coronado prescribed the patient Macrobid and Pyridium, prescriptions sent to patients pharmacy for pickup. Patient to contact PCP regarding urine culture results. Contact [facility] for a re-visit if symptoms persist. Contact 911 for any discussed red flags or other emergencies. Eden Coronado MD [address] [facility],[address], [place], [address], [employer] 02/19/2022 16:34:18 03/10/2022 text/html HPI: mbr with complaints of wide spread/painful rash, states watery eyes, no open wounds, pustules reported. denies any SOB/N/V or difficulty swallowing. requesting [facility] vist. Protocol Used: Rash or Redness - Widespread Protocol-Based Disposition: Consider [facility], [facility] Community Clin[facility], or PCP visit within 24 hours Positive Triage Question: * SEVERE itching (i.e., interferes with sleep, normal activities or school) Negative Triage Questions: * Bloody crusts on lips or sores in mouth * Face becomes swollen * Sore throat ...................... ...................... ...................... ...................... ...................... ...................... ......... Dynamite Shooter Note: dispatched to the above location for a female patient with a rash and itchy eyes. upon arrival patient was located sitting in a chair in her home. patient is alert and oriented X4. patient is Tanzanian speaking with little Sudanese. family on scene to interpret. at this [...] time vitals obtained and are as documented. [facility] contacted and states to give 40 MG [...] ...................... ......... Disposition: Fulfilled Kenneth Castellon MD [address] [place] [address],[address], [place], [phone], [employer] [address] 03/11/2022 10:35:01 07/18/2022 text/html CRC Nursing Assessment: Reason For Request: PMH: fibromyalgia [...] ...................... ...................... ...................... ...................... ...................... ...................... ......... Dynamite Shooter Note: Sent to a call for a pt complaining of a rash on face and chest. SC8 arrives on scene, pt is alert and oriented. Airway is patent. 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 Pt was prescribed ASA daily on 07/14, [...] and fluid. Picture of rash uploaded to [employer]. BP:118/78, P:90, RR:18, SpO2:98% RA, T:97.9; Lung sounds: clear bilaterally, no stridor; Abdomen: soft, non-tender; Skin: pink, warm, dry with the exception of rash. [facility] orders Diphenhydramine 50mg IM. Diphenhydramine administered without incident. Red flags discussed. Pt/family has no further questions. ...................... ...................... ...................... ...................... ...................... ...................... ......... 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 Will place referral for UTI w/u.verified info: Susana PRADO Dynamite Shooter Organization Information for Pedro Ferrer Plumbr ISABELL Infer Legal Name: [facility] Address: [address] [place] [address], [place] [address], [employer] Beveler: Henry Monreal MD [facility] No.: [id number] Dynamite Shooter POC Test Results from Benijoselyn Pedro Linn ISABELL Urine Dipstick (18:19:27) Urine leukocytes: 3+ MARCOS Urine nitrites: + NIT Urine urobilinogen: - URO Urine protein: 2+ PRO Urine pH: 6.0 pH Urine blood: trace BLO Urine specific gravity: 1.010 SG Urine ketones: - KET Urine bilirubin: - JOSI Urine glucose: - GLU ...................... ...................... ...................... ...................... ...................... ...................... ......... Dynamite Shooter Note From Nabil Pedro: Miss Ulrich is a 64-year-old female with a history including but not limited to COPD, early dementia, heart disease and depression. She requested a visit today to address three days of dysuria and bilateral flank pain. Miss Ulrich tells me that she has approximately three to four urinary tract infections per year for most of her life, last was in February or Rajni of this year. Miss Mar does not [...] is sent to [facility]. I consultative the [facility] will send prescription to pharmacy. 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 I educated Mrs. Ulrich [...] were given the opportunity to ask questions. [facility] Lab Orders: culture, urine: Performed ...................... ...................... ...................... ...................... ...................... ...................... ......... Disposition: Fulfilled Gerardo Lunsford MD [address] [facility],[address], [place], [address], [address] 08/26/2024 20:23:43 OBGyn Episode No OBEpisode recorded.
== END 2025-01-08 09:08 | disposition home or self-care (01) ==
LOC: HO.US 09:07
PROVIDERS: PCP Internal Medicine; Visit Provider Internal Medicine Gastroenterology
DX: K31.84 Gastroparesis (principal); R82.90 Unspecified abnormal findings in urine
CPT/HCPCS: 76700; 76981

== ENCOUNTER → 2025-01-08 09:08 | Outpatient (BNV) | payer OTHER, SELFPAY | PROVIDERS: PCP Internal Medicine; Visit Provider Radiology Diagnostic Radiology | DX: K76.0 Fatty (change of) liver, not elsewhere classified (principal) | CPT/HCPCS: 76700 ==

== ENCOUNTER 2025-01-14 13:52 | Outpatient (AMB) | payer OTHER, SELFPAY ==
--- NOTE | 2025-01-14 13:56 | MHC.OFFVIS ---
Vital Signs 01/14/25 13:58 Height 5 ft 1 in Weight 228 lb 2.855 oz BMI 43.1 BP 124/88 Blood Pressure Location Rt brachial Position Sitting Pulse 112 H Pulse Source Pulse Oximeter Pulse Oximetry (%) 97 Oxygen Delivery Method Room Air Intake Visit Reasons: Asthma Allergies senna Adverse Reaction (Intermediate, Verified 12/09/24 09:42) Dizziness HPI Comments Details: The patient is a 64-year-old woman with a known history of Asthma COPD in addition to obstructive sleep apnea and respiratory failure oxygen, who recently moved to to the area from [place]. Upon moving to [place], after few weeks she ended up with worsening respiratory status and she was admitted to [facility] with a COPD exacerbation and also possibility of pneumonia. She did undergo a CT scan of the chest demonstrating areas of atelectasis scarring also demonstrated hyperexpansion of the lungs. She has significant morbid obesity as well. The patient was treated and subsequently released. She has been using her rescue inhaler often. She typically uses Xopenex due to tachyarrhythmias. She responded well to Trelegy in the past. She also has a history of sleep apnea. However, since she moved to the [facility] he has not been able to use 1. She continues to have daytime drowsiness. Her Shafer score is elevated 12/24. The patient also has multiple complaints including significant rashes in the chin is the eyes. In the office we did take her for brief walking oximetry. She quickly desaturated to 87% heart rate increased to the 130s 40s-1 appears to be an SVT. The patient is pretty symptomatic a mario score 8/10. At 2 L the patient's oxygen improved to 97%. She will continue using oxygen with activity and also sleep. She still having issues with heart rate being elevated also is feeling tired and drowsy. We did review her sleep study demonstrating moderate sleep apnea. The patient does have significant issues with tachycardia and also hypoxia and sleep study. I did recommed she undergo a titration study at the hospital. In the meantime she can use the oxygen at home. Will set her up with an auto APAP at this time. Will also try to keep her on the oxygen and possible. When she situated with the CPAP will have to do an overnight oximetry to see if she is getting enough oxygenation. She continues use her respiratory therapy with good effect. She still waiting for echo. Currently on hold because of the circumstances. It appears that her white count is demonstrate significant eosinophilia suggesting eosinophilic induced asthma exacerbations and also the possibility of eosinophilic pneumonia. The patient at this point has been failing in aggressive respiratory regimen and she also has been on multiple courses of corticosteroid therapy. For this reason the patient will be a great candidate for L5 inhibitors,Fasenra in noted to improve her asthma control and also decrease the prednisone use. She continues use the oxygen with good effect. 10/24/2023 the patient is here for sick visit. Apparently she started developing worsening chest tightness wheezing cough. She could not tolerate the symptoms any longer and she was brought to the ER. She tested positive for RSV just yesterday. The patient was given Solu-Medrol and then discharged on prednisone. Her cough is congested. Moderate severity with yellow sputum. Positive sick contacts in the family. She has been using her respiratory therapy with good effect initially but now does not seem to be helping as much. She does have a nebulizer available. I did look at her x-ray did not demonstrate any acute disease which is reassuring. Will go ahead and have her start prednisone although she only got prednisone for 5 days so I will give her a prescription on paper that therefore she can continue. She will also start a course of doxycycline to treat her for postviral bacterial infections. She will monitor closely her asthma symptoms. She also has oxygen at home. If she notices that her oxygen levels are dropping even further then she may need to go back to the ER. 03/26/2024 the patient is here for pulmonary follow-up visit. Overall her breathing is better. The patient did have shoulder surgery after she is started developing shingles over the left shoulder area. She has been following closely with Infectious Disease. She has not significant post herpetic neuralgia. She will try using the Lidoderm patches over the chest area to try to minimize symptoms. In addition to that she continues use her respiratory medications with good effect. She has not had to use any rescue medicine or prednisone which is reassuring. The patient also has been having difficulty at nighttime because of this pain discomfort due to the post herpetic neuralgia. She does have oxygen available and she can use use the oxygen for now until she gets more comfortable. When she is more comfortable we can have her restart using the CPAP. 07/12/2024 the patient is here for a pulmonary follow-up visit. Since we last spoke she has had worsening cough. Chest congestion. Ofhh-ao-eafjddez severity. She has been using all her respiratory therapy. Denies any sick contacts. She has been responding well to the Fasenra injection. That has controlled her asthma. In the meantime she appears to have a bout of bronchitis. Therefore go ahead treated with doxycycline. The patient also having issues with her post herpetic neuralgia pain. His primarily in the chest area effects of breathing. Therefore I will send her Lidoderm patches to see if this helps alleviate the discomfort that she can work on taking deep breaths. When she feels better she should restart using her CPAP regularly. She will bring her CPAP to the next visit. 01/14/2025 the patient is here for a pulmonary follow-up visit. Overall the patient has been doing okay from a respiratory status. Although she has had choking episodes. She has a hard time taking anything by mouth because it does not feel like it goes down right. She did undergo testing including a CT scan of the abdomen that I personally reviewed. In addition to a ultrasound of her liver. It appears that she is going to have an endoscopy with hopefully dilation of the esophagus to help her with her secretions. She may have a component of gastroparesis. At this point will go ahead and give her chlorhexidine that she can use daily to minimize aspiration pneumonia. And she can also try azithromycin 3 times a week as a promotility agent for 6-8 weeks to help her with her dysmotility issue prior to her procedure. She continues with respiratory therapy with good effect. She also continues uses CPAP at nighttime. CPAP therapy continues to be affecting beneficial. She knows that she needs use it 4 hours a night. [facility] Medical History Polyarticular osteoarthritis Avascular necrosis of bones of both hips Dysuria Morbid obesity Avascular necrosis Physical exam Well woman exam Pre-op evaluation RSV (acute bronchiolitis due to respiratory syncytial virus) Chest pain Palpitations URI (upper respiratory infection) Snoring Encounter for screening for malignant neoplasm of colon Lumbar pain Urinary incontinence Low blood pressure Allergic reaction UTI (urinary tract infection) Palpitations Morbid obesity with BMI of 40.0-44.9, adult Epigastric abdominal pain Oxygen dependent Hypothyroidism Hypersomnia ILD (interstitial lung disease) ROB on CPAP History of ESBL E. coli infection Obstructive sleep apnea Moderate recurrent major depression Urinary retention Acute and chronic respiratory failure with hypoxia COVID-19 Lupus (systemic lupus erythematosus) Polyarthralgia Neck mass Eosinophilia Severe asthma Asthma-COPD overlap syndrome Trigger finger of right hand Recurrent UTI Tachycardia Obesity Lumbar degenerative disc disease GERD (gastroesophageal reflux disease) Hemangioma Hypovitaminosis D Bipolar 1 disorder Depression with anxiety Insomnia COPD (chronic obstructive pulmonary disease) Surgical History Hx of hand surgery Hx of cardiac catheterization History of esophagogastroduodenoscopy (EGD) History of cystocele History of colonoscopy History of shoulder surgery History of carpal tunnel release History of hysterectomy History of section History of tonsillectomy Family History Father Prostate cancer Mother No problems noted. 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 Cognitive needs: Yes (walker ) Hearing needs: No Vision needs: Yes Female Reproductive History Menstrual Age of Menarche: 12 Review of Systems Const Reports body aches, Reports fatigue, Reports lethargy and Reports malaise Eyes Reports no additional complaints, Denies change in vision, Reports itchy eyes and Denies other visual disturbances ENT Reports dysphagia and Reports dizziness Card Denies chest pain at rest, Denies chest pain with activity, Denies edema, Denies irregular heart rhythm, Denies claudication, Denies dyspnea, Reports dyspnea on exertion, Denies orthopnea, Denies paroxysmal nocturnal dyspnea and Denies slow heart rate Resp Reports change in phlegm color, Reports chest congestion, Reports cough, Denies dyspnea, Reports dyspnea on exertion and Reports wheezing GI Denies abdominal pain, Reports dysphagia, Denies excessive flatus, Reports dyspepsia, Reports heartburn, Denies nausea and Denies vomiting Denies urinary incontinence, Denies urinary hesitancy and Denies urinary urgency Musc Reports abnormal gait, Denies atrophy, Denies deformity, Reports arthralgias and Denies limited range of motion Neuro Reports abnormal gait, Denies confusion and Reports dizziness Psych Denies confusion Endo Reports fatigue Aller/Immun Reports itchy eyes and Reports wheezing Physical Exam Vital Signs: Last Vital Signs Pulse 112 H 01/14/25 13:58 BP 124/88 01/14/25 13:58 Pulse Ox 97 01/14/25 13:58 Oxygen Delivery Method Room Air 01/14/25 13:58 BMI result Body Mass Index 43.1 Const General: No confusion Orientation/consciousness: No confusion HEENT General nose exam: Abnormal external nose present and Nasal discharge present Neck Neck: Yes supple Chest Chest palpation & inspection: normal inspection of the chest Resp Auscultation: no rales, no wheezes and diminished lung sounds Cardio Rate: regular rate Rhythm: regular rhythm Heart sounds: S1 normal heart sound present and S2 normal heart sound present GI Palpation (GI): Soft to palpation and nontender Auscultation: normal bowel sounds Skin General skin exam: rashes and/or lesions noted Neuro General: No confusion Assessment & Plan Assessment & Plan (1) Severe asthma: Comment: Eosinophilic asthma Code(s): J45.909 - Unspecified asthma, uncomplicated Category: Medical Qualifiers: Asthma complication type: uncomplicated Asthma persistence: persistent Qualified Code(s): J45.50 - Severe persistent asthma, uncomplicated (2) Oxygen dependent: Comment: pulmonology note 12/21/22 states no longer qualifies for supplemental O2 Code(s): Z99.81 - Dependence on supplemental oxygen Category: Medical (3) GERD (gastroesophageal reflux disease): Code(s): K21.9 - Gastro-esophageal reflux disease without esophagitis Category: Medical Qualifiers: Esophagitis presence: without esophagitis Qualified Code(s): K21.9 - Gastro-esophageal reflux disease without esophagitis (4) ROB on CPAP: Code(s): G47.33 - Obstructive sleep apnea (adult) (pediatric); Z99.89 - Dependence on other enabling machines and devices Category: Medical (5) ILD (interstitial lung disease): Code(s): J84.9 - Interstitial pulmonary disease, unspecified Category: Medical (6) Post herpetic neuralgia: Code(s): B02.29 - Other postherpetic nervous system involvement Category: Medical Plan continue Trelegy 200 1 inhalation daily FERMIN as needed continue oxygen with sleep 2 L/min and with activity APAP. provided p10 mask. Should bring it the CPAP to the next visit. Lidoderm patches start Azithromycin MWF x 6-8 weeks EGD pending continue Fasenra F/U 6 months Medications: New azithromycin Take 1 tablet on Monday/Monday/Monday 250 mg PO 3XW 12 tabs 1RF 28 days K21.9 - Gastro-esophageal reflux disease without esophagitis chlorhexidine gluconate 0.12% 15 mL buccal DAILY 450 mL 0RF 30 days Coding Level of Care Code Est Pt Level 4 (81079) Complex EM visit Add On G2211 Diagnoses Severe persistent asthma without complication J45.50 Asthma complication type: uncomplicated Asthma persistence: persistent Oxygen dependent Z99.81 Gastroesophageal reflux disease without esophagitis K21.9 Esophagitis presence: without esophagitis ROB on CPAP G47.33; Z99.89 ILD (interstitial lung disease) J84.9 Post herpetic neuralgia B02.29 Time Spent (min) 17
[2025-01-14 13:58] VITALS: BP 124/88; PULSE 112; O2SAT 97; BMI 43.1
--- OUTSIDE RECORDS SUMMARY | 2025-01-14 16:26 | XMS_ITS ---
Author Organization [facility] Care Team Providers Care Communications Assistant Name Role Phone Maryjo Castorena Unavailable Unavailable Rosio Mckeon Unavailable Unavailable María Perez Unavailable Unavailable Gris Allen Unavailable Unavailable Fartun Gamboa Unavailable Unavailable Bart CORREA, Shaunna Fajardo Unavailable Unavailable Tatyana Diaz Unavailable Unavailable Nneka De Unavailable Unavailable Maingi, Shadrack Unavailable Unavailable Allergies and adverse reactions No Known Allergies Care Team Name Role Address Phone Organization Dates María Perez PCP [address] [place] [address], Formerly [facility], [facility] (Office): : [facility] 02/23/2021 - 10/04/2021 Maryjo Castorena Attending Physician [address] [place] [address], [place], [address], [facility] (Office): : [phone] [facility] 02/23/2021 - 10/04/2021 Rosio Mckeon [place], [address], [facility] (Office): : [facility] 02/23/2021 - 10/04/2021 Gris Allen Attending Physician [address] [place] [address], [place] [address], [facility] (Office): : [facility] 02/23/2021 - 10/04/2021 Fartun Gamboa Attending Physician [address] [facility] [address], [place], [address], [facility] (Office): : [phone] [facility] 02/23/2021 - 10/04/2021 Shaunna Arriaga NP Attending Physician [address] [place] [address] 1, [place] [address], [facility] (Office): [facility] 02/23/2021 - 10/04/2021 Tatyana Diaz Attending Physician [address] [place] [address], [place], [place], [address] [place] [address] (Office): : [facility] 02/23/2021 - 10/04/2021 Nneka De Attending Physician [address] [place] [address] 1, [place], [address], [facility] (Office): : [phone] [facility] 02/23/2021 - 10/04/2021 Hong Shepherd Attending Physician [address] [place] [address], [place], [address], [facility] (Office): : [facility] 02/23/2021 - 10/04/2021 [...] Concern Status 1 DYSPHAGIA, ORAL PHASE [address] active 2 DYSPHAGIA, PHARYNGOESOPHAGEAL PHASE [address] active 3 PERSONAL HISTORY OF COVID-[address] active 4 ACUTE PAIN DUE TO TRAUMA [address] active 5 ADJUSTMENT INSOMNIA [address] active 6 ANXIETY DISORDER, UNSPECIFIED [address] active 7 UNSPECIFIED ASTHMA, UNCOMPLICATED [address] active 8 ACUTE AND CHRONIC RESPIRATORY FAILURE WITH HYPOXIA [id number] active 9 BIPOLAR DISORDER, CURRENT EPISODE DEPRESSED, MILD OR MODERATE SEVERITY, UNSPECIFIED [address] active 10 CHRONIC OBSTRUCTIVE PULMONARY DISEASE WITH (ACUTE) EXACERBATION [address] active 11 COVID-19 021 05/31/[address] completed 12 DIABETES MELLITUS DUE TO UNDERLYING CONDITION WITH DIABETIC POLYNEUROPATHY [address] active 13 DISCOID LUPUS ERYTHEMATOSUS [address] active 14 GASTRO-ESOPHAGEAL REFLUX DISEASE WITHOUT ESOPHAGITIS [address] active 15 HYPOTHYROIDISM, UNSPECIFIED [address] active 16 MAJOR DEPRESSIVE DISORDER, RECURRENT, UNSPECIFIED [address] active 17 PNEUMONIA, UNSPECIFIED ORGANISM [address] active 18 MUSCLE WEAKNESS (GENERALIZED) [address] active 19 OTHER ABNORMALITIES OF GAIT AND MOBILITY [address] active 20 UNSTEADINESS ON FEET [address] active 21 WE[address] active Reason for Referral No Reasons for Referral Entered Social History Social History Observation Description Start Date End Date Code Code System Current Smoking Status Tobacco smoking consumption unknown 392231695 SNOMED CT Sex Assigned At Female 1960 49334-9 [facility] Vital Signs Code Code System Vitals Name Values and Units Timing Information 9279-1 [facility] Respiratory Rate Value=20.0 Units=/m in 10/04/2021 8462-4 [facility] Blood Pressure-Diastolic Value=74 Un its=mmHg 10/04/2021 8480-6 [facility] Blood Pressure-Systolic Wtvji=176 Un its=mmHg 10/04/2021 8310-5 [facility] Body Temperature Value=97.4 Units=?? F 10/04/2021 8867-4 [facility] Heart rate Value=88.0 Units=/min 03/2021 99059-5 [facility] O2 % dC Oximetry Value=97.0 Units= % 10/04/2021 70049-1 [facility] Pain Level Value=0.0 10/04/2021 2339-0 [facility] Blood Sugar Value=90.0 Units=mg/dL 10/03/2021 12955-9 [facility] Weight Ecycn=931.0 Units=Lbs 12/2020 8302-2 [facility] Height Value=61.0 Units=Inches 01/09/2021
--- OUTSIDE RECORDS SUMMARY | 2025-01-14 16:26 | XMS_ITS ---
Author Organization [facility] on Care Team Providers Care Asbestos Shingle Inspector Name Role Phone Mahi Cartagena Unavailable Unavailable Anton Stoddard Unavailable Unavailable Aziza Zaldivar Unavailable Unavailable Alisia Louis Unavailable Unavailable Nela, Evangelina Unavailable Unavailable Griselda Mcclure Unavailable Unavailable Allergies and adverse reactions Code CodeSystem Substance Reaction Severity StartDate Concern Status unknown analgesi a given antihistamin Unknown 05/16/2020 active Care Team Name Role Address Phone Organization Dates Anton Stoddard PCP [address], [address], [place] (Office): : [facility] 05/16/2020 - 08/03/2020 Mahi Cartagena Attending Physician [address], [place] (Office): [facility] 05/16/2020 - 08/03/2020 Aziza Zaldivar Attending Physician [address] [place] [address], [address], [place] (Office): : [facility] 05/16/2020 - 08/03/2020 Alisia Louis Attending Physician [facility] [address] [facility], [place], [address], [place] (Office): : [facility] 05/16/2020 - 08/03/2020 Evangelina Rondon Attending Physician [address], [place], [address], [place] (Office): [facility] 05/16/2020 - 08/03/2020 Griselda Mcclure Attending Physician [address] [facility] [address], [place], [address], [place] (Office): : [facility] 05/16/2020 - 08/03/2020 Immunizations Immunization Status Vaccine [...] completed tuberculin skin test; unspecified formulation lotNumber: [id number] expiry: 04/08/2022 Mfg: [employer] Given [...] 1 ACUTE RESPIRATORY FAILURE WITH HYPOXIA 05/16/[address] active 2 BILATERAL PRIMARY OSTEOARTHRITIS OF KNEE 05/16/[address] active 3 CHRONIC OBSTRUCTIVE PULMONARY DISEASE, UNSPECIFIED 05/16/[address] active 4 MAJOR DEPRESSIVE DISORDER, RECURRENT, UNSPECIFIED 05/16/[address] active 5 OBESITY, UNSPECIFIED 05/16/[address] active 6 OBSTRUCTIVE SLEEP APNEA (ADULT) (PEDIATRIC) 05/16/[address] active 7 OTHER BIPOLAR DISORDER 05/16/[address] active 8 OTHER INSOMNIA 05/16/[address] ac tive 9 OTHER INTERVERTEBRAL DISC DEGENERATION, LUMBAR REGION 05/16/[address] active 10 PAIN IN UNSPECIFIED JOINT 05/16/[address] active 11 TACHYCARDIA, UNSPECIFIED 05/16/[address] active 12 TYPE 1 DIABETES MELLITUS WITHOUT COMPLICATIONS 05/16/[address] active 13 URINARY TRACT INFECTION, SITE NOT SPECIFIED 05/16/[address] active Reason for Referral No Reasons for Referral Entered Social History Social History Observation Description Start Date End Date Code Code System Current Smoking Status Tobacco smoking consumption unknown 096619797 SNOMED CT Sex Assigned At Female 1960 98485-4 [facility] Vital Signs Code Code System Vitals Name Values and Units Timing Information 9279-1 [facility] Respiratory Rate Value=20.0 Units=/m in 08/03/2020 8462-4 [facility] Blood Pressure-Diastolic Value=74 Un its=mmHg 08/03/2020 8480-6 [facility] Blood Pressure-Systolic Myumf=989 Un its=mmHg 08/03/2020 8310-5 [facility] Body Temperature Value=97.9 Units=?? F 08/03/2020 8867-4 [facility] Heart rate Value=90.0 Units=/min 02/2020 20526-7 [facility] O2 % BldC Oximetry Value=98.0 Units= % 08/03/2020 81235-1 [facility] Pain Level Value=0.0 08/03/2020 88846-9 [facility] Weight Ulwpm=086.0 Units=Lbs 2339-0 [facility] Blood Sugar Zywne=413.0 Units=mg/dL 05/27/2020 8302-2 [facility] Height Value=61.0 Units=Inches 05/16/2020
--- OUTSIDE RECORDS SUMMARY | 2025-01-14 16:27 | XMS_ITS | Data Portability ---
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 [email or web address] Not available 08/26/2024 20:23:21 Plan of Treatment Reminders Order Date Submit Date Provider Last Modified By Organization Details Last Modified Time Details Appointments None recorded. Lab culture, urine 2023 [place] [facility] (Centralized Electronic Ordering - All Locations), Patient Can Go To The Location Of Their Choice, [facility] 10:06:26 urinalysis, dipstick 2023 [email or web address] Main - [facility], [address] [place] [address], [phone], 20:23:24 urinalysis, dipstick 2021 022 [email or web address] [facility], [address] [place] [address], [phone], 11:28:27 unlisted lab - urinalysis w/reflex culture 2021 022 [place] [facility] (Centralized Electronic Ordering - All Locations), Patient Can Go To The Location Of Their Choice, [facility] 19:05:47 Referral None recorded. Procedures None recorded. Surgeries None recorded. Imaging None recorded. Medication Orders cefpodoxime 200 mg tablet 2023 024 [facility]/Pharmacy #[id number], [address] [facility] [facility], [place], [address], 4 18:25:11 prednisone 50 mg tablet 2021 022 [facility]/Pharmacy #[id number], [address] [place], [address], 2 11:38:43 prednisone 20 mg tablet 2021 022 [email or web address] Not available 11:55:52 Macrobid 100 mg capsule 2021 [facility]/Pharmacy #[id number], [address] [place], [address], 11:32:24 Pyridium 100 mg tablet 2021 [facility]/Pharmacy #[id number], [address] [place], [address], 11:32:24 Patient TargetsNo targets recorded. Patient InstructionsNo [...] Go To The Location Of Their Choice, [id number] 02/19/2022 19:05:46 02/20/20 22 02/19/2022 UA W/REF MARIE CULTU RE urine bilirubin NEGATI VE (neg) Not Available [facility] (Centralized Electronic Ordering - All Locations) Patient Can Go To The Location Of Their Choice, [id number] 02/19/2022 19:05:46 02/20/20 22 02/19/2022 UA W/REF MARIE CULTU RE urine hemoglobin NEGATI VE (neg) Not Available [facility] (Centralized Electronic Ordering - All Locations) Patient Can Go To The Location Of Their Choice, [id number] 02/19/2022 19:05:46 02/20/2002/19/2022 UA W/REF MARIE CULTU RE urine nitrite NEGATI VE (neg) Not Available [facility] (Centralized Electronic Ordering - All Locations) Patient Can Go To The Location Of Their Choice, [id number] 02/19/2022 19:05:46 02/20/2002/19/2022 UA W/REF MARIE CULTU RE urine leukocyte 2+ (neg) abnormal Not Available [facility] (Centralized [facility] Ordering - All Locations) Patient Can Go To The Location Of Their Choice, [id number] 02/19/2022 19:05:46 02/20/2002/19/2022 UA W/REF MARIE CULTU RE urobilinogen NORMAL mg/dL (norm) Not Available [facility] (Central[facility] Ordering - All Locations) Patient Can Go To The Location Of Their Choice, [id number] 02/19/2022 19:05:46 02/20/2002/19/2022 UA W/REF MARIE CULTU RE urine WBCs 17 /hpf (0-5) high Not Available [facility] (Centralized Electronic Ordering - All Locations) Patient Can Go To The Location Of Their Choice, [id number] 02/19/2022 19:05:46 02/20/2002/19/2022 UA W/REF MARIE CULTU [...] RE special requests NONE Reflex ed from [id number] Not Available [facility] (Centralized Electronic Ordering - All Locations) Patient Can Go To The Location Of Their Choice, [id number] 02/21/2022 09:59:20 02/20/2002/20/2022 URINE CULTU RE specimen description URINE Not Available [facility] ([facility] Ordering - All Locations) Patient Can Go To The Location Of Their Choice, [id number] 02/21/2022 09:59:20 02/20/20 22 02/21/2022 URINE CULTU RE culture Mixed bacter ial lizeth, indica tive of urogen ital contam inatio n. Not Available [facility] (Centralized Electronic Ordering - All Locations) Patient Can Go To The Location Of Their Choice, [id number] 02/21/2022 09:59:20 02/20/2002/21/2022 URINE CULTU RE report status FINAL 2021 Not Available [facility] (Centralized Electronic Ordering - All Locations) Patient Can Go To The Location Of Their Choice, [id number] 02/21/2022 09:59:20 02/20/2002/19/2022 urina lysis , dipst ick Leukocytes ++ Not Available Main - [facility] [address] [place] [address], [phone], 02/19/2022 11:27:23 02/20/20 22 02/19/2022 urina lysis , dipst ick Nitrite positi ve Not Available Main - [facility] [address] [place] [address], [phone], 02/19/2022 11:27:23 02/20/20 22 02/19/2022 urina lysis , dipst ick Ketone 1+ Not Available Main - [facility] [address] [place] [address], [phone], 02/19/2022 11:27:23 08/26/2008/29/2024 URINE CULTU RE,CO MPREH ENSIV E urine culture,comp rehensive Final report Not Available [facility] ([facility]) [address] [facility], [place], [address], 08/29/2024 10:06:37 08/26/2008/29/2024 URINE CULTU RE,CO MPREH ENSIV E result 1 COMMEN T No growt h in 36 - 48 hours . Not Available [facility] ([facility]) [address], [place], [address], 08/29/2024 10:06:37 Result Notes None recorded. Medical [...] /min 99 % 99 % 97.9 [degF] 10678.0 56 g 154.94 cm 20 /min 154.94 cm 99 % 99 % 20 /min 90 /min 97.9 [degF] 95053.0 56 g 118 mm[Hg] 78 mm[Hg] 118 [...] 120 mm[Hg] 70 mm[Hg] Eden Coronado MD [address] [place] [address],[address], [place], [phone] [place] [address] [employer] [facility] 2 11:36:33 Date Recorded Respiratory rate Heart rate Oxygen saturation Oxygen saturation in Arterial blood by Pulse oximetry Body temperature Systolic blood pressure Diastolic blood pressure Provider Name and Address Organization Details Last Updated DateTime 2 16 /min 89 /min 99 % 99 % 98.5 [degF] 113 mm[Hg] 76 mm[Hg] Not Available [employer] 2 12:14:07 Social History None recorded. Functional Status None recorded. Mental Status None recorded. Family History Nothing Reported. Medical History No medical history recorded. Gynecological HistoryNo gynecological history recorded. Obstetrics History GPAL:G 0 P 0 0 0 0 Past Encounters Encounter ID Performer Location Encounter Start Date Encounter Closed Date Diagnosis/Indication Diagnosis SNOMED-CT Code Diagnosis ICD10 Code Diagnosis Note [id number] Surya Acevedo MD [address] [phone] 02/18/2022 14:31:32 07/07/2022 13:35:00 Periorbital edema 05674710 H05.229 62yo woman evaluated for months of [...] changes ot therapy. [id number] [facility] [address] [place] [phone] 02/19/2022 09:58:40 07/05/2022 15:20:25 Dysuria 15928670 R30.9 Pt with hx prior UTIs (though [...] assessment and plan as documented by the applique sewer. I provided real time medical direction for this encounter and was immediatel y available to provide additional phone based assistance as needed. Periorbital edema 015294 00 H05.229 Symptoms persist since last [facility] visit, continuing on allergy tx. urine dip today w/o protein to suggest nephrotic syndomre, recommend PCP f/up for allergy testing/tx . Urine dip also w/ trace ketones but no hx diabetes and normal PO intake, likely contaminat ion from adjacent test strip. F/up formal urinalysis [id number] Kenneth Castellon MD Main - [facility] [address] [place] [phone] 03/10/2022 11:36:32 07/06/2022 14:33:02 Pruritic rash [id number] L28.2 [id number] Braydon Recio MD Main - [facility] [address] [place] [phone] 07/18/2022 17:25:40 07/22/2022 13:31:39 Pruritic rash 57538481 L28.2 [id number] Gerardo Lunsford MD Main - [facility] [address] [place] [phone] 08/26/2024 18:22:09 08/26/2024 21:57:44 Acute urinary tract infection 889395267 N39.0 Health Concerns Section Related Observation LastModified by Organization Detai ls LastModified Time None Recorded Concern Status LastModified by Organization Details LastModified Time None Recorded Advance Directives Directive None Recorded Payers Encounter Date Sequence Insurance Name Policy Number Policy Burnham Covered Member ID Burnham Member ID Guarantor Name 02/18/2022 1 [facility] - DOS PRIOR TO 2023 - DUAL ELIGIBLE (MEDICARE REPLACEMENT/ADV ANTAGE - HMO) Gracy Mar Mead [id number] Gracy Mar Mead 02/19/2022 1 [facility] - DOS PRIOR TO 2023 - DUAL ELIGIBLE (MEDICARE REPLACEMENT/ADV ANTAGE - HMO) Gracy Mar Mead [id number] Gracy Mar Mead 03/10/2022 1 [facility] - DOS PRIOR TO 2023 - DUAL ELIGIBLE (MEDICARE REPLACEMENT/ADV ANTAGE - HMO) Gracy Mar Mead [id number] Gracy Mar Mead 07/18/2022 1 [facility] - DOS PRIOR TO 2023 - DUAL ELIGIBLE (MEDICARE REPLACEMENT/ADV ANTAGE - HMO) Gracy Mar Mead [id number] Gracy Mar Mead 08/26/2024 1 [facility] - DOS ON OR AFTER 2023 - DUAL ELIGIBLE - [employer] AND ONE CARE (MEDICARE REPLACEMENT/ADV ANTAGE - HMO) Gracy Mar Mead [id number] Gracy Mar Mead Notes Date Note Type Note Provider Name and Address Organization Details Recorded Time 02/18/2022 text/html Member c/o swollen/itchy eyes w congestion, unable to see and open eyes. Member was in the hospital for over a month and they adjusted eye drops during admission with no help with symptoms . Member was in the hospital for [facility] and was d/c in SEP . Adjunct Instructor Of Women'S Studies Visit Summarydispatched to the above location for [...] and are as documented. picture sent to [facility]. [facility] contacted and states to keep using her prescribed eye drops and that she should follow up with her doctor for further treatment. at this time red flags explained to the patient, patient advised to seek treatment if any of the red flags arise. Surya Acevedo MD [address] [facility],[address], [place], [phone], [employer] 02/18/2022 14:35:29 02/19/2022 text/html Per request: Mem [...] an odor. Has chill but denies fever. Adjunct Instructor Of Women'S Studies documentation:Patient is a 62 year old female [...] Leukocytes, Nitrates, PH, KET. Urine brought to [facility] for culture. Vital signs obtained and all [...] or other emergencies. Eden Coronado MD [address] [facility],[address], [place], [address], [employer] 02/19/2022 16:34:18 03/10/2022 text/html HPI: mbr with complaints of wide spread/painful rash, states watery eyes, no open wounds, pustules reported. denies any SOB/N/V or difficulty swallowing. requesting [facility] vist. Protocol Used: Rash or Redness - Widespread Protocol-Based Disposition: Consider [facility], [facility] Community Clinician, or PCP visit within 24 hours Positive Triage Question: * SEVERE itching (i.e., interferes with sleep, normal activities or school) Negative Triage Questions: * Bloody crusts on lips or sores in mouth * Face becomes swollen * Sore throat ...................... ...................... ...................... ...................... ...................... ...................... ......... Adjunct Instructor Of Women'S Studies Note: dispatched to the above location for a female patient with a rash and itchy eyes. upon arrival patient was located sitting in a chair in her home. patient is alert and oriented X4. patient is Citizen Of [place] speaking with little American. family on scene to interpret. at this [...] time vitals obtained and are as documented. [facility] contacted and states to give 40 MG [...] ...................... ......... Disposition: Fulfilled Kenneth Castellon MD [address] [place] [address],[address], [place], [phone], [facility] 03/11/2022 10:35:01 07/18/2022 text/html CRC Nursing Assessment: [...] ...................... ...................... ...................... ...................... ...................... ...................... ......... Adjunct Instructor Of Women'S Studies Note: Sent to a call for a pt complaining of a rash on face and chest. [facility] arrives on scene, pt is alert and oriented. Airway is patent. 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 Pt was prescribed ASA daily on 07/14, [...] and fluid. Picture of rash uploaded to [employer]. BP:118/78, P:90, RR:18, SpO2:98% RA, T:97.9; Lung sounds: clear bilaterally, no stridor; Abdomen: soft, non-tender; Skin: pink, warm, dry with the exception of rash. [facility] orders Diphenhydramine 50mg IM. Diphenhydramine administered without incident. Red flags discussed. Pt/family has no further questions. ...................... ...................... ...................... ...................... ...................... ...................... ......... Disposition: Fulfilled Braydon Recio MD [address] [facility],[address], [place], [address], 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 Will place referral for UTI w/u.verified info: Susana PRADO Adjunct Instructor Of Women'S Studies Organization Information for [place] ISABELL [employer] Name: [facility] Address: [address] [place] [address], [place] [address], Manager Career: Henry Monreal MD [facility] No.: [id number] Adjunct Instructor Of Women'S Studies POC Test Results from Benijoselyn Pedro Linn ISABELL Urine Dipstick (18:19:27) Urine leukocytes: 3+ MARCOS Urine nitrites: + NIT Urine urobilinogen: - URO Urine protein: 2+ PRO Urine pH: 6.0 pH Urine blood: trace BLO Urine specific gravity: 1.010 SG Urine ketones: - KET Urine bilirubin: - JOSI Urine glucose: - GLU ...................... ...................... ...................... ...................... ...................... ...................... ......... Adjunct Instructor Of Women'S Studies Note From Nabil Pedro: Miss Ulrich is [...] is sent to [facility]. I consultative the [facility] will send prescription to pharmacy. Patient's family states they will tile picker the prescription today. I educated Mrs. Ulrich [...] were given the opportunity to ask questions. [facility] Lab Orders: culture, urine: Performed ...................... ...................... ...................... ...................... ...................... ...................... ......... Disposition: Fulfilled Gerardo Lunsofrd MD [address] [facility],[address], [place], [address], [facility] 08/26/2024 20:23:43 OBGyn Episode No OBEpisode recorded.
== END 2025-01-14 14:21 | disposition home or self-care (01) ==
LOC: HO.HPS 13:52
PROVIDERS: PCP Internal Medicine; Visit Provider Hospitalist
DX: J45.50 Severe persistent asthma, uncomplicated (principal); Z99.81 Dependence on supplemental oxygen; K21.9 Gastro-esophageal reflux disease without esophagitis; G47.33 Obstructive sleep apnea (adult) (pediatric); Z99.89 Dependence on other enabling machines and devices; J84.9 Interstitial pulmonary disease, unspecified; B02.29 Other postherpetic nervous system involvement
CPT/HCPCS: 99214; G2211

== ENCOUNTER → 2025-01-14 13:52 | Outpatient (BNVA) | payer OTHER, SELFPAY | PROVIDERS: PCP Internal Medicine; Visit Provider Hospitalist | DX: J44.9 Chronic obstructive pulmonary disease, unspecified (principal); J84.9 Interstitial pulmonary disease, unspecified; J45.50 Severe persistent asthma, uncomplicated; G47.33 Obstructive sleep apnea (adult) (pediatric); B02.29 Other postherpetic nervous system involvement; K21.9 Gastro-esophageal reflux disease without esophagitis; Z99.81 Dependence on supplemental oxygen; Z87.891 Personal history of nicotine dependence; Z99.89 Dependence on other enabling machines and devices | CPT/HCPCS: 99212 ==

== ENCOUNTER 2025-02-11 11:00 | Outpatient (RCR) | payer OTHER, SELFPAY ==
--- NOTE | 2025-03-07 15:33 | MHC.PT.DC ---
[facility] [place] Office [place] Office [place] Office [address] Cortez Torres [address] [facility] [phone] F: [phone] F: [phone] F: [phone] F: [phone] Physical Therapy Discharge Report Diagnosis: lumbar spondylosis (RL) Date of Surgery: N/A Date of Evaluation: 12/24/24 Date of Discharge: 03/07/25 Treatments to Date: 10 Cancellations to Date: 0 No Shows to Date: 0 Discharge Status: Improved Function Patient Elected to Stop Discharge Summary: The patient overall was reporting improvement in her back pain. She no showed her last scheduled appointment and did not follow-up with any additional visits. She is discharged from this physical therapy plan of care. Electronically signed by: Evelyn Lee PT, DPT Please sign and return to therapist. Thank you for your referral.
== END 2025-03-07 15:33 | disposition home or self-care (01) ==
LOC: HO.PT 11:00
PROVIDERS: PCP Internal Medicine; Visit Provider Physician Assistant Surgical
DX: M47.816 Spondylosis without myelopathy or radiculopathy, lumbar region (principal)
CPT/HCPCS: 97110; 97163

== ENCOUNTER 2025-02-17 09:21 | Outpatient (AMB) | payer OTHER, SELFPAY ==
--- OUTSIDE RECORDS SUMMARY | 2025-02-17 09:24 | XMS_ITS | Data Portability ---
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 [email or web address] Not available 08/26/2024 20:23:21 Plan of Treatment Reminders Order Date Submit Date Provider Last Modified By Organization Details Last Modified Time Details Appointments None recorded. Lab culture, urine 2023 MAGDY [facility] (Centralized Electronic Ordering - All Locations), Patient Can Go To The Location Of Their Choice, [id number] 10:06:26 urinalysis, dipstick 2023 [email or web address] [facility], [address] [place] [address], [phone] 20:23:24 urinalysis, dipstick 2021 022 [email or web address] [facility], [address] [place] [address], [phone] 11:28:27 unlisted lab - urinalysis w/reflex culture 2021 022 PIE TOWN [facility] (Centralized Electronic Ordering - All Locations), Patient Can Go To The Location Of Their Choice, [facility] 19:05:47 Referral None recorded. Procedures None recorded. Surgeries None recorded. Imaging None recorded. Medication Orders cefpodoxime 200 mg tablet 2023 024 [facility][id number], [address] [place], [address], 18:25:11 prednisone 50 mg tablet 2021 022 [facility][id number], [address] [place], [address], 11:38:43 prednisone 20 mg tablet 2021 [email or web address] Not available 11:55:52 Macrobid 100 mg capsule 2021 [facility] #[id number], [address] [place], [address], 11:32:24 Pyridium 100 mg tablet 2021 [facility][id number], [address] [place], [address], 11:32:24 Patient TargetsNo targets recorded. Patient InstructionsNo [...] 02/20/2002/19/2022 UA W/REF MARIE CULTU RE urine bilirubin NEGATI VE (neg) Not Available [facility] (Centralized Electronic Ordering - All Locations) Patient Can Go To The Location Of Their Choice, 02/19/2022 19:05:46 02/20/2002/19/2022 UA W/REF MARIE CULTU RE urine hemoglobin [...] The Location Of Their Choice, 02/19/2022 19:05:46 02/20/20 22 02/19/2022 UA W/REF MARIE CULTU RE bacteria SLIGHT hpf (neg) abnormal Not Available [facility] (Centralized Electronic Ordering - All Locations) Patient Can Go To The Location Of Their Choice, 02/19/2022 19:05:46 02/20/20 22 02/19/2022 UA W/REF [...] The Location Of Their Choice, 02/19/2022 19:05:46 02/20/20 22 02/19/2022 UA W/REF MARIE CULTU RE transitional epith <1 /hpf Not Available [facility] (Centralized [facility] Ordering - All Locations) Patient Can Go To The Location Of Their Choice, 02/19/2022 19:05:46 02/20/20 22 02/19/2022 UA W/REF MARIE CULTU RE renal epith <1 /hpf Not Available [facility] (Central[facility] Ordering - All Locations) Patient Can Go To The Location Of Their Choice, 02/19/2022 19:05:46 02/20/20 22 02/19/2022 UA W/REF MARIE CULTU RE clarity CLEAR (clear ) Not Available [facility] (Centralized Electronic Ordering - All Locations) Patient Can Go To The Location Of Their Choice, 02/19/2022 19:05:46 02/20/20 22 02/19/2022 UA W/REF MARIE CULTU RE culture indication CULTUR E INDICA MIGDALIA Not Available [facility] (Centralized Electronic Ordering - All Locations) Patient Can Go To The Location Of Their Choice, 02/19/2022 19:05:46 02/20/2002/19/2022 URINE CULTU RE special requests NONE Reflex ed from [id number] Not Available [facility] (Centralized Electronic Ordering - All Locations) Patient Can Go To The Location Of Their Choice, 02/21/2022 09:59:20 02/20/20 22 02/20/2022 URINE CULTU RE specimen description URINE Not Available [facility] ([facility] Order[facility] - All Locations) Patient Can Go To The Location Of Their Choice, 02/21/2022 09:59:20 02/20/20 22 02/21/2022 URINE CULTU RE culture Mixed bacter ial lizeth, indica tive of urogen ital contam inatio n. Not Available [facility] (Centralized Electronic Ordering - All Locations) Patient Can Go To The Location Of Their Choice, 02/21/2022 09:59:20 02/20/20 22 02/21/2022 URINE CULTU RE report status FINAL 2021 Not Available [facility] (Centralized Electronic Ordering - All Locations) Patient Can Go To The Location Of Their Choice, 02/21/2022 09:59:20 02/20/20 22 02/19/2022 urina lysis , dipst ick Leukocytes ++ Not Available [facility] [address] [place] [address], [phone] 02/19/2022 11:27:23 02/20/20 22 02/19/2022 urina lysis , dipst ick Nitrite positi ve Not Available [facility] [address] [place] [address], [phone] 02/19/2022 11:27:23 02/20/20 22 02/19/2022 urina lysis , dipst ick Ketone 1+ Not Available [facility] [address] [place] [address], [phone] 02/19/2022 11:27:23 08/26/20 24 08/29/2024 URINE CULTU RE,CO MPREH ENSIV E urine culture,comp rehensive Final report Not Available [facility] ([facility]) [address] [facility], [place], [address], 08/29/2024 10:06:37 08/26/20 24 08/29/2024 URINE CULTU RE,CO MPREH ENSIV E result 1 COMMEN T No growt h in 36 - 48 hours . Not Available [facility] ([facility]) [address] [facility], [place], [address], 08/29/2024 10:06:37 Result Notes None recorded. Medical [...] /min 128 mm[Hg] 88 mm[Hg] Not Available [facility] - production 4 18:22:11 Date Recorded Heart [...] /min 99 % 99 % 97.9 [degF] 66226.0 56 g 154.94 cm 20 /min 154.94 cm 99 % 99 % 20 /min 90 /min 97.9 [degF] 52431.0 56 g 118 mm[Hg] 78 mm[Hg] 118 [...] 120 mm[Hg] 70 mm[Hg] Eden Coronado MD [address] [place] [address],[address], [place], [address] [facility] 2 11:36:33 Date Recorded Respiratory rate Heart rate Oxygen saturation Oxygen saturation in Arterial blood by Pulse oximetry Body temperature Systolic blood pressure Diastolic blood pressure Provider Name and Address Organization Details Last Updated DateTime 2 16 /min 89 /min 99 % 99 % 98.5 [degF] 113 mm[Hg] 76 mm[Hg] Not Available [facility] - production 2 12:14:07 Social History None recorded. Functional Status None recorded. Mental Status None recorded. Family History Nothing Reported. Medical History No medical history recorded. Gynecological HistoryNo gynecological history recorded. Obstetrics History GPAL:G 0 P 0 0 0 0 Past Encounters Encounter ID Performer Location Encounter Start Date Encounter Closed Date Diagnosis/Indication Diagnosis SNOMED-CT Code Diagnosis ICD10 Code Diagnosis Note [id number] Surya Acevedo MD [address] [phone] 02/18/2022 14:31:32 07/07/2022 13:35:00 Periorbital edema 16367063 H05.229 62yo woman evaluated for months of [...] changes ot therapy. [id number] Eden Coronado MD [address] [address] 02/19/2022 09:58:40 07/05/2022 15:20:25 Dysuria 05743150 R30.9 Pt with hx prior UTIs (though [...] assessment and plan as documented by the steam setter. I provided real time medical direction for this encounter and was immediatel y available to provide additional phone based assistance as needed. Periorbital edema 601634 00 H05.229 Symptoms persist since last [facility] visit, continuing on allergy tx. urine dip today w/o protein to suggest nephrotic syndomre, recommend PCP f/up for allergy testing/tx . Urine dip also w/ trace ketones but no hx diabetes and normal PO intake, likely contaminat ion from adjacent test strip. F/up formal urinalysis [id number] Kenneth Castellon MD [facility] [address] [place] [phone] 03/10/2022 11:36:32 07/06/2022 14:33:02 Pruritic rash 39346791 L28.2 [id number] Braydon Recio MD [facility] - [facility] [address] [place] [phone] 07/18/2022 17:25:40 07/22/2022 13:31:39 Pruritic rash 16114892 L28.2 [id number] Gerrado Lunsford MD [facility] - [facility] [address] [place] [phone] 08/26/2024 18:22:09 08/26/2024 21:57:44 Acute urinary tract infection 317309086 N39.0 Health Concerns Section Related Observation LastModified by Organization Detai ls LastModified Time None Recorded Concern Status LastModified by Organization Details LastModified Time None Recorded Advance Directives Directive None Recorded Payers Encounter Date Sequence Insurance Name Policy Number Policy Burnham Covered Member ID Burnham Member ID Guarantor Name 02/18/2022 1 [facility] - DOS PRIOR TO 2023 - DUAL ELIGIBLE (MEDICARE REPLACEMENT/ADV ANTAGE - HMO) Gracy Mead [id number] Gracy Mead 02/19/2022 1 [facility] - DOS PRIOR TO 2023 - DUAL ELIGIBLE (MEDICARE REPLACEMENT/ADV ANTAGE - HMO) Gracy Mar Mead [id number] Gracy Mar Mead 03/10/2022 1 [facility] - DOS PRIOR TO 2023 - DUAL ELIGIBLE (MEDICARE REPLACEMENT/ADV ANTAGE - HMO) Gracy Mar Mead [id number] Gracy Mar Mead 07/18/2022 1 [facility] - DOS PRIOR TO 2023 - DUAL ELIGIBLE (MEDICARE REPLACEMENT/ADV ANTAGE - HMO) Gracy Mar Mead [id number] Gracy Mar Mead 08/26/2024 1 [facility] - DOS ON OR AFTER 2023 - DUAL ELIGIBLE - RETIREMENT OPTIONS AND ONE CARE (MEDICARE REPLACEMENT/ADV ANTAGE - HMO) Gracy Mar Mead [id number] Gracy Mar Mead Notes Date Note Type Note Provider Name and Address Organization Details Recorded Time 02/18/2022 text/html Member c/o swollen/itchy eyes w congestion, unable to see and open eyes. Member was in the hospital for over a month and they adjusted eye drops during admission with no help with symptoms . Member was in the hospital for and was d/c in SEP . Art Conservator Visit Summarydispatched to the above location for [...] and are as documented. picture sent to [facility]. [facility] contacted and states to keep using her prescribed eye drops and that she should follow up with her doctor for further treatment. at this time red flags explained to the patient, patient advised to seek treatment if any of the red flags arise. Surya Acevedo MD [address], [place], [address], [facility] 02/18/2022 14:35:29 02/19/2022 text/html Per request: Anna alcantara seen today 02/18 for itchy/swollen eyes, no other concerns were voiced during visit.Member called back in stating she needed another [facility] for tomorrow 02/19.Member was treated for a UTI 1.5 weeks ago with an ABX. About 4 days ago member states she started with urinary symptoms again. Has c/o pain and burning with urination, urine is dark and concentrated with an odor. Has chill but denies fever. Art Conservator documentation:Patient is a 62 year old female [...] Leukocytes, Nitrates, PH, KET. Urine brought to [facility] for culture. Vital signs obtained and all within normal limits. Red flags discussed. Consulted with Dr. Coronado. Patient is to follow up with PCP on Monday regarding her signs, symptoms and todays visit. Dr. Coronado prescribed the patient Macrobid and Pyridium, prescriptions sent to patients pharmacy for pickup. Patient to contact PCP regarding urine culture results. Contact [facility] for a re-visit if symptoms persist. Contact 1 for any discussed red flags or other emergencies. Eden Coronado MD [address], [place], [address], [facility] 02/19/2022 16:34:18 03/10/2022 text/html HPI: mbr with complaints of wide spread/painful rash, states watery eyes, no open wounds, pustules reported. denies any SOB/N/V or difficulty swallowing. requesting [facility] vist. Protocol Used: Rash or Redness - Widespread Protocol-Based Disposition: Consider [facility], [facility] Community Clinician, or PCP visit within 24 hours Positive Triage Question: * SEVERE itching (i.e., interferes with sleep, normal activities or school) Negative Triage Questions: * Bloody crusts on lips or sores in mouth * Face becomes swollen * Sore throat ...................... ...................... ...................... ...................... ...................... ...................... ......... Art Conservator Note: dispatched to the above location for a female patient with a rash and itchy eyes. upon arrival patient was located sitting in a chair in her home. patient is alert and oriented X4. patient is Nigerian speaking with little Mongolian. family on scene [...] time vitals obtained and are as documented. [facility] contacted and states to give 40 MG [...] ...................... ......... Disposition: Fulfilled Kenneth Castellon MD [address] [facility],[address], [place], [address], [facility] 03/11/2022 10:35:01 07/18/2022 text/html CRC Nursing Assessment: Reason For Request: PMH: fibromyalgia Reasons: Redness all over her face and chest. Rash is warm to the touch. Patient's nephew describes it as mildy itchy. Allergic reaction to something? Patient was recently prescribed AspirinTh07/14/22. Patient's nephew states reaction started yesterday (07/17/22) [...] ...................... ...................... ...................... ...................... ...................... ...................... ......... Art Conservator Note: Sent to a call for a pt complaining of a rash on face and chest. SC8 arrives on scene, pt is alert and oriented. Airway is patent. 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 Pt was prescribed ASA daily on [...] and fluid. Picture of rash uploaded to [employer]. BP:118/78, P:90, RR:18, SpO2:98% RA, T:97.9; Lung sounds: clear bilaterally, no stridor; Abdomen: soft, non-tender; Skin: pink, warm, dry with the exception of rash. [facility] orders Diphenhydramine 50mg IM. Diphenhydramine administered without incident. Red flags discussed. Pt/family has no further questions. ...................... ...................... ...................... ...................... ...................... ...................... ......... 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 Will place referral for UTI w/u.verified info: Susana PRADO Art Conservator Organization Information for [facility] Magnetic Legal Name: [facility] Transportation Address: [address] [place] [address], [place] [address], P[employer] Press Setter: Henry Monreal MD [facility] No.: [id number] Art Conservator POC Test Results from [facility] Urine Dipstick (18:19:27) Urine leukocytes: 3+ MARCOS Urine nitrites: + NIT Urine urobilinogen: - URO Urine protein: 2+ PRO Urine pH: 6.0 pH Urine blood: trace BLO Urine specific gravity: 1.010 SG Urine ketones: - KET Urine bilirubin: - JOSI Urine glucose: - GLU ...................... ...................... ...................... ...................... ...................... ...................... ......... Art Conservator Note From Pedro Fer[facility]: Miss Ulrich is [...] is sent to [facility]. I consultative the [facility] will send prescription to pharmacy. Patient's family states they will nut picker the prescription today. I educated Mrs. [...] were given the opportunity to ask questions. [facility] Lab Orders: culture, urine: Performed ...................... ...................... ...................... ...................... ...................... ...................... ......... Disposition: Liban Lunsford MD [address] [facility],[address], [place], [address], [facility] 08/26/2024 20:23:43 OBGyn Episode No OBEpisode recorded.
--- NOTE | 2025-02-17 09:31 | A.OFFPC_ITS ---
Vital Signs 02/17/25 09:32 Height 5 ft 1 in Weight 232 lb BMI 43.8 BP 126/82 Blood Pressure Location Lt brachial Position Sitting Pulse 88 Pulse Source Pulse Oximeter Pulse Oximetry (%) 97 Oxygen Delivery Method Room Air Intake Visit Reasons: [facility] lt 03/04 & rt 03/17 Phlebotomist Lab Assistant Required: No Accompanied by: RESEARCH INTERVIEWER Allergies senna Adverse Reaction (Intermediate, Verified 02/17/25 09:45) Dizziness Medication List - Last Reconciled 02/17/25 by Farideh Marquez MD acetaminophen 325 mg PO QID PRN 30 days [adult diapers pull-ups As directed] albuterol sulfate 90 mcg/actuation 2 puffs inhalation Q4H PRN albuterol sulfate 2.5 mg (3 mL) inhalation Q6H PRN amitriptyline 100 mg PO BEDTIME azithromycin 250 mg PO 3XW 28 days benralizumab (Fasenra) 30 mg subcut Q8W blood pressure kit-extra large As directed bupropion HCl XL 300 mg PO DAILY carboxymethylcellulose sodium 0.5% 1 drp ophthalmic (eye) BID PRN 30 days cefpodoxime 200 mg PO Q12H cetirizine 10 mg PO DAILY PRN 90 days chair, wheel (Wheel chair) As directed chlorhexidine gluconate 0.12% 15 mL buccal DAILY 30 days cholecalciferol (vitamin D3) (Vitamin D3) 25 mcg PO DAILY clonazepam 1 mg PO DAILY commode (bedside commode) As directed cromolyn 4% 1 drp ophthalmic (eye) 6XD 30 days diclofenac sodium 1% 4 grams topical QID diphenhydramine HCl (Banophen) 25 mg PO BEDTIME PRN disposable gloves As directed docusate sodium (Colace) 100 mg PO BID [electric wheelchair As directed] ertapenem 1 g IV DAILY esomeprazole magnesium 40 mg PO DAILY [flushable wipes As directed] bqrvlyiwzxm-xfcnrujrp-ochbdmmz 200-62.5-25 mcg (Trelegy Ellipta) 1 inh inhalation DAILY 30 days gabapentin 400 mg PO TID ketorolac 10 mg PO TID PRN 5 days lactulose 10 grams (15 mL) PO BEDTIME PRN 30 days lamotrigine 200 mg PO DAILY levothyroxine 50 mcg PO DAILY@0630 lidocaine 5% (Lidoderm) 1 patch topical DAILY lidocaine HCl 4% (AsperFlex (lidocaine HCl)) use 1-2 inch ointment and apply up to 3 times daily on L shoulder topically; lubiprostone 24 mcg PO BID meloxicam 15 mg PO DAILY miscellaneous medical supply OVERBED TABLE nebulizers (AeroEclipse II Nebulizer) As directed oxygen-air delivery systems As directed pantoprazole 40 mg PO BID polyethylene glycol 3350 (Miralax) 17 grams PO BID PRN [POWER LIFT RECLINER As directed] quetiapine 50 - 100 mg PO BEDTIME [recliner with power buttons As directed] rosuvastatin 10 mg PO DAILY [shower seat As directed] simethicone 125 mg PO QID PRN sodium,potassium,mag sulfates 17.5-3.13-1.6 gram (Suprep Bowel Prep Kit) DILUTE; drink 1/2 at 6-8 pm and half at 11 PM- 1AM topiramate 100 mg PO BID tramadol 50 mg PO Q6H PRN trazodone 100 mg PO BEDTIME PRN 90 days underpads (Bed Underpads) As directed [wheelchair As directed] [wheeled table with drawers As directed] zolpidem 10 mg PO BEDTIME PRN Tobacco use date assessed: 11/12/24 Fall risk assessment: No Falls in past year Last assessed Fall Risk: 02/17/25 Dental Screening Dental Screen Date: 02/17/25 Did you have a dental visit in the last 12 months?: No Did you have a dental problem in the last 6 months where you did not have access to dental care?: No Was dental information given to patient?: Patient has dentist HPI HPI Comments History of Present Illness Details The patient is a 65-year-old female presenting with the need for preoperative evaluation related to an upcoming cataract extraction and intraocular lens implantation next month. Currently, she requires updated laboratory testing and an electrocardiogram to ensure safe proceeding with the operation. She denies chest pain but reports exertional fatigue and shortness of breath. Her past medical history is significant for asthma-COPD overlap syndrome, cardiomyopathy, hypothyroidism, and dyslipidemia; she also manages chronic constipation and multiple joint pain complaints. Her multiple medications are device-specific to her conditions, involving maintenance and some change due to prior prescriptions no longer being effective or required. She is morbidly obese and was advised to do diet and exercise. She also complains of a left shoulder pain after moving some boxes around and has limited range of motion. X-ray will be order and will be referred to Ortho. Also has moderate recurrent major depression follow by Psychiatry. [facility] Medical History (Updated 02/17/25 @ 10:08 by Farideh Marquez MD) Pre-op evaluation Polyarticular osteoarthritis Avascular necrosis of bones of both hips Dysuria Morbid obesity Avascular necrosis Physical exam Well woman exam RSV (acute bronchiolitis due to respiratory syncytial virus) Chest pain Palpitations URI (upper respiratory infection) Snoring Encounter for screening for malignant neoplasm of colon Lumbar pain Urinary incontinence Low blood pressure Allergic reaction UTI (urinary tract infection) Palpitations Morbid obesity with BMI of 40.0-44.9, adult Epigastric abdominal pain Oxygen dependent Hypothyroidism Hypersomnia ILD (interstitial lung disease) ROB on CPAP History of ESBL E. coli infection Obstructive sleep apnea Moderate recurrent major depression Urinary retention Acute and chronic respiratory failure with hypoxia COVID-19 Lupus (systemic lupus erythematosus) Polyarthralgia Neck mass Eosinophilia Severe asthma Asthma-COPD overlap syndrome Trigger finger of right hand Recurrent UTI Tachycardia Obesity Lumbar degenerative disc disease GERD (gastroesophageal reflux disease) Hemangioma Hypovitaminosis D Bipolar 1 disorder Depression with anxiety Insomnia COPD (chronic obstructive pulmonary disease) Surgical History Hx of hand surgery Hx of cardiac catheterization History of esophagogastroduodenoscopy (EGD) History of cystocele History of colonoscopy History of shoulder surgery History of carpal tunnel release History of hysterectomy History of section History of tonsillectomy Family History Father Prostate cancer Mother No problems noted. Sister Nasopharyngeal cancer Social History Household Members: None Household Members Other:: 1 Housing: Apartment Do you presently have visiting nurse or other home services: Yes (Has RESEARCH INTERVIEWER) Alcohol intake: never Comment: sleeping Patient Tobacco Use Status: Former Tobacco user Years Smoked: 14 +/- e-Cigarette/Vaping Use: Never Used Second Hand Smoke Exposure: No Advance Directives Date on File: 01/08/21 service: No Current occupational status: disabled Current occupation: right and left handed--- HAS [employer]EARCH INTERVIEWER SERVICES Cognitive needs: Yes (walker ) Hearing needs: No Vision needs: Yes Female Reproductive History Menstrual Age of Menarche: 12 Questionnaire Thrive Questionnaire Date Thrive assessed: 11/19/24 DAO-7 AMB Questionnaire DAO-7 Date DAO - 7 assessed: 11/19/24 Source: Developed by Drs. Power Thornton, Melissa Peñaloza, Master Grijalva and colleagues, with an educational sudhir from [employer]. Review of Systems Const All systems reviewed & are unremarkable except as noted in HPI and below Card Denies chest pain at rest, Denies chest pain with activity, Denies edema, Denies irregular heart rhythm, Denies claudication, Denies dyspnea, Denies dyspnea on exertion, Denies orthopnea, Denies paroxysmal nocturnal dyspnea and Denies slow heart rate Resp Denies cough, Denies dyspnea and Denies dyspnea on exertion GI Denies abdominal pain, Denies change in bowel habits, Denies excessive flatus, Denies nausea and Denies vomiting Musc Denies atrophy, Denies deformity, Reports arthralgias and Reports limited range of motion Physical exam (Primary Care) Vital Signs: Last Vital Signs Pulse 88 02/17/25 09:32 BP 126/82 02/17/25 09:32 Pulse Ox 97 02/17/25 09:32 Oxygen Delivery Method Room Air 02/17/25 09:32 BMI result Body Mass Index 43.8 BMI Assessment/Plan discussion: High BMI High, discussed plan: lifestyle, weight reduction, dietary and physical activity Tobacco/Smoking Status: Tobacco use Status Tobacco use date assessed 11/12/24 02/17/25 09:36 Patient Tobacco Use Status Former Tobacco user 02/17/25 09:36 Tobacco use type 06/13/24 13:49 e-Cigarette/Vaping Use Never Used 02/17/25 09:36 Thrive Assessment: Date of Thrive Assessment Date Thrive assessed 11/19/24 02/17/25 09:36 Const Limitations: ambulation with walker Resp Effort & Inspection: normal respiratory effort Auscultation: clear to auscultation bilaterally Cardio Jugular venous distension: no JVD Rate: regular rate Rhythm: regular rhythm Heart sounds: S1 normal heart sound present and S2 normal heart sound present Extrem Left upper extremity: shoulder/upper arm Details: tenderness and abnormal ROM Details: pain with active ROM Details: in ABduction and in extension Coding Level of Care Code Est Pt Level 4 (30405) Complex EM visit Add On G2211 Diagnoses Pre-op evaluation Z01.818 Left shoulder pain M25.512 Morbid obesity E66.01 Cardiomyopathy I42.9 Moderate recurrent major depression F33.1 Asthma-COPD overlap syndrome J44.9 Hyperlipidemia E78.5 Hypothyroid E03.9 Slow transit constipation K59.01 Time Spent (min) 25 Assessment & Plan Assessment & Plan (1) Pre-op evaluation: Code(s): Z01.818 - Encounter for other preprocedural examination Category: Medical (2) Left shoulder pain: Code(s): M25.512 - Pain in left shoulder Category: Medical (3) Morbid obesity: Code(s): E66.01 - Morbid (severe) obesity due to excess calories Category: Medical (4) Cardiomyopathy: Code(s): I42.9 - Cardiomyopathy, unspecified Category: Medical (5) Moderate recurrent major depression: Code(s): F33.1 - Major depressive disorder, recurrent, moderate Category: Medical (6) Asthma-COPD overlap syndrome: Comment: [place] [place] Code(s): J44.9 - Chronic obstructive pulmonary disease, unspecified Category: Medical (7) Hyperlipidemia: Code(s): E78.5 - Hyperlipidemia, unspecified Category: Medical (8) Hypothyroid: Code(s): E03.9 - Hypothyroidism, unspecified Category: Medical (9) Slow transit constipation: Code(s): K59.01 - Slow transit constipation Category: Medical Plan During our consultation, I advised repeating laboratory tests and arranging an electrocardiogram as part of her preoperative workup for cataract surgery. I highlighted the importance of maintaining her ongoing medication regimen while acknowledging changes to prescriptions that have been deemed no longer necessary. Her cardiac function will be evaluated with an echocardiogram planned for May. These combined preemptive strategies are crucial for maintaining her health stability and preventing unforeseen complications in light of her chronic conditions. Additionally, we will continue to address fatigue exacerbated by physical exertion and ensure her health spanning systemic concerns is safeguarded through these modalities. Patient was informed and verbally consented to the use of an ambient scribe for clinic note documentation during this visit. I undertook conversations with the patient regarding the requirements for her preoperative evaluation, particularly emphasizing the non-invasive nature and low risk associated with the upcoming cataract surgery. I informed her about repeating laboratory tests and conducting an electrocardiogram to provide baseline data for assessing her current health status. For her chronic conditions, we maintain her strategic medication plan while considering the need for an updated cardiac evaluation given her medical history. She confirmed understanding of these measures designed for her wellbeing, with the ultimate goal of ensuring a safe surgical process. Orders: Orders CA echo transthoracic complete 4 Months R93.1 - Abnormal findings on diagnostic imaging of heart and coronary circulation Vitamin D 25-OH Total Today E55.9 - Vitamin D deficiency, unspecified Complete Blood Count Auto Diff Today E66.01 - Morbid (severe) obesity due to excess calories Thyroid Stimulating Hormone Today E03.9 - Hypothyroidism, unspecified FARIDEH Reflex Titer and Pattern Today M25.50 - Pain in unspecified joint Cyclic Citrullinated Peptide Today M25.50 - Pain in unspecified joint Rheumatoid Factor Today M25.50 - Pain in unspecified joint Erythrocyte Sedimentation Rate Today M25.50 - Pain in unspecified joint ECG 12 lead EKG Today Z01.818 - Encounter for other preprocedural examination Lipid Panel Today E78.5 - Hyperlipidemia, unspecified NT-proBNP Today R93.1 - Abnormal findings on diagnostic imaging of heart and coronary circulation Comprehensive [place]. Panel Fast Today Z01.818 - Encounter for other preprocedural examination C Reactive Protein Today M25.50 - Pain in unspecified joint Anti DNA DS Antibody Today M25.50 - Pain in unspecified joint XR shoulder LT min 2V Today M25.512 - Pain in left shoulder Referrals Orthopedics Referral M25.512 - Pain in left shoulder Medications: Discontinued trazodone Discontinued Reason: Patient Completed Course 100 mg PO BEDTIME 90 days PRN 90 tabs 0RF sleep Patient Instructions: - Schedule laboratory tests and an electrocardiogram for this week. - Continue current medications as prescribed. - Be aware of any new symptoms or changes in condition, such as increased shortness of breath or chest pain, and report them immediately. - Use walker for aid in mobility and reduce exertion. - Contact the office for further instructions or questions before and after the cataract surgery.
[2025-02-17 09:32] VITALS: BP 126/82; PULSE 88; O2SAT 97; BMI 43.8
== END 2025-02-17 10:03 | disposition home or self-care (01) ==
LOC: HO.HMCH 09:21
PROVIDERS: PCP Internal Medicine; Visit Provider Internal Medicine
DX: M25.512 Pain in left shoulder (principal); E66.01 Morbid (severe) obesity due to excess calories; Z68.41 Body mass index [BMI] 40.0-44.9, adult; I42.9 Cardiomyopathy, unspecified; F33.1 Major depressive disorder, recurrent, moderate; J44.9 Chronic obstructive pulmonary disease, unspecified; Z01.818 Encounter for other preprocedural examination; E78.5 Hyperlipidemia, unspecified; E03.9 Hypothyroidism, unspecified; K59.01 Slow transit constipation

== ENCOUNTER → 2025-02-17 09:21 | Outpatient (BNVA) | payer OTHER, SELFPAY | PROVIDERS: PCP Internal Medicine; Visit Provider Internal Medicine | DX: Z01.818 Encounter for other preprocedural examination (principal); J44.89 Other specified chronic obstructive pulmonary disease; E66.01 Morbid (severe) obesity due to excess calories; I42.9 Cardiomyopathy, unspecified; E03.9 Hypothyroidism, unspecified; E78.5 Hyperlipidemia, unspecified; M25.50 Pain in unspecified joint; M25.512 Pain in left shoulder; F33.1 Major depressive disorder, recurrent, moderate; J44.9 Chronic obstructive pulmonary disease, unspecified; K59.01 Slow transit constipation; Z87.891 Personal history of nicotine dependence; Z68.41 Body mass index [BMI] 40.0-44.9, adult | CPT/HCPCS: 99212 ==

== ENCOUNTER 2025-02-19 09:27 | Emergency (ER) | payer OTHER, SELFPAY ==
--- NOTE | ~2025-02-19 | XR_ITS ---
EXAMINATION: XR SHOULDER, LEFT CLINICAL INFORMATION: pain after lifting Thurs COMPARISON: June 07, 2022. TECHNIQUE: AP external rotation, Grashey, scapular Y, and axillary views of the left shoulder. FINDINGS: There is a metallic prosthesis with a glenoid and humeral component well-seated in the osseous structures without acute cortical disruption or gross malalignment. There is no gross loosening. XR/XR shoulder LT min 2V IMPRESSION: Status post total left glenohumeral joint prosthesis/arthroplasty. Electronically signed by: Mehdi Taylor MD 02/19/2025 11:01 AM EDT
[2025-02-19 09:39] VITALS: BP 103/71; BP 124/72; PULSE 97; PULSE 99; RESP 16; TEMP 36.6; O2SAT 96; O2SAT 98; BMI 44.4
--- NOTE | 2025-02-19 10:30 | ED_ITS ---
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 Reports that she was moving some clothing that was hanging and after this she developed left shoulder pain. She denies fall or other trauma. Denies any weakness, numbness, tingling to left arm. Denies chest pain, palpitations, dyspnea. Saw her PCP yesterday who ordered outpatient x- ray. Patient states she was going to have the x-ray done today but pain was too severe. Has been taking [id number] medications at home, as well as using ice and heat with little relief. MD Complaint: joint pain Onset (ago): day(s) Pain Consistency: constant Location: left and upper extremity Severity scale (1-10): 10 Quality: aching Relieving factors: rest Exacerbating factors: range of motion Associated symptoms: denies other symptoms Related Data Home Medications ?Medication ?Instructions ?Recorded ?Confirmed oxygen-air delivery systems ##1 08/24/20 02/17/25 topiramate 100 mg tablet 100 mg PO BID 07/13/22 02/17/25 amitriptyline 100 mg tablet 100 mg PO BEDTIME 08/23/23 02/17/25 bupropion HCl 300 mg 24 hr tablet, 300 mg PO DAILY 08/23/23 02/17/25 extended release benralizumab 30 mg/mL subcutaneous 30 mg subcut Q8W 01/27/24 02/17/25 syringe (Fasenra) clonazepam 1 mg tablet 1 mg PO DAILY Anxiety 01/27/24 02/17/25 lamotrigine 200 mg tablet 200 mg PO DAILY 01/27/24 02/17/25 pantoprazole 40 mg tablet,delayed 40 mg PO BID 01/27/24 02/17/25 release simethicone 125 mg tablet 125 mg PO QID PRN GAS 01/27/24 02/17/25 tramadol 50 mg tablet 50 mg PO Q6H PRN Pain 01/27/24 02/17/25 gabapentin 400 mg capsule 400 mg PO TID 03/26/24 02/17/25 zolpidem 10 mg tablet 10 mg PO BEDTIME PRN 03/26/24 02/17/25 Previous Rx's ?Medication ?Instructions ?Recorded shower seat #1 ea 11/23/20 miscellaneous medical supply #1 ea 12/22/20 electric wheelchair #1 ea 04/30/22 blood pressure kit-extra large #1 ea 08/29/22 wheeled table with drawers #1 ea 12/05/22 adult diapers pull-ups #240 ea 02/13/23 nebulizers (AeroEclipse II #1 ea 05/15/23 Nebulizer) carboxymethylcellulose sodium 0.5 1 drp ophthalmic (eye) BID PRN dry 10/05/23 % eye drops in a dropperette eye(s) 30 days #30 ea diphenhydramine HCl 25 mg capsule 25 mg PO BEDTIME PRN sleep #30 caps 10/05/23 (Banophen) cromolyn 4 % eye drops 1 drp ophthalmic (eye) 6XD 30 days 12/18/23 #10 mL ertapenem 1 gram solution for 1 g IV DAILY #6 ea 01/30/24 injection lidocaine HCl 4 % topical ointment See Rx Instructions topical 01/31/24 (AsperFlex (lidocaine HCl)) .COMPLEX herpes zoster #100 grams albuterol sulfate 2.5 mg/3 mL 2.5 mg (3 mL) inhalation Q6H PRN 02/14/24 (0.083 %) solution for nebulization for wheezing #150 mL cetirizine 10 mg tablet 10 mg PO DAILY PRN allergy 03/09/24 symptoms 90 days #90 tabs fluticasone fur. 200 mcg-umeclid 1 inh inhalation DAILY 30 days #60 05/27/24 62.5 mcg-vilant 25 mcg ea inhalat.powder (Trelegy Ellipta) disposable gloves #200 ea 06/06/24 flushable wipes #240 ea 06/06/24 underpads (Bed Underpads) #100 ea 07/24/24 recliner with power buttons #1 ea 07/31/24 POWER LIFT RECLINER #1 ea 09/10/24 docusate sodium 100 mg capsule 100 mg PO BID #20 caps 09/22/24 (Colace) ketorolac 10 mg tablet 10 mg PO TID PRN pain 5 days #15 09/22/24 tabs polyethylene glycol 3350 17 17 g PO BID PRN constipation #238 09/22/24 gram/dose oral powder (Miralax) grams rosuvastatin 10 mg tablet 10 mg PO DAILY #90 tabs 09/30/24 chair, wheel (Wheel chair) #1 ea 10/03/24 commode (bedside commode) #1 ea 10/03/24 lidocaine 5 % topical patch 1 patch topical DAILY hip pain 10/03/24 (Lidoderm) #30 ea lubiprostone 24 mcg capsule 24 mcg PO BID #180 caps 10/08/24 diclofenac sodium 1 % topical gel 4 g topical QID #100 grams 10/09/24 acetaminophen 325 mg tablet 325 mg PO QID PRN Pain 30 days 11/12/24 #120 tabs albuterol sulfate 90 mcg/actuation 2 puff inhalation Q4H PRN Wheezing 11/12/24 aerosol inhaler #8.5 grams lactulose 10 gram/15 mL oral 10 g (15 mL) PO BEDTIME PRN 11/12/24 solution constipation 30 days #237 mL levothyroxine 50 mcg tablet 50 mcg PO DAILY@0630 #90 tabs 11/17/24 wheelchair #1 ea 11/27/24 sodium,potassium,mag sulfates 17.5 See Rx Instructions PO .COMPLEX 12/09/24 gram-3.13 gram-1.6 gram oral soln #354 mL (Suprep Bowel Prep Kit) esomeprazole magnesium 40 mg 40 mg PO DAILY #90 caps 12/30/24 capsule,delayed release azithromycin 250 mg tablet 250 mg PO 3XW 28 days #12 tabs 01/14/25 chlorhexidine gluconate 0.12 % 15 ml buccal DAILY 30 days #450 mL 01/14/25 mouthwash cholecalciferol (vitamin D3) 25 25 mcg PO DAILY #30 caps 02/11/25 mcg (1,000 unit) capsule (Vitamin D3) meloxicam 15 mg tablet 15 mg PO DAILY for pain #30 tabs 02/11/25 celecoxib 200 mg capsule (Celebrex) 200 mg PO DAILY 7 days #7 caps 02/17/25 cyclobenzaprine 5 mg tablet 5 mg PO TID PRN muscle spasm 3 02/19/25 days #9 tabs lidocaine 5 % topical patch 1 patch topical DAILY #15 ea 02/19/25 oxycodone 5 mg tablet 5 mg PO TID PRN severe pain (scale 02/19/25 score 7-10) #6 tabs Allergies Allergy/AdvReac Type Severity Reaction Status Date / Time senna AdvReac Intermediate Dizziness Verified 02/19/25 09:50 Review of Systems Review of Systems: Yes all other systems are reviewed and are negative Constitutional: Constitutional: Reports as per HPI [facility] Past Medical History Medical History (Updated 02/19/25 @ 12:20 by Geeta Ford NP) Pre-op evaluation Polyarticular osteoarthritis Avascular necrosis of bones of both hips Dysuria Morbid obesity Avascular necrosis Physical exam Well woman exam RSV (acute bronchiolitis due to respiratory syncytial virus) Chest pain Palpitations URI (upper respiratory infection) Snoring Encounter for screening for malignant neoplasm of colon Lumbar pain Urinary incontinence Low blood pressure Allergic reaction UTI (urinary tract infection) Palpitations Morbid obesity with BMI of 40.0-44.9, adult Epigastric abdominal pain Oxygen dependent Hypothyroidism Hypersomnia ILD (interstitial lung disease) ROB on CPAP History of ESBL E. coli infection Obstructive sleep apnea Moderate recurrent major depression Urinary retention Acute and chronic respiratory failure with hypoxia COVID-19 Lupus (systemic lupus erythematosus) Polyarthralgia Neck mass Eosinophilia Severe asthma Asthma-COPD overlap syndrome Trigger finger of right hand Recurrent UTI Tachycardia Obesity Lumbar degenerative disc disease GERD (gastroesophageal reflux disease) Hemangioma Hypovitaminosis D Bipolar 1 disorder Depression with anxiety Insomnia COPD (chronic obstructive pulmonary disease) Surgical History Hx of hand surgery Hx of cardiac catheterization History of esophagogastroduodenoscopy (EGD) History of cystocele History of colonoscopy History of shoulder surgery History of carpal tunnel release History of hysterectomy History of section History of tonsillectomy Family History Family History Father Prostate cancer Mother No problems noted. Sister Nasopharyngeal cancer Social History Social History Household Members: None Household Members Other:: 1 Housing: Apartment Do you presently have visiting nurse or other home services: Yes (Has [employer] WORKER) Alcohol intake: never Comment: sleeping Patient Tobacco Use Status: Former Tobacco user Years Smoked: 14 +/- Smoked in Last 30 Days: No e-Cigarette/Vaping Use: Never Used Second Hand Smoke Exposure: No Use of substances other than those prescribed or required for medical reasons: No Advance Directives: Yes Advance Directives on File: Yes Advance Directives Date on File: 01/08/21 service: No Current occupational status: disabled 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 Blood pressure normal. Heart rate normal. Respiratory rate normal. Temperature normal. Oxygen saturation normal. Const: General: cooperative, healthy appearing and no acute distress Nutritional Appearance: obese Orientation/consciousness: oriented to person, oriented to place, oriented to time and patient oriented x3 Limitations: language barrier HEENT: Head: Yes normocephalic and Yes atraumatic Ears: external ears normal General nose exam: Normal external nose present Face and sinus: Yes face symmetric Mouth: oropharynx normal and moist mucous membranes Throat: Yes uvula midline Eyes: Pupils: Equal, round and reactive pupils present Neck: Neck: Yes normal visual inspection and Yes supple Resp: Effort & Inspection: normal respiratory effort and able to speak in complete sentences Auscultation: clear to auscultation bilaterally Cardio: Rate: regular rate Rhythm: regular rhythm Heart sounds: S1 normal heart sound present and S2 normal heart sound present GI: Palpation (GI): Soft to palpation and nontender Auscultation: normoactive bowel sounds : General: Yes no CVA tenderness Back/Spine/Pelvis: Back: no CVA tenderness Skin: General skin exam: elasticity normal and turgor normal Neuro: General: oriented to person, oriented to place, oriented to time, patient oriented x3, moves all extremities, no focal motor deficits and CN's II- XI intact bilaterally Cranial nerves: Yes Equal, round and reactive pupils present Cognition (Neuro): normal cognition Extrem: General: Yes full ROM, Yes no pedal edema and Yes no calf tenderness Left upper extremity: shoulder/upper arm Details: inspection abnormal, tenderness Location: other (diffuse) and abnormal ROM Details: held in an abnormal fashion Details: in ADduction and pain with active ROM (ROM limited in all directions due to pain) Details: in ADduction, in ABduction, in extension, in flexion, in internal rotation and external rotation-; no swelling and hand Details: vascular exam Details: radial pulse present and normal capillary refill Psych: Mental Status: mental status grossly normal Affect: normal affect Thought process: Normal thought process present Medications Administered Discontinued Medications Generic Name Dose Route Start Last Admin Trade Name Freq PRN Reason Stop Dose Admin Cyclobenzaprine HCl 10 mg 02/19/25 11:08 02/19/25 11:28 Cyclobenzaprine Hcl 10 Mg Tablet PO 02/19/25 11:09 10 mg ONCE ONE Administration Oxycodone HCl 5 mg 02/19/25 11:08 02/19/25 11:28 Oxycodone Hcl Immed Release 5 Mg Tablet PO 02/19/25 11:09 5 mg ONCE ONE Administration Medical Decision Making Medical Decision Making MDM Narrative: Patient is a 65-year-old Citizen [place]-speaking female with history of left shoulder arthroplasty, fibromyalgia, osteoarthritis, CAD, ROB, interstitial lung disease, asthma presenting in the emergency department with complaint of left shoulder pain since . On exam patient is awake, A+Ox3, VS WNL, afebrile, normal neurological exam without focal deficits, physical exam findings as above. Given reported symptoms and physical exam findings, initial differential includes but is not limited to left shoulder strain, rotator cuff injury. Less likely fracture or dislocation as patient denies trauma, however, will obtain x- ray ordered by outpatient provider. X-ray notable for no acute fractures, s/p arthroplasty. My interpretation is in agreement with the radiologist's interpretation. Results discussed with patient and all questions answered. Patient reports significant improvement in pain after medications given in the emergency department. 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 Will send prescription for Flexeril as well as a few oxycodone until pain improves. Advised Tylenol ibuprofen. Follow up with PCP, Orthopedics if symptoms do not improve. Return precautions discussed. Patient verbalized understanding of and agreement with plan. In-person geometrician was utilized for all interactions, assessments, and discussions. Differential Diagnosis Differential Diagnoses: The differential diagnosis associated with the presentat ion includes As per [facility] Admission/Observation Consideration of admission/observation: Escalation of care including admission/observation considered Patient would have been admitted to the hospital had their work up had any findings where hospital admission was appropriate and their clinical presentation warranted hospital admission. Independent Interpretation I performed an independent interpretation of an: Plain X-Ray Interpretation: X-ray notable for no acute fractures, s/p arthroplasty. Radiology Impression Discussion of test interpretation with radiology: I have reviewed the radiologist's reading. Radiologist Impression: XR/XR shoulder LT min 2V IMPRESSION: Status post total left glenohumeral joint prosthesis/arthroplasty. External Record Review External record reviewed: Inpatient record, Office record and Outpatient record Prescription Management I considered prescription management with: Pain Medication and Other Discharge Plan Discharge Clinical Impression: Left shoulder strain Patient Disposition: Home, Self-Care Instructions: Muscle Strain (DC), Rotator Cuff Injury (ED), Rotator Cuff Injury Exercises (DC) Additional Instructions: You have been evaluated in the emergency department today for shoulder pain. Your evaluation did not find evidence of medical conditions requiring emergent intervention at this time. Please rest and ice your shoulder and resume normal activities as tolerated. We recommend you take 600mg ibuprofen every 6 hours or 650mg Tylenol every 6 hours as needed for pain. If needed you can alternate these medications as they take 1 medication every 3 hours. For instance at noon take ibuprofen, then at 3:00 p.m. take Tylenol, then at 6:00 p.m. take ibuprofen. You are being prescribed a muscle relaxer which you can use every 8 hours. Do not drink alcohol while taking this medication as it can cause excessive drowsiness. You have been prescribed a few oxycodone for severe pain. Please schedule an appointment for follow-up with your primary care provider this week. Return to the emergency department if you experience worsening pain, numbness, tingling, change of color in your arm, or any other concerning symptoms. Follow up with orthopedics if your symptoms do not improve over the next 1-2 weeks. Call their office to schedule an appointment, they will not call you. Prescriptions: New cyclobenzaprine 5 mg tablet 5 mg PO TID PRN (Reason: muscle spasm) 3 Days Qty: 9 0RF lidocaine 5 % adhesive patch,medicated 1 patch topical DAILY Qty: 15 0RF Rx Instructions: leave on most painful area for up to 12 hrs oxycodone 5 mg tablet 5 mg PO TID PRN (Reason: severe pain (scale score 7-10)) Qty: 6 0RF Rx Instructions: Partial Fill upon patient request. No Action (DME) shower seat See Rx Instructions .Route .MEDSUPPLY Qty: 1 0RF Rx Instructions: As directed (DME) miscellaneous medical supply Misc See Rx Instructions .ROUTE .MEDSUPPLY Qty: 1 0RF Rx Instructions: OVERBED TABLE (DME) electric wheelchair See Rx Instructions .Route .MEDSUPPLY Qty: 1 0RF Rx Instructions: As directed (DME) wheeled table with drawers See Rx Instructions .Route .MEDSUPPLY Qty: 1 0RF Rx Instructions: As directed (DME) adult diapers pull-ups 2Xlarge See Rx Instructions .Route .MEDSUPPLY Qty: 240 6RF Rx Instructions: As directed (DME) nebulizers [AeroEclipse II Nebulizer] [facility] See Rx Instructions .Route Qty: 1 0RF Rx Instructions: As directed cromolyn 4 % drops 1 drp ophthalmic (eye) 6XD 30 Days Qty: 10 1RF albuterol sulfate 2.5 mg /3 mL (0.083 %) solution for nebulization 2.5 mg inhalation Q6H PRN (Reason: for wheezing) Qty: 150 11RF cetirizine 10 mg tablet 10 mg PO DAILY PRN (Reason: allergy symptoms) 90 Days Qty: 90 1RF Trelegy Ellipta 200-62.5-25 mcg blister with device 1 inh inhalation DAILY 30 Days Qty: 60 12RF (DME) flushable wipes See Rx Instructions .Route .MEDSUPPLY Qty: 240 6RF Rx Instructions: As directed (DME) disposable gloves Misc See Rx Instructions .Route Qty: 200 6RF Rx Instructions: As directed (DME) underpads [Bed Underpads] Pad See Rx Instructions .Route Qty: 100 6RF Rx Instructions: As directed ([facility] recliner with power buttons See Rx Instructions .Route .MEDSUPPLY Qty: 1 0RF Rx Instructions: As directed ([facility]) POWER LIFT RECLINER See Rx Instructions .Route .MEDSUPPLY Qty: 1 0RF Rx Instructions: As directed rosuvastatin 10 mg tablet 10 mg PO DAILY Qty: 90 3RF (DME) bedside commode Kit See Rx Instructions .Route Qty: 1 0RF Rx Instructions: As directed ([facility]) Wheel chair Kit See Rx Instructions .Route Qty: 1 0RF Rx Instructions: As directed lubiprostone 24 mcg capsule 24 mcg PO BID Qty: 180 3RF levothyroxine 50 mcg tablet 50 mcg PO DAILY@0630 Qty: 90 0RF (DME) wheelchair See Rx Instructions .Route .MEDSUPPLY Qty: 1 0RF Rx Instructions: As directed esomeprazole magnesium 40 mg capsule,delayed release(DR/EC) 40 mg PO DAILY Qty: 90 2RF cholecalciferol (vitamin D3) [Vitamin D3] 25 mcg (1,000 unit) capsule 25 mcg PO DAILY Qty: 30 1RF meloxicam 15 mg tablet 15 mg PO DAILY Qty: 30 1RF lamotrigine 200 mg tablet 200 mg PO DAILY tramadol 50 mg tablet 50 mg PO Q6H PRN (Reason: Pain) pantoprazole 40 mg Tablet,Delayed Release (Dr/Ec) 40 mg PO BID simethicone 125 mg Tablet 125 mg PO QID PRN (Reason: GAS) Fasenra 30 mg/mL syringe 30 mg subcut Q8W clonazepam 1 mg tablet 1 mg PO DAILY ertapenem 1 gram recon soln 1 g IV DAILY Qty: 6 0RF docusate sodium [Colace] 100 mg capsule 100 mg PO BID Qty: 20 0RF polyethylene glycol 3350 [Miralax] 17 gram/dose powder 17 g PO BID PRN (Reason: constipation) Qty: 238 0RF ketorolac 10 mg tablet 10 mg PO TID PRN (Reason: pain) 5 Days Qty: 15 0RF Rx Instructions: Tolerated IM or IV in department ([facility]) oxygen-air delivery systems Device See Rx Instructions .ROUTE .MEDSUPPLY Qty: 1 Rx Instructions: As directed carboxymethylcellulose sodium 0.5 % dropperette 1 drp ophthalmic (eye) BID PRN (Reason: dry eye(s)) 30 Days Qty: 30 2RF diphenhydramine HCl [Banophen] 25 mg capsule 25 mg PO BEDTIME PRN (Reason: sleep) Qty: 30 0RF AsperFlex (lidocaine HCl) 4 % ointment See Rx Instructions topical .COMPLEX Qty: 100 0RF Rx Instructions: use 1-2 inch ointment and apply up to 3 times daily on L shoulder topically; topiramate 100 mg tablet 100 mg PO BID (DME) blood pressure kit-extra large Kit See Rx Instructions .Route Qty: 1 0RF Rx Instructions: As directed amitriptyline 100 mg tablet 100 mg PO BEDTIME bupropion HCl 300 mg tablet extended release 24 hr 300 mg PO DAILY zolpidem 10 mg tablet 10 mg PO BEDTIME PRN gabapentin 400 mg capsule 400 mg PO TID sodium,potassium,mag sulfates [Suprep Bowel Prep Kit] 17.5-3.13-1.6 gram recon soln See Rx Instructions PO .COMPLEX Qty: 354 0RF Rx Instructions: DILUTE; drink 1/2 at 6-8 pm and half at 11 PM- 1AM celecoxib [Celebrex] 200 mg capsule 200 mg PO DAILY 7 Days Qty: 7 0RF azithromycin 250 mg tablet 250 mg PO 3XW 28 Days Qty: 12 1RF Rx Instructions: Take 1 tablet on Monday/Monday/Monday chlorhexidine gluconate 0.12 % mouthwash 15 ml buccal DAILY 30 Days Qty: 450 0RF acetaminophen 325 mg tablet 325 mg PO QID PRN (Reason: Pain) 30 Days Qty: 120 2RF albuterol sulfate 90 mcg/actuation HFA aerosol inhaler 2 puff inhalation Q4H PRN (Reason: Wheezing) Qty: 8.5 11RF lactulose 10 gram/15 mL solution 10 g PO BEDTIME PRN (Reason: constipation) 30 Days Qty: 237 2RF diclofenac sodium 1 % gel 4 g topical QID Qty: 100 4RF Rx Instructions: apply to knees and hands 4 times a day lidocaine [Lidoderm] 5 % adhesive patch,medicated 1 patch topical DAILY Qty: 30 0RF Rx Instructions: leave on most painful area for up to 12 hrs Referrals: [facility] Surgeons [Provider Group] - 1 week (L shoulder pain, ? rotator cuff injury, hx arthroplasty) Print Language: Citizen Of [place]
[2025-02-19] MEDS: oxyCODONE HCl Immed Release 5 MG TABLET PO (11:28)
[2025-02-19] MEDS: Cyclobenzaprine HCl 10 MG TABLET PO (11:28)
[2025-02-19 12:00] VITALS: BP 107/61; PULSE 100; RESP 18; TEMP 36.2; O2SAT 98
--- OUTSIDE RECORDS SUMMARY | 2025-02-19 12:07 | XMS_ITS | Data Portability ---
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 [email or web address] Not available 08/26/2024 20:23:21 Plan of Treatment Reminders Order Date Submit Date Provider Last Modified By Organization Details Last Modified Time Details Appointments None recorded. Lab culture, urine 2023 [facility] (Centralized Electronic Ordering - All Locations), Patient Can Go To The Location Of Their Choice, [id number] 10:06:26 urinalysis, dipstick 2023 [email or web address] [facility], [address] [place] [address], [id number] 20:23:24 urinalysis, dipstick 2021 022 [email or web address] [facility], [address] [place] [address], [id number] 11:28:27 unlisted lab - urinalysis w/reflex culture 2021 022 [place] [facility] (Centralized Electronic Ordering - All Locations), Patient Can Go To The Location Of Their Choice, [facility] [place] 19:05:47 Referral None recorded. Procedures None recorded. Surgeries None recorded. Imaging None recorded. Medication Orders cefpodoxime 200 mg tablet 2023 024 [facility] #[id number], [address] [place], [address], 18:25:11 prednisone 50 mg tablet 2021 022 [facility] #[id number], [address] [place], [address], 11:38:43 prednisone 20 mg tablet 2021 [email or web address] Not available 11:55:52 Macrobid 100 mg capsule 2021 [facility] #[id number], [address] [place], [address], 11:32:24 Pyridium 100 mg tablet 2021 [facility] #[id number], [address] [place], [address], 11:32:24 Patient TargetsNo targets recorded. Patient InstructionsNo [...] RE special requests NONE Reflex ed from [id number] Not Available [facility] (Centralized Electronic Ordering [...] Leukocytes ++ Not Available [facility] - [facility] [address] [place] [address], [phone] 02/19/2022 11:27:23 02/20/20 22 02/19/2022 urina lysis , dipst ick Nitrite positi ve Not Available [facility] - [facility] [address] [place] [address], [id number] 02/19/2022 11:27:23 02/20/20 22 02/19/2022 urina lysis , dipst ick Ketone 1+ Not Available Main - [facility] [address] [place] [address], [id number] 02/19/2022 11:27:23 08/26/20 24 08/29/2024 URINE CULTU RE,CO MPREH ENSIV E urine culture,comp rehensive Final report Not Available [facility] ([facility]) [address] [facility], [place], [address], 08/29/2024 10:06:37 08/26/20 24 08/29/2024 URINE CULTU RE,CO MPREH ENSIV E result 1 COMMEN T No growt h in 36 - 48 hours . Not Available [facility] ([facility]) [address] [facility], [place], [address], 08/29/2024 10:06:37 Result Notes None recorded. Medical [...] /min 128 mm[Hg] 88 mm[Hg] Not Available [employer] production 4 18:22:11 Date Recorded Heart [...] /min 99 % 99 % 97.9 [degF] 59322.0 56 g 154.94 cm 20 /min 154.94 cm 99 % 99 % 20 /min 90 /min 97.9 [degF] 36524.0 56 g 118 mm[Hg] 78 mm[Hg] 118 [...] 120 mm[Hg] 70 mm[Hg] Eden Coronado MD [address] [place] [address],[address], [place], [address] [facility] [employer] [facility] 2 11:36:33 Date [...] Code Diagnosis Note 1126 Surya Acevedo MD [address] [phone] 02/18/2022 14:31:32 07/07/2022 13:35:00 Periorbital edema [id number] H05.229 62yo woman evaluated for months of [...] changes ot therapy. 1140 Eden Coronado MD [address] [address] 02/19/2022 09:58:40 07/05/2022 15:20:25 Dysuria [id number] R30.9 Pt with hx prior UTIs (though [...] assessment and plan as documented by the emergency medicine physician. I provided real time medical direction for this encounter and was immediatel y available to provide additional phone based assistance as needed. Periorbital edema [id number] H05.229 Symptoms persist since last [facility] visit, continuing on allergy tx. urine dip today w/o protein to suggest nephrotic syndomre, recommend PCP f/up for allergy testing/tx . Urine dip also w/ trace ketones but no hx diabetes and normal PO intake, likely contaminat ion from adjacent test strip. F/up formal urinalysis 1495 Kenneth Castellon MD Main - [facility] [address] [place] [phone] 03/10/2022 11:36:32 07/06/2022 14:33:02 Pruritic rash [id number] L28.2 4072 Braydon Recio MD Main - [facility] [address] [place] [phone] 07/18/2022 17:25:40 07/22/2022 13:31:39 Pruritic rash [id number] L28.2 96986 Gerardo Lunsford MD Main - [facility] [address] [place] [phone] 08/26/2024 18:22:09 08/26/2024 21:57:44 Acute urinary tract infection [id number] N39.0 Health Concerns Section Related Observation LastModified by Organization Detai ls LastModified Time None Recorded Concern Status LastModified by Organization Details LastModified Time None Recorded Advance Directives Directive None Recorded Payers Encounter Date Sequence Insurance Name Policy Number Policy Burnham Covered Member ID Burnham Member ID Guarantor Name 02/18/[address] [facility] - DOS PRIOR TO 2023 - DUAL ELIGIBLE (MEDICARE REPLACEMENT/ADV ANTAGE - HMO) Gracy Mead [id number] Gracy Mead 02/19/[address] [facility] - DOS PRIOR TO 2023 - DUAL ELIGIBLE (MEDICARE REPLACEMENT/ADV ANTAGE - HMO) Gracy Mar Mead [id number] Gracy Mar Mead 03/10/[address] [facility] - DOS PRIOR TO 2023 - DUAL ELIGIBLE (MEDICARE REPLACEMENT/ADV ANTAGE - HMO) Gracy Mar Mead [id number] Gracy Mar Mead 07/18/[address] [facility] - DOS PRIOR TO 2023 - DUAL ELIGIBLE (MEDICARE REPLACEMENT/ADV ANTAGE - HMO) Gracy Mar Mead [id number] Gracy Mar Mead 08/26/[address] [facility] - DOS ON OR AFTER 2023 - DUAL ELIGIBLE - RETIREMENT OPTIONS AND ONE CARE (MEDICARE REPLACEMENT/ADV ANTAGE - HMO) Gracy Mar Mead [id number] Gracy Mar Mead Notes Date Note Type [...] for and was d/c in SEP . Webbing Inspector Visit Summarydispatched to the above location for [...] and are as documented. picture sent to [facility]. [facility] contacted and states to keep using her prescribed eye drops and that she should follow up with her doctor for further treatment. at this time red flags explained to the patient, patient advised to seek treatment if any of the red flags arise. Surya Acevedo MD [address], [place], [address], [facility] 02/18/2022 14:35:29 02/19/2022 text/html Per request: Anna alcantara seen today 02/18 for itchy/swollen eyes, no other concerns were voiced during visit.Member called back in stating she needed another [facility] for tomorrow 02/19.Member was treated for a UTI 1.5 weeks ago with an ABX. About 4 days ago member states she started with urinary symptoms again. Has c/o pain and burning with urination, urine is dark and concentrated with an odor. Has chill but denies fever. Webbing Inspector documentation:Patient is a 62 year old female [...] Leukocytes, Nitrates, PH, KET. Urine brought to [facility] for culture. Vital signs obtained and all within normal limits. Red flags discussed. Consulted with Dr. Coronado. Patient is to follow up with PCP on Monday regarding her signs, symptoms and todays visit. Dr. Coronado prescribed the patient Macrobid and Pyridium, prescriptions sent to patients pharmacy for pickup. Patient to contact PCP regarding urine culture results. Contact [facility] for a re-visit if symptoms persist. Contact 1 for any discussed red flags or other emergencies. Eden Coronado MD [address], [place], [address], [facility] 02/19/2022 16:34:18 03/10/2022 text/html HPI: mbr with complaints of wide spread/painful rash, states watery eyes, no open wounds, pustules reported. denies any SOB/N/V or difficulty swallowing. requesting [facility] vist. Protocol Used: Rash or Redness - Widespread Protocol-Based Disposition: Consider [facility], [facility] Community Clinician, or PCP visit within 24 hours Positive Triage Question: * SEVERE itching (i.e., interferes with sleep, normal activities or school) Negative Triage Questions: * Bloody crusts on lips or sores in mouth * Face becomes swollen * Sore throat ...................... ...................... ...................... ...................... ...................... ...................... ......... Webbing Inspector Note: dispatched to the above location for a female patient with a rash and itchy eyes. upon arrival patient was located sitting in a chair in her home. patient is alert and oriented X4. patient is [place] speaking with little Gambian. family on scene to interpret. at this [...] time vitals obtained and are as documented. [facility] contacted and states to give 40 MG [...] ......... Disposition: Fulfilled Kenneth Castellon MD [address] [facility],[address], [place], [address], [facility] 03/11/2022 10:35:01 07/18/2022 text/html [facility] Nursing Assessment: [...] ...................... ...................... ...................... ...................... ...................... ...................... ......... Webbing Inspector Note: Sent to a call for a pt complaining of a rash on face and chest. SC8 arrives on scene, pt is alert and oriented. Airway is patent. Pt primarily speaks [place], family serves as staff interpreter. Pt was prescribed ASA daily on 07/14, [...] and fluid. Picture of rash uploaded to [facility]. BP:118/78, P:90, RR:18, SpO2:98% RA, T:97.9; Lung sounds: clear bilaterally, no stridor; Abdomen: soft, non-tender; Skin: pink, warm, dry with the exception of rash. [facility] orders Diphenhydramine 50mg IM. Diphenhydramine administered without incident. Red flags discussed. Pt/family has no further questions. ...................... ...................... ...................... ...................... ...................... ...................... ......... 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 Will place referral for UTI w/u.verified info: Susana PRADO Webbing Inspector Organization Information for Pedro [facility] [employer] Legal Name: [employer] Address: [address] [place] [address], [place] [address], Treating Plant Pumper: Henry Monreal MD [facility] No.: [id number] Webbing Inspector POC Test Results from [facility] Urine Dipstick (18:19:27) Urine leukocytes: 3+ MARCOS Urine nitrites: + NIT Urine urobilinogen: - URO Urine protein: 2+ PRO Urine pH: 6.0 pH Urine blood: trace BLO Urine specific gravity: 1.010 SG Urine ketones: - KET Urine bilirubin: - JOSI Urine glucose: - GLU ...................... ...................... ...................... ...................... ...................... ...................... ......... Webbing Inspector Note From Pedro Ferrer: Miss Ulrich is [...] is sent to [facility]. I consultative the [facility] will send prescription to pharmacy. 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 I educated [...] were given the opportunity to ask questions. [facility] Lab Orders: culture, urine: Performed ...................... ...................... ...................... ...................... ...................... ...................... ......... Disposition: Liban Lunsford MD [address] [facility], [place], [address], [facility] 08/26/2024 20:23:43 OBGyn Episode No OBEpisode recorded.
[2025-02-19 12:43] VITALS: BP 107/61; PULSE 100; RESP 18; TEMP 36.2; O2SAT 98
== END 2025-02-19 12:46 | disposition home or self-care (01) ==
PROVIDERS: Emergency Provider Emergency Medicine; PCP Internal Medicine
DX: S46.912A Strain of unspecified muscle, fascia and tendon at shoulder and upper arm level, left arm, initial encounter (principal); X58.XXXA Exposure to other specified factors, initial encounter; Y93.9 Activity, unspecified; Y92.9 Unspecified place or not applicable; Y99.9 Unspecified external cause status; M25.512 Pain in left shoulder
CPT/HCPCS: 73030; 99283; 99284

== ENCOUNTER → 2025-02-19 10:30 | Outpatient (BNV) | payer OTHER, SELFPAY | PROVIDERS: Emergency Provider Emergency Medicine; PCP Internal Medicine; Visit Provider Radiology Diagnostic Radiology | DX: M25.512 Pain in left shoulder (principal) | CPT/HCPCS: 73030 ==

== ENCOUNTER 2025-02-28 09:13 | Outpatient (REF) | payer OTHER, SELFPAY ==
--- NOTE | ~2025-02-28 | XR_ITS ---
EXAMINATION: XR SHOULDER, LEFT CLINICAL INFORMATION: M25.512 - Pain in left shoulder COMPARISON: 02/19/2025. TECHNIQUE: AP external rotation, Grashey, scapular Y, and axillary views of the left shoulder. 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 Humeral and glenoid components appear well seated, intact, in anatomic alignment. No periprosthetic fracture or complication identified. There is similar moderate superior surface spurring of the AC joint. There is mild undersurface spurring. There is an unchanged subacromial osteophyte present. Remainder of the soft tissue and bony structures appear normal. XR/XR shoulder LT min 2V IMPRESSION: Total left shoulder arthroplasty without complication evident. Stable examination without change. Electronically signed by: John Flower MD 02/28/2025 03:28 PM EDT
--- NOTE | 2025-02-28 09:18 | ECG_ITS ---
Test Reason : pre op Blood Pressure : */* mmHG Vent. Rate : 93 BPM Atrial Rate : 93 BPM P-R Int : 156 ms QRS Dur : 94 ms QT Int : 352 ms P-R-T Axes : 63 9 24 degrees QTcB Int : 437 ms Normal sinus rhythm Normal ECG When compared with ECG of 31-May-2024 22:09, Questionable change in QRS axis Referred By: Farideh Marquez Electronically Signed By: Grady Thakkar
[2025-02-28 09:50] LABS: MANUAL DIFF FLAG NO
--- OUTSIDE RECORDS SUMMARY | 2025-02-28 09:54 | XMS_ITS | Data Portability ---
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 [email or web address] Not available 08/26/2024 20:23:21 Plan of Treatment Reminders Order Date Submit Date Provider Last Modified By Organization Details Last Modified Time Details Appointments None recorded. Lab culture, urine 2023 MAGDY [facility] (Centralized Electronic Ordering - All Locations), Patient Can Go To The Location Of Their Choice, [id number] 10:06:26 urinalysis, dipstick 2023 [email or web address] [facility], [address] [place] [address], [phone] 20:23:24 urinalysis, dipstick 2021 022 [email or web address] [facility], [address] [place] [address], [phone] 11:28:27 unlisted lab - urinalysis w/reflex culture 2021 022 [place] [facility] (Centralized Electronic Ordering - All Locations), Patient Can Go To The Location Of Their Choice, [facility] 19:05:47 Referral None recorded. Procedures None recorded. Surgeries None recorded. Imaging None recorded. Medication Orders cefpodoxime 200 mg tablet 2023 024 [facility] #[id number], [address] [place], [address], 18:25:11 prednisone 50 mg tablet 2021 022 [facility] #[id number], [address] [place], [address], 11:38:43 prednisone 20 mg tablet 2021 [email or web address] Not available 11:55:52 Macrobid 100 mg capsule 2021 [facility]arm[facility] #[id number], [address] [place], [address], 11:32:24 Pyridium 100 mg tablet 2021 [facility] #[id number], [address] [place], [address], 11:32:24 Patient TargetsNo targets recorded. Patient InstructionsNo [...] RE special requests NONE Reflex ed from [id number] Not Available [facility] (Centralized Electronic Ordering [...] Leukocytes ++ Not Available [facility] - [facility] [address] [place] [address], [phone] 02/19/2022 11:27:23 02/20/20 22 02/19/2022 urina lysis , dipst ick Nitrite positi ve Not Available [facility] - [facility] [address] [place] [address], [address] 02/19/2022 11:27:23 02/20/20 22 02/19/2022 urina lysis , dipst ick Ketone 1+ Not Available [facility] - [facility] [address] [place] [address], [address] 02/19/2022 11:27:23 08/26/20 24 08/29/2024 URINE CULTU RE,CO MPREH ENSIV E urine culture,comp rehensive Final report Not Available [facility] ([facility] [place] [facility] [address] [facility], [place], [address], 08/29/2024 10:06:37 08/26/20 24 08/29/2024 URINE CULTU RE,CO MPREH ENSIV E result 1 COMMEN T No growt h in 36 - 48 hours . Not Available [facility] ([facility] [place] [facility] [address] [facility], [place], [address], 08/29/2024 10:06:37 Result Notes None recorded. Medical [...] /min 128 mm[Hg] 88 mm[Hg] Not Available [employer] - production 4 18:22:11 Date Recorded Heart [...] /min 99 % 99 % 97.9 [degF] 23267.0 56 g 154.94 cm 20 /min 154.94 cm 99 % 99 % 20 /min 90 /min 97.9 [degF] 21282.0 56 g 118 mm[Hg] 78 mm[Hg] 118 [...] 120 mm[Hg] 70 mm[Hg] Eden Coronado MD [address] [place] [address],[address], [place], [address] [facility] [employer] [facility] [employer] [facility] 2 11:36:33 Date Recorded Respiratory rate Heart [...] Code Diagnosis Note 1126 Surya Acevedo MD [address] [phone] 02/18/2022 14:31:32 07/07/2022 13:35:00 Periorbital edema 80406293 H05.229 62yo woman evaluated for months of [...] changes ot therapy. 1140 Eden Coronado MD [address] [address] 02/19/2022 09:58:40 07/05/2022 15:20:25 Dysuria 45086853 R30.9 Pt with hx prior UTIs (though [...] assessment and plan as documented by the occupational medicine physician. I provided real time medical direction for this encounter and was immediatel y available to provide additional phone based assistance as needed. Periorbital edema [id number] H05.229 Symptoms persist since last [facility] visit, continuing on allergy tx. urine dip today w/o protein to suggest nephrotic syndomre, recommend PCP f/up for allergy testing/tx . Urine dip also w/ trace ketones but no hx diabetes and normal PO intake, likely contaminat ion from adjacent test strip. F/up formal urinalysis 1495 Kenneth Castellon MD Main - [facility] [address] [place] [phone] 03/10/2022 11:36:32 07/06/2022 14:33:02 Pruritic rash [id number] L28.2 4072 Braydon Recio MD Main - [facility] [address] [place] [address] 07/18/2022 17:25:40 07/22/2022 13:31:39 Pruritic rash 84217246 L28.2 84423 Gerardo Lunsford MD Main - [facility] [address] [place] [address] 08/26/2024 18:22:09 08/26/2024 21:57:44 Acute urinary tract infection 088176669 N39.0 Health Concerns Section Related Observation LastModified by Organization Detai ls LastModified Time None Recorded Concern Status LastModified by Organization Details LastModified Time None Recorded Advance Directives Directive None Recorded Payers Encounter Date Sequence Insurance Name Policy Number Policy Burnham Covered Member ID Burnham Member ID Guarantor Name 02/18/2022 1 [facility] - DOS PRIOR TO 2023 - DUAL ELIGIBLE (MEDICARE REPLACEMENT/ADV ANTAGE - HMO) Gracy Mead [id number] Gracy Mead 02/19/2022 1 [facility] - DOS PRIOR TO 2023 - DUAL ELIGIBLE (MEDICARE REPLACEMENT/ADV ANTAGE - HMO) Gracy Mar Mead [id number] Gracy Mar Mead 03/10/2022 1 [facility] - DOS PRIOR TO 2023 - DUAL ELIGIBLE (MEDICARE REPLACEMENT/ADV ANTAGE - HMO) Gracy Mar Mead [id number] Gracy Mar Mead 07/18/2022 1 [facility] - DOS PRIOR TO 2023 - DUAL ELIGIBLE (MEDICARE REPLACEMENT/ADV ANTAGE - HMO) Gracy Mar Mead [id number] Gracy Mar Mead 08/26/2024 1 [facility] - DOS ON OR AFTER 2023 - DUAL ELIGIBLE - [employer] OPTIONS AND ONE C[employer] (MEDICARE REPLACEMENT/ADV ANTAGE - HMO) Gracy Mar Mead [id number] Gracy Mar Mead Notes Date Note Type [...] for and was d/c in SEP . Health Science Specialist Visit Summarydispatched to the above location for [...] and are as documented. picture [place] [facility] [facility] contacted and states to keep using her prescribed eye drops and that she should follow up with her doctor for further treatment. at this time red flags explained to the patient, patient advised to seek treatment if any of the red flags arise. Surya Acevedo MD [address], [place], [address], [facility] 02/18/2022 14:35:29 02/19/2022 text/html Per request: Anna alcantara seen today 02/18 for itchy/swollen eyes, no other concerns were voiced during visit.Member called back in stating she needed another [facility] for tomorrow 02/19.Member was treated for a UTI 1.5 weeks ago with an ABX. About 4 days ago member states she started with urinary symptoms again. Has c/o pain and burning with urination, urine is dark and concentrated with an odor. Has chill but denies fever. Health Science Specialist documentation:Patient is a 62 year old female [...] Leukocytes, Nitrates, PH, KET. Urine brought to [facility] for culture. Vital signs obtained and all within normal limits. Red flags discussed. Consulted with Dr. Coronado. Patient is to follow up with PCP on Monday regarding her signs, symptoms and todays visit. Dr. Coronado prescribed the patient Macrobid and Pyridium, prescriptions sent to patients pharmacy for pickup. Patient to contact PCP regarding urine culture results. Contact [facility] for a re-visit if symptoms persist. Contact 1 for any discussed red flags or other emergencies. Eden Coronado MD [address], [place], [address], [facility] 02/19/2022 16:34:18 03/10/2022 text/html HPI: mbr with complaints of wide spread/painful rash, states watery eyes, no open wounds, pustules reported. denies any SOB/N/V or difficulty swallowing. requesting [facility] vist. Protocol Used: Rash or Redness - Widespread Protocol-Based Disposition: Consider [facility], [facility] Community Clinician, or PCP visit within 24 hours Positive Triage Question: * SEVERE itching (i.e., interferes with sleep, normal activities or school) Negative Triage Questions: * Bloody crusts on lips or sores in mouth * Face becomes swollen * Sore throat ...................... ...................... ...................... ...................... ...................... ...................... ......... Health Science Specialist Note: dispatched to the above location for a female patient with a rash and itchy eyes. upon arrival patient was located sitting in a chair in her home. patient is alert and oriented X4. patient is Swedish speaking with little Telugu. family on scene to interpret. at this [...] time vitals obtained and are as documented. [facility] contacted and states to give 40 MG [...] ......... Disposition: Fulfilled Kenneth Castellon MD [address] [facility],[address], [place], [address], [facility] 03/11/2022 10:35:01 07/18/2022 text/html [facility] Nursing Assessment: [...] ...................... ...................... ...................... ...................... ...................... ...................... ......... Health Science Specialist Note: Sent to a call for a pt complaining of a rash on face and chest. SC8 arrives on scene, pt is alert and oriented. Airway is patent. 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 Pt was prescribed ASA daily on 07/14, [...] and fluid. Picture of rash uploaded to [facility]. BP:118/78, P:90, RR:18, SpO2:98% RA, T:97.9; Lung sounds: clear bilaterally, no stridor; Abdomen: soft, non-tender; Skin: pink, warm, dry with the exception of rash. [facility] orders Diphenhydramine 50mg IM. Diphenhydramine administered without incident. Red flags discussed. Pt/family has no further questions. ...................... ...................... ...................... ...................... ...................... ...................... ......... 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 Will place referral for UTI w/u.verified info: Susana PRADO Health Science Specialist Organization Information for [employer] Legal Name: [facility] Transportation Address: [address] [place] [address], [place] [address], Operating Systems Programmer: Henry Monreal MD [facility] No.: [id number] Health Science Specialist POC Test Results from [facility] Urine Dipstick (18:19:27) Urine leukocytes: 3+ MARCOS Urine nitrites: + NIT Urine urobilinogen: - URO Urine protein: 2+ PRO Urine pH: 6.0 pH Urine blood: trace BLO Urine specific gravity: 1.010 SG Urine ketones: - KET Urine bilirubin: - JOSI Urine glucose: - GLU ...................... ...................... ...................... ...................... ...................... ...................... ......... Health Science Specialist Note From [facility]: Miss Ulrich is [...] is sent to [facility]. I consultative the [facility] will send prescription to pharmacy. Patient's family states they will pick remover the prescription today. I educated Mrs. Ulrich [...] were given the opportunity to ask questions. [facility] Orders: culture, urine: Performed ...................... ...................... ...................... ...................... ...................... ...................... ......... Disposition: Liban Lunsford MD [address] [facility],[address], [place], [address], [facility] 08/26/2024 20:23:43 OBGyn Episode No OBEpisode recorded.
[2025-02-28 10:44] LABS: Basophils Percent Auto 0.2 % (0-2); Hematocrit 39.2 % (37.0-47.0); Hemoglobin 12.3 g/dl (12.0-16.0); Imm Gran Abs Auto 0.04 X10*3/uL (0.00-0.03); Imm Gran Pct Auto 0.8 % (0.0-0.4); Lymphocytes Absolute Auto 1.2 X10*3/uL (1.2-4.9); Lymphocytes Percent Auto 22.8 % (20-40); Mean Corpuscular HGB Conc 31.4 g/dl (31.0-35.0); Mean Corpuscular Hemoglobin 28.7 pg (27.0-33.0); Mean Corpuscular Volume 91.6 fL (80.0-98.0); Mean Platelet Volume 9.8 fL (9.4-12.3); Monocytes Absolute Auto 0.3 X10*3/uL (0.1-1.2); Monocytes Percent Auto 5.9 % (2-11); Neutrophils Absolute Auto 3.6 x10*3/uL (2.0-8.3); Neutrophils Percent Auto 70.3 % (45-73); Platelet Count 302 X10*3/uL (160-400); Red Blood Count 4.28 X10*6/uL (4.20-5.50); Red Cell Distribution Width 15.5 % (11.0-16.0); White Blood Count 5.1 X10*3/uL (4.8-10.8)
[2025-02-28 11:07] LABS: Rheumatoid Factor < 13.0 IU/mL (<15.0)
[2025-02-28 11:27] LABS: Erythrocyte Sedimentation Rate 22 MM/HR (0-20)
[2025-02-28 11:34] LABS: Alanine Aminotransferase 18 U/L (0-31); Albumin Level 3.7 g/dL (3.5-5.0); Alkaline Phosphatase 107 U/L (39-117); Anion Gap 11 (12-20); Aspartate Amino Transferase 21 U/L (5-31); Bilirubin Total 0.2 mg/dL (0.0-1.0); Blood Urea Nitrogen 11 mg/dL (9-16); C Reactive Protein 1.19 mg/dL (< or = 0.50); Carbon Dioxide 24 mmol/L (22-29); Chloride 112 mmol/L (96-108); Cholesterol 136 mg/dL (<200); Estimated Glomerular Filt Rate > 60; Glucose Fasting 128 mg/dL (60-99); HDL Cholesterol 50 mg/dL (>40); LDL Cholesterol Calculated 71 mg/dL (<100); Potassium 3.9 mmol/L (3.3-5.1); Sodium 143 mmol/L (135-145); Total Protein 6.4 g/dL (6.5-8.0); Triglycerides 78 mg/dL (<150)
[2025-02-28 11:45] LABS: Thyroid Stimulating Hormone 1.68 uIU/mL (0.32-4.0); Vitamin D 25-OH Total 27.8 ng/mL (>30)
[2025-02-28 11:50] LABS: Appearance Urine Clear; Color Urine Yellow; Glucose Urine UA Negative (Negative); Leukocyte Esterase Urine Trace (Negative); Nitrite Urine Negative (Negative); UMIC TRIGGER UACC YES; Urine Blood Negative (Negative); Urine Ketones Negative (Negative); Urine Protein Negative (Neg-Trace)
[2025-02-28 11:57] LABS: Bacteria Urine None Seen (None Seen); Hyaline Casts Urine 0-2 /LPF (0-2); RBC Urine 0-2 /HPF (0-2); Squamous Epithelial Cell Urine 0-2 /HPF (0-2); WBC Urine 0-5 /HPF (0-5)
[2025-03-01 06:14] LABS: NT-proBNP 42 pg/mL (<125)
[2025-03-03 10:43] LABS: Anti Nuclear Antibody Screen NEGATIVE (NEGATIVE)
[2025-03-03 21:52] LABS: Anti DNA DS Antibody <1 IU/mL
[2025-03-04 13:28] LABS: Cyclic Citrullinated Peptide <16 UNITS
== END 2025-02-28 09:14 | disposition home or self-care (01) ==
LOC: HO.XRAY 09:13
PROVIDERS: PCP Internal Medicine; Visit Provider Internal Medicine
DX: Z01.818 Encounter for other preprocedural examination (principal); E55.9 Vitamin D deficiency, unspecified; E66.01 Morbid (severe) obesity due to excess calories; E03.9 Hypothyroidism, unspecified; M25.50 Pain in unspecified joint; G43.909 Migraine, unspecified, not intractable, without status migrainosus; E78.5 Hyperlipidemia, unspecified; R93.1 Abnormal findings on diagnostic imaging of heart and coronary circulation; M25.512 Pain in left shoulder
CPT/HCPCS: 36415; 73030; 80053; 80061; 81001; 82306; 83880; 84443; 85025; 85652; 86038; 86140; 86200; 86225; 86431; 93005

== ENCOUNTER → 2025-02-28 09:18 | Outpatient (BNV) | payer OTHER, SELFPAY | PROVIDERS: PCP Internal Medicine; Visit Provider Internal Medicine Cardiovascular Disease | DX: Z01.810 Encounter for preprocedural cardiovascular examination (principal) | CPT/HCPCS: 93010 ==

== ENCOUNTER → 2025-02-28 10:42 | Outpatient (BNV) | payer OTHER, SELFPAY | PROVIDERS: PCP Internal Medicine; Visit Provider Radiology Diagnostic Radiology | DX: M25.512 Pain in left shoulder (principal) | CPT/HCPCS: 73030 ==

== ENCOUNTER 2025-03-11 12:51 | Outpatient (REF) | payer OTHER, SELFPAY ==
--- OUTSIDE RECORDS SUMMARY | 2025-03-11 13:56 | XMS_ITS | Data Portability ---
Author Organization [employer] Address [address] [place] [address] Care Team Providers Care Regulatory Compliance Officer Name Role Phone DICKSON SAEZ Primary Care Provider [phone] HIM CCA OTHER Assessment Encounter Date Assessment [...] ASA provided IM benadryl pt ot seek ball winder and PCP f/up return ot primary team notify service if worsening rash or new SOB [email or web address] Not available 07/18/2022 22:12:53 08/26/2024 08/26/2024 As noted, we sravan e called to see this patient regarding concerns of dysuriaEvaluation in the field was performed by my pathology supervisor colleague, as noted above, I provided real-time [...] worsening serious symptoms, particularly flank pian, fever. [email or web address] Not available 08/26/2024 20:23:21 Plan of Treatment Reminders Order Date Submit Date Provider Last Modified By Organization Details Last Modified Time Details Appointments None recorded. Lab culture, urine 2023 MAGDY [facility] (Centralized Electronic Ordering - All Locations), Patient Can Go To The Location Of Their Choice, [id number] 10:06:26 urinalysis, dipstick 2023 [email or web address] [facility], [address] [place] [address], [phone] 20:23:24 urinalysis, dipstick 2021 022 [email or web address] [facility], [address] [place] [address], [phone] 11:28:27 unlisted lab - urinalysis w/reflex culture 2021 022 [email or web address] [facility] (Centralized Electronic Ordering - All Locations), Patient Can Go To The Location Of Their Choice, [facility] 19:05:47 Referral None recorded. Procedures None recorded. Surgeries None recorded. Imaging None recorded. Medication Orders cefpodoxime 200 mg tablet 2023 024 [facility] #[id number], [address] [place], [address], 18:25:11 prednisone 50 mg tablet 2021 022 [facility]acy #[id number], [address] [place], [address], 11:38:43 prednisone 20 mg tablet 2021 [email or web address] Not available 11:55:52 Macrobid 100 mg capsule 2021 [facility]armacy #[id number], [address] [place], [address], 11:32:24 Pyridium 100 mg tablet 2021 [facility]acy #[id number], [address] [place], [address], 11:32:24 Patient TargetsNo targets recorded. Patient InstructionsNo [...] RE special requests NONE Reflex ed from [id number] Not Available [facility] (Centralized Electronic Ordering [...] Leukocytes ++ Not Available [facility] - [facility] [address] [place] [address], [phone] 02/19/2022 11:27:23 02/20/20 22 02/19/2022 urina lysis , dipst ick Nitrite positi ve Not Available [facility] - [facility] [address] [place] [address], [phone] 02/19/2022 11:27:23 02/20/20 22 02/19/2022 urina lysis , dipst ick Ketone 1+ Not Available Main - [facility] [address] [place] [address], [phone] 02/19/2022 11:27:23 08/26/20 24 08/29/2024 URINE CULTU RE,CO MPREH ENSIV E urine culture,comp rehensive Final report Not Available [facility] ([facility]) [address] [facility], [place], [address], 08/29/2024 10:06:37 08/26/20 24 08/29/2024 URINE CULTU RE,CO MPREH ENSIV E result 1 COMMEN T No growt h in 36 - 48 hours . Not Available [facility] ([facility]) [address] [facility], [place], [address], 08/29/2024 10:06:37 Result Notes None recorded. Medical [...] /min 128 mm[Hg] 88 mm[Hg] Not Available [email or web address] - production 4 18:22:11 Date Recorded Heart [...] /min 99 % 99 % 97.9 [degF] 78789.0 56 g 154.94 cm 20 /min 154.94 cm 99 % 99 % 20 /min 90 /min 97.9 [degF] 62331.0 56 g 118 mm[Hg] 78 mm[Hg] 118 [...] 120 mm[Hg] 70 mm[Hg] Eden Coronado MD [address] [place] [address],[address], [place], [address] [employer] [facility] 2 11:36:33 Date Recorded Respiratory rate [...] Code Diagnosis Note 1126 Surya Acevedo MD [address] [phone] 02/18/2022 14:31:32 07/07/2022 13:35:00 Periorbital edema 33405731 H05.229 62yo woman evaluated for months of [...] changes ot therapy. 1140 Eden Coronado MD [address] [phone] 02/19/2022 09:58:40 07/05/2022 15:20:25 Dysuria [id number] R30.9 Pt with hx prior UTIs (though [...] assessment and plan as documented by the pathology supervisor. I provided real time medical direction for this encounter and was immediatel y available to provide additional phone based assistance as needed. Periorbital edema 199011 00 H05.229 Symptoms persist since last [facility] visit, continuing on allergy tx. urine dip today w/o protein to suggest nephrotic syndomre, recommend PCP f/up for allergy testing/tx . Urine dip also w/ trace ketones but no hx diabetes and normal PO intake, likely contaminat ion from adjacent test strip. F/up formal urinalysis 1495 Kenneth Castellon MD Main - [facility] [address] [place] [phone] 03/10/2022 11:36:32 07/06/2022 14:33:02 Pruritic rash [id number] L28.2 4072 Braydon Recio MD Main - [facility] [address] [place] [phone] 07/18/2022 17:25:40 07/22/2022 13:31:39 Pruritic rash [id number] L28.2 [id number] Gerardo Lunsford MD Main - [facility] [address] [place] [phone] 08/26/2024 18:22:09 08/26/2024 21:57:44 Acute urinary tract infection 091587218 N39.0 Health Concerns Section Related Observation LastModified by Organization Detai ls LastModified Time None Recorded Concern Status LastModified by Organization Details LastModified Time None Recorded Advance Directives Directive None Recorded Payers Insurance Date Sequence Insurance Name Policy Number Policy Burnham Covered Member ID Burnham Member ID Guarantor Name 08/26/2024 1 [facility] - DOS PRIOR TO 2023 - DUAL ELIGIBLE (MEDICARE REPLACEMENT/ADV ANTAGE - HMO) Gracy Mead [id number] Gracy Mead 08/26/2024 1 [facility] - DOS ON OR AFTER 2023 - DUAL ELIGIBLE - NURSING HOME OPTIONS AND ONE CARE (MEDICARE REPLACEMENT/ADV ANTAGE - HMO) Gracy Mar [place] [id number] Gracy Clark Zaid Mead Notes Date Note Type Note Provider Name and Address Organization Details Recorded Time 02/18/2022 text/html Member c/o swollen/itchy eyes w congestion, unable to see and open eyes. Member was in the hospital for over a month and they adjusted eye drops during admission with no help with symptoms . Member was in the hospital for [facility] and was d/c in [facility] . Brim Stretcher Visit Summarydispatched to the above location for [...] and are as documented. picture [place] [facility] [facility] contacted and states to keep using her prescribed eye drops and that she should follow up with her doctor for further treatment. at this time red flags explained to the patient, patient advised to seek treatment if any of the red flags arise. Surya Acevedo MD [address] [place] [address],[address], [place], [phone], [employer] 02/18/2022 14:35:29 02/19/2022 text/html Per request: Mem maricruz seen today 02/18 for itchy/swollen eyes, no other concerns were voiced during visit.Member called back in stating she needed another [facility] for tomorrow 02/19.Member was treated for a UTI 1.5 weeks ago with an ABX. About 4 days ago member states she started with urinary symptoms again. Has c/o pain and burning with urination, urine is dark and concentrated with an odor. Has chill but denies fever. Brim Stretcher documentation:Patient is a 62 year old female [...] Leukocytes, Nitrates, PH, KET. Urine brought to [facility] for culture. Vital signs obtained and all within normal limits. Red flags discussed. Consulted with Dr. Coronado. Patient is to follow up with PCP on Monday regarding her signs, symptoms and todays visit. Dr. oCronado prescribed the patient Macrobid and Pyridium, prescriptions sent to patients pharmacy for pickup. Patient to contact PCP regarding urine culture results. Contact [facility] for a re-visit if symptoms persist. Contact 1 for any discussed red flags or other emergencies. Eden Coronado MD [address] [place] [address],[address], [place], [address], [employer] 02/19/2022 16:34:18 03/10/2022 text/html HPI: mbr with complaints of wide spread/painful rash, states watery eyes, no open wounds, pustules reported. denies any SOB/N/V or difficulty swallowing. requesting [facility] vist. Protocol Used: Rash or Redness - Widespread Protocol-Based Disposition: Consider [facility], [facility] Community Clinician, or PCP visit within 24 hours Positive Triage Question: * SEVERE itching (i.e., interferes with sleep, normal activities or school) Negative Triage Questions: * Bloody crusts on lips or sores in mouth * Face becomes swollen * Sore throat ...................... ...................... ...................... ...................... ...................... ...................... ......... Brim Stretcher Note: dispatched to the above location for a female patient with a rash and itchy eyes. upon arrival patient was located sitting in a chair in her home. patient is alert and oriented X4. patient is Guamanian speaking with little Italian. family on scene to interpret. at this [...] time vitals obtained and are as documented. [facility] contacted and states to give 40 MG [...] ......... Disposition: Fulfilled Kenneth Castellon MD [address] [facility],[address], [place], [address], [employer] - [employer] Monitoring ServicesLOLA CHAUHAN 03/11/2022 10:35:01 07/18/2022 text/html [facility] Nursing Assessment: Reason For Request: PMH: [...] ...................... ...................... ...................... ...................... ...................... ...................... ......... Brim Stretcher Note: Sent to a call for a pt complaining of a rash on face and chest. NM8 arrives on scene, pt is alert and oriented. Airway is patent. 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 Pt was prescribed ASA daily on 07/14, [...] and fluid. Picture of rash uploaded to [email or web address]. BP:118/78, P:90, RR:18, SpO2:98% RA, T:97.9; Lung sounds: clear bilaterally, no stridor; Abdomen: soft, non-tender; Skin: pink, warm, dry with the exception of rash. [facility] orders Diphenhydramine 50mg IM. Diphenhydramine administered without incident. Red flags discussed. Pt/family has no further questions. ...................... ...................... ...................... ...................... ...................... ...................... ......... 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 Will place referral for UTI w/u.verified info: Susana PRADO Brim Stretcher Organization Information for [facility] [employer] Business Legal Name: [facility] Transportation Address: [address] [place] [address], [place] [address], Red Lead Burner: Henry Monreal MD CLIA No.: [id number] Brim Stretcher POC Test Results from [facility] Urine Dipstick (18:19:27) Urine leukocytes: 3+ MARCOS Urine nitrites: + NIT Urine urobilinogen: - URO Urine protein: 2+ PRO Urine pH: 6.0 pH Urine blood: trace BLO Urine specific gravity: 1.010 SG Urine ketones: - KET Urine bilirubin: - JOSI Urine glucose: - GLU ...................... ...................... ...................... ...................... ...................... ...................... ......... Brim Stretcher Note From Pedro Ferrer: Miss Ulrich is [...] is sent to [facility]. I consultative the [facility] will send prescription to pharmacy. Patient's family states they will moss picker the prescription today. I educated Mrs. [...] were given the opportunity to ask questions. [facility] Lab Orders: culture, urine: Performed ...................... ...................... ...................... ...................... ...................... ...................... ......... Disposition: Fulfilled Gerardo Lunsford MD [address] [place] [address],[address] [facility], [place], [address], [employer] 08/26/2024 20:23:43 OBGyn Episode No OBEpisode recorded.
== END 2025-03-11 12:52 | disposition home or self-care (01) ==
LOC: HO.MAMMO 12:51
PROVIDERS: Visit Provider Internal Medicine
DX: Z12.31 Encounter for screening mammogram for malignant neoplasm of breast (principal)
CPT/HCPCS: 77063; 77067

== ENCOUNTER → 2025-03-11 13:00 | Outpatient (BNV) | payer OTHER, SELFPAY | PROVIDERS: Visit Provider Internal Medicine | DX: Z12.31 Encounter for screening mammogram for malignant neoplasm of breast (principal) | CPT/HCPCS: 77063; 77067 ==

== ENCOUNTER 2025-05-14 11:18 | Outpatient (AMB) | payer OTHER, SELFPAY ==
--- NOTE | 2025-05-14 11:19 | A.OFFVIS_ITS ---
Vital Signs 05/14/25 11:20 Height 5 ft 2 in BMI Reason not done Patient refused/unable BP 120/60 Blood Pressure Location Rt brachial Position Sitting Pulse 100 Pulse Source Pulse Oximeter Pulse Oximetry (%) 98 Oxygen Delivery Method Room Air Intake Visit Reasons: Asthma Allergies senna Adverse Reaction (Intermediate, Verified 05/14/25 11:23) Dizziness HPI Comments Details: The patient is a 65-year-old woman with a known history of Asthma COPD in addition to obstructive sleep apnea and respiratory failure oxygen, who recently moved to to the area from [place]. Upon moving to [place], after few weeks she ended up with worsening respiratory status and she was admitted to [facility] with a COPD exacerbation and also possibility of pneumonia. She did undergo a CT scan of the chest demonstrating areas of atelectasis scarring also demonstrated hyperexpansion of the lungs. She has significant morbid obesity as well. The patient was treated and subsequently released. She has been using her rescue inhaler often. She typically uses Xopenex due to tachyarrhythmias. She responded well to Trelegy in the past. She also has a history of sleep apnea. However, since she moved to the [place] [facility] he has not been able to use 1. She continues to have daytime drowsiness. Her Aimwell score is elevated 12/24. The patient also has multiple complaints including significant rashes in the chin is the eyes. In the office we did take her for brief walking oximetry. She quickly desaturated to 87% heart rate increased to the 130s 40s-1 appears to be an SVT. The patient is pretty symptomatic a mario score 8/10. At 2 L the patient's oxygen improved to 97%. She will continue using oxygen with activity and also sleep. She still having issues with heart rate being elevated also is feeling tired and drowsy. We did review her sleep study demonstrating moderate sleep apnea. The patient does have significant issues with tachycardia and also hypoxia and sleep study. I did recommed she undergo a titration study at the hospital. In the meantime she can use the oxygen at home. Will set her up with an auto APAP at this time. Will also try to keep her on the oxygen and possible. When she situated with the CPAP will have to do an overnight oximetry to see if she is getting enough oxygenation. She continues use her respiratory therapy with good effect. She still waiting for echo. Currently on hold because of the circumstances. It appears that her white count is demonstrate significant eosinophilia suggesting eosinophilic induced asthma exacerbations and also the possibility of eosinophilic pneumonia. The patient at this point has been failing in aggressive respiratory regimen and she also has been on multiple courses of corticosteroid therapy. For this reason the patient will be a great candidate for L5 inhibitors,Fasenra in noted to improve her asthma control and also decrease the prednisone use. She continues use the oxygen with good effect. 10/24/2023 the patient is here for sick visit. Apparently she started developing worsening chest tightness wheezing cough. She could not tolerate the symptoms any longer and she was brought to the ER. She tested positive for RSV just yesterday. The patient was given Solu-Medrol and then discharged on prednisone. Her cough is congested. Moderate severity with yellow sputum. Positive sick contacts in the family. She has been using her respiratory therapy with good effect initially but now does not seem to be helping as much. She does have a nebulizer available. I did look at her x-ray did not demonstrate any acute disease which is reassuring. Will go ahead and have her start prednisone although she only got prednisone for 5 days so I will give her a prescription on paper that therefore she can continue. She will also start a course of doxycycline to treat her for postviral bacterial infections. She will monitor closely her asthma symptoms. She also has oxygen at home. If she notices that her oxygen levels are dropping even further then she may need to go back to the ER. 03/26/2024 the patient is here for pulmonary follow-up visit. Overall her breathing is better. The patient did have shoulder surgery after she is started developing shingles over the left shoulder area. She has been following closely with Infectious Disease. She has not significant post herpetic neuralgia. She will try using the Lidoderm patches over the chest area to try to minimize symptoms. In addition to that she continues use her respiratory medications wi th good effect. She has not had to use any rescue medicine or prednisone which is reassuring. The patient also has been having difficulty at nighttime because of this pain discomfort due to the post herpetic neuralgia. She does have oxygen available and she can use use the oxygen for now until she gets more comfortable. When she is more comfortable we can have her restart using the CPAP. 07/12/2024 the patient is here for a pulmonary follow-up visit. Since we last spoke she has had worsening cough. Chest congestion. [id number] severity. She has been using all her respiratory therapy. Denies any sick contacts. She has been responding well to the Fasenra injection. That has controlled her asthma. In the meantime she appears to have a bout of bronchitis. Therefore go ahead treated with doxycycline. The patient also having issues with her post herpetic neuralgia pain. His primarily in the chest area effects of breathing. Therefore I will send her Lidoderm patches to see if this helps alleviate the discomfort that she can work on taking deep breaths. When she feels better she should restart using her CPAP regularly. She will bring her CPAP to the next visit. 01/14/2025 the patient is here for a pulmonary follow-up visit. Overall the patient has been doing okay from a respiratory status. Although she has had choking episodes. She has a hard time taking anything by mouth because it does not feel like it goes down right. She did undergo testing including a CT scan of the abdomen that I personally reviewed. In addition to a ultrasound of her liver. It appears that she is going to have an endoscopy with hopefully dilation of the esophagus to help her with her secretions. She may have a component of gastroparesis. At this point will go ahead and give her chlorhexidine that she can use daily to minimize aspiration pneumonia. And she can also try azithromycin 3 times a week as a promotility agent for 6-8 weeks to help her with her dysmotility issue prior to her procedure. She continues with respiratory therapy with good effect. She also continues uses CPAP at nighttime. CPAP therapy continues to be affecting beneficial. She knows that she needs use it 4 hours a night. 05/14/2025 the patient is here for pulmonary follow-up visit. Overall she is doing okay although she does have choking episodes. We did talk about that before. Will go ahead and set her up with the modified barium swallow with speech pathologist. In the meantime we did talk about the importance of following certain dysphagia recommendations. She also has reflux disease and it does complaint of dyspepsia. She is on a PPI. Will go ahead and add a H2 phani. However, she needs to do a better job with the reflux diet. She does have significant amount of citrus see type of fruits and juices. She likes ice tea and coffee. Therefore we did talk about the fact that medications are not going to work by themselves that as far as improving her reflux diet is leal. She will follow-up with GI soon for her endoscopy. In the meantime the patient will continue her current respiratory therapy as prescribed. Will follow-up in a 4-5 months. If she has any issues prior to that she will call for an earlier assessment. To note the patient has not been using her CPAP although she is going to start using it since it is important for her to use. She is going to start using the daytime to get used to it and then she is going to bring it into the next visit. [facility] Medical History (Updated 02/20/25 @ 00:00 by Kofi Son) Pre-op evaluation Polyarticular osteoarthritis Avascular necrosis of bones of both hips Dysuria Morbid obesity Avascular necrosis Physical exam Well woman exam RSV (acute bronchiolitis due to respiratory syncytial virus) Chest pain Palpitations URI (upper respiratory infection) Snoring Encounter for screening for malignant neoplasm of colon Lumbar pain Urinary incontinence Low blood pressure Allergic reaction UTI (urinary tract infection) Palpitations Morbid obesity with BMI of 40.0-44.9, adult Epigastric abdominal pain Oxygen dependent Hypothyroidism Hypersomnia ILD (interstitial lung disease) ROB on CPAP History of ESBL E. coli infection Obstructive sleep apnea Moderate recurrent major depression Urinary retention Acute and chronic respiratory failure with hypoxia COVID-19 Lupus (systemic lupus erythematosus) Polyarthralgia Neck mass Eosinophilia Severe asthma Asthma-COPD overlap syndrome Trigger finger of right hand Recurrent UTI Tachycardia Obesity Lumbar degenerative disc disease GERD (gastroesophageal reflux disease) Hemangioma Hypovitaminosis D Bipolar 1 disorder Depression with anxiety Insomnia COPD (chronic obstructive pulmonary disease) Surgical History Hx of hand surgery Hx of cardiac catheterization History of esophagogastroduodenoscopy (EGD) History of cystocele History of colonoscopy History of shoulder surgery History of carpal tunnel release History of hysterectomy History of section History of tonsillectomy Family History Father Prostate cancer Mother No problems noted. 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 Cognitive needs: Yes (walker ) Hearing needs: No Vision needs: Yes Female Reproductive History Menstrual Age of Menarche: 12 Review of Systems Const Reports body aches Eyes Reports no additional complaints, Denies change in vision, Reports itchy eyes and Denies other visual disturbances ENT Reports dysphagia and Reports dizziness Card Denies chest pain at rest, Denies chest pain with activity, Denies edema, Denies irregular heart rhythm, Denies claudication, Denies dyspnea, Reports dyspnea on exertion, Denies orthopnea, Denies paroxysmal nocturnal dyspnea and Denies slow heart rate Resp Reports cough, Denies dyspnea, Reports dyspnea on exertion and Denies wheezing GI Reports abdominal pain, Reports dysphagia, Denies excessive flatus, Reports dyspepsia, Reports heartburn, Denies nausea and Denies vomiting Denies urinary incontinence, Denies urinary hesitancy and Denies urinary urgency Musc Reports abnormal gait, Denies atrophy, Denies deformity, Reports arthralgias and Denies limited range of motion Neuro Reports abnormal gait, Denies confusion and Reports dizziness Psych Denies confusion Aller/Immun Reports itchy eyes and Denies wheezing Physical Exam Vital Signs: Last Vital Signs Pulse 100 05/14/25 11:20 BP 120/60 05/14/25 11:20 Pulse Ox 98 05/14/25 11:20 Oxygen Delivery Method Room Air 05/14/25 11:20 Const General: No confusion Orientation/consciousness: No confusion HEENT General nose exam: Abnormal external nose present and Nasal discharge present Neck Neck: Yes supple Chest Chest palpation & inspection: normal inspection of the chest Resp Auscultation: no rales, no wheezes and diminished lung sounds Cardio Rate: regular rate Rhythm: regular rhythm Heart sounds: S1 normal heart sound present and S2 normal heart sound present GI Palpation (GI): Soft to palpation and nontender Auscultation: normal bowel sounds Skin General skin exam: rashes and/or lesions noted Neuro General: No confusion Assessment & Plan Assessment & Plan (1) Severe asthma: Comment: Eosinophilic asthma Code(s): J45.909 - Unspecified asthma, uncomplicated Category: Medical Qualifiers: Asthma complication type: uncomplicated Asthma persistence: persistent Qualified Code(s): J45.50 - Severe persistent asthma, uncomplicated (2) Oxygen dependent: Comment: pulmonology note 12/21/22 states no longer qualifies for supplemental O2 Code(s): Z99.81 - Dependence on supplemental oxygen Category: Medical (3) GERD (gastroesophageal reflux disease): Code(s): K21.9 - Gastro-esophageal reflux disease without esophagitis Category: Medical Qualifiers: Esophagitis presence: without esophagitis Qualified Code(s): K21.9 - Gastro-esophageal reflux disease without esophagitis (4) ROB on CPAP: Code(s): G47.33 - Obstructive sleep apnea (adult) (pediatric); Z99.89 - Dependence on other enabling machines and devices Category: Medical (5) ILD (interstitial lung disease): Code(s): J84.9 - Interstitial pulmonary disease, unspecified Category: Medical (6) Post herpetic neuralgia: Code(s): B02.29 - Other postherpetic nervous system involvement Category: Medical Plan continue Trelegy 200 1 inhalation daily FERMIN as needed continue oxygen with sleep 2 L/min and with activity APAP. provided p10 mask. Needs to restart using it. Should bring it the CPAP to the next visit. EGD pending continue Fasenra Modified Barrium swallow start Pepcid F/U 4-6 months Orders: Orders FL Modified Barium Swallow Today R13.10 - Dysphagia, unspecified Medications: New famotidine (Pepcid) 40 mg PO BEDTIME 30 tabs 11RF Coding Level of Care Code Est Pt Level 4 (42174) Complex EM visit Add On G2211 Diagnoses Severe persistent asthma without complication J45.50 Asthma complication type: uncomplicated Asthma persistence: persistent Oxygen dependent Z99.81 Gastroesophageal reflux disease without esophagitis K21.9 Esophagitis presence: without esophagitis ROB on CPAP G47.33; Z99.89 ILD (interstitial lung disease) J84.9 Post herpetic neuralgia B02.29 Time Spent (min) 18
[2025-05-14 11:20] VITALS: BP 120/60; PULSE 100; O2SAT 98
== END 2025-05-14 11:58 | disposition home or self-care (01) ==
LOC: HO.HPS 11:18
PROVIDERS: PCP Internal Medicine; Visit Provider Hospitalist
DX: J45.50 Severe persistent asthma, uncomplicated (principal); Z99.81 Dependence on supplemental oxygen; K21.9 Gastro-esophageal reflux disease without esophagitis; G47.33 Obstructive sleep apnea (adult) (pediatric); Z99.89 Dependence on other enabling machines and devices; J84.9 Interstitial pulmonary disease, unspecified; B02.29 Other postherpetic nervous system involvement
CPT/HCPCS: 99214; G2211

== ENCOUNTER → 2025-05-14 11:18 | Outpatient (BNVA) | payer OTHER, SELFPAY | PROVIDERS: PCP Internal Medicine; Visit Provider Hospitalist | DX: J45.50 Severe persistent asthma, uncomplicated (principal); B02.29 Other postherpetic nervous system involvement; G47.33 Obstructive sleep apnea (adult) (pediatric); K21.9 Gastro-esophageal reflux disease without esophagitis; J84.9 Interstitial pulmonary disease, unspecified; Z99.89 Dependence on other enabling machines and devices; Z99.81 Dependence on supplemental oxygen | CPT/HCPCS: 99212 ==

== ENCOUNTER 2025-06-03 11:05 | Outpatient (RCR) | payer OTHER, SELFPAY | END 2025-06-09 11:44 | disposition home or self-care (01) | LOC: HO.PT 11:05 | PROVIDERS: PCP Internal Medicine; Visit Provider Physician Assistant | DX: Z47.1 Aftercare following joint replacement surgery (principal); Z96.612 Presence of left artificial shoulder joint | CPT/HCPCS: 97110; 97162 ==

== ENCOUNTER 2025-06-13 17:27 | Emergency (ER) | payer OTHER, SELFPAY ==
--- NOTE | ~2025-06-13 | XR_ITS ---
CLINICAL HISTORY: weakness Single view of the chest. COMPARISON: XR chest dated 10/23/23 at 18:56 EST FINDINGS: Left reverse shoulder arthroplasty partially visualized. Normal heart size. No consolidation. No pleural effusion or pneumothorax. No acute fracture. IMPRESSION: 1. No consolidation. This document has been electronically signed by: Ajit Troy MD on 06/13/2025 18:34:22
--- NOTE | ~2025-06-13 | CT_ITS ---
CLINICAL HISTORY: AMS CT head without contrast. COMPARISON: CT head dated 05/31/24 at 22:22 EDT FINDINGS: The visualized paranasal sinuses are clear. The mastoid air cells are clear. No calvarial fracture. Atherosclerotic intracranial vasculature. No evidence for mass or mass effect. No intracranial hemorrhage or abnormal extra-axial fluid collection. No CT evidence of acute infarct. No evidence of hydrocephalus. The basilar cisterns are patent. Mild global cerebral volume loss. Posterior fossa appears unremarkable. IMPRESSION: 1. No acute intracranial findings. This document has been electronically signed by: Ajit Troy MD on 06/13/2025 20:16:16
--- NOTE | ~2025-06-13 | CT_ITS ---
CLINICAL HISTORY: abdominal pain, refuses IV, epigastric pain CT abdomen and pelvis without IV contrast. COMPARISON: CT abdomen and pelvis dated 09/22/24 at 14:58 EST FINDINGS: Minimal atelectasis along the lung bases. Normal gallbladder. Noncontrast appearance of the spleen, liver, pancreas and adrenal glands are unremarkable. No hydronephrosis or hydroureter. No renal or ureteral calculus bilaterally. Diminutive appendix. Mild colonic stool burden. No bowel obstruction. No mesenteric or retroperitoneal lymphadenopathy. Mild aortoiliac atherosclerotic vascular calcifications. Normal appearance of the urinary bladder. No adnexal mass. Small fat containing umbilical hernia. Moderate spondylosis. No acute fracture or suspicious bone lesion. IMPRESSION: 1. No cause for patient's symptoms identified. No evidence of appendicitis. 2. Mild colonic stool burden. No bowel obstruction. This document has been electronically signed by: Ajit Troy MD on 06/13/2025 20:08:01
--- NOTE | 2025-06-13 17:32 | ECG_ITS ---
Test Reason : stroke like symptoms Blood Pressure : */* mmHG Vent. Rate : 84 BPM Atrial Rate : 84 BPM P-R Int : 164 ms QRS Dur : 92 ms QT Int : 364 ms P-R-T Axes : 20 1 9 degrees QTcB Int : 430 ms Normal sinus rhythm Normal ECG When compared with ECG of 28-Feb-2025 09:16, No significant change was found Referred By: Nely Craven Electronically Signed By: Grady Thakkar
[2025-06-13 17:44] LABS: Prothrombin Time Whole Bld POC 11.4 sec (11.1-13.5); ~PT, ~INR - Anti Coag Clinic 1.0 (0.9-1.1)
--- NOTE | 2025-06-13 17:51 | ED.WEAKNESS ---
HPI - Weakness General Chief complaint: Abdominal Pain Stated complaint: WEAKNESS, ABD PAIN Time Seen by Provider: 06/13/25 17:32 Source: patient, EMS, old records reviewed and other (ANIMAL RIDE ATTENDANT Criss called) Mode of arrival: EMS Limitations: no limitations History of Present Illness ED Provider: CASIE HPI Narrative: 65 yo female with PMH of ROB not on CPAP but 1L PRN NC O2, HLD, obesity, arthritis, UTI, encephalopathy, polypharmacy, GERD, gastroparesis, HLD, memory loss who was with family around 5 - she states she was awake for the whole thing but felt out of body. Then told EMS she had CP/abdominal pain. Her ANIMAL RIDE ATTENDANT was present Sruthi we called her and she notes patient stated she was weak and couldn't walk. EMS noted L facial droop on arrival to ED and she became less responsive. Patient would not participate in any exam and then all of a sudden woke up angry with us when we tried to get IV she had no facial droop was yelling at cruise staff member with both arms and no speech difficulties. I asked her what happened and she stated she had an out of body experience She states she has pain in chest and abdomen. 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 Her ANIMAL RIDE ATTENDANT states during this weakness episode her O2 sat was 85% so they put her on O2 up to 95%. Patient is now angry and animated she is alert and oriented x 3, no neuro deficits NIH 0. She has benign abdominal exam. Related Data Home Medications ?Medication ?Instructions ?Recorded ?Confirmed oxygen-air delivery systems ##1 08/24/20 02/17/25 topiramate 100 mg tablet 100 mg PO BID 07/13/22 02/17/25 amitriptyline 100 mg tablet 100 mg PO BEDTIME 08/23/23 02/17/25 bupropion HCl 300 mg 24 hr tablet, 300 mg PO DAILY 08/23/23 02/17/25 extended release benralizumab 30 mg/mL subcutaneous 30 mg subcut Q8W 01/27/24 02/17/25 syringe (Fasenra) clonazepam 1 mg tablet 1 mg PO DAILY Anxiety 01/27/24 02/17/25 lamotrigine 200 mg tablet 200 mg PO DAILY 01/27/24 02/17/25 pantoprazole 40 mg tablet,delayed 40 mg PO BID 01/27/24 02/17/25 release simethicone 125 mg tablet 125 mg PO QID PRN GAS 01/27/24 02/17/25 tramadol 50 mg tablet 50 mg PO Q6H PRN Pain 01/27/24 02/17/25 gabapentin 400 mg capsule 400 mg PO TID 03/26/24 02/17/25 zolpidem 10 mg tablet 10 mg PO BEDTIME PRN 03/26/24 02/17/25 Previous Rx's ?Medication ?Instructions ?Recorded shower seat #1 ea 11/23/20 miscellaneous medical supply #1 ea 12/22/20 electric wheelchair #1 ea 04/30/22 blood pressure kit-extra large #1 ea 08/29/22 wheeled table with drawers #1 ea 12/05/22 adult diapers pull-ups #240 ea 02/13/23 nebulizers (AeroEclipse II #1 ea 05/15/23 Nebulizer) carboxymethylcellulose sodium 0.5 1 drp ophthalmic (eye) BID PRN dry 10/05/23 % eye drops in a dropperette eye(s) 30 days #30 ea diphenhydramine HCl 25 mg capsule 25 mg PO BEDTIME PRN sleep #30 caps 10/05/23 (Banophen) cromolyn 4 % eye drops 1 drp ophthalmic (eye) 6XD 30 days 12/18/23 #10 mL lidocaine HCl 4 % topical ointment See Rx Instructions topical 01/31/24 (AsperFlex (lidocaine HCl)) .COMPLEX herpes zoster #100 grams cetirizine 10 mg tablet 10 mg PO DAILY PRN allergy 03/09/24 symptoms 90 days #90 tabs fluticasone fur. 200 mcg-umeclid 1 inh inhalation DAILY 30 days #60 05/27/24 62.5 mcg-vilant 25 mcg ea inhalat.powder (Trelegy Ellipta) disposable gloves #200 ea 06/06/24 flushable wipes #240 ea 06/06/24 underpads (Bed Underpads) #100 ea 07/24/24 recliner with power buttons #1 ea 07/31/24 POWER LIFT RECLINER #1 ea 09/10/24 docusate sodium 100 mg capsule 100 mg PO BID #20 caps 09/22/24 (Colace) ketorolac 10 mg tablet 10 mg PO TID PRN pain 5 days #15 09/22/24 tabs polyethylene glycol 3350 17 17 g PO BID PRN constipation #238 09/22/24 gram/dose oral powder (Miralax) grams rosuvastatin 10 mg tablet 10 mg PO DAILY #90 tabs 09/30/24 chair, wheel (Wheel chair) #1 ea 10/03/24 commode (bedside commode) #1 ea 10/03/24 lidocaine 5 % topical patch 1 patch topical DAILY hip pain 10/03/24 (Lidoderm) #30 ea lubiprostone 24 mcg capsule 24 mcg PO BID #180 caps 10/08/24 diclofenac sodium 1 % topical gel 4 g topical QID #100 grams 10/09/24 acetaminophen 325 mg tablet 325 mg PO QID PRN Pain 30 days 11/12/24 #120 tabs albuterol sulfate 90 mcg/actuation 2 puff inhalation Q4H PRN Wheezing 11/12/24 aerosol inhaler #8.5 grams lactulose 10 gram/15 mL oral 10 g (15 mL) PO BEDTIME PRN 11/12/24 solution constipation 30 days #237 mL levothyroxine 50 mcg tablet 50 mcg PO DAILY@0630 #90 tabs 11/17/24 wheelchair #1 ea 11/27/24 sodium,potassium,mag sulfates 17.5 See Rx Instructions PO .COMPLEX 12/09/24 gram-3.13 gram-1.6 gram oral soln #354 mL (Suprep Bowel Prep Kit) esomeprazole magnesium 40 mg 40 mg PO DAILY #90 caps 12/30/24 capsule,delayed release chlorhexidine gluconate 0.12 % 15 ml buccal DAILY 30 days #450 mL 01/14/25 mouthwash celecoxib 200 mg capsule (Celebrex) 200 mg PO DAILY 7 days #7 caps 02/17/25 cyclobenzaprine 5 mg tablet 5 mg PO TID PRN muscle spasm 3 02/19/25 days #9 tabs lidocaine 5 % topical patch 1 patch topical DAILY #15 ea 02/19/25 oxycodone 5 mg tablet 5 mg PO TID PRN severe pain (scale 02/19/25 score 7-10) #6 tabs albuterol sulfate 2.5 mg/3 mL 2.5 mg (3 mL) inhalation Q6H PRN 03/18/25 (0.083 %) solution for nebulization for wheezing #150 mL cholecalciferol (vitamin D3) 25 25 mcg PO DAILY #30 caps 04/23/25 mcg (1,000 unit) capsule (Vitamin D3) meloxicam 15 mg tablet 15 mg PO DAILY for pain #30 tabs 04/23/25 famotidine 40 mg tablet (Pepcid) 40 mg PO BEDTIME #30 tabs 05/14/25 Allergies Allergy/AdvReac Type Severity Reaction Status Date / Time senna AdvReac Intermediate Dizziness Verified 06/13/25 17:55 Review of Systems Review of Systems: Constitutional : No Fever, No Chills, No Fatigue ENT/Mouth : No sore throat, No Rhinorrhea Eyes: No Eye Pain, No Swelling, No Redness Cardiovascular : pos Chest Pain, No SOB, No Dyspnea on Exertion Respiratory : No Cough, No Sputum Gastrointestinal : No Nausea, No Vomiting, No Diarrhea, pos abdominal Pain Genitourinary : No Dysuria, No Urinary Frequency, No Hematuria, Musculoskeletal : No joint pain, No Myalgias, No Joint Swelling Skin : No Skin Lesions, No rash Neuro : pos Weakness, No Numbness, No Dizziness, no Headache Psych : No Anxiety/Panic, No Depression All other systems reviewed and are negative PMFSH Past Medical History Attestation statement: The following information was validated with the patient. Source: old records reviewed Medical History Pre-op evaluation Polyarticular osteoarthritis Avascular necrosis of bones of both hips Dysuria Morbid obesity Avascular necrosis Physical exam Well woman exam RSV (acute bronchiolitis due to respiratory syncytial virus) Chest pain Palpitations URI (upper respiratory infection) Snoring Encounter for screening for malignant neoplasm of colon Lumbar pain Urinary incontinence Low blood pressure Allergic reaction UTI (urinary tract infection) Palpitations Morbid obesity with BMI of 40.0-44.9, adult Epigastric abdominal pain Oxygen dependent Hypothyroidism Hypersomnia ILD (interstitial lung disease) ROB on CPAP History of ESBL E. coli infection Obstructive sleep apnea Moderate recurrent major depression Urinary retention Acute and chronic respiratory failure with hypoxia COVID-19 Lupus (systemic lupus erythematosus) Polyarthralgia Neck mass Eosinophilia Severe asthma Asthma-COPD overlap syndrome Trigger finger of right hand Recurrent UTI Tachycardia Obesity Lumbar degenerative disc disease GERD (gastroesophageal reflux disease) Hemangioma Hypovitaminosis D Bipolar 1 disorder Depression with anxiety Insomnia COPD (chronic obstructive pulmonary disease) Surgical History Hx of hand surgery Hx of cardiac catheterization History of esophagogastroduodenoscopy (EGD) History of cystocele History of colonoscopy History of shoulder surgery History of carpal tunnel release History of hysterectomy History of section History of tonsillectomy Family History Family History Father Prostate cancer Mother No problems noted. Sister Nasopharyngeal cancer Social History Social History Household Members: None Household Members Other:: 1 Housing: Apartment Do you presently have visiting nurse or other home services: Yes (Has ANIMAL RIDE ATTENDANT) Alcohol intake: never Comment: sleeping Patient Tobacco Use Status: Former Tobacco user Years Smoked: 14 +/- e-Cigarette/Vaping Use: Never Used Second Hand Smoke Exposure: No Advance Directives: Yes Advance Directives on File: Yes Advance Directives Date on File: 01/08/21 service: No Current occupational status: disabled Current occupation: right and left handed--- HAS ANIMAL RIDE ATTENDANT SERVICES Cognitive needs: Yes (walker ) Hearing needs: No Vision needs: Yes Physical Exam Vital Signs: Vital Signs: Last Vital Signs Temp 98.4 F 06/13/25 22:00 Pulse 88 06/13/25 22:00 Resp 15 06/13/25 22:00 BP 123/67 06/13/25 22:00 Pulse Ox 100 06/13/25 22:00 O2 Del Method Room Air 06/13/25 22:00 BMI result Body Mass Index 42.3 Appearance: Alert. Oriented X3. No acute distress. Initially would not participate in exam then woke up very animated telling us she needed IV US no deficits. yelling at one point then refusing labs Eyes: Pupils equal, round and reactive to light. ENT: Pharynx normal. Neck: Normal inspection. Neck supple. CVS: Normal heart rate and rhythm. Pulses normal. Respiratory: No respiratory distress. Breath sounds normal. Abdomen: Soft and nontender. Skin: Skin warm and dry. pale skin color. Normal skin turgor. Extremities: No lower extremity edema. No calf ttp Neuro: Oriented X 3. No motor deficit. No sensory deficit. CN2-12 intact NIH Stroke Scale Internal: Initial- Upon Arrival Level of Consciousness: Alert Level of Consciousness Questions: Answers both questions correctly Level of Consciousness Commands: Performs both tasks correctly Best Gaze: Normal Visual: No visual loss Facial Palsy: Normal Motor Arm (Right): No drift Motor Arm (Left): No drift Motor Leg (Right): No drift Motor Leg (Left): No drift Limb Ataxia: Absent Sensory: Normal Best Language: No aphasia Dysarthia: Normal Extinction and Inattention: No abnormality Score: 0 Course Course Course Narrative: eating smiling laughing Medical Decision Making Medical Decision Making [facility] Narrative: 65 yo female with PMH of ROB not on CPAP but 1L PRN NC O2, HLD, obesity, arthritis, UTI, encephalopathy, polypharmacy, GERD, gastroparesis, HLD, memory loss here with c/o out of body experience on arrival here no neuro deficits but she was initially sleepy. There was hypoxia at home which could have been the precipitating event. Her ANIMAL RIDE ATTENDANT denies seizure activity no LOC. At this time I do not think this is stroke her symptoms wer diffuse and vague I did not appreciate any droop - will obtain basic labs, CT head for ICH, UA, CXR, CT abdomen given her pain. She is refusing IV attempts at this time. Event could be encephalopathy due to her hypoxia at home. Differential Diagnosis Differential Diagnoses: The differential diagnosis associated with the presentation includes atypical chest pain, Admission/Observation Consideration of admission/observation: Escalation of care including admission/observation considered normal VBG, VS, no wbc count, not altered here, negative UA, CT head/abdomen pelvis repeat trop negative at this time suspect her symptoms were due to hypoxia event that has resolved with her 1L NC she has been in no distress eating and on the phone for her duration without any neuro findings. Lab Data [facility] Lab Attestation statement: I reviewed the patient's lab results. 06/13/25 20:32 06/13/25 20:32 Labs: Lab Results 06/13/25 06/13/25 06/13/25 Range/Units 17:37 19:34 20:32 WBC 6.4 (4.8-10.8) X10*3/uL RBC 4.49 (4.20-5.50) X10*6/uL Hgb 12.9 (12.0-16.0) g/dl Hct 40.5 (37.0-47.0) % MCV 90.2 (80.0-98.0) fL MCH 28.7 (27.0-33.0) pg MCHC 31.9 (31.0-35.0) g/dl RDW 15.7 (11.0-16.0) % Plt Count 308 (160-400) X10*3/uL MPV 9.2 L (9.4-12.3) fL Immature Gran % (Auto) 0.8 H (0.0-0.4) % Neut % (Auto) 71.7 (45-73) % Lymph % (Auto) 21.3 (20-40) % [place] % (Auto) 6.0 (2-11) % Eos % (Auto) 0.0 (0-4) % Baso % (Auto) 0.2 (0-2) % Lymph # (Auto) 1.4 (1.2-4.9) X10*3/uL [place] # (Auto) 0.4 (0.1-1.2) X10*3/uL Eos # (Auto) 0.0 (0.0-0.4) X10*3/uL Baso # (Auto) 0.0 (0.0-0.2) X10*3/uL Abs Immat Gran (auto) 0.05 H (0.00-0.03) X10*3/uL Absolute Neuts (auto) 4.6 (2.0-8.3) x10*3/uL Absolute Nucleated RBC 0.000 (0.0-0.012) X10*3/uL Nucleated RBC % (auto) 0.0 (0.0-0.2) /100WBC Whole Blood PT 11.4 (11.1-13.5) sec Whole Blood INR 1.0 (0.9-1.1) VBG pH (7.32-7.43) VBG pCO2 mmHg VBG pO2 mmHg VBG HCO3 (22-26) mmol/L VBG O2 Saturation % VBG Base Excess mmol/L Sodium 142 (135-145) mmol/L Potassium 3.6 (3.3-5.1) mmol/L Chloride 109 H (96-108) mmol/L Carbon Dioxide 24 (22-29) mmol/L Anion Gap 13 (12-20) BUN 9 (9-16) mg/dL Creatinine 1.01 (0.5-1.4) mg/dL Estim Creat Clear Calc 66.1 Estimated GFR 55 Random Glucose 85 (60-115) mg/dL Lactic Acid 0.9 (0.5-2.0) mmol/L Calcium 9.7 D (8.4-10.2) mg/dL Magnesium 2.0 (1.6-2.6) mg/dL Total Bilirubin 0.3 (0.0-1.0) mg/dL Direct Bilirubin 0.1 (0.0-0.5) mg/dL AST 28 (5-31) U/L ALT 21 (0-31) U/L Alkaline Phosphatase 109 (39-117) U/L Ammonia 23 (13-55) umol/L Troponin I High Sens < 2.7 (<3.5-17.0) ng/L C-Reactive Protein 0.95 H (< or = 0.50) mg/dL B-Natriuretic Peptide < 10 (<100) pg/mL Total Protein 7.5 (6.5-8.0) g/dL Albumin 4.4 (3.5-5.0) g/dL Lipase 9 (8-78) U/L TSH 1.19 (0.32-4.0) uIU/mL Urine Color Yellow Urine Appearance Clear Urine pH 7.0 (5.0-9.0) Ur Specific [place] <= 1.005 (1.005-1.025) Urine Protein Negative (Neg-Trace) mg/dL Urine Glucose (UA) Negative (Negative) mg/dL Urine Ketones Negative (Negative) mg/dL Urine Blood Negative (Negative) Urine Nitrite Negative (Negative) Ur Leukocyte Esterase Moderate (2+) H (Negative) Urine RBC 0-2 (0-2) /HPF Urine WBC 0-5 (0-5) /HPF Ur Squamous Epith Cells 0-2 (0-2) /HPF Urine Bacteria None Seen (None Seen) Hyaline Casts 0-2 (0-2) /LPF Influenza Type A (PCR) NEGATIVE (Negative) Influenza Type B (PCR) NEGATIVE (Negative) RSV RNA Qual (PCR) NEGATIVE (Negative) SARS-CoV-2 RNA (RT-PCR) NEGATIVE (Negative) 06/13/25 Range/Units 20:40 WBC (4.8-10.8) X10*3/uL RBC (4.20-5.50) X10*6/uL Hgb (12.0-16.0) g/dl Hct (37.0-47.0) % MCV (80.0-98.0) fL MCH (27.0-33.0) pg MCHC (31.0-35.0) g/dl RDW (11.0-16.0) % Plt Count (160-400) X10*3/uL MPV (9.4-12.3) fL Immature Gran % (Auto) (0.0-0.4) % Neut % (Auto) (45-73) % Lymph % (Auto) (20-40) % [place] % (Auto) (2-11) % Eos % (Auto) (0-4) % Baso % (Auto) (0-2) % Lymph # (Auto) (1.2-4.9) X10*3/uL [place] # (Auto) (0.1-1.2) X10*3/uL Eos # (Auto) (0.0-0.4) X10*3/uL Baso # (Auto) (0.0-0.2) X10*3/uL Abs Immat Gran (auto) (0.00-0.03) X10*3/uL Absolute Neuts (auto) (2.0-8.3) x10*3/uL Absolute Nucleated RBC (0.0-0.012) X10*3/uL Nucleated RBC % (auto) (0.0-0.2) /100WBC Whole Blood PT (11.1-13.5) sec Whole Blood INR (0.9-1.1) VBG pH 7.39 (7.32-7.43) VBG pCO2 41 mmHg VBG pO2 47 mmHg VBG HCO3 25 (22-26) mmol/L VBG O2 Saturation 72.0 % VBG Base Excess 0.8 mmol/L Sodium (135-145) mmol/L Potassium (3.3-5.1) mmol/L Chloride (96-108) mmol/L Carbon Dioxide (22-29) mmol/L Anion Gap (12-20) BUN (9-16) mg/dL Creatinine (0.5-1.4) mg/dL Estim Creat Clear Calc Estimated GFR Random Glucose (60-115) mg/dL Lactic Acid (0.5-2.0) mmol/L Calcium (8.4-10.2) mg/dL Magnesium (1.6-2.6) mg/dL Total Bilirubin (0.0-1.0) mg/dL Direct Bilirubin (0.0-0.5) mg/dL AST (5-31) U/L ALT (0-31) U/L Alkaline Phosphatase (39-117) U/L Ammonia (13-55) umol/L Troponin I High Sens (<3.5-17.0) ng/L C-Reactive Protein (< or = 0.50) mg/dL B-Natriuretic Peptide (<100) pg/mL Total Protein (6.5-8.0) g/dL Albumin (3.5-5.0) g/dL Lipase (8-78) U/L TSH (0.32-4.0) uIU/mL Urine Color Urine Appearance Urine pH (5.0-9.0) Ur Specific [place] (1.005-1.025) Urine Protein (Neg-Trace) mg/dL Urine Glucose (UA) (Negative) mg/dL Urine Ketones (Negative) mg/dL Urine Blood (Negative) Urine Nitrite (Negative) Ur Leukocyte Esterase (Negative) Urine RBC (0-2) /HPF Urine WBC (0-5) /HPF Ur Squamous Epith Cells (0-2) /HPF Urine Bacteria (None Seen) Hyaline Casts (0-2) /LPF Influenza Type A (PCR) (Negative) Influenza Type B (PCR) (Negative) RSV RNA Qual (PCR) (Negative) SARS-CoV-2 RNA (RT-PCR) (Negative) Independent Interpretation I performed an independent interpretation of an: EKG, Plain X-Ray (normal ) and CT Scan (normal ) Interpretation: Rate: 84 Rhythm: NSR Runge: left Normal P waves. Normal KVNG. Normal QRS complex. ST T wave : normal no MARIO qTC: 430 prior studies: no acute ischemia The study has been interpreted contemporaneously by me. . Radiology Impression Discussion of test interpretation with radiology: I have reviewed the radiologist's reading. Independent Historian Clinical information obtained from an independent historian. History obtained from or confirmed by: EMS and Other (RICKY Negro) External Record Review External record reviewed: Inpatient record and Outpatient record Discharge Plan Discharge Clinical Impression: Hypoxia Instructions: Hypoxia (ED) Additional Instructions: your CT scans of head and abdomen are normal labs normal and urine normal it is suspected your symptoms were due to low oxygen levels please wear your oxygen your vital signs were normal here. Prescriptions: No Action (DME) shower seat See Rx Instructions .Route .MEDSUPPLY Qty: 1 0RF Rx Instructions: As directed (DME) miscellaneous medical supply Misc See Rx Instructions .ROUTE .MEDSUPPLY Qty: 1 0RF Rx Instructions: OVERBED TABLE (DME) electric wheelchair See Rx Instructions .Route .MEDSUPPLY Qty: 1 0RF Rx Instructions: As directed (DME) wheeled table with drawers See Rx Instructions .Route .MEDSUPPLY Qty: 1 0RF Rx Instructions: As directed (DME) adult diapers pull-ups 2Xlarge See Rx Instructions .Route .MEDSUPPLY Qty: 240 6RF Rx Instructions: As directed (DME) nebulizers [AeroEclipse II Nebulizer] [facility] See Rx Instructions .Route Qty: 1 0RF Rx Instructions: As directed cromolyn 4 % drops 1 drp ophthalmic (eye) 6XD 30 Days Qty: 10 1RF cetirizine 10 mg tablet 10 mg PO DAILY PRN (Reason: allergy symptoms) 90 Days Qty: 90 1RF Trelegy Ellipta 200-62.5-25 mcg blister with device 1 inh inhalation DAILY 30 Days Qty: 60 12RF (DME) flushable wipes See Rx Instructions .Route .MEDSUPPLY Qty: 240 6RF Rx Instructions: As directed (DME) disposable gloves [facility] See Rx Instructions .Route Qty: 200 6RF Rx Instructions: As directed (DME) underpads [Bed Underpads] Pad See Rx Instructions .Route Qty: 100 6RF Rx Instructions: As directed (DME) recliner with power buttons See Rx Instructions .Route .MEDSUPPLY Qty: 1 0RF Rx Instructions: As directed (DME) POWER LIFT RECLINER See Rx Instructions .Route .MEDSUPPLY Qty: 1 0RF Rx Instructions: As directed rosuvastatin 10 mg tablet 10 mg PO DAILY Qty: 90 3RF (DME) bedside commode Kit See Rx Instructions .Route Qty: 1 0RF Rx Instructions: As directed (DME) Wheel chair Kit See Rx Instructions .Route Qty: 1 0RF Rx Instructions: As directed lubiprostone 24 mcg capsule 24 mcg PO BID Qty: 180 3RF levothyroxine 50 mcg tablet 50 mcg PO DAILY@0630 Qty: 90 0RF (DME) wheelchair See Rx Instructions .Route .MEDSUPPLY Qty: 1 0RF Rx Instructions: As directed esomeprazole magnesium 40 mg capsule,delayed release(DR/EC) 40 mg PO DAILY Qty: 90 2RF albuterol sulfate 2.5 mg /3 mL (0.083 %) solution for nebulization 2.5 mg inhalation Q6H PRN (Reason: for wheezing) Qty: 150 11RF meloxicam 15 mg tablet 15 mg PO DAILY Qty: 30 1RF cholecalciferol (vitamin D3) [Vitamin D3] 25 mcg (1,000 unit) capsule 25 mcg PO DAILY Qty: 30 1RF lamotrigine 200 mg tablet 200 mg PO DAILY tramadol 50 mg tablet 50 mg PO Q6H PRN (Reason: Pain) pantoprazole 40 mg Tablet,Delayed Release (Dr/Ec) 40 mg PO BID simethicone 125 mg Tablet 125 mg PO QID PRN (Reason: GAS) Fasenra 30 mg/mL syringe 30 mg subcut Q8W clonazepam 1 mg tablet 1 mg PO DAILY docusate sodium [Colace] 100 mg capsule 100 mg PO BID Qty: 20 0RF polyethylene glycol 3350 [Miralax] 17 gram/dose powder 17 g PO BID PRN (Reason: constipation) Qty: 238 0RF ketorolac 10 mg tablet 10 mg PO TID PRN (Reason: pain) 5 Days Qty: 15 0RF Rx Instructions: Tolerated IM or IV in department cyclobenzaprine 5 mg tablet 5 mg PO TID PRN (Reason: muscle spasm) 3 Days Qty: 9 0RF lidocaine 5 % adhesive patch,medicated 1 patch topical DAILY Qty: 15 0RF Rx Instructions: leave on most painful area for up to 12 hrs oxycodone 5 mg tablet 5 mg PO TID PRN (Reason: severe pain (scale score 7-10)) Qty: 6 0RF Rx Instructions: Partial Fill upon patient request. (DME) oxygen-air delivery systems Device See Rx Instructions .ROUTE .MEDSUPPLY Qty: 1 Rx Instructions: As directed carboxymethylcellulose sodium 0.5 % dropperette 1 drp ophthalmic (eye) BID PRN (Reason: dry eye(s)) 30 Days Qty: 30 2RF diphenhydramine HCl [Banophen] 25 mg capsule 25 mg PO BEDTIME PRN (Reason: sleep) Qty: 30 0RF AsperFlex (lidocaine HCl) 4 % ointment See Rx Instructions topical .COMPLEX Qty: 100 0RF Rx Instructions: use 1-2 inch ointment and apply up to 3 times daily on L shoulder topically; topiramate 100 mg tablet 100 mg PO BID (DME) blood pressure kit-extra large Kit See Rx Instructions .Route Qty: 1 0RF Rx Instructions: As directed amitriptyline 100 mg tablet 100 mg PO BEDTIME bupropion HCl 300 mg tablet extended release 24 hr 300 mg PO DAILY zolpidem 10 mg tablet 10 mg PO BEDTIME PRN gabapentin 400 mg capsule 400 mg PO TID sodium,potassium,mag sulfates [Suprep Bowel Prep Kit] 17.5-3.13-1.6 gram recon soln See Rx Instructions PO .COMPLEX Qty: 354 0RF Rx Instructions: DILUTE; drink 1/2 at 6-8 pm and half at 11 PM- 1AM celecoxib [Celebrex] 200 mg capsule 200 mg PO DAILY 7 Days Qty: 7 0RF famotidine [Pepcid] 40 mg tablet 40 mg PO BEDTIME Qty: 30 11RF chlorhexidine gluconate 0.12 % mouthwash 15 ml buccal DAILY 30 Days Qty: 450 0RF acetaminophen 325 mg tablet 325 mg PO QID PRN (Reason: Pain) 30 Days Qty: 120 2RF albuterol sulfate 90 mcg/actuation HFA aerosol inhaler 2 puff inhalation Q4H PRN (Reason: Wheezing) Qty: 8.5 11RF lactulose 10 gram/15 mL solution 10 g PO BEDTIME PRN (Reason: constipation) 30 Days Qty: 237 2RF diclofenac sodium 1 % gel 4 g topical QID Qty: 100 4RF Rx Instructions: apply to knees and hands 4 times a day lidocaine [Lidoderm] 5 % adhesive patch,medicated 1 patch topical DAILY Qty: 30 0RF Rx Instructions: leave on most painful area for up to 12 hrs Print Language: Polish
[2025-06-13 17:53] VITALS: BP 127/75; PULSE 92; RESP 20; O2SAT 98; BMI 42.3
[2025-06-13 18:00] VITALS: BP 129/72; PULSE 85; RESP 15; TEMP 36.9; O2SAT 97
[2025-06-13 19:43] LABS: Appearance Urine Clear; Glucose Urine UA Negative (Negative); PH 7.0 (5.0-9.0); Specific Gravity - Urine <= 1.005 (1.005-1.025); UMIC TRIGGER UACC YES
[2025-06-13 19:54] LABS: UACC Culture Trigger YES
[2025-06-13 20:00] VITALS: BP 130/74; PULSE 80; RESP 14; TEMP 36.9; O2SAT 99
[2025-06-13 20:39] LABS: MANUAL DIFF FLAG NO
[2025-06-13 20:40] LABS: Hematocrit 40.5 % (37.0-47.0); Hemoglobin 12.9 g/dl (12.0-16.0); Imm Gran Abs Auto 0.05 X10*3/uL (0.00-0.03); Imm Gran Pct Auto 0.8 % (0.0-0.4); Lymphocytes Absolute Auto 1.4 X10*3/uL (1.2-4.9); Mean Corpuscular HGB Conc 31.9 g/dl (31.0-35.0); Mean Corpuscular Hemoglobin 28.7 pg (27.0-33.0); Mean Corpuscular Volume 90.2 fL (80.0-98.0); NRBC Abs Auto 0.000 X10*3/uL (0.0-0.012); NRBC Pct Auto 0.0 /100WBC (0.0-0.2); Platelet Count 308 X10*3/uL (160-400); Red Blood Count 4.49 X10*6/uL (4.20-5.50); White Blood Count 6.4 X10*3/uL (4.8-10.8)
[2025-06-13 20:43] LABS: Venous Blood Gas Refer to POC result
[2025-06-13 20:44] LABS: VBG HCO3 25 mmol/L (22-26); VBG O2 % Saturation 72.0 %
[2025-06-13 20:49] LABS: Ammonia 23 umol/L (13-55)
[2025-06-13 20:56] LABS: Alanine Aminotransferase 21 U/L (0-31); Albumin Level 4.4 g/dL (3.5-5.0); Alkaline Phosphatase 109 U/L (39-117); Anion Gap 13 (12-20); Aspartate Amino Transferase 28 U/L (5-31); Blood Urea Nitrogen 9 mg/dL (9-16); Calcium 9.7 mg/dL (8.4-10.2); Carbon Dioxide 24 mmol/L (22-29); Chloride 109 mmol/L (96-108); Creatinine Clr Calc Pharmacy 66.1; Estimated Glomerular Filt Rate 55; Lipase 9 U/L (8-78); Magnesium 2.0 mg/dL (1.6-2.6); Potassium 3.6 mmol/L (3.3-5.1); Sodium 142 mmol/L (135-145); Total Protein 7.5 g/dL (6.5-8.0)
[2025-06-13 21:01] LABS: B Type Natriuretic Peptide < 10 pg/mL (<100)
[2025-06-13 21:05] LABS: Troponin-I High Sensitivity < 2.7 ng/L (<3.5-17.0)
[2025-06-13 21:17] LABS: Resp Syncy Virus RNA Qual PCR NEGATIVE (Negative); SARS COV2 PCR INHOUSE NEGATIVE (Negative)
[2025-06-13 22:00] VITALS: BP 123/67; PULSE 88; RESP 15; TEMP 36.9; O2SAT 100
[2025-06-13 22:52] LABS: Troponin-I High Sensitivity < 2.7 ng/L (<3.5-17.0)
[2025-06-14 01:11] VITALS: BP 123/67; PULSE 88; RESP 15; TEMP 36.9; O2SAT 100
[2025-06-16 16:11] LABS: Glucose, Whole Blood 88 mg/dL (60-115)
[2025-06-16 16:12] LABS: Glucose, Whole Blood 88 mg/dL (60-115)
== END 2025-06-14 01:11 | disposition home or self-care (01) ==
PROVIDERS: Emergency Provider Emergency Medicine
DX: R09.02 Hypoxemia (principal); G47.33 Obstructive sleep apnea (adult) (pediatric); R10.2 Pelvic and perineal pain; R41.82 Altered mental status, unspecified; R10.13 Epigastric pain; Z79.899 Other long term (current) drug therapy; Z03.818 Encounter for observation for suspected exposure to other biological agents ruled out
CPT/HCPCS: 36415; 70450; 71045; 74176; 80048; 80076; 81001; 82140; 82803; 82947; 83605; 83690; 83735; 83880; 84443; 84484; 85025; 85610; 86140; 87040; 87086; 87637; 93005; 99284

== ENCOUNTER → 2025-06-13 17:32 | Outpatient (BNV) | payer OTHER, SELFPAY | PROVIDERS: Emergency Provider Emergency Medicine; Visit Provider Internal Medicine Cardiovascular Disease | DX: Z13.6 Encounter for screening for cardiovascular disorders (principal) | CPT/HCPCS: 93010 ==

== ENCOUNTER → 2025-06-13 17:33 | Outpatient (BNV) | payer OTHER, SELFPAY | PROVIDERS: Emergency Provider Emergency Medicine; Visit Provider Radiology Diagnostic Radiology | DX: R10.9 Unspecified abdominal pain (principal); R10.13 Epigastric pain; R41.82 Altered mental status, unspecified; R53.1 Weakness | CPT/HCPCS: 70450; 71045; 74176 ==

== ENCOUNTER → 2025-06-19 10:55 | Outpatient (REF) | payer OTHER, SELFPAY ==
--- NOTE | 2025-06-19 10:58 | CA_ITS ---
Transthoracic Echocardiogram Patient (Last, First, Middle): Gracy Silva, Gender: F Date of : 1960 Age: 65 Procedure Date: 06/19/2025 Procedure Type: Transthoracic Echocardiogram Location: OP Height: 154.94 cm Weight: 108.86 kg BSA: 2.04 m2 Heart Rate: bpm BP: 123 / 67 mmHg Wire Winding Machine Tender: YANET Referring MD: Farideh Marquez MD Hardware Assembler: Demarcus Reeves MD Symptoms: R93.1 - Abnormal findings on diagnostic imaging of heart and coronary circulation Study Quality: Technically Difficult, no IV access ECG Rhythm: Sinus Conclusions: - 1. Mildly reduced LV ejection fraction 45-50% with grade 1 diastolic dysfunction 2. Limited visualization of cardiac valves with mild mitral regurgitation 3. Normal measured RV systolic pressure Findings Procedure Information The study quality is limited by patients body habitus. Left Ventricle Normal left ventricular cavity size. There is normal left ventricular wall thickness. The left ventricular systolic function is mildly decreased. The visually estimated ejection fraction is between 45-50%. Regional wall motion abnormalities can not be excluded due to suboptimal endocardial definition. Spectral Doppler is indicative of an impaired relaxation filling pattern. E/E prime ratio is <8, consistent with normal filling pressures. Evidence suggests grade I (mild) diastolic dysfunction. Right Ventricle The right ventricle was not well visualized. There is normal right ventricular systolic function. Atria The left atrium is normal in size. There is lipomatous hypertrophy of the interatrial septum. Interatrial shunt cannot be excluded. The right atrium was not well visualized. Aortic Valve The aortic valve was not well visualized. There is no aortic valve stenosis. There is no aortic valve regurgitation. Mitral Valve The mitral valve was not well visualized. There is mild mitral valve regurgitation. There is no mitral valve stenosis. Pulmonic Valve The pulmonic valve was not well visualized. There is trace pulmonic valve regurgitation. Tricuspid Valve The tricuspid valve was not well visualized. There is trace tricuspid valve regurgitation. The right ventricular systolic pressure is normal. The right ventricular systolic pressure is 19 mmHg. Normal right atrial pressure. There is no evidence of pulmonary hypertension. Great Vessels The aorta was not well visualized. The pulmonary artery was not well visualized. There is no dilatation of the ascending aorta measuring 3.10 cm. Venous The inferior vena cava is normal in size and collapses greater than 50% with inspiration. Pericardium/Pleural There is no evidence of pericardial effusion. Prior Study Comparison No significant change compared to prior study dated: 06/19/2024. Measurements 2D Linear Measurements IVSd: 0.98 0.6-0.9/0.6-1.0 cm LVIDd: 4.38 3.9-5.3/4.2-5.9 cm LVIDd Index: 2.15 2.4-3.2/2.2-3.1 cm/m2 LVIDs: 2.87 2.0-3.6 cm LVPWd: 0.88 0.7-1.1 cm LA Diam: 3.20 2.7-3.8/3.0-4.0 cm LAIDs Index: 1.57 1.5-2.3 cm/m2 LV Mass: 165.67 67-162/88-224 g LV Mass Index: 81.21 43-95/49-115 g/m2 LVOT Diam: 2.10 3.0+(-)1.3 cm Mitral Valve MV Pk E: 0.68 MV PK A: 0.99 MV Decel Time: 186.00 E/A: 0.70 E'Lateral: 10.20 E'Medial: 6.20 E/E' Med: 11.00 E/E' Lat: 6.70 PHT: 54.00 MVA PHT: 4.07 Decel Hitchcock: 3.66 Aortic Valve AoV Pk Tommy: 1.48 AoV Mn Tommy: 1.02 AoV VTI: 0.28 AoV Pk Grad: 9.00 Aov Mn Grad: 5.00 MATT Cont.VTI: 2.18 LVOT LVOT Pk Tommy: 0.82 LVOT Mn Tommy: 0.58 LVOT VTI: 0.18 LVOT Pk Grad: 3.00 LVOT Mn Grad: 2.00 LVOT Diam: 2.10 LVOT Area: 3.46 Diastolic Function MV Pk E: 0.68 MV Pk A: 0.99 E/A: 0.70 E'Medial: 6.20 E/E' Med: 11.00 E' Laterial: 10.20 E/E' Lat: 6.70 Right Ventricle TAPSE (mm): 18.90 TVS' Tommy: 9.03 Tricuspid Valve TR Pk Tommy: 2.00 TR Pk Grad: 16.00 RA Press: 3.00 RVSP: 19.00 Great Vessels Aorta Sinus of Valsalva: 2.74 2.0-3.[address] Ridge: 2.27 1.7-3.4 cm Ao Asc: 3.10 2.1-3.4 cm Ao Arch: 2.70 Updated in Other Vendor System with Status of Final Demarcus Reeves MD electronically signed on 06/20/2025 4:54:20 PM with status of Final
--- OUTSIDE RECORDS SUMMARY | 2025-06-19 12:28 | XMS_ITS | Clinical Summary ---
Author Organization [facility] Address [address] [address] Phone Care Team Providers Care Mediator Name Role Phone Pcp, Unknown Primary Care Provider Unavailabl e Social History Tobacco Use Types Packs/Day Years Used Date Smoking Tobacco: Never Assessed Education Answer Date Recorded Are you interested in more education? Not on artur e 02/24/2023 Are you concerned about learning? Not on file 02/24/2023 No 02/24/2023 No 02/24/2023 Digital Access Answer Date Recorded No 03/25/2023 No 03/25/2023 No 03/25/2023 Reliable internet access at home? Not on file 03/25/2023 Device with a working camera? Not on file Comments Unknown Sex and Gender Information Value Date Recorded Sex Assigned at Not on file Legal Sex Female 7:54 AM EDT Gender Identity Not on file Sexual Orientation Not on file Plan of Treatment Health Maintenance Due Date Last Done Comments Adult Td,Tdap Booster 1960 LIPID PANEL 1960 DEPRESSION SCREENING 1970 SMOKING Hx and SMOKELESS TOB ACCO SCREENING 1971 HEPATITIS C SCREENING 02/17/1976 MAMMOGRAM 1998 COLOGUARD 2003 COLONOSCOPY 2003 COLORECTAL CANCER SCREENING 2003 FIT TEST 2003 FOBT 2003 SIGMOIDOSCOPY 2003 VIRTUAL COLONOSCOPY 2003 ZOSTER VACCINES (1 of 2) 02/17/2008 PNEUMOCOCCAL VACCINES (50+ y ears) (2 of 2 - PCV) 08/05/2020 08/05/2019 OSTEOPOROSIS SCREENING INITI AL (ONE-TIME) 2023 COVID-19 VACCINE (2 - 2023-2 5 season) 2024 01/07/2021 RSV VACCINE (1 - 1-dose 75+ series) 2033 HEPATITIS A VACCINES Aged Out No long er eligible based on patient's age to complete this topic HIB VACCINES Aged Out No longer eligi ble based on patient's age to complete this topic MENINGOCOCCAL VACCINES (ACWY) Aged Out No longer eligible based on patient's age to complete this topic MENINGOCOCCAL VACCINES (B) Aged Out N o longer eligible based on patient's age to complete this topic Medical Devices Not on file Insurance CARE MEDICARE REPLACEMENT MEDICARE REPLACEMENT CARE MEDICARE REPLACEMENT CARE MEDICARE REPLACEMENT CARE MEDICARE REPLACEMENT CARE MEDICARE REPLACEMENT MEDICARE REPLACEMENT MEDICARE REPLACEMENT [facility] CARE MEDICARE REPLACEMENT JAIRO LIM [id number] Care Teams Mediator Relationship Specialty Start Date End Date Pcp, Unknown PCP - General 05/20/20 Additional Source Comments The information contained in this document represents components of the legal health record. It is not the complete legal health record.[facility]
== END ==
LOC: HO.CARD 10:55
PROVIDERS: PCP Internal Medicine; Visit Provider Internal Medicine
DX: R93.1 Abnormal findings on diagnostic imaging of heart and coronary circulation (principal)
CPT/HCPCS: 93306; Q9957

== ENCOUNTER → 2025-06-19 10:58 | Outpatient (BNV) | payer OTHER, SELFPAY | PROVIDERS: PCP Internal Medicine; Visit Provider Internal Medicine Cardiovascular Disease | DX: I34.0 Nonrheumatic mitral (valve) insufficiency (principal); I51.89 Other ill-defined heart diseases | CPT/HCPCS: 93306 ==

== ENCOUNTER 2025-06-25 13:46 | Emergency (ER) | payer OTHER, SELFPAY ==
[2025-06-25] VITALS (8 sets, daily range): BP systolic 113–142; BP diastolic 73–84; PULSE 93–114; RESP 15–20; TEMP 36.7–36.8; O2SAT 98–100; BMI 47.6
--- NOTE | ~2025-06-25 | XR_ITS ---
EXAMINATION: XR CHEST CLINICAL INFORMATION: tachycardia COMPARISON: June 13, 2025 TECHNIQUE: 2 views of the chest were obtained. FINDINGS: Lungs are clear and well aerated. There is no pleural effusion. Heart and stomach contours are within normal limits. 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 XR/XR chest 2V IMPRESSION: No acute disease Electronically signed by: Yunier Landry MD 06/25/2025 03:53 PM EDT
--- NOTE | ~2025-06-25 | CT_ITS ---
CLINICAL HISTORY: persistent SOB, pleuritic chest pain CT angiography chest with contrast. 3D Postprocessing. Comparison: None provided Findings: The heart size is normal. RV/LV ratio is normal. Unremarkable thoracic aorta and great vessels. No aneurysm. There is no significant mediastinal adenopathy or pericardial effusion. Reference axial image [id number], there is nonocclusive pulmonary embolism within the right middle and lower lobes. Possible distal subsegmental left lower lobe PE. Low clot burden. Lungs demonstrate mild dependent changes. No effusion or pneumothorax. The visualized upper abdomen is unremarkable. No acute osseous finding. Impression: The study is positive for a small volume of right lower lobe pulmonary embolism as detailed. No heart strain by CT. This document has been electronically signed by: Darin Roque MD on 06/25/2025 19:40:39
--- NOTE | ~2025-06-25 | US_ITS ---
CLINICAL HISTORY: LE Pain, R>L, Newly Dx PE Venous duplex ultrasound bilateral lower extremity Comparison: None provided Findings: The visualized deep veins are fully compressible with normal Doppler color flow and spectral tracings. No popliteal cyst. IMPRESSION: 1. Negative for bilateral lower extremity deep vein thrombosis. This document has been electronically signed by: Darin Roque MD on 06/25/2025 21:13:35
--- NOTE | 2025-06-25 13:50 | ECG_ITS ---
Test Reason : tachycardia Blood Pressure : */* mmHG Vent. Rate : 103 BPM Atrial Rate : 103 BPM P-R Int : 156 ms QRS Dur : 92 ms QT Int : 334 ms P-R-T Axes : 52 8 18 degrees QTcB Int : 437 ms Sinus tachycardia RSR' or QR pattern in V1 suggests right ventricular conduction delay Borderline ECG When compared with ECG of 13-Jun-2025 21:12, No significant change was found Referred By: Radha Corcoran Electronically Signed By: MONIK JUAREZ
[2025-06-25 14:21] LABS: Glucose, Whole Blood 81 mg/dL (60-115); MANUAL DIFF FLAG NO
--- NOTE | 2025-06-25 14:21 | ED_ITS ---
HPI - Chest Pain General Chief Complaint: Chest Pain Stated Complaint: TACHYCARDIA Time Seen by Provider: 06/25/25 14:18 Source: patient, EMS, RN notes reviewed, old records reviewed and interpreter and translator Mode of arrival: EMS Limitations: language barrier (Albanian-speaking) History of Present Illness ED Provider: Leslee Dennis PA-C HPI narrative: 65-year-old female with medical history of ROB not on CPAP but 1L PRN [place] O2, HLD, obesity, arthritis, UTI, encephalopathy, polypharmacy, GERD, gastroparesis, HLD presenting to the emergency department today due to concerns of elevated blood pressure, chest pain and shortness of breath that began this morning. Patient states she has at home when she checked her blood pressure with home BP cuff and had an elevated reading although she can not tell me what that reading was. Patient states she was up making breakfast when she began to experience left-sided chest pain that she describes as a constant pressure that is worse when she is walking, and on deep inspiration. Patient states she was seen recently in the department on 06/13/2025 for same symptoms and is concerned as these symptoms have not improved since discharge. Related Data Home Medications ?Medication ?Instructions ?Recorded ?Confirmed oxygen-air delivery systems ##1 08/24/20 02/17/25 topiramate 100 mg tablet 100 mg PO BID 07/13/2202/17 amitriptyline 100 mg tablet 100 mg PO BEDTIME 08/23/23 02/17/25 bupropion HCl 300 mg 24 hr tablet, 300 mg PO DAILY 02/17/25 extended release benralizumab 30 mg/mL subcutaneous 30 mg subcut Q8W 02/17/25 syringe (Fasenra) clonazepam 1 mg tablet 1 mg PO DAILY Anxiety 02/17/25 lamotrigine 200 mg tablet 200 mg PO DAILY 01/27/24 pantoprazole 40 mg tablet,delayed 40 mg PO BID 4 02/17/25 release simethicone 125 mg tablet 125 mg PO QID PRN GAS 01/2602/17/25 tramadol 50 mg tablet 50 mg PO Q6H PRN Pain 02/17/25 gabapentin 400 mg capsule 400 mg PO TID 03/26/2402/17 zolpidem 10 mg tablet 10 mg PO BEDTIME PRN 4 02/17/25 Previous Rx's ?Medication ?Instructions ?Recorded shower seat #1 ea 11/23/20 miscellaneous medical supply #1 ea 12/22/20 electric wheelchair #1 ea 04/30/22 blood pressure kit-extra large #1 ea 08/29/22 wheeled table with drawers #1 ea 12/05/22 adult diapers pull-ups #240 ea 02/13/23 nebulizers (AeroEclipse II #1 ea 05/15/23 Nebulizer) carboxymethylcellulose sodium 0.5 1 drp ophthalmic (ey e) BID PRN dry 10/05/23 % eye drops in a dropperette eye(s) 30 days #30 ea diphenhydramine HCl 25 mg capsule 25 mg PO BEDTIME PRN sleep #30 caps 10/05/23 (Banophen) cromolyn 4 % eye drops 1 drp ophthalmic (eye) 6XD 3 0 days 12/18/23 #10 mL lidocaine HCl 4 % topical ointment See Rx Instructions topical 01/31/24 (AsperFlex (lidocaine HCl)) .COMPLEX herpes zoster #10 0 grams cetirizine 10 mg tablet 10 mg PO DAILY PRN allergy 0 03/09/24 symptoms 90 days #90 tabs disposable gloves #200 ea 06/06/24 flushable wipes #240 ea 06/06/24 underpads (Bed Underpads) #100 ea 07/24/24 recliner with power buttons #1 ea 07/31/24 POWER LIFT RECLINER #1 ea 09/10/24 docusate sodium 100 mg capsule 100 mg PO BID #20 caps 09/22/24 (Colace) ketorolac 10 mg tablet 10 mg PO TID PRN pain 5 days #15 09/22/24 tabs polyethylene glycol 3350 17 17 g PO BID PRN constipati on #238 09/22/24 gram/dose oral powder (Miralax) grams rosuvastatin 10 mg tablet 10 mg PO DAILY #90 tabs 12/0 12/23 chair, wheel (Wheel chair) #1 ea 10/03/24 commode (bedside commode) #1 ea 10/03/24 lidocaine 5 % topical patch 1 patch topical DAILY hip pain 10/03/24 (Lidoderm) #30 ea lubiprostone 24 mcg capsule 24 mcg PO BID #180 caps diclofenac sodium 1 % topical gel 4 g topical QID #100 grams 10/09/24 acetaminophen 325 mg tablet 325 mg PO QID PRN Pain 30 days 11/12/24 #120 tabs albuterol sulfate 90 mcg/actuation 2 puff inhalation Q 4H PRN Wheezing 11/12/24 aerosol inhaler #8.5 grams lactulose 10 gram/15 mL oral 10 g (15 mL) PO BEDTIME P RN 11/12/24 solution constipation 30 days #237 mL levothyroxine 50 mcg tablet 50 mcg PO DAILY@0630 #90 t abs 11/17/24 wheelchair #1 ea 11/27/24 sodium,potassium,mag sulfates 17.5 See Rx Instructions PO .COMPLEX 12/09/24 gram-3.13 gram-1.6 gram oral soln #354 mL (Suprep Bowel Prep Kit) esomeprazole magnesium 40 mg 40 mg PO DAILY #90 caps 0 12/30/24 capsule,delayed release chlorhexidine gluconate 0.12 % 15 ml buccal DAILY 30 d ays #450 mL 01/14/25 mouthwash celecoxib 200 mg capsule (Celebrex) 200 mg PO DAILY 7 days #7 caps 02/17/25 cyclobenzaprine 5 mg tablet 5 mg PO TID PRN muscle spa sm 3 02/19/25 days #9 tabs lidocaine 5 % topical patch 1 patch topical DAILY #15 ea 02/19/25 oxycodone 5 mg tablet 5 mg PO TID PRN severe pain (scale 02/19/25 score 7-10) #6 tabs albuterol sulfate 2.5 mg/3 mL 2.5 mg (3 mL) inhalation Q6H PRN 03/18/25 (0.083 %) solution for nebulization for wheezing #150 mL famotidine 40 mg tablet (Pepcid) 40 mg PO BEDTIME #30 tabs 05/14/25 cholecalciferol (vitamin D3) 25 25 mcg PO DAILY #30 ca ps 06/19/25 mcg (1,000 unit) capsule (Vitamin D3) meloxicam 15 mg tablet 15 mg PO DAILY for pain #30 tabs 06/19/25 fluticasone fur. 200 mcg-umeclid 1 inh inhalation ANA ROSA Y 30 days #60 06/20/25 62.5 mcg-vilant 25 mcg ea inhalat.powder (Trelegy Ellipta) apixaban 5 mg (74 tabs) tablets in 5 mg PO BID #74 ea 06/25/25 a dose pack (Eliquis DVT-PE Treat 30D Start) Allergies Allergy/AdvReac Type Severity Reaction Status Date / Time senna AdvReac Intermediate Dizziness Verified 06/25/25 14:00 Review of Systems 2 Review of Systems: CONST: Negative for fever, body aches and chills. HENT: Negative for neck pain/stiffness, headache, congestion, sore throat, swelling. EYES: Negative for discharge/pain or vision changes. RESP: Negative for cough/hemoptysis. POS SOB CV: Negative difficulty breathing, palpitations. POS midsternal chest pain ABD: Negative pain, nausea, vomiting. : Negative increase frequency, dysuria, blood in urine or stool. MUSC: Negative for muscle aches, edema. SKIN: Negative rash, lesions/sores. NEURO: Negative headache, dizziness, weakness. [facility] Past Medical History Attestation statement: The following information was validated with the patient. Source: old records reviewed and nursing notes reviewed Medical History Pre-op evaluation Polyarticular osteoarthritis Avascular necrosis of bones of both hips Dysuria Morbid obesity Avascular necrosis Physical exam Well woman exam RSV (acute bronchiolitis due to respiratory syncytial virus) Chest pain Palpitations URI (upper respiratory infection) Snoring Encounter for screening for malignant neoplasm of colon Lumbar pain Urinary incontinence Low blood pressure Allergic reaction UTI (urinary tract infection) Palpitations Morbid obesity with BMI of 40.0-44.9, adult Epigastric abdominal pain Oxygen dependent Hypothyroidism Hypersomnia ILD (interstitial lung disease) ROB on CPAP History of ESBL E. coli infection Obstructive sleep apnea Moderate recurrent major depression Urinary retention Acute and chronic respiratory failure with hypoxia COVID-19 Lupus (systemic lupus erythematosus) Polyarthralgia Neck mass Eosinophilia Severe asthma Asthma-COPD overlap syndrome Trigger finger of right hand Recurrent UTI Tachycardia Obesity Lumbar degenerative disc disease GERD (gastroesophageal reflux disease) Hemangioma Hypovitaminosis D Bipolar 1 disorder Depression with anxiety Insomnia COPD (chronic obstructive pulmonary disease) Surgical History Hx of hand surgery Hx of cardiac catheterization History of esophagogastroduodenoscopy (EGD) History of cystocele History of colonoscopy History of shoulder surgery History of carpal tunnel release History of hysterectomy History of section History of tonsillectomy Family History Family History Father Prostate cancer Mother No problems noted. Sister Nasopharyngeal cancer Social History Social History Household Members: None Household Members Other:: 1 Housing: Apartment Do you presently have visiting nurse or other home services: Yes (Has [employer]) Alcohol intake: never Comment: sleeping Patient Tobacco Use Status: Former Tobacco user Years Smoked: 14 +/- Smoked in Last 30 Days: No e-Cigarette/Vaping Use: Never Used Second Hand Smoke Exposure: No Use of substances other than those prescribed or required for medical reasons: No Advance Directives: Yes Advance Directives on File: Yes Advance Directives Date on File: 01/08/21 Do you have a plan to hurt others: No Plan service: No Current occupational status: disabled Current occupation: right and left handed--- HAS [employer] SERVICES Cognitive needs: Yes (walker ) Hearing needs: No Vision needs: Yes Physical Exam 2 Vital Signs: Vital Signs: Last Vital Signs Temp 98.3 F 06/25/25 21:57 Pulse 96 06/25/25 21:57 Resp 16 06/25/25 21:57 BP 134/84 06/25/25 21:57 Pulse Ox 100 06/25/25 21:57 O2 Del Method Room Air 06/25/25 21:57 O2 Flow Rate 2 06/25/25 16:55 BMI result Body Mass Index 47.6 GENERAL APPEARANCE: ?AxOx4, generally well-appearing, no acute distress. HEENT: ?NC, AT. MMM. EOMI, clear conjunctiva, oropharynx clear. NECK: ?Supple without lymphadenopathy.? No stiffness or restricted ROM. HEART:? Tachycardic rate and regular rhythm, normal S1/S2, no m/r/g LUNGS:? Diminished breath sounds of bilateral lung bases. No crackles or wheezes are heard. ABDOMEN: ?Soft, nontender, nondistended with good bowel sounds heard. BACK: No CVAT, no obvious deformity. EXTREMITIES: ?Without cyanosis, clubbing or edema. NEUROLOGICAL: ?Grossly nonfocal. Alert and oriented, moving all 4 extremities. Skin: ?Warm and dry without any rash. Course Course Course Narrative: 8:05 PM 06/25/2025 (Lydia GILL): Patient was signed out to this provider at shift change, in summary the patient is a 65-year-old female with history of COPD/asthma dependent on home O2, ROB, GERD, hypertension, hyperlipidemia, CAD, fibromyalgia, and morbid obesity, presenting to the ED for evaluation of shortness of breath with tachycardia. The patient reportedly was seen here last week for similar symptoms but also for altered mental status, at that time had no reported chest pain, CT head was unremarkable, patient was thought to be hypoxic secondary to noncompliance with home O2. Patient was discharged home but reports persistent symptoms, returns to the ED for re-evaluation, was found to be persistently tachycardic. Patient's laboratory evaluation today was reassuring, no leukocytosis, anemia, electrolyte insufficiency, BRAULIO, LFT abnormality, or elevated troponin. EKG was nonischemic. The patient was signed out this provider pending CTA to further evaluated persistent tachycardia. At this time the patient's CT has resulted and shows a right lower and middle lobe PE with low clot burden and no evidence of right heart strain. The patient is hemodynamically stable, normotensive, and not hypoxic with FiO2. The patient was informed of her findings, denies any previous history of PE or DVT, denies any active anticoagulation. The patient advises she has been experiencing right lower extremity pain behind her knee for the past 1-2 months which she has been treating with roll on anti-inflammatory lotions. The patient will be sent for lower extremity ultrasound to evaluate for and stage DVT. Patient will be started on Eliquis. At this time given the patient's hemodynamic instability, low clot burden, and lack of evidence of right heart strain, the patient will be appropriate for discharge home with Eliquis and outpatient follow up with PCP. The patient is appropriate for outpatient PE treatment based on Hestia criteria. The patient has been educated on reasons to return to the emergency department immediately for re-evaluation or inpatient observation. 9:57 PM 06/25/2025 (Lydia GILL): The patient's ultrasound is negative for DVT. Patient will be discharged home with Eliquis and outpatient follow up. Medications Administered Discontinued Medications Generic Name Dose Route Start Last Admin Trade Name Iamni PRN Reason Stop Dose Admin Apixaban 10 mg 06/25/25 20:13 06/25/25 20:18 Apixaban 5 Mg Tablet PO 06/25/25 20:14 10 mg ONCE ONE Administration Medical Decision Making Medical Decision Making MDM Narrative: 65-year-old female with medical history of ROB not on CPAP but 1L PRN [place] O2, HLD, obesity, arthritis, UTI, encephalopathy, polypharmacy, GERD, gastroparesis, HLD presenting to the emergency department today due to concerns of elevated blood pressure, chest pain and shortness of breath that began this morning. Patient states she has at home when she checked her blood pressure with home BP cuff and had an elevated reading although she can not tell me what that reading was. Patient states she was up making breakfast when she began to experience left-sided chest pain that she describes as a constant pressure that is worse when she is walking, and on deep inspiration. Patient states she was seen recently in the department on 06/13/2025 for same symptoms and is concerned as these symptoms have not improved since discharge. VS on initial observation-BP 136/79, tachycardic rate at 103 beats per minute, respiratory rate of 16, afebrile with oral temp of 98.1, O2 saturation 100 percent on 2 liters NC EKG reveals sinus tachycardia without ST-elevation/depression, T-wave abnormality initial troponin 3.0, 2nd troponin Labs without leukocytosis/leukopenia, H&H stable, no electrolyte abnormality, VBG shows elevated pH of 7.4 however on review this seems to be around patient's baseline no other VBG derangement. BNP WNL at 14, CXR without cardiomegaly or pleural effusion, no pitting edema of lower extremities, diminished breath sounds of bilateral bases however no crackles or rales- less likely CHF exacerbation will obtain CT chest for evaluation of PE as patient has unopposed estrogen exposure due to morbid obesity, with persistent SOB and tachycardia that she was seen in the department with approximately 1 week ago. Patient has not had recent CT chest in the department. Differential Diagnosis Differential Diagnoses: The differential diagnosis associated with the presentation includes CHF exacerbation Pulmonary embolism ACS Dysrhythmia Electrolyte abnormality Admission/Observation Consideration of admission/observation: Escalation of care including admission/observation considered Lab Data MDM Lab Attestation statement: I reviewed the patient's lab results. 06/25/25 14:16 06/25/25 14:41 Labs: Lab Results 06/25/25 06/25/25 06/25/25 Range/Units 14:16 14:22 14:41 WBC 7.3 (4.8-10.8) X10*3/uL RBC 4.41 (4.20-5.50) X10*6/uL Hgb 12.7 (12.0-16.0) g/dl Hct 40.2 (37.0-47.0) % MCV 91.2 (80.0-98.0) fL MCH 28.8 (27.0-33.0) pg MCHC 31.6 (31.0-35.0) g/dl RDW 15.4 (11.0-16.0) % Plt Count 324 (160-400) X10*3/uL MPV 9.5 (9.4-12.3) fL Immature Gran % (Auto) 0.7 H (0.0-0.4) % Neut % (Auto) 75.8 H (45-73) % Lymph % (Auto) 16.9 L (20-40) % Scurry % (Auto) 6.5 (2-11) % Eos % (Auto) 0.0 (0-4) % Baso % (Auto) 0.1 (0-2) % Lymph # (Auto) 1.2 (1.2-4.9) X10*3/uL Scurry # (Auto) 0.5 (0.1-1.2) X10*3/uL Eos # (Auto) 0.0 (0.0-0.4) X10*3/uL Baso # (Auto) 0.0 (0.0-0.2) X10*3/uL Abs Immat Gran (auto) 0.05 H (0.00-0.03) X10*3/uL Absolute Neuts (auto) 5.6 (2.0-8.3) x10*3/uL Absolute Nucleated RBC 0.000 (0.0-0.012) X10*3/uL Nucleated RBC % (auto) 0.0 (0.0-0.2) /100WBC PT 10.7 L (10.9-12.4) SEC INR 0.9 (0.9-1.1) VBG pH 7.48 H (7.32-7.43) VBG pCO2 31 mmHg VBG pO2 51 mmHg VBG HCO3 23 (22-26) mmol/L VBG O2 Saturation 86.0 % VBG Base Excess 1.4 mmol/L Sodium 143 (135-145) mmol/L Potassium 3.8 (3.3-5.1) mmol/L Chloride 110 H (96-108) mmol/L Carbon Dioxide 24 (22-29) mmol/L Anion Gap 13 (12-20) BUN 10 (9-16) mg/dL Creatinine 0.95 (0.5-1.4) mg/dL Estim Creat Clear Calc 64.9 Estimated GFR 59 POC Glucose 81 (60-115) mg/dL Random Glucose 91 (60-115) mg/dL Calcium 9.1 D (8.4-10.2) mg/dL Magnesium 2.2 (1.6-2.6) mg/dL Total Bilirubin 0.3 (0.0-1.0) mg/dL AST 28 (5-31) U/L ALT 16 (0-31) U/L Alkaline Phosphatase 92 (39-117) U/L Troponin I High Sens 3.0 (<3.5-17.0) ng/L B-Natriuretic Peptide 14 (<100) pg/mL Total Protein 6.8 (6.5-8.0) g/dL Albumin 4.0 (3.5-5.0) g/dL 06/25/25 Range/Units 17:38 WBC (4.8-10.8) X10*3/uL RBC (4.20-5.50) X10*6/uL Hgb (12.0-16.0) g/dl Hct (37.0-47.0) % MCV (80.0-98.0) fL MCH (27.0-33.0) pg MCHC (31.0-35.0) g/dl RDW (11.0-16.0) % Plt Count (160-400) X10*3/uL MPV (9.4-12.3) fL Immature Gran % (Auto) (0.0-0.4) % Neut % (Auto) (45-73) % Lymph % (Auto) (20-40) % Scurry % (Auto) (2-11) % Eos % (Auto) (0-4) % Baso % (Auto) (0-2) % Lymph # (Auto) (1.2-4.9) X10*3/uL Scurry # (Auto) (0.1-1.2) X10*3/uL Eos # (Auto) (0.0-0.4) X10*3/uL Baso # (Auto) (0.0-0.2) X10*3/uL Abs Immat Gran (auto) (0.00-0.03) X10*3/uL Absolute Neuts (auto) (2.0-8.3) x10*3/uL Absolute Nucleated RBC (0.0-0.012) X10*3/uL Nucleated RBC % (auto) (0.0-0.2) /100WBC PT (10.9-12.4) SEC INR (0.9-1.1) VBG pH (7.32-7.43) VBG pCO2 mmHg VBG pO2 mmHg VBG HCO3 (22-26) mmol/L VBG O2 Saturation % VBG Base Excess mmol/L Sodium (135-145) mmol/L Potassium (3.3-5.1) mmol/L Chloride (96-108) mmol/L Carbon Dioxide (22-29) mmol/L Anion Gap (12-20) BUN (9-16) mg/dL Creatinine (0.5-1.4) mg/dL Estim Creat Clear Calc Estimated GFR POC Glucose (60-115) mg/dL Random Glucose (60-115) mg/dL Calcium (8.4-10.2) mg/dL Magnesium (1.6-2.6) mg/dL Total Bilirubin (0.0-1.0) mg/dL AST (5-31) U/L ALT (0-31) U/L Alkaline Phosphatase (39-117) U/L Troponin I High Sens 3.3 (<3.5-17.0) ng/L B-Natriuretic Peptide (<100) pg/mL Total Protein (6.5-8.0) g/dL Albumin (3.5-5.0) g/dL Independent Interpretation I performed an independent interpretation of an: EKG, Plain X-Ray and CT Scan Interpretation: I personally interpreted the EKG which reveals sinus tachycardia with an RSR pattern in V1, no ST-elevation/depression, T-wave abnormality Vent. Rate : 103 BPM Atrial Rate : 103 BPM P-R Int : 156 ms QRS Dur : 92 ms QT Int : 334 ms P-R-T Axes : 52 8 18 degrees QTcB Int : 437 ms Sinus tachycardia RSR' or QR pattern in V1 suggests right ventricular conduction delay Borderline ECG When compared with ECG of 13-Jun-2025 21:12, No significant change was found I personally interpreted the chest x-ray which did not reveal cardiomegaly, pleural effusion, pulmonary edema, infiltrates or consolidations, I agree with the radiologist's interpretation Radiology Impression Discussion of test interpretation with radiology: I have reviewed the radiologist's reading. Radiologist Impression: CXR FINDINGS: Lungs are clear and well aerated. There is no pleural effusion. Heart and stomach contours are within normal limits. 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 XR/XR chest 2V IMPRESSION: No acute disease Electronically signed by: Yunier Landry MD 06/25/2025 03:53 PM EDT Dictated By: Yunier Landry MD Signed By: <Electronically signed by Yunier Landry MD in OV> 06/25/25 1553 CLINICAL HISTORY: persistent SOB, pleuritic chest pain CT angiography chest with contrast. 3D Postprocessing. Comparison: None provided Findings: The heart size is normal. RV/LV ratio is normal. Unremarkable thoracic aorta and great vessels. No aneurysm. There is no significant mediastinal adenopathy or pericardial effusion. Reference axial image [id number], there is nonocclusive pulmonary embolism within the right middle and lower lobes. Possible distal subsegmental left lower lobe PE. Low clot burden. Lungs demonstrate mild dependent changes. No effusion or pneumothorax. The visualized upper abdomen is unremarkable. No acute osseous finding. Impression: The study is positive for a small volume of right lower lobe pulmonary embolism as detailed. No heart strain by CT. This document has been electronically signed by: Darin Roque MD on 06/25/2025 19:40:39 CLINICAL HISTORY: LE Pain, R>L, Newly Dx PE Venous duplex ultrasound bilateral lower extremity Comparison: None provided Findings: The visualized deep veins are fully compressible with normal Doppler color flow and spectral tracings. No popliteal cyst. IMPRESSION: 1. Negative for bilateral lower extremity deep vein thrombosis. This document has been electronically signed by: Darin Roque MD on 06/25/2025 21:13:35 Independent Historian Clinical information obtained from an independent historian. History obtained from or confirmed by: EMS External Record Review External record reviewed: Inpatient record, Office record and Outpatient record Chronic Conditions Patient?s care impacted by: Other (ROB not on CPAP but 1L PRN [place] O2, HLD, obesity, arthritis, UTI, encephalopathy, polypharmacy, GERD, gastroparesis, HLD) Social Determinants Patient?s care significantly limited by Social Determinants of Health including: Other Social Determinant of Health Discharge Plan Discharge Clinical Impression: Pulmonary embolism Patient Disposition: Home, Self-Care Instructions: Pulmonary Embolism (ED), Blood Thinners (ED) Additional Instructions: Baljit por elegir el Departamento de Urgencias del [facility] M?dico [place] para mathias atenci?n m?dica hoy. La tomograf?a computarizada de hoy muestra que tiene un co?gulo de [place] en los l?bulos medio e inferior derechos de los pulmones. Afortunadamente, la tomograf?a no muestra evidencia de dede carga de co?gulo importante, sobrecarga card?riana derecha ni embolia en silla de montar. Adem?s, mathias presi?n arterial se campos mantenido estable y mathias nivel de ox?simona no campos disminuido mientras usaba mathias ox?simona suplementario de referencia. Dados estos hallazgos en la tomograf?a computarizada y estephania signos vitales tranquilizadores, en vince momento no hay indicaci?n de ingreso hospitalario ni de observaci?n continua en urgencias, y es seguro darle de rosy. Es extremadamente importante que tome Eliquis seg?n lo prescrito para evitar que los co?gulos se agranden y que estephania s?ntomas empeoren. No tome ibuprofeno, naproxeno, Aleve, Motrin ni otros WILLARD mientras bert Eliquis. [place] significa que tambi?n debe dejar de aide meloxicam. Consulte con mathias m?dico de cabecera sobre alternativas farmacol?gicas al meloxicam mientras bert Eliquis. Puede continuar tomando Tylenol seg?n las indicaciones. Consulte con mathias m?dico de cabecera para dede reevaluaci?n, un mejor manejo de estephania s?ntomas y atenci?n preventiva continua. Si no tiene un m?dico de cabecera, llame a [facility] al [phone] para asignarle molina nuevo. Mientras espera la asignaci?n de mathias nuevo m?dico de cabecera, puede llamar a nuestra Cl?alli de Atenci?n [facility] al [phone] para necesidades que no melony de emergencia. Regrese de inmediato al servicio de urgencias si presenta un cambio grave o repentino en estephania s?ntomas, rex un empeoramiento de la dificultad para respirar o el dolor en el pecho, si sufre un episodio de jose daniel desmayo o desmayo, si presenta fiebre superior a 38 ?C que no mejora con Tylenol, o si presenta cualquier otro s?ntoma o inquietud nuevo o que empeore. Thank you for choosing [facility]'s Emergency Department for your care today. Your CT today shows that you are suffering from a blood clot in the right middle and lower lobes of your lungs. Thankfully your CT shows no evidence of heavy clot burden, right heart strain, or saddle embolus. Additionally your blood pressure has remained stable, and your oxygen level has not dropped while using your baseline supplemental oxygen. Given these findings on CT and your reassuring vital signs, at this time there is no indication for admission to the hospital or continued ED observation, and it is safe to discharge you home. It is extremely important that you take Eliquis as prescribed to prevent your clots from getting larger and your symptoms from, getting worse. Please do not take ibuprofen, naproxen, Aleve, Motrin, or other NSAIDs while taking Eliquis. This means you also need to stop taking meloxicam. Please discuss medication alternatives for meloxicam while taking Eliquis with the your primary care provider. You may continue taking Tylenol as directed. Please follow up with your primary care physician for re-evaluation, additional management of your symptoms, and continued preventative care. If you do not have a primary care physician, please call the [facility] at [phone] to establish a new primary care physician. While waiting to establish your new primary care physician, you can call our [facility] at [phone] for non-emergency needs. Please return immediately to the emergency department if you develop a severe or sudden change in your symptoms such as worsening shortness of breath or chest pain, if you suffer a near fainting or fainting episode, if you develop a fever over 100.4 that does not improve with Tylenol, or any other new or worsening symptoms or concerns. Prescriptions: New Eliquis DVT-PE Treat 30D Start 5 mg (74 tabs) tablets,dose pack 5 mg PO BID Qty: 74 0RF No Action (DME) shower seat See Rx Instructions .Route .MEDSUPPLY Qty: 1 0RF Rx Instructions: As directed (DME) miscellaneous medical supply Misc See Rx Instructions .ROUTE .MEDSUPPLY Qty: 1 0RF Rx Instructions: OVERBED TABLE (DME) electric wheelchair See Rx Instructions .Route .MEDSUPPLY Qty: 1 0RF Rx Instructions: As directed (DME) wheeled table with drawers See Rx Instructions .Route .MEDSUPPLY Qty: 1 0RF Rx Instructions: As directed (DME) adult diapers pull-ups 2Xlarge See Rx Instructions .Route .MEDSUPPLY Qty: 240 6RF Rx Instructions: As directed (DME) nebulizers [AeroEclipse II Nebulizer] Misc See Rx Instructions .Route Qty: 1 0RF Rx Instructions: As directed cromolyn 4 % drops 1 drp ophthalmic (eye) 6XD 30 Days Qty: 10 1RF cetirizine 10 mg tablet 10 mg PO DAILY PRN (Reason: allergy symptoms) 90 Days Qty: 90 1RF (DME) flushable wipes See Rx Instructions .Route .MEDSUPPLY Qty: 240 6RF Rx Instructions: As directed (DME) disposable gloves Misc See Rx Instructions .Route Qty: 200 6RF Rx Instructions: As directed (DME) underpads [Bed Underpads] Pad See Rx Instructions .Route Qty: 100 6RF Rx Instructions: As directed (DME) recliner with power buttons See Rx Instructions .Route .MEDSUPPLY Qty: 1 0RF Rx Instructions: As directed (DME) POWER LIFT RECLINER See Rx Instructions .Route .MEDSUPPLY Qty: 1 0RF Rx Instructions: As directed rosuvastatin 10 mg tablet 10 mg PO DAILY Qty: 90 3RF (DME) bedside commode Kit See Rx Instructions .Route Qty: 1 0RF Rx Instructions: As directed (DME) Wheel chair Kit See Rx Instructions .Route Qty: 1 0RF Rx Instructions: As directed lubiprostone 24 mcg capsule 24 mcg PO BID Qty: 180 3RF levothyroxine 50 mcg tablet 50 mcg PO DAILY@0630 Qty: 90 0RF (DME) wheelchair See Rx Instructions .Route .MEDSUPPLY Qty: 1 0RF Rx Instructions: As directed esomeprazole magnesium 40 mg capsule,delayed release(DR/EC) 40 mg PO DAILY Qty: 90 2RF albuterol sulfate 2.5 mg /3 mL (0.083 %) solution for nebulization 2.5 mg inhalation Q6H PRN (Reason: for wheezing) Qty: 150 11RF meloxicam 15 mg tablet 15 mg PO DAILY Qty: 30 1RF cholecalciferol (vitamin D3) [Vitamin D3] 25 mcg (1,000 unit) capsule 25 mcg PO DAILY Qty: 30 1RF Trelegy Ellipta 200-62.5-25 mcg blister with device 1 inh inhalation DAILY 30 Days Qty: 60 12RF lamotrigine 200 mg tablet 200 mg PO DAILY tramadol 50 mg tablet 50 mg PO Q6H PRN (Reason: Pain) pantoprazole 40 mg Tablet,Delayed Release (Dr/Ec) 40 mg PO BID simethicone 125 mg Tablet 125 mg PO QID PRN (Reason: GAS) Fasenra 30 mg/mL syringe 30 mg subcut Q8W clonazepam 1 mg tablet 1 mg PO DAILY docusate sodium [Colace] 100 mg capsule 100 mg PO BID Qty: 20 0RF polyethylene glycol 3350 [Miralax] 17 gram/dose powder 17 g PO BID PRN (Reason: constipation) Qty: 238 0RF ketorolac 10 mg tablet 10 mg PO TID PRN (Reason: pain) 5 Days Qty: 15 0RF Rx Instructions: Tolerated IM or IV in department cyclobenzaprine 5 mg tablet 5 mg PO TID PRN (Reason: muscle spasm) 3 Days Qty: 9 0RF lidocaine 5 % adhesive patch,medicated 1 patch topical DAILY Qty: 15 0RF Rx Instructions: leave on most painful area for up to 12 hrs oxycodone 5 mg tablet 5 mg PO TID PRN (Reason: severe pain (scale score 7-10)) Qty: 6 0RF Rx Instructions: Partial Fill upon patient request. (DME) oxygen-air delivery systems Device See Rx Instructions .ROUTE .MEDSUPPLY Qty: 1 Rx Instructions: As directed carboxymethylcellulose sodium 0.5 % dropperette 1 drp ophthalmic (eye) BID PRN (Reason: dry eye(s)) 30 Days Qty: 30 2RF diphenhydramine HCl [Banophen] 25 mg capsule 25 mg PO BEDTIME PRN (Reason: sleep) Qty: 30 0RF AsperFlex (lidocaine HCl) 4 % ointment See Rx Instructions topical .COMPLEX Qty: 100 0RF Rx Instructions: use 1-2 inch ointment and apply up to 3 times daily on L shoulder topically; topiramate 100 mg tablet 100 mg PO BID (DME) blood pressure kit-extra large Kit See Rx Instructions .Route Qty: 1 0RF Rx Instructions: As directed amitriptyline 100 mg tablet 100 mg PO BEDTIME bupropion HCl 300 mg tablet extended release 24 hr 300 mg PO DAILY zolpidem 10 mg tablet 10 mg PO BEDTIME PRN gabapentin 400 mg capsule 400 mg PO TID sodium,potassium,mag sulfates [Suprep Bowel Prep Kit] 17.5-3.13-1.6 gram recon soln See Rx Instructions PO .COMPLEX Qty: 354 0RF Rx Instructions: DILUTE; drink 1/2 at 6-8 pm and half at 11 PM- 1AM celecoxib [Celebrex] 200 mg capsule 200 mg PO DAILY 7 Days Qty: 7 0RF famotidine [Pepcid] 40 mg tablet 40 mg PO BEDTIME Qty: 30 11RF chlorhexidine gluconate 0.12 % mouthwash 15 ml buccal DAILY 30 Days Qty: 450 0RF acetaminophen 325 mg tablet 325 mg PO QID PRN (Reason: Pain) 30 Days Qty: 120 2RF albuterol sulfate 90 mcg/actuation HFA aerosol inhaler 2 puff inhalation Q4H PRN (Reason: Wheezing) Qty: 8.5 11RF lactulose 10 gram/15 mL solution 10 g PO BEDTIME PRN (Reason: constipation) 30 Days Qty: 237 2RF diclofenac sodium 1 % gel 4 g topical QID Qty: 100 4RF Rx Instructions: apply to knees and hands 4 times a day lidocaine [Lidoderm] 5 % adhesive patch,medicated 1 patch topical DAILY Qty: 30 0RF Rx Instructions: leave on most painful area for up to 12 hrs Referrals: Farideh Starr MD [Primary Care Provider, Internal Medicine] Clinical Impression: Pulmonary embolism Print Language: Hong Konger
[2025-06-25 14:24] LABS: Hematocrit 40.2 % (37.0-47.0); Hemoglobin 12.7 g/dl (12.0-16.0); Imm Gran Abs Auto 0.05 X10*3/uL (0.00-0.03); Imm Gran Pct Auto 0.7 % (0.0-0.4); Lymphocytes Absolute Auto 1.2 X10*3/uL (1.2-4.9); Mean Corpuscular HGB Conc 31.6 g/dl (31.0-35.0); Mean Corpuscular Hemoglobin 28.8 pg (27.0-33.0); Mean Corpuscular Volume 91.2 fL (80.0-98.0); NRBC Abs Auto 0.000 X10*3/uL (0.0-0.012); NRBC Pct Auto 0.0 /100WBC (0.0-0.2); Platelet Count 324 X10*3/uL (160-400); Red Blood Count 4.41 X10*6/uL (4.20-5.50); White Blood Count 7.3 X10*3/uL (4.8-10.8)
[2025-06-25 14:25] LABS: Venous Blood Gas Refer to POC result
[2025-06-25 14:26] LABS: VBG HCO3 23 mmol/L (22-26); VBG O2 % Saturation 86.0 %
[2025-06-25 14:43] LABS: B Type Natriuretic Peptide 14 pg/mL (<100)
[2025-06-25 14:55] LABS: INTERNATIONAL NORM RATIO 0.9 (0.9-1.1); Prothrombin Time 10.7 SEC (10.9-12.4)
[2025-06-25 14:59] LABS: Alanine Aminotransferase 16 U/L (0-31); Albumin Level 4.0 g/dL (3.5-5.0); Alkaline Phosphatase 92 U/L (39-117); Anion Gap 13 (12-20); Aspartate Amino Transferase 28 U/L (5-31); Blood Urea Nitrogen 10 mg/dL (9-16); Calcium 9.1 mg/dL (8.4-10.2); Carbon Dioxide 24 mmol/L (22-29); Chloride 110 mmol/L (96-108); Creatinine Clr Calc Pharmacy 64.9; Estimated Glomerular Filt Rate 59; Magnesium 2.2 mg/dL (1.6-2.6); Potassium 3.8 mmol/L (3.3-5.1); Sodium 143 mmol/L (135-145); Total Protein 6.8 g/dL (6.5-8.0)
[2025-06-25 15:07] LABS: Troponin-I High Sensitivity 3.0 ng/L (<3.5-17.0)
--- OUTSIDE RECORDS SUMMARY | 2025-06-25 15:28 | XMS_ITS | Encounter Summary ---
Author Organization [facility] Address [address] [facility] [address] [place] [id number] Phone Care Team Providers Care Dial Printer Name Role Phone Pcp, Unknown Primary Care Provider Unavailabl e Encounter Details Date Type Department Care Team (Late st Contact Info) Description 06/20/2020 Transcribe Orders [facility] Specimen Processing [address] [place] [address] Anton Stoddard MD [address] [facility] [address], [address] [place] [address] [email or web address] Encounter for screening laboratory testing for COVID-19 virus (Primary Dx) Social History Tobacco Use Types Packs/Day Years Used Date Smoking Tobacco: Never Assessed Comments Unknown Sex and Gender Information Value Date Recorded Sex Assigned at Not on file Legal Sex Female 7:54 AM EDT Gender Identity Not on file Sexual Orientation Not on file documented as of this encounter Plan of Treatment Not on file documented as of this encounter Procedures Procedure Name Priority Date/Time Associated Diagnosis Comments COVID-19 RT PCR Routine 06/20/2020 8:00 AM EDT COVID-19 PCR ORDER Routine 06/20/2020 8: 00 AM EDT Encounter for screening laboratory testing for COVID-19 virus documented in this encounter Results * COVID-19 RT-PCR (06/20/2020 8:00 AM EDT) Specimen Source/Descriptio n NASOPHARYNGEAL SWAB [facility] Comment NASOPHARYNGEAL SWAB [facility] SARS-CoV 2 (COVID-19) PCR Not Detected Not Detected [facility] Comment: Negative results do not preclude SARS-CoV-2 infection and should not be used as the sole basis for patient management decisions. Negative results must be combined with clinical observations, patient history, and epidemiological information. Optimum specimen types and timing for peak viral levels during infection by SARS-CoV-2 have not been determined. Collection of multiple specimens from the same patient may be necessary to detect the virus. This test has been authorized by the FDA under an Emergency Use Authorization (EUA) for use by authorized laboratories. 06/20/2020 8:00 AM EDT 06/20/2020 11:46 AM EDT Anton Stoddard MD BODY FLUIDS AND STOOLS ORDERABLE S Final Result Performing Organization Address City/State/[facility] Co de Phone Number [address] [address] * COVID-19 PCR Order (06/20/2020 8:00 AM EDT) Specimen Source NASOPHARYNGEAL SWAB (LICENSED REAL ESTATE BROKER) [facility] COVID Testing Status Sent to [facility] Other 06/20/2020 8:00 AM EDT 06/20/2020 11:46 AM EDT Anton Stoddard MD BODY FLUIDS AND STOOLS ORDERABLE S Final Result Performing Organization Address City/[facility] Co de Phone Number [address] [address] documented in this encounter Visit Diagnoses Diagnosis Encounter for screening laboratory testing for COVID-19 virus- Primary documented in this encounter Additional Health Concerns Infection Onset Date Last Indicated Resolved Time CoV-Exposed Comment:Recent close contact 06/18/2020 06/18/2020 07/02/2020 1:24 AM EDT CoV-Exposed Comment:Recent close contact 07/10/2020 07/10/2020 07/24/2020 1:23 AM EDT documented as of this encounter Care Teams Dial Printer Relationship Specialty Start Date End Date Pcp, Unknown PCP - General 05/20/20 documented as of this encounter Additional Source Comments The information contained in this document represents components of the legal health record. It is not the complete legal health record.[facility]
--- OUTSIDE RECORDS SUMMARY | 2025-06-25 15:28 | XMS_ITS | Clinical Summary ---
Author Organization [facility] Address [address] [address] Phone Care Team Providers Care Deputy Sheriff Chief Name Role Phone Pcp, Unknown Primary Care [...] CARE MEDICARE REPLACEMENT MEDICARE REPLACEMENT MEDICARE REPLACEMENT [facility] ONE CARE MEDICARE REPLACEMENT [place] [id number] Care Teams Deputy Sheriff Chief Relationship Specialty Start Date End Date Pcp, Unknown PCP - General 05/20/20 Additional Source Comments The information contained in this document represents components of the legal health record. It is not the complete legal health record.[facility]
--- NOTE | 2025-06-25 16:19 | PC.NURSE ---
Pt resting quietly in room; [facility]; awaiting dispo
[2025-06-25 18:07] LABS: Troponin-I High Sensitivity 3.3 ng/L (<3.5-17.0)
== END 2025-06-25 22:56 | disposition home or self-care (01) ==
PROVIDERS: Physician Assistant Medical; Emergency Provider Emergency Medicine; PCP Internal Medicine
DX: I26.99 Other pulmonary embolism without acute cor pulmonale (principal); M79.605 Pain in left leg; M79.604 Pain in right leg; R00.0 Tachycardia, unspecified; R07.9 Chest pain, unspecified; R06.02 Shortness of breath; G47.33 Obstructive sleep apnea (adult) (pediatric); Z99.81 Dependence on supplemental oxygen; Z79.899 Other long term (current) drug therapy
CPT/HCPCS: 36415; 71046; 71275; 80053; 82803; 82947; 83735; 83880; 84484; 85025; 85610; 93005; 93970; 99284; 99285

== ENCOUNTER → 2025-06-25 13:50 | Outpatient (BNV) | payer OTHER, SELFPAY | PROVIDERS: Emergency Provider Emergency Medicine; PCP Internal Medicine; Visit Provider Radiology Diagnostic Radiology | DX: R06.02 Shortness of breath (principal); R00.0 Tachycardia, unspecified; M79.662 Pain in left lower leg; M79.661 Pain in right lower leg | CPT/HCPCS: 71046; 71275; 93970 ==

== ENCOUNTER → 2025-06-25 13:50 | Outpatient (BNV) | payer OTHER, SELFPAY | PROVIDERS: Emergency Provider Emergency Medicine; PCP Internal Medicine; Visit Provider Internal Medicine | DX: R00.0 Tachycardia, unspecified (principal) | CPT/HCPCS: 93010 ==

== ENCOUNTER 2025-07-11 13:27 | Outpatient (AMB) | payer OTHER, SELFPAY ==
[2025-07-11 13:28] VITALS: BP 122/67; PULSE 102; O2SAT 98; BMI 46.4
--- NOTE | 2025-07-11 13:28 | A.OFFVIS_ITS ---
Vital Signs 07/11/25 13:28 Height 5 ft 1 in Weight 245 lb 13.047 oz BMI 46.4 BP 122/67 Blood Pressure Location Lt brachial Position Sitting Pulse 102 H Pulse Source Pulse Oximeter Pulse Oximetry (%) 98 Oxygen Delivery Method Nasal Cannula Oxygen Flow Rate 2 Intake Visit Reasons: PE f/u Allergies No Known Allergies Allergy (Verified 07/11/25 13:30) HPI Comments Details: The patient is a 65-year-old woman with a known history of Asthma COPD in addition to obstructive sleep apnea and respiratory failure oxygen, who recently moved to to the [facility] from [place]. Upon moving to [place], after few weeks she ended up with worsening respiratory status and she was admitted to [facility] with a COPD exacerbation and also possibility of pneumonia. She did undergo a CT scan of the chest demonstrating areas of atelectasis scarring also demonstrated hyperexpansion of the lungs. She has significant morbid obesity as well. The patient was treated and subsequently released. She has been using her rescue inhaler often. She typically uses Xopenex due to tachyarrhythmias. She responded well to Trelegy in the past. She also has a history of sleep apnea. However, since she moved to the [facility] he has not been able to use 1. She continues to have daytime drowsiness. Her Bow score is elevated 12/24. The patient also has multiple complaints including significant rashes in the chin is the eyes. In the office we did take her for brief walking oximetry. She quickly desaturated to 87% heart rate increased to the 130s 40s-1 appears to be an SVT. The patient is pretty symptomatic a mario score 8/10. At 2 L the patient's oxygen improved to 97%. She will continue using oxygen with a ctivity and also sleep. She still having issues with heart rate being elevated also is feeling tired and drowsy. We did review her sleep study demonstrating moderate sleep apnea. The patient does have significant issues with tachycardia and also hypoxia and sleep study. I did recommed she undergo a titration study at the hospital. In the meantime she can use the oxygen at home. Will set her up with an auto APAP at this time. Will also try to keep her on the oxygen and possible. When she situated with the CPAP will have to do an overnight oximetry to see if she is getting enough oxygenation. She continues use her respiratory therapy with good effect. She still waiting for echo. Currently on hold because of the circumstances. It appears that her white count is demonstrate significant eosinophilia suggesting eosinophilic induced asthma exacerbations and also the possibility of eosinophilic pneumonia. The patient at this point has been failing in aggressive respiratory regimen and she also has been on multiple courses of corticosteroid therapy. For this reason the patient will be a great candidate for L5 inhibitors,Fasenra in noted to improve her asthma control and also decrease the prednisone use. She continues use the oxygen with good effect. 10/24/2023 the patient is here for sick visit. Apparently she started developing worsening chest tightness wheezing cough. She could not tolerate the symptoms any longer and she was brought to the ER. She tested positive for RSV just yesterday. The patient was given Solu-Medrol and then discharged on prednisone. Her cough is congested. Moderate severity with yellow sputum. Positive sick contacts in the family. She has been using her respiratory therapy with good effect initially but now does not seem to be helping as much. She does have a nebulizer available. I did look at her x-ray did not demonstrate any acute disease which is reassuring. Will go ahead and have her start prednisone although she only got prednisone for 5 days so I will give her a prescription on paper that therefore she can continue. She will also start a course of doxycycline to treat her for postviral bacterial infections. She will monitor closely her asthma symptoms. She also has oxygen at home. If she notices that her oxygen levels are dropping even further then she may need to go back to the ER. 03/26/2024 the patient is here for pulmonary follow-up visit. Overall her breathing is better. The patient did have shoulder surgery after she is started developing shingles over the left shoulder area. She has been following closely with Infectious Disease. She has not significant post herpetic neuralgia. She will try using the Lidoderm patches over the chest area to try to minimize symptoms. In addition to that she continues use her respiratory medications with good effect. She has not had to use any rescue medicine or prednisone which is reassuring. The patient also has been having difficulty at nighttime because of this pain discomfort due to the post herpetic neuralgia. She does have oxygen available and she can use use the oxygen for now until she gets more comfortable. When she is more comfortable we can have her restart using the CPAP. 07/12/2024 the patient is here for a pulmonary follow-up visit. Since we last spoke she has had worsening cough. Chest congestion. [id number] s everity. She has been using all her respiratory therapy. Denies any sick contacts. She has been responding well to the Fasenra injection. That has controlled her asthma. In the meantime she appears to have a bout of bronchitis. Therefore go ahead treated with doxycycline. The patient also having issues with her post herpetic neuralgia pain. His primarily in the chest area effects of breathing. Therefore I will send her Lidoderm patches to see if this helps alleviate the discomfort that she can work on taking deep breaths. When she feels better she should restart using her CPAP regularly. She will bring her CPAP to the next visit. 01/14/2025 the patient is here for a pulmonary follow-up visit. Overall the patient has been doing okay from a respiratory status. Although she has had choking episodes. She has a hard time taking anything by mouth because it does not feel like it goes down right. She did undergo testing including a CT scan of the abdomen that I personally reviewed. In addition to a ultrasound of her liver. It appears that she is going to have an endoscopy with hopefully dilation of the esophagus to help her with her secretions. She may have a component of gastroparesis. At this point will go ahead and give her chlorhexidine that she can use daily to minimize aspiration pneumonia. And she can also try azithromycin 3 times a week as a promotility agent for 6-8 weeks to help her with her dysmotility issue prior to her procedure. She continues with respiratory therapy with good effect. She also continues uses CPAP at nighttime. CPAP therapy continues to be affecting beneficial. She knows that she needs use it 4 hours a night. 05/14/2025 the patient is here for pulmonary follow-up visit. Overall she is doing okay although she does have choking episodes. We did talk about that before. Will go ahead and set her up with the modified barium swallow with speech pathologist. In the meantime we did talk about the importance of following certain dysphagia recommendations. She also has reflux disease and it does complaint of dyspepsia. She is on a PPI. Will go ahead and add a H2 hpani. However, she needs to do a better job with the reflux diet. She does have significant amount of citrus see type of fruits and juices. She likes ice tea and coffee. Therefore we did talk about the fact that medications are not going to work by themselves that as far as improving her reflux diet is leal. She will follow-up with GI soon for her endoscopy. In the meantime the patient will continue her current respiratory therapy as prescribed. Will follow-up in a 4-5 months. If she has any issues prior to that she will call for an earlier assessment. To note the patient has not been using her CPAP although she is going to start using it since it is important for her to use. She is going to start using the daytime to get used to it and then she is going to bring it into the next visit. 07/11/2025 the patient is here for hospital follow-up visit. The patient apparently was having worsening shortness of breath and pleuritic chest pain. She was also complaining of calf discomfort for some time but she started rashes related to her arthritis and age-related issues. She went to the ER twice. The 2nd time the patient did have a CTA. It actually demonstrated a moderate-size right-sided pulmonary emboli. She was quickly placed on Eliquis. Prior to that she had gotten an echocardiogram about a week before demonstrating normal right ventricular function. Her troponin and brain atretic peptide had been also normal after being diagnosed with a PE therefore no evidence of any submassive effect. The patient seems to be doing okay although her oxygen requirements have increased which I explained to her make sense specially since the clot will take some time to resolve. She continues to tolerate the Eliquis 5 mg twice a day without any issues. No evidence of any minor major bleeding. At this moment it appears that the clots are unprovoked. She has had order screening except that she was due for colonoscopy. Now she is going to have to wait a little bit to stabilize her pulmonary vascular condition. The patient already has gotten the rest of her studies. Will go ahead and request blood work to assess her hypercoagulable state specially with this unprovoked event. There is a family history but extended family with clots. The patient has not been on any hormone therapy that I am aware of. Therefore, will plan to repeat her CTA to make sure that the clots or gone before any decision about the duration of therapy. [facility] Medical History Pre-op evaluation Polyarticular osteoarthritis Avascular necrosis of bones of both hips Dysuria Morbid obesity Avascular necrosis Physical exam Well woman exam RSV (acute bronchiolitis due to respiratory syncytial virus) Chest pain Palpitations URI (upper respiratory infection) Snoring Encounter for screening for malignant neoplasm of colon Lumbar pain Urinary incontinence Low blood pressure Allergic reaction UTI (urinary tract infection) Palpitations Morbid obesity with BMI of 40.0-44.9, adult Epigastric abdominal pain Oxygen dependent Hypothyroidism Hypersomnia ILD (interstitial lung disease) ROB on CPAP History of ESBL E. coli infection Obstructive sleep apnea Moderate recurrent major depression Urinary retention Acute and chronic respiratory failure with hypoxia COVID-19 Lupus (systemic lupus erythematosus) Polyarthralgia Neck mass Eosinophilia Severe asthma Asthma-COPD overlap syndrome Trigger finger of right hand Recurrent UTI Tachycardia Obesity Lumbar degenerative disc disease GERD (gastroesophageal reflux disease) Hemangioma Hypovitaminosis D Bipolar 1 disorder Depression with anxiety Insomnia COPD (chronic obstructive pulmonary disease) Surgical History Hx of hand surgery Hx of cardiac catheterization History of esophagogastroduodenoscopy (EGD) History of cystocele History of colonoscopy History of shoulder surgery History of carpal tunnel release History of hysterectomy History of section History of tonsillectomy Family History Father Prostate cancer Mother No problems noted. Sister Nasopharyngeal cancer Social History Household Members: None Household Members Other:: 1 Housing: Apartment Do you presently have visiting nurse or other home services: Yes (Has [employer]) Alcohol intake: never Comment: sleeping Patient Tobacco Use Status: Former Tobacco user Years Smoked: 14 +/- e-Cigarette/Vaping Use: Never Used Second Hand Smoke Exposure: No Advance Directives Date on File: 01/08/21 service: No Current occupational status: disabled Current occupation: right and left handed--- HAS [employer] SERVICES Cognitive needs: Yes (walker ) Hearing needs: No Vision needs: Yes Female Reproductive History Menstrual Age of Menarche: 12 Review of Systems Const Reports body aches Eyes Reports no additional complaints, Denies change in vision, Reports itchy eyes and Denies other visual disturbances ENT Reports dysphagia and Reports dizziness Card Reports chest pain, Denies chest pain at rest, Denies chest pain with activity, Denies edema, Denies irregular heart rhythm, Denies claudication, Reports dyspnea, Reports dyspnea on exertion, Denies orthopnea, Denies paroxysmal nocturnal dyspnea and Denies slow heart rate Resp Reports cough, Reports pain on inspiration, Reports pain with cough, Reports dyspnea, Reports dyspnea on exertion and Denies wheezing GI Reports abdominal pain, Reports dysphagia, Denies excessive flatus, Reports dyspepsia, Reports heartburn, Denies nausea and Denies vomiting Denies urinary incontinence, Denies urinary hesitancy and Denies urinary urgency Musc Reports abnormal gait, Denies atrophy, Denies deformity, Reports arthralgias and Denies limited range of motion Neuro Reports abnormal gait, Denies confusion and Reports dizziness Psych Denies confusion Aller/Immun Reports itchy eyes and Denies wheezing Physical Exam Vital Signs: Last Vital Signs Pulse 102 H 07/11/25 13:28 BP 122/67 07/11/25 13:28 Pulse Ox 98 07/11/25 13:28 Oxygen Delivery Method Nasal Cannula 07/11/25 13:28 Oxygen Flow Rate 2 07/11/25 13:28 BMI result Body Mass Index 46.4 Const General: No confusion Orientation/consciousness: No confusion HEENT General nose exam: Abnormal external nose present and Nasal discharge present Neck Neck: Yes supple Chest Chest palpation & inspection: normal inspection of the chest Resp Auscultation: no rales, no wheezes and diminished lung sounds Cardio Rate: regular rate Rhythm: regular rhythm Heart sounds: S1 normal heart sound present and S2 normal heart sound present GI Palpation (GI): Soft to palpation and nontender Auscultation: normal bowel sounds Skin General skin exam: rashes and/or lesions noted Neuro General: No confusion Results Reviewed Results Reviewed: personally reviewed CTA with moderate size right sided PE Assessment & Plan Assessment & Plan (1) Pulmonary embolism: Code(s): I26.99 - Other pulmonary embolism without acute cor pulmonale Category: Medical Qualifiers: Pulmonary embolism type: multiple subsegmental (without acute cor pulmonale) Qualified Code(s): I26.94 - Multiple subsegmental thrombotic pulmonary emboli without acute cor pulmonale (2) Severe asthma: Comment: Eosinophilic asthma Code(s): J45.909 - Unspecified asthma, uncomplicated Category: Medical Qualifiers: Asthma complication type: uncomplicated Asthma persistence: persistent Qualified Code(s): J45.50 - Severe persistent asthma, uncomplicated (3) Oxygen dependent: Comment: pulmonology note 12/21/22 states no longer qualifies for supplemental O2 Code(s): Z99.81 - Dependence on supplemental oxygen Category: Medical (4) GERD (gastroesophageal reflux disease): Code(s): K21.9 - Gastro-esophageal reflux disease without esophagitis Category: Medical Qualifiers: Esophagitis presence: without esophagitis Qualified Code(s): K21.9 - Gastro-esophageal reflux disease without esophagitis (5) ROB on CPAP: Code(s): G47.33 - Obstructive sleep apnea (adult) (pediatric); Z99.89 - Dependence on other enabling machines and devices Category: Medical (6) ILD (interstitial lung disease): Code(s): J84.9 - Interstitial pulmonary disease, unspecified Category: Medical Plan continue Trelegy 200 1 inhalation daily FERMIN as needed continue oxygen with sleep 2 L/min and with activity APAP. Needs to restart using it. Should bring it the CPAP to the next visit. EGD pending continue Fasenra continue Eliquis repeat CTA to address PE resolution bloodwork F/U 3-4 months Orders: Orders Prothrombin [id number] 07/11/25 I26.94 - Multiple subsegmental thrombotic pulmonary emboli without acute cor pulmonale Anti-Thrombin III Activity 07/11/25 I26.94 - Multiple subsegmental thrombotic pulmonary emboli without acute cor pulmonale Factor V Leiden 07/11/25 I26.94 - Multiple subsegmental thrombotic pulmonary emboli without acute cor pulmonale Lupus Anticoagulant Panel 07/11/25 I26.94 - Multiple subsegmental thrombotic pulmonary emboli without acute cor pulmonale Protein C Activity Reflex Ag 07/11/25 I26.94 - Multiple subsegmental thrombotic pulmonary emboli without acute cor pulmonale Protein S Activity reflex Ag 07/11/25 I26.94 - Multiple subsegmental thrombotic pulmonary emboli without acute cor pulmonale CT angio chest PE protocol 09/08/25 I26.94 - Multiple subsegmental thrombotic pulmonary emboli without acute cor pulmonale Medications: New apixaban (Eliquis) 5 mg PO BID 60 tabs 30 days Coding Level of Care Code Est Pt Level 5 (22368) Complex EM visit Add On G2211 Diagnoses Pulmonary embolism I26.94 Pulmonary embolism type: multiple subsegmental (without acute cor pulmonale) Severe persistent asthma without complication J45.50 Asthma complication type: uncomplicated Asthma persistence: persistent Oxygen dependent Z99.81 Gastroesophageal reflux disease without esophagitis K21.9 Esophagitis presence: without esophagitis ROB on CPAP G47.33; Z99.89 ILD (interstitial lung disease) J84.9 Time Spent (min) 60
== END 2025-07-11 14:00 | disposition home or self-care (01) ==
LOC: HO.HPS 13:28
PROVIDERS: PCP Internal Medicine; Visit Provider Hospitalist
DX: I26.94 Multiple subsegmental thrombotic pulmonary emboli without acute cor pulmonale (principal); J45.50 Severe persistent asthma, uncomplicated; Z99.81 Dependence on supplemental oxygen; K21.9 Gastro-esophageal reflux disease without esophagitis; G47.33 Obstructive sleep apnea (adult) (pediatric); Z99.89 Dependence on other enabling machines and devices; J84.9 Interstitial pulmonary disease, unspecified
CPT/HCPCS: 99215; G2211

== ENCOUNTER → 2025-07-11 13:27 | Outpatient (BNVA) | payer OTHER, SELFPAY | PROVIDERS: PCP Internal Medicine; Visit Provider Hospitalist | DX: I26.94 Multiple subsegmental thrombotic pulmonary emboli without acute cor pulmonale (principal); J45.50 Severe persistent asthma, uncomplicated; G47.33 Obstructive sleep apnea (adult) (pediatric); Z99.81 Dependence on supplemental oxygen; J84.9 Interstitial pulmonary disease, unspecified; K21.9 Gastro-esophageal reflux disease without esophagitis | CPT/HCPCS: 99212 ==

== ENCOUNTER 2025-07-15 12:33 | Outpatient (AMB) | payer OTHER, SELFPAY ==
[2025-07-15 12:42] VITALS: BP 110/64; PULSE 104; RESP 18; TEMP 36.3; O2SAT 94; BMI 45.6
--- NOTE | 2025-07-15 12:42 | MHC.PC.OV ---
Vital Signs 07/15/25 12:42 Height 5 ft 1 in Weight 241 lb 6 oz BMI 45.6 BP 110/64 Blood Pressure Location Lt brachial Position Sitting Respiration 18 Pulse 104 H Pulse Source Pulse Oximeter Temp 97.3 F Temp Source Temporal Artery Scan Pulse Oximetry (%) 94 Oxygen Delivery Method Room Air Intake Visit Reasons: annual exam Service Department Manager Required: No Accompanied by: Self / Same As Patient Allergies No Known Allergies Allergy (Verified 07/15/25 12:43) Tobacco use date assessed: 07/15/25 Fall risk assessment: No Falls in past year Last assessed Fall Risk: 07/15/25 Dental Screening Dental Screen Date: 07/15/25 Did you have a dental visit in the last 12 months?: Yes Did you have a dental problem in the last 6 months where you did not have access to dental care?: No Was dental information given to patient?: Patient has dentist HPI HPI Comments History of Present Illness Details The patient is a 65-year-old female presenting for a physical examination and management of chronic conditions. She was diagnosed with a pulmonary embolism less than a month ago and is currently on chronic anticoagulation therapy. The anticoagulation therapy has delayed her scheduled colonoscopy follow-up, which was initially recommended after her 2020 colonoscopy. The patient reports experiencing neck pain and low back pain, for which she is seeking a referral for pain management. Additionally, she is experiencing bilateral shoulder pain and requests an orthopedic referral. She has a history of hypothyroidism, and a thyroid-stimulating hormone (TSH) test will be ordered to monitor her condition. The patient also has dyslipidemia, and a lipid panel will be ordered to assess her cholesterol levels. The patient is morbidly obese with a BMI of 45.6, and she has been advised on diet and exercise to manage her weight. She has bipolar disorder and moderate recurrent major depression follow by Psychiatry. Asthma-COPD overlap syndrome is follow by pulmonology. She also complains of allergic conjunctivitis and would like eyedrops. [facility] Medical History (Updated 07/15/25 @ 13:23 by Farideh Marquez MD) Pre-op evaluation Polyarticular osteoarthritis Avascular necrosis of bones of both hips Dysuria Morbid obesity Avascular necrosis Physical exam Well woman exam RSV (acute bronchiolitis due to respiratory syncytial virus) Chest pain Palpitations URI (upper respiratory infection) Snoring Encounter for screening for malignant neoplasm of colon Lumbar pain Urinary incontinence Low blood pressure Allergic reaction UTI (urinary tract infection) Palpitations Morbid obesity with BMI of 40.0-44.9, adult Epigastric abdominal pain Oxygen dependent Hypothyroidism Hypersomnia ILD (interstitial lung disease) ROB on CPAP History of ESBL E. coli infection Obstructive sleep apnea Moderate recurrent major depression Urinary retention Acute and chronic respiratory failure with hypoxia COVID-19 Lupus (systemic lupus erythematosus) Polyarthralgia Neck mass Eosinophilia Severe asthma Asthma-COPD overlap syndrome Trigger finger of right hand Recurrent UTI Tachycardia Obesity Lumbar degenerative disc disease GERD (gastroesophageal reflux disease) Hemangioma Hypovitaminosis D Bipolar 1 disorder Depression with anxiety Insomnia COPD (chronic obstructive pulmonary disease) Surgical History Hx of hand surgery Hx of cardiac catheterization History of esophagogastroduodenoscopy (EGD) History of cystocele History of colonoscopy History of shoulder surgery History of carpal tunnel release History of hysterectomy History of section History of tonsillectomy Family History Father Prostate cancer Mother No problems noted. Sister Nasopharyngeal cancer Social History Household Members: None Household Members Other:: 1 Housing: Apartment Do you presently have visiting nurse or other home services: Yes (Has [employer]) Alcohol intake: never Comment: sleeping Patient Tobacco Use Status: Former Tobacco user Years Smoked: 14 +/- e-Cigarette/Vaping Use: Never Used Second Hand Smoke Exposure: No Advance Directives Date on File: 01/08/21 service: No Current occupational status: disabled Current occupation: right and left handed--- HAS [employer] SERVICES Cognitive needs: Yes (walker ) Hearing needs: No Vision needs: Yes Female Reproductive History Menstrual Age of Menarche: 12 Questionnaire PHQ-9 Over the last 2 weeks, how often have you been bothered by any of the following problems? 1. Little interest or pleasure in doing things: not at all 2. Feeling down, depressed, or hopeless: not at all 3. Trouble falling or staying asleep, or sleeping too much: nearly every day 4. Feeling tired or having little energy: several days 5. Poor appetite or overeating: not at all 6. Feeling bad about yourself - or that you are a failure or have let yourself or your family down: not at all 7. Trouble concentrating on things, such as reading the newspaper or watching television: not at all 8. Moving or speaking so slowly that other people could have noticed. Or the opposite - being so fidgety or restless that you have been moving around a lot more than usual: not at all 9. Thoughts that you would be better off or of hurting yourself in some way: not at all Total score: 4 Depression Screening Interpretation: Positive Depression Screening Follow-up: Existing condition and Follow-up Visit Requested Depression Screening Done: Yes 77942 - PHQ-9 Billing: Yes Source: Developed by Drs. Power Thornton, Melissa Peñaloza, Master Grijalva and colleagues, with an educational sudhir from [employer]. Thrive Questionnaire Date Thrive assessed: 11/19/24 I am a: Patient What is your living situation today?: I have a steady place to live Within the past 12 months, did the food you bought not last and you didn't have the money to get more?: Never true Within the past 12 months, did you worry whether your food would run out before you got money to buy more?: Never true Do you have trouble paying for medicines?: No Do you have trouble getting transportation to medical appointments?: No Do you have trouble paying your heating and electricity bill?: No Do you have trouble taking care of your child, family member or friend?: No Do you have trouble with day-to-day activities such as bathing, preparing meals, shopping, managing finances, etc.?: No Are you currently unemployed and looking for a job?: No Are you interested in more education?: No Please select the resources that you would like help with: None Currently or been in a relationship where the following occur: I choose not to answer THRIVE Score: 0 AUDIT C Alcohol Use Questionnaire (AUDIT-C) 1. How often do you have a drink containing alcohol?: Never Total Score: 0 Score Reviewed/Action Taken: No DAO-7 AMB Questionnaire DAO-7 Date DOA - 7 assessed: 11/19/24 Feeling nervous, anxious, or on edge: 0 = Not at all Not being able to stop or control worryin = Not at all Worrying too much about different things: 0 = Not at all Trouble relaxin = Not at all Being so restless that it is hard to sit still: 0 = Not at all Becoming easily annoyed or irritable: 0 = Not at all Feeling afraid as if something awful might happen: 0 = Not at all Total DAO-7 score (0-4 normal; 5-9 mild; 10-14 moderate; 15-21 severe): 0 Source: Developed by Drs. Power Thornton, Melissa Peñaloza, Master Grijalva and colleagues, with an educational sudhir from [employer]. DAO-7 Assessment Billing DAO-7 Assessment Tool: DAO-7 Assessment 82371 Review of Systems Const All systems reviewed & are unremarkable except as noted in HPI and below Card Denies chest pain at rest, Denies chest pain with activity, Denies edema, Denies irregular heart rhythm, Denies claudication, Denies dyspnea, Denies dyspnea on exertion, Denies orthopnea, Denies paroxysmal nocturnal dyspnea and Denies slow heart rate Resp Denies cough, Denies dyspnea and Denies dyspnea on exertion Physical exam (Primary Care) Vital Signs: Last Vital Signs Temp 97.3 F 07/15/25 12:42 Pulse 104 H 07/15/25 12:42 Resp 18 07/15/25 12:42 BP 110/64 07/15/25 12:42 Pulse Ox 94 07/15/25 12:42 Oxygen Delivery Method Room Air 07/15/25 12:42 BMI result Body Mass Index 45.6 BMI Assessment/Plan discussion: High BMI High, discussed plan: lifestyle, weight reduction, dietary and physical activity Tobacco/Smoking Status: Tobacco use Status Tobacco use date assessed 07/15/25 07/15/25 12:47 Patient Tobacco Use Status Former Tobacco user 07/15/25 12:47 Tobacco use type 06/13/24 13:49 e-Cigarette/Vaping Use Never Used 07/15/25 12:47 PHQ-9: PHQ-9 Score PHQ-9: Total score 4 07/15/25 13:27 Depression Screening Interpretation: Positive Depression Screening Follow-up: Existing condition and Follow-up Visit Requested Thrive Assessment: Date of Thrive Assessment Date Thrive assessed 11/19/24 07/15/25 12:47 Currently or been in a relationship where the following occur: I choose not to answer Resp Effort & Inspection: normal respiratory effort Auscultation: clear to auscultation bilaterally Cardio Jugular venous distension: no JVD Rate: regular rate Rhythm: regular rhythm Heart sounds: S1 normal heart sound present and S2 normal heart sound present Extrem General: Yes full ROM Immunizations pneumoc 20-jayda conj-dip cr(PF) 0.5 mL IM syringe Performing Provider: Farideh Marquez MD Performing Location: [facility] Administered by: ADRIANA Ryan on 07/15/25 13:35 Dose Route Admin Location Dispensed Lot Number Expiration Date NDC Boxer Operator 0.5 mL IM Left Deltoid 0.5 mL [id number] 06/30/26 0550-4816-07 [employer]PFIZER Total Dispensed Waste 0.5 mL 0 % VIS Given Date VIS Provided VIS Publication Date 07/15/25 Single Vaccine 25 Eligibility Eligibility Date Funding Source Not [facility] Eligible 07/15/25 Private Coding Level of Care Code Est Pt Level 4 (61001) Est Pt Prev Care >65y(40935) Diagnoses Physical exam Z00.00 Asthma-COPD overlap syndrome J44.9 Lumbar degenerative disc disease M51.36 Left shoulder pain M25.512 Right shoulder pain M25.511 Neck pain M54.2 Allergic conjunctivitis H10.10 Bipolar 1 disorder F31.9 Moderate recurrent major depression F33.1 Additional Codes DAO-7 Assessment Billing - DAO-7 Assessment Tool: DAO-7 Assessment 12047 ([id number]) PHQ-9 - 24119 - PHQ-9 Billing: Yes ([id number]) Time Spent (min) 39 Assessment & Plan Assessment & Plan (1) Physical exam: Code(s): Z00.00 - Encounter for general adult medical examination without abnormal findings Category: Medical (2) Asthma-COPD overlap syndrome: Comment: follows /[facility] Pulmonology Code(s): J44.9 - Chronic obstructive pulmonary disease, unspecified Category: Medical (3) Lumbar degenerative disc disease: Code(s): M51.36 - Other intervertebral disc degeneration, lumbar region Category: Medical (4) Left shoulder pain: Code(s): M25.512 - Pain in left shoulder Category: Medical (5) Right shoulder pain: Code(s): M25.511 - Pain in right shoulder Category: Medical (6) Neck pain: Code(s): M54.2 - Cervicalgia Category: Medical (7) Allergic conjunctivitis: Code(s): H10.10 - Acute atopic conjunctivitis, unspecified eye Category: Medical (8) Bipolar 1 disorder: Code(s): F31.9 - Bipolar disorder, unspecified Category: Medical (9) Moderate recurrent major depression: Code(s): F33.1 - Major depressive disorder, recurrent, moderate Category: Medical Plan Plan Patient was informed and verbally consented to the use of an ambient scribe for clinic note documentation during this visit. 1. Pulmonary Embolism The patient is currently on chronic anticoagulation therapy due to a recent diagnosis of pulmonary embolism. The colonoscopy follow-up has been postponed due to the anticoagulation therapy. 2. Neck Pain The patient is seeking a referral for pain management to address her neck pain. 3. Low Back Pain The patient is seeking a referral for pain management to address her low back pain. 4. Bilateral Shoulder Pain The patient requests an orthopedic referral for her bilateral shoulder pain. 5. Hypothyroidism A thyroid-stimulating hormone (TSH) test will be ordered to monitor the patient's hypothyroidism. 6. Dyslipidemia A lipid panel will be ordered to assess the patient's cholesterol levels due to her dyslipidemia. 7. Obesity The patient has been advised on diet and exercise to manage her obesity, with a BMI of 45.6. Orders: Orders Lipid Panel Today E78.5 - Hyperlipidemia, unspecified Vitamin B12 and Folate Today E53.8 - Deficiency of other specified B group vitamins Comprehensive Carriz[place]. Panel Fast Today Z00.00 - Encounter for general adult medical examination without abnormal findings Vitamin D 25-OH Total Today E55.9 - Vitamin D deficiency, unspecified Thyroid Stimulating Hormone Today E03.9 - Hypothyroidism, unspecified Pneumococcal 20 Immunization Today Z23 - Encounter for immunization Referrals Orthopedics Referral M25.511 - Pain in right shoulder, M25.512 - Pain in left shoulder Pain Management Referral M51.36 - Other intervertebral disc degeneration, lumbar region, M54.2 - Cervicalgia Medications: New cromolyn 4% 1 drp ophthalmic (eye) QID 10 mL 0RF 30 days H10.10 - Acute atopic conjunctivitis, unspecified eye
--- OUTSIDE RECORDS SUMMARY | 2025-07-15 16:37 | XMS_ITS | Encounter Summary ---
Author Organization [facility] Address [address] [facility] [address] [place] [phone] Phone Care Team Providers Care Vice President Of Development Name Role Phone Pcp, Unknown Primary Care Provider Unavailabl e Encounter Details Date Type Department Care Team (Late st Contact Info) Description 06/20/2020 Transcribe Orders [facility] Specimen Processing [address] [place] [address] Anton Stoddard MD [address] [facility] [address], [address] [place] [address] [email or web address] Encounter for screening laboratory testing for COVID-19 [...] AM EDT) Specimen Source/Descriptio n NASOPHARYNGEAL SWAB [facility] Comment NASOPHARYNGEAL SWAB [facility] SARS-CoV 2 (COVID-19) PCR Not Detected Not Detected [facility] Comment: Negative results do not preclude SARS-CoV-2 [...] ORDERABLE S Final Result Performing Organization Address City/State/[facility] Co de Phone Number [address] [address] * COVID-19 PCR Order (06/20/2020 8:00 AM EDT) Specimen Source NASOPHARYNGEAL SWAB ([employer]) [facility] COVID Testing Status [place] [facility] Other 06/20/2020 8:00 AM EDT 06/20/2020 11:46 AM EDT Anton Stoddard MD BODY FLUIDS AND STOOLS ORDERABLE S Final Result Performing Organization Address City/[facility] Co de Phone Number [address] [address] documented in this encounter Visit Diagnoses Diagnosis Encounter for screening laboratory testing for COVID-19 virus- Primary documented in this encounter Additional Health Concerns Infection Onset Date Last Indicated Resolved Time CoV-Exposed Comment:Recent close contact 06/18/2020 06/18/2020 07/02/2020 1:24 AM EDT CoV-Exposed Comment:Recent close contact 07/10/2020 07/10/2020 07/24/2020 1:23 AM EDT documented as of this encounter Care Teams Vice President Of Development Relationship Specialty Start Date End Date Pcp, Unknown PCP - General 05/20/20 documented as of this encounter Additional Source Comments The information contained in this document represents components of the legal health record. It is not the complete legal health record.[facility]
--- OUTSIDE RECORDS SUMMARY | 2025-07-15 16:37 | XMS_ITS | Clinical Summary ---
Author Organization [facility] Address [address] [address] Phone Care Team Providers Care Welding Machine Operator Gas Name Role Phone Pcp, Unknown Primary Care [...] 08/05/2019 OSTEOPOROSIS SCREENING INITI AL (ONE-TIME) 2023 INFLUENZA VACCINE (#1) 2025 08/05/2019 COVID-19 VACCINE (2 - 2024-2 6 season) 2025 01/07/2021 RSV VACCINE (1 - 1-dose 75+ [...] topic Medical Devices Not on file Insurance MEDICARE REPLACEMENT [place] [id number] MEDICARE REPLACEMENT [place] [id number] MEDICARE REPLACEMENT MEDICARE REPLACEMENT MEDICARE REPLACEMENT MEDICARE REPLACEMENT MEDICARE REPLACEMENT MEDICARE REPLACEMENT [address] [place] [address] ONE [employer] MEDICARE REPLACEMENT [place]O [place] [id number] Care Teams Welding Machine Operator Gas Relationship Specialty Start Date End Date Pcp, Unknown PCP - General 05/20/20 Additional Source Comments The information contained in this document represents components of the legal health record. It is not the complete legal health record.[facility]
== END 2025-07-15 13:30 | disposition home or self-care (01) ==
LOC: HO.HMCH 12:34
PROVIDERS: PCP Internal Medicine; Visit Provider Internal Medicine
DX: Z00.00 Encounter for general adult medical examination without abnormal findings (principal); J44.9 Chronic obstructive pulmonary disease, unspecified; F31.9 Bipolar disorder, unspecified; M25.512 Pain in left shoulder; M51.369 Other intervertebral disc degeneration, lumbar region without mention of lumbar back pain or lower extremity pain; M25.511 Pain in right shoulder; M54.2 Cervicalgia; H10.10 Acute atopic conjunctivitis, unspecified eye; Z23 Encounter for immunization

== ENCOUNTER → 2025-07-15 12:33 | Outpatient (BNVA) | payer OTHER, SELFPAY | PROVIDERS: PCP Internal Medicine; Visit Provider Internal Medicine | DX: Z00.00 Encounter for general adult medical examination without abnormal findings (principal); E66.01 Morbid (severe) obesity due to excess calories; M54.2 Cervicalgia; E03.9 Hypothyroidism, unspecified; J44.9 Chronic obstructive pulmonary disease, unspecified; M51.360 Other intervertebral disc degeneration, lumbar region with discogenic back pain only; M25.512 Pain in left shoulder; M25.511 Pain in right shoulder; H10.10 Acute atopic conjunctivitis, unspecified eye; F31.9 Bipolar disorder, unspecified; E78.5 Hyperlipidemia, unspecified; E55.9 Vitamin D deficiency, unspecified; E53.8 Deficiency of other specified B group vitamins; Z23 Encounter for immunization; Z86.711 Personal history of pulmonary embolism; Z68.42 Body mass index [BMI] 45.0-49.9, adult | CPT/HCPCS: 90471; 90677; 96127; 99212; 99397 ==

== ENCOUNTER 2025-08-14 14:52 | Outpatient (AMB) | payer OTHER, SELFPAY ==
[2025-08-14 14:55] VITALS: BP 133/76; PULSE 105; RESP 16; O2SAT 98; BMI 46.7
--- NOTE | 2025-08-14 14:55 | MHC.OFFVIS ---
Vital Signs 08/14/25 14:55 Height 5 ft 1 in Weight 247 lb BMI 46.7 BP 133/76 Blood Pressure Location Lt brachial Position Sitting Respiration 16 Pulse 105 H Pulse Source Pulse Oximeter Pulse Oximetry (%) 98 Oxygen Delivery Method Room Air Intake Visit Reasons: intervertebral disc degeneration, lumbar region Novelties Sales Representative Required: Yes Novelties Sales Representative Name: Ryanther Accompanied by: Daughter Allergies No Known Allergies Allergy (Verified 08/14/25 15:00) HPI Comments Details: Gracy is very pleasant 65 years old [place]-speaking female who presents in my office with multiple pain generators. He reports pain in the lower back, he reports pain in the bilateral hips more on the right and less on the left, he reports pain in bilateral knees. She reports that she is suffering from this pain for many years ago she in the past was treated for the painful conditions with injections. Because of her pain she can not sleep normally can not do activities of daily living can not take care of herself but she can function normally. She is on permanent disability and retired. Very severe pain all day long. In terms of tissue damage she describes her pain as stabbing, lancinating, hot burning, scalding, searing sensation. She had multiple images of the lumbar spine she reports in the past she had physical therapy which aggravated her pain. She received intra-articular right hip steroid injections which helps her pain. However recent x-ray demonstrated avascular necrosis see the report as below. She is severely morbidly obese she has remote history of epilepsy she is suffering from headaches, she has heart palpitations and chest pain angina. She is suffering from depression bipolar and anxiety she denies diabetes. She had surgery replacement surgery x3. She admits smoking cigarettes she admits drinking alcohol she drinks coffee and caffeinated beverages she denies recreational drugs. [facility] Medical History Pre-op evaluation Polyarticular osteoarthritis Avascular necrosis of bones of both hips Dysuria Morbid obesity Avascular necrosis Physical exam Well woman exam RSV (acute bronchiolitis due to respiratory syncytial virus) Chest pain Palpitations URI (upper respiratory infection) Snoring Encounter for screening for malignant neoplasm of colon Lumbar pain Urinary incontinence Low blood pressure Allergic reaction UTI (urinary tract infection) Palpitations Morbid obesity with BMI of 40.0-44.9, adult Epigastric abdominal pain Oxygen dependent Hypothyroidism Hypersomnia ILD (interstitial lung disease) ROB on CPAP History of ESBL E. coli infection Obstructive sleep apnea Moderate recurrent major depression Urinary retention Acute and chronic respiratory failure with hypoxia COVID-19 Lupus (systemic lupus erythematosus) Polyarthralgia Neck mass Eosinophilia Severe asthma Asthma-COPD overlap syndrome Trigger finger of right hand Recurrent UTI Tachycardia Obesity Lumbar degenerative disc disease GERD (gastroesophageal reflux disease) Hemangioma Hypovitaminosis D Bipolar 1 disorder Depression with anxiety Insomnia COPD (chronic obstructive pulmonary disease) Surgical History Hx of hand surgery Hx of cardiac catheterization History of esophagogastroduodenoscopy (EGD) History of cystocele History of colonoscopy History of shoulder surgery History of carpal tunnel release History of hysterectomy History of section History of tonsillectomy Family History Father Prostate cancer Mother No problems noted. Sister Nasopharyngeal cancer Social History Household Members: None Household Members Other:: 1 Housing: Apartment Do you presently have visiting nurse or other home services: Yes (Has [employer]) Alcohol intake: never Comment: sleeping Patient Tobacco Use Status: Former Tobacco user Years Smoked: 14 +/- e-Cigarette/Vaping Use: Never Used Second Hand Smoke Exposure: No Advance Directives Date on File: 01/08/21 service: No Current occupational status: disabled Current occupation: right and left handed--- HAS [employer] SERVICES Cognitive needs: Yes (walker ) Hearing needs: No Vision needs: Yes Female Reproductive History Menstrual Age of Menarche: 12 Review of Systems Const All systems reviewed & are unremarkable except as noted in HPI and below ENT Reports Normal hearing present Neuro Reports Normal hearing present, Denies Abnormal speech present, Denies confusion and Denies Sensory deficit (Neuro) Psych Denies confusion Physical Exam Vital Signs: Last Vital Signs Pulse 105 H 08/14/25 14:55 Resp 16 08/14/25 14:55 BP 133/76 08/14/25 14:55 Pulse Ox 98 08/14/25 14:55 Oxygen Delivery Method Room Air 08/14/25 14:55 BMI result Body Mass Index 46.7 Const General: no acute distress; No confusion Nutritional Appearance: obese morbidly obese Orientation/consciousness: patient oriented x3 and No confusion Eyes General: appearance normal, both eyes and all related structures Pupils: Equal, round and reactive pupils present EOM: EOMs intact bilaterally Neck Neck: Yes full ROM Chest Chest palpation & inspection: normal inspection of the chest Resp Effort & Inspection: normal respiratory effort, able to speak in complete sentences, normal respiratory pattern, no audible wheezes and no cough Cardio Jugular venous distension: no JVD GI Inspection: Yes normal to inspection Back/Spine/Pelvis Other: Ant test is positive on the right, pelvic compression L pelvic distraction tests are positive on the right, tenderness on palpation in the projection of the sacroiliac joint on the right. Neuro General: patient oriented x3, gait normal and No confusion Cranial nerves: Yes CN's II-XII intact bilaterally, Yes Equal, round and reactive pupils present, Yes Normal hearing present and Yes Ability to bilaterally elevate shoulders present Speech: No Abnormal speech present Gait exam (Neuro): Normal gait present Motor exam (neuro): 5/5 motor strength present throughout Sensory Exam: No Sensory deficit (Neuro) Extrem Other: Crepitus sensation with range of motion of bilateral knees. General: No pedal edema Psych Speech and movement: Normal speech and movement present Affect: normal affect Attitude: cooperative Thought process: Normal thought process present Thought content: Normal thought content present Insight: Good insight present (Psych) Judgement: Good judgement present (Psych) Assessment & Plan Assessment & Plan (1) Avascular necrosis of bones of both hips: Code(s): M87.051 - Idiopathic aseptic necrosis of right femur; M87.052 - Idiopathic aseptic necrosis of left femur Category: Medical (2) Sacroiliitis: Code(s): M46.1 - Sacroiliitis, not elsewhere classified Category: Medical (3) Sacroiliac joint dysfunction: Code(s): M53.3 - Sacrococcygeal disorders, not elsewhere classified Category: Medical (4) Osteoarthritis of knees, bilateral: Comment: R>L Code(s): M17.0 - Bilateral primary osteoarthritis of knee Category: Medical (5) Multiple joint pain: Code(s): M25.50 - Pain in unspecified joint Category: Medical (6) Sacroiliac joint dysfunction of right side: Code(s): M53.3 - Sacrococcygeal disorders, not elsewhere classified Category: Medical Plan This morbidly obese patient most likely would not benefit from steroid injections into bilateral hip joints because she has avascular necrosis injection of the steroids may aggravate this condition. I will refer this patient with avascular necrosis to orthopedics office. As of her right sacroiliac joint I can perform diagnose sacroiliac joint injection on the right to help the pain of this patient. If this will help pain of the patient use of peripheral nerve stimulation could be contemplated to help the pain of the patient. She also complains on pain in bilateral knees. In the past she received knee steroid injections as well as viscosupplementation injections. She reported minimal to moderate help from this procedure. We could consider genicular nerve blocks and genicular nerve radiofrequency ablation to help the pain of the patient. Orders: Referrals Orthopedics Referral M87.051 - Idiopathic aseptic necrosis of right femur, M87.052 - Idiopathic aseptic necrosis of left femur Coding Level of Care Code New Pt Level 3 (66546) Diagnoses Avascular necrosis of bones of both hips M87.051; M87.052 Sacroiliitis M46.1 Sacroiliac joint dysfunction M53.3 Osteoarthritis of knees, bilateral M17.0 Multiple joint pain M25.50 Sacroiliac joint dysfunction of right side M53.3
--- OUTSIDE RECORDS SUMMARY | 2025-08-14 18:43 | XMS_ITS | Encounter Summary ---
Author Organization [facility] Address [address] [facility] [address] [place] [id number] Phone Care Team Providers Care Md Urologist Name Role Phone Pcp, Unknown Primary Care Provider Unavailabl e Encounter Details Date Type Department Care Team (Late st Contact Info) Description 06/20/2020 Transcribe Orders [facility] Specimen Processing [address] [place] [address] Anton Stoddard MD [address] [facility] [address] [place] [address] [email or web address] Encounter for screening laboratory testing [...] AM EDT) Specimen Source/Descriptio n NASOPHARYNGEAL SWAB [facility] Comment NASOPHARYNGEAL SWAB [facility] SARS-CoV 2 (COVID-19) PCR Not Detected Not Detected [facility] Comment: Negative results do not preclude [...] ORDERABLE S Final Result Performing Organization Address City/State/[facility] Co de Phone Number [address] [address] * COVID-19 PCR Order (06/20/2020 8:00 AM EDT) Specimen Source NASOPHARYNGEAL SWAB (CRISIS THERAPIST) [facility] COVID Testing Status Sent to [facility] Micro Lab [facility] Other 06/20/2020 8:00 AM EDT 06/20/2020 11:46 AM EDT Anton Stoddard MD BODY FLUIDS AND STOOLS ORDERABLE S Final Result Performing Organization Address City/[facility] Co de Phone Number [address] [address] documented in this encounter Visit Diagnoses Diagnosis Encounter for screening laboratory testing for COVID-19 virus- Primary documented in this encounter Additional Health Concerns Infection Onset Date Last Indicated Resolved Time CoV-Exposed Comment:Recent close contact 06/18/2020 06/18/2020 07/02/2020 1:24 AM EDT CoV-Exposed Comment:Recent close contact 07/10/2020 07/10/2020 07/24/2020 1:23 AM EDT documented as of this encounter Care Teams Md Urologist Relationship Specialty Start Date End Date Pcp, Unknown PCP - General 05/20/20 documented as of this encounter Additional Source Comments The information contained in this document represents components of the legal health record. It is not the complete legal health record.[facility]
--- OUTSIDE RECORDS SUMMARY | 2025-08-14 18:43 | XMS_ITS | Clinical Summary ---
Author Organization [facility] Address [address] [address] Phone Care Team Providers Care Hat Cone Inspector Name Role Phone Pcp, Unknown Primary Care [...] on file Insurance MEDICARE REPLACEMENT [place] [id number] MEDICARE REPLACEMENT [place] [id number] MEDICARE REPLACEMENT MEDICARE REPLACEMENT MEDICARE REPLACEMENT MEDICARE REPLACEMENT MEDICARE REPLACEMENT MEDICARE [place] [address] [place] [address] [employer] MEDICARE REPLACEMENT [place]O [place] [id number] Care Teams Hat Cone Inspector Relationship Specialty Start Date End Date Pcp, Unknown PCP - General 05/20/20 Additional Source Comments The information contained in this document represents components of the legal health record. It is not the complete legal health record.[facility]
== END 2025-08-14 15:30 | disposition home or self-care (01) ==
LOC: HO.PMC 14:53
PROVIDERS: PCP Internal Medicine; Referring Provider Internal Medicine; Visit Provider Anesthesiology
DX: M87.051 Idiopathic aseptic necrosis of right femur (principal); M87.052 Idiopathic aseptic necrosis of left femur; M46.1 Sacroiliitis, not elsewhere classified; M53.3 Sacrococcygeal disorders, not elsewhere classified; M17.0 Bilateral primary osteoarthritis of knee; M25.50 Pain in unspecified joint
CPT/HCPCS: 99203

== ENCOUNTER → 2025-08-14 14:52 | Outpatient (BNVA) | payer OTHER, SELFPAY | PROVIDERS: PCP Internal Medicine; Referring Provider Internal Medicine; Visit Provider Anesthesiology | DX: M87.052 Idiopathic aseptic necrosis of left femur (principal); M87.051 Idiopathic aseptic necrosis of right femur; M17.0 Bilateral primary osteoarthritis of knee; M46.1 Sacroiliitis, not elsewhere classified; M53.3 Sacrococcygeal disorders, not elsewhere classified; M25.50 Pain in unspecified joint | CPT/HCPCS: 99202 ==

== ENCOUNTER 2025-08-24 12:59 | Emergency (ER) | payer OTHER, SELFPAY ==
[2025-08-24] VITALS (7 sets, daily range): BP systolic 103–127; BP diastolic 51–80; PULSE 80–96; RESP 15–19; TEMP 36.5–36.8; O2SAT 97–99; BMI 49.1
--- NOTE | ~2025-08-24 | CT_ITS ---
CLINICAL HISTORY: L flank pain CT abdomen and pelvis without contrast Comparison: CT/REG/SR - CT ABDOMEN PELVIS WO IV CON - 06/13/25 19:04 EDT Findings: Mild atelectasis at the lung bases. The gallbladder and solid organs are within normal limits. No renal stones. No bowel obstruction, pneumoperitoneum, or pneumatosis. Moderate stool. Hysterectomy. Ovaries not identified. Normal appendix. Mild urinary bladder distention. No inflammatory change or wall thickening. Moderate lumbar degenerative spondylosis. No acute fracture. IMPRESSION: 1. Moderate stool without bowel obstruction. 2. No urolithiasis or hydronephrosis. This document has been electronically signed by: Mitchell Lo MD on 08/24/2025 15:44:13
--- NOTE | 2025-08-24 13:22 | ED.GENADULT ---
HPI - General Adult General Chief complaint: Urogenital-Female Stated complaint: FLANK PAIN Time Seen by Provider: 08/24/25 13:10 Source: patient, RN notes reviewed and rn admissions Mode of arrival: ambulatory Limitations: language barrier History of Present Illness ED Provider: Evangelina Darby PA-C HPI narrative: This is a 65-year-old Beninese-speaking female, COPD, PE on Eliquis, ROB not on CPAP but 1L PRN NC O2, HLD, obesity, arthritis, UTI, encephalopathy, polypharmacy, GERD, gastroparesis, HLD, who presents to the ER with a complaint of left-sided flank pain, foul-smelling urine, urgency and dysuria. Patient states that 4 days ago her visiting nurse had performed a urine sample on her and was told that she had a urinary tract infection. At that time they did not start her on antibiotics. Patient states that her symptoms have only been getting worse. She reports worsening left-sided flank pain, urinary frequency, urgency, dysuria. She denies any fevers, she does report chills. No chest pain or shortness of breath. Denies any nausea or vomiting. No other complaints or concerns at this time. MD complaint: Urinary symptoms, left flank pain Onset (ago): day(s) Radiation: flank Severity: moderate Quality: aching Pain Consistency: constant Relieving factors: none Exacerbating factors: none Associated symptoms: denies other symptoms Treatments prior to arrival: none Related Data Home Medications ?Medication ?Instructions ?Recorded ?Confirmed oxygen-air delivery systems ##1 08/24/20 02/17/25 topiramate 100 mg tablet 100 mg PO BID 07/13/22 02/17/25 bupropion HCl 300 mg 24 hr tablet, 300 mg PO DAILY 08/23/23 02/17/25 extended release clonazepam 1 mg tablet 1 mg PO DAILY Anxiety 01/27/24 02/17/25 gabapentin 400 mg capsule 400 mg PO TID 03/26/24 02/17/25 Previous Rx's ?Medication ?Instructions ?Recorded shower seat #1 ea 11/23/20 miscellaneous medical supply #1 ea 12/22/20 electric wheelchair #1 ea 04/30/22 blood pressure kit-extra large #1 ea 08/29/22 wheeled table with drawers #1 ea 12/05/22 adult diapers pull-ups #240 ea 02/13/23 nebulizers (AeroEclipse II #1 ea 05/15/23 Nebulizer) carboxymethylcellulose sodium 0.5 1 drp ophthalmic (eye) BID PRN dry 10/05/23 % eye drops in a dropperette eye(s) 30 days #30 ea cromolyn 4 % eye drops 1 drp ophthalmic (eye) 6XD 30 days 12/18/23 #10 mL lidocaine HCl 4 % topical ointment See Rx Instructions topical 01/31/24 (AsperFlex (lidocaine HCl)) .COMPLEX herpes zoster #100 grams cetirizine 10 mg tablet 10 mg PO DAILY PRN allergy 03/09/24 symptoms 90 days #90 tabs disposable gloves #200 ea 06/06/24 flushable wipes #240 ea 06/06/24 underpads (Bed Underpads) #100 ea 07/24/24 recliner with power buttons #1 ea 07/31/24 POWER LIFT RECLINER #1 ea 09/10/24 docusate sodium 100 mg capsule 100 mg PO BID #20 caps 09/22/24 (Colace) rosuvastatin 10 mg tablet 10 mg PO DAILY #90 tabs 09/30/24 chair, wheel (Wheel chair) #1 ea 10/03/24 commode (bedside commode) #1 ea 10/03/24 lidocaine 5 % topical patch 1 patch topical DAILY hip pain 10/03/24 (Lidoderm) #30 ea diclofenac sodium 1 % topical gel 4 g topical QID #100 grams 10/09/24 acetaminophen 325 mg tablet 325 mg PO QID PRN Pain 30 days 11/12/24 #120 tabs albuterol sulfate 90 mcg/actuation 2 puff inhalation Q4H PRN Wheezing 11/12/24 aerosol inhaler #8.5 grams wheelchair #1 ea 11/27/24 esomeprazole magnesium 40 mg 40 mg PO DAILY #90 caps 12/30/24 capsule,delayed release cyclobenzaprine 5 mg tablet 5 mg PO TID PRN muscle spasm 3 02/19/25 days #9 tabs albuterol sulfate 2.5 mg/3 mL 2.5 mg (3 mL) inhalation Q6H PRN 03/18/25 (0.083 %) solution for nebulization for wheezing #150 mL fluticasone fur. 200 mcg-umeclid 1 inh inhalation DAILY 30 days #60 06/20/25 62.5 mcg-vilant 25 mcg ea inhalat.powder (Trelegy Ellipta) apixaban 5 mg (74 tabs) tablets in 5 mg PO BID #74 ea 06/25/25 a dose pack (Eliquis DVT-PE Treat 30D Start) chlorhexidine gluconate 0.12 % 15 ml buccal DAILY 30 days #450 mL 07/10/25 mouthwash lactulose 10 gram/15 mL oral 10 g (15 mL) PO BEDTIME PRN 07/10/25 solution constipation 30 days #237 mL apixaban 5 mg tablet (Eliquis) 5 mg PO BID 30 days #60 tabs 07/11/25 cromolyn 4 % eye drops 1 drp ophthalmic (eye) QID 30 days 07/15/25 #10 mL famotidine 40 mg tablet (Pepcid) 40 mg PO BEDTIME #30 tabs 07/15/25 levothyroxine 50 mcg tablet 50 mcg PO DAILY@0630 #90 tabs 07/15/25 lidocaine 5 % topical patch 1 patch topical DAILY #15 ea 07/15/25 amitriptyline 100 mg tablet 100 mg PO BEDTIME 90 days #90 tabs 07/22/25 zolpidem 10 mg tablet 10 mg PO BEDTIME PRN insomnia 30 07/22/25 days #30 tabs rollatoe walker with a seat #1 ea 08/15/25 cholecalciferol (vitamin D3) 25 25 mcg PO DAILY #30 caps 08/17/25 mcg (1,000 unit) capsule (Vitamin D3) acetaminophen 500 mg tablet 500 mg PO Q6H PRN pain #30 tabs 08/24/25 (Tylenol Extra Strength) cefuroxime axetil 250 mg tablet 250 mg PO BID 7 days #14 tabs 08/24/25 morphine 15 mg immediate release 15 mg PO Q6H PRN severe pain 08/24/25 tablet (scale score 7-10) #5 tabs Allergies Allergy/AdvReac Type Severity Reaction Status Date / Time No Known Allergies Allergy Verified 08/24/25 13:18 Review of Systems Review of Systems: Constitutional : No Fever, No Chills ENT/Mouth : No sore throat, No Rhinorrhea Eyes: No Eye Pain, No Swelling, No Redness Cardiovascular : No Chest Pain, No SOB Respiratory : No Cough, No Sputum Gastrointestinal : No Nausea, No Vomiting, No Diarrhea, No abdominal Pain Genitourinary : + Dysuria, No Hematuria Musculoskeletal : No joint pain, No Myalgias, No Joint Swelling Skin : No Skin Lesions Neuro : No Weakness, No Numbness, No Headache All other systems reviewed and are negative Yes all other systems are reviewed and are negative Constitutional: Constitutional: Reports as per [facility] Past Medical History Medical History Pre-op evaluation Polyarticular osteoarthritis Avascular necrosis of bones of both hips Dysuria Morbid obesity Avascular necrosis Physical exam Well woman exam RSV (acute bronchiolitis due to respiratory syncytial virus) Chest pain Palpitations URI (upper respiratory infection) Snoring Encounter for screening for malignant neoplasm of colon Lumbar pain Urinary incontinence Low blood pressure Allergic reaction UTI (urinary tract infection) Palpitations Morbid obesity with BMI of 40.0-44.9, adult Epigastric abdominal pain Oxygen dependent Hypothyroidism Hypersomnia ILD (interstitial lung disease) ROB on CPAP History of ESBL E. coli infection Obstructive sleep apnea Moderate recurrent major depression Urinary retention Acute and chronic respiratory failure with hypoxia COVID-19 Lupus (systemic lupus erythematosus) Polyarthralgia Neck mass Eosinophilia Severe asthma Asthma-COPD overlap syndrome Trigger finger of right hand Recurrent UTI Tachycardia Obesity Lumbar degenerative disc disease GERD (gastroesophageal reflux disease) Hemangioma Hypovitaminosis D Bipolar 1 disorder Depression with anxiety Insomnia COPD (chronic obstructive pulmonary disease) Surgical History Hx of hand surgery Hx of cardiac catheterization History of esophagogastroduodenoscopy (EGD) History of cystocele History of colonoscopy History of shoulder surgery History of carpal tunnel release History of hysterectomy History of section History of tonsillectomy Family History Family History Father Prostate cancer Mother No problems noted. Sister Nasopharyngeal cancer Social History Social History Household Members: None Household Members Other:: 1 Housing: Apartment Do you presently have visiting nurse or other home services: Yes (Has FAMILY SERVICES COORDINATOR) Alcohol intake: never Comment: sleeping Patient Tobacco Use Status: Former Tobacco user Years Smoked: 14 +/- e-Cigarette/Vaping Use: Never Used Second Hand Smoke Exposure: No Advance Directives Date on File: 01/08/21 service: No Current occupational status: disabled Current occupation: right and left handed--- HAS FAMILY SERVICES COORDINATOR SERVICES Cognitive needs: Yes (walker ) Hearing needs: No Vision needs: Yes Physical Exam ED Vital Signs: Vital Signs - 24 hr 08/24/25 13:16 08/24/25 14:45 08/24/25 16:49 Temperature 97.7 F 98.1 F 98.2 F Pulse Rate 91 80 95 Respiratory Rate 18 16 15 Blood Pressure 108/51 L 127/80 103/53 L Pulse Oximetry 99 97 98 Oxygen Delivery Method Room Air Room Air Room Air 08/24/25 18:17 08/24/25 19:24 Temperature 97.7 F 98 F Pulse Rate 96 93 Respiratory Rate 15 19 Blood Pressure 109/56 L 121/78 Pulse Oximetry 97 97 Oxygen Delivery Method Room Air Room Air BMI result Body Mass Index 49.1 Const General: cooperative, comfortable and no acute distress Orientation/consciousness: patient oriented x3 Limitations: no limitations [facility] Head: Yes normal to inspection, Yes normocephalic and Yes atraumatic Ears: hearing grossly normal bilaterally General nose exam: Normal external nose present Face and sinus: Yes normal facial exam Mouth: Normal oral and palatal mucosa present, oropharynx normal and moist mucous membranes Throat: Yes posterior oropharynx normal Eyes General: appearance normal, both eyes and all related structures Eyelids: Yes eyelids normal Conjunctivae: conjunctivae normal Sclerae: sclerae normal Pupils: Equal, round and reactive pupils present EOM: EOMs intact bilaterally Neck Neck: Yes normal visual inspection, Yes full ROM and Yes no lymphadenopathy Lymphatic: no lymphadenopathy noted Chest Chest palpation & inspection: normal inspection of the chest Resp Effort & Inspection: normal respiratory effort and able to speak in complete sentences Auscultation: clear to auscultation bilaterally, no crackles, no rales, no rhonchi and no wheezes Cardio Rate: regular rate Rhythm: regular rhythm Heart sounds: S1 normal heart sound present and S2 normal heart sound present GI Other: Abdomen is soft, nontender, nondistended Inspection: Yes normal to inspection Other: Left-sided CVA tenderness. Skin General skin exam: no rashes or lesions noted Trauma: no lacerations or abrasions Wounds: no wounds Neuro General: patient oriented x3 and moves all extremities Cranial nerves: Yes Equal, round and reactive pupils present Extrem General: Yes normal to inspection Right upper extremity: normal to inspection Left upper extremity: normal to inspection Right lower extremity: normal to inspection Left lower extremity: normal to inspection Medications Administered Discontinued Medications Generic Name Dose Route Start Last Admin Trade Name Imani PRN Reason Stop Dose Admin Acetaminophen 1,000 mg in 100 mls @ 400 mls/hr 08/24/25 13:56 08/24/25 19:16 Ofirmev IV 08/24/25 14:10 Infused ONCE ONE Infusion Morphine Sulfate 4 mg 08/24/25 13:56 08/24/25 15:25 Morphine Sulfate 10 Mg/Ml Cartridge IVPUSH 08/24/25 13:57 4 mg ONCE ONE Administration Protocol Medical Decision Making Medical Decision Making MDM Narrative: This is a 65-year-old female, COPD, PE on Eliquis, ROB not on CPAP but 1L PRN [place] O2, HLD, obesity, arthritis, UTI, encephalopathy, polypharmacy, GERD, gastroparesis, HLD, who presents to the ER with a complaint of left-sided flank pain, foul-smelling urine, urgency and dysuria. No abnormal vaginal discharge or bleeding. On arrival, patient is slightly hypotensive at 108/51, all other vital signs within normal limits. She is speaking full sentences under no acute distress. Abdomen is soft, nontender, nondistended. She does have left-sided CVA tenderness. Differential diagnoses include pyelonephritis, UTI, obstructive uropathy. Obtained labs, UA, CT abdomen and pelvis, will medicate with IV Tylenol and morphine. She is anticoagulated on Eliquis. 4:58 PM 08/24/2025 (Evangelina Darby PA-C): Labs returned, she has no leukocytosis, she has a normocytic anemia with an H&H of 11.3/36.6. Chemistry revealing no evidence of BRAULIO, electrolytes are otherwise within normal limits. Still awaiting urine sample. EKG does show inverted T-wave in V2, I reviewed this with my attending physician, will repeat troponin however presentation is very unlikely to be ACS. Will continue to closely monitor. 5:42 PM 08/24/2025 (Evangelina Darby PA-C): UA returns, revealing trace leuk esterases, otherwise negative. Still awaiting repeat troponin Repeat troponin negative, discussed overall workup with patient. reporting that patient feels as though this is exactly like her UTIs and is requesting abx. I discussed with patient that her urine only has a trace leuk esterases however patient reports that she would like to be started on antibiotics. She is also reporting pain, given this, will give only several doses of morphine to be taken for severe pain only. Discussed with patient that this is not the best option for her, as this increases risk of fall and dependency. She understands the risks versus benefits. She will follow-up with her PCP. Patient given return precautions. Patient stable for discharge. Differential Diagnosis Differential Diagnoses: The differential diagnosis associated with the presentation includes See above Lab Data [facility] Lab Attestation statement: I reviewed the patient's lab results. See [facility] 08/24/25 15:07 08/24/25 15:07 Labs: Lab Results 08/24/25 08/24/25 08/24/25 Range/Units 15:07 16:52 17:15 WBC 6.7 (4.8-10.8) X10*3/uL RBC 3.99 L (4.20-5.50) X10*6/uL Hgb 11.3 L (12.0-16.0) g/dl Hct 36.6 L (37.0-47.0) % MCV 91.7 (80.0-98.0) fL MCH 28.3 (27.0-33.0) pg MCHC 30.9 L (31.0-35.0) g/dl RDW 14.8 (11.0-16.0) % Plt Count 312 (160-400) X10*3/uL MPV 9.5 (9.4-12.3) fL Immature Gran % (Auto) 0.7 H (0.0-0.4) % Neut % (Auto) 73.8 H (45-73) % Lymph % (Auto) 18.7 L (20-40) % [place] % (Auto) 6.7 (2-11) % Eos % (Auto) 0.0 (0-4) % Baso % (Auto) 0.1 (0-2) % Lymph # (Auto) 1.3 (1.2-4.9) X10*3/uL [place] # (Auto) 0.5 (0.1-1.2) X10*3/uL Eos # (Auto) 0.0 (0.0-0.4) X10*3/uL Baso # (Auto) 0.0 (0.0-0.2) X10*3/uL Abs Immat Gran (auto) 0.05 H (0.00-0.03) X10*3/uL Absolute Neuts (auto) 5.0 (2.0-8.3) x10*3/uL Absolute Nucleated RBC 0.000 (0.0-0.012) X10*3/uL Nucleated RBC % (auto) 0.0 (0.0-0.2) /100WBC Sodium 145 (135-145) mmol/L Potassium 3.8 (3.3-5.1) mmol/L Chloride 109 H (96-108) mmol/L Carbon Dioxide 28 (22-29) mmol/L Anion Gap 12 (12-20) BUN 14 (9-16) mg/dL Creatinine 0.91 (0.5-1.4) mg/dL Estim Creat Clear Calc 71.8 Estimated GFR > 60 Random Glucose 83 (60-115) mg/dL Lactic Acid 0.6 (0.5-2.0) mmol/L Calcium 8.9 (8.4-10.2) mg/dL Magnesium 2.0 (1.6-2.6) mg/dL Total Bilirubin 0.3 (0.0-1.0) mg/dL Direct Bilirubin 0.1 (0.0-0.5) mg/dL AST 24 (5-31) U/L ALT 9 (0-31) U/L Alkaline Phosphatase 102 (39-117) U/L Troponin I High Sens < 2.7 < 2.7 (<3.5-17.0) ng/L Total Protein 6.7 (6.5-8.0) g/dL Albumin 3.7 (3.5-5.0) g/dL Lipase 9 (8-78) U/L Urine Color Yellow Urine Appearance Clear Urine pH 7.0 (5.0-9.0) Ur Specific [place] 1.010 (1.005-1.025) Urine Protein Negative (Neg-Trace) mg/dL Urine Glucose (UA) Negative (Negative) mg/dL Urine Ketones Negative (Negative) mg/dL Urine Blood Negative (Negative) Urine Nitrite Negative (Negative) Ur Leukocyte Esterase Trace H (Negative) Urine RBC 0-2 (0-2) /HPF Urine WBC 0-5 (0-5) /HPF Ur Squamous Epith Cells 0-2 (0-2) /HPF Urine Bacteria None Seen (None Seen) Hyaline Casts 0-2 (0-2) /LPF Independent Interpretation I performed an independent interpretation of an: EKG Interpretation: EKG NSR with a ventricular rate of 90bpm, ID interval 156, WT/WC 368/450, t wave inversion seen in V2, otherwise similar appearing ekg from previous. Radiology Impression Discussion of test interpretation with radiology: I have reviewed the radiologist's reading. Radiologist Impression: Findings: Mild atelectasis at the lung bases. The gallbladder and solid organs are within normal limits. No renal stones. No bowel obstruction, pneumoperitoneum, or pneumatosis. Moderate stool. Hysterectomy. Ovaries not identified. Normal appendix. Mild urinary bladder distention. No inflammatory change or wall thickening. Moderate lumbar degenerative spondylosis. No acute fracture. IMPRESSION: 1. Moderate stool without bowel obstruction. 2. No urolithiasis or hydronephrosis. This document has been electronically signed by: Mitchell Lo MD on 08/24/2025 15:44:13 Dictated By: Mitchell Lo MD Discharge Plan Discharge Clinical Impression: Flank pain, Dysuria Patient Disposition: Home, Self-Care Instructions: Dysuria (ED), Flank Pain (ED) Additional Instructions: You were seen in the emergency department due to left flank pain. Your urine does not appear to be infectious, however you do have small amount of white blood cells which can be indicative of an infection. Take prescribed antibiotic as directed. Drink plenty of fluids get plenty of rest. Tylenol can be beneficial for agpj-ae-[id number] pain. Morphine to be taken as needed for severe pain only. Please be advised that this can cause drowsiness, do not drink alcohol or drive while taking this medication. We can only prescribe a short amount of this medication. If any new or worsening symptoms occur including but not limited to worsening pain, high fevers, vomiting, chest pain, shortness of breath, please seek emergent care. Prescriptions: New morphine 15 mg tablet 15 mg PO Q6H PRN (Reason: severe pain (scale score 7-10)) Qty: 5 0RF Rx Instructions: Partial Fill upon patient request. cefuroxime axetil 250 mg tablet 250 mg PO BID 7 Days Qty: 14 0RF acetaminophen [Tylenol Extra Strength] 500 mg tablet 500 mg PO Q6H PRN (Reason: pain) Qty: 30 0RF No Action (DME) shower seat See Rx Instructions .Route .MEDSUPPLY Qty: 1 0RF Rx Instructions: As directed (DME) miscellaneous medical supply [facility] See Rx Instructions .ROUTE .MEDSUPPLY Qty: 1 0RF Rx Instructions: OVERBED TABLE ([facility] [place] electric wheelchair See Rx Instructions .Route .MEDSUPPLY Qty: 1 0RF Rx Instructions: As directed (DME) wheeled table with drawers See Rx Instructions .Route .MEDSUPPLY Qty: 1 0RF Rx Instructions: As directed (DME) adult diapers pull-ups 2Xlarge See Rx Instructions .Route .MEDSUPPLY Qty: 240 6RF Rx Instructions: As directed (DME) nebulizers [AeroEclipse II Nebulizer] [facility] [place] See Rx Instructions .Route Qty: 1 0RF Rx Instructions: As directed cromolyn 4 % drops 1 drp ophthalmic (eye) 6XD 30 Days Qty: 10 1RF cetirizine 10 mg tablet 10 mg PO DAILY PRN (Reason: allergy symptoms) 90 Days Qty: 90 1RF (DME) flushable wipes See Rx Instructions .Route .MEDSUPPLY Qty: 240 6RF Rx Instructions: As directed (DME) disposable gloves [facility] [place] See Rx Instructions .Route Qty: 200 6RF Rx Instructions: As directed (DME) underpads [Bed Underpads] Pad See Rx Instructions .Route Qty: 100 6RF Rx Instructions: As directed (DME) recliner with power buttons See Rx Instructions .Route .MEDSUPPLY Qty: 1 0RF Rx Instructions: As directed (DME) POWER LIFT RECLINER See Rx Instructions .Route .MEDSUPPLY Qty: 1 0RF Rx Instructions: As directed rosuvastatin 10 mg tablet 10 mg PO DAILY Qty: 90 3RF (DME) bedside commode Kit See Rx Instructions .Route Qty: 1 0RF Rx Instructions: As directed (DME) Wheel chair Kit See Rx Instructions .Route Qty: 1 0RF Rx Instructions: As directed (DME) wheelchair See Rx Instructions .Route .MEDSUPPLY Qty: 1 0RF Rx Instructions: As directed esomeprazole magnesium 40 mg capsule,delayed release(DR/EC) 40 mg PO DAILY Qty: 90 2RF albuterol sulfate 2.5 mg /3 mL (0.083 %) solution for nebulization 2.5 mg inhalation Q6H PRN (Reason: for wheezing) Qty: 150 11RF Trelegy Ellipta 200-62.5-25 mcg blister with device 1 inh inhalation DAILY 30 Days Qty: 60 12RF lactulose 10 gram/15 mL solution 10 g PO BEDTIME PRN (Reason: constipation) 30 Days Qty: 237 2RF chlorhexidine gluconate 0.12 % mouthwash 15 ml buccal DAILY 30 Days Qty: 450 0RF amitriptyline 100 mg tablet 100 mg PO BEDTIME 90 Days Qty: 90 1RF zolpidem 10 mg tablet 10 mg PO BEDTIME PRN (Reason: insomnia) 30 Days Qty: 30 0RF (DME) rollatoe walker with a seat See Rx Instructions .Route .MEDSUPPLY Qty: 1 0RF Rx Instructions: As directed cholecalciferol (vitamin D3) [Vitamin D3] 25 mcg (1,000 unit) capsule 25 mcg PO DAILY Qty: 30 1RF clonazepam 1 mg tablet 1 mg PO DAILY docusate sodium [Colace] 100 mg capsule 100 mg PO BID Qty: 20 0RF cyclobenzaprine 5 mg tablet 5 mg PO TID PRN (Reason: muscle spasm) 3 Days Qty: 9 0RF Eliquis DVT-PE Treat 30D Start 5 mg (74 tabs) tablets,dose pack 5 mg PO BID Qty: 74 0RF (DME) oxygen-air delivery systems Device See Rx Instructions .ROUTE .MEDSUPPLY Qty: 1 Rx Instructions: As directed carboxymethylcellulose sodium 0.5 % dropperette 1 drp ophthalmic (eye) BID PRN (Reason: dry eye(s)) 30 Days Qty: 30 2RF AsperFlex (lidocaine HCl) 4 % ointment See Rx Instructions topical .COMPLEX Qty: 100 0RF Rx Instructions: use 1-2 inch ointment and apply up to 3 times daily on L shoulder topically; topiramate 100 mg tablet 100 mg PO BID (DME) blood pressure kit-extra large Kit See Rx Instructions .Route Qty: 1 0RF Rx Instructions: As directed bupropion HCl 300 mg tablet extended release 24 hr 300 mg PO DAILY gabapentin 400 mg capsule 400 mg PO TID Eliquis 5 mg tablet 5 mg PO BID 30 Days Qty: 60 11RF acetaminophen 325 mg tablet 325 mg PO QID PRN (Reason: Pain) 30 Days Qty: 120 2RF albuterol sulfate 90 mcg/actuation HFA aerosol inhaler 2 puff inhalation Q4H PRN (Reason: Wheezing) Qty: 8.5 11RF diclofenac sodium 1 % gel 4 g topical QID Qty: 100 4RF Rx Instructions: apply to knees and hands 4 times a day lidocaine [Lidoderm] 5 % adhesive patch,medicated 1 patch topical DAILY Qty: 30 0RF Rx Instructions: leave on most painful area for up to 12 hrs cromolyn 4 % drops 1 drp ophthalmic (eye) QID 30 Days Qty: 10 0RF famotidine [Pepcid] 40 mg tablet 40 mg PO BEDTIME Qty: 30 11RF levothyroxine 50 mcg tablet 50 mcg PO DAILY@0630 Qty: 90 0RF lidocaine 5 % adhesive patch,medicated 1 patch topical DAILY Qty: 15 0RF Rx Instructions: leave on most painful area for up to 12 hrs Interventions: ED Discharge Assessment Last Done: 08/24/25 19:10 Discharge Date/Time: 08/24/25 22:18 Print Language: Romanian
--- OUTSIDE RECORDS SUMMARY | 2025-08-24 13:53 | XMS_ITS | Encounter Summary ---
Author Organization [facility] Address [address] [facility] [address] [place] [address] Phone Care Team Providers Care Hardware Developer Name Role Phone Pcp, Unknown Primary Care Provider Unavailabl e Encounter Details Date Type Department Care Team (Late st Contact Info) Description 06/20/2020 Transcribe Orders [facility] Specimen Processing [address] [place] [address] Anton Stoddard MD [address] [facility] [address], [address] [place] [address] [email or web address] Encounter for screening laboratory testing for COVID-19 [...] AM EDT) Specimen Source/Descriptio n NASOPHARYNGEAL SWAB [facility] Comment NASOPHARYNGEAL SWAB [facility] SARS-CoV 2 (COVID-19) PCR Not Detected Not Detected [facility] Comment: Negative results do not preclude [...] ORDERABLE S Final Result Performing Organization Address City/State/[facility] Co de Phone Number [address] [address] * COVID-19 PCR Order (06/20/2020 8:00 AM EDT) Specimen Source NASOPHARYNGEAL SWAB (DELIVERER FOOD) [facility] COVID Testing Status Sent to [facility] Other 06/20/2020 8:00 AM EDT 06/20/2020 11:46 AM EDT Anton Stoddard MD BODY FLUIDS AND STOOLS ORDERABLE S Final Result Performing Organization Address City/[facility] Co de Phone Number [address] [address] documented in this encounter Visit Diagnoses Diagnosis Encounter for screening laboratory testing for COVID-19 virus- Primary documented in this encounter Additional Health Concerns Infection Onset Date Last Indicated Resolved Time CoV-Exposed Comment:Recent close contact 06/18/2020 06/18/2020 07/02/2020 1:24 AM EDT CoV-Exposed Comment:Recent close contact 07/10/2020 07/10/2020 07/24/2020 1:23 AM EDT documented as of this encounter Care Teams Hardware Developer Relationship Specialty Start Date End Date Pcp, Unknown PCP - General 05/20/20 documented as of this encounter Additional Source Comments The information contained in this document represents components of the legal health record. It is not the complete legal health record.[facility]
--- OUTSIDE RECORDS SUMMARY | 2025-08-24 13:53 | XMS_ITS | Continuity of Care Document ---
Author Organization [facility] Address [address] [place] [address] Care Team Providers Care Benzene Still Utility Operator Name Role Phone DICKSON SAEZ Primary Care Provider HIM JOCELYN OTHER Assessment Encounter Date Assessment Date Assessment LastModified by Organization Details LastModified Time 08/21/2025 08/21/2025 Impression: 65yo/f referred by ASSOCIATE FINANCIAL REPRESENTATIVE for urinary symptoms and back pain. Patient with multiple chronic medical conditions as above, states for the past 2-3 days has been having worsening back pain symptoms, initially seemed to localize to one side, today describing bilateral back/flank pain. ASSOCIATE FINANCIAL REPRESENTATIVE has noticed increased odor to urine, but patient denying any associated urinary symptoms at this time. No dysuria, frequency, hematuria, change in appearance. For medic on scene patient is awake, alert, in no distress. Vitals show low grade tachycardia 102, otherwise re-assuring. No associated chest pain, dyspnea, abdominal pain. No trauma by history. Denies associated neurologic symptoms of numbness/weaknes s/paresthesias. Uses a walker at home which she has been using. Otherwise eating and drinking ok. Patient does not typically have this low back pain/flank pain. Plan: Patient underwent urine dip with medic which has few leukocytes but otherwise unrevealing. Patient has tenderness across the low back/flanks. It is bilateral, although patient feels worse on one side. It is unclear to me the cause of her symptoms at this time. This picture does not clearly demonstrate a UTI or pyelonephritis. Patient and ASSOCIATE FINANCIAL REPRESENTATIVE feel these symptoms are new in the last 2-3 days. I advised that for full evaluation I would recommend patient be transferred to [facility] ED for further evaluation and treatment including consideration of diagnostic imaging. Patient and ASSOCIATE FINANCIAL REPRESENTATIVE are declining at this time, stating they would prefer to discuss with PCP first. Advised to seek care immediately with any acute worsening or change in symptoms which they understand. [email or web address] Not available 08/21/2025 13:25:07 Plan of Treatment Reminders Order Date Submit Date Provider Last Modified By Organization Details Last Modified Time Details Appointments None recorded. Lab culture, urine 2024 [facility] (Centralized Electronic Ordering - All Locations), Patient Can Go To The Location Of Their Choice, [id number] 20:06:15 urinalysis , dipstick 2024 [facility], [address] [place] [address], [id number] 14:08:49 Referral None recorded. Procedures None recorded. Surgeries None recorded. Imaging None recorded. Medication Orders None recorded. Patient TargetsNo targets recorded. Patient InstructionsNo instructions recorded. Reason for Referral None Reported. Results Created Date Observation Date Name Description Value Unit Range Abnormal Flag Note LastModifiedBy Organization Detail LastModifiedTime 08/21/2008/21/2025 ONE SPECI MEN IDENT IFIER one specimen identifier Commen t The speci men recei jillian inclu ded only one patie nt ident ifier on the prima ry colle ction conta iner. Our labor atory accre ditin g agenc y state s All prima ry speci men conta iners must be label ed with 2 ident ifier s at the time of colle ction . Not Available [facility] ([facility]) [address] [facility], [place], [address], 08/22/2025 20:06:16 Result Notes None recorded. Medical Equipment None Reported. Allergies No known drug allergies Medications Name Sig Start Date Stop Date [...] Available No t Available Vitals Date Recorded Oxygen saturation Oxygen saturation in Arterial blood by Pulse oximetry Heart rate Body weight Body height Body temperature Respiratory rate Systolic And Diastolic Provider Name and Address Organization Details Last Updated DateTime 99 % 99 % 102 /min 957208. 224 g 154.94 cm 98.1 [degF] 16 /min 134/79 mm[Hg] Not Available [facility] - production 12:52:55 Social History None recorded. Functional Status None recorded. Mental Status None recorded. Family History Nothing Reported. Medical History No medical history recorded. Gynecological HistoryNo gynecological history recorded. Obstetrics History GPAL:G 0 P 0 0 0 0 Past Encounters Encounter ID Performer Location Encounter Start Date Encounter Closed Date Diagnosis/Indication Diagnosis SNOMED-CT Code Diagnosis ICD10 Code Diagnosis IMO Codes Diagnosis Note [id number] John Ferrer MD [facility] ED Medical [address] [phone] 08/21/2025 12:52:47 08/21/2025 14:31:53 Acute low back pain 522735710 M54.50 [id number] Health Concerns Section Related Observation LastModified by Organization Detai ls LastModified Time None Recorded Concern Status LastModified by Organization Details LastModified Time None Recorded Payers Encounter Date Sequence Insurance Name Policy Number Policy Burnham Covered Member ID Burnham Member ID Guarantor Name 08/21/2025 1 [facility] - DOS ON OR AFTER 2023 - DUAL ELIGIBLE - ALF OPTIONS AND ONE CARE (MEDICARE REPLACEMENT/ADV ANTAGE - HMO) Gracy Mead [id number] Gracy Mead Notes Date Note Type Note Provider Name and Address Organization Details Recorded Time 08/21/2025 text/html ROS as noted in the HPI CRC Nurse Triage Notes (Nancy Wadsworth): Reason For Request: Possible UTI, urine problems. Patient Reports: Frequent and increased urination with flank pain Denies: Unable to void greater than 5 hours Erection that will not go away after 2 hours Fall or trauma that results in urinary incontinence in the setting of pain Fall or injury that results in incontinence in the absence of pain Lower back pain either unilateral or bilateral, unable to void, painful urination -hematuria Painful urination Painful urination with or without fever Inability to fully empty bladder Chief Complaints: Urinary Symptoms PMH: Coronary Artery Disease, COPD/Asthma, Severe Persistent Mental Illness (SPMI) PMH Reviewed at 08/21/2025 Allergies Reviewed at 08/21/2025: Comments: 65 y.o female complains of Urinary Symptoms ASSOCIATE FINANCIAL REPRESENTATIVE reporting symptoms. Foul smelling urine and new lower back pain since yesterday or the day before. Hot and cold on and off - denies fever. New lower back pain - -07/09. PRN tylenol w/ minimal effect. B/l flank pain - L side flank pain worse than R. Reports increased urgency and frequency. Denies dysuria, hematuria. Reports increased in asthma symptoms over the past couple of days, increased inhaler use. Speaking in full/complete sentences without distress. On anticoagulation -Eliquis BID . Denies kidney issues. Denies recent falls/injury. I provided information on the mobile health provider response time and advised the patient and/or caregiver to monitor reported signs and symptoms. I discussed the warning signs of when to seek emergency care. Civil Engineering Assistant Organization Information for Kenneth Gonsales Business Legal Name: [employer]. Address: [address] [place] [address], Broadcast Systems Engineer: Carlos Woody MD CLIA No.: [id number] Civil Engineering Assistant POC Test Results from Kenneth Gonsales Urine Dipstick (12:42:41) Urine leukocytes: 70+MARCOS Urine nitrites: -NIT Urine urobilinogen: 0.2URO Urine protein: 0.3PRO Urine pH: 6.0pH Urine blood: -BLO Urine specific gravity: 1.010SG Urine ketones: 15KET Urine bilirubin: -JOSI Urine glucose: -GLU Attachments uploaded as part of this test result can be found under Documents section. ..................... ..................... ..................... ..................... ..................... ..................... ............... Civil Engineering Assistant Note From Kenneth Gonsales: [facility] makes pt contact a 65 yo F CC of uti like symptoms for two days. [facility] obtains vital signs. PT provides a clean catch urine sample. [facility] performs urine dipstick test and collects specimen for the lab. PT ASSOCIATE FINANCIAL REPRESENTATIVE explains pt for the past two days has had worsening lower back pain thats worse on the left. PT presents with tenderness and pain upon palpation. PT has no fever, denies pain on urination or any abdominal pain. PT explains increased urination and frequency. PT is not a diabetic. tylenol or anything otc is taken for the pain. PT still eating an drinking normally. PT explains these symptoms are similar to when she had a uti a year ago and was treated in hospital with IV antibiotics. No known allergies. [facility] contacts [facility] and explains above mentioned. [facility] not convinced it is a UTI. [facility] advises pt be seen in the hospital for a full work up and imaging of the kidneys or reach out to her PCP regarding follow up. PT would rather reach out to PCP. [facility] explains red flags such as worsening pain, unable to hold/void urine, new onset fever, sob, chest pain, n/v. That pt should then seek a higher level of care such as 911. PT understands. Culture to be dropped off at [facility]. [facility] clear. [facility] Lab Orders: culture, urine: Performed urinalysis, dipstick: Performed ..................... ..................... ..................... ..................... ..................... ..................... ............... [facility] Consulted: John Ferrer ..................... ..................... ..................... ..................... ..................... ..................... ............... Disposition: Fulfilled John Ferrer MD [address] [facility],[address] [facility], [place], [address], [employer] 08/21/2025 13:49:25 OBGyn Episode No OBEpisode recorded.
--- OUTSIDE RECORDS SUMMARY | 2025-08-24 13:53 | XMS_ITS | Encounter Summary ---
Author Organization [facility] Address [address] [facility] [address] [place] [address] Encounters * CPT with Medical [facility] at [facility] on 2025-08-24 { reasonForRequest : Urinary symptoms , patientReports : Painful urination; Frequent and increased urination with flank pain , denies :[ Unableto void greater than 5 hours , Erection that will not go away after 2 hours , Fall or trauma that results in urinary incontinence in the setting of pain , Fall or injurythat results in incontinence in the absence of pain , Lower back pain either unilateral or bilateral, unable to void, painful urination -hematuria ], chiefComplaints : Urinary Symptoms , pmh : Coronary Artery Disease, COPD/Asthma, Severe Persistent Mental Illness (SPMI) , allergies : No Known Drug Allergies , otherAlle rgies : , painAssessment : , visitOutcome : &quo t;, additionalComments : Called member to review lab results of urine culture. Member still complaining of painful urination and flank pain. Pain has gotten worse over the last 3 days.Member called PCP and left a message but did not hear back from them. CRC RN suggested a revisit torecheck a UA and UC since symptoms are getting worse and member was not started on abx at the last visit. SUPERINTENDENT PRODUCTION will be with member today. Member reported that she was running a fever yesterday but does not know how high it was. Feeling chills. \n\n65 y.o female complains of Urinary Symptoms\nI provided information on the mobile health provider response time and advised the patient and/or caregiverto monitor reported signs and symptoms. I discussed the warning signs of when to seek emergency care. Simran Hutchison RN } [email or web address] responds to the listed address for a 65 yof w/ a c/c of UTI. Upon arrival on scene, pt is found seated in her recliner in the living area of her small and well-kept apartment. She is reclined w/ her feet up, alert, and tracks MIH on approach. Her face is flushed, but she is otherwise generally well-appearing. No facial droop or one sided weakness are observed, no stridor sonorous respirations, or increased WOB are noted, and she is not bleeding anywhere. SUPERINTENDENT PRODUCTION is on scene to help w/ translation, as pt is Salvadorean speaking only. Pt received a call from [facility] this morning informing her she was positive for UTI. Pt was seen by [facility] on of last week and UA/UC was obtained, but no abx were prescribed at that time. Since then, while awaiting results of the culture, pt is endorsing increasing and worsening s/s including on and off fevers, chills, increasing lumbar and flank pain bilaterally, but worse on L side, and frequency w/ pain. No malodor is reported. She has had multiple UTIs in the past and has had to be administered IV abx in the past.Lab results did not include sensitivity or type of bacteria. Pt [facility] retest of UA and abx prescription. Pt endorses 10/ flank pain and lumbar pain. She is rocking herself back and forth in her chair due to discomfort. She takes Aleve for the pain, but has not had any today. She is unable to take her own temperature, but she says last night she felt very hot w/ chills and was sweating. No CP, sob, n/v/d, or abd pain are reported. Ddx: UTI, kidney infection, kidney stone [facility] obtains vital signs and pt is assessed. Pt is normotensive, afebrile, and not hypoxic. Head is atraumatic and normocephalic. Sclera are clear and extraocular movements are intact. Neck is supple and trachea is midline. CVA tenderness and flank pain are present, mostly on L side. Chest rises andfalls w/ respirations and lung sounds are clear to auscultation. Heart beat is strong and regular w/ no clicks or rubs noted. Abdomen is soft and nontender, CMS is intact and no peripheral edema is noted. Pt voided her bladder just prior to [facility] arrival, but caught the urine in a hat and left it forMIH to test. [facility] performs UA and results are not convincing of UTI. 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 Pt agrees and chooses to be transported to [facility]. Pt is transported to [facility] by [facility]. [facility] is clear. Report completed by JAYY Souza [id number]. ORAL_MEDICATION, EKG, POC_BLOODWORK, GLUCOSE Written by Medical [facility] on 2025-08-24
--- OUTSIDE RECORDS SUMMARY | 2025-08-24 13:53 | XMS_ITS | Continuity of Care Document ---
Author Name [facility], Medical Address [address] [place] [address] Organization Unknown Address [address] [place] [address] Medications No known medications Problems No known problems
--- OUTSIDE RECORDS SUMMARY | 2025-08-24 13:53 | XMS_ITS | Continuity of Care Document ---
Author Name [facility], Medical Address [address] [place] [address] Organization Unknown Address [address] [place] [address] Medications No known medications Problems No known problems
--- OUTSIDE RECORDS SUMMARY | 2025-08-24 13:53 | XMS_ITS | Encounter Summary ---
Author Organization [facility] Address [address] [facility] [address] [place] [address] Encounters * CPT with Medical [facility] at [facility] on 2025-08-21 { reasonForRequest : Possible UTI, urine problems. , patientReports :& quot;Frequent and increased urination with flank pain , denies :[ Unable to void greater than 5 hours , Erection that will not go away after 2 hours , Fall or t rauma that results in urinary incontinence in the setting of pain , Fall or injury that results in incontinence in the absence of pain , Lower back pain either unilateral or bilateral, unable to void, painful urination - hematuria , Painful urination , Painfulurination with or without fever , Inability to fully empty bladder ], chiefComplaints : Urinary Symptoms , pmh : Coronary Artery Disease, COPD/Asthma, Severe Persistent Mental Illness (SPMI) , allergies : No Known Drug Allergies&q uot;, otherAllergies : , painAssessment : , visitOutc ome : , additionalComments : 65 y.o female complains of Urinary Symptoms\n\nPCA reporting symptoms. Foul smelling urine and new lower back pain since yesterday or the day before. Hot and cold on and off - denies fever. New lower back pain - 8-9/10. PRN tylenol w/ minimal effect. B/l flank pain - L side flank pain worse than R. Reports increased urgency and frequency. Denies dysuria, hematuria. Reports increased in asthma symptoms over the past couple of days, increased inhaler use. Speaking in full/complete sentences without distress. On anticoagulation -EliquisBID . Denies kidney issues. Denies recent falls/injury. \n\nI provided information on the mobile health provider response time and advised the patient and/or caregiver to monitor reported signs and symptoms. I discussed the warning signs of when to seek emergency care. } [facility] makes pt contact a 65 yo F CC of uti like symptoms for two days. [facility] obtains vital signs. PT provides a clean catch urine sample. [facility] performs urine dipstick test and collects specimen for the lab. PT CRA OFFICER explains pt for the past two days [...] hospital with IV antibiotics. No known allergies. [facility] contacts [facility] and explains above mentioned. [facility] not convinced it is a UTI. [facility] advises pt be seen in the hospital for a full work up and imaging of the kidneys or reach out to her PCP regarding follow up. PT would rather reach out to PCP. [facility] explains red flags such as worsening pain, unable to hold/void urine, new onset fever, sob, chest pain, n/v. That pt should then seek a higher level of care such as 911. PT understands. Culture to be dropped off at [facility]. [facility] clear. ORAL_MEDICATION, EKG, POC_BLOODWORK, GLUCOSE Written by Medical [facility] on 2025-08-21
--- OUTSIDE RECORDS SUMMARY | 2025-08-24 13:53 | XMS_ITS | Clinical Summary ---
Author Organization [facility] Address [address] [address] Phone Care Team Providers Care Patent Engineer Name Role Phone Pcp, Unknown Primary Care [...] on file Insurance MEDICARE REPLACEMENT [place] [id number] MEDICARE REPLACEMENT [place] [id number] MEDICARE REPLACEMENT MEDICARE REPLACEMENT MEDICARE REPLACEMENT MEDICARE REPLACEMENT MEDICARE REPLACEMENT MEDIC[place] [address] [place] [address] [employer] MEDICARE REPLACEMENT [place] [id number] Care Teams Patent Engineer Relationship Specialty Start Date End Date Pcp, Unknown PCP - General 05/20/20 Additional Source Comments The information contained in this document represents components of the legal health record. It is not the complete legal health record.[facility]
--- OUTSIDE RECORDS SUMMARY | 2025-08-24 13:54 | XMS_ITS | Data Portability ---
Author Organization [employer] [facility], [facility] Address [address] [place] [address] Care Team Providers Care Integrated Circuit Ic Layout Designer Name Role Phone DICKSON SAEZ Primary Care [...] ASA provided IM benadryl pt ot seek powerhouse operator and PCP f/up return ot primary team notify service if worsening rash or new SOB [email or web address] Not available 07/18/2022 22:12:53 08/26/2024 08/26/2024 As noted, we sravan lieberman called to see this patient regarding concerns of dysuriaEvaluation in the field was performed by my visual lead colleague, as noted above, I provided real-time [...] worsening serious symptoms, particularly flank pian, fever. [email or web address] Not available 08/26/2024 20:23:21 08/21/2025 08/21/2025 Impression: 65yo/f referred by ORNAMENTER for urinary symptoms and back pain. Patient with multiple chronic medical conditions as above, states for the past 2-3 days has been having worsening back pain symptoms, initially seemed to localize to one side, today describing bilateral back/flank pain. ORNAMENTER has noticed increased odor to urine, but patient denying any associated urinary symptoms at this time. No dysuria, frequency, hematuria, change in appearance. For medic on scene patient is awake, alert, in no distress. Vitals show low grade tachycardia 102, otherwise re-assuring. No associated chest pain, dyspnea, abdominal pain. No trauma by history. Denies associated neurologic symptoms of numbness/weakness/p aresthesias. Uses a walker at home which she [...] demonstrate a UTI or pyelonephritis. Patient and ORNAMENTER feel these symptoms are new in the last 2-3 days. I advised that for full evaluation I would recommend patient be transferred to [facility] ED for further evaluation and treatment including consideration of diagnostic imaging. Patient and ORNAMENTER are declining at this time, stating they would prefer to discuss with PCP first. Advised to seek care immediately with any acute worsening or change in symptoms which they understand. [email or web address] Not available 08/21/2025 13:25:07 Plan of Treatment Reminders Order Date Submit Date Provider Last Modified By Organization Details Last Modified Time Details Appointments None recorded. Lab culture, urine 2024 025 MAGDY [facility] (Centralized Electronic Ordering - All Locations), Patient Can Go To The Location Of Their Choice, [id number] 5 20:06:15 [facility], dipstick [facility] [address] [place] [address], [id number] 5 14:08:49 culture, urine 2023 024 MAGDY [facility] (Centralized Electronic Ordering - All Locations), Patient Can Go To The Location Of Their Choice, [id number] 4 10:06:26 urinalysis, dipstick 2023 024 [email or web address] [facility], [address] [place] [address], [id number] 4 20:23:24 urinalysis, dipstick 2021 022 [email or web address] [facility], [address] [place] [address], [id number] 2 11:28:27 unlisted lab - urinalysis w/reflex culture 2021 022 RAY [facility] (Centralized Electronic Ordering - All Locations), Patient Can Go To The Location Of Their Choice, [id number] 2 19:05:47 Referral None recorded. Procedures None recorded. Surgeries None recorded. Imaging None recorded. Medication Orders cefpodoxime 200 mg tablet 2023 024 [facility] #[id number], [address] [place], [address], 4 18:25:11 prednisone 50 mg tablet 2021 022 [facility][id number], [address] [place], [address], 2 11:38:43 prednisone 20 mg tablet 2021 022 [email or web address] Not available 11:55:52 Macrobid 100 mg capsule 2021 022 [facility][id number], [address] [place], [address], 11:32:24 Pyridium 100 mg tablet 2021 022 [facility] #4843, [address], [place], [address], 11:32:24 Patient TargetsNo targets recorded. Patient InstructionsNo [...] Go To The Location Of Their Choice, [id number] 02/19/2022 19:05:46 02/20/2002/19/2022 UA W/REF MARIE CULTU RE urine bilirubin NEGATI VE (neg) Not Available [facility] (Centralized Electronic Ordering - All Locations) Patient Can Go To The Location Of Their Choice, [id number] 02/19/2022 19:05:46 02/20/2002/19/2022 UA W/REF MARIE CULTU RE urine hemoglobin NEGATI VE (neg) Not Available [facility] (Centralized Electronic Ordering - All Locations) Patient Can Go To The Location Of Their Choice, [id number] 02/19/2022 19:05:46 02/20/2002/19/2022 UA W/REF MARIE CULTU RE urine nitrite NEGATI VE (neg) Not Available [facility] (Centralized Electronic Ordering - All Locations) Patient Can Go To The Location Of Their Choice, [id number] 02/19/2022 19:05:46 02/20/2002/19/2022 UA W/REF MARIE CULTU RE urine leukocyte 2+ (neg) abnormal Not Available [facility] ([facility] Ordering - All Locations) Patient Can Go To The Location Of Their Choice, [id number] 02/19/2022 19:05:46 02/20/2002/19/2022 UA W/REF MARIE CULTU RE urobilinogen NORMAL mg/dL (norm) Not Available [facility] ([facility] Ordering - All Locations) Patient Can Go To The Location Of Their Choice, [id number] 02/19/2022 19:05:46 02/20/2002/19/2022 UA W/REF MARIE CULTU RE urine WBCs 17 /hpf (0-5) high Not Available [facility] (Centralized Electronic Ordering - All Locations) Patient Can Go To The Location Of Their Choice, [id number] 02/19/2022 19:05:46 02/20/2002/19/2022 UA W/REF MARIE CULTU RE urine RBCs 1 /hpf (0-3) Not Available [facility] (Centralized Electronic Ordering - All Locations) Patient Can Go To The Location Of Their Choice, [facility] 02/19/2022 19:05:46 02/20/2002/19/2022 UA W/REF MARIE CULTU [...] RE special requests NONE Reflex ed from [id number] Not Available [facility] (Centralized Electronic Ordering - All Locations) Patient Can Go To The Location Of Their Choice, 02/21/2022 09:59:20 02/20/2002/20/2022 URINE CULTU RE specimen description URINE Not Available [facility] ([facility] Order[facility] - All Locations) Patient Can Go To The Location Of Their Choice, 02/21/2022 09:59:20 02/20/2002/21/2022 URINE CULTU RE culture Mixed bacter ial lizeth, indica tive of urogen ital contam inatio n. Not Available [facility] (Centralized Electronic Ordering - All Locations) Patient Can Go To The Location Of Their Choice, 02/21/2022 09:59:20 02/20/2002/21/2022 URINE CULTU RE report status FINAL 2021 Not Available [facility] (Centralized Electronic Ordering - All Locations) Patient Can Go To The Location Of Their Choice, 02/21/2022 09:59:20 02/20/2002/19/2022 urina lysis , dipst ick Leukocytes ++ Not Available [facility] - [facility] [address] [place] [address], [phone] 02/19/2022 11:27:23 02/20/20 22 02/19/2022 urina lysis , dipst ick Nitrite positi ve Not Available [facility] [address] [place] [address], [phone] 02/19/2022 11:27:23 02/20/2002/19/2022 urina lysis , dipst ick Ketone 1+ Not Available [facility] - [facility] [address] [place] [address], [phone] 02/19/2022 11:27:23 08/26/2008/29/2024 URINE CULTU RE,CO MPREH ENSIV E urine culture,comp rehensive Final report Not Available [facility] ([facility]) [address] [facility], [place], [address], 08/29/2024 10:06:37 08/26/2008/29/2024 URINE CULTU RE,CO MPREH ENSIV E result 1 COMMEN T No growt h in 36 - 48 hours . Not Available [facility] ([facility]) [address] [facility], [place], [address], 08/29/2024 10:06:37 08/21/2008/21/2025 ONE SPECI MEN IDENT IFIER one specimen identifier Commen t The speci men recei jillian inclu ded only one patie nt ident ifier on the prima ry colle ction conta iner. [facility] s All prima ry speci men conta iners must be label ed with 2 ident ifier s at the time of colle ction . Not Available [facility] ([facility]) [address] [facility], [place], [address], 08/22/2025 20:06:16 Result Notes None recorded. Medical [...] Available No t Available Vitals Date Recorded Body temperature Heart rate Respiratory rate Oxygen saturation Oxygen saturation in Arterial blood by Pulse oximetry Systolic And Diastolic Provider Name and Address Organization Details Last Updated DateTime 2 98.6 [degF] 95 /min 20 /min 97 % 97 % 120/70 mm[Hg] Eden Coronado MD [address] [facility],[address], [place], [address], [place] - [employer] 2 11:36:33 Date Recorded Respiratory rate Heart rate Oxygen saturation Oxygen saturation in Arterial blood by Pulse oximetry Body temperature Systolic And Diastolic Provider Name and Address Organization Details Last Updated DateTime 2 16 /min 89 /min 99 % 99 % 98.5 [degF] 113/76 mm[Hg] Not Available [employer] 2 12:14:07 Date Recorded Heart rate Oxygen saturation Oxygen saturation in Arterial blood by Pulse oximetry Body temperature Body weight Body height Respiratory rate Body height Oxygen saturation Oxygen saturation in Arterial blood by Pulse oximetry Respiratory rate Heart rate Provider Name and Address Organization Details Last Updated DateTime 2 90 /min 99 % 99 % 97.9 [degF] 03947.0 56 g 154.94 cm 20 /min 154.94 cm 99 % 99 % 20 /min 90 /min Not Available [employer] 2 18:28:00 Date Recorded Body temperature Body weight Systolic And Diastolic Systolic And Diastolic Provider Name and Address Organization Details Last Updated DateTime 07/18/2022 97.9 [degF] 91007.05 6 g 118/78 mm[Hg] 118/78 mm[Hg] Not Available [employer] 2 18:28:00 Date Recorded Oxygen saturation Oxygen saturation in Arterial blood by Pulse oximetry Heart rate Body weight Body height Body temperature Respiratory rate Systolic And Diastolic Provider Name and Address Organization Details Last Updated DateTime 5 99 % 99 % 102 /min 680585. 224 g 154.94 cm 98.1 [degF] 16 /min 134/79 mm[Hg] Not Available [employer] 5 12:52:55 Date Recorded Heart rate Body temperature Oxygen saturation Oxygen saturation in Arterial blood by Pulse oximetry Respiratory rate Systolic And Diastolic Provider Name and Address Organization Details Last Updated DateTime 4 91 /min 98.8 [degF] 100 % 100 % 16 /min 128/88 mm[Hg] Not Available [employer] 4 18:22:11 Social History None recorded. Functional Status None recorded. Mental Status None recorded. Family History Nothing Reported. Medical History No medical history recorded. Gynecological HistoryNo gynecological history recorded. Obstetrics History GPAL:G 0 P 0 0 0 0 Past Encounters Encounter ID Performer Location Encounter Start Date Encounter Closed Date Diagnosis/Indication Diagnosis SNOMED-CT Code Diagnosis ICD10 Code Diagnosis IMO Codes Diagnosis Note [id number] Surya Acevedo MD Main - [address] [phone] 02/18/2022 14:31:32 07/07/2022 13:35:00 Periorbital edema 33563618 H05.229 62yo woman evaluated for months of [...] changes ot therapy. [id number] Eden Coronado MD [facility] - [address] [phone] 02/19/2022 09:58:40 07/05/2022 15:20:25 Dysuria 56152546 R30.9 Pt with hx prior UTIs (though [...] assessment and plan as documented by the visual lead. I provided real time medical direction for this encounter and was immediatel y available to provide additional phone based assistance as needed. Periorbital edema 663947 00 H05.229 Symptoms persist since last [facility] visit, continuing on allergy tx. urine dip today w/o protein to suggest nephrotic syndomre, recommend PCP f/up for allergy testing/tx . Urine dip also w/ trace ketones but no hx diabetes and normal PO intake, likely contaminat ion from adjacent test strip. F/up formal urinalysis [id number] Kenneth Castellon MD [facility] - [address] [phone] 03/10/2022 11:36:32 07/06/2022 14:33:02 Pruritic rash 61182554 L28.2 [id number] Braydon Recio MD Main - [address] [phone] 07/18/2022 17:25:40 07/22/2022 13:31:39 Pruritic rash 66647022 L28.2 [id number] Gerardo Lunsford MD Main - [facility] [address] [place] [phone] 08/26/2024 18:22:09 08/26/2024 21:57:44 Acute urinary tract infection [id number] N39.0 [id number] John Ferrer MD [facility] [address] [place] [phone] 08/21/2025 12:52:47 08/21/2025 14:31:53 Acute low back pain 074729380 M54.50 [id number] Health Concerns Section Related Observation LastModified by Organization Detai ls LastModified Time None Recorded Concern Status LastModified by Organization Details LastModified Time None Recorded Advance Directives Directive None Recorded Payers Insurance Date Sequence Insurance Name Policy Number Policy Burnham Covered Member ID Burnham Member ID Guarantor Name 08/26/2024 1 [facility] - DOS PRIOR TO 2023 - DUAL ELIGIBLE (MEDICARE REPLACEMENT/ADV ANTAGE - HMO) Gracy Robertsy [id number] Gracy Mead 08/21/2025 1 [facility] - DOS ON OR AFTER 2023 - DUAL ELIGIBLE - CARE HOME OPTIONS AND ONE CARE (MEDICARE REPLACEMENT/ADV ANTAGE - HMO) Gracy Mead [id number] Gracy Mead Notes Date Note Type Note Provider Name and Address Organization Details Recorded Time 02/19/2022 text/html Per request: Member seen today 02/18 for itchy/swollen eyes, no other concerns were voiced during visit.Member called back in stating she needed another [facility] for tomorrow 02/19.Member was treated for a UTI 1.5 weeks ago with an ABX. About 4 days ago member states she started with urinary symptoms again. Has c/o pain and burning with urination, urine is dark and concentrated with an odor. Has chill but denies fever. [employer] T[employer] documentation:Patient is a 62 year old female [...] Leukocytes, Nitrates, PH, KET. Urine brought to [facility] for culture. Vital signs obtained and all within normal limits. Red flags discussed. Consulted with Dr. Coronado. Patient is to follow up with PCP on Monday regarding her signs, symptoms and todays visit. Dr. Coronado prescribed the patient Macrobid and Pyridium, prescriptions sent to patients pharmacy for pickup. Patient to contact PCP regarding urine culture results. Contact [facility] for a re-visit if symptoms persist. Contact 1 for any discussed red flags or other emergencies. Eden Coronado MD [address] [place] [address],[address], [place], [phone], [employer] 02/19/2022 16:34:18 03/10/2022 text/html HPI: mbr with complaints of wide spread/painful rash, states watery eyes, no open wounds, pustules reported. denies any SOB/N/V or difficulty swallowing. requesting [facility] vist. Protocol Used: Rash or Redness - Widespread Protocol-Based Disposition: Consider [facility], [facility] Community Clinician, or PCP visit within 24 hours Positive Triage Question: * SEVERE itching (i.e., interferes with sleep, normal activities or school) Negative Triage Questions: * Bloody crusts on lips or sores in mouth * Face becomes swollen * Sore throat ..................... ..................... ..................... ..................... ..................... ..................... ............... [employer] T[employer] Note: dispatched to the above location for a female patient with a rash and itchy eyes. upon arrival patient was located sitting in a chair in her home. patient is alert and oriented X4. patient is Sierra [place]an speaking with little British. family on scene to interpret. at this [...] time vitals obtained and are as documented. [facility] contacted and states to give 40 MG [...] at this time i cleared without incident. ..................... ..................... ..................... ..................... ..................... ..................... ............... Disposition: Fulfilled Kenneth Castellon MD [address] [facility],[address], [place], [address], [employer] 03/11/2022 10:35:01 07/18/2022 text/html [facility] Nursing Assessment: Reason For Request: PMH: fibromyalgia Reasons: Redness all over her face and chest. Rash is warm to the touch. Patient's nephew describes it as mildy itchy. Allergic reaction to something? Patient was recently prescribed Aspirin07/14/22. Patient's nephew states reaction started yesterday (07/17/22) afternoon. Chief Complaints: Syncope/Dizziness/Lig htheadedness PMH: Heart Disease, COPD/Asthma Allergies: No Known [...] to call 911 if this changes . ..................... ..................... ..................... ..................... ..................... ..................... ............... [employer]on T[employer] Note: Sent to a call for a pt complaining of a rash on face and chest. SC8 arrives on scene, pt is alert and oriented. Airway is patent. Pt primarily speaks Sierra Leonean, family serves as soda flaker. Pt was prescribed ASA daily on 07/14, [...] and fluid. Picture of rash uploaded to [facility]. BP:118/78, P:90, RR:18, SpO2:98% RA, T:97.9; Lung sounds: clear bilaterally, no stridor; Abdomen: soft, non-tender; Skin: pink, warm, dry with the exception of rash. [facility] orders Diphenhydramine 50mg IM. Diphenhydramine administered without incident. Red flags discussed. Pt/family has no further questions. ..................... ..................... ..................... ..................... ..................... ..................... ............... Disposition: Fulfilled Bryadon Recio MD [address] [place] [address],[address], [place], [address], [email or web address] 07/18/2022 22:13:17 08/26/2024 text/html CRC Nurse Triage Notes (Neeru Daniels): Reason For Request: Pt's ORNAMENTER reporting UTI Chief Complaints: UTI/Pyelonephritis PMH: Heart Disease, COPD/Asthma, Severe Persistent Mental Illness (SPMI) Allergies: No Known Comments: PMH: COPD, early Dementia, heart disease, Reporting UTI symptoms, painful urination, some bloody urine yesterday, none today, Denies any other symptomsReports a UTI months ago, ORNAMENTER Rachana will be with member today. Will place referral for UTI w/u.verified info: Susana PRADO [employer] Organization Information for Pedro Ferrer Business Legal Name: [facility] [employer] Address: [address] [place] [address], [place] [address], Exhaust Equipment Operator: Henry Monreal MD CLIA No.: [id number] [employer] POC Test Results from Pedro Ferrer Urine Dipstick (18:19:27) Urine leukocytes: 3+ MARCOS Urine nitrites: + NIT Urine urobilinogen: - URO Urine protein: 2+ PRO Urine pH: 6.0 pH Urine blood: trace BLO Urine specific gravity: 1.010 SG Urine ketones: - KET Urine bilirubin: - JOSI Urine glucose: - GLU ..................... ..................... ..................... ..................... ..................... ..................... ............... Rayon Tester Note From Pedro Ferrer: Miss Ulrich is [...] is sent to [facility]. I consultative the [facility] will send prescription to pharmacy. Patient's family states they will orange picking supervisor the prescription today. I educated Mrs. Ulrich and her family about the prescription, the importance of oral hydration and regarding follow-up care with primary care and/or urology. Mr. Price is instructed to present to the emergency department for new or worsening severe symptoms such as chest pain, shortness of breath, high fever, altered mental status, fever, nausea, vomiting, diarrhea. Ms. Zaid interfamily were given the opportunity to ask questions. [facility] Lab Orders: culture, urine: Performed ..................... ..................... ..................... ..................... ..................... ..................... ............... Disposition: Liban Gerardo Lunsford MD [address] [place] [address],[address], [place], [address], [email or web address] 08/26/2024 20:23:43 08/21/2025 text/html ROS as noted in the [facility] CRC Nurse Triage Notes (Nancy Wadsworth): Reason [...] Persistent Mental Illness (SPMI) PMH Reviewed at 08/21/2025: Allergies Reviewed at 08/21/2025 - :09 Comments: 65 y.o female complains of Urinary Symptoms ORNAMENTER reporting symptoms. Foul smelling urine and new lower back pain since yesterday or the day before. Hot and cold on and off - denies fever. New lower back pain - 8-10. PRN tylenol w/ minimal effect. B/l flank [...] signs of when to seek emergency care. Rayon Tester Organization Information for Kenneth Gonsales Business Legal Name: [email or web address]. Address: [address] [place] [address], Exhaust Equipment Operator: Carlos Woody MD [facility] No.: [id number] [employer] POC Test Results from Kenneth Gonsales Urine Dipstick (12:42:41) Urine leukocytes: 70+MARCOS Urine nitrites: -NIT Urine urobilinogen: 0.2URO Urine protein: 0.3PRO Urine pH: 6.0pH Urine blood: -BLO Urine specific gravity: 1.010SG Urine ketones: 15KET Urine bilirubin: -JOSI Urine glucose: -GLU Attachments uploaded as part of this test result can be found under Documents section. ..................... ..................... ..................... ..................... ..................... ..................... ............... Rayon Tester Note From Kenneth Gonsales: [facility] makes pt contact a 65 yo F CC of uti like symptoms for two days. [facility] obtains vital signs. PT provides a clean catch urine sample. [facility] performs urine dipstick test and collects specimen for the lab. PT ORNAMENTER explains pt for the past two days [...] IV antibiotics. No known allergies. [facility] contacts [facility] and explains above mentioned. [facility] not convinced it is a UTI. [facility] advises pt be seen in the hospital for a full work up and imaging of the kidneys or reach out to her PCP regarding follow up. PT would rather reach out to PCP. [facility] explains red flags such as worsening pain, unable to hold/void urine, new onset fever, sob, chest pain, n/v. That pt should then seek a higher level of care such as 911. PT understands. Culture to be dropped off at [facility]. [facility] clear. [facility] Lab Orders: culture, urine: Performed urinalysis, dipstick: Performed ..................... ..................... ..................... ..................... ..................... ..................... ............... [facility] Consulted: John Ferrer ..................... ..................... ..................... ..................... ..................... ..................... ............... Disposition: Fulfilled John Ferrer MD [address] [facility],[address], [place], [address], [employer] 08/21/2025 13:49:25 OBGyn Episode No OBEpisode recorded.
--- NOTE | 2025-08-24 13:55 | ECG_ITS ---
Test Reason : ARM PAIN Blood Pressure : */* mmHG Vent. Rate : 90 BPM Atrial Rate : 90 BPM P-R Int : 156 ms QRS Dur : 94 ms QT Int : 368 ms P-R-T Axes : 10 7 13 degrees QTcB Int : 450 ms Normal sinus rhythm Incomplete right bundle branch block Septal infarct , age undetermined Abnormal ECG When compared with ECG of 25-Jun-2025 14:05, Inverted T waves have replaced nonspecific T wave abnormality in Anterior leads Referred By: Evangelina Darby Electronically Signed By: MONIK JUAREZ
[2025-08-24 15:13] LABS: MANUAL DIFF FLAG NO
[2025-08-24 15:16] LABS: Hematocrit 36.6 % (37.0-47.0); Hemoglobin 11.3 g/dl (12.0-16.0); Imm Gran Abs Auto 0.05 X10*3/uL (0.00-0.03); Imm Gran Pct Auto 0.7 % (0.0-0.4); Lymphocytes Absolute Auto 1.3 X10*3/uL (1.2-4.9); Mean Corpuscular HGB Conc 30.9 g/dl (31.0-35.0); Mean Corpuscular Hemoglobin 28.3 pg (27.0-33.0); Mean Corpuscular Volume 91.7 fL (80.0-98.0); NRBC Abs Auto 0.000 X10*3/uL (0.0-0.012); NRBC Pct Auto 0.0 /100WBC (0.0-0.2); Platelet Count 312 X10*3/uL (160-400); Red Blood Count 3.99 X10*6/uL (4.20-5.50); White Blood Count 6.7 X10*3/uL (4.8-10.8)
[2025-08-24 15:31] LABS: Alanine Aminotransferase 9 U/L (0-31); Albumin Level 3.7 g/dL (3.5-5.0); Alkaline Phosphatase 102 U/L (39-117); Anion Gap 12 (12-20); Aspartate Amino Transferase 24 U/L (5-31); Blood Urea Nitrogen 14 mg/dL (9-16); Calcium 8.9 mg/dL (8.4-10.2); Carbon Dioxide 28 mmol/L (22-29); Chloride 109 mmol/L (96-108); Creatinine Clr Calc Pharmacy 71.8; Estimated Glomerular Filt Rate > 60; Lipase 9 U/L (8-78); Magnesium 2.0 mg/dL (1.6-2.6); Potassium 3.8 mmol/L (3.3-5.1); Sodium 145 mmol/L (135-145); Total Protein 6.7 g/dL (6.5-8.0)
[2025-08-24 15:39] LABS: Troponin-I High Sensitivity < 2.7 ng/L (<3.5-17.0)
[2025-08-24 16:58] LABS: Appearance Urine Clear; Glucose Urine UA Negative (Negative); PH 7.0 (5.0-9.0); Specific Gravity - Urine 1.010 (1.005-1.025); UMIC TRIGGER UACC YES
[2025-08-24 17:53] LABS: Troponin-I High Sensitivity < 2.7 ng/L (<3.5-17.0)
--- NOTE | 2025-08-24 19:15 | PC.NURSE ---
Pt discharged awaiting EMS to return home
== END 2025-08-24 22:18 | disposition home or self-care (01) ==
PROVIDERS: Physician Assistant Medical; Emergency Provider Emergency Medicine Emergency Medical Services; PCP Internal Medicine
DX: R10.A2 Flank pain, left side (principal); R30.0 Dysuria; I95.9 Hypotension, unspecified; I45.10 Unspecified right bundle-branch block; R94.31 Abnormal electrocardiogram [ECG] [EKG]; E66.01 Morbid (severe) obesity due to excess calories; Z68.42 Body mass index [BMI] 45.0-49.9, adult; Z99.81 Dependence on supplemental oxygen; Z86.711 Personal history of pulmonary embolism; Z87.440 Personal history of urinary (tract) infections; Z79.01 Long term (current) use of anticoagulants
CPT/HCPCS: 36415; 74176; 80048; 80076; 81001; 81003; 83605; 83690; 83735; 84484; 85025; 87040; 93005; 99285; J0131; J2270

== ENCOUNTER → 2025-08-24 13:54 | Outpatient (BNV) | payer OTHER, SELFPAY | PROVIDERS: Emergency Provider Emergency Medicine Emergency Medical Services; PCP Internal Medicine; Visit Provider Radiology Diagnostic Radiology | DX: R10.A2 Flank pain, left side (principal) | CPT/HCPCS: 74176 ==

== ENCOUNTER → 2025-08-24 13:55 | Outpatient (BNV) | payer OTHER, SELFPAY | PROVIDERS: Emergency Provider Emergency Medicine Emergency Medical Services; PCP Internal Medicine; Visit Provider Internal Medicine | DX: I45.10 Unspecified right bundle-branch block (principal) | CPT/HCPCS: 93010 ==

== ENCOUNTER 2025-08-31 00:31 | Emergency (ER) | payer OTHER, SELFPAY ==
[2025-08-31] VITALS (10 sets, daily range): BP systolic 113–141; BP diastolic 64–88; PULSE 87–96; RESP 12–20; TEMP -17.7–36.6; O2SAT 95–100; BMI 46.3
--- NOTE | ~2025-08-31 | CT_ITS ---
CLINICAL HISTORY: dissection study CT angiography chest, abdomen and pelvis with contrast. 3-D post processing. Comparison: CT/SR - CT ANGIO CHEST PE PROTOCOL - 06/25/2025 05:48 PM EDT Findings: Chest CT: Included lower neck, thyroid gland and mediastinum unremarkable. There is no chest lymphadenopathy. No cardiomegaly or pericardial effusion. No aortic dissection or aneurysm. Patent branches of the aortic arch. Pulmonary arteries are nonenlarged. No evidence of pulmonary embolism. Bibasal gravity dependent congestion changes. The lungs are otherwise clear. No pneumothorax or effusions. Airways are patent. No acute soft tissue or skeletal abnormality in the chest. Partially seen left shoulder joint arthroplasty. Abdomen pelvis CT: Abdominal solid organs without acute abnormality or abnormal enhancement. Adrenal glands are nonenlarged. Gallbladder nondistended. The bowel loops are nondilated. No focal colonic lesions. No evidence of pneumatosis or mesenteric inflammation. Appendix is normal. No free fluid, collections or free air. No aortic dissection or aneurysm. Patent branches of the abdominal aorta. No evidence of portal or mesenteric venous gas. No lymphadenopathy. The bladder is normal. No acute soft tissue or skeletal abnormality in the abdomen pelvis. IMPRESSION: No acute process in the chest, abdomen or pelvis. This document has been electronically signed by: John Rogers MD on 08/31/2025 06:57:58
--- NOTE | ~2025-08-31 | CT_ITS ---
CLINICAL HISTORY: left flank pain CT Abdomen and Pelvis W Contrast COMPARISON: CT/REG/SR - CT ABDOMEN PELVIS WO IV CON - 08/24/25 14:15 EDT FINDINGS: Bibasilar atelectasis. Normal liver. Normal spleen. Normal kidneys. Normal adrenal glands. Normal pancreas. No visible cholelithiasis. No biliary dilation. No evidence of bowel obstruction or colitis. Normal appendix. Unremarkable bladder. Status post hysterectomy. No ascites. No pneumoperitoneum. No lymphadenopathy. No acute fracture. Degenerative changes in the spine. No abdominal aortic aneurysm. IMPRESSION: No acute findings. This document has been electronically signed by: Reginaldo Mclaughlin MD on 08/31/2025 01:33:25
--- NOTE | ~2025-08-31 | CT_ITS ---
CLINICAL HISTORY: dissection CT angiography chest, abdomen and pelvis with contrast. 3-D post processing. Comparison: 06/25/2025 Findings: Chest CT: Included lower neck, thyroid gland and mediastinum unremarkable. There is no chest lymphadenopathy. No cardiomegaly or pericardial effusion. No aortic dissection or aneurysm. Patent branches of the aortic arch. Pulmonary arteries are nonenlarged. No evidence of pulmonary embolism. Bibasal gravity dependent congestion changes. The lungs are otherwise clear. No pneumothorax or effusions. Airways are patent. No acute soft tissue or skeletal abnormality in the chest. Partially seen left shoulder joint arthroplasty. Abdomen pelvis CT: Abdominal solid organs without acute abnormality or abnormal enhancement. Adrenal glands are nonenlarged. Gallbladder nondistended. The bowel loops are nondilated. No focal colonic lesions. No evidence of pneumatosis or mesenteric inflammation. Appendix is normal. No free fluid, collections or free air. No aortic dissection or aneurysm. Patent branches of the abdominal aorta. No evidence of portal or mesenteric venous gas. No lymphadenopathy. The bladder is normal. No acute soft tissue or skeletal abnormality in the abdomen pelvis. IMPRESSION: No acute process in the chest, abdomen or pelvis. This document has been electronically signed by: John Rogers MD on 08/31/2025 06:56:34
--- NOTE | ~2025-08-31 | XR_ITS ---
CLINICAL HISTORY: chest pain 1 view chest x-ray Comparison: CR/SR - XR CHEST 2 VIEWS - 06/25/25 15:43 EDT Findings: The lungs are clear. Normal size heart. No acute fracture. Partially seen well-seated left shoulder joint arthroplasty IMPRESSION: 1. No acute findings. This document has been electronically signed by: John Rogers MD on 08/31/2025 04:32:08
--- OUTSIDE RECORDS SUMMARY | 2025-08-31 01:08 | XMS_ITS | Continuity of Care Document ---
Author Organization [place] [facility] [employer], [facility] Address [address] [place] [address] Care Team Providers Care Advisor Consultant Name Role Phone DICKSON SAEZ Primary Care Provider [facility] JOCELYN OTHER Assessment Encounter Date Assessment Date Assessment LastModified by Organization Details LastModified Time 08/28/2025 08/28/2025 As noted, we wer e called to see this patient regarding concerns of itchy rash. Evaluation in the field was performed by my oil pump station operator chief colleague, as noted above, I provided real-time direction and supervision for this visit. The evaluation revealed The patient is a 65 year old female with the past medical history of. Coronary Artery Disease, COPD/Asthma, Severe Persistent Mental Illness (SPMI) Who presents with an ongoing allergic reaction rash. Patient who was treated with cefuroxime for a UTI. She was seen on the . By the instead team and prescribed [id number] mg PO for a total of three days. She still has her rash It is not getting any better. She took 2 pills of the Cefuroxime On the and then was seen on the . by the insted team. She was prescribed Prednisone 20 milligrams daily. She took her last pill today. She also took 75 milligrams of Benadryl this morning. Patient is still having itching. They are also using some hydrocortisone cream and Benadryl cream. Patient has no other new medicines. Her last new medicine was Eliquis 2 months ago. I'm concerned that her Prednisone was dosed at a low dose. We will give her an additional 40 milligrams of Prednisone right now. We'll place her on 60 milligrams of Prednisone daily for the next 4 days. If the patient's rash is not getting better in the next 24 hours, then she may need hospital treatment with Iv steroids. She could have a Brent Jarred syndrome developing. Currently she has no mouth or vaginal involvement of the rash. She is on multiple. Medications that can be associated with Brent Jarred's syndrome. Multiple. Anti epileptics and antipsychotic medicines. However, none of these are new medicines for her. Red flags were discussed with the family. And the patient on when to seek ER treatment. We will have some follow up tomorrow by the team. Through a phone call to see how she is doing. Impression: Acute allergic reaction with a puritic rash probably form Cefuroxime Plan: 1) PRednisone increased dose to 60 mg po for 5 days 2) Pt still with some urinary symptoms. UA repeated no signs of infection 3) Hospitalization if rash and puritis no improving in 24 hours or she gets any motuh or vaginal involvement Primary care, consider if rash is getting wore over the next 24 hours patient may need to be evaluated for brent jarred syndrome in the Er/Hospital. Especially if there is vaginal or mouth involvement Disposition: stay at home We discussed the diagnostic uncertainty of home visits and the risk associated with this. In this case, the patient and I felt this to be an acceptable and reasonable amount of risk given the benefit of avoiding an ED visit. We discussed the need to seek care urgently/emergentl y in the setting of any new or worsening serious symptoms, particularly ___ OR We discussed the situation and I recommended referral to the emergency department. This was based on [email or web address] Not available 08/28/2025 11:20:37 Plan of Treatment Reminders Order Date Submit Date Provider Last Modified By Organization Details Last Modified Time Details Appointments None recorded. Lab urinalysis, dipstick 2024 [facility], [address] [place] [address], [id number] 16:08:37 Referral None recorded. Procedures None recorded. Surgeries None recorded. Imaging None recorded. Medication Orders prednisone 20 mg tablet 2024 025 [facility][id number], [address] [facility], [place], [address], 11:05:23 prednisone 20 mg tablet 2024 025 [email or web address] 7 [id number], [address] [place], [address], 11:17:54 Patient TargetsNo targets recorded. Patient InstructionsNo instructions recorded. Reason for Referral None Reported. Results Created Date Observation Date Name Description Value Unit Range Abnormal Flag Note LastModifiedBy Organization Detail LastModifiedTime 08/21/2008/23/2025 URINE CULTU RE, UROLO GY SAKINA P urine culture, urology workup Final report Not Available [facility] ([facility]) [address], [place], [address], 08/23/2025 18:05:32 08/21/2008/23/2025 URINE CULTU RE, UROLO GY SAKINA P result 1 COMMEN T Mixed uroge nital lizeth 10,00 0-25, 000 colon y formi ng units per mL Not Available [facility] ([facility]) [address], [place], [address], 08/23/2025 18:05:32 08/21/2008/21/2025 ONE SPECI MEN IDENT IFIER one [...] of colle ction . Not Available [facility] ([facility]) [address], [place], [address], 08/22/2025 20:06:16 Result Notes None recorded. Medical Equipment None Reported. Allergies Allergen ID Allergen Name Allergen Category Reaction Reaction Severity Criticality Documentation Date Start Date Code Code System Note Provider Name and Address Organization Details Recorded Time 88960 cefuroxim e Not available Not available Not available Not available 08/26/2025 2194 RxNorm Not Available [facility] - production 09:44:16 Medications Name Sig Start Date Stop Date [...] Available Not Available prednisone 20 mg tablet Take 3 tablets by oral route for 4 days. 2024 active Not Available Not Available Not Avai lable gabapentin 400 mg capsule TAKE 1 CAPSULE [...] Available Vitals Date Recorded Heart rate Body weight Body temperature Respiratory rate Body height Oxygen saturation Oxygen saturation in Arterial blood by Pulse oximetry Systolic And Diastolic Provider Name and Address Organization Details Last Updated DateTime 5 94 /min 90391.4 g 99.1 [degF] 14 /min 157.48 cm 98 % 98 % 132/84 mm[Hg] Not Available [facility] - production 5 11:00:59 Social History None recorded. Functional Status None recorded. Mental Status None recorded. Family History Nothing Reported. Medical History No medical history recorded. Gynecological HistoryNo gynecological history recorded. Obstetrics History GPAL:G 0 P 0 0 0 0 Past Encounters Encounter ID Performer Location Encounter Start Date Encounter Closed Date Diagnosis/Indication Diagnosis SNOMED-CT Code Diagnosis ICD10 Code Diagnosis IMO Codes Diagnosis Note [id number] John Ferrer MD [facility] ED Medical [address] [address] 08/21/2025 12:52:47 08/21/2025 14:31:53 Acute low back pain 754549011 M54.50 [id number] Francisco Javier Arroyo MD [facility] Medical [address] [address] 08/24/2025 12:03:23 08/24/2025 21:36:47 Flank pain 341838925 R10.A3 [id number] Patient seen a few days prior with flank pain and had advised to go to the ED. Recent Urine culture with mixed lizeth from 3 days prior; currently positive LE but neg nitrite. Given 08/08 flank pain for many days, advised to go to ED for imaging and patient agrees. [id number] Heide Silva MD [facility] ED Medical [address] [address] 08/26/2025 16:41:55 08/27/2025 11:47:33 Pruritic rash 29053520 L28.2 583231 Pruritic d isorder of skin 5329374285 L29.9 [id number] MARTA GUERRERO MD [facility] ED Medical [address] [address] 08/28/2025 11:00:53 08/28/2025 19:00:03 Acute allergic reaction 943016235 T78.40XD [id number] Eruption c aused by drug 33654484 L27.0 58672960 Health Concerns Section Related Observation LastModified by Organization Detai ls LastModified Time None Recorded Concern Status LastModified by Organization Details LastModified Time None Recorded Payers Encounter Date Sequence Insurance Name Policy Number Policy Burnham Covered Member ID Burnham Member ID Guarantor Name 08/28/2025 1 [facility] - DOS ON OR AFTER 2023 - DUAL ELIGIBLE - RETIREMENT OPTIONS AND ONE CARE (MEDICARE REPLACEMENT/ADV ANTAGE - HMO) Gracy Mead [id number] Gracy Mead Notes Date Note Type Note Provider Name and Address Organization Details Recorded Time 08/28/2025 text/html ROS as noted in the [facility] Nurse Triage Notes (Nancy Wadsworth): Reason For Request: last seen 08/26, 08/24, 08/21PCA requesting revisit due to itchiness still being around her body Patient Reports: Rash Denies: Orellana Flash, circumferential orellana Orellana reported with black tissue to the area Open skin area after a fall with uncontrolled bleeding Abscess/infection with streaking noted, presence of fever or without Chief Complaints: Rash PMH: Coronary Artery Disease, COPD/Asthma, Severe Persistent Mental Illness (SPMI) PMH Reviewed at 08/28/2025:44 Allergies Reviewed at 08/28/2025 - 09:44 Comments: 65 y.o female complains of Rash Itchiness/rash x3 days. Has been taking prednisone for three days w/ no effect. No creams prescribed. 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 Some open areas due to scratching. Reports home O2 use PRN - using today due to mild shortness of breath. Albuterol inhaler as needed. On eliquis. I provided information on the mobile health provider response time and advised the patient and/or caregiver to monitor reported signs and symptoms. I discussed the warning signs of when to seek emergency care. Journal Entry Audit Clerk Organization Information for Bernard Porter Naubo Legal Name: [facility] Address: [address] [place] [address], [place] [address], Program Engineer: Henry Monreal MD [facility] No.: [id number] Journal Entry Audit Clerk POC Test Results from Bernard Porter Urine Dipstick (10:55:41) Urine leukocytes: -MARCOS Urine nitrites: -NIT Urine urobilinogen: 0.2URO Urine protein: -PRO Urine pH: 5.0pH Urine blood: -BLO Urine specific gravity: 1.005SG Urine ketones: -KET Urine bilirubin: -JOSI Urine glucose: -GLU ..................... ..................... ..................... ..................... ..................... ..................... ............... Journal Entry Audit Clerk Note From Bernard Porter: Patient alert and oriented complains of burning itching irritation on her skin, forehead, chest hands. Patient reports symptoms started 24 hours after taking cefuroxime for dysuria. Patient has used Benadryl, prednisone, hydrocortisone, and Benadryl creams with little to no relief. Patient reports feeling itchy inside her body and in the back of her throat. Patient also complains of diaphoresis, a h ot feeling on her head and face. Patient also reports 10 days of dysuria, frequent painful urination. Patient denies other pain or complaints. Patient pink warm dry, patient appears flushed. Positive full sentences negative increase work of breathing abdomen soft non tender extremities unremarkable no edema noted. Patient walks with a smooth steady, even slow GAIT. Medication administered as ordered without complication using five rights. Red flags patient education discussed. Patient encouraged to call back or attend ED if symptoms do not begin to decrease in the next several days. Family with patient throughout. [facility] Lab Orders: urinalysis, dipstick: Performed [facility] Medication Orders: prednisone 20 mg tablet: Performed ..................... ..................... ..................... ..................... ..................... ..................... ............... [facility] Consulted: Marta Guerrero ..................... ..................... ..................... ..................... ..................... ..................... ............... Disposition: Liban GUERRERO MD [address] [facility],[address], [place], [address], [employer] 08/28/2025 16:03:46 OBGyn Episode No OBEpisode recorded.
--- OUTSIDE RECORDS SUMMARY | 2025-08-31 01:08 | XMS_ITS | Encounter Summary ---
Author Organization [facility] Address [address] [place] [address] Phone Care Team Providers Care Set Decorator Name Role Phone Pcp, Unknown Primary Care Provider Unavailabl e Encounter Details Date Type Department Care Team (Late st Contact Info) Description 06/20/2020 Transcribe Orders [facility] Specimen Processing [address] [place] [address] Anton Stoddard MD [address] [facility] [address], [address] [place] [address] [email or web address] Encounter for screening laboratory testing for COVID-19 [...] AM EDT) Specimen Source/Descriptio n NASOPHARYNGEAL SWAB [facility] Comment NASOPHARYNGEAL SWAB [facility] SARS-CoV 2 (COVID-19) PCR Not Detected Not Detected [facility] Comment: Negative results do not preclude SARS-CoV-2 [...] ORDERABLE S Final Result Performing Organization Address City/State/[facility] Co de Phone Number [address] [address] * COVID-19 PCR Order (06/20/2020 8:00 AM EDT) Specimen Source NASOPHARYNGEAL SWAB (PHOTOENGRAVING MACHINE OPERATOR/TENDER) [facility] COVID Testing Status Sent to [facility] Micro Lab [facility] Other 06/20/2020 8:00 AM EDT 06/20/2020 11:46 AM EDT Anton Stoddard MD BODY FLUIDS AND STOOLS ORDERABLE S Final Result Performing Organization Address City/[facility] Co de Phone Number [address] [address] documented in this encounter Visit Diagnoses Diagnosis Encounter for screening laboratory testing for COVID-19 virus- Primary documented in this encounter Additional Health Concerns Infection Onset Date Last Indicated Resolved Time CoV-Exposed Comment:Recent close contact 06/18/2020 06/18/2020 07/02/2020 1:24 AM EDT CoV-Exposed Comment:Recent close contact 07/10/2020 07/10/2020 07/24/2020 1:23 AM EDT documented as of this encounter Care Teams Set Decorator Relationship Specialty Start Date End Date Pcp, Unknown PCP - General 05/20/20 documented as of this encounter Additional Source Comments The information contained in this document represents components of the legal health record. It is not the complete legal health record.[facility]
--- OUTSIDE RECORDS SUMMARY | 2025-08-31 01:08 | XMS_ITS | Clinical Summary ---
Author Organization [facility] Address [address] [address] Phone Care Team Providers Care Guidance Services Coordinator Name Role Phone Pcp, Unknown Primary Care [...] on file Insurance MEDICARE REPLACEMENT [place] [id number] MEDICARE REPLACEMENT [place] [id number] MEDICARE REPLACEMENT MEDICARE REPLACEMENT MEDICARE REPLACEMENT MEDICARE REPLACEMENT MEDICARE REPLACEMENT [place] [address] [place] [address] ONE CARE MEDICARE REPLACEMENT [place] [id number] Care Teams Guidance Services Coordinator Relationship Specialty Start Date End Date Pcp, Unknown PCP - General 05/20/20 Additional Source Comments The information contained in this document represents components of the legal health record. It is not the complete legal health record.[facility]
--- OUTSIDE RECORDS SUMMARY | 2025-08-31 01:08 | XMS_ITS | Encounter Summary ---
Author Organization [facility] Address [address] [place] [address] Encounters * CPT with [facility] at [facility] on 2025-08-26 { reasonForRequest : Last seen 08/24\nPCA requesting help in med reconciliation due to the pt recently being seen in the ER , patientReports : Rash , denie s :[ Orellana Flash, circumferential orellana , Orellana reported with black tissue to the area , Open skin area after a fall with uncontrolled bleeding , Abscess/in fection with streaking noted, presence of fever or without ], chiefComplaints : Rash , pmh : Coronary Artery Disease, COPD/Asthma, Severe Persistent Mental Illn ess (SPMI) , allergies : No Known Drug Allergies , otherAllergies&quot ;: , painAssessment : , visitOutcome : , additionalComments : 65 y.o female complains of Rash\n\nPCA reporting rash starting yesterday night. Rash started on her chest and now spread all the ay down to her feet. Itchy and red. Was in the hospital on Monday for UTI. Was started on Ceftriaxone for UTI, given yesterday and this morning. Was also given morphine in ER and prescription for PRN, has taken prior without reaction. Denies shortness of breath, drooling, difficulty swallowing, coughing, wheezing or chest pain. On anticoagulation eliquis BID. Denies kidney issues - kidney function just tested during ER visit and was normal per COUNTY LIBRARY DIRECTOR. \n\nI provided information on the mobile health provider response time and advised the patient and/or caregiver to monitor reported signs and symptoms. I discussed the warning signs of when to seek emergency care. } RONY responds to the listed address for a 65 yof w/ a c/c of rash. Upon arrival on scene, pt is found sitting in a recliner in her living room. She is squirming in her chair and scratching her arms. She is alert and makes eye contact w/ MIH. Her face is flushed, butshe is otherwise well-appearing. No increased WOB, stridor, pr sonorous respirations are present. She has no facial droop or one-sided weakness and she is not bleeding anywhere. COUNTY LIBRARY DIRECTOR is on scene to assist w/ translation and Hx. This [facility] provider sent pt to the ER two days ago to r/o kidney infection. COUNTY LIBRARY DIRECTOR and pt tell MIH she was placed on IV abx in the ED and was sent home w/ cefuroxime BID. Last night pt developed systemic itchiness and was unable to sleep. Today after her third doseof the abx and continuous scratching, she has begun to develop a petechia-like rash on both arms, her face is flushed, and she has a light-colored rash on her left upper chest. She has taken 6 or 8 Benadryl today and used topical Benadryl cream w/ little to no relief of the itch. She denies feeling sob, cp, swelling of the lips, face, tongue, or throat and has had no n/v/d or fevers. She has been having intermittent chills. The ER discharged her w/ no Dx of any specific infection because it was unable to be determined where the infection was coming from, according to COUNTY LIBRARY DIRECTOR. Pt was also given and has taken Morphine, 15mg Q6H. Ddx: abx reaction, morphine rxn [facility] immediately listens to lung sounds and finds they are clear to auscultation. No stridor is present in the throat and neck is supple and trachea is midline. Oral mucosa are pink and moist, no selling is noted of the lips, face, or tongue. Heart beat is strong, regular and accelerated w/ no clicks or rubs noted. Vital signs are obtained and pt is normotensive, tachycardic, afebrile, and not hypoxic. Pt has a pethechia-like rash to the lateral side of both arms at the elbow and an area on her L upper chest that is hard to determine if it is a rash or the natural color of her skin in the light available. No other areas of petechia or rash, wheal, or welts are noted on pt's body. [facility] contacts [facility] and discusses the above. [facility] prescribes a 3-day prednisone taper and orders pt to stop taking the prescribed abx and to immediately call her PCP for an appointment. [facility] order 60mg PO for pt now.[facility] administers 20mg x3 tablets prednisone to pt PO. [facility] informs pt to contact her PCP and get and appointment ERIK. Pt and COUNTY LIBRARY DIRECTOR are also advised to call 911 immediately if pt develops sob, wheezing, swelling of the lips, face, tongue or feels her throat is swelling, development of n/v/d, or abd pain, as these are all signs of serious allergic reaction. Both give their verbal understanding. [facility] ensures pt has no further questions and she is left in stable condition. [facility] is clear. Report completed by JAYY Souza [id number]. PO_MEDICATION Written by Medical [facility] on 2025-08-26
--- OUTSIDE RECORDS SUMMARY | 2025-08-31 01:08 | XMS_ITS | Continuity of Care Document ---
Author Organization [facility] Address [address] [place] [address] Care Team Providers Care Silk Screen Operator Name Role Phone DICKSNO SAEZ Primary Care Provider [facility] OTHER Assessment Encounter Date Assessment Date Assessment LastModified by Organization Details LastModified Time 08/26/2025 08/26/2025 I provided real -time medical direction via phone for this encounter and was available for additional phone-based assistance as needed. I have reviewed and agree with the Assessment and Plan as documented by the Business Strategy Manager. Patient given the opportunity to ask questions. Our service contacted for an assessment of: pruritis As per above, patient was seen in the ED 2 days ago and given unknown medication then DC'd on Cefuroxime 250 mg BID to complete a 7 day course. Today developed intense pruritis and has been scratching resulting in micro bleeding into the skin primarily on the legs, back and chest. Denies facial, tongue swelling, SOB, CP, BARRY. Per cardiovascular technologist on the scene, VSS, please see uploaded pictures Please read the cardiovascular technologist note for their exam findings. Impression: Drug reaction Plan: Short course of Prednisone. Patient is already over-using Benadryl. Recommended to decrease dose to one appropriate for a drug reaction. Advised to call PCP and f/u in AM. Red flags discussed. Allergies: Reviewed and updated PCP f/u: We discussed the diagnostic uncertainty of home visits and the risk associated with this. In this case, the patient and I felt this to be an acceptable and reasonable amount of risk given the benefit of avoiding an ED visit. We discussed the need to seek care urgently/emergentl y in the setting of any new or worsening serious symptoms, particularly fever chills lightheadedness altered mental status [email or web address] Not available 08/26/2025 17:06:03 Plan of Treatment Reminders Order Date Submit Date Provider Last Modified By Organization Details Last Modified Time Details Appointments None recorded. Lab None recorded. Referral None recorded. Procedures None recorded. Surgeries None recorded. Imaging None recorded. Medication Orders prednisone 20 mg tablet 2024 025 [email or web address] [facility]/Pharmacy #[id number], [address] [place], [address], 16:54:41 prednisone 20 mg tablet 2024 025 MAGDY [facility]/Pharmacy #[id number], [address] [place], [address], 16:54:43 Patient TargetsNo targets recorded. Patient InstructionsNo instructions recorded. Reason for Referral None Reported. Results Created Date Observation Date Name Description Value Unit Range Abnormal Flag Note LastModifiedBy Organization Detail LastModifiedTime 08/21/2008/23/2025 URINE CULTU RE, UROLO GY SAKINA P urine culture, urology workup Final report Not Available [facility] ([facility]) [address] [facility], [place], [address], 08/23/2025 18:05:32 08/21/2008/23/2025 URINE CULTU RE, UROLO GY SAKINA P result 1 COMMEN T Mixed uroge nital lizeth 10,00 0-25, 000 colon y formi ng units per mL Not Available [facility] ([facility]) [address] [facility], [place], [address], 08/23/2025 18:05:32 08/21/2008/21/2025 ONE SPECI MEN IDENT [...] of colle ction . Not Available [facility] ([facility]) [address] [facility], [place], [address], 08/22/2025 20:06:16 Result Notes None recorded. Medical Equipment None Reported. Allergies Allergen ID Allergen Name Allergen Category Reaction Reaction Severity Criticality Documentation Date Start Date Code Code System Note Provider Name and Address Organization Details Recorded Time 50549 cefuroxim e Not available Not available Not [...] No t Available Vitals Date Recorded Body weight Body temperature Respiratory rate Body height Heart rate Oxygen saturation Oxygen saturation in Arterial blood by Pulse oximetry Systolic And Diastolic Provider Name and Address Organization Details Last Updated DateTime 5 379356. 224 g 98.3 [degF] 18 /min 154.94 cm 102 /min 96 % 96 % 130/83 mm[Hg] Not Available [facility] - production 5 16:42:05 Social History None recorded. Functional Status None recorded. Mental Status None recorded. Family History Nothing Reported. Medical History No medical history recorded. Gynecological HistoryNo gynecological history recorded. Obstetrics History GPAL:G 0 P 0 0 0 0 Past Encounters Encounter ID Performer Location Encounter Start Date Encounter Closed Date Diagnosis/Indication Diagnosis SNOMED-CT Code Diagnosis ICD10 Code Diagnosis IMO Codes Diagnosis Note [id number] John Ferrer MD [address] [address] 08/21/2025 12:52:47 08/21/2025 14:31:53 Acute low back pain 531374745 M54.50 [id number] Francisco Javier Arroyo MD [address] [address] 08/24/2025 12:03:23 08/24/2025 21:36:47 Flank pain 672358382 R10.A3 [id number] Patient seen a few days prior with flank pain and had advised to go to the ED. Recent Urine culture with mixed lizeth from 3 days prior; currently positive LE but neg nitrite. Given 08/08 flank pain for many days, advised to go to ED for imaging and patient agrees. [id number] Heide Silva MD [address] [address] 08/26/2025 16:41:55 08/27/2025 11:47:33 Pruritic rash 08882656 L28.2 409761 Pruritic d isorder of skin 3907324242 L29.9 22031 Health Concerns Section Related Observation LastModified by Organization Detai ls LastModified Time None Recorded Concern Status LastModified by Organization Details LastModified Time None Recorded Payers Encounter Date Sequence Insurance Name Policy Number Policy Burn[place] Covered Member ID Burnham Member ID Guarantor Name 08/26/2025 1 [facility] - DOS ON OR AFTER 2023 - DUAL ELIGIBLE - SNF OPTIONS AND ONE CARE (MEDICARE REPLACEMENT/ADV ANTAGE - HMO) Gracy Mead [id number] Gracy Mead Notes Date Note Type Note Provider Name and Address Organization Details Recorded Time 08/26/2025 text/html [facility] Nurse Triage Notes (Nancy Wadsworth): Reason For Request: Last seen 08/24PCA requesting help in med reconciliation due to the pt recently being seen in the ER Patient Reports: Rash Denies: Orellana Flash, circumferential orellana Orellana reported with black tissue to the area Open skin area after a fall with uncontrolled bleeding Abscess/infection with streaking noted, presence of fever or without Chief Complaints: Rash PMH: Coronary Artery Disease, COPD/Asthma, Severe Persistent Mental Illness (SPMI) PMH Reviewed at 08/26/2025:42 Allergies Reviewed at 08/26/2025:42 Comments: 65 y.o female complains of Rash SOFTBALL WINDER reporting rash starting yesterday night. Rash started [...] during ER visit and was normal per SOFTBALL WINDER. I provided information on the mobile health provider response time and advised the patient and/or caregiver to monitor reported signs and symptoms. I discussed the warning signs of when to seek emergency care. ..................... ..................... ..................... ..................... ..................... ..................... ............... Business Strategy Manager Note From Mauricio Souza: [facility] responds to the listed address for a 65 yof w/ a c/c of rash. Upon arrival on scene, pt is found sitting in a recliner in her living room. She is squirming in her chair and scratching her arms. She is alert and makes eye contact w/ [facility]. Her face is flushed, but she is otherwise well-appearing. No increased WOB, stridor, pr sonorous respirations are present. She has no facial droop or one-sided weakness and she is not bleeding anywhere. SOFTBALL WINDER is on scene to assist w/ translation and Hx. This [facility] provider sent pt to the ER two days ago to r/o kidney infection. SOFTBALL WINDER and pt tell MI she was placed on IV abx in the ED and was sent home w/ cefuroxime BID. Last night pt developed systemic itchiness and was unable to sleep. Today after her third dose of the abx and continuous scratching, she has [...] the infection was coming from, according to SOFTBALL WINDER. Pt was also given and has taken Morphine, 15mg Q6H. Ddx: abx reaction, morphine rxn [facility] immediately listens to lung sounds and finds [...] pt's body. [facility] contacts [facility] and discusses the above. [facility] prescribes a 3-day prednisone taper and orders pt to stop taking the prescribed abx and to immediately call her PCP for an appointment. [facility] order 60mg PO for pt now. [facility] administers 20mg x3 tablets prednisone to pt PO. [facility] informs pt to contact her PCP and get and appointment ERIK. Pt and SOFTBALL WINDER are also advised to call 911 immediately if pt develops sob, wheezing, swelling of the lips, face, tongue or feels her throat is swelling, development of n/v/d, or abd pain, as these are all signs of serious allergic reaction. Both give their verbal understanding. MI ensures pt has no further questions and she is left in stable condition. MIH is clear. Report completed by JAYY Souza [id number]. [facility] Medication Orders: prednisone 20 mg tablet: Administered ..................... ..................... ..................... ..................... ..................... ..................... ............... [facility] Consulted: Heide Silva ..................... ..................... ..................... ..................... ..................... ..................... ............... Disposition: Fulfilled Heide Silva MD [address] [facility],[address] [facility], [place], [address], [employer] 08/26/2025 19:25:50 OBGyn Episode No OBEpisode recorded.
--- OUTSIDE RECORDS SUMMARY | 2025-08-31 01:08 | XMS_ITS | Continuity of Care Document ---
Author Name [facility], Medical Address [address] [place] [id number] Organization Unknown Address [address] [place] [address] Medications No known medications Problems No known problems
--- OUTSIDE RECORDS SUMMARY | 2025-08-31 01:08 | XMS_ITS | Data Portability ---
Author Organization [employer] [facility], [facility] Address [address] [place] [address] Care Team Providers Care Cardiology Consultant Name Role Phone DICKSON SAEZ Primary Care Provider HIM JOCELYN OTHER Assessment Encounter Date Assessment Date Assessment LastModified by Organization Details LastModified Time 08/26/2024 08/26/2024 As noted, we wer e called to see this patient regarding concerns of dysuriaEvaluation in the field was performed by my windows desktop engineer colleague, as noted above, I provided real-time [...] worsening serious symptoms, particularly flank pian, fever. [email or web address] Not available 08/26/2024 20:23:21 08/21/2025 08/21/2025 Impression: 65yo/f referred by SPRAY BLENDER for urinary symptoms and back pain. Patient with multiple chronic medical conditions as above, states for the past 2-3 days has been having worsening back pain symptoms, initially seemed to localize to one side, today describing bilateral back/flank pain. SPRAY BLENDER has noticed increased odor to urine, but [...] demonstrate a UTI or pyelonephritis. Patient and SPRAY BLENDER feel these symptoms are new in the last 2-3 days. I advised that for full evaluation I would recommend patient be transferred to [facility] ED for further evaluation and treatment including consideration of diagnostic imaging. Patient and SPRAY BLENDER are declining at this time, stating they would prefer to discuss with PCP first. Advised to seek care immediately with any acute worsening or change in symptoms which they understand. Not available 08/21/2025 13:25:07 08/26/2025 08/26/2025 I provided real -time medical direction via phone for this encounter and was available for additional phone-based assistance as needed. I have reviewed and agree with the Assessment and Plan as documented by the Punch Molder. Patient given the opportunity to ask questions. [...] facial, tongue swelling, SOB, CP, BARRY. Per windows desktop engineer on the scene, VSS, please see uploaded pictures Please read the windows desktop engineer note for their exam findings. Impression: Drug [...] mental status [email or web address] Not available 08/26/2025 17:06:03 08/28/2025 08/28/2025 As noted, we wer e called to see this patient regarding concerns of itchy rash. Evaluation in the field was performed by my windows desktop engineer colleague, as noted above, I provided real-time [...] . By the instead team and prescribed [id number] mg PO for a total of three [...] the emergency department. This was based on [email or web address] Not available 08/28/2025 11:20:37 Plan of Treatment Reminders Order Date Submit Date Provider Last Modified By Organization Details Last Modified Time Details Appointments None recorded. Lab urinalysis, dipstick 2024 [facility], [address] [place] [address], [id number] 16:08:37 urinalysis, dipstick 2024 025 [facility], [address] [place] [address], [id number] 14:29:02 culture, urine 2024 025 MAGDY [facility] (Centralized Electronic Ordering - All Locations), Patient Can Go To The Location Of Their Choice, [id number] 5 20:06:15 urinalysis, dipstick 2024 025 [facility], [address] [place] [address], [id number] 14:08:49 culture, urine 2023 024 MAGDY [facility] (Centralized Electronic Ordering - All Locations), Patient Can Go To The Location Of Their Choice, [id number] 4 10:06:26 urinalysis, dipstick 2023 024 [email or web address] [facility], [address] [place] [address], [id number] 4 20:23:24 Referral None recorded. Procedures None recorded. Surgeries None recorded. Imaging None recorded. Medication Orders prednisone 20 mg tablet 2024 025 [facility]armacy #2071, [address] [place], [address], 5 11:05:23 prednisone 20 mg tablet 2024 025 [email or web address] [facility] [address] [place], [address], 5 11:17:54 prednisone 20 mg tablet 2024 025 [email or web address] [facility] [address] [place] [address], [address], 5 16:54:41 prednisone 20 mg tablet 2024 025 [facility]/Pharmacy #2071, [address] [place], [address], 5 16:54:43 cefpodoxime 200 mg tablet 2023 024 [facility] #2071, [address] [place] [address], [address], 4 18:25:11 Patient TargetsNo targets recorded. Patient InstructionsNo instructions recorded. Reason for Referral None Reported. Results Created Date Observation Date Name Description Value Unit Range Abnormal Flag Note LastModifiedBy Organization Detail LastModifiedTime 08/26/20 24 08/29/2024 URINE CULTU RE,CO MPREH ENSIV E urine culture,comp rehensive Final report Not Available [facility] ([facility]) [address] [facility], [place], [address], 08/29/2024 10:06:37 08/26/2008/29/2024 URINE CULTU RE,CO MPREH ENSIV E result 1 COMMEN T No growt h in 36 - 48 hours . Not Available [facility] ([facility]) [address] [facility], [place], [address], 08/29/2024 10:06:37 08/21/2008/23/2025 URINE CULTU RE, UROLO GY SAKINA P urine culture, urology workup Final report Not Available [facility] ([facility]) [address] [facility], [place], [address], 08/23/2025 18:05:32 08/21/2008/23/2025 URINE CULTU RE, UROLO GY SAKINA P result 1 COMMEN T Mixed uroge nital lizeth 10,00 0-25, 000 colon y formi ng units per mL Not Available [facility] ([facility]) [address] [facility], [place], [address], 08/23/2025 18:05:32 08/21/2008/21/2025 ONE SPECI MEN IDENT [...] of colle ction . Not Available [facility] ([facility]) [address] [facility], [place], [address], 08/22/2025 20:06:16 Result Notes None recorded. Medical Equipment None Reported. Allergies Allergen ID Allergen Name Allergen Category Reaction Reaction Severity Criticality Documentation Date Start Date Code Code System Note Provider Name and Address Organization Details Recorded Time 23034 cefuroxim e Not available Not available Not available Not available 08/26/20254 RxNorm Not Available [facility] - production 09:44:16 [...] 5 99 % 99 % 102 /min 802960. 224 g 154.94 cm 98.1 [degF] 16 /min 134/79 mm[Hg] Not Available [facility] 5 12:52:55 Date Recorded Body weight Body temperature Respiratory rate Heart rate Oxygen saturation Oxygen saturation in Arterial blood by Pulse oximetry Body height Systolic blood pressure Provider Name and Address Organization Details Last Updated DateTime 5 979037. 224 g 98.3 [degF] 20 /min 87 /min 99 % 99 % 154.94 cm 118 mm[Hg] Not Available [facility] Nintu Oy 5 12:03:28 Date Recorded Heart rate Body temperature Oxygen saturation Oxygen saturation in Arterial blood by Pulse oximetry Respiratory rate Systolic And Diastolic Provider Name and Address Organization Details Last Updated DateTime 4 91 /min 98.8 [degF] 100 % 100 % 16 /min 128/88 mm[Hg] Not Available [facility] Nintu Oy 4 18:22:11 Date Recorded Body weight Body temperature Respiratory rate Body height Heart rate Oxygen saturation Oxygen saturation in Arterial blood by Pulse oximetry Systolic And Diastolic Provider Name and Address Organization Details Last Updated DateTime 5 152846. 224 g 98.3 [degF] 18 /min 154.94 cm 102 /min 96 % 96 % 130/83 mm[Hg] Not Available [employer] - production 16:42:05 Date Recorded Heart rate Body weight Body temperature Respiratory rate Body height Oxygen saturation Oxygen saturation in Arterial blood by Pulse oximetry Systolic And Diastolic Provider Name and Address Organization Details Last Updated DateTime 5 94 /min 14672.4 g 99.1 [degF] 14 /min 157.48 cm 98 % 98 % 132/84 mm[Hg] Not Available [employer] - production 11:00:59 Social History None recorded. Functional Status [...] Note 1126 Surya Acevedo MD Main - [facility] [address] [place] [phone] 02/18/2022 14:31:32 07/07/2022 13:35:00 Periorbital edema 40564855 H05.229 62yo woman evaluated for months of [...] 1140 Eden Coronado MD Main - [facility] [address] [place] [phone] 02/19/2022 09:58:40 07/05/2022 15:20:25 Dysuria 99286047 R30.9 Pt with hx prior UTIs (though [...] assessment and plan as documented by the windows desktop engineer. I provided real time medical direction for this encounter and was immediatel y available to provide additional phone based assistance as needed. Periorbital edema 752738 00 H05.229 Symptoms persist since last [facility] visit, continuing on allergy tx. urine dip today w/o protein to suggest nephrotic syndomre, recommend PCP f/up for allergy testing/tx . Urine dip also w/ trace ketones but no hx diabetes and normal PO intake, likely contaminat ion from adjacent test strip. F/up formal urinalysis 1495 Kenneth Castellon MD [place] [address] 0 03/10/2022 11:36:32 07/06/2022 14:33:02 Pruritic rash 77753970 L28.2 4072 Braydon Recio MD [place] [address] 0 07/18/2022 17:25:40 07/22/2022 13:31:39 Pruritic rash 90561135 L28.2 52872 Gerardo Lunsford MD [place] [address] 0 08/26/2024 18:22:09 08/26/2024 21:57:44 Acute urinary tract infection 504719285 N39.0 25948 John Ferrer MD [facility] [place] [phone] 0 08/21/2025 12:52:47 08/21/2025 14:31:53 Acute low back pain 420405922 M54.50 [id number] 29011 Francisco Javier Arroyo MD [place] [phone] 08/24/2025 12:03:23 08/24/2025 21:36:47 Flank pain 534974923 R10.A3 [id number] Patient seen a few days prior with flank pain and had advised to go to the ED. Recent Urine culture with mixed lizeth from 3 days prior; currently positive LE but neg nitrite. Given 08/08 flank pain for many days, advised to go to ED for imaging and patient agrees. 05261 Heide Silva MD [facility] ED Medical [address] [phone] 08/26/2025 16:41:55 08/27/2025 11:47:33 Pruritic rash 34700619 L28.2 [id number] Pruritic d isorder of skin 3061719206 L29.9 99122 63416 MARTA ZAMBRANO MD [facility] ED Medical [address] [phone] 08/28/2025 11:00:53 08/28/2025 19:00:03 Acute allergic reaction 825595178 T78.40XD [id number] Eruption c aused by drug 68985751 L27.0 [id number] Health Concerns Section Related Observation LastModified by Organization Detai ls LastModified Time None Recorded Concern Status LastModified by Organization Details LastModified Time None Recorded Advance Directives Directive None Recorded Payers Insurance Date Sequence Insurance Name Policy Number Policy Burnham Covered Member ID Burnham Member ID Guarantor Name 08/26/2024 1 [facility] - DOS PRIOR TO 2023 - DUAL ELIGIBLE (MEDICARE REPLACEMENT/ADV ANTAGE - HMO) Gracy Mead [id number] Gracy Mead 08/28/2025 1 [facility] - DOS ON OR AFTER 2023 - DUAL ELIGIBLE - [employer] AND ONE CARE (MEDICARE REPLACEMENT/ADV ANTAGE - HMO) Gracy Mead [id number] Gracy Mead Notes Date Note Type Note Provider Name and Address Organization Details Recorded Time 08/26/2024 text/html CRC Nurse Triage Notes (Neeru Daniels): Reason For Request: Pt's SPRAY BLENDER reporting UTI Chief Complaints: UTI/Pyelonephritis PMH: Heart Disease, COPD/Asthma, Severe Persistent Mental Illness (SPMI) Allergies: No Known Comments: PMH: COPD, early Dementia, heart disease, Reporting UTI symptoms, painful urination, some bloody urine yesterday, none today, Denies any other symptomsReports a UTI months ago, SPRAY BLENDER Rachana will be with member today. Will place referral for UTI w/u.verified info: Susana PRADO Punch Molder Organization Information for Pedro Ferrer Business Legal Name: [facility] Transportation Address: [address] [place] [address], [place] [address], Hand Roller Engraver: Henry MYERS No.: [id number] Punch Molder POC Test Results from Pedro Ferrer Urine Dipstick (18:19:27) Urine leukocytes: 3+ MARCOS Urine nitrites: + NIT Urine urobilinogen: - URO Urine protein: 2+ PRO Urine pH: 6.0 pH Urine blood: trace BLO Urine specific gravity: 1.010 SG Urine ketones: - KET Urine bilirubin: - JOSI Urine glucose: - GLU ..................... ..................... ..................... ..................... ..................... ..................... ............... Punch Molder Note From Pedro Ferrer: Miss Ulrich is [...] is sent to [facility]. I consultative the [facility] will send prescription to pharmacy. Patient's family states they will picker tender helper the prescription today. I educated Mrs. Ulrich [...] were given the opportunity to ask questions. [facility] Lab Orders: culture, urine: Performed ..................... ..................... ..................... ..................... ..................... ..................... ............... Disposition: Fulfilled Gerardo Lunsford MD [address] [place] [address],[address], [place], [phone], [employer] 08/26/2024 20:23:43 08/21/2025 text/html ROS as noted in the [facility] CRC Nurse Triage Notes (Nancy Wadsworth): [...] Mental Illness (SPMI) PMH Reviewed at 08/21/2025 - 12:09 Allergies Reviewed at 08/21/2025 - 12:09 Comments: 65 y.o female complains of Urinary Symptoms SPRAY BLENDER reporting symptoms. Foul smelling urine and new [...] signs of when to seek emergency care. Punch Molder Organization Information for Gonsales Kenneth Linn ISABELL Business Legal Name: [facility]. Address: [address] [place] [address], Hand Roller Engraver: Carlos Woody MD CLIA No.: [id number] Punch M[employer] POC Test Results from Kenneth Gonsales [employer] WHYTE Urine Dipstick (12:42:41) Urine leukocytes: 70+MARCOS Urine nitrites: -NIT Urine urobilinogen: 0.2URO Urine protein: 0.3PRO Urine pH: 6.0pH Urine blood: -BLO Urine specific gravity: 1.010SG Urine ketones: 15KET Urine bilirubin: -JOSI Urine glucose: -GLU Attachments uploaded as part of this test result can be found under Documents section. ..................... ..................... ..................... ..................... ..................... ..................... ............... Punch Molder Note From Kenneth Gonsales: [facility] makes pt contact a 65 yo F CC of uti like symptoms for two days. [facility] obtains vital signs. PT provides a clean catch urine sample. [facility] performs urine dipstick test and collects specimen for the lab. PT SPRAY BLENDER explains pt for the past two days [...] hospital with IV antibiotics. No known allergies. [facility] contacts [facility] and explains above mentioned. [facility] not convinced it is a UTI. [facility] advises pt be seen in the hospital for a full work up and imaging of the kidneys or reach out to her PCP regarding follow up. PT would rather reach out to PCP. [facility] explains red flags such as worsening pain, unable to hold/void urine, new onset fever, sob, chest pain, n/v. That pt should then seek a higher level of care such as 911. PT understands. Culture to be dropped off at [facility]. [facility] clear. [facility] Lab Orders: culture, urine: Performed urinalysis, dipstick: Performed ..................... ..................... ..................... ..................... ..................... ..................... ............... [facility] Consulted: John Ferrer ..................... ..................... ..................... ..................... ..................... ..................... ............... Disposition: Fulfilled John Ferrer MD [address] [facility],[address], [place], [address], [employer] 08/21/2025 13:49:25 08/24/2025 text/html ROS as noted in the [facility] CRC Nurse Triage Notes (Holly Hutchison): Reason For Request: Urinary symptoms Patient Reports: Painful urination; Frequent and increased urination with [...] bilateral, unable to void, painful urination -hematuria Chief Complaints: Urinary Symptoms PMH: Coronary Artery Disease, COPD/Asthma, Severe Persistent Mental Illness (SPMI) PMH Reviewed at 08/24/2025:12 Allergies Reviewed at 08/24/2025:12 Comments: Called member to review lab results of urine culture. Member still complaining of painful urination and flank pain. Pain has gotten worse over the last 3 days. Member called PCP and left a message but did not hear back from them. CRC RN suggested a revisit to recheck a UA and UC since symptoms are getting worse and member was not started on abx at the last visit. SPRAY BLENDER will be with member today. Member reported that she was running a fever yesterday but does not know how high it was. Feeling chills. 65 y.o female complains of Urinary Symptoms I provided information on the mobile health provider response time and advised the patient and/or caregiver to monitor reported signs and symptoms. I discussed the warning signs of when to seek emergency care. Simran Hutchison RN Punch Molder Organization Information for Libby Eduardoquiana [email or web address] Business Legal Name: [facility]. Address: [address] [place] [address], [place] Hand Roller Engraver: Carlos MYERS No.: [id number] Punch Molder POC Test Results from Mauricio Souza - ALS Urine Dipstick (12:00:18) Urine leukocytes: 70LEU Urine nitrites: -NIT Urine urobilinogen: 0.2URO Urine protein: 15PRO Urine pH: 6.0pH Urine blood: -BLO Urine specific gravity: 1.010SG Urine ketones: -KET Urine bilirubin: -JOSI Urine glucose: -GLU ..................... ..................... ..................... ..................... ..................... ..................... ............... Punch Molder Note From Mauricio Souza: [facility] responds to the listed address for a 65 yof w/ a c/c of UTI. Upon arrival on scene, pt is found seated in her recliner in the living area of her small and well-kept apartment. She is reclined w/ her feet up, alert, and tracks [facility] on approach. Her face is flushed, but she is otherwise generally well-appearing. No facial droop or one sided weakness are observed, no stridor sonorous respirations, or increased WOB are noted, and she is not bleeding anywhere. SPRAY BLENDER is on scene to help w/ translation, as pt is Kiswahili speaking only. Pt received a call from [facility] this morning informing her she was positive for UTI. Pt was seen by [facility] on of last week and UA/UC [...] to be administered IV abx in the past. Lab results did not include sensitivity or type of bacteria. Pt was told to have another visit from [facility] today for a retest of UA [...] reported. Ddx: UTI, kidney infection, kidney stone [facility] obtains vital signs and pt is assessed. Pt is normotensive, afebrile, and not hypoxic. Head is atraumatic and normocephalic. Sclera are clear and extraocular movements are intact. Neck is supple and trachea is midline. CVA tenderness and flank pain are present, mostly on L side. Chest rises and falls w/ respirations and lung sounds are clear to auscultation. Heart beat is strong and regular w/ no clicks or rubs noted. Abdomen is soft and nontender, CMS is intact and no peripheral edema is noted. Pt voided her bladder just prior to [facility] arrival, but caught the urine in a hat and left it for [facility] to test. [facility] performs UA and results are not convincing of UTI. [facility] contacts [facility] and discusses the above and [facility] recommends imaging of the kidneys due to pt's 10/10 CVA and flank tenderness. Pt agrees and chooses to be transported to [facility]. Pt is transported to [facility] by Zulema. [facility] is clear. Report completed by JAYY Souza [id number]. ..................... ..................... ..................... ..................... ..................... ..................... ............... [facility] Consulted: David Arryoo ..................... ..................... ..................... ..................... ..................... ..................... ............... Disposition: Fulfilled Francisco Javier Arroyo MD [address] [place] [address],[address], [place], [address], [employer] 08/24/2025 14:24:05 08/26/2025 text/html CRC Nurse Triage Notes (Nancy [...] PMH Reviewed at 08/26/2025:42 Allergies Reviewed at 08/26/2025 15:42 Comments: 65 y.o female complains of Rash SPRAY BLENDER reporting rash starting yesterday night. Rash started [...] during ER visit and was normal per SPRAY BLENDER. I provided information on the mobile health provider response time and advised the patient and/or caregiver to monitor reported signs and symptoms. I discussed the warning signs of when to seek emergency care. ..................... ..................... ..................... ..................... ..................... ..................... ............... Punch Molder Note From Mauricio Souza: SC[facility] responds to the listed address for a 65 yof w/ a c/c of rash. Upon arrival on scene, pt is found sitting in a recliner in her living room. She is squirming in her chair and scratching her arms. She is alert and makes eye contact w/ MIH. Her face is flushed, but she is otherwise well-appearing. No increased WOB, stridor, pr sonorous respirations are present. She has no facial droop or one-sided weakness and she is not bleeding anywhere. SPRAY BLENDER is on scene to assist w/ translation and Hx. This [facility] provider sent pt to the ER two days ago to r/o kidney infection. SPRAY BLENDER and pt tell MIH she was placed [...] the infection was coming from, according to SPRAY BLENDER. Pt was also given and has taken Morphine, 15mg Q6H. Ddx: abx reaction, morphine rxn [facility] immediately listens to lung sounds and finds [...] or welts are noted on pt's body. [facility] contacts [facility] and discusses the above. [facility] prescribes a 3-day prednisone taper and orders pt to stop taking the prescribed abx and to immediately call her PCP for an appointment. [facility] order 60mg PO for pt now. [facility] administers 20mg x3 tablets prednisone to pt PO. [facility] informs pt to contact her PCP and get and appointment ERIK. Pt and SPRAY BLENDER are also advised to call 911 immediately if pt develops sob, wheezing, swelling of the lips, face, tongue or feels her throat is swelling, development of n/v/d, or abd pain, as these are all signs of serious allergic reaction. Both give their verbal understanding. [facility] ensures pt has no further questions and she is left in stable condition. [facility] is clear. Report completed by JAYY Souza [id number]. [facility] Medication Orders: prednisone 20 mg tablet: Administered ..................... ..................... ..................... ..................... ..................... ..................... ............... [facility] Consulted: Heide Silva ..................... ..................... ..................... ..................... ..................... ..................... ............... Disposition: Fulfilled Heide Silva MD [address] [place] [address],[address], [place], [address], [employer] 08/26/2025 19:25:50 08/28/2025 text/html ROS as noted in the [facility] CRC Nurse Triage Notes (Nancy Wadsworth): [...] PMH Reviewed at 08/28/2025:44 Allergies Reviewed at 08/28/2025:44 Comments: 65 y.o female complains of Rash Itchiness/rash x3 days. Has been taking prednisone for three days w/ no effect. No creams prescribed. SPRAY BLENDER using hydrocortisone and Benadryl cream with no [...] signs of when to seek emergency care. Punch Molder Organization Information for Bernard [employer] Legal Name: [facility] Transportation Address: [address] [place] [address], [place] [address], Hand Roller Engraver: Henry MYERS No.: [id number] Punch Molder POC Test Results from Bernard Porter Urine Dipstick (10:55:41) Urine leukocytes: -MARCOS Urine nitrites: -NIT Urine urobilinogen: 0.2URO Urine protein: -PRO Urine pH: 5.0pH Urine blood: -BLO Urine specific gravity: 1.005SG Urine ketones: -KET Urine bilirubin: -JOSI Urine glucose: -GLU ..................... ..................... ..................... ..................... ..................... ..................... ............... [facility] [employer]older Note From Bernard Porter: Patient alert and [...] next several days. Family with patient throughout. [facility] Lab Orders: urinalysis, dipstick: Performed [facility] Medication Orders: prednisone 20 mg tablet: Performed ..................... ..................... ..................... ..................... ..................... ..................... ............... [facility] Consulted: Marta Zambrano ..................... ..................... ..................... ..................... ..................... ..................... ............... Disposition: Fulfilled MARTA ZAMBRANO MD [address] [place] [address],[address], [place], [address], [employer] [facility] 08/28/2025 16:03:46 OBGyn Episode No OBEpisode recorded.
--- OUTSIDE RECORDS SUMMARY | 2025-08-31 01:08 | XMS_ITS | Continuity of Care Document ---
Author Name instED, Medical Address [address] [place] [id number] Organization Unknown Address [address] [place] [id number] Medications No known medications Problems No known problems
--- OUTSIDE RECORDS SUMMARY | 2025-08-31 01:08 | XMS_ITS | Encounter Summary ---
Author Organization [facility] Address [address] [place] [address] Encounters * CPT with Medical [facility] at [facility] on 2025-08-28 { reasonForRequest : last seen 08/26, 08/24, 08/21\nPCA requesting revisit due to itchiness still being around her body , patientReports : Rash , denies&qu ot;:[ Orellana Flash, circumferential orellana , Orellana reported with black tissue to the area , Open skin area after a fall with uncontrolled bleeding , Abscess/infect ion with streaking noted, presence of fever or without ], chiefComplaints : Rash , pmh : Coronary Artery Disease, COPD/Asthma, Severe Persistent Mental Illness (SPMI) , allergies : Cefuroxime , otherAllergies : ,&q uot;painAssessment : , visitOutcome : , additionalComments : 65 y.o female complains of Rash\n\nItchiness/rash x3 days. Has been taking prednisone for three days w/ no effect. No creams prescribed. [employer] using hydrocortisone and Benadryl cream with no effect. Some open areas due to scratching. Reports home O2 use PRN - using today due to mild shortness of breath. Albuterol inhaler as needed. On eliquis. \n\nI provided information on the mobile health provider response time and advised the patient and/or caregiver to monitor reported signs and symptoms. I discussed the warning signs of when to seek emergency care. } Patient alert and oriented complains of burning itching irritation on her skin, forehead, chest hands. Patient reports symptoms started 24 hours after taking cefuroxime for dysuria. Patient has used Benadryl, prednisone, hydrocortisone, and Benadryl creams with little to no relief. Patient reports feeling itchy inside her body and in the back of her throat. Patient also complains of diaphoresis, a ???hot??? feeling on her head and face. Patient [...] next several days. Family with patient throughout. PO_MEDICATION Written by Medical instED on 2025-08-28
[2025-08-31 01:12] LABS: Alanine Aminotransferase 18 U/L (0-31); Albumin Level 3.5 g/dL (3.5-5.0); Alkaline Phosphatase 97 U/L (39-117); Anion Gap 12 (12-20); Aspartate Amino Transferase 24 U/L (5-31); Blood Urea Nitrogen 13 mg/dL (9-16); Calcium 8.2 mg/dL (8.4-10.2); Carbon Dioxide 26 mmol/L (22-29); Chloride 106 mmol/L (96-108); Creatinine Clr Calc Pharmacy 71.6; Estimated Glomerular Filt Rate > 60; Potassium 3.6 mmol/L (3.3-5.1); Sodium 140 mmol/L (135-145); Total Protein 6.1 g/dL (6.5-8.0)
--- NOTE | 2025-08-31 01:24 | ED.GENADULT ---
HPI - General Adult General Chief complaint: Abdominal Pain Stated complaint: Abd Pain Time Seen by Provider: 08/31/25 01:12 EDT Source: patient Mode of arrival: ambulatory Limitations: language barrier History of Present Illness ED Provider: Dr. Sexton HPI narrative: 65-year-old female history of obesity, osteoarthritis, GERD, hypothyroidism, cardiomyopathy, dyslipidemia, ROB presented hospital today for evaluation of left-sided flank pain. Patient stated radiates to her bladder area. Recently treated for UTI however unable to tolerate the cephalosporin antibiotic. Patient stated that she was developing a rash. Does complain of some dysuria. Denies any trauma Related Data Home Medications ?Medication ?Instructions ?Recorded ?Confirmed oxygen-air delivery systems ##1 08/24/20 02/17/25 topiramate 100 mg tablet 100 mg PO BID 07/13/22 02/17/25 bupropion HCl 300 mg 24 hr tablet, 300 mg PO DAILY 08/23/23 02/17/25 extended release clonazepam 1 mg tablet 1 mg PO DAILY Anxiety 01/27/24 02/17/25 gabapentin 400 mg capsule 400 mg PO TID 03/26/24 02/17/25 Previous Rx's ?Medication ?Instructions ?Recorded shower seat #1 ea 11/23/20 miscellaneous medical supply #1 ea 12/22/20 electric wheelchair #1 ea 04/30/22 blood pressure kit-extra large #1 ea 08/29/22 wheeled table with drawers #1 ea 12/05/22 adult diapers pull-ups #240 ea 02/13/23 nebulizers (AeroEclipse II #1 ea 05/15/23 Nebulizer) carboxymethylcellulose sodium 0.5 1 drp ophthalmic (eye) BID PRN dry 10/05/23 % eye drops in a dropperette eye(s) 30 days #30 ea cromolyn 4 % eye drops 1 drp ophthalmic (eye) 6XD 30 days 12/18/23 #10 mL lidocaine HCl 4 % topical ointment See Rx Instructions topical 01/31/24 (AsperFlex (lidocaine HCl)) .COMPLEX herpes zoster #100 grams cetirizine 10 mg tablet 10 mg PO DAILY PRN allergy 03/09/24 symptoms 90 days #90 tabs disposable gloves #200 ea 06/06/24 flushable wipes #240 ea 06/06/24 underpads (Bed Underpads) #100 ea 07/24/24 recliner with power buttons #1 ea 07/31/24 POWER LIFT RECLINER #1 ea 09/10/24 docusate sodium 100 mg capsule 100 mg PO BID #20 caps 09/22/24 (Colace) rosuvastatin 10 mg tablet 10 mg PO DAILY #90 tabs 09/30/24 chair, wheel (Wheel chair) #1 ea 10/03/24 commode (bedside commode) #1 ea 10/03/24 lidocaine 5 % topical patch 1 patch topical DAILY hip pain 10/03/24 (Lidoderm) #30 ea diclofenac sodium 1 % topical gel 4 g topical QID #100 grams 10/09/24 acetaminophen 325 mg tablet 325 mg PO QID PRN Pain 30 days 11/12/24 #120 tabs albuterol sulfate 90 mcg/actuation 2 puff inhalation Q4H PRN Wheezing 11/12/24 aerosol inhaler #8.5 grams wheelchair #1 ea 11/27/24 esomeprazole magnesium 40 mg 40 mg PO DAILY #90 caps 12/30/24 capsule,delayed release cyclobenzaprine 5 mg tablet 5 mg PO TID PRN muscle spasm 3 02/19/25 days #9 tabs albuterol sulfate 2.5 mg/3 mL 2.5 mg (3 mL) inhalation Q6H PRN 03/18/25 (0.083 %) solution for nebulization for wheezing #150 mL fluticasone fur. 200 mcg-umeclid 1 inh inhalation DAILY 30 days #60 06/20/25 62.5 mcg-vilant 25 mcg ea inhalat.powder (Trelegy Ellipta) apixaban 5 mg (74 tabs) tablets in 5 mg PO BID #74 ea 06/25/25 a dose pack (Eliquis DVT-PE Treat 30D Start) chlorhexidine gluconate 0.12 % 15 ml buccal DAILY 30 days #450 mL 07/10/25 mouthwash lactulose 10 gram/15 mL oral 10 g (15 mL) PO BEDTIME PRN 07/10/25 solution constipation 30 days #237 mL apixaban 5 mg tablet (Eliquis) 5 mg PO BID 30 days #60 tabs 07/11/25 cromolyn 4 % eye drops 1 drp ophthalmic (eye) QID 30 days 07/15/25 #10 mL famotidine 40 mg tablet (Pepcid) 40 mg PO BEDTIME #30 tabs 07/15/25 levothyroxine 50 mcg tablet 50 mcg PO DAILY@0630 #90 tabs 07/15/25 lidocaine 5 % topical patch 1 patch topical DAILY #15 ea 07/15/25 amitriptyline 100 mg tablet 100 mg PO BEDTIME 90 days #90 tabs 07/22/25 zolpidem 10 mg tablet 10 mg PO BEDTIME PRN insomnia 30 07/22/25 days #30 tabs rollatoe walker with a seat #1 ea 08/15/25 cholecalciferol (vitamin D3) 25 25 mcg PO DAILY #30 caps 08/17/25 mcg (1,000 unit) capsule (Vitamin D3) acetaminophen 500 mg tablet 500 mg PO Q6H PRN pain #30 tabs 08/24/25 (Tylenol Extra Strength) cefuroxime axetil 250 mg tablet 250 mg PO BID 7 days #14 tabs 08/24/25 morphine 15 mg immediate release 15 mg PO Q6H PRN severe pain 08/24/25 tablet (scale score 7-10) #5 tabs hydrocortisone 1 % topical cream 1 appl topical BID PRN skin 08/29/25 (Anti-Itch (hydrocortisone)) irritation 2 weeks #28.4 grams Allergies Allergy/AdvReac Type Severity Reaction Status Date / Time No Known Allergies Allergy Verified 08/31/25 00:46 Review of Systems Review of Systems: Pertinent review of systems as mentioned in HPI. All other system otherwise negative. [facility] Past Medical History [facility] Narrative: Medical history as mentioned in HPI Medical History Pre-op evaluation Polyarticular osteoarthritis Avascular necrosis of bones of both hips Dysuria Morbid obesity Avascular necrosis Physical exam Well woman exam RSV (acute bronchiolitis due to respiratory syncytial virus) Chest pain Palpitations URI (upper respiratory infection) Snoring Encounter for screening for malignant neoplasm of colon Lumbar pain Urinary incontinence Low blood pressure Allergic reaction UTI (urinary tract infection) Palpitations Morbid obesity with BMI of 40.0-44.9, adult Epigastric abdominal pain Oxygen dependent Hypothyroidism Hypersomnia ILD (interstitial lung disease) ROB on CPAP History of ESBL E. coli infection Obstructive sleep apnea Moderate recurrent major depression Urinary retention Acute and chronic respiratory failure with hypoxia COVID-19 Lupus (systemic lupus erythematosus) Polyarthralgia Neck mass Eosinophilia Severe asthma Asthma-COPD overlap syndrome Trigger finger of right hand Recurrent UTI Tachycardia Obesity Lumbar degenerative disc disease GERD (gastroesophageal reflux disease) Hemangioma Hypovitaminosis D Bipolar 1 disorder Depression with anxiety Insomnia COPD (chronic obstructive pulmonary disease) Surgical History Hx of hand surgery Hx of cardiac catheterization History of esophagogastroduodenoscopy (EGD) History of cystocele History of colonoscopy History of shoulder surgery History of carpal tunnel release History of hysterectomy History of section History of tonsillectomy Family History Family History Father Prostate cancer Mother No problems noted. Sister Nasopharyngeal cancer Social History Social History Household Members: None Household Members Other:: 1 Housing: Apartment Do you presently have visiting nurse or other home services: Yes (Has RAIL ENGINEER) Alcohol intake: never Comment: sleeping Patient Tobacco Use Status: Former Tobacco user Years Smoked: 14 +/- Smoked in Last 30 Days: No e-Cigarette/Vaping Use: Never Used Second Hand Smoke Exposure: No Use of substances other than those prescribed or required for medical reasons: No Advance Directives: Yes Advance Directives on File: Yes Advance Directives Date on File: 01/08/21 Do you have a plan to hurt others: No Plan service: No Current occupational status: disabled Current occupation: right and left handed--- 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 Cognitive needs: Yes (walker ) Hearing needs: No Vision needs: Yes Physical Exam ED Exam Exam: General: Appears to be in pain, obese Head: Normacephalic, atraumatic ENT: oral mucosa moist, neck supple, no tracheal deviation Cardiovascular: regular rate, regular rhythm, no murmurs, rubbing, gallops Respiratory: CTAB, no wheeze, rales, rhonchi Gastrointestinal: Soft, non distended, I have side flank pain on palpation Neurological: Awake and alert, no facial droop noted Skin: Warm and dry Psychiatric: Appropriate mood and thoughts Vital Signs: Vital Signs - 24 hr 08/31/25 01:31 EDT 08/31/25 01:32 EST 08/31/25 02:21 Temperature 97.8 F 97.9 F Pulse Rate 93 87 Respiratory Rate 18 20 20 Blood Pressure 119/78 141/72 H Pulse Oximetry 95 100 Oxygen Delivery Method Room Air Room Air 08/31/25 04:17 08/31/25 05:32 08/31/25 07:13 Temperature 97.6 F Pulse Rate 89 94 Respiratory Rate 20 12 14 Blood Pressure 133/87 134/88 Pulse Oximetry 99 97 Oxygen Delivery Method Room Air Room Air 08/31/25 09:41 Temperature Pulse Rate 90 Respiratory Rate 16 Blood Pressure 135/70 Pulse Oximetry 98 Oxygen Delivery Method Room Air BMI result Body Mass Index 46.3 Medications Administered Discontinued Medications Generic Name Dose Route Start Last Admin Trade Name Freq PRN Reason Stop Dose Admin Acetaminophen 975 mg 08/31/25 03:20 08/31/25 03:57 Acetaminophen 325 Mg Tablet PO 08/31/25 03:21 975 mg ONCE ONE Administration Hydromorphone HCl 0.25 mg 08/31/25 05:16 08/31/25 05:32 Hydromorphone Hcl 0.5 Mg/0.5 Ml Syringe IVPUSH 08/31/25 05:17 0.25 mg ONCE ONE Administration Protocol Sodium Chloride 500 mls @ 500 mls/hr 08/31/25 01:30 EST 08/31/25 03:58 Ns IV 08/31/25 02:29 Infused .Q1H YOBANI Infusion Ciprofloxacin 400 mg in 200 mls @ 200 mls/hr 08/31/25 01:24 EST 08/31/25 02:30 Cipro IV 08/31/25 02:23 Infused ONCE ONE Infusion Iohexol 85 ml 08/31/25 01:52 EST 08/31/25 01:53 EST Iohexol 350 Mg/Ml 100 Ml Infus..Btl IV 08/31/25 01:53 EST 85 ml ONCE ONE Administration Iohexol 75 ml 08/31/25 05:57 08/31/25 06:01 Iohexol 350 Mg/Ml 100 Ml Infus..Btl IV 08/31/25 05:58 75 ml ONCE ONE Administration Morphine Sulfate 4 mg 08/31/25 01:22 EST 08/31/25 01:32 EST Morphine Sulfate 4 Mg/Ml Cartridge IVPUSH 08/31/25 01:23 EST 4 mg ONCE ONE Administration Protocol Nitrofurantoin Macrocrystals 100 mg 08/31/25 02:44 08/31/25 03:57 Nitrofurantoin Monohyd/M-Cryst 100 Mg Capsule PO 08/31/25 02:45 100 mg ONCE ONE Administration Phenazopyridine HCl 200 mg 08/31/25 02:45 08/31/25 03:57 Phenazopyridine Hcl 200 Mg Tablet PO 08/31/25 02:46 200 mg ONCE ONE Administration Medical Decision Making Medical Decision Making [facility] Narrative: 65-year-old female with multiple medical problems presented hospital today for left flank pain. I did attempt to give patient IV ciprofloxacin for UTI coverage however patient stated that her throat felt funny. Therefore this infusion was stopped. I did give the patient a dose of p.o. Macrobid. The patient was sent home on cefuroxime for UTI coverage however stopped because of allergic reaction.. CT imaging was unremarkable. Patient has received some IV morphine, IV Dilaudid for her pain. P.o. Tylenol was given. Patient's lab work is unremarkable. UA shows trace leuk esterase. Troponin is negative. Patient has persistent left flank pain. Given the persistence of her pain we will obtain a CTA of the torso to rule out aortic dissection. Patient will be signed out to oncoming provider pending aortic dissection study. Patient's white count is normal. Hemoglobin is 11.4. Electrolytes are normal. LFTs are normal. Troponin is negative. Urine showed no signs of infection. CT angio of the chest abdomen pelvis was done. I reviewed radiology's interpretation also looked at the films myself I did not see any evidence of dissection radiology's showed the same as grossly normal chest abdomen pelvis. Will discharge patient home. Close follow-up on an outpatient basis as the pain has been continuing. In stable condition. Differential Diagnosis Differential Diagnoses: The differential diagnosis associated with the presentation includes Pancreatitis, UTI, pyelonephritis, aortic dissection Lab Data [facility] Lab Attestation statement: I reviewed the patient's lab results. 08/31/25 01:39 EST 08/31/25 01:39 EST Labs: Lab Results 08/31/25 08/31/25 08/31/25 Range/Units 01:39 EST 02:22 02:30 WBC 7.3 (4.8-10.8) X10*3/uL RBC 4.06 L (4.20-5.50) X10*6/uL Hgb 11.4 L (12.0-16.0) g/dl Hct 36.4 L (37.0-47.0) % MCV 89.7 (80.0-98.0) fL MCH 28.1 (27.0-33.0) pg MCHC 31.3 (31.0-35.0) g/dl RDW 15.2 (11.0-16.0) % Plt Count 306 (160-400) X10*3/uL MPV 9.4 (9.4-12.3) fL Immature Gran % (Auto) 2.1 H (0.0-0.4) % Neut % (Auto) 58.1 (45-73) % Lymph % (Auto) 31.4 (20-40) % [place] % (Auto) 8.1 (2-11) % Eos % (Auto) 0.0 (0-4) % Baso % (Auto) 0.3 (0-2) % Lymph # (Auto) 2.3 (1.2-4.9) X10*3/uL [place] # (Auto) 0.6 (0.1-1.2) X10*3/uL Eos # (Auto) 0.0 (0.0-0.4) X10*3/uL Baso # (Auto) 0.0 (0.0-0.2) X10*3/uL Abs Immat Gran (auto) 0.15 H (0.00-0.03) X10*3/uL Absolute Neuts (auto) 4.2 (2.0-8.3) x10*3/uL Absolute Nucleated RBC 0.000 (0.0-0.012) X10*3/uL Nucleated RBC % (auto) 0.0 (0.0-0.2) /100WBC Sodium 140 (135-145) mmol/L Potassium 3.6 (3.3-5.1) mmol/L Chloride 106 (96-108) mmol/L Carbon Dioxide 26 (22-29) mmol/L Anion Gap 12 (12-20) BUN 13 (9-16) mg/dL Creatinine 0.88 (0.5-1.4) mg/dL Estim Creat Clear Calc 71.6 Estimated GFR > 60 Random Glucose 143 H (60-115) mg/dL Calcium 8.2 L D (8.4-10.2) mg/dL Total Bilirubin 0.1 (0.0-1.0) mg/dL AST 24 (5-31) U/L ALT 18 (0-31) U/L Alkaline Phosphatase 97 (39-117) U/L Troponin I High Sens < 2.7 (<3.5-17.0) ng/L Total Protein 6.1 L (6.5-8.0) g/dL Albumin 3.5 (3.5-5.0) g/dL Urine Color Yellow Urine Appearance Clear Urine pH 8.0 (5.0-9.0) Ur Specific Hematite 1.015 (1.005-1.025) Urine Protein Negative (Neg-Trace) mg/dL Urine Glucose (UA) Negative (Negative) mg/dL Urine Ketones Negative (Negative) mg/dL Urine Blood Negative (Negative) Urine Nitrite Negative (Negative) Ur Leukocyte Esterase Trace H (Negative) Urine RBC 0-2 (0-2) /HPF Urine WBC 0-5 (0-5) /HPF Ur Squamous Epith Cells 0-2 (0-2) /HPF Urine Bacteria None Seen (None Seen) Hyaline Casts 0-2 (0-2) /LPF Independent Interpretation I performed an independent interpretation of an: CT Scan Radiology Impression Discussion of test interpretation with radiology: I have reviewed the radiologist's reading. Discharge Plan Discharge Clinical Impression: Acute left flank pain Patient Disposition: Home, Self-Care Instructions: Abdominal Pain (ED) Prescriptions: No Action (DME) shower seat See Rx Instructions .Route .MEDSUPPLY Qty: 1 0RF Rx Instructions: As directed (DME) miscellaneous medical supply Misc See Rx Instructions .ROUTE .MEDSUPPLY Qty: 1 0RF Rx Instructions: OVERBED TABLE (DME) electric wheelchair See Rx Instructions .Route .MEDSUPPLY Qty: 1 0RF Rx Instructions: As directed (DME) wheeled table with drawers See Rx Instructions .Route .MEDSUPPLY Qty: 1 0RF Rx Instructions: As directed (DME) adult diapers pull-ups 2Xlarge See Rx Instructions .Route .MEDSUPPLY Qty: 240 6RF Rx Instructions: As directed (DME) nebulizers [AeroEclipse II Nebulizer] Misc See Rx Instructions .Route Qty: 1 0RF Rx Instructions: As directed cromolyn 4 % drops 1 drp ophthalmic (eye) 6XD 30 Days Qty: 10 1RF cetirizine 10 mg tablet 10 mg PO DAILY PRN (Reason: allergy symptoms) 90 Days Qty: 90 1RF (DME) flushable wipes See Rx Instructions .Route .MEDSUPPLY Qty: 240 6RF Rx Instructions: As directed (DME) disposable gloves Misc See Rx Instructions .Route Qty: 200 6RF Rx Instructions: As directed (DME) underpads [Bed Underpads] Pad See Rx Instructions .Route Qty: 100 6RF Rx Instructions: As directed (DME) recliner with power buttons See Rx Instructions .Route .MEDSUPPLY Qty: 1 0RF Rx Instructions: As directed (DME) POWER LIFT RECLINER See Rx Instructions .Route .MEDSUPPLY Qty: 1 0RF Rx Instructions: As directed rosuvastatin 10 mg tablet 10 mg PO DAILY Qty: 90 3RF (DME) bedside commode Kit See Rx Instructions .Route Qty: 1 0RF Rx Instructions: As directed (DME) Wheel chair Kit See Rx Instructions .Route Qty: 1 0RF Rx Instructions: As directed (DME) wheelchair See Rx Instructions .Route .MEDSUPPLY Qty: 1 0RF Rx Instructions: As directed esomeprazole magnesium 40 mg capsule,delayed release(DR/EC) 40 mg PO DAILY Qty: 90 2RF albuterol sulfate 2.5 mg /3 mL (0.083 %) solution for nebulization 2.5 mg inhalation Q6H PRN (Reason: for wheezing) Qty: 150 11RF Trelegy Ellipta 200-62.5-25 mcg blister with device 1 inh inhalation DAILY 30 Days Qty: 60 12RF lactulose 10 gram/15 mL solution 10 g PO BEDTIME PRN (Reason: constipation) 30 Days Qty: 237 2RF chlorhexidine gluconate 0.12 % mouthwash 15 ml buccal DAILY 30 Days Qty: 450 0RF amitriptyline 100 mg tablet 100 mg PO BEDTIME 90 Days Qty: 90 1RF zolpidem 10 mg tablet 10 mg PO BEDTIME PRN (Reason: insomnia) 30 Days Qty: 30 0RF (DME) rollatoe walker with a seat See Rx Instructions .Route .MEDSUPPLY Qty: 1 0RF Rx Instructions: As directed cholecalciferol (vitamin D3) [Vitamin D3] 25 mcg (1,000 unit) capsule 25 mcg PO DAILY Qty: 30 1RF hydrocortisone [Anti-Itch (HC)] 1 % cream 1 appl topical BID PRN (Reason: skin irritation) 14 Days Qty: 28.4 0RF clonazepam 1 mg tablet 1 mg PO DAILY docusate sodium [Colace] 100 mg capsule 100 mg PO BID Qty: 20 0RF cyclobenzaprine 5 mg tablet 5 mg PO TID PRN (Reason: muscle spasm) 3 Days Qty: 9 0RF Eliquis DVT-PE Treat 30D Start 5 mg (74 tabs) tablets,dose pack 5 mg PO BID Qty: 74 0RF morphine 15 mg tablet 15 mg PO Q6H PRN (Reason: severe pain (scale score 7-10)) Qty: 5 0RF Rx Instructions: Partial Fill upon patient request. cefuroxime axetil 250 mg tablet 250 mg PO BID 7 Days Qty: 14 0RF acetaminophen [Tylenol Extra Strength] 500 mg tablet 500 mg PO Q6H PRN (Reason: pain) Qty: 30 0RF (DME) oxygen-air delivery systems Device See Rx Instructions .ROUTE .MEDSUPPLY Qty: 1 Rx Instructions: As directed carboxymethylcellulose sodium 0.5 % dropperette 1 drp ophthalmic (eye) BID PRN (Reason: dry eye(s)) 30 Days Qty: 30 2RF AsperFlex (lidocaine HCl) 4 % ointment See Rx Instructions topical .COMPLEX Qty: 100 0RF Rx Instructions: use 1-2 inch ointment and apply up to 3 times daily on L shoulder topically; topiramate 100 mg tablet 100 mg PO BID (DME) blood pressure kit-extra large Kit See Rx Instructions .Route Qty: 1 0RF Rx Instructions: As directed bupropion HCl 300 mg tablet extended release 24 hr 300 mg PO DAILY gabapentin 400 mg capsule 400 mg PO TID Eliquis 5 mg tablet 5 mg PO BID 30 Days Qty: 60 11RF acetaminophen 325 mg tablet 325 mg PO QID PRN (Reason: Pain) 30 Days Qty: 120 2RF albuterol sulfate 90 mcg/actuation HFA aerosol inhaler 2 puff inhalation Q4H PRN (Reason: Wheezing) Qty: 8.5 11RF diclofenac sodium 1 % gel 4 g topical QID Qty: 100 4RF Rx Instructions: apply to knees and hands 4 times a day lidocaine [Lidoderm] 5 % adhesive patch,medicated 1 patch topical DAILY Qty: 30 0RF Rx Instructions: leave on most painful area for up to 12 hrs cromolyn 4 % drops 1 drp ophthalmic (eye) QID 30 Days Qty: 10 0RF famotidine [Pepcid] 40 mg tablet 40 mg PO BEDTIME Qty: 30 11RF levothyroxine 50 mcg tablet 50 mcg PO DAILY@0630 Qty: 90 0RF lidocaine 5 % adhesive patch,medicated 1 patch topical DAILY Qty: 15 0RF Rx Instructions: leave on most painful area for up to 12 hrs Referrals: Farideh Starr MD [Primary Care Provider, Internal Medicine] - 09/02/25 Print Language: Latvian
[2025-08-31 01:42] LABS: MANUAL DIFF FLAG NO
[2025-08-31 01:45] LABS: Hematocrit 36.4 % (37.0-47.0); Hemoglobin 11.4 g/dl (12.0-16.0); Imm Gran Abs Auto 0.15 X10*3/uL (0.00-0.03); Imm Gran Pct Auto 2.1 % (0.0-0.4); Lymphocytes Absolute Auto 2.3 X10*3/uL (1.2-4.9); Mean Corpuscular HGB Conc 31.3 g/dl (31.0-35.0); Mean Corpuscular Hemoglobin 28.1 pg (27.0-33.0); Mean Corpuscular Volume 89.7 fL (80.0-98.0); NRBC Abs Auto 0.000 X10*3/uL (0.0-0.012); NRBC Pct Auto 0.0 /100WBC (0.0-0.2); Platelet Count 306 X10*3/uL (160-400); Red Blood Count 4.06 X10*6/uL (4.20-5.50); White Blood Count 7.3 X10*3/uL (4.8-10.8)
--- NOTE | 2025-08-31 01:52 | PC.NURSE ---
delayed administration in ABX as it was not in ED pyxis; pharmacist in charge owner was able to retrieve it on another floor for this RN. This RN currently waiting for pt to come back from CT.
[2025-08-31] MEDS: iohexoL 350 MG/ML 100 ML INFUS..BTL 85 ML IV (01:53)
--- NOTE | 2025-08-31 02:24 | ECG_ITS ---
Test Reason : CP Blood Pressure : */* mmHG Vent. Rate : 85 BPM Atrial Rate : 85 BPM P-R Int : 142 ms QRS Dur : 88 ms QT Int : 372 ms P-R-T Axes : 28 16 25 degrees QTcB Int : 442 ms Normal sinus rhythm Normal ECG When compared with ECG of 24-Aug-2025 14:01, Criteria for Septal infarct are no longer Present T wave inversion no longer evident in Anterior leads Referred By: Adriana Sexton Electronically Signed By: MONIK JUAREZ
--- NOTE | 2025-08-31 02:28 | PC.NURSE ---
Addendum entered by Trish Hester RN 08/31/25 02:48: RN stopped ABX infusion as pt stating she had pain in the R shoulder same side as the IV. PT stated she had some sob and feeling unwell. RN informed MD. Original Note: pt c/o of cp, dizziness. RN informed MD. putting in new orders.
[2025-08-31 02:32] LABS: Appearance Urine Clear; Glucose Urine UA Negative (Negative); PH 8.0 (5.0-9.0); Specific Gravity - Urine 1.015 (1.005-1.025); UMIC TRIGGER UA YES
[2025-08-31 03:08] LABS: Troponin-I High Sensitivity < 2.7 ng/L (<3.5-17.0)
--- NOTE | 2025-08-31 03:31 | PC.NURSE ---
po meds from mar pulled from pyxis. informed Rn to let pt wake up more before she takes them. pt is still not feeling well.
--- NOTE | 2025-08-31 05:20 | PC.NURSE ---
pt c/o of 10/10 L flank pain; pt in tears. aware.
[2025-08-31] MEDS: iohexoL 350 MG/ML 100 ML INFUS..BTL 75 ML IV (06:01)
--- NOTE | 2025-08-31 07:15 | PC.NURSE ---
pt is alert and oriented, skin appropriate for ethnicity, respirations even and unlabored, pt is reporting left sided lower abd pain that radiates to the flank area, pt reports that the pain medication helped initially but the pain is back to 10/10, but the right arm pain is better 8/10, vs stable
== END 2025-08-31 12:11 | disposition home or self-care (01) ==
PROVIDERS: Student in an Organized Health Care Education/Training Program; Emergency Provider Emergency Medicine Emergency Medical Services; PCP Internal Medicine
DX: R10.A2 Flank pain, left side (principal); R10.9 Unspecified abdominal pain; M19.90 Unspecified osteoarthritis, unspecified site; K21.9 Gastro-esophageal reflux disease without esophagitis
CPT/HCPCS: 36415; 71045; 71275; 74174; 74177; 80053; 81001; 84484; 85025; 93005; 96361; 96374; 96375; 96376; 99285; J0744; J1171; J2270; Q9967

== ENCOUNTER → 2025-08-31 01:22 | Outpatient (BNV) | payer OTHER, SELFPAY | PROVIDERS: Emergency Provider Student in an Organized Health Care Education/Training Program; PCP Internal Medicine; Visit Provider Radiology Diagnostic Radiology | DX: I71.00 Dissection of unspecified site of aorta (principal); R10.A2 Flank pain, left side; R07.9 Chest pain, unspecified | CPT/HCPCS: 71045; 71275; 74174; 74177 ==

== ENCOUNTER → 2025-08-31 02:24 | Outpatient (BNV) | payer OTHER, SELFPAY | PROVIDERS: Emergency Provider Emergency Medicine Emergency Medical Services; PCP Internal Medicine; Visit Provider Internal Medicine | DX: R07.9 Chest pain, unspecified (principal) | CPT/HCPCS: 93010 ==

== ENCOUNTER 2025-09-10 09:13 | Outpatient (AMB) | payer OTHER, SELFPAY ==
[2025-09-10 09:21] VITALS: BP 116/78; PULSE 108; RESP 18; TEMP 36.2; O2SAT 97; BMI 47.1
--- NOTE | 2025-09-10 09:21 | A.OFFPC_ITS ---
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 Required: No Accompanied by: Self / Same As Patient Allergies No Known Allergies Allergy (Verified 09/10/25 09:46) Medication List - Last Reconciled 09/10/25 by Farideh Marquez MD acetaminophen (Tylenol Extra Strength) 500 mg PO Q6H PRN acetaminophen 325 mg PO QID PRN 30 days [adult diapers pull-ups As directed] albuterol sulfate 90 mcg/actuation 2 puffs inhalation Q4H PRN albuterol sulfate 2.5 mg (3 mL) inhalation Q6H PRN amitriptyline 100 mg PO BEDTIME 90 days apixaban (Eliquis DVT-PE Treat 30D Start) 5 mg PO BID apixaban (Eliquis) 5 mg PO BID 30 days blood pressure kit-extra large As directed bupropion HCl XL 300 mg PO DAILY carboxymethylcellulose sodium 0.5% 1 drp ophthalmic (eye) BID PRN 30 days cefuroxime axetil 250 mg PO BID 7 days cetirizine 10 mg PO DAILY PRN 90 days chair, wheel (Wheel chair) As directed chlorhexidine gluconate 0.12% 15 mL buccal DAILY 30 days cholecalciferol (vitamin D3) (Vitamin D3) 25 mcg PO DAILY clonazepam 1 mg PO DAILY commode (bedside commode) As directed cromolyn 4% 1 drp ophthalmic (eye) 6XD 30 days cromolyn 4% 1 drp ophthalmic (eye) QID 30 days cyclobenzaprine 5 mg PO TID PRN 3 days diclofenac sodium 1% 4 grams topical QID disposable gloves As directed docusate sodium (Colace) 100 mg PO BID [electric wheelchair As directed] esomeprazole magnesium 40 mg PO DAILY famotidine (Pepcid) 40 mg PO BEDTIME [flushable wipes As directed] aqvimlychxy-otgcwfqlv-lhzoqjxx 200-62.5-25 mcg (Trelegy Ellipta) 1 inh inhalation DAILY 30 days gabapentin 400 mg PO TID hydrocortisone 1% (Anti-Itch (hydrocortisone)) 1 appl topical BID PRN 2 weeks lactulose 10 grams (15 mL) PO BEDTIME PRN 30 days levothyroxine 50 mcg PO DAILY@0630 lidocaine 5% (Lidoderm) 1 patch topical DAILY lidocaine 5% 1 patch topical DAILY lidocaine HCl 4% (AsperFlex (lidocaine HCl)) use 1-2 inch ointment and apply up to 3 times daily on L shoulder topically; miscellaneous medical supply OVERBED TABLE morphine 15 mg PO Q6H PRN nebulizers (AeroEclipse II Nebulizer) As directed oxygen-air delivery systems As directed [POWER LIFT RECLINER As directed] [recliner with power buttons As directed] [rollatoe walker with a seat As directed] rosuvastatin 10 mg PO DAILY [shower seat As directed] topiramate 100 mg PO BID underpads (Bed Underpads) As directed [wheelchair As directed] [wheeled table with drawers As directed] zolpidem 10 mg PO BEDTIME PRN 30 days Tobacco use date assessed: 09/10/25 Fall risk assessment: No Falls in past year Last assessed Fall Risk: 09/10/25 Dental Screening Dental Screen Date: 09/10/25 Did you have a dental visit in the last 12 months?: Yes Did you have a dental problem in the last 6 months where you did not have access to dental care?: No Was dental information given to patient?: Patient has dentist HPI HPI Comments History of Present Illness Details The patient is a 65-year-old female presenting for follow-up after recent emergency room visits for pain and a urinary tract infection, and for chronic condition management. The patient recently experienced an episode starting with back and arm pain, which prompted a home health visit. Initial testing revealed an elevated white blood cell count without a confirmed infection, but a subsequent urine culture confirmed a UTI, for which she was started on antibiotics at home. Due to severe pain, she was given morphine and required an ER visit. Following this, she developed a systemic pruritic reaction, which was determined to be an allergic reaction to morphine, not the antibiotics. A few days later, she developed new abdominal and back pain, necessitating another ER visit. She wants to be referred to Urology at [facility] because it is easier for her. She has morbid obesity with a BMI of sore 47.1 and was advised to do diet and exercise to reach BMI goal less than 30. She follows with her pain management for her chronic low back pain. She has hypothyroidism in which TSH will be order. Walks with a walker for gait stability. The patient has a history of pulmonary embolism, for which she takes Eliquis. A recent finding showed an ejection fraction of 45-50%, suggestive of congestive heart failure, but she does not currently have a quality assurance coach. Her medical history also includes hyperlipidemia, managed with rosuvastatin 10 mg. Psychiatric history is significant for bipolar disorder, depression, and anxiety. Her medications include Tylenol, amitriptyline, clonazepam for anxiety, vitamin D, Topamax 100 mg twice daily, and zolpidem for sleep, which is managed by her psychiatrist. She also uses oxygen at home and takes lactulose for constipation. [facility] Medical History (Updated 09/10/25 @ 09:58 by Farideh Marquez MD) Pre-op evaluation Polyarticular osteoarthritis Avascular necrosis of bones of both hips Dysuria Morbid obesity Avascular necrosis Physical exam Well woman exam RSV (acute bronchiolitis due to respiratory syncytial virus) Chest pain Palpitations URI (upper respiratory infection) Snoring Encounter for screening for malignant neoplasm of colon Lumbar pain Urinary incontinence Low blood pressure Allergic reaction UTI (urinary tract infection) Palpitations Morbid obesity with BMI of 40.0-44.9, adult Epigastric abdominal pain Oxygen dependent Hypothyroidism Hypersomnia ILD (interstitial lung disease) ROB on CPAP History of ESBL E. coli infection Obstructive sleep apnea Moderate recurrent major depression Urinary retention Acute and chronic respiratory failure with hypoxia COVID-19 Lupus (systemic lupus erythematosus) Polyarthralgia Neck mass Eosinophilia Severe asthma Asthma-COPD overlap syndrome Trigger finger of right hand Recurrent UTI Tachycardia Obesity Lumbar degenerative disc disease GERD (gastroesophageal reflux disease) Hemangioma Hypovitaminosis D Bipolar 1 disorder Depression with anxiety Insomnia COPD (chronic obstructive pulmonary disease) Surgical History Hx of hand surgery Hx of cardiac catheterization History of esophagogastroduodenoscopy (EGD) History of cystocele History of colonoscopy History of shoulder surgery History of carpal tunnel release History of hysterectomy History of section History of tonsillectomy Family History Father Prostate cancer Mother No problems noted. Sister Nasopharyngeal cancer Social History Household Members: None Household Members Other:: 1 Housing: Apartment Do you presently have visiting nurse or other home services: Yes (Has [employer]IOR [employer] MA[employer]) Alcohol intake: never Comment: sleeping Patient Tobacco Use Status: Former Tobacco user Years Smoked: 14 +/- e-Cigarette/Vaping Use: Never Used Second Hand Smoke Exposure: No Advance Directives Date on File: 01/08/21 service: No Current occupational status: disabled Current occupation: right and left handed--- HAS S[employer] SERVICES Cognitive needs: Yes (walker ) Hearing needs: No Vision needs: Yes Female Reproductive History Menstrual Age of Menarche: 12 Questionnaire Thrive Questionnaire Date Thrive assessed: 07/15/25 I am a: Patient What is your living situation today?: I have a steady place to live Within the past 12 months, did the food you bought not last and you didn't have the money to get more?: Never true Within the past 12 months, did you worry whether your food would run out before you got money to buy more?: Never true Do you have trouble paying for medicines?: No Do you have trouble getting transportation to medical appointments?: No Do you have trouble paying your heating and electricity bill?: No Do you have trouble taking care of your child, family member or friend?: No Do you have trouble with day-to-day activities such as bathing, preparing meals, shopping, managing finances, etc.?: No Are you currently unemployed and looking for a job?: No Are you interested in more education?: No Please select the resources that you would like help with: None Currently or been in a relationship where the following occur: I choose not to answer THRIVE Score: 0 DAO-7 AMB Questionnaire DAO-7 Date DAO - 7 assessed: 11/19/24 Source: Developed by Drs. Power Thornton, Melissa Peñaloza, Master Grijalva and colleagues, with an educational sudhir from [employer]. Review of Systems Const All systems reviewed & are unremarkable except as noted in HPI and below Card Denies chest pain at rest, Denies chest pain with activity, Denies edema, Denies irregular heart rhythm, Denies claudication, Denies dyspnea, Denies dyspnea on exertion, Denies orthopnea, Denies paroxysmal nocturnal dyspnea and Denies slow heart rate Resp Denies cough, Denies dyspnea and Denies dyspnea on exertion GI Denies abdominal pain, Denies change in bowel habits, Denies excessive flatus, Denies nausea and Denies vomiting Physical exam (Primary Care) Vital Signs: Last Vital Signs Temp 97.1 F 09/10/25 09:21 Pulse 108 H 09/10/25 09:21 Resp 18 09/10/25 09:21 BP 116/78 09/10/25 09:21 Pulse Ox 97 09/10/25 09:21 Oxygen Delivery Method Room Air 09/10/25 09:21 BMI result Body Mass Index 47.1 BMI Assessment/Plan discussion: High BMI High, discussed plan: lifestyle, weight reduction, dietary and physical activity Tobacco/Smoking Status: Tobacco use Status Tobacco use date assessed 09/10/25 09/10/25 09:29 Patient Tobacco Use Status Former Tobacco user 09/10/25 09:29 Tobacco use type 06/13/24 13:49 e-Cigarette/Vaping Use Never Used 09/10/25 09:29 Thrive Assessment: Date of Thrive Assessment Date Thrive assessed 07/15/25 09/10/25 09:29 Currently or been in a relationship where the following occur: I choose not to answer Const Limitations: ambulation with walker Resp Effort & Inspection: normal respiratory effort Auscultation: clear to auscultation bilaterally Cardio Jugular venous distension: no JVD Rate: regular rate Rhythm: regular rhythm Heart sounds: S1 normal heart sound present and S2 normal heart sound present Extrem General: Yes full ROM Coding Level of Care Code Est Pt Level 4 (24515) Complex EM visit Add On G2211 Diagnoses Cardiomyopathy I42.9 Bipolar 1 disorder F31.9 Moderate recurrent major depression F33.1 Hypothyroid E03.9 Morbid obesity E66.01 Slow transit constipation K59.01 Recurrent urinary tract infection N39.0 Sacroiliac joint dysfunction M53.3 Time Spent (min) 22 Assessment & Plan Assessment & Plan (1) Cardiomyopathy: Code(s): I42.9 - Cardiomyopathy, unspecified Category: Medical (2) Bipolar 1 disorder: Code(s): F31.9 - Bipolar disorder, unspecified Category: Medical (3) Moderate recurrent major depression: Code(s): F33.1 - Major depressive disorder, recurrent, moderate Category: Medical (4) Hypothyroid: Code(s): E03.9 - Hypothyroidism, unspecified Category: Medical (5) Morbid obesity: Code(s): E66.01 - Morbid (severe) obesity due to excess calories Category: Medical (6) Slow transit constipation: Code(s): K59.01 - Slow transit constipation Category: Medical (7) Recurrent urinary tract infection: Code(s): N39.0 - Urinary tract infection, site not specified Category: Medical (8) Sacroiliac joint dysfunction: Code(s): M53.3 - Sacrococcygeal disorders, not elsewhere classified Category: Medical Plan Plan 1. Recurrent Urinary Tract Infections The patient's recurrent UTIs, hematuria, and associated back and abdominal pain are complex issues that require specialist management. She will continue to follow up with her urologist for these problems, who will manage further diagnostic imaging. 2. Congestive Heart Failure The patient was found to have a mildly reduced ejection fraction of 45-50%, indicating possible congestive heart failure. A referral will be sent for a cardiology consultation for further evaluation and management, as she does not currently have a quality assurance coach. 3. Insomnia And Psychiatric Conditions Management of zolpidem for insomnia should be discussed with her psychiatrist, Gracy. Continue current medications for anxiety, depression, and bipolar disorder. 4. Constipation The patient reports that lactulose is effective for her constipation. A prescription for lactulose will be provided. 5. Hypothyroidism Continue levothyroxine. Monitor TSH. 6. Morbid obesity Start diet and exercise. BMI goal is less than 30. 7. Sacroiliac joint dysfunction Continue Tylenol as needed. Follow-up with pain management. Orders: Orders Lipid Panel Today E78.5 - Hyperlipidemia, unspecified Vitamin D 25-OH Total Today E55.9 - Vitamin D deficiency, unspecified Complete Blood Count Auto Diff Today D64.9 - Anemia, unspecified IRON PROFILE Today D64.9 - Anemia, unspecified Thyroid Stimulating Hormone Today E03.9 - Hypothyroidism, unspecified NT Pro B Type Natriuretic Pept Today I42.9 - Cardiomyopathy, unspecified Vitamin B12 and Folate Today E53.8 - Deficiency of other specified B group vitamins Comprehensive [place]. Panel Fast Today I42.9 - Cardiomyopathy, unspecified Referrals Urology Referral N39.0 - Urinary tract infection, site not specified Cardiology Referral I42.9 - Cardiomyopathy, unspecified Medications: Changed From lactulose 10 grams (15 mL) PO BEDTIME 30 days PRN 237 mL 2RF constipation To lactulose 10 grams (15 mL) PO BEDTIME PRN 3,785 mL 2RF constipation 90 days Refilled esomeprazole magnesium 40 mg PO DAILY 90 caps 2RF docusate sodium (Colace) 100 mg PO BID 20 caps 0RF
--- OUTSIDE RECORDS SUMMARY | 2025-09-10 10:04 | XMS_ITS | Clinical Summary ---
Author Organization [facility] Address [address] [address] Phone Care Team Providers Care Tetryl Nitrator Operator Name Role Phone Pcp, Unknown Primary Care [...] on patient's age to complete this topic IPV VACCINES Aged Out No longer eligi ble based on patient's age to complete this topic MENINGOCOCCAL VACCINES (ACWY) Aged Out No longer eligible based on patient's age to complete this topic MENINGOCOCCAL VACCINES (B) Aged Out N o longer eligible based on patient's age to complete this topic Medical Devices Not on file Insurance [place] [id number] MEDICARE REPLACEMENT MEDICARE REPLACEMENT MEDICARE REPLACEMENT MEDICARE REPLACEMENT CARE MEDICARE REPLACEMENT MEDICARE REPLACEMENT MEDICARE REPLACEMENT [address] [address] ONE [employer] MEDICARE REPLACEMENT Care Teams Tetryl Nitrator Operator Relationship Specialty Start Date End Date Pcp, Unknown PCP - General 05/20/20 Additional Source Comments The information contained in this document represents components of the legal health record. It is not the complete legal health record.[facility]
--- OUTSIDE RECORDS SUMMARY | 2025-09-10 10:04 | XMS_ITS | Encounter Summary ---
Author Organization [facility] Address [address] [facility] [address] [place] [id number] Phone Care Team Providers Care Grain Cleaner And Transfer Operator Name Role Phone Pcp, Unknown Primary Care Provider Unavailabl e Encounter Details Date Type Department Care Team (Late st Contact Info) Description 06/20/2020 Transcribe Orders [facility] Specimen Processing [address] [place] [address] Anton Stoddard MD [address] [facility] [address] [place] [address] [email or web address] Encounter for screening laboratory testing for COVID-19 [...] AM EDT) Specimen Source/Descriptio n NASOPHARYNGEAL SWAB [facility] Comment NASOPHARYNGEAL SWAB [facility] SARS-CoV 2 (COVID-19) PCR Not Detected Not Detected [facility] Comment: Negative results do not preclude SARS-CoV-2 [...] 8:00 AM EDT 06/20/2020 11:46 AM EDT Anotn Stoddard MD BODY FLUIDS AND STOOLS ORDERABLE S Final Result Performing Organization Address City/[facility]/ZIP Co de Phone Number [address] [address] * COVID-19 PCR Order (06/20/2020 8:00 AM EDT) Specimen Source NASOPHARYNGEAL SWAB (MECHANICAL INSULATOR) [facility] COVID Testing Status Sent to [facility] Other 06/20/2020 8:00 AM EDT 06/20/2020 11:46 AM EDT us Anton Stoddard MD LAB GENERAL ORDERABLES Final Res ult Performing Organization Address City/[facility] Co de Phone Number [address] [address] documented in this encounter Visit Diagnoses Diagnosis Encounter for screening laboratory testing for COVID-19 virus- Primary documented in this encounter Additional Health Concerns Infection Onset Date Last Indicated Resolved Time CoV-Exposed Comment:Recent close contact 06/18/2020 06/18/2020 07/02/2020 1:24 AM EDT CoV-Exposed Comment:Recent close contact 07/10/2020 07/10/2020 07/24/2020 1:23 AM EDT documented as of this encounter Care Teams Grain Cleaner And Transfer Operator Relationship Specialty Start Date End Date Pcp, Unknown PCP - General 05/20/20 documented as of this encounter Additional Source Comments The information contained in this document represents components of the legal health record. It is not the complete legal health record.[facility]
--- OUTSIDE RECORDS SUMMARY | 2025-09-10 10:05 | XMS_ITS | Data Portability ---
Author Organization [employer] [facility], [facility] Address [address] [place] [address] Care Team Providers Care Brim Edge Trimmer Name Role Phone DICKSON SAEZ Primary Care Provider HIM JOCELYN OTHER Assessment Encounter Date Assessment Date Assessment LastModified by Organization Details LastModified Time 08/26/2024 08/26/2024 As noted, we wer e called to see this patient regarding concerns of dysuriaEvaluation in the field was performed by my team foreman colleague, as noted above, I provided real-time [...] worsening serious symptoms, particularly flank pian, fever. Not available 08/26/2024 20:23:21 08/21/2025 08/21/2025 Impression: 65yo/f referred by ELECT[employer] for urinary symptoms and back pain. Patient with multiple chronic medical conditions as above, states for the past 2-3 days has been having worsening back pain symptoms, initially seemed to localize to one side, today describing bilateral back/flank pain. [employer] has noticed increased odor to urine, but [...] demonstrate a UTI or pyelonephritis. Patient and ELECT[employer] feel these symptoms are new in the last 2-3 days. I advised that for full evaluation I would recommend patient be transferred to [facility] ED for further evaluation and treatment including consideration of diagnostic imaging. Patient and ELECT[employer] are declining at this time, stating they would prefer to discuss with PCP first. Advised to seek care immediately with any acute worsening or change in symptoms which they understand. [email or web address] Not available 08/21/2025 13:25:07 08/26/2025 08/26/2025 I provided real -time medical direction via phone for this encounter and was available for additional phone-based assistance as needed. I have reviewed and agree with the Assessment and Plan as documented by the Guard Captain. Patient given the opportunity to ask questions. [...] facial, tongue swelling, SOB, CP, BARRY. Per team foreman on the scene, VSS, please see uploaded pictures Please read the team foreman note for their exam findings. Impression: Drug [...] in the field was performed by my team foreman colleague, as noted above, I provided real-time [...] . By the instead team and prescribed [id number] mg PO for a total of three [...] Iv steroids. She could have a Brent Jarerd syndrome developing. Currently she has no mouth [...] the emergency department. This was based on [email or web address] Not available 08/28/2025 11:20:37 Plan of Treatment Reminders Order Date Submit Date Provider Last Modified By Organization Details Last Modified Time Details Appointments None recorded. Lab urinalysis, dipstick 2024 [facility], [address] [place] [address], [id number] 16:08:37 urinalysis, dipstick 2024 025 [facility], [address] [place] [address], [id number] 14:29:02 culture, urine 2024 025 [facility] (Centralized Electronic Ordering - All Locations), Patient Can Go To The Location Of Their Choice, [id number] 20:06:15 urinalysis, dipstick 2024 025 [facility], [address] [place] [address], [id number] 14:08:49 culture, urine 2023 024 [facility] (Centralized Electronic Ordering - All Locations), Patient Can Go To The Location Of Their Choice, [id number] 4 10:06:26 urinalysis, dipstick 2023 024 [email or web address] [facility], [address] [place] [address], [id number] 4 20:23:24 Referral None recorded. Procedures None recorded. Surgeries None recorded. Imaging None recorded. Medication Orders prednisone 20 mg tablet 2024 025 [facility], [address] [place], [address], 5 05:01:11 prednisone 20 mg tablet 2024 025 [facility], [address] [place], [address], 5 05:01:11 prednisone 20 mg tablet 2024 025 [facility], [address] [place], [address], 5 05:01:11 prednisone 20 mg tablet 2024 025 [facility], [address] [place], [address], 5 05:01:11 cefpodoxime 200 mg tablet 2023 024 [facility], [address] [place] [address], [address], 4 18:25:11 Patient TargetsNo targets recorded. Patient InstructionsNo instructions recorded. Reason for Referral None Reported. Results Created Date Observation Date Name Description Value Unit Range Abnormal Flag Note LastModifiedBy Organization Detail LastModifiedTime 08/26/2008/29/2024 URINE CULTU RE,CO MPREH ENSIV E urine culture,comp rehensive Final report Not Available [facility] ([facility]) [address] [facility], [place], [address], 08/29/2024 10:06:37 08/26/2008/29/2024 URINE CULTU RE,CO MPREH ENSIV E result 1 COMMEN T No growt h in 36 - 48 hours . Not Available [facility] ([facility]) [address] [facility], [place], [address], 08/29/2024 10:06:37 08/21/2008/23/2025 URINE CULTU RE, UROLO GY SAKINA P urine culture, urology workup Final report Not Available [facility] ([facility]) [address] [facility], [place], [address], 08/23/2025 18:05:32 08/21/2008/23/2025 URINE CULTU RE, UROLO GY SAKINA P result 1 COMMEN T Mixed uroge nital lizeth 10,00 0-25, 000 colon y formi ng units per mL Not Available [facility] ([facility]) [address] [facility], [place], [address], 08/23/2025 18:05:32 08/21/2008/21/2025 ONE SPECI MEN IDENT [...] colle ction . Not Available [facility] ([facility]) [address] [facility], [place], [address], 08/22/2025 20:06:16 Result Notes None recorded. Medical Equipment None Reported. Allergies Allergen ID Allergen Name Allergen Category Reaction Reaction Severity Criticality Documentation Date Start Date Code Code System Note Provider Name and Address Organization Details Recorded Time 72838 cefuroxim e Not available Not available Not available Not available 08/26/20254 RxNorm Not Available [facility] - production 09:44:16 Medications Name Sig Start Date Stop Date Status Note LastModified by Organization Details LastModified Time cyclobenzap rine 10 mg tablet TAKE 1 TABLET BY MOUTH 3 TIMES A DAY NEEDED FOR SPASM FOR 7 DAYS active Not Available Not Available No t Available amoxicillin 500 mg capsule TAKE 1 CAPSULE BY MOUTH THREE TIMES A DAY UNTIL GONE active Not Available Not Available No t Available acetaminoph en 325 mg tablet TAKE 2 TABLET BY MOUTH EVERY 8 HOURS NEEDED active Not Available Not Available No t Available prednisone 10 mg tablet TAKE 2 TABLETS BY MOUTH DAILY FOR 5 DAYS THEN 1 TABLET DAILY FOR 5 DAYS active Not Available Not Available No t Available gabapentin 600 mg tablet active Not Available Not Available Not Available doxycycline hyclate 100 mg capsule [...] 2.5 mg/3 mL (0.083 %) solution for nebulizatio n 2.5 MG (3 ML) INHALED EVERY 6 HOURS NEEDED FOR FOR WHEEZING active Not Available Not Available No t Available trazodone 50 mg tablet TAKE 1 TABLET BY MOUTH EVERYDAY AT BEDTIME active Not Available Not Available No t Available cetirizine 10 mg tablet TAKE 1 TABLET BY MOUTH EVERY DAY NEEDED FOR ALLERGIES active Not Available Not Available No t Available cefpodoxime 200 mg tablet TAKE 1 TABLET BY MOUTH EVERY 12 HOURS FOR 5 DAYS active Not Available Not Available No t Available fosfomycin tromethamin e 3 gram oral packet active Not Available Not Available Not Available valacyclovi r 1 gram tablet TAKE 1 TABLET BY MOUTH EVERY 8 HOURS FOR 7 DAYS active Not Available Not Available No t Available hydrocodone 5 mg-acetamin ophen 325 mg tablet 1 TAB ORALLY EVERY 4 TO 6 HOURS NEEDED FOR PAIN PARTIAL FILL UPON PATIENT REQUEST. active Not Available Not Available No t Available sumatriptan 25 mg tablet active Not Available Not Available Not Available prednisone 20 mg tablet Take 3 tablets by oral route for 2 days. 09/04 completed Not Available Not Available Not Available gabapentin 400 mg capsule TAKE 1 [...] Not Available Not Available No t Available metronidazo le 500 mg tablet TAKE 1 TABLET BY MOUTH TWICE A DAY FOR 7 DAYS active Not Available Not Available No t Available valacyclovi r 500 mg tablet TAKE 2 TABLETS BY [...] ITCHY EYES active Not Available Not Available No t Available methenamine hippurate 1 gram tablet TAKE 1 TABLET BY MOUTH TWICE A DAY active Not Available Not Available No t Available trazodone 100 mg tablet TAKE 1 TABLET BY MOUTH EVERYDAY AT BEDTIME active Not Available Not Available No t Available phenazopyri dine 100 mg tablet TAKE 1 TABLET BY MOUTH THREE TIMES A DAY FOR 2 DAYS active Not Available Not Available No t Available levothyroxi ne 50 mcg tablet TAKE 1 TABLET BY MOUTH EVERY DAY AT 6:30 active Not Available Not Available No t Available pantoprazol e 40 mg tablet,joon yed release TAKE 1 TABLET BY MOUTH TWICE A DAY active Not Available Not Available No t Available Banophen 25 mg tablet TAKE 1 TABLET BY MOUTH AT BEDTIME NEEDED FOR SLEEP active Not Available Not Available No t Available esomeprazol e magnesium 40 mg capsule,del ayed release TAKE 1 CAPSULE BY MOUTH EVERY DAY active Not Available Not Available No t Available nitrofurant oin macrocrysta l 100 mg capsule TAKE 1 CAPSULE BY MOUTH TWICE A DAY WITH FOOD active Not Available Not Available No t Available prednisone 50 mg tablet TAKE 1 TABLET BY MOUTH EVERY DAY FOR 5 DAYS active Not Available Not Available No t Available ibuprofen 400 mg tablet TAKE 1 [...] AT BEDTIME active Not Available Not Available No t Available levofloxaci n 500 mg tablet active Not Available Not Available Not Available estradiol 0.01% (0.1 mg/gram) vaginal cream PLACE 1 GRAM VAGINALLY 3 TIMES PER WEEK DIRECTED active Not Available Not Available No t Available zolpidem 10 mg tablet TAKE 1 TABLET BY MOUTH EVERY DAY AT BEDTIME NEEDED active Not Available Not Available No t Available albuterol sulfate HFA 90 mcg/actuati on aerosol inhaler INHALE 2 PUFFS BY MOUTH EVERY 4 HOURS NEEDED FOR WHEEZE active Not Available Not Available No t Available topiramate 100 mg tablet TAKE 1 TABLET BY MOUTH TWICE A DAY active Not Available Not Available No t Available amitriptyli ne 100 mg tablet TAKE 1 TABLET BY MOUTH EVERYDAY AT BEDTIME active Not Available Not Available No t Available loratadine 10 mg tablet TAKE 1 TABLET BY MOUTH EVERY DAY active Not Available Not Available No t Available naproxen 500 mg tablet TAKE 1 TABLET BY MOUTH TWICE A DAY NEEDED FOR PAIN active Not Available Not Available No t Available amoxicillin 875 mg-potassiu m clavulanate 125 mg tablet TAKE 1 TABLET TWICE A DAY FOR 10 DAYS active Not Available Not Available No t Available neomycin 3.5 mg/g-polymy amarilis B 10,000 unit/g-dexa meth 0.1 % eye oint APPLY INTO BOTH EYES AT BEDTIME active Not Available Not Available No t Available ertapenem 1 gram solution for injection active Not Available Not Available No t Available metaxalone 800 mg tablet active Not Available Not Available Not Available Vitamin D3 25 mcg (1,000 unit) capsule TAKE 1 CAPSULE BY MOUTH EVERY DAY active Not Available Not Available No t Available rosuvastati n 10 mg tablet TAKE 1 TABLET ORALLY EVERY OTHER DAY FOR 90 DAYS active Not Available Not Available No t Available bupropion HCl XL 300 mg 24 hr tablet, extended release TAKE 1 TABLET BY MOUTH EVERY DAY IN THE MORNING active Not Available Not Available No t Available nitrofurant oin monohydrate /macrocryst als 100 mg capsule TAKE 1 CAPSULE BY MOUTH EVERY 12 HOURS FOR 5 DAYS active Not Available Not Available No t Available lubiproston e 24 mcg capsule TAKE 1 CAPSULE BY MOUTH TWICE A DAY active Not Available Not Available No t Available quetiapine 50 mg tablet active Not Available Not Available Not Available Pulmicort Flexhaler 180 mcg/actuati on breath activated active Not Available Not Available No t Available Lubricant Eye Drops 0.5 % drops in a dropperette ISNTILL 1 DROP INTO THE EYE(S) 2 TIMES A DAY NEEDED FOR DRY EYE(S) FOR 30 DAYS active Not Available Not Available No t Available butalbital- acetaminoph en-caffeine 50 mg-300 mg-40 mg capsule TAKE 1 CAPSULE BY MOUTH EVERY 8 HOURS NEEDED FOR PAIN active Not Available Not Available No t Available Linzess 145 mcg capsule TAKE 1 CAPSULE BY MOUTH EVERY DAY active Not Available Not Available No t Available Victoza 2-Scott 0.6 mg/0.1 mL (18 mg/3 mL) subcutaneou s pen injector active Not Available Not Available Not Available ProAir RespiClick 90 mcg/actuati on breath activated active Not Available Not Available No t Available Breo Ellipta 200 mcg-25 mcg/dose powder for inhalation TAKE 1 PUFF BY MOUTH EVERY DAY active Not Available Not Available No t Available Fasenra 30 mg/mL subcutaneou s syringe active Not Available Not Available No t Available Trelegy Ellipta 200 mcg-62.5 mcg-25 mcg [...] 5 99 % 99 % 102 /min 639358. 224 g 154.94 cm 98.1 [degF] 16 /min 134/79 mm[Hg] Not Available [facility] - production 5 12:52:55 Date Recorded Body weight Body temperature Respiratory rate Heart rate Oxygen saturation Oxygen saturation in Arterial blood by Pulse oximetry Body height Systolic blood pressure Provider Name and Address Organization Details Last Updated DateTime 5 412368. 224 g 98.3 [degF] 20 /min 87 /min 99 % 99 % 154.94 cm 118 mm[Hg] Not Available [facility] - production 5 12:03:28 Date Recorded Heart rate Body temperature Oxygen saturation Oxygen saturation in Arterial blood by Pulse oximetry Respiratory rate Systolic And Diastolic Provider Name and Address Organization Details Last Updated DateTime 4 91 /min 98.8 [degF] 100 % 100 % 16 /min 128/88 mm[Hg] Not Available [facility] - production 4 18:22:11 Date Recorded Body weight Body temperature Respiratory rate Body height Heart rate Oxygen saturation Oxygen saturation in Arterial blood by Pulse oximetry Systolic And Diastolic Provider Name and Address Organization Details Last Updated DateTime 5 621548. 224 g 98.3 [degF] 18 /min 154.94 cm 102 /min 96 % 96 % 130/83 mm[Hg] Not Available [facility] - production 16:42:05 Date Recorded Heart rate Body weight Body temperature Respiratory rate Body height Oxygen saturation Oxygen saturation in Arterial blood by Pulse oximetry Systolic And Diastolic Provider Name and Address Organization Details Last Updated DateTime 5 94 /min 45681.4 g 99.1 [degF] 14 /min 157.48 cm 98 % 98 % 132/84 mm[Hg] Not Available [facility] - production 11:00:59 Social History None recorded. [...] 1126 Surya Acevedo MD Main - [facility] [address] [place] [phone] 02/18/2022 14:31:32 07/07/2022 13:35:00 Periorbital edema 90943738 H05.229 62yo woman evaluated for months of [...] 1140 Eden Coronado MD Main - [facility] [address] [place] [phone] 02/19/2022 09:58:40 07/05/2022 15:20:25 Dysuria 28057766 R30.9 Pt with hx prior UTIs (though [...] assessment and plan as documented by the team foreman. I provided real time medical direction for this encounter and was immediatel y available to provide additional phone based assistance as needed. Periorbital edema 273710 00 H05.229 Symptoms persist since last [facility] visit, continuing on allergy tx. urine dip today w/o protein to suggest nephrotic syndomre, recommend PCP f/up for allergy testing/tx . Urine dip also w/ trace ketones but no hx diabetes and normal PO intake, likely contaminat ion from adjacent test strip. F/up formal urinalysis 1495 Kenneth Castellon MD [facility] - [address] [address] 03/10/2022 11:36:32 07/06/2022 14:33:02 Pruritic rash 76065437 L28.2 4072 Braydon Recio MD [address] [address] 07/18/2022 17:25:40 07/22/2022 13:31:39 Pruritic rash 96809416 L28.2 [id number] Gerardo Lunsford MD [address] [address] 08/26/2024 18:22:09 08/26/2024 21:57:44 Acute urinary tract infection [id number] N39.0 [id number] John Ferrer MD [facility] ED Medical [address] [address] 08/21/2025 12:52:47 08/21/2025 14:31:53 Acute low back pain 643167576 M54.50 [id number] [id number] Francisco Javier Arroyo MD [facility] ED Medical [address] [address] 08/24/2025 12:03:23 08/24/2025 21:36:47 Flank pain 271560517 R10.A3 [id number] Patient seen a few days prior with flank pain and had advised to go to the ED. Recent Urine culture with mixed lizeth from 3 days prior; currently positive LE but neg nitrite. Given 08/08 flank pain for many days, advised to go to ED for imaging and patient agrees. [id number] Heide Silva MD [facility] ED Medical [address] [address] 08/26/2025 16:41:55 08/27/2025 11:47:33 Pruritic rash 11454634 L28.2 [id number] Pruritic d isorder of skin 0834096206 L29.9 87018 24655 MARTA ZAMBRANO MD [facility] ED Medical [address] [address] 08/28/2025 11:00:53 08/28/2025 19:00:03 Acute allergic reaction 232030660 T78.40XD [id number] Eruption c aused by drug 93276385 L27.0 [id number] Health Concerns Section Related Observation LastModified by Organization Detai ls LastModified Time None Recorded Concern Status LastModified by Organization Details LastModified Time None Recorded Advance Directives Directive None Recorded Payers Insurance Date Sequence Insurance Name Policy Number Policy Burnham Covered Member ID Burnham Member ID Guarantor Name 08/26/2024 1 [facility] - DOS PRIOR TO 2023 - DUAL ELIGIBLE (MEDICARE REPLACEMENT/ADV ANTAGE - HMO) Gracy Mead [id number] Gracy Mead 08/28/2025 1 [facility] - DOS ON OR AFTER 2023 - DUAL ELIGIBLE - INTERMEDIATE OPTIONS AND ONE CARE (MEDICARE REPLACEMENT/ADV ANTAGE - HMO) Gracy Mead [id number] Gracy Mead Notes Date Note Type Note Provider Name and Address Organization Details Recorded Time 08/26/2024 text/html CRC Nurse Triage Notes (Neeru Daniels): Reason For Request: Pt's E[employer] reporting UTI Chief Complaints: UTI/Pyelonephritis PMH: Heart Disease, COPD/Asthma, Severe Persistent Mental Illness (SPMI) Allergies: No Known Comments: PMH: COPD, early Dementia, heart disease, Reporting UTI symptoms, painful urination, some bloody urine yesterday, none today, Denies any other symptomsReports a UTI months ago, [employer] Rachana will be with member today. Will place referral for UTI w/u.verified info: Susana PRADO Guard Captain Organization Information for Pedro Ferrer Business Legal Name: [facility] Address: [address] [place] [address], [place] [address], Web Content Manager: Henry Monreal MD [facility] No.: [id number] Guard Captain POC Test Results from Pedro Ferrer Urine Dipstick (18:19:27) Urine leukocytes: 3+ MARCOS Urine nitrites: + NIT Urine urobilinogen: - URO Urine protein: 2+ PRO Urine pH: 6.0 pH Urine blood: trace BLO Urine specific gravity: 1.010 SG Urine ketones: - KET Urine bilirubin: - JOSI Urine glucose: - GLU ..................... ..................... ..................... ..................... ..................... ..................... ............... Guard Captain Note From Benijoselyn Pedro: Miss Ulrich is a 64-year-old female [...] is sent to [facility]. I consultative the [facility] will send prescription to pharmacy. Patient's family states they will picker feeder the prescription today. I educated Mrs. Ulrich [...] were given the opportunity to ask questions. [facility] Lab Orders: culture, urine: Performed ..................... ..................... ..................... ..................... ..................... ..................... ............... Disposition: Fulfilled Gerardo Lunsford MD [address] [place] [address],[address], [place], [address], [facility] 08/26/2024 20:23:43 08/21/2025 text/html ROS as noted in the [facility] CRC Nurse Triage Notes (Nancy Wadsworth): [...] 65 y.o female complains of Urinary Symptoms [employer] reporting symptoms. Foul smelling urine and new lower back pain since yesterday or the day before. Hot and cold on and off - denies fever. New lower back pain - 8-07/09. PRN tylenol w/ minimal effect. B/l flank [...] signs of when to seek emergency care. Guard Captain Organization Information for Kenneth Gonsales Business Legal Name: [employer]. Address: [address] [place] [address], Web Content Manager: Carlos Woody MD [facility] No.: [id number] Guard Captain POC Test Results from Kenneth Gonsales Urine Dipstick (12:42:41) Urine leukocytes: 70+MARCOS Urine nitrites: -NIT Urine urobilinogen: 0.2URO Urine protein: 0.3PRO Urine pH: 6.0pH Urine blood: -BLO Urine specific gravity: 1.010SG Urine ketones: 15KET Urine bilirubin: -JOSI Urine glucose: -GLU Attachments uploaded as part of this test result can be found under Documents section. ..................... ..................... ..................... ..................... ..................... ..................... ............... Guard Captain Note From Kenneth Gonsales: [facility] makes pt contact a 65 yo F CC of uti like symptoms for two days. [facility] obtains vital signs. PT provides a clean catch urine sample. [facility] performs urine dipstick test and collects specimen for the lab. PT [employer] explains pt for the past two days [...] hospital with IV antibiotics. No known allergies. [facility] contacts [facility] and explains above mentioned. [facility] not convinced it is a UTI. [facility] advises pt be seen in the hospital for a full work up and imaging of the kidneys or reach out to her PCP regarding follow up. PT would rather reach out to PCP. [facility] explains red flags such as worsening pain, unable to hold/void urine, new onset fever, sob, chest pain, n/v. That pt should then seek a higher level of care such as 911. PT understands. Culture to be dropped off at [facility]. [facility] clear. [facility] Lab Orders: culture, urine: Performed urinalysis, dipstick: Performed ..................... ..................... ..................... ..................... ..................... ..................... ............... [facility] Consulted: John Ferrer ..................... ..................... ..................... ..................... ..................... ..................... ............... Disposition: Fulfilled John Ferrer MD [address] [facility],[address], [place], [address], [employer] 08/21/2025 13:49:25 08/24/2025 text/html ROS as noted [...] Persistent Mental Illness (SPMI) PMH Reviewed at 08/24/2025 - :12 Allergies Reviewed at 08/24/2025:12 Comments: Called member [...] started on abx at the last visit. [employer] will be with member today. Member reported [...] to seek emergency care. Simran Hutchison RN Guard Captain Organization Information for Mauricio Souza - ALS Business Legal Name: [employer]. Address: [address] [place] [address], Web Content Manager: Carlos MYERS No.: [id number] Guard Captain POC Test Results from Mauricio Souza Urine Dipstick (12:00:18) Urine leukocytes: 70LEU Urine nitrites: -NIT Urine urobilinogen: 0.2URO Urine protein: 15PRO Urine pH: 6.0pH Urine blood: -BLO Urine specific gravity: 1.010SG Urine ketones: -KET Urine bilirubin: -JOSI Urine glucose: -GLU ..................... ..................... ..................... ..................... ..................... ..................... ............... Guard Captain Note From Mauricio Souza: [facility] responds to the listed address for a 65 yof w/ a c/c of UTI. Upon arrival on scene, pt is found seated in her recliner in the living area of her small and well-kept apartment. She is reclined w/ her feet up, alert, and tracks [facility] on approach. Her face is flushed, but she is otherwise generally well-appearing. No facial droop or one sided weakness are observed, no stridor sonorous respirations, or increased WOB are noted, and she is not bleeding anywhere. ELECTRICIAN HELPER AUTOMOTIVE is on scene to help w/ translation, as pt is Danish speaking only. Pt received a call from [facility] this morning informing her she was positive for UTI. Pt was seen by [facility] on of last week and UA/UC [...] was told to have another visit from [facility] today for a retest of UA [...] reported. Ddx: UTI, kidney infection, kidney stone [facility] obtains vital signs and pt is [...] Pt voided her bladder just prior to [facility] arrival, but caught the urine in a hat and left it for [facility] to test. [facility] performs UA and results are not convincing of UTI. 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 Pt agrees and chooses to be transported to [facility]. [place] [facility] [place]. [facility] is clear. Report completed by JAYY Souza [id number]. ..................... ..................... ..................... ..................... ..................... ..................... ............... [facility] Consulted: David Arroyo ..................... ..................... ..................... ..................... ..................... ..................... ............... 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 Rash started [...] during ER visit and was normal per ELECTRICIAN HELPER AUTOMOTIVE. I provided information on the mobile health provider response time and advised the patient and/or caregiver to monitor reported signs and symptoms. I discussed the warning signs of when to seek emergency care. ..................... ..................... ..................... ..................... ..................... ..................... ............... Guard Captain Note From Mauricio Souza: SC6 responds to [...] weakness and she is not bleeding anywhere. ELECTRICIAN HELPER AUTOMOTIVE is on scene to assist w/ translation and Hx. This [facility] provider sent pt to the ER two days ago to r/o kidney infection. ELECTRICIAN HELPER AUTOMOTIVE and pt tell [facility] she was placed [...] the infection was coming from, according to ELECTRICIAN HELPER AUTOMOTIVE. Pt was also given and has taken Morphine, 15mg Q6H. Ddx: abx reaction, morphine rxn [facility] immediately listens to lung sounds and [...] or welts are noted on pt's body. [facility] contacts [facility] and discusses the above. [facility] prescribes a 3-day prednisone taper and orders pt to stop taking the prescribed abx and to immediately call her PCP for an appointment. [facility] order 60mg PO for pt now. [facility] administers 20mg x3 tablets prednisone to pt PO. [facility] informs pt to contact her PCP and get and appointment [facility]. Pt and ELECTRICIAN HELPER AUTOMOTIVE are also advised to call 911 immediately if pt develops sob, wheezing, swelling of the lips, face, tongue or feels her throat is swelling, development of n/v/d, or abd pain, as these are all signs of serious allergic reaction. Both give their verbal understanding. [facility] ensures pt has no further questions and she is left in stable condition. [facility] is clear. Report completed by JAYY Souza [id number]. [facility] Medication Orders: prednisone 20 mg tablet: Administered ..................... ..................... ..................... ..................... ..................... ..................... ............... [facility] Consulted: Heide Silva ..................... ..................... ..................... ..................... ..................... ..................... ............... Disposition: Fulfilled Heide Silva MD [address] [place] [address],[address] [facility], [place], [address] [[email or web address]] [facility] 08/26/2025 19:25:50 08/28/2025 text/html ROS as noted in the HPI [...] days w/ no effect. No creams prescribed. ELECTRICIAN HELPER AUTOMOTIVE using hydrocortisone and Benadryl cream with no [...] signs of when to seek emergency care. Guard Captain Organization Information for Bernard Porter [employer] Legal Name: [facility] Address: [address] [place] [address], [place] [address], Web Content Manager: Henry MYERS No.: [id number] Guard Captain POC Test Results from Bernard Porter Urine Dipstick (10:55:41) Urine leukocytes: -MARCOS Urine nitrites: -NIT Urine urobilinogen: 0.2URO Urine protein: -PRO Urine pH: 5.0pH Urine blood: -BLO Urine specific gravity: 1.005SG Urine ketones: -KET Urine bilirubin: -JOSI Urine glucose: -GLU ..................... ..................... ..................... ..................... ..................... ..................... ............... Guard Captain Note From Bernard Porter: Patient alert and [...] next several days. Family with patient throughout. [facility] Lab Orders: urinalysis, dipstick: Performed [facility] Medication Orders: prednisone 20 mg tablet: Performed ..................... ..................... ..................... ..................... ..................... ..................... ............... [facility] Consulted: Marta Zambrano ..................... ..................... ..................... ..................... ..................... ..................... ............... Disposition: Fulfilled MARTA ZAMBRANO MD [address] [place] [address],[address], [place], [phone], [facility] 08/28/2025 16:03:46 OBGyn Episode No OBEpisode recorded.
== END 2025-09-10 10:07 | disposition home or self-care (01) ==
LOC: HO.HMCH 09:14
PROVIDERS: PCP Internal Medicine; Visit Provider Internal Medicine
DX: I42.9 Cardiomyopathy, unspecified (principal); F31.9 Bipolar disorder, unspecified; E66.01 Morbid (severe) obesity due to excess calories; Z68.42 Body mass index [BMI] 45.0-49.9, adult; E03.9 Hypothyroidism, unspecified; K59.01 Slow transit constipation; N39.0 Urinary tract infection, site not specified; M53.3 Sacrococcygeal disorders, not elsewhere classified

== ENCOUNTER 2025-09-10 11:01 | Outpatient (REF) | payer OTHER, SELFPAY ==
--- NOTE | ~2025-09-10 | CT_ITS ---
EXAMINATION: CT ANGIOGRAM CHEST CLINICAL INFORMATION: Pulmonary emboli June 25, 2025 COMPARISON: August 31 and June 25, 2025 TECHNIQUE: Multiple axial images were obtained through the chest after the administration of 65 mL of Omnipaque 350 intravenous contrast. Extensive vascular post-processing including two-dimensional and three-dimensional reformatted images were created and reviewed on an independent workstation. This CT examination was performed using dose optimization techniques as appropriate, variously including the following: *Automated exposure control *Adjustment of mA and/or kV according to patient size (this includes techniques or standardized protocols for targeted exams where dose is matched to indication/reason for exam; i.e. extremities or head) *Use of iterative reconstruction technique FINDINGS: QUALITY OF STUDY/CONTRAST BOLUS: Adequate PULMONARY ARTERIES: No filling defects are identified in the pulmonary arteries. THORACIC AORTA: No aneurysm or dissection. Minimal atherosclerotic calcifications are present. LUNGS AND PLEURA: There is mild dependent atelectasis with groundglass and linear densities in the posterior lungs. There is no pleural effusion. MEDIASTINUM: There are shotty paratracheal lymph nodes. The esophagus is distended with gas throughout the mediastinum. CORONARY ARTERY CALCIFICATION: There are likely calcifications but the coronary arteries are non-well demonstrated due to motion CHEST WALL/AXILLA: No axillary or internal mammary lymphadenopathy. UPPER ABDOMEN: Unremarkable BONES: Moderate degenerative changes are present throughout the thoracic spine. CT/CT angio chest PE protocol IMPRESSION: There are no filling defects to suggest pulmonary embolus. A entirety of the esophagus is distended with gas/air raising suspicion of hypomotility. Fleischner guidelines were followed. Electronically signed by: Yunier Landry MD 09/10/2025 01:28 PM LORI
[2025-09-10] MEDS: iohexoL 350 MG/ML 100 ML INFUS..BTL 65 ML IV (13:09)
== END 2025-09-10 11:02 | disposition home or self-care (01) ==
LOC: HO.CT 11:01
PROVIDERS: PCP Internal Medicine; Visit Provider Hospitalist
DX: I26.94 Multiple subsegmental thrombotic pulmonary emboli without acute cor pulmonale (principal); I42.9 Cardiomyopathy, unspecified; F31.9 Bipolar disorder, unspecified; E03.9 Hypothyroidism, unspecified; E66.01 Morbid (severe) obesity due to excess calories; K59.01 Slow transit constipation; N39.0 Urinary tract infection, site not specified; M53.3 Sacrococcygeal disorders, not elsewhere classified
CPT/HCPCS: 71275; Q9967

== ENCOUNTER → 2025-09-10 11:03 | Outpatient (BNV) | payer OTHER, SELFPAY | PROVIDERS: PCP Internal Medicine; Visit Provider Radiology Diagnostic Radiology | DX: I26.94 Multiple subsegmental thrombotic pulmonary emboli without acute cor pulmonale (principal) | CPT/HCPCS: 71275 ==

== ENCOUNTER 2025-09-23 06:15 | Outpatient (REF) | payer OTHER, SELFPAY ==
--- NOTE | ~2025-09-23 | FL_ITS ---
EXAMINATION: FL GUIDANCE ONLY HISTORY: M46.1 - Sacroiliitis, not elsewhere classified COMPARISON: None available. TECHNIQUE: Fluoroscopy time: 17 seconds. Cumulative Dose: 5.50 mGy. DAP: 1178.10 mGycm2 Images: 2. FINDINGS: Fluoroscopic spot films of the right hemipelvis demonstrate a needle and contrast material in the region of the sacroiliac joint. FL/FL guidance in treatment room IMPRESSION: Fluoroscopy during procedure. Please see procedure report for additional information. Electronically signed by: Power Nunez MD 09/23/2025 01:07 PM LORI
--- OUTSIDE RECORDS SUMMARY | 2025-09-23 06:17 | XMS_ITS | Encounter Summary ---
Author Organization [facility] Address [address] [place] [address] Phone Care Team Providers Care Lead Pressman [employer] Name Role Phone Pcp, Unknown Primary Care Provider Unavailabl e Encounter Details Date Type Department Care Team (Late st Contact Info) Description 06/20/2020 Transcribe Orders [facility] Specimen Processing [address] [place] [address] Anton Stoddard MD [address] [facility] [address], [address] [place] [address] [email or web address] Encounter for screening laboratory testing for COVID-19 [...] AM EDT) Specimen Source/Descriptio n NASOPHARYNGEAL SWAB [facility] Comment NASOPHARYNGEAL SWAB [facility] SARS-CoV 2 (COVID-19) PCR Not Detected Not Detected [facility] Comment: Negative results do not preclude [...] ORDERABLE S Final Result Performing Organization Address City/[facility]/ZIP Co de Phone Number [address] [address] * COVID-19 PCR Order (06/20/2020 8:00 AM EDT) Specimen Source NASOPHARYNGEAL SWAB (OFFICE MESSENGER) [facility] COVID Testing Status Sent to [facility] Micro [facility] Other 06/20/2020 8:00 AM EDT 06/20/2020 11:46 AM EDT us Anton Stoddard MD LAB GENERAL ORDERABLES Final Res ult Performing Organization Address City/[facility] Co de Phone Number [address] [address] documented in this encounter Visit Diagnoses Diagnosis Encounter for screening laboratory testing for COVID-19 virus- Primary documented in this encounter Additional Health Concerns Infection Onset Date Last Indicated Resolved Time CoV-Exposed Comment:Recent close contact 06/18/2020 06/18/2020 07/02/2020 1:24 AM EDT CoV-Exposed Comment:Recent close contact 07/10/2020 07/10/2020 07/24/2020 1:23 AM EDT documented as of this encounter Care Teams Lead Pressman [employer] Relationship Specialty Start Date End Date Pcp, Unknown PCP - General 05/20/20 documented as of this encounter Additional Source Comments The information contained in this document represents components of the legal health record. It is not the complete legal health record.[facility]
--- OUTSIDE RECORDS SUMMARY | 2025-09-23 06:17 | XMS_ITS | Continuity of Care Document ---
Author Organization [facility] [employer] [facility] Address [address] [place] [phone] Care Team Providers Care Laborer Pipelines Name Role Phone DICKSON SAEZ Primary Care Provider HIM CCA OTHER Assessment No assessment recorded. Plan of Treatment Reminders Order Date Submit Date Provider Last Modified By Organization Details Last Modified Time Details Appointments None recorded. Lab urinalysis , dipstick 2024 025 [facility], [address] [place] [address], [phone] 14:29:02 Referral None recorded. Procedures None recorded. Surgeries [...] [facility] ([facility]) [address] [place], [address], 08/23/2025 18:05:32 08/21/2008/23/2025 URINE CULTU RE, UROLO GY SAKINA P result 1 COMMEN T Mixed uroge nital lizeth 10,00 0-25, 000 colon y formi ng units per mL Not Available [facility] ([facility]) [address] [place], [address], 08/23/2025 18:05:32 08/21/2008/21/2025 ONE SPECI MEN IDENT IFIER one specimen identifier Commen t The speci men recei jillian inclu ded only one patie nt ident ifier on the prima ry colle ction conta iner. Our labor at[facility] All prima ry speci men conta iners must be label ed with 2 ident ifier s at the time of colle ction . Not Available [facility] ([facility]) [address] [facility], [place], [address], 08/22/2025 20:06:16 Result Notes None recorded. Medical Equipment None Reported. Allergies Allergen ID Allergen Name Allergen Category Reaction Reaction Severity Criticality Documentation Date Start Date Code Code System Note Provider Name and Address Organization Details Recorded Time cefuroxim e Not available Not available Not available Not available 08/26/20252193 RxNorm Not Available [facility] - production 09:44:16 [...] temperature Respiratory rate Heart rate Oxygen saturation Body height Systolic blood pressure Provider Name and Address Organization Details Last Updated DateTime 5 287819. 224 g 98.3 [degF] 20 /min 87 /min 99 % 154.94 cm 118 mm[Hg] Not Available [facility] production 12:03:28 Social History None recorded. Functional Status None recorded. Mental Status None recorded. Family History Nothing Reported. Medical History No medical history recorded. Gynecological HistoryNo gynecological history recorded. Obstetrics History GPAL:G 0 P 0 0 0 0 Past Encounters Encounter ID Performer Location Encounter Start Date Encounter Closed Date Diagnosis/Indication Diagnosis SNOMED-CT Code Diagnosis ICD10 Code Diagnosis IMO Codes Diagnosis Note [id number] John Ferrer MD [facility] [address] [address] 08/21/2025 12:52:47 08/21/2025 14:31:53 Acute low back pain 903177270 M54.50 [id number] Francisco Javier Arrooy MD [address] [address] 08/24/2025 12:03:23 08/24/2025 21:36:47 Flank pain [id number] R10.A3 [id number] Patient seen a few days prior with flank pain and had advised to go to the ED. Recent Urine culture with mixed lizeth from 3 days prior; currently positive LE but neg nitrite. Given 10/10 flank pain for many days, advised to go to ED for imaging and patient agrees. Health Concerns Section Related Observation LastModified by Organization Detai ls LastModified Time None Recorded Concern Status LastModified by Organization Details LastModified Time None Recorded Payers Encounter Date Sequence Insurance Name Policy Number Policy Burnham Covered Member ID Burnham Member ID Guarantor Name 08/24/2025 1 [facility] - DOS ON OR AFTER 2023 - DUAL ELIGIBLE - LONG TERM OPTIONS AND ONE CARE (MEDICARE REPLACEMENT/ADV ANTAGE - HMO) Gracy Mead [id number] Gracy Mead Notes Date Note Type Note Provider Name and Address Organization Details Recorded Time 08/24/2025 text/html ROS as noted in the [facility] CRC Nurse Triage Notes (Holly Hutchison): Reason [...] started on abx at the last visit. TELECOM ASSISTANT will be with member today. Member reported [...] to seek emergency care. Simran Hutchison RN Crisis Clinician Organization Information for Mauricio Souza Business Legal Name: [employer] Address: [address] [place] [address], Waste Water Operator: Carlos Woody MD CLIA No.: [id number] Crisis Clinician POC Test Results from Mauricio Souza Urine Dipstick (12:00:18) Urine leukocytes: 70LEU Urine nitrites: -NIT Urine urobilinogen: 0.2URO Urine protein: 15PRO Urine pH: 6.0pH Urine blood: -BLO Urine specific gravity: 1.010SG Urine ketones: -KET Urine bilirubin: -JOSI Urine glucose: -GLU .................. .................. .................. .................. .................. .................. .................. ............... Crisis Clinician Note From Mauricio Souza: SC6 responds to the listed address for a 65 yof w/ a c/c of UTI. Upon arrival on scene, pt is found seated in her recliner in the living area of her small and well-kept apartment. She is reclined w/ her feet up, alert, and tracks [facility] on approach. Her face is flushed, but she is otherwise generally well-appearing. No facial droop or one sided weakness are observed, no stridor sonorous respirations, or increased WOB are noted, and she is not bleeding anywhere. TELECOM ASSISTANT is on scene to help w/ translation, as pt is Ethiopian speaking only. Pt received a call from [facility] this morning informing her she was positive for UTI. Pt was seen by [facility] on of last week and UA/UC was [...] was told to have another visit from [facility] today for a retest of UA and [...] reported. Ddx: UTI, kidney infection, kidney stone [facility] obtains vital signs and pt is assessed. [...] Pt voided her bladder just prior to [facility] arrival, but caught the urine in a hat and left it for [facility] to test. [facility] performs UA and results are not convincing of UTI. 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 Pt agrees and chooses to be transported to [facility]. Pt is transported to [facility] [place]. [facility] is clear. Report completed by JAYY Souza [id number]. .................. .................. .................. .................. .................. .................. .................. ............... [facility] Consulted: David Arroyo .................. .................. .................. .................. .................. .................. .................. ............... Disposition: Liban Arroyo MD [address] [facility],[address], [place], [address], [employer] 08/24/2025 14:24:05 OBGyn Episode No OBEpisode recorded.
--- OUTSIDE RECORDS SUMMARY | 2025-09-23 06:17 | XMS_ITS | Clinical Summary ---
Author Organization [facility] Address [address] [address] Phone Care Team Providers Care Aircraft Systems Technician Name Role Phone Pcp, Unknown Primary Care [...] on file Insurance MEDICARE REPLACEMENT [place] [id number] MEDICARE REPLACEMENT [place] [id number] MEDICARE REPLACEMENT MEDICARE REPLACEMENT MEDICARE REPLACEMENT MEDICARE REPLACEMENT MEDICARE REPLACEMENT MEDICARE [place] [address] [place] [address] [employer] MEDICARE REPLACEMENT [place] [id number] Care Teams Aircraft Systems Technician Relationship Specialty Start Date End Date Pcp, Unknown PCP - General 05/20/20 Additional Source Comments The information contained in this document represents components of the legal health record. It is not the complete legal health record.[facility]
--- OUTSIDE RECORDS SUMMARY | 2025-09-23 06:17 | XMS_ITS | Continuity of Care Document ---
Author Organization [employer] [facility], [facility] Address [address] [place] [address] Care Team Providers Care Ornamental Metal Worker Name Role Phone DICKSON SAEZ Primary Care Provider HIM JOCELYN OTHER Assessment Encounter Date Assessment Date Assessment LastModified by Organization Details LastModified Time 08/21/2025 08/21/2025 Impression: 65yo/f referred by METAL MIXER for urinary symptoms and back pain. Patient with multiple chronic medical conditions as above, states for the past 2-3 days has been having worsening back pain symptoms, initially seemed to localize to one side, today describing bilateral back/flank pain. METAL MIXER has noticed increased odor to urine, but [...] demonstrate a UTI or pyelonephritis. Patient and METAL MIXER feel these symptoms are new in the last 2-3 days. I advised that for full evaluation I would recommend patient be transferred to [facility] ED for further evaluation and treatment including consideration of diagnostic imaging. Patient and METAL MIXER are declining at this time, stating they would prefer to discuss with PCP first. Advised to seek care immediately with any acute worsening or change in symptoms which they understand. [email or web address] Not available 08/21/2025 13:25:07 Plan of Treatment Reminders Order Date Submit Date Provider Last Modified By Organization Details Last Modified Time Details Appointments None recorded. Lab culture, urine 2024 [place] [facility] (Centralized Electronic Ordering - All Locations), Patient Can Go To The Location Of Their Choice, [id number] 20:06:15 urinalysis , dipstick 2024 [facility], [address] [place] [address], [id number] 14:08:49 Referral None recorded. Procedures None recorded. [...] urology workup Final report Not Available [facility] ([facility]) [address] [facility] [address], [place], [address], 08/23/2025 18:05:32 08/21/2008/23/2025 URINE CULTU RE, UROLO GY SAKINA P result 1 COMMEN T Mixed uroge nital lizeth 10,00 0-25, 000 colon y formi ng units per mL Not Available [facility] ([facility]) [address] [facility] [address], [place], [address], 08/23/2025 18:05:32 08/21/2008/21/2025 ONE SPECI MEN IDENT [...] of colle ction . Not Available [facility] ([facility]) [address], [place], [address], 08/22/2025 20:06:16 Result Notes None recorded. Medical Equipment None Reported. Allergies Allergen ID Allergen Name Allergen Category Reaction Reaction Severity Criticality Documentation Date Start Date Code Code System Note Provider Name and Address Organization Details Recorded Time 89609 cefuroxim e Not available Not available Not [...] t Available Vitals Date Recorded Oxygen saturation Heart rate Body weight Body height Body temperature Respiratory rate Systolic And Diastolic Provider Name and Address Organization Details Last Updated DateTime 5 99 % 102 /min 371745. 224 g 154.94 cm 98.1 [degF] 16 /min 134/79 mm[Hg] Not Available [facility] - production 5 12:52:55 Social History None recorded. Functional Status None recorded. Mental Status None recorded. Family History Nothing Reported. Medical History No medical history recorded. Gynecological HistoryNo gynecological history recorded. Obstetrics History GPAL:G 0 P 0 0 0 0 Past Encounters Encounter ID Performer Location Encounter Start Date Encounter Closed Date Diagnosis/Indication Diagnosis SNOMED-CT Code Diagnosis ICD10 Code Diagnosis IMO Codes Diagnosis Note [id number] John Ferrer MD [facility] ED Medical [facility] [address] [place] [address] 08/21/2025 12:52:47 08/21/2025 14:31:53 Acute low back pain 015848849 M54.50 [id number] Health Concerns Section Related Observation LastModified by Organization Detai ls LastModified Time None Recorded Concern Status LastModified by Organization Details LastModified Time None Recorded Payers Encounter Date Sequence Insurance Name Policy Number Policy Burnham Covered Member ID Burnham Member ID Guarantor Name 08/21/2025 1 [facility] - DOS ON OR AFTER 2023 - DUAL ELIGIBLE - CORRECTION OPTIONS AND ONE CARE (MEDICARE REPLACEMENT/ADV ANTAGE - HMO) Gracy Mead [id number] Gracy Mead Notes Date Note Type Note Provider Name and Address Organization Details Recorded Time 08/21/2025 text/html ROS as noted in the [facility] Nurse Triage Notes (Nancy Wadsworth): Reason [...] 65 y.o female complains of Urinary Symptoms METAL MIXER reporting symptoms. Foul smelling urine and new [...] signs of when to seek emergency care. Documentation Specialist Organization Information for Kenneth Gonsales Business Legal Name: [employer]. Address: [address] [place] [address], Punchboard Inserter: Carlos Woody MD AYESHA No.: [id number] Documentation Specialist POC Test Results from Kenneth Gonsales Urine Dipstick (12:42:41) Urine leukocytes: 70+MARCOS Urine nitrites: -NIT Urine urobilinogen: 0.2URO Urine protein: 0.3PRO Urine pH: 6.0pH Urine blood: -BLO Urine specific gravity: 1.010SG Urine ketones: 15KET Urine bilirubin: -JOSI Urine glucose: -GLU Attachments uploaded as part of this test result can be found under Documents section. ..................... ..................... ..................... ..................... ..................... ..................... ............... Documentation Specialist Note From Kenneth Gonsales: [facility] makes pt contact a 65 yo F CC of uti like symptoms for two days. [facility] obtains vital signs. PT provides a clean catch urine sample. [facility] performs urine dipstick test and collects specimen for the lab. PT METAL MIXER explains pt for the past two days [...] hospital with IV antibiotics. No known allergies. [facility] contacts [facility] and explains above mentioned. [facility] not convinced it is a UTI. [facility] advises pt be seen in the hospital for a full work up and imaging of the kidneys or reach out to her PCP regarding follow up. PT would rather reach out to PCP. [facility] explains red flags such as worsening pain, unable to hold/void urine, new onset fever, sob, chest pain, n/v. That pt should then seek a higher level of care such as 911. PT understands. Culture to be dropped off at [facility]. [facility] clear. [facility] Lab Orders: culture, urine: Performed urinalysis, dipstick: Performed ..................... ..................... ..................... ..................... ..................... ..................... ............... [facility] Consulted: John Ferrer ..................... ..................... ..................... ..................... ..................... ..................... ............... Disposition: Fulfilled John Ferrer MD [address] [facility],[address], [place], [address], [employer] 08/21/2025 13:49:25 OBGyn Episode No OBEpisode recorded.
--- OUTSIDE RECORDS SUMMARY | 2025-09-23 06:17 | XMS_ITS | Continuity of Care Document ---
Author Organization [employer] [facility], 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 I have reviewed and agree with the Assessment and Plan as documented by the Safety Person. Patient given the opportunity to ask questions. [...] facial, tongue swelling, SOB, CP, BARRY. Per post anesthesia care unit nurse on the scene, VSS, please see uploaded pictures Please read the post anesthesia care unit nurse note for their exam findings. Impression: Drug [...] Orders prednisone 20 mg tablet 2024 025 [facility] #[id number], [address] [place], [address], 05:01:11 prednisone 20 mg tablet 2024 025 [facility] #[id number], [address] [place], [address], 05:01:11 Patient TargetsNo targets recorded. Patient InstructionsNo instructions recorded. Reason for Referral None Reported. Results Created Date Observation Date Name Description Value Unit Range Abnormal Flag Note LastModifiedBy Organization Detail LastModifiedTime 08/21/2008/23/2025 URINE CULTU RE, UROLO GY SAKINA P urine culture, urology workup Final report Not Available [facility] ([facility]) [address] [facility], [place], [address], 08/23/2025 18:05:32 08/21/2008/23/2025 URINE CULTU RE, UROLO GY SAKINA P result 1 COMMEN T Mixed uroge nital lizeth 10,00 0-25, 000 colon y formi ng units per mL Not Available [facility] ([facility]) [address] [facility], [place], [address], 08/23/2025 18:05:32 08/21/2008/21/2025 ONE SPECI MEN IDENT [...] Not Available [facility] ([facility]) [address] [facility], [place], [address], 08/22/2025 20:06:16 Result Notes None recorded. Medical Equipment None Reported. Allergies Allergen ID Allergen Name Allergen Category Reaction Reaction Severity Criticality Documentation Date Start Date Code Code System Note Provider Name and Address Organization Details Recorded Time 19024 cefuroxim e Not available Not available Not [...] rate Body height Heart rate Oxygen saturation Systolic And Diastolic Provider Name and Address Organization Details Last Updated DateTime 5 708430. 224 g 98.3 [degF] 18 /min 154.94 cm 102 /min 96 % 130/83 mm[Hg] Not Available [facility] [...] ICD10 Code Diagnosis IMO Codes Diagnosis Note [id number] John Ferrer MD [facility] [address] [address] 08/21/2025 12:52:47 08/21/2025 14:31:53 Acute low back pain [id number] M54.50 [id number] Francisco Javier Arroyo MD [address] [address] 08/24/2025 12:03:23 08/24/2025 21:36:47 Flank pain [id number] R10.A3 [id number] Patient seen a few days prior with flank pain and had advised to go to the ED. Recent Urine culture with mixed lizeth from 3 days prior; currently positive LE but neg nitrite. Given 08/08 flank pain for many days, advised to go to ED for imaging and patient agrees. [id number] Heide Silva MD [address] [address] 08/26/2025 16:41:55 08/27/2025 11:47:33 Pruritic rash 65102600 L28.2 163729 Pruritic d isorder of skin 1751501592 L29.9 46320 Health Concerns Section Related Observation LastModified by Organization Detai ls LastModified Time None Recorded Concern Status LastModified by Organization Details LastModified Time None Recorded Payers Encounter Date Sequence Insurance Name Policy Number Policy Burnham Covered Member ID Burnham Member ID Guarantor Name 08/26/2025 1 [facility] - DOS ON OR AFTER 2023 - DUAL ELIGIBLE - LONG-TERM OPTIONS AND ONE CARE (MEDICARE REPLACEMENT/ADV ANTAGE - HMO) Gracy Mead [id number] Gracy Mead Notes Date Note Type Note [...] Persistent Mental Illness (SPMI) PMH Reviewed at 08/26/2025: Allergies Reviewed at 08/26/2025:42 Comments: 65 y.o female complains of Rash HOSPITAL COORDINATOR reporting rash starting yesterday night. Rash started [...] during ER visit and was normal per HOSPITAL COORDINATOR. I provided information on the mobile health provider response time and advised the patient and/or caregiver to monitor reported signs and symptoms. I discussed the warning signs of when to seek emergency care. ..................... ..................... ..................... ..................... ..................... ..................... ............... Safety Person Note From Mauricio Souza: SC6 responds to [...] weakness and she is not bleeding anywhere. HOSPITAL COORDINATOR is on scene to assist w/ translation and Hx. This [facility] provider sent pt to the ER two days ago to r/o kidney infection. HOSPITAL COORDINATOR and pt tell MI she was placed [...] the infection was coming from, according to HOSPITAL COORDINATOR. Pt was also given and has taken Morphine, 15mg Q6H. Ddx: abx reaction, morphine rxn [facility] immediately listens to lung sounds and [...] or welts are noted on pt's body. [facility] contacts [facility] and discusses the above. [facility] prescribes a 3-day prednisone taper and orders pt to stop taking the prescribed abx and to immediately call her PCP for an appointment. [facility] order 60mg PO for pt now. [facility] administers 20mg x3 tablets prednisone to pt PO. [facility] informs pt to contact her PCP and get and appointment ERIK. Pt and HOSPITAL COORDINATOR are also advised to call 911 immediately if pt develops sob, wheezing, swelling of the lips, face, tongue or feels her throat is swelling, development of n/v/d, or abd pain, as these are all signs of serious allergic reaction. Both give their verbal understanding. [facility] ensures pt has no further questions and she is left in stable condition. MI is clear. Report completed by JAYY Souza [id number]. [facility] Medication Orders: prednisone 20 mg tablet: Administered ..................... ..................... ..................... ..................... ..................... ..................... ............... [facility] Consulted: Heide Silva ..................... ..................... ..................... ..................... ..................... ..................... ............... Disposition: Fulfilled Heide Silva MD [address] [facility],[address], [place], [address], [employer] 08/26/2025 19:25:50 OBGyn Episode No OBEpisode recorded.
--- OUTSIDE RECORDS SUMMARY | 2025-09-23 06:17 | XMS_ITS | Data Portability ---
Author Organization [facility], [facility] Address [address] [place] [address] Care Team Providers Care News Content Specialist Name Role Phone DICKSON SAEZ Primary Care Provider HIM JOCELYN OTHER Assessment Encounter Date Assessment Date Assessment LastModified by Organization Details LastModified Time 08/26/2024 08/26/2024 As noted, we wer e called to see this patient regarding concerns of dysuriaEvaluation in the field was performed by my heel seat trimmer colleague, as noted above, I provided real-time [...] worsening serious symptoms, particularly flank pian, fever. [email or web address] Not available 08/26/2024 20:23:21 08/21/2025 08/21/2025 Impression: 65yo/f referred by HAND BUNCH MAKER for urinary symptoms and back pain. Patient with multiple chronic medical conditions as above, states for the past 2-3 days has been having worsening back pain symptoms, initially seemed to localize to one side, today describing bilateral back/flank pain. HAND BUNCH MAKER has noticed increased odor to urine, but [...] demonstrate a UTI or pyelonephritis. Patient and HAND BUNCH MAKER feel these symptoms are new in the last 2-3 days. I advised that for full evaluation I would recommend patient be transferred to [facility] ED for further evaluation and treatment including consideration of diagnostic imaging. Patient and HAND BUNCH MAKER are declining at this time, stating they would prefer to discuss with PCP first. Advised to seek care immediately with any acute worsening or change in symptoms which they understand. [email or web address] Not available 08/21/2025 13:25:07 08/26/2025 08/26/2025 I provided real -time medical direction via phone for this encounter and was available for additional phone-based assistance as needed. I have reviewed and agree with the Assessment and Plan as documented by the Vehicle Calibration Engineer. Patient given the opportunity to ask questions. [...] facial, tongue swelling, SOB, CP, BARRY. Per heel seat trimmer on the scene, VSS, please see uploaded pictures Please read the heel seat trimmer note for their exam findings. Impression: Drug [...] in the field was performed by my heel seat trimmer colleague, as noted above, I provided real-time [...] . By the instead team and prescribed [id number] mg PO for a total of three [...] the emergency department. This was based on [email or web address] Not available 08/28/2025 11:20:37 Plan of Treatment Reminders Order Date Submit Date Provider Last Modified By Organization Details Last Modified Time Details Appointments None recorded. Lab urinalysis, dipstick 2024 [facility], [address] [place] [address], [id number] 16:08:37 urinalysis, dipstick 2024 025 [facility], [address] [place] [address], [id number] 14:29:02 culture, urine 2024 025 MAG[facility] (Centralized Electronic Ordering - All Locations), Patient Can Go To The Location Of Their Choice, [id number] 5 20:06:15 urinalysis, dipstick 2024 025 [facility], [address] [place] [address], [id number] 14:08:49 culture, urine 2023 024 MAGDY [facility] (Centralized Electronic Ordering - All Locations), Patient Can Go To The Location Of Their Choice, [id number] 4 10:06:26 urinalysis, dipstick 2023 024 [email or web address] [facility], [address] [place] [address], [id number] 4 20:23:24 Referral None recorded. Procedures None recorded. Surgeries None recorded. Imaging None recorded. Medication Orders prednisone 20 mg tablet 2024 025 [id number] [address] [place], [address], 5 05:01:11 prednisone 20 mg tablet 2024 025 [id number] [address] [place], [address], 5 05:01:11 prednisone 20 mg tablet 2024 025 [facility] [address] [place], [address], 5 05:01:11 prednisone 20 mg tablet 2024 025 [facility] [address] [place], [address], 5 05:01:11 cefpodoxime 200 mg tablet 2023 024 [id number], [address] [place] [address], [address], 4 18:25:11 Patient TargetsNo targets recorded. Patient InstructionsNo instructions recorded. Reason for Referral None Reported. Results Created Date Observation Date Name Description Value Unit Range Abnormal Flag Note LastModifiedBy Organization Detail LastModifiedTime 08/26/2008/29/2024 URINE CULTU RE,CO MPREH ENSIV E urine culture,comp rehensive Final report Not Available [facility] ([facility]) [address] [facility], [place], [address], 08/29/2024 10:06:37 08/26/2008/29/2024 URINE CULTU RE,CO MPREH ENSIV E result 1 COMMEN T No growt h in 36 - 48 hours . Not Available [facility] ([facility]) [address] [facility], [place], [address], 08/29/2024 10:06:37 08/21/2008/23/2025 URINE CULTU RE, UROLO GY SAKINA P urine culture, urology workup Final report Not Available [facility] ([facility]) [address] [facility], [place], [address], 08/23/2025 18:05:32 08/21/2008/23/2025 URINE CULTU RE, UROLO GY SAKINA P result 1 COMMEN T Mixed uroge nital lizeth 10,00 0-25, 000 colon y formi ng units per mL Not Available [facility] ([facility]) [address] [facility], [place], [address], 08/23/2025 18:05:32 08/21/2008/21/2025 ONE SPECI MEN IDENT [...] of colle ction . Not Available [facility] ([facility]) [address] [facility], [place], [address], 08/22/2025 20:06:16 Result Notes None recorded. Medical Equipment None Reported. Allergies Allergen ID Allergen Name Allergen Category Reaction Reaction Severity Criticality Documentation Date Start Date Code Code System Note Provider Name and Address Organization Details Recorded Time 89978 cefuroxim e Not available Not available Not [...] Updated DateTime 5 99 % 102 /min 515358. 224 g 154.94 cm 98.1 [degF] 16 /min 134/79 mm[Hg] Not Available [facility] - production 5 12:52:55 Date Recorded Body weight Body temperature Respiratory rate Heart rate Oxygen saturation Body height Systolic blood pressure Provider Name and Address Organization Details Last Updated DateTime 5 793349. 224 g 98.3 [degF] 20 /min 87 /min 99 % 154.94 cm 118 mm[Hg] Not Available [facility] - production 5 12:03:28 Date Recorded Heart rate Body temperature Oxygen saturation Respiratory rate Systolic And Diastolic Provider Name and Address Organization Details Last Updated DateTime 4 91 /min 98.8 [degF] 100 % 16 /min 128/88 mm[Hg] Not Available [facility] - production 4 18:22:11 Date Recorded Body weight Body temperature Respiratory rate Body height Heart rate Oxygen saturation Systolic And Diastolic Provider Name and Address Organization Details Last Updated DateTime 5 382623. 224 g 98.3 [degF] 18 /min 154.94 cm 102 /min 96 % 130/83 mm[Hg] Not Available [facility] 16:42:05 Date Recorded Heart rate Body weight Body temperature Respiratory rate Body height Oxygen saturation Systolic And Diastolic Provider Name and Address Organization Details Last Updated DateTime 5 94 /min 67957.4 g 99.1 [degF] 14 /min 157.48 cm 98 % 132/84 mm[Hg] Not Available [facility] - production 11:00:59 Social History None recorded. [...] 1126 Surya Acevedo MD Main - [facility] [address] [place] [address] 02/18/2022 14:31:32 07/07/2022 13:35:00 Periorbital edema 24546087 H05.229 62yo woman evaluated for months of [...] 1140 Eden Coronado MD Main - [facility] [address] [place] [address] 02/19/2022 09:58:40 07/05/2022 15:20:25 Dysuria 44252974 R30.9 Pt with hx prior UTIs (though [...] assessment and plan as documented by the heel seat trimmer. I provided real time medical direction for this encounter and was immediatel y available to provide additional phone based assistance as needed. Periorbital edema 648165 00 H05.229 Symptoms persist since last [facility] visit, continuing on allergy tx. urine dip today w/o protein to suggest nephrotic syndomre, recommend PCP f/up for allergy testing/tx . Urine dip also w/ trace ketones but no hx diabetes and normal PO intake, likely contaminat ion from adjacent test strip. F/up formal urinalysis 1495 Kenneth Castellon MD [facility] - [address] [address] 03/10/2022 11:36:32 07/06/2022 14:33:02 Pruritic rash 98002256 L28.2 4072 Braydon Recio MD [address] [address] 07/18/2022 17:25:40 07/22/2022 13:31:39 Pruritic rash 65061869 L28.2 [id number] Gerardo Lunsford MD [address] [address] 08/26/2024 18:22:09 08/26/2024 21:57:44 Acute urinary tract infection 956977863 N39.0 91039 John Ferrer MD [facility] Medical [address] [address] 08/21/2025 12:52:47 08/21/2025 14:31:53 Acute low back pain 346587512 M54.50 [id number] 62820 Francisco Javier Arroyo MD [facility] Medical [address] [address] 08/24/2025 12:03:23 08/24/2025 21:36:47 Flank pain 576449082 R10.A3 118313 Patient seen a few days prior with flank pain and had advised to go to the ED. Recent Urine culture with mixed lizeth from 3 days prior; currently positive LE but neg nitrite. Given 10/ flank pain for many days, advised to go to ED for imaging and patient agrees. [id number] Heide Silva MD [facility] ED Medical [address] [address] 08/26/2025 16:41:55 08/27/2025 11:47:33 Pruritic rash 22383824 L28.2 [id number] Pruritic d isorder of skin 7199236621 L29.9 43881 21480 MARTA ZAMBRANO MD [facility] ED Medical [address] [address] 08/28/2025 11:00:53 08/28/2025 19:00:03 Acute allergic reaction 976212304 T78.40XD [id number] Eruption c aused by drug 45035959 L27.0 [id number] Health Concerns Section Related Observation LastModified by Organization Detai ls LastModified Time None Recorded Concern Status LastModified by Organization Details LastModified Time None Recorded Advance Directives Directive None Recorded Payers Insurance Date Sequence Insurance Name Policy Number Policy Burnham Covered Member ID Burnham Member ID Guarantor Name 08/26/2024 1 [facility] - DOS PRIOR TO 2023 - DUAL ELIGIBLE (MEDICARE REPLACEMENT/ADV ANTAGE - HMO) Gracy Robertsy [id number] Gracy Mead 08/28/2025 1 [facility] - DOS ON OR AFTER 2023 - DUAL ELIGIBLE - [facility] OPTIONS AND ONE CARE (MEDICARE REPLACEMENT/ADV ANTAGE - HMO) Gracy Mead [id number] Gracy Mead Notes Date Note Type Note Provider Name and Address Organization Details Recorded Time 08/26/2024 text/html CRC Nurse Triage Notes (Neeru Daniels): Reason For Request: Pt's HAND BUNCH MAKER reporting UTI Chief Complaints: UTI/Pyelonephritis PMH: Heart Disease, COPD/Asthma, Severe Persistent Mental Illness (SPMI) Allergies: No Known Comments: PMH: COPD, early Dementia, heart disease, Reporting UTI symptoms, painful urination, some bloody urine yesterday, none today, Denies any other symptomsReports a UTI months ago, HAND BUNCH MAKER Rachana will be with member today. Will place referral for UTI w/u.verified info: Susana PRADO Vehicle Calibration Engineer Organization Information for Pedro Ferrer Business Legal Name: [facility] Address: [address] [place] [address], [place] [address], Whizzer Hand: Henry MYERS No.: [id number] Vehicle Calibration Engineer POC Test Results from Pedro Ferrer Urine Dipstick (18:19:27) Urine leukocytes: 3+ MARCOS Urine nitrites: + NIT Urine urobilinogen: - URO Urine protein: 2+ PRO Urine pH: 6.0 pH Urine blood: trace BLO Urine specific gravity: 1.010 SG Urine ketones: - KET Urine bilirubin: - JOSI Urine glucose: - GLU ..................... ..................... ..................... ..................... ..................... ..................... ............... Vehicle Calibration Engineer Note From Pedro Ferrer: Miss Ulrich is [...] is sent to [facility]. I consultative the [facility] will [facility] prescription to pharmacy. Patient's family states they will scrap picker the prescription today. I educated Mrs. [...] were given the opportunity to ask questions. [facility] Lab Orders: culture, urine: Performed ..................... ..................... ..................... ..................... ..................... ..................... ............... Disposition: Fulfilled Gerardo Lunsford MD [address] [place] [address],[address], [place], [address], [employer] 08/26/2024 20:23:43 08/21/2025 text/html ROS as noted in the [facility] CRC Nurse Triage Notes (Nancy [...] Mental Illness (SPMI) PMH Reviewed at 08/21/2025 12: Allergies Reviewed at 08/21/2025 - 12:09 Comments: 65 y.o female complains of Urinary Symptoms HAND BUNCH MAKER reporting symptoms. Foul smelling urine and new [...] signs of when to seek emergency care. Vehicle Calibration Engineer Organization Information for Kenneth Gonsales Business Legal Name: [employer] Address: [address] [place] [address], Whizzer Hand: Carlos Woody MD [place] No.: [id number] Vehicle Calibration Engineer POC Test Results from Kenneth Gonsales Urine Dipstick (12:42:41) Urine leukocytes: 70+MARCOS Urine nitrites: -NIT Urine urobilinogen: 0.2URO Urine protein: 0.3PRO Urine pH: 6.0pH Urine blood: -BLO Urine specific gravity: 1.010SG Urine ketones: 15KET Urine bilirubin: -JOSI Urine glucose: -GLU Attachments uploaded as part of this test result can be found under Documents section. ..................... ..................... ..................... ..................... ..................... ..................... ............... Vehicle Calibration Engineer Note From Kenneth Gonsales: [facility] makes pt contact a 65 yo F CC of uti like symptoms for two days. [facility] obtains vital signs. PT provides a clean catch urine sample. [facility] performs urine dipstick test and collects specimen for the lab. PT HAND BUNCH MAKER explains pt for the past two days [...] hospital with IV antibiotics. No known allergies. [facility] contacts [facility] and explains above mentioned. [facility] not convinced it is a UTI. [facility] advises pt be seen in the hospital for a full work up and imaging of the kidneys or reach out to her PCP regarding follow up. PT would rather reach out to PCP. [facility] explains red flags such as worsening pain, unable to hold/void urine, new onset fever, sob, chest pain, n/v. That pt should then seek a higher level of care such as 911. PT understands. Culture to be dropped off at [facility]. [facility] clear. [facility] Lab Orders: culture, urine: Performed urinalysis, dipstick: Performed ..................... ..................... ..................... ..................... ..................... ..................... ............... [facility] Consulted: John Ferrer ..................... ..................... ..................... ..................... ..................... ..................... ............... Disposition: Fulfilled John Ferrer MD [address] [facility],[address], [place], [address], [employer] 08/21/2025 13:49:25 08/24/2025 text/html ROS as noted [...] started on abx at the last visit. HAND BUNCH MAKER will be with member today. Member reported [...] to seek emergency care. Simran Hutchison RN Vehicle Calibration Engineer Organization Information for [employer] Business Legal Name: [employer]. Address: [address] [place] [address], Whizzer Hand: Carlos Woody MD CLIA No.: [id number] Vehicle Calibration Engineer POC Test Results from Mauricio Souza - ALS Urine Dipstick (12:00:18) Urine leukocytes: 70LEU Urine nitrites: -NIT Urine urobilinogen: 0.2URO Urine protein: 15PRO Urine pH: 6.0pH Urine blood: -BLO Urine specific gravity: 1.010SG Urine ketones: -KET Urine bilirubin: -JOSI Urine glucose: -GLU ..................... ..................... ..................... ..................... ..................... ..................... ............... Vehicle Calibration Engineer Note From Mauricio Souza: [facility] responds to the listed address for a 65 yof w/ a c/c of UTI. Upon arrival on scene, pt is found seated in her recliner in the living area of her small and well-kept apartment. She is reclined w/ her feet up, alert, and tracks [facility] on approach. Her face is flushed, but she is otherwise generally well-appearing. No facial droop or one sided weakness are observed, no stridor sonorous respirations, or increased WOB are noted, and she is not bleeding anywhere. HAND BUNCH MAKER is on scene to help w/ translation, as pt is Sinhala speaking only. Pt received a call from [employer] this morning informing her she was positive for UTI. Pt was seen by [facility] on of last week and UA/UC was [...] was told to have another visit from [facility] today for a retest of UA and [...] reported. Ddx: UTI, kidney infection, kidney stone [facility] obtains vital signs and pt is assessed. [...] Pt voided her bladder just prior to [facility] arrival, but caught the urine in a hat and left it for [facility] to test. [facility] performs UA and results are not convincing of UTI. 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 Pt agrees and chooses to be transported to [facility]. [place] [facility] [place] [facility]. [facility] is clear. Report completed by JAYY Souza [id number]. ..................... ..................... ..................... ..................... ..................... ..................... ............... [facility] Consulted: David Arroyo ..................... ..................... ..................... ..................... ..................... ..................... ............... Disposition: Fulfilled Francisco Javier Arroyo MD [address] [place] [address],[address], [place], [address], [employer] 08/24/2025 14:24:05 08/26/2025 text/html CRC Nurse Triage [...] Comments: 65 y.o female complains of Rash HAND BUNCH MAKER reporting rash starting yesterday night. Rash started [...] during ER visit and was normal per HAND BUNCH MAKER. I provided information on the mobile health provider response time and advised the patient and/or caregiver to monitor reported signs and symptoms. I discussed the warning signs of when to seek emergency care. ..................... ..................... ..................... ..................... ..................... ..................... ............... Vehicle Calibration Engineer Note From Mauricio Sozua: SC6 responds to the listed address for [...] weakness and she is not bleeding anywhere. HAND BUNCH MAKER is on scene to assist w/ translation and Hx. This [facility] provider sent pt to the ER two days ago to r/o kidney infection. HAND BUNCH MAKER and pt tell [facility] she was placed [...] the infection was coming from, according to HAND BUNCH MAKER. Pt was also given and has taken Morphine, 15mg Q6H. Ddx: abx reaction, morphine rxn [facility] immediately listens to lung sounds and finds [...] or welts are noted on pt's body. [facility] contacts [facility] and discusses the above. [facility] prescribes a 3-day prednisone taper and orders pt to stop taking the prescribed abx and to immediately call her PCP for an appointment. [facility] order 60mg PO for pt now. [facility] administers 20mg x3 tablets prednisone to pt PO. [facility] informs pt to contact her PCP and get and appointment ERIK. Pt and HAND BUNCH MAKER are also advised to call 911 immediately if pt develops sob, wheezing, swelling of the lips, face, tongue or feels her throat is swelling, development of n/v/d, or abd pain, as these are all signs of serious allergic reaction. Both give their verbal understanding. [facility] ensures pt has no further questions and she is left in stable condition. [facility] is clear. Report completed by JAYY Souza [id number]. [facility] Medication Orders: prednisone 20 mg tablet: Administered ..................... ..................... ..................... ..................... ..................... ..................... ............... [facility] Consulted: Heide Silva ..................... ..................... ..................... ..................... ..................... ..................... ............... Disposition: Fulfilled Heide Silva MD [address] [place] [address],[address], [place], [address], [employer] 08/26/2025 19:25:50 08/28/2025 text/html ROS as noted in the [facility] CRC Nurse Triage Notes (Nancy Wadswroth): Reason For Request: last seen 08/26, 08/24, [...] days w/ no effect. No creams prescribed. HAND BUNCH MAKER using hydrocortisone and Benadryl cream with no [...] signs of when to seek emergency care. Vehicle Calibration Engineer Organization Information for Bernard Porter Bloson Legal Name: [facility] Address: [address] [place] [address], [place] [address], Whizzer Hand: Henry BRUSHNM No.: [id number] Vehicle Calibration Engineer POC Test Results from Bernard Porter - ALS Urine Dipstick (10:55:41) Urine leukocytes: -MARCOS Urine nitrites: -NIT Urine urobilinogen: 0.2URO Urine protein: -PRO Urine pH: 5.0pH Urine blood: -BLO Urine specific gravity: 1.005SG Urine ketones: -KET Urine bilirubin: -JOSI Urine glucose: -GLU ..................... ..................... ..................... ..................... ..................... ..................... ............... Vehicle Calibration Engineer Note From Bernard Porter: Patient alert and [...] next several days. Family with patient throughout. [facility] Lab Orders: urinalysis, dipstick: Performed [facility] Medication Orders: prednisone 20 mg tablet: Performed ..................... ..................... ..................... ..................... ..................... ..................... ............... [facility] Consulted: Marta Zambrano ..................... ..................... ..................... ..................... ..................... ..................... ............... Disposition: Fulfilled MARTA ZAMBRANO MD [address] [place] [address],[address] [facility], [place], [address], [employer] Information SystemsLOLA CHAUHAN 08/28/2025 16:03:46 OBGyn Episode No OBEpisode recorded.
--- OUTSIDE RECORDS SUMMARY | 2025-09-23 06:17 | XMS_ITS | Continuity of Care Document ---
Author Organization [place] [facility], [facility] Address [address] [place] [address] Care Team Providers Care Balance Bridge Assembler Name Role Phone DICKSON SAEZ Primary Care Provider [facility] JOCELYN OTHER Assessment Encounter Date Assessment Date Assessment LastModified by Organization Details LastModified Time 08/28/2025 08/28/2025 As noted, we wer e called to see this patient regarding concerns of itchy rash. Evaluation in the field was performed by my install technician colleague, as noted above, I provided real-time [...] . By the instead team and prescribed [id number] mg PO for a total of three [...] the emergency department. This was based on [email or web address] Not available 08/28/2025 11:20:37 Plan of Treatment Reminders Order Date Submit Date Provider Last Modified By Organization Details Last Modified Time Details Appointments None recorded. Lab urinalysis, dipstick 2024 025 [facility], [address] [place] [address], [id number] 16:08:37 Referral None recorded. Procedures None recorded. Surgeries None recorded. Imaging None recorded. Medication Orders prednisone [address] [facility]/Pharmacy #[id number], [address] [place], [address], 05:01:11 prednisone 20 mg tablet 2024 025 [facility]/Pharmacy #[id number], [address] [place], [address], 05:01:11 Patient TargetsNo targets recorded. Patient InstructionsNo instructions recorded. Reason for Referral None Reported. Results Created Date Observation Date Name Description Value Unit Range Abnormal Flag Note LastModifiedBy Organization Detail LastModifiedTime 08/21/2008/23/2025 URINE CULTU RE, UROLO GY SAKINA P urine culture, urology workup Final report Not Available [facility] ([facility]) [address] [facility], [place], [address], 08/23/2025 18:05:32 08/21/2008/23/2025 URINE CULTU RE, UROLO GY SAKINA P result 1 COMMEN T Mixed uroge nital lizeth 10,00 0-25, 000 colon y formi ng units per mL Not Available [facility] ([facility]) [address] [facility], [place], [address], 08/23/2025 18:05:32 08/21/2008/21/2025 ONE SPECI MEN IDENT [...] of colle ction . Not Available [facility] ([facility]) [address] [facility], [place], [address], 08/22/2025 20:06:16 Result Notes None recorded. Medical Equipment None Reported. Allergies Allergen ID Allergen Name Allergen Category Reaction Reaction Severity Criticality Documentation Date Start Date Code Code System Note Provider Name and Address Organization Details Recorded Time 07186 cefuroxim e Not available Not available Not [...] Details Last Updated DateTime 5 94 /min 07156.4 g 99.1 [degF] 14 /min 157.48 cm 98 % 132/84 mm[Hg] Not Available [facility] [...] ICD10 Code Diagnosis IMO Codes Diagnosis Note [id number] John Ferrer MD [facility] ED Medical [address] [address] 08/21/2025 12:52:47 08/21/2025 14:31:53 Acute low back pain 756852795 M54.50 [id number] Fracnisco Javier Arroyo MD [facility] Medical [address] [address] 08/24/2025 12:03:23 08/24/2025 21:36:47 Flank pain 804522073 R10.A3 [id number] Patient seen a few days prior with flank pain and had advised to go to the ED. Recent Urine culture with mixed lizeth from 3 days prior; currently positive LE but neg nitrite. Given 08/08 flank pain for many days, advised to go to ED for imaging and patient agrees. 18326 Heide Silva MD [facility] ED Medical [place] [phone] 08/26/2025 16:41:55 08/27/2025 11:47:33 Pruritic rash 44799090 L28.2 048026 Pruritic d isorder of skin 6091053455 L29.9 13674 92571 MARTA GUERRERO MD [facility] ED Medical [place] [phone] 08/28/2025 11:00:53 08/28/2025 19:00:03 Acute allergic reaction 807649482 T78.40XD [id number] Eruption c aused by drug 66634553 L27.0 [id number] Health Concerns Section Related Observation LastModified by Organization Detai ls LastModified Time None Recorded Concern Status LastModified by Organization Details LastModified Time None Recorded Payers Encounter Date Sequence Insurance Name Policy Number Policy Burnham Covered Member ID Burnham Member ID Guarantor Name 08/28/2025 1 [facility] - DOS ON OR AFTER 2023 - DUAL ELIGIBLE - SNF OPTIONS AND ONE CARE (MEDICARE REPLACEMENT/ADV ANTAGE - HMO) Gracy Mead [id number] Gracy Mead Notes Date Note Type Note [...] days w/ no effect. No creams prescribed. LITIGATION COUNSEL using hydrocortisone and Benadryl cream with no [...] signs of when to seek emergency care. Tracer Clerk Organization Information for Bernard Porter [employer] Legal Name: [facility] Address: [address] [place] [address], [place] [address], Windows Technical Specialist: Henry Monreal MD [place] No.: [id number] Tracer Clerk POC Test Results from Bernard Porter Urine Dipstick (10:55:41) Urine leukocytes: -MARCOS Urine nitrites: -NIT Urine urobilinogen: 0.2URO Urine protein: -PRO Urine pH: 5.0pH Urine blood: -BLO Urine specific gravity: 1.005SG Urine ketones: -KET Urine bilirubin: -JOSI Urine glucose: -GLU ..................... ..................... ..................... ..................... ..................... ..................... ............... Tracer Clerk Note From Bernard Porter: Patient alert [...] next several days. Family with patient throughout. [facility] Lab Orders: urinalysis, dipstick: Performed [facility] Medication Orders: prednisone 20 mg tablet: Performed ..................... ..................... ..................... ..................... ..................... ..................... ............... [facility] Consulted: Marta Guerrero ..................... ..................... ..................... ..................... ..................... ..................... ............... Disposition: Fulfilled MARTA GUERRERO MD [address] [facility],[address], [place], [address], [employer] 08/28/2025 16:03:46 OBGyn Episode No OBEpisode recorded.
== END 2025-09-23 06:16 | disposition home or self-care (01) ==
LOC: CF 06:15
PROVIDERS: Visit Provider Anesthesiology
DX: M53.3 Sacrococcygeal disorders, not elsewhere classified (principal)
CPT/HCPCS: J2003; J2795; Q9967

== ENCOUNTER 2025-09-23 10:47 | Outpatient (AMB) | payer OTHER, SELFPAY ==
[2025-09-23 11:01] VITALS: BP 138/76; PULSE 112; RESP 16; O2SAT 96; BMI 47.0
--- NOTE | 2025-09-23 11:01 | A.OFFVIS_ITS ---
Vital Signs 09/23/25 11:01 09/23/25 11:46 Height 5 ft 1 in Weight 249 lb BMI 47.0 BP 138/76 124/77 Blood Pressure Location Lt brachial Lt brachial Position Sitting Sitting Respiration 16 16 Pulse 112 H 96 Pulse Source Pulse Oximeter Pulse Oximeter Pulse Oximetry (%) 96 97 Oxygen Delivery Method Room Air Room Air Intake Visit Reasons: Right Diagnostic SIJ Injection Allergies No Known Allergies Allergy (Verified 09/27/25 11:35) [facility] Medical History Pre-op evaluation Polyarticular osteoarthritis Avascular necrosis of bones of both hips Dysuria Morbid obesity Avascular necrosis Physical exam Well woman exam RSV (acute bronchiolitis due to respiratory syncytial virus) Chest pain Palpitations URI (upper respiratory infection) Snoring Encounter for screening for malignant neoplasm of colon Lumbar pain Urinary incontinence Low blood pressure Allergic reaction UTI (urinary tract infection) Palpitations Morbid obesity with BMI of 40.0-44.9, adult Epigastric abdominal pain Oxygen dependent Hypothyroidism Hypersomnia ILD (interstitial lung disease) ROB on CPAP History of ESBL E. coli infection Obstructive sleep apnea Moderate recurrent major depression Urinary retention Acute and chronic respiratory failure with hypoxia COVID-19 Lupus (systemic lupus erythematosus) Polyarthralgia Neck mass Eosinophilia Severe asthma Asthma-COPD overlap syndrome Trigger finger of right hand Recurrent UTI Tachycardia Obesity Lumbar degenerative disc disease GERD (gastroesophageal reflux disease) Hemangioma Hypovitaminosis D Bipolar 1 disorder Depression with anxiety Insomnia COPD (chronic obstructive pulmonary disease) Surgical History Hx of hand surgery Hx of cardiac catheterization History of esophagogastroduodenoscopy (EGD) History of cystocele History of colonoscopy History of shoulder surgery History of carpal tunnel release History of hysterectomy History of section History of tonsillectomy Family History Father Prostate cancer Mother No problems noted. Sister Nasopharyngeal cancer Social History Household Members: None Household Members Other:: 1 Housing: Apartment Do you presently have visiting nurse or other home services: Yes (Has LAWN MAINTENANCE WORKER) Alcohol intake: never Comment: sleeping Patient Tobacco Use Status: Former Tobacco user Years Smoked: 14 +/- e-Cigarette/Vaping Use: Never Used Second Hand Smoke Exposure: No Advance Directives: Yes Advance Directives on File: Yes Advance Directives Date on File: 01/08/21 service: No Current occupational status: disabled Current occupation: right and left handed--- HAS [employer]WN MAINTENANCE WORKER SERVICES Cognitive needs: Yes (walker ) Hearing needs: No Vision needs: Yes Female Reproductive History Menstrual Age of Menarche: 12 Physical Exam Vital Signs: Last Vital Signs Pulse 96 09/23/25 11:46 Resp 16 09/23/25 11:46 BP 124/77 09/23/25 11:46 Pulse Ox 97 09/23/25 11:46 Oxygen Delivery Method Room Air 09/23/25 11:46 BMI result Body Mass Index 47.0 Assessment & Plan Assessment & Plan (1) Sacroiliac joint dysfunction: Code(s): M53.3 - Sacrococcygeal disorders, not elsewhere classified Category: Medical Plan right diagnostic sacroiliac joint injection. Informed concent was explained to the patient The risks, benefits and alternatives were discussed with the patient and informed consent was obtained, patient was placed in the prone position and padded to foster comfort. Time out was performed delineating correct site and side of the procedure , name and of the patient, patient participated in time out procedure. The lower back and upper buttocks of the patient were prepped with ChloraPrep and draped with sterile self adhesive utility towels. C-arm was brought over the operating field and picture of the right SI joint was demonstrated on the screen. Tilting C-arm contralateral to the left the posterior silhouette of the sacroiliac joint was superimposed on anterior silhouette of the sacroiliac joint. The point slightly medial to the sacroiliac joint silhouette was injected with lidocaine 2%, forming skin wheal. After that 22 gauge 3-1/2 inch spinal needle was inserted through the skin wheal and advanced to were the sacroiliac joint in tunnel vision fashion. When the needle entered the sacroiliac joint capsule injection of the contrast was performed delineating intra-articular and minimally periarticular spread of the contrast. After that injection of the treatment solution of ropivacaine 0.5% - 5 cc into the joint was performed. Upon completion of the injection needle was withdrawn sterile Band-Aid was applied. The patient tolerated the procedure well. Orders: Orders FL guidance in treatment room 09/23/25 M46.1 - Sacroiliitis, not elsewhere classified Coding Level of Care Code Est Pt Level 3 (60752) Diagnoses Sacroiliac joint dysfunction M53.3
[2025-09-23 11:46] VITALS: BP 124/77; PULSE 96; RESP 16; O2SAT 97
== END 2025-09-23 11:48 | disposition home or self-care (01) ==
LOC: HO.PMCPRC 10:47
PROVIDERS: PCP Internal Medicine; Visit Provider Anesthesiology
DX: M53.3 Sacrococcygeal disorders, not elsewhere classified (principal)
CPT/HCPCS: 27096

== ENCOUNTER 2025-09-27 11:15 | Emergency (ER) | payer OTHER, SELFPAY ==
[2025-09-27] VITALS (8 sets, daily range): BP systolic 123–144; BP diastolic 76–90; PULSE 70–105; RESP 13–18; TEMP 36.2–36.8; O2SAT 92–99; BMI 41.9
--- NOTE | ~2025-09-27 | XR_ITS ---
CLINICAL HISTORY: cough, COPD Asthma 1 view chest x-ray Comparison: CR - XR CHEST 1V - 08/31/25 03:55 EST Findings: No consolidation, pleural effusion or pneumothorax. Stable cardiomediastinal silhouette. Left shoulder reverse total arthroplasty. IMPRESSION: No acute cardiopulmonary process. This document has been electronically signed by: Cassidy Sweet DO on 09/27/2025 12:46:08
--- NOTE | 2025-09-27 11:40 | PC.NURSE ---
Pt coming from home, reporting sore throat and barky cough since . She reporting that her inhalers and PRN O2 at home have been improving how she is feeling. Fever noted last night, denies sick contacts at this time. Call salvador within reach, pt on monitor, pt to remain on RA at this time O2 is >96% and pt is in agreement to not wear her O2. Interp used at bedside for assessment.
[2025-09-27 12:15] LABS: IDNOW Serial# 55D5AD1C; Strep A Nucleic Acid Negative (Negative)
--- OUTSIDE RECORDS SUMMARY | 2025-09-27 12:17 | XMS_ITS | Encounter Summary ---
Author Organization [facility] Address [address] [place] [address] Phone Care Team Providers Care Director Utilization Management Name Role Phone Pcp, Unknown Primary Care Provider Unavailabl e Encounter Details Date Type Department Care Team (Late st Contact Info) Description 06/20/2020 Transcribe Orders [facility] Specimen Processing [address] [place] [address] Anton Stoddard MD [address] [facility] [address] [place] [address] [email or web address] Encounter for screening laboratory testing for COVID-19 [...] AM EDT) Specimen Source/Descriptio n NASOPHARYNGEAL SWAB [facility] Comment NASOPHARYNGEAL SWAB [facility] SARS-CoV 2 (COVID-19) PCR Not Detected Not Detected [facility] Comment: Negative results do not preclude [...] ORDERABLE S Final Result Performing Organization Address City/[facility]/ZIP Co de Phone Number [address] [address] * COVID-19 PCR Order (06/20/2020 8:00 AM EDT) Specimen Source NASOPHARYNGEAL SWAB (TRACTOR TECHNICIAN) [facility] COVID Testing Status Sent to [facility] Micro Lab [facility] Other 06/20/2020 8:00 AM EDT 06/20/2020 11:46 AM EDT us Anton Stoddard MD LAB GENERAL ORDERABLES Final Res ult Performing Organization Address City/[facility] Co de Phone Number [address] [address] documented in this encounter Visit Diagnoses Diagnosis Encounter for screening laboratory testing for COVID-19 virus- Primary documented in this encounter Additional Health Concerns Infection Onset Date Last Indicated Resolved Time CoV-Exposed Comment:Recent close contact 06/18/2020 06/18/2020 07/02/2020 1:24 AM EDT CoV-Exposed Comment:Recent close contact 07/10/2020 07/10/2020 07/24/2020 1:23 AM EDT documented as of this encounter Care Teams Director Utilization Management Relationship Specialty Start Date End Date Pcp, Unknown PCP - General 05/20/20 documented as of this encounter Additional Source Comments The information contained in this document represents components of the legal health record. It is not the complete legal health record.[facility]
--- OUTSIDE RECORDS SUMMARY | 2025-09-27 12:17 | XMS_ITS | Continuity of Care Document ---
Author Organization [employer] [facility], [facility] Address [address] [place] [address] Care Team Providers Care Obiee Report Developer Name Role Phone DICKSON SAEZ Primary Care Provider HIM JOCELYN OTHER Assessment Encounter Date Assessment Date Assessment LastModified by Organization Details LastModified Time 08/21/2025 08/21/2025 Impression: 65yo/f referred by COMMUNITY MENTAL HEALTH WORKER for urinary symptoms and back pain. Patient with multiple chronic medical conditions as above, states for the past 2-3 days has been having worsening back pain symptoms, initially seemed to localize to one side, today describing bilateral back/flank pain. COMMUNITY MENTAL HEALTH WORKER has noticed increased odor to urine, but [...] demonstrate a UTI or pyelonephritis. Patient and COMMUNITY MENTAL HEALTH WORKER feel these symptoms are new in the last 2-3 days. I advised that for full evaluation I would recommend patient be transferred to [facility] ED for further evaluation and treatment including consideration of diagnostic imaging. Patient and COMMUNITY MENTAL HEALTH WORKER are declining at this time, stating they would prefer to discuss with PCP first. Advised to seek care immediately with any acute worsening or change in symptoms which they understand. [email or web address] Not available 08/21/2025 13:25:07 Plan of Treatment Reminders Order Date Submit Date Provider Last Modified By Organization Details Last Modified Time Details Appointments None recorded. Lab culture, urine 2024 [place] [facility] (Centralized Electronic Ordering - All Locations), Patient Can Go To The Location Of Their Choice, [address] 20:06:15 urinalysis , dipstick 2024 [facility], [address] [place] [address], [address] 14:08:49 Referral None recorded. Procedures None recorded. [...] urology workup Final report Not Available [facility] ([facility]) [address] [facility], [place], [address], 08/23/2025 18:05:32 08/21/2008/23/2025 URINE CULTU RE, UROLO GY SAKINA P result 1 COMMEN T Mixed uroge nital lizeth 10,00 0-25, 000 colon y formi ng units per mL Not Available [facility] ([facility]) [address] [facility], [place], [address], 08/23/2025 18:05:32 08/21/2008/21/2025 ONE SPECI MEN IDENT [...] of colle ction . Not Available [facility] ([facility]) [address], [place], [address], 08/22/2025 20:06:16 Result Notes None recorded. Medical Equipment None Reported. Allergies Allergen ID Allergen Name Allergen Category Reaction Reaction Severity Criticality Documentation Date Start Date Code Code System Note Provider Name and Address Organization Details Recorded Time 76949 cefuroxim e Not available Not available Not [...] Updated DateTime 5 99 % 102 /min 666385. 224 g 154.94 cm 98.1 [degF] 16 [...] ICD10 Code Diagnosis IMO Codes Diagnosis Note 62097 John Ferrer MD [facility] ED Medical [facility] [address] [place] [address] 08/21/2025 12:52:47 08/21/2025 14:31:53 Acute low back pain [id number] M54.50 [id number] Health Concerns Section Related Observation LastModified by Organization Detai ls LastModified Time None Recorded Concern Status LastModified by Organization Details LastModified Time None Recorded Payers Encounter Date Sequence Insurance Name Policy Number Policy Burnham Covered Member ID Burnham Member ID Guarantor Name 08/21/2025 1 [facility] - DOS ON OR AFTER 2023 - DUAL ELIGIBLE - ALF OPTIONS AND ONE CARE (MEDICARE REPLACEMENT/ADV ANTAGE - HMO) Gracy Mead [id number] Gracy Mead Notes Date Note Type Note Provider Name and Address Organization Details Recorded Time 08/21/2025 text/html ROS as [facility] Nurse Triage Notes (Nancy Wadsworth): [...] 65 y.o female complains of Urinary Symptoms COMMUNITY MENTAL HEALTH WORKER reporting symptoms. Foul smelling urine and new [...] signs of when to seek emergency care. Lathe Tender Organization Information for Kenneth Gonsales Business Legal Name: [employer]. Address: [address] [place] [address], Butadiene Converter Helper: Carlos Woody MD AYESHA No.: [id number] Lathe Tender POC Test Results from Kenneth Gonsales Urine Dipstick (12:42:41) Urine leukocytes: 70+MARCOS Urine nitrites: -NIT Urine urobilinogen: 0.2URO Urine protein: 0.3PRO Urine pH: 6.0pH Urine blood: -BLO Urine specific gravity: 1.010SG Urine ketones: 15KET Urine bilirubin: -JOSI Urine glucose: -GLU Attachments uploaded as part of this test result can be found under Documents section. ..................... ..................... ..................... ..................... ..................... ..................... ............... Lathe Tender Note From Kenneth Gonsales: [facility] makes pt contact a 65 yo F CC of uti like symptoms for two days. [facility] obtains vital signs. PT provides a clean catch urine sample. [facility] performs urine dipstick test and collects specimen for the lab. PT COMMUNITY MENTAL HEALTH WORKER explains pt for the past two days [...] hospital with IV antibiotics. No known allergies. [facility] contacts [facility] and explains above mentioned. [facility] not convinced it is a UTI. [facility] advises pt be seen in the hospital for a full work up and imaging of the kidneys or reach out to her PCP regarding follow up. PT would rather reach out to PCP. [facility] explains red flags such as worsening pain, unable to hold/void urine, new onset fever, sob, chest pain, n/v. That pt should then seek a higher level of care such as 911. PT understands. Culture to be dropped off at [facility]. [facility] clear. [facility] Lab Orders: culture, urine: Performed urinalysis, dipstick: Performed ..................... ..................... ..................... ..................... ..................... ..................... ............... [facility] Consulted: John Ferrer ..................... ..................... ..................... ..................... ..................... ..................... ............... Disposition: Fulfilled John Ferrer MD [address] [facility],[address], [place], [address], [employer] 08/21/2025 13:49:25 OBGyn Episode No OBEpisode recorded.
--- OUTSIDE RECORDS SUMMARY | 2025-09-27 12:17 | XMS_ITS | Data Portability ---
Author Organization [facility], [facility] Address [address] [place] [phone] Care Team Providers Care Reconciler Name Role Phone DICKSON SAEZ Primary Care Provider [phone] HIM JOCELYN OTHER Assessment Encounter Date Assessment Date Assessment LastModified by Organization Details LastModified Time 08/26/2024 08/26/2024 As noted, we wer e called to see this patient regarding concerns of dysuriaEvaluation in the field was performed by my security and compliance analyst colleague, as noted above, I provided real-time [...] 20:23:21 08/21/2025 08/21/2025 Impression: 65yo/f referred by [employer] for urinary symptoms and back pain. Patient with multiple chronic medical conditions as above, states for the past 2-3 days has been having worsening back pain symptoms, initially seemed to localize to one side, today describing bilateral back/flank pain. [employer] has noticed increased odor to urine, but [...] demonstrate a UTI or pyelonephritis. Patient and [employer] feel these symptoms are new in the last 2-3 days. I advised that for full evaluation I would recommend patient be transferred to [facility] ED for further evaluation and treatment including consideration of diagnostic imaging. Patient and [employer] are declining at this time, stating they would prefer to discuss with PCP first. Advised to seek care immediately with any acute worsening or change in symptoms which they understand. [email or web address] Not available 08/21/2025 13:25:07 08/26/2025 08/26/2025 I provided real -time medical direction via phone for this encounter and was available for additional phone-based assistance as needed. I have reviewed and agree with the Assessment and Plan as documented by the Piece Presser. Patient given the opportunity to ask questions. [...] facial, tongue swelling, SOB, CP, BARRY. Per security and compliance analyst on the scene, VSS, please see uploaded pictures Please read the security and compliance analyst note for their exam findings. Impression: Drug [...] in the field was performed by my security and compliance analyst colleague, as noted above, I provided real-time [...] . By the instead team and prescribed [id number] mg PO for a total of three [...] the emergency department. This was based on [email or web address] Not available 08/28/2025 11:20:37 Plan of Treatment Reminders Order Date Submit Date Provider Last Modified By Organization Details Last Modified Time Details Appointments None recorded. Lab urinalysis, dipstick 2024 [facility], [address] [place] [address], [id number] 16:08:37 urinalysis, dipstick 2024 025 [facility], [address] [place] [address], [id number] 14:29:02 culture, urine 2024 025 MAGDY [facility] (Centralized Electronic Ordering - All Locations), Patient Can Go To The Location Of Their Choice, [id number] 5 20:06:15 urinalysis, dipstick 2024 025 [facility], [address] [place] [address], [id number] 14:08:49 culture, urine 2023 024 MAGDY [facility] (Centralized Electronic Ordering - All Locations), Patient Can Go To The Location Of Their Choice, [id number] 4 10:06:26 urinalysis, dipstick 2023 024 [email or web address] [facility], [address] [place] [address], [id number] 4 20:23:24 Referral None recorded. Procedures None recorded. Surgeries None recorded. Imaging None recorded. Medication Orders prednisone 20 mg tablet 2024 025 [id number], [address] [place], [address], 5 05:01:11 prednisone 20 mg tablet 2024 025 [id number], [address] [place], [address], 5 05:01:11 prednisone 20 mg tablet 2024 025 [id number], [address] [place], [address], 5 05:01:11 prednisone 20 mg tablet 2024 025 [facility], [address] [place], [address], 5 05:01:11 cefpodoxime 200 mg tablet 2023 024 [id number], [address] [place] [address], [address], 4 18:25:11 Patient TargetsNo targets recorded. Patient InstructionsNo instructions recorded. Reason for Referral None Reported. Results Created Date Observation Date Name Description Value Unit Range Abnormal Flag Note LastModifiedBy Organization Detail LastModifiedTime 08/26/2008/29/2024 URINE CULTU RE,CO MPREH ENSIV E urine culture,comp rehensive Final report Not Available [facility] ([facility]) [address] [facility], [place], [address], 08/29/2024 10:06:37 08/26/2008/29/2024 URINE CULTU RE,CO MPREH ENSIV E result 1 COMMEN T No growt h in 36 - 48 hours . Not Available [facility] ([facility]) [address] [facility], [place], [address], 08/29/2024 10:06:37 08/21/2008/23/2025 URINE CULTU RE, UROLO GY SAKINA P urine culture, urology workup Final report Not Available [facility] ([facility]) [address] [facility], [place], [address], 08/23/2025 18:05:32 08/21/2008/23/2025 URINE CULTU RE, UROLO GY SAKINA P result 1 COMMEN T Mixed uroge nital lizeth 10,00 0-25, 000 colon y formi ng units per mL Not Available [facility] ([facility]) [address] [facility], [place], [address], 08/23/2025 18:05:32 08/21/2008/21/2025 ONE SPECI MEN IDENT [...] of colle ction . Not Available [facility] ([facility]) [address] [facility], [place], [address], 08/22/2025 20:06:16 Result Notes None recorded. Medical Equipment None Reported. Allergies Allergen ID Allergen Name Allergen Category Reaction Reaction Severity Criticality Documentation Date Start Date Code Code System Note Provider Name and Address Organization Details Recorded Time 06492 cefuroxim e Not available Not available Not [...] Updated DateTime 5 99 % 102 /min 337208. 224 g 154.94 cm 98.1 [degF] 16 /min 134/79 mm[Hg] Not Available [facility] - production 5 12:52:55 Date Recorded Body weight Body temperature Respiratory rate Heart rate Oxygen saturation Body height Systolic blood pressure Provider Name and Address Organization Details Last Updated DateTime 5 263270. 224 g 98.3 [degF] 20 /min 87 [...] Address Organization Details Last Updated DateTime 5 683592. 224 g 98.3 [degF] 18 /min 154.94 cm 102 /min 96 % 130/83 mm[Hg] Not Available [facility] production 16:42:05 Date Recorded Heart rate Body weight Body temperature Respiratory rate Body height Oxygen saturation Systolic And Diastolic Provider Name and Address Organization Details Last Updated DateTime 5 94 /min 43446.4 g 99.1 [degF] 14 /min 157.48 cm [...] 1126 Surya Acevedo MD Main - [facility] [address] [place] [phone] 02/18/2022 14:31:32 07/07/2022 13:35:00 Periorbital edema 35454623 H05.229 62yo woman evaluated for months of [...] 1140 Eden Coronado MD Main - [facility] [address] [place] [phone] 02/19/2022 09:58:40 07/05/2022 15:20:25 Dysuria 49830939 R30.9 Pt with hx prior UTIs (though [...] assessment and plan as documented by the security and compliance analyst. I provided real time medical direction for this encounter and was immediatel y available to provide additional phone based assistance as needed. Periorbital edema 588389 00 H05.229 Symptoms persist since last [facility] visit, continuing on allergy tx. urine dip today w/o protein to suggest nephrotic syndomre, recommend PCP f/up for allergy testing/tx . Urine dip also w/ trace ketones but no hx diabetes and normal PO intake, likely contaminat ion from adjacent test strip. F/up formal urinalysis 1495 Kenneth Castellon MD [facility] - [address] [phone] 03/10/2022 11:36:32 07/06/2022 14:33:02 Pruritic rash 57017360 L28.2 4072 Braydon Recio MD [address] [address] 07/18/2022 17:25:40 07/22/2022 13:31:39 Pruritic rash 89625989 L28.2 00433 Gerardo Lunsford MD [address] [address] 08/26/2024 18:22:09 08/26/2024 21:57:44 Acute urinary tract infection 224694992 N39.0 84850 John Ferrer MD [facility] [address] [phone] 08/21/2025 12:52:47 08/21/2025 14:31:53 Acute low back pain 158273326 M54.50 [id number] 54961 Francisco Javier Arroyo MD [facility] [address] [address] 08/24/2025 12:03:23 08/24/2025 21:36:47 Flank pain 251631745 R10.A3 [id number] Patient seen a few days prior with flank pain and had advised to go to the ED. Recent Urine culture with mixed lizeth from 3 days prior; currently positive LE but neg nitrite. Given 10/ flank pain for many days, advised to go to ED for imaging and patient agrees. 23702 Heide Silva MD [facility] Medical [address] [address] 08/26/2025 16:41:55 08/27/2025 11:47:33 Pruritic rash 77056875 L28.2 523198 Pruritic d isorder of skin 7155890570 L29.9 22938 75378 MARTA ZAMBRANO MD [facility] [address] [address] 08/28/2025 11:00:53 08/28/2025 19:00:03 Acute allergic reaction 294755516 T78.40XD [id number] Eruption c aused by drug 33054185 L27.0 [id number] Health Concerns Section Related Observation LastModified by Organization Detai ls LastModified Time None Recorded Concern Status LastModified by Organization Details LastModified Time None Recorded Advance Directives Directive None Recorded Payers Insurance Date Sequence Insurance Name Policy Number Policy Burnham Covered Member ID Burnham Member ID Guarantor Name 08/26/[address] [facility] - DOS PRIOR TO 2023 - DUAL ELIGIBLE (MEDICARE REPLACEMENT/ADV ANTAGE - HMO) Gracy Robertsy [id number] Gracy Mead 08/28/[address] [facility] - DOS ON OR AFTER 2023 - DUAL ELIGIBLE - RESIDENTIAL OPTIONS AND ONE CARE (MEDICARE REPLACEMENT/ADV ANTAGE - HMO) Gracy Mead [id number] Gracy Mead Notes Date Note Type Note Provider Name and Address Organization Details Recorded Time 08/26/2024 text/html CRC Nurse Triage Notes (Neeru Daniels): Reason For Request: Pt's [employer] reporting UTI Chief Complaints: UTI/Pyelonephritis PMH: Heart Disease, COPD/Asthma, Severe Persistent Mental Illness (SPMI) Allergies: No Known Comments: PMH: COPD, early Dementia, heart disease, Reporting UTI symptoms, painful urination, some bloody urine yesterday, none today, Denies any other symptomsReports a UTI months ago, [employer] Rachana will be with member today. Will place referral for UTI w/u.verified info: Susana PRADO Piece Presser Organization Information for Pedro Ferrer Business Legal Name: [facility] Address: [address] [place] [address], [place] [address], Mixing Picker Tender: Henry MYERS No.: [id number] Piece Presser POC Test Results from Pedro Ferrer Urine Dipstick (18:19:27) Urine leukocytes: 3+ MARCOS Urine nitrites: + NIT Urine urobilinogen: - URO Urine protein: 2+ PRO Urine pH: 6.0 pH Urine blood: trace BLO Urine specific gravity: 1.010 SG Urine ketones: - KET Urine bilirubin: - JOSI Urine glucose: - GLU ..................... ..................... ..................... ..................... ..................... ..................... ............... Piece Presser Note From Pedro Ferrer: Miss Ulrich is [...] is sent to [facility]. I consultative the [facility] will send prescription to pharmacy. Patient's family states they will pick up and delivery driver the prescription today. I educated Mrs. Ulrich [...] were given the opportunity to ask questions. [facility] Lab Orders: culture, urine: Performed ..................... ..................... ..................... ..................... ..................... ..................... ............... Disposition: Fulfilled Gerardo Lunsford MD [address] [place] [address],[address], [place], [address], [employer] 08/26/2024 20:23:43 08/21/2025 text/html ROS as noted in the [facility] CRC Nurse Triage Notes (Nancy Wadsworth): Reason [...] 65 y.o female complains of Urinary Symptoms [employer] reporting symptoms. Foul smelling urine and new [...] signs of when to seek emergency care. Piece Presser Organization Information for Kenneth Gonsales Business Legal Name: [employer] Address: [address] [place] [address], Mixing Picker Tender: Carlos Woody MD [place] No.: [id number] Piece Presser POC Test Results from Kenneth Gonsales Urine Dipstick (12:42:41) Urine leukocytes: 70+MARCOS Urine nitrites: -NIT Urine urobilinogen: 0.2URO Urine protein: 0.3PRO Urine pH: 6.0pH Urine blood: -BLO Urine specific gravity: 1.010SG Urine ketones: 15KET Urine bilirubin: -JOSI Urine glucose: -GLU Attachments uploaded as part of this test result can be found under Documents section. ..................... ..................... ..................... ..................... ..................... ..................... ............... Piece Presser Note From Kenneth Gonsales: [facility] makes pt contact a 65 yo F CC of uti like symptoms for two days. [facility] obtains vital signs. PT provides a clean catch urine sample. [facility] performs urine dipstick test and collects specimen for the lab. PT [employer] explains pt for the past two days [...] hospital with IV antibiotics. No known allergies. [facility] contacts [facility] and explains above mentioned. [facility] not convinced it is a UTI. [facility] advises pt be seen in the hospital for a full work up and imaging of the kidneys or reach out to her PCP regarding follow up. PT would rather reach out to PCP. [facility] explains red flags such as worsening pain, unable to hold/void urine, new onset fever, sob, chest pain, n/v. That pt should then seek a higher level of care such as 911. PT understands. Culture to be dropped off at [facility]. [facility] clear. [facility] Lab Orders: culture, urine: Performed urinalysis, dipstick: Performed ..................... ..................... ..................... ..................... ..................... ..................... ............... [facility] Consulted: John Ferrer ..................... ..................... ..................... ..................... ..................... ..................... ............... Disposition: Fulfilled John Ferrer MD [address] [facility],[address], [place], [phone], [employer] 08/21/2025 13:49:25 08/24/2025 text/html ROS as noted [...] started on abx at the last visit. [employer] will be with member today. Member reported [...] to seek emergency care. Simran Hutchison RN Piece Presser Organization Information for [employer] Business Legal Name: [employer]. Address: [address] [place] [address], Mixing Picker Tender: Carlos Woody MD CLIA No.: [id number] Piece Presser POC Test Results from Mauricio Souza - ALS Urine Dipstick (12:00:18) Urine leukocytes: 70LEU Urine nitrites: -NIT Urine urobilinogen: 0.2URO Urine protein: 15PRO Urine pH: 6.0pH Urine blood: -BLO Urine specific gravity: 1.010SG Urine ketones: -KET Urine bilirubin: -JOSI Urine glucose: -GLU ..................... ..................... ..................... ..................... ..................... ..................... ............... Piece Presser Note From Mauricio Souza: [facility] responds to the listed address for a 65 yof w/ a c/c of UTI. Upon arrival on scene, pt is found seated in her recliner in the living area of her small and well-kept apartment. She is reclined w/ her feet up, alert, and tracks [facility] on approach. Her face is flushed, but she is otherwise generally well-appearing. No facial droop or one sided weakness are observed, no stridor sonorous respirations, or increased WOB are noted, and she is not bleeding anywhere. [employer] is on scene to help w/ translation, as pt is Pashto speaking only. Pt received a call from [facility] this morning informing her she was positive for UTI. Pt was seen by [facility] on of last week and [...] was told to have another visit from [facility] today for a retest of [...] reported. Ddx: UTI, kidney infection, kidney stone [facility] obtains vital signs and pt [...] Pt voided her bladder just prior to [facility] arrival, but caught the urine in a hat and left it for [facility] to test. [facility] performs UA and results are not convincing of UTI. 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 Pt agrees and chooses to be transported to [facility]. Pt is transported to [facility] by [facility]. [facility] is clear. Report completed by JAYY Souza [id number]. ..................... ..................... ..................... ..................... ..................... ..................... ............... [facility] Consulted: David Arroyo ..................... ..................... ..................... ..................... ..................... ..................... ............... Disposition: Fulfilled Francisco Javier Arroyo MD [address] [place] [address],[address], [place], [phone], [employer] 08/24/2025 14:24:05 08/26/2025 text/html CRC Nurse Triage [...] Comments: 65 y.o female complains of Rash [employer] reporting rash starting yesterday night. Rash started [...] during ER visit and was normal per [employer]. I provided information on the mobile health provider response time and advised the patient and/or caregiver to monitor reported signs and symptoms. I discussed the warning signs of when to seek emergency care. ..................... ..................... ..................... ..................... ..................... ..................... ............... Piece Presser Note From Mauricio Souza: SC6 responds to [...] weakness and she is not bleeding anywhere. [employer] is on scene to assist w/ translation and Hx. This [facility] provider sent pt to the ER two days ago to r/o kidney infection. [employer] and pt tell [facility] she was placed [...] the infection was coming from, according to [employer]. Pt was also given and has taken Morphine, 15mg Q6H. Ddx: abx reaction, morphine rxn [facility] immediately listens to lung sounds [...] or welts are noted on pt's body. [facility] contacts [facility] and discusses the above. [facility] prescribes a 3-day prednisone taper and orders pt to stop taking the prescribed abx and to immediately call her PCP for an appointment. [facility] order 60mg PO for pt now. [facility] administers 20mg x3 tablets prednisone to pt PO. [facility] informs pt to contact her PCP and get and appointment ERIK. Pt and [employer] are also advised to call 911 immediately if pt develops sob, wheezing, swelling of the lips, face, tongue or feels her throat is swelling, development of n/v/d, or abd pain, as these are all signs of serious allergic reaction. Both give their verbal understanding. [facility] ensures pt has no further questions and she is left in stable condition. [facility] is clear. Report completed by JAYY Souza [id number]. [facility] Medication Orders: prednisone 20 mg tablet: Administered ..................... ..................... ..................... ..................... ..................... ..................... ............... [facility] Consulted: Heide Silva ..................... ..................... ..................... ..................... ..................... ..................... ............... Disposition: Fulfilled Heide Silva MD [address] [place] [address],[address], [place], [address], [employer] 08/26/2025 19:25:50 08/28/2025 text/html ROS as noted in the [facility] CRC Nurse Triage Notes (Nancy Wadsworth): Reason [...] days w/ no effect. No creams prescribed. [employer] using hydrocortisone and Benadryl cream with no [...] signs of when to seek emergency care. Piece Presser Organization Information for Bernard [employer] Legal Name: [facility] Address: [address] [place] [address], [place] [address], Mixing Picker Tender: Henry BRUSHAR No.: [id number] Piece Presser POC Test Results from Bernard Porter - ALS Urine Dipstick (10:55:41) Urine leukocytes: -MARCOS Urine nitrites: -NIT Urine urobilinogen: 0.2URO Urine protein: -PRO Urine pH: 5.0pH Urine blood: -BLO Urine specific gravity: 1.005SG Urine ketones: -KET Urine bilirubin: -JOSI Urine glucose: -GLU ..................... ..................... ..................... ..................... ..................... ..................... ............... Piece Presser Note From Bernard Porter: Patient alert and [...] next several days. Family with patient throughout. [facility] Lab Orders: urinalysis, dipstick: Performed [facility] Medication Orders: prednisone 20 mg tablet: Performed ..................... ..................... ..................... ..................... ..................... ..................... ............... [facility] Consulted: Marta Zambrano ..................... ..................... ..................... ..................... ..................... ..................... ............... Disposition: Fulfilled MARTA ZAMBRANO MD [address] [place] [address],[address] [facility], [place], [phone], [facility] State UniversityLOLA CHAUHAN 08/28/2025 16:03:46 OBGyn Episode No OBEpisode recorded.
--- OUTSIDE RECORDS SUMMARY | 2025-09-27 12:17 | XMS_ITS | Continuity of Care Document ---
Author Organization [place] - [facility], [facility] Address [address] [place] [address] Care Team Providers Care Maintenance Repairman Name Role Phone DICKSON SAEZ Primary Care Provider [facility] JOCELYN OTHER Assessment Encounter Date Assessment Date Assessment LastModified by Organization Details LastModified Time 08/28/2025 08/28/2025 As noted, we wer e called to see this patient regarding concerns of itchy rash. Evaluation in the field was performed by my non ferrous material handler colleague, as noted above, I provided real-time [...] . By the instead team and prescribed [id number] mg PO for a total of three [...] the emergency department. This was based on [id number] Not available 08/28/2025 11:20:37 Plan of Treatment Reminders Order Date Submit Date Provider Last Modified By Organization Details Last Modified Time Details Appointments None recorded. Lab urinalysis, dipstick 2024 025 [facility], [address] [place] [address], [id number] 16:08:37 Referral None recorded. Procedures None recorded. Surgeries None recorded. Imaging None recorded. Medication Orders prednisone 20 mg tablet 2024 025 [facility]/Pharmacy #[id number], [address] [place], [address], 05:01:11 prednisone 20 mg tablet 2024 025 [facility]/Pharmacy #[id number], [address] [place], [address], 05:01:11 Patient TargetsNo targets recorded. Patient InstructionsNo instructions recorded. Reason for Referral None Reported. Results Created Date Observation Date Name Description Value Unit Range Abnormal Flag Note LastModifiedBy Organization Detail LastModifiedTime 08/21/2008/23/2025 URINE CULTU RE, UROLO GY SAKINA P urine culture, urology workup Final report Not Available [facility] ([facility]) [address] [facility], [place], [address], 08/23/2025 18:05:32 08/21/2008/23/2025 URINE CULTU RE, UROLO GY SAKINA P result 1 COMMEN T Mixed uroge nital lizeth 10,00 0-25, 000 colon y formi ng units per mL Not Available [facility] ([facility]) [address] [facility], [place], [address], 08/23/2025 18:05:32 08/21/2008/21/2025 ONE SPECI MEN IDENT [...] of colle ction . Not Available [facility] ([facility]) [address] [facility], [place], [address], 08/22/2025 20:06:16 Result Notes None recorded. Medical Equipment None Reported. Allergies Allergen ID Allergen Name Allergen Category Reaction Reaction Severity Criticality Documentation Date Start Date Code Code System Note Provider Name and Address Organization Details Recorded Time 58642 cefuroxim e Not available Not available Not [...] Details Last Updated DateTime 5 94 /min 62687.4 g 99.1 [degF] 14 /min 157.48 cm [...] ICD10 Code Diagnosis IMO Codes Diagnosis Note [id number] John Ferrer MD [facility] Medical [address] [address] 08/21/2025 12:52:47 08/21/2025 14:31:53 Acute low back pain 704824128 M54.50 [id number] [place] Javier Arroyo MD [facility] Medical [address] [address] 08/24/2025 12:03:23 08/24/2025 21:36:47 Flank pain 853641143 R10.A3 063015 Patient seen a few days prior with flank pain and had advised to go to the ED. Recent Urine culture with mixed lizeth from 3 days prior; currently positive LE but neg nitrite. Given 08/08 flank pain for many days, advised to go to ED for imaging and patient agrees. [id number] Heide Silva MD [facility] ED Medical [place] [phone] 08/26/2025 16:41:55 08/27/2025 11:47:33 Pruritic rash 72243267 L28.2 791915 Pruritic d isorder of skin 5368599107 L29.9 27383 [id number] MARTA GUERRERO MD [facility] ED Medical [place] [phone] 08/28/2025 11:00:53 08/28/2025 19:00:03 Acute allergic reaction 237919102 T78.40XD [id number] Eruption c aused by drug 00796089 L27.0 [id number] Health Concerns Section Related Observation LastModified by Organization Detai ls LastModified Time None Recorded Concern Status LastModified by Organization Details LastModified Time None Recorded Payers Encounter Date Sequence Insurance Name Policy Number Policy Burnham Covered Member ID Burnham Member ID Guarantor Name 08/28/2025 1 [facility] - DOS ON OR AFTER 2023 - DUAL ELIGIBLE - RESIDENTIAL OPTIONS AND ONE CARE (MEDICARE REPLACEMENT/ADV ANTAGE - HMO) Gracy Mead [id number] Gracy Mead Notes Date Note Type Note [...] days w/ no effect. No creams prescribed. PHOTOGRAPHER PORTRAIT using hydrocortisone and Benadryl cream with no [...] signs of when to seek emergency care. Die Reamer Organization Information for Bernard Porter [employer] Legal Name: [facility] Address: [address] [place] [address], [place] [address], Director Of Institutional Research: Henry Monreal MD [place] No.: [id number] Die Reamer POC Test Results from Bernard Porter Urine Dipstick (10:55:41) Urine leukocytes: -MARCOS Urine nitrites: -NIT Urine urobilinogen: 0.2URO Urine protein: -PRO Urine pH: 5.0pH Urine blood: -BLO Urine specific gravity: 1.005SG Urine ketones: -KET Urine bilirubin: -JOSI Urine glucose: -GLU ..................... ..................... ..................... ..................... ..................... ..................... ............... Die Reamer Note From Bernard Porter: Patient alert and [...] several days. Family with patient throughout. [facility] Lab Orders: urinalysis, dipstick: Performed [facility] Medication Orders: prednisone 20 mg tablet: Performed ..................... ..................... ..................... ..................... ..................... ..................... ............... [facility] Consulted: Marta Guerrero ..................... ..................... ..................... ..................... ..................... ..................... ............... Disposition: Fulfilled MARTA GUERRERO MD [address] [facility],[address], [place], [address], [employer] 08/28/2025 16:03:46 OBGyn Episode No OBEpisode recorded.
--- OUTSIDE RECORDS SUMMARY | 2025-09-27 12:17 | XMS_ITS | Continuity of Care Document ---
Author Organization [facility] [employer] [facility] Address [address] [place] [address] Care Team Providers Care Consumer Loan Underwriter Name Role Phone DICKSON SAEZ Primary Care Provider [phone] HIM [facility] OTHER Assessment No assessment recorded. Plan of Treatment Reminders Order Date Submit Date Provider Last Modified By Organization Details Last Modified Time Details Appointments None recorded. Lab urinalysis , dipstick [address] [facility], [address] [place] [address], [address] 14:29:02 Referral None recorded. Procedures None recorded. [...] urology workup Final report Not Available [facility] ([facility]) [address] [place], [address], 08/23/2025 18:05:32 08/21/2008/23/2025 URINE CULTU RE, UROLO GY SAKINA P result 1 COMMEN T Mixed uroge nital lizeth 10,00 0-25, 000 colon y formi ng units per mL Not Available [facility] ([facility]) [address] [place], [address], 08/23/2025 18:05:32 08/21/2008/21/2025 ONE SPECI MEN IDENT [...] of colle ction . Not Available [facility] ([facility]) [address] [facility], [place], [address], 08/22/2025 20:06:16 Result Notes None recorded. Medical [...] Address Organization Details Last Updated DateTime 5 416877. 224 g 98.3 [degF] 20 /min 87 [...] ICD10 Code Diagnosis IMO Codes Diagnosis Note [id number] John Ferrer MD [facility] Medical [address] [address] 08/21/2025 12:52:47 08/21/2025 14:31:53 Acute low back pain 468831706 M54.50 [id number] 92117 [place] Javier Arroyo MD [address] [address] 08/24/2025 12:03:23 08/24/2025 21:36:47 Flank pain 383190589 R10.A3 045967 Patient seen a few days prior with [...] Burnham Member ID Guarantor Name 08/24/2025 1 [facility] - DOS ON OR AFTER 2023 - DUAL ELIGIBLE - [facility] OPTIONS AND ONE CARE (MEDICARE REPLACEMENT/ADV ANTAGE - HMO) Gracy Mead [id number] Gracy Mead Notes Date Note Type Note Provider Name and Address Organization Details Recorded Time 08/24/2025 text/html ROS as noted in the [facility] CRC Nurse Triage Notes (Holly Hutchison): Reason [...] started on abx at the last visit. BARREL CAP SETTER will be with member today. Member reported [...] to seek emergency care. Simran Hutchison RN Dictaphone Technician Organization Information for Mauricio Souza Business Legal Name: [employer]. Address: [address] [place] [address], Fender Repairer: Carlos Woody MD CLIA No.: [id number] Dictaphone Technician POC Test Results from Mauricio Souza Urine Dipstick (12:00:18) Urine leukocytes: 70LEU Urine nitrites: -NIT Urine urobilinogen: 0.2URO Urine protein: 15PRO Urine pH: 6.0pH Urine blood: -BLO Urine specific gravity: 1.010SG Urine ketones: -KET Urine bilirubin: -JOSI Urine glucose: -GLU .................. .................. .................. .................. .................. .................. .................. ............... Dictaphone Technician Note From Mauricio Souza: SC6 responds to the listed address for a 65 yof w/ a c/c of UTI. Upon arrival on scene, pt is found seated in her recliner in the living area of her small and well-kept apartment. She is reclined w/ her feet up, alert, and tracks [facility] on approach. Her face is flushed, but she is otherwise generally well-appearing. No facial droop or one sided weakness are observed, no stridor sonorous respirations, or increased WOB are noted, and she is not bleeding anywhere. BARREL CAP SETTER is on scene to help w/ translation, as pt is Iraqi speaking only. Pt received a call from [employer] this morning informing her she was positive for UTI. Pt was seen by [facility] on of last week and UA/UC [...] was told to have another visit from [facility] today for a retest of UA [...] reported. Ddx: UTI, kidney infection, kidney stone [facility] obtains vital signs and pt is [...] Pt voided her bladder just prior to [facility] arrival, but caught the urine in a hat and left it for [facility] to test[facility] performs UA and results are not convincing of UTI. [facility] contacts [facility] and discusses the above and 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 Pt agrees and chooses to be transported to [facility]. Pt is transported to [facility] by [place]. [facility] is clear. Report completed by JAYY Souza [id number]. .................. .................. .................. .................. .................. .................. .................. ............... [facility] Consulted: David Arroyo .................. .................. .................. .................. .................. .................. .................. ............... Disposition: Liban Arroyo MD [address] [facility],[address], [place], [address], [employer] 08/24/2025 14:24:05 OBGyn Episode No OBEpisode recorded.
--- OUTSIDE RECORDS SUMMARY | 2025-09-27 12:17 | XMS_ITS | Continuity of Care Document ---
Author Organization [employer] [facility] Address [address] [place] [address] Care Team Providers Care Rafter Cutting Machine Operator Name Role Phone DICKSON SAEZ Primary Care Provider [phone] [facility] CCA OTHER Assessment Encounter Date Assessment Date Assessment LastModified by Organization Details LastModified Time 08/26/2025 08/26/2025 I provided real -time medical direction via phone for this encounter and was available for additional phone-based assistance as needed. I have reviewed and agree with the Assessment and Plan as documented by the Liquor Bridge Operator. Patient given the opportunity to ask questions. [...] facial, tongue swelling, SOB, CP, BARRY. Per research methods instructor on the scene, VSS, please see uploaded pictures Please read the research methods instructor note for their exam findings. Impression: Drug [...] Orders prednisone 20 mg tablet 2024 025 [facility]/Pharmacy #[id number], [address] [place], [address], 05:01:11 prednisone 20 mg tablet 2024 025 [facility]/Pharmacy #[id number], [address] [place], [address], 05:01:11 Patient TargetsNo targets recorded. Patient InstructionsNo instructions recorded. Reason for Referral None Reported. Results Created Date Observation Date Name Description Value Unit Range Abnormal Flag Note LastModifiedBy Organization Detail LastModifiedTime 08/21/2008/23/2025 URINE CULTU RE, UROLO GY SAKINA P urine culture, urology workup Final report Not Available [facility] ([facility]) [address] [facility], [place], [address], 08/23/2025 18:05:32 08/21/2008/23/2025 URINE CULTU RE, UROLO GY SAKINA P result 1 COMMEN T Mixed uroge nital lizeth 10,00 0-25, 000 colon y formi ng units per mL Not Available [facility] ([facility]) [address] [facility], [place], [address], 08/23/2025 18:05:32 08/21/2008/21/2025 ONE SPECI MEN IDENT [...] of colle ction . Not Available [facility] ([facility]) [address] [facility], [place], [address], 08/22/2025 20:06:16 Result Notes None recorded. Medical Equipment None Reported. Allergies Allergen ID Allergen Name Allergen Category Reaction Reaction Severity Criticality Documentation Date Start Date Code Code System Note Provider Name and Address Organization Details Recorded Time 45235 cefuroxim e Not available Not available Not [...] Address Organization Details Last Updated DateTime 5 097754. 224 g 98.3 [degF] 18 /min 154.94 [...] ICD10 Code Diagnosis IMO Codes Diagnosis Note [id number] [facility] Medical [address] [address] 08/21/2025 12:52:47 08/21/2025 14:31:53 Acute low back pain 509388608 M54.50 [id number] [address]74 [place] Javier Arroyo MD [address] [address] 08/24/2025 12:03:23 08/24/2025 21:36:47 Flank pain 801208953 R10.A3 565599 Patient seen a few days prior with flank pain and had advised to go to the ED. Recent Urine culture with mixed lizeth from 3 days prior; currently positive LE but neg nitrite. Given 08/08 flank pain for many days, advised to go to ED for imaging and patient agrees. [id number] Heide Silva MD [address] [address] 08/26/2025 16:41:55 08/27/2025 11:47:33 Pruritic rash 34096433 L28.2 067516 Pruritic d isorder of skin 4105451663 L29.9 03043 Health Concerns Section Related Observation LastModified by Organization Detai ls LastModified Time None Recorded Concern Status LastModified by Organization Details LastModified Time None Recorded Payers Encounter Date Sequence Insurance Name Policy Number Policy Burnham Covered Member ID Burnham Member ID Guarantor Name 08/26/2025 1 [facility] - DOS ON OR AFTER 2023 - DUAL ELIGIBLE - [facility] OPTIONS AND ONE CARE (MEDICARE REPLACEMENT/ADV ANTAGE - HMO) Gracy Mead [id number] Gracy Mead Notes Date Note Type Note [...] Comments: 65 y.o female complains of Rash WAITER/WAITRESS BUFFET reporting rash starting yesterday night. Rash started [...] during ER visit and was normal per WAITER/WAITRESS BUFFET. I provided information on the mobile health provider response time and advised the patient and/or caregiver to monitor reported signs and symptoms. I discussed the warning signs of when to seek emergency care. ..................... ..................... ..................... ..................... ..................... ..................... ............... Liquor Bridge Operator Note From Mauricio Souza: SC6 responds to [...] weakness and she is not bleeding anywhere. WAITER/WAITRESS BUFFET is on scene to assist w/ translation and Hx. This [facility] provider sent pt to the ER two days ago to r/o kidney infection. WAITER/WAITRESS BUFFET and pt tell MI she was placed [...] the infection was coming from, according to WAITER/WAITRESS BUFFET. Pt was also given and has taken Morphine, 15mg Q6H. Ddx: abx reaction, morphine rxn [facility] immediately listens to lung sounds and [...] or welts are noted on pt's body. [facility] contacts [facility] and discusses the above. [facility] prescribes a 3-day prednisone taper and orders pt to stop taking the prescribed abx and to immediately call her PCP for an appointment. [facility] order 60mg PO for pt now. [facility] administers 20mg x3 tablets prednisone to pt PO. [facility] informs pt to contact her PCP and get and appointment ERIK. Pt and WAITER/WAITRESS BUFFET are also advised to call 911 immediately if pt develops sob, wheezing, swelling of the lips, face, tongue or feels her throat is swelling, development of n/v/d, or abd pain, as these are all signs of serious allergic reaction. Both give their verbal understanding. [facility] ensures pt has no further questions and she is left in stable condition. MI is clear. Report completed by JAYY Souza [id number]. [facility] Medication Orders: prednisone 20 mg tablet: Administered ..................... ..................... ..................... ..................... ..................... ..................... ............... [facility] Consulted: Heide Silva ..................... ..................... ..................... ..................... ..................... ..................... ............... Disposition: Fulfilled Heide Silva MD [address] [facility],[address], [place], [address], [email or web address] 08/26/2025 19:25:50 OBGyn Episode No OBEpisode recorded.
--- OUTSIDE RECORDS SUMMARY | 2025-09-27 12:17 | XMS_ITS | Clinical Summary ---
Author Organization [facility] Address [address] [address] Phone Care Team Providers Care Flexographic Printing Press Operator Name Role Phone Pcp, Unknown Primary [...] on file Insurance MEDICARE REPLACEMENT [place] [id number] MEDICARE REPLACEMENT [place] [id number] MEDICARE REPLACEMENT MEDICARE REPLACEMENT MEDICARE REPLACEMENT MEDICARE REPLACEMENT MEDICARE REPLACEMENT [place] [address] [place] [address] ONE CARE MEDICARE REPLACEMENT [place] [id number] Care Teams Flexographic Printing Press Operator Relationship Specialty Start Date End Date Pcp, Unknown PCP - General 05/20/20 Additional Source Comments The information contained in this document represents components of the legal health record. It is not the complete legal health record.[facility]
[2025-09-27 12:38] LABS: Resp Syncy Virus RNA Qual PCR NEGATIVE (Negative); SARS COV2 PCR INHOUSE NEGATIVE (Negative)
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
--- NOTE | 2025-09-27 12:57 | ECG_ITS ---
Test Reason : chest pain Blood Pressure : */* mmHG Vent. Rate : 103 BPM Atrial Rate : 103 BPM P-R Int : 162 ms QRS Dur : 94 ms QT Int : 350 ms P-R-T Axes : 26 12 19 degrees QTcB Int : 458 ms Sinus tachycardia Incomplete right bundle branch block Borderline ECG When compared with ECG of 31-Aug-2025 02:28, No significant change was found Referred By: Sonny Camilo Electronically Signed By: MONIK JUAREZ
[2025-09-27] MEDS: Albuterol Sulfate 2.5 MG, Albuterol/Iprat 2.5/0.5MG 3 ML 3 ML INHALE (13:08)
[2025-09-27 13:35] LABS: MANUAL DIFF FLAG NO
[2025-09-27 13:45] LABS: Hematocrit 38.4 % (37.0-47.0); Hemoglobin 11.6 g/dl (12.0-16.0); Imm Gran Abs Auto 0.05 X10*3/uL (0.00-0.03); Imm Gran Pct Auto 0.9 % (0.0-0.4); Lymphocytes Absolute Auto 1.2 X10*3/uL (1.2-4.9); Mean Corpuscular HGB Conc 30.2 g/dl (31.0-35.0); Mean Corpuscular Hemoglobin 27.4 pg (27.0-33.0); Mean Corpuscular Volume 90.6 fL (80.0-98.0); NRBC Abs Auto 0.000 X10*3/uL (0.0-0.012); NRBC Pct Auto 0.0 /100WBC (0.0-0.2); Platelet Count 285 X10*3/uL (160-400); Red Blood Count 4.24 X10*6/uL (4.20-5.50); White Blood Count 5.5 X10*3/uL (4.8-10.8)
[2025-09-27 13:50] LABS: Alanine Aminotransferase 16 U/L (0-31); Albumin Level 4.1 g/dL (3.5-5.0); Alkaline Phosphatase 106 U/L (39-117); Anion Gap 14 (12-20); Aspartate Amino Transferase 28 U/L (5-31); Blood Urea Nitrogen 12 mg/dL (9-16); Calcium 9.0 mg/dL (8.4-10.2); Carbon Dioxide 22 mmol/L (22-29); Chloride 111 mmol/L (96-108); Creatinine Clr Calc Pharmacy 78.2; Estimated Glomerular Filt Rate > 60; Magnesium 2.1 mg/dL (1.6-2.6); Potassium 3.7 mmol/L (3.3-5.1); Sodium 143 mmol/L (135-145); Total Protein 6.8 g/dL (6.5-8.0)
[2025-09-27 13:58] LABS: Appearance Urine Clear; Glucose Urine UA Negative (Negative); PH 7.0 (5.0-9.0); Specific Gravity - Urine <= 1.005 (1.005-1.025); Troponin-I High Sensitivity < 2.7 ng/L (<3.5-17.0)
[2025-09-27] MEDS: Magnesium Sulfate/H2O 2 GM/50 ML PIGGYBACK IV (14:25)
--- NOTE | 2025-09-27 14:50 | PC.NURSE ---
IV placed, sandwich and juice given to pt at this time, pt medicated per DEC. Pt offering no complaints at this time.
[2025-09-27 15:40] LABS: Troponin-I High Sensitivity < 2.7 ng/L (<3.5-17.0)
[2025-09-28 05:47] VITALS: BP 99/57; PULSE 88; RESP 20; TEMP 36.2; O2SAT 95
--- NOTE | 2025-09-28 09:41 | PC.NURSE ---
md informed pt continues to c/o chest pressure and tightness, has not worsened. informed of pt'c coughing req cough medicine and SOB req neb tx.
[2025-09-28] MEDS: Albuterol Sulfate (0.083%) 2.5 MG/3 ML VIAL.NEB INHALE ×2 (10:54→22:15)
[2025-09-28 10:57] VITALS: PULSE 80; RESP 16
[2025-09-28] MEDS: guaiFENesin 200 MG/10 ML 10 ML LIQUID PO (12:00)
[2025-09-28 14:00] VITALS: BP 132/79; PULSE 99; RESP 18; TEMP 36.6; O2SAT 97
--- NOTE | 2025-09-28 14:14 | MHC.CM.PN ---
CM RECEIVED ED CM CONSULT. CM MET WITH PT AND CONTACT LENS INSPECTOR AT BEDSIDE IN ED OVERFLOW. PT LIVES WITH HER FISCAL ECONOMIST 22/05. PT HAS HOME 02/CPAP VIA [facility]. PT HAS A NEBULIZER MACHINE THAT IS BROKEN AND NEEDS A NEW ONE. PT USES A WALKER FOR MOBILITY, HAS A COMMODE AND A SCOOTER FOR LONG DISTANCES. PT HAS A HCP, BELIEVES IT IS ON FILE HERE , CM WILL TRY AND CONFIRM. PCP DR. BUSTOS. DP: Malorie JOHNS PENDING TO DETERMINE NEEDS. PT'S FISCAL ECONOMIST CAN TRANSPORT HOME. REFERRAL TO [facility] (FIRST CHOICE) SHOULD HOME SERVICES BE RECOMMENDED. CM WILL CONTINUE TO FOLLOW FOR DC PLAN.
--- NOTE | 2025-09-28 14:24 | PHA.MEDREC ---
Pharmacy Consult ? Medication Reconciliation Pharmacy has reviewed the medication reconciliation completed by nursing. Errors found when reviewing the med rec: -? Many duplications entered: o?? Two acetaminophens (325mg qid prn & 500mg q6h prn) ? pt takes 650 mg qid prn o?? Eliquis o?? Cromolyn 6xd and cromolyn qid ? pt takes qid prn o?? Lidocaine 5% patch -? Medications that were confirmed in the med rec but pt is no longer taking: o?? Azithromycin last prescribed 01/21 for 28 days o?? Cefuroxime last prescribed 08/25 for 7 days o?? Cetirizine ? pt takes 50mg Benadryl nightly at bedtime o?? Clonazepam 1 mg daily ? pt takes 1 mg in the morning prn anxiety and 2 mg scheduled at bedtime o?? Cyclobenzaprine o?? Diclofenac gel o?? Lidocaine ointment o?? Morphine, last prescribed 08/25 for 2 days o?? Prednisone, last prescribed 08/28 for 4 days o?? Topirmate 100mg BID ? pt takes 50 mg daily at bedtime o?? Zolpidem 10 mg ? pt takes 5mg prn at bedtime
--- NOTE | 2025-09-28 19:41 | MHC.EDTECH ---
Patient had a BM movement back in bed
[2025-09-28 21:40] VITALS: BP 128/75; PULSE 89; RESP 18; TEMP 36.1; O2SAT 100
[2025-09-28 22:18] VITALS: PULSE 103; RESP 18; O2SAT 98
[2025-09-29] MEDS: guaiFENesin 200 MG/10 ML 10 ML LIQUID PO ×2 (00:44→10:51)
[2025-09-29 06:00] VITALS: BP 106/63; PULSE 96; RESP 18; TEMP 36.3; O2SAT 96
--- NOTE | 2025-09-29 06:10 | PC.NURSE ---
pts synthroid not in pyxis. RN sent message to pharmacy. Waiting on delivery to medicate pt.
--- NOTE | 2025-09-29 10:46 | PC.NURSE ---
Pt alert and oriented x4. 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 She continues to report some pleuritic back pain she states started with her respiratory symptoms. Pt states the Gabapentin may help and she will ring if something more needed.
--- NOTE | 2025-09-29 11:15 | PC.NURSE ---
Patient medicated with PRN Robitussin for cough. Reports pleuritic pain 8/10 with cough. PT evaluated the patient earlier this shift, and is recommending discharge home. Case management (Daiana Conteh) aware. Denies other needs at this time. Care ongoing by this RN.
[2025-09-29 11:28] VITALS: O2SAT 95
--- NOTE | 2025-09-29 13:26 | MHC.CM.ED ---
Patient remains in ER overflow. Physical therapy eval completed. Home with services is recommended. Referral has already been made to Astr[facility] SALAZ[facility]. Met with patient and tablet repair. Patient agreeable to d/c home with Astrid SALAZAR and will call her SPIRAL BINDER for transportation home. Patient has a pulmonary appointment with Dr Faria tomorrow. She is concerned about the weather and is curious if Dr Faria can see patient while she is in the ER. T/W spoke with Dr Faria's office. He will not be able to see patient while she is in the ER. Patient aware. Lizette PRADO and Evangelina GILL aware. Continue to monitor for d/c needs.
[2025-09-29 15:01] VITALS: BP 96/52; PULSE 74; RESP 16; TEMP 36.7; O2SAT 95
== END 2025-09-29 15:01 | disposition home or self-care (01) ==
PROVIDERS: Emergency Provider Emergency Medicine; PCP Internal Medicine
DX: J44.1 Chronic obstructive pulmonary disease with (acute) exacerbation (principal); J06.9 Acute upper respiratory infection, unspecified; R06.02 Shortness of breath; R05.9 Cough, unspecified; R07.89 Other chest pain; R00.0 Tachycardia, unspecified; Z99.81 Dependence on supplemental oxygen; Z79.899 Other long term (current) drug therapy; Z03.818 Encounter for observation for suspected exposure to other biological agents ruled out; Z87.891 Personal history of nicotine dependence
CPT/HCPCS: 36415; 71045; 80053; 81001; 83735; 84484; 85025; 87637; 87651; 93005; 94640; 96365; 97162; 99285; J2919; J3475

== ENCOUNTER → 2025-09-27 11:40 | Outpatient (BNV) | payer OTHER, SELFPAY | PROVIDERS: Emergency Provider Emergency Medicine; PCP Internal Medicine; Visit Provider Radiology Diagnostic Radiology | DX: J44.89 Other specified chronic obstructive pulmonary disease (principal) | CPT/HCPCS: 71045 ==

== ENCOUNTER → 2025-09-27 12:57 | Outpatient (BNV) | payer OTHER, SELFPAY | PROVIDERS: Emergency Provider Emergency Medicine; PCP Internal Medicine; Visit Provider Internal Medicine | DX: I45.10 Unspecified right bundle-branch block (principal); R00.0 Tachycardia, unspecified | CPT/HCPCS: 93010 ==

== ENCOUNTER 2025-10-01 14:37 | Outpatient (AMB) | payer OTHER, SELFPAY ==
--- NOTE | 2025-10-01 14:40 | A.OFFVIS_ITS ---
Vital Signs 10/01/25 14:45 Weight 243 lb BP 140/79 H Blood Pressure Location Lt brachial Position Sitting Respiration 16 Pulse 113 H Pulse Source Pulse Oximeter Pulse Oximetry (%) 95 Oxygen Delivery Method Room Air Intake Visit Reasons: S/P Right Diagnostic SIJ Injection Deckhand Sponge Boat Required: Yes Deckhand Sponge Boat Language: Syrup Mixer Services: Deckhand Sponge Boat Present Deckhand Sponge Boat Name: Misty GlassYONGMaribel Information Interpreted: non-clinical & clinical Allergies No Known Allergies Allergy (Verified 10/01/25 15:02) HPI Comments Details: Gracy is back in my office after diagnostic right sacroiliac joint injection. Patient forgot her pain diary however reported today that no pain relief she felt from sacroiliac joint injection. She reports pain across her lumbar spine and on physical exam there is severe tenderness on palpation in the projection of the most lower portion of the lumbar spine. I decided to send this patient for the MRI of the lumbar spine. She also complained on some new condition, she reported numbness sensation in the right upper extremity which is increased when I perform Spurling test is had flexion forward. Patient never had physical therapy for her cervical spine. I will refer her for the physical therapy of the cervical spine. The diagnose will be spondylosis of cervical spine, radiculopathy of the cervical spine. [facility] Medical History Pre-op evaluation Polyarticular osteoarthritis Avascular necrosis of bones of both hips Dysuria Morbid obesity Avascular necrosis Physical exam Well woman exam RSV (acute bronchiolitis due to respiratory syncytial virus) Chest pain Palpitations URI (upper respiratory infection) Snoring Encounter for screening for malignant neoplasm of colon Lumbar pain Urinary incontinence Low blood pressure Allergic reaction UTI (urinary tract infection) Palpitations Morbid obesity with BMI of 40.0-44.9, adult Epigastric abdominal pain Oxygen dependent Hypothyroidism Hypersomnia ILD (interstitial lung disease) ROB on CPAP History of ESBL E. coli infection Obstructive sleep apnea Moderate recurrent major depression Urinary retention Acute and chronic respiratory failure with hypoxia COVID-19 Lupus (systemic lupus erythematosus) Polyarthralgia Neck mass Eosinophilia Severe asthma Asthma-COPD overlap syndrome Trigger finger of right hand Recurrent UTI Tachycardia Obesity Lumbar degenerative disc disease GERD (gastroesophageal reflux disease) Hemangioma Hypovitaminosis D Bipolar 1 disorder Depression with anxiety Insomnia COPD (chronic obstructive pulmonary disease) Surgical History Hx of hand surgery Hx of cardiac catheterization History of esophagogastroduodenoscopy (EGD) History of cystocele History of colonoscopy History of shoulder surgery History of carpal tunnel release History of hysterectomy History of section History of tonsillectomy Family History Father Prostate cancer Mother No problems noted. Sister Nasopharyngeal cancer Social History Household Members: None Household Members Other:: 1 Housing: Apartment Do you presently have visiting nurse or other home services: Yes (Has COMPUTER SYSTEMS SUPPORT SPECIALIST) Alcohol intake: never Comment: sleeping Patient Tobacco Use Status: Former Tobacco user Years Smoked: 14 +/- e-Cigarette/Vaping Use: Never Used Second Hand Smoke Exposure: No Advance Directives Date on File: 01/08/21 service: No Current occupational status: disabled Current occupation: right and left handed--- HAS COMPUTER SYSTEMS SUPPORT SPECIALIST SERVICES Cognitive needs: Yes (walker ) Hearing needs: No Vision needs: Yes Female Reproductive History Menstrual Age of Menarche: 12 Review of Systems Const All systems reviewed & are unremarkable except as noted in HPI and below ENT Reports Normal hearing present Neuro Reports Normal hearing present, Denies Abnormal speech present, Denies confusion and Denies Sensory deficit (Neuro) Psych Denies confusion Physical Exam Const General: no acute distress; No confusion Nutritional Appearance: obese morbidly obese Orientation/consciousness: patient oriented x3 and No confusion Eyes General: appearance normal, both eyes and all related structures Pupils: Equal, round and reactive pupils present EOM: EOMs intact bilaterally Neck Neck: Yes full ROM Chest Chest palpation & inspection: normal inspection of the chest Resp Effort & Inspection: normal respiratory effort, able to speak in complete sentences, normal respiratory pattern, no audible wheezes and no cough Cardio Jugular venous distension: no JVD GI Inspection: Yes normal to inspection Back/Spine/Pelvis Other: Ant test is positive on the right, pelvic compression L pelvic distraction tests are positive on the right, tenderness on palpation in the projection of the sacroiliac joint on the right. Neuro General: patient oriented x3, gait normal and No confusion Cranial nerves: Yes CN's II-XII intact bilaterally, Yes Equal, round and reactive pupils present, Yes Normal hearing present and Yes Ability to bilaterally elevate shoulders present Speech: No Abnormal speech present Gait exam (Neuro): Normal gait present Motor exam (neuro): 5/5 motor strength present throughout Sensory Exam: No Sensory deficit (Neuro) Extrem Other: Crepitus sensation with range of motion of bilateral knees. General: No pedal edema Psych Speech and movement: Normal speech and movement present Affect: normal affect Attitude: cooperative Thought process: Normal thought process present Thought content: Normal thought content present Insight: Good insight present (Psych) Judgement: Good judgement present (Psych) Assessment & Plan Assessment & Plan (1) Avascular necrosis of bones of both hips: Code(s): M87.051 - Idiopathic aseptic necrosis of right femur; M87.052 - Idiopathic aseptic necrosis of left femur Category: Medical (2) Sacroiliitis: Code(s): M46.1 - Sacroiliitis, not elsewhere classified Category: Medical (3) Sacroiliac joint dysfunction: Code(s): M53.3 - Sacrococcygeal disorders, not elsewhere classified Category: Medical (4) Osteoarthritis of knees, bilateral: Comment: R>L Code(s): M17.0 - Bilateral primary osteoarthritis of knee Category: Medical (5) Multiple joint pain: Code(s): M25.50 - Pain in unspecified joint Category: Medical (6) Sacroiliac joint dysfunction of right side: Code(s): M53.3 - Sacrococcygeal disorders, not elsewhere classified Category: Medical (7) Spondylosis of cervical joint without myelopathy: Code(s): M47.812 - Spondylosis without myelopathy or radiculopathy, cervical region Category: Medical (8) Radiculopathy, cervical: Code(s): M54.12 - Radiculopathy, cervical region Category: Medical (9) Spondylosis of lumbar region without myelopathy or radiculopathy: Code(s): M47.816 - Spondylosis without myelopathy or radiculopathy, lumbar region Category: Medical Plan This morbidly obese patient most likely would not benefit from steroid injections into bilateral hip joints because she has avascular necrosis injection of the steroids may aggravate this condition. I referred this patient with avascular necrosis to orthopedics office. Right sacroiliac joint injection resulted in no pain improvement. I will send this patient for the MRI of the lumbar spine. She also started to complain on pain in the neck today. She reports numbness in the right hand. She never had physical therapy for the neck. She needs to go for physical therapy before we will schedule any considerable studies for her neck. She also complains on pain in bilateral knees. In the past she received knee steroid injections as well as viscosupplementation injections. She reported minimal to moderate help from this procedure. We could consider genicular nerve blocks and genicular nerve radiofrequency ablation to help the pain of the patient. Orders: Orders PT Evaluation and Treatment Today M47.812 - Spondylosis without myelopathy or radiculopathy, cervical region, M54.12 - Radiculopathy, cervical region MR lumbar spine wo con Today M47.816 - Spondylosis without myelopathy or radiculopathy, lumbar region Coding Level of Care Code Est Pt Level 3 (00245) Diagnoses Avascular necrosis of bones of both hips M87.051; M87.052 Sacroiliitis M46.1 Sacroiliac joint dysfunction M53.3 Osteoarthritis of knees, bilateral M17.0 Multiple joint pain M25.50 Sacroiliac joint dysfunction of right side M53.3 Spondylosis of cervical joint without myelopathy M47.812 Radiculopathy, cervical M54.12 Spondylosis of lumbar region without myelopathy or radiculopathy M47.816
[2025-10-01 14:45] VITALS: BP 140/79; PULSE 113; RESP 16; O2SAT 95
--- OUTSIDE RECORDS SUMMARY | 2025-10-01 17:31 | XMS_ITS | Continuity of Care Document ---
Author Organization [facility], [facility] Address [address] [place] [address] Care Team Providers Care Clay Mixer Name Role Phone DICKSON SAEZ Primary Care Provider HIM JOCELYN OTHER Assessment Encounter Date Assessment Date Assessment LastModified by Organization Details LastModified Time 08/21/2025 08/21/2025 Impression: 65yo/f referred by SOLAR RESOURCE ASSESSOR for urinary symptoms and back pain. Patient with multiple chronic medical conditions as above, states for the past 2-3 days has been having worsening back pain symptoms, initially seemed to localize to one side, today describing bilateral back/flank pain. SOLAR RESOURCE ASSESSOR has noticed increased odor to urine, but [...] demonstrate a UTI or pyelonephritis. Patient and SOLAR RESOURCE ASSESSOR feel these symptoms are new in the last 2-3 days. I advised that for full evaluation I would recommend patient be transferred to [facility] [place] [facility] for further evaluation and treatment including consideration of diagnostic imaging. Patient and SOLAR RESOURCE ASSESSOR are declining at this time, stating they would prefer to discuss with PCP first. Advised to seek care immediately with any acute worsening or change in symptoms which they understand. [email or web address] Not available 08/21/2025 13:25:07 Plan of Treatment Reminders Order Date Submit Date Provider Last Modified By Organization Details Last Modified Time Details Appointments None recorded. Lab culture, urine 2024 [facility] (Centralized Electronic Ordering - All Locations), Patient Can Go To The Location Of Their Choice, [id number] 20:06:15 urinalysis , dipstick 2024 [facility], [address] [place] [address], [id number] 14:08:49 Referral None recorded. Procedures None recorded. [...] [facility] ([facility]) [address], [place], [address], 08/23/2025 18:05:32 08/21/2008/23/2025 URINE CULTU RE, UROLO GY SAKINA P result 1 COMMEN T Mixed uroge nital lizeth 10,00 0-25, 000 colon y formi ng units per mL Not Available [facility] ([facility]) [address], [place], [address], 08/23/2025 18:05:32 08/21/2008/21/2025 ONE SPECI MEN IDENT [...] [facility] ([facility]) [address], [place], [address], 08/22/2025 20:06:16 Result Notes None recorded. Medical Equipment None Reported. Allergies Allergen ID Allergen Name Allergen Category Reaction Reaction Severity Criticality Documentation Date Start Date Code Code System Note Provider Name and Address Organization Details Recorded Time 60243 cefuroxim e Not available Not available Not [...] Updated DateTime 5 99 % 102 /min 150925. 224 g 154.94 cm 98.1 [degF] 16 [...] ICD10 Code Diagnosis IMO Codes Diagnosis Note [id number] John Ferrer MD [facility] ED Medical [facility] [address] [place] [address] 08/21/2025 12:52:47 08/21/2025 14:31:53 Acute low back pain [id number] M54.50 [id number] Health Concerns Section Related Observation LastModified by Organization Detai ls LastModified Time None Recorded Concern Status LastModified by Organization Details LastModified Time None Recorded Payers Encounter Date Sequence Insurance Name Policy Number Policy Burnham Covered Member ID Burnham Member ID Guarantor Name 08/21/2025 1 [facility] - DOS ON OR AFTER 2023 - DUAL ELIGIBLE - NURSING HOME OPTIONS AND ONE CARE (MEDICARE REPLACEMENT/ADV ANTAGE - HMO) Gracy Mead [id number] Gracy Mead Notes Date Note Type Note Provider Name and Address Organization Details Recorded Time 08/21/2025 text/html ROS as noted in the [facility] Nurse Triage Notes (Nancy Wadsworth): [...] 65 y.o female complains of Urinary Symptoms SOLAR RESOURCE ASSESSOR reporting symptoms. Foul smelling urine and new [...] signs of when to seek emergency care. Vice President Media Relations Organization Information for Kenneth Gonsales Business Legal Name: [employer]. Address: [address] [place] [address], [place] Trimmer: Carlos Woody MD AYESHA No.: [id number] Vice President Media Relations POC Test Results from Kenneth Gonsales Urine Dipstick (12:42:41) Urine leukocytes: 70+MARCOS Urine nitrites: -NIT Urine urobilinogen: 0.2URO Urine protein: 0.3PRO Urine pH: 6.0pH Urine blood: -BLO Urine specific gravity: 1.010SG Urine ketones: 15KET Urine bilirubin: -JOSI Urine glucose: -GLU Attachments uploaded as part of this test result can be found under Documents section. ..................... ..................... ..................... ..................... ..................... ..................... ............... Vice President Media Relations Note From Kenneth Gonsales: [facility] makes pt contact a 65 yo F CC of uti like symptoms for two days. [facility] obtains vital signs. PT provides a clean catch urine sample. [facility] performs urine dipstick test and collects specimen for the lab. PT SOLAR RESOURCE ASSESSOR explains pt for the past two days [...] hospital with IV antibiotics. No known allergies. [facility] contacts [facility] and explains above mentioned. [facility] not convinced it is a UTI. [facility] advises pt be seen in the hospital for a full work up and imaging of the kidneys or reach out to her PCP regarding follow up. PT would rather reach out to PCP. [facility] explains red flags such as worsening pain, unable to hold/void urine, new onset fever, sob, chest pain, n/v. That pt should then seek a higher level of care such as 911. PT understands. Culture to be dropped off at [facility]. [facility] clear. [facility] Lab Orders: culture, urine: Performed urinalysis, dipstick: Performed ..................... ..................... ..................... ..................... ..................... ..................... ............... [facility] Consulted: John Ferrer ..................... ..................... ..................... ..................... ..................... ..................... ............... Disposition: Fulfilled John Ferrer MD [address], [place], [address], [employer] 08/21/2025 13:49:25 OBGyn Episode No OBEpisode recorded.
--- OUTSIDE RECORDS SUMMARY | 2025-10-01 17:31 | XMS_ITS | Clinical Summary ---
Author Organization [facility] Address [address] [address] Phone Care Team Providers Care Bankruptcy Assistant Name Role Phone Pcp, Unknown Primary Care [...] on file Insurance MEDICARE REPLACEMENT [place]O [place] [id number] MEDICARE REPLACEMENT [place] [id number] MEDICARE REPLACEMENT MEDICARE REPLACEMENT MEDICARE REPLACEMENT MEDICARE REPLACEMENT MEDICARE REPLACEMENT MEDIC[place] [address] [place] [address] ONE CARE MEDICARE REPLACEMENT [place]O [place] [id number] Care Teams Bankruptcy Assistant Relationship Specialty Start Date End Date Pcp, Unknown PCP - General 05/20/20 Additional Source Comments The information contained in this document represents components of the legal health record. It is not the complete legal health record.[facility]
--- OUTSIDE RECORDS SUMMARY | 2025-10-01 17:32 | XMS_ITS | Encounter Summary ---
Author Organization [facility] Address [address] [place] [address] Phone Care Team Providers Care Machine Burrer Name Role Phone Pcp, Unknown Primary Care Provider Unavailabl e Encounter Details Date Type Department Care Team (Late st Contact Info) Description 06/20/2020 Transcribe Orders [facility] Specimen Processing [address] [place] [address] Anton Stoddard MD [address] [facility] [address] [place] [address] [email or web address] Encounter for screening laboratory testing for COVID-19 [...] AM EDT) Specimen Source/Descriptio n NASOPHARYNGEAL SWAB [facility] Comment NASOPHARYNGEAL SWAB [facility] SARS-CoV 2 (COVID-19) PCR Not Detected Not Detected [facility] Comment: Negative results do not preclude [...] ORDERABLE S Final Result Performing Organization Address City/[facility]/ZIP Co de Phone Number [address] [address] * COVID-19 PCR Order (06/20/2020 8:00 AM EDT) Specimen Source NASOPHARYNGEAL SWAB (TIRE FINISHER) [facility] COVID Testing Status Sent to [facility] Micro Lab [facility] Other 06/20/2020 8:00 AM EDT 06/20/2020 11:46 AM EDT us Anton Stoddard MD LAB GENERAL ORDERABLES Final Res ult Performing Organization Address City/[facility] Co de Phone Number [address] [address] documented in this encounter Visit Diagnoses Diagnosis Encounter for screening laboratory testing for COVID-19 virus- Primary documented in this encounter Additional Health Concerns Infection Onset Date Last Indicated Resolved Time CoV-Exposed Comment:Recent close contact 06/18/2020 06/18/2020 07/02/2020 1:24 AM EDT CoV-Exposed Comment:Recent close contact 07/10/2020 07/10/2020 07/24/2020 1:23 AM EDT documented as of this encounter Care Teams Machine Burrer Relationship Specialty Start Date End Date Pcp, Unknown PCP - General 05/20/20 documented as of this encounter Additional Source Comments The information contained in this document represents components of the legal health record. It is not the complete legal health record.[facility]
--- OUTSIDE RECORDS SUMMARY | 2025-10-01 17:32 | XMS_ITS | Data Portability ---
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 [email or web address] Not available 08/26/2024 20:23:21 08/21/2025 08/21/2025 Impression: 65yo/f referred by HARDENER HELPER for urinary symptoms and back pain. Patient with multiple chronic medical conditions as above, states for the past 2-3 days has been having worsening back pain symptoms, initially seemed to localize to one side, today describing bilateral back/flank pain. HARDENER HELPER has noticed increased odor to urine, but [...] demonstrate a UTI or pyelonephritis. Patient and HARDENER HELPER feel these symptoms are new in the last 2-3 days. I advised that for full evaluation I would recommend patient be transferred to [facility] ED for further evaluation and treatment including consideration of diagnostic imaging. Patient and HARDENER HELPER are declining at this time, stating they would prefer to discuss with PCP first. Advised to seek care immediately with any acute worsening or change in symptoms which they understand. [email or web address] Not available 08/21/2025 13:25:07 08/26/2025 08/26/2025 I provided real -time medical direction via phone for this encounter and was available for additional phone-based assistance as needed. I have reviewed and agree with the Assessment and Plan as documented by the Manager Infrastructure. Patient given the opportunity to ask questions. [...] facial, tongue swelling, SOB, CP, BARRY. Per trading floor operator on the scene, VSS, please see uploaded pictures Please read the trading floor operator note for their exam findings. Impression: Drug [...] in the field was performed by my trading floor operator colleague, as noted above, I provided [...] . By the instead team and prescribed Oekzztaeiq54 mg PO for a total of three [...] the emergency department. This was based on [email or web address] Not available 08/28/2025 11:20:37 Plan of Treatment Reminders Order Date Submit Date Provider Last Modified By Organization Details Last Modified Time Details Appointments None recorded. Lab urinalysis, dipstick 2024 [facility], [address] [place] [address], [id number] 16:08:37 urinalysis, dipstick 2024 025 [facility], [address] [place] [address], [id number] 14:29:02 culture, urine 2024 025 MAG[facility] (Centralized Electronic Ordering - All Locations), Patient Can Go To The Location Of Their Choice, [id number] 5 20:06:15 urinalysis, dipstick 2024 025 [facility], [address] [place] [address], [id number] 14:08:49 culture, urine 2023 024 MAGDY [facility] (Centralized Electronic Ordering - All Locations), Patient Can Go To The Location Of Their Choice, [address] 4 10:06:26 urinalysis, dipstick 2023 024 [email or web address] [facility], [address] [place] [address], [id number] 4 20:23:24 Referral None recorded. Procedures None recorded. Surgeries None recorded. Imaging None recorded. Medication Orders prednisone 20 mg tablet 2024 025 [id number], [address] [place], [address], 5 05:01:11 prednisone 20 mg tablet 2024 025 [id number], [address] [place], [address], 5 05:01:11 prednisone 20 mg tablet 2024 025 [id number], [address] [place], [address], 5 05:01:11 prednisone 20 mg tablet 2024 025 [id number], [address] [place], [address], 5 05:01:11 cefpodoxime 200 mg tablet 2023 024 [id number], [address] [place] [address], [address], 4 18:25:11 Patient TargetsNo targets recorded. Patient InstructionsNo instructions recorded. Reason for Referral None Reported. Results Created Date Observation Date Name Description Value Unit Range Abnormal Flag Note LastModifiedBy Organization Detail LastModifiedTime 08/26/2008/29/2024 URINE CULTU RE,CO MPREH ENSIV E urine culture,comp rehensive Final report Not Available [facility] ([facility]) [address] [facility], [place], [address], 08/29/2024 10:06:37 08/26/2008/29/2024 URINE CULTU RE,CO MPREH ENSIV E result 1 COMMEN T No growt h in 36 - 48 hours . Not Available [facility] ([facility]) [address] [facility], [place], [address], 08/29/2024 10:06:37 08/21/2008/23/2025 URINE CULTU RE, UROLO GY SAKINA P urine culture, urology workup Final report Not Available [facility] ([facility]) [address] [facility], [place], [address], 08/23/2025 18:05:32 08/21/2008/23/2025 URINE CULTU RE, UROLO GY SAKINA P result 1 COMMEN T Mixed uroge nital lizeth 10,00 0-25, 000 colon y formi ng units per mL Not Available [facility] ([facility]) [address] [facility], [place], [address], 08/23/2025 18:05:32 08/21/2008/21/2025 ONE SPECI MEN IDENT [...] colle ction . Not Available [facility] ([facility]) [address] [facility], [place], [address], 08/22/2025 20:06:16 Result Notes None recorded. Medical Equipment None Reported. Allergies Allergen ID Allergen Name Allergen Category Reaction Reaction Severity Criticality Documentation Date Start Date Code Code System Note Provider Name and Address Organization Details Recorded Time 29051 cefuroxim e Not available Not available Not [...] Updated DateTime 5 99 % 102 /min 893479. 224 g 154.94 cm 98.1 [degF] 16 /min 134/79 mm[Hg] Not Available [facility] - production 5 12:52:55 Date Recorded Body weight Body temperature Respiratory rate Heart rate Oxygen saturation Body height Systolic blood pressure Provider Name and Address Organization Details Last Updated DateTime 5 624146. 224 g 98.3 [degF] 20 /min 87 [...] Address Organization Details Last Updated DateTime 5 768513. 224 g 98.3 [degF] 18 /min 154.94 cm 102 /min 96 % 130/83 mm[Hg] Not Available [employer] - production 16:42:05 Date Recorded Heart rate Body weight Body temperature Respiratory rate Body height Oxygen saturation Systolic And Diastolic Provider Name and Address Organization Details Last Updated DateTime 5 94 /min 20642.4 g 99.1 [degF] 14 /min 157.48 cm [...] 1126 Surya Acevedo MD Main - [facility] [address] [place] [address] 02/18/2022 14:31:32 07/07/2022 13:35:00 Periorbital edema 98291993 H05.229 62yo woman evaluated for months of [...] 1140 Eden Coronado MD Main - [facility] [address] [place] [address] 02/19/2022 09:58:40 07/05/2022 15:20:25 Dysuria 86522312 R30.9 Pt with hx prior UTIs (though [...] assessment and plan as documented by the trading floor operator. I provided real time medical direction for this encounter and was immediatel y available to provide additional phone based assistance as needed. Periorbital edema 367711 00 H05.229 Symptoms persist since last [facility] visit, continuing on allergy tx. urine dip today w/o protein to suggest nephrotic syndomre, recommend PCP f/up for allergy testing/tx . Urine dip also w/ trace ketones but no hx diabetes and normal PO intake, likely contaminat ion from adjacent test strip. F/up formal urinalysis 1495 Kenneth Castellon MD [facility] - [address] [address] 03/10/2022 11:36:32 07/06/2022 14:33:02 Pruritic rash 95851709 L28.2 4072 Braydon Recio MD [address] [phone] 07/18/2022 17:25:40 07/22/2022 13:31:39 Pruritic rash 57701984 L28.2 19221 Gerardo Lunsford MD [address] [address] 08/26/2024 18:22:09 08/26/2024 21:57:44 Acute urinary tract infection 531585077 N39.0 40037 John Ferrer MD [facility] [address] [address] 08/21/2025 12:52:47 08/21/2025 14:31:53 Acute low back pain 595824179 M54.50 [id number] 74576 Francisco Javier Arroyo MD [facility] [address] [address] 08/24/2025 12:03:23 08/24/2025 21:36:47 Flank pain 053370588 R10.A3 [id number] Patient seen a few days prior with flank pain and had advised to go to the ED. Recent Urine culture with mixed lizeth from 3 days prior; currently positive LE but neg nitrite. Given 10/ flank pain for many days, advised to go to ED for imaging and patient agrees. [address] Heide Silva MD [facility] ED Medical [address] [address] 08/26/2025 16:41:55 08/27/2025 11:47:33 Pruritic rash 12333549 L28.2 463580 Pruritic d isorder of skin 0760707630 L29.9 57133 65305 MARTA ZAMBRANO MD [facility] ED Medical [address] [address] 08/28/2025 11:00:53 08/28/2025 19:00:03 Acute allergic reaction 462841207 T78.40XD [id number] Eruption c aused by drug 42930295 L27.0 [id number] Health Concerns Section Related Observation LastModified by Organization Detai ls LastModified Time None Recorded Concern Status LastModified by Organization Details LastModified Time None Recorded Advance Directives Directive None Recorded Payers Insurance Date Sequence Insurance Name Policy Number Policy Burnham Covered Member ID Burnham Member ID Guarantor Name 08/26/2024 1 [facility] - DOS PRIOR TO 2023 - DUAL ELIGIBLE (MEDICARE REPLACEMENT/ADV ANTAGE - HMO) Gracy Robertsy [id number] Gracy Mead 08/28/2025 1 [facility] - DOS ON OR AFTER 2023 - DUAL ELIGIBLE - NURSING HOME OPTIONS AND ONE CARE (MEDICARE REPLACEMENT/ADV ANTAGE - HMO) Gracy Mead [id number] Gracy Mead Notes Date Note Type Note Provider Name and Address Organization Details Recorded Time 08/26/2024 text/html CRC Nurse Triage Notes (Neeru Daniels): Reason For Request: Pt's HARDENER HELPER reporting UTI Chief Complaints: UTI/Pyelonephritis PMH: Heart Disease, COPD/Asthma, Severe Persistent Mental Illness (SPMI) Allergies: No Known Comments: PMH: COPD, early Dementia, heart disease, Reporting UTI symptoms, painful urination, some bloody urine yesterday, none today, Denies any other symptomsReports a UTI months ago, HARDENER HELPER Rachana will be with member today. Will place referral for UTI w/u.verified info: Susana PRADO Manager Infrastructure Organization Information for Pedro Ferrer Business Legal Name: [facility] Address: [address] [place] [address], [place] [address], Cooler Conveyor Loader: Henry MYERS No.: [id number] Manager Infrastructure POC Test Results from Pedro Ferrer Urine Dipstick (18:19:27) Urine leukocytes: 3+ MARCOS Urine nitrites: + NIT Urine urobilinogen: - URO Urine protein: 2+ PRO Urine pH: 6.0 pH Urine blood: trace BLO Urine specific gravity: 1.010 SG Urine ketones: - KET Urine bilirubin: - JOSI Urine glucose: - GLU ..................... ..................... ..................... ..................... ..................... ..................... ............... Manager Infrastructure Note From Pedro Ferrer: Miss Ulrich is [...] is sent to [facility]. I consultative the [facility] will send prescription to pharmacy. Patient's family states they will picking crew supervisor the prescription today. I educated Mrs. [...] were given the opportunity to ask questions. [facility] Lab Orders: culture, urine: Performed ..................... ..................... ..................... ..................... ..................... ..................... ............... Disposition: Fulfilled Gerardo Lunsford MD [address] [place] [address],[address], [place], [address], [employer] 08/26/2024 20:23:43 08/21/2025 text/html ROS as noted in the [facility] CRC Nurse Triage Notes (Nancy Wadsworth): [...] 65 y.o female complains of Urinary Symptoms HARDENER HELPER reporting symptoms. Foul smelling urine and new [...] signs of when to seek emergency care. Manager Infrastructure Organization Information for Kenneth Gonsales Business Legal Name: [employer] Address: [address] [place] [address], Cooler Conveyor Loader: Carlos Woody MD [place] No.: [id number] Manager Infrastructure POC Test Results from Kenneth Gonsales Urine Dipstick (12:42:41) Urine leukocytes: 70+MARCOS Urine nitrites: -NIT Urine urobilinogen: 0.2URO Urine protein: 0.3PRO Urine pH: 6.0pH Urine blood: -BLO Urine specific gravity: 1.010SG Urine ketones: 15KET Urine bilirubin: -JOSI Urine glucose: -GLU Attachments uploaded as part of this test result can be found under Documents section. ..................... ..................... ..................... ..................... ..................... ..................... ............... Manager Infrastructure Note From Kenneth Gonsales: [facility] makes pt contact a 65 yo F CC of uti like symptoms for two days. [facility] obtains vital signs. PT provides a clean catch urine sample. [facility] performs urine dipstick test and collects specimen for the lab. PT HARDENER HELPER explains pt for the past two days [...] hospital with IV antibiotics. No known allergies. [facility] contacts [facility] and explains above mentioned. [facility] not convinced it is a UTI. [facility] advises pt be seen in the hospital for a full work up and imaging of the kidneys or reach out to her PCP regarding follow up. PT would rather reach out to PCP. [facility] explains red flags such as worsening pain, unable to hold/void urine, new onset fever, sob, chest pain, n/v. That pt should then seek a higher level of care such as 911. PT understands. Culture to be dropped off at [facility]. [facility] clear. [facility] Lab Orders: culture, urine: Performed urinalysis, dipstick: Performed ..................... ..................... ..................... ..................... ..................... ..................... ............... [facility] Consulted: John Ferrer ..................... ..................... ..................... ..................... ..................... ..................... ............... Disposition: Fulfilled John Ferrer MD [address] [facility],[address], [place], [address], [employer] 08/21/2025 13:49:25 08/24/2025 text/html ROS as noted [...] started on abx at the last visit. HARDENER HELPER will be with member today. Member reported [...] to seek emergency care. Simran Hutchison RN Manager Infrastructure Organization Information for [employer] Business Legal Name: [employer]. Address: [address] [place] [address], Cooler Conveyor Loader: Carlos Woody MD CLIA No.: [id number] Manager Infrastructure POC Test Results from Mauricio Souza - ALS Urine Dipstick (12:00:18) Urine leukocytes: 70LEU Urine nitrites: -NIT Urine urobilinogen: 0.2URO Urine protein: 15PRO Urine pH: 6.0pH Urine blood: -BLO Urine specific gravity: 1.010SG Urine ketones: -KET Urine bilirubin: -JOSI Urine glucose: -GLU ..................... ..................... ..................... ..................... ..................... ..................... ............... Manager Infrastructure Note From Mauricio Souza: [facility] responds to the listed address for a 65 yof w/ a c/c of UTI. Upon arrival on scene, pt is found seated in her recliner in the living area of her small and well-kept apartment. She is reclined w/ her feet up, alert, and tracks [facility] on approach. Her face is flushed, but she is otherwise generally well-appearing. No facial droop or one sided weakness are observed, no stridor sonorous respirations, or increased WOB are noted, and she is not bleeding anywhere. HARDENER HELPER is on scene to help w/ translation, as pt is Turkmen speaking only. Pt received a call from [facility] this morning informing her she was positive for UTI. Pt was seen by [facility] on of last week and UA/UC [...] was told to have another visit from [facility] today for a retest of UA [...] reported. Ddx: UTI, kidney infection, kidney stone [facility] obtains vital signs and pt is [...] Pt voided her bladder just prior to [facility] arrival, but caught the urine in a hat and left it for [facility] to test. [facility] performs UA and results are not convincing of UTI. 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 Pt agrees and chooses to be transported to [facility]. Pt is transported to [facility] by [facility]. [facility] is clear. Report completed by JAYY Souza [id number]. ..................... ..................... ..................... ..................... ..................... ..................... ............... [facility] Consulted: David Arroyo ..................... ..................... ..................... ..................... ..................... ..................... ............... Disposition: Fulfilled Francisco Javier Arroyo MD [address] [place] [address],[address], [place], [address], [employer] 08/24/2025 14:24:05 08/26/2025 text/html CRC Nurse Triage [...] Comments: 65 y.o female complains of Rash HARDENER HELPER reporting rash starting yesterday night. Rash started [...] during ER visit and was normal per HARDENER HELPER. I provided information on the mobile health provider response time and advised the patient and/or caregiver to monitor reported signs and symptoms. I discussed the warning signs of when to seek emergency care. ..................... ..................... ..................... ..................... ..................... ..................... ............... Manager Infrastructure Note From Mauricio Souza: SC6 responds to [...] weakness and she is not bleeding anywhere. HARDENER HELPER is on scene to assist w/ translation and Hx. This [facility] provider sent pt to the ER two days ago to r/o kidney infection. HARDENER HELPER and pt tell [facility] she was placed [...] the infection was coming from, according to HARDENER HELPER. Pt was also given and has taken Morphine, 15mg Q6H. Ddx: abx reaction, morphine rxn [facility] immediately listens to lung sounds and [...] or welts are noted on pt's body. [facility] contacts [facility] and discusses the above. [facility] prescribes a 3-day prednisone taper and orders pt to stop taking the prescribed abx and to immediately call her PCP for an appointment. [facility] order 60mg PO for pt now. [facility] administers 20mg x3 tablets prednisone to pt PO. [facility] informs pt to contact her PCP and get and appointment ERIK. Pt and HARDENER HELPER are also advised to call 911 immediately if pt develops sob, wheezing, swelling of the lips, face, tongue or feels her throat is swelling, development of n/v/d, or abd pain, as these are all signs of serious allergic reaction. Both give their verbal understanding. [facility] ensures pt has no further questions and she is left in stable condition. [facility] is clear. Report completed by JAYY Souza [id number]. [facility] Medication Orders: prednisone 20 mg tablet: Administered ..................... ..................... ..................... ..................... ..................... ..................... ............... [facility] Consulted: Heide Silva ..................... ..................... ..................... ..................... ..................... ..................... ............... Disposition: Fulfilled Heide Silva MD [address] [place] [address],[address], [place], [phone], [employer] 08/26/2025 19:25:50 08/28/2025 text/html ROS as noted in the [facility] CRC Nurse Triage Notes (Nancy Wadsworth): [...] days w/ no effect. No creams prescribed. HARDENER HELPER using hydrocortisone and Benadryl cream with no [...] signs of when to seek emergency care. Manager Infrastructure Organization Information for Bernard Porter [employer] Legal Name: [facility] Address: [address] [place] [address], [place] [address], Cooler Conveyor Loader: Henry BRUSHAK No.: [id number] Manager Infrastructure POC Test Results from Bernard Porter - ALS Urine Dipstick (10:55:41) Urine leukocytes: -MARCOS Urine nitrites: -NIT Urine urobilinogen: 0.2URO Urine protein: -PRO Urine pH: 5.0pH Urine blood: -BLO Urine specific gravity: 1.005SG Urine ketones: -KET Urine bilirubin: -JOSI Urine glucose: -GLU ..................... ..................... ..................... ..................... ..................... ..................... ............... Manager Infrastructure Note From Bernard Porter: Patient alert and [...] next several days. Family with patient throughout. [facility] Lab Orders: urinalysis, dipstick: Performed [facility] Medication Orders: prednisone 20 mg tablet: Performed ..................... ..................... ..................... ..................... ..................... ..................... ............... [facility] Consulted: Marta Zambrano ..................... ..................... ..................... ..................... ..................... ..................... ............... Disposition: Fulfilled MARTA ZAMBRANO MD [address] [place] [address],[address] [facility], [place], [phone], [employer] 08/28/2025 16:03:46 OBGyn Episode No OBEpisode recorded.
--- OUTSIDE RECORDS SUMMARY | 2025-10-01 17:32 | XMS_ITS | Continuity of Care Document ---
Author Organization [employer] [facility], [facility] Address [address] [place] [address] Care Team Providers Care Stone Planer Name Role Phone DICKSON SAEZ Primary Care Provider [phone] [facility] OTHER Assessment Encounter Date Assessment Date Assessment LastModified by Organization Details LastModified Time 08/26/2025 08/26/2025 I provided real -time medical direction via phone for this encounter and was available for additional phone-based assistance as needed. I have reviewed and agree with the Assessment and Plan as documented by the Milling Machine Set Up Operator. Patient given the opportunity to ask [...] facial, tongue swelling, SOB, CP, BARRY. Per assistant operator on the scene, VSS, please see uploaded pictures Please read the assistant operator note for their exam findings. Impression: [...] Orders prednisone 20 mg tablet 2024 025 [facility] #[id number], [address] [place], [address], 05:01:11 prednisone 20 mg tablet 2024 025 [facility] #[id number], [address] [place], [address], 05:01:11 Patient TargetsNo targets recorded. Patient InstructionsNo instructions recorded. Reason for Referral None Reported. Results Created Date Observation Date Name Description Value Unit Range Abnormal Flag Note LastModifiedBy Organization Detail LastModifiedTime 08/21/2008/23/2025 URINE CULTU RE, UROLO GY SAKINA P urine culture, urology workup Final report Not Available [facility] ([facility]) [address] [facility], [place], [address], 08/23/2025 18:05:32 08/21/2008/23/2025 URINE CULTU RE, UROLO GY SAKINA P result 1 COMMEN T Mixed uroge nital lizeth 10,00 0-25, 000 colon y formi ng units per mL Not Available [facility] ([facility]) [address] [facility], [place], [address], 08/23/2025 18:05:32 08/21/2008/21/2025 ONE SPECI MEN IDENT [...] of colle ction . Not Available [facility] ([facility]) [address] [facility], [place], [address], 08/22/2025 20:06:16 Result Notes None recorded. Medical Equipment None Reported. Allergies Allergen ID Allergen Name Allergen Category Reaction Reaction Severity Criticality Documentation Date Start Date Code Code System Note Provider Name and Address Organization Details Recorded Time 14448 cefuroxim e Not available Not available Not [...] Address Organization Details Last Updated DateTime 5 908435. 224 g 98.3 [degF] 18 /min 154.94 [...] ICD10 Code Diagnosis IMO Codes Diagnosis Note [id number] John Ferrer MD [facility] [address] [address] 08/21/2025 12:52:47 08/21/2025 14:31:53 Acute low back pain 665735500 M54.50 [id number] [id number] Francisco Javier Arroyo MD [address] [address] 08/24/2025 12:03:23 08/24/2025 21:36:47 Flank pain 865228436 R10.A3 140169 Patient seen a few days prior with flank pain and had advised to go to the ED. Recent Urine culture with mixed lizeth from 3 days prior; currently positive LE but neg nitrite. Given 08/08 flank pain for many days, advised to go to ED for imaging and patient agrees. 86767 Heide Silva MD [address] [address] 08/26/2025 16:41:55 08/27/2025 11:47:33 Pruritic rash 71628308 L28.2 612726 Pruritic d isorder of skin 9589359559 L29.9 80849 Health Concerns Section Related Observation LastModified by Organization Detai ls LastModified Time None Recorded Concern Status LastModified by Organization Details LastModified Time None Recorded Payers Encounter Date Sequence Insurance Name Policy Number Policy Burnham Covered Member ID Burnham Member ID Guarantor Name 08/26/2025 1 [facility] - DOS ON OR AFTER 2023 - DUAL ELIGIBLE - CUSTODIAL OPTIONS AND ONE CARE (MEDICARE REPLACEMENT/ADV ANTAGE - HMO) Gracy Mead [id number] Gracy Mead Notes Date Note Type Note [...] Comments: 65 y.o female complains of Rash ELEMENT SETTER reporting rash starting yesterday night. Rash started [...] during ER visit and was normal per ELEMENT SETTER. I provided information on the mobile health provider response time and advised the patient and/or caregiver to monitor reported signs and symptoms. I discussed the warning signs of when to seek emergency care. ..................... ..................... ..................... ..................... ..................... ..................... ............... Milling Machine Set Up Operator Note From Mauricio Souza: SC6 responds [...] weakness and she is not bleeding anywhere. ELEMENT SETTER is on scene to assist w/ translation and Hx. This [facility] provider sent pt to the ER two days ago to r/o kidney infection. ELEMENT SETTER and pt tell MI she was placed [...] the infection was coming from, according to ELEMENT SETTER. Pt was also given and has taken Morphine, 15mg Q6H. Ddx: abx reaction, morphine rxn [facility] immediately listens to lung sounds and finds [...] are noted on pt's body. [facility] contacts [facility] and discusses the above. [facility] prescribes a 3-day prednisone taper and orders pt to stop taking the prescribed abx and to immediately call her PCP for an appointment. [facility] order 60mg PO for pt now. [facility] administers 20mg x3 tablets prednisone to pt PO. [facility] informs pt to contact her PCP and get and appointment ERIK. Pt and ELEMENT SETTER are also advised to call 911 immediately if pt develops sob, wheezing, swelling of the lips, face, tongue or feels her throat is swelling, development of n/v/d, or abd pain, as these are all signs of serious allergic reaction. Both give their verbal understanding. [facility] ensures pt has no further questions and she is left in stable condition. MI is clear. Report completed by JAYY Souza [id number]. [facility] Medication Orders: prednisone 20 mg tablet: Administered ..................... ..................... ..................... ..................... ..................... ..................... ............... [facility] Consulted: Heide Silva ..................... ..................... ..................... ..................... ..................... ..................... ............... Disposition: Fulfilled Heide Silva MD [address] [facility],[address], [place], [address], [place] [employer] 08/26/2025 19:25:50 OBGyn Episode No OBEpisode recorded.
--- OUTSIDE RECORDS SUMMARY | 2025-10-01 17:32 | XMS_ITS | Continuity of Care Document ---
Author Organization [facility] [employer] [facility] Address [address] [place] [address] Care Team Providers Care Boot And Shoe Laborer Name Role Phone DICKSON SAEZ Primary Care Provider HIM [facility] OTHER Assessment No assessment recorded. Plan of Treatment Reminders Order Date Submit Date Provider Last Modified By Organization Details Last Modified Time Details Appointments None recorded. Lab urinalysis , dipstick 2024 025 [facility], [address] [place] [address], [phone] 14:29:02 Referral None recorded. Procedures None recorded. [...] Available [facility] ([facility]) [address] [place], [address], 08/23/2025 18:05:32 08/21/2008/23/2025 URINE CULTU RE, UROLO GY SAKINA P result 1 COMMEN T Mixed uroge nital lizeth 10,00 0-25, 000 colon y formi ng units per mL Not Available [facility] ([facility]) [address] [place], [address], 08/23/2025 18:05:32 08/21/2008/21/2025 ONE SPECI MEN IDENT [...] Not Available [facility] ([facility]) [address] [facility], [place], [place], [address], 08/22/2025 20:06:16 Result Notes None recorded. Medical [...] Address Organization Details Last Updated DateTime 5 780668. 224 g 98.3 [degF] 20 /min 87 [...] ICD10 Code Diagnosis IMO Codes Diagnosis Note [id number] John Ferrer MD [facility] [address] [address] 08/21/2025 12:52:47 08/21/2025 14:31:53 Acute low back pain 360557786 M54.50 [id number] 58247 Francisco Javier Arroyo MD [address] [address] 08/24/2025 12:03:23 08/24/2025 21:36:47 Flank pain 327867204 R10.A3 890398 Patient seen a few days prior with [...] Burnham Member ID Guarantor Name 08/24/2025 1 [facility] - DOS ON OR AFTER 2023 - DUAL ELIGIBLE - ASSISTED OPTIONS AND ONE CARE (MEDICARE REPLACEMENT/ADV ANTAGE - HMO) Gracy Mead [id number] Gracy Mead Notes Date Note Type Note Provider Name and Address Organization Details Recorded Time 08/24/2025 text/html ROS as noted in the [facility] CRC Nurse Triage Notes (Holly Hutchison): [...] started on abx at the last visit. AUTOMAT CAR ATTENDANT will be with member today. Member reported [...] to seek emergency care. Simran Hutchison RN Assistant Boys Track Coach Organization Information for Mauricio Souza Business Legal Name: [employer]. Address: [address] [place] [address], Load Checker: Carlos Woody MD CLIA No.: [id number] Assistant Boys Track Coach POC Test Results from Mauricio Souza Urine Dipstick (12:00:18) Urine leukocytes: 70LEU Urine nitrites: -NIT Urine urobilinogen: 0.2URO Urine protein: 15PRO Urine pH: 6.0pH Urine blood: -BLO Urine specific gravity: 1.010SG Urine ketones: -KET Urine bilirubin: -JOSI Urine glucose: -GLU .................. .................. .................. .................. .................. .................. .................. ............... Assistant Boys Track Coach Note From Mauricio Souza: SC6 responds to the listed address for a 65 yof w/ a c/c of UTI. Upon arrival on scene, pt is found seated in her recliner in the living area of her small and well-kept apartment. She is reclined w/ her feet up, alert, and tracks [facility] on approach. Her face is flushed, but she is otherwise generally well-appearing. No facial droop or one sided weakness are observed, no stridor sonorous respirations, or increased WOB are noted, and she is not bleeding anywhere. AUTOMAT CAR ATTENDANT is on scene to help w/ translation, as pt is Serbian speaking only. Pt received a call from [employer] this morning informing her she was positive for UTI. Pt was seen by [facility] on of last week and UA/UC [...] was told to have another visit from [facility] today for a retest of UA [...] reported. Ddx: UTI, kidney infection, kidney stone [facility] obtains vital signs and pt is [...] Pt voided her bladder just prior to [facility] arrival, but caught the urine in a hat and left it for [facility] to test. [facility] performs UA and results are not convincing of UTI. 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 Pt agrees and chooses to be transported to [facility]. Pt is transported to [facility] by [place]. [facility] is clear. Report completed by JAYY Souza [id number]. .................. .................. .................. .................. .................. .................. .................. ............... [facility] Consulted: David Arroyo .................. .................. .................. .................. .................. .................. .................. ............... Disposition: Liban Arroyo MD [address] [facility],[address], [place], [address], [employer] 08/24/2025 14:24:05 OBGyn Episode No OBEpisode recorded.
--- OUTSIDE RECORDS SUMMARY | 2025-10-01 17:33 | XMS_ITS | Continuity of Care Document ---
Author Organization [place] [employer] [facility], [facility] Address [address] [place] [address] Care Team Providers Care Sales Trainer Name Role Phone DICKSON ASEZ Primary Care Provider [facility] OTHER Assessment Encounter Date Assessment Date Assessment LastModified by Organization Details LastModified Time 08/28/2025 08/28/2025 As noted, we wer e called to see this patient regarding concerns of itchy rash. Evaluation in the field was performed by my wireless cellular technician colleague, as noted above, I provided [...] . By the instead team and prescribed [id number] mg PO for a total of three [...] the emergency department. This was based on [email or web address] Not available 08/28/2025 11:20:37 Plan of Treatment Reminders Order Date Submit Date Provider Last Modified By Organization Details Last Modified Time Details Appointments None recorded. Lab urinalysis, dipstick 2024 025 [facility], [address] [place] [address], [address] 16:08:37 Referral None recorded. Procedures None recorded. Surgeries None recorded. Imaging None recorded. Medication Orders prednisone 20 mg tablet 2024 025 [facility]armacy #[id number], [address] [place], [address], 05:01:11 prednisone 20 mg tablet 2024 025 [facility]acy #[id number], [address] [place], [address], 05:01:11 Patient TargetsNo targets recorded. Patient InstructionsNo instructions recorded. Reason for Referral None Reported. Results Created Date Observation Date Name Description Value Unit Range Abnormal Flag Note LastModifiedBy Organization Detail LastModifiedTime 08/21/2008/23/2025 URINE CULTU RE, UROLO GY SAKINA P urine culture, urology workup Final report Not Available [facility] ([facility]) [address] [facility], [place], [address], 08/23/2025 18:05:32 08/21/2008/23/2025 URINE CULTU RE, UROLO GY SAKINA P result 1 COMMEN T Mixed uroge nital lizeth 10,00 0-25, 000 colon y formi ng units per mL Not Available [facility] ([facility]) [address] [facility], [place], [address], 08/23/2025 18:05:32 08/21/2008/21/2025 ONE SPECI MEN IDENT [...] colle ction . Not Available [facility] ([facility]) [address] [facility], [place], [address], 08/22/2025 20:06:16 Result Notes None recorded. Medical Equipment None Reported. Allergies Allergen ID Allergen Name Allergen Category Reaction Reaction Severity Criticality Documentation Date Start Date Code Code System Note Provider Name and Address Organization Details Recorded Time 43723 cefuroxim e Not available Not available Not [...] Details Last Updated DateTime 5 94 /min 02458.4 g 99.1 [degF] 14 /min 157.48 cm [...] ICD10 Code Diagnosis IMO Codes Diagnosis Note [id number] John Ferrer MD [facility] [address] [address] 08/21/2025 12:52:47 08/21/2025 14:31:53 Acute low back pain 044817165 M54.50 [id number] 31648 Francisco Javier Arroyo MD [facility] [address] [address] 08/24/2025 12:03:23 08/24/2025 21:36:47 Flank pain 277658614 R10.A3 974985 Patient seen a few days prior with flank pain and had advised to go to the ED. Recent Urine culture with mixed lizeth from 3 days prior; currently positive LE but neg nitrite. Given 08/08 flank pain for many days, advised to go to ED for imaging and patient agrees. 52436 Heide Silva MD [facility] Medical [place] [phone] 08/26/2025 16:41:55 08/27/2025 11:47:33 Pruritic rash 84666101 L28.2 258862 Pruritic d isorder of skin 3751698996 L29.9 95735 57819 MARTA GUERRERO MD [facility] Medical [place] [phone] 08/28/2025 11:00:53 08/28/2025 19:00:03 Acute allergic reaction 926636336 T78.40XD 47749462 Eruption c aused by drug 37306453 L27.0 47322055 Health Concerns Section Related Observation LastModified by Organization Detai ls LastModified Time None Recorded Concern Status LastModified by Organization Details LastModified Time None Recorded Payers Encounter Date Sequence Insurance Name Policy Number Policy Burnham Covered Member ID Burnham Member ID Guarantor Name 08/28/2025 1 [facility] - DOS ON OR AFTER 2023 - DUAL ELIGIBLE - PENITENTIARY OPTIONS AND ONE CARE (MEDICARE REPLACEMENT/ADV ANTAGE - HMO) Gracy Mead [id number] Gracy Mead Notes Date Note Type Note [...] days w/ no effect. No creams prescribed. MARINE BIOLOGIST using hydrocortisone and Benadryl cream with no [...] signs of when to seek emergency care. Signal Constructor Organization Information for Bernard Porter [employer] Legal Name: [facility] Address: [address] [place] [address], [place] [id number], Director Manufacturing Engineering: Henry Monreal MD IA No.: [id number] Signal Constructor POC Test Results from Bernard Porter Urine Dipstick (10:55:41) Urine leukocytes: -MARCOS Urine nitrites: -NIT Urine urobilinogen: 0.2URO Urine protein: -PRO Urine pH: 5.0pH Urine blood: -BLO Urine specific gravity: 1.005SG Urine ketones: -KET Urine bilirubin: -JOSI Urine glucose: -GLU ..................... ..................... ..................... ..................... ..................... ..................... ............... Signal Constructor Note From Bernard Porter: Patient alert and [...] next several days. Family with patient throughout. [facility] Lab Orders: urinalysis, dipstick: Performed [facility] Medication Orders: prednisone 20 mg tablet: Performed ..................... ..................... ..................... ..................... ..................... ..................... ............... [facility] Consulted: Marta Guerrero ..................... ..................... ..................... ..................... ..................... ..................... ............... Disposition: Fulfilled MARTA GUERRERO MD [address] [facility],[address], [place], [address], [employer] 08/28/2025 16:03:46 OBGyn Episode No OBEpisode recorded.
== END 2025-10-01 14:54 | disposition home or self-care (01) ==
LOC: HO.PMC 14:38
PROVIDERS: PCP Internal Medicine; Visit Provider Anesthesiology
DX: M87.051 Idiopathic aseptic necrosis of right femur (principal); M87.052 Idiopathic aseptic necrosis of left femur; M46.1 Sacroiliitis, not elsewhere classified; M17.0 Bilateral primary osteoarthritis of knee; M53.3 Sacrococcygeal disorders, not elsewhere classified; M25.50 Pain in unspecified joint; M47.812 Spondylosis without myelopathy or radiculopathy, cervical region; M47.816 Spondylosis without myelopathy or radiculopathy, lumbar region; M54.12 Radiculopathy, cervical region
CPT/HCPCS: 99213

== ENCOUNTER → 2025-10-01 14:37 | Outpatient (BNVA) | payer OTHER, SELFPAY | PROVIDERS: PCP Internal Medicine; Visit Provider Anesthesiology | DX: M87.051 Idiopathic aseptic necrosis of right femur (principal); M87.052 Idiopathic aseptic necrosis of left femur; M46.1 Sacroiliitis, not elsewhere classified; M53.3 Sacrococcygeal disorders, not elsewhere classified; M17.0 Bilateral primary osteoarthritis of knee; M47.22 Other spondylosis with radiculopathy, cervical region; M47.816 Spondylosis without myelopathy or radiculopathy, lumbar region | CPT/HCPCS: 99212 ==

== ENCOUNTER 2025-10-07 19:46 | Emergency (ER) | payer OTHER, SELFPAY ==
--- NOTE | 2025-10-07 | ECG_ITS ---
Test Reason : DYSPNEA Blood Pressure : */* mmHG Vent. Rate : 103 BPM Atrial Rate : 103 BPM P-R Int : 156 ms QRS Dur : 88 ms QT Int : 334 ms P-R-T Axes : 30 10 32 degrees QTcB Int : 437 ms Sinus tachycardia Otherwise normal ECG When compared with ECG of 27-Sep-2025 13:35, No significant change was found Referred By: Generic ED Physician Electronically Signed By: JOAQUIN RODRIGUEZ MD
--- NOTE | ~2025-10-07 | XR_ITS ---
CLINICAL HISTORY: sob, cough 2 view chest x-ray. Comparison: None provided Findings: Heart size is normal. No consolidation or effusion. No acute fracture. Multilevel degenerative changes of the spine. Left reverse shoulder arthroplasty. The visualized upper abdomen is unremarkable. Impression: No acute cardiopulmonary process. This document has been electronically signed by: Mayra Hebert MD on 10/07/2025 21:10:33
[2025-10-07 20:01] VITALS: BP 101/68; BP 113/62; PULSE 111; PULSE 113; RESP 20; TEMP 36.9; O2SAT 95; O2SAT 96; BMI 43.1
[2025-10-07 20:34] LABS: MANUAL DIFF FLAG NO
[2025-10-07 20:45] LABS: Hematocrit 39.3 % (37.0-47.0); Hemoglobin 11.9 g/dl (12.0-16.0); Imm Gran Abs Auto 0.11 X10*3/uL (0.00-0.03); Imm Gran Pct Auto 1.5 % (0.0-0.4); Lymphocytes Absolute Auto 0.5 X10*3/uL (1.2-4.9); Mean Corpuscular HGB Conc 30.3 g/dl (31.0-35.0); Mean Corpuscular Hemoglobin 27.7 pg (27.0-33.0); Mean Corpuscular Volume 91.6 fL (80.0-98.0); NRBC Abs Auto 0.000 X10*3/uL (0.0-0.012); NRBC Pct Auto 0.0 /100WBC (0.0-0.2); Platelet Count 331 X10*3/uL (160-400); Red Blood Count 4.29 X10*6/uL (4.20-5.50); White Blood Count 7.4 X10*3/uL (4.8-10.8)
[2025-10-07 20:51] LABS: Alanine Aminotransferase 28 U/L (0-31); Albumin Level 3.9 g/dL (3.5-5.0); Alkaline Phosphatase 104 U/L (39-117); Anion Gap 10 (12-20); Aspartate Amino Transferase 40 U/L (5-31); Blood Urea Nitrogen 13 mg/dL (9-16); Calcium 9.0 mg/dL (8.4-10.2); Carbon Dioxide 25 mmol/L (22-29); Chloride 112 mmol/L (96-108); Creatinine Clr Calc Pharmacy 78.5; Estimated Glomerular Filt Rate > 60; Potassium 4.8 mmol/L (3.3-5.1); Sodium 142 mmol/L (135-145); Total Protein 7.1 g/dL (6.5-8.0)
[2025-10-07 20:58] LABS: Troponin-I High Sensitivity < 2.7 ng/L (<3.5-17.0)
[2025-10-07 21:14] LABS: Resp Syncy Virus RNA Qual PCR NEGATIVE (Negative); SARS COV2 PCR INHOUSE NEGATIVE (Negative)
--- NOTE | 2025-10-07 22:23 | ED.SOB ---
HPI - SOB/Dyspnea General Chief Complaint: Dyspnea Stated Complaint: SOB following hospital stay for Resp. 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 Pt was seen at [facility] for a COPD exacerbation 09/27-09/29, was discharged with Azithromycin for 7 days and Predisone. She states her symptoms have stayed the same, but was concerned when her cough with green sputum returned and her O2 decreased to 84%. In addition, last night experienced an episode of facial flushing. Denies hemoptysis, sick contacts, recent travel, abd pain, n/v, headaches. Related Data Home Medications ?Medication ?Instructions ?Recorded ?Confirmed oxygen-air delivery systems ##1 08/24/20 09/10/25 bupropion HCl 300 mg 24 hr tablet, 300 mg PO DAILY 08/23/23 09/27/25 extended release clonazepam 1 mg tablet 1 mg PO DAILY PRN Anxiety 01/27/24 09/27/25 gabapentin 400 mg capsule 400 mg PO TID 03/26/24 09/27/25 acetaminophen 325 mg tablet 650 mg PO QID PRN Pain 09/28/25 09/28/25 clonazepam 1 mg tablet 2 mg PO BEDTIME 09/28/25 09/28/25 cromolyn 4 % eye drops 1 drp ophthalmic (eye) QID PRN dry 09/28/25 09/27/25 itchy eyes diphenhydramine HCl 50 mg capsule 50 mg PO BEDTIME 09/28/25 09/28/25 topiramate 50 mg tablet 50 mg PO BEDTIME 09/28/25 09/28/25 zolpidem 5 mg tablet 5 mg PO BEDTIME PRN insomnia 09/28/25 09/28/25 Previous Rx's ?Medication ?Instructions ?Recorded shower seat #1 ea 11/23/20 miscellaneous medical supply #1 ea 12/22/20 electric wheelchair #1 ea 04/30/22 blood pressure kit-extra large #1 ea 08/29/22 wheeled table with drawers #1 ea 12/05/22 adult diapers pull-ups #240 ea 02/13/23 nebulizers (AeroEclipse II #1 ea 05/15/23 Nebulizer) carboxymethylcellulose sodium 0.5 1 drp ophthalmic (eye) BID PRN dry 10/05/23 % eye drops in a dropperette eye(s) 30 days #30 ea disposable gloves #200 ea 06/06/24 flushable wipes #240 ea 06/06/24 underpads (Bed Underpads) #100 ea 07/24/24 recliner with power buttons #1 ea 07/31/24 POWER LIFT RECLINER #1 ea 09/10/24 rosuvastatin 10 mg tablet 10 mg PO DAILY #90 tabs 09/30/24 chair, wheel (Wheel chair) #1 ea 10/03/24 commode (bedside commode) #1 ea 10/03/24 albuterol sulfate 90 mcg/actuation 2 puff inhalation Q4H PRN Wheezing 11/12/24 aerosol inhaler #8.5 grams wheelchair #1 ea 11/27/24 albuterol sulfate 2.5 mg/3 mL 2.5 mg (3 mL) inhalation Q6H PRN 03/18/25 (0.083 %) solution for nebulization for wheezing #150 mL fluticasone fur. 200 mcg-umeclid 1 inh inhalation DAILY 30 days #60 06/20/25 62.5 mcg-vilant 25 mcg ea inhalat.powder (Trelegy Ellipta) chlorhexidine gluconate 0.12 % 15 ml buccal DAILY 30 days #450 mL 07/10/25 mouthwash apixaban 5 mg tablet (Eliquis) 5 mg PO BID 30 days #60 tabs 07/11/25 famotidine 40 mg tablet (Pepcid) 40 mg PO BEDTIME #30 tabs 07/15/25 levothyroxine 50 mcg tablet 50 mcg PO DAILY@0630 #90 tabs 07/15/25 amitriptyline 100 mg tablet 100 mg PO BEDTIME 90 days #90 tabs 07/22/25 cholecalciferol (vitamin D3) 25 25 mcg PO DAILY #30 caps 08/17/25 mcg (1,000 unit) capsule (Vitamin D3) hydrocortisone 1 % topical cream 1 appl topical BID PRN skin 08/29/25 (Anti-Itch (hydrocortisone)) irritation 2 weeks #28.4 grams rollatoe walker with a seat #1 ea 09/05/25 docusate sodium 100 mg capsule 100 mg PO BID #20 caps 09/10/25 (Colace) esomeprazole magnesium 40 mg 40 mg PO DAILY #90 caps 09/10/25 capsule,delayed release lactulose 10 gram/15 mL oral 10 g (15 mL) PO BEDTIME PRN 09/10/25 solution constipation 90 days #3,785 mL azithromycin 250 mg tablet 250 mg PO DAILY 5 days #5 tabs 09/29/25 prednisone 20 mg tablet 20 mg PO BID 4 days #8 tabs 09/29/25 prednisone 20 mg tablet 60 mg (3 x 20 mg) PO DAILY 5 days 10/08/25 #15 tabs Allergies Allergy/AdvReac Type Severity Reaction Status Date / Time Iodinated Contrast Media (IV Allergy Facial Verified 10/07/25 20:16 Contrast Dye) Swelling Review of Systems Review of Systems: Yes all other systems are reviewed and are negative PMFSH Past Medical History Medical History Pre-op evaluation Polyarticular osteoarthritis Avascular necrosis of bones of both hips Dysuria Morbid obesity Avascular necrosis Physical exam Well woman exam RSV (acute bronchiolitis due to respiratory syncytial virus) Chest pain Palpitations URI (upper respiratory infection) Snoring Encounter for screening for malignant neoplasm of colon Lumbar pain Urinary incontinence Low blood pressure Allergic reaction UTI (urinary tract infection) Palpitations Morbid obesity with BMI of 40.0-44.9, adult Epigastric abdominal pain Oxygen dependent Hypothyroidism Hypersomnia ILD (interstitial lung disease) ROB on CPAP History of ESBL E. coli infection Obstructive sleep apnea Moderate recurrent major depression Urinary retention Acute and chronic respiratory failure with hypoxia COVID-19 Lupus (systemic lupus erythematosus) Polyarthralgia Neck mass Eosinophilia Severe asthma Asthma-COPD overlap syndrome Trigger finger of right hand Recurrent UTI Tachycardia Obesity Lumbar degenerative disc disease GERD (gastroesophageal reflux disease) Hemangioma Hypovitaminosis D Bipolar 1 disorder Depression with anxiety Insomnia COPD (chronic obstructive pulmonary disease) Surgical History Hx of hand surgery Hx of cardiac catheterization History of esophagogastroduodenoscopy (EGD) History of cystocele History of colonoscopy History of shoulder surgery History of carpal tunnel release History of hysterectomy History of section History of tonsillectomy Family History Family History Father Prostate cancer Mother No problems noted. Sister Nasopharyngeal cancer Social History Social History Household Members: None Household Members Other:: 1 Housing: Apartment Do you presently have visiting nurse or other home services: Yes (Has [employer]) Alcohol intake: never Comment: sleeping Patient Tobacco Use Status: Former Tobacco user Years Smoked: 14 +/- e-Cigarette/Vaping Use: Never Used Second Hand Smoke Exposure: No Advance Directives Date on File: 01/08/21 service: No Current occupational status: disabled Current occupation: right and left handed--- HAS [employer] Cognitive needs: Yes (walker ) Hearing needs: No Vision needs: Yes Physical Exam Exam: Exam: CONSTITUTIONAL: The patient appears non-toxic, well nourished and in no acute distress. Vital signs as documented. HEAD: Atraumatic, normocephalic. EYES: EOMs grossly intact, pupils equal, conjunctiva clear, no exudate. ENT: Nares patent, no discharge. Airway patent, no audible stridor, visible mucosa is pink and moist without noted lesions. NECK: Trachea is midline, no obvious masses or gross abnormalities. CHEST: Symmetric movement, normal appearance. LUNGS: LS present and CTAB, no w/r/r. Non-labored work of breathing. CARDIAC: Regular Rhythm, S1/S2 appreciated, no murmurs, rubs or gallops. ABDOMEN: Abdomen soft and non-tender x4 quadrants, no palpable masses or organomegaly. : Deferred. EXTREMITIES: Normal tone, moves all extremities spontaneously without reported pain. No obvious acute injury or deformity noted. NEURO: Alert and oriented x3, CN II-XII appear grossly intact. Cerebellar Functioning grossly intact. No obvious sensory or motor deficits. Speech clear and appropriate. PSYCH: normal affect, appropriate eye contact, fluid speech, with appropriate response to questioning. No reported suicidality or homicidality. SKIN: Warm, dry, color appropriate, normal turgor. No rashes noted. Vital Signs: Vital Signs: Last Vital Signs Temp 97.8 F 10/08/25 06:30 Pulse 99 10/08/25 06:30 Resp 20 10/08/25 06:30 BP 114/61 10/08/25 06:30 Pulse Ox 97 10/08/25 06:30 O2 Del Method Room Air 10/08/25 06:30 BMI result Body Mass Index 43.1 CONSTITUTIONAL: The patient appears non-toxic, well nourished and in no acute distress. Vital signs as documented. HEAD: Atraumatic, normocephalic. EYES: EOMs grossly intact, pupils equal, conjunctiva clear, no exudate. ENT: Nares patent, no discharge. Airway patent, no audible stridor, visible mucosa is pink and moist without noted lesions. NECK: Trachea is midline, no obvious masses or gross abnormalities. CHEST: Symmetric movement, normal appearance. LUNGS: LS present and CTAB, no w/r/r. Non-labored work of breathing. CARDIAC: Regular Rhythm, S1/S2 appreciated, no murmurs, rubs or gallops. ABDOMEN: Abdomen soft and non-tender x4 quadrants, no palpable masses or organomegaly. : Deferred. EXTREMITIES: Normal tone, moves all extremities spontaneously without reported pain. No obvious acute injury or deformity noted. NEURO: Alert and oriented x3, CN II-XII appear grossly intact. Cerebellar Functioning grossly intact. No obvious sensory or motor deficits. Speech clear and appropriate. PSYCH: normal affect, appropriate eye contact, fluid speech, with appropriate response to questioning. No reported suicidality or homicidality. SKIN: Warm, dry, color appropriate, normal turgor. No rashes noted. Medications Administered Discontinued Medications Generic Name Dose Route Start Last Admin Trade Name Freq PRN Reason Stop Dose Admin Albuterol Sulfate 2.5 mg/ 5 mg 10/07/25 22:44 10/07/25 22:45 Albuterol Sulfate 2.5 mg INHALE 10/07/25 22:45 5 mg ONCE ONE Administration Methylprednisolone Sodium Succinate 125 mg 10/07/25 21:52 10/07/25 22:13 Methylprednisolone Sod Succ 125 Mg/2 Ml Vial IVPUSH 10/07/25 21:53 125 mg ONCE ONE Administration Medical Decision Making Medical Decision Making [facility] Narrative: Patient is a 65 year old female with a past medical history of COPD, PE currently on eliquis, HLD, osteopenia, GERD, hypothyroid, fibromyalgia, ROB on CPAP presenting today via EMS for low O2 sats, SOB, fever, and chest pain. Pt was seen at [facility] for a COPD exacerbation 09/27-09/29, was discharged with Azithromycin for 7 days and Predisone. She states her symptoms have stayed the same, but was concerned when her cough with green sputum returned and her O2 decreased to 84%. In addition, last night experienced an episode of facial flushing. Denies hemoptysis, sick contacts, recent travel, abd pain, n/v, headaches. On exam, patient is well appearing in NAD. Moderate tachycardia, no fever. Lung sounds are clear on auscultation. Laboratory evaluation reveals no leukocytosis, electrolytes WNL, and troponin is WNL. Chest Xray shows no pleural effusion, consolidation, or acute fracture. EKG performed reveals sinus tachycardia. Viral swabs negative. Patient likely suffering from acute exacerbation of COPD. PE is less likely due to active anticoagulation with Eliquis. We will treat with DuoNeb and solu-medrol. We will reassess following interventions. 5:53 AM 10/08/2025 (Lydia GILL): Patient's lung sounds have improved dramatically following Solu-Medrol. No more wheezing. The patient's ambulatory pulse oximetry maintained between 93-95%, patient is able to converse in full sentences without any evidence of respiratory distress. At this time patient feels comfortable with plan to be discharged home, we will discharge home with prednisone burst and instructions to follow up with pulmonology and PCP. Admission/Observation Consideration of admission/observation: Escalation of care including admission/observation considered Lab Data [facility] Lab Attestation statement: I reviewed the patient's lab results. 10/07/25 20:29 10/07/25 20:29 Labs: Lab Results 10/07/25 10/07/25 Range/Units 20:18 20:29 WBC 7.4 (4.8-10.8) X10*3/uL RBC 4.29 (4.20-5.50) X10*6/uL Hgb 11.9 L (12.0-16.0) g/dl Hct 39.3 (37.0-47.0) % MCV 91.6 (80.0-98.0) fL MCH 27.7 (27.0-33.0) pg MCHC 30.3 L (31.0-35.0) g/dl RDW 15.9 (11.0-16.0) % Plt Count 331 (160-400) X10*3/uL MPV 9.9 (9.4-12.3) fL Immature Gran % (Auto) 1.5 H (0.0-0.4) % Neut % (Auto) 88.5 H (45-73) % Lymph % (Auto) 7.3 L (20-40) % [place] % (Auto) 2.6 (2-11) % Eos % (Auto) 0.0 (0-4) % Baso % (Auto) 0.1 (0-2) % Lymph # (Auto) 0.5 L (1.2-4.9) X10*3/uL [place] # (Auto) 0.2 (0.1-1.2) X10*3/uL Eos # (Auto) 0.0 (0.0-0.4) X10*3/uL Baso # (Auto) 0.0 (0.0-0.2) X10*3/uL Abs Immat Gran (auto) 0.11 H (0.00-0.03) X10*3/uL Absolute Neuts (auto) 6.5 (2.0-8.3) x10*3/uL Absolute Nucleated RBC 0.000 (0.0-0.012) X10*3/uL Nucleated RBC % (auto) 0.0 (0.0-0.2) /100WBC Sodium 142 (135-145) mmol/L Potassium 4.8 D (3.3-5.1) mmol/L Chloride 112 H (96-108) mmol/L Carbon Dioxide 25 (22-29) mmol/L Anion Gap 10 L (12-20) BUN 13 (9-16) mg/dL Creatinine 0.86 (0.5-1.4) mg/dL Estim Creat Clear Calc 78.5 Estimated GFR > 60 Random Glucose 131 H (60-115) mg/dL Calcium 9.0 (8.4-10.2) mg/dL Total Bilirubin 0.1 (0.0-1.0) mg/dL AST 40 H (5-31) U/L ALT 28 (0-31) U/L Alkaline Phosphatase 104 (39-117) U/L Troponin I High Sens < 2.7 (<3.5-17.0) ng/L Total Protein 7.1 (6.5-8.0) g/dL Albumin 3.9 (3.5-5.0) g/dL Influenza Type A (PCR) NEGATIVE (Negative) Influenza Type B (PCR) NEGATIVE (Negative) RSV RNA Qual (PCR) NEGATIVE (Negative) SARS-CoV-2 RNA (RT-PCR) NEGATIVE (Negative) Independent Interpretation I performed an independent interpretation of an: EKG Radiology Impression Discussion of test interpretation with radiology: I have reviewed the radiologist's reading. Radiologist Impression: CLINICAL HISTORY: sob, cough 2 view chest x-ray. Comparison: None provided Findings: Heart size is normal. No consolidation or effusion. No acute fracture. Multilevel degenerative changes of the spine. Left reverse shoulder arthroplasty. The visualized upper abdomen is unremarkable. Impression: No acute cardiopulmonary process. This document has been electronically signed by: Mayra Hebert MD on 10/07/2025 21:10:33 External Record Review External record reviewed: Outpatient record and Prior outpatient labs Prescription Management I considered prescription management with: Pain Medication and Antibiotic Discharge Plan Discharge Clinical Impression: COPD exacerbation Patient Disposition: Home, Self-Care Instructions: COPD (Chronic Obstructive Pulmonary Disease) (ED) Additional Instructions: Thank you for choosing [facility]'s Emergency Department for your care today. Thankfully your x-ray, viral swabs, laboratory evaluation, EKG, exam, and vital signs today are reassuring. At this time there is no indication for admission to the hospital or continued ED observation, and it is safe to discharge you home. Your presentation of symptoms today is consistent with a COPD exacerbation. At this time it is safe to discharge you home with a course of prednisone. Please take prednisone daily as prescribed until it is finished. Please continue using your rescue inhalers and nebulizers as directed. 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 Please also follow up with your primary care physician for re-evaluation, additional management of your symptoms, and continued preventative care. If you do not have a primary care physician, please call the [facility] at [phone] to establish a new primary care physician. While waiting to establish your new primary care physician, you can call our [facility] at [phone] for non-emergency needs. Please return to the emergency department if you develop a severe or sudden change in your symptoms, a fever over 100.4 that does not improve with Tylenol or Ibuprofen, recurrent vomiting, or any other new or worsening symptoms or concerns. Prescriptions: New prednisone 20 mg tablet 60 mg PO DAILY 5 Days Qty: 15 0RF No Action (DME) shower seat See Rx Instructions .Route .MEDSUPPLY Qty: 1 0RF Rx Instructions: As directed (DME) miscellaneous medical supply Misc See Rx Instructions .ROUTE .MEDSUPPLY Qty: 1 0RF Rx Instructions: OVERBED TABLE (DME) electric wheelchair See Rx Instructions .Route .MEDSUPPLY Qty: 1 0RF Rx Instructions: As directed (DME) wheeled table with drawers See Rx Instructions .Route .MEDSUPPLY Qty: 1 0RF Rx Instructions: As directed (DME) adult diapers pull-ups 2Xlarge See Rx Instructions .Route .MEDSUPPLY Qty: 240 6RF Rx Instructions: As directed (DME) nebulizers [AeroEclipse II Nebulizer] Mis See Rx Instructions .Route Qty: 1 0RF Rx Instructions: As directed (DME) flushable wipes See Rx Instructions .Route .MEDSUPPLY Qty: 240 6RF Rx Instructions: As directed (DME) disposable gloves Mis See Rx Instructions .Route Qty: 200 6RF Rx Instructions: As directed (DME) underpads [Bed Underpads] Pad See Rx Instructions .Route Qty: 100 6RF Rx Instructions: As directed (DME) recliner with power buttons See Rx Instructions .Route .MEDSUPPLY Qty: 1 0RF Rx Instructions: As directed (DME) POWER LIFT RECLINER See Rx Instructions .Route .MEDSUPPLY Qty: 1 0RF Rx Instructions: As directed rosuvastatin 10 mg tablet 10 mg PO DAILY Qty: 90 3RF (DME) bedside commode Kit See Rx Instructions .Route Qty: 1 0RF Rx Instructions: As directed (DME) Wheel chair Kit See Rx Instructions .Route Qty: 1 0RF Rx Instructions: As directed (DME) wheelchair See Rx Instructions .Route .MEDSUPPLY Qty: 1 0RF Rx Instructions: As directed albuterol sulfate 2.5 mg /3 mL (0.083 %) solution for nebulization 2.5 mg inhalation Q6H PRN (Reason: for wheezing) Qty: 150 11RF Trelegy Ellipta 200-62.5-25 mcg blister with device 1 inh inhalation DAILY 30 Days Qty: 60 12RF chlorhexidine gluconate 0.12 % mouthwash 15 ml buccal DAILY 30 Days Qty: 450 0RF amitriptyline 100 mg tablet 100 mg PO BEDTIME 90 Days Qty: 90 1RF cholecalciferol (vitamin D3) [Vitamin D3] 25 mcg (1,000 unit) capsule 25 mcg PO DAILY Qty: 30 1RF hydrocortisone [Anti-Itch (HC)] 1 % cream 1 appl topical BID PRN (Reason: skin irritation) 14 Days Qty: 28.4 0RF (DME) rollatoe walker with a seat See Rx Instructions .Route .MEDSUPPLY Qty: 1 0RF Rx Instructions: As directed zolpidem 5 mg tablet 5 mg PO BEDTIME PRN (Reason: insomnia) acetaminophen 325 mg tablet 650 mg PO QID PRN (Reason: Pain) cromolyn 4 % drops 1 drp ophthalmic (eye) QID PRN (Reason: dry itchy eyes) topiramate 50 mg tablet 50 mg PO BEDTIME clonazepam 1 mg tablet 2 mg PO BEDTIME diphenhydramine HCl [Benadryl] 50 mg Capsule 50 mg PO BEDTIME azithromycin 250 mg tablet 250 mg PO DAILY 5 Days Qty: 5 0RF prednisone 20 mg tablet 20 mg PO BID 4 Days Qty: 8 0RF clonazepam 1 mg tablet 1 mg PO DAILY PRN (Reason: Anxiety) (DME) oxygen-air delivery systems Device See Rx Instructions .ROUTE .MEDSUPPLY Qty: 1 Rx Instructions: As directed carboxymethylcellulose sodium 0.5 % dropperette 1 drp ophthalmic (eye) BID PRN (Reason: dry eye(s)) 30 Days Qty: 30 2RF (DME) blood pressure kit-extra large Kit See Rx Instructions .Route Qty: 1 0RF Rx Instructions: As directed bupropion HCl 300 mg tablet extended release 24 hr 300 mg PO DAILY gabapentin 400 mg capsule 400 mg PO TID Eliquis 5 mg tablet 5 mg PO BID 30 Days Qty: 60 11RF albuterol sulfate 90 mcg/actuation HFA aerosol inhaler 2 puff inhalation Q4H PRN (Reason: Wheezing) Qty: 8.5 11RF famotidine [Pepcid] 40 mg tablet 40 mg PO BEDTIME Qty: 30 11RF levothyroxine 50 mcg tablet 50 mcg PO DAILY@0630 Qty: 90 0RF esomeprazole magnesium 40 mg capsule,delayed release(DR/EC) 40 mg PO DAILY Qty: 90 2RF lactulose 10 gram/15 mL solution 10 g PO BEDTIME PRN (Reason: constipation) 90 Days Qty: 3785 2RF docusate sodium [Colace] 100 mg capsule 100 mg PO BID Qty: 20 0RF Referrals: Farideh Starr MD [Primary Care Provider, Internal Medicine] Clinical Impression: COPD exacerbation Interventions: ED Discharge Assessment Last Done: 10/08/25 06:30 Discharge Date/Time: 10/08/25 07:24 Print Language: French
[2025-10-07] MEDS: Albuterol Sulfate 2.5 MG, Albuterol Sulfate (0.083%) 2.5 MG 5 MG INHALE (22:45)
--- OUTSIDE RECORDS SUMMARY | 2025-10-07 23:22 | XMS_ITS | Continuity of Care Document ---
Author Organization [employer] [facility], [facility] Address [address] [place] [address] Care Team Providers Care Real Estate Rep Name Role Phone DICKSON SAEZ Primary Care Provider [facility] OTHER Assessment Encounter Date Assessment Date Assessment LastModified by Organization Details LastModified Time 08/26/2025 08/26/2025 I provided real -time medical direction via phone for this encounter and was available for additional phone-based assistance as needed. I have reviewed and agree with the Assessment and Plan as documented by the Aerospace Engineer Officer Armament. Patient given the opportunity to ask questions. [...] facial, tongue swelling, SOB, CP, BARRY. Per estimator binding on the scene, VSS, please see uploaded pictures Please read the estimator binding note for their exam findings. Impression: Drug [...] 20 mg tablet 2024 025 [facility][id number], [address] [place], [address], 05:01:11 prednisone 20 mg tablet 2024 025 [facility][id number], [address] [place], [address], 05:01:11 Patient TargetsNo targets recorded. Patient InstructionsNo instructions recorded. Reason for Referral None Reported. Results Created Date Observation Date Name Description Value Unit Range Abnormal Flag Note LastModifiedBy Organization Detail LastModifiedTime 08/21/2008/23/2025 URINE CULTU RE, UROLO GY SAKINA P urine culture, urology workup Final report Not Available [facility] ([facility]) [address] [facility], [place], [address], 08/23/2025 18:05:32 08/21/2008/23/2025 URINE CULTU RE, UROLO GY SAKINA P result 1 COMMEN T Mixed uroge nital lizeth 10,00 0-25, 000 colon y formi ng units per mL Not Available [facility] ([facility]) [address] [facility], [place], [address], 08/23/2025 18:05:32 08/21/2008/21/2025 ONE SPECI MEN IDENT [...] of colle ction . Not Available [facility] ([facility]) [address] [facility], [place], [address], 08/22/2025 20:06:16 Result Notes None recorded. Medical Equipment None Reported. Allergies Allergen ID Allergen Name Allergen Category Reaction Reaction Severity Criticality Documentation Date Start Date Code Code System Note Provider Name and Address Organization Details Recorded Time 80879 cefuroxim e Not available Not available Not available Not available 08/26/2025 2194 RxNorm Not Available [facility] - production 5 09:44:16 morphine medicatio n Not available Not available Not available 10/02/2025 7052 RxNorm Not Available bryce - External Data Service - prod 5 14:05:14 Medications Name Sig Start Date Stop Date [...] Not Available Not Available No t Available benzonatate 100 mg capsule Take 1 capsule 3 times a day by oral route for 10 days. 2024 active Not Available Not Available Not Avai lable levothyroxi ne 50 mcg tablet TAKE 1 [...] Address Organization Details Last Updated DateTime 5 870956. 224 g 98.3 [degF] 18 /min 154.94 cm 102 /min 96 % 130/83 mm[Hg] Not Available [facility] - production 16:42:05 Social History None recorded. Functional Status None recorded. Mental Status None recorded. Family History Nothing Reported. Medical History No medical history recorded. Gynecological HistoryNo gynecological history recorded. Obstetrics History GPAL:G 0 P 0 0 0 0 Past Encounters Encounter ID Performer Location Encounter Start Date Encounter Closed Date Diagnosis/Indication Diagnosis SNOMED-CT Code Diagnosis ICD10 Code Diagnosis IMO Codes Diagnosis Note [id number] John Ferrer MD [address] [address] 08/21/2025 12:52:47 08/21/2025 14:31:53 Acute low back pain 222270731 M54.50 [id number] Francisco Javier Arroyo MD [address] [address] 08/24/2025 12:03:23 08/24/2025 21:36:47 Flank pain 495907920 R10.A3 433708 Patient seen a few days prior with flank pain and had advised to go to the ED. Recent Urine culture with mixed lizeth from 3 days prior; currently positive LE but neg nitrite. Given 10/10 flank pain for many days, advised to go to ED for imaging and patient agrees. [id number] Heide Silva MD [address] [address] 08/26/2025 16:41:55 08/27/2025 11:47:33 Pruritic rash 61244720 L28.2 167923 Pruritic d isorder of skin 6273251251 L29.9 98770 Health Concerns Section Related Observation LastModified by Organization Detai ls LastModified Time None Recorded Concern Status LastModified by Organization Details LastModified Time None Recorded Payers Encounter Date Sequence Insurance Name Policy Number Policy Burnham Covered Member ID Burnham Member ID Guarantor Name 08/26/2025 1 [facility] - DOS ON OR AFTER 2023 - DUAL ELIGIBLE - [facility] OPTIONS AND ONE CARE (MEDICARE REPLACEMENT/ADV ANTAGE - HMO) Gracy Mead [id number] Gracy Mead Notes Date Note Type Note Provider Name and Address Organization Details Recorded Time 08/26/2025 text/html CRC Nurse Triage Notes (Nancy Wadsworth): Reason For Request: Last seen 08/24PC requesting help in med reconciliation due to [...] Mental Illness (SPMI) PMH Reviewed at 08/26/2025 Allergies Reviewed at 08/26/2025:42 Comments: 65 y.o female complains of Rash ENROLLMENT ELIGIBILITY REPRESENTATIVE reporting rash starting yesterday night. Rash started [...] during ER visit and was normal per ENROLLMENT ELIGIBILITY REPRESENTATIVE. I provided information on the mobile health provider response time and advised the patient and/or caregiver to monitor reported signs and symptoms. I discussed the warning signs of when to seek emergency care. ..................... ..................... ..................... ..................... ..................... ..................... ............... Aerospace Engineer Officer Armament Note From Mauricio Souza: SC6 responds to [...] weakness and she is not bleeding anywhere. ENROLLMENT ELIGIBILITY REPRESENTATIVE is on scene to assist w/ translation and Hx. This [facility] provider sent pt to the ER two days ago to r/o kidney infection. ENROLLMENT ELIGIBILITY REPRESENTATIVE and pt tell [facility] she was placed [...] the infection was coming from, according to ENROLLMENT ELIGIBILITY REPRESENTATIVE. Pt was also given and has taken Morphine, 15mg Q6H. Ddx: abx reaction, morphine rxn [facility] immediately listens to lung sounds and [...] or welts are noted on pt's body. [facility] contacts [facility] and discusses the above. [facility] prescribes a 3-day prednisone taper and orders pt to stop taking the prescribed abx and to immediately call her PCP for an appointment. [facility] order 60mg PO for pt now. [facility] administers 20mg x3 tablets prednisone to pt PO. [facility] informs pt to contact her PCP and get and appointment ERIK. Pt and ENROLLMENT ELIGIBILITY REPRESENTATIVE are also advised to call 911 immediately if pt develops sob, wheezing, swelling of the lips, face, tongue or feels her throat is swelling, development of n/v/d, or abd pain, as these are all signs of serious allergic reaction. Both give their verbal understanding. [facility] ensures pt has no further questions and she is left in stable condition. [facility] is clear. Report completed by JAYY Souza [id number]. [facility] Medication Orders: prednisone 20 mg tablet: Administered ..................... ..................... ..................... ..................... ..................... ..................... ............... [facility] Consulted: Heide Silva ..................... ..................... ..................... ..................... ..................... ..................... ............... Disposition: Liban Silva MD [address] [facility],[address], [place], [address], [employer] 08/26/2025 19:25:50 OBGyn Episode No OBEpisode recorded.
--- OUTSIDE RECORDS SUMMARY | 2025-10-07 23:25 | XMS_ITS | Continuity of Care Document ---
Author Organization [place] [facility] [place] [facility], [facility] Address [address] [place] [address] Care Team Providers Care Computer Systems Administrator Name Role Phone DICKSON SAEZ Primary Care Provider [facility] JOCELYN OTHER Assessment Encounter Date Assessment Date Assessment LastModified by Organization Details LastModified Time 08/28/2025 08/28/2025 As noted, we wer e called to see this patient regarding concerns of itchy rash. Evaluation in the field was performed by my sailmaker colleague, as noted above, I provided real-time [...] . By the instead team and prescribed Icqvsdujty90 mg PO for a total of three [...] the emergency department. This was based on [email or web address] Not available 08/28/2025 11:20:37 Plan of Treatment Reminders Order Date Submit Date Provider Last Modified By Organization Details Last Modified Time Details Appointments None recorded. Lab urinalysis, dipstick 2024 025 [facility], [address] [place] [address], [address] 16:08:37 Referral None recorded. Procedures None recorded. Surgeries None recorded. Imaging None recorded. Medication Orders prednisone 20 mg tablet 2024 025 [facility]armacy #[id number], [address] [place], [address], 05:01:11 prednisone 20 mg tablet 2024 025 [facility]/Pharmacy #[id number], [address] [place], [address], 05:01:11 Patient TargetsNo targets recorded. Patient InstructionsNo instructions recorded. Reason for Referral None Reported. Results Created Date Observation Date Name Description Value Unit Range Abnormal Flag Note LastModifiedBy Organization Detail LastModifiedTime 08/21/2008/23/2025 URINE CULTU RE, UROLO GY SAKINA P urine culture, urology workup Final report Not Available [facility] ([facility]) [address] [facility], [place], [address], 08/23/2025 18:05:32 08/21/2008/23/2025 URINE CULTU RE, UROLO GY SAKINA P result 1 COMMEN T Mixed uroge nital lizeth 10,00 0-25, 000 colon y formi ng units per mL Not Available [facility] ([facility]) [address] [facility], [place], [address], 08/23/2025 18:05:32 08/21/2008/21/2025 ONE SPECI MEN IDENT [...] of colle ction . Not Available [facility] ([facility]) [address] [facility], [place], [address], 08/22/2025 20:06:16 Result Notes None recorded. Medical Equipment None Reported. Allergies Allergen ID Allergen Name Allergen Category Reaction Reaction Severity Criticality Documentation Date Start Date Code Code System Note Provider Name and Address Organization Details Recorded Time 64543 cefuroxim e Not available Not available Not available Not available 08/26/2025 2194 RxNorm Not Available [facility] - production 09:44:16 morphine medicatio n Not available Not available Not available 10/02/2025 7052 RxNorm Not Available [facility] - External Data Service - prod 14:05:14 Medications Name Sig Start Date Stop [...] Details Last Updated DateTime 5 94 /min 51694.4 g 99.1 [degF] 14 /min 157.48 cm [...] ICD10 Code Diagnosis IMO Codes Diagnosis Note [id number] John Ferrer MD [facility] ED Medical [address] [address] 08/21/2025 12:52:47 08/21/2025 14:31:53 Acute low back pain [id number] M54.50 [id number] Francisco Javier Arroyo MD [address] [address] 08/24/2025 12:03:23 08/24/2025 21:36:47 Flank pain 140851047 R10.A3 474538 Patient seen a few days prior with flank pain and had advised to go to the ED. Recent Urine culture with mixed lizeth from 3 days prior; currently positive LE but neg nitrite. Given 08/08 flank pain for many days, advised to go to ED for imaging and patient agrees. [id number] Heide Silva MD [place] [address] 08/26/2025 16:41:55 08/27/2025 11:47:33 Pruritic rash 57916888 L28.2 901331 Pruritic d isorder of skin 9161901105 L29.9 58647 [id number] MARTA GUERRERO MD [address] [address] 08/28/2025 11:00:53 08/28/2025 19:00:03 Acute allergic reaction 093429192 T78.40XD 72057360 Eruption c aused by drug 82274155 L27.0 12620773 Health Concerns Section Related Observation LastModified by Organization Detai ls LastModified Time None Recorded Concern Status LastModified by Organization Details LastModified Time None Recorded Payers Encounter Date Sequence Insurance Name Policy Number Policy Burnham Covered Member ID Burnham Member ID Guarantor Name 08/28/2025 1 [facility] - DOS ON OR AFTER 2023 - DUAL ELIGIBLE - JAIL OPTIONS AND ONE CARE (MEDICARE REPLACEMENT/ADV ANTAGE - HMO) Gracy Mead [id number] Gracy Mead Notes Date Note Type Note [...] days w/ no effect. No creams prescribed. AN/SYQ 13 NAV/C2 OPERATOR using hydrocortisone and Benadryl cream with no [...] signs of when to seek emergency care. C Wpf Developer Organization Information for Bernard Porter [employer] Legal Name: [facility] Address: [address] [place] [address], [place], [facility], Funeral Home Associate: Henry Monreal MD IA No.: [id number] C Wpf Developer POC Test Results from [facility] Urine Dipstick (10:55:41) Urine leukocytes: -MARCOS Urine nitrites: -NIT Urine urobilinogen: 0.2URO Urine protein: -PRO Urine pH: 5.0pH Urine blood: -BLO Urine specific gravity: 1.005SG Urine ketones: -KET Urine bilirubin: -JOSI Urine glucose: -GLU ..................... ..................... ..................... ..................... ..................... ..................... ............... C Wpf Developer Note From Bernard Porter: Patient alert and [...] next several days. Family with patient throughout. [facility] Lab Orders: urinalysis, dipstick: Performed [facility] Medication Orders: prednisone 20 mg tablet: Performed ..................... ..................... ..................... ..................... ..................... ..................... ............... [facility] Consulted: Marta Guerrero ..................... ..................... ..................... ..................... ..................... ..................... ............... Disposition: Fulfilled MARTA GUERRERO MD [address] [facility],[address], [place], [address], VASQUEZ - LOLA MONIQUE 08/28/2025 16:03:46 OBGyn Episode No OBEpisode recorded.
--- OUTSIDE RECORDS SUMMARY | 2025-10-07 23:25 | XMS_ITS | Continuity of Care Document ---
Author Organization [employer] [facility], [facility] Address [address] [place] [address] Care Team Providers Care Freight And Passenger Agent Name Role Phone DICKSON SAEZ Primary Care Provider [facility] JOCELYN OTHER Assessment Encounter Date Assessment Date Assessment LastModified by Organization Details LastModified Time 08/21/2025 08/21/2025 Impression: 65yo/f referred by AIRLINE TICKET AGENT for urinary symptoms and back pain. Patient with multiple chronic medical conditions as above, states for the past 2-3 days has been having worsening back pain symptoms, initially seemed to localize to one side, today describing bilateral back/flank pain. AIRLINE TICKET AGENT has noticed increased odor to urine, but [...] demonstrate a UTI or pyelonephritis. Patient and AIRLINE TICKET AGENT feel these symptoms are new in the last 2-3 days. I advised that for full evaluation I would recommend patient be transferred to [facility] ED for further evaluation and treatment including consideration of diagnostic imaging. Patient and AIRLINE TICKET AGENT are declining at this time, stating they would prefer to discuss with PCP first. Advised to seek care immediately with any acute worsening or change in symptoms which they understand. [email or web address] Not available 08/21/2025 13:25:07 Plan of Treatment Reminders Order Date Submit Date Provider Last Modified By Organization Details Last Modified Time Details Appointments None recorded. Lab culture, urine 2024 [place] [facility] (Centralized Electronic Ordering - All Locations), Patient Can Go To The Location Of Their Choice, [address] 20:06:15 urinalysis , dipstick 2024 [facility], [address] [place] [address], [address] 14:08:49 Referral None recorded. Procedures None recorded. [...] urology workup Final report Not Available [facility] ([facility]) [address] [facility], [place], [address], 08/23/2025 18:05:32 08/21/2008/23/2025 URINE CULTU RE, UROLO GY SAKINA P result 1 COMMEN T Mixed uroge nital lizeth 10,00 0-25, 000 colon y formi ng units per mL Not Available [facility] ([facility]) [address] [facility], [place], [address], 08/23/2025 18:05:32 08/21/2008/21/2025 ONE SPECI MEN IDENT [...] of colle ction . Not Available [facility] ([facility]) [address], [place], [address], 08/22/2025 20:06:16 Result Notes None recorded. Medical Equipment None Reported. Allergies Allergen ID Allergen Name Allergen Category Reaction Reaction Severity Criticality Documentation Date Start Date Code Code System Note Provider Name and Address Organization Details Recorded Time 82315 cefuroxim e Not available Not available Not available Not available 08/26/20252193 RxNorm Not Available [facility] - production 5 [...] Updated DateTime 5 99 % 102 /min 285903. 224 g 154.94 cm 98.1 [degF] 16 [...] ICD10 Code Diagnosis IMO Codes Diagnosis Note [id number] John Ferrer MD [facility] ED Medical [facility] [address] [place] [address] 08/21/2025 12:52:47 08/21/2025 14:31:53 Acute low back pain 293039055 M54.50 [id number] Health Concerns Section Related Observation LastModified by Organization Detai ls LastModified Time None Recorded Concern Status LastModified by Organization Details LastModified Time None Recorded Payers Encounter Date Sequence Insurance Name Policy Number Policy Brunham Covered Member ID Burnham Member ID Guarantor Name 08/21/2025 1 [facility] - DOS ON OR AFTER 2023 - DUAL ELIGIBLE - LONG TERM OPTIONS AND ONE CARE (MEDICARE REPLACEMENT/ADV ANTAGE - HMO) Gracy Mead [id number] Gracy Mead Notes Date Note Type Note Provider Name and Address Organization Details Recorded Time 08/21/2025 text/html ROS as noted in the [facility] CRC Nurse Triage Notes (Nancy [...] 65 y.o female complains of Urinary Symptoms AIRLINE TICKET AGENT reporting symptoms. Foul smelling urine and new [...] signs of when to seek emergency care. Type Copy Examiner Organization Information for Kenneth Gonsales ISABELL Business Legal Name: [employer] Address: [address] [place] [address], Manager Farm: Carlos Woody MD CLIA No.: [id number] Type Copy Examiner POC Test Results from Kenneth Gonsales ISABELL Urine Dipstick (12:42:41) Urine leukocytes: 70+MARCOS Urine nitrites: -NIT Urine urobilinogen: 0.2URO Urine protein: 0.3PRO Urine pH: 6.0pH Urine blood: -BLO Urine specific gravity: 1.010SG Urine ketones: 15KET Urine bilirubin: -JOSI Urine glucose: -GLU Attachments uploaded as part of this test result can be found under Documents section. ..................... ..................... ..................... ..................... ..................... ..................... ............... Type Copy Examiner Note From Kenneth Gonsales: [facility] makes pt contact a 65 yo F CC of uti like symptoms for two days. [facility] obtains vital signs. PT provides a clean catch urine sample. [facility] performs urine dipstick test and collects specimen for the lab. PT AIRLINE TICKET AGENT explains pt for the past two days [...] hospital with IV antibiotics. No known allergies. [facility] contacts [facility] and explains above mentioned. [facility] not convinced it is a UTI. [facility] advises pt be seen in the hospital for a full work up and imaging of the kidneys or reach out to her PCP regarding follow up. PT would rather reach out to PCP. [facility] explains red flags such as worsening pain, unable to hold/void urine, new onset fever, sob, chest pain, n/v. That pt should then seek a higher level of care such as 911. PT understands. Culture to be dropped off at [facility]. [facility] clear. [facility] Lab Orders: culture, urine: Performed urinalysis, dipstick: Performed ..................... ..................... ..................... ..................... ..................... ..................... ............... [facility] Consulted: John Ferrer ..................... ..................... ..................... ..................... ..................... ..................... ............... Disposition: Fulfilled John Ferrer MD [address] [place] [address],[address], [place], [address], [facility] [employer] [facility] 08/21/2025 13:49:25 OBGyn Episode No OBEpisode recorded.
--- OUTSIDE RECORDS SUMMARY | 2025-10-07 23:25 | XMS_ITS | Clinical Summary ---
Author Organization [facility] Address [address] [address] Phone Care Team Providers Care Ocular Care Aide Name Role Phone Pcp, Unknown Primary Care [...] on file Insurance MEDICARE REPLACEMENT [place]O [place] [id number] MEDICARE REPLACEMENT [place] [id number] MEDICARE REPLACEMENT MEDICARE REPLACEMENT MEDICARE REPLACEMENT MEDICARE REPLACEMENT MEDICARE REPLACEMENT MEDICARE [place] [address] [place] [address] [employer] MEDICARE REPLACEMENT JAIRO [place] [id number] Care Teams Ocular Care Aide Relationship Specialty Start Date End Date Pcp, Unknown PCP - General 05/20/20 Additional Source Comments The information contained in this document represents components of the legal health record. It is not the complete legal health record.[facility]
--- OUTSIDE RECORDS SUMMARY | 2025-10-07 23:26 | XMS_ITS | Continuity of Care Document ---
Author Name [facility], Medical Address [address] [place] [address] Organization Unknown Address [address] [place] [address] Medications No known medications Problems No known problems
--- OUTSIDE RECORDS SUMMARY | 2025-10-07 23:26 | XMS_ITS | Continuity of Care Document ---
Author Organization [facility] Address [address] [place] [address] Care Team Providers Care Sales Support Coordinator Name Role Phone DICKSON SAEZ Primary Care Provider HIM [facility] OTHER Assessment No assessment recorded. Plan of Treatment Reminders Order Date Submit Date Provider Last Modified By Organization Details Last Modified Time Details Appointments None recorded. Lab urinalysis , dipstick 2024 025 [facility], [address] [place] [address], [phone] 14:29:02 Referral None recorded. Procedures None recorded. [...] urology workup Final report Not Available [facility] ([facility]) [address] [place], [address], 08/23/2025 18:05:32 08/21/2008/23/2025 URINE CULTU RE, UROLO GY SAKINA P result 1 COMMEN T Mixed uroge nital lizeth 10,00 0-25, 000 colon y formi ng units per mL Not Available [facility] ([facility]) [address] [place], [address], 08/23/2025 18:05:32 08/21/2008/21/2025 ONE SPECI MEN IDENT [...] of colle ction . Not Available [facility] ([facility]) [address] [facility], [place], [address], 08/22/2025 20:06:16 Result Notes None recorded. Medical Equipment None Reported. Allergies Allergen ID Allergen Name Allergen Category Reaction Reaction Severity Criticality Documentation Date Start Date Code Code System Note Provider Name and Address Organization Details Recorded Time cefuroxim e Not available Not available Not available Not available 08/26/2025 219 RxNorm Not Available [facility] - production 5 [...] and Address Organization Details Last Updated DateTime 228637. 224 g 98.3 [degF] 20 /min 87 [...] ICD10 Code Diagnosis IMO Codes Diagnosis Note [id number] John Ferrer MD [facility] [address] [address] 08/21/2025 12:52:47 08/21/2025 14:31:53 Acute low back pain [id number] M54.50 [id number] Francisco Javier Arroyo MD [facility] [address] [address] 08/24/2025 12:03:23 08/24/2025 21:36:47 Flank pain [id number] R10.A3 [id number] Patient seen a few days prior with flank pain and had advised to go to the ED. Recent Urine culture with mixed ilzeth from 3 days prior; currently positive LE [...] [facility] - DOS ON OR AFTER 2023 - DUAL ELIGIBLE - USP OPTIONS AND ONE CARE (MEDICARE REPLACEMENT/ADV ANTAGE - HMO) Gracy Mead [id number] Gracy Mead Notes Date Note Type Note Provider Name and Address Organization Details Recorded Time 08/24/2025 text/html ROS as noted in the [facility] CRC Nurse Triage Notes (Holly [...] started on abx at the last visit. MANAGER CANCER will be with member today. Member reported [...] to seek emergency care. Simran Hutchison RN Salmon Troll Fisher Organization Information for Mauricio Souza Business Legal Name: [employer]. Address: [address] [place] [address], Business Systems Analyst: Carlos Woody MD CLIA No.: [id number] Salmon Troll Fisher POC Test Results from Mauricio Souza Urine Dipstick (12:00:18) Urine leukocytes: 70LEU Urine nitrites: -NIT Urine urobilinogen: 0.2URO Urine protein: 15PRO Urine pH: 6.0pH Urine blood: -BLO Urine specific gravity: 1.010SG Urine ketones: -KET Urine bilirubin: -JOIS Urine glucose: -GLU .................. .................. .................. .................. .................. .................. .................. ............... Salmon Troll Fisher Note From Mauricio Souza: SC[facility] responds to the listed address for a 65 yof w/ a c/c of UTI. Upon arrival on scene, pt is found seated in her recliner in the living area of her small and well-kept apartment. She is reclined w/ her feet up, alert, and tracks [facility] on approach. Her face is flushed, but she is otherwise generally well-appearing. No facial droop or one sided weakness are observed, no stridor sonorous respirations, or increased WOB are noted, and she is not bleeding anywhere. MANAGER CANCER is on scene to help w/ translation, as pt is Uzbek speaking only. Pt received a call from [employer] this morning informing her she was positive for UTI. Pt was seen by [facility] on of last week and [...] was told to have another visit from [facility] today for a retest of [...] reported. Ddx: UTI, kidney infection, kidney stone [facility] obtains vital signs and pt [...] Pt voided her bladder just prior to [facility] arrival, but caught the urine in a hat and left it for [facility] to test. [facility] performs UA and results are not convincing of UTI. 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 Pt agrees and chooses to be transported to [facility]. Pt is transported to [facility] by Z[facility]. [facility] is clear. Report completed by JAYY Souza [id number]. .................. .................. .................. .................. .................. .................. .................. ............... [facility] Consulted: David Arroyo .................. .................. .................. .................. .................. .................. .................. ............... Disposition: Fulfilled Francisco Javier Arroyo MD [address] [place] [address],[address], [place], [address], [employer] 08/24/2025 14:24:05 OBGyn Episode No OBEpisode recorded.
--- OUTSIDE RECORDS SUMMARY | 2025-10-07 23:26 | XMS_ITS | Continuity of Care Document ---
Author Organization [facility] Address [address] [place] [address] Care Team Providers Care Seaming Inspector Name Role Phone DICKSON SAEZ Primary Care Provider [phone] [facility] OTHER Assessment Encounter Date Assessment Date Assessment LastModified by Organization Details LastModified Time 10/02/2025 10/02/2025 I provided real -time medical direction via phone for this encounter and was available for additional phone-based assistance as needed. I have reviewed and agree with the Assessment and Plan as documented by the Funeral Pre Need Consultant. Patient given the opportunity to ask questions. Our service contacted for an assessment of: cough As per above, patient is an 65 year old female with the past medical history of. Coronary Artery Disease, COPD/Asthma, Severe Persistent Mental Illness (SPMI) Who presents with persistent cough after being evaluated and seen in the ED for cold symptoms, and COPD. Patient has been coughing and her rufj-xih-ikddcwt cough suppressant has not been working. She now has a very sore throat from the coughing. Patient was treated at the hospital on Monday for an upper respiratory infection. Patient's OTC medication reviewed and does have DM in it however patient is only using BID. Per concrete spreader on the scene, VSS Please read the concrete spreader note for their exam findings. Impression: Persistent cough Plan: Increase OTC Rx to QID. Tessalon Pearls prn with 1st dose in the field. REd flags discussed Allergies: Reviewed PCP f/u: We discussed the diagnostic uncertainty [...] particularly fever chills lightheadedness altered mental status [facility] Not available 10/02/2025 16:02:30 Plan of Treatment Reminders Order Date Submit Date Provider Last Modified By Organization Details Last Modified Time Details Appointments None recorded. Lab None recorded. Referral None recorded. Procedures None recorded. Surgeries None recorded. Imaging None recorded. Medication Orders benzonatate 100 mg capsule [address]/Pharmacy #[id number], [address] [place], [address], 16:03:01 benzonatate 100 mg capsule 2024 025 [facility]/Pharmacy #[id number], [address] [place], [address], 16:03:04 Patient TargetsNo targets recorded. Patient InstructionsNo instructions recorded. Reason for Referral None Reported. Medical Equipment None Reported. Allergies Allergen ID Allergen Name Allergen Category Reaction Reaction Severity Criticality Documentation Date Start Date Code Code System Note Provider Name and Address Organization Details Recorded Time 06289 cefuroxim e Not available Not available Not available Not available 08/26/2025 2194 RxNorm Not Available [facility] - production 5 09:44:16 morphine medicatio n Not available Not available Not available 10/02/2025 7052 RxNorm Not Available [place] - External Data Service - prod 14:05:14 [...] temperature Heart rate Respiratory rate Oxygen saturation Systolic And Diastolic Provider Name and Address Organization Details Last Updated DateTime 99.3 [degF] 102 /min 18 /min 96 % 124/86 mm[Hg] Not Available [facility] - production 14:24:54 Social History None recorded. Functional Status None recorded. Mental Status None recorded. Family History Nothing Reported. Medical History No medical history recorded. Gynecological HistoryNo gynecological history recorded. Obstetrics History GPAL:G 0 P 0 0 0 0 Past Encounters Encounter ID Performer Location Encounter Start Date Encounter Closed Date Diagnosis/Indication Diagnosis SNOMED-CT Code Diagnosis ICD10 Code Diagnosis IMO Codes Diagnosis Note [id number] Heide Silva MD [facility] Medical [address] [address] 10/02/2025 14:24:49 10/03/2025 12:01:21 Persistent cough [id number] R05.3 [id number] Health Concerns Section Related Observation LastModified by Organization Detai ls LastModified Time None Recorded Concern Status LastModified by Organization Details LastModified Time None Recorded Payers Encounter Date Sequence Insurance Name Policy Number Policy Burn[place] Covered Member ID Burnham Member ID Guarantor Name 10/02/2025 1 [facility] - DOS ON OR AFTER 2023 - DUAL ELIGIBLE - JAIL OPTIONS AND ONE CARE (MEDICARE REPLACEMENT/ADV ANTAGE - HMO) Gracy Mead [id number] Gracy Mead Notes Date Note Type Note Provider Name and Address Organization Details Recorded Time 10/02/2025 text/html CRC Nurse Triage Notes (Beatriz Owen): Reason For Request: Since Monday she was in the Hospital, and now she does not feel better. She has general Illness, and a cough. Patient Reports: Cough, fever greater than 2 days ; COPDDenies: Increased work of breathing/labored with or without fever Unable to speak in full sentences without distress Discoloration of skin -cyanosis Needs to sleep sitting up, can t catch breath Shortness of breath in setting of confusion History of asthma, increased use of inhaler COVID Exposure Chief Complaints: Common Cold, CoughPMH: Coronary Artery Disease, COPD/Asthma, Severe Persistent Mental Illness (SPMI)PMH Reviewed at 10/02/2025 - : (ET)Allergies Reviewed at 10/02/2025 - (ET)Comments: 65 y.o female complains of Common Cold, CoughPatient self referringPatient was in hospital on Monday for same symptoms was put on prednisone and abx and is still currently taking the prednisone and still not feeling well.Patient has fever, chills, and body achesshortness of breath and productive cough.uses oxygen 2L via nasal cannula.denies nausea/vomiting or diarrhea.Patient is alone at home. Reviewed red flags. I provided information on the mobile health provider response time and advised the patient and/or caregiver to monitor reported signs and symptoms. I discussed the warning signs of when to seek emergency care. ...................... ...................... ...................... ...................... ...................... ...................... ......... Funeral Pre Need Consultant Note From Johny Perez: [place], the home have a 65-year-old female patient with cold symptoms, and COPD. Patient has been coughing and her drxf-vcx-cmqipoj cough suppressant has not been working. She now has a very sore throat from the coughing. Patient was treated at the hospital on Monday for an upper respiratory infection. Patient is alert and oriented times four, and has no noticeable Neuro deficits. Patient has a strong regular pulse rate and is a little tachycardic at 102 bpm. Patient does not have any swelling in her lower extremities. Patient is breathing well setting it between 94 and 96 on room air. Patient does complain of occasionally having shortness of breath and going on her oxygen, she did this morning until her oxygen came up. Patient s lungs sounded clear bilaterally and patient is moving air well. Patient does have a productive cough and is getting a green sputum. Patient has been eating and drinking well, and since she s been on antibiotics, complains of clear urination. Patient skin is warm and dry, and she does have a low-grade temperature at 99.3. At this visit, the patient was assessed and had her vitals taken. [facility] was contacted and given the assessment. suggested patient continues to take her mnem-trr-yyfsbug cough suppressant and for medic to give one tesslon gayle to pt and she would send a prescription for them to her pharmacy. Patient was warned of signs and symptoms and went to call 911. Should things get worse. ...................... ...................... ...................... ...................... ...................... ...................... ......... [facility] Consulted: Heide Silva ...................... ...................... ...................... ...................... ...................... ...................... ......... Disposition: Fulfilled Heide Silva MD [address] [facility],[address], [place], [address], [employer] 10/02/2025 16:03:24 OBGyn Episode No OBEpisode recorded.
--- OUTSIDE RECORDS SUMMARY | 2025-10-07 23:26 | XMS_ITS | Data Portability ---
Author Organization [employer] [facility], [facility] Address [address] [place] [address] Care Team Providers Care Musculoskeletal Physiotherapist Name Role Phone DICKSON SAEZ Primary Care Provider HIM JOCELYN OTHER Assessment Encounter Date Assessment Date Assessment LastModified by Organization Details LastModified Time 08/21/2025 08/21/2025 Impression: 65yo/f referred by MUSIC COMPOSITION TEACHER for urinary symptoms and back pain. Patient with multiple chronic medical conditions as above, states for the past 2-3 days has been having worsening back pain symptoms, initially seemed to localize to one side, today describing bilateral back/flank pain. MUSIC COMPOSITION TEACHER has noticed increased odor to urine, but patient denying any associated urinary symptoms at this time. No dysuria, frequency, hematuria, change in appearance. For medic on scene patient is awake, alert, in no distress. Vitals show low grade tachycardia 102, otherwise re-assuring. No associated chest pain, dyspnea, abdominal pain. No trauma by history. Denies associated neurologic symptoms of numbness/weakness/ paresthesias. Uses a walker at home which she [...] demonstrate a UTI or pyelonephritis. Patient and MUSIC COMPOSITION TEACHER feel these symptoms are new in the last 2-3 days. I advised that for full evaluation I would recommend patient be transferred to [facility] ED for further evaluation and treatment including consideration of diagnostic imaging. Patient and MUSIC COMPOSITION TEACHER are declining at this time, stating they would prefer to discuss with PCP first. Advised to seek care immediately with any acute worsening or change in symptoms which they understand. [email or web address] Not available 08/21/2025 13:25:07 08/26/2025 08/26/2025 I provided real -time medical direction via phone for this encounter and was available for additional phone-based assistance as needed. I have reviewed and agree with the Assessment and Plan as documented by the Work Study Student. Patient given the opportunity to ask questions. [...] facial, tongue swelling, SOB, CP, BARRY. Per certified welding inspector on the scene, VSS, please see uploaded pictures Please read the certified welding inspector note for their exam findings. Impression: Drug [...] particularly fever chills lightheadedness altered mental status Not available 08/26/2025 17:06:03 08/28/2025 08/28/2025 As noted, we wer e called to see this patient regarding concerns of itchy rash. Evaluation in the field was performed by my certified welding inspector colleague, as noted above, I provided real-time direction and supervision for this visit. The evaluation revealed The patient is a 65 year old female with the past medical history of. Coronary Artery Disease, COPD/Asthma, Severe Persistent Mental Illness (SPMI) Who presents with an ongoing allergic reaction rash. Patient who was treated with cefuroxime for a UTI. She was seen on the By the instead team and prescribed [id number] mg PO for a total of three [...] the emergency department. This was based on [id number] Not available 08/28/2025 11:20:37 10/02/2025 10/02/2025 I provided real -time medical direction via phone for this encounter and was available for additional phone-based assistance as needed. I have reviewed and agree with the Assessment and Plan as documented by the Work Study Student. Patient given the opportunity to ask questions. [...] COPD. Patient has been coughing and her hfgi-ykf-fuigsyb cough suppressant has not been working. She now has a very sore throat from the coughing. Patient was treated at the hospital on Monday for an upper respiratory infection. Patient's OTC medication reviewed and does have DM in it however patient is only using BID. Per certified welding inspector on the scene, VSS Please read the certified welding inspector note for their exam findings. Impression: Persistent [...] particularly fever chills lightheadedness altered mental status Not available 10/02/2025 16:02:30 Plan of Treatment Reminders Order Date Submit Date Provider Last Modified By Organization Details Last Modified Time Details Appointments None recorded. Lab urinalysis, dipstick 2024 025 [facility], [address] [place] [address], [id number] 16:08:37 urinalysis, dipstick 2024 025 [facility], [address] [place] [address], [id number] 14:29:02 culture, urine 2024 025 [facility] (Centralized Electronic Ordering - All Locations), Patient Can Go To The Location Of Their Choice, [id number] 20:06:15 urinalysis, dipstick 2024 [facility], [address] [place], [id number] 14:08:49 Referral None recorded. Procedures None recorded. Surgeries None recorded. Imaging None recorded. Medication Orders benzonatate 100 mg capsule 2024 [facility], [address] [place] [address], [address], 16:03:01 benzonatate 100 mg capsule [address] [place], [place] [address]Pharmacy #[facility], [address] [place] [address], [address], 16:03:04 prednisone 20 mg tablet [address] [place], [place] [address]Pharmacy #[facility]71, [address] [place] [address], [address], 05:01:11 prednisone 20 mg tablet [address] [place], [place] [address]Pharmacy #2071, [address] [place], [address], 05:01:11 prednisone 20 mg tablet [address] [place], [place] [address]Pharmacy #[facility]71, [address] [place] [address], [address], 05:01:11 prednisone 20 mg tablet [address] [place], [place] [address]Pharmacy #2071, [address] [place], [address], 05:01:11 Patient TargetsNo targets recorded. Patient InstructionsNo instructions recorded. Reason for Referral None Reported. Results Created Date Observation Date Name Description Value Unit Range Abnormal Flag Note LastModifiedBy Organization Detail LastModifiedTime 08/21/2008/23/2025 URINE CULTU RE, UROLO GY SAKINA P urine culture, urology workup Final report Not Available [facility] ([facility]) [address] [facility], [place], [address], 08/23/2025 18:05:32 08/21/2008/23/2025 URINE CULTU RE, UROLO GY SAKINA P result 1 COMMEN T Mixed uroge nital lizeth 10,00 0-25, 000 colon y formi ng units per mL Not Available [facility] ([facility]) [address] [facility], [place], [address], 08/23/2025 18:05:32 08/21/2008/21/2025 ONE SPECI MEN IDENT [...] of colle ction . Not Available [facility] ([facility]) [address], [place], [address], 08/22/2025 20:06:16 Result Notes None recorded. Medical Equipment None Reported. Allergies Allergen ID Allergen Name Allergen Category Reaction Reaction Severity Criticality Documentation Date Start Date Code Code System Note Provider Name and Address Organization Details Recorded Time 57668 cefuroxim e Not available Not available Not available Not available 08/26/2025 2194 RxNorm Not Available [employer] - production 5 09:44:16 morphine medicatio n Not available Not available Not available 10/02/2025 7052 RxNorm Not Available bryce - External Data [employer] - prod 14:05:14 [...] Updated DateTime 5 99 % 102 /min 603275. 224 g 154.94 cm 98.1 [degF] 16 /min 134/79 mm[Hg] Not Available [employer] [facility] - production 5 12:52:55 Date Recorded Body weight Body temperature Respiratory rate Heart rate Oxygen saturation Body height Systolic blood pressure Provider Name and Address Organization Details Last Updated DateTime 5 927915. 224 g 98.3 [degF] 20 /min 87 /min 99 % 154.94 cm 118 mm[Hg] Not Available [employer] [employer] production 5 12:03:28 Date Recorded Body weight Body temperature Respiratory rate Body height Heart rate Oxygen saturation Systolic And Diastolic Provider Name and Address Organization Details Last Updated DateTime 5 966448. 224 g 98.3 [degF] 18 /min 154.94 cm 102 /min 96 % 130/83 mm[Hg] Not Available [employer] - production 5 16:42:05 Date Recorded Heart rate Body weight Body temperature Respiratory rate Body height Oxygen saturation Systolic And Diastolic Provider Name and Address Organization Details Last Updated DateTime 5 94 /min 04937.4 g 99.1 [degF] 14 /min 157.48 cm 98 % 132/84 mm[Hg] Not Available [employer] - production 11:00:59 Date Recorded Body temperature Heart rate Respiratory rate Oxygen saturation Systolic And Diastolic Provider Name and Address Organization Details Last Updated DateTime 5 99.3 [degF] 102 /min 18 /min 96 % 124/86 mm[Hg] Not Available [employer] [facility] - production 14:24:54 Social History None recorded. [...] Note 1126 Surya Acevedo MD Main - [address] [address] 02/18/2022 14:31:32 07/07/2022 13:35:00 Periorbital edema 06114618 H05.229 62yo woman evaluated for months of [...] 1140 Eden Coronado MD Main - [facility] [address] [place] [address] 02/19/2022 09:58:40 07/05/2022 15:20:25 Dysuria 03799456 R30.9 Pt with hx prior UTIs (though [...] assessment and plan as documented by the certified welding inspector. I provided real time medical direction for this encounter and was immediatel y available to provide additional phone based assistance as needed. Periorbital edema 580528 00 H05.229 Symptoms persist since last [facility] visit, continuing on allergy tx. urine dip today w/o protein to suggest nephrotic syndomre, recommend PCP f/up for allergy testing/tx . Urine dip also w/ trace ketones but no hx diabetes and normal PO intake, likely contaminat ion from adjacent test strip. F/up formal urinalysis 1495 Kenneth Castellon MD [address] [address] 03/10/2022 11:36:32 07/06/2022 14:33:02 Pruritic rash 22873285 L28.2 4072 Braydon Recio MD [place] [phone] 07/18/2022 17:25:40 07/22/2022 13:31:39 Pruritic rash 12319572 L28.2 12504 Gerardo Lunsford MD [place] [phone] 08/26/2024 18:22:09 08/26/2024 21:57:44 Acute urinary tract infection 621844766 N39.0 46372 John Ferrer MD [facility] [address] [address] 08/21/2025 12:52:47 08/21/2025 14:31:53 Acute low back pain 811531749 M54.50 [id number] 38369 Francisco Javier Arroyo MD [address] [address] 08/24/2025 12:03:23 08/24/2025 21:36:47 Flank pain 331743860 R10.A3 [id number] Patient seen a few days prior with flank pain and had advised to go to the ED. Recent Urine culture with mixed lizeth from 3 days prior; currently positive LE but neg nitrite. Given 10/10 flank pain for many days, advised to go to ED for imaging and patient agrees. [address] Heide Silva MD [facility] [address] [address] 08/26/2025 16:41:55 08/27/2025 11:47:33 Pruritic rash 44010044 L28.2 230724 Pruritic d isorder of skin 2025972018 L29.9 42265 83533 MARTA ZAMBRANO MD [facility] [address] [address] 08/28/2025 11:00:53 08/28/2025 19:00:03 Acute allergic reaction 875195219 T78.40XD [id number] Eruption c aused by drug 83960168 L27.0 [id number] 16652 Heide Silva MD [address] [phone] 10/02/2025 14:24:49 10/03/2025 12:01:21 Persistent cough 037154545 R05.3 894196 Health Concerns Section Related Observation LastModified by Organization Detai ls LastModified Time None Recorded Concern Status LastModified by Organization Details LastModified Time None Recorded Advance Directives Directive None Recorded Payers Insurance Date Sequence Insurance Name Policy Number Policy Burnham Covered Member ID Burnham Member ID Guarantor Name 08/26/2024 1 [facility] - DOS PRIOR TO 2023 - DUAL ELIGIBLE (MEDICARE REPLACEMENT/ADV ANTAGE - HMO) Gracy Mead [id number] Gracy Mead 10/02/2025 1 [facility] - DOS ON OR AFTER 2023 - DUAL ELIGIBLE - SHELTER OPTIONS AND ONE CARE (MEDICARE REPLACEMENT/ADV ANTAGE - HMO) Gracy Mead [id number] Gracy Mead Notes Date Note Type Note Provider Name and Address Organization Details Recorded Time 08/21/2025 text/html ROS as noted in the [facility] CRC Nurse Triage Notes (Nancy Wadsworth): [...] 65 y.o female complains of Urinary Symptoms MUSIC COMPOSITION TEACHER reporting symptoms. Foul smelling urine and new lower back pain since yesterday or the day before. Hot and cold on and off - denies fever. New lower back pain - . PRN tylenol w/ minimal effect. B/l flank [...] signs of when to seek emergency care. Work Study Student Organization Information for Kenneth Gonsales [employer]ch Legal Name: [employer]. Address: [address] [place] [address], [employer]: Carlos Woody MD CLIA No.: [id number] Work Study Student POC Test Results from Kenneth Gonsales Urine Dipstick (12:42:41) Urine leukocytes: 70+MARCOS Urine nitrites: -NIT Urine urobilinogen: 0.2URO Urine protein: 0.3PRO Urine pH: 6.0pH Urine blood: -BLO Urine specific gravity: 1.010SG Urine ketones: 15KET Urine bilirubin: -JOSI Urine glucose: -GLU Attachments uploaded as part of this test result can be found under Documents section. ...................... ...................... ...................... ...................... ...................... ...................... ......... Work Study Student Note From Kenneth Gonsales: [facility] makes pt contact a 65 yo F CC of uti like symptoms for two days. [facility] obtains vital signs. PT provides a clean catch urine sample. [facility] performs urine dipstick test and collects specimen for the lab. PT MUSIC COMPOSITION TEACHER explains pt for the past two days [...] hospital with IV antibiotics. No known allergies. [facility] contacts [facility] and explains above mentioned. [facility] not convinced it is a UTI. [facility] advises pt be seen in the hospital for a full work up and imaging of the kidneys or reach out to her PCP regarding follow up. PT would rather reach out to PCP. [facility] explains red flags such as worsening pain, unable to hold/void urine, new onset fever, sob, chest pain, n/v. That pt should then seek a higher level of care such as 911. PT understands. Culture to be dropped off at [facility]. [facility] clear. [facility] Lab Orders: culture, urine: Performed urinalysis, dipstick: Performed ...................... ...................... ...................... ...................... ...................... ...................... ......... [facility] Consulted: John Ferrer ...................... ...................... ...................... ...................... ...................... ...................... ......... Disposition: Fulfilled John Ferrer MD [address] [place] [address],[address] [facility], [place], [phone], [employer] 08/21/2025 13:49:25 08/24/2025 text/html ROS as noted [...] PMH Reviewed at 08/24/2025:12 Allergies Reviewed at 08/24/2025 09:12 Comments: Called member to review lab results [...] started on abx at the last visit. MUSIC COMPOSITION TEACHER will be with member today. Member reported [...] to seek emergency care. Simran Hutchison RN Work Study Student Organization Information for Mauricio Souza Bes[employer] Legal Name: [employer]. Address: [address] [place] [address], [employer]: Carlos Woody MD [facility] No.: [id number] Work Study Student POC Test Results from Mauricio Souza Urine Dipstick (12:00:18) Urine leukocytes: 70LEU Urine nitrites: -NIT Urine urobilinogen: 0.2URO Urine protein: 15PRO Urine pH: 6.0pH Urine blood: -BLO Urine specific gravity: 1.010SG Urine ketones: -KET Urine bilirubin: -JOSI Urine glucose: -GLU ...................... ...................... ...................... ...................... ...................... ...................... ......... Work Study Student Note From Mauricio Souza: SC[facility] responds to the listed address for a 65 yof w/ a c/c of UTI. Upon arrival on scene, pt is found seated in her recliner in the living area of her small and well-kept apartment. She is reclined w/ her feet up, alert, and tracks MI on approach. Her face is flushed, but she is otherwise generally well-appearing. No facial droop or one sided weakness are observed, no stridor sonorous respirations, or increased WOB are noted, and she is not bleeding anywhere. MUSIC COMPOSITION TEACHER is on scene to help w/ translation, as pt is [place] speaking only. Pt received a call from [facility] this morning informing her she was positive for UTI. Pt was seen by [facility] on of last week and UA/UC was [...] was told to have another visit from [facility] today for a retest of UA and [...] reported. Ddx: UTI, kidney infection, kidney stone [facility] obtains vital signs and pt is assessed. [...] Pt voided her bladder just prior to [facility] arrival, but caught the urine in a hat and left it for [facility] to test. [facility] performs UA and results are not convincing of UTI. [facility] contacts [facility] and discusses the above and [facility] recommends imaging of the kidneys due to pt's 10/10 CVA and flank tenderness. Pt agrees and chooses to be transported to [facility]. [facility] [place] [facility] [place] [facility]. [facility] is clear. Report completed by JAYY Souza [id number]. ...................... ...................... ...................... ...................... ...................... ...................... ......... [facility] Consulted: David Arroyo ...................... ...................... ...................... ...................... ...................... ...................... ......... Disposition: Fulfilled Francisco Javier Arroyo MD [address] [place] [address],[address], [place], [phone], [employer] 08/24/2025 14:24:05 08/26/2025 text/html CRC Nurse Triage [...] Reviewed at 08/26/2025 15:42 Allergies Reviewed at 08/26/2025:42 Comments: 65 y.o female complains of Rash MUSIC COMPOSITION TEACHER reporting rash starting yesterday night. Rash started [...] during ER visit and was normal per MUSIC COMPOSITION TEACHER. I provided information on the mobile health provider response time and advised the patient and/or caregiver to monitor reported signs and symptoms. I discussed the warning signs of when to seek emergency care. ...................... ...................... ...................... ...................... ...................... ...................... ......... Work Study Student Note From Mauricio Souza: SC6 responds to [...] weakness and she is not bleeding anywhere. MUSIC COMPOSITION TEACHER is on scene to assist w/ translation and Hx. This [facility] provider sent pt to the ER two days ago to r/o kidney infection. MUSIC COMPOSITION TEACHER and pt tell [facility] she was placed [...] the infection was coming from, according to MUSIC COMPOSITION TEACHER. Pt was also given and has taken Morphine, 15mg Q6H. Ddx: abx reaction, morphine rxn [facility] immediately listens to lung sounds and finds [...] or welts are noted on pt's body. [facility] contacts [facility] and discusses the above. [facility] prescribes a 3-day prednisone taper and orders pt to stop taking the prescribed abx and to immediately call her PCP for an appointment. [facility] order 60mg PO for pt now. [facility] administers 20mg x3 tablets prednisone to pt PO. [facility] informs pt to contact her PCP and get and appointment ERIK. Pt and MUSIC COMPOSITION TEACHER are also advised to call 911 immediately if pt develops sob, wheezing, swelling of the lips, face, tongue or feels her throat is swelling, development of n/v/d, or abd pain, as these are all signs of serious allergic reaction. Both give their verbal understanding. [facility] ensures pt has no further questions and she is left in stable condition. [facility] is clear. Report completed by JAYY Souza [id number]. [facility] Medication Orders: prednisone 20 mg tablet: Administered ...................... ...................... ...................... ...................... ...................... ...................... ......... [facility] Consulted: Heide Silva ...................... ...................... ...................... ...................... ...................... ...................... ......... Disposition: Fulfilled Heide Silva MD [address] [place] [address],[address] [facility], [place], [phone], [employer] 08/26/2025 19:25:50 08/28/2025 text/html ROS as noted in the [facility] CRC Nurse Triage Notes (Nancy Wadsworth): [...] days w/ no effect. No creams prescribed. MUSIC COMPOSITION TEACHER using hydrocortisone and Benadryl cream with no [...] signs of when to seek emergency care. Work Study Student Organization Information for Bernard Proter Besstech Legal Name: [facility] [employer] Address: [address] [place] [address], [place] [address], [employer]: Henry Monreal MD [facility] No.: [id number] Work Study Student POC Test Results from Bernard Porter Urine Dipstick (10:55:41) Urine leukocytes: -MARCOS Urine nitrites: -NIT Urine urobilinogen: 0.2URO Urine protein: -PRO Urine pH: 5.0pH Urine blood: -BLO Urine specific gravity: 1.005SG Urine ketones: -KET Urine bilirubin: -JOSI Urine glucose: -GLU ...................... ...................... ...................... ...................... ...................... ...................... ......... Work Study Student Note From Bernard Porter: Patient alert and [...] next several days. Family with patient throughout. [facility] Lab Orders: urinalysis, dipstick: Performed [facility] Medication Orders: prednisone 20 mg tablet: Performed ...................... ...................... ...................... ...................... ...................... ...................... ......... [facility] Consulted: Marta Zambrano ...................... ...................... ...................... ...................... ...................... ...................... ......... Disposition: Fulfilled MARTA ZAMBRANO MD [address] [facility],[address], [place], [address], [employer] 08/28/2025 16:03:46 10/02/2025 text/html CRC Nurse Triage Notes (Beatriz [...] - : (ET)Allergies Reviewed at 10/02/2025 - : (ET)Comments: 65 y.o female complains of Common [...] ...................... ...................... ...................... ...................... ...................... ...................... ......... Work Study Student Note From Johny Perez: [place], the home have a 65-year-old female patient with cold symptoms, and COPD. Patient has been coughing and her eurf-vlq-whospjj cough suppressant has not been working. She [...] was assessed and had her vitals taken. [facility] was contacted and given the assessment. suggested patient continues to take her coum-jmw-hvwpwtm cough suppressant and for medic to give one tesslon gayle to pt and she would send a prescription for them to her pharmacy. Patient was warned of signs and symptoms and went to call 911. Should things get worse. ...................... ...................... ...................... ...................... ...................... ...................... ......... [facility] Consulted: Heide Silva ...................... ...................... ...................... ...................... ...................... ...................... ......... Disposition: Fulfilled Heide Silva MD [address] [facility],[address], [place], [id number], [facility] - Buzz ReferralsLOLA CHAUHAN 10/02/2025 16:03:24 OBGyn Episode No OBEpisode recorded.
--- OUTSIDE RECORDS SUMMARY | 2025-10-07 23:26 | XMS_ITS | Encounter Summary ---
Author Organization [facility] Address [address] [facility] [address] [place] [address] Phone Care Team Providers Care Ambulatory Technologist Name Role Phone Pcp, Unknown Primary Care Provider Unavailabl e Encounter Details Date Type Department Care Team (Late st Contact Info) Description 06/20/2020 Transcribe Orders [facility] Specimen Processing [address] [place] [address] Anton Stoddard MD [address] [facility] [address], [address] [place] [address] [email or web address] Encounter for screening [...] AM EDT) Specimen Source/Descriptio n NASOPHARYNGEAL SWAB [facility] Comment NASOPHARYNGEAL SWAB [facility] SARS-CoV 2 (COVID-19) PCR Not Detected Not Detected [facility] Comment: Negative results do not preclude SARS-CoV-2 [...] ORDERABLE S Final Result Performing Organization Address City/[facility]/ZIP Co de Phone Number [address] [address] * COVID-19 PCR Order (06/20/2020 8:00 AM EDT) Specimen Source NASOPHARYNGEAL SWAB (SUPERVISING ARCHITECT) [facility] COVID Testing Status [place] [facility] [place] [facility] Other 06/20/2020 8:00 AM EDT 06/20/2020 11:46 AM EDT us Anton Stoddard MD LAB GENERAL ORDERABLES Final Res ult Performing Organization Address City/[facility] Co de Phone Number [address] [address] documented in this encounter Visit Diagnoses Diagnosis Encounter for screening laboratory testing for COVID-19 virus- Primary documented in this encounter Additional Health Concerns Infection Onset Date Last Indicated Resolved Time CoV-Exposed Comment:Recent close contact 06/18/2020 06/18/2020 07/02/2020 1:24 AM EDT CoV-Exposed Comment:Recent close contact 07/10/2020 07/10/2020 07/24/2020 1:23 AM EDT documented as of this encounter Care Teams Ambulatory Technologist Relationship Specialty Start Date End Date Pcp, Unknown PCP - General 05/20/20 documented as of this encounter Additional Source Comments The information contained in this document represents components of the legal health record. It is not the complete legal health record.[facility]
--- NOTE | 2025-10-08 05:42 | PC.NURSE ---
patient ambulating o2 93-95% on room air
[2025-10-08 05:58] VITALS: BP 114/61; PULSE 99; RESP 20; TEMP 36.6; O2SAT 97
[2025-10-08 06:30] VITALS: BP 114/61; PULSE 99; RESP 20; TEMP 36.6; O2SAT 97
== END 2025-10-08 07:24 | disposition home or self-care (01) ==
PROVIDERS: Emergency Provider Emergency Medicine; PCP Internal Medicine
DX: J44.1 Chronic obstructive pulmonary disease with (acute) exacerbation (principal); R06.02 Shortness of breath; R07.9 Chest pain, unspecified; R00.0 Tachycardia, unspecified; R05.9 Cough, unspecified; Z03.818 Encounter for observation for suspected exposure to other biological agents ruled out; G47.33 Obstructive sleep apnea (adult) (pediatric); E78.5 Hyperlipidemia, unspecified; Z99.89 Dependence on other enabling machines and devices; Z86.711 Personal history of pulmonary embolism; Z79.01 Long term (current) use of anticoagulants; Z79.899 Other long term (current) drug therapy
CPT/HCPCS: 71046; 80053; 84484; 85025; 87637; 93005; 96361; 96374; 96375; 99284; J2919

== ENCOUNTER → 2025-10-07 20:39 | Outpatient (BNV) | payer OTHER, SELFPAY | PROVIDERS: Emergency Provider Emergency Medicine; PCP Internal Medicine; Visit Provider Student in an Organized Health Care Education/Training Program | DX: R05.9 Cough, unspecified (principal); R06.02 Shortness of breath | CPT/HCPCS: 71046 ==

== ENCOUNTER → 2025-10-07 20:50 | Outpatient (BNV) | payer OTHER, SELFPAY | PROVIDERS: Emergency Provider Emergency Medicine; PCP Internal Medicine; Visit Provider Internal Medicine Cardiovascular Disease | DX: R00.0 Tachycardia, unspecified (principal) | CPT/HCPCS: 93010 ==

== ENCOUNTER 2025-10-28 08:47 | Outpatient (REF) | payer OTHER, SELFPAY ==
--- NOTE | ~2025-10-28 | XR_ITS ---
CLINICAL HISTORY: M25.519 - Pain in unspecified shoulder 3 views left shoulder Comparison: 02/28/2025 Findings: No fractures or dislocations. Reverse shoulder arthroplasty hardware is re-identified, in stable alignment. No evidence of hardware failure. Similar-appearing acromioclavicular degenerative disease. Normal visualized left chest. Impression: 1. Stable left shoulder This document has been electronically signed by: Carlos Gibson MD on 10/29/2025 18:49:07
--- NOTE | ~2025-10-28 | XR_ITS ---
CLINICAL HISTORY: M25.519 - Pain in unspecified shoulder 3 views right shoulder Comparison: None Findings: No fractures or dislocations. There are moderate to advanced glenohumeral degenerative changes with humeral head spurring, joint space narrowing, and lesser glenoid spurring.. No radiopaque foreign body. Normal visualized right chest. Impression: 1. Glenohumeral degenerative changes as described above. This document has been electronically signed by: Carlos Gibson MD on 10/29/2025 18:46:50
--- OUTSIDE RECORDS SUMMARY | 2025-10-31 08:52 | XMS_ITS | Continuity of Care Document ---
Author Organization [place] [facility], [facility] Address [address] [place] [address] Care Team Providers Care Forest Aide Name Role Phone DICKSON SAEZ Primary Care Provider [facility] JOCELYN OTHER Assessment Encounter Date Assessment Date Assessment LastModified by Organization Details LastModified Time 08/28/2025 08/28/2025 As noted, we wer e called to see this patient regarding concerns of itchy rash. Evaluation in the field was performed by my state farm agent team member colleague, as noted above, I provided real-time [...] . By the instead team and prescribed Dxauxemljn63 mg PO for a total of three [...] the emergency department. This was based on [email or web address] Not available 08/28/2025 11:20:37 Plan of Treatment Reminders Order Date Submit Date Provider Last Modified By Organization Details Last Modified Time Details Appointments None recorded. Lab urinalysis, dipstick 2024 025 [facility], [address] [place] [address], [address] 16:08:37 Referral None recorded. Procedures None recorded. Surgeries None recorded. Imaging None recorded. Medication Orders prednisone 20 mg tablet 2024 025 [facility]/Pharmacy #[id number], [address] [place], [address], 05:01:11 prednisone 20 mg tablet 2024 025 [facility]/Pharmacy #[id number], [address] [place], [address], 05:01:11 Patient TargetsNo targets recorded. Patient InstructionsNo instructions recorded. Reason for Referral None Reported. Results Created Date Observation Date Name Description Value Unit Range Abnormal Flag Note LastModifiedBy Organization Detail LastModifiedTime 08/21/2008/23/2025 URINE CULTU RE, UROLO GY SAKINA P urine culture, urology workup Final report Not Available [facility] ([facility]) [address] [facility] [place], [place], [address], 08/23/2025 18:05:32 08/21/2008/23/2025 URINE CULTU RE, UROLO GY SAKINA P result 1 COMMEN T Mixed uroge nital lizeth 10,00 0-25, 000 colon y formi ng units per mL Not Available [facility] ([facility]) [address] [facility] [place], [place], [address], 08/23/2025 18:05:32 08/21/2008/21/2025 ONE SPECI MEN IDENT [...] ction . Not Available [facility] ([facility]) [address] [facility] [place], [place], [address], 08/22/2025 20:06:16 Result Notes None recorded. Medical Equipment None Reported. Allergies Allergen ID Allergen Name Allergen Category Reaction Reaction Severity Criticality Documentation Date Start Date Code Code System Note Provider Name and Address Organization Details Recorded Time 97558 cefuroxim e Not available Not available Not available Not available 08/26/2025 2194 RxNorm Not Available [facility] - production 17:51:25 morphine medicatio n Not available Not available Not available 10/02/2025 7052 RxNorm Not Available [facility] - production 17:51:25 Medications Name Sig Start Date Stop Date [...] Not Available doxycycline hyclate 100 mg capsule Take 1 capsule twice a day by oral route for 7 days. 10/31 completed Not Available Not Available Not Available cefuroxime axetil 250 mg tablet TAKE [...] tablets by oral route for 2 days. 10/28/ 2025 11/06 /2025 completed Not Available Not Available Not Available [...] day by oral route for 10 days. 10/19 completed Not Available Not Available Not Available levothyroxi ne 50 mcg tablet TAKE [...] Details Last Updated DateTime 5 94 /min 07960.4 g 99.1 [degF] 14 /min 157.48 cm [...] ICD10 Code Diagnosis IMO Codes Diagnosis Note 93289 John Ferrer MD [facility] ED [place] [phone] 0 08/21/2025 12:52:47 08/21/2025 14:31:53 Acute low back pain 731642072 M54.50 [id number] 89315 Francisco Javier rAroyo MD [place] 804972 0 08/24/2025 12:03:23 08/24/2025 21:36:47 Flank pain 428768871 R10.A3 184758 Patient seen a few days prior with flank pain and had advised to go to the ED. Recent Urine culture with mixed lizeth from 3 days prior; currently positive LE but neg nitrite. Given 08/08 flank pain for many days, advised to go to ED for imaging and patient agrees. 59451 Heide Silva MD [place] 804972 0 08/26/2025 16:41:55 08/27/2025 11:47:33 Pruritic rash 74304521 L28.2 572984 Pruritic d isorder of skin 0693695136 L29.9 03164 55604 MARTA GUERRERO MD [place] 0759608[address] 08/28/2025 11:00:53 08/28/2025 19:00:03 Acute allergic reaction 655662993 T78.40XD 85369212 Eruption c aused by drug 10710192 L27.0 [id number] Health Concerns Section Related Observation LastModified by Organization Detai ls LastModified Time None Recorded Concern Status LastModified by Organization Details LastModified Time None Recorded Payers Encounter Date Sequence Insurance Name Policy Number Policy Burnham Covered Member ID Burnham Member ID Guarantor Name 08/28/2025 1 [facility] - DOS ON OR AFTER 2023 - DUAL ELIGIBLE - LONG TERM OPTIONS AND ONE CARE (MEDICARE REPLACEMENT/ADV ANTAGE - HMO) Gracy Mead [id number] Gracy Mead Notes Date Note Type Note [...] days w/ no effect. No creams prescribed. PNEUMATIC TESTER using hydrocortisone and Benadryl cream with no [...] signs of when to seek emergency care. Tractor Trailer Driver Organization Information for Bernard Porter [employer] Legal Name: [facility] Address: [address] [place] [address], [place] [address], Business Analysis Analyst: Henry Monreal MD [facility] No.: [id number] Tractor Trailer Driver POC Test Results from Bernard Porter Urine Dipstick (10:55:41) Urine leukocytes: -MARCOS Urine nitrites: -NIT Urine urobilinogen: 0.2URO Urine protein: -PRO Urine pH: 5.0pH Urine blood: -BLO Urine specific gravity: 1.005SG Urine ketones: -KET Urine bilirubin: -JOSI Urine glucose: -GLU ..................... ..................... ..................... ..................... ..................... ..................... ............... Tractor Trailer Driver Note From Bernard Porter: Patient alert and [...] next several days. Family with patient throughout. [facility] Lab Orders: urinalysis, dipstick: Performed [facility] Medication Orders: prednisone 20 mg tablet: Performed ..................... ..................... ..................... ..................... ..................... ..................... ............... [facility] Consulted: Marta Guerrero ..................... ..................... ..................... ..................... ..................... ..................... ............... Disposition: Fulfilled MARTA GUERRERO MD [address] [place] [address],[address] [facility], [place], [address], [employer] 08/28/2025 16:03:46 OBGyn Episode No OBEpisode recorded.
--- OUTSIDE RECORDS SUMMARY | 2025-10-31 08:52 | XMS_ITS | Encounter Summary ---
Author Organization [facility] Address [address] [facility] [address] [place] [address] Phone Care Team Providers Care Congregational Care Pastor Name Role Phone Pcp, Unknown Primary Care Provider Unavailabl e Encounter Details Date Type Department Care Team (Late st Contact Info) Description 06/20/2020 Transcribe Orders [facility] Specimen Processing [address] [place] [address] Anton Stoddard MD [address] [facility] [address], [address] [place] [address] [email or web address] Encounter for screening laboratory testing for COVID-19 [...] AM EDT) Specimen Source/Descriptio n NASOPHARYNGEAL SWAB [facility] Comment NASOPHARYNGEAL SWAB [facility] SARS-CoV 2 (COVID-19) PCR Not Detected Not Detected [facility] Comment: Negative results do not preclude [...] ORDERABLE S Final Result Performing Organization Address City/[facility]/ZIP Co de Phone Number [address] [address] * COVID-19 PCR Order (06/20/2020 8:00 AM EDT) Specimen Source NASOPHARYNGEAL SWAB (SENIOR AGRICULTURAL ASSISTANT) [facility] COVID Testing Status Sent to [facility] Micro Lab [facility] Other 06/20/2020 8:00 AM EDT 06/20/2020 11:46 AM EDT us Anton Stoddard MD LAB GENERAL ORDERABLES Final Res ult Performing Organization Address City/[facility] Co de Phone Number [address] [address] documented in this encounter Visit Diagnoses Diagnosis Encounter for screening laboratory testing for COVID-19 virus- Primary documented in this encounter Additional Health Concerns Infection Onset Date Last Indicated Resolved Time CoV-Exposed Comment:Recent close contact 06/18/2020 06/18/2020 07/02/2020 1:24 AM EDT CoV-Exposed Comment:Recent close contact 07/10/2020 07/10/2020 07/24/2020 1:23 AM EDT documented as of this encounter Care Teams Congregational Care Pastor Relationship Specialty Start Date End Date Pcp, Unknown PCP - General 05/20/20 documented as of this encounter Additional Source Comments The information contained in this document represents components of the legal health record. It is not the complete legal health record.[facility]
--- OUTSIDE RECORDS SUMMARY | 2025-10-31 08:52 | XMS_ITS | Continuity of Care Document ---
Author Organization [employer] [facility], [facility] Address [address] [place] [address] Care Team Providers Care Core Oven Tender Name Role Phone DICKSON SAEZ Primary Care Provider [phone] HIM JOCELYN OTHER Assessment Encounter Date Assessment Date Assessment LastModified by Organization Details LastModified Time 08/21/2025 08/21/2025 Impression: 65yo/f referred by PUBLIC HEALTH TEACHER for urinary symptoms and back pain. Patient with multiple chronic medical conditions as above, states for the past 2-3 days has been having worsening back pain symptoms, initially seemed to localize to one side, today describing bilateral back/flank pain. PUBLIC HEALTH TEACHER has noticed increased odor to urine, [...] demonstrate a UTI or pyelonephritis. Patient and PUBLIC HEALTH TEACHER feel these symptoms are new in the last 2-3 days. I advised that for full evaluation I would recommend patient be transferred to [facility] ED for further evaluation and treatment including consideration of diagnostic imaging. Patient and PUBLIC HEALTH TEACHER are declining at this time, stating they would prefer to discuss with PCP first. Advised to seek care immediately with any acute worsening or change in symptoms which they understand. [email or web address] Not available 08/21/2025 13:25:07 Plan of Treatment Reminders Order Date Submit Date Provider Last Modified By Organization Details Last Modified Time Details Appointments None recorded. Lab culture, urine 2024 [place] [facility] (Centralized Electronic Ordering - All Locations), Patient Can Go To The Location Of Their Choice, [address] 20:06:15 urinalysis , dipstick 2024 [facility], [address] [place] [address], [address] 14:08:49 Referral None recorded. Procedures None recorded. [...] [facility]) [address] [facility], [place], [address], 08/23/2025 18:05:32 08/21/2008/23/2025 URINE CULTU RE, UROLO GY SAKINA P result 1 COMMEN T Mixed uroge nital lizeth 10,00 0-25, 000 colon y formi ng units per mL Not Available [facility] ([facility] [place] [facility]) [address] [facility], [place], [address], 08/23/2025 18:05:32 08/21/2008/21/2025 ONE SPECI MEN IDENT [...] [facility]) [address], [place], [address], 08/22/2025 20:06:16 Result Notes None recorded. Medical Equipment None Reported. Allergies Allergen ID Allergen Name Allergen Category Reaction Reaction Severity Criticality Documentation Date Start Date Code Code System Note Provider Name and Address Organization Details Recorded Time cefuroxim e Not available Not available Not available Not available 08/26/20252193 RxNorm Not Available [facility] - production 17:51:25 [...] Organization Details Last Updated DateTime 99 % 102 /min 434075. 224 g 154.94 cm 98.1 [degF] 16 [...] ICD10 Code Diagnosis IMO Codes Diagnosis Note [id number] John Ferrer MD Main-[facility] ED Medical [facility] [address] [place] [address] 08/21/2025 12:52:47 08/21/2025 14:31:53 Acute low back pain 368096518 M54.50 [id number] Health Concerns Section Related Observation LastModified by Organization Detai ls LastModified Time None Recorded Concern Status LastModified by Organization Details LastModified Time None Recorded Payers Encounter Date Sequence Insurance Name Policy Number Policy Burnham Covered Member ID Burnham Member ID Guarantor Name 08/21/2025 1 [facility] - DOS ON OR AFTER 2023 - DUAL ELIGIBLE - LONG TERM OPTIONS AND ONE CARE (MEDICARE REPLACEMENT/ADV ANTAGE - HMO) Gracy Mead [id number] Gracy Mead Notes Date Note Type Note Provider Name and Address Organization Details Recorded Time 08/21/2025 text/html ROS as noted in the [facility] CRC Nurse Triage Notes (Nancy [...] 65 y.o female complains of Urinary Symptoms PUBLIC HEALTH TEACHER reporting symptoms. Foul smelling urine and [...] signs of when to seek emergency care. Emergency Services Dispatcher Organization Information for Kenneth Gonsales [employer] Legal Name: [employer]. Address: [address] [place] [address], Study Lead: Carlos Woody MD CLIA No.: [id number] Emergency Services Dispatcher POC Test Results from Kenneth Gonsales Urine Dipstick (12:42:41) Urine leukocytes: 70+MARCOS Urine nitrites: -NIT Urine urobilinogen: 0.2URO Urine protein: 0.3PRO Urine pH: 6.0pH Urine blood: -BLO Urine specific gravity: 1.010SG Urine ketones: 15KET Urine bilirubin: -JOSI Urine glucose: -GLU Attachments uploaded as part of this test result can be found under Documents section. ..................... ..................... ..................... ..................... ..................... ..................... ............... Emergency Services Dispatcher Note From Kenneth Gonsales: [facility] makes pt contact a 65 yo F CC of uti like symptoms for two days. [facility] obtains vital signs. PT provides a clean catch urine sample. [facility] performs urine dipstick test and collects specimen for the lab. PT PUBLIC HEALTH TEACHER explains pt for the past two [...] hospital with IV antibiotics. No known allergies. [facility] contacts [facility] and explains above mentioned. [facility] not convinced it is a UTI. [facility] advises pt be seen in the hospital for a full work up and imaging of the kidneys or reach out to her PCP regarding follow up. PT would rather reach out to PCP. [facility] explains red flags such as worsening pain, unable to hold/void urine, new onset fever, sob, chest pain, n/v. That pt should then seek a higher level of care such as 911. PT understands. Culture to be dropped off at [facility]. [facility] clear. [facility] Lab Orders: culture, urine: Performed urinalysis, dipstick: Performed ..................... ..................... ..................... ..................... ..................... ..................... ............... [facility] Consulted: John Ferrer ..................... ..................... ..................... ..................... ..................... ..................... ............... Disposition: Fulfilled John Ferrer MD [address] [facility],[address], [place], [address], [employer] 08/21/2025 13:49:25 OBGyn Episode No OBEpisode recorded.
--- OUTSIDE RECORDS SUMMARY | 2025-10-31 08:52 | XMS_ITS | Clinical Summary ---
Author Organization [facility] Address [address] [address] Phone Care Team Providers Care Chemical Research Engineer Name Role Phone Pcp, Unknown Primary [...] on file Insurance MEDICARE REPLACEMENT [place] [id number] MEDICARE REPLACEMENT [place] [id number] MEDICARE REPLACEMENT MEDICARE REPLACEMENT MEDICARE REPLACEMENT MEDICARE REPLACEMENT MEDICARE REPLACEMENT MEDICARE [place] [address] [address] [place] [address] ONE CARE MEDICARE REPLACEMENT [place] [id number] Care Teams Chemical Research Engineer Relationship Specialty Start Date End Date Pcp, Unknown PCP - General 05/20/20 Additional Source Comments The information contained in this document represents components of the legal health record. It is not the complete legal health record.[facility]
--- OUTSIDE RECORDS SUMMARY | 2025-10-31 08:52 | XMS_ITS | Continuity of Care Document ---
Author Organization [facility], [facility] Address [address] [place] [address] Care Team Providers Care Boiler Reliner Name Role Phone DICKSON SAEZ Primary Care Provider [phone] [facility] CCA OTHER Assessment Encounter Date Assessment Date Assessment LastModified by Organization Details LastModified Time 08/26/2025 08/26/2025 I provided real -time medical direction via phone for this encounter and was available for additional phone-based assistance as needed. I have reviewed and agree with the Assessment and Plan as documented by the Director Of Institutional Research. Patient given the opportunity to ask questions. [...] facial, tongue swelling, SOB, CP, BARRY. Per therapy coordinator on the scene, VSS, please see uploaded pictures Please read the therapy coordinator note for their exam findings. Impression: Drug [...] tablet 2024 025 [facility]/Pharmacy #[id number], [address] [place], [address], 05:01:11 prednisone 20 mg tablet 2024 025 [facility]/Pharmacy #[id number], [address] [place], [address], 05:01:11 Patient TargetsNo targets recorded. Patient InstructionsNo instructions recorded. Reason for Referral None Reported. Results Created Date Observation Date Name Description Value Unit Range Abnormal Flag Note LastModifiedBy Organization Detail LastModifiedTime 08/21/2008/23/2025 URINE CULTU RE, UROLO GY SAKINA P urine culture, urology workup Final report Not Available [facility] ([facility]) [address] [facility], [place], [address], 08/23/2025 18:05:32 08/21/2008/23/2025 URINE CULTU RE, UROLO GY SAKINA P result 1 COMMEN T Mixed uroge nital lizeth 10,00 0-25, 000 colon y formi ng units per mL Not Available [facility] ([facility]) [address] [facility], [place], [address], 08/23/2025 18:05:32 08/21/2008/21/2025 ONE SPECI MEN IDENT [...] of colle ction . Not Available [facility] ([facility]) [address] [facility], [place], [address], 08/22/2025 20:06:16 Result Notes None recorded. Medical Equipment None Reported. Allergies Allergen ID Allergen Name Allergen Category Reaction Reaction Severity Criticality Documentation Date Start Date Code Code System Note Provider Name and Address Organization Details Recorded Time 31604 cefuroxim e Not available Not available Not [...] Address Organization Details Last Updated DateTime 5 337687. 224 g 98.3 [degF] 18 /min 154.94 [...] ICD10 Code Diagnosis IMO Codes Diagnosis Note 05314 John Ferrer MD [facility] Medical [address] [address] 08/21/2025 12:52:47 08/21/2025 14:31:53 Acute low back pain [id number] M54.50 [id number] [address] Francisco Javier Arroyo MD [address] [address] 08/24/2025 12:03:23 08/24/2025 21:36:47 Flank pain 110700063 R10.A3 820251 Patient seen a few days prior with flank pain and had advised to go to the ED. Recent Urine culture with mixed lizeth from 3 days prior; currently positive LE but neg nitrite. Given 10/10 flank pain for many days, advised to go to ED for imaging and patient agrees. [address] Heide Silva MD [facility] Medical [address] [address] 08/26/2025 16:41:55 08/27/2025 11:47:33 Pruritic rash 29127530 L28.2 113227 Pruritic d isorder of skin 8922881700 L29.9 65284 Health Concerns Section Related Observation LastModified by Organization Detai ls LastModified Time None Recorded Concern Status LastModified by Organization Details LastModified Time None Recorded Payers Encounter Date Sequence Insurance Name Policy Number Policy Burnham Covered Member ID Burnham Member ID Guarantor Name 08/26/2025 1 [facility] - DOS ON OR AFTER 2023 - DUAL ELIGIBLE - CARE HOME OPTIONS AND ONE CARE (MEDICARE REPLACEMENT/ADV ANTAGE - HMO) Gracy Mead [id number] Gracy Mead Notes Date Note Type Note [...] Comments: 65 y.o female complains of Rash DECK MATE reporting rash starting yesterday night. Rash started [...] during ER visit and was normal per DECK MATE. I provided information on the mobile health provider response time and advised the patient and/or caregiver to monitor reported signs and symptoms. I discussed the warning signs of when to seek emergency care. ..................... ..................... ..................... ..................... ..................... ..................... ............... Director Of Institutional Research Note From Mauricio Souza: SC6 responds to [...] weakness and she is not bleeding anywhere. DECK MATE is on scene to assist w/ translation and Hx. This [facility] provider sent pt to the ER two days ago to r/o kidney infection. DECK MATE and pt tell [facility] she was placed [...] the infection was coming from, according to DECK MATE. Pt was also given and has taken Morphine, 15mg Q6H. Ddx: abx reaction, morphine rxn [facility] immediately listens to lung sounds and [...] or welts are noted on pt's body. [facility] contacts [facility] and discusses the above. [facility] prescribes a 3-day prednisone taper and orders pt to stop taking the prescribed abx and to immediately call her PCP for an appointment. [facility] order 60mg PO for pt now. [facility] administers 20mg x3 tablets prednisone to pt PO. [facility] informs pt to contact her PCP and get and appointment ERIK. Pt and DECK MATE are also advised to call 911 immediately if pt develops sob, wheezing, swelling of the lips, face, tongue or feels her throat is swelling, development of n/v/d, or abd pain, as these are all signs of serious allergic reaction. Both give their verbal understanding. [facility] ensures pt has no further questions and she is left in stable condition. [facility] is clear. Report completed by JAYY Souza [id number]. [facility] Medication Orders: prednisone 20 mg tablet: Administered ..................... ..................... ..................... ..................... ..................... ..................... ............... [facility] Consulted: Heide Silva ..................... ..................... ..................... ..................... ..................... ..................... ............... Disposition: Liban Silva MD [address] [facility],[address], [place], [address], [employer] 08/26/2025 19:25:50 OBGyn Episode No OBEpisode recorded.
--- OUTSIDE RECORDS SUMMARY | 2025-10-31 08:53 | XMS_ITS | Data Portability ---
Author Organization [employer] [facility], [facility] Address [address] [place] [address] Care Team Providers Care Enterprise Integration Architect Name Role Phone DICKSON SAEZ Primary Care Provider [phone] [facility] OTHER Assessment Encounter Date Assessment Date Assessment LastModified by Organization Details LastModified Time 08/26/2025 08/26/2025 I provided real -time medical direction via phone for this encounter and was available for additional phone-based assistance as needed. I have reviewed and agree with the Assessment and Plan as documented by the Trailer Technician. Patient given the opportunity to ask questions. [...] facial, tongue swelling, SOB, CP, BARRY. Per kiln door repairer on the scene, VSS, please see uploaded pictures Please read the kiln door repairer note for their exam findings. Impression: Drug [...] 08/26/2025 17:06:03 08/28/2025 08/28/2025 As noted, we sravan e called to see this patient regarding concerns of itchy rash. Evaluation in the field was performed by my kiln door repairer colleague, as noted above, I provided real-time [...] . By the instead team and prescribed [id number] mg PO for a total of three [...] the emergency department. This was based on [id number] Not available 08/28/2025 11:20:37 10/02/2025 10/02/2025 I provided real -time medical direction via phone for this encounter and was available for additional phone-based assistance as needed. I have reviewed and agree with the Assessment and Plan as documented by the Trailer Technician. Patient given the opportunity to ask questions. [...] COPD. Patient has been coughing and her wqjn-jbr-awsondx cough suppressant has not been working. She now has a very sore throat from the coughing. Patient was treated at the hospital on Monday for an upper respiratory infection. Patient's OTC medication reviewed and does have DM in it however patient is only using BID. Per kiln door repairer on the scene, VSS Please read the kiln door repairer note for their exam findings. Impression: Persistent [...] Appointments None recorded. Lab urinalysis, dipstick 2024 [facility], [address] [place] [address], [id number] 16:08:37 Referral None recorded. Procedures None recorded. Surgeries None recorded. Imaging None recorded. Medication Orders doxycycline hyclate 100 mg tablet 2024 025 [facility], [address] [place], [address], 21:45:27 doxycycline hyclate [address] capsule [address] [facility] [address] [place] [address], [address], 6 05:01:27 benzonatate 100 mg capsule [address] [facility] [address] [place] [address], [address], 5 05:01:11 benzonatate 100 mg capsule [address] [facility] [address] [place] [address], [address], 5 05:01:11 prednisone [address] [facility] [address] [place] [address], [address], 5 05:01:11 prednisone 20 mg tablet 2024 025 [facility], [address] [place] [address], [address], 5 05:01:11 prednisone [address] [facility] [address] [place] [address], [address], 05:01:11 prednisone 20 mg tablet 2024 025 [facility][id number], [address] [facility] [address], [place], [address], 05:01:11 Patient TargetsNo targets recorded. Patient InstructionsNo instructions recorded. Reason for Referral None Reported. Results Created Date Observation Date Name Description Value Unit Range Abnormal Flag Note LastModifiedBy Organization Detail LastModifiedTime 08/21/2008/23/2025 URINE CULTU RE, UROLO GY SAKINA P urine culture, urology workup Final report Not Available [facility] ([facility]) [address] [facility], [place], [address], 08/23/2025 18:05:32 08/21/2008/23/2025 URINE CULTU RE, UROLO GY SAKINA P result 1 COMMEN T Mixed uroge nital lizeth 10,00 0-25, 000 colon y formi ng units per mL Not Available [facility] ([facility]) [address] [facility], [place], [address], 08/23/2025 18:05:32 08/21/2008/21/2025 ONE SPECI MEN IDENT [...] of colle ction . Not Available [facility] ([facility]) [address] [place], [address], 08/22/2025 20:06:16 Result Notes None recorded. Medical Equipment None Reported. Allergies Allergen ID Allergen Name Allergen Category Reaction Reaction Severity Criticality Documentation Date Start Date Code Code System Note Provider Name and Address Organization Details Recorded Time cefuroxim e Not available Not available Not available Not available 08/26/20252193 RxNorm Not Available [facility] - production 12/19/202 5 17:51:25 67295 morphine medicatio n Not available Not available Not available 10/02/2025 7052 RxNorm Not Available [facility] [place] 5 17:51:25 Medications Name Sig Start Date Stop [...] Address Organization Details Last Updated DateTime 5 684968. 224 g 98.3 [degF] 18 /min 154.94 cm 102 /min 96 % 130/83 mm[Hg] Not Available [facility] - production 5 16:42:05 Date Recorded Heart rate Body weight Body temperature Respiratory rate Body height Oxygen saturation Systolic And Diastolic Provider Name and Address Organization Details Last Updated DateTime 5 94 /min 71308.4 g 99.1 [degF] 14 /min 157.48 cm 98 % 132/84 mm[Hg] Not Available [facility] - production 5 11:00:59 Date Recorded Body temperature Heart rate Respiratory rate Oxygen saturation Systolic And Diastolic Provider Name and Address Organization Details Last Updated DateTime 5 99.3 [degF] 102 /min 18 /min 96 % 124/86 mm[Hg] Not Available [facility] - production 14:24:54 Date Recorded Heart rate Respiratory rate Oxygen saturation Inhaled oxygen flow rate Body temperature Systolic And Diastolic Provider Name and Address Organization Details Last Updated DateTime 5 91 /min 18 /min 97 % 2 L/min 98 [degF] 116/80 mm[Hg] Not Available [facility] - production 20:56:53 Date Recorded Body height Body weight Respiratory rate Heart rate Body temperature Oxygen saturation Systolic And Diastolic Provider Name and Address Organization Details Last Updated DateTime 154.94 cm 031213. 264 g 18 /min 101 /min 99.6 [degF] 98 % 107/72 mm[Hg] Not Available [facility] - production 21:18:56 Social History None recorded. Functional Status None [...] Note 1126 Surya Acevedo MD Main - [address] [address] 02/18/2022 14:31:32 07/07/2022 13:35:00 Periorbital edema 29930058 H05.229 62yo woman evaluated for months of [...] therapy. 1140 Eden Coronado MD Main - [address] [address] 02/19/2022 09:58:40 07/05/2022 15:20:25 Dysuria 95383442 R30.9 Pt with hx prior UTIs (though [...] assessment and plan as documented by the kiln door repairer. I provided real time medical direction for this encounter and was immediatel y available to provide additional phone based assistance as needed. Periorbital edema 110793 00 H05.229 Symptoms persist since last [facility] visit, continuing on allergy tx. urine dip today w/o protein to suggest nephrotic syndomre, recommend PCP f/up for allergy testing/tx . Urine dip also w/ trace ketones but no hx diabetes and normal PO intake, likely contaminat ion from adjacent test strip. F/up formal urinalysis 1495 Kenneth Castellon MD Main - [facility] [address] [place] [address] 03/10/2022 11:36:32 07/06/2022 14:33:02 Pruritic rash 52771102 L28.2 4072 Braydon Recio MD Main - [facility] [address] [place] [address] 07/18/2022 17:25:40 07/22/2022 13:31:39 Pruritic rash 38693711 L28.2 47118 Gerardo Lunsford MD Main - [facility] [address] [place] [address] 08/26/2024 18:22:09 08/26/2024 21:57:44 Acute urinary tract infection 601830829 N39.0 16273 John Ferrer MD Main-[facility] [address] [address] 08/21/2025 12:52:47 08/21/2025 14:31:53 Acute low back pain 970243305 M54.50 [id number] 02805 Francisco Javier Arroyo MD [place] [id number] 0 08/24/2025 12:03:23 08/24/2025 21:36:47 Flank pain 200282903 R10.A3 249741 Patient seen a few days prior with flank pain and had advised to go to the ED. Recent Urine culture with mixed lizeth from 3 days prior; currently positive LE but neg nitrite. Given 08/08 flank pain for many days, advised to go to ED for imaging and patient agrees. 94727 Heide Silva MD [place] [address] 0 08/26/2025 16:41:55 08/27/2025 11:47:33 Pruritic rash 87972144 L28.2 [id number] Pruritic d isorder of skin 3790178439 L29.9 73992 94653 MARTA ZAMBRANO MD [place] [address] 0 08/28/2025 11:00:53 08/28/2025 19:00:03 Acute allergic reaction 161353440 T78.40XD [id number] Eruption c aused by drug 47943979 L27.0 [id number] 13724 Heide Silva MD [place] [phone] 10/02/2025 14:24:49 10/03/2025 12:01:21 Persistent cough 231854717 R05.3 460117 65813 HEATHER SCANLON MD [place] [address] 0 10/11/2025 20:30:29 10/13/2025 13:07:48 Acute exacerbation of chronic obstructive pulmonary disease 595532519 J44.1 612814 Evaluation in the field was performed by my kiln door repairer colleague, as noted above, I provided real-time direction and supervisio n for this visit. The evaluation revealed 65-year-ol d female with a past medical history significan t for coronary artery disease, COPD/asthm a on baseline 2 L home oxygen, and severe persistent mental illness, presenting with persistent cough and sore throat. She was evaluated in the ED two days ago for cold symptoms and possible COPD exacerbati on, where she underwent a full workup including bloodwork, respirator y evaluation , and chest X-ray, all reportedly negative. Since discharge, she continues to have frequent coughing, and her over-the-c ounter cough suppressan t has not been effective; review of medication s shows it contains dextrometh orphan but she has only been taking it twice daily. She now reports a sore throat attributed to frequent coughing. She denies worsening shortness of breath, chest pain, fever, or increased oxygen requiremen t. She declined COVID and influenza testing. Vital Signs: BP: 116/80, HR: 91 bpm, RR: 18/min, Temp: 98 F, SpO2: 97% on 2 L nasal cannulaPhy sical Examinatio n:General: Awake, alert, oriented, no acute distressRe spiratory: Clear to auscultati on bilaterall y; breathing comfortabl y; no wheezes, rales, or increased work of breathing. Trailer Technician reports oxygen saturation remained 97% on 2 L throughout the visit.Extr emities: No lower extremity edemaNeuro logic: Alert and oriented; no focal deficitsAl lergies: Reviewed Impression :65-year-o ld female with CAD and COPD/asthm a on baseline home oxygen presenting with persistent cough and sore throat following a recent ED evaluation with negative chest X-ray and labs. She is hemodynami berenice stable with normal oxygen saturation at baseline requiremen t and clear lung exam. Presentati on is most consistent with a post-viral cough and upper airway irritation . No evidence at this time of COPD exacerbati on, pneumonia, or acute cardiopulm onary pathology. Plan:Suspe ct post-viral cough.Revi ewed appropriat e OTC cough suppressan t dosing; may increase to standard dosing as tolerated. Recommend throat lozenges, warm fluids, and voice rest.Avoid environmen dona irritants. Continue home inhalers and baseline oxygen at 2 L.No indication for steroids or antibiotic s at this time.Encou rage close outpatient follow-up with PCP.Patien t declined COVID and influenza testing.Re d flags reviewed including : worsening dyspnea, increased oxygen needs, fever, chest pain, hemoptysis , or failure to improve. Primary care, consider__ _ Dispositio n: We discussed the diagnostic uncertaint y of home visits and the risk associated with this. In this case, the patient and I felt this to be an acceptable and reasonable amount of risk given the benefit of avoiding an ED visit. We discussed the need to seek care urgently/e mergently in the setting of any new or worsening serious symptoms, particular ly worsening dyspnea, increased oxygen needs, fever, chest pain, hemoptysis , or failure to improve [id number] HEATHER SCANLON MD [facility] ED Medical [address] [address] 10/17/2025 20:53:06 10/18/2025 14:52:59 Chronic cough 95910366 R05.3 71875 Evaluation in the field was performed by my kiln door repairer colleague, as noted above, I provided real-time direction and supervisio n for this visit. The evaluation revealed 65-year-ol d female with CAD, COPD/asthm a on baseline 2 L home oxygen, severe persistent mental illness, and atrial fibrillati on on apixaban, initially seen by our service on 10/11 for persistent cough and sore throat. She had been evaluated in the ED two days prior for cold symptoms and possible COPD exacerbati on, with negative bloodwork and chest X-ray, and was discharged with cough meds. At her 10/11 visit, she denied worsening dyspnea, chest pain, fever, or increased oxygen requiremen t; exam was unremarkab le, and she was diagnosed with post-infec tious cough. Today, her PRODUCTION ADMINISTRATIVE ASSISTANT reports an intermitte ntly productive cough with pleuritic chest pain from coughing, but no shortness of breath, wheezing, chest congestion , fever, chills, or GI symptoms. She has not yet started prednisone 60 mg x5 days prescribed on 10/08 by an outside provider. Her last antibiotic course for COPD exacerbati on was azithromyc in in late August. She is currently taking benzonatat e. On PPI as well .Vital signs: BP 107/72 mmHg, HR 101 bpm, RR 18/min, Temp 99.6 F, SpO 98% on room air.Exam: Lungs clear to auscultati on bilaterall y; reproducib le rib tenderness to palpation. Allergies: Reviewed. Impression :65-year-o ld female with COPD/asthm a on baseline 2 L home oxygen and atrial fibrillati on on apixaban, presenting with persistent productive cough for >10 days and pleuritic chest pain from coughing, without fever, increased oxygen requiremen t, or wheezing. Presentati on most consistent with prolonged bronchitis / mild COPD exacerbati on following recent viral illness, with low concern for pneumonia, pulmonary embolism, or acute cardiac process at this time. Plan:Given persistent productive cough >10 days in the setting of COPD/asthm a, will treat as mild COPD exacerbati on.Start prednisone 40 mg PO daily x 5 days (no taper). Reviewed risks including hyperglyce brionna and mood changes; short course chosen to minimize side effects.St art Augmentin 875/125 mg PO BID x 5 days.Mikki nue home oxygen at baseline 2 L.Continue baseline inhalers as prescribed .Encourage oral hydration. May use guaifenesi n for mucus clearance. Acetaminop hen PRN for pleuritic chest pain from coughing (avoid NSAIDs given apixaban). Red flags reviewed : fever or chills, worsening cough, new or increasing shortness of breath, increased oxygen requiremen t, wheezing not relieved by inhalers, chest pain not clearly from coughing, coughing up blood, confusion or mood changes, dizziness, or feeling much worse seek urgent care or go to the ER if any occur.Advi sed the patient to call her pulmonolog ist on Monday if symptoms persist or do not improve. Primary care, consider__ _ Dispositio n: We discussed the diagnostic uncertaint y of home visits and the risk associated with this. In this case, the patient and I felt this to be an acceptable and reasonable amount of risk given the benefit of avoiding an ED visit. We discussed the need to seek care urgently/e mergently in the setting of any new or worsening serious symptoms, particular lyfever or chills, worsening cough, new or increasing shortness of breath, increased oxygen requiremen t, wheezing not relieved by inhalers, chest pain not clearly from coughing, coughing up blood, confusion or mood changes, dizziness, or feeling much worse Health Concerns Section Related Observation LastModified by Organization Detai ls LastModified Time None Recorded Concern Status LastModified by Organization Details LastModified Time None Recorded Advance Directives Directive None Recorded Payers Insurance Date Sequence Insurance Name Policy Number Policy [place] Covered Member ID Burn[place] Member ID Guarantor Name 08/26/[address] [facility] - DOS PRIOR TO 2023 - DUAL ELIGIBLE (MEDICARE REPLACEMENT/ADV ANTAGE - HMO) Gracy Zaid Mead [id number] Gracy Mar [place] 10/17/[address] [facility] - DOS ON OR AFTER 2023 - DUAL ELIGIBLE - [employer] OPTIONS AND ONE CARE (MEDICARE REPLACEMENT/ADV ANTAGE - HMO) Gracy Zaid Mead [id number] Gracy Clark Zaid Mead Notes Date Note [...] Comments: 65 y.o female complains of Rash PRODUCTION ADMINISTRATIVE ASSISTANT reporting rash starting yesterday night. Rash started [...] during ER visit and was normal per PRODUCTION ADMINISTRATIVE ASSISTANT. I provided information on the mobile health provider response time and advised the patient and/or caregiver to monitor reported signs and symptoms. I discussed the warning signs of when to seek emergency care. ...................... ...................... ...................... ...................... ...................... ...................... ......... Trailer Technician Note From Mauricio Souza: SC6 responds [...] weakness and she is not bleeding anywhere. PRODUCTION ADMINISTRATIVE ASSISTANT is on scene to assist w/ translation and Hx. This [facility] provider sent pt to the ER two days ago to r/o kidney infection. PRODUCTION ADMINISTRATIVE ASSISTANT and pt tell [facility] she was placed [...] the infection was coming from, according to PRODUCTION ADMINISTRATIVE ASSISTANT. Pt was also given and has taken Morphine, 15mg Q6H. Ddx: abx reaction, morphine rxn [facility] immediately listens to lung sounds [...] or welts are noted on pt's body. [facility] contacts [facility] and discusses the above. [facility] prescribes a 3-day prednisone taper and orders pt to stop taking the prescribed abx and to immediately call her PCP for an appointment. [facility] order 60mg PO for pt now. [facility] administers 20mg x3 tablets prednisone to pt PO. [facility] informs pt to contact her PCP and get and appointment ERIK. Pt and PRODUCTION ADMINISTRATIVE ASSISTANT are also advised to call 911 immediately if pt develops sob, wheezing, swelling of the lips, face, tongue or feels her throat is swelling, development of n/v/d, or abd pain, as these are all signs of serious allergic reaction. Both give their verbal understanding. [facility] ensures pt has no further questions and she is left in stable condition. [facility] is clear. Report completed by JAYY Souza [id number]. [facility] Medication Orders: prednisone 20 mg tablet: Administered ...................... ...................... ...................... ...................... ...................... ...................... ......... [facility] Consulted: Heide Silva ...................... ...................... ...................... ...................... ...................... ...................... ......... Disposition: Fulfilled Heide Silva MD [address] [facility],[address], [place], [address], [employer] 08/26/2025 19:25:50 08/28/2025 text/html ROS as noted in the [facility] CRC Nurse Triage Notes (Nancy [...] days w/ no effect. No creams prescribed. PRODUCTION ADMINISTRATIVE ASSISTANT using hydrocortisone and Benadryl cream with no [...] signs of when to seek emergency care. Trailer Technician Organization Information for Bernard Porter Drop Messages Legal Name: [facility] Address: [address] [place] [address], [place] [address], Structural Analysis Engineer: Henry Monreal MD CLIA No.: [id number] Trailer Technician POC Test Results from German, Bernard - ALS Urine Dipstick (10:55:41) Urine leukocytes: -MARCOS Urine nitrites: -NIT Urine urobilinogen: 0.2URO Urine protein: -PRO Urine pH: 5.0pH Urine blood: -BLO Urine specific gravity: 1.005SG Urine ketones: -KET Urine bilirubin: -JOSI Urine glucose: -GLU ...................... ...................... ...................... ...................... ...................... ...................... ......... Trailer Technician Note From Bernard Porter: Patient alert and [...] next several days. Family with patient throughout. [facility] Lab Orders: urinalysis, dipstick: Performed [facility] Medication Orders: prednisone 20 mg tablet: Performed ...................... ...................... ...................... ...................... ...................... ...................... ......... [facility] Consulted: Marta Zambrano ...................... ...................... ...................... ...................... ...................... ...................... ......... Disposition: Fulfilled MARTA ZAMBRANO MD [address] [place] [address],[address], [place], [address], [employer] 08/28/2025 16:03:46 10/02/2025 text/html CRC Nurse Triage Notes (Betariz Owen): Reason For Request: Since Monday she [...] Mental Illness (SPMI)PMH Reviewed at 10/02/2025 - 12:31 (ET)Allergies Reviewed at 10/02/2025 - 12: (ET)Comments: 65 y.o female complains of Common [...] ...................... ...................... ...................... ...................... ...................... ...................... ......... Trailer Technician Note From Johny Perez: [place], the home have a 65-year-old female patient with cold symptoms, and COPD. Patient has been coughing and her lzuc-gop-usuzwyc cough suppressant has not been working. She [...] was assessed and had her vitals taken. [facility] was contacted and given the assessment. suggested patient continues to take her yqaq-omb-ieaywwj cough suppressant and for medic to give one tesslon gayle to pt and she would send a prescription for them to her pharmacy. Patient was warned of signs and symptoms and went to call 911. Should things get worse. ...................... ...................... ...................... ...................... ...................... ...................... ......... [facility] Consulted: Heide Silva ...................... ...................... ...................... ...................... ...................... ...................... ......... Disposition: Fulfilled Heide Silva MD [address] [place] [address],[address], [place], [phone], [employer] 10/02/2025 16:03:24 10/11/2025 text/html ROS as noted in the HPI CRC Nurse Triage Notes (Rosio Caldwell): Reason For Request: Breathing problems 02 stats dropping. Denies: Increased work of breathing/labored with or without fever Unable to speak in full sentences without distress Discoloration of skin -cyanosis Needs to sleep sitting up, can t catch breath Shortness of breath in setting of confusion Chief Complaints: Breathing Problems, Common Cold PMH: Coronary Artery Disease, COPD/Asthma, Severe Persistent Mental Illness (SPMI) PMH Reviewed at 10/11/2025 - 19:56 (ET) Allergies Reviewed at 10/11/2025 - 19:56 (ET) Comments: 65 y.o female complains of Breathing Problems, Common Cold Referral taken via Department Of Mathematics Chair Patient calling in to place a referral Patient with ongoing URI with multiple ED visits Patient last seen in the ED on ; blood work and xray benign, covid/flu negative, sent home with steroids, no antibiotics Patient has laryngitis Reports productive cough and shortness of breath Patient has prn o2, however, has been wearing 2L nc continuously with sats 88-90, typically 97% Patient denies any edema No fever/chills +nausea, denies vomiting or diarrhea Mild headache, no dizziness She has been taking OTC alkazeltzer day and night Patient would like to be evaluated I provided information on the mobile health provider response time and advised the patient and/or caregiver to monitor reported signs and symptoms. I discussed the warning signs of when to seek emergency care. ...................... ...................... ...................... ...................... ...................... ...................... ......... Trailer Technician Note From Johny Perez: [place] the home of a 65-year-old female [...] extremities. Patient has a history of cardiomyopathy. Patient s lungs are clear bilaterally, and she is moving air very well. Patient has been eating and drinking. And having regular urinary output in bowel movements. At this visit, patient was fully assessed, and had her vitals taken, with her oxygen never dipping below 97%. [facility] was contacted and was happy that her oxygen is at 97%, and warned the patient about time spent in the emergency room, because the incident of Covid and flu this time of year. Patient was advised to talk to her dramatic coach and her PCP about steps to be taken so she doesn t end up in the emergency room. [facility] Lab Orders: rapid flu (A+B): Not Performed Comment: pt refused rapid SARS CoV 2 Ag, QL IA, respiratory specimen: Not Performed Comment: pt refused ...................... ...................... ...................... ...................... ...................... ...................... ......... [facility] Consulted: Heather Scanlon ...................... ...................... ...................... ...................... ...................... ...................... ......... Disposition: Liban SCANLON MD [address] [facility],[address], [place], [address], Done In :60 Seconds - [employer] 10/12/2025 15:23:13 10/17/2025 text/html ROS as noted in the HPI CRC Nurse Triage Notes (Rosio Caldwell): Reason For Request: cough/chest pain Denies: Increased work of breathing/labored with or without fever Unable to speak in full sentences without distress Discoloration of skin -cyanosis Needs to sleep sitting up, can t catch breath Shortness of breath in setting of confusion Chief Complaints: Cough PMH: Coronary Artery Disease, COPD/Asthma, Severe Persistent Mental Illness (SPMI), Arrhythmias (e.g., Atrial Fibrillation) PMH Reviewed at 10/17/2025 - 17:51 (ET) Allergies Reviewed at 10/17/2025 - 17:51 (ET) Comments: 65 y.o female complains of Cough Patients PRODUCTION ADMINISTRATIVE ASSISTANT calling in to place a referral Patient seen byour service 10/11, was diagnosed with post viral cough, was no prescribed any antibioics or steroids at that time-- patient declined covid/clu testing PRODUCTION ADMINISTRATIVE ASSISTANT calls as patient still has a productive persistent cough Denies chest conestion or wheezing +pleuritic chest pain from coughing, no shortness of breath BP 132/68 and 114/71, HR 134 and 114- post coughing Denies any palpitations, no left sided jaw, neck, shoulder or arm pain History of afib on eliquis No fever/chills No headaches or dizziness No nausea,vomiting or diarrhea Patient taking benzonatate with no relief She would like to be evaluated I provided information on the mobile health provider response time and advised the patient and/or caregiver to monitor reported signs and symptoms. I discussed the warning signs of when to seek emergency care./ ...................... ...................... ...................... ...................... ...................... ...................... ......... Trailer Technician Note From Mitzi Urias: Sent to a call for a pt [...] fever, or loc. Pt was evaluated at [facility] at the end of Aug (prescribed Azithromycin and Prednisone), and again on 10/07 and prescribed Prednisone per d/c paperwork. [facility] Pt states she has been taking Benzonatate for cough and using nebulizer every 3-4 hrs. BP:107/72, P:101, RR:18, SpO2:98% RA, T:99.6; Head: unremarkable; Lung sounds: clear bilaterally; Chest: bilateral chest and rib tenderness; Abdomen: soft, non-tender, no distention; Back: unremarkable; Extremities: unremarkable; Skin: pink, warm, dry; [facility] consulted and PRODUCTION ADMINISTRATIVE ASSISTANT is on another phone. Pt has an unopened prescription for Prednisone 60mg x 5 days. Pt is advised to start Prednisone 60mg tonight and take as prescribed. [facility] orders Doxycycline 100mg PO. [facility] sends script to pt's pharmacy. Pt/PRODUCTION ADMINISTRATIVE ASSISTANT advised to follow up with dramatic coach on Monday. 5 med rights verified; Doxycycline 100mg PO administered. Red flags discussed. Pt has no further questions. [facility] Medication Orders: doxycycline hyclate 100 mg tablet: Administered ...................... ...................... ...................... ...................... ...................... ...................... ......... [facility] Consulted: Heather Scanlon ...................... ...................... ...................... ...................... ...................... ...................... ......... Disposition: Fulfilled HEATHER SCANLON MD [address] [facility],[address], [place], [address], Done In :60 Seconds - [employer] [facility] 10/17/2025 22:21:45 OBGyn Episode No OBEpisode recorded.
--- OUTSIDE RECORDS SUMMARY | 2025-10-31 08:53 | XMS_ITS | Continuity of Care Document ---
Author Organization [facility] Address [address] [place] [address] Care Team Providers Care Roofing Laborer Name Role Phone DICKSON SAEZ Primary Care Provider [facility] OTHER Assessment Encounter Date Assessment Date Assessment LastModified by Organization Details LastModified Time 10/02/2025 10/02/2025 I provided real -time medical direction via phone for this encounter and was available for additional phone-based assistance as needed. I have reviewed and agree with the Assessment and Plan as documented by the Cna Hha. Patient given the opportunity to ask questions. [...] COPD. Patient has been coughing and her kuqk-suz-aegbgqv cough suppressant has not been working. She now has a very sore throat from the coughing. Patient was treated at the hospital on Monday for an upper respiratory infection. Patient's OTC medication reviewed and does have DM in it however patient is only using BID. Per animation producer on the scene, VSS Please read the animation producer note for their exam findings. Impression: Persistent [...] particularly fever chills lightheadedness altered mental status [email or web address] Not available 10/02/2025 16:02:30 Plan of Treatment Reminders Order Date Submit Date Provider Last Modified By Organization Details Last Modified Time Details Appointments None recorded. Lab None recorded. Referral None recorded. Procedures None recorded. Surgeries None recorded. Imaging None recorded. Medication Orders benzonatate 100 mg capsule 2024 025 [id number], [address] [place], [address], 05:01:11 benzonatate 100 mg capsule 2024 025 [id number], [address] [place], [address], 05:01:11 Patient TargetsNo targets recorded. Patient InstructionsNo instructions recorded. Reason for Referral None Reported. Medical Equipment None Reported. Allergies Allergen ID Allergen Name Allergen Category Reaction Reaction Severity Criticality Documentation Date Start Date Code Code System Note Provider Name and Address Organization Details Recorded Time 00039 cefuroxim e Not available Not available Not [...] ICD10 Code Diagnosis IMO Codes Diagnosis Note [id number] Heide Silva MD [facility] ED Medical [address] [address] 10/02/2025 14:24:49 10/03/2025 12:01:21 Persistent cough 936492786 R05.3 [id number] Health Concerns Section Related Observation LastModified by Organization Detai ls LastModified Time None Recorded Concern Status LastModified by Organization Details LastModified Time None Recorded Payers Encounter Date Sequence Insurance Name Policy Number Policy Burnham Covered Member ID Burnham Member ID Guarantor Name 10/02/2025 1 [facility] - DOS ON OR AFTER 2023 - DUAL ELIGIBLE - HALF-WAY OPTIONS AND ONE CARE (MEDICARE REPLACEMENT/ADV ANTAGE - HMO) Gracy Mead [id number] Gracy Mead Notes Date Note Type Note [...] ...................... ...................... ...................... ...................... ...................... ...................... ......... Cna Hha Note From Johny Perez: [place], the home have a 65-year-old female patient with cold symptoms, and COPD. Patient has been coughing and her wmoa-asm-gsargpa cough suppressant has not been working. She [...] was assessed and had her vitals taken. [facility] was contacted and given the assessment. suggested patient continues to take her xsdm-ebe-dqjvbhk cough suppressant and for medic to give one tesslon gayle to pt and she would send a prescription for them to her pharmacy. Patient was warned of signs and symptoms and went to call 911. Should things get worse. ...................... ...................... ...................... ...................... ...................... ...................... ......... [facility] Consulted: Heide Silva ...................... ...................... ...................... ...................... ...................... ...................... ......... Disposition: Fulfilled Heide Silva MD [address] [place] [address],[address] [facility], [place], [address], [employer] 10/02/2025 16:03:24 OBGyn Episode No OBEpisode recorded.
--- OUTSIDE RECORDS SUMMARY | 2025-10-31 08:53 | XMS_ITS | Continuity of Care Document ---
Author Organization [facility] Address [address] [place] [address] Care Team Providers Care Knee Bolter Name Role Phone DICKSON SAEZ Primary Care Provider [facility] OTHER Assessment No assessment recorded. Plan of Treatment Reminders Order Date Submit Date Provider Last Modified By Organization Details Last Modified Time Details Appointments None recorded. Lab urinalysis , dipstick 2024 025 [facility], [address] [place] [address], [phone] 14:29:02 Referral None recorded. Procedures None recorded. [...] ([facility]) [address] [place], [address], 08/23/2025 18:05:32 08/21/2008/23/2025 URINE CULTU RE, UROLO GY SAKINA P result 1 COMMEN T Mixed uroge nital lizeth 10,00 0-25, 000 colon y formi ng units per mL Not Available [facility] ([facility]) [address] [place], [address], 08/23/2025 18:05:32 08/21/2008/21/2025 ONE SPECI MEN IDENT [...] [facility] ([facility]) [address] [facility], [place], [address], 08/22/2025 20:06:16 Result Notes None recorded. Medical Equipment None Reported. Allergies Allergen ID Allergen Name Allergen Category Reaction Reaction Severity Criticality Documentation Date Start Date Code Code System Note Provider Name and Address Organization Details Recorded Time cefuroxim e Not available Not available Not available Not available 08/26/2025 219 RxNorm Not Available [facility] - production 17:51:25 [...] Available No t Available Fasenra 30 mg/mL subcnickneou s syringe active Not Available Not Available No t Available Trelegy Ellipta 200 mcg-62.5 mcg-25 mcg powder for inhalation INHALE 1 PUFF BY MOUTH EVERY DAY active Not Available Not Available No t Available Vitals Date Recorded Body weight Body temperature Respiratory rate Heart rate Oxygen saturation Body height Systolic blood pressure Provider Name and Address Organization Details Last Updated DateTime 309771. 224 g 98.3 [degF] 20 /min 87 [...] ICD10 Code Diagnosis IMO Codes Diagnosis Note [id number] John Ferrer MD [facility] Medical [address] [address] 08/21/2025 12:52:47 08/21/2025 14:31:53 Acute low back pain 863104209 M54.50 [id number] Francisco Javier Arroyo MD [address] [address] 08/24/2025 12:03:23 08/24/2025 21:36:47 Flank pain [id number] R10.A3 [id number] Patient seen a few days prior with [...] Burnham Member ID Guarantor Name 08/24/2025 1 [facility] - DOS ON OR AFTER 2023 - DUAL ELIGIBLE - CORRECTION OPTIONS AND ONE CARE (MEDICARE REPLACEMENT/ADV ANTAGE - HMO) Gracy Mead [id number] Gracy Mar Mead Notes Date Note Type Note Provider Name and Address Organization Details Recorded Time 08/24/2025 text/html ROS as noted in the [facility] CRC Nurse Triage Notes (Holly [...] started on abx at the last visit. [facility] will be with member today. Member reported [...] to seek emergency care. Simran Hutchison RN Bag Machine Operator Helper Organization Information for Mauricio Souza Business Legal Name: [employer] Address: [address] [place] [address], Territory Sales Consultant: Carlos Woody MD CLIA No.: [id number] Bag Machine Operator Helper POC Test Results from Mauricio Souza Urine Dipstick (12:00:18) Urine leukocytes: 70LEU Urine nitrites: -NIT Urine urobilinogen: 0.2URO Urine protein: 15PRO Urine pH: 6.0pH Urine blood: -BLO Urine specific gravity: 1.010SG Urine ketones: -KET Urine bilirubin: -JOSI Urine glucose: -GLU .................. .................. .................. .................. .................. .................. .................. ............... Bag Machine Operator Helper Note From Mauricio Souza: SC6 responds to the listed address for a 65 yof w/ a c/c of UTI. Upon arrival on scene, pt is found seated in her recliner in the living area of her small and well-kept apartment. She is reclined w/ her feet up, alert, and tracks [facility] on approach. Her face is flushed, but she is otherwise generally well-appearing. No facial droop or one sided weakness are observed, no stridor sonorous respirations, or increased WOB are noted, and she is not bleeding anywhere. [facility] is on scene to help w/ translation, as pt is Arabic speaking only. Pt received a call from [employer] this morning informing her she was positive for UTI. Pt was seen by [facility] on of last week and [...] was told to have another visit from [facility] today for a retest of [...] reported. Ddx: UTI, kidney infection, kidney stone [facility] obtains vital signs and pt [...] Pt voided her bladder just prior to [facility] arrival, but caught the urine in a hat and left it for [facility] to test. [facility] performs UA and results are not convincing of UTI. 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 Pt agrees and chooses to be transported to [facility]. Pt is transported to [facility] by [facility]. [facility] is clear. Report completed by JAYY Souza [id number]. .................. .................. .................. .................. .................. .................. .................. ............... [facility] Consulted: David Arroyo .................. .................. .................. .................. .................. .................. .................. ............... Disposition: Fulfilled Francisco Javier Arroyo MD [address] [place] [address],[address], [place], [address], [employer] [facility] 08/24/2025 14:24:05 OBGyn Episode No OBEpisode recorded.
--- OUTSIDE RECORDS SUMMARY | 2025-10-31 08:53 | XMS_ITS | Continuity of Care Document ---
Author Organization [place] [facility] [employer] [place], [place] [employer] [facility] Address [address] [place] [address] Care Team Providers Care Manager Combination Name Role Phone DICKSON SAEZ Primary Care Provider [phone] [facility] OTHER Assessment No assessment recorded. Plan of Treatment Reminders Order Date Submit Date Provider Last Modified By Organization Details Last Modified Time Details Appointments None record ed. Lab None record ed. Referral None record ed. Procedures None record ed. Surgeries None record ed. Imaging None record ed. Medication Orders None record ed. Patient TargetsNo targets recorded. Patient InstructionsNo instructions recorded. Reason for Referral None Reported. Medical Equipment None Reported. Allergies Allergen ID Allergen Name Allergen Category Reaction Reaction Severity Criticality Documentation Date Start Date Code Code System Note Provider Name and Address Organization Details Recorded Time 53608 cefuroxim e Not available Not available Not available Not available 08/26/2025 2194 RxNorm Not Available [facility] - production 5 17:51:25 33401 morphine medicatio n Not available Not available Not available 10/02/2025 7052 RxNorm Not Available [facility] - production 5 17:51:25 Medications Name Sig Start Date [...] t Available Vitals Date Recorded Heart rate Respiratory rate Oxygen saturation Inhaled oxygen flow rate Body temperature Systolic And Diastolic Provider Name and Address Organization Details Last Updated DateTime 5 91 /min 18 /min 97 % 2 L/min 98 [degF] 116/80 mm[Hg] Not Available [facility] - production 5 20:56:53 Social History None recorded. Functional Status None recorded. Mental Status None recorded. Family History Nothing Reported. Medical History No medical history recorded. Gynecological HistoryNo gynecological history recorded. Obstetrics History GPAL:G 0 P 0 0 0 0 Past Encounters Encounter ID Performer Location Encounter Start Date Encounter Closed Date Diagnosis/Indication Diagnosis SNOMED-CT Code Diagnosis ICD10 Code Diagnosis IMO Codes Diagnosis Note [id number] Heide Silva MD [facility] Medical [address] [address] 10/02/2025 14:24:49 10/03/2025 12:01:21 Persistent cough [id number] R05.3 [id number] HEATHER PACHECO MD [facility] Medical [address] [address] 10/11/2025 20:30:29 10/13/2025 13:07:48 Acute exacerbation of chronic obstructive pulmonary disease 844504704 J44.1 095603 Evaluation in the field was performed by my car escort colleague, as noted above, I provided real-time [...] wheezes, rales, or increased work of breathing. Professor Of Communication And Writing reports oxygen saturation remained 97% on 2 [...] pain, hemoptysis , or failure to improve Health Concerns Section Related Observation LastModified by Organization Detai ls LastModified Time None Recorded Concern Status LastModified by Organization Details LastModified Time None Recorded Payers Encounter Date Sequence Insurance Name Policy Number Policy Burnham Covered Member ID Burnham Member ID Guarantor Name 10/11/2025 1 [facility] - DOS ON OR AFTER 2023 - DUAL ELIGIBLE - NURSING HOME OPTIONS AND ONE CARE (MEDICARE REPLACEMENT/ADV ANTAGE - HMO) Gracy Mead [id number] Gracy Mead Notes Date Note Type Note Provider Name and Address Organization Details Recorded Time 10/11/2025 text/html ROS as noted in the [...] Breathing Problems, Common Cold Referral taken via [employer] Patient calling in to place a referral [...] signs of when to seek emergency care. ................... ................... ................... ................... ................... ................... ................... ........ Professor Of Communication And Writing Note From Johny Perez: [place] the home [...] with her oxygen never dipping below 97%. [facility] was contacted and was happy that her oxygen is at 97%, and warned the patient about time spent in the emergency room, because the incident of Covid and flu this time of year. Patient was advised to talk to her renewable energy trader and her PCP about steps to be taken so she doesn t end up in the emergency room. [facility] Lab Orders: rapid flu (A+B): Not Performed Comment: pt refused rapid SARS CoV 2 Ag, QL IA, respiratory specimen: Not Performed Comment: pt refused ................... ................... ................... ................... ................... ................... ................... ........ [facility] Consulted: Heather Pacheco ................... ................... ................... ................... ................... ................... ................... ........ Disposition: Fulfilled HEATHER PACHECO MD [address] [facility],[address], [place], [address], [employer] 10/12/2025 15:23:13 OBGyn Episode No OBEpisode recorded.
--- OUTSIDE RECORDS SUMMARY | 2025-10-31 08:53 | XMS_ITS | Continuity of Care Document ---
Author Organization [place] - [employer] [facility] Address [address] [place] [phone] Care Team Providers Care Architectural Modeler Name Role Phone DICKSON SAEZ Primary Care Provider HIM CCA OTHER Assessment No assessment recorded. Plan of Treatment Reminders Order Date Submit Date Provider Last Modified By Organization Details Last Modified Time Details Appointments None recorded. Lab None recorded. Referral None recorded. Procedures None recorded. Surgeries None recorded. Imaging None recorded. Medication Orders doxycycline hyclate 100 mg tablet 2024 025 [facility]/Pharmacy #[id number], [address] [place], [address], 5 21:45:27 doxycycline hyclate [address] [facility]/Pharmacy #[id number], [address] [place], [address], 6 05:01:27 Patient TargetsNo targets recorded. Patient InstructionsNo instructions recorded. Reason for Referral None Reported. Medical Equipment None Reported. Allergies Allergen ID Allergen Name Allergen Category Reaction Reaction Severity Criticality Documentation Date Start Date Code Code System Note Provider Name and Address Organization Details Recorded Time 47660 cefuroxim e Not available Not available Not [...] No t Available Vitals Date Recorded Body height Body weight Respiratory rate Heart rate Body temperature Oxygen saturation Systolic And Diastolic Provider Name and Address Organization Details Last Updated DateTime 5 154.94 cm 971497. 264 g 18 /min 101 /min 99.6 [degF] 98 % 107/72 mm[Hg] Not Available [facility] - production 5 21:18:56 Social History None recorded. Functional Status None recorded. Mental Status None recorded. Family History Nothing Reported. Medical History No medical history recorded. Gynecological HistoryNo gynecological history recorded. Obstetrics History GPAL:G 0 P 0 0 0 0 Past Encounters Encounter ID Performer Location Encounter Start Date Encounter Closed Date Diagnosis/Indication Diagnosis SNOMED-CT Code Diagnosis ICD10 Code Diagnosis IMO Codes Diagnosis Note [id number] Heide Silva MD [facility] [address] [place] [address] 10/02/2025 14:24:49 10/03/2025 12:01:21 Persistent cough 706427707 R05.3 [id number] HEATHER PACHECO MD [facility] [address] [place] [address] 10/11/2025 20:30:29 10/13/2025 13:07:48 Acute exacerbation of chronic obstructive pulmonary disease 773281123 J44.1 [id number] Evaluation in the field was performed by my ocular pathologist colleague, as noted above, I provided real-time [...] wheezes, rales, or increased work of breathing. Engineer Soils reports oxygen saturation remained 97% on 2 [...] pain, hemoptysis , or failure to improve [id number] HEATHER PACHECO MD [facility] [address] [phone] 10/17/2025 20:53:06 10/18/2025 14:52:59 Chronic cough [id number] R05.3 [id number] Evaluation in the field was performed by my ocular pathologist colleague, as noted above, I provided real-time [...] diagnosed with post-infec tious cough. Today, her ASSOCIATE DOCTOR reports an intermitte ntly productive cough with [...] Member ID Burnham Member ID Guarantor Name 10/17/[address] [facility] - DOS ON OR AFTER 2023 - DUAL ELIGIBLE - SKILLED NURSING OPTIONS AND ONE CARE (MEDICARE REPLACEMENT/ADV ANTAGE - HMO) Gracy Mead [id number] Gracy Mead Notes Date Note Type Note Provider Name and Address Organization Details Recorded Time 10/17/2025 text/html ROS as noted in the [...] 65 y.o female complains of Cough Patients ASSOCIATE DOCTOR calling in to place a referral Patient seen byour service 10/11, was diagnosed with post viral cough, was no prescribed any antibioics or steroids at that time-- patient declined covid/clu testing ASSOCIATE DOCTOR calls as patient still has a productive [...] signs of when to seek emergency care./ .................. .................. .................. .................. .................. .................. .................. ............... Engineer So[employer] Note From Mitzi Urias: Sent to a [...] fever, or loc. Pt was evaluated at [facility] at the end of Aug (prescribed Azithromycin and Prednisone), and again on 10/07 and prescribed Prednisone per d/c paperwork. [facility] Pt states she has been taking Benzonatate for cough and using nebulizer every 3-4 hrs. BP:107/72, P:101, RR:18, SpO2:98% RA, T:99.6; Head: unremarkable; Lung sounds: clear bilaterally; Chest: bilateral chest and rib tenderness; Abdomen: soft, non-tender, no distention; Back: unremarkable; Extremities: unremarkable; Skin: pink, warm, dry; C consulted and ASSOCIATE DOCTOR is on another phone. Pt has an unopened prescription for Prednisone 60mg x 5 days. Pt is advised to start Prednisone 60mg tonight and take as prescribed. [facility] [place] 100mg PO. [facility] [place]'s pharmacy. Pt/ASSOCIATE DOCTOR advised to follow up with health analyst on Monday. 5 med rights verified; Doxycycline 100mg PO administered. Red flags discussed. Pt has no further questions. [facility] [place]ication Orders: doxycycline hyclate 100 mg tablet: Administered .................. .................. .................. .................. .................. .................. .................. ............... [facility] Consulted: Heather Pacheco .................. .................. .................. .................. .................. .................. .................. ............... Disposition: Fulfilled HEATHER PACHECO MD [address] [facility],[address], [place], [address], [employer] 10/17/2025 22:21:45 OBGyn Episode No OBEpisode recorded.
== END 2025-10-28 08:48 | disposition home or self-care (01) ==
LOC: HO.HOSX 08:47
PROVIDERS: Visit Provider Physician Assistant
DX: M54.12 Radiculopathy, cervical region (principal); Z96.612 Presence of left artificial shoulder joint
CPT/HCPCS: 73030

== ENCOUNTER 2025-10-28 11:16 | Outpatient (AMB) | payer OTHER, SELFPAY ==
--- NOTE | 2025-10-28 11:32 | MHC.OFFVIS ---
Intake Visit Reasons: Newprob-Pain of both shoulder Intake Note: Gracy is a 65 year old right hand dominant female who presents today for a evaluation of her bilateral shoulder pain. Patient reports ongoing pain for a couple years. Patient notices that her right should jerks on its own and her pain goes up to her neck and it gets numb. She states that her pain is equal on both sides. She states that she had a fall on her left shoulder about 2 years and she had surgery on her left shoulder as well. Patient reports she has tried Tylenol and Gabapentin with mild relief. Production Support Manager Services: Production Support Manager Present Production Support Manager Name: Melo ([phone]) Allergies Iodinated Contrast Media (IV Contrast Dye) Allergy (Verified 10/28/25 11:38) Facial Swelling HPI HPI Newprob-Pain of both shoulder: Details: The patient is a 65-year-old right-hand dominant female who presents to the office today for evaluation of bilateral shoulder pain. Patient underwent a reverse total shoulder arthroplasty on the left a few years ago at [facility] with Dr. Baker. Patient reports that after her reverse total shoulder replacement she sustained a fall landing on the left shoulder which resulted in displacement of the component. She was supposed to follow up with Dr. Baker for discussion on possible revision surgery. However, this did not happen. Patient denies any specific injury to the right upper extremity. She endorses posterior neck pain with radiation of pain into bilateral upper extremities accompanied by numbness and tingling. Patient has been seen by pain management earlier this month and was diagnosed with cervical radiculopathy and instructed to participate in physical therapy exercises and will return back to pain management for additional management status post a full course of physical therapy. [facility] Medical History Pre-op evaluation Polyarticular osteoarthritis Avascular necrosis of bones of both hips Dysuria Morbid obesity Avascular necrosis Physical exam Well woman exam RSV (acute bronchiolitis due to respiratory syncytial virus) Chest pain Palpitations URI (upper respiratory infection) Snoring Encounter for screening for malignant neoplasm of colon Lumbar pain Urinary incontinence Low blood pressure Allergic reaction UTI (urinary tract infection) Palpitations Morbid obesity with BMI of 40.0-44.9, adult Epigastric abdominal pain Oxygen dependent Hypothyroidism Hypersomnia ILD (interstitial lung disease) ROB on CPAP History of ESBL E. coli infection Obstructive sleep apnea Moderate recurrent major depression Urinary retention Acute and chronic respiratory failure with hypoxia COVID-19 Lupus (systemic lupus erythematosus) Polyarthralgia Neck mass Eosinophilia Severe asthma Asthma-COPD overlap syndrome Trigger finger of right hand Recurrent UTI Tachycardia Obesity Lumbar degenerative disc disease GERD (gastroesophageal reflux disease) Hemangioma Hypovitaminosis D Bipolar 1 disorder Depression with anxiety Insomnia COPD (chronic obstructive pulmonary disease) Surgical History Hx of hand surgery Hx of cardiac catheterization History of esophagogastroduodenoscopy (EGD) History of cystocele History of colonoscopy History of shoulder surgery History of carpal tunnel release History of hysterectomy History of section History of tonsillectomy Family History Father Prostate cancer Mother No problems noted. Sister Nasopharyngeal cancer Social History Household Members: None Household Members Other:: 1 Housing: Apartment Do you presently have visiting nurse or other home services: Yes (Has PUBLIC HEALTH NURSE) Alcohol intake: never Comment: sleeping Patient Tobacco Use Status: Former Tobacco user Years Smoked: 14 +/- e-Cigarette/Vaping Use: Never Used Second Hand Smoke Exposure: No Advance Directives Date on File: 01/08/21 service: No Current occupational status: disabled Current occupation: right and left handed--- HAS PUBLIC HEALTH NURSE SERVICES Cognitive needs: Yes (walker ) Hearing needs: No Vision needs: Yes Female Reproductive History Menstrual Age of Menarche: 12 Review of Systems Const All systems reviewed & are unremarkable except as noted in HPI and below Physical Exam Const General: cooperative, healthy appearing and no acute distress Resp Effort & Inspection: normal respiratory effort and able to speak in complete sentences Extrem Other: Bilateral shoulders: 90 degrees forward flexion abduction. Endorses numbness and tingling in bilateral upper extremities. Endorses weight reduction of pain in bilateral upper extremities with flexion and extension as as lateral flexion and rotation of the C-spine. Psych Appearance: grossly normal Mental Status: mental status grossly normal Attitude: cooperative Assessment & Plan Assessment & Plan (1) Radiculopathy, cervical: Code(s): M54.12 - Radiculopathy, cervical region Category: Medical Plan The patient is a 65-year-old right-hand dominant female who presents to the office today for evaluation of bilateral shoulder pain. Patient underwent a reverse total shoulder arthroplasty on the left a few years ago at [facility] with Dr. Baker. Patient reports that after her reverse total shoulder replacement she sustained a fall landing on the left shoulder which resulted in displacement of the component. She was supposed to follow up with Dr. Baker for discussion on possible revision surgery. However, this did not happen. Patient denies any specific injury to the right upper extremity. She endorses posterior neck pain with radiation of pain into bilateral upper extremities accompanied by numbness and tingling. Patient has been seen by pain management earlier this month and was diagnosed with cervical radiculopathy and instructed to participate in physical therapy exercises and will return back to pain management for additional management status post a full course of physical therapy. While the office today, I have recommended the patient continue with the pain management for treatment radiculopathy. We will continue with physical therapy. Her follow up with Orthopedics will be PRN, sooner if needed. X-rays of bilateral shoulders which were obtained while in the office today and were reviewed by me, Lina Moore PA-C, revealed left reverse total shoulder arthroplasty, right shoulder glenohumeral joint arthritis. No acute fracture or dislocation. Orders: Orders XR shoulder LT min 2V Today M25.519 - Pain in unspecified shoulder XR shoulder RT min 2V Today M25.519 - Pain in unspecified shoulder Coding Level of Care Code Est Pt Level 3 (38211) Diagnoses Radiculopathy, cervical M54.12
--- OUTSIDE RECORDS SUMMARY | 2025-10-28 15:18 | XMS_ITS | Continuity of Care Document ---
Author Name [facility], Medical Address [address] [place] [id number] Organization Unknown Address [address] [place] [address] Medications No known medications Problems No known problems
--- OUTSIDE RECORDS SUMMARY | 2025-10-28 15:18 | XMS_ITS | Clinical Summary ---
Author Organization [facility] Address [address] [address] Phone Care Team Providers Care Respiratory Technician Name Role Phone Pcp, Unknown Primary [...] on file Insurance MEDICARE REPLACEMENT [place] [id number] MEDICARE REPLACEMENT [place] [id number] MEDICARE REPLACEMENT MEDICARE REPLACEMENT MEDICARE REPLACEMENT MEDICARE REPLACEMENT MEDICARE REPLACEMENT MEDICARE REPLACEMENT [place] [address] [employer] MEDICARE REPLACEMENT JAIRO [place] [id number] Care Teams Respiratory Technician Relationship Specialty Start Date End Date Pcp, Unknown PCP - General 05/20/20 Additional Source Comments The information contained in this document represents components of the legal health record. It is not the complete legal health record.[facility]
--- OUTSIDE RECORDS SUMMARY | 2025-10-28 15:19 | XMS_ITS | Encounter Summary ---
Author Organization [facility] Address [address] [facility] [address] [place] [address] Phone Care Team Providers Care Company Marker Name Role Phone Pcp, Unknown Primary Care Provider Unavailabl e Encounter Details Date Type Department Care Team (Late st Contact Info) Description 06/20/2020 Transcribe Orders [facility] Specimen Processing [address] [place] [address] Anton Stoddard MD [address] [facility] [address], [address] [place] [address] [email or web address] Encounter for screening laboratory testing for COVID-19 [...] AM EDT) Specimen Source/Descriptio n NASOPHARYNGEAL SWAB [facility] Comment NASOPHARYNGEAL SWAB [facility] SARS-CoV 2 (COVID-19) PCR Not Detected Not Detected [facility] Comment: Negative results do not [...] ORDERABLE S Final Result Performing Organization Address City/[facility]/ZIP Co de Phone Number [address] [address] * COVID-19 PCR Order (06/20/2020 8:00 AM EDT) Specimen Source NASOPHARYNGEAL SWAB (LIFT OPERATOR) [facility] COVID Testing Status Sent to [facility] Lab [facility] Other 06/20/2020 8:00 AM EDT 06/20/2020 11:46 AM EDT us Anton Stoddard MD LAB GENERAL ORDERABLES Final Res ult Performing Organization Address City/[facility] Co de Phone Number [address] [address] documented in this encounter Visit Diagnoses Diagnosis Encounter for screening laboratory testing for COVID-19 virus- Primary documented in this encounter Additional Health Concerns Infection Onset Date Last Indicated Resolved Time CoV-Exposed Comment:Recent close contact 06/18/2020 06/18/2020 07/02/2020 1:24 AM EDT CoV-Exposed Comment:Recent close contact 07/10/2020 07/10/2020 07/24/2020 1:23 AM EDT documented as of this encounter Care Teams Company Marker Relationship Specialty Start Date End Date Pcp, Unknown PCP - General 05/20/20 documented as of this encounter Additional Source Comments The information contained in this document represents components of the legal health record. It is not the complete legal health record.[facility]
--- OUTSIDE RECORDS SUMMARY | 2025-10-28 15:19 | XMS_ITS | Encounter Summary ---
Author Organization [facility] Address [address] [facility] [address] [place] [address] Encounters * CPT with Medical instED at [employer] on 2025-10-12 { reasonForRequest : Breathing problems 02 stats dropping. , patientReports : , denies :[ Increased work of breathing/labored with or without fever , Unable to speak in full sentences without distress , Discoloration ofskin -cyanosis , Needs to sleep sitting up, can t catch breath , Shortness ofbreath in setting of confusion ], chiefComplaints : Breathing Problems, Common Cold , pmh : Coronary Artery Disease, COPD/Asthma, Severe Persistent Mental Illness (SPMI) , allergies : Cefuroxime , otherAllergies :null, p ainAssessment : , visitOutcome : , additionalComments": 65 y.o female complains of Breathing Problems, Common Cold\n\nReferral taken via [place] Int erpreter\nPatient calling in to place a referral\nPatient with ongoing URI with multiple ED visits\nPatient last seen in the ED on ; blood work and xray benign, covid/flu negative, sent home with steroids, no antibiotics\nPatient has laryngitis\nReports productive cough and shortness of breath\nPatient has prn o2, however, has been wearing 2L nc continuously with sats 88-90, typically 97%\ nPatient denies any edema\nNo fever/chills\n+nausea, denies vomiting or diarrhea\nMild headache, nodizziness\nShe has been taking OTC alkazeltzer day and night\nPatient would like to be evaluated\n\nI provided information on the mobile health provider response time and advised the patient and/or caregiver to monitor reported signs and symptoms. I discussed the warning signs of when to seek emergency care. } Dispatch the home of a 65-year-old female patient with breathing problems. Patient is a chronic COPD patient who was concerned because her oxygen due to 88. Patient lives on 2 L of oxygen at baseline. Patient was just in the hospital on , and got a full work up, including a negative chest x-ray, bloodwork, respiratory exams. Patient is alert and oriented times four, with no noticeable Neuro deficits. Patient has a strong and regular pulse rate with no swelling in the lower extremities. Patient has a history of cardiomyopathy. Patient???s lungs are clear bilaterally, and she is moving air very well. Patient has been eating and drinking. And having regular urinary output in bowel movements. At this visit, patient was fully assessed, and had her vitals taken, with her oxygen never dipping below 97%. [facility] was contacted and was happy that her oxygen is at 97%, and warned the patient about time spent in the emergency room, because the incident of Covid and flu this time of year. Patient was advised to talk to her tap grinder and her PCP about steps to be taken so she doesn???t end up in the emergency room. IV_(FLUIDS_AND/OR_MEDICATION), MEDICATION_IM, ORAL_MEDICATION, POC_BLOODWORK, POC_FLU_STREP, COVID_TEST Written by Medical [facility] on 2025-10-12
--- OUTSIDE RECORDS SUMMARY | 2025-10-28 15:19 | XMS_ITS | Continuity of Care Document ---
Author Name [facility], Medical Address [address] [place] [id number] Organization Unknown Address [address] [place] [address] Medications No known medications Problems No known problems
--- OUTSIDE RECORDS SUMMARY | 2025-10-28 15:19 | XMS_ITS | Encounter Summary ---
Author Organization [facility] Address [address] [facility] [address] [place] [address] Encounters * CPT with Medical instED at [employer] on 2025-10-18 { reasonForRequest : cough/chest pain , patientReports : ,& quot;denies :[ Increased work of breathing/labored with or without fever , Unable to speak in full sentences without distress , Discoloration of skin -cyanosis , Needs to sleep sitting up, can t catch breath , Shortness of breath in setting of confusion ], chiefComplaints : Cough , pmh : Coronary Artery Disease, COPD/Asthma, Severe Persistent Mental Illness (SPMI), Arrhythmias (e.g., Atrial Fibrillation) , allergies : Cefuroxime, Morphine , otherAllergies :null,&qu ot;painAssessment : , visitOutcome : , additionalComments": 65 y.o female complains of Cough\n\nPatients [facility] C[facility] L[facility]ER calling in to place a referral\nPatient seen byour service 10/11, was diagnosed with post viral cough, was no prescribed any antibioics orsteroids at that time-- patient declined covid/clu testing\nPCA calls as patient still has a productive persistent cough\nDenies chest conestion or wheezing\n+pleuritic chest pain from coughing, no shortness of breath\nBP 132/68 and 114/71, HR 134 and 114- post coughing\nDenies any palpitations, no left sided jaw, neck, shoulder or arm pain\nHistory of afib on eliquis\nNo fever/chills\nNo headaches or dizziness\nNo nausea,vomiting or diarrhea\nPatient taking benzonatate with no relief\nShe would like to be evaluated\n\nI provided information on the mobile health provider response time and advised the patient and/or caregiver to monitor reported signs and symptoms. I discussed the warning signs of when to seek emergency care./ } Sent to a call for a pt complaining of cough. [facility] arrives on scene, pt is alert and oriented, airway is patent. Language line used during visit. Pt complains of headache, productive cough w/green phlegm and sob for almost a month. Pt also complains of chest pain lasting 30-40 seconds associated with cough. Pt denies dizziness, runny nose, n/v/d, abd pain, fever, or loc. Pt was evaluated at [facility] at the end of Aug (prescribed Azithromycin and Prednisone), and again on 10/07 and prescribed Prednisone per d/c paperwork. Pt was evaluated on 10/11 by [facility]. Pt states she has beentaking Benzonatate for cough and using nebulizer every 3-4 hrs. BP:107/72, P:101, RR:18, SpO2:98% RA, T:99.6; Head: unremarkable; Lung sounds: clear bilaterally; Chest: bilateral chest and rib tenderness; Abdomen: soft, non-tender, no distention; Back: unremarkable; Extremities: unremarkable; Skin:pink, warm, dry; C consulted and [facility] [employer] [employer] [facility] [facility] is on another phone. Pt has an unopened prescription for Prednisone 60mg x 5 days. Pt is advised to start Prednisone 60mg tonight and take as prescribed. [facility] orders Doxycycline 100mg PO. [facility] sends script to pt's pharmacy. Pt/[facility] [employer] L[employer] advised to follow up with nutrition professor on Monday. 5 med rights verified; Doxycycline 100mg PO administered. Red flags discussed. Pt has no further questions. ORAL_MEDICATION, POC_FLU_STREP, COVID_TEST Written by Medical [facility] on 2025-10-18
== END 2025-10-28 12:17 | disposition home or self-care (01) ==
LOC: HO.HOS 11:17
PROVIDERS: PCP Internal Medicine; Visit Provider Physician Assistant
DX: M54.12 Radiculopathy, cervical region (principal)
CPT/HCPCS: 99213

== ENCOUNTER → 2025-10-28 11:19 | Outpatient (BNV) | payer OTHER, SELFPAY | PROVIDERS: Visit Provider Radiology Diagnostic Radiology | DX: M25.512 Pain in left shoulder (principal); M19.011 Primary osteoarthritis, right shoulder | CPT/HCPCS: 73030 ==